=== PATIENT | female | born 1995 | race Caucasian/White ===

== ENCOUNTER 2023-01-09 18:36 | Emergency (ER) | payer MEDICAID, SELFPAY ==
[2023-01-09 18:43] VITALS: BP 144/104; PULSE 133; RESP 18; TEMP 37.5; O2SAT 99; BMI 35.5
[2023-01-09 18:44] VITALS: BP 144/104; O2SAT 97
[2023-01-09 18:53] VITALS: PULSE 133
--- NOTE | 2023-01-09 19:03 | ED.DENTAL1 ---
HPI - Dental/Oral General Chief complaint: Dental/Oral Stated complaint: DENTAL PAIN Time Seen by Provider: 01/09/23 18:57 Source: patient Mode of arrival: ambulance Limitations: no limitations History of Present Illness HPI Narrative: patient is a 27-year-old female who presents to the emergency department for the evaluation of dental pain ongoing for over a week. Patient states she was seen at the [place] emergency department Last week and placed on Keflex. She states she has finished this antibiotic but she has had no improvement in her bilateral dental pain. She does not have a dentist appointment until February. She is not concerned for . She vapes daily. She has been using Motrin and Tylenol without improvement. She denies drainage from the teeth. Related Data Previous Rx's Medication Instructions Recorded clindamycin HCl 150 mg capsule 300 mg PO Q6H 10 days #80 caps 01/09/23 ketorolac 10 mg tablet 10 mg PO TID PRN pain #10 tabs 01/09/23 ondansetron 4 mg disintegrating 4 mg PO Q6H PRN nausea and 01/09/23 tablet vomiting #12 tabs Allergies Allergy/AdvReac Type Severity Reaction Status Date / Time Penicillins Allergy Mild Hives Verified 01/09/23 18:48 ibuprofen AdvReac Mild Verified 01/09/23 18:48 Sulfa (Sulfonamide AdvReac Mild Hives Verified 01/09/23 18:48 Antibiotics) Review of Systems ROS Constitutional Denies: fever or chills Ears, nose, mouth, and throat Denies: throat pain or neck pain Cardiovascular Denies: chest pain Respiratory Denies: shortness of breath or cough Gastrointestinal Denies: nausea or vomiting Integumentary/Breast Denies: rash Neurological Denies: headache Exam Narrative Exam Narrative: Gen.: Awake, alert, in no distress Head: Normocephalic, atraumatic ENT: Moist mucous membranes, generally poor dentition with multiple dental caries. Tenderness of tooth #17 and #32 with root exposed. No visible dental abscess. Soft tissue inflammation noted behind tooth #32 from jagged edge of tooth. No trismus or drooling. No redness or swelling under the tongue. Respiratory: No respiratory distress Cardio: tachycardia Extremities: Moves extremities equally, no injuries noted Psych: Normal mood and affect Neuro: No focal neuro deficit Skin: Warm, dry, intact Constitutional Vital Signs - 24 hr 01/09/23 18:43 01/09/23 19:13 01/09/23 18:44 Temperature 99.5 F Pulse Rate 109 H Pulse Rate [Monitor] 133 H Respiratory Rate 18 Blood Pressure 144/104 H Blood Pressure [Right Arm] 144/104 H Pulse Oximetry 99 98 97 Oxygen Delivery Method Room Air Course Vital Signs Vital signs: Vital Signs Temperature 99.5 F 01/09/23 18:43 Pulse Rate 133 H 01/09/23 18:43 Respiratory Rate 18 01/09/23 18:43 Blood Pressure 144/104 H 01/09/23 18:43 Pulse Oximetry 99 01/09/23 18:43 Oxygen Delivery Method Room Air 01/09/23 18:43 Temperature 99.5 F 01/09/23 18:43 Pulse Rate 109 H 01/09/23 19:13 Respiratory Rate 18 01/09/23 18:43 Blood Pressure 144/104 H 01/09/23 18:44 Pulse Oximetry 98 01/09/23 19:13 Oxygen Delivery Method Room Air 01/09/23 18:43 MDM - Dental/Oral MDM Narrative Medical decision making narrative: heart rate improved in the emergency Department and at discharge, heart rate is 109. patient with no complaints of chest pain or palpitations in the Emergency Room. She'll be treated for dental pain and dental caries, her pharmacy was contacted and she was on Keflex for her dental pain so we will prescribe a more appropriate antibiotic with clindamycin, Toradol and topical analgesia for home. She was given a referral for other dental clinics that may be able to see her earlier. At this time there is no evidence of dental abscess and the patient has no evidence of Ramon angina or other abnormalities in the mouth. Medical Records Attestation: I reviewed the patient's medical records. Discharge Plan Discharge Chief Complaint: Dental/Oral Clinical Impression: Dental caries, Toothache Patient Disposition: Home, Self-Care Time of Disposition Decision: 19:13 Condition: Good Prescriptions / Home Meds: New clindamycin HCl 150 mg capsule 300 mg PO Q6H 10 Days Qty: 80 0RF ketorolac 10 mg tablet 10 mg PO TID PRN (Reason: pain) Qty: 10 0RF ondansetron 4 mg tablet,disintegrating 4 mg PO Q6H PRN (Reason: nausea and vomiting) Qty: 12 0RF Instructions: Toothache (ED) Additional Instructions: Follow up with your dentist Stand Alone Forms: Portal Instructions Referrals: Shaikh Langley MD [Primary Care Provider] - 1 week
[2023-01-09 19:13] VITALS: PULSE 109; O2SAT 98
[2023-01-09] MEDS: KETOROLAC TROMETHAMINE 60 MG/2 ML VIAL IM (19:26)
[2023-01-09] MEDS: BENZOCAINE 30 ML, lidocaine HCL 15 ML MM (19:27)
[2023-01-09] MEDS: HYDROCODONE/ACETAMINOPHEN 5-325 MG TABLET 1 TAB PO (19:27)
== END 2023-01-09 19:46 | disposition home or self-care (01) ==
PROVIDERS: Emergency Provider Emergency Medicine; PCP Internal Medicine
DX: K02.9 Dental caries, unspecified (principal); K08.89 Other specified disorders of teeth and supporting structures; F17.290 Nicotine dependence, other tobacco product, uncomplicated
CPT/HCPCS: 96372; 99284

== ENCOUNTER 2023-01-24 07:35 | Emergency (ER) | payer MEDICAID, SELFPAY ==
[2023-01-24 07:40] VITALS: BP 154/96; PULSE 83; RESP 18; TEMP 36.8; O2SAT 98; BMI 35.5
--- NOTE | 2023-01-24 07:48 | ED_ITS ---
HPI - Abdominal Pain General Chief Complaint: Abdominal Pain Stated Complaint: FLANK PAIN Time Seen by Provider: 01/24/23 07:41 Source: patient Mode of arrival: walk-in History of Present Illness HPI narrative: The patient presented to us with right upper quadrant pain radiating to her flank area that got exacerbated over the last two days but she would have the pain a week ago and she recently was taking antibiotic and pain medication for her dental problem The patient does have some nausea and decreased intake because of the pain she denies any diarrhea She denies any fever chills or any other complaints and she denies any burning with urination Related Data Home Medications Medication Instructions Recorded Confirmed alprazolam 0.5 mg tablet 0.5 mg PO TID PRN anxiety 01/24/23 01/24/23 buspirone 7.5 mg tablet 7.5 mg PO TID 01/24/23 01/24/23 carboxymethyl 0.5 %-glycerin 1 1 drp ophthalmic (eye) Q6H PRN dry 01/24/23 01/24/23 %-polysorb 80 0.5 %-PF eye eye(s) dropperette (Refresh Optive Wes-3 (PF)) levomilnacipran 40 mg capsule,24 40 mg PO DAILY 01/24/23 01/24/23 hr,extended release (Fetzima) loratadine 10 mg tablet 10 mg PO Q24H 01/24/23 01/24/23 paliperidone 9 mg tablet,extended 9 mg PO Q24H 01/24/23 01/24/23 release 24 hr trazodone 150 mg tablet 300 mg PO DAILY PRN insomnia 01/24/23 01/24/23 Previous Rx's Medication Instructions Recorded ondansetron 4 mg disintegrating 4 mg PO Q6H PRN nausea and 01/09/23 tablet vomiting #12 tabs dicyclomine 20 mg tablet 20 mg PO QID PRN abdominal pain 01/24/23 #10 tabs famotidine 20 mg tablet (Pepcid) 20 mg PO BID 5 days #10 tabs 01/24/23 pantoprazole 40 mg granules 40 mg PO DAILY #30 ea 01/24/23 delayed-release for susp in packet (Protonix) Allergies Allergy/AdvReac Type Severity Reaction Status Date / Time Penicillins Allergy Mild Hives Verified 01/24/23 07:43 latex Allergy Unknown Verified 01/24/23 07:43 ibuprofen AdvReac Mild Verified 01/24/23 07:43 Sulfa (Sulfonamide AdvReac Mild Hives Verified 01/24/23 07:43 Antibiotics) Review of Systems ROS Status of ROS 10 or more systems reviewed and unremarkable except as noted in history and below [facility] Social History Smoking status: Never smoker Exam Narrative Exam Narrative: Nurses notes and vital signs reviewed and patient is not hypoxic. General: Well-appearing and in no apparent distress. Skin: Warm, dry, no pallor noted. No rash. Head: Normocephalic, atraumatic. Neck: Supple, non-tender. Eye: Pupils are equal, round and EOMI. No scleral icterus. Ears, Nose, Mouth, and Throat: TM are clear, no nasal mucosal hypertrophy. Oral mucosa is moist, no posterior oropharynx erythema, uvula is mid-line Cardiovascular: Regular Rate and Rhythm without murmur, gallop or rub. Respiratory: No accessory muscle use or respiratory distress. Lungs are clear to auscultation, no wheezing, rales or rhonchi Chest Wall: no tenderness Back: No midline thoracic or lumbar vertebral tenderness. No CVA tenderness Musculoskeletal: normal ROM, no calf or popliteal tenderness, no lower extremity edema/swelling GI: Abdomen is soft, Tenderness. Patient of the upper and lower quadrant of the abdomen with negative Herring and negative McBurney No masses appreciated. No tenderness to palpation. No rebound, guarding, or rigidity noted. Neurological: A&O x4. No cranial nerve dysfunction observed. No truncal ataxia. Moves all extremities. Sensation intact. Psychiatric: Cooperative and interactive. Normal mood and affect. Constitutional Vital Signs, click to edit/add: Last Vital Signs Temp 98.2 F 01/24/23 07:40 Pulse 83 01/24/23 07:40 Resp 18 01/24/23 07:40 BP 154/96 H 01/24/23 07:40 Pulse Ox 98 01/24/23 07:40 O2 Del Method Room Air 01/24/23 07:40 Course Vital Signs Vital signs: Vital Signs Temperature 98.2 F 01/24/23 07:40 Pulse Rate 83 01/24/23 07:40 Respiratory Rate 18 01/24/23 07:40 Blood Pressure 154/96 H 01/24/23 07:40 Pulse Oximetry 98 01/24/23 07:40 Oxygen Delivery Method Room Air 01/24/23 07:40 Temperature 98.2 F 01/24/23 07:40 Pulse Rate 83 01/24/23 07:40 Respiratory Rate 18 01/24/23 07:40 Blood Pressure 154/96 H 01/24/23 07:40 Pulse Oximetry 98 01/24/23 07:40 Oxygen Delivery Method Room Air 01/24/23 07:40 MDM - Abdominal Pain MDM Narrative Medical decision making narrative: The patient's CBC and chemistry showed no significant pathology urinalysis showed no urinary tract infection CAT scan of abdomen and pelvis shows no acute pathology as well and the patient presentation right now is mostly secondary to gastritis Patient was treated in the Emergency Room with gastrointestinal cocktail as well as sucralfate discharge home with Pepcid Protonix as well since of diet with follow-up with her primary care doctor for gastrointestinal referral The patient to come back in case the new symptoms of concern The patient is to followup with primary care physician in next 2-3 days or to return to the emergency department should any of the signs or symptoms worsen or new symptoms develop. The patient agrees with the following Diagnosis and Treatment plan and the patient will be discharged home. Lab Data Labs: Lab Results 01/24/23 01/24/23 Range/Units 07:49 08:07 WBC 10.1 (4.0-11.0) 10^3/uL RBC 4.30 (4.20-5.40) 10^6/uL Hgb 12.6 (12.0-16.0) g/dL Hct 35.7 L (36.0-48.0) % MCV 83.0 (81.0-99.0) fL MCH 29.3 (26.7-34.0) pg MCHC 35.3 H (29.9-35.2) g/dL RDW 11.9 (11.0-15.0) % Plt Count 284 (150-450) 10^3/uL MPV 8.7 L (9.5-13.5) fL Neut % (Auto) 62.9 (43.0-75.0) % Lymph % (Auto) 28.1 (20.5-60.0) % [place] % (Auto) 7.0 (1.7-12.0) % Eos % (Auto) 1.4 (0.9-7.0) % Baso % (Auto) 0.3 (0.2-2.0) % Neut # (Auto) 6.4 (1.4-6.5) 10^3/uL Lymph # (Auto) 2.8 (1.2-3.8) 10^3/uL [place] # (Auto) 0.7 (0.3-0.8) 10^3/uL Eos # (Auto) 0.1 (0.0-0.7) 10^3/uL Baso # (Auto) 0.0 (0.0-0.1) 10^3/uL Abs Immat Gran (auto) 0.03 (0.00-0.03) 10^3/uL Imm/Tot Granulo (auto) 0.3 (0.0-0.5) % Sodium 137 (136-145) mmol/L Potassium 3.9 (3.5-5.1) mmol/L Chloride 102 (98-107) mmol/L Carbon Dioxide 24.4 (21.0-32.0) mmol/L Anion Gap 14.5 BUN 8.0 (7.0-18.0) mg/dL Creatinine 0.80 (0.55-1.02) mg/dL Est GFR ( Amer) >60 (>=60) Est GFR (Non-Af Amer) >60 (>=60) BUN/Creatinine Ratio 10.0 Glucose 112 H (74-106) mg/dL Calcium 9.2 (8.5-10.1) mg/dL Total Bilirubin 0.2 (0.2-1.0) mg/dL AST 21 (15-37) U/L ALT 50 (14-59) U/L Alkaline Phosphatase 139 H (46-116) U/L Troponin I High Sens <4.0 L (4.0-51.3) pg/mL Total Protein 8.0 (6.4-8.2) g/dL Albumin 3.7 (3.4-5.0) g/dL Globulin 4.3 g/dL Albumin/Globulin Ratio 0.9 Lipase 80.0 (73.0-393.0) U/L Urine Color Lt. yellow (YELLOW) Urine Clarity Clear (CLEAR) Urine pH 6.0 (5.0-9.0) Ur Specific [place] 1.020 (1.005-1.025) Urine Protein Negative (NEG/TRACE) mg/dL Urine Glucose (UA) Negative (NEGATIVE) mg/dL Urine Ketones Negative (NEGATIVE) mg/dL Urine Occult Blood Negative (NEGATIVE) Urine Nitrite Negative (NEGATIVE) Urine Bilirubin Negative (NEGATIVE) Urine Urobilinogen 0.2 (0.2-1.0) EU/dL Ur Leukocyte Esterase Negative (NEGATIVE) Discharge Plan Discharge Chief Complaint: Abdominal Pain Clinical Impression: Gastritis Patient Disposition: Home, Self-Care Time of Disposition Decision: 09:23 Condition: Good Prescriptions / Home Meds: New famotidine [Pepcid] 20 mg tablet 20 mg PO BID 5 Days Qty: 10 0RF pantoprazole [Protonix] [address] for susp in packet 40 mg PO DAILY Qty: 30 0RF dicyclomine 20 mg tablet 20 mg PO QID PRN (Reason: abdominal pain) Qty: 10 0RF Discontinued clindamycin HCl 150 mg capsule 300 mg PO Q6H 10 Days Qty: 80 0RF ketorolac 10 mg tablet 10 mg PO TID PRN (Reason: pain) Qty: 10 0RF No Action alprazolam 0.5 mg tablet 0.5 mg PO TID PRN (Reason: anxiety) buspirone 7.5 mg tablet 7.5 mg PO TID Refresh Optive Wes-3 (PF) 0.5-1-0.5 % dropperette 1 drp OPHTHALMIC (EYE) Q6H PRN (Reason: dry eye(s)) Fetzima 40 mg capsule,extended release 24 hr 40 mg PO DAILY loratadine 10 mg tablet 10 mg PO Q24H paliperidone 9 mg tablet extended release 24hr 9 mg PO Q24H trazodone 150 mg tablet 300 mg PO DAILY PRN (Reason: insomnia) ondansetron 4 mg tablet,disintegrating 4 mg PO Q6H PRN (Reason: nausea and vomiting) Qty: 12 0RF Instructions: Gastritis (ED), GI (Gastrointestinal) Soft Diet (ED) Stand Alone Forms: Portal Instructions Referrals: Shaikh Langley MD [Primary Care Provider] - 1 week
--- NOTE | 2023-01-24 07:52 | ECG_ITS ---
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
--- NOTE | 2023-01-24 07:56 | CT_ITS ---
[address] [address] Patient Name: VERNELL CARMEN MRN: [id number] date: 1995 Sex: F Assigned Patient Location: ER Current Patient Location: ER Accession/Order Number: [id number] Exam Date: 01/24/2023 08:28 Report Date: 01/24/2023 09:02 At the request of: MELISSA BOWERS Procedure: CT abdomen pelvis wo con CT abdomen pelvis wo con, 01/24/2023 8:28 AM EDT INDICATION: Right upper quadrant pain and flank pain COMPARISON: Contrast-enhanced CT scan of the abdomen and pelvis 09/18/2021 TECHNIQUE: Axial images of the abdomen and pelvis were obtained without IV contrast. Multiplanar reformatted images were generated and reviewed as needed. Dose reduction techniques were achieved by using automated exposure control and/or adjustment of mA and/or kV according to patient size and/or use of iterative reconstruction technique. FINDINGS: No lobar consolidation or effusion. Cholecystectomy. The liver, pancreas, spleen and adrenals are unremarkable on a non contrast scan. No hydronephrosis or nephrolithiasis. No ureteral or urinary bladder calculi. Uterus and adnexa unremarkable on a noncontrast scan. No aortic aneurysm. No bowel obstruction or acute focal inflammation. Normal appendix. No pneumatosis, pneumoperitoneum or ascites. No mesenteric or retroperitoneal lymphadenopathy. No acute fracture or dislocation. CT/CT abdomen pelvis wo con IMPRESSION: No acute findings. Electronically authenticated by: LAUREN AMAYA Date: 01/24/2023 09:02
[2023-01-24 07:59] LABS: Bilirubin Urine NEGATIVE (NEGATIVE); Blood Urine NEGATIVE (NEGATIVE); Clarity Urine CLEAR (CLEAR); Color Urine LT. YELLOW (YELLOW); Glucose Urine UA NEGATIVE (NEGATIVE); Ketones Urine NEGATIVE (NEGATIVE); Leukocyte Esterase Urine NEGATIVE (NEGATIVE); Nitrite Urine NEGATIVE (NEGATIVE); Protein Urine NEGATIVE (NEG/TRACE); Urobilinogen Urine 0.2 EU/dL (0.2-1.0)
[2023-01-24 08:00] LABS: Urine Microscopic Indicated NO
[2023-01-24] MEDS: 0.9 % SODIUM CHLORIDE 1,000 ML 1000 ML IV (08:16)
[2023-01-24] MEDS: FAMOTIDINE/PF 20 MG/2 ML VIAL IV (08:17)
[2023-01-24] MEDS: MORPHINE SULFATE 2 MG/ML SYRINGE IV (08:17)
[2023-01-24] MEDS: ONDANSETRON PF 4 MG/2 ML VIAL IV (08:17)
[2023-01-24 08:30] LABS: Alanine Aminotransferase 50 U/L (14-59); Albumin Globulin Ratio 0.9; Albumin Level 3.7 g/dL (3.4-5.0); Alkaline Phosphatase 139 U/L (46-116); Anion Gap 14.5; Aspartate Amino Transferase 21 U/L (15-37); Bilirubin Total 0.2 mg/dL (0.2-1.0); Calcium 9.2 mg/dL (8.5-10.1); Carbon Dioxide 24.4 mmol/L (21.0-32.0); Chloride 102 mmol/L (98-107); Estimated GFR (African America >60 (>=60); Estimated GFR (Non-African Ame >60 (>=60); Globulin 4.3 g/dL; Glucose 112 mg/dL (74-106); Potassium 3.9 mmol/L (3.5-5.1); Sodium 137 mmol/L (136-145); Troponin I High Sensitivity <4.0 pg/mL (4.0-51.3)
[2023-01-24 08:35] LABS: Basophils Percent Auto 0.3 % (0.2-2.0); Eosinophils Absolute Auto 0.1 10^3/uL (0.0-0.7); Eosinophils Percent Auto 1.4 % (0.9-7.0); Hematocrit 35.7 % (36.0-48.0); Hemoglobin 12.6 g/dL (12.0-16.0); Immature Granulocytes Abs Auto 0.03 10^3/uL (0.00-0.03); Immature Granulocytes Pct Auto 0.3 % (0.0-0.5); Lymphocytes Absolute Auto 2.8 10^3/uL (1.2-3.8); Lymphocytes Percent Auto 28.1 % (20.5-60.0); Mean Corpuscular HGB Conc 35.3 g/dL (29.9-35.2); Mean Corpuscular Hemoglobin 29.3 pg (26.7-34.0); Mean Platelet Volume 8.7 fL (9.5-13.5); Monocytes Absolute Auto 0.7 10^3/uL (0.3-0.8); Neutrophils Absolute Auto 6.4 10^3/uL (1.4-6.5); Neutrophils Percent Auto 62.9 % (43.0-75.0); Platelet Count 284 10^3/uL (150-450); Red Cell Distribution Width 11.9 % (11.0-15.0); White Blood Count 10.1 10^3/uL (4.0-11.0)
[2023-01-24 09:30] LABS: HCG Qualitative Urine* NEGATIVE (NEGATIVE)
[2023-01-24] MEDS: lidocaine HCL 15 ML, MAG HYDROX/ALUMINUM HYD/SIMETH 30 ML, HYOSCYAMINE SULFATE 0.25 MG PO (09:36)
[2023-01-24 09:37] VITALS: BP 126/90
[2023-01-24] MEDS: SUCRALFATE 1 GM TABLET PO (09:37)
== END 2023-01-24 09:47 | disposition home or self-care (01) ==
PROVIDERS: Emergency Provider Emergency Medicine; PCP Internal Medicine
DX: K29.70 Gastritis, unspecified, without bleeding (principal); Z79.899 Other long term (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 therapy
CPT/HCPCS: 36415; 74176; 80053; 81003; 83690; 84484; 84703; 85025; 93005; 96361; 96374; 96375; 99285

== ENCOUNTER 2023-02-05 15:28 | Emergency (ER) | payer MEDICAID, SELFPAY ==
[2023-02-05 15:32] VITALS: BP 139/106; PULSE 110; RESP 18; TEMP 36.6; O2SAT 98; BMI 35.5
--- NOTE | 2023-02-05 15:47 | ED.DENTAL1 ---
HPI - Dental/Oral General Chief complaint: Dental/Oral Stated complaint: DENTAL PAIN Time Seen by Provider: 02/05/23 15:38 Source: patient Mode of arrival: walk-in Limitations: no limitations History of Present Illness HPI Narrative: patient is a 27-year-old female presents to the emergency department for the evaluation of ongoing dental pain. Patient was seen by myself one month ago for the same symptoms. She denies any new symptoms of swelling or drainage. No fevers or vomiting. She has a broken tooth with root exposure. She continues to smoke. She is not concerned for . She presents to the Emergency Room requesting pain control. She has appointment in two weeks with a dentist. She is ALLERGIC to ibuprofen. Related Data Home Medications Medication Instructions Recorded Confirmed alprazolam 0.5 mg tablet 0.5 mg PO TID PRN anxiety 01/24/23 01/24/23 buspirone 7.5 mg tablet 7.5 mg PO TID 01/24/23 01/24/23 carboxymethyl 0.5 %-glycerin 1 1 drp ophthalmic (eye) Q6H PRN dry 01/24/23 01/24/23 %-polysorb 80 0.5 %-PF eye eye(s) dropperette (Refresh Optive Wes-3 (PF)) levomilnacipran 40 mg capsule,24 40 mg PO DAILY 01/24/23 01/24/23 hr,extended release (Fetzima) loratadine 10 mg tablet 10 mg PO Q24H 01/24/23 01/24/23 paliperidone 9 mg tablet,extended 9 mg PO Q24H 01/24/23 01/24/23 release 24 hr trazodone 150 mg tablet 300 mg PO DAILY PRN insomnia 01/24/23 01/24/23 Previous Rx's Medication Instructions Recorded ondansetron 4 mg disintegrating 4 mg PO Q6H PRN nausea and 01/09/23 tablet vomiting #12 tabs dicyclomine 20 mg tablet 20 mg PO QID PRN abdominal pain 01/24/23 #10 tabs famotidine 20 mg tablet (Pepcid) 20 mg PO BID 5 days #10 tabs 01/24/23 pantoprazole 40 mg granules 40 mg PO DAILY #30 ea 01/24/23 delayed-release for susp in packet (Protonix) ondansetron 4 mg disintegrating 4 mg PO Q6H PRN nausea and 02/05/23 tablet vomiting #12 tabs Allergies Allergy/AdvReac Type Severity Reaction Status Date / Time Penicillins Allergy Mild Hives Verified 02/05/23 15:35 latex Allergy Unknown Verified 02/05/23 15:35 ibuprofen AdvReac Mild Verified 02/05/23 15:35 Sulfa (Sulfonamide AdvReac Mild Hives Verified 02/05/23 15:35 Antibiotics) Review of Systems ROS Constitutional Denies: fever or chills Ears, nose, mouth, and throat Denies: throat pain Cardiovascular Denies: chest pain Respiratory Denies: shortness of breath or cough Gastrointestinal Denies: nausea or vomiting Genitourinary Denies: painful urination Musculoskeletal Denies: back pain Integumentary/Breast Denies: rash Neurological Denies: headache PFSH PFSH Social History Smoking status: Former smoker Exam Narrative Exam Narrative: Gen.: Awake, alert, in no distress Head: Normocephalic, atraumatic ENT: Moist mucous membranes, multiple dental caries with tooth #18 eroded and root exposed. No visible abscess, no swelling or redness under the tongue. No trismus or drooling. Clear speech. Respiratory: No respiratory distress Extremities: Moves extremities equally, no injuries noted Psych: Normal mood and affect Neuro: No focal neuro deficit Skin: Warm, dry, intact Constitutional Vital Signs, click to edit/add: Last Vital Signs Temp 97.9 F 02/05/23 15:32 Pulse 110 H 02/05/23 15:32 Resp 18 02/05/23 15:32 BP 139/106 H 02/05/23 15:32 Pulse Ox 98 02/05/23 15:32 O2 Del Method Room Air 02/05/23 15:32 Course Vital Signs Vital signs: Vital Signs Temperature 97.9 F 02/05/23 15:32 Pulse Rate 110 H 02/05/23 15:32 Respiratory Rate 18 02/05/23 15:32 Blood Pressure 139/106 H 02/05/23 15:32 Pulse Oximetry 98 02/05/23 15:32 Oxygen Delivery Method Room Air 02/05/23 15:32 Temperature 97.9 F 02/05/23 15:32 Pulse Rate 110 H 02/05/23 15:32 Respiratory Rate 18 02/05/23 15:32 Blood Pressure 139/106 H 02/05/23 15:32 Pulse Oximetry 98 02/05/23 15:32 Oxygen Delivery Method Room Air 02/05/23 15:32 MDM - Dental/Oral MDM Narrative Medical decision making narrative: dental analgesia applied, patient given a pain medication in the Emergency Roomm. She is discharged home to continue topical analgesia. Follow-up with dentist and return to the Emergency Room symptoms change or worsen. I, Dr Hoang, have reviewed the above progress note and course of action in the ER; agree with the above. I have personally Discussed this patient with the PA, gone over history and physical, and discussed disposition and treatment plan with the PA Discharge Plan Discharge Chief Complaint: Dental/Oral Clinical Impression: Dental caries, Toothache Patient Disposition: Home, Self-Care Time of Disposition Decision: 15:45 Condition: Good Prescriptions / Home Meds: New ondansetron 4 mg tablet,disintegrating 4 mg PO Q6H PRN (Reason: nausea and vomiting) Qty: 12 0RF No Action alprazolam 0.5 mg tablet 0.5 mg PO TID PRN (Reason: anxiety) buspirone 7.5 mg tablet 7.5 mg PO TID Refresh Optive Wes-3 (PF) 0.5-1-0.5 % dropperette 1 drp OPHTHALMIC (EYE) Q6H PRN (Reason: dry eye(s)) Fetzima 40 mg capsule,extended release 24 hr 40 mg PO DAILY loratadine 10 mg tablet 10 mg PO Q24H paliperidone 9 mg tablet extended release 24hr 9 mg PO Q24H trazodone 150 mg tablet 300 mg PO DAILY PRN (Reason: insomnia) famotidine [Pepcid] 20 mg tablet 20 mg PO BID 5 Days Qty: 10 0RF pantoprazole [Protonix] [address] for susp in packet 40 mg PO DAILY Qty: 30 0RF dicyclomine 20 mg tablet 20 mg PO QID PRN (Reason: abdominal pain) Qty: 10 0RF ondansetron 4 mg tablet,disintegrating 4 mg PO Q6H PRN (Reason: nausea and vomiting) Qty: 12 0RF Instructions: Toothache (ED) Additional Instructions: Follow up dentist as scheduled Stand Alone Forms: Portal Instructions Referrals: Shaikh Langley MD [Primary Care Provider] - 1 week Discharge Date/Time: 02/05/23 16:26
[2023-02-05] MEDS: HYDROCODONE/ACETAMINOPHEN 5-325 MG TABLET 1 TAB PO (16:16)
[2023-02-05] MEDS: BENZOCAINE 30 ML, lidocaine HCL 15 ML MM ×2 (16:16→16:17)
== END 2023-02-05 16:26 | disposition home or self-care (01) ==
PROVIDERS: Emergency Provider Emergency Medicine; PCP Internal Medicine
DX: K02.9 Dental caries, unspecified (principal); F17.210 Nicotine dependence, cigarettes, uncomplicated; Z79.899 Other long term (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 therapy
CPT/HCPCS: 99283

== ENCOUNTER 2023-02-18 16:05 | Outpatient (OUT) | payer MEDICAID, SELFPAY ==
[2023-02-18 16:43] LABS: Estimated Average Glucose 91 mg/dL; Glycohemoglobin A1C 4.8 % (4.5-6.2)
[2023-02-18 16:44] LABS: Alanine Aminotransferase 185 U/L (14-59); Albumin Globulin Ratio 0.9; Albumin Level 3.5 g/dL (3.4-5.0); Alkaline Phosphatase 232 U/L (46-116); Anion Gap 13.3; Aspartate Amino Transferase 63 U/L (15-37); BUN Creatinine Ratio 9.7; Bilirubin Total 0.2 mg/dL (0.2-1.0); Calcium 8.9 mg/dL (8.5-10.1); Carbon Dioxide 26.4 mmol/L (21.0-32.0); Chloride 102 mmol/L (98-107); Estimated GFR (African America >60 (>=60); Estimated GFR (Non-African Ame >60 (>=60); Globulin 4.1 g/dL; Glucose 116 mg/dL (74-106); Potassium 3.7 mmol/L (3.5-5.1); Sodium 138 mmol/L (136-145); Total Protein 7.6 g/dL (6.4-8.2)
== END 2023-02-18 16:06 | disposition home or self-care (01) ==
PROVIDERS: PCP Internal Medicine; Visit Provider Internal Medicine
DX: K52.9 Noninfective gastroenteritis and colitis, unspecified (principal); Z13.1 Encounter for screening for diabetes mellitus
CPT/HCPCS: 36415; 80053; 83036

== ENCOUNTER 2023-03-22 15:31 | Emergency (ER) | payer MEDICAID, SELFPAY ==
[2023-03-22 15:37] VITALS: BP 115/87; PULSE 105; RESP 18; TEMP 36.5; O2SAT 98; BMI 39.1
[2023-03-22 18:46] LABS: HCG Qualitative Urine* NEGATIVE (NEGATIVE)
[2023-03-22 18:47] LABS: Bilirubin Urine NEGATIVE (NEGATIVE); Blood Urine NEGATIVE (NEGATIVE); Clarity Urine CLEAR (CLEAR); Color Urine LT. YELLOW (YELLOW); Glucose Urine UA NEGATIVE (NEGATIVE); Ketones Urine NEGATIVE (NEGATIVE); Leukocyte Esterase Urine NEGATIVE (NEGATIVE); Nitrite Urine NEGATIVE (NEGATIVE); Protein Urine NEGATIVE (NEG/TRACE); Urobilinogen Urine 0.2 EU/dL (0.2-1.0)
[2023-03-22 18:49] LABS: Urine Microscopic Indicated NO
--- NOTE | 2023-03-22 19:17 | XR_ITS ---
The [address] [address] Patient Name: VERNELL CARMEN MRN: [id number] date: 1995 Sex: F Assigned Patient Location: ER Current Patient Location: ER Accession/Order Number: [id number] Exam Date: 03/22/2023 19:42 Report Date: 03/22/2023 19:57 At the request of: SKIP KELLEY Procedure: XR acute abdomen series EXAMINATION: XR acute abdomen series HISTORY: Vomiting and diarrhea COMPARISON: None. TECHNIQUE: 4 views FINDINGS: The lung parenchyma is free of consolidation or infiltrate. No pneumothorax or pleural effusion. The cardiac, mediastinal and hilar contours are normal. Surgical clips within the right upper quadrant. The bowel gas pattern is nonobstructed. The visualized osseous structures exhibit no gross abnormality. XR/XR acute abdomen series IMPRESSION: No acute abnormality. Electronically authenticated by: DANNI QUINONES Date: 03/22/2023 19:57
[2023-03-22 19:19] LABS: Basophils Percent Auto 0.2 % (0.2-2.0); Eosinophils Absolute Auto 0.2 10^3/uL (0.0-0.7); Eosinophils Percent Auto 1.7 % (0.9-7.0); Hematocrit 35.7 % (36.0-48.0); Hemoglobin 12.3 g/dL (12.0-16.0); Immature Granulocytes Abs Auto 0.05 10^3/uL (0.00-0.03); Immature Granulocytes Pct Auto 0.5 % (0.0-0.5); Lymphocytes Absolute Auto 3.1 10^3/uL (1.2-3.8); Lymphocytes Percent Auto 31.3 % (20.5-60.0); Mean Corpuscular HGB Conc 34.5 g/dL (29.9-35.2); Mean Corpuscular Hemoglobin 28.9 pg (26.7-34.0); Mean Platelet Volume 8.7 fL (9.5-13.5); Monocytes Absolute Auto 0.6 10^3/uL (0.3-0.8); Monocytes Percent Auto 5.9 % (1.7-12.0); Neutrophils Percent Auto 60.4 % (43.0-75.0); Platelet Count 285 10^3/uL (150-450); Red Blood Count 4.25 10^6/uL (4.20-5.40); Red Cell Distribution Width 11.9 % (11.0-15.0); White Blood Count 9.9 10^3/uL (4.0-11.0)
[2023-03-22 19:35] LABS: Alanine Aminotransferase 74 U/L (14-59); Albumin Globulin Ratio 0.9; Albumin Level 3.7 g/dL (3.4-5.0); Alkaline Phosphatase 181 U/L (46-116); Anion Gap 15.3; Aspartate Amino Transferase 37 U/L (15-37); BUN Creatinine Ratio 8.1; Bilirubin Direct 0.1 mg/dL (0.0-0.2); Bilirubin Total 0.2 mg/dL (0.2-1.0); Calcium 8.6 mg/dL (8.5-10.1); Chloride 106 mmol/L (98-107); Estimated GFR (African America >60 (>=60); Estimated GFR (Non-African Ame >60 (>=60); Globulin 4.2 g/dL; Glucose 100 mg/dL (74-106); Potassium 3.3 mmol/L (3.5-5.1); Sodium 142 mmol/L (136-145); Total Protein 7.9 g/dL (6.4-8.2)
[2023-03-22 19:37] LABS: Lactate/Lactic Acid 1.1 mmol/L (0.4-2.0)
[2023-03-22] MEDS: 0.9 % SODIUM CHLORIDE 1,000 ML 1000 ML IV (19:40)
--- NOTE | 2023-03-22 20:33 | ED.GENADUL1 ---
HPI - General Adult General Chief complaint: Abdominal Pain Stated complaint: Abdominal Pain, Diarrhea Time Seen by Provider: 03/22/23 19:08 Source: patient Mode of arrival: walk-in Limitations: no limitations History of Present Illness HPI narrative: Developed diarrhea 5 days ago and then this morning she vomited. The patient said that her significant other had diarrhea for two weeks before it stopped. The patient denied any antibiotic use and denied and recent travel. She had been eating and taking in extra fluids orally since the symptoms started until she vomited this morning. She complains of upper abdominal pain. No history of pancreatitis, UC, Crohn's or IBS but she was previously diagnosed with gastritis. No fever or chills. Related Data Home Medications Medication Instructions Recorded Confirmed alprazolam 0.5 mg tablet 0.5 mg PO TID PRN anxiety 01/24/23 01/24/23 buspirone 7.5 mg tablet 7.5 mg PO TID 01/24/23 01/24/23 carboxymethyl 0.5 %-glycerin 1 1 drp ophthalmic (eye) Q6H PRN dry 01/24/23 01/24/23 %-polysorb 80 0.5 %-PF eye eye(s) dropperette (Refresh Optive Wes-3 (PF)) levomilnacipran 40 mg capsule,24 40 mg PO DAILY 01/24/23 01/24/23 hr,extended release (Fetzima) loratadine 10 mg tablet 10 mg PO Q24H 01/24/23 01/24/23 paliperidone 9 mg tablet,extended 9 mg PO Q24H 01/24/23 01/24/23 release 24 hr trazodone 150 mg tablet 300 mg PO DAILY PRN insomnia 01/24/23 01/24/23 Previous Rx's Medication Instructions Recorded ondansetron 4 mg disintegrating 4 mg PO Q6H PRN nausea and 01/09/23 tablet vomiting #12 tabs dicyclomine 20 mg tablet 20 mg PO QID PRN abdominal pain 01/24/23 #10 tabs famotidine 20 mg tablet (Pepcid) 20 mg PO BID 5 days #10 tabs 01/24/23 pantoprazole 40 mg granules 40 mg PO DAILY #30 ea 01/24/23 delayed-release for susp in packet (Protonix) ondansetron 4 mg disintegrating 4 mg PO Q6H PRN nausea and 02/05/23 tablet vomiting #12 tabs ondansetron 4 mg disintegrating 4 mg PO Q6H PRN nausea and 03/22/23 tablet vomiting #20 tabs Allergies Allergy/AdvReac Type Severity Reaction Status Date / Time Penicillins Allergy Mild Hives Verified 02/05/23 15:35 latex Allergy Unknown Verified 02/05/23 15:35 ibuprofen AdvReac Mild Verified 02/05/23 15:35 Sulfa (Sulfonamide AdvReac Mild Hives Verified 02/05/23 15:35 Antibiotics) PFSH [facility] Social History Smoking status: Current every day smoker Exam Narrative Exam Narrative: Nurses notes and vital signs reviewed and patient is not hypoxic. afebrile General: Well-appearing and in no apparent distress. Skin: Warm, dry, no pallor noted. No rash. Head: Normocephalic, atraumatic. Eye: Pupils are equal, round and EOMI. No scleral icterus. Ears, Nose, Mouth, and Throat: Oral mucosa is dry Cardiovascular: Regular Rate and Rhythm without murmur, gallop or rub. Respiratory: No accessory muscle use or respiratory distress. Lungs are clear to auscultation, no wheezing, rales or rhonchi Back: No CVA tenderness Musculoskeletal: normal ROM GI: Abdomen is soft, non-distended. Normal bowel sounds. No masses appreciated. Epigastric tenderness to palpation. No rebound, guarding, or rigidity noted. Neurological: A&O x4. No cranial nerve dysfunction observed. No truncal ataxia. Moves all extremities. Sensation intact. Psychiatric: Cooperative and interactive. Normal mood and affect. Constitutional Vital Signs, click to edit/add: Last Vital Signs Temp 97.7 F 03/22/23 15:37 Pulse 105 H 03/22/23 15:37 Resp 18 03/22/23 15:37 BP 115/87 03/22/23 15:37 Pulse Ox 98 03/22/23 15:37 O2 Del Method Room Air 03/22/23 15:37 Course Vital Signs Vital signs: Vital Signs Temperature 97.7 F 03/22/23 15:37 Pulse Rate 105 H 03/22/23 15:37 Respiratory Rate 18 03/22/23 15:37 Blood Pressure 115/87 03/22/23 15:37 Pulse Oximetry 98 03/22/23 15:37 Oxygen Delivery Method Room Air 03/22/23 15:37 Temperature 97.7 F 03/22/23 15:37 Pulse Rate 105 H 03/22/23 15:37 Respiratory Rate 18 03/22/23 15:37 Blood Pressure 115/87 03/22/23 15:37 Pulse Oximetry 98 03/22/23 15:37 Oxygen Delivery Method Room Air 03/22/23 15:37 Medical Decision Making MDM Narrative Medical decision making narrative: referral IV established and blood drawn and sent for testing. Urinalysis was negative. CBC is unremarkable. CMP notable for slight elevation of LFTs and slight decrease in potassium to 3.3. No acute abnormality identified on the abdominal x-rays. The patient is unable to give us a stool sample to send for gastrointestinal panel. Patient received a liter of normal saline IV fluid, IV Zofran and IV Protonix. She was discharged home. She has a few ODT zofran at home - I uinstructed her to take those, maintain a clear liquid diet until no vomiting for 12 horus and then BRAT diet and soft bland foods until diarrhea stops. Prescribed additional zofran to take as needed. Lab Data Lab results reviewed: Yes I reviewed the patient's lab results Labs: Lab Results 03/22/23 03/22/23 Range/Units 18:00 19:00 WBC 9.9 (4.0-11.0) 10^3/uL RBC 4.25 (4.20-5.40) 10^6/uL Hgb 12.3 (12.0-16.0) g/dL Hct 35.7 L (36.0-48.0) % MCV 84.0 (81.0-99.0) fL MCH 28.9 (26.7-34.0) pg MCHC 34.5 (29.9-35.2) g/dL RDW 11.9 (11.0-15.0) % Plt Count 285 (150-450) 10^3/uL MPV 8.7 L (9.5-13.5) fL Neut % (Auto) 60.4 (43.0-75.0) % Lymph % (Auto) 31.3 (20.5-60.0) % [place] % (Auto) 5.9 (1.7-12.0) % Eos % (Auto) 1.7 (0.9-7.0) % Baso % (Auto) 0.2 (0.2-2.0) % Neut # (Auto) 6.0 (1.4-6.5) 10^3/uL Lymph # (Auto) 3.1 (1.2-3.8) 10^3/uL [place] # (Auto) 0.6 (0.3-0.8) 10^3/uL Eos # (Auto) 0.2 (0.0-0.7) 10^3/uL Baso # (Auto) 0.0 (0.0-0.1) 10^3/uL Abs Immat Gran (auto) 0.05 H (0.00-0.03) 10^3/uL Imm/Tot Granulo (auto) 0.5 (0.0-0.5) % Sodium 142 (136-145) mmol/L Potassium 3.3 L (3.5-5.1) mmol/L Chloride 106 (98-107) mmol/L Carbon Dioxide 24.0 (21.0-32.0) mmol/L Anion Gap 15.3 BUN 6.0 L (7.0-18.0) mg/dL Creatinine 0.74 (0.55-1.02) mg/dL Est GFR ( Amer) >60 (>=60) Est GFR (Non-Af Amer) >60 (>=60) BUN/Creatinine Ratio 8.1 Glucose 100 (74-106) mg/dL Lactate 1.1 (0.4-2.0) mmol/L Calcium 8.6 (8.5-10.1) mg/dL Total Bilirubin 0.2 (0.2-1.0) mg/dL Direct Bilirubin 0.1 (0.0-0.2) mg/dL AST 37 (15-37) U/L ALT 74 H (14-59) U/L Alkaline Phosphatase 181 H (46-116) U/L Total Protein 7.9 (6.4-8.2) g/dL Albumin 3.7 (3.4-5.0) g/dL Globulin 4.2 g/dL Albumin/Globulin Ratio 0.9 Lipase 56.0 L (73.0-393.0) U/L Urine Color Lt. yellow (YELLOW) Urine Clarity Clear (CLEAR) Urine pH 6.0 (5.0-9.0) Ur Specific [place] 1.010 (1.005-1.025) Urine Protein Negative (NEG/TRACE) mg/dL Urine Glucose (UA) Negative (NEGATIVE) mg/dL Urine Ketones Negative (NEGATIVE) mg/dL Urine Occult Blood Negative (NEGATIVE) Urine Nitrite Negative (NEGATIVE) Urine Bilirubin Negative (NEGATIVE) Urine Urobilinogen 0.2 (0.2-1.0) EU/dL Ur Leukocyte Esterase Negative (NEGATIVE) Urine HCG, Qual Negative (NEGATIVE) Imaging Data Abdominal x-ray: Radiologist's impression: Patient Name: VENRELL CARMEN MRN: [id number] date: 1995 Sex: F Assigned Patient Location: ER Current Patient Location: ER Accession/Order Number: [id number] Exam Date: 03/22/2023 19:42 Report Date: 03/22/2023 19:57 At the request of: SKIP KELLEY Procedure: XR acute abdomen series EXAMINATION: XR acute abdomen series HISTORY: Vomiting and diarrhea COMPARISON: None. TECHNIQUE: 4 views FINDINGS: The lung parenchyma is free of consolidation or infiltrate. No pneumothorax or pleural effusion. The cardiac, mediastinal and hilar contours are normal. Surgical clips within the right upper quadrant. The bowel gas pattern is nonobstructed. The visualized osseous structures exhibit no gross abnormality. IMPRESSION: No acute abnormality. Electronically authenticated by: DANNI QUINONES Date: 03/22/2023 19:57 Discharge Plan Discharge Chief Complaint: Abdominal Pain Clinical Impression: Gastroenteritis Patient Disposition: Home, Self-Care Time of Disposition Decision: 20:42 Prescriptions / Home Meds: New ondansetron 4 mg tablet,disintegrating 4 mg PO Q6H PRN (Reason: nausea and vomiting) Qty: 20 0RF No Action alprazolam 0.5 mg tablet 0.5 mg PO TID PRN (Reason: anxiety) buspirone 7.5 mg tablet 7.5 mg PO TID Refresh Optive Wes-3 (PF) 0.5-1-0.5 % dropperette 1 drp OPHTHALMIC (EYE) Q6H PRN (Reason: dry eye(s)) Fetzima 40 mg capsule,extended release 24 hr 40 mg PO DAILY loratadine 10 mg tablet 10 mg PO Q24H paliperidone 9 mg tablet extended release 24hr 9 mg PO Q24H trazodone 150 mg tablet 300 mg PO DAILY PRN (Reason: insomnia) famotidine [Pepcid] 20 mg tablet 20 mg PO BID 5 Days Qty: 10 0RF pantoprazole [Protonix] [address] for susp in packet 40 mg PO DAILY Qty: 30 0RF dicyclomine 20 mg tablet 20 mg PO QID PRN (Reason: abdominal pain) Qty: 10 0RF ondansetron 4 mg tablet,disintegrating 4 mg PO Q6H PRN (Reason: nausea and vomiting) Qty: 12 0RF ondansetron 4 mg tablet,disintegrating 4 mg PO Q6H PRN (Reason: nausea and vomiting) Qty: 12 0RF Instructions: Acute Nausea and Vomiting (ED), Acute Diarrhea (ED) Stand Alone Forms: Portal Instructions Referrals: Shaikh Langley MD [Primary Care Provider] - 1 week Discharge Date/Time: 03/22/23 21:07
[2023-03-22] MEDS: ONDANSETRON PF 4 MG/2 ML VIAL IV (20:58)
[2023-03-22] MEDS: PANTOPRAZOLE SODIUM 40 MG VIAL IV (20:58)
== END 2023-03-22 21:07 | disposition home or self-care (01) ==
PROVIDERS: Emergency Medicine; Emergency Provider Emergency Medicine; PCP Internal Medicine
DX: K52.9 Noninfective gastroenteritis and colitis, unspecified (principal); Z79.899 Other long term (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 therapy; F17.210 Nicotine dependence, cigarettes, uncomplicated
CPT/HCPCS: 36415; 74022; 80053; 80076; 81003; 83605; 83690; 84703; 85025; 87507; 96361; 96374; 96375; 99285

== ENCOUNTER 2023-04-21 19:06 | Emergency (ER) | payer MEDICAID, SELFPAY ==
[2023-04-21 19:10] VITALS: BP 134/96; PULSE 95; RESP 18; TEMP 36.9; O2SAT 98; BMI 38.7
--- NOTE | 2023-04-21 19:27 | ED_ITS ---
HPI - General Adult General Chief complaint: Abdominal Pain Stated complaint: STOMACH ACHE Time Seen by Provider: 04/21/23 19:08 Source: patient Mode of arrival: walk-in History of Present Illness HPI narrative: Patient is a 27 year female presents to the Emergency Room with concerns of nausea and vomiting and diarrhea. Patient states she's had symptoms for two weeks. Mostly in the mornings with nausea and vomiting. She denies chance of stating that she is currently on her menstrual cycle. Patient reports abdominal discomfort intermittently, prior history of cholecystectomy. She denies any alcohol or drug use. Denies marijuana use, does use of a vaping pen. Patient has remote history of liver laceration from trauma prior to her cholecystectomy. patient denies any dysuria or vaginal discharge. patient has multiple poor dentition and has scheduled. Multiple dental extractions at the end of the month. She has had multiple Emergency Room visits for antibiotics. Related Data Home Medications Medication Instructions Recorded Confirmed alprazolam 0.5 mg tablet 0.5 mg PO TID PRN anxiety 01/24/23 04/21/23 carboxymethyl 0.5 %-glycerin 1 1 drp ophthalmic (eye) Q6H PRN dry 01/24/23 04/21/23 %-polysorb 80 0.5 %-PF eye eye(s) dropperette (Refresh Optive Wes-3 (PF)) levomilnacipran 40 mg capsule,24 40 mg PO DAILY 01/24/23 04/21/23 hr,extended release (Fetzima) loratadine 10 mg tablet 10 mg PO Q24H 01/24/23 04/21/23 paliperidone 9 mg tablet,extended 9 mg PO Q24H 01/24/23 04/21/23 release 24 hr trazodone 150 mg tablet 300 mg PO DAILY PRN insomnia 01/24/23 04/21/23 Previous Rx's Medication Instructions Recorded ondansetron 4 mg disintegrating 4 mg PO Q6H PRN nausea and 01/09/23 tablet vomiting #12 tabs dicyclomine 20 mg tablet 20 mg PO QID PRN abdominal pain 01/24/23 #10 tabs famotidine 20 mg tablet (Pepcid) 20 mg PO BID 5 days #10 tabs 01/24/23 pantoprazole 40 mg granules 40 mg PO DAILY #30 ea 01/24/23 delayed-release for susp in packet (Protonix) ondansetron 4 mg disintegrating 4 mg PO Q6H PRN nausea and 02/05/23 tablet vomiting #12 tabs ondansetron 4 mg disintegrating 4 mg PO Q6H PRN nausea and 03/22/23 tablet vomiting #20 tabs cephalexin 500 mg capsule 500 mg PO BID 7 days #14 caps 04/21/23 ondansetron HCl 4 mg tablet 4 mg PO Q6H PRN nausea and 04/21/23 vomiting #12 tabs Allergies Allergy/AdvReac Type Severity Reaction Status Date / Time Penicillins Allergy Mild Hives Verified 04/21/23 19:13 latex Allergy Unknown Verified 04/21/23 19:13 ibuprofen AdvReac Mild Verified 04/21/23 19:13 Sulfa (Sulfonamide AdvReac Mild Hives Verified 04/21/23 19:13 Antibiotics) Review of Systems ROS Constitutional Denies: fever, chills or change in weight Ears, nose, mouth, and throat Denies: throat pain or neck pain Cardiovascular Denies: chest pain, palpitations or edema Respiratory Denies: shortness of breath or cough Gastrointestinal Reports: abdominal pain, nausea, vomiting and diarrhea Genitourinary Reports: painful urination (today) Musculoskeletal Denies: back pain or neck pain Neurological Reports: headache (very mild) Psychiatric Denies: anxiety or mood swings [facility] Social History Smoking status: Current every day smoker Exam Narrative Exam Narrative: Nurses notes and vital signs reviewed and patient is not hypoxic. General: The patient appears well and in no apparent distress. Patient is resting comfortably on cart. Skin: Warm, dry, no pallor noted.no evidence of rash Head: Normocephalic, atraumatic Neck: Supple, trachea mid-line, no tenderness, no lymphadenopathy Eye: Pupils are equal, round and reactive to light, EOMI Ears, Nose, Mouth, and Throat: TM are clear, normal light reflex, oral mucosa is moist, no posterior oropharynx erythema or hypertrophy, uvula is mid-line, multiple dental caries, no acute abscess appreciated. Multiple molars eroded to the gumline. Cardiovascular: Regular Rate and Rhythm Respiratory: Patient is in no distress, no accessory muscle use, lungs are clear to auscultation, no wheezing, rales or rhonchi. Chest Wall: no tenderness Back: non-tender, no CVA tenderness Musculoskeletal: normal ROM, no tenderness, no swelling GI: Normal bowel sounds, generalized tenderness, no guarding or rebound. no masses appreciated. No rebound, guarding, or rigidity noted. Neurological: A&O x4 Psychiatric: Cooperative Constitutional Vital Signs, click to edit/add: Last Vital Signs Temp 98.4 F 04/21/23 19:10 Pulse 95 H 04/21/23 19:10 Resp 18 04/21/23 19:10 BP 134/96 H 04/21/23 19:10 Pulse Ox 98 04/21/23 19:35 O2 Del Method Room Air 04/21/23 19:35 Course Vital Signs Vital signs: Vital Signs Temperature 98.4 F 04/21/23 19:10 Pulse Rate 95 H 04/21/23 19:10 Respiratory Rate 18 04/21/23 19:10 Blood Pressure 134/96 H 04/21/23 19:10 Pulse Oximetry 98 04/21/23 19:10 Oxygen Delivery Method Room Air 04/21/23 19:10 Temperature 98.4 F 04/21/23 19:10 Pulse Rate 95 H 04/21/23 19:10 Respiratory Rate 18 04/21/23 19:10 Blood Pressure 134/96 H 04/21/23 19:10 Pulse Oximetry 98 04/21/23 19:35 Oxygen Delivery Method Room Air 04/21/23 19:35 Medical Decision Making MDM Narrative Medical decision making narrative: patient currently on her menstrual cycle, urinalysis concerning for possible infection but the possibility of contamination was discussed. Patient admits to having discomfort with urination for the past three days, was seen at Emergency Room three weeks ago in [place] but they did not treat her for urinary tract infection. Patient states she has not taken the antibiotic and a couple months regarding her teeth are getting pulled at the end of the month. We discussed a prescription for Zofran for her morning nausea, her test was negative. Her abdomen is nonsurgical. We discussed her recent antibiotic use and recommend a probiotic or yogurt with to limit any potential side effects. Patient will call in in 2-3 days to check the status of her urine culture to discuss with her family doctor. Patient has tolerated Keflex in the past with her ALLERGIES reviewed. The patient is to followup with primary care physician in next 2-3 days or to return to the emergency department should any of the signs or symptoms worsen or new symptoms develop. Patient had questions answered. The patient agrees with the following Diagnosis and Treatment plan and the patient will be discharged home. Lab Data Lab results reviewed: Yes I reviewed the patient's lab results Labs: Lab Results 04/21/23 04/21/23 Range/Units 19:15 19:25 WBC 10.9 (4.0-11.0) 10^3/uL RBC 4.50 (4.20-5.40) 10^6/uL Hgb 13.2 (12.0-16.0) g/dL Hct 38.3 (36.0-48.0) % MCV 85.1 (81.0-99.0) fL MCH 29.3 (26.7-34.0) pg MCHC 34.5 (29.9-35.2) g/dL RDW 11.9 (11.0-15.0) % Plt Count 376 (150-450) 10^3/uL MPV 9.0 L (9.5-13.5) fL Neut % (Auto) 54.9 (43.0-75.0) % Lymph % (Auto) 36.9 (20.5-60.0) % [place] % (Auto) 6.4 (1.7-12.0) % Eos % (Auto) 1.0 (0.9-7.0) % Baso % (Auto) 0.4 (0.2-2.0) % Neut # (Auto) 6.0 (1.4-6.5) 10^3/uL Lymph # (Auto) 4.0 H (1.2-3.8) 10^3/uL [place] # (Auto) 0.7 (0.3-0.8) 10^3/uL Eos # (Auto) 0.1 (0.0-0.7) 10^3/uL Baso # (Auto) 0.0 (0.0-0.1) 10^3/uL Abs Immat Gran (auto) 0.04 H (0.00-0.03) 10^3/uL Imm/Tot Granulo (auto) 0.4 (0.0-0.5) % Sodium 135 L (136-145) mmol/L Potassium 3.3 L (3.5-5.1) mmol/L Chloride 102 (98-107) mmol/L Carbon Dioxide 23.8 (21.0-32.0) mmol/L Anion Gap 12.5 BUN 8.0 (7.0-18.0) mg/dL Creatinine 0.75 (0.55-1.02) mg/dL Est GFR ( Amer) >60 (>=60) Est GFR (Non-Af Amer) >60 (>=60) BUN/Creatinine Ratio 10.7 Glucose 108 H (74-106) mg/dL Calcium 8.8 (8.5-10.1) mg/dL Total Bilirubin 0.5 (0.2-1.0) mg/dL AST 35 (15-37) U/L ALT 53 (14-59) U/L Alkaline Phosphatase 185 H (46-116) U/L Total Protein 8.5 H (6.4-8.2) g/dL Albumin 3.7 (3.4-5.0) g/dL Globulin 4.8 g/dL Albumin/Globulin Ratio 0.8 Urine Color Dk. red (YELLOW) Urine Clarity Clear (CLEAR) Urine pH 5.5 (5.0-9.0) Ur Specific [place] >=1.030 A (1.005-1.025) Urine Protein 100 A (NEG/TRACE) mg/dL Urine Glucose (UA) Negative (NEGATIVE) mg/dL Urine Ketones Negative (NEGATIVE) mg/dL Urine Occult Blood Large A (NEGATIVE) Urine Nitrite Negative (NEGATIVE) Urine Bilirubin Small A (NEGATIVE) Urine Urobilinogen 1.0 (0.2-1.0) EU/dL Ur Leukocyte Esterase Trace A (NEGATIVE) Urine RBC 50-75 A (0-2) #/HPF Urine WBC None seen (NONE SEEN) #/HPF Ur Squamous Epith Cells Rare (NONE/RARE) #/LPF Urine Crystals None seen (None Seen) #/HPF Urine Bacteria Moderate A (NONE SEEN) #/HPF Urine Casts None seen (NONE SEEN) #/LPF Urine Mucus None seen (NONE SEEN) Ur Culture Indicated? Yes Discharge Plan Discharge Chief Complaint: Abdominal Pain Clinical Impression: Urinary tract infection, Nausea & vomiting, Abdominal pain Patient Disposition: Home, Self-Care Time of Disposition Decision: :23 Condition: Good Mode of Transportation: Private Vehicle Prescriptions / Home Meds: New ondansetron HCl 4 mg tablet 4 mg PO Q6H PRN (Reason: nausea and vomiting) Qty: 12 0RF cephalexin 500 mg capsule 500 mg PO BID 7 Days Qty: 14 0RF No Action alprazolam 0.5 mg tablet 0.5 mg PO TID PRN (Reason: anxiety) Refresh Optive Wes-3 (PF) 0.5-1-0.5 % dropperette 1 drp OPHTHALMIC (EYE) Q6H PRN (Reason: dry eye(s)) Fetzima 40 mg capsule,extended release 24 hr 40 mg PO DAILY loratadine 10 mg tablet 10 mg PO Q24H paliperidone 9 mg tablet extended release 24hr 9 mg PO Q24H trazodone 150 mg tablet 300 mg PO DAILY PRN (Reason: insomnia) famotidine [Pepcid] 20 mg tablet 20 mg PO BID 5 Days Qty: 10 0RF pantoprazole [Protonix] [address] for susp in packet 40 mg PO DAILY Qty: 30 0RF dicyclomine 20 mg tablet 20 mg PO QID PRN (Reason: abdominal pain) Qty: 10 0RF ondansetron 4 mg tablet,disintegrating 4 mg PO Q6H PRN (Reason: nausea and vomiting) Qty: 12 0RF ondansetron 4 mg tablet,disintegrating 4 mg PO Q6H PRN (Reason: nausea and vomiting) Qty: 12 0RF ondansetron 4 mg tablet,disintegrating 4 mg PO Q6H PRN (Reason: nausea and vomiting) Qty: 20 0RF Instructions: Urinary Tract Infection in Women (ED), Acute Nausea and Vomiting (ED) Stand Alone Forms: Portal Instructions Referrals: Shaikh Langley MD [Primary Care Provider] - 1 week
[2023-04-21 19:33] LABS: Bilirubin Urine SMALL (NEGATIVE); Blood Urine LARGE (NEGATIVE); Clarity Urine CLEAR (CLEAR); Color Urine DK. RED (YELLOW); Glucose Urine UA NEGATIVE (NEGATIVE); Ketones Urine NEGATIVE (NEGATIVE); Leukocyte Esterase Urine TRACE (NEGATIVE); Nitrite Urine NEGATIVE (NEGATIVE); Protein Urine 100 mg/dL (NEG/TRACE); Specific Gravity Urine >=1.030 (1.005-1.025); pH Urine 5.5 (5.0-9.0)
[2023-04-21 19:33] LABS: Basophils Percent Auto 0.4 % (0.2-2.0); Eosinophils Absolute Auto 0.1 10^3/uL (0.0-0.7); Hematocrit 38.3 % (36.0-48.0); Hemoglobin 13.2 g/dL (12.0-16.0); Immature Granulocytes Abs Auto 0.04 10^3/uL (0.00-0.03); Immature Granulocytes Pct Auto 0.4 % (0.0-0.5); Lymphocytes Percent Auto 36.9 % (20.5-60.0); Mean Corpuscular HGB Conc 34.5 g/dL (29.9-35.2); Mean Corpuscular Hemoglobin 29.3 pg (26.7-34.0); Mean Corpuscular Volume 85.1 fL (81.0-99.0); Monocytes Absolute Auto 0.7 10^3/uL (0.3-0.8); Monocytes Percent Auto 6.4 % (1.7-12.0); Neutrophils Percent Auto 54.9 % (43.0-75.0); Platelet Count 376 10^3/uL (150-450); Red Cell Distribution Width 11.9 % (11.0-15.0); White Blood Count 10.9 10^3/uL (4.0-11.0)
[2023-04-21 19:35] VITALS: O2SAT 98
[2023-04-21 19:35] LABS: Urine Microscopic Indicated YES
[2023-04-21 19:40] LABS: Bacteria Urine MODERATE #/HPF (NONE SEEN); Cast Seen? NONE SEEN #/LPF (NONE SEEN); Crystals Seen? None Seen #/HPF (None Seen); Mucus Urine NONE SEEN (NONE SEEN); RBC Urine 50-75 #/HPF (0-2); Squamous Epithelial Cell Urine RARE #/LPF (NONE/RARE); WBC Urine NONE SEEN #/HPF (NONE SEEN)
[2023-04-21] MEDS: 0.9 % SODIUM CHLORIDE 1,000 ML 999 ML IV (19:40)
[2023-04-21 19:41] LABS: Urine Culture Indicated YES
[2023-04-21] MEDS: HYOSCYAMINE SULFATE 0.125 MG TAB.SUBL SL (19:41)
[2023-04-21] MEDS: ONDANSETRON PF 4 MG/2 ML VIAL IV (19:41)
[2023-04-21] MEDS: FAMOTIDINE/PF 20 MG/2 ML VIAL IV (19:41)
[2023-04-21 19:46] LABS: Alanine Aminotransferase 53 U/L (14-59); Albumin Globulin Ratio 0.8; Albumin Level 3.7 g/dL (3.4-5.0); Alkaline Phosphatase 185 U/L (46-116); Anion Gap 12.5; Aspartate Amino Transferase 35 U/L (15-37); BUN Creatinine Ratio 10.7; Bilirubin Total 0.5 mg/dL (0.2-1.0); Calcium 8.8 mg/dL (8.5-10.1); Carbon Dioxide 23.8 mmol/L (21.0-32.0); Chloride 102 mmol/L (98-107); Estimated GFR (African America >60 (>=60); Estimated GFR (Non-African Ame >60 (>=60); Globulin 4.8 g/dL; Glucose 108 mg/dL (74-106); Potassium 3.3 mmol/L (3.5-5.1); Sodium 135 mmol/L (136-145); Total Protein 8.5 g/dL (6.4-8.2)
[2023-04-21] MEDS: ACETAMINOPHEN 500 MG TABLET 1000 MG PO (20:12)
[2023-04-21] MEDS: POTASSIUM BICARBONATE/CIT 25 MEQ TABLET EFF 50 MEQ PO (20:22)
[2023-04-21] MEDS: CEPHALEXIN 500 MG CAPSULE PO (20:22)
== END 2023-04-21 20:35 | disposition home or self-care (01) ==
PROVIDERS: Personal Emergency Response Attendant; Emergency Provider Emergency Medicine; PCP Internal Medicine
DX: N39.0 Urinary tract infection, site not specified (principal); R11.2 Nausea with vomiting, unspecified; R10.9 Unspecified abdominal pain; Z90.49 Acquired absence of other specified parts of digestive tract; Z79.899 Other long term (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 therapy; F17.210 Nicotine dependence, cigarettes, uncomplicated
CPT/HCPCS: 36415; 80053; 81001; 83690; 85025; 87086; 96374; 96375; 99285

== ENCOUNTER 2023-04-25 15:58 | Emergency (ER) | payer MEDICAID, SELFPAY ==
[2023-04-25 16:03] VITALS: BP 135/97; PULSE 92; RESP 16; TEMP 36.8; O2SAT 98; BMI 37.0
--- NOTE | 2023-04-25 16:33 | ED.DENTAL1 ---
HPI - Dental/Oral General Chief complaint: Dental/Oral Stated complaint: Dental Pain Time Seen by Provider: 04/25/23 16:15 Source: patient Mode of arrival: walk-in History of Present Illness HPI Narrative: patient is a 27-year-old female who presents to the emergency department for worsening pain in the right mandible. She has multiple dental caries that will require removal by her dentist, she reports increasing pain to the right lower jaw. She states there has been no drainage. No fevers or vomiting. She is not concerned for . She was seen in this emergency department two days ago and diagnosed with urinary tract infection and is currently taking Keflex. No difficulty breathing or swallowing. Related Data Home Medications Medication Instructions Recorded Confirmed alprazolam 0.5 mg tablet 0.5 mg PO TID PRN anxiety 01/24/23 04/21/23 carboxymethyl 0.5 %-glycerin 1 1 drp ophthalmic (eye) Q6H PRN dry 01/24/23 04/21/23 %-polysorb 80 0.5 %-PF eye eye(s) dropperette (Refresh Optive Wes-3 (PF)) levomilnacipran 40 mg capsule,24 40 mg PO DAILY 01/24/23 04/21/23 hr,extended release (Fetzima) loratadine 10 mg tablet 10 mg PO Q24H 01/24/23 04/21/23 paliperidone 9 mg tablet,extended 9 mg PO Q24H 01/24/23 04/21/23 release 24 hr trazodone 150 mg tablet 300 mg PO DAILY PRN insomnia 01/24/23 04/21/23 Previous Rx's Medication Instructions Recorded ondansetron 4 mg disintegrating 4 mg PO Q6H PRN nausea and 01/09/23 tablet vomiting #12 tabs dicyclomine 20 mg tablet 20 mg PO QID PRN abdominal pain 01/24/23 #10 tabs famotidine 20 mg tablet (Pepcid) 20 mg PO BID 5 days #10 tabs 01/24/23 pantoprazole 40 mg granules 40 mg PO DAILY #30 ea 01/24/23 delayed-release for susp in packet (Protonix) ondansetron 4 mg disintegrating 4 mg PO Q6H PRN nausea and 02/05/23 tablet vomiting #12 tabs ondansetron 4 mg disintegrating 4 mg PO Q6H PRN nausea and 03/22/23 tablet vomiting #20 tabs cephalexin 500 mg capsule 500 mg PO BID 7 days #14 caps 04/21/23 ondansetron HCl 4 mg tablet 4 mg PO Q6H PRN nausea and 04/21/23 vomiting #12 tabs clindamycin HCl 150 mg capsule 300 mg PO Q6H 10 days #80 caps 04/25/23 tramadol 50 mg tablet 50 mg PO Q4H PRN pain #15 tabs 04/25/23 Allergies Allergy/AdvReac Type Severity Reaction Status Date / Time Penicillins Allergy Mild Hives Verified 04/21/23 19:13 latex Allergy Unknown Verified 04/21/23 19:13 ibuprofen AdvReac Mild Verified 04/21/23 19:13 Sulfa (Sulfonamide AdvReac Mild Hives Verified 04/21/23 19:13 Antibiotics) Review of Systems ROS Constitutional Denies: fever or chills Ears, nose, mouth, and throat Denies: throat pain Respiratory Denies: shortness of breath Gastrointestinal Denies: nausea or vomiting Musculoskeletal Denies: back pain Integumentary/Breast Denies: rash Neurological Reports: headache Psychiatric Reports: anxiety [facility] Social History Smoking status: Current every day smoker Exam Narrative Exam Narrative: Gen.: Awake, alert, in no distress Head: Normocephalic, atraumatic ENT: Moist mucous membranes; multiple dental caries with tenderness over tooth #32. No visible abscess of the gumline. No trismus or drooling. No redness or swelling under the tongue. No mandibular swelling noted. Respiratory: No respiratory distress Extremities: Moves extremities equally Psych: Normal mood and affect Neuro: No focal neuro deficit Skin: Warm, dry, intact Constitutional Vital Signs, click to edit/add: Last Vital Signs Temp 98.2 F 04/25/23 16:03 Pulse 92 H 04/25/23 16:03 Resp 16 04/25/23 16:03 BP 135/97 H 04/25/23 16:03 Pulse Ox 98 04/25/23 16:03 O2 Del Method Room Air 04/25/23 16:03 Course Vital Signs Vital signs: Vital Signs Temperature 98.2 F 04/25/23 16:03 Pulse Rate 92 H 04/25/23 16:03 Respiratory Rate 16 04/25/23 16:03 Blood Pressure 135/97 H 04/25/23 16:03 Pulse Oximetry 98 04/25/23 16:03 Oxygen Delivery Method Room Air 04/25/23 16:03 Temperature 98.2 F 04/25/23 16:03 Pulse Rate 92 H 04/25/23 16:03 Respiratory Rate 16 04/25/23 16:03 Blood Pressure 135/97 H 04/25/23 16:03 Pulse Oximetry 98 04/25/23 16:03 Oxygen Delivery Method Room Air 04/25/23 16:03 MDM - Dental/Oral MDM Narrative Medical decision making narrative: discussed with the patient and her mother at bedside that Keflex is not the best antibiotic for her dental symptoms, her urine culture has resulted from two days ago showing no evidence of bacteria in her urine she was counseled to stop the Keflex will be placed on clindamycin for coverage of her teeth. Follow-up with dentist as scheduled, topical analgesia and a short course of analgesics given for home. Return to the Emergency Room if symptoms change or worsen. Medical Records Attestation: I reviewed the patient's medical records. Lab Data Attestation: I reviewed the patient's lab results. Discharge Plan Discharge Chief Complaint: Dental/Oral Clinical Impression: Dental caries, Toothache Patient Disposition: Home, Self-Care Time of Disposition Decision: 16:29 Condition: Good Prescriptions / Home Meds: New clindamycin HCl 150 mg capsule 300 mg PO Q6H 10 Days Qty: 80 0RF tramadol 50 mg tablet 50 mg PO Q4H PRN (Reason: pain) Qty: 15 0RF Rx Instructions: DX: K08.89 No Action alprazolam 0.5 mg tablet 0.5 mg PO TID PRN (Reason: anxiety) Refresh Optive Wes-3 (PF) 0.5-1-0.5 % dropperette 1 drp OPHTHALMIC (EYE) Q6H PRN (Reason: dry eye(s)) Fetzima 40 mg capsule,extended release 24 hr 40 mg PO DAILY loratadine 10 mg tablet 10 mg PO Q24H paliperidone 9 mg tablet extended release 24hr 9 mg PO Q24H trazodone 150 mg tablet 300 mg PO DAILY PRN (Reason: insomnia) famotidine [Pepcid] 20 mg tablet 20 mg PO BID 5 Days Qty: 10 0RF pantoprazole [Protonix] [address] for susp in packet 40 mg PO DAILY Qty: 30 0RF dicyclomine 20 mg tablet 20 mg PO QID PRN (Reason: abdominal pain) Qty: 10 0RF ondansetron 4 mg tablet,disintegrating 4 mg PO Q6H PRN (Reason: nausea and vomiting) Qty: 12 0RF ondansetron HCl 4 mg tablet 4 mg PO Q6H PRN (Reason: nausea and vomiting) Qty: 12 0RF cephalexin 500 mg capsule 500 mg PO BID 7 Days Qty: 14 0RF ondansetron 4 mg tablet,disintegrating 4 mg PO Q6H PRN (Reason: nausea and vomiting) Qty: 12 0RF ondansetron 4 mg tablet,disintegrating 4 mg PO Q6H PRN (Reason: nausea and vomiting) Qty: 20 0RF Instructions: Toothache (ED) Additional Instructions: stop taking Keflex, take only the clindamycin and pain medication with topical analgesia Stand Alone Forms: Portal Instructions Referrals: Shaikh Langley MD [Primary Care Provider] - 1 week
[2023-04-25] MEDS: BENZOCAINE 30 ML, lidocaine HCL 15 ML MM (16:38)
[2023-04-25] MEDS: HYDROCODONE/ACET 5-325 MG TABLET 1 TAB PO (16:40)
== END 2023-04-25 16:45 | disposition home or self-care (01) ==
PROVIDERS: Emergency Provider Emergency Medicine; PCP Internal Medicine
DX: K02.9 Dental caries, unspecified (principal); K08.89 Other specified disorders of teeth and supporting structures; Z79.899 Other long term (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 therapy; F17.210 Nicotine dependence, cigarettes, uncomplicated
CPT/HCPCS: 99283

== ENCOUNTER 2023-05-30 14:53 | Emergency (ER) | payer MEDICAID, SELFPAY ==
[2023-05-30] VITALS (12 sets, daily range): BP systolic 126–135; BP diastolic 88–93; PULSE 86–117; RESP 18–29; TEMP 36.6; O2SAT 95–98; BMI 37.0
--- NOTE | 2023-05-30 15:09 | CT_ITS ---
The [address] [address] Patient Name: VERNELL CARMEN MRN: [id number] date: 1995 Sex: F Assigned Patient Location: ER Current Patient Location: ER Accession/Order Number: [id number] Exam Date: 05/30/2023 15:50 Report Date: 05/30/2023 16:08 At the request of: VÍCTOR HENDERSON Procedure: CT head/brain wo con EXAM: CT head/brain wo con HISTORY: Paresthesia COMPARISON: None. TECHNIQUE: Unenhanced transaxial tomographic sections obtained from the vertex through the posterior fossa. FINDINGS: No midline shift, mass effect or intracranial hemorrhage. Artifact through the skull base. The mastoid air cells and visualized paranasal sinuses are clear. CT/CT head/brain wo con IMPRESSION: Unremarkable unenhanced head CT. Electronically authenticated by: ESTEFANI WATTS Date: 05/30/2023 16:08
--- NOTE | 2023-05-30 15:09 | ECG_ITS ---
The [facility] Test Date: 2023-05-30 Pat Name: VERNELL CARMEN Department: Room: - Gender: Female Price Clerk: : 1995 Requested By: SHAIKH LEONARDO Order Number: [id number] Reading MD: CALEB MARTINEZ Measurements Intervals [place] Rate: 94 P: 38 DE: 154 QRS: 80 QRSD: 86 T: 1 QT: 338 QTc: 390 Interpretive Statements 1100 Sinus rhythm 9110 normal ECG Compared to ECG 01/24/2023 07:59:36 No significant changes Electronically Signed On 05-31-2023 7:03:26 EST by CALEB MARTINEZ
--- NOTE | 2023-05-30 15:15 | ED_ITS ---
HPI - General Adult General Chief complaint: Anxiety Stated complaint: FAST HEARTRATE/ HYPERTENSION Time Seen by Provider: 05/30/23 14:56 Source: patient Mode of arrival: walk-in History of Present Illness HPI narrative: patient is a 28-year-old female with a history of anxiety who presents to the emergency department with concern of worsening anxiety-type symptoms. Patient came from her PCP office, she was being evaluated there because the patient's therapist believes she may be having seizures. Patient states for the last week, she has felt tingling in her face, tingling in her hands and he feels as though she is staring off. Patient believes this is an escalation of her anxiety. Her PCP office referred her to the Emergency Room due to high heart rate and blood pressure. She arrives with stable vital signs to the Emergency Room at this time. She does not have any chest pain, shortness of breath. No fevers or upper respiratory symptoms no vomiting or diarrhea. She is not concerned for . She has been without her Xanax for the last two months, she states her PCP is trying to address this prescription. She was seen at the [facility] this week for the same symptoms. Related Data Home Medications Medication Instructions Recorded Confirmed alprazolam 0.5 mg tablet 0.5 mg PO TID PRN anxiety 01/24/23 04/21/23 carboxymethyl 0.5 %-glycerin 1 1 drp ophthalmic (eye) Q6H PRN dry 01/24/23 04/21/23 %-polysorb 80 0.5 %-PF eye eye(s) dropperette (Refresh Optive Wes-3 (PF)) levomilnacipran 40 mg capsule,24 40 mg PO DAILY 01/24/23 04/21/23 hr,extended release (Fetzima) loratadine 10 mg tablet 10 mg PO Q24H 01/24/23 04/21/23 paliperidone 9 mg tablet,extended 9 mg PO Q24H 01/24/23 04/21/23 release 24 hr trazodone 150 mg tablet 300 mg PO DAILY PRN insomnia 01/24/23 04/21/23 Previous Rx's Medication Instructions Recorded ondansetron 4 mg disintegrating 4 mg PO Q6H PRN nausea and 01/09/23 tablet vomiting #12 tabs dicyclomine 20 mg tablet 20 mg PO QID PRN abdominal pain 01/24/23 #10 tabs famotidine 20 mg tablet (Pepcid) 20 mg PO BID 5 days #10 tabs 01/24/23 pantoprazole 40 mg granules 40 mg PO DAILY #30 ea 01/24/23 delayed-release for susp in packet (Protonix) ondansetron 4 mg disintegrating 4 mg PO Q6H PRN nausea and 02/05/23 tablet vomiting #12 tabs ondansetron 4 mg disintegrating 4 mg PO Q6H PRN nausea and 03/22/23 tablet vomiting #20 tabs cephalexin 500 mg capsule 500 mg PO BID 7 days #14 caps 04/21/23 ondansetron HCl 4 mg tablet 4 mg PO Q6H PRN nausea and 04/21/23 vomiting #12 tabs clindamycin HCl 150 mg capsule 300 mg PO Q6H 10 days #80 caps 04/25/23 tramadol 50 mg tablet 50 mg PO Q4H PRN pain #15 tabs 04/25/23 hydroxyzine HCl 25 mg tablet 25 mg PO Q8H PRN anxiety #30 tabs 05/30/23 potassium chloride 20 mEq 20 meq PO DAILY #3 tabs 05/30/23 tablet,extended release Allergies Allergy/AdvReac Type Severity Reaction Status Date / Time Penicillins Allergy Mild Hives Verified 04/21/23 19:13 latex Allergy Unknown Verified 04/21/23 19:13 ibuprofen AdvReac Mild Verified 04/21/23 19:13 Sulfa (Sulfonamide AdvReac Mild Hives Verified 04/21/23 19:13 Antibiotics) Review of Systems ROS Constitutional Denies: fever or chills Eyes Denies: change in vision Ears, nose, mouth, and throat Denies: throat pain Cardiovascular Denies: chest pain Respiratory Denies: shortness of breath or cough Gastrointestinal Denies: nausea or vomiting Integumentary/Breast Denies: rash Neurological Reports: numbness in extremities; Denies: headache Psychiatric Reports: anxiety and panic attacks [facility] Social History Smoking status: Current every day smoker Exam Narrative Exam Narrative: Gen.: Awake, alert, in no distress Head: Normocephalic, atraumatic ENT: Moist mucous membranes Respiratory: No respiratory distress, lungs clear bilaterally Cardio: Regular rate and rhythm Gastrointestinal: Abdomen is soft, nondistended and nontender to palpation Extremities: Moves extremities equally Psych: Normal mood and affect Neuro: No focal neuro deficit Skin: Warm, dry, intact Constitutional Vital Signs, click to edit/add: Last Vital Signs Temp 97.8 F 05/30/23 14:57 Pulse 97 H 05/30/23 16:10 Resp 20 05/30/23 15:50 BP 135/93 H 05/30/23 15:25 Pulse Ox 98 05/30/23 15:50 O2 Del Method Room Air 05/30/23 14:57 Course Vital Signs Vital signs: Vital Signs Temperature 97.8 F 05/30/23 14:57 Pulse Rate 117 H 05/30/23 14:57 Respiratory Rate 18 05/30/23 14:57 Blood Pressure 128/88 05/30/23 14:57 Pulse Oximetry 97 05/30/23 14:57 Oxygen Delivery Method Room Air 05/30/23 14:57 Temperature 97.8 F 05/30/23 14:57 Pulse Rate 97 H 05/30/23 16:10 Respiratory Rate 20 05/30/23 15:50 Blood Pressure 135/93 H 05/30/23 15:25 Pulse Oximetry 98 05/30/23 15:50 Oxygen Delivery Method Room Air 05/30/23 14:57 Medical Decision Making [facility] Narrative Medical decision making narrative: lab studies show the patient has a critically low potassium of 2.8, she was given oral K-Lyte in the Emergency Room. She was treated with IV fluids and Valium. She was also given Toradol for muscle pain in her legs. The remainder of her lab studies show mildly elevated thyroid-stimulating hormone, free T3 and free T4 were added to her workup. She otherwise has an unremarkable workup including CT of the brain and EKG. She maintains normal vital signs with no hypertension or tachycardia in the Emergency Room. She will need to get refills of present at from her PCP and not the emergency department. Follow-up with PCP and return to the Emergency Room if symptoms change or worsen. Medical Records Medical records reviewed: Yes I reviewed the patient's medical records Lab Data Lab results reviewed: Yes I reviewed the patient's lab results Labs: Lab Results 05/30/23 Range/Units 15:22 WBC 10.9 (4.0-11.0) 10^3/uL RBC 4.26 (4.20-5.40) 10^6/uL Hgb 12.3 (12.0-16.0) g/dL Hct 36.4 (36.0-48.0) % MCV 85.4 (81.0-99.0) fL MCH 28.9 (26.7-34.0) pg MCHC 33.8 (29.9-35.2) g/dL RDW 12.0 (11.0-15.0) % Plt Count 382 (150-450) 10^3/uL MPV 9.0 L (9.5-13.5) fL Neut % (Auto) 62.6 (43.0-75.0) % Lymph % (Auto) 30.2 (20.5-60.0) % [place] % (Auto) 5.5 (1.7-12.0) % Eos % (Auto) 1.0 (0.9-7.0) % Baso % (Auto) 0.4 (0.2-2.0) % Neut # (Auto) 6.8 H (1.4-6.5) 10^3/uL Lymph # (Auto) 3.3 (1.2-3.8) 10^3/uL [place] # (Auto) 0.6 (0.3-0.8) 10^3/uL Eos # (Auto) 0.1 (0.0-0.7) 10^3/uL Baso # (Auto) 0.0 (0.0-0.1) 10^3/uL Abs Immat Gran (auto) 0.03 (0.00-0.03) 10^3/uL Imm/Tot Granulo (auto) 0.3 (0.0-0.5) % Sodium 139 (136-145) mmol/L Potassium 2.8 L* (3.5-5.1) mmol/L Chloride 101 (98-107) mmol/L Carbon Dioxide 27.0 (21.0-32.0) mmol/L Anion Gap 13.8 BUN 7.0 (7.0-18.0) mg/dL Creatinine 0.97 (0.55-1.02) mg/dL Est GFR ( Amer) >60 (>=60) Est GFR (Non-Af Amer) >60 (>=60) BUN/Creatinine Ratio 7.2 Glucose 128 H (74-106) mg/dL Calcium 9.2 (8.5-10.1) mg/dL Total Bilirubin 0.4 (0.2-1.0) mg/dL AST 33 (15-37) U/L ALT 68 H (14-59) U/L Alkaline Phosphatase 186 H (46-116) U/L Troponin I High Sens <4.0 L (4.0-51.3) pg/mL Total Protein 8.4 H (6.4-8.2) g/dL Albumin 3.5 (3.4-5.0) g/dL Globulin 4.9 g/dL Albumin/Globulin Ratio 0.7 TSH 4.248 H (0.358-3.740) uIU/mL Serum HCG, Qual Negative (NEGATIVE) Imaging Data CT scan - head: Attestation: I have reviewed the pertinent imaging results. Radiologist's impression: Procedure: CT head/brain wo con EXAM: CT head/brain wo con HISTORY: Paresthesia COMPARISON: None. TECHNIQUE: Unenhanced transaxial tomographic sections obtained from the vertex through the posterior fossa. FINDINGS: No midline shift, mass effect or intracranial hemorrhage. Artifact through the skull base. The mastoid air cells and visualized paranasal sinuses are clear. IMPRESSION: Unremarkable unenhanced head CT. Electronically authenticated by: ESTEFANI WATTS Date: 05/30/2023 16:08 ECG Data Attestation: I personally reviewed and interpreted this ECG as follows: (normal sinus rhythm at a rate of ninety-four, no acute ST elevation or ectopy. EKG reviewed by attending physician) Discharge Plan Discharge Chief Complaint: Anxiety Clinical Impression: Paresthesia, Anxiety, Hypokalemia Patient Disposition: Home, Self-Care Time of Disposition Decision: 16:25 Condition: Good Prescriptions / Home Meds: New potassium chloride 20 mEq tablet extended release 20 meq PO DAILY Qty: 3 0RF hydroxyzine HCl 25 mg tablet 25 mg PO Q8H PRN (Reason: anxiety) Qty: 30 0RF No Action alprazolam 0.5 mg tablet 0.5 mg PO TID PRN (Reason: anxiety) Refresh Optive Wes-3 (PF) 0.5-1-0.5 % dropperette 1 drp OPHTHALMIC (EYE) Q6H PRN (Reason: dry eye(s)) Fetzima 40 mg capsule,extended release 24 hr 40 mg PO DAILY loratadine 10 mg tablet 10 mg PO Q24H paliperidone 9 mg tablet extended release 24hr 9 mg PO Q24H trazodone 150 mg tablet 300 mg PO DAILY PRN (Reason: insomnia) famotidine [Pepcid] 20 mg tablet 20 mg PO BID 5 Days Qty: 10 0RF pantoprazole [Protonix] [address] for susp in packet 40 mg PO DAILY Qty: 30 0RF dicyclomine 20 mg tablet 20 mg PO QID PRN (Reason: abdominal pain) Qty: 10 0RF ondansetron 4 mg tablet,disintegrating 4 mg PO Q6H PRN (Reason: nausea and vomiting) Qty: 12 0RF ondansetron HCl 4 mg tablet 4 mg PO Q6H PRN (Reason: nausea and vomiting) Qty: 12 0RF cephalexin 500 mg capsule 500 mg PO BID 7 Days Qty: 14 0RF clindamycin HCl 150 mg capsule 300 mg PO Q6H 10 Days Qty: 80 0RF tramadol 50 mg tablet 50 mg PO Q4H PRN (Reason: pain) Qty: 15 0RF Rx Instructions: DX: K08.89 ondansetron 4 mg tablet,disintegrating 4 mg PO Q6H PRN (Reason: nausea and vomiting) Qty: 12 0RF ondansetron 4 mg tablet,disintegrating 4 mg PO Q6H PRN (Reason: nausea and vomiting) Qty: 20 0RF Instructions: Hypokalemia (ED), Paresthesia (ED), Anxiety (ED) Stand Alone Forms: Portal Instructions Referrals: Shaikh Langley MD [Primary Care Provider] - 1 week
[2023-05-30] MEDS: 0.9 % SODIUM CHLORIDE 1,000 ML 999 ML IV (15:19)
[2023-05-30] MEDS: DIAZEPAM 5 MG/ML - 2 ML INJ SYRINGE IV (15:19)
[2023-05-30 15:36] LABS: Basophils Percent Auto 0.4 % (0.2-2.0); Eosinophils Absolute Auto 0.1 10^3/uL (0.0-0.7); Hematocrit 36.4 % (36.0-48.0); Hemoglobin 12.3 g/dL (12.0-16.0); Immature Granulocytes Abs Auto 0.03 10^3/uL (0.00-0.03); Immature Granulocytes Pct Auto 0.3 % (0.0-0.5); Lymphocytes Absolute Auto 3.3 10^3/uL (1.2-3.8); Lymphocytes Percent Auto 30.2 % (20.5-60.0); Mean Corpuscular HGB Conc 33.8 g/dL (29.9-35.2); Mean Corpuscular Hemoglobin 28.9 pg (26.7-34.0); Mean Corpuscular Volume 85.4 fL (81.0-99.0); Monocytes Absolute Auto 0.6 10^3/uL (0.3-0.8); Monocytes Percent Auto 5.5 % (1.7-12.0); Neutrophils Absolute Auto 6.8 10^3/uL (1.4-6.5); Neutrophils Percent Auto 62.6 % (43.0-75.0); Platelet Count 382 10^3/uL (150-450); Red Blood Count 4.26 10^6/uL (4.20-5.40); White Blood Count 10.9 10^3/uL (4.0-11.0)
[2023-05-30 15:45] LABS: HCG Qualitative NEGATIVE (NEGATIVE)
[2023-05-30 15:50] LABS: Alanine Aminotransferase 68 U/L (14-59); Albumin Globulin Ratio 0.7; Albumin Level 3.5 g/dL (3.4-5.0); Alkaline Phosphatase 186 U/L (46-116); Anion Gap 13.8; Aspartate Amino Transferase 33 U/L (15-37); BUN Creatinine Ratio 7.2; Bilirubin Total 0.4 mg/dL (0.2-1.0); Calcium 9.2 mg/dL (8.5-10.1); Chloride 101 mmol/L (98-107); Estimated GFR (African America >60 (>=60); Estimated GFR (Non-African Ame >60 (>=60); Globulin 4.9 g/dL; Glucose 128 mg/dL (74-106); Sodium 139 mmol/L (136-145); Total Protein 8.4 g/dL (6.4-8.2)
[2023-05-30 15:52] LABS: Potassium 2.8 mmol/L (3.5-5.1)
[2023-05-30 15:57] LABS: Thyroid Stimulating Hormone 4.248 uIU/mL (0.358-3.740); Troponin I High Sensitivity <4.0 pg/mL (4.0-51.3)
[2023-05-30] MEDS: POTASSIUM BICARBONATE/CIT 25 MEQ TABLET EFF 50 MEQ PO (16:11)
[2023-05-30] MEDS: KETOROLAC TROMETHAMINE 30 MG/ML VIAL IVP (16:12)
[2023-05-30 17:00] LABS: Free T4 1.49 ng/dL (0.76-1.46)
[2023-05-30 17:06] LABS: Free T3 4.02 pg/mL (2.18-3.98)
== END 2023-05-30 16:53 | disposition home or self-care (01) ==
PROVIDERS: Physician Assistant; Emergency Provider Emergency Medicine; PCP Internal Medicine
DX: E87.6 Hypokalemia (principal); F41.9 Anxiety disorder, unspecified; R20.2 Paresthesia of skin; F17.210 Nicotine dependence, cigarettes, uncomplicated
CPT/HCPCS: 36415; 70450; 80053; 84439; 84443; 84481; 84484; 84703; 85025; 93005; 96374; 96375; 99285

== ENCOUNTER 2023-07-31 22:50 | Emergency (ER) | payer MEDICAID, SELFPAY ==
--- OUTSIDE RECORDS SUMMARY | 2023-07-31 22:56 | XMS_ITS | CCD ---
Author Name Unknown Address [address] [place] [address] Organization [facility] Care Team Providers Care Heater Tender Name Role Phone Stalter, Alistair Unavailable Unavailable Stalter, Alistair Unavailable Unavailable FURLONG, SOLOMON G Unavailable Unavailable Stalter, Alistair Unavailable Unavailable Stalter, Alistair Unavailable Unavailable FURLONG, SOLOMON Unavailable Unavailable Lucinda Salgado Unavailable Deb Simon Unavailable FAWWAD, COLÓN H Primary Care Unavailable FAWRID, COLÓN H Attending Unavailable FAWWAD, COLÓN H Admitting Unavailable FAWWAD, COLÓN H Primary Care Unavailable ALLIE, DR VALDIVIA Attending Unavailable ALLIE, DR VALDIVIA Admitting Unavailable ALLIE, DR VALDIVIA Consulting Unavailable JENNIFER GRANT Consulting Unavailable DANNI QUINONES Consulting Unavailable SUZANNE, KARAN Attending Unavailable SUZANNE, KARAN Admitting Unavailable SUZANNE, KARAN Consulting Unavailable FAWWAD, COLÓN H Primary Care Unavailable RIVER RODGERS Consulting Unavailable SHRUTI, DR PATRICK Goodson Consulting Unavailable SHRUTI, DR PATRICK Goodson Attending Unavailable SHRUTI, DR PATRICK Goodson Admitting Unavailable FAWWAD, COLÓN H Primary Care Unavailable DUARTE, DR NICOL Goodson Consulting Unavailable MODESTA NAVA Consulting Unavailable TIO PALACIOSYL Attending Unavailable SUZANNE, KARAN Admitting Unavailable SUZANNE, KARAN Consulting Unavailable FAWWAD, COLÓN H Primary Care Unavailable RIVER RODGERS Consulting Unavailable SHRUTI, DR PATRICK Goodson Consulting Unavailable SHRUTI, DR PATRICK Goodson Attending Unavailable SHRUTI, DR PATRICK Goodson Admitting Unavailable FAWWAD, COLÓN H Primary Care Unavailable SHRUTI, DR PATRICK Goodson Consulting Unavailable SHRUTI, DR PATRICK Goodson Attending Unavailable SHRUTI, DR PATRICK Goodson Admitting Unavailable FAWRID, COLÓN H Primary Care Unavailable ISAIAH FAROOQ Consulting Unavailable FAWRID, COLÓN H Primary Care Unavailable MARIA ISABEL BANKS Attending Unavailable MARIA ISABEL BANKS Admitting Unavailable MARKER, DR MEDRANO Consulting Unavailable MARIA ISABEL BANKS Consulting Unavailable RAHMAN, HILDA Consulting Unavailable FAWWAD, COLÓN H Primary Care Unavailable SHRUTI, DR PATRICK Goodson Attending Unavailable SHRUTI, DR PATRICK Goodson Admitting Unavailable SHRUTI, DR PATRICK Goodson Consulting Unavailable LAN, ARIADNA Consulting Unavailable BRITTANIE, HILDA Consulting Unavailable FAWWAD, COLÓN H Primary Care Unavailable FAWWAD, COLÓN H Consulting Unavailable FAWWAD, COLÓN H Admitting Unavailable FAWWAD, COLÓN H Attending Unavailable FAWWAD, COLÓN H Consulting Unavailable FAWWAD, COLÓN H Attending Unavailable FAWWAD, COLÓN H Admitting Unavailable FAWWAD, COLÓN H Primary Care Unavailable FAWWAD, COLÓN H Consulting Unavailable FAWWAD, COLÓN H Attending Unavailable FAWWAD, COLÓN H Admitting Unavailable FAWWAD, COLÓN H Primary Care Unavailable FAWWAD, COLÓN H Consulting Unavailable FAWWAD, COLÓN H Primary Care Unavailable FAWWAD, COLÓN H Attending Unavailable FAWWAD, COLÓN H Admitting Unavailable FAWWAD, COLÓN H Primary Care Unavailable MARKER, DR MEDRANO Attending Unavailable MARKER, DR MEDRANO Admitting Unavailable MARKER, DR MEDRANO Consulting Unavailable STRAWSER, GERI Consulting Unavailable Autumn Marley Unavailable Chase Saldana Unavailable MIREILLE Saldana Attending Provider FAWWAD, COLÓN Primary Care Unavailable Key Patel Unavailable Chase Saldana Admitting Unavailable Chase Saldana Attending Unavailable NON STAFF Primary Care Unavailable Gerald Wagner Attending Unavailab le Gerald Wagner Admitting Unavailab le Allergies Allergy Classification Reported Allergen(s) Allergy Type Date of Onset Reaction(s) Facility (4 sources) ibuprofen; Translations: [ibuprofen] Drug Allergy 08-24-19 Nausea [facility] (1 source) Latex; Translations: [Latex Allergy] Propensity to adverse reactions to drug (disorder) [facility] (1 source) Sulfonamides (Antibiotic); Translations: [sulfa drugs] Propensity to adverse reactions to drug (disorder) [facility] (6 sources) Lactase Drug Allergy vomiting [facility] Other (7 sources) Latex Drug allergy 08-24-19 19 anaphylaxis [facility] (6 sources) Sulfacetamide Drug Allergy hives [facility] Other (2 sources) Lactose Drug Allergy [facility] (2 sources) Latex Drug allergy (disorder) 12-30-19 13 [facility] (2 sources) Penicillin Drug Allergy [facility] (1 source) Propylthiouracil Drug Allergy [facility] (2 sources) Sulfonamides (Antibiotic) Drug allergy (disorder) 12-30-19 13 [facility] (2 sources) Sulfonamides (Antibiotic); Translations: [Sulfa (Sulfonamide Antibiotics)] Allergy to substance 08-24-19 [facility] (1 source) Latex Drug allergy (disorder) 08-24-19 [facility] Medications Current Medications Medication Drug Class(es) Dates Sig (Normalized) Sig (Original) [id number] 200 actuat albuterol 0.09 mg/actuat metered dose inhaler (3 sources) beta2-Adrenergic Agonist Start: 08-24-2018 Albuterol Sulfate (Proair Hfa) 90 mcg/actuation HFA aerosol inhaler Active August 24, 2018 1:00am take 2 puff(s) by in halation every four hours as needed Albuterol Sulfate HFA 108 (90 Base) MCG/ACT 2 puffs as needed Inhalation every 4 hrs Active ALPRAZolam (5 sources) Benzodiazepine Xanax Active azithromycin 250 mg oral tablet (2 sources) Macrolide Antimicrobial Azithromycin 250 MG 2 tablets on the first day, then 1 tablet daily for 4 days Orally Once a day for 5 day(s) Active dextromethorphan hydrobromide 1.5 mg/ml / pyrilamine maleate 1.5 mg/ml oral solution (2 sources) Uncompetitive L-lyqide-H-aspartate Receptor Antagonist, Sigma-1 Agonist [place] DM 7.5-7.5 MG/5ML 10 ml Orally every 6-8 hours as needed for 8 days Active erythromycin 20 mg/ml topical solution (1 source) Macrolide, Macrolide Antimicrobial Start: Erythromycin 2 % 2 drops left eye tid for 5 day(s) 2 drops to the left eye every 2 hours while awake today and tomorrow then 4 times a day for the next 3 or 4 days. Mar, Active OLANZapine (1 source) Atypical Antipsychotic OLANZapin e Active paliperidone (4 sources) Atypical Antipsychotic Invega Ac tive pantoprazole 40 mg delayed release oral tablet (1 source) Proton Pump Inhibitor take 1 tablet by mouth every twenty-four hours Protonix 40 MG 1 tablet Orally Once a day Active rOPINIRole (1 source) Nonergot Dopamine Agonist rOPINIRole HCl Active traMADol hydrochloride 50 mg oral tablet (1 source) Opioid Agonist take 1 tablet by mouth every twenty-four hours traMADol HCl 50 MG 1 tablet as needed Orally Once a day Active traZODone (4 sources) Serotonin Reuptake Inhibitor traZODone HCl Active Completed/Discontinued Medications Medication Drug Class(es) Dates Sig (Normalized) Sig (Original) busPIRone (6 sources) busPIRone HCl No t-Taking busPIRone HCl Ac tive cefTRIAXone (5 sources) Cephalosporin Antibacterial Start: 09-08-2019 Rocephin 500 mg Aug, 500 mg cephalexin 500 mg oral capsule (2 sources) Cephalosporin Antibacterial Start: 02-06-2021 take 1 capsule by mouth every eight hours Cephalexin 500 MG 1 capsule Orally three times a day for 10 day(s) Jan, Not-Taking Start: 08-24-2018 End: 09-03-2018 take 1 capsule by mouth four times daily Cephalexin (Keflex) 500 mg capsule Discontinued 500 MG PO Four times daily 40 August 24, 2018 1:00am September 03, 2018 1:01am clindamycin 300 mg oral capsule (2 sources) Lincosamide Antibacterial Start: 03-18-2021 take 1 capsule by mouth every eight hours Clindamycin HCl 300 MG 1 cap(s) Orally tid for 10 day(s) Mar, Not-Taking take 1 capsule by [facility] every twelve hours Clindamycin HCl 300 MG 1 capsule Orally every 12 hrs Active Doxepin (2 sources) Tricyclic Antidepressant Doxepin HCl Not-Taking Doxepin HCl Acti ve FLUoxetine (8 sources) Serotonin Reuptake Inhibitor Flu oxetine Not-Taking PROzac Not-Takin g Fluoxetine Activ e PROzac Active fluticasone propionate 0.05 mg/actuat metered dose nasal spray (2 sources) Corticosteroid Start: 03-15-2023 take 2 spray(s) nasal route once daily Fluticasone Propionate 50 MCG/ACT 2 sprays Nasally Once a day for 14 day(s) Mar, Not-Taking Start: 08-24-2018 Fluticasone Pr opionate Active August 24, 2018 1:00am ibuprofen 800 mg oral tablet (1 source) Nonsteroidal Anti-inflammatory Drug Start: 03-18-2021 take 1 tablet by mouth three times daily at mealtime as needed Ibuprofen 800 MG 1 tablet with food or milk as needed Orally tid prn for 10 day(s) prn for mild to moderate pain Mar, Not-Taking Ketorolac (5 sources) Nonsteroidal Anti-inflammatory Drug, Cyclooxygenase Inhibitor Start: 01-26-2020 Toradol per 15 mg Jan, 60 mg lidocaine hydrochloride 20 mg/ml mucous membrane topical solution (1 source) Antiarrhythmic, Amide Local Anesthetic Start: 03-18-2021 Lidocaine Viscous HCl 2 % 2 ml topically prn Apply a small amount to the painful tooth area every hour as needed for pain. Mar, Not-Taking methylPREDNISolone 4 mg oral tablet (3 sources) Corticosteroid Start: 03-15-2023 Medrol 4 MG as directed Orally As Directed for 6 days Mar, Not-Taking methylPREDNISolo ne 4 MG as directed Orally Once a day for 6 days Active nitrofurantoin, macrocrystals 25 mg / nitrofurantoin, monohydrate 75 mg oral capsule (2 sources) Nitrofuran Antibacterial Start: 11-08-2022 take 1 capsule by mouth every twelve hours Macrobid 100 MG 1 capsule with food Orally every 12 hrs for 7 day(s) Oct, Not-Taking Omeprazole (6 sources) Proton Pump Inhibitor Omeprazole Not-Taking Omeprazole Activ e phenazopyridine hydrochloride 200 mg oral tablet (3 sources) Start: 11-08-2022 take 1 tablet by mouth every eight hours Pyridium 200 MG 1 tablet after meals Orally Three times a day for 2 day(s) Oct, Not-Taking Start: 08-24-2018 End: 08-25-2018 take 1 tablet by mouth every eight hours Phenazopyridine (Pyridium) 200 mg tablet Discontinued 200 MG PO Q8H 6 3 August 24, 2018 1:00am August 25, 2018 1:02am Prazosin (6 sources) alpha-Adrenergic Lillian Prazosi n HCl Not-Taking Prazosin HCl Act meenakshi Problems Active Problems Problem Classification Problem Date Documented Da te Episodic/Chronic Asthma (1 source) Unspecified asthma, uncomplicated; Translations: [UNSPECIFIED ASTHMA UNCOMPLICATED] Onset: 10-18-2021 Chronic Chronic obstructive pulmonary disease and bronchiectasis (2 sources) Bronchitis, not specified as acute or chronic Episodic Disorders of lipid metabolism (4 sources) Hyperlipidemia, unspecified; Translations: [HYPERLIPIDEMIA UNSPECIFIED] Onset: 12-18-2021 Chronic E Codes: Natural/environment (1 source) Overexertion from prolonged static or awkward postures, initial encounter; Translations: [OVEREXERT PROLNG STAT/AWK PST INIT] Onset: 03-12-2022 Episodic Fluid and electrolyte disorders (5 sources) Hypokalemia; Translations: [HYPOKALEMIA] Onset: 10-24-2021 Episodic Mood disorders (1 source) Bipolar disorder, unspecified; Translations: [BIPOLAR DISORDER UNSPECIFIED] Onset: 07-23-2021 Chronic Other aftercare (1 source) Other fci (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 therapy; Translations: [OTH FDC CURRENT DRUG THERAPY] Onset: 03-23-2022 Episodic Other gastrointestinal disorders (4 sources) Constipation, unspecified; Translations: [CONSTIPATION UNSPECIFIED] Onset: 03-22-2022 Episodic Other lower respiratory disease (4 sources) Shortness of breath; Translations: [SHORTNESS OF BREATH] Onset: 02-08-2022 Episodic Other nervous system disorders (3 sources) Difficulty in walking, not elsewhere classified; Translations: [DIFFICULTY IN WALKING NEC] Onset: 12-07-2021 Chronic Other non-traumatic joint disorders (4 sources) Pain in left ankle and joints of left foot; Translations: [PAIN IN LEFT ANKLE] Onset: 03-09-2022 Episodic Other skin disorders (1 source) Ingrowing nail Episodic Other upper respiratory infections (1 source) Sinusitis; Translations: [Chronic sinusitis, unspecified] Chronic Other upper respiratory infections (6 sources) Acute upper respiratory infection, unspecified; Translations: [Pain in throat] Onset: 03-27-2022 Resolved: 03-27-2022 Episodic Residual codes; unclassified (1 source) Acquired absence of other specified parts of digestive tract; Translations: [ACQ ABSENCE OTH PART DIGESTV TRACT] Onset: 03-23-2022 Episodic Sprains and strains (3 sources) Sprain of unspecified ligament of left ankle, initial encounter; Translations: [Unspecified sprain of right foot, initial encounter] Onset: 10-18-2021 Episodic Substance-related disorders (7 sources) Opioid dependence; Translations: [Opioid dependence, uncomplicated] Onset: 03-23-2022 Chronic Unclassified (3 sources) CONTACT W/AND (SUSP) EXPOS COVID-19; Translations: [CONTACT W/AND (SUSP) EXPOS COVID-19] Onset: 04-04-2022 Unclassified (1 source) COUGH, UNSPECIFIED; Translations: [COUGH, UNSPECIFIED] Onset: 02-09-2022 Unclassified (1 source) PERSONAL HISTORY OF COVID-19; Translations: [PERSONAL HISTORY OF COVID-19] Onset: 02-09-2022 Urinary tract infections (1 source) Acute cystitis with hematuria Episodic Past or Other Problems Problem Classification Problem Date Documented Date Episodic/Chronic Abdominal pain (9 sources) Left lower quadrant pain; Translations: [Right upper quadrant pain] Onset: 05-01-2021 Episodic E Codes: Fall (1 source) Fall on same level from slipping, tripping and stumbling without subsequent striking against object, initial encounter; Translations: [FALL SAME LVL SLIP NO STRK OBJ INIT] Onset: 10-18-2021 Episodic E Codes: Struck by; against (1 source) Walked into furniture, initial encounter; Translations: [WALKED INTO FURNITURE INITIAL ENC] Onset: 12-08-2021 Episodic Genitourinary symptoms and ill-defined conditions (2 sources) Dysuria; Translations: [Dysuria] Onset: 11-08-2022 Episodic Inflammation; infection of eye (except that caused by tuberculosis or sexually transmitteddisease) (1 source) Unspecified conjunctivitis; Translations: [Conjunctivitis of left eye, unspecified conjunctivitis type H10.9] Onset: 04-05-2021 Resolved: 04-05-2021 Episodic Nausea and vomiting (1 source) Vomiting, unspecified; Translations: [VOMITING UNSPECIFIED] Onset: 09-19-2021 Episodic Other injuries and conditions due to external causes (3 sources) Unspecified injury of right shoulder and upper arm, initial encounter; Translations: [UNS INJ RT SHOULDER UP ARM INITIAL] Onset: 10-17-2021 Episodic Other liver diseases (1 source) Abnormal levels of other serum enzymes; Translations: [ABNORMAL LEVELS OTHER SERUM ENZYMES] Onset: 12-22-2021 Episodic Other lower respiratory disease (3 sources) Pleurodynia; Translations: [PLEURODYNIA] Onset: 09-26-2021 Episodic Other nervous system disorders (1 source) Other acute postprocedural pain; Translations: [OTHER ACUTE POSTPROCEDURAL PAIN] Onset: 05-03-2021 Episodic Other screening for suspected conditions (not mental disorders or infectious disease) (5 sources) Encounter for screening for diabetes mellitus; Translations: [Encounter for screening for lipoid disorders] Onset: 07-18-2021 Episodic Pleurisy; pneumothorax; pulmonary collapse (1 source) Pleurisy; Translations: [PLEURISY] Onset: 09-27-2021 Episodic Unclassified (3 sources) Contact with and (suspected) exposure to covid-19; Translations: [Contact with and (suspected) exposure to covid-19] Unclassified (2 sources) Contact with and (suspected) exposure to covid-19 Z20.822 Onset: 03-27-2022 Resolved: 03-27-2022 Unclassified (1 source) CONTACT W/AND (SUSP) EXPOS COVID-19; Translations: [CONTACT W/AND (SUSP) EXPOS COVID-19] Onset: 04-03-2022 Unclassified (2 sources) Exposure to acute respiratory syndrome coronavirus 2; Translations: [Contact with and (suspected) exposure to covid-19] Results Test Name Value Interpretation Reference Range Facility Provider Letteron 02-25-2023 Provider Letter (Inserted Image. Swapna ble to display) February 25, 2023 JENNIFER CARMEN [address] [place] [phone] : 1995 Dear Jennifer , We have been trying to reach you with no success. It is important that you return our call regarding your referral to our office by Jennifer upon receiving this letter. Also, at the time of your call, please provide us with your current information. Thank you for your prompt attention to this matter. Sincerely, [facility] [phone] Normal [facility] Physician Referralon 023 Physician Referral [phone] [id number] Normal [facility] Urinalysis - AUTOMATEDon Appearance (U) cloudy [employer] Other Bilirubin Ql (U) Negative [employer] Other Color (U) yellow [facility] Other Glucose Ql (U) Negative [employer] Other Hemoglobin Ql (U) Trace-intact [facility] Other Ketones Ql (U) Negative [employer] Other Leukocyte esterase Test strip Ql (U) Trace [facility] Other Nitrite Ql (U) Negative [employer] Other pH (U) 6.0 [pH] [facility] Other Protein Ql (U) Negative [employer] Other Specific gravity (U) [Rel density] <=1.005 [employer] Other Urobilinogen (U) [Mass/Vol] 0.2 mg/dL [facility] Other Urinalysis - AUTOMATED No rt [employer] Other Urine Cultureon 11-08-2022 Bacteria identified Cx Nom (U) 20,000 colonies/ml mixed bacterial skin contaminants 2 Days PERFORMED BY: [place] [address] [place] [address] PATHOLOGIST DOCTOR NATUROPATHIC MONTY CANO M.D. Normal [facility] Comment on above: Performed By: #### C UU #### [facility] [address] Quick Strepon 04-26-2022 S. pyogenes Org specific cx Ql (Throat) Negative [facility] Other Quick Strep [facility] Other SARS-CoV-2 (COVID-19) RNA NA A+probe Ql (Resp)on 04-23-2022 SARS-CoV-2 (COVID-19) RNA EMMANUELLE+probe Ql (Unsp spec) Negative [facility] Other Covid-19 PCR (CVDTBH)on 03-16 SARS-CoV-2 (COVID-19) RNA EMMANUELLE+probe Ql (Unsp spec) Not detected Normal NOT DETECTED [facility] Comment on above: Result Comment: This test is not yet approved or cleared by the [place] FDA. When there are no FDA-approved or cleared tests available, and other criteria are met, FDA can make tests available under an emergency access mechanism called an Emergency Use Authorization (EUA). The EUA for this test is supported by the [place] of Health and Human Service's (HHS's) declaration that circumstances exist to justify the emergency use of in vitro diagnostics for the detection and/or diagnosis of the virus that causes COVID-19. This EUA will remain in effect (meaning this test can be used) for the duration of the COVID-19 declaration justifying emergency of IVDs, unless it is terminated or revoked by FDA (after which the test may no longer be used). When diagnostic testing is negative, the possibility of a false negative should be considered in the context of a patient's recent exposures and the presence of clinical signs and symptoms consistent with SARS-CoV-2. Performed By: #### C BC #### [facility] [address] [address] [address] Katrin Ceja SARS-CoV-2 (COVID-19) RNA NA A+probe Ql (Resp)on 03-27-2022 SARS-CoV-2 (COVID-19) RNA EMMANUELLE+probe Ql (Unsp spec) Negative [facility] Other CBC AUTO DIFFon 03-22-2022 BASO # 0.0 103/ul Normal 0.0-0.1 [facility] Comment on above: Performed By: #### L IPID, CMP #### [facility] [address] [place] [address] Dr. Katrin Ceja Basophils/100 WBC (Bld) 0.3 % Normal 0.2-2.0 [facility] Comment on above: Performed By: #### L IPID, CMP #### [facility] [address] [place] [address] Dr. Katrin Ceja EO # 0.2 103/ul Normal 0.0-0.7 [facility] Comment on above: Performed By: #### L IPID, CMP #### [facility] [address] [place] [address] Dr. Katrin Ceja Eosinophils/100 WBC (Bld) 2.2 % Normal 0.9-7.0 [facility] Comment on above: Performed By: #### L IPID, CMP #### [facility] [address] [place] [address] Dr. Katrin Ceja Erythrocyte distribution width (RBC) [Ratio] 11.9 % Normal 11.0-15.0 [facility] Comment on above: Performed By: #### L IPID, CMP #### [facility] [address] [place] [address] Dr. Katrin Ceja Hematocrit (Bld) [Volume fraction] 36.4 % Normal 36.0-48.0 [facility] Comment on above: Performed By: #### L IPID, CMP #### [facility] [address] [place] [address] Dr. Katrin Cjea Hemoglobin (Bld) [Mass/Vol] 12.6 g/dL Normal 12.0-16.0 [facility] Comment on above: Performed By: #### L IPID, CMP #### [facility] [address] [place] [address] Dr. Katrin Ceja IG # 0.03 10e3/ul Normal 0.00-0.03 [facility] Comment on above: Performed By: #### L IPID, CMP #### [facility] [address] [address] [address] Katrin Ceja IG % 0.3 % Normal 0.0-0.5 [facility] Comment on above: Performed By: #### L IPID, CMP #### [facility] [address] [address] [address] Katrin Ceja LYMPH # 3.5 103/ul Normal 1.2-3.8 [facility] Comment on above: Performed By: #### L IPID, CMP #### [facility] [address] [address] [address] Katrin Ceja Lymphocytes/100 WBC (Bld) 33.1 % Normal 20.5-60.0 [facility] Comment on above: Performed By: #### L IPID, CMP #### [facility] [address] [address] [address] Katrin Ceja MANUAL DIFF REQ NO Normal [facility] Comment on above: Performed By: #### L IPID, CMP #### [facility] [address] [address] [address] Katrin Ceja MCH (RBC) [Entitic mass] 29.9 pg Normal 26.7-34.0 [facility] Comment on above: Performed By: #### L IPID, CMP #### [facility] [address] [address] [address] Katrin Ceja MCHC (RBC) [Mass/Vol] 34.6 g/dL Normal 29.9-35.2 [facility] Comment on above: Performed By: #### L IPID, CMP #### [facility] [address] [address] [address] Katrin Ceja MCV (RBC) [Entitic vol] 86.5 fL Normal 81.0-99.0 [facility] Comment on above: Performed By: #### L IPID, CMP #### [facility] [address] [address] [address] Katrin Ceja MONO # 0.7 103/ul Normal 0.3-0.8 [facility] Comment on above: Performed By: #### L IPID, CMP #### [facility] [address] [place] [address] Dr. Katrin Ceja Monocytes/100 WBC (Bld) 6.5 % Normal 1.7-12.0 [facility] Comment on above: Performed By: #### L IPID, CMP #### [facility] [address] [place] [address] Dr. Katrin Ceja NEUT # 6.0 103/ul Normal 1.4-6.5 [facility] Comment on above: Performed By: #### L IPID, CMP #### [facility] [address] [place] [address] Dr. Katrin Ceja Neutrophils/100 WBC (Bld) 57.6 % Normal 43.0-75.0 [facility] Comment on above: Performed By: #### L IPID, CMP #### [facility] [address] [place] [address] Dr. Katrin Ceja Platelet mean volume (Bld) [Entitic vol] 8.7 fL Critically low 9.5-13.5 [facility] Comment on above: Performed By: #### L IPID, CMP #### [facility] [address] [place] [address] Dr. Katrin Ceja PLT 282 103/ul Normal 150-450 [facility] Comment on above: Performed By: #### L IPID, CMP #### [facility] [address] [place] [id number] Dr. Katrin Ceja RBC 4.21 106/ul Normal 4.20-5.40 [facility] Comment on above: Performed By: #### L IPID, CMP #### [facility] [address] [place] [address] Dr. Katrin Ceja WBC 10.5 103/ul Normal 4.0-11.0 [facility] Comment on above: Performed By: #### L IPID, CMP #### [facility] [address] [place] [address] Dr. Katrin Ceja ER URINE PROFILEon 2 Bilirubin Ql (U) Negative Normal NEGATIVE [facility] Comment on above: Performed By: #### L IPID, CMP #### [facility] [address] [place] [address] Dr. Katrin Ceja Clarity (U) CLEAR Normal CLEAR [facility] Comment on above: Performed By: #### L IPID, CMP #### [facility] [address] [address] [address] Katrin Ceja Color (U) LT. YELLOW Normal YELLOW [facility] Comment on above: Performed By: #### L IPID, CMP #### [facility] [address] [place] [address] Dr. Katrin Ceja ERUNIRAV A micrscopic examina tion will be performed if indicated. Normal [facility] Comment on above: Performed By: #### L IPID, CMP #### [facility] [address] [place] [address] Dr. Katrin Ceja Glucose Ql (U) Negative Normal NEGATIVE [facility] Comment on above: Performed By: #### L IPID, CMP #### [facility] [address] [place] [address] Dr. Katrin Ceja Hemoglobin Ql (U) Negative Normal NEGATIVE [facility] Comment on above: Performed By: #### L IPID, CMP #### [facility] [address] [place] [address] Dr. Katrin Ceja Ketones Ql (U) Negative Normal NEGATIVE [facility] Comment on above: Performed By: #### L IPID, CMP #### [facility] [address] [place] [address] Dr. Katrin Ceja LEUKOCYTES Negative Normal NEGATIVE [facility] Comment on above: Performed By: #### L IPID, CMP #### [facility] [address] [place] [address] Dr. Katrin Ceja Nitrite Ql (U) Negative Normal NEGATIVE [facility] Comment on above: Performed By: #### L IPID, CMP #### [facility] [address] [place] [address] Dr. Katrin Ceja pH (U) 6.0 [pH] Normal 5-9 [facility] Comment on above: Performed By: #### L IPID, CMP #### [facility] [address] [place] [address] Dr. Katrin Ceja SPEC GRAVITY 1.015 Normal 1.005-<=1. 025 [facility] Comment on above: Performed By: #### L IPID, CMP #### [facility] [address] [place] [address] Dr. Katrin Ceja UA PROTEIN Negative Normal NEGATIVE/ TRACE [facility] Comment on above: Performed By: #### L IPID, CMP #### [facility] [address] [place] [address] Dr. Katrin Ceja UR MICRO IND NOT INDICATED Normal [facility] Comment on above: Performed By: #### L IPID, CMP #### [facility] [address] [place] [address] Dr. Katrin Ceja Urobilinogen Qn (U) 0.2 {Jeannie'U}/dL Normal 0.2 - 1. 0 [facility] Comment on above: Performed By: #### L IPID, CMP #### [facility] [address] [place] [address] Dr. Katrin Ceja LIPASEon 03-22-2022 Lipase [Catalytic activity/Vol] 84.0 U/L Normal 73.0-393.0 [facility] Comment on above: Performed By: #### H STROPN, CMP, LIPA #### [facility] [address] [place] [address] Dr. Katrin Ceja URon 03-22-2022 , QUAL Negative Normal NEGATIVE [facility] Comment on above: Performed By: #### L IPID, CMP #### [facility] [address] [place] [address] Dr. Katrin Ceja PROF 14(COMP METB)on 022 Albumin [Mass/Vol] 3.2 g/dL Critically low 3.4-5.0 [facility] Comment on above: Performed By: #### H STROPN, CMP, LIPA #### [facility] [address] [address] [address] Katrin Ceja Albumin/Globulin [Mass ratio] 0.8 {ratio} Normal [facility] Comment on above: Performed By: #### H STROPN, CMP, LIPA #### [facility] [address] [address] [address] Katrin Ceja ALP [Catalytic activity/Vol] 189 U/L Critically high 46-116 [facility] Comment on above: Performed By: #### H STROPN, CMP, LIPA #### [facility] [address] [address] [address] Katrin Ceja ALT [Catalytic activity/Vol] 31 U/L Normal 14-59 [facility] Comment on above: Performed By: #### H STROPN, CMP, LIPA #### [facility] [address] [address] [address] Katrin Ceja Anion gap [Moles/Vol] 9.9 mmol/L Normal [facility] Comment on above: Performed By: #### H STROPN, CMP, LIPA #### [facility] [address] [address] [address] Katrin Ceja AST [Catalytic activity/Vol] 17 U/L Normal 15-37 [facility] Comment on above: Performed By: #### H STROPN, CMP, LIPA #### [facility] [address] [address] [address] Katrin Ceja Bilirubin [Mass/Vol] 0.2 mg/dL Normal 0.2-1.0 [facility] Comment on above: Performed By: #### H STROPN, CMP, LIPA #### [facility] [address] [address] [address] Katrin Ceja Calcium [Mass/Vol] 8.7 mg/dL Normal 8.5-10.1 [facility] Comment on above: Performed By: #### H STROPN, CMP, LIPA #### [facility] [address] [address] [address] Katrin Ceja Chloride [Moles/Vol] 103 mmol/L Normal 98-107 [facility] Comment on above: Performed By: #### H STROPN, CMP, LIPA #### [facility] [address] [address] [address] Katrin Ceja CO2 [Moles/Vol] 25.4 mmol/L Normal 21.0-32.0 [facility] Comment on above: Performed By: #### H STROPN, CMP, LIPA #### [facility] [address] [place] [address] Dr. Katrin Ceja Creatinine [Mass/Vol] 0.71 mg/dL Normal 0.55-1.02 [facility] Comment on above: Performed By: #### H STROPN, CMP, LIPA #### [facility] [address] [place] [address] Dr. Katrin Ceja EGFR-AF CITIZEN [place] >60 Normal >=60 [facility] Comment on above: Performed By: #### H STROPN, CMP, LIPA #### [facility] [address] [address] [address] Katrin Ceja EGFR-NON AF CITIZEN OF [place] >60 Normal >=60 [facility] Comment on above: Performed By: #### H STROPN, CMP, LIPA #### [facility] [address] [place] [address] Dr. Katrin Ceja Globulin (S) [Mass/Vol] 4.0 g/dL Normal [facility] Comment on above: Performed By: #### H STROPN, CMP, LIPA #### [facility] [address] [address] [address] Katrin Ceja Glucose [Mass/Vol] 106 mg/dL Normal 74-106 [facility] Comment on above: Performed By: #### H STROPN, CMP, LIPA #### [facility] [address] [place] [address] Dr. Katrin Ceja Potassium [Moles/Vol] 3.3 mmol/L Critically low 3.5-5.1 [facility] Comment on above: Performed By: #### H STROPN, CMP, LIPA #### [facility] [address] [address] [address] Katrin Ceja Protein [Mass/Vol] 7.2 g/dL Normal 6.4-8.2 [facility] Comment on above: Performed By: #### H STROPN, CMP, LIPA #### [facility] [address] [address] [address] Katrin Ceja Sodium [Moles/Vol] 135 mmol/L Critically low 136-145 [facility] Comment on above: Performed By: #### H STROPN, CMP, LIPA #### [facility] [address] [address] [address] Katrin Ceja Urea nitrogen [Mass/Vol] 5.0 mg/dL Critically low 7.0-18.0 [facility] Comment on above: Performed By: #### H STROPN, CMP, LIPA #### [facility] [address] [address] [address] Katrin Ceja Urea nitrogen/Creatinine [Mass ratio] 7.0 mg/mg Normal [facility] Comment on above: Performed By: #### H STROPN, CMP, LIPA #### [facility] [address] [address] [address] Katrin Ceja TROPONIN, HIGH SENSITIVITYon 03-22-2022 HSTROP <4.0 Normal 4.0-51.3 [facility] Comment on above: Result Comment: CUT- OFF POINTS HAVE BEEN ESTABLISHED BASED ON THE FOURTH UNIVERSAL DEFINITIONS OF MYOCARDIAL INFARCTION. THE UPPER REFERENCE LIMIT (URL) OF TROPONIN, DEFINED THE 99TH PERCENTILE OF cTnI DISTRIBUTION IN A REFERENCE POPULATION, HAS BEEN CONFIRMED THE DECISION THRESHOLD FOR [place] DIAGNOSIS. Performed By: #### H STROPN, CMP, LIPA #### [facility] [address] [place] [address] Dr. Katrin Ceja XR ABD FLAT UP_PA Bret 03-22 XR ABD FLAT UP_PA CH EXAMINATION: XR ABD FLAT UP_PA CH, 03/21/2022 11:58 PM EDT HISTORY:CONSTIPATION, UNSPECIFIED COMPARISON:Chest x-ray dated 02/08/2022 TECHNIQUE:Frontal images of the chest and abdomen are submitted. FINDINGS: No abnormally dilated loops of bowel are identified. No obvious free air or pneumatosis are present. No suspicious urologic opacifications are appreciated. There is a moderate stool burden. Surgical clips overlie the right upper quadrant. The cardiomediastinal silhouette is not enlarged. The pulmonary vascularity is within normal limits. The lungs are clear based on chest radiography. There is no costophrenic angle blunting. There is no free air under the diaphragm. IMPRESSION: Unremarkable plain film examination of the chest and abdomen. Electronically authenticated by: GERI LASSITER Date: 2022-03-22 01:53 Normal [facility] XR ANKLE LT MIN 3 Von 2021 XR ANKLE LT MIN 3 V EXAM: XR ANKLE LT NV N 3 V HISTORY: Ankle pain COMPARISON: None. TECHNIQUE: 3 views FINDINGS: No osseous lesion, fracture, dislocation or subluxation. Joint spaces are normal. Old posttraumatic ossifications adjacent to the tip of the lateral malleolus. No visualized effusion. No visualized soft tissue edema. IMPRESSION: Normal x-rays Electronically authenticated by: DANNI QUIONNES Date: 2022-03-09 19:32 Normal [facility] CBC AUTO DIFFon 02-08-2022 BASO # 0.0 103/ul Normal 0.0-0.1 [facility] Comment on above: Performed By: #### C BC #### [facility] [address] [place] [address] Dr. Katrin Ceja Basophils/100 WBC (Bld) 0.3 % Normal 0.2-2.0 [facility] Comment on above: Performed By: #### C BC #### [facility] [address] [place] [address] Dr. Katrin Ceja EO # 0.3 103/ul Normal 0.0-0.7 [facility] Comment on above: Performed By: #### C BC #### [facility] [address] [address] [address] Katrin Ceja Eosinophils/100 WBC (Bld) 3.0 % Normal 0.9-7.0 [facility] Comment on above: Performed By: #### C BC #### [facility] [address] [place] [address] Dr. Katrin Ceja Erythrocyte distribution width (RBC) [Ratio] 12.2 % Normal 11.0-15.0 [facility] Comment on above: Performed By: #### C BC #### [facility] [address] [place] [address] Dr. Katrin Ceja Hematocrit (Bld) [Volume fraction] 33.8 % Critically low 36.0-48.0 [facility] Comment on above: Performed By: #### C BC #### [facility] [address] [place] [address] Dr. Katrin Ceja Hemoglobin (Bld) [Mass/Vol] 11.9 g/dL Critically low 12.0-16.0 [facility] Comment on above: Performed By: #### C BC #### [facility] [address] [place] [address] Dr. Katrin Ceja IG # 0.04 10e3/ul Critically high 0.00-0.03 [facility] Comment on above: Performed By: #### C BC #### [facility] [address] [place] [address] Dr. Katrin Ceja IG % 0.4 % Normal 0.0-0.5 [facility] Comment on above: Performed By: #### C BC #### [facility] [address] [place] [address] Dr. Katrin Ceja LYMPH # 3.0 103/ul Normal 1.2-3.8 [facility] Comment on above: Performed By: #### C BC #### [facility] [address] [place] [address] Dr. Katrin Ceja Lymphocytes/100 WBC (Bld) 28.4 % Normal 20.5-60.0 [facility] Comment on above: Performed By: #### C BC #### [facility] [address] [place] [address] Dr. Katrin Ceja MANUAL DIFF REQ NO Normal [facility] Comment on above: Performed By: #### C BC #### [facility] [address] [place] [address] Dr. Katrin Ceja MCH (RBC) [Entitic mass] 29.8 pg Normal 26.7-34.0 [facility] Comment on above: Performed By: #### C BC #### [facility] [address] [address] [address] Katrin Ceja MCHC (RBC) [Mass/Vol] 35.2 g/dL Normal 29.9-35.2 [facility] Comment on above: Performed By: #### C BC #### [facility] [address] [address] [address] Katrin Ceja MCV (RBC) [Entitic vol] 84.7 fL Normal 81.0-99.0 [facility] Comment on above: Performed By: #### C BC #### [facility] [address] [address] [address] Katrin Ceja MONO # 0.7 103/ul Normal 0.3-0.8 [facility] Comment on above: Performed By: #### C BC #### [facility] [address] [place] [address] Dr. Katrin Ceja Monocytes/100 WBC (Bld) 6.6 % Normal 1.7-12.0 [facility] Comment on above: Performed By: #### C BC #### [facility] [address] [place] [address] Dr. Katrin Ceja NEUT # 6.4 103/ul Normal 1.4-6.5 [facility] Comment on above: Performed By: #### C BC #### [facility] [address] [place] [address] Dr. Katrin Ceja Neutrophils/100 WBC (Bld) 61.3 % Normal 43.0-75.0 [facility] Comment on above: Performed By: #### C BC #### [facility] [address] [address] [address] Katrin Ceja Platelet mean volume (Bld) [Entitic vol] 8.9 fL Critically low 9.5-13.5 [facility] Comment on above: Performed By: #### C BC #### [facility] [address] [address] [address] Katrin Ceja PLT 299 103/ul Normal 150-450 [facility] Comment on above: Performed By: #### C BC #### [facility] [address] [address] [address] Katrin Ceja RBC 3.99 106/ul Critically low 4.20-5.40 [facility] Comment on above: Performed By: #### C BC #### [facility] [address] [place] [address] Dr. Katrin Ceja WBC 10.4 103/ul Normal 4.0-11.0 [facility] Comment on above: Performed By: #### C BC #### [facility] [address] [place] [address] Dr. Katrin Ceja D-DIMERon 02-08-2022 D-DIMER 0.59 mg/L FEU Normal <=0.59 [facility] Comment on above: Performed By: #### L IPID, CMP #### [facility] [address] [place] [address] Dr. Katrin Ceja D-DIMER COMMENTS SEE BELOW Normal [facility] Comment on above: Result Comment: Incr eases in D-Dimer concentration observed with thromboembolic events can be variable due to localization, size, and age of the thrombus. Therefore, a thromboembolic event cannot be diagnosed with certainty on the basis of the reference range. D-Dimers may also be elevated for a variety of disorders including: advanced age, , coronary disease, cancer, liver disease, infection, inflammation, hematoma, DIC, trauma, post-surgery, diabetes, thrombolytic or anticoagulant therapy, stress, and generalized hospitalization. Performed By: #### L IPID, CMP #### [facility] [address] [place] [address] Dr. Katrin Ceja PROF CHEM 8 (BAS METB)on Anion gap [Moles/Vol] 12.8 mmol/L Normal [facility] Comment on above: Performed By: #### C BC #### [facility] [address] [place] [address] Dr. Katrin Ceja Calcium [Mass/Vol] 8.7 mg/dL Normal 8.5-10.1 [facility] Comment on above: Performed By: #### C BC #### [facility] [address] [address] [address] Katrin Ceja Chloride [Moles/Vol] 102 mmol/L Normal 98-107 [facility] Comment on above: Performed By: #### C BC #### [facility] [address] [address] [address] Katrin Ceja CO2 [Moles/Vol] 25.9 mmol/L Normal 21.0-32.0 [facility] Comment on above: Performed By: #### C BC #### [facility] [address] [address] [address] Katrin Ceja Creatinine [Mass/Vol] 0.70 mg/dL Normal 0.55-1.02 [facility] Comment on above: Performed By: #### C BC #### [facility] [address] [address] [address] Katrin Ceja EGFR-AF CITIZ[place] >60 Normal >=60 [facility] Comment on above: Performed By: #### C BC #### [facility] [address] [place] [address] Dr. Katrin Ceja EGFR-NON AF CITIZEN OF [place] >60 Normal >=60 [facility] Comment on above: Performed By: #### C BC #### [facility] [address] [address] [address] Katrin Ceja Glucose [Mass/Vol] 95 mg/dL Normal 74-106 [facility] Comment on above: Performed By: #### C BC #### [facility] [address] [address] [address] Katrin Ceja Potassium [Moles/Vol] 2.7 mmol/L Critically low 3.5-5.1 [facility] Comment on above: Result Comment: Test Repeated. Critical Value Verified Performed By: #### C BC #### [facility] [address] [place] [address] Dr. Katrin Ceja Sodium [Moles/Vol] 136 mmol/L Normal 136-145 [facility] Comment on above: Performed By: #### C BC #### [facility] [address] [place] [address] Dr. Katrin Ceja Urea nitrogen [Mass/Vol] 3.0 mg/dL Critically low 7.0-18.0 [facility] Comment on above: Performed By: #### C BC #### [facility] [address] [address] [address] Katrin Ceja Urea nitrogen/Creatinine [Mass ratio] 4.3 mg/mg Normal [facility] Comment on above: Performed By: #### C BC #### [facility] [address] [address] [address] Katrin Ceja XR CHEST 2 Von 02-08-2022 XR CHEST 2 V EXAM: XR CHEST 2 V 02/08/2022 1:18 AM EDT [facility]001 CLINICAL STATEMENT: COUGH COMPARISON: 01/31/2022 TECHNIQUE: PA and lateral radiograph of the chest are submitted. FINDINGS: There is no acute airspace disease. The cardiac silhouette is normal. The costophrenic recesses are sharp. No pneumothorax. The bony elements are unremarkable. IMPRESSION: No acute cardiopulmonary process. FOLLOW-UP: Follow-up as clinically indicated. Electronically authenticated by: RIVER SAID Date: 2022-02-08 04:19 Normal [facility] LIPID PROFILEon 12-18-2021 CHOL-HDL RATIO NORM SEE BELOW Normal [facility] Comment on above: Result Comment: 3.3 - 4.4 LOW RISK 4.4 - 7.1 AVERAGE RISK 7.1 - 11.0 MODERATE RISK >11.0 HIGH RISK Performed By: #### L IPID, LIVER #### [facility] [address] [place] [address] Dr. Katrin Ceja Cholesterol [Mass/Vol] 126 mg/dL Normal <=200 [facility] Comment on above: Performed By: #### L IPID, LIVER #### [facility] [address] [place] [address] Dr. Katrin Ceja Cholesterol in HDL [Mass/Vol] 31 mg/dL Critically low 40-60 [facility] Comment on above: Performed By: #### L IPID, LIVER #### [facility] [address] [place] [address] Dr. Katrin Ceja Cholesterol in LDL [Mass/Vol] 59.2 mg/dL Normal [facility] Comment on above: Performed By: #### L IPID, LIVER #### [facility] [address] [place] [address] Dr. Katrin Ceja Cholesterol.total/Chol esterol in HDL [Mass ratio] 4.1 {ratio} Normal [facility] Comment on above: Performed By: #### L IPID, LIVER #### [facility] [address] [place] [address] Dr. Katrin Ceja HDL NORMAL > or = 60 mg/dl - LO W CARDIOVASCULAR RISK <40 mg/dl - HIGH CARDIOVASCULAR RISK Normal [facility] Comment on above: Performed By: #### L IPID, LIVER #### [facility] [address] [place] [address] Dr. Katrin Ceja LDL CALC NORMAL SEE BELOW Normal [facility] Comment on above: Result Comment: <100 mg/dl OPTIMAL 100 - 129 mg/dl NEAR OR ABOVE OPTIMAL 130 - 159 mg/dl BORDERLINE HIGH 160 - 189 mg/dl HIGH >190 mg/dl VERY HIGH Performed By: #### L IPID, LIVER #### [facility] [address] [place] [address] Dr. Katrin Ceja Triglyceride [Mass/Vol] 179 mg/dL Critically high <=150 [facility] Comment on above: Performed By: #### L IPID, LIVER #### [facility] [address] [place] [address] Dr. Katrin Ceja VLDL CALC 35.8 mg/dL Normal [facility] Comment on above: Performed By: #### L IPID, LIVER #### [facility] [address] [place] [address] Dr. Katrin Ceja LIVER PROFILEon 12-18-2021 Albumin [Mass/Vol] 3.6 g/dL Normal 3.4-5.0 [facility] Comment on above: Performed By: #### L IPID, LIVER #### [facility] [address] [place] [address] Dr. Katrin Ceja Albumin/Globulin [Mass ratio] 0.8 {ratio} Normal [facility] Comment on above: Performed By: #### L IPID, LIVER #### [facility] [address] [address] [address] Katrin Ceja ALP [Catalytic activity/Vol] 196 U/L Critically high 46-116 [facility] Comment on above: Performed By: #### L IPID, LIVER #### [facility] [address] [address] [address] Katrin Ceja ALT [Catalytic activity/Vol] 51 U/L Normal 14-59 [facility] Comment on above: Performed By: #### L IPID, LIVER #### [facility] [address] [address] [address] Katrin Ceja AST [Catalytic activity/Vol] 22 U/L Normal 15-37 [facility] Comment on above: Performed By: #### L IPID, LIVER #### [facility] [address] [address] [address] Katrin Ceja BILI, CONJUGATED 0.1 mg/dL Normal 0.0-0.2 [facility] Comment on above: Performed By: #### L IPID, LIVER #### [facility] [address] [address] [address] Katrin Ceja Bilirubin [Mass/Vol] 0.4 mg/dL Normal 0.2-1.0 [facility] Comment on above: Performed By: #### L IPID, LIVER #### [facility] [address] [address] [address] Katrin Ceja Globulin (S) [Mass/Vol] 4.4 g/dL Normal [facility] Comment on above: Performed By: #### L IPID, LIVER #### [facility] [address] [address] [address] Katrin Ceja Protein [Mass/Vol] 8.0 g/dL Normal 6.4-8.2 [facility] Comment on above: Performed By: #### L IPID, LIVER #### [facility] [address] [address] [address] Katrin Ceja XR FOOT RT MIN 3 VIEWSon XR FOOT RT MIN 3 VIEWS EXAM: XR FOOT RT MIN 3 VIEWS 12/06/2021 11:39 PM EDT [facility]001 CLINICAL STATEMENT: Pain COMPARISON: No prior studies are available at the time of dictation. TECHNIQUE: 2 views AP, oblique and lateral views of the right foot are submitted. FINDINGS: The osseous structures are intact and in anatomic alignment. There is no acute fracture and/or dislocation. The joint spaces are preserved. There is no significant joint effusion. Soft tissues are unremarkable. Bone mineralization is within normal limits for the patient's age. IMPRESSION: Unremarkable foot radiograph. FOLLOW UP: Follow-up as clinically indicated. Electronically authenticated by: RIVER RODGERS Date: 2021-12-07 00:19 Normal [facility] PROF 14(COMP METB)on 022 Albumin [Mass/Vol] 3.6 g/dL Normal 3.4-5.0 [facility] Comment on above: Performed By: #### L IPID, CMP #### [facility] [address] [place] [address] Dr. Katrin Ceja Albumin/Globulin [Mass ratio] 0.8 {ratio} Normal [facility] Comment on above: Performed By: #### L IPID, CMP #### [facility] [address] [place] [address] Dr. Katrin Ceja ALP [Catalytic activity/Vol] 209 U/L Critically high 46-116 [facility] Comment on above: Performed By: #### L IPID, CMP #### [facility] [address] [place] [address] Dr. Katrin Ceja ALT [Catalytic activity/Vol] 65 U/L Critically high 14-59 [facility] Comment on above: Performed By: #### L IPID, CMP #### [facility] [address] [address] [address] Katrin Ceja Anion gap [Moles/Vol] 15.7 mmol/L Normal [facility] Comment on above: Performed By: #### L IPID, CMP #### [facility] [address] [place] [address] Dr. Katrin Ceja AST [Catalytic activity/Vol] 31 U/L Normal 15-37 [facility] Comment on above: Performed By: #### L IPID, CMP #### [facility] [address] [address] [address] Katrin Ceja Bilirubin [Mass/Vol] 0.2 mg/dL Normal 0.2-1.3 [facility] Comment on above: Performed By: #### L IPID, CMP #### [facility] [address] [place] [address] Dr. Katrin Ceja Calcium [Mass/Vol] 8.8 mg/dL Normal 8.5-10.1 [facility] Comment on above: Performed By: #### L IPID, CMP #### [facility] [address] [place] [address] Dr. Katrin Ceja Chloride [Moles/Vol] 105 mmol/L Normal 98-107 [facility] Comment on above: Performed By: #### L IPID, CMP #### [facility] [address] [place] [address] Dr. Katrin Ceja CO2 [Moles/Vol] 21.3 mmol/L Critically low 22.0-30.0 [facility] Comment on above: Performed By: #### L IPID, CMP #### [facility] [address] [place] [address] Dr. Katrin Ceja Creatinine [Mass/Vol] 0.72 mg/dL Normal 0.52-1.04 [facility] Comment on above: Performed By: #### L IPID, CMP #### [facility] [address] [place] [address] Dr. Katrin Ceja EGFR-AF CITIZEN OF [place] >60 Normal >=60 [facility] Comment on above: Performed By: #### L IPID, CMP #### [facility] [address] [place] [address] Dr. Katrin Ceja EGFR-NON AF CITIZEN OF [place] >60 Normal >=60 [facility] Comment on above: Performed By: #### L IPID, CMP #### [facility] [address] [place] [address] Dr. Katrin Ceja Globulin (S) [Mass/Vol] 4.3 g/dL Normal [facility] Comment on above: Performed By: #### L IPID, CMP #### [facility] [address] [address] [address] Katrin Ceja Glucose [Mass/Vol] 99 mg/dL Normal 74-106 [facility] Comment on above: Performed By: #### L IPID, CMP #### [facility] [address] [place] [address] Dr. Katrin Ceja Potassium [Moles/Vol] 4.0 mmol/L Normal 3.4-5.0 [facility] Comment on above: Performed By: #### L IPID, CMP #### [facility] [address] [address] [address] Katrin Ceja Protein [Mass/Vol] 7.9 g/dL Normal 6.1-8.2 [facility] Comment on above: Performed By: #### L IPID, CMP #### [facility] [address] [place] [address] Dr. Katrin Ceja Sodium [Moles/Vol] 138 mmol/L Normal 137-145 [facility] Comment on above: Performed By: #### L IPID, CMP #### [facility] [address] [place] [address] Dr. Katrin Ceja Urea nitrogen [Mass/Vol] 13.0 mg/dL Normal 7.0-18.0 [facility] Comment on above: Performed By: #### L IPID, CMP #### [facility] [address] [place] [address] Dr. Katrin Ceja Urea nitrogen/Creatinine [Mass ratio] 18.1 mg/mg Normal [facility] Comment on above: Performed By: #### L IPID, CMP #### [facility] [address] [place] [address] Dr. Katrin Ceja XR HUMERUS RT MIN 2 Von 04-0 XR HUMERUS RT MIN 2 V EXAM: XR HUMERUS R T MIN 2 V HISTORY: Pain acute right arm pain following fall. COMPARISON: Right shoulder, 10/17/2021. TECHNIQUE: AP and lateral views of the right humerus. FINDINGS: No acute or intrinsic osseous, articular or soft tissue abnormality is seen. IMPRESSION: Unremarkable right humerus. Electronically authenticated by: MODESTA NAVA Date: 2021-10-17 01:46 Normal [facility] XR SHOULDER RT 2V or >on XR SHOULDER RT 2V or > EXAM: XR SHOULDER RT 2V or > HISTORY: Pain right arm pain following fall. COMPARISON: None. TECHNIQUE: Standard 3 views of the right shoulder. FINDINGS: No acute or intrinsic osseous, articular or soft tissue abnormality is seen. IMPRESSION: No acute findings. Electronically authenticated by: MODESTA NAVA Date: 2021-10-17 01:45 Normal [facility] XR WRIST RT MIN 3 Von 2021 XR WRIST RT MIN 3 V EXAM: XR WRIST RT NV N 3 V HISTORY: Pain acute right arm pain following fall. COMPARISON: None. TECHNIQUE: AP, oblique and lateral views of the right wrist. FINDINGS: No acute or intrinsic osseous, articular or soft tissue abnormality is seen. IMPRESSION: No acute right wrist findings. Electronically authenticated by: MODESTA NAVA Date: 2021-10-17 01:44 Normal [facility] AMYLASEon 09-18-2021 Amylase [Catalytic activity/Vol] 34 U/L Normal 31-110 [facility] Comment on above: Performed By: #### P REG #### [facility] [address] [place] [address] Dr. Katrin Ceja CBC AUTO DIFFon 09-18-2021 BASO # 0.0 103/ul Normal 0.0-0.1 [facility] Comment on above: Performed By: #### C BC #### [facility] [address] [place] [address] Dr. Katrin Ceja Basophils/100 WBC (Bld) 0.3 % Normal 0.2-2.0 [facility] Comment on above: Performed By: #### C BC #### [facility] [address] [place] [address] Dr. Katrin Ceja EO # 0.2 103/ul Normal 0.0-0.7 [facility] Comment on above: Performed By: #### C BC #### [facility] [address] [place] [address] Dr. Katrin Ceja Eosinophils/100 WBC (Bld) 2.4 % Normal 0.9-7.0 [facility] Comment on above: Performed By: #### C BC #### [facility] [address] [place] [address] Dr. Katrin Ceja Erythrocyte distribution width (RBC) [Ratio] 12.5 % Normal 11.0-15.0 [facility] Comment on above: Performed By: #### C BC #### [facility] [address] [place] [address] Dr. Katrin Ceja Hematocrit (Bld) [Volume fraction] 37.4 % Normal 36.0-48.0 [facility] Comment on above: Performed By: #### C BC #### [facility] [address] [place] [address] Dr. Katrin Ceja Hemoglobin (Bld) [Mass/Vol] 12.3 g/dL Normal 12.0-16.0 [facility] Comment on above: Performed By: #### C BC #### [facility] [address] [place] [address] Dr. Katrin Ceja IG # 0.05 10e3/ul Critically high 0.00-0.03 [facility] Comment on above: Performed By: #### C BC #### [facility] [address] [place] [address] Dr. Katrin Ceja IG % 0.5 % Normal 0.0-0.5 [facility] Comment on above: Performed By: #### C BC #### [facility] [address] [place] [address] Dr. Katrin Ceja LYMPH # 3.1 103/ul Normal 1.2-3.8 [facility] Comment on above: Performed By: #### C BC #### [facility] [address] [place] [address] Dr. Katrin Ceja Lymphocytes/100 WBC (Bld) 31.7 % Normal 20.5-60.0 [facility] Comment on above: Performed By: #### C BC #### [facility] [address] [place] [address] Dr. Katrin Ceja MANUAL DIFF REQ NO Normal [facility] Comment on above: Performed By: #### C BC #### [facility] [address] [place] [address] Dr. Katrin Ceja MCH (RBC) [Entitic mass] 28.9 pg Normal 26.7-34.0 [facility] Comment on above: Performed By: #### C BC #### [facility] [address] [place] [address] Dr. Katrin Ceja MCHC (RBC) [Mass/Vol] 32.9 g/dL Normal 29.9-35.2 [facility] Comment on above: Performed By: #### C BC #### [facility] [address] [place] [address] Dr. Katrin Ceja MCV (RBC) [Entitic vol] 88.0 fL Normal 81.0-99.0 [facility] Comment on above: Performed By: #### C BC #### [facility] [address] [place] [address] Dr. Katrin Ceja MONO # 0.7 103/ul Normal 0.3-0.8 [facility] Comment on above: Performed By: #### C BC #### [facility] [address] [place] [address] Dr. Katrin Ceja Monocytes/100 WBC (Bld) 6.7 % Normal 1.7-12.0 [facility] Comment on above: Performed By: #### C BC #### [facility] [address] [place] [address] Dr. Katrin Ceja NEUT # 5.7 103/ul Normal 1.4-6.5 [facility] Comment on above: Performed By: #### C BC #### [facility] [address] [place] [address] Dr. Katrin Ceja Neutrophils/100 WBC (Bld) 58.4 % Normal 43.0-75.0 [facility] Comment on above: Performed By: #### C BC #### [facility] [address] [place] [address] Dr. Katrin Ceja Platelet mean volume (Bld) [Entitic vol] 8.8 fL Critically low 9.5-13.5 [facility] Comment on above: Performed By: #### C BC #### [facility] [address] [place], [place] [address] Dr. Katrin Ceja PLT 265 103/ul Normal 150-450 [facility] Comment on above: Performed By: #### C BC #### [facility] [id number] Katrin Ceja RBC 4.25 106/ul Normal 4.20-5.40 [facility] Comment on above: Performed By: #### C BC #### [facility] [address] [place], [place] [address] Dr. Katrin Ceja WBC 9.7 103/ul Normal 4.0-11.0 [facility] Comment on above: Performed By: #### C BC #### [facility] [id number] Katrin Ceja CT ABD/PELV W CONon 09-19-19 CT ABD/PELV W CON EXAMINATION: CT ABD/ PELV W CON HISTORY: ABDOMINAL DISTENSION (GASEOUS) COMPARISON: 05/01/2021 TECHNIQUE: Helical CT scan of abdomen and pelvis with intravenous contrast. Sagittal and coronal reconstructions. Dose reduction techniques were achieved by using automated exposure control and/or adjustment of mA and/or kV according to patient size and/or use of iterative reconstruction technique. FINDINGS: TUBES AND IMPLANTS: None. LOWER CHEST: Unremarkable ABDOMEN and PELVIS ABDOMINAL WALL AND SOFT TISSUES: Unremarkable. BONES: Unremarkable ARTERIES: [Separate origins of the left gastric and common hepatic arteries. No aortic aneurysm. VEINS: Unremarkable. LYMPH NODES: Unremarkable. PERITONEUM/ RETROPERITONEUM: Unremarkable. BOWEL: Unremarkable. APPENDIX: Normal. LIVER: Hepatic steatosis. Enlarged measuring 20 centimeters GALLBLADDER: Status post cholecystectomy interval. Near-complete resolution of fluid in the gallbladder fossa. Residual well-circumscribed small oval collection with a focus of air persists measuring 2.8 centimeters. BILE DUCTS: Not dilated SPLEEN: Unremarkable PANCREAS: Unremarkable. ADRENALS: Unremarkable. KIDNEYS/ URETERS: Unremarkable. REPRODUCTIVE ORGANS: Unremarkable URINARY BLADDER: Unremarkable. IMPRESSION: No evidence of acute intra-abdominal or intrapelvic process. Hepatomegaly and hepatic steatosis. Status post cholecystectomy. Interval near complete resolution of fluid in the gallbladder fossa. Residual well-circumscribed small oval collection with a small focus of air persists and measures 2.8 centimeters Electronically authenticated by: ISAIAH FAROOQ Date: 2021-09-18 03:51 Normal [facility] ER URINE PROFILEon 2 Bilirubin Ql (U) Negative Normal NEGATIVE [facility] Comment on above: Performed By: #### C BC #### [facility] [address] [place] [address] Dr. Katrin Ceja Clarity (U) CLEAR Normal CLEAR [facility] Comment on above: Performed By: #### C BC #### [facility] [address] [place] [address] Dr. Katrin Ceja Color (U) LT. YELLOW Normal YELLOW [facility] Comment on above: Performed By: #### C BC #### [facility] [address] [place] [address] Dr. Katrin Ceja ERUAHD A micrscopic examina tion will be performed if indicated. Normal [facility] Comment on above: Performed By: #### C BC #### [facility] [address] [place] [address] Dr. Katrin Ceja Glucose Ql (U) Negative Normal NEGATIVE [facility] Comment on above: Performed By: #### C BC #### [facility] [address] [place] [address] Dr. Katrin Ceja Hemoglobin Ql (U) SMALL Abnormal NEGATIVE [facility] [place] [facility] Comment on above: Performed By: #### C BC #### [facility] [address] [place] [address] Dr. Katrin Ceja Ketones Ql (U) Negative Normal NEGATIVE [facility] Comment on above: Performed By: #### C BC #### [facility] [address] [place] [address] Dr. Katrin Ceja LEUKOCYTES Negative Normal NEGATIVE [facility] Comment on above: Performed By: #### C BC #### [facility] [address] [place] [address] Dr. Katrin Ceja Nitrite Ql (U) Negative Normal NEGATIVE [facility] Comment on above: Performed By: #### C BC #### [facility] [address] [place] [address] Dr. Katrin Ceja pH (U) 7.5 [pH] Normal 5-9 [facility] Comment on above: Performed By: #### C BC #### [facility] [address] [place] [address] Dr. Katrin Ceja SPEC GRAVITY 1.010 Normal 1.005-<=1. 025 [facility] Comment on above: Performed By: #### C BC #### [facility] [address] [place] [address] Dr. Katrin Ceja UA PROTEIN Negative Normal NEGATIVE/ TRACE [facility] Comment on above: Performed By: #### C BC #### [facility] [address] [place] [address] Dr. Katrin Ceja UR MICRO IND INDICATED Normal [facility] Comment on above: Performed By: #### C BC #### [facility] [address] [place] [address] Dr. Katrin Ceja Urobilinogen Qn (U) 0.2 {Jeannie'U}/dL Normal 0.2 - 1. 0 [facility] Comment on above: Performed By: #### C BC #### [facility] [address] [place] [address] Dr. Katrin Ceja LIPASEon 09-18-2021 Lipase [Catalytic activity/Vol] 81.0 U/L Normal 23.0-300.0 [facility] Comment on above: Performed By: #### P REG #### [facility] [address] [place] [address] Dr. Katrin Ceja URon 09-18-2021 , QUAL Negative Normal NEGATIVE [facility] Comment on above: Performed By: #### C BC #### [facility] [address] [place] [address] Dr. Katrin Ceja PROF 14(COMP METB)on 022 Albumin [Mass/Vol] 3.2 g/dL Critically low 3.5-5.0 [facility] Comment on above: Performed By: #### P REG #### [facility] [address] [address] [address] Katrin Ceja Albumin/Globulin [Mass ratio] 0.8 {ratio} Normal [facility] Comment on above: Performed By: #### P REG #### [facility] [address] [address] [address] Katrin Ceja ALP [Catalytic activity/Vol] 216 U/L Critically high 38-126 [facility] Comment on above: Performed By: #### P REG #### [facility] [address] [place] [address] Dr. Katrin Ceja ALT [Catalytic activity/Vol] 109 U/L Critically high 9-52 [facility] Comment on above: Performed By: #### P REG #### [facility] [address] [place] [address] Dr. Katrin Ceja Anion gap [Moles/Vol] 10.5 mmol/L Normal [facility] Comment on above: Performed By: #### P REG #### [facility] [address] [place] [address] Dr. Katrin Ceja AST [Catalytic activity/Vol] 66 U/L Critically high 14-36 [facility] Comment on above: Performed By: #### P REG #### [facility] [address] [place] [address] Dr. Katrin Ceja Bilirubin [Mass/Vol] 0.2 mg/dL Normal 0.2-1.3 [facility] Comment on above: Performed By: #### P REG #### [facility] [address] [place] [address] Dr. Katrin Ceja Calcium [Mass/Vol] 8.3 mg/dL Critically low 8.4-10.2 [facility] Comment on above: Performed By: #### P REG #### [facility] [address] [place] [address] Dr. Katrin Ceja Chloride [Moles/Vol] 103 mmol/L Normal 98-107 [facility] Comment on above: Performed By: #### P REG #### [facility] [address] [place] [address] Dr. Katrin Ceja CO2 [Moles/Vol] 26.2 mmol/L Normal 22.0-30.0 [facility] Comment on above: Performed By: #### P REG #### [facility] [address] [place] [address] Dr. Katrin Ceja Creatinine [Mass/Vol] 0.81 mg/dL Normal 0.52-1.04 [facility] Comment on above: Performed By: #### P REG #### [facility] [address] [address] [address] Katrin Ceja EGFR-AF CITIZEN OF [place] >60 Normal >=60 [facility] Comment on above: Performed By: #### P REG #### [facility] [address] [place] [address] Dr. Katrin Ceja EGFR-NON AF CITIZEN OF [place] >60 Normal >=60 [facility] Comment on above: Performed By: #### P REG #### [facility] [address] [place] [address] Dr. Katrin Ceja Globulin (S) [Mass/Vol] 4.1 g/dL Normal [facility] Comment on above: Performed By: #### P REG #### [facility] [address] [place] [address] Dr. Katrin Ceja Glucose [Mass/Vol] 90 mg/dL Normal 74-106 [facility] Comment on above: Performed By: #### P REG #### [facility] [address] [place] [address] Dr. Katrin Ceja Potassium [Moles/Vol] 3.7 mmol/L Normal 3.4-5.0 [facility] Comment on above: Performed By: #### P REG #### [facility] [address] [place] [address] Dr. Katrin Ceja Protein [Mass/Vol] 7.3 g/dL Normal 6.1-8.2 [facility] Comment on above: Performed By: #### P REG #### [facility] [address] [place] [address] Dr. Katrin Ceja Sodium [Moles/Vol] 136 mmol/L Critically low 137-145 [facility] Comment on above: Performed By: #### P REG #### [facility] [address] [address] [address] Katrin Ceja Urea nitrogen [Mass/Vol] 5.0 mg/dL Critically low 7.0-17.0 [facility] Comment on above: Performed By: #### P REG #### [facility] [address] [place] [address] Dr. Katrin Ceja Urea nitrogen/Creatinine [Mass ratio] 6.2 mg/mg Normal [facility] Comment on above: Performed By: #### P REG #### [facility] [address] [place] [address] Dr. Katrin Ceja URINE MICROSCOPIC ONLYon BACTERIA NONE SEEN Normal NONE SEEN [facility] Comment on above: Performed By: #### C BC #### [facility] [address] [place] [address] Dr. Katrin Ceja Bacteria identified Cx Nom (U) NOT INDICATED Normal [facility] Comment on above: Performed By: #### C BC #### [facility] [address] [place] [address] Dr. Katrin Ceja CAST NONE SEEN Normal NONE SEEN [facility] Comment on above: Performed By: #### C BC #### [facility] [address] [place] [address] Dr. Katrin Ceja Crystals LM Nom (Urine sed) NONE SEEN Normal NONE SEEN [facility] Comment on above: Performed By: #### C BC #### [facility] [address] [place] [address] Dr. Katrin Ceja Epithelial cells LM Ql (Urine sed) FEW Abnormal NONE SEEN /RARE [facility] Comment on above: Performed By: #### C BC #### [facility] [address] [place] [address] Dr. Katrin Ceja MUCOUS NONE SEEN Normal NONE SEEN [facility] Comment on above: Performed By: #### C BC #### [facility] [address] [place] [address] Dr. Katrin Ceja RBC NONE SEEN Abnormal 0-2 [facility] Comment on above: Performed By: #### C BC #### [facility] [address] [place] [address] Dr. Katrin Ceja WBC NONE SEEN Normal NONE SEEN [facility] Comment on above: Performed By: #### C BC #### [facility] [address] [place] [address] Dr. Katrin Ceja XR ABD FLAT UP_PA Bret 09-18 XR ABD FLAT UP_PA CH XR ABD FLAT UP_PA C H 09/18/2021 12:27 AM EST CLINICAL INDICATION: Constipation COMPARISON: CT abdomen and pelvis 05/01/2021 TECHNIQUE: Upright and supine AP views of the chest, abdomen and pelvis. FINDINGS: No definite free intraperitoneal air, portal venous gas or pneumatosis intestinalis. The bowel gas pattern is nonobstructive. Stool filled colon. The regional bones are within normal limits. IMPRESSION: Nonobstructive bowel gas pattern. Stool-filled colon. Electronically authenticated by: ISAIAH FAROOQ Date: 2021-09-18 02:00 Normal [facility] CBC AUTO DIFFon 07-18-2021 BASO # 0.0 103/ul Normal 0.0-0.1 [facility] Comment on above: Performed By: #### C BC #### [facility] [address] [place] [address] Dr. Katrin Ceja Basophils/100 WBC (Bld) 0.3 % Normal 0.2-2.0 [facility] Comment on above: Performed By: #### C BC #### [facility] [address] [place] [address] Dr. Katrin Ceja EO # 0.2 103/ul Normal 0.0-0.7 [facility] Comment on above: Performed By: #### C BC #### [facility] [address] [place] [address] Dr. Katrin Ceja Eosinophils/100 WBC (Bld) 1.7 % Normal 0.9-7.0 [facility] Comment on above: Performed By: #### C BC #### [facility] [address] [place] [address] Dr. Katrin Ceja Erythrocyte distribution width (RBC) [Ratio] 13.1 % Normal 11.0-15.0 [facility] Comment on above: Performed By: #### C BC #### [facility] [address] [place] [address] Dr. Katrin Ceja Hematocrit (Bld) [Volume fraction] 42.0 % Normal 36.0-48.0 [facility] Comment on above: Performed By: #### C BC #### [facility] [address] [place] [address] Dr. Katrin Ceja Hemoglobin (Bld) [Mass/Vol] 13.7 g/dL Normal 12.0-16.0 [facility] Comment on above: Performed By: #### C BC #### [facility] [address] [place] [address] Dr. Katrin Ceja IG # 0.07 10e3/ul Critically high 0.00-0.03 [facility] Comment on above: Performed By: #### C BC #### [facility] [address] [place] [address] Dr. Katrin Ceja IG % 0.6 % Critically high 0.0-0.5 [facility] Comment on above: Performed By: #### C BC #### [facility] [address] [place] [address] Dr. Katrin Ceja LYMPH # 2.9 103/ul Normal 1.2-3.8 [facility] Comment on above: Performed By: #### C BC #### [facility] [address] [place] [address] Dr. Katrin Ceja Lymphocytes/100 WBC (Bld) 27.1 % Normal 20.5-60.0 [facility] Comment on above: Performed By: #### C BC #### [facility] [address] [place] [address] Dr. Katrin Ceja MANUAL DIFF REQ NO Normal [facility] Comment on above: Performed By: #### C BC #### [facility] [address] [place] [address] Dr. Katrin Ceja MCH (RBC) [Entitic mass] 29.3 pg Normal 26.7-34.0 [facility] Comment on above: Performed By: #### C BC #### [facility] [address] [address] [address] Katrin Ceja MCHC (RBC) [Mass/Vol] 32.6 g/dL Normal 29.9-35.2 [facility] Comment on above: Performed By: #### C BC #### [facility] [address] [address] [address] Katrin Ceja MCV (RBC) [Entitic vol] 89.7 fL Normal 81.0-99.0 [facility] Comment on above: Performed By: #### C BC #### [facility] [address] [address] [address] Katrin Ceja MONO # 0.9 103/ul Critically high 0.3-0.8 [facility] Comment on above: Performed By: #### C BC #### [facility] [address] [address] [address] Katrin Ceja Monocytes/100 WBC (Bld) 8.2 % Normal 1.7-12.0 [facility] Comment on above: Performed By: #### C BC #### [facility] [address] [place] [address] Dr. Katrin Ceja NEUT # 6.7 103/ul Critically high 1.4-6.5 [facility] Comment on above: Performed By: #### C BC #### [facility] [address] [place] [address] Dr. Katrin Ceja Neutrophils/100 WBC (Bld) 62.1 % Normal 43.0-75.0 [facility] Comment on above: Performed By: #### C BC #### [facility] [address] [address] [address] Katrin Ceja Platelet mean volume (Bld) [Entitic vol] 9.7 fL Normal 9.5-13.5 [facility] Comment on above: Performed By: #### C BC #### [facility] [address] [place] [address] Dr. Katrin Ceja PLT 334 103/ul Normal 150-450 [facility] Comment on above: Performed By: #### C BC #### [facility] [address] [address] [address] Katrin Ceja RBC 4.68 106/ul Normal 4.20-5.40 [facility] Comment on above: Performed By: #### C BC #### [facility] [address] [address] [address] Katrin Ceja WBC 10.8 103/ul Normal 4.0-11.0 [facility] Comment on above: Performed By: #### C BC #### [facility] [address] [address] [address] Katrin Ceja GLYCOHEMOGLOBIN A1Con 2021 ADA RECOMMENDATION ADA THERAPEUTIC TARG ET 6.0 - 7.0 ACTION SUGGESTED > 7.0 Normal [facility] Comment on above: Performed By: #### C BC #### [facility] [address] [place] [address] Dr. Katrin Ceja Glucose [Mass/Vol] 105 mg/dL Normal [facility] Comment on above: Performed By: #### C BC #### [facility] [address] [place] [address] Dr. Katrin Ceja HbA1c (Bld) [Mass fraction] 5.3 % Normal <=6.0 [facility] Comment on above: Performed By: #### C BC #### [facility] [address] [place] [address] Dr. Katrin Ceja LIPID PROFILEon 07-18-2021 CHOL-HDL RATIO NORM SEE BELOW Normal [facility] Comment on above: Result Comment: 3.3 - 4.4 LOW RISK 4.4 - 7.1 AVERAGE RISK 7.1 - 11.0 MODERATE RISK >11.0 HIGH RISK Performed By: #### L IPID, CMP #### [facility] [address] [place] [address] Dr. Katrin Ceja Cholesterol [Mass/Vol] 302 mg/dL Critically high <=200 [facility] Comment on above: Performed By: #### L IPID, CMP #### [facility] [address] [address] [address] Katrin Ceja Cholesterol in HDL [Mass/Vol] 39 mg/dL Normal [facility] Comment on above: Performed By: #### L IPID, CMP #### [facility] [address] [place] [address] Dr. Katrin Ceja Cholesterol in LDL [Mass/Vol] 207.0 mg/dL Normal [facility] Comment on above: Performed By: #### L IPID, CMP #### [facility] [address] [place] [address] Dr. Katrin Ceja Cholesterol.total/Chol esterol in HDL [Mass ratio] 7.7 {ratio} Normal [facility] Comment on above: Performed By: #### L IPID, CMP #### [facility] [address] [place] [address] Dr. Katrin Ceja HDL NORMAL > or = 60 mg/dl - LO W CARDIOVASCULAR RISK <40 mg/dl - HIGH CARDIOVASCULAR RISK Normal [facility] Comment on above: Performed By: #### L IPID, CMP #### [facility] [address] [place] [address] Dr. Katrin Ceja LDL CALC NORMAL SEE BELOW Normal [facility] Comment on above: Result Comment: <100 mg/dl OPTIMAL 100 - 129 mg/dl NEAR OR ABOVE OPTIMAL 130 - 159 mg/dl BORDERLINE HIGH 160 - 189 mg/dl HIGH >190 mg/dl VERY HIGH Performed By: #### L IPID, CMP #### [facility] [address] [place] [address] Dr. Katrin Ceja Triglyceride [Mass/Vol] 280 mg/dL Critically high <=150 [facility] Comment on above: Performed By: #### L IPID, CMP #### [facility] [address] [place] [address] Dr. Katrin Ceja VLDL CALC 56.0 mg/dL Normal [facility] Comment on above: Performed By: #### L IPID, CMP #### [facility] [address] [place] [address] Dr. Katrin Ceja PROF 14(COMP METB)on 022 Albumin [Mass/Vol] 3.5 g/dL Normal 3.5-5.0 [facility] Comment on above: Performed By: #### L IPID, CMP #### [facility] [address] [address] [address] Katrin Ceja Albumin/Globulin [Mass ratio] 0.7 {ratio} Normal [facility] Comment on above: Performed By: #### L IPID, CMP #### [facility] [address] [address] [address] Katrin Ceja ALP [Catalytic activity/Vol] 291 U/L Critically high 38-126 [facility] Comment on above: Performed By: #### L IPID, CMP #### [facility] [address] [address] [address] Katrin Ceja ALT [Catalytic activity/Vol] 174 U/L Critically high 9-52 [facility] Comment on above: Performed By: #### L IPID, CMP #### [facility] [address] [address] [address] Katrin Ceja Anion gap [Moles/Vol] 15.3 mmol/L Normal [facility] Comment on above: Performed By: #### L IPID, CMP #### [facility] [address] [place] [address] Dr. Katrin Ceja AST [Catalytic activity/Vol] 97 U/L Critically high 14-36 [facility] Comment on above: Performed By: #### L IPID, CMP #### [facility] [address] [address] [address] Katrin Ceja Bilirubin [Mass/Vol] 0.4 mg/dL Normal 0.2-1.3 [facility] Comment on above: Performed By: #### L IPID, CMP #### [facility] [address] [place] [address] Dr. Katrin Ceja Calcium [Mass/Vol] 9.3 mg/dL Normal 8.4-10.2 [facility] Comment on above: Performed By: #### L IPID, CMP #### [facility] [address] [place] [address] Dr. Katrin Ceja Chloride [Moles/Vol] 99 mmol/L Normal 98-107 [facility] Comment on above: Performed By: #### L IPID, CMP #### [facility] [address] [place] [address] Dr. Katrin Ceja CO2 [Moles/Vol] 24.1 mmol/L Normal 22.0-30.0 [facility] Comment on above: Performed By: #### L IPID, CMP #### [facility] [address] [place] [address] Dr. Katrin Ceja Creatinine [Mass/Vol] 0.65 mg/dL Normal 0.52-1.04 [facility] Comment on above: Performed By: #### L IPID, CMP #### [facility] [address] [place] [address] Dr. Katrin Ceja EGFR-AF CITIZEN [place] >60 Normal >=60 [facility] Comment on above: Performed By: #### L IPID, CMP #### [facility] [address] [place] [address] Dr. Katrin Ceja EGFR-NON AF CITIZEN OF [place] >60 Normal >=60 [facility] Comment on above: Performed By: #### L IPID, CMP #### [facility] [address] [place] [address] Dr. Katrin Ceja Globulin (S) [Mass/Vol] 5.0 g/dL Normal [facility] Comment on above: Performed By: #### L IPID, CMP #### [facility] [address] [place] [address] Dr. Katrin Ceja Glucose [Mass/Vol] 86 mg/dL Normal 74-106 [facility] Comment on above: Performed By: #### L IPID, CMP #### [facility] [address] [place] [address] Dr. Katrin Ceja Potassium [Moles/Vol] 4.4 mmol/L Normal 3.4-5.0 [facility] Comment on above: Performed By: #### L IPID, CMP #### [facility] [address] [place] [address] Dr. Katrin Ceja Protein [Mass/Vol] 8.5 g/dL Critically high 6.1-8.2 [facility] Comment on above: Performed By: #### L IPID, CMP #### [facility] [address] [place] [address] Dr. Katrin Ceja Sodium [Moles/Vol] 134 mmol/L Critically low 137-145 [facility] Comment on above: Performed By: #### L IPID, CMP #### [facility] [address] [place] [address] Dr. Katrin Ceja Urea nitrogen [Mass/Vol] 8.0 mg/dL Normal 7.0-17.0 [facility] Comment on above: Performed By: #### L IPID, CMP #### [facility] [address] [place] [address] Dr. Katrin Ceja Urea nitrogen/Creatinine [Mass ratio] 12.3 mg/mg Normal [facility] Comment on above: Performed By: #### L IPID, CMP #### [facility] [address] [place] [address] Dr. Katrin Ceja AMYLASEon 05-01-2021 AMYL <30 Critically low 31-110 [facility] Comment on above: Performed By: #### P REG #### [facility] [address] [place] [address] Dr. Katrin Ceja CBC AUTO DIFFon 05-01-2021 BASO # 0.0 103/ul Normal 0.0-0.1 [facility] Comment on above: Performed By: #### L IPID, CMP #### [facility] [address] [place] [address] Dr. Katrin Ceja Basophils/100 WBC (Bld) 0.3 % Normal 0.2-2.0 [facility] Comment on above: Performed By: #### L IPID, CMP #### [facility] [address] [place] [address] Dr. Katrin Ceja EO # 0.1 103/ul Normal 0.0-0.7 [facility] Comment on above: Performed By: #### L IPID, CMP #### [facility] [address] [address] [address] Katrin Ceja Eosinophils/100 WBC (Bld) 0.4 % Critically low 0.9-7.0 [facility] Comment on above: Performed By: #### L IPID, CMP #### [facility] [address] [place] [address] Dr. Katrin Ceja Erythrocyte distribution width (RBC) [Ratio] 13.0 % Normal 11.0-15.0 [facility] Comment on above: Performed By: #### L IPID, CMP #### [facility] [address] [place] [address] Dr. Katrin Ceja Hematocrit (Bld) [Volume fraction] 37.7 % Normal 36.0-48.0 [facility] Comment on above: Performed By: #### L IPID, CMP #### [facility] [address] [place] [address] Dr. Katrin Ceja Hemoglobin (Bld) [Mass/Vol] 12.5 g/dL Normal 12.0-16.0 [facility] Comment on above: Performed By: #### L IPID, CMP #### [facility] [address] [place] [address] Dr. Katrin Ceja IG # 0.09 10e3/ul Critically high 0.00-0.03 [facility] Comment on above: Performed By: #### L IPID, CMP #### [facility] [address] [place] [address] Dr. Katrin Ceja IG % 0.6 % Critically high 0.0-0.5 [facility] Comment on above: Performed By: #### L IPID, CMP #### [facility] [address] [place] [address] Dr. Katrin Ceja LYMPH # 1.9 103/ul Normal 1.2-3.8 [facility] Comment on above: Performed By: #### L IPID, CMP #### [facility] [address] [place] [address] Dr. Katrin Ceja Lymphocytes/100 WBC (Bld) 12.1 % Critically low 20.5-60.0 [facility] Comment on above: Performed By: #### L IPID, CMP #### [facility] [address] [place] [address] Dr. Katrin Ceja MANUAL DIFF REQ NO Normal [facility] Comment on above: Performed By: #### L IPID, CMP #### [facility] [address] [place] [address] Dr. Katrin Ceja MCH (RBC) [Entitic mass] 28.8 pg Normal 26.7-34.0 [facility] Comment on above: Performed By: #### L IPID, CMP #### [facility] [address] [place] [address] Dr. Katrin Ceja MCHC (RBC) [Mass/Vol] 33.2 g/dL Normal 29.9-35.2 [facility] Comment on above: Performed By: #### L IPID, CMP #### [facility] [address] [place] [address] Dr. Katrin Ceja MCV (RBC) [Entitic vol] 86.9 fL Normal 81.0-99.0 [facility] Comment on above: Performed By: #### L IPID, CMP #### [facility] [address] [place] [address] Dr. Katrin Ceja MONO # 1.1 103/ul Critically high 0.3-0.8 [facility] Comment on above: Performed By: #### L IPID, CMP #### [facility] [address] [place] [address] Dr. Katrin Ceja Monocytes/100 WBC (Bld) 7.1 % Normal 1.7-12.0 [facility] Comment on above: Performed By: #### L IPID, CMP #### [facility] [address] [place] [address] Dr. Katrin Ceja NEUT # 12.3 103/ul Critically high 1.4-6.5 [facility] Comment on above: Performed By: #### L IPID, CMP #### [facility] [address] [place] [address] Dr. Katrin Ceja Neutrophils/100 WBC (Bld) 79.5 % Critically high 43.0-75.0 [facility] Comment on above: Performed By: #### L IPID, CMP #### [facility] [address] [address] [address] Katrin Ceja Platelet mean volume (Bld) [Entitic vol] 8.7 fL Critically low 9.5-13.5 [facility] Comment on above: Performed By: #### L IPID, CMP #### [facility] [address] [address] [address] Katrin Ceja PLT 329 103/ul Normal 150-450 [facility] Comment on above: Performed By: #### L IPID, CMP #### [facility] [address] [address] [address] Katrin Ceja RBC 4.34 106/ul Normal 4.20-5.40 [facility] Comment on above: Performed By: #### L IPID, CMP #### [facility] [address] [address] [address] Katrin Ceja WBC 15.5 103/ul Critically high 4.0-11.0 [facility] Comment on above: Performed By: #### L IPID, CMP #### [facility] [address] [place] [address] ABD/PELV W CONon 05-01-[address] ABD/PELV W CON CT ABD/PELV W CON CLINICAL HISTORY: Right upper quadrant abdominal pain. Postoperative pain with cholecystectomy on 04/24/2021. COMPARISON: 11/10/2020. TECHNIQUE: Axial CT from lung bases through symphysis pubis following the injection of 100 mL of Omnipaque 300 iodinated contrast material. No oral contrast. Coronal and sagittal reconstructions generated. Dose reduction techniques were achieved by using automated exposure control and/or adjustment of mA and/or kV according to patient size and/or use of iterative reconstruction technique. FINDINGS: CT ABDOMEN FINDINGS: Normal heart size. Small patchy airspace opacities in the lung bases, atelectasis versus aspiration, correlate clinically. Trace effusions. There has been an interval cholecystectomy. There is a mixed gas and fluid but predominantly fluid containing collection in the gallbladder fossa up to 7.6 x 4.7 cm. The liver itself is grossly intact. Normal splenic size and enhancement. Normal-sized adrenal glands. There is no significant common duct dilatation. Normal pancreatic enhancement without peripancreatic edema. Normal bilateral renal enhancement with slight lobulation but no focal. No hydronephrosis. Normal caliber abdominal aorta with patent branch vessels. GI tract nondilated without obstruction. Moderate to large retained stool throughout much of the colon. No significant inflammatory change around the bowel. CT PELVIS FINDINGS: Uterus and ovaries are unremarkable for patient age with 3.4 cm right-sided cyst and 3.3 cm left-sided cyst. Urinary bladder is unremarkable. No acute bony process. There is a small amount of free fluid in the pelvis which could relate to the cholecystectomy versus physiologic and/or cyst rupture. IMPRESSION: Cholecystectomy with mixed gas and fluid collection in the gallbladder fossa. This would be amenable to percutaneous drainage if indicated. HIDA scan should be considered to exclude any bile leak. There is normal common duct size. Lung bases with slight pleural effusions and small patchy airspace opacities. May represent atelectasis but cannot exclude a small amount of aspiration. There are bilateral ovarian cysts with small amount of free fluid in the pelvis, physiologic versus cystic structure and/or related to the cholecystectomy. Electronically authenticated by: HILDA RAHMAN Date: 2021-05-01 20:30 Normal [facility] LIPASEon 05-01-2021 Lipase [Catalytic activity/Vol] 64.0 U/L Normal 23.0-300.0 [facility] Comment on above: Performed By: #### P REG #### [facility] [address] [place] [address] Dr. Katrin Ceja LIVER PROFILEon 05-01-2021 Albumin [Mass/Vol] 3.3 g/dL Critically low 3.5-5.0 [facility] Comment on above: Performed By: #### L IPID, CMP #### [facility] [address] [place] [address] Dr. Katrin Ceja Albumin/Globulin [Mass ratio] 0.6 {ratio} Normal [facility] Comment on above: Performed By: #### L IPID, CMP #### [facility] [address] [place] [address] Dr. Katrin Ceja ALP [Catalytic activity/Vol] 412 U/L Critically high 38-126 [facility] Comment on above: Performed By: #### L IPID, CMP #### [facility] [address] [address] [address] Katrin Ceja ALT [Catalytic activity/Vol] 124 U/L Critically high 9-52 [facility] Comment on above: Performed By: #### L IPID, CMP #### [facility] [address] [address] [address] Katrin Ceja AST [Catalytic activity/Vol] 61 U/L Critically high 14-36 [facility] Comment on above: Performed By: #### L IPID, CMP #### [facility] [address] [place] [address] Dr. Katrin Ceja BILI, CONJUGATED 0.2 mg/dL Normal 0.0-0.3 [facility] Comment on above: Performed By: #### L IPID, CMP #### [facility] [address] [place] [address] Dr. Katrin Ceja Bilirubin [Mass/Vol] 0.4 mg/dL Normal 0.2-1.3 [facility] Comment on above: Performed By: #### L IPID, CMP #### [facility] [address] [place] [address] Dr. Katrin Ceja Globulin (S) [Mass/Vol] 5.1 g/dL Normal [facility] Comment on above: Performed By: #### L IPID, CMP #### [facility] [address] [place] [address] Dr. Katrin Ceja Protein [Mass/Vol] 8.4 g/dL Critically high 6.1-8.2 [facility] Comment on above: Performed By: #### L IPID, CMP #### [facility] [address] [place] [address] Dr. Katrin Ceja PREG HCG QUALon 05-01-2021 , QUAL Negative Normal NEGATIVE [facility] Comment on above: Performed By: #### P REG #### [facility] [address] [place] [address] Dr. Katrin Ceja PROF CHEM 8 (BAS METB)on Anion gap [Moles/Vol] 17.1 mmol/L Normal [facility] Comment on above: Performed By: #### P REG #### [facility] [address] [address] [address] Katrin Ceja Calcium [Mass/Vol] 8.9 mg/dL Normal 8.4-10.2 [facility] Comment on above: Performed By: #### P REG #### [facility] [address] [address] [address] Katrin Ceja Chloride [Moles/Vol] 100 mmol/L Normal 98-107 [facility] Comment on above: Performed By: #### P REG #### [facility] [address] [place] [address] Dr. Katrin Ceja CO2 [Moles/Vol] 21.1 mmol/L Critically low 22.0-30.0 [facility] Comment on above: Performed By: #### P REG #### [facility] [address] [address] [address] Katrin Ceja Creatinine [Mass/Vol] 0.78 mg/dL Normal 0.52-1.04 [facility] Comment on above: Performed By: #### P REG #### [facility] [address] [place] [address] Dr. Katrin Ceja EGFR-AF CITIZEN OF [place] >60 Normal >=60 [facility] Comment on above: Performed By: #### P REG #### [facility] [address] [address] [address] Katrin Ceja EGFR-NON AF CITIZEN OF [place] >60 Normal >=60 [facility] Comment on above: Performed By: #### P REG #### [facility] [address] [address] [address] Katrin Ceja Glucose [Mass/Vol] 97 mg/dL Normal 74-106 [facility] Comment on above: Performed By: #### P REG #### [facility] [address] [place] [address] Dr. Katrin Ceja Potassium [Moles/Vol] 4.2 mmol/L Normal 3.4-5.0 [facility] Comment on above: Performed By: #### P REG #### [facility] [address] [place] [address] Dr. Katrin Ceja Sodium [Moles/Vol] 134 mmol/L Critically low 137-145 [facility] Comment on above: Performed By: #### P REG #### [facility] [address] [place] [address] Dr. Katrin Ceja Urea nitrogen [Mass/Vol] 6.0 mg/dL Critically low 7.0-17.0 [facility] Comment on above: Performed By: #### P REG #### [facility] [address] [place] [address] Dr. Katrin Ceja Urea nitrogen/Creatinine [Mass ratio] 7.7 mg/mg Normal [facility] Comment on above: Performed By: #### P REG #### [facility] [address] [place] [address] Dr. Katrin Ceja CBC AUTO DIFFon 04-29-2021 BASO # 0.1 103/ul Normal 0.0-0.1 [facility] Comment on above: Performed By: #### L IPID, CMP #### [facility] [address] [place] [address] Dr. Katrin Ceja Basophils/100 WBC (Bld) 0.4 % Normal 0.2-2.0 [facility] Comment on above: Performed By: #### L IPID, CMP #### [facility] [address] [place] [address] Dr. Katirn Ceja EO # 0.2 103/ul Normal 0.0-0.7 [facility] Comment on above: Performed By: #### L IPID, CMP #### [facility] [address] [place] [address] Dr. Katrin Ceja Eosinophils/100 WBC (Bld) 1.7 % Normal 0.9-7.0 [facility] Comment on above: Performed By: #### L IPID, CMP #### [facility] [address] [place], [place] [id number] Dr. Katrin Ceja Erythrocyte distribution width (RBC) [Ratio] 12.9 % Normal 11.0-15.0 [facility] Comment on above: Performed By: #### L IPID, CMP #### [facility] [address] [place] [address] Dr. Katrin Ceja Hematocrit (Bld) [Volume fraction] 39.0 % Normal 36.0-48.0 [facility] Comment on above: Performed By: #### L IPID, CMP #### [facility] [address] [place] [address] Dr. Katrin Ceja Hemoglobin (Bld) [Mass/Vol] 12.9 g/dL Normal 12.0-16.0 [facility] Comment on above: Performed By: #### L IPID, CMP #### [facility] [address] [place] [address] Dr. Katrin Ceja IG # 0.08 10e3/ul Critically high 0.00-0.03 [facility] Comment on above: Performed By: #### L IPID, CMP #### [facility] [address] [place] [address] Dr. Katrin Ceja IG % 0.6 % Critically high 0.0-0.5 [facility] Comment on above: Performed By: #### L IPID, CMP #### [facility] [address] [place] [address] Dr. Katrin Ceja LYMPH # 3.2 103/ul Normal 1.2-3.8 [facility] Comment on above: Performed By: #### L IPID, CMP #### [facility] [address] [place] [address] Dr. Katrin Ceja Lymphocytes/100 WBC (Bld) 24.4 % Normal 20.5-60.0 [facility] Comment on above: Performed By: #### L IPID, CMP #### [facility] [address] [place] [address] Dr. Katrin Ceja MANUAL DIFF REQ NO Normal [facility] Comment on above: Performed By: #### L IPID, CMP #### [facility] [address] [address] [address] Katrin Ceja MCH (RBC) [Entitic mass] 29.1 pg Normal 26.7-34.0 [facility] Comment on above: Performed By: #### L IPID, CMP #### [facility] [address] [address] [address] Katrin Ceja MCHC (RBC) [Mass/Vol] 33.1 g/dL Normal 29.9-35.2 [facility] Comment on above: Performed By: #### L IPID, CMP #### [facility] [address] [place] [address] Dr. Katrin Ceja MCV (RBC) [Entitic vol] 88.0 fL Normal 81.0-99.0 [facility] Comment on above: Performed By: #### L IPID, CMP #### [facility] [address] [place] [address] Dr. Katrin Ceja MONO # 1.2 103/ul Critically high 0.3-0.8 [facility] Comment on above: Performed By: #### L IPID, CMP #### [facility] [address] [place] [address] Dr. Katrin Ceja Monocytes/100 WBC (Bld) 9.2 % Normal 1.7-12.0 [facility] Comment on above: Performed By: #### L IPID, CMP #### [facility] [address] [place] [address] Dr. Katrin Ceja NEUT # 8.3 103/ul Critically high 1.4-6.5 [facility] Comment on above: Performed By: #### L IPID, CMP #### [facility] [address] [address] [address] Katrin Ceja Neutrophils/100 WBC (Bld) 63.7 % Normal 43.0-75.0 [facility] Comment on above: Performed By: #### L IPID, CMP #### [facility] [address] [place] [address] Dr. Katrin Ceja Platelet mean volume (Bld) [Entitic vol] 9.2 fL Critically low 9.5-13.5 [facility] Comment on above: Performed By: #### L IPID, CMP #### [facility] [address] [address] [address] Katrin Ceja PLT 384 103/ul Normal 150-450 [facility] Comment on above: Performed By: #### L IPID, CMP #### [facility] [address] [address] [address] Katrin Ceja RBC 4.43 106/ul Normal 4.20-5.40 [facility] Comment on above: Performed By: #### L IPID, CMP #### [facility] [address] [address] [address] Katrin Ceja WBC 13.1 103/ul Critically high 4.0-11.0 [facility] Comment on above: Performed By: #### L IPID, CMP #### [facility] [address] [place] [address] ABD/PELV W CONon 04-29-20 CT ABD/PELV W CON EXAMINATION: CT ABD/ PELV W CON HISTORY: ABDOMINAL DISTENSION (GASEOUS) COMPARISON: CT abdomen and pelvis examination dated 11/10/2020. TECHNIQUE: Axial CT images through the abdomen and pelvis were obtained after the intravenous administration of 100 mL Omnipaque 300 contrast. Coronal and sagittal reformats were obtained. Dose reduction techniques were achieved by using automated exposure control and/or adjustment of mA and/or kV according to patient size and/or use of iterative reconstruction technique. FINDINGS: There are small bilateral pleural effusions with suspected bibasilar atelectasis, most pronounced dependently in the lower lobes. Abdomen: The liver and spleen enhance homogeneously without focal lesion. There is no intra or extrahepatic biliary duct dilatation. The gallbladder is surgically absent. There is complex material containing foci of air and fluid in the gallbladder resection bed measuring up to 7.6 x 5.5 x 6.9 cm (series 3, image 50 and series 6, image 76). The pancreas, adrenal glands, kidneys, and bowel loops, including the appendix, are unremarkable. There is no mesenteric or retroperitoneal lymphadenopathy. Pelvis: The bladder demonstrates wall thickening. The rectum is unremarkable. There is no iliac or inguinal lymphadenopathy. There are bilateral ovarian cystic structures measuring up to 4.5 x 3.4 cm on the left (series 3, image 138). Bone windows show no aggressive osseous lesions. IMPRESSION: 1. Postsurgical changes of a recent cholecystectomy with complex material containing foci of air and fluid in the gallbladder resection bed measuring up to 7.6 x 5.5 x 6.9 cm. Differential considerations include postsurgical changes though infection, including early abscess formation, is not excluded. Follow-up imaging is recommended to document resolution. 2. Urinary bladder wall thickening. Please correlate with urinalysis for infection. 3. Normal appendix. 4. Bilateral ovarian cysts measuring up to 4.5 x 3.4 cm. These could be further evaluated with a pelvic ultrasound examination if clinically indicated. 5. Small bilateral pleural effusions with likely bibasilar atelectasis. Electronically authenticated by: Lorenzo LAN Date: 2021-04-29 02:49 Normal [facility] LACTATE/LACTIC ACIDon 2020 Lactate [Moles/Vol] 1.2 mmol/L Normal 0.7-2.0 [facility] Comment on above: Performed By: #### C BC #### [facility] [address] [place] [address] Dr. Kartin Ceja PROF 14(COMP METB)on 021 Albumin [Mass/Vol] 3.4 g/dL Critically low 3.5-5.0 [facility] Comment on above: Performed By: #### C BC #### [facility] [address] [place] [address] Dr. Katrin Ceja Albumin/Globulin [Mass ratio] 0.7 {ratio} Normal [facility] Comment on above: Performed By: #### C BC #### [facility] [address] [address] [address] Katrin Ceja ALP [Catalytic activity/Vol] 359 U/L Critically high 38-126 [facility] Comment on above: Performed By: #### C BC #### [facility] [address] [address] [address] Katrin Ceja ALT [Catalytic activity/Vol] 193 U/L Critically high 9-52 [facility] Comment on above: Performed By: #### C BC #### [facility] [address] [address] [address] Katrin Ceja Anion gap [Moles/Vol] 13.3 mmol/L Normal [facility] Comment on above: Performed By: #### C BC #### [facility] [address] [address] [address] Katrin Ceja AST [Catalytic activity/Vol] 115 U/L Critically high 14-36 [facility] Comment on above: Performed By: #### C BC #### [facility] [address] [address] [address] Katrin Ceja Bilirubin [Mass/Vol] 0.5 mg/dL Normal 0.2-1.3 [facility] Comment on above: Performed By: #### C BC #### [facility] [address] [address] [address] Katrin Ceja Calcium [Mass/Vol] 9.5 mg/dL Normal 8.4-10.2 [facility] Comment on above: Performed By: #### C BC #### [facility] [address] [address] [address] Katrin Ceja Chloride [Moles/Vol] 101 mmol/L Normal 98-107 [facility] Comment on above: Performed By: #### C BC #### [facility] [address] [address] [address] Katrin Ceja CO2 [Moles/Vol] 23.7 mmol/L Normal 22.0-30.0 [facility] Comment on above: Performed By: #### C BC #### [facility] [address] [address] [address] Katrin Ceja Creatinine [Mass/Vol] 0.83 mg/dL Normal 0.52-1.04 [facility] Comment on above: Performed By: #### C BC #### [facility] [address] [address] [address] Katrin Ceja EGFR-AF [place] >60 Normal >=60 [facility] Comment on above: Performed By: #### C BC #### [facility] [address] [place] [address] Dr. Katrin Ceja EGFR-NON AF CITIZEN OF [place] >60 Normal >=60 [facility] Comment on above: Performed By: #### C BC #### [facility] [address] [address] [address] Katrin Ceja Globulin (S) [Mass/Vol] 5.1 g/dL Normal [facility] Comment on above: Performed By: #### C BC #### [facility] [address] [address] [address] Katrin Ceja Glucose [Mass/Vol] 102 mg/dL Normal 74-106 [facility] Comment on above: Performed By: #### C BC #### [facility] [address] [place] [address] Dr. Katrin Ceja Potassium [Moles/Vol] 4.0 mmol/L Normal 3.4-5.0 [facility] Comment on above: Performed By: #### C BC #### [facility] [address] [place] [address] Dr. Katrin Ceja Protein [Mass/Vol] 8.5 g/dL Critically high 6.1-8.2 [facility] Comment on above: Performed By: #### C BC #### [facility] [address] [place] [address] Dr. Katrin Ceja Sodium [Moles/Vol] 134 mmol/L Critically low 137-145 [facility] Comment on above: Performed By: #### C BC #### [facility] [address] [place] [address] Dr. Katrin Ceja Urea nitrogen [Mass/Vol] 6.0 mg/dL Critically low 7.0-17.0 [facility] Comment on above: Performed By: #### C BC #### [facility] [address] [place] [address] Dr. Kartin Ceja Urea nitrogen/Creatinine [Mass ratio] 7.2 mg/mg Normal [facility] Comment on above: Performed By: #### C BC #### [facility] [address] [place] [address] Dr. Katrin Ceja XR CHEST 1 Von 10-16-2021 XR CHEST 1 V CHEST X RAY, SINGLE VIEW CLINICAL INFORMATION: Chest pain. COMPARISONS: Chest x-ray dated 08/12/2020. FINDINGS: Basilar airspace disease which may represent atelectasis versus infection. No pleural effusions or pneumothorax. No overt pulmonary edema. Cardiomediastinal silhouette within normal limits. IMPRESSION: 1. Basilar airspace disease which may represent atelectasis versus infection. Electronically authenticated by: HILDA GU Date: 2021-04-28 23:45 Normal [facility] Acetaminophen (Tylenol) Leve thi 03-22-2019 Acetaminophen [Mass/Vol] <10 Normal 10.0-30.0 [facility] Comment on above: Performed By: #### 1 4581-3, 81114-6, 05613-2, 17513-4j6, 81077-2, 02800-5 #### [facility] [address] [place], [place] Alcohol (Ethanol) Levelon Ethanol [Mass/Vol] mg/dL Normal 0.00-0.00 [facility] Comment on above: Performed By: #### 1 4581-3, 06266-2, 36621-0, 96995-9t1, 17121-3, 21436-2 #### [facility] [address] [place], [place] CBC with Differentialon Basophils (Bld) [#/Vol] 0.10 thou/mcL Normal 0.00-0.20 [facility] Comment on above: Performed By: #### 5 7021-8 #### [facility] [address] [place], [place] Basophils/100 WBC (Bld) 0.7 % Normal 0.0-2.0 [facility] Comment on above: Performed By: #### 5 7021-8 #### [facility] [address] [place], [place] Eosinophils (Bld) [#/Vol] 0.40 thou/mcL Normal 0.00-0.70 [facility] Comment on above: Performed By: #### 5 7021-8 #### [facility] [address] [place], [place] Eosinophils/100 WBC (Bld) 3.7 % Normal 0.0-7.0 [facility] Comment on above: Performed By: #### 5 7021-8 #### [facility] [address] [place], [place] Erythrocyte distribution width (RBC) [Entitic vol] 12.6 % Normal 11.0-14.8 [facility] Comment on above: Performed By: #### 5 7021-8 #### [facility] [address] [place], [place] Hematocrit (Bld) [Volume fraction] 38.5 % Normal 35.0-45.0 [facility] Comment on above: Performed By: #### 5 7021-8 #### [address] Hemoglobin (Bld) [Mass/Vol] 13.3 g/dL Normal 12.0-16.0 [facility] Comment on above: Performed By: #### 5 7021-8 #### [facility] [address] [place] [address] Lymphocytes (Bld) [#/Vol] 3.10 thou/mcL Normal 1.00-4.80 [facility] Comment on above: Performed By: #### 5 7021-8 #### [facility] [address] [place], [place] Lymphocytes/100 WBC (Bld) 30.1 % Normal 22.0-44.0 [facility] Comment on above: Performed By: #### 5 7021-8 #### [facility] [address] [place], [place] MCH (RBC) [Entitic mass] 30.8 Picograms Normal 27.0-34.0 [facility] Comment on above: Performed By: #### 5 7021-8 #### [facility] [address] [place], [place] MCHC (RBC) [Mass/Vol] 34.7 g/dL Normal 32.0-36.0 [facility] Comment on above: Performed By: #### 5 7021-8 #### [facility] [address] [place], [place] MCV (RBC) [Entitic vol] 88.8 fL Normal 80.0-97.0 [facility] Comment on above: Performed By: #### 5 7021-8 #### [facility] [address] [place], [place] Monocytes (Bld) [#/Vol] 1.10 thou/mcL High 0.00-0.90 [facility] Comment on above: Performed By: #### 7021-8 #### [facility] [address] [place], [place] Monocytes/100 WBC (Bld) 10.4 % Normal 0.0-12.0 [facility] Comment on above: Performed By: #### 7021-8 #### [facility] Neutrophils (Bld) [#/Vol] 5.60 thou/mcL Normal 1.80-7.70 [facility] Comment on above: Performed By: #### 7021-8 #### [address] Neutrophils/100 WBC (Bld) 55.1 % Normal 40.0-70.0 [facility] Comment on above: Performed By: #### 5 7021-8 #### [facility] [address] [place] [address] Platelet mean volume (Bld) [Entitic vol] 7.5 fL Normal 6.2-12.1 [facility] Comment on above: Performed By: #### 5 7021-8 #### [facility] [address] [place], [place] Platelets (Bld) [#/Vol] 280 thou/mcL Normal 142-424 [facility] Comment on above: Performed By: #### 5 7021-8 #### [facility] [address] [place], [place] RBC (Bld) [#/Vol] 4.33 million/mcL Normal 3.80-5.10 M [facility] Comment on above: Performed By: #### 5 7021-8 #### [facility] [address] [place], [place] WBC (Bld) [#/Vol] 10.2 thou/mcL Normal 4.6-10.2 [facility] Comment on above: Performed By: #### 5 7021-8 #### [facility] [address] [place], [place] Comprehensive Metabolic Pane thi 03-22-2019 Albumin [Mass/Vol] 4.2 g/dL Normal 3.5-4.8 [facility] Comment on above: Performed By: #### 1 4581-3, 88379-2, 01782-7, 39782-3i1, 84399-8, 04850-9 #### [facility] [address] [place], [place] ALP [Catalytic activity/Vol] 96 Units/L High 32-91 [facility] Comment on above: Performed By: #### 1 4581-3, 85214-3, 06802-1, 22560-1j6, 24769-3, 45112-2 #### [facility] [address] [place], [place] ALT [Catalytic activity/Vol] 25 Units/L Normal 14-63 [facility] Comment on above: Performed By: #### 1 4581-3, 30413-5, 43150-8, 84079-1h5, 41422-3, 30607-5 #### [facility] [address] [place], [place] Anion gap [Moles/Vol] 9.0 mmol/L Normal 6.0-18.0 [facility] Comment on above: Performed By: #### 1 4581-3, 14303-6, 17472-1, 06858-3h7, 23366-7, 16892-1 #### [facility] [address] [place], [place] AST [Catalytic activity/Vol] 24 Units/L Normal 15-41 [facility] Comment on above: Performed By: #### 1 4581-3, 84417-7, 50754-9, 83900-6o8, 35146-2, 41480-9 #### [facility] [address] [place], [place] Bilirubin [Mass/Vol] 0.5 mg/dL Normal 0.3-1.2 [facility] Comment on above: Performed By: #### 1 4581-3, 39341-4, 52028-3, 43069-0k1, 45680-5, 45469-2 #### [facility] [address] [place], [place] Calcium [Mass/Vol] 8.9 mg/dL Normal 8.9-10.3 [facility] Comment on above: Performed By: #### 1 4581-3, 01515-5, 28390-8, 86881-5m6, 98922-2, 37091-9 #### [facility] [address] [place], [place] Chloride [Moles/Vol] 107 mmol/L Normal 98-107 [facility] Comment on above: Performed By: #### 1 4581-3, 23526-3, 19022-1, 48639-8y3, 06961-0, 04633-1 #### [facility] [address] [place], [place] CO2 [Moles/Vol] 23 mmol/L Normal 22-32 [facility] Comment on above: Performed By: #### 1 4581-3, 09837-4, 09117-6, 20441-5h5, 17840-9, 06674-1 #### [facility] [address] [place], [place] Creatinine [Mass/Vol] 0.68 mg/dL Normal 0.60-1.30 [facility] Comment on above: Performed By: #### 1 4581-3, 52851-2, 58994-6, 83379-9v8, 32296-4, 40847-2 #### [facility] [address] [place], [place] Glucose [Mass/Vol] 90 mg/dL Normal 70-99 [facility] Comment on above: Result Comment: U pdated ADA Reference Range A normal fasting glucose concentration is less than 100 mg/dL. An impaired fasting glucose concentration is 100-125 mg/dL. A provisional diagnosis of diabetes mellitus can be made when a fasting glucose concentration is greater than 125 mg/dL. Performed By: #### 1 4581-3, 17195-4, 63767-4, 92591-6f0, 40837-0, 12043-3 #### [facility] [address] [place], [place] Potassium [Moles/Vol] 3.4 mmol/L Low 3.6-5.1 [facility] Comment on above: Performed By: #### 1 4581-3, 69339-1, 82180-7, 49344-5s3, 88963-1, 03648-9 #### [facility] [address] [place], [place] Protein [Mass/Vol] 7.4 g/dL Normal 6.1-7.9 [facility] Comment on above: Performed By: #### 1 4581-3, 57778-4, 17453-4, 26910-2n5, 67601-2, 07921-6 #### [facility] [address] [place], [place] Sodium [Moles/Vol] 139 mmol/L Normal 136-145 [facility] Comment on above: Performed By: #### 1 4581-3, 13032-4, 09977-0, 60663-6w4, 06891-1, 66725-7 #### [facility] [address] [place], [place] Urea nitrogen (BldV) [Mass/Vol] 17 mg/dL Normal 8-20 [facility] Comment on above: Performed By: #### 1 4581-3, 18429-2, 17796-0, 99036-2e1, 05461-6, 97988-5 #### [facility] [address] [place], [place] Drug Abuse Screen 8 Urineon 03-22-2019 Barbiturates Screen Ql (U) Negative Normal [facility] Hospital Comment on above: Performed By: #### 1 2286-1 #### [facility] [address] [place], [place] Amphetamines Ql (U) Positive Abnormal [facility] Comment on above: Result Comment: Conf irmatory testing available upon request. Performed By: #### 1 2286-1 #### [facility] [address] [place], [place] Benzodiazepines cutoff Screen (U) [Mass/Vol] Negative Normal [facility] Comment on above: Performed By: #### 1 2286-1 #### [facility] [address] [place], [place] Cocaine Ql (U) Positive Abnormal [facility] Comment on above: Result Comment: Conf irmatory testing available upon request. Performed By: #### 1 2286-1 #### [facility] [address] [place], [place] Interpretation and review of laboratory results Negative Normal [facility] Comment on above: Performed By: #### 1 2286-1 #### [facility] [address] [place], [place] Methadone Screen Ql (U) Negative Normal NEGATIVE-N EGATIVE [facility] Comment on above: Performed By: #### 1 2286-1 #### [facility] [address] [place], [place] Opiates Screen Ql (U) Negative Normal [facility] Comment on above: Result Comment: INTE RPRETATION TABLE FOR SAP8 URINE DRUG SCREEN PRESUMPTIVE POSITIVE CUT-OFF VALUES (NG/DL) TEST POSITIVE CUT-OFF VALUES(NG/ML) Amphetamine 1000 Barbiturate 200 Benzodiazepines 200 Cannabinoids 50 Cocaine 300 Methadone 300 Opiates 300 Oxycodone 100 All drugs identified should be considered presumptive positives. Presumptive Positive Screens can be confirmed by a reference lab upon request. ALL DRUG SCREEN RESULTS ARE FOR MEDICAL PURPOSES ONLY. Performed By: #### 1 2286-1 #### [address] Tetrahydrocannabinol Screen Ql (U) Positive Abnormal [facility] Comment on above: Result Comment: Conf irmatory testing available upon request. Performed By: #### 1 2286-1 #### [facility] [address] [place] [address] ED Pat Eduon 03-22-2019 ED Pat Edu [facility] [address] [place] [id number] Emergency Department Discharge Instructions JENNIFER ENGLE , Please provide this information to your Primary Care/Specialist Name : JENNIFER ENGLE Current Date : 03/22/2019 19:32:22 : 1995 Primary Care Physician : Physician, No PCP Diagnosis: Follow-Up Instructions: JENNIFER ENGLE has been given these follow-up instructions: Laboratory Orders: Name: Status: CBC with Differential Completed Comprehensive Metabolic Panel Completed Alcohol (Ethanol) Level Completed Acetaminophen (Tylenol) Level Completed Salicylate Level Completed Drug Abuse Screen 8 Urine Completed Test Urine Completed GFRaa Completed GFRbb Completed Radiology Orders: None Ordered Diagnostic Tests: None Ordered Procedure(s) and Patient Education(s) : EMERGENCY SERVICES MEDICATION LIST Lista de Medicaciones de los Servicios de Emergencia Name JENNIFER ENGLE MRN (COL)-[id number] PLEASE READ THE FOLLOWING REGARDING YOUR MEDICATIONS Based on the information available during your visit we have given you the medication instructions below. Continue taking medications you took prior to your visit unless you have been told to change. Please share this information with your own doctor. Carry a list of your medications with you in case of an emergency. Update it when medications are stopped, doses are changed, or new medications (including pdzp-mho-brdbull products) are added. If you have any questions, check with your doctor. Por la informaci??n disponible jim grossman visita, las instrucciones de medicaci??n aparecen debajo. Favor de continuar tomando las medicaciones Ud. alyssa?? antes de grossman visita por lo menos que hay cambios. Favor de compartir esta informaci??n con grossman medico. Lleva swapna lista de medicaciones consigo por jeremias de emergenc??a. Actualiza la lista cuando Ud. wing de allan las medicaciones, si cambian las dosis, o si hay nuevas medicaciones a??adidas (incluyendo medicaciones vendidas sin prescripci??n). Favor de preguntar a grossman medico por cualquier salima. THESE ARE THE MEDICATIONS YOU SHOULD BE TAKING No Medications Documented MEDICATIONS GIVEN DURING MEDICAL VISIT potassium chloride 40 mEq last dose given on 03/22/2019 at 07:42 Route: By Mouth Do Not Chew Or Crush Take with meals and with a full glass of water or other beverage NON-MEDICATION PRESCRIPTION SCHEDULING PHONE NUMBER: MEDICATION CHANGE DETAILS (Not your Final Home Medication List) During the course of your visit, your home medication list was updated with the most current information. The details of those changes are shown below: NEW MEDICATIONS None UPDATED MEDICATIONS None UNCHANGED MEDICATIONS None STOP TAKING THESE MEDICATIONS None DO NOT TAKE UNTIL YOU TALK TO YOUR DOCTOR None [place] [id number] Emergency Department Discharge Instructions Name: JENNIFER ENGLE Current Date: 03/22/2019 19:32:22 : 1995 Primary Physician: Physician, No PCP We would like to thank you for choosing [facility] for your emergency medical needs. We examined and treated you today on an emergency basis only. This was not a substitute for, or an effort to provide, complete medical care. In most cases, you must let your doctor (or the doctor we referred you to) check you again. Tell your doctor about any new or lasting problems. We cannot recognize and treat all injuries or illnesses in one emergency department visit. After you leave, you should follow the directions attached. Instructions for obtaining X-rays: When following up with your doctor or a bone doctor, you may need to take copies of your x-rays that were done in the Emergency Department. If you didn't receive these upon your discharge from the emergency department, please call . When the final report becomes available and it is reviewed, the emergency department will attempt to contact you if there are any changes in your instructions. It is important that you leave accurate information with us on how to contact you. IF you cannot be contacted, YOU must contact the follow-up doctor that you were assigned to make sure that the final official x-ray report does not require a change in your treatment. Instructions for obtaining medical records: If you need a copy of your medical records for follow-up, please contact the Health Information Management Department at . Their office hours are 8 AM- 4:30 PM, Saturday through Saturday. Please note: Results are not immediately available. Please allow a minimum of 48 hours for documentation and results. If you were prescribed an antibiotic: Antibiotics are life-saving drugs and they need to be used properly. Your team might change your antibiotic because test results show that a different antibiotic would be better to treat your infection. Like all medications, antibiotics have side effects. Some can be serious. This includes the risk of getting an antibiotic-resistant infection later, which may be difficult to treat. Remember to take your antibiotics as prescribed. If you have any questions please talk to your healthcare team. Seatbelts: There is no doubt that seatbelts save lives. Every day, people without seatbelts have more serious injuries. Have everyone buckle up, using age appropriate seatbelts or car seats, to reduce their risk of injury. Smoking: If you do smoke, we encourage you to stop. Smoking affects all aspects of your health and the health of those around you. [facility] offers many resources to help with smoking cessation. Call the [place] Tobacco Quit Line at 1-378-UWZQ-NOW ( ). High blood pressure: Your screening blood pressure today was 132 mm Hg / 78 mm Hg. Hypertension (high blood pressure) is blood pressure over 120/80. People with hypertension should contact their primary care provider within 30 days to follow up. Check your patient portal for additional blood pressure information. Immunizations: Immunization is a way to protect against deadly infections. Discuss this with your child's trick rodeo rider, or Public Health Department. Your family practice doctor can determine if you need pneumonia or flu vaccine. The [facility] can be reached at . Substance Abuse Program: Concerns with addiction to alcohol, benzodiazepines (Ativan or Xanax) and Opiates (Heroin, Percocet, OxyContin, Methadone or Fentanyl)? [facility] [place] offers an inpatient Substance Abuse Program to help treat the symptoms associated with medical detoxification of addictive substances. The new program offers care for non- adults (18 and older) looking to break the chain to addictive chemicals. The Substance Abuse Program is a voluntary inpatient admission and it starts with a pre-screening phone call to a social work specialist. During the call, goals and objectives for recovery and how the patient will transition to outpatient care will be established. Please call [phone] to get help today. Domestic Violence: If you are a victim of domestic violence (physical, verbal, or emotional), you are not alone. Discuss this with your physician or a friend and call the [place] Domestic Violence Hotline or [place] Domestic Violence Hotline for assistance and support. You are the most important factor in your recovery. Follow the provided instructions carefully. Take your medications as prescribed. Most importantly, see a doctor again as discussed. If you have problems that we have not discussed, call or visit your doctor right away. If you do not have a primary care physician, we have provided one for you to follow up with. When you call for an appointment, please inform them that you were seen in the emergency department and the date of your visit. If you are unable to reach your doctor and are still experiencing problems, return to the emergency department. For assistance finding a primary care physician, call the Physician Referral Line at [phone] 160-ELNJ (0427). Suicide Hotline: Your mental and emotional well-being is important. If you are in a mental health crisis or are having thoughts of suicide, please call the nationwide suicide hotline, anytime day or night, at 6-917-104-MVUU (0074). Community Transplant Worker: You may be contacted by your local fire department for a follow up visit from a community revenue accountant. The community revenue accountant can help with a home safety check; follow up care, and general home care management. Pharmacy Information: Below is a list of 24 hour pharmacies that we are aware of. We suggest that you call the specific pharmacy for their hours before traveling to a location. Hours may vary on holidays. [facility] [address], [place] [phone] [place] [phone] [place] [address] [phone] [place] [address] [phone] [place], [place] [phone] [address] [place] [address] [phone] [place] [phone] Take all medications as directed. If you need prescription assistance, contact the following agencies: ?? Partnership for Prescription Assistance at or www.TeachersMeet.comx.org ?? [place] at or www.Bluetrain.iostrx.org ?? www.AgentPair.Acorio is a site with many valuable coupons Patient Education Materials JENNIFER ENGLE has been given the following patient education materials: <><><><><><><><><><><><>< ><><><><><><><><><><><><> <> Patient Visit Summary Signature JENNIFER ENGLE has been given the following list of patient education materials, prescriptions and follow-up instructions: ONIEL Siddiqui MARIAH E, have received the above patient education materials/instructions and have verbalized understanding: Date Time Patient Signature Date Time Provider Signature Normal [facility] GFRaaon 03-22-2019 GFR/1.73 sq M predicted among blacks MDRD (S/P/Bld) [Vol rate/Area] mL/min/{1.73_m2} Normal [facility] Comment on above: Result Comment: The MDRD equation has not been validated for those over 70 years, women, patients with serious co-morbid conditions, or with extremes of body size, muscle mass of nutritional status. Performed By: #### 1 4581-3, 77970-8, 48225-2, 97931-1t5, 88122-7, 70753-0 #### [facility] [address] [place], [place] GFRbbon 03-22-2019 GFR/1.73 sq M predicted among non-blacks MDRD (S/P/Bld) [Vol rate/Area] mL/min/{1.73_m2} Normal [facility] Comment on above: Performed By: #### 1 4581-3, 34003-6, 11163-5, 36868-6p5, 56304-4, 92400-4 #### [facility] Test Urineon 03-22 HCG ( test) Ql (U) Negative Normal [facility] Comment on above: Performed By: #### 2 106-3 #### [facility], [address] [place] [address] Salicylate Levelon 9 Salicylates [Mass/Vol] mg/dL Normal 2.8-30.0 [facility] Comment on above: Performed By: #### 1 4581-3, 73861-6, 20147-3, 40157-6m0, 64440-0, 89926-2 #### [address] Medication Managementon 10-0 Medication Management [id number] F [facility] ED Clinical Summaryon 2017 ED Clinical Summary [facility] [address] [place] [id number] ed Clinical SummaryPERSON INFORMATIONName: JENNIFER ENGLE Age: 22 Years Sex: FEMALEDOB: [birth year] MRN: Acct#:Visit Reason: Dental pain; Dental pain; DENTAL PAIN Arrival: 04/11/18 20:21:00 Discharge: 04/11/18 20:55:00LOS: 000 00:34 Check In: 04/11/18 20:21:00 Checkout:04/11/18 20:55:00Address:[address] [facility] [address]ZEG: SOLOMON WATTSPROVIDER INFORMATIONProvider Role Assigned UnassignedAlistair Max MD ED Provider 04/11/18 20:21:45GlobeMary Jane dupont ED Nurse 04/11/18 20:35:44VITALS INFORMATIONVital Sign Triage LatestTemperature TympanicTemperature Temporal ArteryPulse Rate 95 bpm 95 bpmO2 Sat 98 % 98 %Respiratory Rate 18 br/min 18 br/minBlood Pressure 134 mmHg/89 mmHg 134 mmHg/89 mmHgMEDICAL INFORMATIONMedications Given:Medication Dose Routeamoxicillin 1000 mg POtramadol 50 mg POAllergy Information:Latex Allergy; sulfa drugs; ibuprofenPHYSICIAN DOCUMENTATIONPatient: JENNIFER ENGLE : 22 years Sex: FEMALE : [birth year]Associated Diagnoses: Dental caries; Pain, dentalAuthor: Alisatir Max MDBasic InformationTime seen: Date & time 04/11/18 20:29:00.Dental caries, dental painHistory of Present Jlvbfqd02-wowv-qyw white female presents to the emergency room complaining of dental pain in her left lower jaw. Patient reports she has bad teeth and that she's had worsening pain in her left lower jaw over the past couple of days. She reports she did call the dentist today and cannot get in until May. She denies fever or chills, she had nausea and vomiting 4 days ago which has resolved. Patient denies any chance of .Review of SystemsConstitutional symptoms: No fever, no chills.ENMT symptoms: Dental pain left lower jaw.Gastrointestinal symptoms: Nausea, vomiting.Health StatusAllergies:Allergic Reactions (Selected)Severity Not DocumentedIbuprofen- No reactions were documented.Latex Allergy- No reactions were documented.Sulfa drugs- No reactions were documented..Physical Examination Vital SignsVital Signs04/11/18 20:25 EDT Temperature Oral 36.7 DegC Peripheral Pulse Rate 95 bpm Respiratory Rate 18 br/min Systolic Blood Pressure 134 mmHg Diastolic Blood Pressure 89 mmHg SpO2 98 % Oxygen Therapy Room air.General: Alert, no acute distress.Skin: Warm, dry, pink.Head: Normocephalic, atraumatic.Neck: Supple, trachea midline.Eye: Normal conjunctiva.Ears, nose, mouth and throat: Tympanic membranes clear, oral mucosa moist, no pharyngeal erythema or exudate, Tooth: Dentition in poor repair with numerous prior caries and fillings. Tooth #19 has a significant amount of caries and is tender to palpation..Cardiovascular : Regular rate and rhythm.Respiratory: Respirations are non-labored.Back: Normal range of motion.Musculoskeletal: Normal ROM, normal strength.Neurological: Alert and oriented to person, place, time, and situation, normal motor observed, normal speech observed.Psychiatric: Cooperative, appropriate mood & affect.Medical Decision MakingDifferential Diagnosis: Dental pain, dental carries.Rationale: Patient appears to have a pulp infection of tooth #19. She was treated with amoxicillin and given 1 tramadol 50 mg tablets to take home since she drove herself here. Patient be discharged home with prescription for tramadol and amoxicillin. Patient does report that she was a bulimic in the past, this may account for her poor dental state..Impression and PlanDiagnosisDental caries (YUL42-HM K02.9, Discharge, Medical)Pain, dental (CTL92-NM K08.89, Discharge, Medical)PlanCondition: Improved, Stable.Disposition: Discharged: to home.Prescriptions: Launch prescriptionsPharmacy:tra MADol 50 mg oral tablet (Prescribe): 50 mg = 1 tab(s), PO, q4hr, PRN: as needed for pain, 12 tab(s), 0 Refill(s)amoxicillin 500 mg oral capsule (Prescribe): 1,000 mg = 2 cap(s), PO, BID, 40 cap(s), 0 Refill(s).Patient was given the following educational materials: Dental Pain, Jlkm-yw-Cxeg, Dental Caries, Adult, Anja-wq-Garo, Dental Caries, Adult, Qqrk-mc-Neqs, Dental Pain, Bicg-ur-Dgyq.Follow up with: SOLOMON WATTS Within 3 to 5 days.Counseled: Patient, Regarding diagnosis, Regarding treatment plan, Regarding prescription, Patient indicated understanding of instructions.DISCHARGE INFORMATION:Discharge Disposition: HomeDischarge Location: HomePATIENT EDUCATION INFORMATIONInstructions: Dental Caries, Adult, Fdej-mw-Rdoc; Dental Pain, Dmhi-vr-BqbwPinayw-Up:Chelsey h: Address: When:SOLOMON WATTS [address] [place] [address] Business (1) Within 3 to 5 daysDIAGNOSIS:Dental caries; Dental pain; Pain, dentalPatient Understands: Yes - Patient/family/caregiver verbalizes understanding of instructions givenComment: [facility] ED Note - Physicianon 2017 ED Note - Physician Patient: DOMINIC ENGLE : 22 years Sex: FEMALE : [birth year]Associated Diagnoses: Dental caries; Pain, dentalAuthor: Alistair Max MDBasipramod InformationTime seen: Date & time 04/11/18 20:29:00.Dental caries, dental painHistory of Present Yepaclc81-bqhz-fpq white female presents to the emergency room complaining of dental pain in her left lower jaw. Patient reports she has bad teeth and that she's had worsening pain in her left lower jaw over the past couple of days. She reports she did call the dentist today and cannot get in until May. She denies fever or chills, she had nausea and vomiting 4 days ago which has resolved. Patient denies any chance of .Review of SystemsConstitutional symptoms: No fever, no chills.ENMT symptoms: Dental pain left lower jaw.Gastrointestinal symptoms: Nausea, vomiting.Health StatusAllergies:Allergic Reactions (Selected)Severity Not DocumentedIbuprofen- No reactions were documented.Latex Allergy- No reactions were documented.Sulfa drugs- No reactions were documented..Physical Examination Vital SignsVital Signs04/11/18 20:25 EDT Temperature Oral 36.7 DegC Peripheral Pulse Rate 95 bpm Respiratory Rate 18 br/min Systolic Blood Pressure 134 mmHg Diastolic Blood Pressure 89 mmHg SpO2 98 % Oxygen Therapy Room air.General: Alert, no acute distress.Skin: Warm, dry, pink.Head: Normocephalic, atraumatic.Neck: Supple, trachea midline.Eye: Normal conjunctiva.Ears, nose, mouth and throat: Tympanic membranes clear, oral mucosa moist, no pharyngeal erythema or exudate, Tooth: Dentition in poor repair with numerous prior caries and fillings. Tooth #19 has a significant amount of caries and is tender to palpation..Cardiovascular : Regular rate and rhythm.Respiratory: Respirations are non-labored.Back: Normal range of motion.Musculoskeletal: Normal ROM, normal strength.Neurological: Alert and oriented to person, place, time, and situation, normal motor observed, normal speech observed.Psychiatric: Cooperative, appropriate mood & affect.Medical Decision MakingDifferential Diagnosis: Dental pain, dental carries.Rationale: Patient appears to have a pulp infection of tooth #19. She was treated with amoxicillin and given 1 tramadol 50 mg tablets to take home since she drove herself here. Patient be discharged home with prescription for tramadol and amoxicillin. Patient does report that she was a bulimic in the past, this may account for her poor dental state..Impression and PlanDiagnosisDental caries (UXW30-XL K02.9, Discharge, Medical)Pain, dental (LFD41-LW K08.89, Discharge, Medical)PlanCondition: Improved, Stable.Disposition: Discharged: to home.Prescriptions: Launch prescriptionsPharmacy:tra MADol 50 mg oral tablet (Prescribe): 50 mg = 1 tab(s), PO, q4hr, PRN: as needed for pain, 12 tab(s), 0 Refill(s)amoxicillin 500 mg oral capsule (Prescribe): 1,000 mg = 2 cap(s), PO, BID, 40 cap(s), 0 Refill(s).Patient was given the following educational materials: Dental Pain, Fcim-ok-Mjlr, Dental Caries, Adult, Hrgy-iu-Fmju, Dental Caries, Adult, Osst-op-Jbxr, Dental Pain, Walo-fq-Nbrc.Follow up with: SOLOMON WATTS Within 3 to 5 days.Counseled: Patient, Regarding diagnosis, Regarding treatment plan, Regarding prescription, Patient indicated understanding of instructions.[Matt ortiz Signed on: 04/11/2018 20:42 EDT] Alistair Salomon MD[Verified on: 04/11/2018 20:42 EDT] Alistair Salomon MD [facility] ED Patient Education Noteon 04-11-2018 ED Patient Education Note Education MaterialsDentistryDental CariesDental caries are spots of decay (cavities) in teeth. They are in the outer layer of your tooth (enamel). Treat them as soon as you can. If they are not treated, they can spread decay and lead to painful infection. Follow these instructions at home:General instructions? Take good care of your mouth and teeth. This keeps them healthy.? [place] your teeth 2 times a day. Use toothpaste with fluoride in it.? Floss your teeth once a day.? If your dentist prescribed an antibiotic medicine to treat an infection, take it as told. Do not stop taking the antibiotic even if your condition gets better.? Keep all follow-up visits as told by your dentist. This is important. This includes all cleanings.Preventing dental caries? [place] your teeth every morning and night. Use fluoride toothpaste.? Get regular dental cleanings.? If you are at risk of dental caries.? Wash your mouth with prescription mouthwash (chlorhexidine).? Put topical fluoride on your teeth.? Drink water with fluoride in it.? Drink water instead of sugary drinks.? Eat healthy meals and snacks. Contact a doctor if:? You have symptoms of tooth decay.Summary? Dental caries are spots of decay (cavities) in teeth. They are in the outer layer of your tooth.? Take an antibiotic to treat an infection, if told by your dentist. Do not stop taking the antibiotic even if your condition gets better.? Regular dental cleanings and brushing can help prevent dental caries.This information is not intended to replace advice given to you by your health care provider. Make sure you discuss any questions you have with your health care provider.Document Released: 04/09/2009 Document Revised: 03/17/2017 Document Reviewed: 03/17/2017[employer] Interactive Patient Education ? 2017 [employer].Dental PainDental pain may be caused by many things, including: ? Tooth decay (cavities or caries). Cavities cause the nerve of your tooth to be open to air and hot or cold temperatures. This can cause pain or discomfort.? Abscess or infection. A dental abscess is an area that is full of infected pus from a bacterial infection in the inner part of the tooth (pulp). It usually happens at the end of the tooth?s root.? Injury.? An unknown reason (idiopathic).Your pain may be mild or severe. It may only happen when:? You are chewing.? You are exposed to hot or cold temperature.? You are eating or drinking sugary foods or beverages, such as:? Soda.? Candy.Your pain may also be there all of the time.Follow these instructions at home:Watch your dental pain for any changes. Do these things to lessen your discomfort:? Take medicines only as told by your dentist.? If your dentist tells you to take an antibiotic medicine, finish all of it even if you start to feel better.? Keep all follow-up visits as told by your dentist. This is important.? Do not apply heat to the outside of your face.? Rinse your mouth or gargle with salt water if told by your dentist. This helps with pain and swelling.? You can make salt water by adding ? tsp of salt to 1 cup of warm water.? Apply ice to the painful area of your face:? Put ice in a plastic bag.? Place a towel between your skin and the bag.? Leave the ice on for 20 minutes, 2?3 times per day.? Avoid foods or drinks that cause you pain, such as:? Very hot or very cold foods or drinks.? Sweet or sugary foods or drinks.Contact a doctor if:? Your pain is not helped with medicines.? Your symptoms are worse.? You have new symptoms.Get help right away if:? You cannot open your mouth.? You are having trouble breathing or swallowing.? You have a fever.? Your face,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
[2023-07-31 23:02] VITALS: BP 128/96; PULSE 107; RESP 16; TEMP 36.9; O2SAT 97; BMI 37.1
--- NOTE | 2023-07-31 23:26 | CT_ITS ---
The [address] [address] Patient Name: VERNELL CARMEN MRN: [id number] date: 1995 Sex: F Assigned Patient Location: ER Current Patient Location: ER Accession/Order Number: [id number] Exam Date: 07/31/2023 23:50 Report Date: 08/01/2023 00:20 At the request of: KARAN PALACIOS Procedure: CT angio chest EXAM: CT angio chest HISTORY: left sided pleuritic chest pain COMPARISON: None. TECHNIQUE: Axial CT images through the chest were obtained after the intravenous administration of 100 mL Omnipaque 350 contrast. Coronal and sagittal reformats were obtained. Dose reduction techniques were achieved by using automated exposure control and/or adjustment of mA and/or kV according to patient size and/or use of iterative reconstruction technique. FINDINGS: The study is technically adequate with a good contrast bolus to the pulmonary arteries. There are no filling defects or vascular cutoffs to indicate a pulmonary embolus. The pulmonary arteries are normal in size. The lungs are clear. The central airways are patent. No pleural effusion or pneumothorax is seen. The thoracic aorta is normal in course and caliber without evidence of an aneurysm. The cardiac chambers appear normal in size. There is no pericardial effusion. There is no mediastinal, hilar, or axillary lymphadenopathy by CT size criteria. Images through the upper abdomen reveal no significant abnormalities. No suspicious or aggressive bone lesions are seen. No acute fracture is seen. CT/CT angio chest IMPRESSION: 1. No evidence of pulmonary embolism or an acute cardiopulmonary abnormality. Electronically authenticated by: Lorenzo LAN Date: 08/01/2023 00:20
--- NOTE | 2023-07-31 23:35 | ED_ITS ---
HPI - URI/Sore Throat General Chief Complaint: Upper Respiratory Infection Stated Complaint: upper respiratory Infection Time Seen by Provider: 07/31/23 23:18 Source: patient Limitations: no limitations History of Present Illness HPI Narrative: complains of left pleuritic chest pain. States pain present since she was diagnosed with COVID late june. Not short of breath. Pain lower aspect of her left anterior chest. No nausea, fever Related Data Allergies Allergy/AdvReac Type Severity Reaction Status Date / Time Penicillins Allergy Mild Hives Verified 07/31/23 23:05 latex Allergy Unknown Verified 07/31/23 23:05 ibuprofen AdvReac Mild Verified 07/31/23 23:05 Sulfa (Sulfonamide AdvReac Mild Hives Verified 07/31/23 23:05 Antibiotics) Review of Systems ROS Status of ROS 10 or more systems reviewed and unremark able except as noted in history and below [facility] Social History Smoking status: Never smoker Exam Constitutional Vital Signs, click to edit/add: Last Vital Signs Temp 98.5 F 07/31/23 23:02 Pulse 107 H 07/31/23 23:02 Resp 16 07/31/23 23:02 BP 128/96 H 07/31/23 23:02 Pulse Ox 97 07/31/23 23:02 O2 Del Method Room Air 07/31/23 23:02 Common normals: no apparent distress, average body habitus, oriented x3, no limitations, healthy appearing, alert and well nourished [facility] Common normals: normocephalic and head/scalp atraumatic Eye Common normals: PERRL, EOMs intact bilaterally and conjunctivae normal Chest Common normals: inspection of chest normal and palpation of chest normal Respiratory Common normals: normal respiratory effort, no retractions, no use of accessory muscles and clear to auscultation bilaterally Cardio Common normals: regular rate, regular rhythm, S1 normal heart sound and S2 normal heart sound GI Common normals: Normal to inspection, nondistended, normoactive bowel sounds present, soft to palpation and non-tender Extremity Common normals: normal to inspection and full ROM Neuro Common normals: oriented x3, CN's II-XII intact bilaterally, moves all extremities and no focal motor deficits Psych Appearance: grossly normal Course Vital Signs Vital signs: Vital Signs Temperature 98.5 F 07/31/23 23:02 Pulse Rate 107 H 07/31/23 23:02 Respiratory Rate 16 07/31/23 23:02 Blood Pressure 128/96 H 07/31/23 23:02 Pulse Oximetry 97 07/31/23 23:02 Oxygen Delivery Method Room Air 07/31/23 23:02 Temperature 98.5 F 07/31/23 23:02 Pulse Rate 107 H 07/31/23 23:02 Respiratory Rate 16 07/31/23 23:02 Blood Pressure 128/96 H 07/31/23 23:02 Pulse Oximetry 97 07/31/23 23:02 Oxygen Delivery Method Room Air 07/31/23 23:02 MDM - URI/Sore Throat MDM Narrative Medical decision making narrative: patient presents complaining of left sided pleuritic chest pain since she had COVID 19 in June. Pain is pleuritic. Not short of breath. CTA chest neg. Patient advised of working diagnosis of pleurisy. State she has had it before. Discharged home in stable condition to follow up with her doctor Discharge Plan Discharge Chief Complaint: Upper Respiratory Infection Clinical Impression: Chest pain, pleuritic Patient Disposition: Home, Self-Care Instructions: Pleurisy (ED) Stand Alone Forms: Portal Instructions Referrals: Shaikh Langley MD [Primary Care Provider] - 1 week
--- NOTE | 2023-07-31 23:45 | PC.NURSE ---
Patient had Covid in June, since that time, she has had a productive cough intermittently, and had left sided chest pains, states it feels like a pinching pain in her lung when she takes a deep breath.
== END 2023-08-01 00:58 | disposition home or self-care (01) ==
PROVIDERS: Emergency Provider Internal Medicine; PCP Internal Medicine
DX: R07.81 Pleurodynia (principal); Z86.16 Personal history of COVID-19
CPT/HCPCS: 71275; 80048; 99284; Q9967

== ENCOUNTER 2023-09-14 20:05 | Emergency (ER) | payer MEDICAID, SELFPAY ==
[2023-09-14 20:10] VITALS: BP 138/102; PULSE 67; RESP 22; TEMP 36.5; O2SAT 98; BMI 37.1
--- OUTSIDE RECORDS SUMMARY | 2023-09-14 20:11 | XMS_ITS | CCD ---
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 Name Role Phone Stabertrand Alistair Unavailable Unavailable Stalter, Alistair Unavailable Unavailable FURSOLOMON GALAN G Unavailable Unavailable Stalter, Alistair Unavailable Unavailable Stalter, Alistair Unavailable Unavailable FURLOSUZAN, SOLOMON Unavailable Unavailable Lucinda Salgado Unavailable Deb Simon Unavailable FAWWAD, COLÓN H Primary Care Unavailable FAWWAD, COLÓN H Attending Unavailable FAWWAD, COLÓN H Admitting Unavailable FAWWAD, COLÓN H Primary Care Unavailable ALLIE, DR VALDIVIA Attending Unavailable ALLIE, DR VALDIVIA Admitting Unavailable ALLIE, DR VALDIVIA Consulting Unavailable JENNIFER GRANT Consulting Unavailable DANNI QUINONES Consulting Unavailable TIO PALACIOSYL Attending Unavailable SUZANNE, KARAN Admitting Unavailable SUZANNE, KARAN Consulting Unavailable FAWWAD, COLÓN H Primary Care Unavailable RIVER RODGERS Consulting Unavailable DR PATRICK BAHENA Consulting Unavailable DR PATRICK BAHENA Attending Unavailable DR PATRICK BAHENA Admitting Unavailable FAWWAD, COLÓN H Primary Care Unavailable DR NICOL RAMACHANDRAN Consulting Unavailable MODESTA NAVA Consulting Unavailable KARAN PALACIOS Attending Unavailable SUZANNE, KARAN Admitting Unavailable SUZANNE, KARAN Consulting Unavailable FAWWAD, COLÓN H Primary Care Unavailable RIVER RODGERS Consulting Unavailable DR PATRICK BAHENA Consulting Unavailable DR PATRICK BAHENA Attending Unavailable DR PATRICK BAHENA Admitting Unavailable FAWWAD, COLÓN H Primary Care Unavailable BAHENA, DR PATRICK Goodson Consulting Unavailable BAHENA, DR PATRICK Goodson Attending Unavailable BAHENA, DR PATRICK Goodson Admitting Unavailable FAWWAD, COLÓN H Primary Care Unavailable ISAIAH FAROOQ Consulting Unavailable FAWWAD, COLÓN H Primary Care Unavailable JOCELYN, MARIA ISABEL Charles Attending Unavailable JOCELYN, MARIA ISABEL Charles Admitting Unavailable MARKER, DR MEDRANO Consulting Unavailable MARIA ISABEL BANKS Consulting Unavailable HILDA RAHMAN Consulting Unavailable FAWWAD, COLÓN H Primary Care Unavailable BAHENA, DR PATRICK Goodson Attending Unavailable BAHENA, DR PATRICK Goodson Admitting Unavailable BAHENA, DR PATRICK Goodson Consulting Unavailable LAN, ARIADNA [...] Admitting Unavailable MARKER, DR MEDRANO Consulting Unavailable SRAVANI GERI Consulting Unavailable Autumn Marley Unavailable Chase Saldana Unavailable MIREILLE Saldana Attending Provider FAWWAD, COLÓN Primary Care Unavailable Key Patel Unavailable Gerald Wagner Attending Unavailab Gerald Lazo Admitting Unavailab adrienne ACOSTA STAFF Primary Care Unavailable Chase Saldana Attending Unavailable Chase Saldana Admitting Unavailable FAWWAD, COLÓN Primary Care Unavailable SHAIKH PATTERSON Primary Care Unavailable Allergies Allergy Classification Reported Allergen(s) Allergy Type Date of Onset Reaction(s) Facility (5 sources) ibuprofen; Translations: [ibuprofen] Drug Allergy 11-25-19 Nausea [facility] Repository (1 source) Latex; Translations: [Latex Allergy] Propensity to adverse reactions to drug (disorder) [facility] Repository (1 source) Sulfonamides (Antibiotic); Translations: [sulfa drugs] Propensity to adverse reactions to drug (disorder) [facility] Repository (6 sources) Lactase Drug Allergy vomiting [facility] Other (8 sources) Latex; Translations: [LATEX] Drug allergy 08-24-19 anaphylaxis [facility] (6 sources) Sulfacetamide Drug Allergy [facility] Other (2 sources) Lactose Drug Allergy [facility] (2 sources) Latex Drug allergy (disorder) 12-30-19 13 [facility] (2 sources) Penicillin Drug Allergy [facility] (1 source) Propylthiouracil Drug Allergy The [facility] Repository (2 sources) Sulfonamides (Antibiotic) Drug allergy (disorder) 12-30-19 13 [facility] (3 sources) Sulfonamides (Antibiotic); Translations: [Sulfa (Sulfonamide Antibiotics)] Allergy to substance 11-25-19 [facility] (1 source) Lactase Drug Allergy 05-07-20 [facility] Repository (1 source) Latex Drug allergy (disorder) 05-07-20 [facility] (1 source) Sulfacetamide Drug Allergy 05-07-20 [facility] Repository (1 source) Adhesive agent; Translations: [ADHESIVE] Propensity to adverse reactions to drug (disorder) 01-09-20 [facility] Repository (1 source) Clindamycin; Translations: [CLINDAMYCIN] Drug Allergy 06-07-20 [facility] Repository (1 source) Desvenlafaxine; Translations: [DESVENLAFAXINE SUCCINATE] Drug Allergy 11-29-19 [facility] Repository (1 source) Escitalopram; Translations: [ESCITALOPRAM OXALATE] Drug Allergy 03-09-20 19 [facility] Repository (1 source) lamoTRIgine; Translations: [LAMOTRIGINE] Drug Allergy 01-13-20 18 [facility] Repository (1 source) natural latex rubber; Translations: [LATEX, NATURAL RUBBER] Propensity to adverse reactions to drug (disorder) 04-24-20 [facility] Repository (1 source) Penicillins; Translations: [PENICILLINS] Propensity to adverse reactions to drug (disorder) 12-05-19 19 [facility] Repository Medications Current Medications Medication Drug Class(es) Dates Sig (Normalized) Sig (Original) [id number] 200 actuat albuterol 0.09 mg/actuat metered dose [...] 1.5 mg/ml oral solution (2 sources) Uncompetitive J-doztyg-C-aspartate Receptor Antagonist, Sigma-1 Agonist [place] DM 7.5-7.5 MG/5ML 10 ml Orally every 6-8 hours as needed for 8 days Active erythromycin 20 mg/ml topical solution (1 source) Macrolide, Macrolide Antimicrobial Start: 021 Erythromycin 2 % 2 drops left eye [...] day(s) Mar, Not-Taking take 1 capsule by mo ut every twelve hours Clindamycin HCl 300 MG [...] Classification Problem Date Documented Da te Episodic/Chronic Anxiety disorders (1 source) Panic attack Onset: 08-27-2023 Chronic Asthma (1 source) Unspecified asthma, uncomplicated; Translations: [UNSPECIFIED ASTHMA UNCOMPLICATED] Onset: 04-06-2022 Chronic Chronic obstructive pulmonary disease and bronchiectasis [...] sources) Hypokalemia; Translations: [HYPOKALEMIA] Onset: 10-24-2021 Episodic Headache; including migraine (1 source) Headache Onset: 08-27-2023 Episodic Headache; including migraine (1 source) Headache; including migraine; Translations: [Headache, unspecified] Onset: 08-27-2023 Mood disorders (1 source) Bipolar disorder, unspecified; Translations: [BIPOLAR DISORDER UNSPECIFIED] Onset: 07-23-2021 Chronic Other aftercare (1 source) 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; Translations: [OTH 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 PHARMACIST CURRENT DRUG THERAPY] Onset: 03-23-2022 Episodic Other [...] Translations: [PERSONAL HISTORY OF COVID-19] Onset: 02-09-2022 Unclassified (1 source) Cold Like Symptoms Onset: 07-09-2023 Unclassified (1 source) loss of smell, cough, body aches Onset: 07-09-2023 Urinary tract infections (1 source) Acute cystitis with hematuria Episodic Viral infection (1 source) COVID-19; Translations: [COVID-19] Onset: 07-09-2023 Past or Other Problems Problem Classification Problem [...] Test Name Value Interpretation Reference Range Facility SARS/FLU A+B/RSV by NAAT/Mol [facility] 07-09-2023 SARS/FLU A+B/RSV by NAAT/Molecular FLU A PCR Negative (qualifier value) FLU B PCR Negative (qualifier value) RSV by PCR Negative (qualifier value) SARS CoV 2 Detected (qualifier value) NOTE The Xpert Xpress SARS-CoV-2/Flu/RSV Plus test is a rapid, multiplexed real-time RT-PCR test intended for the simultaneous qualitative detection and differentiation of SARS-CoV-2, influenza A, influenza B and respiratory syncytial virus (RSV) viral RNA from individuals suspected of respiratory viral infection consistent with COVID-19 by their healthcare provider. This test has not been validated in asymptomatic patients. The Xpert Xpress SARS-CoV-2 test is intended for use by qualified and trained operators who are performing tests using either [employer] or [employer] systems and is limited to laboratories that meet the CLIA requirements to perform high and moderate complexity tests. The Xpert Xpress SARS-CoV-2/Flu/RSV Plus is only for use under the Food and Drug Administration's Emergency Use Authorization. Results are for the simultaneous detection and differentiation of SARS-CoV-2, influenza A, influenza B and RSV nucleic acids in clinical specimens. SARS-CoV-2, influenza A, influenza B and RSV RNA identified by this test are generally detectable in upper respiratory samples during the acute phase of infection. Positive results are indicative of the presence of the identified virus, but do not rule out bacterial infection or co-infection with other pathogens not detected by this test. Clinical correlation with patient history and other diagnostic information is necessary to determine patient infection status. The agent detected may not be the definite cause of disease. Negative results do not preclude SARS-CoV-2, influenza A, influenza B and RSV infection and should not be used as the sole basis for treatment or other patient management decisions. Negative results must be combined with clinical observations, patient history and epidemiological information. An Invalid result may occur with specimen-associated inhibition unable to be resolved with specimen repeat. Fact Sheet for Healthcare Providers: https://www.fda.gov/media /902439/download Fact Sheet for Patients: https://www.fda.gov/media /797061/download Normal [facility] Comment on above: Performed By: #### C OVFLR #### [facility] ([id number]) [address] [place] [address], [place] [address] Provider Letteron 02-25-2023 Provider Letter (Inserted Image. Swapna ble to display) February 25, 2023 JENNIFER CARMEN [address] [place] [id number] : 1995 Dear Jennifer , We have been trying to reach you with no success. It is important that you return our call regarding your referral to our office by Jennifer upon receiving this letter. Also, at the time of your call, please provide us with your current information. Thank you for your prompt attention to this matter. Sincerely, [facility] [phone] Normal [facility] Physician Referralon 023 Physician Referral [phone] [id number] Normal [facility] Urinalysis - AUTOMATEDon Appearance (U) cloudy [employer] Other Bilirubin Ql (U) Negative [facility] Other Color (U) yellow [employer] Other Glucose Ql (U) Negative [employer] Other Hemoglobin Ql (U) Trace-intact [employer] Other Ketones Ql (U) Negative [employer] Other Leukocyte esterase Test strip Ql (U) Trace [employer] Other Nitrite Ql (U) Negative [employer] Other pH (U) 6.0 [pH] [employer] Other Protein Ql (U) Negative [employer] Other Specific gravity (U) [Rel density] <=1.005 [employer] Other Urobilinogen (U) [Mass/Vol] 0.2 mg/dL [employer] Other Urinalysis - AUTOMATED No rtGFRANQ Other Urine Cultureon 11-08-2022 Bacteria identified Cx Nom (U) 20,000 colonies/ml mixed bacterial skin contaminants 2 Days PERFORMED BY: [facility] [place] [address] PATHOLOGIST PIPELINE MAINTENANCE SUPERVISOR MONTY CANO M.D. [facility] Comment on above: Performed By: #### C UU #### [facility] [address] [place] [address] [facility] Quick Strepon 04-26-2022 S. pyogenes Org specific cx Ql (Throat) Negative [facility] Other Quick Strep [facility] Other SARS-CoV-2 (COVID-19) RNA NA A+probe Ql (Resp)on 04-23-2022 SARS-CoV-2 (COVID-19) RNA EMMANUELLE+probe Ql (Unsp spec) Negative [facility] Other Covid-19 PCR (CVDTB)on 03-16 SARS-CoV-2 (COVID-19) RNA EMMANUELLE+probe Ql (Unsp spec) Not detected Normal NOT DETECTED [facility] Comment on above: Result Comment: This test is not yet approved or cleared by the [place] FDA. When there are no FDA-approved or cleared tests available, and other criteria are met, FDA can make tests available under an emergency access mechanism called an Emergency Use Authorization (EUA). The EUA for this test is supported by the [place] of Health and Human Service's (HHS's) declaration [...] SARS-CoV-2. Performed By: #### C BC #### [facility] [address] [address] [address] Katrin Ceja SARS-CoV-2 (COVID-19) RNA NA A+probe Ql (Resp)on 03-27-2022 SARS-CoV-2 (COVID-19) RNA EMMANUELLE+probe Ql (Unsp spec) Negative [employer] Other CBC AUTO DIFFon 03-22-2022 BASO # 0.0 103/ul Normal 0.0-0.1 [facility] Comment on above: Performed By: #### L IPID, CMP #### [facility] [address] [place] [address] Dr. Katrin Ceja Basophils/100 WBC (Bld) 0.3 % Normal 0.2-2.0 [facility] Comment on above: Performed By: #### L IPID, CMP #### [facility] [address] [place] [address] Dr. Katrin Ceja EO # 0.2 103/ul Normal 0.0-0.7 [facility] Comment on above: Performed By: #### L IPID, CMP #### [facility] [address] [place] [address] Dr. Katrin Ceja Eosinophils/100 WBC (Bld) 2.2 % Normal 0.9-7.0 [facility] Comment on above: Performed By: #### L IPID, CMP #### [facility] [address] [place] [address] Dr. Katrin Ceja Erythrocyte distribution width (RBC) [Ratio] 11.9 % Normal 11.0-15.0 [facility] Comment on above: Performed By: #### L IPID, CMP #### [facility] [address] [place] [address] Dr. Katrin Ceja Hematocrit (Bld) [Volume fraction] 36.4 % Normal 36.0-48.0 [facility] Comment on above: Performed By: #### L IPID, CMP #### [facility] [address] [place] [address] Dr. Katrin Ceja Hemoglobin (Bld) [Mass/Vol] 12.6 g/dL Normal 12.0-16.0 [facility] Comment on above: Performed By: #### L IPID, CMP #### [facility] [address] [place] [address] Dr. Katrin Ceja IG # 0.03 10e3/ul Normal 0.00-0.03 [facility] Comment on above: Performed By: #### L IPID, CMP #### [facility] [address] [place] [address] Dr. Katrin Ceja IG % 0.3 % Normal 0.0-0.5 [facility] Comment on above: Performed By: #### L IPID, CMP #### [facility] [address] [address] [address] Katrin Ceja LYMPH # 3.5 103/ul Normal 1.2-3.8 [facility] Comment on above: Performed By: #### L IPID, CMP #### [facility] [address] [place] [address] Dr. Katrin Ceja Lymphocytes/100 WBC (Bld) 33.1 % Normal 20.5-60.0 [facility] Comment on above: Performed By: #### L IPID, CMP #### [facility] [address] [place] [address] Dr. Katrin Ceja MANUAL DIFF REQ NO Normal [facility] Comment on above: Performed By: #### L IPID, CMP #### [facility] [address] [place] [address] Dr. Katrin Ceja MCH (RBC) [Entitic mass] 29.9 pg Normal 26.7-34.0 [facility] Comment on above: Performed By: #### L IPID, CMP #### [facility] [address] [place] [address] Dr. Katrin Ceja MCHC (RBC) [Mass/Vol] 34.6 g/dL Normal 29.9-35.2 [facility] Comment on above: Performed By: #### L IPID, CMP #### [facility] [address] [place] [address] Dr. Katrin Ceja MCV (RBC) [Entitic vol] 86.5 fL Normal 81.0-99.0 [facility] Comment on above: Performed By: #### L IPID, CMP #### [facility] [address] [address] [address] Katrin Ceja MONO # 0.7 103/ul Normal 0.3-0.8 [facility] Comment on above: Performed By: #### L IPID, CMP #### [facility] [address] [place] [address] Dr. Katrin Ceja Monocytes/100 WBC (Bld) 6.5 % Normal 1.7-12.0 [facility] Comment on above: Performed By: #### L IPID, CMP #### [facility] [address] [place] [address] Dr. Katrin Ceja NEUT # 6.0 103/ul Normal 1.4-6.5 [facility] Comment on above: Performed By: #### L IPID, CMP #### [facility] [address] [place] [address] Dr. Katrin Ceja Neutrophils/100 WBC (Bld) 57.6 % Normal 43.0-75.0 [facility] Comment on above: Performed By: #### L IPID, CMP #### [facility] [address] [place] [address] Dr. Katrin Ceja Platelet mean volume (Bld) [Entitic vol] 8.7 fL Critically low 9.5-13.5 [facility] Comment on above: Performed By: #### L IPID, CMP #### [facility] [address] [place] [address] Dr. Katrin Ceja PLT 282 103/ul Normal 150-450 [facility] Comment on above: Performed By: #### L IPID, CMP #### [facility] [address] [place] [address] Dr. Katrin Ceja RBC 4.21 106/ul Normal 4.20-5.40 [facility] Comment on above: Performed By: #### L IPID, CMP #### [facility] [address] [place] [address] Dr. Katrin Ceja WBC 10.5 103/ul Normal 4.0-11.0 [facility] Comment on above: Performed By: #### L IPID, CMP #### [facility] [address] [address] [address] Katrin Ceja ER URINE PROFILEon 2 Bilirubin Ql (U) Negative Normal NEGATIVE [facility] Comment on above: Performed By: #### L IPID, CMP #### [facility] [address] [place] [address] Dr. Katrin Ceja Clarity (U) CLEAR Normal CLEAR [facility] Comment on above: Performed By: #### L IPID, CMP #### [facility] [address] [place] [address] Dr. Katrin Ceja Color (U) LT. YELLOW Normal YELLOW [facility] Comment on above: Performed By: #### L IPID, CMP #### [facility] [address] [place] [address] Dr. Katrin ANN A micrscopic examina tion will be performed if indicated. Normal [facility] Comment on above: Performed By: #### L IPID, CMP #### [facility] [address] [place] [address] Dr. Katrin Ceja Glucose Ql (U) Negative Normal NEGATIVE [facility] Comment on above: Performed By: #### L IPID, CMP #### [facility] [address] [place] [address] Dr. Katrin Ceja Hemoglobin Ql (U) Negative Normal NEGATIVE [facility] Comment on above: Performed By: #### L IPID, CMP #### [facility] [address] [place] [address] Dr. Katrin Ceja Ketones Ql (U) Negative Normal NEGATIVE [facility] Comment on above: Performed By: #### L IPID, CMP #### [facility] [address] [place] [address] Dr. Katrin Ceja LEUKOCYTES Negative Normal NEGATIVE [facility] Comment on above: Performed By: #### L IPID, CMP #### [facility] [address] [place] [address] Dr. Katrin Ceja Nitrite Ql (U) Negative Normal NEGATIVE [facility] Comment on above: Performed By: #### L IPID, CMP #### [facility] [address] [address] [address] Katrin Ceja pH (U) 6.0 [pH] Normal 5-9 [facility] Comment on above: Performed By: #### L IPID, CMP #### [facility] [address] [place] [address] Dr. Katrin Ceja SPEC GRAVITY 1.015 Normal 1.005-<=1. 025 [facility] Comment on above: Performed By: #### L IPID, CMP #### [facility] [address] [place] [address] Dr. Katrin Ceja UA PROTEIN Negative Normal NEGATIVE/ TRACE [facility] Comment on above: Performed By: #### L IPID, CMP #### [facility] [address] [place] [address] Dr. Katrin Ceja UR MICRO IND NOT INDICATED Normal [facility] Comment on above: Performed By: #### L IPID, CMP #### [facility] [address] [place] [address] Dr. Katrin Ceja Urobilinogen Qn (U) 0.2 {Jeannie'U}/dL Normal 0.2 - 1. 0 [facility] Comment on above: Performed By: #### L IPID, CMP #### [facility] [address] [place] [address] Dr. Katrin Ceja LIPASEon 03-22-2022 Lipase [Catalytic activity/Vol] 84.0 U/L Normal 73.0-393.0 [facility] Comment on above: Performed By: #### H STROPN, CMP, LIPA #### [facility] [address] [place] [address] Dr. Katrin Ceja URon 03-22-2022 , QUAL Negative Normal NEGATIVE [facility] Comment on above: Performed By: #### L IPID, CMP #### [facility] [address] [place] [address] Dr. Katrin Ceja PROF 14(COMP METB)on 022 Albumin [Mass/Vol] 3.2 g/dL Critically low 3.4-5.0 [facility] Comment on above: Performed By: #### H STROPN, CMP, LIPA #### [facility] [address] [address] [address] Katrin Ceja Albumin/Globulin [Mass ratio] 0.8 {ratio} Normal [facility] Comment on above: Performed By: #### H STROPN, CMP, LIPA #### [facility] [address] [address] [address] Katrin Ceja ALP [Catalytic activity/Vol] 189 U/L Critically high 46-116 [facility] Comment on above: Performed By: #### H STROPN, CMP, LIPA #### [facility] [address] [place] [address] Dr. Katrin Ceja ALT [Catalytic activity/Vol] 31 U/L Normal 14-59 [facility] Comment on above: Performed By: #### H STROPN, CMP, LIPA #### [facility] [address] [place] [address] Dr. Katrin Ceja Anion gap [Moles/Vol] 9.9 mmol/L Normal [facility] Comment on above: Performed By: #### H STROPN, CMP, LIPA #### [facility] [address] [place] [address] Dr. Katrin Ceja AST [Catalytic activity/Vol] 17 U/L Normal 15-37 [facility] Comment on above: Performed By: #### H STROPN, CMP, LIPA #### [facility] [address] [place] [address] Dr. Katrin Ceja Bilirubin [Mass/Vol] 0.2 mg/dL Normal 0.2-1.0 [facility] Comment on above: Performed By: #### H STROPN, CMP, LIPA #### [facility] [address] [place] [address] Dr. Katrin Ceja Calcium [Mass/Vol] 8.7 mg/dL Normal 8.5-10.1 [facility] Comment on above: Performed By: #### H STROPN, CMP, LIPA #### [facility] [address] [address] [address] Katrin Ceja Chloride [Moles/Vol] 103 mmol/L Normal 98-107 [facility] Comment on above: Performed By: #### H STROPN, CMP, LIPA #### [facility] [address] [place] [address] Dr. Katrin Ceja CO2 [Moles/Vol] 25.4 mmol/L Normal 21.0-32.0 [facility] Comment on above: Performed By: #### H STROPN, CMP, LIPA #### [facility] [address] [address] [address] Katrin Ceja Creatinine [Mass/Vol] 0.71 mg/dL Normal 0.55-1.02 [facility] Comment on above: Performed By: #### H STROPN, CMP, LIPA #### [facility] [address] [place] [address] Dr. Katrin Ceja EGFR-AF WALLISIAN >60 Normal >=60 [facility] Comment on above: Performed By: #### H STROPN, CMP, LIPA #### [facility] [address] [address] [address] Katrin Ceja EGFR-NON AF WALLISIAN >60 Normal >=60 [facility] Comment on above: Performed By: #### H STROPN, CMP, LIPA #### [facility] [address] [place] [address] Dr. Katrin Ceja Globulin (S) [Mass/Vol] 4.0 g/dL Normal [facility] Comment on above: Performed By: #### H STROPN, CMP, LIPA #### [facility] [address] [address] [address] Katrin Ceja Glucose [Mass/Vol] 106 mg/dL Normal 74-106 [facility] Comment on above: Performed By: #### H STROPN, CMP, LIPA #### [facility] [facility] [address] [place] [address] Dr. Katrin Ceja Potassium [Moles/Vol] 3.3 mmol/L Critically low 3.5-5.1 [facility] Comment on above: Performed By: #### H STROPN, CMP, LIPA #### [facility] [address] [address] [address] Katrin Ceja Protein [Mass/Vol] 7.2 g/dL Normal 6.4-8.2 [facility] Comment on above: Performed By: #### H STROPN, CMP, LIPA #### [facility] [address] [address] [address] Katrin Ceja Sodium [Moles/Vol] 135 mmol/L Critically low 136-145 [facility] Comment on above: Performed By: #### H STROPN, CMP, LIPA #### [facility] [address] [address] [address] Katrin Ceja Urea nitrogen [Mass/Vol] 5.0 mg/dL Critically low 7.0-18.0 [facility] Comment on above: Performed By: #### H STROPN, CMP, LIPA #### [facility] [address] [address] [address] Katrin Ceja Urea nitrogen/Creatinine [Mass ratio] 7.0 mg/mg Normal [facility] Comment on above: Performed By: #### H STROPN, CMP, LIPA #### [facility] [address] [address] [address] Katrin Ceja TROPONIN, HIGH SENSITIVITYon 03-22-2022 HSTROP <4.0 Normal 4.0-51.3 [facility] Comment on above: Result Comment: CUT- OFF POINTS HAVE BEEN ESTABLISHED BASED ON THE FOURTH UNIVERSAL DEFINITIONS OF MYOCARDIAL INFARCTION. THE UPPER REFERENCE LIMIT (URL) OF TROPONIN, DEFINED THE 99TH PERCENTILE OF cTnI DISTRIBUTION IN A REFERENCE POPULATION, HAS BEEN CONFIRMED THE DECISION THRESHOLD FOR MD DIAGNOSIS. Performed By: #### H STROPN, CMP, LIPA #### [facility] [address] [place] [address] Dr. Katrin Ceja XR ABD FLAT UP_PA [...] GERI LASSITER Date: 2022-03-22 01:53 Normal [facility] XR ANKLE LT MIN 3 Von 2021 XR ANKLE LT MIN 3 V EXAM: XR ANKLE LT MD N 3 V HISTORY: Ankle pain COMPARISON: None. TECHNIQUE: 3 views FINDINGS: No osseous lesion, fracture, dislocation or subluxation. Joint spaces are normal. Old posttraumatic ossifications adjacent to the tip of the lateral malleolus. No visualized effusion. No visualized soft tissue edema. IMPRESSION: Normal x-rays Electronically authenticated by: DANNI QUINONES Date: 2022-03-09 19:32 Normal [facility] CBC AUTO DIFFon 02-08-2022 BASO # 0.0 103/ul Normal 0.0-0.1 [facility] Comment on above: Performed By: #### C BC #### [facility] [address] [place] [address] Dr. Katrin Ceja Basophils/100 WBC (Bld) 0.3 % Normal 0.2-2.0 [facility] Comment on above: Performed By: #### C BC #### [facility] [address] [place] [address] Dr. Katrin Ceja EO # 0.3 103/ul Normal 0.0-0.7 [facility] Comment on above: Performed By: #### C BC #### [facility] [address] [place] [address] Dr. Katrin Ceja Eosinophils/100 WBC (Bld) 3.0 % Normal 0.9-7.0 [facility] Comment on above: Performed By: #### C BC #### [facility] [address] [place] [address] Dr. Katrin Ceja Erythrocyte distribution width (RBC) [Ratio] 12.2 % Normal 11.0-15.0 [facility] Comment on above: Performed By: #### C BC #### [facility] [address] [place] [address] Dr. Katrin Ceja Hematocrit (Bld) [Volume fraction] 33.8 % Critically low 36.0-48.0 [facility] Comment on above: Performed By: #### C BC #### [facility] [address] [place] [address] Dr. Katrin Ceja Hemoglobin (Bld) [Mass/Vol] 11.9 g/dL Critically low 12.0-16.0 [facility] Comment on above: Performed By: #### C BC #### [facility] [address] [place] [address] Dr. Katrin Ceja IG # 0.04 10e3/ul Critically high 0.00-0.03 [facility] Comment on above: Performed By: #### C BC #### [facility] [address] [place] [address] Dr. Katrin Ceja IG % 0.4 % Normal 0.0-0.5 [facility] Comment on above: Performed By: #### C BC #### [facility] [address] [place] [address] Dr. Katrin Ceja LYMPH # 3.0 103/ul Normal 1.2-3.8 [facility] Comment on above: Performed By: #### C BC #### [facility] [address] [place] [address] Dr. Katrin Ceja Lymphocytes/100 WBC (Bld) 28.4 % Normal 20.5-60.0 [facility] Comment on above: Performed By: #### C BC #### [facility] [address] [place] [address] Dr. Katrin Ceja MANUAL DIFF REQ NO Normal [facility] Comment on above: Performed By: #### C BC #### [facility] [address] [place] [address] Dr. Katrin Ceja MCH (RBC) [Entitic mass] 29.8 pg Normal 26.7-34.0 [facility] Comment on above: Performed By: #### C BC #### [facility] [address] [place] [address] Dr. Katrin Ceja MCHC (RBC) [Mass/Vol] 35.2 g/dL Normal 29.9-35.2 [facility] Comment on above: Performed By: #### C BC #### [facility] [address] [place] [address] Dr. Katrin Ceja MCV (RBC) [Entitic vol] 84.7 fL Normal 81.0-99.0 [facility] Comment on above: Performed By: #### C BC #### [facility] [address] [place] [address] Dr. Katrin Ceja MONO # 0.7 103/ul Normal 0.3-0.8 [facility] Comment on above: Performed By: #### C BC #### [facility] [address] [place] [address] Dr. Katrin Ceja Monocytes/100 WBC (Bld) 6.6 % Normal 1.7-12.0 [facility] Comment on above: Performed By: #### C BC #### [facility] [address] [place] [address] Dr. Katrin Ceja NEUT # 6.4 103/ul Normal 1.4-6.5 [facility] Comment on above: Performed By: #### C BC #### [facility] [address] [place] [address] Dr. Katrin Ceja Neutrophils/100 WBC (Bld) 61.3 % Normal 43.0-75.0 [facility] Comment on above: Performed By: #### C BC #### [facility] [address] [place] [address] Dr. Katrin Ceja Platelet mean volume (Bld) [Entitic vol] 8.9 fL Critically low 9.5-13.5 [facility] Comment on above: Performed By: #### C BC #### [facility] [address] [place], [place] [id number] Dr. Katrin Ceja PLT 299 103/ul Normal 150-450 [facility] Comment on above: Performed By: #### C BC #### [facility] [address] [place] [address] Dr. Katrin Ceja RBC 3.99 106/ul Critically low 4.20-5.40 [facility] Comment on above: Performed By: #### C BC #### [facility] [address] [place] [address] Dr. Katrin Ceja WBC 10.4 103/ul Normal 4.0-11.0 [facility] Comment on above: Performed By: #### C BC #### [facility] [address] [place] [address] Dr. Katrin Ceja D-DIMERon 02-08-2022 D-DIMER 0.59 mg/L FEU Normal <=0.59 [facility] Comment on above: Performed By: #### L IPID, CMP #### [facility] [address] [place] [address] Dr. Katrin Ceja D-DIMER COMMENTS SEE BELOW Normal [facility] Comment on above: Result Comment: Incr eases [...] Performed By: #### L IPID, CMP #### [facility] [address] [place] [address] Dr. Katrin Ceja PROF CHEM 8 (BAS METB)on Anion gap [Moles/Vol] 12.8 mmol/L Normal [facility] Comment on above: Performed By: #### C BC #### [facility] [address] [place] [address] Dr. Katrin Ceja Calcium [Mass/Vol] 8.7 mg/dL Normal 8.5-10.1 [facility] Comment on above: Performed By: #### C BC #### [facility] [address] [address] [address] Katrin Ceja Chloride [Moles/Vol] 102 mmol/L Normal 98-107 [facility] Comment on above: Performed By: #### C BC #### [facility] [address] [address] [address] Katrin Ceja CO2 [Moles/Vol] 25.9 mmol/L Normal 21.0-32.0 [facility] Comment on above: Performed By: #### C BC #### [facility] [address] [address] [address] Katrin Ceja Creatinine [Mass/Vol] 0.70 mg/dL Normal 0.55-1.02 [facility] Comment on above: Performed By: #### C BC #### [facility] [address] [place] [address] Dr. Katrin Ceja EGFR-AF WALLISIAN >60 Normal >=60 [facility] Comment on above: Performed By: #### C BC #### [facility] [address] [address] [address] Katrin Ceja EGFR-NON AF WALLISIAN >60 Normal >=60 [facility] Comment on above: Performed By: #### C BC #### [facility] [address] [place] [address] Dr. Katrin Ceja Glucose [Mass/Vol] 95 mg/dL Normal 74-106 [facility] Comment on above: Performed By: #### C BC #### [facility] [address] [address] [address] Katrin Ceja Potassium [Moles/Vol] 2.7 mmol/L Critically low 3.5-5.1 [facility] Comment on above: Result Comment: Test Repeated. Critical Value Verified Performed By: #### C BC #### [facility] [address] [place] [address] Dr. Katrin Ceja Sodium [Moles/Vol] 136 mmol/L Normal 136-145 [facility] Comment on above: Performed By: #### C BC #### [facility] [address] [address] [address] Katrin Ceja Urea nitrogen [Mass/Vol] 3.0 mg/dL Critically low 7.0-18.0 [facility] Comment on above: Performed By: #### C BC #### [facility] [address] [address] [address] Katrin Ceja Urea nitrogen/Creatinine [Mass ratio] 4.3 mg/mg Normal [facility] Comment on above: Performed By: #### C BC #### [facility] [address] [address] [address] Katrin Ceja XR CHEST 2 Von [...] by: RIVER SAID Date: 2022-02-08 04:19 Normal [facility] LIPID PROFILEon 12-18-2021 CHOL-HDL RATIO NORM SEE BELOW Normal [facility] Comment on above: Result Comment: 3.3 - 4.4 LOW RISK 4.4 - 7.1 AVERAGE RISK 7.1 - 11.0 MODERATE RISK >11.0 HIGH RISK Performed By: #### L IPID, LIVER #### [facility] [address] [id number] [address] Katrin Ceja Cholesterol [Mass/Vol] 126 mg/dL Normal <=200 [facility] Comment on above: Performed By: #### L IPID, LIVER #### [facility] [address] [id number] [address] Katrin Ceja Cholesterol in HDL [Mass/Vol] 31 mg/dL Critically low 40-60 [facility] Comment on above: Performed By: #### L IPID, LIVER #### [facility] [address] [address] [address] Katrin Ceja Cholesterol in LDL [Mass/Vol] 59.2 mg/dL Normal [facility] Comment on above: Performed By: #### L IPID, LIVER #### [facility] [address] [address] [address] Katrin Ceja Cholesterol.total/Chol esterol in HDL [Mass ratio] 4.1 {ratio} Normal [facility] Comment on above: Performed By: #### L IPID, LIVER #### [facility] [address] [address] [address] Katrin Ceja HDL NORMAL > or = 60 mg/dl - LO W CARDIOVASCULAR RISK <40 mg/dl - HIGH CARDIOVASCULAR RISK Normal [facility] Comment on above: Performed By: #### L IPID, LIVER #### [facility] [address] [place] [address] Dr. Katrin Ceja LDL CALC NORMAL SEE BELOW Normal [facility] Comment on above: Result Comment: <100 mg/dl OPTIMAL 100 - 129 mg/dl NEAR OR ABOVE OPTIMAL 130 - 159 mg/dl BORDERLINE HIGH 160 - 189 mg/dl HIGH >190 mg/dl VERY HIGH Performed By: #### L IPID, LIVER #### [facility] [address] [place] [address] Dr. Katrin Ceja Triglyceride [Mass/Vol] 179 mg/dL Critically high <=150 [facility] Comment on above: Performed By: #### L IPID, LIVER #### [facility] [address] [place] [address] Dr. Katrin Ceja VLDL CALC 35.8 mg/dL Normal [facility] Comment on above: Performed By: #### L IPID, LIVER #### [facility] [address] [address] [address] Katrin Ceja LIVER PROFILEon 12-18-2021 Albumin [Mass/Vol] 3.6 g/dL Normal 3.4-5.0 [facility] Comment on above: Performed By: #### L IPID, LIVER #### [facility] [address] [place] [address] Dr. Katrin Ceja Albumin/Globulin [Mass ratio] 0.8 {ratio} Normal [facility] Comment on above: Performed By: #### L IPID, LIVER #### [facility] [address] [place] [address] Dr. Katrin Ceja ALP [Catalytic activity/Vol] 196 U/L Critically high 46-116 [facility] Comment on above: Performed By: #### L IPID, LIVER #### [facility] [address] [address] [address] Katrin Ceja ALT [Catalytic activity/Vol] 51 U/L Normal 14-59 [facility] Comment on above: Performed By: #### L IPID, LIVER #### [facility] [address] [place] [address] Dr. Katrin Ceja AST [Catalytic activity/Vol] 22 U/L Normal 15-37 [facility] Comment on above: Performed By: #### L IPID, LIVER #### [facility] [address] [place] [address] Dr. Katrin Ceja BILI, CONJUGATED 0.1 mg/dL Normal 0.0-0.2 [facility] Comment on above: Performed By: #### L IPID, LIVER #### [facility] [address] [place] [address] Dr. Katrin Ceja Bilirubin [Mass/Vol] 0.4 mg/dL Normal 0.2-1.0 [facility] Comment on above: Performed By: #### L IPID, LIVER #### [facility] [address] [place] [address] Dr. Katrin Ceja Globulin (S) [Mass/Vol] 4.4 g/dL Normal [facility] Comment on above: Performed By: #### L IPID, LIVER #### [facility] [address] [place] [address] Dr. Katrin Ceja Protein [Mass/Vol] 8.0 g/dL Normal 6.4-8.2 [facility] Comment on above: Performed By: #### L IPID, LIVER #### [facility] [address] [place] [address] Dr. Katrin Ceja XR FOOT RT MIN [...] by: RIVER RODGERS Date: 2021-12-07 00:19 Normal [facility] PROF 14(COMP METB)on 022 Albumin [Mass/Vol] 3.6 g/dL Normal 3.4-5.0 [facility] Comment on above: Performed By: #### L IPID, CMP #### [facility] [address] [place] [address] Dr. Katrin Ceja Albumin/Globulin [Mass ratio] 0.8 {ratio} Normal [facility] Comment on above: Performed By: #### L IPID, CMP #### [facility] [address] [place] [address] Dr. Katrin Ceja ALP [Catalytic activity/Vol] 209 U/L Critically high 46-116 [facility] Comment on above: Performed By: #### L IPID, CMP #### [facility] [address] [place] [address] Dr. Katrin Ceja ALT [Catalytic activity/Vol] 65 U/L Critically high 14-59 [facility] Comment on above: Performed By: #### L IPID, CMP #### [facility] [address] [place] [address] Dr. Katrin Ceja Anion gap [Moles/Vol] 15.7 mmol/L Normal [facility] Comment on above: Performed By: #### L IPID, CMP #### [facility] [address] [place] [address] Dr. Katrin Ceja AST [Catalytic activity/Vol] 31 U/L Normal 15-37 [facility] Comment on above: Performed By: #### L IPID, CMP #### [facility] [address] [address] [address] Katrin Ceja Bilirubin [Mass/Vol] 0.2 mg/dL Normal 0.2-1.3 [facility] Comment on above: Performed By: #### L IPID, CMP #### [facility] [address] [place] [address] Dr. Katrin Ceja Calcium [Mass/Vol] 8.8 mg/dL Normal 8.5-10.1 [facility] Comment on above: Performed By: #### L IPID, CMP #### [facility] [address] [place] [address] Dr. Katrni Ceja Chloride [Moles/Vol] 105 mmol/L Normal 98-107 [facility] Comment on above: Performed By: #### L IPID, CMP #### [facility] [address] [place] [address] Dr. Katrin Ceja CO2 [Moles/Vol] 21.3 mmol/L Critically low 22.0-30.0 [facility] Comment on above: Performed By: #### L IPID, CMP #### [facility] [address] [place] [address] Dr. Katrin Ceja Creatinine [Mass/Vol] 0.72 mg/dL Normal 0.52-1.04 [facility] Comment on above: Performed By: #### L IPID, CMP #### [facility] [address] [place] [address] Dr. Katrin Ceja EGFR-AF WALLISIAN >60 Normal >=60 [facility] Comment on above: Performed By: #### L IPID, CMP #### [facility] [address] [place] [address] Dr. Katrin Ceja EGFR-NON AF WALLISIAN >60 Normal >=60 [facility] Comment on above: Performed By: #### L IPID, CMP #### [facility] [address] [place] [address] Dr. Katrin Ceja Globulin (S) [Mass/Vol] 4.3 g/dL Normal [facility] Comment on above: Performed By: #### L IPID, CMP #### [facility] [address] [address] [address] Katrin Ceja Glucose [Mass/Vol] 99 mg/dL Normal 74-106 [facility] Comment on above: Performed By: #### L IPID, CMP #### [facility] [address] [address] [address] Katrin Ceja Potassium [Moles/Vol] 4.0 mmol/L Normal 3.4-5.0 [facility] Comment on above: Performed By: #### L IPID, CMP #### [facility] [address] [place] [address] Dr. Katrin Ceja Protein [Mass/Vol] 7.9 g/dL Normal 6.1-8.2 [facility] Comment on above: Performed By: #### L IPID, CMP #### [facility] [address] [place] [address] Dr. Katrin Ceja Sodium [Moles/Vol] 138 mmol/L Normal 137-145 [facility] Comment on above: Performed By: #### L IPID, CMP #### [facility] [address] [place] [address] Dr. Katrin Ceja Urea nitrogen [Mass/Vol] 13.0 mg/dL Normal 7.0-18.0 [facility] Comment on above: Performed By: #### L IPID, CMP #### [facility] [address] [place] [address] Dr. Katrin Ceja Urea nitrogen/Creatinine [Mass ratio] 18.1 mg/mg Normal [facility] Comment on above: Performed By: #### L IPID, CMP #### [facility] [address] [place] [address] Dr. Katrin Ceja XR HUMERUS RT MIN [...] MODESTA NAVA Date: 2021-10-17 01:46 Normal [facility] XR SHOULDER RT 2V or >on XR SHOULDER RT 2V or > EXAM: XR SHOULDER RT 2V or > HISTORY: Pain right arm pain following fall. COMPARISON: None. TECHNIQUE: Standard 3 views of the right shoulder. FINDINGS: No acute or intrinsic osseous, articular or soft tissue abnormality is seen. IMPRESSION: No acute findings. Electronically authenticated by: MODESTA NAVA Date: 2021-10-17 01:45 Normal [facility] XR WRIST RT MIN 3 Von 2021 XR WRIST RT MIN 3 V EXAM: XR WRIST RT MD N 3 V HISTORY: Pain acute right arm pain following fall. COMPARISON: None. TECHNIQUE: AP, oblique and lateral views of the right wrist. FINDINGS: No acute or intrinsic osseous, articular or soft tissue abnormality is seen. IMPRESSION: No acute right wrist findings. Electronically authenticated by: MODESTA NAVA Date: 2021-10-17 01:44 Normal [facility] AMYLASEon 09-18-2021 Amylase [Catalytic activity/Vol] 34 U/L Normal 31-110 [facility] Comment on above: Performed By: #### P REG #### [facility] [address] [place] [address] Dr. Katrin Ceja CBC AUTO DIFFon 09-18-2021 BASO # 0.0 103/ul Normal 0.0-0.1 [facility] Comment on above: Performed By: #### C BC #### [facility] [address] [place] [address] Dr. Katrin Ceja Basophils/100 WBC (Bld) 0.3 % Normal 0.2-2.0 [facility] Comment on above: Performed By: #### C BC #### [facility] [address] [place] [address] Dr. Katrin Ceja EO # 0.2 103/ul Normal 0.0-0.7 [facility] Comment on above: Performed By: #### C BC #### [facility] [address] [place] [address] Dr. Katrin Ceja Eosinophils/100 WBC (Bld) 2.4 % Normal 0.9-7.0 [facility] Comment on above: Performed By: #### C BC #### [facility] [address] [place] [address] Dr. Katrin Ceja Erythrocyte distribution width (RBC) [Ratio] 12.5 % Normal 11.0-15.0 [facility] Comment on above: Performed By: #### C BC #### [facility] [address] [place] [address] Dr. Katrin Ceja Hematocrit (Bld) [Volume fraction] 37.4 % Normal 36.0-48.0 [facility] Comment on above: Performed By: #### C BC #### [facility] [address] [place] [address] Dr. Katrin Ceja Hemoglobin (Bld) [Mass/Vol] 12.3 g/dL Normal 12.0-16.0 [facility] Comment on above: Performed By: #### C BC #### [facility] [address] [place] [address] Dr. Katrin Ceja IG # 0.05 10e3/ul Critically high 0.00-0.03 [facility] Comment on above: Performed By: #### C BC #### [facility] [address] [place] [address] Dr. Katrin Ceja IG % 0.5 % Normal 0.0-0.5 [facility] Comment on above: Performed By: #### C BC #### [facility] [address] [place] [address] Dr. Katrin Ceja LYMPH # 3.1 103/ul Normal 1.2-3.8 [facility] Comment on above: Performed By: #### C BC #### [facility] [address] [place] [address] Dr. Katrin Ceja Lymphocytes/100 WBC (Bld) 31.7 % Normal 20.5-60.0 [facility] Comment on above: Performed By: #### C BC #### [facility] [address] [place] [address] Dr. Katrin Ceja MANUAL DIFF REQ NO Normal [facility] Comment on above: Performed By: #### C BC #### [facility] [address] [place] [address] Dr. Katrin Ceja MCH (RBC) [Entitic mass] 28.9 pg Normal 26.7-34.0 [facility] Comment on above: Performed By: #### C BC #### [facility] [address] [place] [address] Dr. Katrin Ceja MCHC (RBC) [Mass/Vol] 32.9 g/dL Normal 29.9-35.2 [facility] Comment on above: Performed By: #### C BC #### [facility] [address] [place] [address] Dr. Katrin Ceja MCV (RBC) [Entitic vol] 88.0 fL Normal 81.0-99.0 [facility] Comment on above: Performed By: #### C BC #### [facility] [address] [place] [address] Dr. Katrin Ceja MONO # 0.7 103/ul Normal 0.3-0.8 [facility] Comment on above: Performed By: #### C BC #### [facility] [address] [place] [address] Dr. Katrin Ceja Monocytes/100 WBC (Bld) 6.7 % Normal 1.7-12.0 [facility] Comment on above: Performed By: #### C BC #### [facility] [address] [place] [address] Dr. Katrin Ceja NEUT # 5.7 103/ul Normal 1.4-6.5 [facility] Comment on above: Performed By: #### C BC #### [facility] [address] [place] [address] Dr. Katrin Ceja Neutrophils/100 WBC (Bld) 58.4 % Normal 43.0-75.0 [facility] Comment on above: Performed By: #### C BC #### [facility] [address] [address] [address] Katrin Ceja Platelet mean volume (Bld) [Entitic vol] 8.8 fL Critically low 9.5-13.5 [facility] Comment on above: Performed By: #### C BC #### [facility] [address] [address] [address] Katrin Ceja PLT 265 103/ul Normal 150-450 [facility] Comment on above: Performed By: #### C BC #### [facility] [address] [address] [address] Katrin Ceja RBC 4.25 106/ul Normal 4.20-5.40 [facility] Comment on above: Performed By: #### C BC #### [facility] [address] [address] [address] Katrin Ceja WBC 9.7 103/ul Normal 4.0-11.0 [facility] Comment on above: Performed By: #### C BC #### [facility] [address] [place] [address] ABD/PELV W CONon [...] ISAIAH FAROOQ Date: 2021-09-18 03:51 Normal [facility] URINE PROFILEon 2 Bilirubin Ql (U) Negative Normal NEGATIVE [facility] Comment on above: Performed By: #### C BC #### [facility] [address] [place] [address] Dr. Katrin Ceja Clarity (U) CLEAR Normal CLEAR [facility] Comment on above: Performed By: #### C BC #### [facility] [address] [place] [address] Dr. Katrin Ceja Color (U) LT. YELLOW Normal YELLOW [facility] Comment on above: Performed By: #### C BC #### [facility] [address] [place] [address] Dr. Katrin Ceja ERUAHD A micrscopic examina tion will be performed if indicated. Normal [facility] Comment on above: Performed By: #### C BC #### [facility] [address] [place] [address] Dr. Katrin Ceja Glucose Ql (U) Negative Normal NEGATIVE [facility] Comment on above: Performed By: #### C BC #### [facility] [address] [place] [address] Dr. Katrin Ceja Hemoglobin Ql (U) SMALL Abnormal NEGATIVE [facility] Comment on above: Performed By: #### C BC #### [facility] [address] [place] [address] Dr. Katrin Ceja Ketones Ql (U) Negative Normal NEGATIVE [facility] Comment on above: Performed By: #### C BC #### [facility] [address] [place] [address] Dr. Katrin Ceja LEUKOCYTES Negative Normal NEGATIVE [facility] Comment on above: Performed By: #### C BC #### [facility] [address] [place] [address] Dr. Katrin Ceja Nitrite Ql (U) Negative Normal NEGATIVE [facility] Comment on above: Performed By: #### C BC #### [facility] [address] [place] [address] Dr. Katrin Ceja pH (U) 7.5 [pH] Normal 5-9 [facility] Comment on above: Performed By: #### C BC #### [facility] [address] [place] [address] Dr. Katrin Ceja SPEC GRAVITY 1.010 Normal 1.005-<=1. 025 [facility] Comment on above: Performed By: #### C BC #### [facility] [address] [place] [address] Dr. Katrin Ceja UA PROTEIN Negative Normal NEGATIVE/ TRACE [facility] Comment on above: Performed By: #### C BC #### [facility] [address] [place] [address] Dr. Katrin Ceja UR MICRO IND INDICATED Normal [facility] Comment on above: Performed By: #### C BC #### [facility] [address] [place] [address] Dr. Katrin Ceja Urobilinogen Qn (U) 0.2 {Jeannie'U}/dL Normal 0.2 - 1. 0 [facility] Comment on above: Performed By: #### C BC #### [facility] [address] [place] [address] Dr. Katrin Ceja LIPASEon 09-18-2021 Lipase [Catalytic activity/Vol] 81.0 U/L Normal 23.0-300.0 [facility] Comment on above: Performed By: #### P REG #### [facility] [address] [place] [address] Dr. Katrin Ceja URon 09-18-2021 , QUAL Negative Normal NEGATIVE [facility] Comment on above: Performed By: #### C BC #### [facility] [address] [place] [address] Dr. Katrin Ceja PROF 14(COMP METB)on 022 Albumin [Mass/Vol] 3.2 g/dL Critically low 3.5-5.0 [facility] Comment on above: Performed By: #### P REG #### [facility] [address] [place] [address] Dr. Katrin Ceja Albumin/Globulin [Mass ratio] 0.8 {ratio} Normal [facility] Comment on above: Performed By: #### P REG #### [facility] [address] [address] [address] Katrin Ceja ALP [Catalytic activity/Vol] 216 U/L Critically high 38-126 [facility] Comment on above: Performed By: #### P REG #### [facility] [address] [address] [address] Katrin Ceja ALT [Catalytic activity/Vol] 109 U/L Critically high 9-52 [facility] Comment on above: Performed By: #### P REG #### [facility] [address] [place] [address] Dr. Katrin Ceja Anion gap [Moles/Vol] 10.5 mmol/L Normal [facility] Comment on above: Performed By: #### P REG #### [facility] [address] [place] [address] Dr. Katrin Ceja AST [Catalytic activity/Vol] 66 U/L Critically high 14-36 [facility] Comment on above: Performed By: #### P REG #### [facility] [address] [place] [address] Dr. Katrin Ceja Bilirubin [Mass/Vol] 0.2 mg/dL Normal 0.2-1.3 [facility] Comment on above: Performed By: #### P REG #### [facility] [address] [place] [address] Dr. Katrin Ceja Calcium [Mass/Vol] 8.3 mg/dL Critically low 8.4-10.2 [facility] Comment on above: Performed By: #### P REG #### [facility] [address] [place] [address] Dr. Katrin Ceja Chloride [Moles/Vol] 103 mmol/L Normal 98-107 [facility] Comment on above: Performed By: #### P REG #### [facility] [address] [address] [address] Katrin Ceja CO2 [Moles/Vol] 26.2 mmol/L Normal 22.0-30.0 [facility] Comment on above: Performed By: #### P REG #### [facility] [address] [address] [address] Katrin Ceja Creatinine [Mass/Vol] 0.81 mg/dL Normal 0.52-1.04 [facility] Comment on above: Performed By: #### P REG #### [facility] [address] [address] [address] Katrin Ceja EGFR-AF WALLISIAN >60 Normal >=60 [facility] Comment on above: Performed By: #### P REG #### [facility] [address] [place] [address] Dr. Katrin Ceja EGFR-NON AF WALLISIAN >60 Normal >=60 [facility] Comment on above: Performed By: #### P REG #### [facility] [address] [place] [address] Dr. Katrin Ceja Globulin (S) [Mass/Vol] 4.1 g/dL Normal [facility] Comment on above: Performed By: #### P REG #### [facility] [address] [place] [address] Dr. Katrin Ceja Glucose [Mass/Vol] 90 mg/dL Normal 74-106 [facility] Comment on above: Performed By: #### P REG #### [facility] [address] [place] [address] Dr. Katrin Ceja Potassium [Moles/Vol] 3.7 mmol/L Normal 3.4-5.0 [facility] Comment on above: Performed By: #### P REG #### [facility] [address] [place] [address] Dr. Katrin Ceja Protein [Mass/Vol] 7.3 g/dL Normal 6.1-8.2 [facility] Comment on above: Performed By: #### P REG #### [facility] [address] [place] [address] Dr. Katrin Ceja Sodium [Moles/Vol] 136 mmol/L Critically low 137-145 [facility] Comment on above: Performed By: #### P REG #### [facility] [address] [place] [address] Dr. Katrin Ceja Urea nitrogen [Mass/Vol] 5.0 mg/dL Critically low 7.0-17.0 [facility] Comment on above: Performed By: #### P REG #### [facility] [address] [place] [address] Dr. Katrin Ceja Urea nitrogen/Creatinine [Mass ratio] 6.2 mg/mg Normal [facility] Comment on above: Performed By: #### P REG #### [facility] [address] [place] [address] Dr. Katrin Ceja URINE MICROSCOPIC ONLYon BACTERIA NONE SEEN Normal NONE SEEN [facility] Comment on above: Performed By: #### C BC #### [facility] [address] [place] [address] Dr. Katrin Ceja Bacteria identified Cx Nom (U) NOT INDICATED Normal [facility] Comment on above: Performed By: #### C BC #### [facility] [address] [place] [address] Dr. Katrin Ceja CAST NONE SEEN Normal NONE SEEN [facility] Comment on above: Performed By: #### C BC #### [facility] [address] [place] [address] Dr. Katrin Ceja Crystals LM Nom (Urine sed) NONE SEEN Normal NONE SEEN [facility] Comment on above: Performed By: #### C BC #### [facility] [address] [place] [address] Dr. Katrin Ceja Epithelial cells LM Ql (Urine sed) FEW Abnormal NONE SEEN /RARE [facility] Comment on above: Performed By: #### C BC #### [facility] [address] [place] [address] Dr. Katrin Ceja MUCOUS NONE SEEN Normal NONE SEEN [facility] Comment on above: Performed By: #### C BC #### [facility] [address] [place] [address] Dr. Katrin Ceja RBC NONE SEEN Abnormal 0-2 [facility] Comment on above: Performed By: #### C BC #### [facility] [address] [place] [address] Dr. Katrin Ceja WBC NONE SEEN Normal NONE SEEN [facility] Comment on above: Performed By: #### C BC #### [facility] [address] [place] [address] Dr. Katrin Ceja XR ABD FLAT UP_PA [...] ISAIAH FAROOQ Date: 2021-09-18 02:00 Normal [facility] CBC AUTO DIFFon 07-18-2021 BASO # 0.0 103/ul Normal 0.0-0.1 [facility] Comment on above: Performed By: #### C BC #### [facility] [address] [place] [address] Dr. Katrin Ceja Basophils/100 WBC (Bld) 0.3 % Normal 0.2-2.0 [facility] Comment on above: Performed By: #### C BC #### [facility] [address] [place] [address] Dr. Katrin Ceja EO # 0.2 103/ul Normal 0.0-0.7 [facility] Comment on above: Performed By: #### C BC #### [facility] [address] [place] [address] Dr. Katrin Ceja Eosinophils/100 WBC (Bld) 1.7 % Normal 0.9-7.0 [facility] Comment on above: Performed By: #### C BC #### [facility] [address] [place] [address] Dr. Katrin Ceja Erythrocyte distribution width (RBC) [Ratio] 13.1 % Normal 11.0-15.0 [facility] Comment on above: Performed By: #### C BC #### [facility] [address] [place] [address] Dr. Katrin Ceja Hematocrit (Bld) [Volume fraction] 42.0 % Normal 36.0-48.0 [facility] Comment on above: Performed By: #### C BC #### [facility] [address] [place] [address] Dr. Katrin Ceja Hemoglobin (Bld) [Mass/Vol] 13.7 g/dL Normal 12.0-16.0 [facility] Comment on above: Performed By: #### C BC #### [facility] [address] [place] [address] Dr. Katrin Ceja IG # 0.07 10e3/ul Critically high 0.00-0.03 [facility] Comment on above: Performed By: #### C BC #### [facility] [address] [place] [address] Dr. Katrin Ceja IG % 0.6 % Critically high 0.0-0.5 [facility] Comment on above: Performed By: #### C BC #### [facility] [address] [place] [address] Dr. Katrin Ceja LYMPH # 2.9 103/ul Normal 1.2-3.8 [facility] Comment on above: Performed By: #### C BC #### [facility] [address] [place] [address] Dr. Katrin Ceja Lymphocytes/100 WBC (Bld) 27.1 % Normal 20.5-60.0 [facility] Comment on above: Performed By: #### C BC #### [facility] [address] [place] [address] Dr. Katrin Ceja MANUAL DIFF REQ NO Normal [facility] Comment on above: Performed By: #### C BC #### [facility] [address] [place] [address] Dr. Katrin Ceja MCH (RBC) [Entitic mass] 29.3 pg Normal 26.7-34.0 [facility] Comment on above: Performed By: #### C BC #### [facility] [address] [address] [address] Katrin Ceja MCHC (RBC) [Mass/Vol] 32.6 g/dL Normal 29.9-35.2 [facility] Comment on above: Performed By: #### C BC #### [facility] [address] [address] [address] Katrin Ceja MCV (RBC) [Entitic vol] 89.7 fL Normal 81.0-99.0 [facility] Comment on above: Performed By: #### C BC #### [facility] [address] [address] [address] Katrin Ceja MONO # 0.9 103/ul Critically high 0.3-0.8 [facility] Comment on above: Performed By: #### C BC #### [facility] [address] [address] [address] Katrin Ceja Monocytes/100 WBC (Bld) 8.2 % Normal 1.7-12.0 [facility] Comment on above: Performed By: #### C BC #### [facility] [address] [address] [address] Katrin Ceja NEUT # 6.7 103/ul Critically high 1.4-6.5 [facility] Comment on above: Performed By: #### C BC #### [facility] [address] [address] [address] Katrin Ceja Neutrophils/100 WBC (Bld) 62.1 % Normal 43.0-75.0 [facility] Comment on above: Performed By: #### C BC #### [facility] [address] [address] [address] Katrin Ceja Platelet mean volume (Bld) [Entitic vol] 9.7 fL Normal 9.5-13.5 [facility] Comment on above: Performed By: #### C BC #### [facility] [address] [address] [address] Katrin Ceja PLT 334 103/ul Normal 150-450 [facility] Comment on above: Performed By: #### C BC #### [facility] [address] [address] [address] Katrin Ceja RBC 4.68 106/ul Normal 4.20-5.40 [facility] Comment on above: Performed By: #### C BC #### [facility] [address] [address] [address] Katrin Ceja WBC 10.8 103/ul Normal 4.0-11.0 [facility] Comment on above: Performed By: #### C BC #### [facility] [address] [address] [address] Katrin Ceja GLYCOHEMOGLOBIN A1Con 2021 ADA RECOMMENDATION ADA THERAPEUTIC TARG ET 6.0 - 7.0 ACTION SUGGESTED > 7.0 Normal [facility] Comment on above: Performed By: #### C BC #### [facility] [address] [place] [address] Dr. Katrin Ceja Glucose [Mass/Vol] 105 mg/dL Normal [facility] Comment on above: Performed By: #### C BC #### [facility] [address] [place] [address] Dr. Katrin Ceja HbA1c (Bld) [Mass fraction] 5.3 % Normal <=6.0 [facility] Comment on above: Performed By: #### C BC #### [facility] [address] [place] [address] Dr. Katrin Ceja LIPID PROFILEon 07-18-2021 CHOL-HDL RATIO NORM SEE BELOW Normal [facility] Comment on above: Result Comment: 3.3 - 4.4 LOW RISK 4.4 - 7.1 AVERAGE RISK 7.1 - 11.0 MODERATE RISK >11.0 HIGH RISK Performed By: #### L IPID, CMP #### [facility] [address] [place] [address] Dr. Katrin Ceja Cholesterol [Mass/Vol] 302 mg/dL Critically high <=200 [facility] Comment on above: Performed By: #### L IPID, CMP #### [facility] [address] [address] [address] Katrin Ceja Cholesterol in HDL [Mass/Vol] 39 mg/dL Normal [facility] Comment on above: Performed By: #### L IPID, CMP #### [facility] [address] [address] [address] Katrin Ceja Cholesterol in LDL [Mass/Vol] 207.0 mg/dL Normal [facility] Comment on above: Performed By: #### L IPID, CMP #### [facility] [address] [address] [address] Katrin Ceja Cholesterol.total/Chol esterol in HDL [Mass ratio] 7.7 {ratio} Normal [facility] Comment on above: Performed By: #### L IPID, CMP #### [facility] [address] [address] [address] Katrin Ceja HDL NORMAL > or = 60 mg/dl - LO W CARDIOVASCULAR RISK <40 mg/dl - HIGH CARDIOVASCULAR RISK Normal [facility] Comment on above: Performed By: #### L IPID, CMP #### [facility] [address] [place] [address] Dr. Katrin Ceja LDL CALC NORMAL SEE BELOW Normal [facility] Comment on above: Result Comment: <100 mg/dl OPTIMAL 100 - 129 mg/dl NEAR OR ABOVE OPTIMAL 130 - 159 mg/dl BORDERLINE HIGH 160 - 189 mg/dl HIGH >190 mg/dl VERY HIGH Performed By: #### L IPID, CMP #### [facility] [address] [address] [address] Katrin Ceja Triglyceride [Mass/Vol] 280 mg/dL Critically high <=150 [facility] Comment on above: Performed By: #### L IPID, CMP #### [facility] [address] [place] [address] Dr. Katrin Ceja VLDL CALC 56.0 mg/dL Normal [facility] Comment on above: Performed By: #### L IPID, CMP #### [facility] [address] [address] [address] Katrin Ceja PROF 14(COMP METB)on 022 Albumin [Mass/Vol] 3.5 g/dL Normal 3.5-5.0 [facility] Comment on above: Performed By: #### L IPID, CMP #### [facility] [address] [address] [address] Katrin Ceja Albumin/Globulin [Mass ratio] 0.7 {ratio} Normal [facility] Comment on above: Performed By: #### L IPID, CMP #### [facility] [address] [address] [address] Katrin Ceja ALP [Catalytic activity/Vol] 291 U/L Critically high 38-126 [facility] Comment on above: Performed By: #### L IPID, CMP #### [facility] [address] [address] [address] Katrin Ceja ALT [Catalytic activity/Vol] 174 U/L Critically high 9-52 [facility] Comment on above: Performed By: #### L IPID, CMP #### [facility] [address] [address] [address] Katrin Ceja Anion gap [Moles/Vol] 15.3 mmol/L Normal [facility] Comment on above: Performed By: #### L IPID, CMP #### [facility] [address] [address] [address] Katrin Ceja AST [Catalytic activity/Vol] 97 U/L Critically high 14-36 [facility] Comment on above: Performed By: #### L IPID, CMP #### [facility] [address] [address] [address] Katrin Ceja Bilirubin [Mass/Vol] 0.4 mg/dL Normal 0.2-1.3 [facility] Comment on above: Performed By: #### L IPID, CMP #### [facility] [address] [address] [address] Katrin Ceja Calcium [Mass/Vol] 9.3 mg/dL Normal 8.4-10.2 [facility] Comment on above: Performed By: #### L IPID, CMP #### [facility] [address] [address] [address] Katrin Ceja Chloride [Moles/Vol] 99 mmol/L Normal 98-107 [facility] Comment on above: Performed By: #### L IPID, CMP #### [facility] [address] [address] [address] Katrin Ceja CO2 [Moles/Vol] 24.1 mmol/L Normal 22.0-30.0 [facility] Comment on above: Performed By: #### L IPID, CMP #### [facility] [address] [place] [address] Dr. Katrin Ceja Creatinine [Mass/Vol] 0.65 mg/dL Normal 0.52-1.04 [facility] Comment on above: Performed By: #### L IPID, CMP #### [facility] [address] [place] [address] Dr. Katrin Ceja EGFR-AF WALLISIAN >60 Normal >=60 [facility] Comment on above: Performed By: #### L IPID, CMP #### [facility] [address] [place] [address] Dr. Katrin Ceja EGFR-NON AF WALLISIAN >60 Normal >=60 [facility] Comment on above: Performed By: #### L IPID, CMP #### [facility] [address] [place] [address] Dr. Katrin Ceja Globulin (S) [Mass/Vol] 5.0 g/dL Normal [facility] Comment on above: Performed By: #### L IPID, CMP #### [facility] [address] [place] [address] Dr. Katrin Ceja Glucose [Mass/Vol] 86 mg/dL Normal 74-106 [facility] Comment on above: Performed By: #### L IPID, CMP #### [facility] [address] [place] [address] Dr. Katrin Ceja Potassium [Moles/Vol] 4.4 mmol/L Normal 3.4-5.0 [facility] Comment on above: Performed By: #### L IPID, CMP #### [facility] [address] [address] [address] Katrin Ceja Protein [Mass/Vol] 8.5 g/dL Critically high 6.1-8.2 [facility] Comment on above: Performed By: #### L IPID, CMP #### [facility] [address] [address] [address] Katrin Ceja Sodium [Moles/Vol] 134 mmol/L Critically low 137-145 [facility] Comment on above: Performed By: #### L IPID, CMP #### [facility] [address] [place] [address] Dr. Katrin Ceja Urea nitrogen [Mass/Vol] 8.0 mg/dL Normal 7.0-17.0 [facility] Comment on above: Performed By: #### L IPID, CMP #### [facility] [address] [place] [address] Dr. Katrin Ceja Urea nitrogen/Creatinine [Mass ratio] 12.3 mg/mg Normal [facility] Comment on above: Performed By: #### L IPID, CMP #### [facility] [address] [place] [address] Dr. Katrin Ceja AMYLASEon 05-01-2021 AMYL <30 Critically low 31-110 [facility] Comment on above: Performed By: #### P REG #### [facility] [address] [place] [address] Dr. Katrin Ceja CBC AUTO DIFFon 05-01-2021 BASO # 0.0 103/ul Normal 0.0-0.1 [facility] Comment on above: Performed By: #### L IPID, CMP #### [facility] [address] [place] [address] Dr. Katrin Ceja Basophils/100 WBC (Bld) 0.3 % Normal 0.2-2.0 [facility] Comment on above: Performed By: #### L IPID, CMP #### [facility] [address] [place] [address] Dr. Katrin Ceja EO # 0.1 103/ul Normal 0.0-0.7 [facility] Comment on above: Performed By: #### L IPID, CMP #### [facility] [address] [place] [address] Dr. Katrin Ceja Eosinophils/100 WBC (Bld) 0.4 % Critically low 0.9-7.0 [facility] Comment on above: Performed By: #### L IPID, CMP #### [facility] [address] [place] [address] Dr. Katrin Ceja Erythrocyte distribution width (RBC) [Ratio] 13.0 % Normal 11.0-15.0 [facility] Comment on above: Performed By: #### L IPID, CMP #### [facility] [address] [place] [address] Dr. Katrin Ceja Hematocrit (Bld) [Volume fraction] 37.7 % Normal 36.0-48.0 [facility] Comment on above: Performed By: #### L IPID, CMP #### [facility] [address] [place] [address] Dr. Katrin Ceja Hemoglobin (Bld) [Mass/Vol] 12.5 g/dL Normal 12.0-16.0 [facility] Comment on above: Performed By: #### L IPID, CMP #### [facility] [address] [place] [address] Dr. Katrin Ceja IG # 0.09 10e3/ul Critically high 0.00-0.03 [facility] Comment on above: Performed By: #### L IPID, CMP #### [facility] [address] [place] [address] Dr. Katrin Ceja IG % 0.6 % Critically high 0.0-0.5 [facility] Comment on above: Performed By: #### L IPID, CMP #### [facility] [address] [place] [address] Dr. Katrin Ceja LYMPH # 1.9 103/ul Normal 1.2-3.8 [facility] Comment on above: Performed By: #### L IPID, CMP #### [facility] [address] [place] [address] Dr. Katrin Ceja Lymphocytes/100 WBC (Bld) 12.1 % Critically low 20.5-60.0 [facility] Comment on above: Performed By: #### L IPID, CMP #### [facility] [address] [place] [address] Dr. Katrin Ceja MANUAL DIFF REQ NO Normal [facility] Comment on above: Performed By: #### L IPID, CMP #### [facility] [address] [place] [address] Dr. Katrin Ceja MCH (RBC) [Entitic mass] 28.8 pg Normal 26.7-34.0 [facility] Comment on above: Performed By: #### L IPID, CMP #### [facility] [address] [place] [address] Dr. Katrin Ceja MCHC (RBC) [Mass/Vol] 33.2 g/dL Normal 29.9-35.2 [facility] Comment on above: Performed By: #### L IPID, CMP #### [facility] [address] [place] [address] Dr. Katrin Ceja MCV (RBC) [Entitic vol] 86.9 fL Normal 81.0-99.0 [facility] Comment on above: Performed By: #### L IPID, CMP #### [facility] [address] [place] [address] Dr. Kartin Ceja MONO # 1.1 103/ul Critically high 0.3-0.8 [facility] [facility] Comment on above: Performed By: #### L IPID, CMP #### [facility] [address] [place] [address] Dr. Katrin Ceja Monocytes/100 WBC (Bld) 7.1 % Normal 1.7-12.0 [facility] Comment on above: Performed By: #### L IPID, CMP #### [facility] [address] [place] [address] Dr. Katrin Ceja NEUT # 12.3 103/ul Critically high 1.4-6.5 [facility] Comment on above: Performed By: #### L IPID, CMP #### [facility] [address] [address] [address] Katrin Ceja Neutrophils/100 WBC (Bld) 79.5 % Critically high 43.0-75.0 [facility] Comment on above: Performed By: #### L IPID, CMP #### [facility] [address] [address] [address] Katrin Ceja Platelet mean volume (Bld) [Entitic vol] 8.7 fL Critically low 9.5-13.5 [facility] Comment on above: Performed By: #### L IPID, CMP #### [facility] [address] [address] [address] Katrin Ceja PLT 329 103/ul Normal 150-450 [facility] Comment on above: Performed By: #### L IPID, CMP #### [facility] [address] [place] [address] Dr. Katrin Ceja RBC 4.34 106/ul Normal 4.20-5.40 [facility] Comment on above: Performed By: #### L IPID, CMP #### [facility] [address] [place] [address] Dr. Katrin Ceja WBC 15.5 103/ul Critically high 4.0-11.0 [facility] Comment on above: Performed By: #### L IPID, CMP #### [facility] [address] [place] [address] ABD/PELV W CONon [...] by: HILDA RAHMAN Date: 2021-05-01 20:30 Normal [facility] LIPASEon 05-01-2021 Lipase [Catalytic activity/Vol] 64.0 U/L Normal 23.0-300.0 [facility] Comment on above: Performed By: #### P REG #### [facility] [address] [address] [address] Katrin Ceja LIVER PROFILEon 05-01-2021 Albumin [Mass/Vol] 3.3 g/dL Critically low 3.5-5.0 [facility] Comment on above: Performed By: #### L IPID, CMP #### [facility] [address] [place], [place] [address] Dr. Katrin Ceja Albumin/Globulin [Mass ratio] 0.6 {ratio} Normal [facility] Comment on above: Performed By: #### L IPID, CMP #### [facility] [address] [address] [address] Katrin Ceja ALP [Catalytic activity/Vol] 412 U/L Critically high 38-126 [facility] Comment on above: Performed By: #### L IPID, CMP #### [facility] [address] [address] [address] Katrin Ceja ALT [Catalytic activity/Vol] 124 U/L Critically high 9-52 [facility] Comment on above: Performed By: #### L IPID, CMP #### [facility] [address] [address] [address] Katrin Ceja AST [Catalytic activity/Vol] 61 U/L Critically high 14-36 [facility] Comment on above: Performed By: #### L IPID, CMP #### [facility] [address] [place] [address] Dr. Katrin Ceja BILI, CONJUGATED 0.2 mg/dL Normal 0.0-0.3 [facility] Comment on above: Performed By: #### L IPID, CMP #### [facility] [address] [address] [address] Katrin Ceja Bilirubin [Mass/Vol] 0.4 mg/dL Normal 0.2-1.3 [facility] Comment on above: Performed By: #### L IPID, CMP #### [facility] [address] [address] [address] Katrin Ceja Globulin (S) [Mass/Vol] 5.1 g/dL Normal [facility] Comment on above: Performed By: #### L IPID, CMP #### [facility] [address] [address] [address] Katrin Ceja Protein [Mass/Vol] 8.4 g/dL Critically high 6.1-8.2 [facility] Comment on above: Performed By: #### L IPID, CMP #### [facility] [address] [address] [address] Katrin Ceja PREG HCG QUALon 05-01-2021 , QUAL Negative Normal NEGATIVE [facility] Comment on above: Performed By: #### P REG #### [facility] [address] [address] [address] Katrin Ceja PROF CHEM 8 (BAS METB)on Anion gap [Moles/Vol] 17.1 mmol/L Normal [facility] Comment on above: Performed By: #### P REG #### [facility] [address] [address] [address] Katrin Ceja Calcium [Mass/Vol] 8.9 mg/dL Normal 8.4-10.2 [facility] Comment on above: Performed By: #### P REG #### [facility] [address] [place] [address] Dr. Katrin Ceja Chloride [Moles/Vol] 100 mmol/L Normal 98-107 [facility] Comment on above: Performed By: #### P REG #### [facility] [address] [place] [address] Dr. Katrin Ceja CO2 [Moles/Vol] 21.1 mmol/L Critically low 22.0-30.0 [facility] Comment on above: Performed By: #### P REG #### [facility] [address] [place] [address] Dr. Katrin Ceja Creatinine [Mass/Vol] 0.78 mg/dL Normal 0.52-1.04 [facility] Comment on above: Performed By: #### P REG #### [facility] [address] [place] [address] Dr. Katrin Ceja EGFR-AF WALLISIAN >60 Normal >=60 [facility] Comment on above: Performed By: #### P REG #### [facility] [address] [address] [address] Katrin Ceja EGFR-NON AF WALLISIAN >60 Normal >=60 [facility] Comment on above: Performed By: #### P REG #### [facility] [address] [place] [address] Dr. Katrin Ceja Glucose [Mass/Vol] 97 mg/dL Normal 74-106 [facility] Comment on above: Performed By: #### P REG #### [facility] [address] [address] [address] Katrin Ceja Potassium [Moles/Vol] 4.2 mmol/L Normal 3.4-5.0 [facility] Comment on above: Performed By: #### P REG #### [facility] [address] [address] [address] Katrin Ceja Sodium [Moles/Vol] 134 mmol/L Critically low 137-145 [facility] Comment on above: Performed By: #### P REG #### [facility] [address] [place] [address] Dr. Katrin Ceja Urea nitrogen [Mass/Vol] 6.0 mg/dL Critically low 7.0-17.0 [facility] Comment on above: Performed By: #### P REG #### [facility] [address] [place] [address] Dr. Katrin Ceja Urea nitrogen/Creatinine [Mass ratio] 7.7 mg/mg Normal [facility] Comment on above: Performed By: #### P REG #### [facility] [address] [place] [address] Dr. Katrin Ceja CBC AUTO DIFFon 04-29-2021 BASO # 0.1 103/ul Normal 0.0-0.1 [facility] Comment on above: Performed By: #### L IPID, CMP #### [facility] [address] [place] [address] Dr. Katrin Ceja Basophils/100 WBC (Bld) 0.4 % Normal 0.2-2.0 [facility] Comment on above: Performed By: #### L IPID, CMP #### [facility] [address] [place] [address] Dr. Katrin Ceja EO # 0.2 103/ul Normal 0.0-0.7 [facility] Comment on above: Performed By: #### L IPID, CMP #### [facility] [address] [place] [address] Dr. Katrin Ceja Eosinophils/100 WBC (Bld) 1.7 % Normal 0.9-7.0 [facility] Comment on above: Performed By: #### L IPID, CMP #### [facility] [address] [place] [address] Dr. Katrin Ceja Erythrocyte distribution width (RBC) [Ratio] 12.9 % Normal 11.0-15.0 [facility] Comment on above: Performed By: #### L IPID, CMP #### [facility] [address] [place] [address] Dr. Katrin Ceja Hematocrit (Bld) [Volume fraction] 39.0 % Normal 36.0-48.0 [facility] Comment on above: Performed By: #### L IPID, CMP #### [facility] [address] [place] [address] Dr. Katrin Ceja Hemoglobin (Bld) [Mass/Vol] 12.9 g/dL Normal 12.0-16.0 [facility] Comment on above: Performed By: #### L IPID, CMP #### [facility] [address] [place] [address] Dr. Katrin Ceja IG # 0.08 10e3/ul Critically high 0.00-0.03 [facility] Comment on above: Performed By: #### L IPID, CMP #### [facility] [address] [place] [address] Dr. Katrin Ceja IG % 0.6 % Critically high 0.0-0.5 [facility] Comment on above: Performed By: #### L IPID, CMP #### [facility] [address] [place] [address] Dr. Katrin Ceja LYMPH # 3.2 103/ul Normal 1.2-3.8 [facility] Comment on above: Performed By: #### L IPID, CMP #### [facility] [address] [place] [address] Dr. Katrin Ceja Lymphocytes/100 WBC (Bld) 24.4 % Normal 20.5-60.0 [facility] Comment on above: Performed By: #### L IPID, CMP #### [facility] [address] [place] [address] Dr. Katrin Ceja MANUAL DIFF REQ NO Normal [facility] Comment on above: Performed By: #### L IPID, CMP #### [facility] [address] [place] [address] Dr. Katrin Ceja MCH (RBC) [Entitic mass] 29.1 pg Normal 26.7-34.0 [facility] Comment on above: Performed By: #### L IPID, CMP #### [facility] [address] [place] [address] Dr. Katrin Ceja MCHC (RBC) [Mass/Vol] 33.1 g/dL Normal 29.9-35.2 [facility] Comment on above: Performed By: #### L IPID, CMP #### [facility] [address] [place] [address] Dr. Katrin Ceja MCV (RBC) [Entitic vol] 88.0 fL Normal 81.0-99.0 [facility] Comment on above: Performed By: #### L IPID, CMP #### [facility] [address] [place] [address] Dr. Katrin Ceja MONO # 1.2 103/ul Critically high 0.3-0.8 [facility] Comment on above: Performed By: #### L IPID, CMP #### [facility] [address] [place] [address] Dr. Katrin Ceja Monocytes/100 WBC (Bld) 9.2 % Normal 1.7-12.0 [facility] Comment on above: Performed By: #### L IPID, CMP #### [facility] [address] [place] [address] Dr. Katrin Ceja NEUT # 8.3 103/ul Critically high 1.4-6.5 [facility] Comment on above: Performed By: #### L IPID, CMP #### [facility] [address] [place] [address] Dr. Katrin Ceja Neutrophils/100 WBC (Bld) 63.7 % Normal 43.0-75.0 [facility] Comment on above: Performed By: #### L IPID, CMP #### [facility] [address] [address] [address] Katrin Ceja Platelet mean volume (Bld) [Entitic vol] 9.2 fL Critically low 9.5-13.5 [facility] Comment on above: Performed By: #### L IPID, CMP #### [facility] [address] [address] [address] Katrin Ceja PLT 384 103/ul Normal 150-450 [facility] Comment on above: Performed By: #### L IPID, CMP #### [facility] [address] [address] [address] Katrin Ceja RBC 4.43 106/ul Normal 4.20-5.40 [facility] Comment on above: Performed By: #### L IPID, CMP #### [facility] [address] [place] [address] Dr. Katrin Ceja WBC 13.1 103/ul Critically high 4.0-11.0 [facility] Comment on above: Performed By: #### L IPID, CMP #### [facility] [address] [place] [address] ABD/PELV W CONon [...] by: Lorenzo LAN Date: 2021-04-29 02:49 Normal [facility] LACTATE/LACTIC ACIDon 2020 Lactate [Moles/Vol] 1.2 mmol/L Normal 0.7-2.0 [facility] Comment on above: Performed By: #### C BC #### [facility] [address] [place] [address] Dr. Katrin Ceja PROF 14(COMP METB)on 021 Albumin [Mass/Vol] 3.4 g/dL Critically low 3.5-5.0 [facility] Comment on above: Performed By: #### C BC #### [facility] [address] [place] [address] Dr. Katrin Ceja Albumin/Globulin [Mass ratio] 0.7 {ratio} Normal [facility] Comment on above: Performed By: #### C BC #### [facility] [address] [place] [address] Dr. Katrin Ceja ALP [Catalytic activity/Vol] 359 U/L Critically high 38-126 [facility] Comment on above: Performed By: #### C BC #### [facility] [address] [place] [address] Dr. Katrin Ceja ALT [Catalytic activity/Vol] 193 U/L Critically high 9-52 [facility] Comment on above: Performed By: #### C BC #### [facility] [address] [place] [address] Dr. Katrin Ceja Anion gap [Moles/Vol] 13.3 mmol/L Normal [facility] Comment on above: Performed By: #### C BC #### [facility] [address] [address] [address] Katrin Ceja AST [Catalytic activity/Vol] 115 U/L Critically high 14-36 [facility] Comment on above: Performed By: #### C BC #### [facility] [address] [place] [address] Dr. Katrin Ceja Bilirubin [Mass/Vol] 0.5 mg/dL Normal 0.2-1.3 [facility] Comment on above: Performed By: #### C BC #### [facility] [address] [place] [address] Dr. Katrin Ceja Calcium [Mass/Vol] 9.5 mg/dL Normal 8.4-10.2 [facility] Comment on above: Performed By: #### C BC #### [facility] [address] [place] [address] Dr. Katrin Ceja Chloride [Moles/Vol] 101 mmol/L Normal 98-107 [facility] Comment on above: Performed By: #### C BC #### [facility] [address] [place] [address] Dr. Katrin Ceja CO2 [Moles/Vol] 23.7 mmol/L Normal 22.0-30.0 [facility] Comment on above: Performed By: #### C BC #### [facility] [address] [place] [address] Dr. Katrin Ceja Creatinine [Mass/Vol] 0.83 mg/dL Normal 0.52-1.04 [facility] Comment on above: Performed By: #### C BC #### [facility] [address] [place] [address] Dr. Katrin Ceja EGFR-AF WALLISIAN >60 Normal >=60 [facility] Comment on above: Performed By: #### C BC #### [facility] [address] [address] [address] Katrin Ceja EGFR-NON AF WALLISIAN >60 Normal >=60 [facility] Comment on above: Performed By: #### C BC #### [facility] [address] [address] [address] Katrin Ceja Globulin (S) [Mass/Vol] 5.1 g/dL Normal [facility] Comment on above: Performed By: #### C BC #### [facility] [address] [address] [address] Katrin Ceja Glucose [Mass/Vol] 102 mg/dL Normal 74-106 [facility] Comment on above: Performed By: #### C BC #### [facility] [address] [address] [address] Katrin Ceaj Potassium [Moles/Vol] 4.0 mmol/L Normal 3.4-5.0 [facility] Comment on above: Performed By: #### C BC #### [facility] [address] [address] [address] Katrin Ceja Protein [Mass/Vol] 8.5 g/dL Critically high 6.1-8.2 [facility] Comment on above: Performed By: #### C BC #### [facility] [address] [address] [address] Katrin Ceja Sodium [Moles/Vol] 134 mmol/L Critically low 137-145 [facility] Comment on above: Performed By: #### C BC #### [facility] [address] [address] [address] Katrin Ceja Urea nitrogen [Mass/Vol] 6.0 mg/dL Critically low 7.0-17.0 [facility] Comment on above: Performed By: #### C BC #### [facility] [address] [address] [address] Katrin Ceja Urea nitrogen/Creatinine [Mass ratio] 7.2 mg/mg Normal [facility] Comment on above: Performed By: #### C BC #### [facility] [address] [place], [place] [address] Dr. Katrin Ceja XR CHEST 1 Von 04-29-2021 XR CHEST 1 V CHEST X RAY, SINGLE VIEW CLINICAL INFORMATION: Chest pain. COMPARISONS: Chest x-ray dated 08/12/2020. FINDINGS: Basilar airspace disease which may represent atelectasis versus infection. No pleural effusions or pneumothorax. No overt pulmonary edema. Cardiomediastinal silhouette within normal limits. IMPRESSION: 1. Basilar airspace disease which may represent atelectasis versus infection. Electronically authenticated by: HILDA GU Date: 2021-04-28 23:45 Normal [facility] Acetaminophen (Tylenol) Leve thi 03-22-2019 Acetaminophen [Mass/Vol] <10 Normal 10.0-30.0 [facility] Comment on above: Performed By: #### 1 4581-3, 14051-5, 91041-4, 37097-3b0, 91532-8, 14962-8 #### [facility] [address] [place], [place] Alcohol (Ethanol) Levelon Ethanol [Mass/Vol] mg/dL Normal 0.00-0.00 [facility] Comment on above: Performed By: #### 1 4581-3, 02867-3, 54728-7, 07495-6a4, 37664-7, 61207-1 #### [facility] [address] [place], [place] CBC with Differentialon Basophils (Bld) [#/Vol] 0.10 thou/mcL Normal 0.00-0.20 [facility] Comment on above: Performed By: #### 5 7021-8 #### [facility] [address] [place], [place] Basophils/100 WBC (Bld) 0.7 % Normal 0.0-2.0 [facility] Comment on above: Performed By: #### 5 7021-8 #### [facility] [address] [place], [place] Eosinophils (Bld) [#/Vol] 0.40 thou/mcL Normal 0.00-0.70 [facility] Comment on above: Performed By: #### 5 7021-8 #### [facility] [address] [place], [place] Eosinophils/100 WBC (Bld) 3.7 % Normal 0.0-7.0 [facility] Comment on above: Performed By: #### 5 7021-8 #### [facility] [address] [place], [place] Erythrocyte distribution width (RBC) [Entitic vol] 12.6 % Normal 11.0-14.8 [facility] Comment on above: Performed By: #### 7021-8 #### [address] Hematocrit (Bld) [Volume fraction] 38.5 % Normal 35.0-45.0 [facility] Comment on above: Performed By: #### 7021-8 #### [address] Hemoglobin (Bld) [Mass/Vol] 13.3 g/dL Normal 12.0-16.0 [facility] Comment on above: Performed By: #### 7021-8 #### [address] Lymphocytes (Bld) [#/Vol] 3.10 thou/mcL Normal 1.00-4.80 [facility] Comment on above: Performed By: #### 5 7021-8 #### [address] Lymphocytes/100 WBC (Bld) 30.1 % Normal 22.0-44.0 [facility] Comment on above: Performed By: #### 5 7021-8 #### [facility] [address] [place] [address] MCH (RBC) [Entitic mass] 30.8 Picograms Normal 27.0-34.0 [facility] Comment on above: Performed By: #### 5 7021-8 #### [facility] [address] [place] [address] MCHC (RBC) [Mass/Vol] 34.7 g/dL Normal 32.0-36.0 [facility] Comment on above: Performed By: #### 5 7021-8 #### [facility] [address] [place], [place] MCV (RBC) [Entitic vol] 88.8 fL Normal 80.0-97.0 [facility] Comment on above: Performed By: #### 5 7021-8 #### [address] Monocytes (Bld) [#/Vol] 1.10 thou/mcL High 0.00-0.90 [facility] Comment on above: Performed By: #### 5 7021-8 #### [address] Monocytes/100 WBC (Bld) 10.4 % Normal 0.0-12.0 [facility] Comment on above: Performed By: #### 7021-8 #### [address] Neutrophils (Bld) [#/Vol] 5.60 thou/mcL Normal 1.80-7.70 [facility] Comment on above: Performed By: #### 5 7021-8 #### [address] Neutrophils/100 WBC (Bld) 55.1 % Normal 40.0-70.0 [facility] Comment on above: Performed By: #### 5 7021-8 #### [facility] [address] [place] [address] Platelet mean volume (Bld) [Entitic vol] 7.5 fL Normal 6.2-12.1 [facility] Comment on above: Performed By: #### 5 7021-8 #### [facility] [address] [place], [place] Platelets (Bld) [#/Vol] 280 thou/mcL Normal 142-424 [facility] Comment on above: Performed By: #### 5 7021-8 #### [facility] [address] [place], [place] RBC (Bld) [#/Vol] 4.33 million/mcL Normal 3.80-5.[address] [facility] Comment on above: Performed By: #### 5 7021-8 #### [facility] [address] [place], [place] WBC (Bld) [#/Vol] 10.2 thou/mcL Normal 4.6-10.2 [facility] Comment on above: Performed By: #### 5 7021-8 #### [facility] [address] [place], [place] Comprehensive Metabolic Pane thi 03-22-2019 Albumin [Mass/Vol] 4.2 g/dL Normal 3.5-4.8 [facility] Comment on above: Performed By: #### 1 4581-3, 76792-3, 72386-3, 12304-7m8, 30044-5, 00986-4 #### [facility] [address] [place], [place] ALP [Catalytic activity/Vol] 96 Units/L High 32-91 [facility] Comment on above: Performed By: #### 1 4581-3, 74203-7, 77752-8, 10062-9c9, 67628-9, 71848-4 #### [address] [place], [place] ALT [Catalytic activity/Vol] 25 Units/L Normal 14-63 [facility] Comment on above: Performed By: #### 1 4581-3, 26810-2, 78063-8, 97369-2f3, 26439-0, 74390-1 #### [facility] [address] [place], [place] Anion gap [Moles/Vol] 9.0 mmol/L Normal 6.0-18.0 [facility] Comment on above: Performed By: #### 1 4581-3, 67851-0, 02617-2, 57869-6a7, 49923-0, 35598-5 #### [facility] [address] [place], [place] AST [Catalytic activity/Vol] 24 Units/L Normal 15-41 [facility] Comment on above: Performed By: #### 1 4581-3, 81397-5, 32216-1, 28151-8v7, 32908-8, 77974-0 #### [facility] [address] [place], [place] Bilirubin [Mass/Vol] 0.5 mg/dL Normal 0.3-1.2 [facility] Comment on above: Performed By: #### 1 4581-3, 84897-7, 03344-6, 46731-9v1, 22736-2, 71070-7 #### [facility] [address] [place], [place] Calcium [Mass/Vol] 8.9 mg/dL Normal 8.9-10.3 [facility] Comment on above: Performed By: #### 1 4581-3, 25296-1, 20245-7, 53419-9m9, 83881-9, 42106-5 #### [facility] [address] [place], [place] Chloride [Moles/Vol] 107 mmol/L Normal 98-107 [facility] Comment on above: Performed By: #### 1 4581-3, 49030-0, 56346-4, 74956-7t7, 54840-3, 84094-7 #### [address] [place], [place] CO2 [Moles/Vol] 23 mmol/L Normal 22-32 [facility] Comment on above: Performed By: #### 1 4581-3, 71429-8, 72204-9, 48265-7b4, 53464-5, 37064-8 #### [facility] [address] [place], [place] Creatinine [Mass/Vol] 0.68 mg/dL Normal 0.60-1.30 [facility] Comment on above: Performed By: #### 1 4581-3, 46759-7, 72561-5, 31363-0o0, 27926-2, 49090-6 #### [facility] [address] [place], [place] Glucose [Mass/Vol] 90 mg/dL Normal 70-99 [facility] Comment on above: Result Comment: U pdated ADA Reference Range A normal fasting glucose concentration is less than 100 mg/dL. An impaired fasting glucose concentration is 100-125 mg/dL. A provisional diagnosis of diabetes mellitus can be made when a fasting glucose concentration is greater than 125 mg/dL. Performed By: #### 1 4581-3, 05946-2, 86279-3, 37305-2y4, 80490-6, 14972-1 #### [facility] [address] [place], [place] Potassium [Moles/Vol] 3.4 mmol/L Low 3.6-5.1 [facility] Comment on above: Performed By: #### 1 4581-3, 99762-5, 11745-2, 42761-8s5, 52786-0, 11980-1 #### [facility] [address] [place], [place] Protein [Mass/Vol] 7.4 g/dL Normal 6.1-7.9 [facility] Comment on above: Performed By: #### 1 4581-3, 27355-3, 39112-3, 79874-3j8, 41284-4, 40664-6 #### [facility] [address] [place], [place] Sodium [Moles/Vol] 139 mmol/L Normal 136-145 [facility] Comment on above: Performed By: #### 1 4581-3, 64710-1, 20810-9, 87067-3m6, 71031-2, 00264-8 #### [facility] [address] [place], [place] Urea nitrogen (BldV) [Mass/Vol] 17 mg/dL Normal 8-20 [facility] Comment on above: Performed By: #### 1 4581-3, 57232-4, 37046-5, 31859-5f2, 75265-6, 35904-3 #### [facility] [address] [place], [place] Drug Abuse Screen 8 Urineon 03-22-2019 Barbiturates Screen Ql (U) Negative Normal [facility] Comment on above: Performed By: #### 1 2286-1 #### [facility] [address] [place], [place] Amphetamines Ql (U) Positive Abnormal [facility] Comment on above: Result Comment: Conf irmatory testing available upon request. Performed By: #### 1 2286-1 #### [facility] [address] [place], [place] Benzodiazepines cutoff Screen (U) [Mass/Vol] Negative Normal [facility] Comment on above: Performed By: #### 1 2286-1 #### [address] Cocaine Ql (U) Positive Abnormal [facility] Comment on above: Result Comment: Conf irmatory testing available upon request. Performed By: #### 1 2286-1 #### [facility] [address] [place], [place] Interpretation and review of laboratory results Negative Normal [facility] Comment on above: Performed By: #### 1 2286-1 #### [facility] [address] [place], [place] Methadone Screen Ql (U) Negative Normal NEGATIVE-N EGATIVE [facility] Comment on above: Performed By: #### 1 2286-1 #### [facility] [address] [place] [address] Opiates Screen Ql (U) Negative Normal [facility] Comment on above: Result Comment: INTE RPRETATION [...] ONLY. Performed By: #### 1 2286-1 #### [facility] [address] [place], [place] Tetrahydrocannabinol Screen Ql (U) Positive Abnormal [facility] Comment on above: Result Comment: Conf irmatory testing available upon request. Performed By: #### 1 2286-1 #### [facility] [address] [place], [place] ED Pat Eduon 03-22-2019 ED Pat Edu [address] [address] Emergency Department Discharge Instructions JENNIFER ENGLE , Please provide this information to your Primary Care/Specialist Name : JENNIFER ENGLE Current Date : 03/22/2019 19:32:22 : 1995 Primary Care Physician : Physician, Radha PCP Diagnosis: Follow-Up Instructions: JENNIFER ENGLE has [...] Servicios de Emergencia Name JENNIFER ENGLE MRN ([facility])-[id number] PLEASE READ THE FOLLOWING REGARDING YOUR MEDICATIONS [...] doses are changed, or new medications (including kser-isd-jznexcy products) are added. If you have any [...] UNTIL YOU TALK TO YOUR DOCTOR None [address] [address] Emergency Department Discharge Instructions Name: JENNIFER ENGLE Current Date: 03/22/2019 19:32:22 : 1995 Primary Physician: Physician, No PCP We would like to thank you for choosing [facility] for your emergency medical needs. We examined [...] and the health of those around you. [facility] offers many resources to help with smoking cessation. Call the [place] Tobacco Quit Line at 3-349-YLKH-NOW ( ). High blood pressure: Your screening [...] deadly infections. Discuss this with your child's beauty school instructor, or Public Health Department. Your family practice doctor can determine if you need pneumonia or flu vaccine. The [facility] Department can be reached at . Substance Abuse Program: Concerns with addiction to alcohol, benzodiazepines (Ativan or Xanax) and Opiates (Heroin, Percocet, OxyContin, Methadone or Fentanyl)? [facility] offers an inpatient Substance Abuse Program to help treat the symptoms associated with medical detoxification of addictive substances. The new program offers care for non- adults (18 and older) looking to break the chain to addictive chemicals. The Substance Abuse Program is a voluntary inpatient admission and it starts with a pre-screening phone call to a health social work professor. During the call, goals and objectives for recovery and how the patient will transition to outpatient care will be established. Please call [phone] to get help today. Domestic Violence: If you are a victim of domestic violence (physical, verbal, or emotional), you are not alone. Discuss this with your physician or a friend and call the [place] Domestic Violence Hotline or [place] Domestic Violence Hotline for assistance and support. [...] physician, call the Physician Referral Line at (719) 244-MIOO (6110). Suicide Hotline: Your mental and emotional well-being is important. If you are in a mental health crisis or are having thoughts of suicide, please call the nationwide suicide hotline, anytime day or night, at 2-797-061-JFIZ (1699). Community Director Federal: You may be contacted by your local fire department for a follow up visit from a community forex trader. The community forex trader can help with a home safety check; follow up care, and general home care management. Pharmacy Information: Below is a list of 24 hour pharmacies that we are aware of. We suggest that you call the specific pharmacy for their hours before traveling to a location. Hours may vary on holidays. [facility] Pharm[facility] [address] [place], [place] [phone] [place] [address] [phone] [place] [address] [phone] [address] [phone] [place], [place] [phone] [address] [address] [phone] [place], [place] [phone] Take all medications as directed. If you need prescription assistance, contact the following agencies: ?? Partnership for Prescription Assistance at or www.Vamox.org ?? [place] at or www.TrademarkFlyrHackSurfer.org ?? www.[employer]ato[employer].Securly is a site with many valuable coupons Patient Education Materials JENNIFER ENGLE has been given the following patient education materials: <><><><><><><><><><><><>< ><><><><><><><><><><><><> <> Patient Visit Summary Signature JENNIFER ENGLE has been given the following list of patient education materials, prescriptions and follow-up instructions: IONIEL MARIAH E, have received the above patient education materials/instructions and have verbalized understanding: Date Time Patient Signature Date Time Provider Signature [facility] GFRaaon 03-22-2019 GFR/1.73 sq M predicted among blacks MDRD (S/P/Bld) [Vol rate/Area] mL/min/{1.73_m2} Normal [facility] Comment on above: Result Comment: The MDRD equation has not been validated for those over 70 years, women, patients with serious co-morbid conditions, or with extremes of body size, muscle mass of nutritional status. Performed By: #### 1 4581-3, 41593-6, 09602-2, 66933-6m1, 12905-9, 07681-2 #### [facility] [address] [place], [place] GFRbbon 03-22-2019 GFR/1.73 sq M predicted among non-blacks MDRD (S/P/Bld) [Vol rate/Area] mL/min/{1.73_m2} Normal [facility] Comment on above: Performed By: #### 1 4581-3, 28669-9, 82501-2, 11557-5c7, 14774-4, 77237-3 #### [facility] [address] [place], [place] Test Urineon 03-22 HCG ( test) Ql (U) Negative Normal [facility] Comment on above: Performed By: #### 2 106-3 #### [facility], [facility] [place], [place] Salicylate Levelon 9 Salicylates [Mass/Vol] mg/dL Normal 2.8-30.0 Mo [facility] Comment on above: Performed By: #### 1 4581-3, 66635-3, 75949-2, 33563-7h8, 82979-2, 60344-0 #### [facility] [address] [place], [place] Medication Managementon 10-0 Medication Management [id number] F Normal [facility] ED Clinical Summaryon 2017 ED Clinical Summary [facility] - Emergency [address] [place] [address] ed Clinical SummaryPERSON INFORMATIONName: JENNIFER ENGLE Age: 22 Years Sex: FEMALEDOB: [birth year] MRN: Acct#:Visit Reason: Dental pain; Dental pain; DENTAL PAIN Arrival: 04/11/18 20:21:00 Discharge: 04/11/18 20:55:00LOS: 000 00:34 Check In: 04/11/18 20:21:00 Checkout:04/11/18 20:55:00[address] [facility] [address]MWG: MAC DENNISPROVIDER INFORMATIONProvider Role Assigned UnassignedAlistair Max MD ED Provider 04/11/18 20:21:45GlMary Jane west ED Nurse 04/11/18 20:35:44VITALS INFORMATIONVital Sign Triage [...] Diagnoses: Dental caries; Pain, dentalAuthor: Alistair Max MDBasic InformationTime seen: Date & time 04/11/18 20:29:00.Dental caries, dental painHistory of Present Zmwhgym75-qrch-oxp white female presents to the emergency room [...] her poor dental state..Impression and PlanDiagnosisDental caries (HFH23-PO K02.9, Discharge, Medical)Pain, dental (CAZ15-LH K08.89, Discharge, Medical)PlanCondition: Improved, Stable.Disposition: Discharged: to home.Prescriptions: Launch prescriptionsPharmacy:tra MADol 50 mg oral tablet (Prescribe): 50 mg = 1 tab(s), PO, q4hr, PRN: as needed for pain, 12 tab(s), 0 Refill(s)amoxicillin 500 mg oral capsule (Prescribe): 1,000 mg = 2 cap(s), PO, BID, 40 cap(s), 0 Refill(s).Patient was given the following educational materials: Dental Pain, Eyxa-pa-Mbqa, Dental Caries, Adult, Cvfi-rw-Xdza, Dental Caries, Adult, Cqlw-vc-Bxsp, Dental Pain, Fzge-cf-Fomv.Follow up with: SOLOMON WATTS Within 3 to 5 days.Counseled: Patient, Regarding diagnosis, Regarding treatment plan, Regarding prescription, Patient indicated understanding of instructions.DISCHARGE INFORMATION:Discharge Disposition: HomeDischarge Location: HomePATIENT EDUCATION INFORMATIONInstructions: Dental Caries, Adult, Vkfl-sj-Dmom; Dental Pain, Owal-gh-QzrqHeende-Up:Wit h: Address: When:SOLOMON WATTS [address] [place] [id number] [facility] (1) Within 3 to 5 daysDIAGNOSIS:Dental caries; Dental pain; Pain, dentalPatient Understands: Yes - Patient/family/caregiver verbalizes understanding of instructions givenComment: [facility] ED Note - Physicianon 2017 ED Note - Physician Patient: DOMINIC ENGLE : 22 years Sex: FEMALE : [birth year]Associated Diagnoses: Dental caries; Pain, dentalAuthor: Alistair Max MDBasipramod InformationTime seen: Date & time 04/11/18 20:29:00.Dental caries, dental painHistory of Present Bevkhev24-sffn-onc white female presents to the emergency room [...] her poor dental state..Impression and PlanDiagnosisDental caries (STD77-VU K02.9, Discharge, Medical)Pain, dental (KAE07-IT K08.89, Discharge, Medical)PlanCondition: Improved, Stable.Disposition: Discharged: to home.Prescriptions: Launch prescriptionsPharmacy:tra MADol 50 mg oral tablet (Prescribe): 50 mg = 1 tab(s), PO, q4hr, PRN: as needed for pain, 12 tab(s), 0 Refill(s)amoxicillin 500 mg oral capsule (Prescribe): 1,000 mg = 2 cap(s), PO, BID, 40 cap(s), 0 Refill(s).Patient was given the following educational materials: Dental Pain, Fylc-mj-Bzeq, Dental Caries, Adult, Djui-sh-Ohhj, Dental Caries, Adult, Cify-uw-Htut, Dental Pain, Wsxh-lt-Xfin.Follow up with: SOLOMON WATTS Within 3 to 5 days.Counseled: Patient, Regarding diagnosis, Regarding treatment plan, Regarding prescription, Patient indicated understanding of instructions.[Cristianoa diana Signed on: 04/11/2018 20:42 EDT] Alistair Salomon MD[Verified on: 04/11/2018 20:42 EDT] Alistair Salomon MD [facility] ED Patient Education Noteon 04-11-2018 ED Patient [...] mouth and teeth. This keeps them healthy.? Telferner your teeth 2 times a day. Use toothpaste with fluoride in it.? Floss your teeth once a day.? If your dentist prescribed an antibiotic medicine to treat an infection, take it as told. Do not stop taking the antibiotic even if your condition gets better.? Keep all follow-up visits as told by your dentist. This is important. This includes all cleanings.Preventing dental caries? Telferner your teeth every morning and night. Use [...] Reviewed: 03/17/2017Kenny Interactive Patient Education ? 2017 [employer].Dental PainDental pain may be caused by many [...] Released: 12/17/2008 Document Revised: 12/06/2016 Document Reviewed: 06/27/2015Jerievier Interactive Patient Education ? 2018 [employer]. Normal [facility] ED Patient Summaryon 018 ED Patient Summary [facility] - Emergency [address] [place], [place] [address] pATIENT DISCHARGE INSTRUCTIONSPatient InformationName: JENNIFER ENGLE Age: 22 YearsDate of : [birth year]MRN: [id number] Visit: Dental pain; Dental pain; DENTAL PAINArrival Time: 04/11/18 20:21:00Phone: [facility] Physician: SOLOMON WATTSAttdevon Physician: Alistair Max MDComment:Visit Diagnosis:Diagnoses This Visit Dental caries (K02.9) Dental pain (K08.8) Dental pain ([id number]) Dental pain ([id number]) Pain, dental (K08.89)If you received any narcotics, [...] sign any legal documentsWith: Address: When:SOLOMON WATTS [facility] [address] [place], [place] [address] Business (1) Within 3 to 5 daysMedication Information:The exam and treatment you received today in the [facility] Emergency Department were for an urgent problem and are not intended as complete care. It is important for you to follow up with a doctor, nurse practitioner, or physician?s licensed investment sales assistant for ongoing care. If your symptoms [...] number so we can reach you if necessary.[facility] Emergency Department has provided you with a complete list of medications post discharge. Please inform your assistant teacher primary/provider of your visit and for further instruction [...] mouth and teeth. This keeps them healthy.? Telferner your teeth 2 times a day. Use toothpaste with fluoride in it.? Floss your teeth once a day.? If your dentist prescribed an antibiotic medicine to treat an infection, take it as told. Do not stop taking the antibiotic even if your condition gets better.? Keep all follow-up visits as told by your dentist. This is important. This includes all cleanings.Preventing dental caries? Telferner your teeth every morning and night. Use [...] Reviewed: 03/17/2017Kenny Interactive Patient Education ? 2017 [employer]Dental PainDental pain may be caused by [...] Reviewed: 06/27/2015Kenny Interactive Patient Education ? 2018 [employer]. Viruses or BacteriaWhat?s got you sick?Antibiotics only [...] Antibiotics Jazmin.[place] Department of Health and Human ServicesGenesis Hospitalers for Disease Control and Prevention March 2014 [facility] Vital Signs Date Time Vital Sign Value Performing Clinician Facility 05-07-2023 13:15-0400 Body height 167.64 cm Key Arnettarney Other [facility] Other 05-07-2023 13:15-0400 Body mass index (BMI) [Ratio] 37.54 kg/m2 Key Jorge Other [facility] Other 05-07-2023 13:15-0400 Body temperature 97.8 [degF] Key Jorge Other [facility] Other 05-07-2023 13:15-0400 Body weight 105.51 kg Key Arnettarney Other [facility] Other 05-07-2023 13:15-0400 Respiratory rate 18 /min Key Jorge Other [facility] Other 05-07-2023 13:15-0400 SaO2% (BldA) [Mass fraction] 98 % Key Patel Other [facility] Other 11-08-2022 13:50-0400 Body height 167.64 cm Chase Saldana Other [facility] Other 11-08-2022 13:50-0400 Body mass index (BMI) [Ratio] 35.51 kg/m2 Chase Saldana Other [facility] Other 11-08-2022 13:50-0400 Body weight 99.79 kg Chase Saldana Other [facility] Other 04-26-2022 11:55-0400 Body height 167.64 cm Autumn Marley Other [facility] Other 04-26-2022 11:55-0400 Body mass index (BMI) [Ratio] 35.02 kg/m2 Autumn Restrepoault Other [facility] Other 04-26-2022 11:55-0400 Body temperature 97.7 [degF] Autumn Restrepoault Other [facility] Other 04-26-2022 11:55-0400 Body weight 98.43 kg Autumn Restrepoault Other [facility] Other 04-26-2022 11:55-0400 Diastolic blood pressure 82 mm[Hg] Autumn Restrepoault Other [facility] Other 04-26-2022 11:55-0400 Respiratory rate 18 /min Autumn Marley Other [facility] Other 04-26-2022 11:55-0400 SaO2% (BldA) [Mass fraction] 98 % Autumn Restrepoault Other [facility] Other 04-26-2022 11:55-0400 Systolic blood pressure 122 mm[Hg] Autumn Restrepoault Other [facility] Other 04-23-2022 10:50-0400 Body height 167.64 cm Autumn Restrepoault Other [facility] Other 04-23-2022 10:50-0400 Body mass index (BMI) [Ratio] 33.89 kg/m2 Autumn Marley Other [facility] Other 04-23-2022 10:50-0400 Body temperature 97.8 [degF] Autumn Marley Other [facility] Other 04-23-2022 10:50-0400 Body weight 95.26 kg Autumn Marley Other [facility] Other 04-23-2022 10:50-0400 Respiratory rate 18 /min Autumn Marley Other [facility] Other 04-23-2022 10:50-0400 SaO2% (BldA) [Mass fraction] 98 % Autumn Marley Other [facility] Other 03-27-2022 10:15-0400 Body height 167.64 cm Deb Simon Other [facility] Other 03-27-2022 10:15-0400 Body mass index (BMI) [Ratio] 34.38 kg/m2 Deb Simon Other [facility] Other 03-27-2022 10:15-0400 Body temperature 97.4 [degF] Deb Simon Other [facility] Other 03-27-2022 10:15-0400 Body weight 96.62 kg Deb Simon Other [facility] Other 03-27-2022 10:15-0400 Respiratory rate 18 /min Deb Simon Other [facility] Other 03-27-2022 10:15-0400 SaO2% (BldA) [Mass fraction] 96 % Deb Simon Other [facility] Other 04-05-2021 16:10-0400 Body height 167.64 cm Lucinda Salgado Other [facility] Other 04-05-2021 16:10-0400 Body mass index (BMI) [Ratio] 33.25 kg/m2 Lucinda Hectormond Other [facility] Other 04-05-2021 16:10-0400 Body temperature 97.3 [degF] Lucinda Salgado Other [facility] Other 04-05-2021 16:10-0400 Body weight 93.44 kg Lucinda Hectormond Other [facility] Other 04-05-2021 16:10-0400 Diastolic blood pressure 74 mm[Hg] Lucinda Naomi Other [facility] Other 04-05-2021 16:10-0400 Respiratory rate 18 /min Lucinda Hectormond Other [facility] Other 04-05-2021 16:10-0400 SaO2% (BldA) [Mass fraction] 99 %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
--- NOTE | 2023-09-14 20:22 | ED.DENTAL1 ---
HPI - Dental/Oral General Chief complaint: Dental/Oral Stated complaint: DENTAL PAIN/JAW PAIN Time Seen by Provider: 09/14/23 20:06 Source: patient Mode of arrival: walk-in Limitations: no limitations History of Present Illness HPI Narrative: Ana M is a 28-year-old female who has been seen in this emergency department multiple times for dental pain in the past, presents tonight for increasing pain over the last several days to multiple teeth in the left jaw. She complains of partial avulsion/fracture of tooth #17. She states her dentist wants to pull all of her teeth, they have been proceeding slowly with this process. She has not had any fevers, drainage, difficulty swallowing. No concern for . She has been using ibuprofen but states it upsets her stomach. Related Data Previous Rx's Medication Instructions Recorded clindamycin HCl 150 mg capsule 300 mg (2 x 150 mg) PO Q6H 10 days 09/14/23 #80 caps ketorolac 10 mg tablet 10 mg PO TID PRN pain #10 tabs 09/14/23 ondansetron 4 mg disintegrating 4 mg PO Q6H PRN nausea and 09/14/23 tablet vomiting #12 tabs Allergies Allergy/AdvReac Type Severity Reaction Status Date / Time Penicillins Allergy Mild Hives Verified 09/14/23 20:13 latex Allergy Unknown Verified 09/14/23 20:13 ibuprofen AdvReac Mild Verified 09/14/23 20:13 Sulfa (Sulfonamide AdvReac Mild Hives Verified 09/14/23 20:13 Antibiotics) Review of Systems ROS Constitutional Denies: fever or chills Eyes Denies: change in vision Ears, nose, mouth, and throat Denies: throat pain or nasal congestion Cardiovascular Denies: chest pain Respiratory Denies: shortness of breath or cough Gastrointestinal Denies: nausea or vomiting Genitourinary Denies: painful urination Musculoskeletal Denies: back pain Integumentary/Breast Denies: rash Neurological Reports: headache Hematologic/Lymphatic Denies: easy bruising or easy bleeding PFSH PFSH Social History Smoking status: Former smoker Exam Narrative Exam Narrative: Gen.: Awake, alert, in no distress Head: Normocephalic, atraumatic ENT: Moist mucous membranes, No facial swelling noted. Multiple dental caries with partial avulsion of tooth #17, no redness or swelling under the tongue. Airway widely open and patent, uvula midline, no abscess noted. Respiratory: No respiratory distress Extremities: Moves extremities equally Psych: Normal mood and affect Neuro: No focal neuro deficit Skin: Warm, dry, intact Constitutional Vital Signs, click to edit/add: Last Vital Signs Temp 97.7 F 09/14/23 20:10 Pulse 67 09/14/23 20:10 Resp 22 09/14/23 20:10 BP 138/102 H 09/14/23 20:10 Pulse Ox 98 09/14/23 20:10 O2 Del Method Room Air 09/14/23 20:10 Course Vital Signs Vital signs: Vital Signs Temperature 97.7 F 09/14/23 20:10 Pulse Rate 67 09/14/23 20:10 Respiratory Rate 22 09/14/23 20:10 Blood Pressure 138/102 H 09/14/23 20:10 Pulse Oximetry 98 09/14/23 20:10 Oxygen Delivery Method Room Air 09/14/23 20:10 Temperature 97.7 F 09/14/23 20:10 Pulse Rate 67 09/14/23 20:10 Respiratory Rate 09/14/23 20:10 Blood Pressure 138/102 H 09/14/23 20:10 Pulse Oximetry 98 09/14/23 20:10 Oxygen Delivery Method Room Air 09/14/23 20:10 MDM - Dental/Oral MDM Narrative Medical decision making narrative: Patient treated with topical dental analgesia and Toradol in the ER with clindamycin for home. Follow-up with dentist and return to the ER if symptoms change or worsen Medical Records Attestation: I reviewed the patient's medical records. Discharge Plan Discharge Chief Complaint: Dental/Oral Clinical Impression: Dental caries, Toothache Patient Disposition: Home, Self-Care Time of Disposition Decision: 20:20 Condition: Good Prescriptions / Home Meds: New clindamycin HCl 150 mg capsule 300 mg PO Q6H 10 Days Qty: 80 0RF ketorolac 10 mg tablet 10 mg PO TID PRN (Reason: pain) Qty: 10 0RF ondansetron 4 mg tablet,disintegrating 4 mg PO Q6H PRN (Reason: nausea and vomiting) Qty: 12 0RF Instructions: Toothache (ED) Referrals: Shaikh Langley MD [Primary Care Provider] - 1 week Discharge Date/Time: 09/14/23 20:40 Stand Alone Forms: Portal Instructions
[2023-09-14] MEDS: BENZOCAINE 30 ML, lidocaine HCL 15 ML MM (20:36)
[2023-09-14] MEDS: CLINDAMYCIN HCL 150 MG CAPSULE 300 MG PO (20:38)
== END 2023-09-14 20:40 | disposition home or self-care (01) ==
PROVIDERS: Emergency Provider Emergency Medicine; PCP Internal Medicine
DX: K02.9 Dental caries, unspecified (principal); K08.89 Other specified disorders of teeth and supporting structures; Z87.891 Personal history of nicotine dependence
CPT/HCPCS: 99283

== ENCOUNTER 2023-10-13 17:53 | Emergency (ER) | payer MEDICAID, SELFPAY ==
[2023-10-13 18:08] VITALS: BP 133/96; PULSE 113; TEMP 36.7; O2SAT 98; BMI 37.0
--- OUTSIDE RECORDS SUMMARY | 2023-10-13 18:28 | XMS_ITS | CCD ---
Author Organization [facility] Care Team Providers Care Multimedia Teacher Name Role Phone Stalter, Alistair Unavailable Unavailable [...] GRANT Consulting Unavailable DANNI QUINONES Consulting Unavailable KARAN PALACIOS Attending Unavailable SUZANNE, KARAN Admitting Unavailable TIO PALACIOSYL Consulting Unavailable FAWWAD, COLÓN H Primary Care Unavailable RIVER RODGERS Consulting Unavailable SHRUTI, DR PATRICK Goodson Consulting Unavailable SHRUTI, DR PATRICK Goodson Attending Unavailable SHRUIT, DR PATRICK Goodson Admitting Unavailable FAWWAD, COLÓN H Primary Care Unavailable DUARTE, DR NICOL Goodson Consulting Unavailable MODESTA NAVA Consulting Unavailable KARAN PALACIOS Attending Unavailable KARAN PALACIOS Admitting Unavailable SUZANNE, KARAN Consulting Unavailable FAWWAD, COLÓN H Primary Care Unavailable RIVER RODGERS Consulting Unavailable SHRUTI, DR PATRICK Goodson Consulting Unavailable SHRUTI, DR PATRICK Goodson Attending Unavailable SHURTI, DR PATRICK Goodson Admitting Unavailable FAWWAD, COLÓN H Primary Care Unavailable SHRUTI, DR PATRICK Goodson Consulting Unavailable SHRUTI, DR PATRICK Goodson Attending Unavailable SHRUTI, DR PATRICK Goodson Admitting Unavailable FAWWAD, COLÓN H Primary Care Unavailable CAPRI ISAIAH Consulting Unavailable FAWWAD, COLÓN H Primary Care Unavailable MARIA ISABEL BANKS Attending Unavailable MARIA ISABEL BANKS Admitting Unavailable MARKER, DR MEDRANO Consulting Unavailable MARIA ISABEL BANKS Consulting Unavailable LACEY, HILDA Consulting Unavailable FAWWAD, COLÓN H Primary [...] Admitting Unavailable MARKER, DR MEDRANO Consulting Unavailable GERI LASSITER Consulting Unavailable Autumn Marley Unavailable Chase Saldana Unavailable MIREILLE Saldana Attending Provider FAWWAD, COLÓN Primary Care Unavailable Key Patel Unavailable Chase Saldana Admitting Unavailable Chase Saldana Attending Unavailable NON STAFF Primary Care Unavailable Gerald Wagner Attending Unavailab Gerald Lazo Admitting Unavailab le FAWWAD, COLÓN Primary Care Unavailable FAWWAD, COLÓN Primary Care Unavailable MARTELL OTERO Attending Unavailable MARTELL OTERO Referring Unavailable [facility], [facility] Primary Care Unavailable MARTELL OTERO Attending Unavailable MARTELL OTERO Referring Unavailable [facility], [facility] Primary Care Unavailable MARTELL OTERO Attending Unavailable MARTELL OTERO Referring Unavailable [facility], [facility] Primary Care Unavailable [facility], [facility] Primary Care Unavailable [facility], [facility] Primary Care Unavailable CHETAN HEBERT Attending Unavailable Allergies Allergy Classification Reported Allergen(s) Allergy Type Date of Onset Reaction(s) Facility (5 sources) ibuprofen; Translations: [ibuprofen] Drug Allergy 11-25-19 Nausea [facility] Repository (1 source) Latex; Translations: [Latex Allergy] Propensity to adverse reactions to drug (disorder) [facility]ository (1 source) Sulfonamides (Antibiotic); Translations: [sulfa drugs] Propensity to adverse reactions to drug (disorder) [facility]ository (6 sources) Lactase Drug Allergy [facility] [employer] Other (8 sources) Latex; Translations: [LATEX] Drug allergy 08-24-19 anaphylaxis [facility] (6 sources) Sulfacetamide Drug Allergy [facility] [employer] Other (2 sources) Lactose Drug Allergy [facility] Repository (2 sources) Latex Drug allergy (disorder) 12-30-19 13 [facility] Repository (2 sources) Penicillin Drug Allergy [facility] Repository (1 source) Propylthiouracil Drug Allergy [facility] Repository (2 sources) Sulfonamides (Antibiotic) Drug allergy (disorder) 12-30-19 13 [facility] Repository (3 sources) Sulfonamides (Antibiotic); Translations: [Sulfa (Sulfonamide Antibiotics)] Allergy to substance 11-25-19 [facility] (1 source) Lactase Drug Allergy 05-07-20 [facility] Repository (1 source) Latex Drug allergy (disorder) 05-07-20 [facility] Repository (1 source) Sulfacetamide Drug Allergy 05-07-20 [facility] Repository (1 source) Adhesive agent; Translations: [ADHESIVE] Propensity to adverse reactions to drug (disorder) 01-09-20 [facility] Repository (1 source) Clindamycin; Translations: [CLINDAMYCIN] Drug Allergy 06-07-20 [facility] Repository (1 source) Desvenlafaxine; Translations: [DESVENLAFAXINE SUCCINATE] Drug Allergy 11-29-19 23 [facility] Repository (1 source) Escitalopram; Translations: [ESCITALOPRAM OXALATE] Drug Allergy 09-21-19 [facility] Repository (1 source) lamoTRIgine; Translations: [LAMOTRIGINE] Drug Allergy 01-13-20 18 [facility] Repository (1 source) natural latex rubber; Translations: [LATEX, NATURAL RUBBER] Propensity to adverse reactions to drug (disorder) 04-24-20 [facility] Repository (1 source) Penicillins; Translations: [PENICILLINS] Propensity to adverse reactions to drug (disorder) 12-05-19 [facility] Repository Medications Current Medications Medication Drug Class(es) Dates Sig (Normalized) Sig (Original) [id number] 200 actuat albuterol 0.09 mg/actuat metered dose [...] 1.5 mg/ml oral solution (2 sources) Uncompetitive I-ciqpsk-X-aspartate Receptor Antagonist, Sigma-1 Agonist Herbster DM 7.5-7.5 MG/5ML 10 ml Orally every [...] day(s) Mar, Not-Taking take 1 capsule by [facility] every twelve hours Clindamycin HCl 300 MG 1 capsule Orally every 12 hrs Active Doxepin (2 sources) Tricyclic Antidepressant Doxepin HCl Not-Taking Doxepin HCl Acti ve FLUoxetine (8 sources) Serotonin Reuptake Inhibitor Flu oxetine Not-Taking PROzac Not-Takin g Fluoxetine Activ e PROzac Active fluticasone propionate 0.05 mg/actuat metered dose nasal spray (2 sources) Corticosteroid Start: 09-01-2023 take 2 spray(s) nasal route once daily [...] 07-23-2021 Chronic Other aftercare (1 source) 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; Translations: [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] Onset: 03-23-2022 Episodic Other gastrointestinal disorders (4 sources) Constipation, unspecified; Translations: [CONSTIPATION UNSPECIFIED] Onset: 03-22-2022 Episodic Other injuries and conditions due to external causes (1 source) Foreign body in left ear, initial encounter; Translations: [Foreign body in left ear, initial encounter] Onset: 10-10-2023 Episodic Other injuries and conditions due to external causes (1 source) Foreign body in ear Onset: 10-10-2023 Episodic Other lower respiratory disease (4 sources) [...] TRACT] Onset: 03-23-2022 Episodic Sprains and strains (4 sources) Sprain of unspecified ligament of left [...] OF COVID-19] Onset: 02-09-2022 Unclassified (1 source) Ankle Injury Onset: 09-22-2023 Unclassified (1 source) Cold Like Symptoms Onset: [...] Test Name Value Interpretation Reference Range Facility HCG ( test) Ql (U)o n 09-22-2023 Beta HCG ( test) Ql (U) Negative Normal NEG [facility] Comment on above: Performed By: #### 2 106-3 #### [facility] ([id number]) [address] [facility] [place] [address] XR FOOT LT MIN 3 VWSon 09-21 XR FOOT LT MIN 3 VWS XR FOOT LT MIN 3 VW S XR FOOT LT MIN 3 VWS: 09/21/2023 11:45 PM CLINICAL INDICATION: Tenderness to left midfoot COMPARISON: 06/20/2021 TECHNIQUE: AP, oblique, lateral views of the left foot were obtained. FINDINGS: Joint spaces and bony alignment of the left foot is maintained without evidence of acute fracture or dislocation. Soft tissues are unremarkable. Achilles tendon is intact. IMPRESSION: No acute fracture or dislocation of the left foot. Finalized by Ghada Loya MD on 09/22/2023 12:07 AM Normal [facility] XR SPINE LUMBAR 2 OR 3 VWSon 09-22-2023 XR SPINE LUMBAR 2 OR 3 VWS XR SPINE LUMBAR 2 OR 3 VWS CLINICAL INFORMATION: Evaluate for fracture TECHNIQUE: Lumbo-sacral spine radiographs performed. Three images acquired. COMPARISON: 02/03/2022 FINDINGS: Vertebral body heights and alignment of the lumbar spine are maintained without evidence of acute compression or subluxation. SI joints are symmetric. Cholecystectomy clips cluster within the right upper quadrant, the remainder of the abdomen is unremarkable. IMPRESSION: * No acute osseous abnormality of the lumbar spine. Finalized by Ghada Loya MD on 09/22/2023 12:10 AM Normal [facility] XR TIBIA FIBULA LT MIN 2 VWS on 09-22-2023 XR TIBIA FIBULA LT MIN 2 VWS XR TIBIA FIBULA LT MIN 2 VWS XR TIBIA FIBULA LT MIN 2 VWS: 09/21/2023 11:45 PM CLINICAL INDICATION: Pain throughout distal tip/fib COMPARISON: None. TECHNIQUE: AP and lateral views of the left tibia and fibula were obtained. FINDINGS: The left tibia and fibula are intact without evidence of acute fracture or dislocation. Soft tissues are unremarkable, the partially visualized left knee joint and left ankle joint are grossly intact. IMPRESSION: No acute fracture or dislocation of the left tibia or fibula Finalized by Ghada Loya MD on 09/22/2023 12:09 AM [facility] SARS/FLU A+B/RSV [facility] SARS/FLU A+B/RSV by NAAT/Molecular FLU A [...] operators who are performing tests using either GeneXIdeaForest DX or GeneZady Infinity systems and is limited to laboratories that [...] repeat. Fact Sheet for Healthcare Providers: https://www.fda.gov/media /101793/download Fact Sheet for Patients: https://www.fda.gov/media /459264/download Normal [facility] Comment on above: Performed By: #### C OVFLR #### [facility] ([id number]) [address] [place] [address], [place] [address] Provider Letteron 02-25-2023 Provider Letter (Inserted Image. Swapna ble to display) February 25, 2023 JENNIFER CARMEN [address] [place] [id number] : 1995 Dear Jennifer , We have been trying to reach you with no success. It is important that you return our call regarding your referral to our office by Jennifer upon receiving this letter. Also, at the time of your call, please provide us with your current information. Thank you for your prompt attention to this matter. Sincerely, [facility] [phone] Normal [facility] Physician Referralon 023 Physician Referral [id number] Normal [facility] Urinalysis - AUTOMATEDon Appearance (U) cloudy [employer] Other Bilirubin Ql (U) Negative [employer] Other Color (U) yellow [employer] Other Glucose Ql (U) Negative [employer] Other Hemoglobin Ql (U) Trace-intact [employer] Other Ketones Ql (U) Negative [employer] Other Leukocyte esterase Test strip Ql (U) Trace [employer] Other Nitrite Ql (U) Negative [employer] Other pH (U) 6.0 [pH] [employer] Other Protein Ql (U) Negative [employer] Other Specific gravity (U) [Rel density] <=1.005 [employer] Other Urobilinogen (U) [Mass/Vol] 0.2 mg/dL [employer] Other Urinalysis - AUTOMATED No rt morphCARD Other Urine Cultureon 11-08-2022 Bacteria identified Cx Nom (U) 20,000 colonies/ml mixed bacterial skin contaminants 2 Days PERFORMED BY: [place] [address] PATHOLOGIST PIPELINE SYSTEMS OPERATOR MONTY CANO M.D. [facility] Comment on above: Performed By: #### C UU #### [facility] [address] [place] [address] Quick Strepon 04-26-2022 S. pyogenes Org specific cx Ql (Throat) Negative [employer] Other Quick Strep [employer] Other SARS-CoV-2 (COVID-19) RNA NA A+probe Ql (Resp)on 04-23-2022 SARS-CoV-2 (COVID-19) RNA EMMANUELLE+probe Ql (Unsp spec) Negative [employer] Other Covid-19 PCR (CVDTBH)on 03-16 SARS-CoV-2 (COVID-19) RNA EMMANUELLE+probe Ql (Unsp spec) Not detected Normal NOT DETECTED [facility] Comment on above: Result Comment: This test is not yet approved or cleared by the [place] FDA. When there are no FDA-approved or cleared tests available, and other criteria are met, FDA can make tests available under an emergency access mechanism called an Emergency Use Authorization (EUA). The EUA for this test is supported by the [place] of Health and Human Service's (HHS's) declaration [...] SARS-CoV-2. Performed By: #### C BC #### [facility] [address] [place] [address] Dr. Katrin Ceja SARS-CoV-2 (COVID-19) RNA NA A+probe Ql (Resp)on 03-27-2022 SARS-CoV-2 (COVID-19) RNA EMMANUELLE+probe Ql (Unsp spec) Negative [employer] Other CBC AUTO DIFFon 03-22-2022 BASO # 0.0 103/ul Normal 0.0-0.1 [facility] Comment on above: Performed By: #### L IPID, CMP #### [facility] [address] [place] [address] Dr. Katrin Ceja Basophils/100 WBC (Bld) 0.3 % Normal 0.2-2.0 [facility] Comment on above: Performed By: #### L IPID, CMP #### [facility] [address] [place] [address] Dr. Katrin Ceja EO # 0.2 103/ul Normal 0.0-0.7 [facility] Comment on above: Performed By: #### L IPID, CMP #### [facility] [address] [place] [address] Dr. Katrin Ceja Eosinophils/100 WBC (Bld) 2.2 % Normal 0.9-7.0 [facility] Comment on above: Performed By: #### L IPID, CMP #### [facility] [address] [place] [address] Dr. Katrin Ceja Erythrocyte distribution width (RBC) [Ratio] 11.9 % Normal 11.0-15.0 [facility] Comment on above: Performed By: #### L IPID, CMP #### [facility] [address] [place] [address] Dr. Katrin Ceja Hematocrit (Bld) [Volume fraction] 36.4 % Normal 36.0-48.0 [facility] Comment on above: Performed By: #### L IPID, CMP #### [facility] [address] [place] [address] Dr. Katrin Ceja Hemoglobin (Bld) [Mass/Vol] 12.6 g/dL Normal 12.0-16.0 [facility] Comment on above: Performed By: #### L IPID, CMP #### [facility] [address] [place] [address] Dr. Katrin Ceja IG # 0.03 10e3/ul Normal 0.00-0.03 [facility] Comment on above: Performed By: #### L IPID, CMP #### [facility] [address] [place] [address] Dr. Katrin Ceja IG % 0.3 % Normal 0.0-0.5 [facility] Comment on above: Performed By: #### L IPID, CMP #### [facility] [address] [place] [address] Dr. Katrin Ceja LYMPH # 3.5 103/ul Normal 1.2-3.8 [facility] Comment on above: Performed By: #### L IPID, CMP #### [facility] [address] [place] [address] Dr. Katrin Ceja Lymphocytes/100 WBC (Bld) 33.1 % Normal 20.5-60.0 [facility] Comment on above: Performed By: #### L IPID, CMP #### [facility] [address] [place] [address] Dr. Katrin Ceja MANUAL DIFF REQ NO Normal [facility] Comment on above: Performed By: #### L IPID, CMP #### [facility] [address] [place] [address] Dr. Katrin Ceja MCH (RBC) [Entitic mass] 29.9 pg Normal 26.7-34.0 [facility] Comment on above: Performed By: #### L IPID, CMP #### [facility] [address] [place] [address] Dr. Katrin Ceja MCHC (RBC) [Mass/Vol] 34.6 g/dL Normal 29.9-35.2 [facility] Comment on above: Performed By: #### L IPID, CMP #### [facility] [address] [place] [address] Dr. Katrin Ceja MCV (RBC) [Entitic vol] 86.5 fL Normal 81.0-99.0 [facility] Comment on above: Performed By: #### L IPID, CMP #### [facility] [address] [place] [address] Dr. Katrin Ceja MONO # 0.7 103/ul Normal 0.3-0.8 [facility] Comment on above: Performed By: #### L IPID, CMP #### [facility] [address] [place] [address] Dr. Katrin Ceja Monocytes/100 WBC (Bld) 6.5 % Normal 1.7-12.0 [facility] Comment on above: Performed By: #### L IPID, CMP #### [facility] [address] [place] [address] Dr. Katrin Ceja NEUT # 6.0 103/ul Normal 1.4-6.5 [facility] Comment on above: Performed By: #### L IPID, CMP #### [facility] [address] [place] [address] Dr. Katrin Ceja Neutrophils/100 WBC (Bld) 57.6 % Normal 43.0-75.0 [facility] Comment on above: Performed By: #### L IPID, CMP #### [facility] [address] [place] [address] Dr. Katrin Ceja Platelet mean volume (Bld) [Entitic vol] 8.7 fL Critically low 9.5-13.5 [facility] Comment on above: Performed By: #### L IPID, CMP #### [facility] [address] [place] [address] Dr. Katrin Ceja PLT 282 103/ul Normal 150-450 [facility] Comment on above: Performed By: #### L IPID, CMP #### [facility] [address] [place] [address] Dr. Katrin Ceja RBC 4.21 106/ul Normal 4.20-5.40 [facility] Comment on above: Performed By: #### L IPID, CMP #### [facility] [address] [place] [address] Dr. Katrin Ceja WBC 10.5 103/ul Normal 4.0-11.0 [facility] Comment on above: Performed By: #### L IPID, CMP #### [facility] [address] [place] [address] Dr. Katrin Ceja ER URINE PROFILEon 2 Bilirubin Ql (U) Negative Normal NEGATIVE [facility] Comment on above: Performed By: #### L IPID, CMP #### [facility] [address] [place] [address] Dr. Katrin Ceja Clarity (U) CLEAR Normal CLEAR [facility] Comment on above: Performed By: #### L IPID, CMP #### [facility] [address] [place] [address] Dr. Katrin Ceja Color (U) LT. YELLOW Normal YELLOW [facility] Comment on above: Performed By: #### L IPID, CMP #### [facility] [address] [place] [address] Dr. Katrin Ceja ERUAHD A micrscopic examina tion will be performed if indicated. Normal [facility] Comment on above: Performed By: #### L IPID, CMP #### [facility] [address] [place] [address] Dr. Katrin Ceja Glucose Ql (U) Negative Normal NEGATIVE [facility] Comment on above: Performed By: #### L IPID, CMP #### [facility] [address] [address] [address] Katrin Ceja Hemoglobin Ql (U) Negative Normal NEGATIVE [facility] Comment on above: Performed By: #### L IPID, CMP #### [facility] [address] [address] [address] Katrin Ceja Ketones Ql (U) Negative Normal NEGATIVE [facility] Comment on above: Performed By: #### L IPID, CMP #### [facility] [address] [place] [address] Dr. Katrin Ceja LEUKOCYTES Negative Normal NEGATIVE [facility] Comment on above: Performed By: #### L IPID, CMP #### [facility] [address] [place] [address] Dr. Katrin Ceja Nitrite Ql (U) Negative Normal NEGATIVE [facility] Comment on above: Performed By: #### L IPID, CMP #### [facility] [address] [place] [address] Dr. Katrin Ceja pH (U) 6.0 [pH] Normal 5-9 [facility] Comment on above: Performed By: #### L IPID, CMP #### [facility] [address] [place] [address] Dr. Katrin Ceja SPEC GRAVITY 1.015 Normal 1.005-<=1. 025 [facility] Comment on above: Performed By: #### L IPID, CMP #### [facility] [address] [place] [address] Dr. Katrin Ceja UA PROTEIN Negative Normal NEGATIVE/ TRACE [facility] Comment on above: Performed By: #### L IPID, CMP #### [facility] [address] [address] [address] Katrin Ceja UR MICRO IND NOT INDICATED Normal [facility] Comment on above: Performed By: #### L IPID, CMP #### [facility] [address] [place] [address] Dr. Katrin Ceja Urobilinogen Qn (U) 0.2 {Jeannie'U}/dL Normal 0.2 - 1. 0 [facility] Comment on above: Performed By: #### L IPID, CMP #### [facility] [address] [address] [address] Katrin Ceja LIPASEon 03-22-2022 Lipase [Catalytic activity/Vol] 84.0 U/L Normal 73.0-393.0 [facility] Comment on above: Performed By: #### H STROPN, CMP, LIPA #### [facility] [address] [address] [address] Katrin Ceja URon 03-22-2022 , QUAL Negative Normal NEGATIVE [facility] Comment on above: Performed By: #### L IPID, CMP #### [facility] [address] [place] [address] Dr. Katrin Ceja PROF 14(COMP METB)on 022 Albumin [Mass/Vol] 3.2 g/dL Critically low 3.4-5.0 [facility] Comment on above: Performed By: #### H STROPN, CMP, LIPA #### [facility] [address] [address] [address] Katrin Ceja Albumin/Globulin [Mass ratio] 0.8 {ratio} Normal [facility] Comment on above: Performed By: #### H STROPN, CMP, LIPA #### [facility] [address] [place] [address] Dr. Katrin Ceja ALP [Catalytic activity/Vol] 189 U/L Critically high 46-116 [facility] Comment on above: Performed By: #### H STROPN, CMP, LIPA #### [facility] [address] [address] [address] Katrin Ceja ALT [Catalytic activity/Vol] 31 U/L Normal 14-59 [facility] Comment on above: Performed By: #### H STROPN, CMP, LIPA #### [facility] [address] [address] [address] Katrin Ceja Anion gap [Moles/Vol] 9.9 mmol/L Normal [facility] Comment on above: Performed By: #### H STROPN, CMP, LIPA #### [facility] [address] [address] [address] Katrin Ceja AST [Catalytic activity/Vol] 17 U/L Normal 15-37 [facility] Comment on above: Performed By: #### H STROPN, CMP, LIPA #### [facility] [address] [address] [address] Katrin Ceja Bilirubin [Mass/Vol] 0.2 mg/dL Normal 0.2-1.0 [facility] Comment on above: Performed By: #### H STROPN, CMP, LIPA #### [facility] [address] [address] [address] Katrin Ceja Calcium [Mass/Vol] 8.7 mg/dL Normal 8.5-10.1 [facility] Comment on above: Performed By: #### H STROPN, CMP, LIPA #### [facility] [address] [address] [address] Katrin Ceja Chloride [Moles/Vol] 103 mmol/L Normal 98-107 [facility] Comment on above: Performed By: #### H STROPN, CMP, LIPA #### [facility] [address] [address] [address] Katrin Ceja CO2 [Moles/Vol] 25.4 mmol/L Normal 21.0-32.0 [facility] Comment on above: Performed By: #### H STROPN, CMP, LIPA #### [facility] [facility] [address] [address] [address] Katrin Ceja Creatinine [Mass/Vol] 0.71 mg/dL Normal 0.55-1.02 [facility] Comment on above: Performed By: #### H STROPN, CMP, LIPA #### [facility] [address] [place] [address] Dr. Katrin Ceja EGFR-AF PORTUGUESE >60 Normal >=60 [facility] Comment on above: Performed By: #### H STROPN, CMP, LIPA #### [facility] [address] [address] [address] Katrin Ceja EGFR-NON AF PORTUGUESE >60 Normal >=60 [facility] Comment on above: Performed By: #### H STROPN, CMP, LIPA #### [facility] [address] [address] [address] Katrin Ceja Globulin (S) [Mass/Vol] 4.0 g/dL Normal [facility] Comment on above: Performed By: #### H STROPN, CMP, LIPA #### [facility] [address] [address] [address] Katrin Ceja Glucose [Mass/Vol] 106 mg/dL Normal 74-106 [facility] Comment on above: Performed By: #### H STROPN, CMP, LIPA #### [facility] [address] [place] [address] Dr. Katrin Ceja Potassium [Moles/Vol] 3.3 mmol/L Critically low 3.5-5.1 [facility] Comment on above: Performed By: #### H STROPN, CMP, LIPA #### [facility] [address] [address] [address] Katrin Ceja Protein [Mass/Vol] 7.2 g/dL Normal 6.4-8.2 [facility] Comment on above: Performed By: #### H STROPN, CMP, LIPA #### [facility] [address] [place] [address] Dr. Katrin Ceja Sodium [Moles/Vol] 135 mmol/L Critically low 136-145 [facility] Comment on above: Performed By: #### H STROPN, CMP, LIPA #### [facility] [address] [place] [address] Dr. Katrin Ceja Urea nitrogen [Mass/Vol] 5.0 mg/dL Critically low 7.0-18.0 [facility] Comment on above: Performed By: #### H STROPN, CMP, LIPA #### [facility] [address] [place] [address] Dr. Katrin Ceja Urea nitrogen/Creatinine [Mass ratio] 7.0 mg/mg Normal [facility] Comment on above: Performed By: #### H STROPN, CMP, LIPA #### [facility] [address] [place], [place] [address] Dr. Katrin Ceja TROPONIN, HIGH SENSITIVITYon 03-22-2022 HSTROP <4.0 Normal 4.0-51.3 [facility] Comment on above: Result Comment: CUT- OFF POINTS HAVE BEEN ESTABLISHED BASED ON THE FOURTH UNIVERSAL DEFINITIONS OF MYOCARDIAL INFARCTION. THE UPPER REFERENCE LIMIT (URL) OF TROPONIN, DEFINED THE 99TH PERCENTILE OF cTnI DISTRIBUTION IN A REFERENCE POPULATION, HAS BEEN CONFIRMED THE DECISION THRESHOLD FOR MA DIAGNOSIS. Performed By: #### H STROPN, CMP, LIPA #### [facility] [address] [place], [place] [address] Dr. Katrin Ceja XR ABD FLAT UP_PA [...] GERI LASSITER Date: 2022-03-22 01:53 Normal [facility] XR ANKLE LT MIN 3 Von 2021 XR ANKLE LT MIN 3 V EXAM: XR ANKLE LT MA N 3 V HISTORY: Ankle pain COMPARISON: None. TECHNIQUE: 3 views FINDINGS: No osseous lesion, fracture, dislocation or subluxation. Joint spaces are normal. Old posttraumatic ossifications adjacent to the tip of the lateral malleolus. No visualized effusion. No visualized soft tissue edema. IMPRESSION: Normal x-rays Electronically authenticated by: DANNI QUINONES Date: 2022-03-09 19:32 Normal [facility] CBC AUTO DIFFon 02-08-2022 BASO # 0.0 103/ul Normal 0.0-0.1 [facility] Comment on above: Performed By: #### C BC #### [facility] [address] [place] [address] Dr. Katrin Ceja Basophils/100 WBC (Bld) 0.3 % Normal 0.2-2.0 [facility] Comment on above: Performed By: #### C BC #### [facility] [address] [place] [address] Dr. Katrin eCja EO # 0.3 103/ul Normal 0.0-0.7 [facility] Comment on above: Performed By: #### C BC #### [facility] [address] [place] [address] Dr. Katrin Ceja Eosinophils/100 WBC (Bld) 3.0 % Normal 0.9-7.0 [facility] Comment on above: Performed By: #### C BC #### [facility] [address] [place] [address] Dr. Katrin Ceja Erythrocyte distribution width (RBC) [Ratio] 12.2 % Normal 11.0-15.0 [facility] Comment on above: Performed By: #### C BC #### [facility] [address] [place] [address] Dr. Katrin Ceja Hematocrit (Bld) [Volume fraction] 33.8 % Critically low 36.0-48.0 [facility] Comment on above: Performed By: #### C BC #### [facility] [address] [place] [address] Dr. Katrin Ceja Hemoglobin (Bld) [Mass/Vol] 11.9 g/dL Critically low 12.0-16.0 [facility] Comment on above: Performed By: #### C BC #### [facility] [address] [place] [address] Dr. Katrin Ceja IG # 0.04 10e3/ul Critically high 0.00-0.03 [facility] Comment on above: Performed By: #### C BC #### [facility] [address] [place] [address] Dr. Katrin Ceja IG % 0.4 % Normal 0.0-0.5 [facility] Comment on above: Performed By: #### C BC #### [facility] [address] [place] [address] Dr. Katrin Ceja LYMPH # 3.0 103/ul Normal 1.2-3.8 [facility] Comment on above: Performed By: #### C BC #### [facility] [address] [place] [address] Dr. Katrin Ceja Lymphocytes/100 WBC (Bld) 28.4 % Normal 20.5-60.0 [facility] Comment on above: Performed By: #### C BC #### [facility] [address] [place] [address] Dr. Katrin Ceja MANUAL DIFF REQ NO Normal [facility] Comment on above: Performed By: #### C BC #### [facility] [address] [place] [address] Dr. Katrin Ceja MCH (RBC) [Entitic mass] 29.8 pg Normal 26.7-34.0 [facility] Comment on above: Performed By: #### C BC #### [facility] [address] [place] [address] Dr. Katrin Ceja MCHC (RBC) [Mass/Vol] 35.2 g/dL Normal 29.9-35.2 [facility] Comment on above: Performed By: #### C BC #### [facility] [address] [place] [address] Dr. Katrin Ceja MCV (RBC) [Entitic vol] 84.7 fL Normal 81.0-99.0 [facility] Comment on above: Performed By: #### C BC #### [facility] [address] [place] [address] Dr. Katrin Ceja MONO # 0.7 103/ul Normal 0.3-0.8 [facility] Comment on above: Performed By: #### C BC #### [facility] [address] [place] [address] Dr. Katrin Ceja Monocytes/100 WBC (Bld) 6.6 % Normal 1.7-12.0 [facility] Comment on above: Performed By: #### C BC #### [facility] [address] [address] [address] Katrin Ceja NEUT # 6.4 103/ul Normal 1.4-6.5 [facility] Comment on above: Performed By: #### C BC #### [facility] [address] [address] [address] Katrin Ceja Neutrophils/100 WBC (Bld) 61.3 % Normal 43.0-75.0 [facility] Comment on above: Performed By: #### C BC #### [facility] [address] [address] [address] Katrin Ceja Platelet mean volume (Bld) [Entitic vol] 8.9 fL Critically low 9.5-13.5 [facility] Comment on above: Performed By: #### C BC #### [facility] [address] [place] [address] Dr. Katrin Ceja PLT 299 103/ul Normal 150-450 [facility] Comment on above: Performed By: #### C BC #### [facility] [address] [place] [address] Dr. Katrin Ceja RBC 3.99 106/ul Critically low 4.20-5.40 [facility] Comment on above: Performed By: #### C BC #### [facility] [address] [place] [address] Dr. Katrin Ceja WBC 10.4 103/ul Normal 4.0-11.0 [facility] Comment on above: Performed By: #### C BC #### [facility] [address] [address] [address] Katrin Ceja D-DIMERon 02-08-2022 D-DIMER 0.59 mg/L FEU Normal <=0.59 [facility] Comment on above: Performed By: #### L IPID, CMP #### [facility] [address] [address] [address] Katrin Ceja D-DIMER COMMENTS SEE BELOW Normal [facility] Comment on above: Result Comment: Incr [...] Performed By: #### L IPID, CMP #### [facility] [address] [place] [address] Dr. Katrin Ceja PROF CHEM 8 (BAS METB)on Anion gap [Moles/Vol] 12.8 mmol/L Normal [facility] Comment on above: Performed By: #### C BC #### [facility] [address] [place] [address] Dr. Katrin Ceja Calcium [Mass/Vol] 8.7 mg/dL Normal 8.5-10.1 [facility] Comment on above: Performed By: #### C BC #### [facility] [address] [place] [address] Dr. Katrin Ceja Chloride [Moles/Vol] 102 mmol/L Normal 98-107 [facility] Comment on above: Performed By: #### C BC #### [facility] [address] [place] [address] Dr. Katrin Ceja CO2 [Moles/Vol] 25.9 mmol/L Normal 21.0-32.0 [facility] Comment on above: Performed By: #### C BC #### [facility] [address] [place] [address] Dr. Katrin Ceja Creatinine [Mass/Vol] 0.70 mg/dL Normal 0.55-1.02 [facility] Comment on above: Performed By: #### C BC #### [facility] [address] [place] [address] Dr. Katrin Ceja EGFR-AF PORTUGUESE >60 Normal >=60 [facility] Comment on above: Performed By: #### C BC #### [facility] [address] [place] [address] Dr. Katrin Ceja EGFR-NON AF PORTUGUESE >60 Normal >=60 [facility] Comment on above: Performed By: #### C BC #### [facility] [address] [place] [address] Dr. Katrin Ceja Glucose [Mass/Vol] 95 mg/dL Normal 74-106 [facility] Comment on above: Performed By: #### C BC #### [facility] [address] [place] [address] Dr. Katrin Ceja Potassium [Moles/Vol] 2.7 mmol/L Critically low 3.5-5.1 [facility] Comment on above: Result Comment: Test Repeated. Critical Value Verified Performed By: #### C BC #### [facility] [address] [place] [address] Dr. Katrin Ceja Sodium [Moles/Vol] 136 mmol/L Normal 136-145 [facility] Comment on above: Performed By: #### C BC #### [facility] [address] [place] [address] Dr. Katrin Ceja Urea nitrogen [Mass/Vol] 3.0 mg/dL Critically low 7.0-18.0 [facility] Comment on above: Performed By: #### C BC #### [facility] [address] [place] [address] Dr. Katrin Ceja Urea nitrogen/Creatinine [Mass ratio] 4.3 mg/mg Normal [facility] Comment on above: Performed By: #### C BC #### [facility] [address] [place] [address] Dr. Katrin Ceja XR CHEST 2 Von [...] by: RIVER SAID Date: 2022-02-08 04:19 Normal [facility] LIPID PROFILEon 12-18-2021 CHOL-HDL RATIO NORM SEE BELOW Normal [facility] Comment on above: Result Comment: 3.3 - 4.4 LOW RISK 4.4 - 7.1 AVERAGE RISK 7.1 - 11.0 MODERATE RISK >11.0 HIGH RISK Performed By: #### L IPID, LIVER #### [facility] [address] [address] [address] Katrin Ceja Cholesterol [Mass/Vol] 126 mg/dL Normal <=200 [facility] Comment on above: Performed By: #### L IPID, LIVER #### [facility] [address] [address] [address] Katrin Ceja Cholesterol in HDL [Mass/Vol] 31 mg/dL Critically low 40-60 [facility] Comment on above: Performed By: #### L IPID, LIVER #### [facility] [address] [place] [address] Dr. Katrin Ceja Cholesterol in LDL [Mass/Vol] 59.2 mg/dL Normal [facility] Comment on above: Performed By: #### L IPID, LIVER #### [facility] [address] [place] [address] Dr. Katrin Ceja Cholesterol.total/Chol esterol in HDL [Mass ratio] 4.1 {ratio} Normal [facility] Comment on above: Performed By: #### L IPID, LIVER #### [facility] [address] [place] [address] Dr. Katrin Ceja HDL NORMAL > or = 60 mg/dl - LO W CARDIOVASCULAR RISK <40 mg/dl - HIGH CARDIOVASCULAR RISK Normal [facility] Comment on above: Performed By: #### L IPID, LIVER #### [facility] [address] [place], [place] [id number] Dr. Katrin Ceja LDL CALC NORMAL SEE BELOW Normal [facility] Comment on above: Result Comment: <100 mg/dl OPTIMAL 100 - 129 mg/dl NEAR OR ABOVE OPTIMAL 130 - 159 mg/dl BORDERLINE HIGH 160 - 189 mg/dl HIGH >190 mg/dl VERY HIGH Performed By: #### L IPID, LIVER #### [facility] [address] [place] [address] Dr. Katrin Ceja Triglyceride [Mass/Vol] 179 mg/dL Critically high <=150 [facility] Comment on above: Performed By: #### L IPID, LIVER #### [facility] [address] [place] [address] Dr. Katrin Ceja VLDL CALC 35.8 mg/dL Normal [facility] Comment on above: Performed By: #### L IPID, LIVER #### [facility] [address] [place] [address] Dr. Katrin Ceja LIVER PROFILEon 12-18-2021 Albumin [Mass/Vol] 3.6 g/dL Normal 3.4-5.0 [facility] Comment on above: Performed By: #### L IPID, LIVER #### [facility] [address] [place] [address] Dr. Katrin Ceja Albumin/Globulin [Mass ratio] 0.8 {ratio} Normal [facility] Comment on above: Performed By: #### L IPID, LIVER #### [facility] [address] [place] [address] Dr. Katrin Ceja ALP [Catalytic activity/Vol] 196 U/L Critically high 46-116 [facility] Comment on above: Performed By: #### L IPID, LIVER #### [facility] [address] [place] [address] Dr. Katrin Ceja ALT [Catalytic activity/Vol] 51 U/L Normal 14-59 [facility] Comment on above: Performed By: #### L IPID, LIVER #### [facility] [address] [place] [address] Dr. Katrin Ceja AST [Catalytic activity/Vol] 22 U/L Normal 15-37 [facility] Comment on above: Performed By: #### L IPID, LIVER #### [facility] [address] [place] [address] Dr. Katrin Ceja BILI, CONJUGATED 0.1 mg/dL Normal 0.0-0.2 [facility] Comment on above: Performed By: #### L IPID, LIVER #### [facility] [address] [address] [address] Katrin Ceja Bilirubin [Mass/Vol] 0.4 mg/dL Normal 0.2-1.0 [facility] Comment on above: Performed By: #### L IPID, LIVER #### [facility] [address] [address] [address] Katrin Ceja Globulin (S) [Mass/Vol] 4.4 g/dL Normal [facility] Comment on above: Performed By: #### L IPID, LIVER #### [facility] [address] [address] [address] Katrin Ceja Protein [Mass/Vol] 8.0 g/dL Normal 6.4-8.2 [facility] Comment on above: Performed By: #### L IPID, LIVER #### [facility] [address] [place] [address] Dr. Katrin Ceja XR FOOT RT MIN [...] indicated. Electronically authenticated by: RIVER SAID Date: 2021-12-07 00:19 Normal [facility] PROF 14(COMP METB)on 022 Albumin [Mass/Vol] 3.6 g/dL Normal 3.4-5.0 [facility] Comment on above: Performed By: #### L IPID, CMP #### [facility] [address] [place] [address] Dr. Katrin Ceja Albumin/Globulin [Mass ratio] 0.8 {ratio} Normal [facility] Comment on above: Performed By: #### L IPID, CMP #### [facility] [address] [address] [address] Katrin Ceja ALP [Catalytic activity/Vol] 209 U/L Critically high 46-116 [facility] Comment on above: Performed By: #### L IPID, CMP #### [facility] [address] [address] [address] Katrin Ceja ALT [Catalytic activity/Vol] 65 U/L Critically high 14-59 [facility] Comment on above: Performed By: #### L IPID, CMP #### [facility] [address] [address] [address] Katrin Ceja Anion gap [Moles/Vol] 15.7 mmol/L Normal [facility] Comment on above: Performed By: #### L IPID, CMP #### [facility] [address] [address] [address] Katrin Ceja AST [Catalytic activity/Vol] 31 U/L Normal 15-37 [facility] Comment on above: Performed By: #### L IPID, CMP #### [facility] [address] [address] [address] Katrin Ceja Bilirubin [Mass/Vol] 0.2 mg/dL Normal 0.2-1.3 [facility] Comment on above: Performed By: #### L IPID, CMP #### [facility] [address] [address] [address] Katrin Ceja Calcium [Mass/Vol] 8.8 mg/dL Normal 8.5-10.1 [facility] Comment on above: Performed By: #### L IPID, CMP #### [facility] [address] [address] [address] Katrin Ceja Chloride [Moles/Vol] 105 mmol/L Normal 98-107 [facility] Comment on above: Performed By: #### L IPID, CMP #### [facility] [address] [address] [address] Katrin Ceja CO2 [Moles/Vol] 21.3 mmol/L Critically low 22.0-30.0 [facility] Comment on above: Performed By: #### L IPID, CMP #### [facility] [address] [address] [address] Katrin Ceja Creatinine [Mass/Vol] 0.72 mg/dL Normal 0.52-1.04 [facility] Comment on above: Performed By: #### L IPID, CMP #### [facility] [address] [address] [address] Katrin Ceja EGFR-AF PORTUGUESE >60 Normal >=60 [facility] Comment on above: Performed By: #### L IPID, CMP #### [facility] [address] [address] [address] Katrin Ceja EGFR-NON AF PORTUGUESE >60 Normal >=60 [facility] Comment on above: Performed By: #### L IPID, CMP #### [facility] [address] [address] [address] Katrin Ceja Globulin (S) [Mass/Vol] 4.3 g/dL Normal [facility] Comment on above: Performed By: #### L IPID, CMP #### [facility] [address] [address] [address] Katrin Ceja Glucose [Mass/Vol] 99 mg/dL Normal 74-106 [facility] Comment on above: Performed By: #### L IPID, CMP #### [facility] [address] [address] [address] Katrin Ceja Potassium [Moles/Vol] 4.0 mmol/L Normal 3.4-5.0 [facility] Comment on above: Performed By: #### L IPID, CMP #### [facility] [address] [address] [address] Katrin Ceja Protein [Mass/Vol] 7.9 g/dL Normal 6.1-8.2 [facility] Comment on above: Performed By: #### L IPID, CMP #### [facility] [address] [address] [address] Katrin Ceja Sodium [Moles/Vol] 138 mmol/L Normal 137-145 [facility] Comment on above: Performed By: #### L IPID, CMP #### [facility] [address] [address] [address] Katrin Ceja Urea nitrogen [Mass/Vol] 13.0 mg/dL Normal 7.0-18.0 [facility] Comment on above: Performed By: #### L IPID, CMP #### [facility] [address] [address] [address] Katrin Ceja Urea nitrogen/Creatinine [Mass ratio] 18.1 mg/mg Normal [facility] Comment on above: Performed By: #### L IPID, CMP #### [facility] [address] [address] [address] Katrin Ceja XR HUMERUS RT MIN 2 Von XR HUMERUS RT MIN 2 V EXAM: XR HUMERUS R T MIN 2 V HISTORY: Pain acute right arm pain following fall. COMPARISON: Right shoulder, 10/17/2021. TECHNIQUE: AP and lateral views of the right humerus. FINDINGS: No acute or intrinsic osseous, articular or soft tissue abnormality is seen. IMPRESSION: Unremarkable right humerus. Electronically authenticated by: MODESTA NAVA Date: 2021-10-17 01:46 Normal [facility] XR SHOULDER RT 2V or >on XR SHOULDER RT 2V or > EXAM: XR SHOULDER RT 2V or > HISTORY: Pain right arm pain following fall. COMPARISON: None. TECHNIQUE: Standard 3 views of the right shoulder. FINDINGS: No acute or intrinsic osseous, articular or soft tissue abnormality is seen. IMPRESSION: No acute findings. Electronically authenticated by: MODESTA NAVA Date: 2021-10-17 01:45 Normal [facility] XR WRIST RT MIN 3 Von 2021 XR WRIST RT MIN 3 V EXAM: XR WRIST RT MA N 3 V HISTORY: Pain acute right arm pain following fall. COMPARISON: None. TECHNIQUE: AP, oblique and lateral views of the right wrist. FINDINGS: No acute or intrinsic osseous, articular or soft tissue abnormality is seen. IMPRESSION: No acute right wrist findings. Electronically authenticated by: MODESTA NAVA Date: 2021-10-17 01:44 Normal [facility] AMYLASEon 09-18-2021 Amylase [Catalytic activity/Vol] 34 U/L Normal 31-110 [facility] Comment on above: Performed By: #### P REG #### [facility] [address] [place] [address] Dr. Katrin Ceja CBC AUTO DIFFon 09-18-2021 BASO # 0.0 103/ul Normal 0.0-0.1 [facility] Comment on above: Performed By: #### C BC #### [facility] [address] [place] [address] Dr. Katrin Ceja Basophils/100 WBC (Bld) 0.3 % Normal 0.2-2.0 [facility] Comment on above: Performed By: #### C BC #### [facility] [address] [place] [address] Dr. Katrin Ceja EO # 0.2 103/ul Normal 0.0-0.7 [facility] Comment on above: Performed By: #### C BC #### [facility] [address] [place] [address] Dr. Katrin Ceja Eosinophils/100 WBC (Bld) 2.4 % Normal 0.9-7.0 [facility] Comment on above: Performed By: #### C BC #### [facility] [address] [place], [place] [address] Dr. Katrin Ceja Erythrocyte distribution width (RBC) [Ratio] 12.5 % Normal 11.0-15.0 [facility] Comment on above: Performed By: #### C BC #### [facility] [address] [place] [address] Dr. Katrin Ceja Hematocrit (Bld) [Volume fraction] 37.4 % Normal 36.0-48.0 [facility] Comment on above: Performed By: #### C BC #### [facility] [address] [place] [address] Dr. Katrin Ceja Hemoglobin (Bld) [Mass/Vol] 12.3 g/dL Normal 12.0-16.0 [facility] Comment on above: Performed By: #### C BC #### [facility] [address] [place] [address] Dr. Katrin Ceja IG # 0.05 10e3/ul Critically high 0.00-0.03 [facility] Comment on above: Performed By: #### C BC #### [facility] [address] [place] [address] Dr. Katrin Ceja IG % 0.5 % Normal 0.0-0.5 [facility] Comment on above: Performed By: #### C BC #### [facility] [address] [place] [address] Dr. Katrin Ceja LYMPH # 3.1 103/ul Normal 1.2-3.8 [facility] Comment on above: Performed By: #### C BC #### [facility] [address] [place] [address] Dr. Katrin Ceja Lymphocytes/100 WBC (Bld) 31.7 % Normal 20.5-60.0 [facility] Comment on above: Performed By: #### C BC #### [facility] [address] [place] [address] Dr. Katrin Ceja MANUAL DIFF REQ NO Normal [facility] Comment on above: Performed By: #### C BC #### [facility] [address] [place] [address] Dr. Katrin Ceja MCH (RBC) [Entitic mass] 28.9 pg Normal 26.7-34.0 [facility] Comment on above: Performed By: #### C BC #### [facility] [address] [place] [address] Dr. Katrin Ceja MCHC (RBC) [Mass/Vol] 32.9 g/dL Normal 29.9-35.2 [facility] Comment on above: Performed By: #### C BC #### [facility] [address] [place] [address] Dr. Katrin Ceja MCV (RBC) [Entitic vol] 88.0 fL Normal 81.0-99.0 [facility] Comment on above: Performed By: #### C BC #### [facility] [address] [place] [address] Dr. Katrin Ceja MONO # 0.7 103/ul Normal 0.3-0.8 [facility] Comment on above: Performed By: #### C BC #### [facility] [address] [place] [address] Dr. Katrin Ceja Monocytes/100 WBC (Bld) 6.7 % Normal 1.7-12.0 [facility] Comment on above: Performed By: #### C BC #### [facility] [address] [place] [address] Dr. Katrin Ceja NEUT # 5.7 103/ul Normal 1.4-6.5 [facility] Comment on above: Performed By: #### C BC #### [facility] [address] [place] [address] Dr. Katrin Ceja Neutrophils/100 WBC (Bld) 58.4 % Normal 43.0-75.0 [facility] Comment on above: Performed By: #### C BC #### [facility] [address] [place] [address] Dr. Katrin Ceja Platelet mean volume (Bld) [Entitic vol] 8.8 fL Critically low 9.5-13.5 [facility] Comment on above: Performed By: #### C BC #### [facility] [address] [place] [address] Dr. Katrin Ceja PLT 265 103/ul Normal 150-450 [facility] Comment on above: Performed By: #### C BC #### [facility] [address] [place] [address] Dr. Katrin Ceja RBC 4.25 106/ul Normal 4.20-5.40 [facility] Comment on above: Performed By: #### C BC #### [facility] [address] [place] [address] Dr. Katrin Ceja WBC 9.7 103/ul Normal 4.0-11.0 [facility] Comment on above: Performed By: #### C BC #### [facility] [address] [place] [address] ABD/PELV W CONon [...] ISAIAH FAROOQ Date: 2021-09-18 03:51 Normal [facility] URINE PROFILEon 2 Bilirubin Ql (U) Negative Normal NEGATIVE [facility] Comment on above: Performed By: #### C BC #### [facility] [address] [place] [address] Dr. Katrin Ceja Clarity (U) CLEAR Normal CLEAR [facility] Comment on above: Performed By: #### C BC #### [facility] [address] [place] [address] Dr. Katrin Ceja Color (U) LT. YELLOW Normal YELLOW [facility] Comment on above: Performed By: #### C BC #### [facility] [address] [place] [address] Dr. Katrin Ceja ERUAHD A micrscopic examina tion will be performed if indicated. Normal [facility] Comment on above: Performed By: #### C BC #### [facility] [address] [place] [address] Dr. Katrin Ceja Glucose Ql (U) Negative Normal NEGATIVE [facility] Comment on above: Performed By: #### C BC #### [facility] [address] [place] [address] Dr. Katrin Ceja Hemoglobin Ql (U) SMALL Abnormal NEGATIVE [facility] Comment on above: Performed By: #### C BC #### [facility] [address] [place] [address] Dr. Katrin Ceja Ketones Ql (U) Negative Normal NEGATIVE [facility] Comment on above: Performed By: #### C BC #### [facility] [address] [place] [address] Dr. Katrin Ceja LEUKOCYTES Negative Normal NEGATIVE [facility] Comment on above: Performed By: #### C BC #### [facility] [address] [place] [address] Dr. Katrin Ceja Nitrite Ql (U) Negative Normal NEGATIVE [facility] Comment on above: Performed By: #### C BC #### [facility] [address] [place] [address] Dr. Katrin Ceja pH (U) 7.5 [pH] Normal 5-9 [facility] Comment on above: Performed By: #### C BC #### [facility] [address] [place] [address] Dr. Katrin Ceja SPEC GRAVITY 1.010 Normal 1.005-<=1. 025 [facility] Comment on above: Performed By: #### C BC #### [facility] [address] [place] [address] Dr. Katrin Ceja UA PROTEIN Negative Normal NEGATIVE/ TRACE [facility] Comment on above: Performed By: #### C BC #### [facility] [address] [place] [address] Dr. Katrin Ceja UR MICRO IND INDICATED Normal [facility] Comment on above: Performed By: #### C BC #### [facility] [address] [place] [address] Dr. Katrin Ceja Urobilinogen Qn (U) 0.2 {Jeannie'U}/dL Normal 0.2 - 1. 0 [facility] Comment on above: Performed By: #### C BC #### [facility] [address] [place] [address] Dr. Katrin Ceja LIPASEon 09-18-2021 Lipase [Catalytic activity/Vol] 81.0 U/L Normal 23.0-300.0 [facility] Comment on above: Performed By: #### P REG #### [facility] [address] [place] [address] Dr. Katrin Ceja URon 09-18-2021 , QUAL Negative Normal NEGATIVE [facility] Comment on above: Performed By: #### C BC #### [facility] [address] [place] [address] Dr. Katrin Ceja PROF 14(COMP METB)on 022 Albumin [Mass/Vol] 3.2 g/dL Critically low 3.5-5.0 [facility] Comment on above: Performed By: #### P REG #### [facility] [address] [place] [address] Dr. Katrin Ceja Albumin/Globulin [Mass ratio] 0.8 {ratio} Normal [facility] Comment on above: Performed By: #### P REG #### [facility] [address] [place] [address] Dr. Katrin Ceja ALP [Catalytic activity/Vol] 216 U/L Critically high 38-126 [facility] Comment on above: Performed By: #### P REG #### [facility] [address] [place] [address] Dr. Katrin Ceja ALT [Catalytic activity/Vol] 109 U/L Critically high 9-52 [facility] Comment on above: Performed By: #### P REG #### [facility] [address] [place] [address] Dr. Katrin Ceja Anion gap [Moles/Vol] 10.5 mmol/L Normal [facility] Comment on above: Performed By: #### P REG #### [facility] [address] [place] [address] Dr. Katrin Ceja AST [Catalytic activity/Vol] 66 U/L Critically high 14-36 [facility] Comment on above: Performed By: #### P REG #### [facility] [address] [address] [address] Katrin Ceja Bilirubin [Mass/Vol] 0.2 mg/dL Normal 0.2-1.3 [facility] Comment on above: Performed By: #### P REG #### [facility] [address] [address] [address] Katrin Ceja Calcium [Mass/Vol] 8.3 mg/dL Critically low 8.4-10.2 [facility] Comment on above: Performed By: #### P REG #### [facility] [address] [place] [address] Dr. Katrin Ceja Chloride [Moles/Vol] 103 mmol/L Normal 98-107 [facility] Comment on above: Performed By: #### P REG #### [facility] [address] [address] [address] Katrin Ceja CO2 [Moles/Vol] 26.2 mmol/L Normal 22.0-30.0 [facility] Comment on above: Performed By: #### P REG #### [facility] [address] [place] [address] Dr. Katrin Ceja Creatinine [Mass/Vol] 0.81 mg/dL Normal 0.52-1.04 [facility] Comment on above: Performed By: #### P REG #### [facility] [address] [place] [address] Dr. Katrin Ceja EGFR-AF PORTUGUESE >60 Normal >=60 [facility] Comment on above: Performed By: #### P REG #### [facility] [address] [place] [address] Dr. Katrin Ceja EGFR-NON AF PORTUGUESE >60 Normal >=60 [facility] Comment on above: Performed By: #### P REG #### [facility] [address] [place] [address] Dr. Katrin Ceja Globulin (S) [Mass/Vol] 4.1 g/dL Normal [facility] Comment on above: Performed By: #### P REG #### [facility] [address] [address] [address] Katrin Ceja Glucose [Mass/Vol] 90 mg/dL Normal 74-106 [facility] Comment on above: Performed By: #### P REG #### [facility] [address] [address] [address] Katrin Ceja Potassium [Moles/Vol] 3.7 mmol/L Normal 3.4-5.0 [facility] Comment on above: Performed By: #### P REG #### [facility] [address] [address] [address] Katrin Ceja Protein [Mass/Vol] 7.3 g/dL Normal 6.1-8.2 [facility] Comment on above: Performed By: #### P REG #### [facility] [address] [place] [address] Dr. Katrin Ceja Sodium [Moles/Vol] 136 mmol/L Critically low 137-145 [facility] Comment on above: Performed By: #### P REG #### [facility] [address] [address] [address] Katrin Ceja Urea nitrogen [Mass/Vol] 5.0 mg/dL Critically low 7.0-17.0 [facility] Comment on above: Performed By: #### P REG #### [facility] [address] [address] [address] Katrin Ceja Urea nitrogen/Creatinine [Mass ratio] 6.2 mg/mg Normal [facility] Comment on above: Performed By: #### P REG #### [facility] [address] [address] [address] Katrin Ceja URINE MICROSCOPIC ONLYon BACTERIA NONE SEEN Normal NONE SEEN [facility] Comment on above: Performed By: #### C BC #### [facility] [address] [address] [address] Katrin Ceja Bacteria identified Cx Nom (U) NOT INDICATED Normal [facility] Comment on above: Performed By: #### C BC #### [facility] [address] [place] [address] Dr. Katrin Ceja CAST NONE SEEN Normal NONE SEEN [facility] Comment on above: Performed By: #### C BC #### [facility] [address] [place] [address] Dr. Katrin Ceja Crystals LM Nom (Urine sed) NONE SEEN Normal NONE SEEN [facility] Comment on above: Performed By: #### C BC #### [facility] [address] [place] [address] Dr. Katrin Ceja Epithelial cells LM Ql (Urine sed) FEW Abnormal NONE SEEN /RARE [facility] Comment on above: Performed By: #### C BC #### [facility] [address] [place] [address] Dr. Katrin Ceja MUCOUS NONE SEEN Normal NONE SEEN [facility] Comment on above: Performed By: #### C BC #### [facility] [address] [place] [address] Dr. Katrin Ceja RBC NONE SEEN Abnormal 0-2 [facility] Comment on above: Performed By: #### C BC #### [facility] [address] [place] [address] Dr. Katrin Ceja WBC NONE SEEN Normal NONE SEEN [facility] Comment on above: Performed By: #### C BC #### [facility] [address] [place] [address] Dr. Katrin Ceja XR ABD FLAT UP_PA [...] ISAIAH FAROOQ Date: 2021-09-18 02:00 Normal [facility] CBC AUTO DIFFon 07-18-2021 BASO # 0.0 103/ul Normal 0.0-0.1 [facility] Comment on above: Performed By: #### C BC #### [facility] [address] [place] [address] Dr. Katrin Ceja Basophils/100 WBC (Bld) 0.3 % Normal 0.2-2.0 [facility] Comment on above: Performed By: #### C BC #### [facility] [address] [place] [address] Dr. Katrin Ceaj EO # 0.2 103/ul Normal 0.0-0.7 [facility] Comment on above: Performed By: #### C BC #### [facility] [address] [place] [address] Dr. Katrin Ceja Eosinophils/100 WBC (Bld) 1.7 % Normal 0.9-7.0 [facility] Comment on above: Performed By: #### C BC #### [facility] [address] [place] [address] Dr. Katrin Ceja Erythrocyte distribution width (RBC) [Ratio] 13.1 % Normal 11.0-15.0 [facility] Comment on above: Performed By: #### C BC #### [facility] [address] [place] [address] Dr. Katrin Ceja Hematocrit (Bld) [Volume fraction] 42.0 % Normal 36.0-48.0 [facility] Comment on above: Performed By: #### C BC #### [facility] [address] [place] [address] Dr. Katrin Ceja Hemoglobin (Bld) [Mass/Vol] 13.7 g/dL Normal 12.0-16.0 [facility] Comment on above: Performed By: #### C BC #### [facility] [address] [place] [address] Dr. Katrin Ceja IG # 0.07 10e3/ul Critically high 0.00-0.03 [facility] Comment on above: Performed By: #### C BC #### [facility] [address] [place] [address] Dr. Katrin Ceja IG % 0.6 % Critically high 0.0-0.5 [facility] Comment on above: Performed By: #### C BC #### [facility] [address] [place] [address] Dr. Katrin Ceja LYMPH # 2.9 103/ul Normal 1.2-3.8 [facility] Comment on above: Performed By: #### C BC #### [facility] [address] [place] [address] Dr. Katrin Ceja Lymphocytes/100 WBC (Bld) 27.1 % Normal 20.5-60.0 [facility] Comment on above: Performed By: #### C BC #### [facility] [address] [place] [address] Dr. Katrin Ceja MANUAL DIFF REQ NO Normal [facility] Comment on above: Performed By: #### C BC #### [facility] [address] [place] [address] Dr. Katrin Ceja MCH (RBC) [Entitic mass] 29.3 pg Normal 26.7-34.0 [facility] Comment on above: Performed By: #### C BC #### [facility] [address] [place] [address] Dr. Katrin Ceja MCHC (RBC) [Mass/Vol] 32.6 g/dL Normal 29.9-35.2 [facility] Comment on above: Performed By: #### C BC #### [facility] [address] [place] [address] Dr. Katrin Ceja MCV (RBC) [Entitic vol] 89.7 fL Normal 81.0-99.0 [facility] Comment on above: Performed By: #### C BC #### [facility] [address] [place] [address] Dr. Katrin Ceja MONO # 0.9 103/ul Critically high 0.3-0.8 [facility] Comment on above: Performed By: #### C BC #### [facility] [address] [place] [address] Dr. Katrin Ceja Monocytes/100 WBC (Bld) 8.2 % Normal 1.7-12.0 [facility] Comment on above: Performed By: #### C BC #### [facility] [address] [address] [address] Katrin Ceja NEUT # 6.7 103/ul Critically high 1.4-6.5 [facility] Comment on above: Performed By: #### C BC #### [facility] [address] [address] [address] Katrin Ceja Neutrophils/100 WBC (Bld) 62.1 % Normal 43.0-75.0 [facility] Comment on above: Performed By: #### C BC #### [facility] [address] [address] [address] Katrin Ceja Platelet mean volume (Bld) [Entitic vol] 9.7 fL Normal 9.5-13.5 [facility] Comment on above: Performed By: #### C BC #### [facility] [address] [address] [address] Katrin Ceja PLT 334 103/ul Normal 150-450 [facility] Comment on above: Performed By: #### C BC #### [facility] [address] [address] [address] Katrin Ceja RBC 4.68 106/ul Normal 4.20-5.40 [facility] Comment on above: Performed By: #### C BC #### [facility] [address] [place] [address] Dr. Katrin Ceja WBC 10.8 103/ul Normal 4.0-11.0 [facility] Comment on above: Performed By: #### C BC #### [facility] [address] [place] [address] Dr. Katrin Ceja GLYCOHEMOGLOBIN A1Con 2021 ADA RECOMMENDATION ADA THERAPEUTIC TARG ET 6.0 - 7.0 ACTION SUGGESTED > 7.0 Normal [facility] Comment on above: Performed By: #### C BC #### [facility] [address] [address] [address] Katrin Ceja Glucose [Mass/Vol] 105 mg/dL Normal [facility] Comment on above: Performed By: #### C BC #### [facility] [address] [address] [address] Katrin Ceja HbA1c (Bld) [Mass fraction] 5.3 % Normal <=6.0 [facility] Comment on above: Performed By: #### C BC #### [facility] [address] [address] [address] Katrin Ceja LIPID PROFILEon 07-18-2021 CHOL-HDL RATIO NORM SEE BELOW Normal [facility] Comment on above: Result Comment: 3.3 - 4.4 LOW RISK 4.4 - 7.1 AVERAGE RISK 7.1 - 11.0 MODERATE RISK >11.0 HIGH RISK Performed By: #### L IPID, CMP #### [facility] [address] [place] [address] Dr. Katrin Ceja Cholesterol [Mass/Vol] 302 mg/dL Critically high <=200 [facility] Comment on above: Performed By: #### L IPID, CMP #### [facility] [address] [place] [address] Dr. Katrin Ceja Cholesterol in HDL [Mass/Vol] 39 mg/dL Normal [facility] Comment on above: Performed By: #### L IPID, CMP #### [facility] [address] [place] [address] Dr. Katrin Ceja Cholesterol in LDL [Mass/Vol] 207.0 mg/dL Normal [facility] Comment on above: Performed By: #### L IPID, CMP #### [facility] [address] [address] [address] Katrin Ceja Cholesterol.total/Chol esterol in HDL [Mass ratio] 7.7 {ratio} Normal [facility] Comment on above: Performed By: #### L IPID, CMP #### [facility] [address] [address] [address] Katrin Ceja HDL NORMAL > or = 60 mg/dl - LO W CARDIOVASCULAR RISK <40 mg/dl - HIGH CARDIOVASCULAR RISK Normal [facility] Comment on above: Performed By: #### L IPID, CMP #### [facility] [address] [address] [address] Katrin Ceja LDL CALC NORMAL SEE BELOW Normal [facility] Comment on above: Result Comment: <100 mg/dl OPTIMAL 100 - 129 mg/dl NEAR OR ABOVE OPTIMAL 130 - 159 mg/dl BORDERLINE HIGH 160 - 189 mg/dl HIGH >190 mg/dl VERY HIGH Performed By: #### L IPID, CMP #### [facility] [address] [address] [address] Katrin Ceja Triglyceride [Mass/Vol] 280 mg/dL Critically high <=150 [facility] Comment on above: Performed By: #### L IPID, CMP #### [facility] [address] [address] [address] Katrin Ceja VLDL CALC 56.0 mg/dL Normal [facility] Comment on above: Performed By: #### L IPID, CMP #### [facility] [address] [place] [address] Dr. Katrin Ceja PROF 14(COMP METB)on 022 Albumin [Mass/Vol] 3.5 g/dL Normal 3.5-5.0 [facility] Comment on above: Performed By: #### L IPID, CMP #### [facility] [address] [address] [address] Katrin Ceja Albumin/Globulin [Mass ratio] 0.7 {ratio} Normal [facility] Comment on above: Performed By: #### L IPID, CMP #### [facility] [address] [address] [address] Katrin Ceja ALP [Catalytic activity/Vol] 291 U/L Critically high 38-126 [facility] Comment on above: Performed By: #### L IPID, CMP #### [facility] [address] [address] [address] Katrin Ceja ALT [Catalytic activity/Vol] 174 U/L Critically high 9-52 [facility] Comment on above: Performed By: #### L IPID, CMP #### [facility] [address] [address] [address] Katrin Ceja Anion gap [Moles/Vol] 15.3 mmol/L Normal [facility] Comment on above: Performed By: #### L IPID, CMP #### [facility] Laboratory [address] [place] [address] Dr. Katrin Ceja AST [Catalytic activity/Vol] 97 U/L Critically high 14-36 [facility] Comment on above: Performed By: #### L IPID, CMP #### [facility] Laboratory [address] [place] [address] Dr. Kartin Ceja Bilirubin [Mass/Vol] 0.4 mg/dL Normal 0.2-1.3 [facility] Comment on above: Performed By: #### L IPID, CMP #### [facility] Laboratory [address] [place] [address] Dr. Katrin Ceja Calcium [Mass/Vol] 9.3 mg/dL Normal 8.4-10.2 [facility] Comment on above: Performed By: #### L IPID, CMP #### [facility] Laboratory [address] [place] [address] Dr. Katrin Ceja Chloride [Moles/Vol] 99 mmol/L Normal 98-107 [facility] Comment on above: Performed By: #### L IPID, CMP #### [facility] Laboratory [address] [place] [address] Dr. Katrin Ceja CO2 [Moles/Vol] 24.1 mmol/L Normal 22.0-30.0 [facility] Comment on above: Performed By: #### L IPID, CMP #### [facility] Laboratory [address] [place] [address] Dr. Katrin Ceja Creatinine [Mass/Vol] 0.65 mg/dL Normal 0.52-1.04 [facility] Comment on above: Performed By: #### L IPID, CMP #### [facility] Laboratory [address] [place] [address] Dr. Katrin Ceja EGFR-AF PORTUGUESE >60 Normal >=60 [facility] Comment on above: Performed By: #### L IPID, CMP #### [facility] Laboratory [address] [place] [address] Dr. Katrin Ceja EGFR-NON AF PORTUGUESE >60 Normal >=60 [facility] Comment on above: Performed By: #### L IPID, CMP #### [facility] Laboratory [address] [place] [address] Dr. Katrin Ceja Globulin (S) [Mass/Vol] 5.0 g/dL Normal [facility] Comment on above: Performed By: #### L IPID, CMP #### [facility] Laboratory [address] [place] [address] Dr. Katrin Ceja Glucose [Mass/Vol] 86 mg/dL Normal 74-106 [facility] Comment on above: Performed By: #### L IPID, CMP #### [facility] Laboratory [address] [place] [address] Dr. Katrin Ceja Potassium [Moles/Vol] 4.4 mmol/L Normal 3.4-5.0 [facility] Comment on above: Performed By: #### L IPID, CMP #### [facility] Laboratory [address] [place] [address] Dr. Katrin Ceja Protein [Mass/Vol] 8.5 g/dL Critically high 6.1-8.2 [facility] Comment on above: Performed By: #### L IPID, CMP #### [facility] Laboratory [address] [place] [address] Dr. Katrin Ceja Sodium [Moles/Vol] 134 mmol/L Critically low 137-145 [facility] Comment on above: Performed By: #### L IPID, CMP #### [facility] Laboratory [address] [place] [address] Dr. Katrin Ceja Urea nitrogen [Mass/Vol] 8.0 mg/dL Normal 7.0-17.0 [facility] Comment on above: Performed By: #### L IPID, CMP #### [facility] Laboratory [address] [place] [address] Dr. Katrin Ceja Urea nitrogen/Creatinine [Mass ratio] 12.3 mg/mg Normal [facility] Comment on above: Performed By: #### L IPID, CMP #### [facility] Laboratory [address] [place] [address] Dr. Katrin Ceja AMYLASEon 05-01-2021 AMYL <30 Critically low 31-110 [facility] Comment on above: Performed By: #### P REG #### [facility] Laboratory [address] [place] [address] Dr. Katrin Ceja CBC AUTO DIFFon 05-01-2021 BASO # 0.0 103/ul Normal 0.0-0.1 [facility] Comment on above: Performed By: #### L IPID, CMP #### [facility] Laboratory [address] [place] [address] Dr. Katrin Ceja Basophils/100 WBC (Bld) 0.3 % Normal 0.2-2.0 [facility] Comment on above: Performed By: #### L IPID, CMP #### [facility] Laboratory [address] [place] [address] Dr. Katrin Ceja EO # 0.1 103/ul Normal 0.0-0.7 [facility] Comment on above: Performed By: #### L IPID, CMP #### [facility] Laboratory [address] [place] [address] Dr. Katrin Ceja Eosinophils/100 WBC (Bld) 0.4 % Critically low 0.9-7.0 [facility] Comment on above: Performed By: #### L IPID, CMP #### [facility] Laboratory [address] [place] [address] Dr. Katrin Ceja Erythrocyte distribution width (RBC) [Ratio] 13.0 % Normal 11.0-15.0 [facility] Comment on above: Performed By: #### L IPID, CMP #### [facility] Laboratory [address] [place] [address] Dr. Katrin Ceja Hematocrit (Bld) [Volume fraction] 37.7 % Normal 36.0-48.0 [facility] Comment on above: Performed By: #### L IPID, CMP #### [facility] Laboratory [address] [place] [address] Dr. Katrin Ceja Hemoglobin (Bld) [Mass/Vol] 12.5 g/dL Normal 12.0-16.0 [facility] Comment on above: Performed By: #### L IPID, CMP #### [facility] Laboratory [address] [address] [address] Katrin Ceja IG # 0.09 10e3/ul Critically high 0.00-0.03 [facility] Comment on above: Performed By: #### L IPID, CMP #### [facility] [address] [address] [address] Katrin Ceja IG % 0.6 % Critically high 0.0-0.5 [facility] Comment on above: Performed By: #### L IPID, CMP #### [facility] [address] [address] [address] Katrin Ceja LYMPH # 1.9 103/ul Normal 1.2-3.8 [facility] Comment on above: Performed By: #### L IPID, CMP #### [facility] [address] [address] [address] Katrin Ceja Lymphocytes/100 WBC (Bld) 12.1 % Critically low 20.5-60.0 [facility] Comment on above: Performed By: #### L IPID, CMP #### [facility] Laboratory [address] [address] [address] Katrin Ceja MANUAL DIFF REQ NO Normal [facility] Comment on above: Performed By: #### L IPID, CMP #### [facility] [address] [address] [address] Katrin Ceja MCH (RBC) [Entitic mass] 28.8 pg Normal 26.7-34.0 [facility] Comment on above: Performed By: #### L IPID, CMP #### [facility] Laboratory [address] [address] [address] Katrin Ceja MCHC (RBC) [Mass/Vol] 33.2 g/dL Normal 29.9-35.2 [facility] Comment on above: Performed By: #### L IPID, CMP #### [facility] [address] [address] [address] Katrin Ceja MCV (RBC) [Entitic vol] 86.9 fL Normal 81.0-99.0 [facility] Comment on above: Performed By: #### L IPID, CMP #### [facility] [address] [address] [address] Katrin Ceja MONO # 1.1 103/ul Critically high 0.3-0.8 [facility] Comment on above: Performed By: #### L IPID, CMP #### [facility] Laboratory [address] [place] [address] Dr. Katrin Ceja Monocytes/100 WBC (Bld) 7.1 % Normal 1.7-12.0 [facility] Comment on above: Performed By: #### L IPID, CMP #### [facility] Laboratory [address] [place] [address] Dr. Katrin Ceja NEUT # 12.3 103/ul Critically high 1.4-6.5 [facility] Comment on above: Performed By: #### L IPID, CMP #### [facility] [address] [place] [address] Dr. Katrin Ceja Neutrophils/100 WBC (Bld) 79.5 % Critically high 43.0-75.0 [facility] Comment on above: Performed By: #### L IPID, CMP #### [facility] Laboratory [address] [place] [address] Dr. Katrin Ceja Platelet mean volume (Bld) [Entitic vol] 8.7 fL Critically low 9.5-13.5 [facility] Comment on above: Performed By: #### L IPID, CMP #### [facility] Laboratory [address] [place] [address] Dr. Katrin Ceja PLT 329 103/ul Normal 150-450 [facility] Comment on above: Performed By: #### L IPID, CMP #### [facility] Laboratory [address] [place] [address] Dr. Katrin Ceja RBC 4.34 106/ul Normal 4.20-5.40 [facility] Comment on above: Performed By: #### L IPID, CMP #### [facility] Laboratory [address] [place] [address] Dr. Katrin Ceja WBC 15.5 103/ul Critically high 4.0-11.0 [facility] Comment on above: Performed By: #### L IPID, [facility] #### [facility] Laboratory [address] [address] [address] ABD/PELV W CONon 05-01-20 CT ABD/PELV W CON CT ABD/PELV W [...] HILDA RAHMAN Date: 2021-05-01 20:30 Normal [facility] LIPASEon 05-01-2021 Lipase [Catalytic activity/Vol] 64.0 U/L Normal 23.0-300.0 [facility] Comment on above: Performed By: #### P REG #### [facility] Laboratory [address] [place] [address] Dr. Katrin Ceja LIVER PROFILEon 05-01-2021 Albumin [Mass/Vol] 3.3 g/dL Critically low 3.5-5.0 Th e [facility] Comment on above: Performed By: #### L IPID, CMP #### [facility] Laboratory [address] [place] [address] Dr. Katrin Ceja Albumin/Globulin [Mass ratio] 0.6 {ratio} Normal [facility] Comment on above: Performed By: #### L IPID, CMP #### [facility] Laboratory [address] [place] [address] Dr. Katrin Ceja ALP [Catalytic activity/Vol] 412 U/L Critically high 38-126 [facility] Comment on above: Performed By: #### L IPID, CMP #### [facility] Laboratory [address] [place] [address] Dr. Katrin Ceja ALT [Catalytic activity/Vol] 124 U/L Critically high 9-52 [facility] Comment on above: Performed By: #### L IPID, CMP #### [facility] [address] [place] [address] Dr. Katrin Ceja AST [Catalytic activity/Vol] 61 U/L Critically high 14-36 [facility] Comment on above: Performed By: #### L IPID, CMP #### [facility] Laboratory [address] [place] [address] Dr. Katrin Ceja BILI, CONJUGATED 0.2 mg/dL Normal 0.0-0.3 [facility] Comment on above: Performed By: #### L IPID, CMP #### [facility] Laboratory [address] [place] [address] Dr. Katrin Ceja Bilirubin [Mass/Vol] 0.4 mg/dL Normal 0.2-1.3 [facility] Comment on above: Performed By: #### L IPID, CMP #### [facility] [address] [address] [address] Katrin Ceja Globulin (S) [Mass/Vol] 5.1 g/dL Normal [facility] Comment on above: Performed By: #### L IPID, CMP #### [facility] [address] [address] [address] Katrin Ceja Protein [Mass/Vol] 8.4 g/dL Critically high 6.1-8.2 [facility] Comment on above: Performed By: #### L IPID, CMP #### [facility] Laboratory [address] [place] [address] Dr. Katrin Ceja PREG HCG QUALon 05-01-2021 , QUAL Negative Normal NEGATIVE [facility] Comment on above: Performed By: #### P REG #### [facility] Laboratory [address] [place] [address] Dr. Katrin Ceja PROF CHEM 8 (BAS METB)on Anion gap [Moles/Vol] 17.1 mmol/L Normal [facility] Comment on above: Performed By: #### P REG #### [facility] Laboratory [address] [place] [address] Dr. Katrin Ceja Calcium [Mass/Vol] 8.9 mg/dL Normal 8.4-10.2 [facility] Comment on above: Performed By: #### P REG #### [facility] Laboratory [address] [place] [address] Dr. Katrin Ceja Chloride [Moles/Vol] 100 mmol/L Normal 98-107 [facility] Comment on above: Performed By: #### P REG #### [facility] [address] [place] [address] Dr. Katrin Ceja CO2 [Moles/Vol] 21.1 mmol/L Critically low 22.0-30.0 [facility] Comment on above: Performed By: #### P REG #### [facility] Laboratory [address] [place] [address] Dr. Katrin Ceja Creatinine [Mass/Vol] 0.78 mg/dL Normal 0.52-1.04 [facility] Comment on above: Performed By: #### P REG #### [facility] Laboratory [address] [place] [address] Dr. Katrin Ceja EGFR-AF PORTUGUESE >60 Normal >=60 [facility] Comment on above: Performed By: #### P REG #### [facility] Laboratory [address] [address] [address] Katrin Ceja EGFR-NON AF PORTUGUESE >60 Normal >=60 [facility] Comment on above: Performed By: #### P REG #### [facility] [address] [place] [address] Dr. Katrin Ceja Glucose [Mass/Vol] 97 mg/dL Normal 74-106 [facility] Comment on above: Performed By: #### P REG #### [facility] [address] [place] [address] Dr. Katrin Ceja Potassium [Moles/Vol] 4.2 mmol/L Normal 3.4-5.0 [facility] Comment on above: Performed By: #### P REG #### [facility] [address] [place] [address] Dr. Katrin Ceja Sodium [Moles/Vol] 134 mmol/L Critically low 137-145 [facility] Comment on above: Performed By: #### P REG #### [facility] Laboratory [address] [place] [address] Dr. Katrin Ceja Urea nitrogen [Mass/Vol] 6.0 mg/dL Critically low 7.0-17.0 [facility] Comment on above: Performed By: #### P REG #### [facility] [address] [place] [address] Dr. Katrin Ceja Urea nitrogen/Creatinine [Mass ratio] 7.7 mg/mg Normal [facility] Comment on above: Performed By: #### P REG #### [facility] Laboratory [address] [place] [address] Dr. Katrin Ceja CBC AUTO DIFFon 04-29-2021 BASO # 0.1 103/ul Normal 0.0-0.1 [facility] Comment on above: Performed By: #### L IPID, CMP #### [facility] [address] [place] [address] Dr. Katrin Ceja Basophils/100 WBC (Bld) 0.4 % Normal 0.2-2.0 [facility] Comment on above: Performed By: #### L IPID, CMP #### [facility] Laboratory [address] [place] [address] Dr. Katrin Ceja EO # 0.2 103/ul Normal 0.0-0.7 [facility] Comment on above: Performed By: #### L IPID, CMP #### [facility] Laboratory [address] [place] [address] Dr. Katrin Ceja Eosinophils/100 WBC (Bld) 1.7 % Normal 0.9-7.0 [facility] Comment on above: Performed By: #### L IPID, CMP #### [facility] [address] [place] [address] Dr. Katrin Ceja Erythrocyte distribution width (RBC) [Ratio] 12.9 % Normal 11.0-15.0 [facility] Comment on above: Performed By: #### L IPID, CMP #### [facility] [address] [place] [address] Dr. Katrin Ceja Hematocrit (Bld) [Volume fraction] 39.0 % Normal 36.0-48.0 [facility] Comment on above: Performed By: #### L IPID, CMP #### [facility] [address] [place] [address] Dr. Katrin Ceja Hemoglobin (Bld) [Mass/Vol] 12.9 g/dL Normal 12.0-16.0 [facility] Comment on above: Performed By: #### L IPID, CMP #### [facility] Laboratory [address] [place] [address] Dr. Katrin Ceja IG # 0.08 10e3/ul Critically high 0.00-0.03 [facility] Comment on above: Performed By: #### L IPID, CMP #### [facility] [address] [address] [address] Katrin Ceja IG % 0.6 % Critically high 0.0-0.5 [facility] Comment on above: Performed By: #### L IPID, CMP #### [facility] [address] [address] [address] Katrin Ceja LYMPH # 3.2 103/ul Normal 1.2-3.8 [facility] Comment on above: Performed By: #### L IPID, CMP #### [facility] [address] [address] [address] Katrin Ceja Lymphocytes/100 WBC (Bld) 24.4 % Normal 20.5-60.0 [facility] Comment on above: Performed By: #### L IPID, CMP #### [facility] [address] [place] [address] Dr. Katrin Ceja MANUAL DIFF REQ NO Normal [facility] Comment on above: Performed By: #### L IPID, CMP #### [facility] [address] [address] [address] Katrin Ceja MCH (RBC) [Entitic mass] 29.1 pg Normal 26.7-34.0 [facility] Comment on above: Performed By: #### L IPID, CMP #### [facility] [address] [address] [address] Katrin Ceja MCHC (RBC) [Mass/Vol] 33.1 g/dL Normal 29.9-35.2 [facility] Comment on above: Performed By: #### L IPID, CMP #### [facility] [address] [address] [address] Katrin Ceja MCV (RBC) [Entitic vol] 88.0 fL Normal 81.0-99.0 [facility] Comment on above: Performed By: #### L IPID, CMP #### [facility] [address] [address] [address] Katrin Ceja MONO # 1.2 103/ul Critically high 0.3-0.8 [facility] Comment on above: Performed By: #### L IPID, CMP #### [facility] [address] [address] [address] Katrin Ceja Monocytes/100 WBC (Bld) 9.2 % Normal 1.7-12.0 [facility] Comment on above: Performed By: #### L IPID, CMP #### [facility] [address] [address] [address] Katrin Ceja NEUT # 8.3 103/ul Critically high 1.4-6.5 [facility] Comment on above: Performed By: #### L IPID, CMP #### [facility] [address] [address] [address] Katrin Ceja Neutrophils/100 WBC (Bld) 63.7 % Normal 43.0-75.0 [facility] Comment on above: Performed By: #### L IPID, CMP #### [facility] Laboratory [address] [place] [address] Dr. Katrin Ceja Platelet mean volume (Bld) [Entitic vol] 9.2 fL Critically low 9.5-13.5 [facility] Comment on above: Performed By: #### L IPID, CMP #### [facility] [address] [place] [address] Dr. Katrin Ceja PLT 384 103/ul Normal 150-450 [facility] Comment on above: Performed By: #### L IPID, CMP #### [facility] [address] [place] [address] Dr. Katrin Ceja RBC 4.43 106/ul Normal 4.20-5.40 [facility] Comment on above: Performed By: #### L IPID, CMP #### [facility] [address] [address] [address] Katrin Ceja WBC 13.1 103/ul Critically high 4.0-11.0 [facility] Comment on above: Performed By: #### L IPID, CMP #### [facility] [address] [place] [address] ABD/PELV W CONon 10-16-[address] ABD/PELV W CON EXAMINATION: CT ABD/ [...] by: Lorenzo LAN Date: 2021-04-29 02:49 Normal [facility] LACTATE/LACTIC ACIDon 2020 Lactate [Moles/Vol] 1.2 mmol/L Normal 0.7-2.0 [facility] Comment on above: Performed By: #### C BC #### [facility] [address] [address] [address] Katrin Ceja PROF 14(COMP METB)on 04-29- 021 Albumin [Mass/Vol] 3.4 g/dL Critically low 3.5-5.0 [facility] Comment on above: Performed By: #### C BC #### [facility] [address] [address] [address] Katrin Ceja Albumin/Globulin [Mass ratio] 0.7 {ratio} Normal [facility] Comment on above: Performed By: #### C BC #### [facility] [address] [place] [address] Dr. Katrin Ceja ALP [Catalytic activity/Vol] 359 U/L Critically high 38-126 [facility] Comment on above: Performed By: #### C BC #### [facility] [address] [place] [address] Dr. Katrin Ceja ALT [Catalytic activity/Vol] 193 U/L Critically high 9-52 [facility] Comment on above: Performed By: #### C BC #### [facility] [address] [place] [address] Dr. Katrin Ceja Anion gap [Moles/Vol] 13.3 mmol/L Normal [facility] Comment on above: Performed By: #### C BC #### [facility] [address] [place] [address] Dr. Katrin Ceja AST [Catalytic activity/Vol] 115 U/L Critically high 14-36 [facility] Comment on above: Performed By: #### C BC #### [facility] [address] [place] [address] Dr. Katrin Ceja Bilirubin [Mass/Vol] 0.5 mg/dL Normal 0.2-1.3 [facility] Comment on above: Performed By: #### C BC #### [facility] [address] [place] [address] Dr. Katrin Ceja Calcium [Mass/Vol] 9.5 mg/dL Normal 8.4-10.2 [facility] Comment on above: Performed By: #### C BC #### [facility] [address] [place] [address] Dr. Katrin Ceja Chloride [Moles/Vol] 101 mmol/L Normal 98-107 [facility] Comment on above: Performed By: #### C BC #### [facility] [address] [place] [address] Dr. Katrin Ceja CO2 [Moles/Vol] 23.7 mmol/L Normal 22.0-30.0 [facility] Comment on above: Performed By: #### C BC #### [facility] [address] [place] [address] Dr. Katrin Ceja Creatinine [Mass/Vol] 0.83 mg/dL Normal 0.52-1.04 [facility] Comment on above: Performed By: #### C BC #### [facility] [address] [place] [address] Dr. Katrin Ceja EGFR-AF PORTUGUESE >60 Normal >=60 [facility] Comment on above: Performed By: #### C BC #### [facility] [address] [place] [address] Dr. Katrin Ceja EGFR-NON AF PORTUGUESE >60 Normal >=60 [facility] Comment on above: Performed By: #### C BC #### [facility] [address] [place] [address] Dr. Katrin Ceja Globulin (S) [Mass/Vol] 5.1 g/dL Normal [facility] Comment on above: Performed By: #### C BC #### [facility] [address] [place] [address] Dr. Katrin Ceja Glucose [Mass/Vol] 102 mg/dL Normal 74-106 [facility] Comment on above: Performed By: #### C BC #### [facility] [address] [place] [address] Dr. Katrin Ceja Potassium [Moles/Vol] 4.0 mmol/L Normal 3.4-5.0 [facility] Comment on above: Performed By: #### C BC #### [facility] [address] [place] [address] Dr. Katrin Ceja Protein [Mass/Vol] 8.5 g/dL Critically high 6.1-8.2 [facility] Comment on above: Performed By: #### C BC #### [facility] [address] [place], [place] [address] Dr. Katrin Ceja Sodium [Moles/Vol] 134 mmol/L Critically low 137-145 [facility] Comment on above: Performed By: #### C BC #### [facility] [address] [place] [id number] Katrin Ceja Urea nitrogen [Mass/Vol] 6.0 mg/dL Critically low 7.0-17.0 [facility] Comment on above: Performed By: #### C BC #### [facility] [address] [place], [place] [address] Dr. Katrin Ceja Urea nitrogen/Creatinine [Mass ratio] 7.2 mg/mg Normal [facility] Comment on above: Performed By: #### C BC #### [facility] [address] [place] [id number] Katrin Ceja XR CHEST 1 Von [...] by: HILDA GU Date: 2021-04-28 23:45 Normal [facility] Acetaminophen (Tylenol) Leve thi 03-22-2019 Acetaminophen [Mass/Vol] <10 Normal 10.0-30.0 [facility] Comment on above: Performed By: #### 1 4581-3, 53873-5, 39834-3, 52759-5m8, 24139-2, 21727-6 #### [facility] [address] [place], [place] Alcohol (Ethanol) Levelon Ethanol [Mass/Vol] mg/dL Normal 0.00-0.00 [facility] Comment on above: Performed By: #### 1 4581-3, 92890-5, 86806-7, 33668-8k8, 28976-8, 72231-5 #### [facility] [address] [place], [place] CBC with Differentialon 09-0 Basophils (Bld) [#/Vol] 0.10 thou/mcL Normal 0.00-0.20 [facility] Comment on above: Performed By: #### 5 7021-8 #### [facility] [address] [place], [place] Basophils/100 WBC (Bld) 0.7 % Normal 0.0-2.0 [facility] Comment on above: Performed By: #### 5 7021-8 #### [address] Eosinophils (Bld) [#/Vol] 0.40 thou/mcL Normal 0.00-0.70 [facility] Comment on above: Performed By: #### 5 7021-8 #### [address] Eosinophils/100 WBC (Bld) 3.7 % Normal 0.0-7.0 [facility] Comment on above: Performed By: #### 5 7021-8 #### [address] Erythrocyte distribution width (RBC) [Entitic vol] 12.6 % Normal 11.0-14.8 [facility] Comment on above: Performed By: #### 5 7021-8 #### [facility] [address] [place] [address] Hematocrit (Bld) [Volume fraction] 38.5 % Normal 35.0-45.0 [facility] Comment on above: Performed By: #### 5 7021-8 #### [facility] [address] [place], [place] Hemoglobin (Bld) [Mass/Vol] 13.3 g/dL Normal 12.0-16.0 [facility] Comment on above: Performed By: #### 5 7021-8 #### [facility] [address] [place], [place] Lymphocytes (Bld) [#/Vol] 3.10 thou/mcL Normal 1.00-4.80 [facility] Comment on above: Performed By: #### 7021-8 #### [facility] [address] [place], [place] Lymphocytes/100 WBC (Bld) 30.1 % Normal 22.0-44.0 [facility] Comment on above: Performed By: #### 7021-8 #### [facility] [address] [place], [place] MCH (RBC) [Entitic mass] 30.8 Picograms Normal 27.0-34.0 [facility] Comment on above: Performed By: #### 7021-8 #### [facility] [address] [place] [address] MCHC (RBC) [Mass/Vol] 34.7 g/dL Normal 32.0-36.0 [facility] Comment on above: Performed By: #### 7021-8 #### [facility] [address] [place] [address] MCV (RBC) [Entitic vol] 88.8 fL Normal 80.0-97.0 [facility] Comment on above: Performed By: #### 7021-8 #### [facility] [address] [place], [place] Monocytes (Bld) [#/Vol] 1.10 thou/mcL High 0.00-0.90 [facility] Comment on above: Performed By: #### 7021-8 #### [facility] [address] [place], [place] Monocytes/100 WBC (Bld) 10.4 % Normal 0.0-12.0 [facility] Comment on above: Performed By: #### 7021-8 #### [facility] [address] [place], [place] Neutrophils (Bld) [#/Vol] 5.60 thou/mcL Normal 1.80-7.70 [facility] Comment on above: Performed By: #### 5 7021-8 #### [facility] [address] [place], [place] Neutrophils/100 WBC (Bld) 55.1 % Normal 40.0-70.0 [facility] Comment on above: Performed By: #### 5 7021-8 #### [facility] [address] [place] Platelet mean volume (Bld) [Entitic vol] 7.5 fL Normal 6.2-12.1 [facility] Comment on above: Performed By: #### 5 7021-8 #### [place] [address] [place], [place] Platelets (Bld) [#/Vol] 280 thou/mcL Normal 142-424 [facility] Comment on above: Performed By: #### 5 7021-8 #### [address] RBC (Bld) [#/Vol] 4.33 million/mcL Normal 3.80-5.10 [facility] Comment on above: Performed By: #### 5 7021-8 #### [place] [address] [address] [place], [place] WBC (Bld) [#/Vol] 10.2 thou/mcL Normal 4.6-10.2 [facility] Comment on above: Performed By: #### 5 7021-8 #### [place] [address] [place], [place] Comprehensive Metabolic Pane thi 03-22-2019 Albumin [Mass/Vol] 4.2 g/dL Normal 3.5-4.8 [facility] Comment on above: Performed By: #### 1 4581-3, 59520-7, 09475-1, 40233-0x9, 36454-5, 28723-2 #### [facility] [address] [place], [place] ALP [Catalytic activity/Vol] 96 Units/L High 32-91 [facility] Comment on above: Performed By: #### 1 4581-3, 15690-0, 18039-0, 80463-8y1, 93511-5, 08355-0 #### [facility] [address] [place], [place] ALT [Catalytic activity/Vol] 25 Units/L Normal 14-63 [facility] Comment on above: Performed By: #### 1 4581-3, 08072-2, 48606-7, 48979-6z6, 84849-8, 72693-2 #### [facility] [address] [place], [place] Anion gap [Moles/Vol] 9.0 mmol/L Normal 6.0-18.0 [facility] Comment on above: Performed By: #### 1 4581-3, 41849-8, 33292-2, 05867-9p5, 01592-8, 69407-1 #### [address] AST [Catalytic activity/Vol] 24 Units/L Normal 15-41 [facility] Comment on above: Performed By: #### 1 4581-3, 92753-3, 91574-0, 84557-8r1, 57417-6, 24503-3 #### [facility] [address] [place] Bilirubin [Mass/Vol] 0.5 mg/dL Normal 0.3-1.2 [facility] Comment on above: Performed By: #### 1 4581-3, 04386-9, 23182-3, 38104-2n8, 46262-5, 20316-1 #### [facility] [address] [place] Calcium [Mass/Vol] 8.9 mg/dL Normal 8.9-10.3 [facility] Comment on above: Performed By: #### 1 4581-3, 49873-9, 37767-6, 33644-6t4, 45910-4, 03804-8 #### [facility] [address] [place] Chloride [Moles/Vol] 107 mmol/L Normal 98-107 [facility] Comment on above: Performed By: #### 1 4581-3, 00162-7, 11968-0, 29847-0w9, 83693-5, 45144-3 #### [facility] [address] [place] CO2 [Moles/Vol] 23 mmol/L Normal 22-32 [facility] Comment on above: Performed By: #### 1 4581-3, 65273-2, 48028-9, 28272-5d4, 28824-3, 98804-4 #### [facility] [address] [place], [place] Creatinine [Mass/Vol] 0.68 mg/dL Normal 0.60-1.30 [facility] Comment on above: Performed By: #### 1 4581-3, 69212-6, 70458-5, 14138-6q0, 71325-3, 25787-9 #### [facility] [address] [place], [place] Glucose [Mass/Vol] 90 mg/dL Normal 70-99 [facility] Comment on above: Result Comment: U pdated ADA Reference Range A normal fasting glucose concentration is less than 100 mg/dL. An impaired fasting glucose concentration is 100-125 mg/dL. A provisional diagnosis of diabetes mellitus can be made when a fasting glucose concentration is greater than 125 mg/dL. Performed By: #### 1 4581-3, 22760-5, 29401-7, 40065-9b1, 75942-3, 72842-3 #### [facility] [address] [place], [place] Potassium [Moles/Vol] 3.4 mmol/L Low 3.6-5.1 [facility] Comment on above: Performed By: #### 1 4581-3, 21684-2, 25324-3, 01691-4b8, 40989-0, 47934-8 #### [facility] [address] [place], [place] Protein [Mass/Vol] 7.4 g/dL Normal 6.1-7.9 [facility] Comment on above: Performed By: #### 1 4581-3, 63782-4, 74369-7, 02734-2h9, 25984-9, 76742-6 #### [facility] [address] [place], [place] Sodium [Moles/Vol] 139 mmol/L Normal 136-145 [facility] Comment on above: Performed By: #### 1 4581-3, 64798-4, 08426-8, 49439-4b9, 99335-2, 71682-0 #### [facility] [address] [place], [place] Urea nitrogen (BldV) [Mass/Vol] 17 mg/dL Normal 8-20 [facility] Comment on above: Performed By: #### 1 4581-3, 26288-2, 49892-0, 04551-2r9, 94177-2, 93263-2 #### [facility] Drug Abuse Screen 8 Urineon 03-22-2019 Barbiturates Screen Ql (U) Negative Normal [facility] Comment on above: Performed By: #### 1 2286-1 #### [address] Amphetamines Ql (U) Positive Abnormal [facility] Comment on above: Result Comment: Conf irmatory testing available upon request. Performed By: #### 1 2286-1 #### [facility] [address] [place] [address] Benzodiazepines cutoff Screen (U) [Mass/Vol] Negative Normal [facility] Comment on above: Performed By: #### 1 2286-1 #### [place] [address] [place], [place] Cocaine Ql (U) Positive Abnormal [facility] Comment on above: Result Comment: Conf irmatory testing available upon request. Performed By: #### 1 2286-1 #### [facility] [address] [place] [address] Interpretation and review of laboratory results Negative Normal [facility] Comment on above: Performed By: #### 1 2286-1 #### [facility] [address] [place], [place] Methadone Screen Ql (U) Negative Normal NEGATIVE-N EGATIVE [facility] Comment on above: Performed By: #### 1 2286-1 #### [facility] [address] [place], [place] Opiates Screen Ql (U) Negative Normal [facility] Comment on above: Result Comment: INTE [...] ONLY. Performed By: #### 1 2286-1 #### [facility] [address] [place], [place] Tetrahydrocannabinol Screen Ql (U) Positive Abnormal [facility] Comment on above: Result Comment: Conf irmatory testing available upon request. Performed By: #### 1 2286-1 #### [facility] [address] [place] [address] ED Pat Eduon 03-22-2019 ED Pat Edu [address] [address] Emergency Department Discharge Instructions JENNIFER ENGLE , [...] de [facility] JENNIFER [place])-[phone] PLEASE READ THE FOLLOWING REGARDING YOUR MEDICATIONS [...] doses are changed, or new medications (including fhen-goo-hwuitpc products) are added. If you have any [...] UNTIL YOU TALK TO YOUR DOCTOR None [facility] [address] [place], [place] [address] Emergency Department Discharge Instructions Name: JENNIFER ENGLE Current Date: 03/22/2019 19:32:22 : 1995 Primary Physician: Physician, No PCP We would like to thank you for choosing [facility] for your emergency medical needs. We [...] and the health of those around you. [facility] offers many resources to help with smoking cessation. Call the [place] Tobacco Quit Line at 1-407-OQOZ-NOW ( ). High blood pressure: Your screening [...] deadly infections. Discuss this with your child's wood room supervisor, or Public Health Department. Your family practice doctor can determine if you need pneumonia or flu vaccine. [facility] Department can be reached at . Substance Abuse Program: Concerns with addiction to alcohol, benzodiazepines (Ativan or Xanax) and Opiates (Heroin, Percocet, OxyContin, Methadone or Fentanyl)? [facility] offers an inpatient Substance Abuse Program to help treat the symptoms associated with medical detoxification of addictive substances. The new program offers care for non- adults (18 and older) looking to break the chain to addictive chemicals. The Substance Abuse Program is a voluntary inpatient admission and it starts with a pre-screening phone call to a manager social responsibility. During the call, goals and objectives for recovery and how the patient will transition to outpatient care will be established. Please call [phone] to get help today. Domestic Violence: If you are a victim of domestic violence (physical, verbal, or emotional), you are not alone. Discuss this with your physician or a friend and call the [place] Domestic Violence Hotline or [place] Domestic Violence Hotline for assistance and support. [...] physician, call the Physician Referral Line at [phone]) 610-TLVY (6917). Suicide Hotline: Your mental and emotional well-being is important. If you are in a mental health crisis or are having thoughts of suicide, please call the nationwide suicide hotline, anytime day or night, at 6-515-943-ERZG (1050). Community Sitecore Developer: You may be contacted by your local fire department for a follow up visit from a community roll finisher. The community roll finisher can help with a home safety check; follow up care, and general home care management. Pharmacy Information: Below is a list of 24 hour pharmacies that we are aware of. We suggest that you call the specific pharmacy for their hours before traveling to a location. Hours may vary on holidays. [facility] [address] [phone] [address] [facility] [place] [place] [address] [phone] [address] [place], [place] [address] [phone] [address] [place], [place] [phone] [address] [place], [place] [phone] [address] [place], [place] [phone] [place] [address] [phone] Take all medications as directed. If you need prescription assistance, contact the following agencies: ?? Partnership for Prescription Assistance at or www.pparx.org ?? [place] at or www.[place]estrx.org ?? www.StreamlineRx.Hachimenroppi is a site with many valuable coupons Patient Education Materials JENNIFER ENGLE has been given the following patient education materials: <><><><><><><><><><><><>< ><><><><><><><><><><><><> <> Patient Visit Summary Signature ONIELDOMINICRosales Benjamin has been given the following list of patient education materials, prescriptions and follow-up instructions: ONIEL Siddiqui JENNIFER E, have received the above patient education materials/instructions and have verbalized understanding: Date Time Patient Signature Date Time Provider Signature Normal [facility] GFRaaon 03-22-2019 GFR/1.73 sq M predicted among blacks MDRD (S/P/Bld) [Vol rate/Area] mL/min/{1.73_m2} [facility] Comment on above: Result Comment: The MDRD equation has not been validated for those over 70 years, women, patients with serious co-morbid conditions, or with extremes of body size, muscle mass of nutritional status. Performed By: #### 1 4581-3, 38069-0, 77755-0, 20190-6x7, 91642-8, 79230-7 #### [address] GFRbbon 03-22-2019 GFR/1.73 sq M predicted among non-blacks MDRD (S/P/Bld) [Vol rate/Area] mL/min/{1.73_m2} [facility] Comment on above: Performed By: #### 1 4581-3, 87692-2, 87029-8, 71100-1l2, 12828-4, 99285-3 #### [address] Test Urineon 03-22 HCG ( test) Ql (U) Negative Normal [facility] Comment on above: Performed By: #### 2 106-3 #### [facility], [address] [place], [place] Salicylate Levelon 9 Salicylates [Mass/Vol] mg/dL Normal 2.8-30.0 Mo [facility] Comment on above: Performed By: #### 1 4581-3, 37054-5, 66027-2, 52827-8f6, 92764-8, 46467-2 #### [facility] [address] [place], [place] Medication Managementon 100 Medication Management [id number]#1.00OTGTIF F Normal [facility] ED Clinical Summaryon 2017 ED Clinical Summary [facility] [address] [place] [address] ed Clinical SummaryPERSON INFORMATIONName: JENNIFER ENGLE Age: 22 Years Sex: FEMALEDOB: [birth year] MRN: Acct#:Visit Reason: Dental pain; Dental pain; DENTAL PAIN Arrival: 04/11/18 20:21:00 Discharge: 04/11/18 20:55:00LOS: 000 00:34 Check In: 04/11/18 20:21:00 Checkout:04/11/18 20:55:00Address:[address] [facility] [facility] [address]GJP: TAI WATTS INFORMATIONProvider Role Assigned UnassAlistair Henderson MD ED Provider 04/11/18 20:21:45Mary Jane Lyles ED Nurse 04/11/18 20:35:44VITALS INFORMATIONVital Sign Triage [...] Diagnoses: Dental caries; Pain, dentalAuthor: Alistair Max InformationTime seen: Date & time 04/11/18 20:29:00.Dental caries, dental painHistory of Present Syqqocc38-dwiz-nao white female presents to the emergency room [...] her poor dental state..Impression and PlanDiagnosisDental caries (ISP85-OS K02.9, Discharge, Medical)Pain, dental (NUD84-LR K08.89, Discharge, Medical)PlanCondition: Improved, Stable.Disposition: Discharged: to home.Prescriptions: Launch prescriptionsPharmacy:tra MADol 50 mg oral tablet (Prescribe): 50 mg = 1 tab(s), PO, q4hr, PRN: as needed for pain, 12 tab(s), 0 Refill(s)amoxicillin 500 mg oral capsule (Prescribe): 1,000 mg = 2 cap(s), PO, BID, 40 cap(s), 0 Refill(s).Patient was given the following educational materials: Dental Pain, Vxoc-hj-Tgew, Dental Caries, Adult, Luhl-oy-Kogt, Dental Caries, Adult, Hgpy-mv-Atzn, Dental Pain, Evzk-vd-Mhux.Follow up with: SOLOMON WATTS Within 3 to 5 days.Counseled: Patient, Regarding diagnosis, Regarding treatment plan, Regarding prescription, Patient indicated understanding of instructions.DISCHARGE INFORMATION:Discharge Disposition: HomeDischarge Location: HomePATIENT EDUCATION INFORMATIONInstructions: Dental Caries, Adult, Aabg-xc-Bvkt; Dental Pain, Zipl-rx-EfooCukyit-Up:Chelsey : Address: When:SOLOMON WATTS [address] [place] [address] [facility] (1) Within 3 to 5 daysDIAGNOSIS:Dental caries; Dental pain; Pain, dentalPatient Understands: Yes - Patient/family/caregiver verbalizes understanding of instructions givenComment: [facility] Note - Physicianon 2017 ED Note - Physician Patient: DOMINIC NEGLE : 22 years Sex: FEMALE : [birth year]Associated Diagnoses: Dental caries; Pain, dentalAuthor: Alistair Max MDBasipramod InformationTime seen: Date & time 04/11/18 20:29:00.Dental caries, dental painHistory of Present Syjztax10-zncz-dmd white female presents to the emergency room [...] her poor dental state..Impression and PlanDiagnosisDental caries (CSR79-KJ K02.9, Discharge, Medical)Pain, dental (EYB90-LG K08.89, Discharge, Medical)PlanCondition: Improved, Stable.Disposition: Discharged: to home.Prescriptions: Launch prescriptionsPharmacy:tra MADol 50 mg oral tablet (Prescribe): 50 mg = 1 tab(s), PO, q4hr, PRN: as needed for pain, 12 tab(s), 0 Refill(s)amoxicillin 500 mg oral capsule (Prescribe): 1,000 mg = 2 cap(s), PO, BID, 40 cap(s), 0 Refill(s).Patient was given the following educational materials: Dental Pain, Uckg-yz-Gipv, Dental Caries, Adult, Ewcn-gb-Nkxl, Dental Caries, Adult, Orde-si-Vpvx, Dental Pain, Sgol-br-Fvpa.Follow up with: SOLOMON WATTS Within 3 to 5 days.Counseled: Patient, Regarding diagnosis, Regarding treatment plan, Regarding prescription, Patient indicated understanding of instructions.[Electronica satishy Signed on: 04/11/2018 20:42 EDT] Alistair Salomon MD[Verified on: 04/11/2018 20:42 EDT] Alistair Salomon MD [facility] ED Patient Education Noteon 04-11-2018 ED Patient [...] mouth and teeth. This keeps them healthy.? [place] your teeth 2 times a day. Use toothpaste with fluoride in it.? Floss your teeth once a day.? If your dentist prescribed an antibiotic medicine to treat an infection, take it as told. Do not stop taking the antibiotic even if your condition gets better.? Keep all follow-up visits as told by your dentist. This is important. This includes all cleanings.Preventing dental caries? [place] your teeth every morning and night. Use [...] Reviewed: 03/17/2017[employer] Patient Education ? 2017 [employer].Dental PainDental pain may be caused by many [...] Reviewed: 06/27/2015[employer] Patient Education ? 2018 [employer] Normal [facility] ED Patient Summaryon 018 ED Patient Summary [facility] [address] [place], [place] [id number] pATIENT DISCHARGE INSTRUCTIONSPatient InformationName: JENNIFER ENGLE Age: 22 YearsDate of : [birth year]MRN: [id number] For Visit: Dental pain; Dental pain; DENTAL PAINArrival Time: 04/11/18 20:21:00Phone: Primary Care Physician: SOLOMON WATTSAttending Physician: Alistair Max MDComment:Visit Diagnosis:Diagnoses This Visit Dental caries (K02.9) Dental pain (K08.8) Dental pain ([id number]) Dental pain ([id number]) Pain, dental (K08.89)If you received any narcotics, [...] sign any legal documentsWith: Address: When:SOLOMON WATTS [address] [place], [place] [address] [address] Business (1) Within 3 to 5 daysMedication Information:The exam and treatment you received today in the [facility] Emergency Department were for an urgent problem and are not intended as complete care. It is important for you to follow up with a doctor, nurse practitioner, or physician?s television production assistant for ongoing care. If your symptoms [...] number so we can reach you if necessary.[facility] Department has provided you with a complete list of medications post discharge. Please inform your photo manager/provider of your visit and for further instruction [...] mouth and teeth. This keeps them healthy.? [place] your teeth 2 times a day. Use toothpaste with fluoride in it.? Floss your teeth once a day.? If your dentist prescribed an antibiotic medicine to treat an infection, take it as told. Do not stop taking the antibiotic even if your condition gets better.? Keep all follow-up visits as told by your dentist. This is important. This includes all cleanings.Preventing dental caries? [place] your teeth every morning and night. Use [...] Reviewed: 03/17/2017[employer] Patient Education ? 2017 [employer].Dental PainDental pain may be caused by many [...] Reviewed: 06/27/2015[employer] Patient Education ? 2018 [employer]. Viruses or BacteriaWhat?s got you sick?Antibiotics only [...] Antibiotics Jazmin.[place] Department of Health and Human ServicesCenters for Disease Control and Prevention March 2014 [facility] Vital Signs Date Time Vital Sign Value Performing Clinician Facility 05-07-2023 13:15-0400 Body height 167.64 cm Key Patel Other [facility] Other 05-07-2023 13:15-0400 Body mass index (BMI) [Ratio] 37.54 kg/m2 Key Patel Other [facility] Other 05-07-2023 13:15-0400 Body temperature 97.8 [degF] Key Patel Other [facility] Other 05-07-2023 13:15-0400 Body weight 105.51 kg Key Patel Other [facility] Other 05-07-2023 13:15-0400 Respiratory rate 18 /min Key Mccallumney Other [facility] Other 05-07-2023 13:15-0400 SaO2% (BldA) [Mass fraction] 98 % Key Patel Other [facility] Other 11-08-2022 13:50-0400 Body height 167.64 cm Chase Saldana Other [facility] Other 11-08-2022 13:50-0400 Body mass index (BMI) [Ratio] 35.51 kg/m2 Chase Saldana Other [facility] Other 11-08-2022 13:50-0400 Body weight 99.79 kg Chase Saldana Other [facility] Other 04-26-2022 11:55-0400 Body height 167.64 cm Autumn Donell Other [facility] Other 04-26-2022 11:55-0400 Body mass index (BMI) [Ratio] 35.02 kg/m2 Autumn Donell Other [facility] Other 04-26-2022 11:55-0400 Body temperature 97.7 [degF] Autumn Marley Other [facility] Other 04-26-2022 11:55-0400 Body weight 98.43 kg Autumn Donell Other [facility] Other 04-26-2022 11:55-0400 Diastolic blood pressure 82 mm[Hg] Autumn Marley Other [facility] Other 04-26-2022 11:55-0400 Respiratory rate 18 /min Autumn Marley Other [facility] Other 04-26-2022 11:55-0400 SaO2% (BldA) [Mass fraction] 98 % Autumn Marley Other [facility] Other 04-26-2022 11:55-0400 Systolic blood pressure 122 mm[Hg] Autumn Marley Other [facility] Other 04-23-2022 10:50-0400 Body height 167.64 cm Autumn Marley Other [facility] Other 04-23-2022 10:50-0400 Body mass index (BMI) [Ratio] 33.89 kg/m2 Autumn Marley Other [facility] Other 04-23-2022 10:50-0400 Body temperature 97.8 [degF] Autumn Marley Other [facility] Other 04-23-2022 10:50-0400 Body weight 95.26 kg Autumn Marley Other [facility] Other 04-23-2022 10:50-0400 Respiratory rate 18 /min Autumn Marley Other [facility] Other 04-23-2022 10:50-0400 SaO2% (BldA) [Mass fraction] 98 % Autumn Marley Other [facility] Other 03-27-2022 10:15-0400 Body height 167.64 cm Deb Simon Other [facility] Other 03-27-2022 10:15-0400 Body mass index (BMI) [Ratio] 34.38 kg/m2 Deb Simon Other [facility] Other 03-27-2022 10:15-0400 Body temperature 97.4 [degF] Deb Simon Other [facility] Other 03-27-2022 10:15-0400 Body weight 96.62 kg Deb Simon Other [facility] Other 03-27-2022 10:15-0400 Respiratory rate 18 /min Deb Simon Other [facility] Other 03-27-2022 10:15-0400 SaO2% (BldA) [Mass fraction] 96 % Deb Simon Other [facility] Other 04-05-2021 16:10-0400 Body height 167.64 cm Lucinda Naomi Other [facility] Other 04-05-2021 16:10-0400 Body mass index (BMI) [Ratio] 33.25 kg/m2 Lucinda Naomi Other [facility] Other 04-05-2021 16:10-0400 Body temperature 97.3 [degF] Lucinda Naomi Other [facility] Other 04-05-2021 16:10-0400 Body weight 93.44 kg Lucinda Naomi Other [facility] Other 04-05-2021 16:10-0400 Diastolic blood pressure 74 mm[Hg] Lucinda Salgado Other [facility] Other 04-05-2021 16:10-0400 Respiratory rate 18 /min Lucinda Salgado Other [facility] Other 04-05-2021 16:10-0400 SaO2% (BldA) [Mass fraction] 99 % Lucinda Salgado Other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
--- NOTE | 2023-10-13 20:50 | PC.NURSE ---
small red raised bump to left labia, no drainage and exam complete by SONJA MARES at bedside with this nurse at bedside.
--- NOTE | 2023-10-13 21:03 | ED_ITS ---
HPI HPI - General Adult General Chief complaint: Skin/Abscess/Foreign Body Stated complaint: POSS VAGINAL CYST Time Seen by Provider: 10/13/23 18:15 Source: patient Mode of arrival: walk-in History of Present Illness HPI narrative: Patient is a 28-year-old female who presents to the emergency department for 2- day history of redness and pain to a cystic area that has been present on her left labia for the last year. She states she has never had any issues with the area and it has not been evaluated by regulatory submissions associate because she does not have one. She states in the last 2 days she feels as though it has become more swollen and firm as well as painful. No drainage. No other associated symptoms. Related Data Previous Rx's ?Medication ?Instructions ?Recorded clindamycin HCl 150 mg capsule 300 mg (2 x 150 mg) PO Q6H 10 days 09/14/23 #80 caps ketorolac 10 mg tablet 10 mg PO TID PRN pain #10 tabs 09/14/23 ondansetron 4 mg disintegrating 4 mg PO Q6H PRN nausea and 09/14/23 tablet vomiting #12 tabs cefdinir 300 mg capsule 300 mg PO BID 10 days #20 caps 10/13/23 doxycycline hyclate 100 mg tablet 100 mg PO BID 10 days #20 tabs 10/13/23 hydrocodone 5 mg-acetaminophen 325 1 tab PO Q6H PRN pain 3 days #12 10/13/23 mg tablet tabs Allergies Allergy/AdvReac Type Severity Reaction Status Date / Time Penicillins Allergy Mild Hives Verified 09/14/23 20:13 latex Allergy Unknown Verified 09/14/23 20:13 ibuprofen AdvReac Mild Verified 09/14/23 20:13 Sulfa (Sulfonamide AdvReac Mild Hives Verified 09/14/23 20:13 Antibiotics) Opioid HPI Opioid Management Most Recent Opioid Data: Last Pain Scale 7 04/21/23 20:12 Review of Systems ROS Constitutional Denies: fever or chills Ears, nose, mouth, and throat Denies: throat pain or nasal congestion Respiratory Denies: shortness of breath or cough Gastrointestinal Denies: abdominal pain, nausea or vomiting Musculoskeletal Denies: back pain Integumentary/Breast Denies: rash Neurological Denies: headache Hematologic/Lymphatic Denies: easy bruising or easy bleeding PFSH PFSH Social History Smoking status: Former smoker Exam Narrative Exam Narrative: Gen.: Awake, alert, in no distress Head: Normocephalic, atraumatic ENT: Moist mucous membranes Respiratory: No respiratory distress Gastrointestinal: Abdomen is soft, nondistended and nontender to palpation : Left labia with a 0.5 cm raised, firm cystic area, mildly red and tender. No fluctuance or extension to the vulva. No drainage noted. Extremities: Moves extremities equally Psych: Normal mood and affect Neuro: No focal neuro deficit Skin: Warm, dry, intact Constitutional Vital Signs, click to edit/add: Last Vital Signs Temp 98.1 F 10/13/23 18:08 Pulse 113 H 10/13/23 18:08 Resp 16 10/13/23 18:08 BP 133/96 H 10/13/23 18:08 Pulse Ox 98 10/13/23 18:08 Course Vital Signs Vital signs: Vital Signs Temperature 98.1 F 10/13/23 18:08 Pulse Rate 113 H 10/13/23 18:08 Respiratory Rate 16 10/13/23 18:08 Blood Pressure 133/96 H 10/13/23 18:08 Pulse Oximetry 98 10/13/23 18:08 Temperature 98.1 F 10/13/23 18:08 Pulse Rate 113 H 10/13/23 18:08 Respiratory Rate 16 10/13/23 18:08 Blood Pressure 133/96 H 10/13/23 18:08 Pulse Oximetry 98 10/13/23 18:08 Medical Decision Making [facility] Narrative Medical decision making narrative: Exam is consistent with a small cystic area with secondary infection. Patient placed on cefdinir and doxycycline for home. Short course of analgesics given. She was encouraged to apply warm compresses and follow-up with gynecology. Return to the ER if symptoms change or worsen Medical Records Medical records reviewed: Yes I reviewed the patient's medical records Discharge Plan Discharge Stand Alone Forms: Portal Instructions Chief Complaint: Skin/Abscess/Foreign Body Clinical Impression: Cyst of vagina Patient Disposition: Home, Self-Care Time of Disposition Decision: 20:54 Condition: Good Prescriptions / Home Meds: New cefdinir 300 mg capsule 300 mg PO BID 10 Days Qty: 20 0RF hydrocodone-acetaminophen 5-325 mg tablet 1 tab PO Q6H PRN (Reason: pain) 3 Days Qty: 12 0RF Rx Instructions: DX: N94 doxycycline hyclate 100 mg tablet 100 mg PO BID 10 Days Qty: 20 0RF No Action clindamycin HCl 150 mg capsule 300 mg PO Q6H 10 Days Qty: 80 0RF ketorolac 10 mg tablet 10 mg PO TID PRN (Reason: pain) Qty: 10 0RF ondansetron 4 mg tablet,disintegrating 4 mg PO Q6H PRN (Reason: nausea and vomiting) Qty: 12 0RF Print Language: Maori Instructions: Cyst (ED) Referrals: Kan Mendoza DO [Physician] - 1 week Shaikh Langley MD [Primary Care Provider] - 1 week
[2023-10-13] MEDS: HYDROCODONE/ACET 5-325 MG TABLET 1 TAB PO (21:16)
[2023-10-13] MEDS: DOXYCYCLINE MONOHYDRATE 100 MG CAPSULE PO (21:16)
[2023-10-13] MEDS: CEFDINIR 300 MG CAPSULE PO (21:24)
== END 2023-10-13 21:27 | disposition home or self-care (01) ==
PROVIDERS: Emergency Provider Emergency Medicine; PCP Internal Medicine
DX: N89.8 Other specified noninflammatory disorders of vagina (principal); Z87.891 Personal history of nicotine dependence; Z79.899 Other long term (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 therapy
CPT/HCPCS: 99284

== ENCOUNTER 2023-10-31 15:39 | Outpatient (OUT) | payer MEDICAID, SELFPAY ==
[2023-10-31 16:00] LABS: Basophils Percent Auto 0.4 % (0.2-2.0); Eosinophils Absolute Auto 0.1 10^3/uL (0.0-0.7); Eosinophils Percent Auto 1.2 % (0.9-7.0); Hematocrit 37.2 % (36.0-48.0); Hemoglobin 12.1 g/dL (12.0-16.0); Immature Granulocytes Abs Auto 0.02 10^3/uL (0.00-0.03); Immature Granulocytes Pct Auto 0.3 % (0.0-0.5); Lymphocytes Absolute Auto 2.6 10^3/uL (1.2-3.8); Mean Corpuscular HGB Conc 32.5 g/dL (29.9-35.2); Mean Corpuscular Hemoglobin 28.6 pg (26.7-34.0); Mean Corpuscular Volume 87.9 fL (81.0-99.0); Monocytes Absolute Auto 0.4 10^3/uL (0.3-0.8); Monocytes Percent Auto 4.8 % (1.7-12.0); Neutrophils Absolute Auto 4.4 10^3/uL (1.4-6.5); Neutrophils Percent Auto 58.3 % (43.0-75.0); Platelet Count 319 10^3/uL (150-450); Red Blood Count 4.23 10^6/uL (4.20-5.40); Red Cell Distribution Width 12.5 % (11.0-15.0); White Blood Count 7.5 10^3/uL (4.0-11.0)
[2023-10-31 17:12] LABS: Alanine Aminotransferase 36 U/L (14-59); Albumin Globulin Ratio 0.8; Albumin Level 3.4 g/dL (3.4-5.0); Alkaline Phosphatase 134 U/L (46-116); Anion Gap 16.2; Aspartate Amino Transferase 23 U/L (15-37); Bilirubin Total 0.2 mg/dL (0.2-1.0); Calcium 9.4 mg/dL (8.5-10.1); Carbon Dioxide 23.3 mmol/L (21.0-32.0); Chloride 104 mmol/L (98-107); Chol HDL Ratio 5.9; Cholesterol 183 mg/dL (<=200); Estimated Average Glucose 97 mg/dL; Estimated GFR (African America >60 (>=60); Estimated GFR (Non-African Ame >60 (>=60); Globulin 4.3 g/dL; Glucose 116 mg/dL (74-106); HDL Cholesterol 31 mg/dL (40-60); Potassium 3.5 mmol/L (3.5-5.1); Sodium 140 mmol/L (136-145); Total Protein 7.7 g/dL (6.4-8.2); Triglycerides 131 mg/dL (<=150); VLDL CHOLESTEROL 26.2 mg/dL
[2023-10-31 17:13] LABS: BUN Creatinine Ratio 6.3
== END 2023-10-31 15:40 | disposition home or self-care (01) ==
LOC: LAB 15:40
PROVIDERS: PCP Internal Medicine; Visit Provider Internal Medicine
DX: G43.E09 Chronic migraine with aura, not intractable, without status migrainosus (principal); Z13.220 Encounter for screening for lipoid disorders; Z13.1 Encounter for screening for diabetes mellitus; E66.01 Morbid (severe) obesity due to excess calories; F41.1 Generalized anxiety disorder; F33.2 Major depressive disorder, recurrent severe without psychotic features
CPT/HCPCS: 36415; 80053; 80061; 83036; 85025

== ENCOUNTER 2023-11-26 21:00 | Emergency (ER) | payer MEDICAID, SELFPAY ==
[2023-11-26 21:09] VITALS: BP 130/70; PULSE 97; TEMP 37.2; O2SAT 99; BMI 34.7
--- NOTE | 2023-11-26 21:18 | ED.GENADUL1 ---
Documented by User: SONJA Downey 11/26/23 21:43 HPI HPI - General Adult General Chief complaint: Anxiety Stated complaint: Chest Pain Time Seen by Provider: 11/26/23 21:01 Source: patient Mode of arrival: walk-in History of Present Illness HPI narrative: Patient is a 28-year-old female well-known to this emergency department with a history of chronic anxiety who presents for feeling as though she is having a panic attack. She was seen at the [facility] emergency department yesterday, she states she believes she is having seizure activity because she is very shaky. She was seen by myself in May of last year for exactly the same complaint when she was referred to the emergency department by her therapist for seizures associated with her anxiety. She has not had any falls or injuries, no loss of consciousness, fevers, chills, vomiting. She is not concerned for . She states today she is more anxious and feels as though she is having a panic attack but has not had any seizure activity today. She takes Trileptal which was prescribed by a psychiatrist for her. Her PCP is in process of referring her to a neurologist. She essentially does not have any new focal medical complaints tonight other than a continuation of her anxiety that she does not feel was addressed at [facility] emergency room yesterday. Related Data Home Medications ?Medication ?Instructions ?Recorded ?Confirmed oxcarbazepine 300 mg tablet 300 mg PO BID 11/26/23 11/26/23 trazodone 50 mg tablet 50 mg PO .nightly PRN sleep 11/26/23 11/26/23 Allergies Allergy/AdvReac Type Severity Reaction Status Date / Time Penicillins Allergy Mild Hives Verified 11/26/23 21:06 latex Allergy Unknown Verified 11/26/23 21:06 ibuprofen AdvReac Mild Verified 11/26/23 21:06 Sulfa (Sulfonamide AdvReac Mild Hives Verified 11/26/23 21:06 Antibiotics) Opioid HPI Opioid Management Most Recent Opioid Data: Last Pain Scale 7 04/21/23 20:12 Review of Systems ROS Constitutional Denies: fever or chills Ears, nose, mouth, and throat Reports: nasal congestion; Denies: throat pain Cardiovascular Reports: chest pain Respiratory Reports: shortness of breath and cough Gastrointestinal Denies: nausea, vomiting or diarrhea Musculoskeletal Denies: back pain or neck pain Integumentary/Breast Denies: rash Neurological Reports: seizure-like activity; Denies: headache Hematologic/Lymphatic Denies: easy bruising or easy bleeding PFSH [facility] Social History Smoking status: Former smoker Exam Narrative Exam Narrative: Gen.: Awake, alert, in no distress Head: Normocephalic, atraumatic ENT: Moist mucous membranes Respiratory: No respiratory distress, lungs clear bilaterally Cardio: Regular rate and rhythm Extremities: Moves extremities equally, no injuries noted Psych: Anxious, shaky Neuro: No focal neuro deficit; Awake and alert, appropriate. No focal neurodeficits. No photophobia Skin: Warm, dry, intact Constitutional Vital Signs, click to edit/add: Last Vital Signs Temp 99.0 F 11/26/23 21:09 Pulse 97 H 11/26/23 21:09 Resp 18 11/26/23 21:09 BP 130/70 11/26/23 21:09 Pulse Ox 99 11/26/23 21:09 O2 Del Method Room Air 11/26/23 21:09 Course Vital Signs Vital signs: Vital Signs Temperature 99.0 F 11/26/23 21:09 Pulse Rate 97 H 11/26/23 21:09 Respiratory Rate 18 11/26/23 21:09 Blood Pressure 130/70 11/26/23 21:09 Pulse Oximetry 99 11/26/23 21:09 Oxygen Delivery Method Room Air 11/26/23 21:09 Temperature 99.0 F 11/26/23 21:09 Pulse Rate 97 H 11/26/23 21:09 Respiratory Rate 18 11/26/23 21:09 Blood Pressure 130/70 11/26/23 21:09 Pulse Oximetry 99 11/26/23 21:09 Oxygen Delivery Method Room Air 11/26/23 21:09 Medical Decision Making [facility] Narrative Medical decision making narrative: 2144: IV was placed, patient was ordered to have IV fluids and Ativan. Labs including D-dimer are pending at this time and imaging of the chest will be determined by this lab value. Patient with stable vital signs, normal EKG at this time. Case is turned over to attending physician for labs, imaging of the chest and disposition. Medical Records Medical records reviewed: Yes I reviewed the patient's medical records Lab Data Lab results reviewed: Yes I reviewed the patient's lab results Labs: Lab Results 11/26/23 11/26/23 Range/Units 21:32 22:40 WBC 13.4 H (4.0-11.0) 10^3/uL RBC 4.40 (4.20-5.40) 10^6/uL Hgb 12.5 (12.0-16.0) g/dL Hct 37.2 (36.0-48.0) % MCV 84.5 (81.0-99.0) fL MCH 28.4 (26.7-34.0) pg MCHC 33.6 (29.9-35.2) g/dL RDW 12.5 (11.0-15.0) % Plt Count 368 (150-450) 10^3/uL MPV 8.9 L (9.5-13.5) fL Neut % (Auto) 64.2 (43.0-75.0) % Lymph % (Auto) 24.9 (20.5-60.0) % [place] % (Auto) 6.4 (1.7-12.0) % Eos % (Auto) 4.0 (0.9-7.0) % Baso % (Auto) 0.4 (0.2-2.0) % Neut # (Auto) 8.6 H (1.4-6.5) 10^3/uL Lymph # (Auto) 3.3 (1.2-3.8) 10^3/uL [place] # (Auto) 0.9 H (0.3-0.8) 10^3/uL Eos # (Auto) 0.5 (0.0-0.7) 10^3/uL Baso # (Auto) 0.1 (0.0-0.1) 10^3/uL Abs Immat Gran (auto) 0.02 (0.00-0.03) 10^3/uL Imm/Tot Granulo (auto) 0.1 (0.0-0.5) % D-Dimer 0.31 (<=0.59) mg/L FEU Sodium 137 (136-145) mmol/L Potassium 3.0 L (3.5-5.1) mmol/L Chloride 102 (98-107) mmol/L Carbon Dioxide 23.1 (21.0-32.0) mmol/L Anion Gap 14.9 BUN 5.0 L (7.0-18.0) mg/dL Creatinine 0.84 (0.55-1.02) mg/dL Est GFR ( Amer) >60 (>=60) Est GFR (Non-Af Amer) >60 (>=60) BUN/Creatinine Ratio 6.0 Glucose 105 (74-106) mg/dL Lactate 2.4 H* 1.2 (0.4-2.0) mmol/L Calcium 9.4 (8.5-10.1) mg/dL Magnesium 2.1 (1.8-2.4) mg/dL Total Bilirubin 0.3 (0.2-1.0) mg/dL AST 32 (15-37) U/L ALT 58 (14-59) U/L Alkaline Phosphatase 147 H (46-116) U/L Troponin I High Sens 4.0 (4.0-51.3) pg/mL Total Protein 7.8 (6.4-8.2) g/dL Albumin 3.5 (3.4-5.0) g/dL Globulin 4.3 g/dL Albumin/Globulin Ratio 0.8 Serum HCG, Qual Negative (NEGATIVE) ECG Data Attestation: I personally reviewed and interpreted this ECG as follows: (Normal sinus rhythm at a rate of 98, no acute ST elevation or ectopy. EKG reviewed by attending physician) Discharge Plan Discharge Stand Alone Forms: Portal Instructions Chief Complaint: Anxiety Clinical Impression: Anxiety Patient Disposition: Home, Self-Care Prescriptions / Home Meds: No Action trazodone 50 mg tablet 50 mg PO .nightly PRN (Reason: sleep) oxcarbazepine 300 mg tablet 300 mg PO BID Print Language: Malawian Instructions: Anxiety (ED) Additional Instructions: follow up with Dr Langley in the next couple of days Referrals: Shaikh Langley MD [Primary Care Provider] - 1 week Documented by User: Rocco Yin MD 11/26/23 23:40 HPI HPI - General Adult General Chief complaint: Anxiety Stated complaint: Chest Pain Time Seen by Provider: 11/26/23 21:01 Related Data Home Medications ?Medication ?Instructions ?Recorded ?Confirmed oxcarbazepine 300 mg tablet 300 mg PO BID 11/26/23 11/26/23 trazodone 50 mg tablet 50 mg PO .nightly PRN sleep 11/26/23 11/26/23 Allergies Allergy/AdvReac Type Severity Reaction Status Date / Time Penicillins Allergy Mild Hives Verified 11/26/23 21:06 latex Allergy Unknown Verified 11/26/23 21:06 ibuprofen AdvReac Mild Verified 11/26/23 21:06 Sulfa (Sulfonamide AdvReac Mild Hives Verified 11/26/23 21:06 Antibiotics) Opioid HPI Opioid Management Most Recent Opioid Data: Last Pain Scale 7 04/21/23 20:12 PFSH PFSH Social History Smoking status: Former smoker Exam Constitutional Vital Signs, click to edit/add: Last Vital Signs Temp 99.0 F 11/26/23 21:09 Pulse 97 H 11/26/23 21:09 Resp 18 11/26/23 21:09 BP 130/70 11/26/23 21:09 Pulse Ox 99 11/26/23 21:09 O2 Del Method Room Air 11/26/23 21:09 Course Vital Signs Vital signs: Vital Signs Temperature 99.0 F 11/26/23 21:09 Pulse Rate 97 H 11/26/23 21:09 Respiratory Rate 18 11/26/23 21:09 Blood Pressure 130/70 11/26/23 21:09 Pulse Oximetry 99 11/26/23 21:09 Oxygen Delivery Method Room Air 11/26/23 21:09 Temperature 99.0 F 11/26/23 21:09 Pulse Rate 97 H 11/26/23 21:09 Respiratory Rate 18 11/26/23 21:09 Blood Pressure 130/70 11/26/23 21:09 Pulse Oximetry 99 11/26/23 21:09 Oxygen Delivery Method Room Air 11/26/23 21:09 Medical Decision Making MDM Narrative Medical decision making narrative: 2144: IV was placed, patient was ordered to have IV fluids and Ativan. Labs including D-dimer are pending at this time and imaging of the chest will be determined by this lab value. Patient with stable vital signs, normal EKG at this time. Case is turned over to attending physician for labs, imaging of the chest and disposition. care transferred at change of shift. repeat lactic normal. d-dimer neg. Patient is resting comfortably and in no distress. Discharged home to follow up with her doctor Lab Data Labs: Lab Results 11/26/23 11/26/23 Range/Units 21:32 22:40 WBC 13.4 H (4.0-11.0) 10^3/uL RBC 4.40 (4.20-5.40) 10^6/uL Hgb 12.5 (12.0-16.0) g/dL Hct 37.2 (36.0-48.0) % MCV 84.5 (81.0-99.0) fL MCH 28.4 (26.7-34.0) pg MCHC 33.6 (29.9-35.2) g/dL RDW 12.5 (11.0-15.0) % Plt Count 368 (150-450) 10^3/uL MPV 8.9 L (9.5-13.5) fL Neut % (Auto) 64.2 (43.0-75.0) % Lymph % (Auto) 24.9 (20.5-60.0) % [place] % (Auto) 6.4 (1.7-12.0) % Eos % (Auto) 4.0 (0.9-7.0) % Baso % (Auto) 0.4 (0.2-2.0) % Neut # (Auto) 8.6 H (1.4-6.5) 10^3/uL Lymph # (Auto) 3.3 (1.2-3.8) 10^3/uL [place] # (Auto) 0.9 H (0.3-0.8) 10^3/uL Eos # (Auto) 0.5 (0.0-0.7) 10^3/uL Baso # (Auto) 0.1 (0.0-0.1) 10^3/uL Abs Immat Gran (auto) 0.02 (0.00-0.03) 10^3/uL Imm/Tot Granulo (auto) 0.1 (0.0-0.5) % D-Dimer 0.31 (<=0.59) mg/L FEU Sodium 137 (136-145) mmol/L Potassium 3.0 L (3.5-5.1) mmol/L Chloride 102 (98-107) mmol/L Carbon Dioxide 23.1 (21.0-32.0) mmol/L Anion Gap 14.9 BUN 5.0 L (7.0-18.0) mg/dL Creatinine 0.84 (0.55-1.02) mg/dL Est GFR ( Amer) >60 (>=60) Est GFR (Non-Af Amer) >60 (>=60) BUN/Creatinine Ratio 6.0 Glucose 105 (74-106) mg/dL Lactate 2.4 H* 1.2 (0.4-2.0) mmol/L Calcium 9.4 (8.5-10.1) mg/dL Magnesium 2.1 (1.8-2.4) mg/dL Total Bilirubin 0.3 (0.2-1.0) mg/dL AST 32 (15-37) U/L ALT 58 (14-59) U/L Alkaline Phosphatase 147 H (46-116) U/L Troponin I High Sens 4.0 (4.0-51.3) pg/mL Total Protein 7.8 (6.4-8.2) g/dL Albumin 3.5 (3.4-5.0) g/dL Globulin 4.3 g/dL Albumin/Globulin Ratio 0.8 Serum HCG, Qual Negative (NEGATIVE) Discharge Plan Discharge Stand Alone Forms: Portal Instructions Chief Complaint: Anxiety Clinical Impression: Anxiety Patient Disposition: Home, Self-Care Prescriptions / Home Meds: No Action trazodone 50 mg tablet 50 mg PO .nightly PRN (Reason: sleep) oxcarbazepine 300 mg tablet 300 mg PO BID Print Language: Malawian Instructions: Anxiety (ED) Additional Instructions: follow up with Dr Langley in the next couple of days Referrals: Shaikh Langley MD [Primary Care Provider] - 1 week
[2023-11-26 21:42] LABS: Basophils Absolute Auto 0.1 10^3/uL (0.0-0.1); Basophils Percent Auto 0.4 % (0.2-2.0); Eosinophils Absolute Auto 0.5 10^3/uL (0.0-0.7); Hematocrit 37.2 % (36.0-48.0); Hemoglobin 12.5 g/dL (12.0-16.0); Immature Granulocytes Abs Auto 0.02 10^3/uL (0.00-0.03); Immature Granulocytes Pct Auto 0.1 % (0.0-0.5); Lymphocytes Absolute Auto 3.3 10^3/uL (1.2-3.8); Lymphocytes Percent Auto 24.9 % (20.5-60.0); Mean Corpuscular HGB Conc 33.6 g/dL (29.9-35.2); Mean Corpuscular Hemoglobin 28.4 pg (26.7-34.0); Mean Corpuscular Volume 84.5 fL (81.0-99.0); Mean Platelet Volume 8.9 fL (9.5-13.5); Monocytes Absolute Auto 0.9 10^3/uL (0.3-0.8); Monocytes Percent Auto 6.4 % (1.7-12.0); Neutrophils Absolute Auto 8.6 10^3/uL (1.4-6.5); Neutrophils Percent Auto 64.2 % (43.0-75.0); Platelet Count 368 10^3/uL (150-450); Red Cell Distribution Width 12.5 % (11.0-15.0); White Blood Count 13.4 10^3/uL (4.0-11.0)
[2023-11-26] MEDS: 0.9 % SODIUM CHLORIDE 1,000 ML 1000 ML IV (21:42)
[2023-11-26] MEDS: LORAZEPAM 2 MG/ML VIAL 1 MG IV (21:42)
--- OUTSIDE RECORDS SUMMARY | 2023-11-26 21:45 | XMS_ITS ---
Author Name Auto Generated Organization OHIP Support Name Relationship Address Phone JONNY TRAMMELL Next of Kin [address] [place] [address] + JOSÉ MANUEL ENGLE Next of Kin Unknown + JONNY CAMPOVERDE Next of Kin Unknown Unavailabl [place] [address] [phone] ONIEL SNEHAL Next of Kin Unknown + SNEHAL ENGLE Next of Kin Unknown + JONNY TRAMMELL Next of Kin [address] [facility] [address] + JOSÉ MANUEL ENGLE Next of Kin Unknown + JONNY CAMPOVERDE Next of Kin Unknown Unavailabl e SNEHAL ENGLE Next of Kin Unknown + SNEHAL ENGLE Next of Kin Unknown + Snehal Engle Next of Kin Unknown + JONNY TRAMMELL Next of Kin [address] [facility] [place] [address] + JOSÉ MANUEL ENGLE Next of Kin Unknown + JONNY TRAMMELL Next of Kin [address] [place] [address] + JOSÉ MANUEL ENGLE Next of Kin Unknown + JONNY CAMPOVERDE Next of Kin Unknown Unavailabl e WEST, SNEHAL Next of Kin Unknown + WEST, SNEHAL Next of Kin Unknown + LIEJONNY ISLAS Next of Kin Unknown Unavailabl e WEST, SNEHAL Next of Kin Unknown + WEST, SNEHAL Next of Kin Unknown + LIEBOJONNY KAYE Next of Kin Unknown Unavailabl e WEST, SNEHAL Next of Kin Unknown + WEST, SNEHAL Next of Kin Unknown + LIEBOJONNY KAYE Next of Kin Unknown Unavailabl e WEST, SNEHAL Next of Kin Unknown + WEST, SNEHAL Next of Kin Unknown + LIEBOJONNY KAYE Next of Kin Unknown Unavailabl e WEST, SNEHAL Next of Kin Unknown + WEST, SNEHAL Next of Kin Unknown + LIEJONNY ISLAS Next of Kin Unknown Unavailabl e WEST, SNEHAL Next of Kin Unknown + WEST, SNEHAL Next of Kin Unknown + JONNY CAMPOVERDE Next of Kin Unknown Unavailabl e NOT [place] [address] +[phone] ONIEL, SNEHAL Next of Kin Unknown + WEST, SNEHAL Next of Kin Unknown + FRANCISCO JENNINGS Next of Kin Unknown Unavailable NOT GIV[place] [address] +[phone] WEST, SNEHAL Next of Kin Unknown + WEST, SNEHAL Next of Kin Unknown + JOSÉ MANUEL ENGLE Next of Kin [address] [place] [address] + Care Team Providers 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 Name Role Phone SHAIKH PATTERSON Primary Care Unavailable SHAIKH PATTERSON Primary Care Unavailable SHAIKH PATTERSON Primary Care Unavailable MARTELL OTERO Attending Unavailable MARTELL OTERO Referring Unavailable SHAIKH PATTERSON Primary Care Unavailable MARTELL OTERO Attending Unavailable OTERO, MARTELL W Referring Unavailable FAWWAD, COLÓN Primary Care Unavailable MARTELL OTERO Attending Unavailable OTERO, MARTELL W Referring Unavailable FAWWAD, [facility] Primary Care Unavailable OTEROMARTELL ROSENBERG Attending Unavailable OTERO, MARTELL W Referring Unavailable FAWWAD, COLÓN Primary Care Unavailable FAWWAD, COLÓN Primary Care Unavailable CHETAN HEBERT Attending Unavailable FAWDCD, [facility] Primary Care Unavailable ALICE SHANE Attending Unavailable FAWWAD, [facility] Primary Care Unavailable HALEIGH CHAVEZ Attending Unavailable Bernard, Gerald Attending Unavailab le Bernard Gerald Admitting Unavailab le NON STAFF Primary Care Unavailable FAWWAD, COLÓN H Attending Unavailable FAWWAD, COLÓN H Consulting Unavailable FAWWAD, COLÓN H Primary Care Unavailable FAWWAD, COLÓN H Admitting Unavailable FAWWAD, COLÓN Primary Care Unavailable FADOCD, COLÓN Attending Unavailable JOHN HADDAD Attending Unavailable MARY WIGGINS Attending Unavailable FAWWAD, CLOÓN Attending Unavailable PROBLEMS DATE TYPE CONDITION / CODE ATTENDING STATUS [facility] 11/25/2023 Unknown Dyspnea, unspecified / R06.00(ICD-10) HALEIGH CHAVEZ [facility] 11/25/2023 Unknown Shortness of breath / R06.02(ICD-10) HALEIGH CHAVEZ [facility] 11/25/2023 Unknown Cough / FREETEXT(AOF) HALEIGH CHAVEZ [facility] 11/16/2023 Unknown Rash and other nonspecific skin eruption / R21(ICD-10) ALICE SHANE [facility] 11/16/2023 Unknown Rash / FREETEXT(AOF) ALICE SHANE [facility] 10/09/2023 Unknown Foreign body in left ear, initial encounter / T16.2XXA(ICD-10) CHETAN HEBERT [facility] 10/09/2023 Unknown Foreign Body in Ear / FREETEXT(AOF) CHETAN HEBERT [facility] 09/21/2023 Unknown Sprain of unspecified ligament of left ankle, initial encounter / S93.402A(ICD-10) OTEROMARTELL ROSENBERG [employer] [facility] 09/21/2023 Unknown Ankle Injury / FREETEXT(AOF) SHANNA MARTELL Betancourt [facility] 08/27/2023 Unknown Headache, unspecified / R51.9(ICD-10) NA [facility] 08/27/2023 Unknown Headache / FREETEXT(AOF) [facility] 08/27/2023 Unknown Panic Attack / FREETEXT(AOF) [facility] 07/09/2023 Unknown COVID-19 / U07.1(ICD-10) [facility] 07/09/2023 Unknown Cold Like Sympto ms / FREETEXT(AOF) [facility] 07/09/2023 Unknown loss of smell, cough, body aches / UNK(Unknown) [facility] 12/05/2022 Working Diagnosis UNS SYMPTOMS S IGNS INVLV SYSTEM / R39.9(ICD-10) [facility] 12/05/2022 Admitting Diagnosis UNS SYMPTOMS SIGNS INVLV SYSTEM / R39.9(ICD-10) [facility] 12/05/2022 Principal Diagnosis UNS SYMPTOMS SIGNS INVLV SYSTEM / R39.9(ICD-10) [facility] PROCEDURES No Procedure Records Found RESULTS SARS/FLU A+B/RSV BY NAAT/MOLECULAR Observed: 11/25/2023 11:17 PM Status: COMPLETED Source: [facility] FLU A PCR Negative (qualifier value) FLU B PCR Negative (qualifier value) RSV by PCR Negative (qualifier value) SARS CoV 2 Not detected (qualifier value) NOTE The Xpert Xpress SARS-CoV-2/Flu/RSV [...] operators who are performing tests using either GeneqLearning DX or Actifi systems and is limited to laboratories that [...] specimen repeat. Fact Sheet for Healthcare Providers: https://www.fda.gov/media/019619/download Fact Sheet for Patients: https://www.fda.gov/media/455778/download Performed By: #### COVFLR ## ## [facility] ([id number]) [address] [place] [address], [place] [address] XR CHEST 2 VWS Observed: 11/25/2023 10:12 PM Status: COMPLETED Source: [employer] XR CHEST 2 VWS Procedure: Chest x-ray performed Number of views:1 History:Shortness of breath Comparison:05/27/2023 Findings: The heart and lungs show no acute findings, and the mediastinum and santhosh are grossly negative . Impression: 1. No acute change. Finalized by Sridhar Cook MD on 11/25/2023 10:14 PM BASIC METABOLIC PANL Collected: 12:27 AM Status: COMPLETED Source: [facility] REPOSITORY TYPE CODE TESTS RESULT OUT OF RANGE REFERENCE UNITS LAB NA(LOINC) SODIUM 136 134-146 mmol/L LAB K(LOINC) POTASSIUM 2.9 Low 3.5-5.0 mmol/L LAB CL(LOINC) CHLORIDE 103 98-109 mmol/L LAB CO2(LOINC) CARBON DIOXIDE 20 Low 22-32 mmol/L LAB AGAP(LOINC) ANION GAP 13 5-15 mmol/L LAB BUN(LOINC) BLOOD UREA NITROGEN 7 5-23 mg/dL LAB CRET(LOINC) CREATININE 0.69 0.40-1.00 mg/dL Result Comment: METHOD TRACE ABLE TO IDMS STANDARD LAB GLU(LOINC) GLUCOSE 95 65-99 mg/dL LAB CA(LOINC) CALCIUM 9.0 8.5-10.5 mg/dL LAB EGFR(LOINC) eGFR (CKD-EPI) NON-RACE DEPENDENT >90 >59 ml/min/1. 73sq.m Result Comment: Reported eGFR is based on the CKD-EPI 2020 equation that does not use a race coefficient. Performed By: #### BMP #### [facility] ([id number]) [address] [place] [address], [place] [address] XR FOOT LT MIN 3 VWS Observed: 11:45 PM Status: COMPLETED Source: [facility] REPOSIT[facility] XR FOOT LT MIN 3 VWS XR FOOT LT MIN 3 VWS: 09/21/2023 [...] Ghada Loya MD on 09/22/2023 12:07 AM XR TIBIA FIBULA LT MIN 2 VWS Observed: 09/21/2023 11:45 PM Status: COMPLETED Source: [facility] XR TIBIA FIBULA LT MIN 2 VWS [...] Ghada Loya MD on 09/22/2023 12:09 AM XR SPINE LUMBAR 2 OR 3 VWS Observed: 03/2024 11:45 PM Status: COMPLETED Source: [employer] XR SPINE LUMBAR 2 OR 3 VWS [...] Ghada Loya MD on 09/22/2023 12:10 AM URINE NURSING Collected: 03/2024 11:33 PM Status: COMPLETED Source: [employer] REPOSITORY TYPE CODE TESTS RESULT OUT OF RANGE REFERENCE UNITS LAB NUCG(LOINC) URINE NURSING Negative (qualifier value) NEG Performed By: #### [id number] ## ## [facility] ([id number]) [address] [place] [address], [place] [address] SARS/FLU A+B/RSV BY NAAT/MOLECULAR Observed: 07/09/2023 2:51 PM Status: COMPLETED Source: [employer] FLU A PCR Negative (qualifier value) FLU [...] operators who are performing tests using either GeneXWifinity Technology DX or GeneTopio systems and is limited to laboratories that [...] specimen repeat. Fact Sheet for Healthcare Providers: https://www.fda.gov/media/396363/download Fact Sheet for Patients: https://www.fda.gov/media/559239/download Performed By: #### COVFLR ## ## [facility] ([id number]) [address] [place] [address], [place] [address] PROVIDER LETTER Observed: 02/25/2023 12:44 PM Status: F Source: [facility] REPOSITORY (Inserted Image. Unable to d isplay) February 25, 2023 VERNELL CARMEN [address] [place] [id number] : 1995 Dear Vernell , We have been trying to reach you with no success. It is important that you return our call regarding your referral to our office by Jennifer upon receiving this letter. Also, at the time of your call, please provide us with your current information. Thank you for your prompt attention to this matter. Sincerely, [facility] [phone] PHYSICIAN REFERRAL Observed: 02/19/2023 8:23 AM Status: F Source: [facility] REPOSITORY [id number]:127 CULTURE URINE Observed: 12/04/2022 6:15 PM Status: F Source: [facility] REPOSITORY Culture Observations: LIGHT GROWTH OF MIXED GENITAL CHAPITO. NO POTENTIAL PATHOGENS SEEN. Performed By: #### URCX #### [facility] [address] [place] [address] Dr. Katrin Ceja ALLERGIES DATE TYPE / CODE NAME / CODE REACTION SEVERITY SOURCE 05/07/2023 Drug Allergy/37143 8002(SNOMED CT) lactase/M669129918(RXNO RM) Vomiting [facility] 05/07/2023 Drug Allergy/43575 8002(SNOMED CT) sulfacetamide/K53719963 0(RXNORM) Hives [facility] 11/28/2022 DRUG INGREDI/64643 1003(SNOMED CT) DESVENLAFAXINE SUCCINATE [facility] 01/08/2022 Drug Class~Environ /535106877(SN OMED CT) ADHESIVE [facility] 04/24/2021 Drug Class~Environ /572057175(SN OMED CT) LATEX, NATURAL RUBBER Anaphylaxis High [facility] 06/07/2020 DRUG INGREDI/02107 1003(SNOMED CT) CLINDAMYCIN [facility] 07/22/2019 DRUG INGREDI~Envir on/517040692( SNOMED CT) LATEX Anaphylaxis High [facility] 12/04/2018 Drug Class/5526864 03(SNOMED CT) PENICILLINS Rash Low [facility] 09/20/2018 DRUG INGREDI/84713 1003(SNOMED CT) ESCITALOPRAM OXALATE [facility] 01/12/2018 DRUG INGREDI/85643 1003(SNOMED CT) LAMOTRIGINE Hives Med [facility] 11/24/2016 DRUG INGREDI/30216 1003(SNOMED CT) IBUPROFEN Nausea [facility] 11/24/2016 Drug Class/8149878 03(SNOMED CT) SULFA (SULFONAMIDE ANTIBIOTICS) Itching [facility] 12/29/2012 Drug Allergy/50800 8002(SNOMED CT) Sulfa(Sulfonamide Antibiotics)/491(RXNORM ) Itching Mild [facility] 12/29/2012 Drug Allergy/70450 8002(SNOMED CT) latex/8921(RXNORM) Rash Mild [facility] Drug Allergy/31138 8002(SNOMED CT) lactose/2432(RXNORM) Hives Severe [facility] Drug Allergy/39079 8002(SNOMED CT) penicillin/63456(RXNORM ) Hives Severe [facility] ENCOUNTERS ADMIT/DISCHARGE ACCOUNT NUMBER ADMITTING ENCOUNTER CLASS LOCATION SOURCE 11/26/2023/ 024 [id number] Ambulatory Building:NOM [facility] 11/25/2023/ 024 [id number] Emergency Building:PFM _EDRoom: 4Bed: 04 [facility] 11/21/2023/ 024 [id number] Ambulatory Building:P OD [facility] 11/16/2023/ 024 [id number] Emergency Building:PFM _EDRoom: 11Bed: 11 [facility] 11/15/2023 [id number] [facility] 10/30/2023/ 024 [id number] Ambulatory Building:NOM S BCP OB [facility] 10/15/2023/ 024 [id number] [facility] 10/09/2023/ 024 [id number] Emergency Building:PFM _EDRoom: 1Bed: 01 [facility] 09/21/2023/ 024 [id number] Emergency Building:PFM _XR [facility] 09/21/2023/ 024 [id number] Emergency Building:PFM _XR [facility] 09/21/2023/ 024 [id number] Emergency Building:PFM _XR [facility] 09/21/2023/ 024 [id number] Emergency Building:PFM _EDRoom: 13Bed: 13 [facility] 09/21/2023/ 024 [id number] Emergency Building:PFM _HPCXR [facility] 08/27/2023/ 024 [id number] Emergency Building:PFM _EDRoom: 6Bed: 06 [facility] 07/09/2023/ 023 [id number] Emergency Building:PFM _EDRoom: H1Bed: H1 [facility] 02/19/2023 [id number] Ambulatory [facility] DHBuilding:F [facility] 12/04/2022/ 023 [id number] SHAIKH Rosales PATTERSON Ambulatory H2Lidawbmp:L [facility] PAYERS ENCOUNTER GUARANTOR PAYER SUBSCRIBER SOURCE 11/26/2023 VERNELL MARTINEZB: [place] [address]Lew: (HP) Primary Insurance:[facility] MEDICAID [place]: [id number] Date:2022-08-15 VERNELL SANDHU: [id number] [place] [address] [facility] 11/25/2023 VERNELL STEVE: [place], [place] [address]Kmj: (HP) Primary Insurance:[facility] MEDICAIDPolicy Number: [id number] Date:2022-08-15 VERNELL NUÑEZ MARIOB: [id number] [place], [place] [address]Erh: (HP) [facility] 11/21/2023 VERNELL EVANSCARLIDOMINIQUEB: [place] [address]Cer: (HP) Primary Insurance:[facility] MEDICAID [place]: [id number] Date:2022-08-15 VERNELL Benjamin MICHELLEB: [id number] [place] [address] [facility] EP[facility] 11/16/2023 VERNELL NUÑEZ MARIOB: [address] [place] [address]Tjx: (HP) Primary Insurance:[facility] MEDICAIDPolicy Number: [id number] Date:2022-08-15 VERNELL NUÑEZ MARIOB: [id number] [place], [place] [address]Czi: (HP) [facility] 11/15/2023 Vernell Engle[address] [place] [address]Fdp: (HP) Primary Insurance:Self PayPolicy Number: Effective Date:2022-10-29 [facility]30/2023 VERNELL Benjamin POWER: [place] [address]Zlb: (HP) Primary Insurance:[facility] MEDICAID [place] Number: [id number] Date:2022-08-15 VERNELL Benjamin MARIOB: [id number] [place] [address] [facility] 10/15/2023 VERNELL Benjamin POWER: [place] [address]Cgh: (HP) Primary Insurance:[employer] MEDICAID [place] Number: [id number] Date:2022-08-15 VERNELL STEVE: [id number] [place] [address] [facility] 10/09/2023 VERNELL SANDHU: [place] [address]Ujy: (HP) Primary Insurance:[facility] MEDICAIDPolicy Number: [id number] Date:2022-08-15 VERNELL SANDHU: [id number] [place], [place] [address]Cwf: (HP) [facility] 09/21/2023 VERNELL SANDHU: [address] [place], [place] [address]Jwr: (HP) Primary Insurance:[facility] MEDICAIDPolicy Number: [id number] Date:2022-08-15 VERNELL SANDHU: [id number] [place], [place] [address]Cpx: (HP) (WP) [facility] 09/21/2023 VERNELL SANDHU: [address] [place], [place] [address]Hqe: (HP) Primary Insurance:[facility] MEDICAIDPolicy Number: [id number] Date:2022-08-15 VERNELL SANDHU: [id number] [place], [place] [address]Cqj: (HP) (WP) [facility] 09/21/2023 VERNELL SANDUH: [address] [place], [place] [address]Rrj: (HP) Primary Insurance:[facility] MEDICAIDPolicy Number: [id number] Date:2022-08-15 VERNELL NUÑEZ MICHELLEB: [id number] [place], [place] [address]Hxn: (HP) (WP) [facility] 09/21/2023 VERNELL SAVANNAH MICHELLEB: [address] [place], [place] [address]Tky: (HP) Primary Insurance:[facility] MEDICAIDPolicy Number: [id number] Date:2022-08-15 VERNELL NUÑEZ MICHELLEB: [id number] [place], [place] [address]Qkk: (HP) (WP) [facility] 09/21/2023 VERNELL SAVANNAH MICHELLEB: [address] [place], [place] [address]Hdq: (HP) Primary Insurance:[facility] MEDICAIDPolicy Number: [id number] Date:2022-08-15 VERNELL NUÑEZ MICHELLEB: [id number] [place], [place] [address]Noe: (HP) (WP) [facility] 08/27/2023 VERNELL SAVANNAH MICHELLEB: [address] [place], [place] [address]Iow: (HP) Primary Insurance:[facility] MEDICAIDPolicy Number: [id number] Date:2022-08-15 VERNELL NUÑEZ MICHELLEB: [id number] [place], [place] [address]Ssn: (HP) (WP) [facility] 07/09/2023 VERNELL SANDHU: [address] [place], [place] [address]Pjh: (HP) Primary Insurance:[facility] MEDICAIDPolicy Number: [id number] Date:2022-08-15 VERNELL SANDHU: [id number] [place], [place] [address]Taj: (HP) (WP) [facility] 12/04/2022 VERNELL SANDHU: [address] [place], [place] [address]Azm: (HP) Primary Insurance:[facility] MEDICAIDPolicy Number: [id number] Date:[id number]JVBMSLO[place] [address]EY: JENNIFER STEVE: [id number] [address] [facility]
[2023-11-26 21:54] LABS: HCG Qualitative NEGATIVE (NEGATIVE)
[2023-11-26 21:57] LABS: D Dimer 0.31 mg/L FEU (<=0.59)
[2023-11-26 22:00] LABS: Alanine Aminotransferase 58 U/L (14-59); Albumin Globulin Ratio 0.8; Albumin Level 3.5 g/dL (3.4-5.0); Alkaline Phosphatase 147 U/L (46-116); Anion Gap 14.9; Aspartate Amino Transferase 32 U/L (15-37); Bilirubin Total 0.3 mg/dL (0.2-1.0); Calcium 9.4 mg/dL (8.5-10.1); Carbon Dioxide 23.1 mmol/L (21.0-32.0); Chloride 102 mmol/L (98-107); Estimated GFR (African America >60 (>=60); Estimated GFR (Non-African Ame >60 (>=60); Globulin 4.3 g/dL; Glucose 105 mg/dL (74-106); Magnesium 2.1 mg/dL (1.8-2.4); Sodium 137 mmol/L (136-145); Total Protein 7.8 g/dL (6.4-8.2)
[2023-11-26 22:04] LABS: Lactate/Lactic Acid 2.4 mmol/L (0.4-2.0)
--- NOTE | 2023-11-26 22:44 | ECG_ITS ---
[facility] Test Date: 2023-11-26 Pat Name: VERNELL ENGLE Department: Room: - Gender: Female [employer]: : 1995 Requested By: SHAIKH LEONARDO Order Number: [id number] Reading MD: CALEB MARTINEZ Measurements Intervals [place] Rate: 98 P: 50 TN: 156 QRS: 90 QRSD: 88 T: 35 QT: 342 QTc: 397 Interpretive Statements 1100 Sinus rhythm 9110 normal ECG Compared to ECG 09/25/2021 23:39:11 Right-axis deviation no longer present Electronically Signed On 11-26-2023 22:48:23 EDT by CALEB MARTINEZ
[2023-11-26 23:08] LABS: Lactate/Lactic Acid 1.2 mmol/L (0.4-2.0)
[2023-11-26 23:45] VITALS: BP 132/82; PULSE 76; O2SAT 98
== END 2023-11-26 23:45 | disposition home or self-care (01) ==
PROVIDERS: Physician Assistant; Emergency Provider Internal Medicine; PCP Internal Medicine
DX: F41.9 Anxiety disorder, unspecified (principal); Z87.891 Personal history of nicotine dependence; R07.9 Chest pain, unspecified
CPT/HCPCS: 36415; 80053; 83605; 83735; 84484; 84703; 85025; 85378; 93005; 96374; 99285

== ENCOUNTER 2023-12-02 21:27 | Outpatient (REF) | payer MEDICAID, SELFPAY ==
--- OUTSIDE RECORDS SUMMARY | 2023-12-02 21:35 | XMS_ITS | CCD ---
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 Name Role Phone Alistair Max Unavailable Unavailable Stalter, Alistair Unavailable Unavailable SOLOMON WATTS G Unavailable Unavailable Stalter, Alistair Unavailable Unavailable Stalter, Alistair Unavailable Unavailable MAC SOLOMON Unavailable Unavailable Lucinda Salgado Unavailable Deb [...] PALACIOS Attending Unavailable KARAN PALACIOS Admitting Unavailable KRAAN PALACIOS Consulting Unavailable FAWWAD, COLNÓ H Primary Care Unavailable RIVER RODGERS Consulting Unavailable SHRUTI, DR PATRICK Goodson Consulting Unavailable SHRUTI, DR PATRICK Goodson Attending Unavailable SHRUTI, DR PATRICK Goodson Admitting Unavailable FAWWAD, COLÓN H Primary Care Unavailable SHRUTI, DR PATRICK Goodson Consulting Unavailable SHRUTI, DR PATRICK Goodson Attending Unavailable SHRUTI, DR PATRICK Goodson Admitting Unavailable FAWWAD, COLÓN H Primary Care Unavailable CAPRI, ISAIAH Consulting Unavailable FAWWAD, COLÓN H Primary Care Unavailable MARIA ISABEL BANKS Attending Unavailable MARIA ISABEL BANKS Admitting Unavailable MARKER, DR MEDRANO Consulting Unavailable MARIA ISABEL BANKS Consulting Unavailable RAHMAN, HILDA Consulting Unavailable FAWWAD, COLÓN H Primary Care Unavailable SHRUTI, DR PARTICK Goodson Attending Unavailable SHRUTI, DR PATRICK Goodson Admitting Unavailable BAHENA, DR PATRICK Goodson Consulting Unavailable LAN, ARIADNA Consulting Unavailable BRITTANIE, HLIDA Consulting Unavailable FAWWAD, COLÓN H Primary Care [...] Chase Saldana Unavailable MIREILLE Saldana Attending Provider [facility] Primary Care Unavailable Key Patel Unavailable FAWAD, COLÓN Primary Care Unavailable FAWWAD, COLÓN Primary Care Unavailable MARTELL OTERO Attending Unavailable MARTELL OTERO Referring Unavailable FAWWAD, COLÓN Primary Care Unavailable MARTELL OTERO Attending Unavailable MARTELL OTERO Referring Unavailable FAWWAD, COLÓN Primary Care Unavailable MARTELL OTERO Attending Unavailable MARTELL OTERO Referring Unavailable FAWWAD, COLÓN Primary Care Unavailable FAWWAD, COLÓN Primary Care Unavailable FAWWAD, COLÓN Primary Care Unavailable CHETAN HEBERT Attending Unavailable FAWWAD, COLÓN Primary Care Unavailable ALICE SHANE Attending Unavailable FAWWAD, COLÓN Primary Care Unavailable SCOTT, GUSTAVOMAD M Attending Unavailable GUSTAVO CHAVEZMATammy M Attending Unavailable SCOTT, AHMAD M Referring Unavailable FAWWAD, COLÓN Primary Care Unavailable FAWWAD, COLÓN Attending Unavailable JOHN HADDAD Attending Unavailable MARY WIGGINS Attending Unavailable LEONARDO, COLÓN Attending Unavailable Gerald Wagner Attending Unavailab Gerald Lazo Admitting Unavailab le NON STAFF Primary Care Unavailable Allergies Allergy Classification Reported Allergen(s) Allergy Type Date of Onset Reaction(s) Facility (5 sources) ibuprofen; Translations: [ibuprofen] Drug Allergy 11-25-19 Nausea [facility] Repository (1 source) Latex; Translations: [Latex Allergy] Propensity to adverse reactions to drug (disorder) [facility] Repository (1 source) Sulfonamides (Antibiotic); Translations: [sulfa drugs] Propensity to adverse reactions to drug (disorder) [facility] Repository (6 sources) Lactase Drug Allergy [facility] [employer] Other (8 sources) Latex; Translations: [LATEX] Drug allergy 08-24-19 19 [facility] (6 sources) Sulfacetamide Drug Allergy [facility] [employer] Other (2 sources) Lactose Drug Allergy [facility] Repository (2 sources) Latex Drug allergy (disorder) 12-30-19 13 [facility] Repository (2 sources) Penicillin Drug Allergy [facility] Repository (1 source) Propylthiouracil Drug Allergy [facility] Repository (2 sources) Sulfonamides (Antibiotic) Drug allergy (disorder) 12-30-19 13 [facility] Repository (3 sources) Sulfonamides (Antibiotic); Translations: [SULFA (SULFONAMIDE ANTIBIOTICS)] Allergy to substance 11-25-19 17 [facility] (1 source) Adhesive agent; Translations: [ADHESIVE] Propensity to adverse reactions to drug (disorder) 01-09-20 [facility] Repository (1 source) Clindamycin; Translations: [CLINDAMYCIN] Drug Allergy 06-07-20 [facility] Repository (1 source) Desvenlafaxine; Translations: [DESVENLAFAXINE SUCCINATE] Drug Allergy 11-29-19 [facility] Repository (1 source) Escitalopram; Translations: [ESCITALOPRAM OXALATE] Drug Allergy 09-21-19 [facility] Repository (1 source) lamoTRIgine; Translations: [LAMOTRIGINE] Drug Allergy 01-13-20 [facility] Repository (1 source) natural latex rubber; Translations: [LATEX, NATURAL RUBBER] Propensity to adverse reactions to drug (disorder) 04-24-20 [facility] Repository (1 source) Penicillins; Translations: [PENICILLINS] Propensity to adverse reactions to drug (disorder) 12-05-19 [facility] Repository (1 source) Lactase Drug Allergy 05-07-20 [facility] Repository (1 source) Latex Drug allergy (disorder) 05-07-20 [facility] Repository (1 source) Sulfacetamide Drug Allergy 05-07-20 [facility] Repository Medications Current Medications Medication Drug Class(es) Dates Sig (Normalized) Sig (Original) [id number] 200 actuat albuterol 0.09 mg/actuat metered dose [...] 1.5 mg/ml oral solution (2 sources) Uncompetitive C-hobicv-F-aspartate Receptor Antagonist, Sigma-1 Agonist Silver DM 7.5-7.5 MG/5ML 10 ml Orally every [...] Mar, Not-Taking take 1 capsule by mo [facility] every twelve hours Clindamycin HCl 300 MG [...] sources) Hypokalemia; Translations: [HYPOKALEMIA] Onset: 10-24-2021 Episodic Genitourinary symptoms and ill-defined conditions (1 source) Dysuria Episodic Headache; including migraine (1 source) Headache; including migraine; Translations: [Headache, unspecified] Onset: 08-27-2023 Mood disorders (1 source) Bipolar disorder, unspecified; Translations: [BIPOLAR DISORDER UNSPECIFIED] Onset: 07-23-2021 Chronic Other aftercare (1 source) 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; Translations: [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 CURRENT DRUG THERAPY] Onset: 03-23-2022 Episodic Other [...] Onset: 10-10-2023 Episodic Other lower respiratory disease (5 sources) Shortness of breath; Translations: [SHORTNESS OF BREATH] Onset: 02-08-2022 Episodic Other lower respiratory disease (1 source) Dyspnea, unspecified; Translations: [Dyspnea, unspecified] Onset: 11-26-2023 Episodic Other lower respiratory disease (1 source) Cough Onset: 11-26-2023 Episodic Other nervous system disorders (3 sources) Difficulty in walking, not elsewhere classified; Translations: [DIFFICULTY IN WALKING NEC] Onset: 12-07-2021 Chronic Other non-traumatic joint disorders (4 sources) Pain in left ankle and joints of left foot; Translations: [PAIN IN LEFT ANKLE] Onset: 03-09-2022 Episodic Other skin disorders (1 source) Ingrowing nail Episodic Other skin disorders (1 source) Rash and other nonspecific skin eruption; Translations: [Rash and other nonspecific skin eruption] Onset: 11-16-2023 Episodic Other upper respiratory infections (1 source) [...] OF COVID-19] Onset: 02-09-2022 Unclassified (1 source) Rash Onset: 11-16-2023 Unclassified (1 source) Ankle Injury Onset: 09-22-2023 [...] INTO FURNITURE INITIAL ENC] Onset: 12-08-2021 Episodic Headache; including migraine (1 source) Headache Onset: 08-27-2023 Episodic Inflammation; infection of eye (except that [...] Reference Range Facility SARS/FLU A+B/RSV by NAAT/Mol [facility] 11-26-2023 SARS/FLU A+B/RSV by NAAT/Molecular FLU A PCR [...] operators who are performing tests using either From[employer] DX or Wire systems and is limited to laboratories that [...] repeat. Fact Sheet for Healthcare Providers: https://www.fda.gov/media /301854/download Fact Sheet for Patients: https://www.fda.gov/media /593502/download Normal [facility] Comment on above: Performed By: #### C OVFLR #### [facility] ([id number]) [address] [place] [address] 15988 BASIC METABOLIC PANLon 11-24 Anion gap [Moles/Vol] 13 mmol/L Normal 5-15 [facility] Comment on above: Performed By: #### B MP #### [facility] ([id number]) [address] [place] [address] 88266 Calcium [Mass/Vol] 9.0 mg/dL Normal 8.5-10.5 [facility] Comment on above: Performed By: #### B MP #### [facility] ([id number]) [address] [place] [address] 60091 Chloride [Moles/Vol] 103 mmol/L Normal 98-109 [facility] Comment on above: Performed By: #### B MP #### [facility] ([id number]) [address] [place] [address] 96985 CO2 [Moles/Vol] 20 mmol/L Low 22-32 [facility] Comment on above: Performed By: #### B MP #### [facility] ([id number]) [address] [place] [address] 30086 Creatinine [Mass/Vol] 0.69 mg/dL Normal 0.40-1.00 [facility] Comment on above: Result Comment: METH OD TRACEABLE TO IDMS STANDARD Performed By: #### B MP #### [facility] ([id number]) [address] [place] [address] 57433 eGFR (CKD-EPI) NON-RACE DEPENDENT >90 Normal >59 [facility] Comment on above: Result Comment: Reported eGFR is based on the CKD-EPI 2020 equation that does not use a race coefficient. Performed By: #### B MP #### [facility] ([id number]) [address] [place] [address] 72998 Glucose [Mass/Vol] 95 mg/dL Normal 65-99 [facility] Comment on above: Performed By: #### B MP #### [facility] ([id number]) [address] [place] [address] 77080 Potassium [Moles/Vol] 2.9 mmol/L Low 3.5-5.0 [facility] Comment on above: Performed By: #### B MP #### [facility] ([id number]) [address] [place] [address] 21410 Sodium [Moles/Vol] 136 mmol/L Normal 134-146 [facility] Comment on above: Performed By: #### B MP #### [facility] ([id number]) [address] [place] [address] 17775 Urea nitrogen [Mass/Vol] 7 mg/dL Normal 5-23 [facility] Comment on above: Performed By: #### B MP #### [facility] ([id number]) [address] [facility], [place] [address] HCG ( test) Ql (U)o n 09-22-2023 Beta HCG ( test) Ql (U) Negative Normal NEG [facility] Comment on above: Performed By: #### 2 106-3 #### [facility] ([id number]) [address] [place] [address] XR FOOT LT MIN 3 VWSon 09-21 [...] Loya MD on 09/22/2023 12:07 AM Normal [facility] XR SPINE LUMBAR 2 OR 3 [...] Loya MD on 09/22/2023 12:10 AM Normal [facility] XR TIBIA FIBULA LT MIN 2 [...] Ghada Loya MD on 09/22/2023 12:[address] [facility] SARS/FLU A+B/RSV by NAAT/Mol ecularon 07-09-2023 SARS/FLU A+B/RSV by NAAT/Molecular FLU A [...] operators who are performing tests using either [employer] DX or Wire systems and is limited to laboratories that [...] repeat. Fact Sheet for Healthcare Providers: https://www.fda.gov/media /434199/download Fact Sheet for Patients: https://www.fda.gov/media /190751/download Normal [facility] Comment on above: Performed By: #### C OVFLR #### [facility] ([id number]) [address] [place] [address] 14292 Provider Letteron 02-25-2023 Provider Letter (Inserted Image. Swapna ble to display) February 25, 2023 JENNIFER CARMEN [address] [place] [phone] : 1995 Dear Jennifer , We have been trying to reach you with no success. It is important that you return our call regarding your referral to our office by Jennifer upon receiving this letter. Also, at the time of your call, please provide us with your current information. Thank you for your prompt attention to this matter. Sincerely, [facility] [phone] Normal [facility] Physician Referralon 023 Physician Referral [phone] [id number] Normal [facility] Urinalysis - AUTOMATEDon Appearance (U) cloudy [employer] Other Bilirubin Ql (U) Negative [employer] Other Color (U) yellow [employer] Other Glucose Ql (U) Negative [employer] Other Hemoglobin Ql (U) Trace-intact [employer] Other Ketones Ql (U) Negative [employer] Other Leukocyte esterase Test strip Ql (U) Trace [employer] Other Nitrite Ql (U) Negative [employer] Other pH (U) 6.0 [pH] [facility] [employer] Other Protein Ql (U) Negative [employer] Other Specific gravity (U) [Rel density] <=1.005 [facility] [employer] Other Urobilinogen (U) [Mass/Vol] 0.2 mg/dL [facility] [employer] Other Urinalysis - AUTOMATED [facility] [employer] Other Quick Strepon 04-26-2022 S. pyogenes Org specific cx Ql (Throat) Negative [facility] [employer] Other Quick Strep [facility] [employer] Other SARS-CoV-2 (COVID-19) RNA NA A+probe Ql (Resp)on 04-23-2022 SARS-CoV-2 (COVID-19) RNA EMMANUELLE+probe Ql (Unsp spec) Negative [facility] [employer] Other Covid-19 PCR (CVDTB)on 03-16 SARS-CoV-2 (COVID-19) RNA EMMANUELLE+probe Ql (Unsp spec) Not detected Normal NOT DETECTED [facility] Comment on above: Result Comment: This test is not yet approved or cleared by the [place] FDA. When there are no FDA-approved or cleared tests available, and other criteria are met, FDA can make tests available under an emergency access mechanism called an Emergency Use Authorization (EUA). The EUA for this test is supported by the [employer] of Health and Human Service's (HHS's) declaration [...] SARS-CoV-2. Performed By: #### C BC #### [facility] [address] [place] [address] Dr. Katrin Ceja SARS-CoV-2 (COVID-19) RNA NA A+probe Ql (Resp)on 03-27-2022 SARS-CoV-2 (COVID-19) RNA EMMANUELLE+probe Ql (Unsp spec) Negative [employer] Other CBC AUTO DIFFon 03-22-2022 BASO # 0.0 103/ul Normal 0.0-0.1 [facility] Comment on above: Performed By: #### L IPID, CMP #### [facility] [address] [place] [address] Dr. Katrin Ceja Basophils/100 WBC (Bld) 0.3 % Normal 0.2-2.0 [facility] Comment on above: Performed By: #### L IPID, CMP #### [facility] [address] [place] [address] Dr. Katrin Ceja EO # 0.2 103/ul Normal 0.0-0.7 [facility] Comment on above: Performed By: #### L IPID, CMP #### [facility] [address] [place] [address] Dr. Katrin Ceja Eosinophils/100 WBC (Bld) 2.2 % Normal 0.9-7.0 [facility] Comment on above: Performed By: #### L IPID, CMP #### [facility] [address] [place] [address] Dr. Katrin Ceja Erythrocyte distribution width (RBC) [Ratio] 11.9 % Normal 11.0-15.0 [facility] Comment on above: Performed By: #### L IPID, CMP #### [facility] [address] [place] [address] Dr. Katrin Ceja Hematocrit (Bld) [Volume fraction] 36.4 % Normal 36.0-48.0 [facility] Comment on above: Performed By: #### L IPID, CMP #### [facility] [address] [place] [address] Dr. Katrin Ceja Hemoglobin (Bld) [Mass/Vol] 12.6 g/dL Normal 12.0-16.0 [facility] Comment on above: Performed By: #### L IPID, CMP #### [facility] [address] [place] [address] Dr. Katrin Ceja IG # 0.03 10e3/ul Normal 0.00-0.03 [facility] Comment on above: Performed By: #### L IPID, CMP #### [facility] [address] [place] [address] Dr. Katrin Ceja IG % 0.3 % Normal 0.0-0.5 [facility] Comment on above: Performed By: #### L IPID, CMP #### [facility] [address] [place] [address] Dr. aKtrin Ceja LYMPH # 3.5 103/ul Normal 1.2-3.8 [facility] Comment on above: Performed By: #### L IPID, CMP #### [facility] [address] [place] [address] Dr. Katrin Ceja Lymphocytes/100 WBC (Bld) 33.1 % Normal 20.5-60.0 [facility] Comment on above: Performed By: #### L IPID, CMP #### [facility] [address] [place] [address] Dr. Katrin Ceja MANUAL DIFF REQ NO Normal [facility] Comment on above: Performed By: #### L IPID, CMP #### [facility] [address] [place] [address] Dr. Katrin Ceja MCH (RBC) [Entitic mass] 29.9 pg Normal 26.7-34.0 [facility] Comment on above: Performed By: #### L IPID, CMP #### [facility] [address] [place] [address] Dr. Katrin Ceja MCHC (RBC) [Mass/Vol] 34.6 g/dL Normal 29.9-35.2 [facility] Comment on above: Performed By: #### L IPID, CMP #### [facility] [address] [place] [address] Dr. Katrin Ceja MCV (RBC) [Entitic vol] 86.5 fL Normal 81.0-99.0 [facility] Comment on above: Performed By: #### L IPID, CMP #### [facility] [address] [place] [address] Dr. Katrin Ceja MONO # 0.7 103/ul Normal 0.3-0.8 [facility] Comment on above: Performed By: #### L IPID, CMP #### [facility] [address] [place] [address] Dr. Katrin Ceja Monocytes/100 WBC (Bld) 6.5 % Normal 1.7-12.0 [facility] Comment on above: Performed By: #### L IPID, CMP #### [facility] [address] [place] [address] Dr. Katrin Ceja NEUT # 6.0 103/ul Normal 1.4-6.5 [facility] Comment on above: Performed By: #### L IPID, CMP #### [facility] [address] [place] [address] Dr. Katrin Ceja Neutrophils/100 WBC (Bld) 57.6 % Normal 43.0-75.0 [facility] Comment on above: Performed By: #### L IPID, CMP #### [facility] [address] [place] [address] Dr. Katrin Ceja Platelet mean volume (Bld) [Entitic vol] 8.7 fL Critically low 9.5-13.5 [facility] Comment on above: Performed By: #### L IPID, CMP #### [facility] [address] [place] [address] Dr. Katrin Ceja PLT 282 103/ul Normal 150-450 [facility] Comment on above: Performed By: #### L IPID, CMP #### [facility] [address] [place] [address] Dr. Katrin Ceja RBC 4.21 106/ul Normal 4.20-5.40 [facility] Comment on above: Performed By: #### L IPID, CMP #### [facility] [address] [place] [address] Dr. Katrin Ceja WBC 10.5 103/ul Normal 4.0-11.0 [facility] Comment on above: Performed By: #### L IPID, CMP #### [facility] [address] [address] [address] Katrin Ceja ER URINE PROFILEon 2 Bilirubin Ql (U) Negative Normal NEGATIVE [facility] Comment on above: Performed By: #### L IPID, CMP #### [facility] [address] [place] [address] Dr. Katrin Ceja Clarity (U) CLEAR Normal CLEAR [facility] Comment on above: Performed By: #### L IPID, CMP #### [facility] [address] [place] [address] Dr. Katrin Ceja Color (U) LT. YELLOW Normal YELLOW [facility] Comment on above: Performed By: #### L IPID, CMP #### [facility] [address] [place] [address] Dr. Katrin Ceja ERUNIRAV A micrscopic examina tion will be performed if indicated. Normal [facility] Comment on above: Performed By: #### L IPID, CMP #### [facility] [address] [place] [address] Dr. Katrin Ceja Glucose Ql (U) Negative Normal NEGATIVE [facility] Comment on above: Performed By: #### L IPID, CMP #### [facility] [address] [place] [address] Dr. Katrin Ceja Hemoglobin Ql (U) Negative Normal NEGATIVE [facility] Comment on above: Performed By: #### L IPID, CMP #### [facility] [address] [place] [address] Dr. Katrin Ceja Ketones Ql (U) Negative Normal NEGATIVE [facility] Comment on above: Performed By: #### L IPID, CMP #### [facility] [address] [place] [address] Dr. Katrin Ceja LEUKOCYTES Negative Normal NEGATIVE [facility] Comment on above: Performed By: #### L IPID, CMP #### [facility] [address] [place] [address] Dr. Katrin Ceja Nitrite Ql (U) Negative Normal NEGATIVE [facility] Comment on above: Performed By: #### L IPID, CMP #### [facility] [address] [place] [address] Dr. Katrin Ceja pH (U) 6.0 [pH] Normal 5-9 [facility] Comment on above: Performed By: #### L IPID, CMP #### [facility] [address] [place] [address] Dr. Katrin Ceja SPEC GRAVITY 1.015 Normal 1.005-<=1. 025 [facility] Comment on above: Performed By: #### L IPID, CMP #### [facility] [address] [place] [address] Dr. Katrin Ceja UA PROTEIN Negative Normal NEGATIVE/ TRACE [facility] Comment on above: Performed By: #### L IPID, CMP #### [facility] [address] [place] [address] Dr. Katrin Ceja UR MICRO IND NOT INDICATED Normal [facility] Comment on above: Performed By: #### L IPID, CMP #### [facility] [address] [place] [address] Dr. Katrin Ceja Urobilinogen Qn (U) 0.2 {Jeannie'U}/dL Normal 0.2 - 1. 0 [facility] Comment on above: Performed By: #### L IPID, CMP #### [facility] [address] [place] [address] Dr. Katrin Ceja LIPASEon 03-22-2022 Lipase [Catalytic activity/Vol] 84.0 U/L Normal 73.0-393.0 [facility] Comment on above: Performed By: #### H STROPN, CMP, LIPA #### [facility] [address] [place] [address] Dr. Katrin Ceja URon 03-22-2022 , QUAL Negative Normal NEGATIVE [facility] Comment on above: Performed By: #### L IPID, CMP #### [facility] [address] [address] [address] Katrin Ceja PROF 14(COMP METB)on 022 Albumin [Mass/Vol] 3.2 g/dL Critically low 3.4-5.0 Th e [facility] Comment on above: Performed By: #### H STROPN, CMP, LIPA #### [facility] [address] [address] [address] Katrin Ceja Albumin/Globulin [Mass ratio] 0.8 {ratio} Normal [facility] Comment on above: Performed By: #### H STROPN, CMP, LIPA #### [facility] [address] [place] [address] Dr. Katrin Ceja ALP [Catalytic activity/Vol] 189 U/L Critically high 46-116 [facility] Comment on above: Performed By: #### H STROPN, CMP, LIPA #### [facility] [address] [address] [address] Katrin Ceja ALT [Catalytic activity/Vol] 31 U/L Normal 14-59 [facility] Comment on above: Performed By: #### H STROPN, CMP, LIPA #### [facility] [address] [address] [address] Katrin Ceja Anion gap [Moles/Vol] 9.9 mmol/L Normal [facility] Comment on above: Performed By: #### H STROPN, CMP, LIPA #### [facility] [address] [address] [address] Katrin Ceja AST [Catalytic activity/Vol] 17 U/L Normal 15-37 [facility] Comment on above: Performed By: #### H STROPN, CMP, LIPA #### [facility] [address] [place] [address] Dr. Katrin Ceja Bilirubin [Mass/Vol] 0.2 mg/dL Normal 0.2-1.0 [facility] Comment on above: Performed By: #### H STROPN, CMP, LIPA #### [facility] [address] [place], [place] [id number] Dr. Katrin Ceja Calcium [Mass/Vol] 8.7 mg/dL Normal 8.5-10.1 [facility] Comment on above: Performed By: #### H STROPN, CMP, LIPA #### [facility] [address] [address] [address] Katrin Ceja Chloride [Moles/Vol] 103 mmol/L Normal 98-107 [facility] Comment on above: Performed By: #### H STROPN, CMP, LIPA #### [facility] [address] [place] [address] Dr. Katrin Ceja CO2 [Moles/Vol] 25.4 mmol/L Normal 21.0-32.0 [facility] Comment on above: Performed By: #### H STROPN, CMP, LIPA #### [facility] [address] [place] [address] Dr. Katrin Ceja Creatinine [Mass/Vol] 0.71 mg/dL Normal 0.55-1.02 [facility] Comment on above: Performed By: #### H STROPN, CMP, LIPA #### [facility] [address] [place] [address] Dr. Katrin Ceja EGFR-AF TRINIDADIAN >60 Normal >=60 [facility] Comment on above: Performed By: #### H STROPN, CMP, LIPA #### [facility] [address] [place] [address] Dr. Katrin Ceja EGFR-NON AF TRINIDADIAN >60 Normal >=60 [facility] Comment on above: Performed By: #### H STROPN, CMP, LIPA #### [facility] [address] [place] [address] Dr. Katrin Ceja Globulin (S) [Mass/Vol] 4.0 g/dL Normal [facility] Comment on above: Performed By: #### H STROPN, CMP, LIPA #### [facility] [address] [place] [address] Dr. Katrin Ceja Glucose [Mass/Vol] 106 mg/dL Normal 74-106 [facility] Comment on above: Performed By: #### H STROPN, CMP, LIPA #### [facility] [address] [address] [address] Katrin Ceja Potassium [Moles/Vol] 3.3 mmol/L Critically low 3.5-5.1 [facility] Comment on above: Performed By: #### H STROPN, CMP, LIPA #### [facility] [address] [address] [address] Katrin Ceja Protein [Mass/Vol] 7.2 g/dL Normal 6.4-8.2 [facility] Comment on above: Performed By: #### H STROPN, CMP, LIPA #### [facility] [address] [address] [address] Katrin Ceja Sodium [Moles/Vol] 135 mmol/L Critically low 136-145 [facility] Comment on above: Performed By: #### H STROPN, CMP, LIPA #### [facility] [address] [address] [address] Katrin Ceja Urea nitrogen [Mass/Vol] 5.0 mg/dL Critically low 7.0-18.0 [facility] Comment on above: Performed By: #### H STROPN, CMP, LIPA #### [facility] [address] [address] [address] Katrin Ceja Urea nitrogen/Creatinine [Mass ratio] 7.0 mg/mg Normal [facility] Comment on above: Performed By: #### H STROPN, CMP, LIPA #### [facility] [address] [place] [address] Dr. Katrin Ceja TROPONIN, HIGH SENSITIVITYon 03-22-2022 HSTROP <4.0 Normal 4.0-51.3 [facility] Comment on above: Result Comment: CUT- OFF POINTS HAVE BEEN ESTABLISHED BASED ON THE FOURTH UNIVERSAL DEFINITIONS OF MYOCARDIAL INFARCTION. THE UPPER REFERENCE LIMIT (URL) OF TROPONIN, DEFINED THE 99TH PERCENTILE OF cTnI DISTRIBUTION IN A REFERENCE POPULATION, HAS BEEN CONFIRMED THE DECISION THRESHOLD FOR MD DIAGNOSIS. Performed By: #### H STROPN, CMP, LIPA #### [facility] [address] [place] [address] Dr. Katrin Cjea XR ABD FLAT UP_PA Bret 03-22 XR [...] GERI LASSITER Date: 2022-03-22 01:53 Normal [facility] XR ANKLE LT MIN 3 Von 2021 [...] DANNI QUINONES Date: 2022-03-09 19:32 Normal [facility] CBC AUTO DIFFon 02-08-2022 BASO # 0.0 103/ul Normal 0.0-0.1 [facility] Comment on above: Performed By: #### C BC #### [facility] [address] [address] [address] Katrin Ceja Basophils/100 WBC (Bld) 0.3 % Normal 0.2-2.0 [facility] Comment on above: Performed By: #### C BC #### [facility] [address] [address] [address] Katrin Ceja EO # 0.3 103/ul Normal 0.0-0.7 [facility] Comment on above: Performed By: #### C BC #### [facility] [address] [place] [address] Dr. Katrin Ceja Eosinophils/100 WBC (Bld) 3.0 % Normal 0.9-7.0 [facility] Comment on above: Performed By: #### C BC #### [facility] [address] [place] [address] Dr. Katrin Ceja Erythrocyte distribution width (RBC) [Ratio] 12.2 % Normal 11.0-15.0 [facility] Comment on above: Performed By: #### C BC #### [facility] [address] [place] [address] Dr. Katrin Ceja Hematocrit (Bld) [Volume fraction] 33.8 % Critically low 36.0-48.0 [facility] Comment on above: Performed By: #### C BC #### [facility] [address] [place] [address] Dr. Katrin Ceja Hemoglobin (Bld) [Mass/Vol] 11.9 g/dL Critically low 12.0-16.0 [facility] Comment on above: Performed By: #### C BC #### [facility] [address] [place] [address] Dr. Katrin Ceja IG # 0.04 10e3/ul Critically high 0.00-0.03 [facility] Comment on above: Performed By: #### C BC #### [facility] [address] [place] [address] Dr. Katrin Ceja IG % 0.4 % Normal 0.0-0.5 [facility] Comment on above: Performed By: #### C BC #### [facility] [address] [place] [address] Dr. Katrin Ceja LYMPH # 3.0 103/ul Normal 1.2-3.8 [facility] Comment on above: Performed By: #### C BC #### [facility] [address] [place] [address] Dr. Katrin Ceja Lymphocytes/100 WBC (Bld) 28.4 % Normal 20.5-60.0 [facility] Comment on above: Performed By: #### C BC #### [facility] [address] [place] [address] Dr. Katrin Ceja MANUAL DIFF REQ NO Normal [facility] Comment on above: Performed By: #### C BC #### [facility] [address] [place] [address] Dr. Katrin Ceja MCH (RBC) [Entitic mass] 29.8 pg Normal 26.7-34.0 [facility] Comment on above: Performed By: #### C BC #### [facility] [address] [place] [address] Dr. Katrin Ceja MCHC (RBC) [Mass/Vol] 35.2 g/dL Normal 29.9-35.2 [facility] Comment on above: Performed By: #### C BC #### [facility] [address] [place] [address] Dr. Katrin Ceja MCV (RBC) [Entitic vol] 84.7 fL Normal 81.0-99.0 [facility] Comment on above: Performed By: #### C BC #### [facility] [address] [place] [address] Dr. Katrin Ceja MONO # 0.7 103/ul Normal 0.3-0.8 [facility] Comment on above: Performed By: #### C BC #### [facility] [address] [place] [address] Dr. Katrin Ceja Monocytes/100 WBC (Bld) 6.6 % Normal 1.7-12.0 [facility] Comment on above: Performed By: #### C BC #### [facility] [address] [place] [address] Dr. Katrin Ceja NEUT # 6.4 103/ul Normal 1.4-6.5 [facility] Comment on above: Performed By: #### C BC #### [facility] [address] [place] [address] Dr. Katrin Ceja Neutrophils/100 WBC (Bld) 61.3 % Normal 43.0-75.0 [facility] Comment on above: Performed By: #### C BC #### [facility] [address] [address] [address] Katrin Ceja Platelet mean volume (Bld) [Entitic vol] 8.9 fL Critically low 9.5-13.5 [facility] Comment on above: Performed By: #### C BC #### [facility] [address] [place] [address] Dr. Katrin Ceja PLT 299 103/ul Normal 150-450 [facility] Comment on above: Performed By: #### C BC #### [facility] [address] [address] [address] Katrin Ceja RBC 3.99 106/ul Critically low 4.20-5.40 [facility] Comment on above: Performed By: #### C BC #### [facility] [address] [place] [address] Dr. Katrin Ceja WBC 10.4 103/ul Normal 4.0-11.0 [facility] Comment on above: Performed By: #### C BC #### [facility] [address] [place] [address] Dr. Katrin Ceja D-DIMERon 02-08-2022 D-DIMER 0.59 mg/L FEU Normal <=0.59 [facility] Comment on above: Performed By: #### L IPID, CMP #### [facility] [address] [place] [address] Dr. Katrin Ceja D-DIMER COMMENTS SEE BELOW Normal [facility] Comment on above: Result Comment: Incr [...] Performed By: #### L IPID, CMP #### [facility] [address] [place] [address] Dr. Katrin Ceja PROF CHEM 8 (BAS METB)on Anion gap [Moles/Vol] 12.8 mmol/L Normal Th e [facility] Comment on above: Performed By: #### C BC #### [facility] [address] [place] [address] Dr. Katrin Ceja Calcium [Mass/Vol] 8.7 mg/dL Normal 8.5-10.1 [facility] Comment on above: Performed By: #### C BC #### [facility] [address] [address] [address] Katrin Ceja Chloride [Moles/Vol] 102 mmol/L Normal 98-107 [facility] Comment on above: Performed By: #### C BC #### [facility] [address] [place] [address] Dr. Katrin Ceja CO2 [Moles/Vol] 25.9 mmol/L Normal 21.0-32.0 [facility] Comment on above: Performed By: #### C BC #### [facility] [address] [place] [address] Dr. Katrin Ceja Creatinine [Mass/Vol] 0.70 mg/dL Normal 0.55-1.02 [facility] Comment on above: Performed By: #### C BC #### [facility] [address] [place] [address] Dr. Katrin Ceja EGFR-AF TRINIDADIAN >60 Normal >=60 [facility] Comment on above: Performed By: #### C BC #### [facility] [address] [place] [address] Dr. Katrin Ceja EGFR-NON AF TRINIDADIAN >60 Normal >=60 [facility] Comment on above: Performed By: #### C BC #### [facility] [address] [place] [address] Dr. Katrin Ceja Glucose [Mass/Vol] 95 mg/dL Normal 74-106 [facility] Comment on above: Performed By: #### C BC #### [facility] [address] [place] [address] Dr. Katrin Ceja Potassium [Moles/Vol] 2.7 mmol/L Critically low 3.5-5.1 [facility] Comment on above: Result Comment: Test Repeated. Critical Value Verified Performed By: #### C BC #### [facility] [address] [address] [address] Katrin Ceja Sodium [Moles/Vol] 136 mmol/L Normal 136-145 [facility] Comment on above: Performed By: #### C BC #### [facility] [address] [id number] [address] Katrin Ceja Urea nitrogen [Mass/Vol] 3.0 mg/dL Critically low 7.0-18.0 [facility] Comment on above: Performed By: #### C BC #### [facility] [address] [id number] [address] Katrin Ceja Urea nitrogen/Creatinine [Mass ratio] 4.3 mg/mg Normal [facility] Comment on above: Performed By: #### C BC #### [facility] [address] [address] [address] Katrin Ceja XR CHEST 2 Von [...] indicated. Electronically authenticated by: RIVER RODGERS Date: 2022-02-08 04:19 Normal [facility] LIPID PROFILEon 12-18-2021 CHOL-HDL RATIO NORM SEE BELOW Normal [facility] Comment on above: Result Comment: 3.3 - 4.4 LOW RISK 4.4 - 7.1 AVERAGE RISK 7.1 - 11.0 MODERATE RISK >11.0 HIGH RISK Performed By: #### L IPID, LIVER #### [facility] [address] [id number] [address] Katrin Ceja Cholesterol [Mass/Vol] 126 mg/dL Normal <=200 Th [facility] Comment on above: Performed By: #### L IPID, LIVER #### [facility] [address] [address] [address] Katrin Ceja Cholesterol in HDL [Mass/Vol] 31 mg/dL Critically low 40-60 [facility] Comment on above: Performed By: #### L IPID, LIVER #### [facility] [address] [address] [address] Katrin Ceja Cholesterol in LDL [Mass/Vol] 59.2 mg/dL Normal [facility] Comment on above: Performed By: #### L IPID, LIVER #### [facility] [address] [address] [address] Katrin Ceja Cholesterol.total/Chol esterol in HDL [Mass ratio] 4.1 {ratio} Normal [facility] Comment on above: Performed By: #### L IPID, LIVER #### [facility] [address] [place] [address] Dr. Katrin Ceja HDL NORMAL > or = 60 mg/dl - LO W CARDIOVASCULAR RISK <40 mg/dl - HIGH CARDIOVASCULAR RISK Normal [facility] Comment on above: Performed By: #### L IPID, LIVER #### [facility] [address] [address] [address] Katrin Ceja LDL CALC NORMAL SEE BELOW Normal [facility] Comment on above: Result Comment: <100 mg/dl OPTIMAL 100 - 129 mg/dl NEAR OR ABOVE OPTIMAL 130 - 159 mg/dl BORDERLINE HIGH 160 - 189 mg/dl HIGH >190 mg/dl VERY HIGH Performed By: #### L IPID, LIVER #### [facility] [address] [address] [address] Katrin Ceja Triglyceride [Mass/Vol] 179 mg/dL Critically high <=150 [facility] Comment on above: Performed By: #### L IPID, LIVER #### [facility] [address] [address] [address] Katrin Ceja VLDL CALC 35.8 mg/dL Normal [facility] Comment on above: Performed By: #### L IPID, LIVER #### [facility] [address] [address] [address] Katrin Ceja LIVER PROFILEon 12-18-2021 Albumin [Mass/Vol] 3.6 g/dL Normal 3.4-5.0 [facility] Comment on above: Performed By: #### L IPID, LIVER #### [facility] [address] [address] [address] Katrin Ceja Albumin/Globulin [Mass ratio] 0.8 {ratio} Normal [facility] Comment on above: Performed By: #### L IPID, LIVER #### [facility] [address] [address] [address] Katrin Ceja ALP [Catalytic activity/Vol] 196 U/L Critically high 46-116 [facility] Comment on above: Performed By: #### L IPID, LIVER #### [facility] [address] [place] [address] Dr. Katrin Ceja ALT [Catalytic activity/Vol] 51 U/L Normal 14-59 [facility] Comment on above: Performed By: #### L IPID, LIVER #### [facility] [address] [place] [address] Dr. Katrin Ceja AST [Catalytic activity/Vol] 22 U/L Normal 15-37 [facility] Comment on above: Performed By: #### L IPID, LIVER #### [facility] [address] [place] [address] Dr. Katrin Ceja BILI, CONJUGATED 0.1 mg/dL Normal 0.0-0.2 [facility] Comment on above: Performed By: #### L IPID, LIVER #### [facility] [address] [place] [address] Dr. Katrin Ceja Bilirubin [Mass/Vol] 0.4 mg/dL Normal 0.2-1.0 [facility] Comment on above: Performed By: #### L IPID, LIVER #### [facility] [address] [place] [address] Dr. Katrin Ceja Globulin (S) [Mass/Vol] 4.4 g/dL Normal [facility] Comment on above: Performed By: #### L IPID, LIVER #### [facility] [address] [place] [address] Dr. Katrin Ceja Protein [Mass/Vol] 8.0 g/dL Normal 6.4-8.2 [facility] Comment on above: Performed By: #### L IPID, LIVER #### [facility] [address] [place] [address] Dr. Katrin Ceja XR FOOT RT MIN [...] RIVER RODGERS Date: 2021-12-07 00:19 Normal [facility] PROF 14(COMP METB)on 022 Albumin [Mass/Vol] 3.6 g/dL Normal 3.4-5.0 [facility] Comment on above: Performed By: #### L IPID, CMP #### [facility] [address] [place] [address] Dr. Katrin Ceja Albumin/Globulin [Mass ratio] 0.8 {ratio} Normal [facility] Comment on above: Performed By: #### L IPID, CMP #### [facility] [address] [place] [address] Dr. Katrin Ceja ALP [Catalytic activity/Vol] 209 U/L Critically high 46-116 [facility] Comment on above: Performed By: #### L IPID, CMP #### [facility] [address] [place] [address] Dr. Katrin Ceja ALT [Catalytic activity/Vol] 65 U/L Critically high 14-59 [facility] Comment on above: Performed By: #### L IPID, CMP #### [facility] [address] [address] [address] Katrin Ceja Anion gap [Moles/Vol] 15.7 mmol/L Normal Th [facility] Comment on above: Performed By: #### L IPID, CMP #### [facility] [address] [address] [address] Katrin Ceja AST [Catalytic activity/Vol] 31 U/L Normal 15-37 [facility] Comment on above: Performed By: #### L IPID, CMP #### [facility] [address] [address] [address] Katrin Ceja Bilirubin [Mass/Vol] 0.2 mg/dL Normal 0.2-1.3 [facility] Comment on above: Performed By: #### L IPID, CMP #### [facility] [address] [place] [address] Dr. Katrin Ceja Calcium [Mass/Vol] 8.8 mg/dL Normal 8.5-10.1 [facility] Comment on above: Performed By: #### L IPID, CMP #### [facility] [address] [place] [address] Dr. Katrin Ceja Chloride [Moles/Vol] 105 mmol/L Normal 98-107 [facility] Comment on above: Performed By: #### L IPID, CMP #### [facility] [address] [place] [address] Dr. Katrin Ceja CO2 [Moles/Vol] 21.3 mmol/L Critically low 22.0-30.0 [facility] Comment on above: Performed By: #### L IPID, CMP #### [facility] [address] [place] [address] Dr. Katrin Ceja Creatinine [Mass/Vol] 0.72 mg/dL Normal 0.52-1.04 [facility] Comment on above: Performed By: #### L IPID, CMP #### [facility] [address] [place] [address] Dr. Katrin Ceja EGFR-AF TRINIDADIAN >60 Normal >=60 [facility] Comment on above: Performed By: #### L IPID, CMP #### [facility] [address] [address] [address] Katrin Ceja EGFR-NON AF TRINIDADIAN >60 Normal >=60 [facility] Comment on above: Performed By: #### L IPID, CMP #### [facility] [address] [place] [address] Dr. Katrin Ceja Globulin (S) [Mass/Vol] 4.3 g/dL Normal [facility] Comment on above: Performed By: #### L IPID, CMP #### [facility] [address] [place] [address] Dr. Katrin Ceja Glucose [Mass/Vol] 99 mg/dL Normal 74-106 [facility] Comment on above: Performed By: #### L IPID, CMP #### [facility] [address] [place] [address] Dr. Katrin Ceja Potassium [Moles/Vol] 4.0 mmol/L Normal 3.4-5.0 [facility] Comment on above: Performed By: #### L IPID, CMP #### [facility] [address] [place] [address] Dr. Katrin Ceja Protein [Mass/Vol] 7.9 g/dL Normal 6.1-8.2 [facility] Comment on above: Performed By: #### L IPID, CMP #### [facility] [address] [place] [address] Dr. Katrin Ceja Sodium [Moles/Vol] 138 mmol/L Normal 137-145 [facility] Comment on above: Performed By: #### L IPID, CMP #### [facility] [address] [place] [address] Dr. Katrin Ceja Urea nitrogen [Mass/Vol] 13.0 mg/dL Normal 7.0-18.0 [facility] Comment on above: Performed By: #### L IPID, CMP #### [facility] [address] [place] [address] Dr. Katrin Ceja Urea nitrogen/Creatinine [Mass ratio] 18.1 mg/mg Normal [facility] [facility] Comment on above: Performed By: #### L IPID, CMP #### [facility] [address] [address] [address] Katrin Ceja XR HUMERUS RT MIN [...] MODESTA NAVA Date: 2021-10-17 01:46 Normal [facility] XR SHOULDER RT 2V or >on XR SHOULDER RT 2V or > EXAM: XR SHOULDER RT 2V or > HISTORY: Pain right arm pain following fall. COMPARISON: None. TECHNIQUE: Standard 3 views of the right shoulder. FINDINGS: No acute or intrinsic osseous, articular or soft tissue abnormality is seen. IMPRESSION: No acute findings. Electronically authenticated by: MODESTA NAVA Date: 2021-10-17 01:45 Normal [facility] XR WRIST RT MIN 3 Von 2021 [...] by: MODESTA NAVA Date: 2021-10-17 01:44 Normal [facility] AMYLASEon 09-18-2021 Amylase [Catalytic activity/Vol] 34 U/L Normal 31-110 [facility] Comment on above: Performed By: #### P REG #### [facility] [address] [place] [address] Dr. Katrin Ceja CBC AUTO DIFFon 09-18-2021 BASO # 0.0 103/ul Normal 0.0-0.1 [facility] Comment on above: Performed By: #### C BC #### [facility] [address] [place] [address] Dr. Katrin Ceja Basophils/100 WBC (Bld) 0.3 % Normal 0.2-2.0 [facility] Comment on above: Performed By: #### C BC #### [facility] [address] [address] [address] Katrin Ceja EO # 0.2 103/ul Normal 0.0-0.7 [facility] Comment on above: Performed By: #### C BC #### [facility] [address] [place] [address] Dr. Katrin Ceja Eosinophils/100 WBC (Bld) 2.4 % Normal 0.9-7.0 [facility] Comment on above: Performed By: #### C BC #### [facility] [address] [place] [address] Dr. Katrin Ceja Erythrocyte distribution width (RBC) [Ratio] 12.5 % Normal 11.0-15.0 [facility] Comment on above: Performed By: #### C BC #### [facility] [address] [place] [address] Dr. Katrin Ceja Hematocrit (Bld) [Volume fraction] 37.4 % Normal 36.0-48.0 [facility] Comment on above: Performed By: #### C BC #### [facility] [address] [place] [address] Dr. Katrin Ceja Hemoglobin (Bld) [Mass/Vol] 12.3 g/dL Normal 12.0-16.0 [facility] Comment on above: Performed By: #### C BC #### [facility] [address] [place] [address] Dr. Katrin Ceja IG # 0.05 10e3/ul Critically high 0.00-0.03 [facility] Comment on above: Performed By: #### C BC #### [facility] [address] [place] [address] Dr. Katrin Ceja IG % 0.5 % Normal 0.0-0.5 [facility] Comment on above: Performed By: #### C BC #### [facility] [address] [place] [address] Dr. Katrin Ceja LYMPH # 3.1 103/ul Normal 1.2-3.8 [facility] Comment on above: Performed By: #### C BC #### [facility] [address] [place] [address] Dr. Katrin Ceja Lymphocytes/100 WBC (Bld) 31.7 % Normal 20.5-60.0 [facility] Comment on above: Performed By: #### C BC #### [facility] [address] [place] [address] Dr. Katrin Ceja MANUAL DIFF REQ NO Normal [facility] Comment on above: Performed By: #### C BC #### [facility] [address] [place] [address] Dr. Katrin Ceja MCH (RBC) [Entitic mass] 28.9 pg Normal 26.7-34.0 [facility] Comment on above: Performed By: #### C BC #### [facility] [address] [place] [address] Dr. Katrin Ceja MCHC (RBC) [Mass/Vol] 32.9 g/dL Normal 29.9-35.2 [facility] Comment on above: Performed By: #### C BC #### [facility] [address] [place] [address] Dr. Katrin Ceja MCV (RBC) [Entitic vol] 88.0 fL Normal 81.0-99.0 [facility] Comment on above: Performed By: #### C BC #### [facility] [address] [place] [address] Dr. Katrin Ceja MONO # 0.7 103/ul Normal 0.3-0.8 [facility] Comment on above: Performed By: #### C BC #### [facility] [address] [place] [address] Dr. Katrin Ceja Monocytes/100 WBC (Bld) 6.7 % Normal 1.7-12.0 [facility] Comment on above: Performed By: #### C BC #### [facility] [address] [place] [address] Dr. Katrin Ceja NEUT # 5.7 103/ul Normal 1.4-6.5 [facility] Comment on above: Performed By: #### C BC #### [facility] [address] [place] [address] Dr. Katrin Ceja Neutrophils/100 WBC (Bld) 58.4 % Normal 43.0-75.0 [facility] Comment on above: Performed By: #### C BC #### [facility] [address] [place] [address] Dr. Katrin Ceja Platelet mean volume (Bld) [Entitic vol] 8.8 fL Critically low 9.5-13.5 [facility] Comment on above: Performed By: #### C BC #### [facility] [address] [place] [address] Dr. Katrin Ceja PLT 265 103/ul Normal 150-450 [facility] Comment on above: Performed By: #### C BC #### [facility] [address] [place] [address] Dr. Katrin Ceja RBC 4.25 106/ul Normal 4.20-5.40 [facility] Comment on above: Performed By: #### C BC #### [facility] [address] [place] [address] Dr. Katrin Ceja WBC 9.7 103/ul Normal 4.0-11.0 [facility] Comment on above: Performed By: #### C BC #### [facility] [address] [place] [address] ABD/PELV W CONon [...] ISAIAH FAROOQ Date: 2021-09-18 03:51 Normal [facility] ER URINE PROFILEon 2 Bilirubin Ql (U) Negative Normal NEGATIVE [facility] Comment on above: Performed By: #### C BC #### [facility] [address] [place] [address] Dr. Katrin Ceja Clarity (U) CLEAR Normal CLEAR [facility] Comment on above: Performed By: #### C BC #### [facility] [address] [place] [address] Dr. Katrin Ceja Color (U) LT. YELLOW Normal YELLOW [facility] Comment on above: Performed By: #### C BC #### [facility] [address] [place] [address] Dr. Katrin Ceja ERUAHD A micrscopic examina tion will be performed if indicated. Normal [facility] Comment on above: Performed By: #### C BC #### [facility] [address] [place] [address] Dr. Katrin Ceja Glucose Ql (U) Negative Normal NEGATIVE [facility] Comment on above: Performed By: #### C BC #### [facility] [address] [place] [address] Dr. Katrin Ceja Hemoglobin Ql (U) SMALL Abnormal NEGATIVE [facility] Comment on above: Performed By: #### C BC #### [facility] [address] [place] [address] Dr. Katrin Ceja Ketones Ql (U) Negative Normal NEGATIVE [facility] Comment on above: Performed By: #### C BC #### [facility] [address] [place] [address] Dr. Katrin Ceja LEUKOCYTES Negative Normal NEGATIVE [facility] Comment on above: Performed By: #### C BC #### [facility] [address] [place] [address] Dr. Katrin Ceja Nitrite Ql (U) Negative Normal NEGATIVE [facility] Comment on above: Performed By: #### C BC #### [facility] [address] [place] [address] Dr. Katrin Ceja pH (U) 7.5 [pH] Normal 5-9 [facility] Comment on above: Performed By: #### C BC #### [facility] [address] [place] [address] Dr. Katrin Ceja SPEC GRAVITY 1.010 Normal 1.005-<=1. 025 [facility] Comment on above: Performed By: #### C BC #### [facility] [address] [place] [address] Dr. Katrin Ceja UA PROTEIN Negative Normal NEGATIVE/ TRACE [facility] Comment on above: Performed By: #### C BC #### [facility] [address] [place] [address] Dr. Katrin Ceja UR MICRO IND INDICATED Normal [facility] Comment on above: Performed By: #### C BC #### [facility] [address] [place] [address] Dr. Katrin Ceja Urobilinogen Qn (U) 0.2 {Jeannie'U}/dL Normal 0.2 - 1. 0 [facility] Comment on above: Performed By: #### C BC #### [facility] [address] [place] [address] Dr. Katrin Ceja LIPASEon 09-18-2021 Lipase [Catalytic activity/Vol] 81.0 U/L Normal 23.0-300.0 [facility] Comment on above: Performed By: #### P REG #### [facility] [address] [place] [address] Dr. Katrin Ceja URon 09-18-2021 , QUAL Negative Normal NEGATIVE [facility] Comment on above: Performed By: #### C BC #### [facility] [address] [address] [address] Katrin Ceja PROF 14(COMP METB)on 022 Albumin [Mass/Vol] 3.2 g/dL Critically low 3.5-5.0 [facility] Comment on above: Performed By: #### P REG #### [facility] [address] [place] [address] Dr. Katrin Ceja Albumin/Globulin [Mass ratio] 0.8 {ratio} Normal [facility] Comment on above: Performed By: #### P REG #### [facility] [address] [place] [address] Dr. Katrin Ceja ALP [Catalytic activity/Vol] 216 U/L Critically high 38-126 [facility] Comment on above: Performed By: #### P REG #### [facility] [address] [place] [address] Dr. Katrin Ceja ALT [Catalytic activity/Vol] 109 U/L Critically high 9-52 [facility] Comment on above: Performed By: #### P REG #### [facility] [address] [place] [address] Dr. Katrin Ceja Anion gap [Moles/Vol] 10.5 mmol/L Normal [facility] Comment on above: Performed By: #### P REG #### [facility] [address] [place] [address] Dr. Katrin Ceja AST [Catalytic activity/Vol] 66 U/L Critically high 14-36 [facility] Comment on above: Performed By: #### P REG #### [facility] [address] [address] [address] Katrin Ceja Bilirubin [Mass/Vol] 0.2 mg/dL Normal 0.2-1.3 [facility] Comment on above: Performed By: #### P REG #### [facility] [address] [place] [address] Dr. Katrin Ceja Calcium [Mass/Vol] 8.3 mg/dL Critically low 8.4-10.2 Th e [facility] Comment on above: Performed By: #### P REG #### [facility] [address] [address] [address] Katrin Ceja Chloride [Moles/Vol] 103 mmol/L Normal 98-107 [facility] Comment on above: Performed By: #### P REG #### [facility] [address] [address] [address] Katrin Ceja CO2 [Moles/Vol] 26.2 mmol/L Normal 22.0-30.0 [facility] Comment on above: Performed By: #### P REG #### [facility] [address] [address] [address] Katrin Ceja Creatinine [Mass/Vol] 0.81 mg/dL Normal 0.52-1.04 [facility] Comment on above: Performed By: #### P REG #### [facility] [address] [place] [address] Dr. Katrin Ceja EGFR-AF TRINIDADIAN >60 Normal >=60 [facility] Comment on above: Performed By: #### P REG #### [facility] [address] [place] [address] Dr. Katrin Ceja EGFR-NON AF TRINIDADIAN >60 Normal >=60 [facility] Comment on above: Performed By: #### P REG #### [facility] [address] [place] [address] Dr. Katrin Ceja Globulin (S) [Mass/Vol] 4.1 g/dL Normal [facility] Comment on above: Performed By: #### P REG #### [facility] [address] [place] [address] Dr. Katrin Ceja Glucose [Mass/Vol] 90 mg/dL Normal 74-106 [facility] Comment on above: Performed By: #### P REG #### [facility] [address] [place] [address] Dr. Katrin Ceja Potassium [Moles/Vol] 3.7 mmol/L Normal 3.4-5.0 [facility] Comment on above: Performed By: #### P REG #### [facility] [address] [address] [address] Katrin Ceja Protein [Mass/Vol] 7.3 g/dL Normal 6.1-8.2 [facility] Comment on above: Performed By: #### P REG #### [facility] [address] [address] [address] Katrin Ceja Sodium [Moles/Vol] 136 mmol/L Critically low 137-145 [facility] Comment on above: Performed By: #### P REG #### [facility] [address] [place] [address] Dr. Katrin Ceja Urea nitrogen [Mass/Vol] 5.0 mg/dL Critically low 7.0-17.0 [facility] Comment on above: Performed By: #### P REG #### [facility] [address] [place] [address] Dr. Katrin Ceja Urea nitrogen/Creatinine [Mass ratio] 6.2 mg/mg Normal [facility] Comment on above: Performed By: #### P REG #### [facility] [address] [place] [address] Dr. Katrin Ceja URINE MICROSCOPIC ONLYon BACTERIA NONE SEEN Normal NONE SEEN [facility] Comment on above: Performed By: #### C BC #### [facility] [address] [place] [address] Dr. Katrin Ceja Bacteria identified Cx Nom (U) NOT INDICATED Normal [facility] Comment on above: Performed By: #### C BC #### [facility] [address] [place] [address] Dr. Katrin Ceja CAST NONE SEEN Normal NONE SEEN [facility] Comment on above: Performed By: #### C BC #### [facility] [address] [place] [address] Dr. Katrin Ceja Crystals LM Nom (Urine sed) NONE SEEN Normal NONE SEEN [facility] Comment on above: Performed By: #### C BC #### [facility] [address] [place] [address] Dr. Katrin Ceja Epithelial cells LM Ql (Urine sed) FEW Abnormal NONE SEEN /RARE [facility] Comment on above: Performed By: #### C BC #### [facility] [address] [place] [address] Dr. Katrin Ceja MUCOUS NONE SEEN Normal NONE SEEN [facility] Comment on above: Performed By: #### C BC #### [facility] [address] [place] [address] Dr. Katrin Ceja RBC NONE SEEN Abnormal 0-2 [facility] Comment on above: Performed By: #### C BC #### [facility] [address] [place] [address] Dr. Katrin Ceja WBC NONE SEEN Normal NONE SEEN [facility] Comment on above: Performed By: #### C BC #### [facility] [address] [place] [address] Dr. Katrin Ceja XR ABD FLAT UP_PA [...] ISAIAH FAROOQ Date: 2021-09-18 02:00 Normal [facility] CBC AUTO DIFFon 07-18-2021 BASO # 0.0 103/ul Normal 0.0-0.1 [facility] Comment on above: Performed By: #### C BC #### [facility] [address] [place] [address] Dr. Katrin Ceja Basophils/100 WBC (Bld) 0.3 % Normal 0.2-2.0 [facility] Comment on above: Performed By: #### C BC #### [facility] [address] [place] [address] Dr. Katrin Ceja EO # 0.2 103/ul Normal 0.0-0.7 [facility] Comment on above: Performed By: #### C BC #### [facility] [address] [place] [address] Dr. Katrin Ceja Eosinophils/100 WBC (Bld) 1.7 % Normal 0.9-7.0 [facility] Comment on above: Performed By: #### C BC #### [facility] [address] [place] [address] Dr. Katrin Ceja Erythrocyte distribution width (RBC) [Ratio] 13.1 % Normal 11.0-15.0 [facility] Comment on above: Performed By: #### C BC #### [facility] [address] [place] [address] Dr. Katrin Ceja Hematocrit (Bld) [Volume fraction] 42.0 % Normal 36.0-48.0 [facility] Comment on above: Performed By: #### C BC #### [facility] [address] [place] [address] Dr. Katrin Ceja Hemoglobin (Bld) [Mass/Vol] 13.7 g/dL Normal 12.0-16.0 [facility] Comment on above: Performed By: #### C BC #### [facility] [address] [place] [address] Dr. Katrin Ceja IG # 0.07 10e3/ul Critically high 0.00-0.03 [facility] Comment on above: Performed By: #### C BC #### [facility] [address] [place] [address] Dr. Katrin Ceja IG % 0.6 % Critically high 0.0-0.5 [facility] Comment on above: Performed By: #### C BC #### [facility] [address] [place] [address] Dr. Katrin Ceja LYMPH # 2.9 103/ul Normal 1.2-3.8 [facility] Comment on above: Performed By: #### C BC #### [facility] [address] [place] [address] Dr. Katrin Ceja Lymphocytes/100 WBC (Bld) 27.1 % Normal 20.5-60.0 [facility] Comment on above: Performed By: #### C BC #### [facility] [address] [place] [address] Dr. Katrin Ceja MANUAL DIFF REQ NO Normal [facility] Comment on above: Performed By: #### C BC #### [facility] [address] [place] [address] Dr. Katrin Ceja MCH (RBC) [Entitic mass] 29.3 pg Normal 26.7-34.0 [facility] Comment on above: Performed By: #### C BC #### [facility] [address] [place] [address] Dr. Katrin Ceja MCHC (RBC) [Mass/Vol] 32.6 g/dL Normal 29.9-35.2 [facility] Comment on above: Performed By: #### C BC #### [facility] [address] [place] [address] Dr. Katrin Ceja MCV (RBC) [Entitic vol] 89.7 fL Normal 81.0-99.0 [facility] Comment on above: Performed By: #### C BC #### [facility] [address] [place] [address] Dr. Katrin Ceja MONO # 0.9 103/ul Critically high 0.3-0.8 [facility] Comment on above: Performed By: #### C BC #### [facility] [address] [place] [address] Dr. Katrin Ceja Monocytes/100 WBC (Bld) 8.2 % Normal 1.7-12.0 [facility] Comment on above: Performed By: #### C BC #### [facility] [address] [place] [address] Dr. Katrin Ceja NEUT # 6.7 103/ul Critically high 1.4-6.5 [facility] Comment on above: Performed By: #### C BC #### [facility] [address] [place] [address] Dr. Katrin Ceja Neutrophils/100 WBC (Bld) 62.1 % Normal 43.0-75.0 [facility] Comment on above: Performed By: #### C BC #### [facility] [address] [place] [address] Dr. Katrin Ceja Platelet mean volume (Bld) [Entitic vol] 9.7 fL Normal 9.5-13.5 [facility] Comment on above: Performed By: #### C BC #### [facility] [address] [address] [address] Katrin Ceja PLT 334 103/ul Normal 150-450 [facility] Comment on above: Performed By: #### C BC #### [facility] [address] [place] [address] Dr. Katrin Ceja RBC 4.68 106/ul Normal 4.20-5.40 [facility] Comment on above: Performed By: #### C BC #### [facility] [address] [place] [address] Dr. Katrin Ceja WBC 10.8 103/ul Normal 4.0-11.0 [facility] Comment on above: Performed By: #### C BC #### [facility] [address] [place] [address] Dr. Katrin Ceja GLYCOHEMOGLOBIN A1Con 2021 ADA RECOMMENDATION ADA THERAPEUTIC TARG ET 6.0 - 7.0 ACTION SUGGESTED > 7.0 Normal [facility] Comment on above: Performed By: #### C BC #### [facility] [address] [place] [address] Dr. Katrin Ceja Glucose [Mass/Vol] 105 mg/dL Normal [facility] Comment on above: Performed By: #### C BC #### [facility] [address] [place] [address] Dr. Katrin Ceja HbA1c (Bld) [Mass fraction] 5.3 % Normal <=6.0 [facility] Comment on above: Performed By: #### C BC #### [facility] [address] [place] [address] Dr. Katrin Ceja LIPID PROFILEon 07-18-2021 CHOL-HDL RATIO NORM SEE BELOW Normal [facility] Comment on above: Result Comment: 3.3 - 4.4 LOW RISK 4.4 - 7.1 AVERAGE RISK 7.1 - 11.0 MODERATE RISK >11.0 HIGH RISK Performed By: #### L IPID, CMP #### [facility] [address] [address] [address] Katrin Ceja Cholesterol [Mass/Vol] 302 mg/dL Critically high <=200 [facility] Comment on above: Performed By: #### L IPID, CMP #### [facility] [address] [address] [address] Katrin Ceja Cholesterol in HDL [Mass/Vol] 39 mg/dL Normal [facility] Comment on above: Performed By: #### L IPID, CMP #### [facility] [address] [address] [address] Katrin Ceja Cholesterol in LDL [Mass/Vol] 207.0 mg/dL Normal [facility] Comment on above: Performed By: #### L IPID, CMP #### [facility] [address] [place] [address] Dr. Katrin Ceja Cholesterol.total/Chol esterol in HDL [Mass ratio] 7.7 {ratio} Normal [facility] Comment on above: Performed By: #### L IPID, CMP #### [facility] [address] [address] [address] Katrin Ceja HDL NORMAL > or = 60 mg/dl - LO W CARDIOVASCULAR RISK <40 mg/dl - HIGH CARDIOVASCULAR RISK Normal [facility] Comment on above: Performed By: #### L IPID, CMP #### [facility] [address] [address] [address] Katrin Ceja LDL CALC NORMAL SEE BELOW Normal [facility] Comment on above: Result Comment: <100 mg/dl OPTIMAL 100 - 129 mg/dl NEAR OR ABOVE OPTIMAL 130 - 159 mg/dl BORDERLINE HIGH 160 - 189 mg/dl HIGH >190 mg/dl VERY HIGH Performed By: #### L IPID, CMP #### [facility] [address] [address] [address] Katrin Ceja Triglyceride [Mass/Vol] 280 mg/dL Critically high <=150 [facility] Comment on above: Performed By: #### L IPID, CMP #### [facility] [address] [address] [address] Katrin Ceja VLDL CALC 56.0 mg/dL Normal [facility] Comment on above: Performed By: #### L IPID, CMP #### [facility] [address] [place] [address] Dr. Katrin Ceja PROF 14(COMP METB)on 022 Albumin [Mass/Vol] 3.5 g/dL Normal 3.5-5.0 [facility] Comment on above: Performed By: #### L IPID, CMP #### [facility] [address] [place] [address] Dr. Katrin Ceja Albumin/Globulin [Mass ratio] 0.7 {ratio} Normal [facility] Comment on above: Performed By: #### L IPID, CMP #### [facility] [address] [place] [address] Dr. Katrin Ceja ALP [Catalytic activity/Vol] 291 U/L Critically high 38-126 [facility] Comment on above: Performed By: #### L IPID, CMP #### [facility] [address] [place] [address] Dr. Katrin Ceja ALT [Catalytic activity/Vol] 174 U/L Critically high 9-52 [facility] Comment on above: Performed By: #### L IPID, CMP #### [facility] [address] [place] [address] Dr. Katrin Ceja Anion gap [Moles/Vol] 15.3 mmol/L Normal [facility] Comment on above: Performed By: #### L IPID, CMP #### [facility] [address] [place] [address] Dr. Katrin Ceja AST [Catalytic activity/Vol] 97 U/L Critically high 14-36 [facility] Comment on above: Performed By: #### L IPID, CMP #### [facility] [address] [place] [address] Dr. Katrin Ceja Bilirubin [Mass/Vol] 0.4 mg/dL Normal 0.2-1.3 [facility] Comment on above: Performed By: #### L IPID, CMP #### [facility] [address] [address] [address] Katrin Ceja Calcium [Mass/Vol] 9.3 mg/dL Normal 8.4-10.2 [facility] Comment on above: Performed By: #### L IPID, CMP #### [facility] [address] [place] [address] Dr. Katrin Cjea Chloride [Moles/Vol] 99 mmol/L Normal 98-107 [facility] Comment on above: Performed By: #### L IPID, CMP #### [facility] [address] [place] [address] Dr. Katrin Ceja CO2 [Moles/Vol] 24.1 mmol/L Normal 22.0-30.0 [facility] Comment on above: Performed By: #### L IPID, CMP #### [facility] [address] [place] [address] Dr. Katrin Ceja Creatinine [Mass/Vol] 0.65 mg/dL Normal 0.52-1.04 [facility] Comment on above: Performed By: #### L IPID, CMP #### [facility] [address] [place] [address] Dr. Katrin Ceja EGFR-AF TRINIDADIAN >60 Normal >=60 [facility] Comment on above: Performed By: #### L IPID, CMP #### [facility] [address] [place] [address] Dr. Katrin Ceja EGFR-NON AF TRINIDADIAN >60 Normal >=60 [facility] Comment on above: Performed By: #### L IPID, CMP #### [facility] [address] [place] [address] Dr. Katrin Ceja Globulin (S) [Mass/Vol] 5.0 g/dL Normal [facility] Comment on above: Performed By: #### L IPID, CMP #### [facility] [address] [place] [address] Dr. Katrin Ceja Glucose [Mass/Vol] 86 mg/dL Normal 74-106 [facility] Comment on above: Performed By: #### L IPID, CMP #### [facility] [address] [address] [address] Katrin Ceja Potassium [Moles/Vol] 4.4 mmol/L Normal 3.4-5.0 [facility] Comment on above: Performed By: #### L IPID, CMP #### [facility] [address] [address] [address] Katrin Ceja Protein [Mass/Vol] 8.5 g/dL Critically high 6.1-8.2 [facility] Comment on above: Performed By: #### L IPID, CMP #### [facility] [address] [place] [address] Dr. Katrin Ceja Sodium [Moles/Vol] 134 mmol/L Critically low 137-145 [facility] Comment on above: Performed By: #### L IPID, CMP #### [facility] [address] [place] [address] Dr. Katrin Ceja Urea nitrogen [Mass/Vol] 8.0 mg/dL Normal 7.0-17.0 [facility] Comment on above: Performed By: #### L IPID, CMP #### [facility] [address] [place] [address] Dr. Katrin Ceja Urea nitrogen/Creatinine [Mass ratio] 12.3 mg/mg Normal [facility] Comment on above: Performed By: #### L IPID, CMP #### [facility] [address] [place] [address] Dr. Katrin Ceja AMYLASEon 05-01-2021 AMYL <30 Critically low 31-110 [facility] Comment on above: Performed By: #### P REG #### [facility] [address] [address] [address] Katrin Ceja CBC AUTO DIFFon 05-01-2021 BASO # 0.0 103/ul Normal 0.0-0.1 [facility] Comment on above: Performed By: #### L IPID, CMP #### [facility] [address] [address] [address] Katrin Ceja Basophils/100 WBC (Bld) 0.3 % Normal 0.2-2.0 [facility] Comment on above: Performed By: #### L IPID, CMP #### [facility] [address] [place] [address] Dr. Katrin Ceja EO # 0.1 103/ul Normal 0.0-0.7 [facility] Comment on above: Performed By: #### L IPID, CMP #### [facility] [address] [place] [address] Dr. Katrin Ceja Eosinophils/100 WBC (Bld) 0.4 % Critically low 0.9-7.0 [facility] Comment on above: Performed By: #### L IPID, CMP #### [facility] [address] [place] [address] Dr. Katrin Ceja Erythrocyte distribution width (RBC) [Ratio] 13.0 % Normal 11.0-15.0 [facility] Comment on above: Performed By: #### L IPID, CMP #### [facility] [address] [place] [address] Dr. Katrin Ceja Hematocrit (Bld) [Volume fraction] 37.7 % Normal 36.0-48.0 [facility] Comment on above: Performed By: #### L IPID, CMP #### [facility] [address] [place] [address] Dr. Katrin Ceja Hemoglobin (Bld) [Mass/Vol] 12.5 g/dL Normal 12.0-16.0 [facility] Comment on above: Performed By: #### L IPID, CMP #### [facility] [address] [place] [address] Dr. Katrin Ceja IG # 0.09 10e3/ul Critically high 0.00-0.03 [facility] Comment on above: Performed By: #### L IPID, CMP #### [facility] [address] [place] [address] Dr. Katrin Ceja IG % 0.6 % Critically high 0.0-0.5 [facility] Comment on above: Performed By: #### L IPID, CMP #### [facility] [address] [place] [address] Dr. Katrin Ceja LYMPH # 1.9 103/ul Normal 1.2-3.8 [facility] Comment on above: Performed By: #### L IPID, CMP #### [facility] [address] [place] [address] Dr. Katrin Ceja Lymphocytes/100 WBC (Bld) 12.1 % Critically low 20.5-60.0 [facility] Comment on above: Performed By: #### L IPID, CMP #### [facility] [address] [place] [address] Dr. Katrin Ceja MANUAL DIFF REQ NO Normal [facility] Comment on above: Performed By: #### L IPID, CMP #### [facility] [address] [place] [address] Dr. Katrin Ceja MCH (RBC) [Entitic mass] 28.8 pg Normal 26.7-34.0 [facility] Comment on above: Performed By: #### L IPID, CMP #### [facility] [address] [place] [address] Dr. Katrin Ceja MCHC (RBC) [Mass/Vol] 33.2 g/dL Normal 29.9-35.2 [facility] Comment on above: Performed By: #### L IPID, CMP #### [facility] [address] [place] [address] Dr. Katrin Ceja MCV (RBC) [Entitic vol] 86.9 fL Normal 81.0-99.0 [facility] Comment on above: Performed By: #### L IPID, CMP #### [facility] [address] [place] [address] Dr. Katrin Ceja MONO # 1.1 103/ul Critically high 0.3-0.8 [facility] Comment on above: Performed By: #### L IPID, CMP #### [facility] [address] [place] [address] Dr. Katrin Ceja Monocytes/100 WBC (Bld) 7.1 % Normal 1.7-12.0 [facility] Comment on above: Performed By: #### L IPID, CMP #### [facility] [address] [address] [address] Katrin Ceja NEUT # 12.3 103/ul Critically high 1.4-6.5 [facility] Comment on above: Performed By: #### L IPID, CMP #### [facility] [address] [address] [address] Katrin Ceja Neutrophils/100 WBC (Bld) 79.5 % Critically high 43.0-75.0 [facility] Comment on above: Performed By: #### L IPID, CMP #### [facility] [address] [address] [address] Katrin Ceja Platelet mean volume (Bld) [Entitic vol] 8.7 fL Critically low 9.5-13.5 [facility] Comment on above: Performed By: #### L IPID, CMP #### [facility] [address] [place] [address] Dr. Katrin Ceja PLT 329 103/ul Normal 150-450 [facility] Comment on above: Performed By: #### L IPID, CMP #### [facility] [address] [address] [address] Katrin Ceja RBC 4.34 106/ul Normal 4.20-5.40 [facility] Comment on above: Performed By: #### L IPID, CMP #### [facility] [address] [place] [address] Dr. Katrin Ceja WBC 15.5 103/ul Critically high 4.0-11.0 [facility] Comment on above: Performed By: #### L IPID, CMP #### [facility] [address] [place] [address] ABD/PELV W CONon [...] by: HILDA RAHMAN Date: 2021-05-01 20:30 Normal [facility] LIPASEon 05-01-2021 Lipase [Catalytic activity/Vol] 64.0 U/L Normal 23.0-300.0 [facility] Comment on above: Performed By: #### P REG #### [facility] [address] [place] [address] Dr. Katrin Ceja LIVER PROFILEon 05-01-2021 Albumin [Mass/Vol] 3.3 g/dL Critically low 3.5-5.0 Th e [facility] Comment on above: Performed By: #### L IPID, CMP #### [facility] [address] [address] [address] Katrin Ceja Albumin/Globulin [Mass ratio] 0.6 {ratio} Normal [facility] Comment on above: Performed By: #### L IPID, CMP #### [facility] [address] [place], [place] [address] Dr. Katrin Ceja ALP [Catalytic activity/Vol] 412 U/L Critically high 38-126 [facility] Comment on above: Performed By: #### L IPID, CMP #### [facility] [address] [address] [address] Katrin Ceja ALT [Catalytic activity/Vol] 124 U/L Critically high 9-52 [facility] Comment on above: Performed By: #### L IPID, CMP #### [facility] [address] [address] [address] Katrin Ceja AST [Catalytic activity/Vol] 61 U/L Critically high 14-36 [facility] Comment on above: Performed By: #### L IPID, CMP #### [facility] [address] [address] [address] Katrin Ceja BILI, CONJUGATED 0.2 mg/dL Normal 0.0-0.3 [facility] Comment on above: Performed By: #### L IPID, CMP #### [facility] [address] [address] [address] Katrin Ceja Bilirubin [Mass/Vol] 0.4 mg/dL Normal 0.2-1.3 [facility] Comment on above: Performed By: #### L IPID, CMP #### [facility] [address] [address] [address] Katrin Ceja Globulin (S) [Mass/Vol] 5.1 g/dL Normal [facility] Comment on above: Performed By: #### L IPID, CMP #### [facility] [address] [address] [address] Katrin Ceja Protein [Mass/Vol] 8.4 g/dL Critically high 6.1-8.2 [facility] Comment on above: Performed By: #### L IPID, CMP #### [facility] [address] [address] [address] Katrin Ceja PREG HCG QUALon 05-01-2021 , QUAL Negative Normal NEGATIVE [facility] Comment on above: Performed By: #### P REG #### [facility] [address] [address] [address] Katrin Ceja PROF CHEM 8 (BAS METB)on Anion gap [Moles/Vol] 17.1 mmol/L Normal [facility] Comment on above: Performed By: #### P REG #### [facility] [address] [place] [address] Dr. Katrin Ceja Calcium [Mass/Vol] 8.9 mg/dL Normal 8.4-10.2 [facility] Comment on above: Performed By: #### P REG #### [facility] [address] [address] [address] Katrin Ceja Chloride [Moles/Vol] 100 mmol/L Normal 98-107 [facility] Comment on above: Performed By: #### P REG #### [facility] [address] [address] [address] Katrin Ceja CO2 [Moles/Vol] 21.1 mmol/L Critically low 22.0-30.0 [facility] Comment on above: Performed By: #### P REG #### [facility] [address] [address] [address] Katrin Ceja Creatinine [Mass/Vol] 0.78 mg/dL Normal 0.52-1.04 [facility] Comment on above: Performed By: #### P REG #### [facility] [address] [place] [address] Dr. Katrin Ceja EGFR-AF TRINIDADIAN >60 Normal >=60 [facility] Comment on above: Performed By: #### P REG #### [facility] [address] [place] [address] Dr. Katrin Ceja EGFR-NON AF TRINIDADIAN >60 Normal >=60 [facility] Comment on above: Performed By: #### P REG #### [facility] [address] [address] [address] Katrin Ceja Glucose [Mass/Vol] 97 mg/dL Normal 74-106 [facility] Comment on above: Performed By: #### P REG #### [facility] [address] [address] [address] Katrin Ceja Potassium [Moles/Vol] 4.2 mmol/L Normal 3.4-5.0 [facility] Comment on above: Performed By: #### P REG #### [facility] [address] [address] [address] Katrin Ceja Sodium [Moles/Vol] 134 mmol/L Critically low 137-145 [facility] Comment on above: Performed By: #### P REG #### [facility] [address] [place] [address] Dr. Katrin Ceja Urea nitrogen [Mass/Vol] 6.0 mg/dL Critically low 7.0-17.0 [facility] Comment on above: Performed By: #### P REG #### [facility] [address] [address] [address] Katrin Ceja Urea nitrogen/Creatinine [Mass ratio] 7.7 mg/mg Normal [facility] Comment on above: Performed By: #### P REG #### [facility] [address] [place] [address] Dr. Katrin Ceja CBC AUTO DIFFon 04-29-2021 BASO # 0.1 103/ul Normal 0.0-0.1 [facility] Comment on above: Performed By: #### L IPID, CMP #### [facility] [address] [address] [address] Katrin Ceja Basophils/100 WBC (Bld) 0.4 % Normal 0.2-2.0 [facility] Comment on above: Performed By: #### L IPID, CMP #### [facility] [address] [address] [address] Katrin Ceja EO # 0.2 103/ul Normal 0.0-0.7 [facility] Comment on above: Performed By: #### L IPID, CMP #### [facility] [address] [address] [address] Katrin Ceja Eosinophils/100 WBC (Bld) 1.7 % Normal 0.9-7.0 [facility] Comment on above: Performed By: #### L IPID, CMP #### [facility] [address] [place] [address] Dr. Katrin Ceja Erythrocyte distribution width (RBC) [Ratio] 12.9 % Normal 11.0-15.0 [facility] Comment on above: Performed By: #### L IPID, CMP #### [facility] [address] [place] [address] Dr. Katrin Ceja Hematocrit (Bld) [Volume fraction] 39.0 % Normal 36.0-48.0 [facility] Comment on above: Performed By: #### L IPID, CMP #### [facility] [address] [place] [address] Dr. Katrin Ceja Hemoglobin (Bld) [Mass/Vol] 12.9 g/dL Normal 12.0-16.0 [facility] Comment on above: Performed By: #### L IPID, CMP #### [facility] [address] [place] [address] Dr. Katrin Ceja IG # 0.08 10e3/ul Critically high 0.00-0.03 [facility] Comment on above: Performed By: #### L IPID, CMP #### [facility] [address] [place] [address] Dr. Katrin Ceja IG % 0.6 % Critically high 0.0-0.5 [facility] Comment on above: Performed By: #### L IPID, CMP #### [facility] [address] [place] [address] Dr. Katrin Ceja LYMPH # 3.2 103/ul Normal 1.2-3.8 [facility] Comment on above: Performed By: #### L IPID, CMP #### [facility] [address] [place] [address] Dr. Katrin Ceja Lymphocytes/100 WBC (Bld) 24.4 % Normal 20.5-60.0 [facility] Comment on above: Performed By: #### L IPID, CMP #### [facility] [address] [place] [address] Dr. Katrin Ceja MANUAL DIFF REQ NO Normal [facility] Comment on above: Performed By: #### L IPID, CMP #### [facility] [address] [place] [address] Dr. Katrin Ceja MCH (RBC) [Entitic mass] 29.1 pg Normal 26.7-34.0 [facility] Comment on above: Performed By: #### L IPID, CMP #### [facility] [address] [place] [address] Dr. Katrin Ceja MCHC (RBC) [Mass/Vol] 33.1 g/dL Normal 29.9-35.2 [facility] Comment on above: Performed By: #### L IPID, CMP #### [facility] [address] [place] [address] Dr. Katrin Ceja MCV (RBC) [Entitic vol] 88.0 fL Normal 81.0-99.0 [facility] Comment on above: Performed By: #### L IPID, CMP #### [facility] [address] [place] [address] Dr. Katrin Ceja MONO # 1.2 103/ul Critically high 0.3-0.8 [facility] Comment on above: Performed By: #### L IPID, CMP #### [facility] [address] [place] [address] Dr. Katrin Ceja Monocytes/100 WBC (Bld) 9.2 % Normal 1.7-12.0 [facility] Comment on above: Performed By: #### L IPID, CMP #### [facility] [address] [place] [address] Dr. Katrin Ceja NEUT # 8.3 103/ul Critically high 1.4-6.5 [facility] Comment on above: Performed By: #### L IPID, CMP #### [facility] [address] [address] [address] Katrin Ceja Neutrophils/100 WBC (Bld) 63.7 % Normal 43.0-75.0 [facility] Comment on above: Performed By: #### L IPID, CMP #### [facility] [address] [place] [address] Dr. Katrin Ceja Platelet mean volume (Bld) [Entitic vol] 9.2 fL Critically low 9.5-13.5 [facility] Comment on above: Performed By: #### L IPID, CMP #### [facility] [address] [place] [address] Dr. Katrin Ceja PLT 384 103/ul Normal 150-450 [facility] Comment on above: Performed By: #### L IPID, CMP #### [facility] [address] [place] [address] Dr. Katrin Ceja RBC 4.43 106/ul Normal 4.20-5.40 [facility] Comment on above: Performed By: #### L IPID, CMP #### [facility] [address] [place] [address] Dr. Katrin Ceja WBC 13.1 103/ul Critically high 4.0-11.0 [facility] Comment on above: Performed By: #### L IPID, CMP #### [facility] [address] [place] [address] ABD/PELV W CONon [...] by: Lorenzo LAN Date: 2021-04-29 02:49 Normal [facility] LACTATE/LACTIC ACIDon 2020 Lactate [Moles/Vol] 1.2 mmol/L Normal 0.7-2.0 [facility] Comment on above: Performed By: #### C BC #### [facility] [address] [place] [address] Dr. Katrin Ceja PROF 14(COMP METB)on 021 Albumin [Mass/Vol] 3.4 g/dL Critically low 3.5-5.0 [facility] Comment on above: Performed By: #### C BC #### [facility] [address] [place] [address] [id number] [address] Katrin Ceja Albumin/Globulin [Mass ratio] 0.7 {ratio} Normal [facility] Comment on above: Performed By: #### C BC #### [facility] [address] [place] [address] Dr. Katrin Ceja ALP [Catalytic activity/Vol] 359 U/L Critically high 38-126 [facility] Comment on above: Performed By: #### C BC #### [facility] [address] [place] [address] Dr. Katrin Ceja ALT [Catalytic activity/Vol] 193 U/L Critically high 9-52 [facility] Comment on above: Performed By: #### C BC #### [facility] [address] [place] [address] Dr. Katrin Ceja Anion gap [Moles/Vol] 13.3 mmol/L Normal Th [facility] Comment on above: Performed By: #### C BC #### [facility] [address] [place] [address] Dr. Katrin Ceja AST [Catalytic activity/Vol] 115 U/L Critically high 14-36 [facility] Comment on above: Performed By: #### C BC #### [facility] [address] [place] [address] Dr. Katrin Ceja Bilirubin [Mass/Vol] 0.5 mg/dL Normal 0.2-1.3 [facility] Comment on above: Performed By: #### C BC #### [facility] [address] [place] [address] Dr. Katrin Ceja Calcium [Mass/Vol] 9.5 mg/dL Normal 8.4-10.2 [facility] Comment on above: Performed By: #### C BC #### [facility] [address] [place] [address] Dr. Katrin Ceja Chloride [Moles/Vol] 101 mmol/L Normal 98-107 [facility] Comment on above: Performed By: #### C BC #### [facility] [address] [place] [address] Dr. Katrin Ceja CO2 [Moles/Vol] 23.7 mmol/L Normal 22.0-30.0 [facility] Comment on above: Performed By: #### C BC #### [facility] [address] [place] [address] Dr. Katrin Ceja Creatinine [Mass/Vol] 0.83 mg/dL Normal 0.52-1.04 [facility] Comment on above: Performed By: #### C BC #### [facility] [address] [address] [address] Katrin Ceja EGFR-AF TRINIDADIAN >60 Normal >=60 [facility] Comment on above: Performed By: #### C BC #### [facility] [address] [address] [address] Katrin Ceja EGFR-NON AF TRINIDADIAN >60 Normal >=60 [facility] Comment on above: Performed By: #### C BC #### [facility] [address] [address] [address] Katrin Ceja Globulin (S) [Mass/Vol] 5.1 g/dL Normal [facility] Comment on above: Performed By: #### C BC #### [facility] [address] [address] [address] Katrin Ceja Glucose [Mass/Vol] 102 mg/dL Normal 74-106 [facility] Comment on above: Performed By: #### C BC #### [facility] [address] [address] [address] Katrin Ceja Potassium [Moles/Vol] 4.0 mmol/L Normal 3.4-5.0 [facility] Comment on above: Performed By: #### C BC #### [facility] [address] [address] [address] Katrin Ceja Protein [Mass/Vol] 8.5 g/dL Critically high 6.1-8.2 [facility] Comment on above: Performed By: #### C BC #### [facility] [address] [address] [address] Katrin Ceja Sodium [Moles/Vol] 134 mmol/L Critically low 137-145 [facility] Comment on above: Performed By: #### C BC #### [facility] [address] [address] [address] Katrin Ceja Urea nitrogen [Mass/Vol] 6.0 mg/dL Critically low 7.0-17.0 [facility] Comment on above: Performed By: #### C BC #### [facility] [address] [place], [place] [address] Dr. Katrin Ceja Urea nitrogen/Creatinine [Mass ratio] 7.2 mg/mg Normal [facility] Comment on above: Performed By: #### C BC #### [facility] [address] [place], [place] [address] Dr. Katrin Ceja XR CHEST 1 Von [...] by: HILDA GU Date: 2021-04-28 23:45 Normal [facility] Acetaminophen (Tylenol) Leve thi 03-22-2019 Acetaminophen [Mass/Vol] <10 Normal 10.0-30.0 [facility] Comment on above: Performed By: #### 1 4581-3, 64298-5, 01777-2, 97360-9r7, 71529-8, 94058-0 #### [facility] [address], [place] Alcohol (Ethanol) Levelon Ethanol [Mass/Vol] mg/dL Normal 0.00-0.00 [facility] Comment on above: Performed By: #### 1 4581-3, 03709-4, 39263-7, 66738-6e4, 60166-3, 04152-0 #### [facility] [address], [place] CBC with Differentialon Basophils (Bld) [#/Vol] 0.10 thou/mcL Normal 0.00-0.20 [facility] Comment on above: Performed By: #### 5 7021-8 #### [facility] [address], [place] Basophils/100 WBC (Bld) 0.7 % Normal 0.0-2.0 [facility] Comment on above: Performed By: #### 5 7021-8 #### [facility] Eosinophils (Bld) [#/Vol] 0.40 thou/mcL Normal 0.00-0.70 [facility] Comment on above: Performed By: #### 7021-8 #### [facility] [address] [place] [address] Eosinophils/100 WBC (Bld) 3.7 % Normal 0.0-7.0 [facility] Comment on above: Performed By: #### 7021-8 #### [address] Erythrocyte distribution width (RBC) [Entitic vol] 12.6 % Normal 11.0-14.8 [facility] Comment on above: Performed By: #### 7021-8 #### [address] Hematocrit (Bld) [Volume fraction] 38.5 % Normal 35.0-45.0 [facility] Comment on above: Performed By: #### 5 7021-8 #### [address] Hemoglobin (Bld) [Mass/Vol] 13.3 g/dL Normal 12.0-16.0 [facility] Comment on above: Performed By: #### 5 7021-8 #### [address] Lymphocytes (Bld) [#/Vol] 3.10 thou/mcL Normal 1.00-4.80 [facility] Comment on above: Performed By: #### 5 7021-8 #### [address] Lymphocytes/100 WBC (Bld) 30.1 % Normal 22.0-44.0 [facility] Comment on above: Performed By: #### 5 7021-8 #### [address],[place] MCH (RBC) [Entitic mass] 30.8 Picograms Normal 27.0-34.0 [facility] Comment on above: Performed By: #### 5 7021-8 #### [address] MCHC (RBC) [Mass/Vol] 34.7 g/dL Normal 32.0-36.[address] [facility] Comment on above: Performed By: #### 5 7021-8 #### [address] MCV (RBC) [Entitic vol] 88.8 fL Normal 80.0-97.0 [facility] Comment on above: Performed By: #### 5 7021-8 #### [address] Monocytes (Bld) [#/Vol] 1.10 thou/mcL High 0.00-0.90 [facility] Comment on above: Performed By: #### 5 7021-8 #### [address] Monocytes/100 WBC (Bld) 10.4 % Normal 0.0-12.0 [facility] Comment on above: Performed By: #### 5 7021-8 #### [address] Neutrophils (Bld) [#/Vol] 5.60 thou/mcL Normal 1.80-7.70 [facility] Comment on above: Performed By: #### 5 7021-8 #### [address] Neutrophils/100 WBC (Bld) 55.1 % Normal 40.0-70.0 [facility] Comment on above: Performed By: #### 5 7021-8 #### [facility] [address] [place] [address] Platelet mean volume (Bld) [Entitic vol] 7.5 fL Normal 6.2-12.1 [facility] Comment on above: Performed By: #### 5 7021-8 #### [facility] [address], [place] Platelets (Bld) [#/Vol] 280 thou/mcL Normal 142-424 [facility] Comment on above: Performed By: #### 5 7021-8 #### [facility] [address] [place], [place] RBC (Bld) [#/Vol] 4.33 million/mcL Normal 3.80-5.[address] [facility] Comment on above: Performed By: #### 5 7021-8 #### [facility] [address], [place] WBC (Bld) [#/Vol] 10.2 thou/mcL Normal 4.6-10.2 [facility] on above: Performed By: #### 5 7021-8 #### [facility] [address] [place], [place] Comprehensive Metabolic Pane thi 03-22-2019 Albumin [Mass/Vol] 4.2 g/dL Normal 3.5-4.8 [facility] Comment on above: Performed By: #### 1 4581-3, 00593-1, 22696-6, 43051-6m9, 33127-8, 95708-0 #### [facility] [address] [place], [place] ALP [Catalytic activity/Vol] 96 Units/L High 32-91 [facility] Comment on above: Performed By: #### 1 4581-3, 20559-9, 95134-2, 79288-5y7, 95066-8, 97211-6 #### [facility] [address] [place], [place] ALT [Catalytic activity/Vol] 25 Units/L Normal 14-63 [facility] Comment on above: Performed By: #### 1 4581-3, 53968-4, 86875-5, 38703-8p0, 89241-3, 44042-2 #### [facility] [address] [place], [place] Anion gap [Moles/Vol] 9.0 mmol/L Normal 6.0-18.0 [facility] Comment on above: Performed By: #### 1 4581-3, 09288-8, 58169-1, 52799-4l7, 98839-1, 44001-9 #### [facility] [address] [place], [place] AST [Catalytic activity/Vol] 24 Units/L Normal 15-41 [facility] Comment on above: Performed By: #### 1 4581-3, 17808-3, 96215-6, 52016-3c7, 14687-8, 66459-3 #### [facility] [address] [place], [place] Bilirubin [Mass/Vol] 0.5 mg/dL Normal 0.3-1.2 [facility] Comment on above: Performed By: #### 1 4581-3, 80495-3, 89298-8, 90307-1v7, 09853-9, 99783-5 #### [address] [place], [place] Calcium [Mass/Vol] 8.9 mg/dL Normal 8.9-10.3 [facility] Comment on above: Performed By: #### 1 4581-3, 17881-9, 03925-1, 41070-1j4, 65262-0, 75310-1 #### [facility] [address] [place], [place] Chloride [Moles/Vol] 107 mmol/L Normal 98-107 [facility] Comment on above: Performed By: #### 1 4581-3, 80019-1, 07127-2, 14893-9y8, 10993-1, 50056-7 #### [facility] [address] [place], [place] CO2 [Moles/Vol] 23 mmol/L Normal 22-32 [facility] Comment on above: Performed By: #### 1 4581-3, 16578-3, 25723-2, 46464-0e4, 45747-9, 08535-9 #### [facility] [address] [place], [place] Creatinine [Mass/Vol] 0.68 mg/dL Normal 0.60-1.[address] [facility] Comment on above: Performed By: #### 1 4581-3, 58039-2, 84093-7, 32984-3z3, 43962-5, 60811-4 #### [facility] [address], [place] Glucose [Mass/Vol] 90 mg/dL Normal 70-99 [facility] Comment on above: Result Comment: U pdated ADA Reference Range A normal fasting glucose concentration is less than 100 mg/dL. An impaired fasting glucose concentration is 100-125 mg/dL. A provisional diagnosis of diabetes mellitus can be made when a fasting glucose concentration is greater than 125 mg/dL. Performed By: #### 1 4581-3, 41298-2, 01656-4, 00331-4p6, 60310-6, 46603-6 #### [address] Potassium [Moles/Vol] 3.4 mmol/L Low 3.6-5.[address] [facility] Comment on above: Performed By: #### 1 4581-3, 89542-2, 08794-9, 96521-9f3, 68676-2, 11093-2 #### [address] [place], [place] Protein [Mass/Vol] 7.4 g/dL Normal 6.1-7.9 [facility] Comment on above: Performed By: #### 1 4581-3, 54239-6, 80955-3, 12249-1l2, 23527-6, 24825-8 #### [facility] [address] [place], [place] Sodium [Moles/Vol] 139 mmol/L Normal 136-145 [facility] Comment on above: Performed By: #### 1 4581-3, 62775-6, 07592-1, 89512-2b3, 64099-2, 14798-5 #### [facility] [address] [place], [place] Urea nitrogen (BldV) [Mass/Vol] 17 mg/dL Normal 8-20 [facility] Comment on above: Performed By: #### 1 4581-3, 35407-2, 00162-8, 06199-9a2, 78643-4, 10961-5 #### [facility] [address] [place], [place] Drug Abuse Screen 8 Urineon 03-22-2019 Barbiturates Screen Ql (U) Negative Normal [facility] Comment on above: Performed By: #### 1 2286-1 #### [address] Amphetamines Ql (U) Positive Abnormal [facility] Comment on above: Result Comment: Conf irmatory testing available upon request. Performed By: #### 1 2286-1 #### [address] Benzodiazepines cutoff Screen (U) [Mass/Vol] Negative Normal [facility] Comment on above: Performed By: #### 1 2286-1 #### [address] Cocaine Ql (U) Positive Abnormal [facility] Comment on above: Result Comment: Conf irmatory testing available upon request. Performed By: #### 1 2286-1 #### [address] Interpretation and review of laboratory results Negative Normal [facility] Comment on above: Performed By: #### 1 2286-1 #### [address] Methadone Screen Ql (U) Negative Normal NEGATIVE-N EGATIVE [facility] Comment on above: Performed By: #### 1 2286-1 #### [facility] [address] [place] [address] Opiates Screen Ql (U) Negative Normal [facility] Comment on above: Result Comment: INTE [...] ONLY. Performed By: #### 1 2286-1 #### [address] Tetrahydrocannabinol Screen Ql (U) Positive Abnormal [facility] Comment on above: Result Comment: Conf irmatory testing available upon request. Performed By: #### 1 2286-1 #### [address] ED Pat Eduon 03-22-[address] [address] Emergency Department Discharge Instructions JENNIFER [...] [facility] Emer[facility] Name JENNIFER ENGLE MRN ([facility])-[id number] PLEASE READ THE FOLLOWING REGARDING YOUR MEDICATIONS [...] doses are changed, or new medications (including bxla-pky-yvycnys products) are added. If you have any [...] UNTIL YOU TALK TO YOUR DOCTOR None [facility] [address] [place], [place] [address] Emergency Department Discharge Instructions Name: JENNIFER ENGLE Current Date: 03/22/2019 19:32:22 : 1995 Primary Physician: Physician, No PCP We would like to thank you for choosing [facility] for your emergency medical needs. We examined [...] and the health of those around you. [facility] offers many resources to help with smoking cessation. Call the [place] Tobacco Quit Line at 3-868-CXEG-NOW ( ). High blood pressure: Your screening [...] deadly infections. Discuss this with your child's hospice office coordinator, or Public Health Department. Your family practice doctor can determine if you need pneumonia or flu vaccine. The [place] [facility] can be reached at . Substance Abuse Program: Concerns with addiction to alcohol, benzodiazepines (Ativan or Xanax) and Opiates (Heroin, Percocet, OxyContin, Methadone or Fentanyl)? [facility] offers an inpatient Substance Abuse Program to help treat the symptoms associated with medical detoxification of addictive substances. The new program offers care for non- adults (18 and older) looking to break the chain to addictive chemicals. The Substance Abuse Program is a voluntary inpatient admission and it starts with a pre-screening phone call to a social services technician. During the call, goals and objectives for recovery and how the patient will transition to outpatient care will be established. Please call [phone] to get help today. Domestic Violence: If you are a victim of domestic violence (physical, verbal, or emotional), you are not alone. Discuss this with your physician or a friend and call the [place] Domestic Violence Hotline or [place] Domestic Violence Hotline for assistance and support. [...] physician, call the Physician Referral Line at (934) 318-TCNX (9676). Suicide Hotline: Your mental and emotional well-being is important. If you are in a mental health crisis or are having thoughts of suicide, please call the nationwide suicide hotline, anytime day or night, at 4-978-494-WRYC (1047). Community Hospice Case Manager: You may be contacted by your local fire department for a follow up visit from a community oracle technical architect. The community oracle technical architect can help with a home safety check; follow up care, and general home care management. Pharmacy Information: Below is a list of 24 hour pharmacies that we are aware of. We suggest that you call the specific pharmacy for their hours before traveling to a location. Hours may vary on holidays. [facility] [address] [place], [place] [phone] [place], [place] [address] [phone] [address] [place], [place] [address] [phone] [address], [place] [phone] [address] [place], [place] [phone] [address], [place] [phone] [address] [place], [place] [phone] Take all medications as directed. If you need prescription assistance, contact the following agencies: ?? Partnership for Prescription Assistance at or www.pparx.org ?? [place]' [facility] at or www.Questrabestrx.org ?? www.HalldisRx.Getit InfoServices is a site with many valuable coupons Patient Education Materials JENNIFER ENGLE has been given the following patient education materials: <><><><><><><><><><><><>< ><><><><><><><><><><><><> <> Patient Visit Summary Signature JENNIFER ENGLE has been given the following list of patient education materials, prescriptions and follow-up instructions: IPAL MARIAH E, have received the above patient education materials/instructions and have verbalized understanding: Date Time Patient Signature Date Time Provider Signature Normal [facility] GFRaaon 03-22-2019 GFR/1.73 sq M predicted among blacks MDRD (S/P/Bld) [Vol rate/Area] mL/min/{1.73_m2} Normal [facility] Comment on above: Result Comment: The MDRD equation has not been validated for those over 70 years, women, patients with serious co-morbid conditions, or with extremes of body size, muscle mass of nutritional status. Performed By: #### 1 4581-3, 90748-6, 34567-8, 59976-7a5, 21074-2, 29792-8 #### [address] GFRbbon 03-22-2019 GFR/1.73 sq M predicted among non-blacks MDRD (S/P/Bld) [Vol rate/Area] mL/min/{1.73_m2} [facility] Comment on above: Performed By: #### 1 4581-3, 23211-7, 78660-0, 56016-7c2, 80488-0, 54099-9 #### [facility] [address] [place], [place] Test Urineon 03-22 HCG ( test) Ql (U) Negative [facility] Comment on above: Performed By: #### 2 106-3 #### [facility] [address] [place], [place] Salicylate Levelon 9 Salicylates [Mass/Vol] mg/dL Normal 2.8-30.0 Mo [facility] Comment on above: Performed By: #### 1 4581-3, 66829-8, 54829-0, 88900-8i0, 45574-6, 09748-0 #### [facility] [address] [place], [place] Medication Managementon 100 Medication Management [id number]#1.00OTGTIF F Normal [facility] ED Clinical Summaryon 2017 ED Clinical Summary [facility] - Emergency [address] [place] [address] ed Clinical SummaryPERSON INFORMATIONName: JENNIFER ENGLE Age: 22 Years Sex: FEMALEDOB: [birth year] MRN: Acct#:Visit Reason: Dental pain; Dental pain; DENTAL PAIN Arrival: 04/11/18 20:21:00 Discharge: 04/11/18 20:55:00LOS: 000 00:34 Check In: 04/11/18 20:21:00 Checkout:04/11/18 20:55:00Address:[address] [facility] [facility] [address]YMS: SOLOMON WATTSPROVIDER INFORMATIONProvider Role Assigned UnassignedAlistair Max [...] 04/11/18 20:29:00.Dental caries, dental painHistory of Present Pzejgmk93-bpla-nhh white female presents to the emergency room [...] her poor dental state..Impression and PlanDiagnosisDental caries (YXD05-JO K02.9, Discharge, Medical)Pain, dental (QGV63-NS K08.89, Discharge, Medical)PlanCondition: Improved, Stable.Disposition: Discharged: to home.Prescriptions: Launch prescriptionsPharmacy:tra MADol 50 mg oral tablet (Prescribe): 50 mg = 1 tab(s), PO, q4hr, PRN: as needed for pain, 12 tab(s), 0 Refill(s)amoxicillin 500 mg oral capsule (Prescribe): 1,000 mg = 2 cap(s), PO, BID, 40 cap(s), 0 Refill(s).Patient was given the following educational materials: Dental Pain, Xksz-nj-Fuwb, Dental Caries, Adult, Vkhc-ey-Dkkb, Dental Caries, Adult, Qrxg-th-Urvq, Dental Pain, Lvmn-st-Nqkk.Follow up with: SOLOMON WATTS Within 3 to 5 days.Counseled: Patient, Regarding diagnosis, Regarding treatment plan, Regarding prescription, Patient indicated understanding of instructions.DISCHARGE INFORMATION:Discharge Disposition: HomeDischarge Location: HomePATIENT EDUCATION INFORMATIONInstructions: Dental Caries, Adult, Ibvo-oj-Ogek; Dental Pain, Gudh-ud-FbxhInxiyd-Up:Wit h: Address: When:SOLOMON WATTS [address] [place], [place] [id number] [facility] [place] (1) Within 3 to 5 daysDIAGNOSIS:Dental caries; Dental pain; Pain, dentalPatient Understands: Yes - Patient/family/caregiver verbalizes understanding of instructions givenComment: [facility] Note - Physicianon 2017 ED Note - Physician Patient: DOMINIC ENGLE : 22 years Sex: FEMALE : [birth year]Associated Diagnoses: Dental caries; Pain, dentalAuthor: Alistair Max InformationTime seen: Date & time 04/11/18 20:29:00.Dental caries, dental painHistory of Present Wqazttn16-pirp-pip white female presents to the emergency room [...] her poor dental state..Impression and PlanDiagnosisDental caries (FYJ65-IX K02.9, Discharge, Medical)Pain, dental (LFS56-AN K08.89, Discharge, Medical)PlanCondition: Improved, Stable.Disposition: Discharged: to home.Prescriptions: Launch prescriptionsPharmacy:tra MADol 50 mg oral tablet (Prescribe): 50 mg = 1 tab(s), PO, q4hr, PRN: as needed for pain, 12 tab(s), 0 Refill(s)amoxicillin 500 mg oral capsule (Prescribe): 1,000 mg = 2 cap(s), PO, BID, 40 cap(s), 0 Refill(s).Patient was given the following educational materials: Dental Pain, Imwi-wu-Soxy, Dental Caries, Adult, Fxyu-mx-Lygs, Dental Caries, Adult, Isoy-tf-Soml, Dental Pain, Oylu-oy-Yvja.Follow up with: SOLOMON WATTS Within 3 to 5 days.Counseled: Patient, Regarding diagnosis, Regarding treatment plan, Regarding prescription, Patient indicated understanding of instructions.[Electronica satishy Signed on: 04/11/2018 20:42 EDT] Alistair Salomon MD[Verified on: 04/11/2018 20:42 EDT] Alistair Salomon MD [facility] ED Patient Education Noteon 04-11-2018 ED [...] mouth and teeth. This keeps them healthy.? [place] your teeth 2 times a day. Use toothpaste with fluoride in it.? Floss your teeth once a day.? If your dentist prescribed an antibiotic medicine to treat an infection, take it as told. Do not stop taking the antibiotic even if your condition gets better.? Keep all follow-up visits as told by your dentist. This is important. This includes all cleanings.Preventing dental caries? [place] your teeth every morning and night. Use [...] Reviewed: 03/17/2017Kenny Interactive Patient Education ? 2017 [employer].Dental PainDental pain may be caused by many [...] Reviewed: 06/27/2015Jerievier Interactive Patient Education ? 2018 [employer]. [facility] ED Patient Summaryon 018 ED Patient Summary [facility] - Emergency [address] [place] [address] pATIENT DISCHARGE INSTRUCTIONSPatient InformationName: JENNIFER ENGLE Age: 22 YearsDate of : [birth year]MRN: [id number] For Visit: Dental pain; Dental pain; DENTAL PAINArrival Time: 04/11/18 20:21:00Phone: Primary Care Physician: Maryam WATTS Physician: Alistair Max MDComment:Visit Diagnosis:Diagnoses This Visit Dental caries (K02.9) Dental pain (K08.8) Dental pain ([id number]) Dental pain ([id number]) Pain, dental (K08.89)If you received any narcotics, [...] or sign any legal documentsWith: Address: When:[place] [address] Business (1) Within 3 to 5 daysMedication Information:The exam and treatment you received today in the [facility] Emergency Department were for an urgent problem and are not intended as complete care. It is important for you to follow up with a doctor, nurse practitioner, or physician?s advertising assistant manager for ongoing care. If your symptoms become [...] number so we can reach you if necessary.[facility] Emergency Department has provided you with a complete list of medications post discharge. Please inform your service order dispatcher/provider of your visit and for further instruction [...] mouth and teeth. This keeps them healthy.? [place] your teeth 2 times a day. Use toothpaste with fluoride in it.? Floss your teeth once a day.? If your dentist prescribed an antibiotic medicine to treat an infection, take it as told. Do not stop taking the antibiotic even if your condition gets better.? Keep all follow-up visits as told by your dentist. This is important. This includes all cleanings.Preventing dental caries? [place] your teeth every morning and night. Use [...] Reviewed: 03/17/2017[employer] Patient Education ? 2017 [employer]Dental PainDental pain may be caused by [...] Reviewed: 06/27/2015[employer] Patient Education ? 2018 [employer] Viruses or BacteriaWhat?s got you sick?Antibiotics only [...] Antibiotics [place] Department of Health and Human ServicesUc Healthers for Disease Control and Prevention March 2014 [facility] Vital Signs Date Time Vital Sign Value Performing Clinician Facility 05-07-2023 13:15-0400 Body height 167.64 cm Key Patel Other [facility] 05-07-2023 13:15-0400 Body mass index (BMI) [Ratio] 37.54 kg/m2 Key Patel Other [facility] Other 05-07-2023 13:15-0400 Body temperature 97.8 [degF] Key Patel Other [facility] Other 05-07-2023 13:15-0400 Body weight 105.51 kg Key Patel Other [facility] Other 05-07-2023 13:15-0400 Respiratory rate 18 /min Key Patel Other [facility] Other 05-07-2023 13:15-0400 SaO2% (BldA) [Mass fraction] 98 % Key Patel Other [facility] Other 11-08-2022 13:50-0400 Body height 167.64 cm Chase Saldana Other [facility] Other 11-08-2022 13:50-0400 Body mass index (BMI) [Ratio] 35.51 kg/m2 Chase Saldana Other [facility] Other 11-08-2022 13:50-0400 Body weight 99.79 kg Chase Les Other [facility] Other 04-26-2022 11:55-0400 Body height 167.64 cm Autumn Restrepoault Other [facility] Other 04-26-2022 11:55-0400 Body mass index (BMI) [Ratio] 35.02 kg/m2 Autumn Donell Other [facility] Other 04-26-2022 11:55-0400 Body temperature 97.7 [degF] Autumn Donell Other [facility] Other 04-26-2022 11:55-0400 Body weight 98.43 kg Autumn Restrepoault Other [facility] Other 04-26-2022 11:55-0400 Diastolic blood pressure 82 mm[Hg] Autumn Donell Other [facility] Other 04-26-2022 11:55-0400 Respiratory rate 18 /min Autumn Donlel Other [facility] Other 04-26-2022 11:55-0400 SaO2% (BldA) [Mass fraction] 98 % Autumn Donell Other [facility] Other 04-26-2022 11:55-0400 Systolic blood pressure 122 mm[Hg] Autumn Donell Other [facility] Other 04-23-2022 10:50-0400 Body height 167.64 cm Autumn Marley Other [facility] Other 04-23-2022 10:50-0400 Body mass index (BMI) [Ratio] 33.89 kg/m2 Autumn Marley Other [facility] Other 04-23-2022 10:50-0400 Body temperature 97.8 [degF] Autumn Marley Other [facility] Other 04-23-2022 10:50-0400 Body weight 95.26 kg Autumn Marley Other [facility] Other 04-23-2022 10:50-0400 Respiratory rate 18 /min Autumn Marley Other [facility] Other 04-23-2022 10:50-0400 SaO2% (BldA) [Mass fraction] 98 % Autumn Marley Other [facility] Other 03-27-2022 10:15-0400 Body height 167.64 cm Deb Simon Other [facility] Other 03-27-2022 10:15-0400 Body mass index (BMI) [Ratio] 34.38 kg/m2 Deb Simon Other [facility] Other 03-27-2022 10:15-0400 Body temperature 97.4 [degF] Deb Simon Other [facility] Other 03-27-2022 10:15-0400 Body weight 96.62 kg Deb Simon Other [facility] Other 03-27-2022 10:15-0400 Respiratory rate 18 /min Deb Simon Other [facility] Other 03-27-2022 10:15-0400 SaO2% (BldA) [Mass fraction] 96 % Deb Simon Other [facility] Other 04-05-2021 16:10-0400 Body height 167.64 cm Lucinda Naomi Other [facility] Other 04-05-2021 16:10-0400 Body mass index (BMI) [Ratio] 33.25 kg/m2 Lucinda Naomi Other [facility] Other 04-05-2021 16:10-0400 Body temperature 97.3 [degF] Lucinda Naomi Other [facility] Other 04-05-2021 16:10-0400 Body weight 93.44 kg Lucinda Naomi Other [facility] Other 04-05-2021 16:10-0400 Diastolic blood pressure 74 mm[Hg] Lucinda Naomi Other [facility] Other 04-05-2021 16:10-0400 Respiratory rate 18 /min Lucinda Naomi Other [facility] Other 04-05-2021 16:10-0400 SaO2% (BldA) [Mass fraction] 99 % Lucinda Naomi Other [facility] Other 04-05-2021 16:10-0400 Systolic blood pressure 111 mm[Hg] Lucinda Naomi Other [facility] Other Encounters Encounter Date Encounter Type Care Provider Facility Start: 11-28-2023 ambulatory Gerald Howard acility:[facility] Start: 11-26-2023 End: 11-26-2023 ambulatory SHAIKH LEONARDO Not Available Start: 11-26-2023 End: 11-26-2023 Emergency department patient visit [facility] Start: 11-25-2023 End: 11-27-2023 Emergency department patient visit HALEIGH Rodgers [facility] Start: 11-21-2023 End: 11-21-2023 ambulatory MARY Asia WIGGINS Not Available Start: 11-16-2023 End: 11-16-2023 Emergency department patient visit [facility] Start: 10-30-2023 End: 10-30-2023 ambulatory JOHN HADDAD Not Available Start: 10-15-2023 End: 10-15-2023 [facility] Start: 10-10-2023 End: 10-10-2023 Emergency department patient visit [facility] Start: 09-21-2023 End: 09-22-2023 Emergency department patient visit MARTELL Betancourt O[facility] Start: 08-27-2023 End: 08-27-2023 Emergency department patient visit [facility] Start: 07-09-2023 End: 07-09-2023 Emergency department patient visit [facility] Start: 05-07-2023 End: 05-07-2023 ambulatory Key Patel Other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
[2023-12-06 03:09] LABS: Age Gdln ACOG Testing Note (.); HPV Aptima Positive (Negative); HPV Genotype 16 Negative (Negative); HPV Genotype 18,45 Negative (Negative); IGP, Aptima HPV, rfx 16/18,45 Note (.)
== END 2023-12-02 21:28 | disposition home or self-care (01) ==
LOC: LAB 21:27
PROVIDERS: PCP Internal Medicine; Visit Provider Physician Assistant
DX: Z01.419 Encounter for gynecological examination (general) (routine) without abnormal findings (principal)
CPT/HCPCS: 87624; G0145

== ENCOUNTER 2023-12-16 16:39 | Outpatient (OUT) | payer MEDICAID, SELFPAY ==
[2023-12-16 18:01] LABS: Anion Gap 16.1; BUN Creatinine Ratio 9.2; Calcium 9.1 mg/dL (8.5-10.1); Carbon Dioxide 25.2 mmol/L (21.0-32.0); Chloride 104 mmol/L (98-107); Estimated GFR (African America >60 (>=60); Estimated GFR (Non-African Ame >60 (>=60); Glucose 102 mg/dL (74-106); Potassium 3.3 mmol/L (3.5-5.1); Sodium 142 mmol/L (136-145)
== END 2023-12-16 16:40 | disposition home or self-care (01) ==
LOC: LAB 16:40
PROVIDERS: PCP Internal Medicine; Visit Provider Internal Medicine
DX: E87.6 Hypokalemia (principal)
CPT/HCPCS: 36415; 80048

== ENCOUNTER 2024-01-02 00:14 | Emergency (ER) | payer MEDICAID, SELFPAY ==
[2024-01-02 00:18] VITALS: BP 126/98; PULSE 115; TEMP 36.8; O2SAT 96; BMI 33.7
--- OUTSIDE RECORDS SUMMARY | 2024-01-02 00:23 | XMS_ITS | CCD ---
Author Organization [facility] CliniSywy Care Team Providers Care Fur Puller Name Role Phone StaBianca thurstonvin Unavailable Unavailable Stalter, Alistair Unavailable Unavailable FURSOLOMON [...] PALACIOS Attending Unavailable KARAN PALACIOS Admitting Unavailable KARAN PALACIOS Consulting Unavailable FAWWAD, COLÓN H Primary Care Unavailable RIVER RODGERS Consulting Unavailable SHRUTI, DR PATRICK Goodson Consulting Unavailable SHRUTI, DR PATRICK Goodson Attending Unavailable SHRUTI, DR PATRICK Goodson Admitting Unavailable FAWWAD, COLÓN H Primary Care Unavailable DR PATRICK BAHENA Consulting Unavailable SHRUTI, DR PATRICK Goodson Attending [...] Unavailable BAHENA, DR PATRICK Goodson Attending Unavailable SHRUTI, DR [...] Chase Saldana Unavailable MIREILLE Saldana Attending Provider [phone] FAWWAD, COLÓN Primary Care Unavailable Key Patel Unavailable FAWWAD, COLÓN Attending Unavailable JOHN HADDAD Attending Unavailable MARY WIGGINS Attending Unavailable FAWWAD, COLÓN Attending Unavailable MAICOL LIU Attending Unavailable MARY WIGGINS Attending Unavailable KAMLA PRYOR Attending Unavailable KAMLA PRYOR Referring Unavailable FAWWAD, COLÓN Attending Unavailable Gerald Wagner Attending Unavailab Gerald Lazo Admitting Unavailab le [facility] Primary Care Unavailable FA[facility]AD, [facility] Primary Care Unavailable MARTELL OTERO Attending Unavailable MARTELL OTERO Referring Unavailable [facility], [facility] Primary Care Unavailable OTEROMARTELL Attending Unavailable OTERO, MARTELL W Referring Unavailable [facility], [facility] Primary Care Unavailable OTEROMARTELL W Attending Unavailable OTERO, MARTELL W Referring Unavailable [facility], [facility] Primary [facility]available [facility] Primary Care Unavailable [facility] Primary Care Unavailable CHETAN HEBERT Attending Unavailable [facility], [facility] Primary Care Unavailable ALICE SHANE Attending Unavailable [facility], [facility] Primary Care Unavailable HALEIGH CHAVEZ Attending Unavailable SCOTTHALEIGH MTZ Attending Unavailable SCOTT, AHMATammy M Referring Unavailable [facility] Primary Care Unavailable [facility] Primary Care Unavailable ALICE SHANE Attending Unavailable [facility], [facility] Primary Care Unavailable YANIQUE GONZALES Attending Unavailable Allergies Allergy Classification Reported Allergen(s) Allergy Type Date of Onset Reaction(s) Facility (5 sources) ibuprofen; Translations: [ibuprofen] Drug Allergy 11-25-19 17 Nausea [facility] Repository (1 source) Latex; Translations: [Latex Allergy] Propensity to adverse reactions to drug (disorder) [facility] Repository (1 source) Sulfonamides (Antibiotic); Translations: [sulfa drugs] Propensity to adverse reactions to drug (disorder) [facility] Repository (6 sources) Lactase Drug Allergy vomiting Albire[facility] Other (8 sources) Latex; Translations: [LATEX] Drug allergy 08-24-19 19 anaphylaxis [facility] (6 sources) Sulfacetamide Drug Allergy hives [facility] Other (2 sources) Lactose Drug Allergy [facility] Repository (2 sources) Latex Drug allergy (disorder) 12-30-19 13 [facility] Repository (2 sources) Penicillin Drug Allergy [facility] (1 source) Propylthiouracil Drug Allergy [facility] Repository (2 sources) Sulfonamides (Antibiotic) Drug allergy (disorder) 12-30-19 13 [facility] Repository (3 sources) Sulfonamides (Antibiotic); Translations: [Sulfa (Sulfonamide Antibiotics)] Allergy to substance 11-25-19 [facility] (1 source) Lactase Drug Allergy 05-07-20 [facility] Repository (1 source) Latex Drug allergy (disorder) 05-07-20 [facility] Repository (1 source) Sulfacetamide Drug Allergy 05-07-20 [facility] Repository (1 source) Adhesive agent; Translations: [...] to adverse reactions to drug (disorder) 04-24-20 21 [facility] Repository (1 source) Penicillins; Translations: [PENICILLINS] Propensity to adverse reactions to drug (disorder) 12-05-19 19 [facility] Repository Medications Current Medications Medication Drug Class(es) Dates Sig (Normalized) Sig (Original) [id number] 200 actuat albuterol 0.09 mg/actuat metered dose [...] 1.5 mg/ml oral solution (2 sources) Uncompetitive H-vvbcxl-P-aspartate Receptor Antagonist, Sigma-1 Agonist [place] DM 7.5-7.5 MG/5ML 10 ml Orally every [...] (1 source) Dysuria Episodic Headache; including migraine (2 sources) Migraine with aura, not intractable, without status migrainosus; Translations: [Other migraine, not intractable, without status migrainosus] Onset: 12-11-2023 Chronic Headache; including migraine (2 sources) Headache; including migraine; Translations: [Headache, unspecified] Onset: 08-27-2023 Mood disorders (1 source) Bipolar disorder, unspecified; Translations: [BIPOLAR DISORDER UNSPECIFIED] Onset: 07-23-2021 Chronic Other aftercare (1 source) Other usp (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 therapy; 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] Onset: 03-23-2022 Episodic Other gastrointestinal disorders (4 sources) Constipation, unspecified; Translations: [CONSTIPATION UNSPECIFIED] Onset: 03-22-2022 Episodic Other injuries and conditions due to external causes (1 source) Foreign body in left ear, initial encounter; Translations: [Foreign body in left ear, initial encounter] Onset: 10-09-2023 Episodic Other injuries and conditions due to external causes (1 source) Foreign body in ear Onset: 10-09-2023 Episodic Other lower respiratory disease (5 sources) Shortness of breath; Translations: [SHORTNESS OF BREATH] Onset: 02-08-2022 Episodic Other lower respiratory disease (1 source) Dyspnea, unspecified; Translations: [Dyspnea, unspecified] Onset: 11-25-2023 Episodic Other lower respiratory disease (1 source) Cough Onset: 11-25-2023 Episodic Other nervous system disorders (3 sources) [...] OTH PART DIGESTV TRACT] Onset: 03-23-2022 Episodic Substance-related disorders (7 sources) Opioid dependence; [...] 11-16-2023 Unclassified (1 source) Ankle Injury Onset: 09-21-2023 Unclassified (1 source) Cold Like Symptoms Onset: [...] source) Pleurisy; Translations: [PLEURISY] Onset: 09-27-2021 Episodic Sprains and strains (4 sources) Sprain of unspecified ligament of left ankle, initial encounter; Translations: [Unspecified sprain of right foot, initial encounter] Onset: 10-18-2021 Episodic Unclassified (3 sources) Contact with and [...] Test Name Value Interpretation Reference Range Facility BASIC METABOLIC PANLon 12-28 Anion gap [Moles/Vol] 4 mmol/L Low 5-15 [facility] Comment on above: Performed By: #### 2 106-3 #### [facility] ([id number]) [address] [place] [address], [place] [address] Calcium [Mass/Vol] 8.4 mg/dL Low 8.5-10.5 [facility] Comment on above: Performed By: #### 2 106-3 #### [facility] ([id number]) [address] [place] [address] 07085 Chloride [Moles/Vol] 106 mmol/L Normal 98-109 [facility] Comment on above: Performed By: #### 2 106-3 #### [facility] ([id number]) [address] [place] [address] 15590 CO2 [Moles/Vol] 24 mmol/L Normal 22-32 [facility] Comment on above: Performed By: #### 2 106-3 #### [facility] ([id number]) [address] [place] [address] 77130 Creatinine [Mass/Vol] 0.65 mg/dL Normal 0.40-1.00 [facility] Comment on above: Result Comment: METH OD TRACEABLE TO IDMS STANDARD Performed By: #### 2 106-3 #### [facility] ([id number]) [address] [place] [address] [place] [address] eGFR (CKD-EPI) NON-RACE DEPENDENT >90 Normal >59 [facility] Comment on above: Result Comment: Reported eGFR is based on the CKD-EPI 1 equation that does not use a race coefficient. Performed By: #### 2 106-3 #### [facility] ([id number]) [address] [place] [address] 54331 Glucose [Mass/Vol] 101 mg/dL High 65-99 [facility] Comment on above: Performed By: #### 2 106-3 #### [facility] ([id number]) [address] [place] [address] 98324 Potassium [Moles/Vol] 3.8 mmol/L Normal 3.5-5.0 [facility] Comment on above: Performed By: #### 2 106-3 #### [facility] ([id number]) [address] [place] [address] 10527 Sodium [Moles/Vol] 134 mmol/L Normal 134-146 [facility] Comment on above: Performed By: #### 2 106-3 #### [facility] ([id number]) [address] [place] [address] 39477 Urea nitrogen [Mass/Vol] 12 mg/dL Normal 5-23 [facility] Comment on above: Performed By: #### 2 106-3 #### [facility] ([id number]) [address] [place] [address] 46744 CBC AND AUTO DIFFon 12-29-19 24 ABSOLUTE BASOPHIL 0.1 X10E9/L Normal 0.0-0.2 [facility] Comment on above: Performed By: #### 2 106-3 #### [facility] ([id number]) [address] [place] [address] 12240 ABSOLUTE NEUTROPHIL 6.1 X10E9/L Normal 1.5-6.6 [facility] Comment on above: Performed By: #### 2 106-3 #### [facility] ([id number]) [address] [place] [address] 99369 Basophils/100 WBC (Bld) 0.7 % Normal [facility] Comment on above: Performed By: #### 2 106-3 #### [facility] ([id number]) [address] [place] [address] 36218 Eosinophils (Bld) [#/Vol] 0.2 10*3/uL Normal 0.0-0.4 [facility] Comment on above: Performed By: #### 2 106-3 #### [facility] ([id number]) [address] [place] [address] 44855 Eosinophils/100 WBC (Bld) 1.9 % Normal [facility] Comment on above: Performed By: #### 2 106-3 #### [facility] ([id number]) [address] [place] [address] 21706 Erythrocyte distribution width (RBC) [Ratio] 13.6 % Normal 11.5-15.0 [facility] Comment on above: Performed By: #### 2 106-3 #### [facility] ([id number]) [address] [place] [address] 11859 Hematocrit (Bld) [Volume fraction] 33.7 % Low 35-47 [facility] Comment on above: Performed By: #### 2 106-3 #### [facility] ([id number]) [address] [place] [address] 71710 Hemoglobin (Bld) [Mass/Vol] 11.7 g/dL Normal 11.7-15.5 [facility] Comment on above: Performed By: #### 2 106-3 #### [facility] ([id number]) [address] [place] [address] 57745 Lymphocytes (Bld) [#/Vol] 3.0 10*3/uL Normal 1.0-3.5 [facility] Comment on above: Performed By: #### 2 106-3 #### [facility] ([id number]) [address] [place] [address] 83445 Lymphocytes/100 WBC (Bld) 29.8 % Normal [facility] Comment on above: Performed By: #### 2 106-3 #### [facility] ([id number]) [address] [place] [address] 28866 MCH (RBC) [Entitic mass] 29.2 pg Normal 27-34 [facility] Comment on above: Performed By: #### 2 106-3 #### [facility] ([id number]) [address] [place] [address] [place] [address] MCHC (RBC) [Mass/Vol] 34.6 g/dL Normal 32-36 [facility] Comment on above: Performed By: #### 2 106-3 #### [facility] ([id number]) [address] [place] [address] 23197 MCV (RBC) [Entitic vol] 84 fL Normal 80-100 [facility] Comment on above: Performed By: #### 2 106-3 #### [facility] ([id number]) [address] [place] [address] 41873 Monocytes (Bld) [#/Vol] 0.6 10*3/uL Normal 0-0.9 [facility] Comment on above: Performed By: #### 2 106-3 #### [facility] ([id number]) [address] [place] [address] 34043 Monocytes/100 WBC (Bld) 6.5 % Normal [facility] Comment on above: Performed By: #### 2 106-3 #### [facility] ([id number]) [address] [place] [address] 60235 Neutrophils/100 WBC (Bld) 61.1 % Normal [facility] Comment on above: Performed By: #### 2 106-3 #### [facility] ([id number]) [address] [place] [address] 34900 Platelet mean volume (Bld) [Entitic vol] 6.8 fL Low 7-12 [facility] Comment on above: Performed By: #### 2 106-3 #### [facility] ([id number]) [address] [place] [address] 21724 Platelets (Bld) [#/Vol] 307 10*3/uL Normal 150-450 [facility] Comment on above: Performed By: #### 2 106-3 #### [facility] ([id number]) [address] [place] [address] 89015 RBC COUNT 4.00 X10E12/L Normal 3.80-5.20 [facility] Comment on above: Performed By: #### 2 106-3 #### [facility] ([id number]) [address] [place] [address] 65347 WBC (Bld) [#/Vol] 10.0 10*3/uL Normal 4.0-11.0 [facility] Comment on above: Performed By: #### 2 106-3 #### [facility] ([id number]) [address] [place] [address] 37456 MAGNESIUMon 12-29-2023 Magnesium [Mass/Vol] 2.0 mg/dL Normal 1.8-2.6 [facility] Comment on above: Performed By: #### 2 106-3 #### [facility] ([id number]) [address] [place] [address] 03225 HCG ( test) Ql (U)o n 12-11-2023 Beta HCG ( test) Ql (U) Negative Normal NEG [facility] Comment on above: Performed By: #### 2 106-3 #### [facility] ([id number]) [address] [place] [address] 28130 URN MACROSCOPIC NURon 2023 BILIRUBIN BETHANY Negative Normal NEG [facility] Comment on above: Performed By: #### N UM #### [facility] ([id number]) [address] [place] [address] 82747 BLOOD/HGB BETHANY Negative Normal NEG [facility] Comment on above: Performed By: #### N UM #### [facility] ([id number]) [address] [place] [address] 33444 GLUCOSE BETHANY Negative Normal NEG [facility] Comment on above: Performed By: #### N UM #### [facility] ([id number]) [address] [place] [address] 08799 KETONES BETHANY Negative Normal NEG [facility] Comment on above: Performed By: #### N UM #### [facility] ([id number]) [address] [place] [address] 71810 LEUKOCYTE ESTERASE BETHANY Negative Normal NEG [facility] Comment on above: Performed By: #### N UM #### [facility] ([id number]) [address] [place] [address] 04885 NITRITE BETHANY Negative Normal NEG [facility] Comment on above: Performed By: #### N UM #### [facility] ([id number]) [address] [place] [address] 18773 PH BETHANY 6.0 Normal 5.0-8.5 [facility] Comment on above: Performed By: #### N UM #### [facility] ([id number]) [address] [place] [address] 80390 PROTEIN BETHANY Negative Normal NEG [facility] Comment on above: Performed By: #### N UM #### [facility] ([id number]) [address] [place] [address] 75882 SPECIFIC GRAVITY BETHANY 1.015 Normal 1.003-[address] [place] [address] Comment on above: Performed By: #### N UM #### [facility] ([id number]) [address] [place] [address] 92647 UROBILINOGEN BETHANY 0.2 eu/dL Normal <1.1 [facility] Comment on above: Performed By: #### N UM #### [facility] ([id number]) [address] [place] [address] 27870 BASIC METABOLIC PANLon 11-24 Anion gap [Moles/Vol] 13 mmol/L Normal 5-15 [facility] Comment on above: Performed By: #### B MP #### [facility] ([id number]) [address] [place] [address] 06111 Calcium [Mass/Vol] 9.0 mg/dL Normal 8.5-10.5 [facility] Comment on above: Performed By: #### B MP #### [facility] ([id number]) [address] [place] [address] 57949 Chloride [Moles/Vol] 103 mmol/L Normal 98-109 [facility] Comment on above: Performed By: #### B MP #### [facility] ([id number]) [address] [place] [address] 08618 CO2 [Moles/Vol] 20 mmol/L Low 22-32 [facility] Comment on above: Performed By: #### B MP #### [facility] ([id number]) [address] [place] [address] 09022 Creatinine [Mass/Vol] 0.69 mg/dL Normal 0.40-1.00 [facility] Comment on above: Result Comment: METH OD TRACEABLE TO IDMS STANDARD Performed By: #### B MP #### [facility] ([id number]) [address] [place] [address] 47300 eGFR (CKD-EPI) NON-RACE DEPENDENT >90 Normal >59 [facility] Comment on above: Result Comment: Reported eGFR is based on the CKD-EPI 2020 equation that does not use a race coefficient. Performed By: #### B MP #### [facility] ([id number]) [address] [place] [address] 93994 Glucose [Mass/Vol] 95 mg/dL Normal 65-99 [facility] Comment on above: Performed By: #### B MP #### [facility] ([id number]) [address] [place] [address] 87585 Potassium [Moles/Vol] 2.9 mmol/L Low 3.5-5.0 [facility] Comment on above: Performed By: #### B MP #### [facility] ([id number]) [address] [facility], [place] [address] Sodium [Moles/Vol] 136 mmol/L Normal 134-146 [facility] Comment on above: Performed By: #### B MP #### [facility] ([id number]) [address] [facility], [place] [address] Urea nitrogen [Mass/Vol] 7 mg/dL Normal 5-23 [facility] Comment on above: Performed By: #### B MP #### [facility] ([id number]) [address] [place] [address] SARS/FLU A+B/RSV by NAAT/Mol ecularon 11-25-2023 SARS/FLU A+B/RSV by NAAT/Molecular FLU A PCR [...] operators who are performing tests using either [employer] DX or [employer] systems and is limited to laboratories that [...] repeat. Fact Sheet for Healthcare Providers: https://www.fda.gov/media /663307/download Fact Sheet for Patients: https://www.fda.gov/media /836765/download Normal [facility] Comment on above: Performed By: #### C OVFLR #### [facility] ([id number]) [address] [place] [address], [place] [address] XR FOOT LT MIN 3 VWSon 09-21 [...] Ghada Loya MD on 09/22/2023 12:07 AM [facility] XR SPINE LUMBAR 2 OR 3 VWSon [...] Loya MD on 09/22/2023 12:10 AM Normal [facility] XR TIBIA FIBULA LT MIN [...] Ghada Loya MD on 09/22/2023 12:09 AM Normal [facility] HCG ( test) Ql (U)o n 09-21-2023 Beta HCG ( test) Ql (U) Negative Normal NEG [facility] Comment on above: Performed By: #### 2 106-3 #### [facility] ([id number]) [address] [place] [address], [place] [address] SARS/FLU A+B/RSV by NAAT/Mol ecularon 07-09-2023 SARS/FLU [...] operators who are performing tests using either [employer] DX or [employer] systems and is limited to laboratories that [...] repeat. Fact Sheet for Healthcare Providers: https://www.fda.gov/media /441556/download Fact Sheet for Patients: https://www.fda.gov/media /901693/download Normal [facility] Comment on above: Performed By: #### C OVFLR #### [facility] ([id number]) [address] [place] [address] Provider Letteron 02-25-2023 Provider Letter (Inserted Image. Swapna ble to display) February 25, 2023 JENNIFER CARMEN [address] [place] [id number] : 1995 Dear Jennifer , We have been trying to reach you with no success. It is important that you return our call regarding your referral to our office by Jennifer upon receiving this letter. Also, at the time of your call, please provide us with your current information. Thank you for your prompt attention to this matter. Sincerely, [facility] [phone] Normal [facility] Physician Referralon 023 Physician Referral [phone] [id number] Normal [facility] Urinalysis - AUTOMATEDon Appearance (U) cloudy [employer] Other Bilirubin Ql (U) Negative [employer] Other Color (U) yellow [employer] Other Glucose Ql (U) Negative [employer] Other Hemoglobin Ql (U) Trace-intact [employer] Other Ketones Ql (U) Negative [employer] Other Leukocyte esterase Test strip Ql (U) Trace [employer] Other Nitrite Ql (U) Negative [employer] Other pH (U) 6.0 [pH] [employer] Other Protein Ql (U) Negative [employer] Other Specific gravity (U) [Rel density] <=1.005 [facility] [employer] Other Urobilinogen (U) [Mass/Vol] 0.2 mg/dL [employer] Other Urinalysis - AUTOMATED No rt [employer] Other Quick Strepon 04-26-2022 S. pyogenes Org specific cx Ql (Throat) Negative [employer] Other Quick Strep [employer] Other SARS-CoV-2 (COVID-19) RNA NA A+probe Ql (Resp)on 04-23-2022 SARS-CoV-2 (COVID-19) RNA EMMANUELLE+probe Ql (Unsp spec) Negative [employer] Other Covid-19 PCR (CVDTBH)on 03-16 SARS-CoV-2 (COVID-19) RNA EMMANUELLE+probe Ql (Unsp spec) Not detected Normal NOT DETECTED [facility] Comment on above: Result Comment: This test is not yet approved or cleared by the [place] FDA. When there are no FDA-approved or cleared tests available, and other criteria are met, FDA can make tests available under an emergency access mechanism called an Emergency Use Authorization (EUA). The EUA for this test is supported by the [employer] of Health and Human Service's (HHS's) declaration [...] SARS-CoV-2. Performed By: #### C BC #### [facility] [address] [place] [address] Dr. Katrin Ceja SARS-CoV-2 (COVID-19) RNA NA A+probe Ql (Resp)on 03-27-2022 SARS-CoV-2 (COVID-19) RNA EMMANUELLE+probe Ql (Unsp spec) Negative [employer] Other CBC AUTO DIFFon 03-22-2022 BASO # 0.0 103/ul Normal 0.0-0.1 [facility] Comment on above: Performed By: #### L IPID, CMP #### [facility] [address] [place] [address] Dr. Katrin Ceja Basophils/100 WBC (Bld) 0.3 % Normal 0.2-2.0 [facility] Comment on above: Performed By: #### L IPID, CMP #### [facility] [address] [place] [address] Dr. Katrin Ceja EO # 0.2 103/ul Normal 0.0-0.7 [facility] Comment on above: Performed By: #### L IPID, CMP #### [facility] [address] [place] [address] Dr. Katrin Ceja Eosinophils/100 WBC (Bld) 2.2 % Normal 0.9-7.0 [facility] Comment on above: Performed By: #### L IPID, CMP #### [facility] [address] [place] [address] Dr. Katrin Ceja Erythrocyte distribution width (RBC) [Ratio] 11.9 % Normal 11.0-15.0 [facility] Comment on above: Performed By: #### L IPID, CMP #### [facility] [address] [place] [address] Dr. Katrin Ceja Hematocrit (Bld) [Volume fraction] 36.4 % Normal 36.0-48.0 [facility] Comment on above: Performed By: #### L IPID, CMP #### [facility] [address] [place] [address] Dr. Katrin Ceja Hemoglobin (Bld) [Mass/Vol] 12.6 g/dL Normal 12.0-16.0 [facility] Comment on above: Performed By: #### L IPID, CMP #### [facility] [address] [place] [address] Dr. Katrin Ceja IG # 0.03 10e3/ul Normal 0.00-0.03 [facility] Comment on above: Performed By: #### L IPID, CMP #### [facility] [address] [place] [address] Dr. Katrin Ceja IG % 0.3 % Normal 0.0-0.5 [facility] Comment on above: Performed By: #### L IPID, CMP #### [facility] [address] [place] [address] Dr. Katrin Ceja LYMPH # 3.5 103/ul Normal 1.2-3.8 [facility] Comment on above: Performed By: #### L IPID, CMP #### [facility] [address] [place] [address] Dr. Katrin Ceja Lymphocytes/100 WBC (Bld) 33.1 % Normal 20.5-60.0 [facility] Comment on above: Performed By: #### L IPID, CMP #### [facility] [address] [place] [address] Dr. Katrin Ceja MANUAL DIFF REQ NO Normal [facility] Comment on above: Performed By: #### L IPID, CMP #### [facility] [address] [place] [address] Dr. Katrin Ceja MCH (RBC) [Entitic mass] 29.9 pg Normal 26.7-34.0 [facility] Comment on above: Performed By: #### L IPID, CMP #### [facility] [address] [place] [address] Dr. Katrin Ceja MCHC (RBC) [Mass/Vol] 34.6 g/dL Normal 29.9-35.2 [facility] Comment on above: Performed By: #### L IPID, CMP #### [facility] [address] [place] [address] Dr. Katrin Ceja MCV (RBC) [Entitic vol] 86.5 fL Normal 81.0-99.0 [facility] Comment on above: Performed By: #### L IPID, CMP #### [facility] [address] [place] [address] Dr. Katrin Ceja MONO # 0.7 103/ul Normal 0.3-0.8 [facility] Comment on above: Performed By: #### L IPID, CMP #### [facility] [address] [place] [address] Dr. Katrin Ceja Monocytes/100 WBC (Bld) 6.5 % Normal 1.7-12.0 [facility] Comment on above: Performed By: #### L IPID, CMP #### [facility] [address] [place] [address] Dr. Katrin Ceja NEUT # 6.0 103/ul Normal 1.4-6.5 [facility] Comment on above: Performed By: #### L IPID, CMP #### [facility] [address] [place] [address] Dr. Katrin Ceja Neutrophils/100 WBC (Bld) 57.6 % Normal 43.0-75.0 [facility] Comment on above: Performed By: #### L IPID, CMP #### [facility] [address] [place] [address] Dr. Katrin Ceja Platelet mean volume (Bld) [Entitic vol] 8.7 fL Critically low 9.5-13.5 [facility] Comment on above: Performed By: #### L IPID, CMP #### [facility] [address] [address] [address] Katrin Ceja PLT 282 103/ul Normal 150-450 [facility] Comment on above: Performed By: #### L IPID, CMP #### [facility] [address] [place] [address] Dr. Katrin Ceja RBC 4.21 106/ul Normal 4.20-5.40 [facility] Comment on above: Performed By: #### L IPID, CMP #### [facility] [address] [place] [address] Dr. Katrin Ceja WBC 10.5 103/ul Normal 4.0-11.0 [facility] Comment on above: Performed By: #### L IPID, CMP #### [facility] [address] [place] [address] Dr. Katrin Ceja ER URINE PROFILEon 2 Bilirubin Ql (U) Negative Normal NEGATIVE [facility] Comment on above: Performed By: #### L IPID, CMP #### [facility] [address] [place] [address] Dr. Katrin Ceja Clarity (U) CLEAR Normal CLEAR [facility] Comment on above: Performed By: #### L IPID, CMP #### [facility] [address] [place] [address] Dr. Katrin Ceja Color (U) LT. YELLOW Normal YELLOW [facility] Comment on above: Performed By: #### L IPID, CMP #### [facility] [address] [place] [address] Dr. Katrin Ceja ERUAHD A micrscopic examina tion will be performed if indicated. Normal [facility] Comment on above: Performed By: #### L IPID, CMP #### [facility] [address] [place] [address] Dr. Katrin Ceja Glucose Ql (U) Negative Normal NEGATIVE [facility] [place] [facility] Comment on above: Performed By: #### L IPID, CMP #### [facility] [address] [address] [address] Katrin Ceja Hemoglobin Ql (U) Negative Normal NEGATIVE [facility] Comment on above: Performed By: #### L IPID, CMP #### [facility] [address] [address] [address] Katrin Ceja Ketones Ql (U) Negative Normal NEGATIVE [facility] [place] [facility] Comment on above: Performed By: #### L IPID, CMP #### [facility] [address] [address] [address] Katrin Ceja LEUKOCYTES Negative Normal NEGATIVE [facility] Comment on above: Performed By: #### L IPID, CMP #### [facility] [address] [place] [address] Dr. Katrin Ceja Nitrite Ql (U) Negative Normal NEGATIVE [facility] [place] [facility] Comment on above: Performed By: #### L IPID, CMP #### [facility] [address] [place] [address] Dr. Katrin Ceja pH (U) 6.0 [pH] Normal 5-9 [facility] Comment on above: Performed By: #### L IPID, CMP #### [facility] [address] [place] [address] Dr. Katrin Ceja SPEC GRAVITY 1.015 Normal 1.005-<=1. 025 [facility] Comment on above: Performed By: #### L IPID, CMP #### [facility] [address] [place] [address] Dr. Katrin Ceja UA PROTEIN Negative Normal NEGATIVE/ TRACE [facility] Comment on above: Performed By: #### L IPID, CMP #### [facility] [address] [place] [address] Dr. Katrin Ceja UR MICRO IND NOT INDICATED Normal [facility] Comment on above: Performed By: #### L IPID, CMP #### [facility] [address] [place] [address] Dr. Katrin Ceja Urobilinogen Qn (U) 0.2 {Jeannie'U}/dL Normal 0.2 - 1. 0 [facility] Comment on above: Performed By: #### L IPID, CMP #### [facility] [address] [place] [address] Dr. Katrin Ceja LIPASEon 03-22-2022 Lipase [Catalytic activity/Vol] 84.0 U/L Normal 73.0-393.0 [facility] Comment on above: Performed By: #### H STROPN, CMP, LIPA #### [facility] [address] [address] [address] Katrin Ceja URon 03-22-2022 , QUAL Negative Normal NEGATIVE [facility] Comment on above: Performed By: #### L IPID, CMP #### [facility] [address] [place] [address] Dr. Katrin Ceja PROF 14(COMP METB)on 022 Albumin [Mass/Vol] 3.2 g/dL Critically low 3.4-5.0 [facility] Comment on above: Performed By: #### H STROPN, CMP, LIPA #### [facility] [address] [place] [address] Dr. Katrin Ceja Albumin/Globulin [Mass ratio] 0.8 {ratio} Normal [facility] Comment on above: Performed By: #### H STROPN, CMP, LIPA #### [facility] [address] [address] [address] Katrin Ceja ALP [Catalytic activity/Vol] 189 U/L Critically high 46-116 [facility] Comment on above: Performed By: #### H STROPN, CMP, LIPA #### [facility] [address] [address] [address] Katrin Ceja ALT [Catalytic activity/Vol] 31 U/L Normal 14-59 [facility] Comment on above: Performed By: #### H STROPN, CMP, LIPA #### [facility] [address] [place] [address] Dr. Katrin Ceja Anion gap [Moles/Vol] 9.9 mmol/L Normal [facility] Comment on above: Performed By: #### H STROPN, CMP, LIPA #### [facility] [address] [address] [address] Katrin Ceja AST [Catalytic activity/Vol] 17 U/L Normal 15-37 [facility] Comment on above: Performed By: #### H STROPN, CMP, LIPA #### [facility] [address] [address] [address] Katrin Ceja Bilirubin [Mass/Vol] 0.2 mg/dL Normal 0.2-1.0 [facility] Comment on above: Performed By: #### H STROPN, CMP, LIPA #### [facility] [address] [address] [address] Katrin Ceja Calcium [Mass/Vol] 8.7 mg/dL Normal 8.5-10.1 [facility] Comment on above: Performed By: #### H STROPN, CMP, LIPA #### [facility] [address] [address] [address] Katrin Ceja Chloride [Moles/Vol] 103 mmol/L Normal 98-107 [facility] Comment on above: Performed By: #### H STROPN, CMP, LIPA #### [facility] [address] [address] [address] Katrin Ceja CO2 [Moles/Vol] 25.4 mmol/L Normal 21.0-32.0 [facility] Comment on above: Performed By: #### H STROPN, CMP, LIPA #### [facility] [address] [place] [address] Dr. Katrin Ceja Creatinine [Mass/Vol] 0.71 mg/dL Normal 0.55-1.02 [facility] Comment on above: Performed By: #### H STROPN, CMP, LIPA #### [facility] [address] [address] [address] Katrin Ceja EGFR-AF TRISTANIAN >60 Normal >=60 [facility] Comment on above: Performed By: #### H STROPN, CMP, LIPA #### [facility] [address] [address] [address] Katrin Ceja EGFR-NON AF TRISTANIAN >60 Normal >=60 [facility] Comment on above: Performed By: #### H STROPN, CMP, LIPA #### [facility] [address] [address] [address] Katrin Ceja Globulin (S) [Mass/Vol] 4.0 g/dL Normal [facility] Comment on above: Performed By: #### H STROPN, CMP, LIPA #### [facility] [address] [address] [address] Katrin Ceja Glucose [Mass/Vol] 106 mg/dL Normal 74-106 [facility] Comment on above: Performed By: #### H STROPN, CMP, LIPA #### [facility] [address] [address] [address] Katrin Ceja Potassium [Moles/Vol] 3.3 mmol/L Critically low 3.5-5.1 [facility] Comment on above: Performed By: #### H STROPN, CMP, LIPA #### [facility] [address] [address] [address] Katrin Ceja Protein [Mass/Vol] 7.2 g/dL Normal 6.4-8.2 [facility] Comment on above: Performed By: #### H STROPN, CMP, LIPA #### [facility] [address] [address] [address] Katrin Ceja Sodium [Moles/Vol] 135 mmol/L Critically low 136-145 [facility] Comment on above: Performed By: #### H STROPN, CMP, LIPA #### [facility] [address] [address] [address] Katrin Ceja Urea nitrogen [Mass/Vol] 5.0 mg/dL Critically low 7.0-18.0 [facility] Comment on above: Performed By: #### H STROPN, CMP, LIPA #### [facility] [address] [address] [address] Katrin Ceja Urea nitrogen/Creatinine [Mass ratio] 7.0 mg/mg Normal [facility] Comment on above: Performed By: #### H STROPN, CMP, LIPA #### [facility] [address] [address] [address] Katrin Ceja TROPONIN, HIGH SENSITIVITYon 03-22-2022 HSTROP <4.0 Normal 4.0-51.3 [facility] Comment on above: Result Comment: CUT- OFF POINTS HAVE BEEN ESTABLISHED BASED ON THE FOURTH UNIVERSAL DEFINITIONS OF MYOCARDIAL INFARCTION. THE UPPER REFERENCE LIMIT (URL) OF TROPONIN, DEFINED THE 99TH PERCENTILE OF cTnI DISTRIBUTION IN A REFERENCE POPULATION, HAS BEEN CONFIRMED THE DECISION THRESHOLD FOR W[place] DIAGNOSIS. Performed By: #### H STROPN, CMP, LIPA #### [facility] [address] [address] [address] Katrin Ceja XR ABD FLAT UP_PA [...] GERI LASSITER Date: 2022-03-22 01:53 Normal [facility] XR ANKLE LT MIN 3 Von 2021 XR ANKLE LT MIN 3 V EXAM: XR ANKLE LT WV N 3 V HISTORY: Ankle pain COMPARISON: None. TECHNIQUE: 3 views FINDINGS: No osseous lesion, fracture, dislocation or subluxation. Joint spaces are normal. Old posttraumatic ossifications adjacent to the tip of the lateral malleolus. No visualized effusion. No visualized soft tissue edema. IMPRESSION: Normal x-rays Electronically authenticated by: DANNI QUINONES Date: 2022-03-09 19:32 Normal [facility] CBC AUTO DIFFon 02-08-2022 BASO # 0.0 103/ul Normal 0.0-0.1 [facility] Comment on above: Performed By: #### C BC #### [facility] [address] [address] [address] Katrin Ceja Basophils/100 WBC (Bld) 0.3 % Normal 0.2-2.0 [facility] Comment on above: Performed By: #### C BC #### [facility] [address] [address] [address] Katrin Ceja EO # 0.3 103/ul Normal 0.0-0.7 [facility] Comment on above: Performed By: #### C BC #### [facility] [address] [place] [address] Dr. Katrin Ceja Eosinophils/100 WBC (Bld) 3.0 % Normal 0.9-7.0 [facility] Comment on above: Performed By: #### C BC #### [facility] [address] [place] [address] Dr. Katrin Ceja Erythrocyte distribution width (RBC) [Ratio] 12.2 % Normal 11.0-15.0 [facility] Comment on above: Performed By: #### C BC #### [facility] [address] [place] [address] Dr. Katrin Ceja Hematocrit (Bld) [Volume fraction] 33.8 % Critically low 36.0-48.0 [facility] Comment on above: Performed By: #### C BC #### [facility] [address] [place] [address] Dr. Katrin Ceja Hemoglobin (Bld) [Mass/Vol] 11.9 g/dL Critically low 12.0-16.0 [facility] Comment on above: Performed By: #### C BC #### [facility] [address] [place] [address] Dr. Katrin Ceja IG # 0.04 10e3/ul Critically high 0.00-0.03 [facility] Comment on above: Performed By: #### C BC #### [facility] [address] [place] [address] Dr. Katrin Ceja IG % 0.4 % Normal 0.0-0.5 [facility] Comment on above: Performed By: #### C BC #### [facility] [address] [place] [address] Dr. Katrin Ceja LYMPH # 3.0 103/ul Normal 1.2-3.8 [facility] Comment on above: Performed By: #### C BC #### [facility] [address] [place] [address] Dr. Katrin Ceja Lymphocytes/100 WBC (Bld) 28.4 % Normal 20.5-60.0 [facility] Comment on above: Performed By: #### C BC #### [facility] [address] [place] [address] Dr. Katrin Ceja MANUAL DIFF REQ NO Normal [facility] Comment on above: Performed By: #### C BC #### [facility] [address] [place] [address] Dr. Katrin Ceja MCH (RBC) [Entitic mass] 29.8 pg Normal 26.7-34.0 [facility] Comment on above: Performed By: #### C BC #### [facility] [address] [place] [address] Dr. Katrin Ceja MCHC (RBC) [Mass/Vol] 35.2 g/dL Normal 29.9-35.2 [facility] Comment on above: Performed By: #### C BC #### [facility] [address] [place] [address] Dr. Katrin Ceja MCV (RBC) [Entitic vol] 84.7 fL Normal 81.0-99.0 [facility] Comment on above: Performed By: #### C BC #### [facility] [address] [place] [address] Dr. Katrin Ceja MONO # 0.7 103/ul Normal 0.3-0.8 [facility] Comment on above: Performed By: #### C BC #### [facility] [address] [place] [address] Dr. Katrin Ceja Monocytes/100 WBC (Bld) 6.6 % Normal 1.7-12.0 [facility] Comment on above: Performed By: #### C BC #### [facility] [address] [place] [address] Dr. Katrin Ceja NEUT # 6.4 103/ul Normal 1.4-6.5 [facility] Comment on above: Performed By: #### C BC #### [facility] [address] [place] [address] Dr. Katrin Ceja Neutrophils/100 WBC (Bld) 61.3 % Normal 43.0-75.0 [facility] Comment on above: Performed By: #### C BC #### [facility] [address] [place] [address] Dr. Katrin Ceja Platelet mean volume (Bld) [Entitic vol] 8.9 fL Critically low 9.5-13.5 [facility] Comment on above: Performed By: #### C BC #### [facility] [address] [place] [address] Dr. Katrin Ceja PLT 299 103/ul Normal 150-450 [facility] Comment on above: Performed By: #### C BC #### [facility] [address] [place] [address] Dr. Katrin Ceja RBC 3.99 106/ul Critically low 4.20-5.40 [facility] Comment on above: Performed By: #### C BC #### [facility] [address] [place] [address] Dr. Katrin Ceja WBC 10.4 103/ul Normal 4.0-11.0 [facility] Comment on above: Performed By: #### C BC #### [facility] [address] [place] [address] Dr. Katrin Ceja D-DIMERon 02-08-2022 D-DIMER 0.59 mg/L FEU Normal <=0.59 [facility] Comment on above: Performed By: #### L IPID, CMP #### [facility] [address] [place] [address] Dr. Katrin Ceja D-DIMER COMMENTS SEE BELOW Normal [facility] Comment on above: Result Comment: Incr eases [...] Performed By: #### L IPID, CMP #### [facility] [address] [place] [address] Dr. Katrin Ceja PROF CHEM 8 (BAS METB)on Anion gap [Moles/Vol] 12.8 mmol/L Normal [facility] Comment on above: Performed By: #### C BC #### [facility] [address] [place] [address] Dr. Katrin Ceja Calcium [Mass/Vol] 8.7 mg/dL Normal 8.5-10.1 [facility] Comment on above: Performed By: #### C BC #### [facility] [address] [place] [address] Dr. Katrin Ceja Chloride [Moles/Vol] 102 mmol/L Normal 98-107 [facility] Comment on above: Performed By: #### C BC #### [facility] [address] [place] [address] Dr. Katrin Ceja CO2 [Moles/Vol] 25.9 mmol/L Normal 21.0-32.0 [facility] Comment on above: Performed By: #### C BC #### [facility] [address] [place] [address] Dr. Katrin Ceja Creatinine [Mass/Vol] 0.70 mg/dL Normal 0.55-1.02 [facility] Comment on above: Performed By: #### C BC #### [facility] [address] [place] [address] Dr. Katrin Ceja EGFR-AF TRISTANIAN >60 Normal >=60 [facility] Comment on above: Performed By: #### C BC #### [facility] [address] [address] [address] Katrin Ceja EGFR-NON AF TRISTANIAN >60 Normal >=60 [facility] Comment on above: Performed By: #### C BC #### [facility] [address] [place], [place] [address] Dr. Katrin Ceja Glucose [Mass/Vol] 95 mg/dL Normal 74-106 [facility] Comment on above: Performed By: #### C BC #### [facility] [address] [address] [address] Katrin Ceja Potassium [Moles/Vol] 2.7 mmol/L Critically low 3.5-5.1 [facility] Comment on above: Result Comment: Test Repeated. Critical Value Verified Performed By: #### C BC #### [facility] [address] [place] [address] Dr. Katrin Ceja Sodium [Moles/Vol] 136 mmol/L Normal 136-145 [facility] Comment on above: Performed By: #### C BC #### [facility] [address] [address] [address] Katrin Ceja Urea nitrogen [Mass/Vol] 3.0 mg/dL Critically low 7.0-18.0 [facility] Comment on above: Performed By: #### C BC #### [facility] [address] [place] [address] Dr. Katrin Ceja Urea nitrogen/Creatinine [Mass ratio] 4.3 mg/mg Normal [facility] Comment on above: Performed By: #### C BC #### [facility] [address] [address] [address] Katrin Ceja XR CHEST 2 Von [...] by: RIVER SAID Date: 2022-02-08 04:19 Normal [facility] LIPID PROFILEon 12-18-2021 CHOL-HDL RATIO NORM SEE BELOW Normal [facility] Comment on above: Result Comment: 3.3 - 4.4 LOW RISK 4.4 - 7.1 AVERAGE RISK 7.1 - 11.0 MODERATE RISK >11.0 HIGH RISK Performed By: #### L IPID, LIVER #### [facility] [address] [place], [place] [address] Dr. Katrin Ceja Cholesterol [Mass/Vol] 126 mg/dL Normal <=200 [facility] Comment on above: Performed By: #### L IPID, LIVER #### [facility] [address] [place], [place] [address] Dr. Katrin Ceja Cholesterol in HDL [Mass/Vol] 31 mg/dL Critically low 40-60 [facility] Comment on above: Performed By: #### L IPID, LIVER #### [facility] [address] [place], [place] [address] Dr. Katrin Ceja Cholesterol in LDL [Mass/Vol] 59.2 mg/dL Normal [facility] Comment on above: Performed By: #### L IPID, LIVER #### [facility] [address] [place], [place] [address] Dr. Katrin Ceja Cholesterol.total/Chol esterol in HDL [Mass ratio] 4.1 {ratio} Normal [facility] Comment on above: Performed By: #### L IPID, LIVER #### [facility] [address] [place], [place] [address] Dr. Katrin Ceja HDL NORMAL > or = 60 mg/dl - LO W CARDIOVASCULAR RISK <40 mg/dl - HIGH CARDIOVASCULAR RISK Normal [facility] Comment on above: Performed By: #### L IPID, LIVER #### [facility] [address] [place], [place] [address] Dr. Katrin Ceja LDL CALC NORMAL SEE BELOW Normal [facility] Comment on above: Result Comment: <100 mg/dl OPTIMAL 100 - 129 mg/dl NEAR OR ABOVE OPTIMAL 130 - 159 mg/dl BORDERLINE HIGH 160 - 189 mg/dl HIGH >190 mg/dl VERY HIGH Performed By: #### L IPID, LIVER #### [facility] [address] [place] [address] Dr. Katrin Ceja Triglyceride [Mass/Vol] 179 mg/dL Critically high <=150 [facility] Comment on above: Performed By: #### L IPID, LIVER #### [facility] [address] [place] [address] Dr. Katrin Ceja VLDL CALC 35.8 mg/dL Normal [facility] Comment on above: Performed By: #### L IPID, LIVER #### [facility] [address] [place] [address] Dr. Katrin Ceja LIVER PROFILEon 12-18-2021 Albumin [Mass/Vol] 3.6 g/dL Normal 3.4-5.0 [facility] Comment on above: Performed By: #### L IPID, LIVER #### [facility] [address] [place] [address] Dr. Katrin Ceja Albumin/Globulin [Mass ratio] 0.8 {ratio} Normal [facility] Comment on above: Performed By: #### L IPID, LIVER #### [facility] [address] [place] [address] Dr. Katrin Ceja ALP [Catalytic activity/Vol] 196 U/L Critically high 46-116 [facility] Comment on above: Performed By: #### L IPID, LIVER #### [facility] [address] [place] [address] Dr. Katrin Ceja ALT [Catalytic activity/Vol] 51 U/L Normal 14-59 [facility] Comment on above: Performed By: #### L IPID, LIVER #### [facility] [address] [place] [address] Dr. Katrin Ceja AST [Catalytic activity/Vol] 22 U/L Normal 15-37 [facility] Comment on above: Performed By: #### L IPID, LIVER #### [facility] [address] [place] [address] Dr. Katrin Ceja BILI, CONJUGATED 0.1 mg/dL Normal 0.0-0.2 [facility] Comment on above: Performed By: #### L IPID, LIVER #### [facility] [address] [place] [address] Dr. Katrin Ceja Bilirubin [Mass/Vol] 0.4 mg/dL Normal 0.2-1.0 [facility] Comment on above: Performed By: #### L IPID, LIVER #### [facility] [address] [place] [address] Dr. Katrin Ceja Globulin (S) [Mass/Vol] 4.4 g/dL Normal [facility] Comment on above: Performed By: #### L IPID, LIVER #### [facility] [address] [place] [address] Dr. Katrin Ceja Protein [Mass/Vol] 8.0 g/dL Normal 6.4-8.2 [facility] Comment on above: Performed By: #### L IPID, LIVER #### [facility] [address] [place] [address] Dr. Katrin Ceja XR FOOT RT MIN [...] RIVER SAID Date: 2021-12-07 00:19 Normal [facility] PROF 14(COMP METB)on 022 Albumin [Mass/Vol] 3.6 g/dL Normal 3.4-5.0 [facility] Comment on above: Performed By: #### L IPID, CMP #### [facility] [address] [place] [address] Dr. Katrin Ceja Albumin/Globulin [Mass ratio] 0.8 {ratio} Normal [facility] Comment on above: Performed By: #### L IPID, CMP #### [facility] [address] [place] [address] [address] Katrin Ceja ALP [Catalytic activity/Vol] 209 U/L Critically high 46-116 [facility] Comment on above: Performed By: #### L IPID, CMP #### [facility] [address] [place] [address] [address] Katrin Ceja ALT [Catalytic activity/Vol] 65 U/L Critically high 14-59 [facility] Comment on above: Performed By: #### L IPID, CMP #### [facility] [address] [place] [address] [address] Katrin Ceja Anion gap [Moles/Vol] 15.7 mmol/L Normal [facility] Comment on above: Performed By: #### L IPID, CMP #### [facility] [address] [place] [address] [address] Katrin Ceja AST [Catalytic activity/Vol] 31 U/L Normal 15-37 [facility] Comment on above: Performed By: #### L IPID, CMP #### [facility] [address] [place] [address] [address] Katrin Ceja Bilirubin [Mass/Vol] 0.2 mg/dL Normal 0.2-1.3 [facility] Comment on above: Performed By: #### L IPID, CMP #### [facility] [address] [place] [address] [address] Katrin Ceja Calcium [Mass/Vol] 8.8 mg/dL Normal 8.5-10.1 [facility] Comment on above: Performed By: #### L IPID, CMP #### [facility] [address] [place] [address] [address] Katrin Ceja Chloride [Moles/Vol] 105 mmol/L Normal 98-107 [facility] Comment on above: Performed By: #### L IPID, CMP #### [facility] [address] [place] [address] Dr. Katrin Ceja CO2 [Moles/Vol] 21.3 mmol/L Critically low 22.0-30.0 [facility] Comment on above: Performed By: #### L IPID, CMP #### [facility] [address] [place] [address] [address] Katrin Ceja Creatinine [Mass/Vol] 0.72 mg/dL Normal 0.52-1.04 [facility] Comment on above: Performed By: #### L IPID, CMP #### [facility] [address] [place] [address] [address] Katrin Ceja EGFR-AF TRISTANIAN >60 Normal >=60 [facility] Comment on above: Performed By: #### L IPID, CMP #### [facility] [address] [place] [address] Dr. Katrin Ceja EGFR-NON AF TRISTANIAN >60 Normal >=60 [facility] Comment on above: Performed By: #### L IPID, CMP #### [facility] [address] [place] [address] [address] Katrin Ceja Globulin (S) [Mass/Vol] 4.3 g/dL Normal [facility] Comment on above: Performed By: #### L IPID, CMP #### [facility] [address] [place] [address] [address] Katrin Ceja Glucose [Mass/Vol] 99 mg/dL Normal 74-106 [facility] Comment on above: Performed By: #### L IPID, CMP #### [facility] [address] [place] [address] [address] Katrin Ceja Potassium [Moles/Vol] 4.0 mmol/L Normal 3.4-5.0 [facility] Comment on above: Performed By: #### L IPID, CMP #### [facility] [address] [place] [address] [address] Katrin Ceja Protein [Mass/Vol] 7.9 g/dL Normal 6.1-8.2 [facility] Comment on above: Performed By: #### L IPID, CMP #### [facility] [address] [place] [address] Dr. Katrin Ceja Sodium [Moles/Vol] 138 mmol/L Normal 137-145 [facility] Comment on above: Performed By: #### L IPID, CMP #### [facility] [address] [place] [address] [address] Katrin Ceja Urea nitrogen [Mass/Vol] 13.0 mg/dL Normal 7.0-18.0 [facility] Comment on above: Performed By: #### L IPID, CMP #### [facility] [address] [place] [address] [address] Katrin Ceja Urea nitrogen/Creatinine [Mass ratio] 18.1 mg/mg Normal [facility] Comment on above: Performed By: #### L IPID, CMP #### [facility] [address] [place] [address] [address] Katrin Ceja XR HUMERUS RT MIN [...] by: MODESTA NAVA Date: 2021-10-17 01:46 Normal [facility] XR SHOULDER RT 2V or >on XR SHOULDER RT 2V or > EXAM: XR SHOULDER RT 2V or > HISTORY: Pain right arm pain following fall. COMPARISON: None. TECHNIQUE: Standard 3 views of the right shoulder. FINDINGS: No acute or intrinsic osseous, articular or soft tissue abnormality is seen. IMPRESSION: No acute findings. Electronically authenticated by: MODESTA NAVA Date: 2021-10-17 01:45 Normal [facility] XR WRIST RT MIN 3 Von 2021 XR WRIST RT MIN 3 V EXAM: XR WRIST RT WV N 3 V HISTORY: Pain acute right arm pain following fall. COMPARISON: None. TECHNIQUE: AP, oblique and lateral views of the right wrist. FINDINGS: No acute or intrinsic osseous, articular or soft tissue abnormality is seen. IMPRESSION: No acute right wrist findings. Electronically authenticated by: MODESTA NAVA Date: 2021-10-17 01:44 Normal [facility] AMYLASEon 09-18-2021 Amylase [Catalytic activity/Vol] 34 U/L Normal 31-110 [facility] Comment on above: Performed By: #### P REG #### [facility] [address] [place] [address] Dr. Katrin Ceja CBC AUTO DIFFon 09-18-2021 BASO # 0.0 103/ul Normal 0.0-0.1 [facility] Comment on above: Performed By: #### C BC #### [facility] [address] [place] [address] Dr. Katrin Ceja Basophils/100 WBC (Bld) 0.3 % Normal 0.2-2.0 [facility] Comment on above: Performed By: #### C BC #### [facility] [address] [place] [address] Dr. Katrin Ceja EO # 0.2 103/ul Normal 0.0-0.7 [facility] Comment on above: Performed By: #### C BC #### [facility] [address] [place] [address] Dr. Katrin Ceja Eosinophils/100 WBC (Bld) 2.4 % Normal 0.9-7.0 [facility] Comment on above: Performed By: #### C BC #### [facility] [address] [place] [address] Dr. Katrin Ceja Erythrocyte distribution width (RBC) [Ratio] 12.5 % Normal 11.0-15.0 [facility] Comment on above: Performed By: #### C BC #### [facility] [address] [place] [address] Dr. Katrin Ceja Hematocrit (Bld) [Volume fraction] 37.4 % Normal 36.0-48.0 [facility] Comment on above: Performed By: #### C BC #### [facility] [address] [place] [address] Dr. Katrin Ceja Hemoglobin (Bld) [Mass/Vol] 12.3 g/dL Normal 12.0-16.0 [facility] Comment on above: Performed By: #### C BC #### [facility] [address] [place] [address] Dr. Katrin Ceja IG # 0.05 10e3/ul Critically high 0.00-0.03 [facility] Comment on above: Performed By: #### C BC #### [facility] [address] [place] [address] Dr. Katrin Ceja IG % 0.5 % Normal 0.0-0.5 [facility] Comment on above: Performed By: #### C BC #### [facility] [address] [place] [address] Dr. Katrin Ceja LYMPH # 3.1 103/ul Normal 1.2-3.8 [facility] Comment on above: Performed By: #### C BC #### [facility] [address] [place] [address] Dr. Katrin Ceja Lymphocytes/100 WBC (Bld) 31.7 % Normal 20.5-60.0 [facility] Comment on above: Performed By: #### C BC #### [facility] [address] [place] [address] Dr. Katrin Ceja MANUAL DIFF REQ NO Normal [facility] Comment on above: Performed By: #### C BC #### [facility] [address] [place] [address] Dr. Katrin Ceja MCH (RBC) [Entitic mass] 28.9 pg Normal 26.7-34.0 [facility] Comment on above: Performed By: #### C BC #### [facility] [address] [place] [address] Dr. Katrin Ceja MCHC (RBC) [Mass/Vol] 32.9 g/dL Normal 29.9-35.2 [facility] Comment on above: Performed By: #### C BC #### [facility] [address] [place] [address] Dr. Katrin Ceja MCV (RBC) [Entitic vol] 88.0 fL Normal 81.0-99.0 [facility] Comment on above: Performed By: #### C BC #### [facility] [address] [place] [address] Dr. Katrin Ceja MONO # 0.7 103/ul Normal 0.3-0.8 [facility] Comment on above: Performed By: #### C BC #### [facility] [address] [place] [address] Dr. Katrin Ceja Monocytes/100 WBC (Bld) 6.7 % Normal 1.7-12.0 [facility] Comment on above: Performed By: #### C BC #### [facility] [address] [place] [address] Dr. Katrin Ceja NEUT # 5.7 103/ul Normal 1.4-6.5 [facility] Comment on above: Performed By: #### C BC #### [facility] [address] [place] [address] Dr. Katrin Ceja Neutrophils/100 WBC (Bld) 58.4 % Normal 43.0-75.0 [facility] Comment on above: Performed By: #### C BC #### [facility] [address] [place] [address] Dr. Katrin Ceja Platelet mean volume (Bld) [Entitic vol] 8.8 fL Critically low 9.5-13.5 [facility] Comment on above: Performed By: #### C BC #### [facility] [address] [place] [address] Dr. Katrin Ceja PLT 265 103/ul Normal 150-450 [facility] Comment on above: Performed By: #### C BC #### [facility] [address] [place] [address] Dr. Katrin Ceja RBC 4.25 106/ul Normal 4.20-5.40 [facility] Comment on above: Performed By: #### C BC #### [facility] [address] [place] [address] Dr. Katrin Ceja WBC 9.7 103/ul Normal 4.0-11.0 [facility] Comment on above: Performed By: #### C BC #### [facility] [address] [place] [address] ABD/PELV W CONon 09-19-[address] ABD/PELV W CON EXAMINATION: CT ABD/ [...] ISAIAH FAROOQ Date: 2021-09-18 03:51 Normal [facility] ER URINE PROFILEon 2 Bilirubin Ql (U) Negative Normal NEGATIVE [facility] Comment on above: Performed By: #### C BC #### [facility] [address] [place] [address] [address] Katrin Ceja Clarity (U) CLEAR Normal CLEAR [facility] Comment on above: Performed By: #### C BC #### [facility] [address] [place] [address] [address] Katrin Ceja Color (U) LT. YELLOW Normal YELLOW [facility] Comment on above: Performed By: #### C BC #### [facility] [address] [address] [address] Katrin Ceja ERUAHD A micrscopic examina tion will be performed if indicated. Normal [facility] Comment on above: Performed By: #### C BC #### [facility] [address] [place] [address] Dr. Katrin Ceja Glucose Ql (U) Negative Normal NEGATIVE [facility] [place] [facility] Comment on above: Performed By: #### C BC #### [facility] [address] [place] [address] Dr. Katrin Ceja Hemoglobin Ql (U) SMALL Abnormal NEGATIVE [facility] Comment on above: Performed By: #### C BC #### [facility] [address] [place] [address] Dr. Katrin Ceja Ketones Ql (U) Negative Normal NEGATIVE [facility] [place] [facility] Comment on above: Performed By: #### C BC #### [facility] [address] [place] [address] Dr. Katrin Ceja LEUKOCYTES Negative Normal NEGATIVE [facility] Comment on above: Performed By: #### C BC #### [facility] [address] [place] [address] Dr. Katrin Ceja Nitrite Ql (U) Negative Normal NEGATIVE [facility] [place] [facility] Comment on above: Performed By: #### C BC #### [facility] [address] [place] [address] Dr. Katrin Ceja pH (U) 7.5 [pH] Normal 5-9 [facility] Comment on above: Performed By: #### C BC #### [facility] [address] [place] [address] Dr. Katrin Ceja SPEC GRAVITY 1.010 Normal 1.005-<=1. 025 [facility] Comment on above: Performed By: #### C BC #### [facility] [address] [place] [address] Dr. Katrin Ceja UA PROTEIN Negative Normal NEGATIVE/ TRACE [facility] Comment on above: Performed By: #### C BC #### [facility] [address] [place] [address] Dr. Katrin Ceja UR MICRO IND INDICATED Normal [facility] Comment on above: Performed By: #### C BC #### [facility] [address] [place] [address] Dr. Katrin Ceja Urobilinogen Qn (U) 0.2 {Jeannie'U}/dL Normal 0.2 - 1. 0 [facility] Comment on above: Performed By: #### C BC #### [facility] [address] [place] [address] Dr. Katrin Ceja LIPASEon 09-18-2021 Lipase [Catalytic activity/Vol] 81.0 U/L Normal 23.0-300.0 [facility] Comment on above: Performed By: #### P REG #### [facility] [address] [place] [address] Dr. Katrin Ceja URon 09-18-2021 , QUAL Negative Normal NEGATIVE [facility] Comment on above: Performed By: #### C BC #### [facility] [address] [place] [address] Dr. Katrin Ceja PROF 14(COMP METB)on 022 Albumin [Mass/Vol] 3.2 g/dL Critically low 3.5-5.0 [facility] Comment on above: Performed By: #### P REG #### [facility] [address] [place] [address] Dr. Katrin Ceja Albumin/Globulin [Mass ratio] 0.8 {ratio} Normal [facility] Comment on above: Performed By: #### P REG #### [facility] [address] [place] [address] Dr. Katrin Ceja ALP [Catalytic activity/Vol] 216 U/L Critically high 38-126 [facility] Comment on above: Performed By: #### P REG #### [facility] [address] [place] [address] Dr. Katrin Ceja ALT [Catalytic activity/Vol] 109 U/L Critically high 9-52 [facility] Comment on above: Performed By: #### P REG #### [facility] [address] [place] [address] Dr. Katrin Ceja Anion gap [Moles/Vol] 10.5 mmol/L Normal [facility] Comment on above: Performed By: #### P REG #### [facility] [address] [place] [address] [address] Katrin Ceja AST [Catalytic activity/Vol] 66 U/L Critically high 14-36 [facility] Comment on above: Performed By: #### P REG #### [facility] [address] [address] [address] Katrin Ceja Bilirubin [Mass/Vol] 0.2 mg/dL Normal 0.2-1.3 [facility] Comment on above: Performed By: #### P REG #### [facility] [address] [address] [address] Katrin Ceja Calcium [Mass/Vol] 8.3 mg/dL Critically low 8.4-10.2 [facility] Comment on above: Performed By: #### P REG #### [facility] [address] [place] [address] [address] Katrin Ceja Chloride [Moles/Vol] 103 mmol/L Normal 98-107 [facility] Comment on above: Performed By: #### P REG #### [facility] [address] [address] [address] Katrin Ceja CO2 [Moles/Vol] 26.2 mmol/L Normal 22.0-30.0 [facility] Comment on above: Performed By: #### P REG #### [facility] [address] [address] [address] Katrin Ceja Creatinine [Mass/Vol] 0.81 mg/dL Normal 0.52-1.04 [facility] Comment on above: Performed By: #### P REG #### [facility] [address] [address] [address] Katrin Ceja EGFR-AF TRISTANIAN >60 Normal >=60 [facility] Comment on above: Performed By: #### P REG #### [facility] [address] [address] [address] Katrin Ceja EGFR-NON AF TRISTANIAN >60 Normal >=60 [facility] Comment on above: Performed By: #### P REG #### [facility] [address] [place] [address] Dr. Katrin Ceja Globulin (S) [Mass/Vol] 4.1 g/dL Normal [facility] Comment on above: Performed By: #### P REG #### [facility] [address] [place] [address] Dr. Katrin Ceja Glucose [Mass/Vol] 90 mg/dL Normal 74-106 [facility] Comment on above: Performed By: #### P REG #### [facility] [address] [place] [address] Dr. Katrin Ceja Potassium [Moles/Vol] 3.7 mmol/L Normal 3.4-5.0 [facility] Comment on above: Performed By: #### P REG #### [facility] [address] [place] [address] Dr. Katrin Ceja Protein [Mass/Vol] 7.3 g/dL Normal 6.1-8.2 [facility] Comment on above: Performed By: #### P REG #### [facility] [address] [place] [address] Dr. Katrin Ceja Sodium [Moles/Vol] 136 mmol/L Critically low 137-145 [facility] Comment on above: Performed By: #### P REG #### [facility] [address] [place] [address] Dr. Katrin Ceja Urea nitrogen [Mass/Vol] 5.0 mg/dL Critically low 7.0-17.0 [facility] Comment on above: Performed By: #### P REG #### [facility] [address] [place] [address] Dr. Katrin Ceja Urea nitrogen/Creatinine [Mass ratio] 6.2 mg/mg Normal [facility] Comment on above: Performed By: #### P REG #### [facility] [address] [place] [address] Dr. Katrin Ceja URINE MICROSCOPIC ONLYon BACTERIA NONE SEEN Normal NONE SEEN [facility] Comment on above: Performed By: #### C BC #### [facility] [address] [place] [address] Dr. Katrin Ceja Bacteria identified Cx Nom (U) NOT INDICATED Normal [facility] Comment on above: Performed By: #### C BC #### [facility] [address] [place] [address] Dr. Katrin Ceja CAST NONE SEEN Normal NONE SEEN [facility] Comment on above: Performed By: #### C BC #### [facility] [address] [place] [address] Dr. Katrin Ceja Crystals LM Nom (Urine sed) NONE SEEN Normal NONE SEEN [facility] Comment on above: Performed By: #### C BC #### [facility] [address] [place] [address] Dr. Katrin Ceja Epithelial cells LM Ql (Urine sed) FEW Abnormal NONE SEEN /RARE [facility] Comment on above: Performed By: #### C BC #### [facility] [address] [place] [address] Dr. Katrin Ceja MUCOUS NONE SEEN Normal NONE SEEN [facility] Comment on above: Performed By: #### C BC #### [facility] [address] [place] [address] Dr. Katrin Ceja RBC NONE SEEN Abnormal 0-2 [facility] Comment on above: Performed By: #### C BC #### [facility] [address] [place] [address] Dr. Katrin Ceja WBC NONE SEEN Normal NONE SEEN [facility] Comment on above: Performed By: #### C BC #### [facility] [address] [place] [address] Dr. Katrin Ceja XR ABD FLAT UP_PA [...] ISAIAH FAROOQ Date: 2021-09-18 02:00 Normal [facility] CBC AUTO DIFFon 07-18-2021 BASO # 0.0 103/ul Normal 0.0-0.1 [facility] Comment on above: Performed By: #### C BC #### [facility] [address] [address] [address] Katrin Ceja Basophils/100 WBC (Bld) 0.3 % Normal 0.2-2.0 [facility] Comment on above: Performed By: #### C BC #### [facility] [address] [address] [address] Katrin Ceja EO # 0.2 103/ul Normal 0.0-0.7 [facility] Comment on above: Performed By: #### C BC #### [facility] [address] [address] [address] Katrin Ceja Eosinophils/100 WBC (Bld) 1.7 % Normal 0.9-7.0 [facility] Comment on above: Performed By: #### C BC #### [facility] [address] [address] [address] Katrin Ceja Erythrocyte distribution width (RBC) [Ratio] 13.1 % Normal 11.0-15.0 [facility] Comment on above: Performed By: #### C BC #### [facility] [address] [place] [address] Dr. Katrin Ceja Hematocrit (Bld) [Volume fraction] 42.0 % Normal 36.0-48.0 [facility] Comment on above: Performed By: #### C BC #### [facility] [address] [address] [address] Katrin Ceja Hemoglobin (Bld) [Mass/Vol] 13.7 g/dL Normal 12.0-16.0 [facility] Comment on above: Performed By: #### C BC #### [facility] [address] [address] [address] Katrin Ceja IG # 0.07 10e3/ul Critically high 0.00-0.03 [facility] Comment on above: Performed By: #### C BC #### [facility] [address] [place] [address] Dr. Katrin Ceja IG % 0.6 % Critically high 0.0-0.5 [facility] Comment on above: Performed By: #### C BC #### [facility] [address] [place] [address] Dr. Katrin Ceja LYMPH # 2.9 103/ul Normal 1.2-3.8 [facility] Comment on above: Performed By: #### C BC #### [facility] [address] [place] [address] Dr. Katrin Ceja Lymphocytes/100 WBC (Bld) 27.1 % Normal 20.5-60.0 [facility] Comment on above: Performed By: #### C BC #### [facility] [address] [place] [address] Dr. Katrin Ceja MANUAL DIFF REQ NO Normal [facility] Comment on above: Performed By: #### C BC #### [facility] [address] [place] [address] Dr. Katrin Ceja MCH (RBC) [Entitic mass] 29.3 pg Normal 26.7-34.0 [facility] Comment on above: Performed By: #### C BC #### [facility] [address] [place] [address] Dr. Katrin Ceja MCHC (RBC) [Mass/Vol] 32.6 g/dL Normal 29.9-35.2 [facility] Comment on above: Performed By: #### C BC #### [facility] [address] [place] [address] Dr. Katrin Ceja MCV (RBC) [Entitic vol] 89.7 fL Normal 81.0-99.0 [facility] Comment on above: Performed By: #### C BC #### [facility] [address] [place] [address] Dr. Katrin Ceja MONO # 0.9 103/ul Critically high 0.3-0.8 [facility] Comment on above: Performed By: #### C BC #### [facility] [address] [address] [address] Katrin Ceja Monocytes/100 WBC (Bld) 8.2 % Normal 1.7-12.0 [facility] Comment on above: Performed By: #### C BC #### [facility] [address] [place] [address] Dr. Katrin Ceja NEUT # 6.7 103/ul Critically high 1.4-6.5 [facility] Comment on above: Performed By: #### C BC #### [facility] [address] [place] [address] Dr. Katrin Ceja Neutrophils/100 WBC (Bld) 62.1 % Normal 43.0-75.0 [facility] Comment on above: Performed By: #### C BC #### [facility] [address] [place] [address] Dr. Katrin Ceja Platelet mean volume (Bld) [Entitic vol] 9.7 fL Normal 9.5-13.5 [facility] Comment on above: Performed By: #### C BC #### [facility] [address] [place] [address] Dr. Katrin Ceja PLT 334 103/ul Normal 150-450 [facility] Comment on above: Performed By: #### C BC #### [facility] [address] [place] [address] Dr. Katrin Ceja RBC 4.68 106/ul Normal 4.20-5.40 [facility] Comment on above: Performed By: #### C BC #### [facility] [address] [place] [address] Dr. Katrin Ceja WBC 10.8 103/ul Normal 4.0-11.0 [facility] Comment on above: Performed By: #### C BC #### [facility] [address] [place] [address] Dr. Katrin Ceja GLYCOHEMOGLOBIN A1Con 2021 ADA RECOMMENDATION ADA THERAPEUTIC TARG ET 6.0 - 7.0 ACTION SUGGESTED > 7.0 Normal [facility] Comment on above: Performed By: #### C BC #### [facility] [address] [place] [address] Dr. Katrin Ceja Glucose [Mass/Vol] 105 mg/dL Normal [facility] Comment on above: Performed By: #### C BC #### [facility] [address] [address] [address] Ktarin Ceja HbA1c (Bld) [Mass fraction] 5.3 % Normal <=6.0 [facility] Comment on above: Performed By: #### C BC #### [facility] [address] [address] [address] Katrin Ceja LIPID PROFILEon 07-18-2021 CHOL-HDL RATIO NORM SEE BELOW Normal [facility] Comment on above: Result Comment: 3.3 - 4.4 LOW RISK 4.4 - 7.1 AVERAGE RISK 7.1 - 11.0 MODERATE RISK >11.0 HIGH RISK Performed By: #### L IPID, CMP #### [facility] [address] [address] [address] Katrin Ceja Cholesterol [Mass/Vol] 302 mg/dL Critically high <=200 [facility] Comment on above: Performed By: #### L IPID, CMP #### [facility] [address] [address] [address] Katrin Ceja Cholesterol in HDL [Mass/Vol] 39 mg/dL Normal [facility] Comment on above: Performed By: #### L IPID, CMP #### [facility] [address] [address] [address] Katrin Ceja Cholesterol in LDL [Mass/Vol] 207.0 mg/dL Normal [facility] Comment on above: Performed By: #### L IPID, CMP #### [facility] [address] [address] [address] Katrin Ceja Cholesterol.total/Chol esterol in HDL [Mass ratio] 7.7 {ratio} Normal [facility] Comment on above: Performed By: #### L IPID, CMP #### [facility] [address] [address] [address] Katrin Ceja HDL NORMAL > or = 60 mg/dl - LO W CARDIOVASCULAR RISK <40 mg/dl - HIGH CARDIOVASCULAR RISK Normal [facility] Comment on above: Performed By: #### L IPID, CMP #### [facility] [address] [address] [address] Katrin Ceja LDL CALC NORMAL SEE BELOW Normal [facility] Comment on above: Result Comment: <100 mg/dl OPTIMAL 100 - 129 mg/dl NEAR OR ABOVE OPTIMAL 130 - 159 mg/dl BORDERLINE HIGH 160 - 189 mg/dl HIGH >190 mg/dl VERY HIGH Performed By: #### L IPID, CMP #### [facility] [address] [address] [address] Katrin Ceja Triglyceride [Mass/Vol] 280 mg/dL Critically high <=150 [facility] Comment on above: Performed By: #### L IPID, CMP #### [facility] [address] [address] [address] Katrin Ceja VLDL CALC 56.0 mg/dL Normal [facility] Comment on above: Performed By: #### L IPID, CMP #### [facility] [address] [address] [address] Katrin Ceja PROF 14(COMP METB)on 022 Albumin [Mass/Vol] 3.5 g/dL Normal 3.5-5.0 [facility] Comment on above: Performed By: #### L IPID, CMP #### [facility] [address] [place] [address] Dr. Katrin Ceja Albumin/Globulin [Mass ratio] 0.7 {ratio} Normal [facility] Comment on above: Performed By: #### L IPID, CMP #### [facility] [address] [address] [address] Katrin Ceja ALP [Catalytic activity/Vol] 291 U/L Critically high 38-126 [facility] Comment on above: Performed By: #### L IPID, CMP #### [facility] [address] [address] [address] Katrin Ceja ALT [Catalytic activity/Vol] 174 U/L Critically high 9-52 [facility] Comment on above: Performed By: #### L IPID, CMP #### [facility] [address] [address] [address] Katrin Ceja Anion gap [Moles/Vol] 15.3 mmol/L Normal [facility] Comment on above: Performed By: #### L IPID, CMP #### [facility] [address] [address] [address] Katrin Ceja AST [Catalytic activity/Vol] 97 U/L Critically high 14-36 [facility] Comment on above: Performed By: #### L IPID, CMP #### [facility] [address] [address] [address] Katrin Ceja Bilirubin [Mass/Vol] 0.4 mg/dL Normal 0.2-1.3 [facility] Comment on above: Performed By: #### L IPID, CMP #### [facility] [address] [place] [address] Dr. Katrin Ceja Calcium [Mass/Vol] 9.3 mg/dL Normal 8.4-10.2 [facility] Comment on above: Performed By: #### L IPID, CMP #### [facility] [address] [address] [address] Katrin Ceja Chloride [Moles/Vol] 99 mmol/L Normal 98-107 [facility] Comment on above: Performed By: #### L IPID, CMP #### [facility] [address] [address] [address] Katrin Ceja CO2 [Moles/Vol] 24.1 mmol/L Normal 22.0-30.0 [facility] Comment on above: Performed By: #### L IPID, CMP #### [facility] [address] [address] [address] Katrin Ceja Creatinine [Mass/Vol] 0.65 mg/dL Normal 0.52-1.04 [facility] Comment on above: Performed By: #### L IPID, CMP #### [facility] [address] [address] [address] Katrin Ceja EGFR-AF TRISTANIAN >60 Normal >=60 [facility] Comment on above: Performed By: #### L IPID, CMP #### [facility] [address] [address] [address] Katrin Ceja EGFR-NON AF TRISTANIAN >60 Normal >=60 [facility] Comment on above: Performed By: #### L IPID, CMP #### [facility] [address] [address] [address] Katrin Ceja Globulin (S) [Mass/Vol] 5.0 g/dL Normal [facility] Comment on above: Performed By: #### L IPID, CMP #### [facility] [address] [address] [address] Katrin Ceja Glucose [Mass/Vol] 86 mg/dL Normal 74-106 [facility] Comment on above: Performed By: #### L IPID, CMP #### [facility] [address] [place] [address] Dr. Katrin Ceja Potassium [Moles/Vol] 4.4 mmol/L Normal 3.4-5.0 [facility] Comment on above: Performed By: #### L IPID, CMP #### [facility] [address] [address] [address] Katrin Ceja Protein [Mass/Vol] 8.5 g/dL Critically high 6.1-8.2 [facility] Comment on above: Performed By: #### L IPID, CMP #### [facility] [address] [place] [address] Dr. Katrin Ceja Sodium [Moles/Vol] 134 mmol/L Critically low 137-145 [facility] Comment on above: Performed By: #### L IPID, CMP #### [facility] [address] [address] [address] Katrin Ceja Urea nitrogen [Mass/Vol] 8.0 mg/dL Normal 7.0-17.0 [facility] Comment on above: Performed By: #### L IPID, CMP #### [facility] [address] [place] [address] Dr. Katrin Ceja Urea nitrogen/Creatinine [Mass ratio] 12.3 mg/mg Normal [facility] Comment on above: Performed By: #### L IPID, CMP #### [facility] [address] [place] [address] Dr. Katrin Ceja AMYLASEon 05-01-2021 AMYL <30 Critically low 31-110 [facility] Comment on above: Performed By: #### P REG #### [facility] [address] [place] [address] Dr. Katrin Ceja CBC AUTO DIFFon 05-01-2021 BASO # 0.0 103/ul Normal 0.0-0.1 [facility] Comment on above: Performed By: #### L IPID, CMP #### [facility] [address] [place] [address] Dr. Katrin Ceja Basophils/100 WBC (Bld) 0.3 % Normal 0.2-2.0 [facility] Comment on above: Performed By: #### L IPID, CMP #### [facility] [address] [place] [address] Dr. Katrin Ceja EO # 0.1 103/ul Normal 0.0-0.7 [facility] Comment on above: Performed By: #### L IPID, CMP #### [facility] [address] [place] [address] Dr. Katrin Ceja Eosinophils/100 WBC (Bld) 0.4 % Critically low 0.9-7.0 [facility] Comment on above: Performed By: #### L IPID, CMP #### [facility] [address] [place] [address] Dr. Katrin Ceja Erythrocyte distribution width (RBC) [Ratio] 13.0 % Normal 11.0-15.0 [facility] Comment on above: Performed By: #### L IPID, CMP #### [facility] [address] [place] [address] Dr. Katrin eCja Hematocrit (Bld) [Volume fraction] 37.7 % Normal 36.0-48.0 [facility] Comment on above: Performed By: #### L IPID, CMP #### [facility] [address] [place] [address] Dr. Katrin Ceja Hemoglobin (Bld) [Mass/Vol] 12.5 g/dL Normal 12.0-16.0 [facility] Comment on above: Performed By: #### L IPID, CMP #### [facility] [address] [address] [address] Katrin Ceja IG # 0.09 10e3/ul Critically high 0.00-0.03 [facility] Comment on above: Performed By: #### L IPID, CMP #### [facility] [address] [address] [address] Katrin Ceja IG % 0.6 % Critically high 0.0-0.5 [facility] Comment on above: Performed By: #### L IPID, CMP #### [facility] [address] [place] [address] Dr. Katrin Ceja LYMPH # 1.9 103/ul Normal 1.2-3.8 [facility] Comment on above: Performed By: #### L IPID, CMP #### [facility] [address] [address] [address] Katrin Ceja Lymphocytes/100 WBC (Bld) 12.1 % Critically low 20.5-60.0 [facility] Comment on above: Performed By: #### L IPID, CMP #### [facility] [address] [place] [address] Dr. Katrin Ceja MANUAL DIFF REQ NO Normal [facility] Comment on above: Performed By: #### L IPID, CMP #### [facility] [address] [address] [address] Katrin Ceja MCH (RBC) [Entitic mass] 28.8 pg Normal 26.7-34.0 [facility] Comment on above: Performed By: #### L IPID, CMP #### [facility] [address] [place] [address] Dr. Katrin Ceja MCHC (RBC) [Mass/Vol] 33.2 g/dL Normal 29.9-35.2 [facility] Comment on above: Performed By: #### L IPID, CMP #### [facility] [address] [place] [address] Dr. Katrin Ceja MCV (RBC) [Entitic vol] 86.9 fL Normal 81.0-99.0 [facility] Comment on above: Performed By: #### L IPID, CMP #### [facility] [address] [place] [address] Dr. Katrin Ceja MONO # 1.1 103/ul Critically high 0.3-0.8 [facility] Comment on above: Performed By: #### L IPID, CMP #### [facility] [address] [place] [address] Dr. Katrin Ceja Monocytes/100 WBC (Bld) 7.1 % Normal 1.7-12.0 [facility] Comment on above: Performed By: #### L IPID, CMP #### [facility] [address] [place] [address] Dr. Katrin Ceja NEUT # 12.3 103/ul Critically high 1.4-6.5 [facility] Comment on above: Performed By: #### L IPID, CMP #### [facility] [address] [place] [address] Dr. Katrin Ceja Neutrophils/100 WBC (Bld) 79.5 % Critically high 43.0-75.0 [facility] Comment on above: Performed By: #### L IPID, CMP #### [facility] [address] [place] [address] Dr. Katrin Ceja Platelet mean volume (Bld) [Entitic vol] 8.7 fL Critically low 9.5-13.5 [facility] Comment on above: Performed By: #### L IPID, CMP #### [facility] [address] [place] [address] Dr. Katrin Ceja PLT 329 103/ul Normal 150-450 [facility] Comment on above: Performed By: #### L IPID, CMP #### [facility] [address] [place] [address] Dr. Katrin Ceja RBC 4.34 106/ul Normal 4.20-5.40 [facility] Comment on above: Performed By: #### L IPID, CMP #### [facility] [address] [place], [place] [address] Dr. Katrin Ceja WBC 15.5 103/ul Critically high 4.0-11.0 [facility] Comment on above: Performed By: #### L IPID, CMP #### [facility] [address] [place], [place] [address] ABD/PELV W CONon [...] HILDA RAHMAN Date: 2021-05-01 20:30 Normal [facility] LIPASEon 05-01-2021 Lipase [Catalytic activity/Vol] 64.0 U/L Normal 23.0-300.0 [facility] Comment on above: Performed By: #### P REG #### [facility] [address] [place] [address] Dr. Katrin Ceja LIVER PROFILEon 05-01-2021 Albumin [Mass/Vol] 3.3 g/dL Critically low 3.5-5.0 [facility] Comment on above: Performed By: #### L IPID, CMP #### [facility] [address] [place] [address] Dr. Katrin Ceja Albumin/Globulin [Mass ratio] 0.6 {ratio} Normal [facility] Comment on above: Performed By: #### L IPID, CMP #### [facility] [address] [place] [address] Dr. Katrin Ceja ALP [Catalytic activity/Vol] 412 U/L Critically high 38-126 [facility] Comment on above: Performed By: #### L IPID, CMP #### [facility] [address] [place] [address] Dr. Katrin Ceja ALT [Catalytic activity/Vol] 124 U/L Critically high 9-52 [facility] Comment on above: Performed By: #### L IPID, CMP #### [facility] [address] [place] [address] Dr. Katrin Ceja AST [Catalytic activity/Vol] 61 U/L Critically high 14-36 [facility] Comment on above: Performed By: #### L IPID, CMP #### [facility] [address] [place] [address] Dr. Katrin Ceja BILI, CONJUGATED 0.2 mg/dL Normal 0.0-0.3 [facility] Comment on above: Performed By: #### L IPID, CMP #### [facility] [address] [address] [address] Katrin Ceja Bilirubin [Mass/Vol] 0.4 mg/dL Normal 0.2-1.3 [facility] Comment on above: Performed By: #### L IPID, CMP #### [facility] [address] [address] [address] Katrin Ceja Globulin (S) [Mass/Vol] 5.1 g/dL Normal [facility] Comment on above: Performed By: #### L IPID, CMP #### [facility] [address] [address] [address] Katrin Ceja Protein [Mass/Vol] 8.4 g/dL Critically high 6.1-8.2 [facility] Comment on above: Performed By: #### L IPID, CMP #### [facility] [address] [place] [address] Dr. Katrin Ceja PREG HCG QUALon 05-01-2021 , QUAL Negative Normal NEGATIVE [facility] Comment on above: Performed By: #### P REG #### [facility] [address] [address] [address] Katrin Ceja PROF CHEM 8 (BAS METB)on Anion gap [Moles/Vol] 17.1 mmol/L Normal [facility] Comment on above: Performed By: #### P REG #### [facility] [address] [address] [address] Katrin Ceja Calcium [Mass/Vol] 8.9 mg/dL Normal 8.4-10.2 [facility] Comment on above: Performed By: #### P REG #### [facility] [address] [address] [address] Katrin Ceja Chloride [Moles/Vol] 100 mmol/L Normal 98-107 [facility] Comment on above: Performed By: #### P REG #### [facility] [address] [address] [address] Katrin Ceja CO2 [Moles/Vol] 21.1 mmol/L Critically low 22.0-30.0 [facility] Comment on above: Performed By: #### P REG #### [facility] [address] [address] [address] Katrin Ceja Creatinine [Mass/Vol] 0.78 mg/dL Normal 0.52-1.04 [facility] Comment on above: Performed By: #### P REG #### [facility] [address] [address] [address] Katrin Ceja EGFR-AF TRISTANIAN >60 Normal >=60 [facility] Comment on above: Performed By: #### P REG #### [facility] [address] [address] [address] Katrin Ceja EGFR-NON AF TRISTANIAN >60 Normal >=60 [facility] Comment on above: Performed By: #### P REG #### [facility] [address] [address] [address] Katrin Ceja Glucose [Mass/Vol] 97 mg/dL Normal 74-106 [facility] Comment on above: Performed By: #### P REG #### [facility] [address] [address] [address] Katrin Ceja Potassium [Moles/Vol] 4.2 mmol/L Normal 3.4-5.0 [facility] Comment on above: Performed By: #### P REG #### [facility] [address] [address] [address] Katrin Ceja Sodium [Moles/Vol] 134 mmol/L Critically low 137-145 [facility] Comment on above: Performed By: #### P REG #### [facility] [address] [address] [address] Katrin Ceja Urea nitrogen [Mass/Vol] 6.0 mg/dL Critically low 7.0-17.0 [facility] Comment on above: Performed By: #### P REG #### [facility] [address] [address] [address] Katrin Ceja Urea nitrogen/Creatinine [Mass ratio] 7.7 mg/mg Normal [facility] Comment on above: Performed By: #### P REG #### [facility] [address] [place] [address] Dr. Katrin Ceja CBC AUTO DIFFon 04-29-2021 BASO # 0.1 103/ul Normal 0.0-0.1 [facility] Comment on above: Performed By: #### L IPID, CMP #### [facility] [address] [place] [address] Dr. Katrin Ceja Basophils/100 WBC (Bld) 0.4 % Normal 0.2-2.0 [facility] Comment on above: Performed By: #### L IPID, CMP #### [facility] [address] [place] [address] Dr. Katrin Ceja EO # 0.2 103/ul Normal 0.0-0.7 [facility] Comment on above: Performed By: #### L IPID, CMP #### [facility] [address] [place] [address] Dr. Katrin Ceja Eosinophils/100 WBC (Bld) 1.7 % Normal 0.9-7.0 [facility] Comment on above: Performed By: #### L IPID, CMP #### [facility] [facility] [address] [place] [address] Dr. Katrin Ceja Erythrocyte distribution width (RBC) [Ratio] 12.9 % Normal 11.0-15.0 [facility] Comment on above: Performed By: #### L IPID, CMP #### [facility] [address] [place] [address] Dr. Katrin Ceja Hematocrit (Bld) [Volume fraction] 39.0 % Normal 36.0-48.0 [facility] Comment on above: Performed By: #### L IPID, CMP #### [facility] [address] [place] [address] Dr. Katrin Ceja Hemoglobin (Bld) [Mass/Vol] 12.9 g/dL Normal 12.0-16.0 [facility] Comment on above: Performed By: #### L IPID, CMP #### [facility] [address] [place] [address] Dr. Katrin Ceja IG # 0.08 10e3/ul Critically high 0.00-0.03 [facility] Comment on above: Performed By: #### L IPID, CMP #### [facility] [address] [place] [address] Dr. Katrin Ceja IG % 0.6 % Critically high 0.0-0.5 [facility] Comment on above: Performed By: #### L IPID, CMP #### [facility] [address] [place] [address] Dr. Katrin Ceja LYMPH # 3.2 103/ul Normal 1.2-3.8 [facility] Comment on above: Performed By: #### L IPID, CMP #### [facility] [address] [place] [address] Dr. Katrin Ceja Lymphocytes/100 WBC (Bld) 24.4 % Normal 20.5-60.0 [facility] Comment on above: Performed By: #### L IPID, CMP #### [facility] [address] [place] [address] Dr. Katrin Ceja MANUAL DIFF REQ NO Normal [facility] Comment on above: Performed By: #### L IPID, CMP #### [facility] [address] [place] [address] Dr. Katrin Ceja MCH (RBC) [Entitic mass] 29.1 pg Normal 26.7-34.0 [facility] Comment on above: Performed By: #### L IPID, CMP #### [facility] [address] [place] [address] Dr. Katrin Ceja MCHC (RBC) [Mass/Vol] 33.1 g/dL Normal 29.9-35.2 [facility] Comment on above: Performed By: #### L IPID, CMP #### [facility] [address] [place] [address] Dr. Katrin Ceja MCV (RBC) [Entitic vol] 88.0 fL Normal 81.0-99.0 [facility] Comment on above: Performed By: #### L IPID, CMP #### [facility] [address] [place] [address] Dr. Katrin Ceja MONO # 1.2 103/ul Critically high 0.3-0.8 [facility] Comment on above: Performed By: #### L IPID, CMP #### [facility] [address] [place] [address] Dr. Katrin Ceja Monocytes/100 WBC (Bld) 9.2 % Normal 1.7-12.0 [facility] Comment on above: Performed By: #### L IPID, CMP #### [facility] [address] [place] [address] Dr. Katrin Ceja NEUT # 8.3 103/ul Critically high 1.4-6.5 [facility] Comment on above: Performed By: #### L IPID, CMP #### [facility] [address] [place] [address] Dr. Katrin Ceja Neutrophils/100 WBC (Bld) 63.7 % Normal 43.0-75.0 [facility] Comment on above: Performed By: #### L IPID, CMP #### [facility] [address] [place] [address] Dr. Katrin Ceja Platelet mean volume (Bld) [Entitic vol] 9.2 fL Critically low 9.5-13.5 [facility] Comment on above: Performed By: #### L IPID, CMP #### [facility] [address] [place] [address] Dr. Katrin Ceja PLT 384 103/ul Normal 150-450 [facility] Comment on above: Performed By: #### L IPID, CMP #### [facility] [address] [place] [address] Dr. Katrin Ceja RBC 4.43 106/ul Normal 4.20-5.40 [facility] Comment on above: Performed By: #### L IPID, CMP #### [facility] [address] [place] [address] Dr. Katrin Ceja WBC 13.1 103/ul Critically high 4.0-11.0 [facility] Comment on above: Performed By: #### L IPID, CMP #### [facility] [address] [place] [address] ABD/PELV W CONon [...] by: Lorenzo LAN Date: 2021-04-29 02:49 Normal [facility] LACTATE/LACTIC ACIDon 2020 Lactate [Moles/Vol] 1.2 mmol/L Normal 0.7-2.0 [facility] Comment on above: Performed By: #### C BC #### [facility] [address] [place] [address] Dr. Katrin Ceja PROF 14(COMP METB)on 021 Albumin [Mass/Vol] 3.4 g/dL Critically low 3.5-5.0 [facility] Comment on above: Performed By: #### C BC #### [facility] [address] [place] [address] Dr. Katrin Ceja Albumin/Globulin [Mass ratio] 0.7 {ratio} Normal [facility] Comment on above: Performed By: #### C BC #### [facility] [address] [place] [address] Dr. Katrin Ceja ALP [Catalytic activity/Vol] 359 U/L Critically high 38-126 [facility] Comment on above: Performed By: #### C BC #### [facility] [address] [place] [address] Dr. Katrin Ceja ALT [Catalytic activity/Vol] 193 U/L Critically high 9-52 [facility] Comment on above: Performed By: #### C BC #### [facility] [address] [place] [address] Dr. Katrin Ceja Anion gap [Moles/Vol] 13.3 mmol/L Normal [facility] Comment on above: Performed By: #### C BC #### [facility] [address] [place] [address] Dr. Katrin Ceja AST [Catalytic activity/Vol] 115 U/L Critically high 14-36 [facility] Comment on above: Performed By: #### C BC #### [facility] [address] [place] [address] Dr. Katrin Ceja Bilirubin [Mass/Vol] 0.5 mg/dL Normal 0.2-1.3 [facility] Comment on above: Performed By: #### C BC #### [facility] [address] [place] [address] Dr. Katrin Ceja Calcium [Mass/Vol] 9.5 mg/dL Normal 8.4-10.2 [facility] Comment on above: Performed By: #### C BC #### [facility] [address] [place] [address] Dr. Katrin Ceja Chloride [Moles/Vol] 101 mmol/L Normal 98-107 [facility] Comment on above: Performed By: #### C BC #### [facility] [address] [place] [address] Dr. Katrin Ceja CO2 [Moles/Vol] 23.7 mmol/L Normal 22.0-30.0 [facility] Comment on above: Performed By: #### C BC #### [facility] [address] [place] [address] Dr. Katrin Ceja Creatinine [Mass/Vol] 0.83 mg/dL Normal 0.52-1.04 [facility] Comment on above: Performed By: #### C BC #### [facility] [address] [place] [address] Dr. Katrin Ceja EGFR-AF TRISTANIAN >60 Normal >=60 [facility] Comment on above: Performed By: #### C BC #### [facility] [address] [place] [address] Dr. Katrin Ceja EGFR-NON AF TRISTANIAN >60 Normal >=60 [facility] Comment on above: Performed By: #### C BC #### [facility] [address] [place] [address] Dr. Katrin Ceja Globulin (S) [Mass/Vol] 5.1 g/dL Normal [facility] Comment on above: Performed By: #### C BC #### [facility] [address] [place] [address] Dr. Katrin Ceja Glucose [Mass/Vol] 102 mg/dL Normal 74-106 [facility] Comment on above: Performed By: #### C BC #### [facility] [address] [place] [address] Dr. Katrin Ceja Potassium [Moles/Vol] 4.0 mmol/L Normal 3.4-5.0 [facility] Comment on above: Performed By: #### C BC #### [facility] [address] [place], [place] [address] Dr. Katrin Ceja Protein [Mass/Vol] 8.5 g/dL Critically high 6.1-8.[address] [facility] Comment on above: Performed By: #### C BC #### [facility] [address] [place], [place] [address] Dr. Katrin Ceja Sodium [Moles/Vol] 134 mmol/L Critically low 137-145 [facility] Comment on above: Performed By: #### C BC #### [facility] [address] [place], [place] [address] Dr. Katrin Ceja Urea nitrogen [Mass/Vol] 6.0 mg/dL Critically low 7.0-17.0 [facility] Comment on above: Performed By: #### C BC #### [facility] [address] [place], [place] [address] Dr. Katrin Ceja Urea nitrogen/Creatinine [Mass ratio] 7.2 mg/mg Normal [facility] Comment on above: Performed By: #### C BC #### [facility] [address] [place], [place] [address] Dr. Katrin Ceja XR CHEST 1 Von [...] by: HILDA GU Date: 2021-04-28 23:45 Normal [facility] Acetaminophen (Tylenol) Leve thi 03-22-2019 Acetaminophen [Mass/Vol] <10 Normal 10.0-30.0 [facility] Comment on above: Performed By: #### 1 4581-3, 41809-8, 50713-3, 18286-1q2, 08648-6, 43571-9 #### [facility] [address], [place] Alcohol (Ethanol) Levelon Ethanol [Mass/Vol] mg/dL Normal 0.00-0.00 [facility] Comment on above: Performed By: #### 1 4581-3, 93161-1, 47866-4, 45358-0x7, 90424-0, 05889-4 #### [facility] [address], [place] CBC with Differentialon Basophils (Bld) [#/Vol] 0.10 thou/mcL Normal 0.00-0.20 [facility] Comment on above: Performed By: #### 5 7021-8 #### [place] [address], [place] Basophils/100 WBC (Bld) 0.7 % Normal 0.0-2.0 [facility] Comment on above: Performed By: #### 5 7021-8 #### [address] Eosinophils (Bld) [#/Vol] 0.40 thou/mcL Normal 0.00-0.70 [facility] Comment on above: Performed By: #### 5 7021-8 #### [address] Eosinophils/100 WBC (Bld) 3.7 % Normal 0.0-7.0 [facility] Comment on above: Performed By: #### 5 7021-8 #### [address] Erythrocyte distribution width (RBC) [Entitic vol] 12.6 % Normal 11.0-14.8 [facility] Comment on above: Performed By: #### 5 7021-8 #### [place] [address], [place] Hematocrit (Bld) [Volume fraction] 38.5 % Normal 35.0-45.0 [facility] Comment on above: Performed By: #### 5 7021-8 #### [facility] [address] [place] [address] Hemoglobin (Bld) [Mass/Vol] 13.3 g/dL Normal 12.0-16.0 [facility] Comment on above: Performed By: #### 5 7021-8 #### [address] Lymphocytes (Bld) [#/Vol] 3.10 thou/mcL Normal 1.00-4.80 [facility] Comment on above: Performed By: #### 7021-8 #### [facility] [address] [place] [address] Lymphocytes/100 WBC (Bld) 30.1 % Normal 22.0-44.0 [facility] Comment on above: Performed By: #### 7021-8 #### [address] MCH (RBC) [Entitic mass] 30.8 Picograms Normal 27.0-34.0 [facility] Comment on above: Performed By: #### 70-8 #### [address] MCHC (RBC) [Mass/Vol] 34.7 g/dL Normal 32.0-36.0 [facility] Comment on above: Performed By: #### 7021-8 #### [address] MCV (RBC) [Entitic vol] 88.8 fL Normal 80.0-97.0 [facility] Comment on above: Performed By: #### 7021-8 #### [address] Monocytes (Bld) [#/Vol] 1.10 thou/mcL High 0.00-0.90 [facility] Comment on above: Performed By: #### 7021-8 #### [address] Monocytes/100 WBC (Bld) 10.4 % Normal 0.0-12.0 [facility] Comment on above: Performed By: #### 5 7021-8 #### [address] Neutrophils (Bld) [#/Vol] 5.60 thou/mcL Normal 1.80-7.70 [facility] Comment on above: Performed By: #### 5 7021-8 #### [facility] [address], [place] Neutrophils/100 WBC (Bld) 55.1 % Normal 40.0-70.0 [facility] Comment on above: Performed By: #### 5 7021-8 #### [facility] [address], [place] Platelet mean volume (Bld) [Entitic vol] 7.5 fL Normal 6.2-12.1 [facility] Comment on above: Performed By: #### 5 7021-8 #### [place] [address] [place] Platelets (Bld) [#/Vol] 280 thou/mcL Normal 142-424 [facility] Comment on above: Performed By: #### 5 7021-8 #### [facility] [address] [place] RBC (Bld) [#/Vol] 4.33 million/mcL Normal 3.80-5.10 [facility] Comment on above: Performed By: #### 5 7021-8 #### [place] [address] [place] WBC (Bld) [#/Vol] 10.2 thou/mcL Normal 4.6-10.2 [facility] Comment on above: Performed By: #### 5 7021-8 #### [facility] [address] [place] Comprehensive Metabolic Pane thi 03-22-2019 Albumin [Mass/Vol] 4.2 g/dL Normal 3.5-4.8 [facility] Comment on above: Performed By: #### 1 4581-3, 55052-2, 99510-0, 27998-9m8, 64819-6, 58560-3 #### [facility] [address] [place] ALP [Catalytic activity/Vol] 96 Units/L High 32-91 [facility] Comment on above: Performed By: #### 1 4581-3, 20716-1, 96314-5, 85994-9p9, 00009-4, 69840-3 #### [facility] [address] [place] ALT [Catalytic activity/Vol] 25 Units/L Normal 14-63 [facility] Comment on above: Performed By: #### 1 4581-3, 48585-0, 21910-4, 36462-1v8, 18671-0, 57907-2 #### [facility] [address] [place] Anion gap [Moles/Vol] 9.0 mmol/L Normal 6.0-18.0 [facility] Comment on above: Performed By: #### 1 4581-3, 75957-8, 70675-8, 63629-3w6, 11790-7, 14217-6 #### [facility] [address] [place] AST [Catalytic activity/Vol] 24 Units/L Normal 15-41 [facility] Comment on above: Performed By: #### 1 4581-3, 43302-6, 69876-2, 48543-3j7, 87006-9, 41804-0 #### [facility] [address] [place] Bilirubin [Mass/Vol] 0.5 mg/dL Normal 0.3-1.2 [facility] Comment on above: Performed By: #### 1 4581-3, 37501-9, 76880-4, 14519-0w4, 81667-0, 02202-7 #### [facility] [address] [place] Calcium [Mass/Vol] 8.9 mg/dL Normal 8.9-10.3 [facility] Comment on above: Performed By: #### 1 4581-3, 99453-4, 77100-2, 75223-5s2, 09786-2, 62309-2 #### [facility] [address] [place] Chloride [Moles/Vol] 107 mmol/L Normal 98-107 [facility] Comment on above: Performed By: #### 1 4581-3, 19975-8, 87805-5, 45813-8d0, 86063-1, 43967-4 #### [facility] [address] [place] CO2 [Moles/Vol] 23 mmol/L Normal 22-32 [facility] Comment on above: Performed By: #### 1 4581-3, 02498-3, 07518-5, 42720-7g1, 70740-0, 30524-9 #### [facility] [address] [place] Creatinine [Mass/Vol] 0.68 mg/dL Normal 0.60-1.30 [facility] Comment on above: Performed By: #### 1 4581-3, 47286-1, 83678-7, 24593-8h2, 55737-8, 76693-7 #### [facility] [address] [place] Glucose [Mass/Vol] 90 mg/dL Normal 70-99 [facility] Comment on above: Result Comment: U pdated ADA Reference Range A normal fasting glucose concentration is less than 100 mg/dL. An impaired fasting glucose concentration is 100-125 mg/dL. A provisional diagnosis of diabetes mellitus can be made when a fasting glucose concentration is greater than 125 mg/dL. Performed By: #### 1 4581-3, 49070-9, 81065-0, 08681-3c0, 87328-3, 74034-8 #### [facility] [address] [place] Potassium [Moles/Vol] 3.4 mmol/L Low 3.6-5.1 [facility] Comment on above: Performed By: #### 1 4581-3, 66553-9, 76367-6, 36779-1q7, 10614-8, 33719-9 #### [facility] [address] [place] Protein [Mass/Vol] 7.4 g/dL Normal 6.1-7.9 [facility] Comment on above: Performed By: #### 1 4581-3, 18227-1, 90612-5, 15312-4s8, 70712-6, 35833-0 #### [facility] [address] [place] Sodium [Moles/Vol] 139 mmol/L Normal 136-145 [facility] Comment on above: Performed By: #### 1 4581-3, 60395-8, 49769-9, 11021-2k9, 00689-3, 35250-4 #### [facility] [address] [place] Urea nitrogen (BldV) [Mass/Vol] 17 mg/dL Normal 8-20 [facility] Comment on above: Performed By: #### 1 4581-3, 87540-2, 33567-9, 84433-1i5, 11932-6, 56347-3 #### [facility] [address] [place] Drug Abuse Screen 8 Urineon 03-22-2019 Barbiturates Screen Ql (U) Negative Normal [facility] Comment on above: Performed By: #### 1 2286-1 #### [facility] [address] [place] Amphetamines Ql (U) Positive Abnormal [facility] Comment on above: Result Comment: Conf irmatory testing available upon request. Performed By: #### 1 2286-1 #### [facility] [address] [place] Benzodiazepines cutoff Screen (U) [Mass/Vol] Negative Normal [facility] Comment on above: Performed By: #### 1 2286-1 #### [facility] [address] [place] Cocaine Ql (U) Positive Abnormal [facility] Comment on above: Result Comment: Conf irmatory testing available upon request. Performed By: #### 1 2286-1 #### [facility] [address] [place] Interpretation and review of laboratory results Negative Normal [facility] Comment on above: Performed By: #### 1 2286-1 #### [facility] [address] [place] Methadone Screen Ql (U) Negative Normal NEGATIVE-N EGATIVE [facility] Comment on above: Performed By: #### 1 2286-1 #### [facility] [address] [place] Opiates Screen Ql (U) Negative Normal [facility] Comment on above: Result Comment: INTE [...] ONLY. Performed By: #### 1 2286-1 #### [address] Tetrahydrocannabinol Screen Ql (U) Positive Abnormal [facility] Comment on above: Result Comment: Conf irmatory testing available upon request. Performed By: #### 1 2286-1 #### [facility] [address] [place] [address] ED Pat Eduon 03-22-2019 ED Pat Edu [address] [address] Emergency Department Discharge Instructions JENNIFER [...] Servicios de Emergencia Name JENNIFER ENGLE MRN [facility])-[id number] [facility]# [id number] PLEASE READ THE FOLLOWING REGARDING YOUR MEDICATIONS [...] doses are changed, or new medications (including nkkk-jgt-dedgoqz products) are added. If you have any [...] UNTIL YOU TALK TO YOUR DOCTOR None [place] [address] [place], [place] [address] Emergency Department Discharge Instructions Name: JENNIFER ENGLE Current Date: 03/22/2019 19:32:22 : 1995 Primary Physician: Physician, No PCP We would like to thank you for choosing [facility] for your emergency medical needs. [...] and the health of those around you. [facility] offers many resources to help with smoking cessation. Call the [place] Tobacco Quit Line at 0-263-QJFSNOW ( ). High blood pressure: Your screening [...] deadly infections. Discuss this with your child's garden machinery mechanic, or Public Health Department. Your family practice doctor can determine if you need pneumonia or flu vaccine. The [facility] Department can be reached at . Substance Abuse Program: Concerns with addiction to alcohol, benzodiazepines (Ativan or Xanax) and Opiates (Heroin, Percocet, OxyContin, Methadone or Fentanyl)? [facility] offers an inpatient Substance Abuse Program to help treat the symptoms associated with medical detoxification of addictive substances. The new program offers care for non- adults (18 and older) looking to break the chain to addictive chemicals. The Substance Abuse Program is a voluntary inpatient admission and it starts with a pre-screening phone call to a social science manager. During the call, goals and objectives for recovery and how the patient will transition to outpatient care will be established. Please call [phone] to get help today. Domestic Violence: If you are a victim of domestic violence (physical, verbal, or emotional), you are not alone. Discuss this with your physician or a friend and call the [place] Domestic Violence Hotline or [place] Domestic Violence Hotline for assistance and support. [...] physician, call the Physician Referral Line at ([phone] 432-HXMH (3623). Suicide Hotline: Your mental and emotional well-being is important. If you are in a mental health crisis or are having thoughts of suicide, please call the nationwide suicide hotline, anytime day or night, at 3-093-191-TQRJ (5549). Community Imagery Analyst: You may be contacted by your local fire department for a follow up visit from a community buildings painter. The community buildings painter can help with a home safety check; follow up care, and general home care management. Pharmacy Information: Below is a list of 24 hour pharmacies that we are aware of. We suggest that you call the specific pharmacy for their hours before traveling to a location. Hours may vary on holidays. [facility] [place] [address] [place], [place] [phone] [address], [place] [address] [phone] [address], [place] [phone] [address], [place] [phone] [address], [place] [phone] [address], [place] [phone] [place] [address] [phone] Take all medications as directed. If you need prescription assistance, contact the following agencies: ?? Partnership for Prescription Assistance at or www.pparx.org ?? [place] at or www.EatingWellbestrx.org ?? www.[employer]Star[employer] is a site with many valuable coupons [...] Patient Signature Date Time Provider Signature Normal [facility] GFRaaon 03-22-2019 GFR/1.73 sq M predicted among blacks MDRD (S/P/Bld) [Vol rate/Area] mL/min/{1.73_m2} [facility] Comment on above: Result Comment: The MDRD equation has not been validated for those over 70 years, women, patients with serious co-morbid conditions, or with extremes of body size, muscle mass of nutritional status. Performed By: #### 1 4581-3, 25075-7, 48321-5, 01112-9z6, 48874-7, 63911-0 #### [address] GFRbbon 03-22-2019 GFR/1.73 sq M predicted among non-blacks MDRD (S/P/Bld) [Vol rate/Area] mL/min/{1.73_m2} [facility] Comment on above: Performed By: #### 1 4581-3, 00700-0, 36163-7, 60961-9l6, 44841-8, 58303-2 #### [facility] [address] [place] Test Urineon 03-22 HCG ( test) Ql (U) Negative Normal [facility] Comment on above: Performed By: #### 2 106-3 #### [facility], [address] [place], [place] Salicylate Levelon 9 Salicylates [Mass/Vol] mg/dL Normal 2.8-30.0 [facility] Comment on above: Performed By: #### 1 4581-3, 94491-7, 06526-0, 60723-9y4, 75107-0, 58184-6 #### [facility] [address] [place] Medication Managementon 10-0 Medication Management [id number] F Normal [facility] ED Clinical Summaryon 2017 ED Clinical Summary [facility] - Emergency [address] [place] [address] ed Clinical SummaryPERSON INFORMATIONName: JENNIFER ENGLE Age: 22 Years Sex: FEMALEDOB: [birth year] MRN: Acct#:Visit Reason: Dental pain; Dental pain; DENTAL PAIN Arrival: 04/11/18 20:21:00 Discharge: 04/11/18 20:55:00LOS: 000 00:34 Check In: 04/11/18 20:21:00 Checkout:04/11/18 20:55:00Address:[address] [facility] [address]PLA: SOLOMON WATTSPROSEKOU INFORMATIONProvider Role Assigned UnassAlistair Henderson MD ED [...] 04/11/18 20:29:00.Dental caries, dental painHistory of Present Jpayxok84-ochg-mzw white female presents to the emergency room [...] her poor dental state..Impression and PlanDiagnosisDental caries (OTU43-EG K02.9, Discharge, Medical)Pain, dental (UUA87-ME K08.89, Discharge, Medical)PlanCondition: Improved, Stable.Disposition: Discharged: to home.Prescriptions: Launch prescriptionsPharmacy:tra MADol 50 mg oral tablet (Prescribe): 50 mg = 1 tab(s), PO, q4hr, PRN: as needed for pain, 12 tab(s), 0 Refill(s)amoxicillin 500 mg oral capsule (Prescribe): 1,000 mg = 2 cap(s), PO, BID, 40 cap(s), 0 Refill(s).Patient was given the following educational materials: Dental Pain, Uuvz-bu-Wjzp, Dental Caries, Adult, Yuut-nv-Unvf, Dental Caries, Adult, Llsx-fp-Wqla, Dental Pain, Ibcg-bp-Nbhf.Follow up with: SOLOMON WATTS Within 3 to 5 days.Counseled: Patient, Regarding diagnosis, Regarding treatment plan, Regarding prescription, Patient indicated understanding of instructions.DISCHARGE INFORMATION:Discharge Disposition: HomeDischarge Location: HomePATIENT EDUCATION INFORMATIONInstructions: Dental Caries, Adult, Hprh-ob-Npwu; Dental Pain, Mxur-eq-ZddyGboqja-Up:Chelsey : Address: When:SOLOMON WATTS [facility] [place] [address] Business (1) Within 3 to 5 daysDIAGNOSIS:Dental caries; Dental pain; Pain, dentalPatient Understands: Yes - Patient/family/caregiver verbalizes understanding of instructions givenComment: [facility] - [facility]ician[facility] 2017 ED Note - Physician Patient: DOMINIC ENGLE : 22 years Sex: FEMALE : [birth year]Associated Diagnoses: Dental caries; Pain, dentalAuthor: Alistair Max MDBasic InformationTime seen: Date & time 04/11/18 20:29:00.Dental caries, dental painHistory of Present Pxqapbi35-amoi-fvh white female presents to the emergency room [...] her poor dental state..Impression and PlanDiagnosisDental caries (OPZ10-OA K02.9, Discharge, Medical)Pain, dental (LCN67-MH K08.89, Discharge, Medical)PlanCondition: Improved, Stable.Disposition: Discharged: to home.Prescriptions: Launch prescriptionsPharmacy:[facility] MADol 50 mg oral tablet (Prescribe): 50 mg = 1 tab(s), PO, q4hr, PRN: as needed for pain, 12 tab(s), 0 Refill(s)amoxicillin 500 mg oral capsule (Prescribe): 1,000 mg = 2 cap(s), PO, BID, 40 cap(s), 0 Refill(s).Patient was given the following educational materials: Dental Pain, Ftue-yl-Fubu, Dental Caries, Adult, Djoo-wb-Tncs, Dental Caries, Adult, Gbxg-ii-Wqcz, Dental Pain, Rtsx-kv-Durf.Follow up with: SOLOMON WATTS Within 3 to 5 days.Counseled: Patient, Regarding diagnosis, Regarding treatment plan, Regarding prescription, Patient indicated understanding of instructions.[Electronica lly Signed on: 04/11/2018 20:42 EDT] Alistair Salomon MD[Verified on: 04/11/2018 20:42 EDT] Alistair Salomon MD [facility] ED Patient Education Noteon 04-11-2018 ED Patient [...] mouth and teeth. This keeps them healthy.? [place] your teeth 2 times a day. Use toothpaste with fluoride in it.? Floss your teeth once a day.? If your dentist prescribed an antibiotic medicine to treat an infection, take it as told. Do not stop taking the antibiotic even if your condition gets better.? Keep all follow-up visits as told by your dentist. This is important. This includes all cleanings.Preventing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
--- NOTE | 2024-01-02 01:31 | ED.DENTAL1 ---
HPI - Dental/Oral General Chief complaint: Dental/Oral Stated complaint: DENTAL PAIN Time Seen by Provider: 01/02/24 00:18 Source: patient Mode of arrival: walk-in Limitations: no limitations History of Present Illness HPI Narrative: This 28-year-old female with a history of periodontal disease who states she is having all of her teeth extracted at the [facility] dentist in February presents for evaluation of left upper jaw pain. The patient states she felt a pop in the left upper jaw area and then tasted foul smelling drainage in her mouth and has pain in the left upper jaw that radiates into her left ear. She denies any fever. She is not having any difficulty speaking or swallowing. He also has a tender area just lateral to the nares on the left where she believes she is getting another abscess. Related Data Home Medications ?Medication ?Instructions ?Recorded ?Confirmed oxcarbazepine 300 mg tablet 300 mg PO BID 11/26/23 01/02/24 trazodone 50 mg tablet 50 mg PO .nightly PRN sleep 11/26/23 11/26/23 lorazepam 0.5 mg tablet mg 01/02/24 sumatriptan succinate 100 mg tablet mg PO 01/02/24 trazodone 150 mg tablet mg 01/02/24 Allergies Allergy/AdvReac Type Severity Reaction Status Date / Time Penicillins Allergy Mild Hives Verified 01/02/24 00:21 latex Allergy Unknown Verified 01/02/24 00:21 ibuprofen AdvReac Mild Verified 01/02/24 00:21 Sulfa (Sulfonamide AdvReac Mild Hives Verified 01/02/24 00:21 Antibiotics) Review of Systems ROS Status of ROS 10 or more systems reviewed and unremarkable except as noted in history and below [facility] Social History Smoking status: Former smoker Exam Narrative Exam Narrative: Vital signs and Nursing Notes reviewed: Patient is afebrile well, tachycardic with a pulse of 115, blood pressure is elevated at 126/98, she is not hypoxic with pulse ox of 96% on room air General: Awake, alert, oriented, uncomfortable, using an ice pack against her left jaw, no respiratory distress HEENT: Normocephalic atraumatic, mucous membranes are moist and pink, there are multiple decayed and decaying teeth. There is a severely decayed tooth in the left upper maxilla with some mild local gingival swelling, no periapical abscesses noted. There is no sign of necrotizing gingivitis. I do not appreciate any specific abscess. There is a tender nodule just lateral to the left nares on the maxilla that may also be a developing dental abscess. There is no swelling of the tongue, uvula or pharyngeal soft tissues. There is no pooling of secretions. Chest: Lungs are clear to auscultation with good air entry, there is no wheezing rhonchi or rales appreciated no accessory muscle use, patient is speaking in complete sentences-no chest wall tenderness to palpation CVS: Regular rate and rhythm S1-S2, no murmurs rubs or gallops, pulses are brisk and equal bilaterally Skin: Normal in appearance without rash,pallor, petechiae or purpura Neuro: No focal deficits Constitutional Vital Signs, click to edit/add: Last Vital Signs Temp 98.2 F 01/02/24 00:18 Pulse 115 H 01/02/24 00:18 Resp 18 01/02/24 00:18 BP 126/98 H 01/02/24 00:18 Pulse Ox 96 01/02/24 00:18 O2 Del Method Room Air 01/02/24 00:18 Course Vital Signs Vital signs: Vital Signs Temperature 98.2 F 01/02/24 00:18 Pulse Rate 115 H 01/02/24 00:18 Respiratory Rate 18 01/02/24 00:18 Blood Pressure 126/98 H 01/02/24 00:18 Pulse Oximetry 96 01/02/24 00:18 Oxygen Delivery Method Room Air 01/02/24 00:18 Temperature 98.2 F 01/02/24 00:18 Pulse Rate 115 H 01/02/24 00:18 Respiratory Rate 18 01/02/24 00:18 Blood Pressure 126/98 H 01/02/24 00:18 Pulse Oximetry 96 01/02/24 00:18 Oxygen Delivery Method Room Air 01/02/24 00:18 MDM - Dental/Oral MDM Narrative Medical decision making narrative: This 28-year-old female who has been seen in this emergency department several times for dental pain and abscesses and is scheduled to have all of her teeth extracted in February due to ongoing periodontal disease presents for evaluation of left upper maxillary pain. The patient states she felt a popping sensation in the left upper lateral jaw area and then had foul taste in her mouth and has increasing pain in the left maxilla that radiates into the left ear. Her left ear is normal in appearance. There are multiple decayed and decaying teeth in the mouth without evidence of necrotizing gingivitis or periapical abscess. She does have a severely decayed/decaying teeth in the left upper maxilla. She also has a tender nodule just lateral to the left nares which may be another developing dental abscess. She was given clindamycin during her last emergency department visit which she tolerated well. In the emergency department she was medicated with the first dose of clindamycin, dental analgesia and given 2 [place] to use as needed for pain. She was encouraged to follow-up closely with her dentist in [facility] for extraction in February. Discharge Plan Discharge Stand Alone Forms: Portal Instructions Chief Complaint: Dental/Oral Clinical Impression: Periodontal disease, Dental abscess Patient Disposition: Home, Self-Care Time of Disposition Decision: 01:28 Condition: Good Prescriptions / Home Meds: No Action trazodone 50 mg tablet 50 mg PO .nightly PRN (Reason: sleep) oxcarbazepine 300 mg tablet 300 mg PO BID sumatriptan succinate 100 mg tablet PO lorazepam 0.5 mg tablet trazodone 150 mg tablet Print Language: Divehi Instructions: Dental Abscess (ED), Periodontal Disease (DC) Referrals: Shaikh Langley MD [Primary Care Provider] - 1 week
[2024-01-02] MEDS: HYDROCODONE/ACET 5-325 MG TABLET 2 TAB PO (01:50)
[2024-01-02] MEDS: CLINDAMYCIN HCL 150 MG CAPSULE 300 MG PO (01:51)
[2024-01-02] MEDS: BENZOCAINE 30 ML, lidocaine HCL 15 ML MM (01:51)
[2024-01-02 02:11] VITALS: PULSE 88; O2SAT 98
== END 2024-01-02 02:12 | disposition home or self-care (01) ==
PROVIDERS: Emergency Provider Emergency Medicine; PCP Internal Medicine
DX: K05.219 Aggressive periodontitis, localized, unspecified severity (principal); K08.109 Complete loss of teeth, unspecified cause, unspecified class; Z87.891 Personal history of nicotine dependence
CPT/HCPCS: 99284

== ENCOUNTER 2024-04-24 22:00 | Emergency (ER) | payer MEDICAID, SELFPAY ==
[2024-04-24 22:03] VITALS: BP 126/104; PULSE 111; TEMP 37.2; O2SAT 99; BMI 74.7
--- OUTSIDE RECORDS SUMMARY | 2024-04-24 22:08 | XMS_ITS | CCD ---
Author Organization [facility] Care Team Providers Care Design Sales Consultant Name Role Phone Alistair Max Unavailable Unavailable Stalter, Alistair Unavailable Unavailable FURSOLOMON [...] Unavailable ALLIE, DR VALDIVIA Consulting Unavailable JENNIFER GRNAT Consulting Unavailable DANNI QUINONES Consulting Unavailable KARAN [...] NAVA Consulting Unavailable KARAN PALACIOS Attending Unavailable TIO PALACIOSYL Admitting Unavailable SUZANNE, KARAN Consulting Unavailable FAWWAD, [...] FAWWAD, COLÓN H Primary Care Unavailable CAPRI, GIN Consulting Unavailable FAWWAD, COLÓN H Primary Care [...] Chase Saldana Unavailable MIREILLE Saldana Attending Provider [phone] FAWWAD, COLÓN Primary Care Unavailable Key Patel Unavailable NON STAFF Primary Care Provider UnavailMD Gerald Del Castillo Attending Provider NON STAFF Primary Care Provider UnavailMD Gerald Del Castillo Attending Provider [phone] WILDA Perez-MUCKING MACHINE OPERATOR-C Kenia Benjamin Attending Provider MD Estefani Juan Jr Emergency Provider [facility] Attending Unavailable JOHN HADDAD Attending Unavailable MARY WIGGINS Attending Unavailable FAWWAD, COLÓN Attending Unavailable MAICOL LIU Attending Unavailable MARY WIGGINS Attending Unavailable KAMLA PRYOR Attending Unavailable MICHAEL PRYORER Referring Unavailable FAAsiaWAD, COLÓN Attending Unavailable MARY WIGGINS Attending Unavailable KENIA PEREZ Attending Unavailable PEREZ, KENIA Referring Unavailable FAWWAD, COLÓN Attending Unavailable PEREZKENIA Attending Unavailable ROYA, KAMLA Attending Unavailable ANA, KENIA Attending Unavailable Estefani Juan Jr Admitting Unavailable NON STAFF Primary Care Unavailable Estefani Juan Jr Attending Unavailable Gerald Wagner Attending Unavailab le Gerald Wagner Admitting Unavailab le NON STAFF Primary Care Unavailable [facility] Primary Care Unavailable [facility] Primary Care Unavailable MARTELL OTERO Attending Unavailable SHANNA MARTELL W Referring Unavailable [facility] Primary Care Unavailable MARTELL OTERO Attending Unavailable OTERO MARTELL W [facility] Unavailable MARTELL OTERO Attending Unavailable OTERO MARTELL W Referring Unavailable [facility] Primary Care Unavailable [facility] Primary Care Unavailable CHETAN HEBERT Attending Unavailable [facility] Primary Care Unavailable ALICE SHANE Attending Unavailable [facility] Primary Care Unavailable SCOTTHALEIGH RUBIO Attending Unavailable SCOTT, AHMAD Ana Maria Attending Unavailable SCOTT, AHMAD M Referring Unavailable [facility] Primary Care Unavailable [facility] Primary Care Unavailable ALICE SHANE Attending Unavailable [facility] Primary Care Unavailable YANIQUE GONZALES Attending Unavailable [facility] Primary Care Unavailable SCOTT, AHMAD M Attending Unavailable SCOTT, AHMAD M Attending Unavailable SCOTT, AHMAD M Referring Unavailable [facility] Primary Care Unavailable [facility] Primary Care Unavailable KENIA PEREZ Referring Unavailable FAWWASHAIKH Munoz Primary Care Unavailable KENIA PEREZ Referring [facility]available [facility] Primary Care Unavailable Allergies Allergy Classification Reported Allergen(s) Allergy Type Date of Onset Reaction(s) Facility (8 sources) ibuprofen; Translations: [ibuprofen] Drug Allergy 11-25-19 Nausea [facility] Repository (1 source) Latex; Translations: [Latex Allergy] Propensity to adverse reactions to drug (disorder) [facility] (1 source) Sulfonamides (Antibiotic); Translations: [sulfa drugs] Propensity to adverse reactions to drug (disorder) [facility] Repository (9 sources) Lactase Drug Allergy 03-05-20 vomiting [facility] (11 sources) Latex; Translations: [LATEX] Drug allergy 08-24-19 anaphylaxis [facility] (9 sources) Sulfacetamide Drug Allergy 03-05-20 [facility] (2 sources) Lactose Drug Allergy [facility] (2 sources) Latex Drug allergy (disorder) 12-30-19 13 [facility] (2 sources) Penicillin Drug Allergy [facility] (1 source) Propylthiouracil Drug Allergy [facility] (2 sources) Sulfonamides (Antibiotic) Drug allergy (disorder) 12-30-19 13 [facility] Repository (6 sources) Sulfonamides (Antibiotic); Translations: [Sulfa (Sulfonamide Antibiotics)] Allergy to substance 11-25-19 [facility] (1 source) Lactase Drug Allergy 03-18-20 [facility] Repository (1 source) Latex Drug allergy (disorder) 03-18-20 [facility] Repository (1 source) Sulfacetamide Drug Allergy 03-18-20 [facility] Repository (1 source) Adhesive agent; Translations: [ADHESIVE] Propensity to adverse reactions to drug (disorder) 01-09-20 [facility] (1 source) Clindamycin; Translations: [CLINDAMYCIN] Drug Allergy 06-07-20 [facility] (1 source) Desvenlafaxine; Translations: [DESVENLAFAXINE SUCCINATE] Drug Allergy 11-29-19 [facility] (1 source) Escitalopram; Translations: [ESCITALOPRAM OXALATE] Drug Allergy 09-21-19 19 [facility] (1 source) lamoTRIgine; Translations: [LAMOTRIGINE] Drug Allergy 01-13-20 18 [facility] (1 source) natural latex rubber; Translations: [LATEX, NATURAL RUBBER] Propensity to adverse reactions to drug (disorder) 04-24-20 [facility] (1 source) Penicillins; Translations: [PENICILLINS] Propensity to adverse reactions to drug (disorder) 12-05-19 [facility] Medications Current Medications Medication Drug Class(es) Dates Sig (Normalized) Sig (Original) [id number] 200 actuat albuterol 0.09 mg/actuat metered dose inhaler (6 sources) beta2-Adrenergic Agonist Start: 08-24-2018 Albuterol Sulfate (Proair Hfa) 90 mcg/actuation HFA aerosol inhaler Active August 24, 2018 1:00am take 2 puff(s) by in halation every four hours as needed Albuterol Sulfate HFA 108 (90 Base) MCG/ACT 2 puffs as needed Inhalation every 4 hrs Active ALPRAZolam 0.5 mg oral tablet (8 sources) Benzodiazepine Start: 03-05-2024 take 0.5 mg by mouth once daily Alprazolam Active 0.5 MG PO Daily March 05, 2024 12:00am Xanax Active azithromycin 250 mg oral tablet (2 sources) Macrolide Antimicrobial Azithromycin 250 MG 2 tablets on the first day, then 1 tablet daily for 4 days Orally Once a day for 5 day(s) Active Cetirizine / Pseudoephedrine (3 sources) alpha-Adrenergic Agonist, Histamine-1 Receptor Antagonist Start: 2023 take 1 tablet by mouth every twelve hours, then take 1 tablet by mouth every twelve hours Cetirizine-Pseudoephedr ine (Zyrtec-D) 5-120 mg tablet extended release 12 hr Active 1 TAB PO Every 12 hours 14 7 March 05, 2024 12:00am dextromethorphan hydrobromide 1.5 mg/ml / pyrilamine maleate 1.5 mg/ml oral solution (2 sources) Uncompetitive E-aylrqf-H-aspartate Receptor Antagonist, Sigma-1 Agonist [place] DM 7.5-7.5 MG/5ML 10 ml Orally every 6-8 hours as needed for 8 days Active erythromycin 20 mg/ml topical solution (1 source) Macrolide, Macrolide Antimicrobial Start: 2020 Erythromycin 2 % 2 drops left eye tid for 5 day(s) 2 drops to the left eye every 2 hours while awake today and tomorrow then 4 times a day for the next 3 or 4 days. Mar, Active methylPREDNISolone 4 mg oral tablet (6 sources) Corticosteroid Start: 2023 take 1 tablet by mouth once Methylprednisolone (Medrol (Fan)) 4 mg tablets,dose pack Active 0 PO per package directions March 05, 2024 12:00am PO PER PKG DIR for 6 days Start: 03-15-2023 Medrol 4 MG as directed Orally As Directed for 6 days Mar, Not-Taking methylPREDNISolo ne 4 MG as directed Orally Once a day for 6 days Active OLANZapine (1 source) Atypical Antipsychotic OLANZapine Active OXcarbazepine 300 mg oral tablet (3 sources) Anti-epileptic Agent Start: 03-05-20 24 take 300 mg by mouth once daily Oxcarbazepine Active 300 MG PO Daily March 05, 2024 12:00am paliperidone (4 sources) Atypical Antipsychotic Invega Active pantoprazole 40 mg delayed release oral tablet (1 source) Proton Pump Inhibitor take 1 tablet by mouth every twenty-four hours Protonix 40 MG 1 tablet Orally Once a day Active rOPINIRole (1 source) Nonergot Dopamine Agonist rOPINIRole HCl Activ e traMADol hydrochloride 50 mg oral tablet (1 source) Opioid Agonist take 1 tablet by mouth every twenty-four hours traMADol HCl 50 MG 1 tablet as needed Orally Once a day Active traZODone (4 sources) Serotonin Reuptake Inhibitor traZODone HCl Active verapamil hydrochloride 120 mg extended release oral tablet (3 sources) Calcium Channel Lillian Start: 03-05-20 24 take 120 mg by mouth once daily Verapamil Active 120 MG PO Daily March 05, 2024 12:00am Completed/Discontinued Medications Medication Drug Class(es) Dates Sig (Normalized) Sig (Original) busPIRone (6 sources) busPIRone HCl No t-Taking busPIRone HCl Ac tive cefTRIAXone (5 sources) Cephalosporin Antibacterial Start: 09-08-2019 Rocephin 500 mg Aug, 500 mg cephalexin 500 mg oral capsule (5 sources) Cephalosporin Antibacterial Start: 02-06-2021 take 1 [...] Mar, Not-Taking take 1 capsule by mo uth every twelve hours Clindamycin HCl 300 MG 1 capsule Orally every 12 hrs Active Doxepin (2 sources) Tricyclic Antidepressant Doxepin HCl Not-Taking Doxepin HCl Acti ve FLUoxetine (8 sources) Serotonin Reuptake Inhibitor Flu oxetine Not-Taking PROzac Not-Takin g Fluoxetine Activ e PROzac Active fluticasone propionate 0.05 mg/actuat metered dose nasal spray (5 sources) Corticosteroid Start: 03-15-2023 take 2 spray(s) nasal route once daily Fluticasone Propionate 50 MCG/ACT 2 sprays Nasally Once a day for 14 day(s) Mar, Not-Taking Start: 08-24-2018 End: 03-05-2024 Fluticasone Propionate Disco ntinued August 24, 2018 1:00am March 05, 2024 12:43pm ibuprofen 800 mg oral tablet (1 source) [...] hour as needed for pain. Mar, Not-Taking nitrofurantoin, macrocrystals 25 mg / nitrofurantoin, monohydrate 75 mg oral capsule (2 sources) Nitrofuran Antibacterial Start: 11-08-2022 take 1 capsule by mouth every twelve hours Macrobid 100 MG 1 capsule with food Orally every 12 hrs for 7 day(s) Oct, Not-Taking Omeprazole (6 sources) Proton Pump Inhibitor Omeprazole Not-Taking Omeprazole Activ e phenazopyridine hydrochloride 200 mg oral tablet (6 sources) Start: 11-08-2022 take 1 tablet by [...] Date Documented Da te Episodic/Chronic Anxiety disorders (7 sources) Severe anxiety (panic); Translations: [Panic disorder [episodic paroxysmal anxiety]] Onset: 11-25-2023 03-05-2024 Chronic Asthma (2 sources) Unspecified asthma, uncomplicated; Translations: [Asthma] Onset: 10-18-2021 Chronic Chronic obstructive pulmonary disease and bronchiectasis (2 sources) Bronchitis, not specified as acute or chronic Episodic Disorders of lipid metabolism (4 sources) Hyperlipidemia, unspecified; Translations: [HYPERLIPIDEMIA UNSPECIFIED] Onset: 12-18-2021 Chronic E Codes: Natural/environment (1 source) Overexertion from prolonged static or awkward postures, initial encounter; Translations: [OVEREXERT PROLNG STAT/AWK PST INIT] Onset: 03-12-2022 Episodic Epilepsy; convulsions (1 source) Unspecified convulsions; Translations: [Unspecified convulsions] Onset: 03-10-2024 Episodic Fluid and electrolyte disorders (5 sources) Hypokalemia; Translations: [HYPOKALEMIA] Onset: 10-24-2021 Episodic Genitourinary symptoms and ill-defined conditions (1 source) Dysuria Episodic Headache; including migraine (2 sources) Migraine with aura, not intractable, without status migrainosus; Translations: [Other migraine, not intractable, without status migrainosus] Onset: 12-11-2023 Chronic Headache; including migraine (2 sources) Headache; including migraine; Translations: [Headache, unspecified] Onset: 08-27-2023 Immunizations and screening for infectious disease (3 sources) Contact with or exposure to other viral diseases; Translations: [Exposure to 2019 novel coronavirus] 03-05-2024 Episodic Mood disorders (4 sources) Bipolar disorder, unspecified; Translations: [Major depressive disorder] Onset: 07-23-2021 03-05-2024 Chronic Nonspecific chest pain (1 source) Chest pain, unspecified; Translations: [Chest pain, unspecified] Onset: 03-18-2024 Episodic Other aftercare (1 source) Other jail (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 therapy; Translations: [OTH SHELTER CURRENT DRUG THERAPY] Onset: 03-23-2022 Episodic Other gastrointestinal disorders (4 sources) Constipation, unspecified; Translations: [CONSTIPATION UNSPECIFIED] Onset: 03-22-2022 Episodic Other nervous system disorders (3 sources) Difficulty in walking, not elsewhere classified; Translations: [DIFFICULTY IN WALKING NEC] Onset: 12-07-2021 Chronic Other nervous system disorders (1 source) Other chronic pain; Translations: [Other chronic pain] Onset: 03-10-2024 Chronic Other nervous system disorders (1 source) Paresthesia of skin; Translations: [Paresthesia of skin] Onset: 03-10-2024 Episodic Other non-traumatic joint disorders (4 sources) Pain in left ankle and joints of left foot; Translations: [PAIN IN LEFT ANKLE] Onset: 03-09-2022 Episodic Other skin disorders (1 source) Ingrowing nail Episodic Other upper respiratory infections (1 source) Sinusitis; Translations: [Chronic sinusitis, unspecified] Chronic Other upper respiratory infections (8 sources) Acute upper respiratory infection, unspecified; Translations: [Pain in throat] Onset: 03-27-2022 Resolved: 03-27-2022 Episodic Residual codes; unclassified (1 source) Acquired absence of other specified parts of digestive tract; Translations: [ACQ ABSENCE OTH PART DIGESTV TRACT] Onset: 03-23-2022 Episodic Substance-related disorders (10 sources) Opioid dependence; Translations: [Opioid dependence, uncomplicated] Onset: 03-23-2022 03-05-2024 Chronic Unclassified (3 sources) CONTACT W/AND (SUSP) EXPOS COVID-19; Translations: [CONTACT W/AND (SUSP) EXPOS COVID-19] Onset: 04-04-2022 Unclassified (1 source) COUGH, UNSPECIFIED; Translations: [COUGH, UNSPECIFIED] Onset: 02-09-2022 Unclassified (1 source) PERSONAL HISTORY OF COVID-19; Translations: [PERSONAL HISTORY OF COVID-19] Onset: 02-09-2022 Unclassified (1 source) Low back pain, unspecified; Translations: [Low back pain, unspecified] Onset: 03-10-2024 Unclassified (1 source) Rash Onset: 11-16-2023 Unclassified [...] Headache; including migraine (1 source) Headache Onset: 12-28-2023 Episodic Inflammation; infection of eye (except that [...] UP ARM INITIAL] Onset: 10-17-2021 Episodic Other injuries and conditions due to external causes (1 source) Foreign body in left ear, initial encounter; Translations: [Foreign body in left ear, initial encounter] Onset: 10-09-2023 Episodic Other injuries and conditions due to external causes (1 source) Foreign body in ear Onset: 10-09-2023 Episodic Other liver diseases (1 source) Abnormal levels of other serum enzymes; Translations: [ABNORMAL LEVELS OTHER SERUM ENZYMES] Onset: 12-22-2021 Episodic Other lower respiratory disease (5 sources) Shortness of breath; Translations: [SHORTNESS OF BREATH] Onset: 02-08-2022 Episodic Other lower respiratory disease (3 sources) Pleurodynia; Translations: [PLEURODYNIA] Onset: 09-26-2021 Episodic Other lower respiratory disease (1 source) Dyspnea, unspecified; Translations: [Dyspnea, unspecified] Onset: 11-25-2023 Episodic Other lower respiratory disease (1 source) Cough Onset: 11-25-2023 Episodic Other nervous system disorders (1 source) Other acute postprocedural pain; Translations: [OTHER ACUTE POSTPROCEDURAL PAIN] Onset: 05-03-2021 Episodic Other screening for suspected conditions (not mental disorders or infectious disease) (5 sources) Encounter for screening for diabetes mellitus; Translations: [Encounter for screening for lipoid disorders] Onset: 07-18-2021 Episodic Other skin disorders (1 source) Rash and other nonspecific skin eruption; Translations: [Rash and other nonspecific skin eruption] Onset: 11-16-2023 Episodic Pleurisy; pneumothorax; pulmonary collapse (1 source) Pleurisy; Translations: [PLEURISY] Onset: 09-27-2021 Episodic Sprains and strains (4 sources) Sprain of unspecified ligament of left ankle, initial encounter; Translations: [Unspecified sprain of right foot, initial encounter] Onset: 04-06-2022 Episodic Unclassified (3 sources) Contact with and [...] Test Name Value Interpretation Reference Range Facility ECG 12 lead ECGon 03-18-2024 ECG 12 lead ECG [facility] [place] [address] Electrocardiograph Report Signed Patient: Jennifer Engle MR#: [id number] 8 : 1995 Acct:[id number] Age/Sex: 28 / F ADM Date: 03/18/24 Loc: ER Room: Type: [facility] ER Attending Dr: Ordering Provider: Estefani Juan Jr, MD Date of Service: 03/18/2411/05/2154 ECG/ECG 12 lead ECG: Chest Pain Copies to: Test Reason : Blood Pressure : 141/85 mmHG Vent. Rate : 121 BPM Atrial Rate : 121 BPM P-R Int : 152 ms QRS Dur : 86 ms QT Int : 310 ms P-R-T Axes : 47 71 33 degrees QTcB Int : 440 ms Sinus tachycardia Otherwise normal ECG No previous ECGs available Confirmed by ESTEFANI JUAN MD ([id number]) on 03/20/2024 5:58:53 AM Referred By: Electronically Signed By: ESTEFANI JUAN MD Transcribed By: MUS Signed By Estefani Juan Jr, MD [id number] Normal [facility] Influenza virus B Ag [Presen ce] in Upper respiratory specimen by Rapid immunoassayon 03-05-2024 FLUBV Ag IA.rapid Ql (Nph) Negative [facility] No Panel Informationon 03-05 Influenza Type A (Rapid) Negative [facility] POC SARS CoV-2 Antigen Negative [facility] Troponin I.cardiac High sens itivity method [Mass/Vol]on 02-14-2024 1 HOUR TROP I, HIGH SENSITIVITY 3 ng/L Normal <16 [facility] Comment on above: Performed By: #### 8 [id number] ####[facility] ([id number])[address] [place] [address] 62090 CBC AND AUTO DIFFon 02-13-20 24 ABSOLUTE BASOPHIL 0.0 X10E9/L Normal 0.0-0.2 [facility] Comment on above: Performed By: #### 2 106-3 #### [facility] ([id number]) [address] [place] [address] 25238 ABSOLUTE NEUTROPHIL 7.5 X10E9/L High 1.5-6.6 [facility] Comment on above: Performed By: #### 2 106-3 #### [facility] ([id number]) [address] [place] [address] 48508 Basophils/100 WBC (Bld) 0.3 % Normal [facility] Comment on above: Performed By: #### 2 106-3 #### [facility] ([id number]) [address] [place] [address] 06048 Eosinophils (Bld) [#/Vol] 0.1 10*3/uL Normal 0.0-0.4 [facility] Comment on above: Performed By: #### 2 106-3 #### [facility] ([id number]) [address] [place] [address] 84068 Eosinophils/100 WBC (Bld) 0.8 % Normal [facility] Comment on above: Performed By: #### 2 106-3 #### [facility] ([id number]) [address] [place] [address] 09235 Erythrocyte distribution width (RBC) [Ratio] 13.7 % Normal 11.5-15.0 [facility] Comment on above: Performed By: #### 2 106-3 #### [facility] ([id number]) [address] [place] [address] 97671 Hematocrit (Bld) [Volume fraction] 35.8 % Normal 35-47 [facility] Comment on above: Performed By: #### 2 106-3 #### [facility] ([id number]) [address] [place] [address] 74322 Hemoglobin (Bld) [Mass/Vol] 12.5 g/dL Normal 11.7-15.5 [facility] Comment on above: Performed By: #### 2 106-3 #### [facility] ([id number]) [address] [place] [address] 07493 Lymphocytes (Bld) [#/Vol] 3.4 10*3/uL Normal 1.0-3.5 [facility] Comment on above: Performed By: #### 2 106-3 #### [facility] ([id number]) [address] [place] [address] 93243 Lymphocytes/100 WBC (Bld) 29.4 % Normal [facility] Comment on above: Performed By: #### 2 106-3 #### [facility] ([id number]) [address] [place] [address] 42110 MCH (RBC) [Entitic mass] 29.8 pg Normal 27-34 [facility] Comment on above: Performed By: #### 2 106-3 #### [facility] ([id number]) [address] [place] [address] 72488 MCHC (RBC) [Mass/Vol] 35.0 g/dL Normal 32-36 [facility] Comment on above: Performed By: #### 2 106-3 #### [facility] ([id number]) [address] [place] [address] 29664 MCV (RBC) [Entitic vol] 85 fL Normal 80-100 [facility] Comment on above: Performed By: #### 2 106-3 #### [facility] ([id number]) [address] [place] [address] 05865 Monocytes (Bld) [#/Vol] 0.6 10*3/uL Normal 0-0.9 [facility] Comment on above: Performed By: #### 2 106-3 #### [facility] ([id number]) [address] [place] [address] 93878 Monocytes/100 WBC (Bld) 4.8 % Normal [facility] Comment on above: Performed By: #### 2 106-3 #### [facility] ([id number]) [address] [place] [address] 11499 Neutrophils/100 WBC (Bld) 64.7 % Normal [facility] Comment on above: Performed By: #### 2 106-3 #### [facility] ([id number]) [address] [place] [address] 64045 Platelet mean volume (Bld) [Entitic vol] 6.6 fL Low 7-12 [facility] Comment on above: Performed By: #### 2 106-3 #### [facility] ([id number]) [address] [place] [address] 26868 Platelets (Bld) [#/Vol] 377 10*3/uL Normal 150-450 [facility] Comment on above: Performed By: #### 2 106-3 #### [facility] ([id number]) [address] [place] [address] 73933 RBC COUNT 4.21 X10E12/L Normal 3.80-5.20 [facility] Comment on above: Performed By: #### 2 106-3 #### [facility] ([id number]) [address] [place] [address] 54634 WBC (Bld) [#/Vol] 11.6 10*3/uL High 4.0-11.0 [facility] Comment on above: Performed By: #### 2 106-3 #### [facility] ([id number]) [address] [place] [address] 21948 COMPREHENSIVE METABOLIC PANE Kit 02-13-2024 Albumin [Mass/Vol] 4.1 g/dL Normal 3.2-5.3 [facility] Comment on above: Performed By: #### 2 106-3 #### [facility] ([id number]) [address] [place] [address] 76971 ALP [Catalytic activity/Vol] 158 U/L High 39-130 [facility] Comment on above: Performed By: #### 2 106-3 #### [facility] ([id number]) [address] [place] [address] 65038 ALT [Catalytic activity/Vol] 46 U/L High 0-31 [facility] Comment on above: Performed By: #### 2 106-3 #### [facility] ([id number]) [address] [place] [address] 48141 Anion gap [Moles/Vol] 7 mmol/L Normal 5-15 [facility] Comment on above: Performed By: #### 2 106-3 #### [facility] ([id number]) [address] [place] [address] 42467 AST [Catalytic activity/Vol] 28 U/L Normal 0-41 [facility] Comment on above: Performed By: #### 2 106-3 #### [facility] ([id number]) [address] [place] [address] 24105 Bilirubin [Mass/Vol] 0.5 mg/dL Normal 0.3-1.2 [facility] Comment on above: Performed By: #### 2 106-3 #### [facility] ([id number]) [address] [place] [address] 26558 Calcium [Mass/Vol] 9.0 mg/dL Normal 8.5-10.5 [facility] Comment on above: Performed By: #### 2 106-3 #### [facility] ([id number]) [address] [place] [address] 50707 Chloride [Moles/Vol] 106 mmol/L Normal 98-109 [facility] Comment on above: Performed By: #### 2 106-3 #### [facility] ([id number]) [address] [place] [address] 96834 CO2 [Moles/Vol] 24 mmol/L Normal 22-32 [facility] Comment on above: Performed By: #### 2 106-3 #### [facility] ([id number]) [address] [place] [address] 74999 Creatinine [Mass/Vol] 0.63 mg/dL Normal 0.40-1.00 [facility] Comment on above: Result Comment: METH OD TRACEABLE TO IDMS STANDARD Performed By: #### 2 106-3 #### [facility] ([id number]) [address] [place] [address] 82241 eGFR (CKD-EPI) NON-RACE DEPENDENT >90 Normal >59 [facility] Comment on above: Result Comment: Reported eGFR is based on the CKD-EPI 2021 equation that does not use a race coefficient. Performed By: #### 2 106-3 #### [facility] ([id number]) [address] [place] [address] 12073 Glucose [Mass/Vol] 98 mg/dL Normal 65-99 [facility] Comment on above: Performed By: #### 2 106-3 #### [facility] ([id number]) [address] [place] [address] 73645 Potassium [Moles/Vol] 3.1 mmol/L Low 3.5-5.0 [facility] Comment on above: Performed By: #### 2 106-3 #### [facility] ([id number]) [address] [place] [address] 45971 Protein [Mass/Vol] 8.0 g/dL Normal 6.0-8.0 [facility] Comment on above: Performed By: #### 2 106-3 #### [facility] ([id number]) [address] [place] [address] 00235 Sodium [Moles/Vol] 137 mmol/L Normal 134-146 [facility] Comment on above: Performed By: #### 2 106-3 #### [facility] ([id number]) [address] [place] [address] 76184 Urea nitrogen [Mass/Vol] 7 mg/dL Normal 5-23 [facility] Comment on above: Performed By: #### 2 106-3 #### [facility] ([id number]) [address] [place] [address] 05180 HCG ( test) Ql (U)o n 02-13-2024 Beta HCG ( test) Ql (U) Negative Normal NEG [facility] Comment on above: Performed By: #### 2 106-3 #### [facility] ([id number]) [address] [place] [address] 13387 MAGNESIUMon 02-13-2024 Magnesium [Mass/Vol] 1.9 mg/dL Normal 1.8-2.6 [facility] Comment on above: Performed By: #### 2 106-3 #### [facility] ([id number]) [address] [place] [address] 15450 Troponin I.cardiac High sens itivity method [Mass/Vol]on 02-13-2024 TROPONIN I, HIGH SENSITIVITY 3 ng/L Normal <16 [facility] Comment on above: Performed By: #### 2 106-3 #### [facility] ([id number]) [address] [place] [address] 26300 URN MACROSCOPIC NURon 2023 BILIRUBIN BETHANY Negative Normal NEG [facility] Comment on above: Performed By: #### 2 106-3 #### [facility] ([id number]) [address] [place] [address] 69314 BLOOD/HGB BETHANY Negative Normal NEG [facility] Comment on above: Performed By: #### 2 106-3 #### [facility] ([id number]) [address] [place] [address] 72115 GLUCOSE BETHANY Negative Normal NEG [facility] Comment on above: Performed By: #### 2 106-3 #### [facility] ([id number]) [address] [place] [address] 27122 KETONES BETHANY Negative Normal NEG [facility] Comment on above: Performed By: #### 2 106-3 #### [facility] ([id number]) [address] [place] [address] [place] [address] LEUKOCYTE ESTERASE BETHANY Negative Normal NEG [facility] Comment on above: Performed By: #### 2 106-3 #### [facility] ([id number]) [address] [place] [address] [place] [address] NITRITE BETHANY Negative Normal NEG [facility] Comment on above: Performed By: #### 2 106-3 #### [facility] ([id number]) [address] [place] [address] 81313 PH BETHANY 6.5 Normal 5.0-8.5 [facility] Comment on above: Performed By: #### 2 106-3 #### [facility] ([id number]) [address] [place] [address] [place] [address] PROTEIN BETHANY Negative Normal NEG [facility] Comment on above: Performed By: #### 2 106-3 #### [facility] ([id number]) [address] [place] [address] 51714 SPECIFIC GRAVITY BETHANY 1.015 Normal 1.003-1 .03 5 [facility] Comment on above: Performed By: #### 2 106-3 #### [facility] ([id number]) [address] [place] [address] 94932 UROBILINOGEN BETHANY 0.2 eu/dL Normal <1.1 [facility] Comment on above: Performed By: #### 2 106-3 #### [facility] ([id number]) [address] [place] [address] 20965 XR CHEST 2 VWSon 02-13-2024 XR CHEST 2 VWS XR CHEST 2 VWS Chest 2 views History: Difficulty breathing SOB Comparison: 11/25/2023 Findings: Chest 2 views. Stable cardiomediastinal silhouette. No focal opacity, effusion or pneumothorax. Impression: No evident acute cardiopulmonary process. Finalized by Jennifer Howe MD on 02/13/2024 11:22 PM Normal [facility] BASIC METABOLIC PANLon 12-28 Anion gap [Moles/Vol] 4 mmol/L Low 5-15 [facility] Comment on above: Performed By: #### 2 106-3 #### [facility] ([id number]) [address] [place] [address] 27145 Calcium [Mass/Vol] 8.4 mg/dL Low 8.5-10.5 [facility] Comment on above: Performed By: #### 2 106-3 #### [facility] ([id number]) [address] [place] [address] 93798 Chloride [Moles/Vol] 106 mmol/L Normal 98-109 [facility] Comment on above: Performed By: #### 2 106-3 #### [facility] ([id number]) [address] [place] [address] 70367 CO2 [Moles/Vol] 24 mmol/L Normal 22-32 [facility] Comment on above: Performed By: #### 2 106-3 #### [facility] ([id number]) [address] [place] [address] 78843 Creatinine [Mass/Vol] 0.65 mg/dL Normal 0.40-1.00 [facility] Comment on above: Result Comment: METH OD TRACEABLE TO IDMS STANDARD Performed By: #### 2 106-3 #### [facility] ([id number]) [address] [place] [address] 14168 eGFR (CKD-EPI) NON-RACE DEPENDENT >90 Normal >59 [facility] Comment on above: Result Comment: Reported eGFR is based on the CKD-EPI 2020 equation that does not use a race coefficient. Performed By: #### 2 106-3 #### [facility] ([id number]) [address] [place] [address] 86994 Glucose [Mass/Vol] 101 mg/dL High 65-99 [facility] Comment on above: Performed By: #### 2 106-3 #### [facility] ([id number]) [address] [place] [address] 82878 Potassium [Moles/Vol] 3.8 mmol/L Normal 3.5-5.0 [facility] Comment on above: Performed By: #### 2 106-3 #### [facility] ([id number]) [address] [place] [address] 44100 Sodium [Moles/Vol] 134 mmol/L Normal 134-146 [facility] Comment on above: Performed By: #### 2 106-3 #### [facility] ([id number]) [address] [place] [address] 49978 Urea nitrogen [Mass/Vol] 12 mg/dL Normal 5-23 [facility] Comment on above: Performed By: #### 2 106-3 #### [facility] ([id number]) [address] [place] [address] 21912 CBC AND AUTO DIFFon 12-29-19 24 ABSOLUTE BASOPHIL 0.1 X10E9/L Normal 0.0-0.2 [facility] Comment on above: Performed By: #### 2 106-3 #### [facility] ([id number]) [address] [place] [address] 04424 ABSOLUTE NEUTROPHIL 6.1 X10E9/L Normal 1.5-6.6 [facility] Comment on above: Performed By: #### 2 106-3 #### [facility] ([id number]) [address] [place] [address] 41592 Basophils/100 WBC (Bld) 0.7 % Normal [facility] Comment on above: Performed By: #### 2 106-3 #### [facility] ([id number]) [address] [place] [address] 22586 Eosinophils (Bld) [#/Vol] 0.2 10*3/uL Normal 0.0-0.4 [facility] Comment on above: Performed By: #### 2 106-3 #### [facility] ([id number]) [address] [place] [address] 70195 Eosinophils/100 WBC (Bld) 1.9 % Normal [facility] Comment on above: Performed By: #### 2 106-3 #### [facility] ([id number]) [address] [place] [address] 85444 Erythrocyte distribution width (RBC) [Ratio] 13.6 % Normal 11.5-15.0 [facility] Comment on above: Performed By: #### 2 106-3 #### [facility] ([id number]) [address] [place] [address] 76165 Hematocrit (Bld) [Volume fraction] 33.7 % Low 35-47 [facility] Comment on above: Performed By: #### 2 106-3 #### [facility] ([id number]) [address] [place] [address] 25996 Hemoglobin (Bld) [Mass/Vol] 11.7 g/dL Normal 11.7-15.5 [facility] Comment on above: Performed By: #### 2 106-3 #### [facility] ([id number]) [address] [place] [address] 57212 Lymphocytes (Bld) [#/Vol] 3.0 10*3/uL Normal 1.0-3.5 [facility] Comment on above: Performed By: #### 2 106-3 #### [facility] ([id number]) [address] [place] [address] 78749 Lymphocytes/100 WBC (Bld) 29.8 % Normal [facility] Comment on above: Performed By: #### 2 106-3 #### [facility] ([id number]) [address] [place] [address] 26264 MCH (RBC) [Entitic mass] 29.2 pg Normal 27-34 [facility] Comment on above: Performed By: #### 2 106-3 #### [facility] ([id number]) [address] [place] [address] 86487 MCHC (RBC) [Mass/Vol] 34.6 g/dL Normal 32-36 [facility] Comment on above: Performed By: #### 2 106-3 #### [facility] ([id number]) [address] [place] [address] 53453 MCV (RBC) [Entitic vol] 84 fL Normal 80-100 [facility] Comment on above: Performed By: #### 2 106-3 #### [facility] ([id number]) [address] [place] [address] 35634 Monocytes (Bld) [#/Vol] 0.6 10*3/uL Normal 0-0.9 [facility] Comment on above: Performed By: #### 2 106-3 #### [facility] ([id number]) [address] [place] [address] 66507 Monocytes/100 WBC (Bld) 6.5 % Normal [facility] Comment on above: Performed By: #### 2 106-3 #### [facility] ([id number]) [address] [place] [address] 62057 Neutrophils/100 WBC (Bld) 61.1 % Normal [facility] Comment on above: Performed By: #### 2 106-3 #### [facility] ([id number]) [address] [place] [address] 03452 Platelet mean volume (Bld) [Entitic vol] 6.8 fL Low 7-12 [facility] Comment on above: Performed By: #### 2 106-3 #### [facility] ([id number]) [address] [place] [address] 29244 Platelets (Bld) [#/Vol] 307 10*3/uL Normal 150-450 [facility] Comment on above: Performed By: #### 2 106-3 #### [facility] ([id number]) [address] [place] [address] 76019 RBC COUNT 4.00 X10E12/L Normal 3.80-5.20 [facility] Comment on above: Performed By: #### 2 106-3 #### [facility] ([id number]) [address] [place] [address] 45113 WBC (Bld) [#/Vol] 10.0 10*3/uL Normal 4.0-11.0 [facility] Comment on above: Performed By: #### 2 106-3 #### [facility] ([id number]) [address] [place] [address] 56299 MAGNESIUMon 12-29-2023 Magnesium [Mass/Vol] 2.0 mg/dL Normal 1.8-2.6 [facility] Comment on above: Performed By: #### 2 106-3 #### [facility] ([id number]) [address] [place] [address] 94026 HCG ( test) Ql (U)o n 12-11-2023 Beta HCG ( test) Ql (U) Negative Normal [facility] Comment on above: Performed By: #### 2 106-3 #### [facility] ([id number]) [address] [place] [address] 75648 URN MACROSCOPIC NURon 2023 BILIRUBIN BETHANY Negative Normal [facility]G [facility] Comment on above: Performed By: #### N UM #### [facility] ([id number]) [address] [place] [address] 58532 BLOOD/HGB BETHAYN Negative Normal [facility]G [facility] Comment on above: Performed By: #### N UM #### [facility] ([id number]) [address] [place] [address] 14679 GLUCOSE BETHANY Negative Normal [facility] Comment on above: Performed By: #### N UM #### [facility] ([id number]) [address] [place] [address] [place] [address] KETONES BETHANY Negative Normal [facility] Comment on above: Performed By: #### N UM #### [facility] ([id number]) [address] [place] [address] [place] [address] LEUKOCYTE ESTERASE BETHANY Negative Normal NEG [facility] Comment on above: Performed By: #### N UM #### [facility] ([id number]) [address] [place] [address] [place] [address] NITRITE BETHANY Negative Normal [facility] Comment on above: Performed By: #### N UM #### [facility] ([id number]) [address] [place] [address] 47958 PH BETHANY 6.0 Normal 5.0-8.5 [facility] Comment on above: Performed By: #### N UM #### [facility] ([id number]) [address] [place] [address] 14316 PROTEIN BETHANY Negative Normal [facility] Comment on above: Performed By: #### N UM #### [facility] ([id number]) [address] [place] [address] 70078 SPECIFIC GRAVITY BETHANY 1.015 Normal 1.003-1 .03 5 [facility] Comment on above: Performed By: #### N UM #### [facility] ([id number]) [address] [place] [address] 26010 UROBILINOGEN BETHANY 0.2 eu/dL Normal <1.1 [facility] Comment on above: Performed By: #### N UM #### [facility] ([id number]) [address] [place] [address] 38112 BASIC METABOLIC PANLon 11-24 Anion gap [Moles/Vol] 13 mmol/L Normal 5-15 [facility] Comment on above: Performed By: #### B MP #### [facility] ([id number]) [address] [place] [address] 32024 Calcium [Mass/Vol] 9.0 mg/dL Normal 8.5-10.5 [facility] Comment on above: Performed By: #### B MP #### [facility] ([id number]) [address] [place] [address] 92008 Chloride [Moles/Vol] 103 mmol/L Normal 98-109 [facility] Comment on above: Performed By: #### B MP #### [facility] ([id number]) [address] [place] [address] 12588 CO2 [Moles/Vol] 20 mmol/L Low 22-32 [facility] Comment on above: Performed By: #### B MP #### [facility] ([id number]) [address] [place] [address] 87077 Creatinine [Mass/Vol] 0.69 mg/dL Normal 0.40-1.00 [facility] Comment on above: Result Comment: METH OD TRACEABLE TO IDMS STANDARD Performed By: #### B MP #### [facility] ([id number]) [address] [place] [address] 33468 eGFR (CKD-EPI) NON-RACE DEPENDENT >90 Normal >59 [facility] Comment on above: Result Comment: Reported eGFR is based on the CKD-EPI 2020 equation that does not use a race coefficient. Performed By: #### B MP #### [facility] ([id number]) [address] [place] [address] 65073 Glucose [Mass/Vol] 95 mg/dL Normal 65-99 [facility] Comment on above: Performed By: #### B MP #### [facility] ([id number]) [address] [place] [address] 72574 Potassium [Moles/Vol] 2.9 mmol/L Low 3.5-5.0 [facility] Comment on above: Performed By: #### B MP #### [facility] ([id number]) [address] [place] [address] 96175 Sodium [Moles/Vol] 136 mmol/L Normal 134-146 [facility] Comment on above: Performed By: #### B MP #### [facility] ([id number]) [address] [place] [address] 12319 Urea nitrogen [Mass/Vol] 7 mg/dL Normal 5-23 [facility] Comment on above: Performed By: #### B #### [facility] ([id number]) [address] [facility] [place] [address] SARS/FLU A+B/RSV by NAAT/Mol ecularon 11-25-2023 SARS/FLU [...] operators who are performing tests using either [employer] or [employer] systems and is limited to laboratories that [...] repeat. Fact Sheet for Healthcare Providers: https://www.fda.gov/media /532383/download Fact Sheet for Patients: https://www.fda.gov/media /880570/download Normal [facility] Comment on above: Performed By: #### C OVFLR #### [facility] ([id number]) [address] [facility] [place] [address] XR FOOT LT MIN 3 VWSon 09-21 [...] Loya MD on 09/22/2023 12:07 AM Normal [facility] XR SPINE LUMBAR 2 OR 3 VWSon [...] Loya MD on 09/22/2023 12:10 AM Normal [facility] XR TIBIA FIBULA LT MIN 2 VWS [...] Loya MD on 09/22/2023 12:09 AM Normal [facility] HCG ( test) Ql (U)o n 09-21-2023 Beta HCG ( test) Ql (U) Negative Normal [facility] Comment on above: Performed By: #### 2 106-3 #### [facility] ([id number]) [address] [facility] [place] [address] SARS/FLU A+B/RSV by NAAT/Mol ecularon 07-09-2023 SARS/FLU [...] operators who are performing tests using either [employer] or [employer] systems and is limited to laboratories that [...] repeat. Fact Sheet for Healthcare Providers: https://www.fda.gov/media /397592/download Fact Sheet for Patients: https://www.fda.gov/media /652631/download Normal [facility] Comment on above: Performed By: #### C OVFLR #### [facility] ([id number]) [address] [place] [address] Provider Letteron 02-25-2023 Provider Letter (Inserted Image. Swapna ble to display) February 25, 2023 JENNIFER CARMEN [address] [place] [address] : 1995 Dear Jennifer , We have been trying to reach you with no success. It is important that you return our call regarding your referral to our office by Jennifer upon receiving this letter. Also, at the time of your call, please provide us with your current information. Thank you for your prompt attention to this matter. Sincerely, [facility] [phone] Normal [facility] Physician Referralon 023 Physician Referral [phone] [id number] Normal [facility] Urinalysis - AUTOMATEDon Appearance (U) cloudy NOW! [employer] Other Bilirubin Ql (U) Negative [employer] Other Color (U) yellow [employer] Other Glucose Ql (U) Negative [employer] Other Hemoglobin Ql (U) Trace-intact [employer] Other Ketones Ql (U) Negative [employer] Other Leukocyte esterase Test strip Ql (U) Trace [employer] Other Nitrite Ql (U) Negative [employer] Other pH (U) 6.0 [pH] [employer] Other Protein Ql (U) Negative [employer] Other Specific gravity (U) [Rel density] <=1.005 [employer] Other Urobilinogen (U) [Mass/Vol] 0.2 mg/dL [employer] Other Urinalysis - AUTOMATED No rt [employer] Other Quick Strepon 04-26-2022 S. pyogenes Org specific cx Ql (Throat) Negative [employer] Other Quick Strep [employer] Information Other SARS-CoV-2 (COVID-19) RNA NA A+probe Ql (Resp)on 04-23-2022 SARS-CoV-2 (COVID-19) RNA EMMANUELLE+probe Ql (Unsp spec) Negative [employer] Other Covid-19 PCR (CVDTB)on 03-16 SARS-CoV-2 (COVID-19) RNA EMMANUELLE+probe Ql (Unsp spec) Not detected Normal NOT DETECTED [facility] Comment on above: Result Comment: This test is not yet approved or cleared by the [place] FDA. When there are no FDA-approved or cleared tests available, and other criteria are met, FDA can make tests available under an emergency access mechanism called an Emergency Use Authorization (EUA). The EUA for this test is supported by the [place] of Health and Human Service's (HHS's) declaration [...] SARS-CoV-2. Performed By: #### C BC #### [facility] [address] [place] [address] Dr. Katrin Ceja SARS-CoV-2 (COVID-19) RNA NA A+probe Ql (Resp)on 03-27-2022 SARS-CoV-2 (COVID-19) RNA EMMANUELLE+probe Ql (Unsp spec) Negative [employer] Other CBC AUTO DIFFon 03-22-2022 BASO # 0.0 103/ul Normal 0.0-0.1 [facility] Comment on above: Performed By: #### L IPID, CMP #### [facility] [address] [place] [address] Dr. Katrin Ceja Basophils/100 WBC (Bld) 0.3 % Normal 0.2-2.0 [facility] Comment on above: Performed By: #### L IPID, CMP #### [facility] [address] [place] [address] Dr. Katrin Ceja EO # 0.2 103/ul Normal 0.0-0.7 [facility] Comment on above: Performed By: #### L IPID, CMP #### [facility] [address] [place] [address] Dr. Katrin Ceja Eosinophils/100 WBC (Bld) 2.2 % Normal 0.9-7.0 [facility] Comment on above: Performed By: #### L IPID, CMP #### [facility] [address] [place] [address] Dr. Katrin Ceja Erythrocyte distribution width (RBC) [Ratio] 11.9 % Normal 11.0-15.0 [facility] Comment on above: Performed By: #### L IPID, CMP #### [facility] [address] [place] [address] Dr. Katrin Ceja Hematocrit (Bld) [Volume fraction] 36.4 % Normal 36.0-48.0 [facility] Comment on above: Performed By: #### L IPID, CMP #### [facility] [address] [place] [address] Dr. Katrin Ceja Hemoglobin (Bld) [Mass/Vol] 12.6 g/dL Normal 12.0-16.0 [facility] Comment on above: Performed By: #### L IPID, CMP #### [facility] [address] [place] [address] Dr. Katrin Ceja IG # 0.03 10e3/ul Normal 0.00-0.03 [facility] Comment on above: Performed By: #### L IPID, CMP #### [facility] [address] [place] [address] Dr. Katrin Ceja IG % 0.3 % Normal 0.0-0.5 [facility] Comment on above: Performed By: #### L IPID, CMP #### [facility] [address] [place] [address] Dr. Katrin Ceja LYMPH # 3.5 103/ul Normal 1.2-3.8 [facility] Comment on above: Performed By: #### L IPID, CMP #### [facility] [address] [place] [address] Dr. Katrin Ceja Lymphocytes/100 WBC (Bld) 33.1 % Normal 20.5-60.0 [facility] Comment on above: Performed By: #### L IPID, CMP #### [facility] [address] [place] [address] Dr. Katrin Ceja MANUAL DIFF REQ NO Normal [facility] Comment on above: Performed By: #### L IPID, CMP #### [facility] [address] [place] [address] Dr. Katrin Ceja MCH (RBC) [Entitic mass] 29.9 pg Normal 26.7-34.0 [facility] Comment on above: Performed By: #### L IPID, CMP #### [facility] [address] [address] [address] Katrin Ceja MCHC (RBC) [Mass/Vol] 34.6 g/dL Normal 29.9-35.2 [facility] Comment on above: Performed By: #### L IPID, CMP #### [facility] [address] [address] [address] Katrin Ceja MCV (RBC) [Entitic vol] 86.5 fL Normal 81.0-99.0 [facility] Comment on above: Performed By: #### L IPID, CMP #### [facility] [address] [place] [address] Dr. Katrin Ceja MONO # 0.7 103/ul Normal 0.3-0.8 [facility] Comment on above: Performed By: #### L IPID, CMP #### [facility] [address] [place] [address] Dr. Katrin Ceja Monocytes/100 WBC (Bld) 6.5 % Normal 1.7-12.0 [facility] Comment on above: Performed By: #### L IPID, CMP #### [facility] [address] [place] [address] Dr. Katrin Ceja NEUT # 6.0 103/ul Normal 1.4-6.5 [facility] Comment on above: Performed By: #### L IPID, CMP #### [facility] [address] [place] [address] Dr. Katrin Ceja Neutrophils/100 WBC (Bld) 57.6 % Normal 43.0-75.0 [facility] Comment on above: Performed By: #### L IPID, CMP #### [facility] [address] [address] [address] Katrin Ceja Platelet mean volume (Bld) [Entitic vol] 8.7 fL Critically low 9.5-13.5 [facility] Comment on above: Performed By: #### L IPID, CMP #### [facility] [address] [place] [address] Dr. Katrin Ceja PLT 282 103/ul Normal 150-450 [facility] Comment on above: Performed By: #### L IPID, CMP #### [facility] [address] [address] [address] Katrin Ceja RBC 4.21 106/ul Normal 4.20-5.40 [facility] Comment on above: Performed By: #### L IPID, CMP #### [facility] [address] [place] [address] Dr. Katrin Ceja WBC 10.5 103/ul Normal 4.0-11.0 [facility] Comment on above: Performed By: #### L IPID, CMP #### [facility] [address] [place] [address] Dr. Katrin Ceja ER URINE PROFILEon 2 Bilirubin Ql (U) Negative Normal NEGATIVE [facility] Comment on above: Performed By: #### L IPID, CMP #### [facility] [address] [place] [address] Dr. Katrin Ceja Clarity (U) CLEAR Normal CLEAR [facility] Comment on above: Performed By: #### L IPID, CMP #### [facility] [address] [place] [address] Dr. Katrin Ceja Color (U) LT. YELLOW Normal YELLOW [facility] Comment on above: Performed By: #### L IPID, CMP #### [facility] [address] [place] [address] Dr. Katrin Ceja ERUAHD A micrscopic examina tion will be performed if indicated. Normal [facility] Comment on above: Performed By: #### L IPID, CMP #### [facility] [address] [place] [address] Dr. Katrin Ceja Glucose Ql (U) Negative Normal NEGATIVE [facility] Comment on above: Performed By: #### L IPID, CMP #### [facility] [address] [place] [address] Dr. Katrin Ceja Hemoglobin Ql (U) Negative Normal NEGATIVE [facility] Comment on above: Performed By: #### L IPID, CMP #### [facility] [address] [place] [address] Dr. Katrin Ceja Ketones Ql (U) Negative Normal NEGATIVE [facility] Comment on above: Performed By: #### L IPID, CMP #### [facility] [address] [place] [address] Dr. Katrin Ceja LEUKOCYTES Negative Normal NEGATIVE [facility] Comment on above: Performed By: #### L IPID, CMP #### [facility] [address] [place] [address] Dr. Katrin Ceja Nitrite Ql (U) Negative Normal NEGATIVE [facility] Comment on above: Performed By: #### L IPID, CMP #### [facility] [address] [place] [address] Dr. Katrin Ceja pH (U) 6.0 [pH] Normal 5-9 [facility] Comment on above: Performed By: #### L IPID, CMP #### [facility] [address] [place] [address] Dr. Katrin Ceja SPEC GRAVITY 1.015 Normal 1.005-<=1. 025 [facility] Comment on above: Performed By: #### L IPID, CMP #### [facility] [address] [place] [address] Dr. Katrin Ceja UA PROTEIN Negative Normal NEGATIVE/ TRACE [facility] Comment on above: Performed By: #### L IPID, CMP #### [facility] [address] [place] [address] Dr. Katrin Ceja UR MICRO IND NOT INDICATED Normal [facility] Comment on above: Performed By: #### L IPID, CMP #### [facility] [address] [place] [address] Dr. Katrin Ceja Urobilinogen Qn (U) 0.2 {Jeannie'U}/dL Normal 0.2 - 1. 0 [facility] Comment on above: Performed By: #### L IPID, CMP #### [facility] [address] [place] [address] Dr. Katrin Ceja LIPASEon 03-22-2022 Lipase [Catalytic activity/Vol] 84.0 U/L Normal 73.0-393.0 [facility] Comment on above: Performed By: #### H STROPN, CMP, LIPA #### [facility] [address] [address] [address] Katrin Ceja URon 03-22-2022 , QUAL Negative Normal NEGATIVE [facility] Comment on above: Performed By: #### L IPID, CMP #### [facility] [address] [address] [address] Katrin Ceja PROF 14(COMP METB)on 022 Albumin [Mass/Vol] 3.2 g/dL Critically low 3.4-5.0 [facility] Comment on above: Performed By: #### H STROPN, CMP, LIPA #### [facility] [address] [address] [address] Katrin Ceja Albumin/Globulin [Mass ratio] 0.8 {ratio} Normal [facility] Comment on above: Performed By: #### H STROPN, CMP, LIPA #### [facility] [address] [address] [address] Katrin Ceja ALP [Catalytic activity/Vol] 189 U/L Critically high 46-116 [facility] Comment on above: Performed By: #### H STROPN, CMP, LIPA #### [facility] [address] [address] [address] Katrin Ceja ALT [Catalytic activity/Vol] 31 U/L Normal 14-59 [facility] Comment on above: Performed By: #### H STROPN, CMP, LIPA #### [facility] [address] [address] [address] Katrin Ceja Anion gap [Moles/Vol] 9.9 mmol/L Normal [facility] Comment on above: Performed By: #### H STROPN, CMP, LIPA #### [facility] [address] [address] [address] Katrin Ceja AST [Catalytic activity/Vol] 17 U/L Normal 15-37 [facility] Comment on above: Performed By: #### H STROPN, CMP, LIPA #### [facility] [address] [address] [address] Katrin Ceja Bilirubin [Mass/Vol] 0.2 mg/dL Normal 0.2-1.0 [facility] Comment on above: Performed By: #### H STROPN, CMP, LIPA #### [facility] [address] [address] [address] Katrin Ceja Calcium [Mass/Vol] 8.7 mg/dL Normal 8.5-10.1 [facility] Comment on above: Performed By: #### H STROPN, CMP, LIPA #### [facility] [address] [address] [address] Katrin Ceja Chloride [Moles/Vol] 103 mmol/L Normal 98-107 [facility] Comment on above: Performed By: #### H STROPN, CMP, LIPA #### [facility] [address] [place] [address] Dr. Katrin Ceja CO2 [Moles/Vol] 25.4 mmol/L Normal 21.0-32.0 [facility] Comment on above: Performed By: #### H STROPN, CMP, LIPA #### [facility] [address] [address] [address] Katrin Ceja Creatinine [Mass/Vol] 0.71 mg/dL Normal 0.55-1.02 [facility] Comment on above: Performed By: #### H STROPN, CMP, LIPA #### [facility] [address] [address] [address] Katrin Ceja EGFR-AF CYMRAES >60 Normal >=60 [facility] Comment on above: Performed By: #### H STROPN, CMP, LIPA #### [facility] [address] [address] [address] Katrin Ceja EGFR-NON AF CYMRAES >60 Normal >=60 [facility] Comment on above: Performed By: #### H STROPN, CMP, LIPA #### [facility] [address] [address] [address] Katrin Ceja Globulin (S) [Mass/Vol] 4.0 g/dL Normal [facility] Comment on above: Performed By: #### H STROPN, CMP, LIPA #### [facility] [address] [address] [address] Katrin Ceja Glucose [Mass/Vol] 106 mg/dL Normal 74-106 [facility] Comment on above: Performed By: #### H STROPN, CMP, LIPA #### [facility] [address] [address] [address] Katrin Ceja Potassium [Moles/Vol] 3.3 mmol/L Critically low 3.5-5.1 [facility] Comment on above: Performed By: #### H STROPN, CMP, LIPA #### [facility] [address] [address] [address] Katrin Ceja Protein [Mass/Vol] 7.2 g/dL Normal 6.4-8.2 [facility] Comment on above: Performed By: #### H STROPN, CMP, LIPA #### [facility] [address] [address] [address] Katrin Ceja Sodium [Moles/Vol] 135 mmol/L Critically low 136-145 [facility] Comment on above: Performed By: #### H STROPN, CMP, LIPA #### [facility] [address] [address] [address] Katrin Ceja Urea nitrogen [Mass/Vol] 5.0 mg/dL Critically low 7.0-18.0 [facility] Comment on above: Performed By: #### H STROPN, CMP, LIPA #### [facility] [address] [address] [address] Katrin Ceja Urea nitrogen/Creatinine [Mass ratio] 7.0 mg/mg Normal [facility] Comment on above: Performed By: #### H STROPN, CMP, LIPA #### [facility] [address] [address] [address] Katrin Ceja TROPONIN, HIGH SENSITIVITYon 03-22-2022 HSTROP <4.0 Normal 4.0-51.3 [facility] Comment on above: Result Comment: CUT- OFF POINTS HAVE BEEN ESTABLISHED BASED ON THE FOURTH UNIVERSAL DEFINITIONS OF MYOCARDIAL INFARCTION. THE UPPER REFERENCE LIMIT (URL) OF TROPONIN, DEFINED THE 99TH PERCENTILE OF cTnI DISTRIBUTION IN A REFERENCE POPULATION, HAS BEEN CONFIRMED THE DECISION THRESHOLD FOR [place] DIAGNOSIS. Performed By: #### H STROPN, CMP, LIPA #### [facility] [address] [address] [address] Katrin Ceja XR ABD FLAT UP_PA [...] GERI LASSITER Date: 2022-03-22 01:53 Normal [facility] XR ANKLE LT MIN 3 Von 2021 XR ANKLE LT MIN 3 V EXAM: XR ANKLE LT FL N 3 V HISTORY: Ankle pain COMPARISON: None. TECHNIQUE: 3 views FINDINGS: No osseous lesion, fracture, dislocation or subluxation. Joint spaces are normal. Old posttraumatic ossifications adjacent to the tip of the lateral malleolus. No visualized effusion. No visualized soft tissue edema. IMPRESSION: Normal x-rays Electronically authenticated by: DANNI QUINONES Date: 2022-03-09 19:32 Normal [facility] CBC AUTO DIFFon 02-08-2022 BASO # 0.0 103/ul Normal 0.0-0.1 [facility] Comment on above: Performed By: #### C BC #### [facility] [address] [address] [address] Katrin Ceja Basophils/100 WBC (Bld) 0.3 % Normal 0.2-2.0 [facility] Comment on above: Performed By: #### C BC #### [facility] [address] [address] [address] Katrin Ceja EO # 0.3 103/ul Normal 0.0-0.7 [facility] Comment on above: Performed By: #### C BC #### [facility] [address] [place] [address] Dr. Katrin Ceja Eosinophils/100 WBC (Bld) 3.0 % Normal 0.9-7.0 [facility] Comment on above: Performed By: #### C BC #### [facility] [address] [place] [address] Dr. Katrin Ceja Erythrocyte distribution width (RBC) [Ratio] 12.2 % Normal 11.0-15.0 [facility] Comment on above: Performed By: #### C BC #### [facility] [address] [place] [address] Dr. Katrin Ceja Hematocrit (Bld) [Volume fraction] 33.8 % Critically low 36.0-48.0 [facility] Comment on above: Performed By: #### C BC #### [facility] [address] [place] [address] Dr. Katrin Ceja Hemoglobin (Bld) [Mass/Vol] 11.9 g/dL Critically low 12.0-16.0 [facility] Comment on above: Performed By: #### C BC #### [facility] [address] [place] [address] Dr. Katrin Ceja IG # 0.04 10e3/ul Critically high 0.00-0.03 [facility] Comment on above: Performed By: #### C BC #### [facility] [address] [place] [address] Dr. Katrin Ceja IG % 0.4 % Normal 0.0-0.5 [facility] Comment on above: Performed By: #### C BC #### [facility] [address] [place] [address] Dr. Katrin Ceja LYMPH # 3.0 103/ul Normal 1.2-3.8 [facility] Comment on above: Performed By: #### C BC #### [facility] [address] [place] [address] Dr. Katrin Ceja Lymphocytes/100 WBC (Bld) 28.4 % Normal 20.5-60.0 [facility] Comment on above: Performed By: #### C BC #### [facility] [address] [place] [address] Dr. Katrin Ceja MANUAL DIFF REQ NO Normal [facility] Comment on above: Performed By: #### C BC #### [facility] [address] [place] [address] Dr. Katrin Ceja MCH (RBC) [Entitic mass] 29.8 pg Normal 26.7-34.0 [facility] Comment on above: Performed By: #### C BC #### [facility] [address] [place] [address] Dr. Katrin Ceja MCHC (RBC) [Mass/Vol] 35.2 g/dL Normal 29.9-35.2 [facility] Comment on above: Performed By: #### C BC #### [facility] [address] [place] [address] Dr. Katrin Ceja MCV (RBC) [Entitic vol] 84.7 fL Normal 81.0-99.0 [facility] Comment on above: Performed By: #### C BC #### [facility] [address] [place] [address] Dr. Katrin Ceja MONO # 0.7 103/ul Normal 0.3-0.8 [facility] Comment on above: Performed By: #### C BC #### [facility] [address] [place] [address] Dr. Katrin Ceja Monocytes/100 WBC (Bld) 6.6 % Normal 1.7-12.0 [facility] Comment on above: Performed By: #### C BC #### [facility] [address] [place] [address] Dr. Katrin Ceja NEUT # 6.4 103/ul Normal 1.4-6.5 [facility] Comment on above: Performed By: #### C BC #### [facility] [address] [address] [address] Katrin Ceja Neutrophils/100 WBC (Bld) 61.3 % Normal 43.0-75.0 [facility] Comment on above: Performed By: #### C BC #### [facility] [address] [address] [address] Katrin Ceja Platelet mean volume (Bld) [Entitic vol] 8.9 fL Critically low 9.5-13.5 [facility] Comment on above: Performed By: #### C BC #### [facility] [address] [address] [address] Katrin Ceja PLT 299 103/ul Normal 150-450 [facility] Comment on above: Performed By: #### C BC #### [facility] [address] [place] [address] Dr. Katrin Ceja RBC 3.99 106/ul Critically low 4.20-5.40 [facility] Comment on above: Performed By: #### C BC #### [facility] [address] [place] [address] Dr. Katrin Ceja WBC 10.4 103/ul Normal 4.0-11.0 [facility] Comment on above: Performed By: #### C BC #### [facility] [address] [place] [address] Dr. Katrin Ceja D-DIMERon 02-08-2022 D-DIMER 0.59 mg/L FEU Normal <=0.59 [facility] Comment on above: Performed By: #### L IPID, CMP #### [facility] [address] [place] [address] Dr. Katrin Ceja D-DIMER COMMENTS SEE BELOW Normal [facility] Comment on above: Result Comment: Incr eases [...] Performed By: #### L IPID, CMP #### [facility] [address] [place] [address] Dr. Katrin Ceja PROF CHEM 8 (BAS METB)on Anion gap [Moles/Vol] 12.8 mmol/L Normal [facility] Comment on above: Performed By: #### C BC #### [facility] [address] [place] [address] Dr. Katrin Ceja Calcium [Mass/Vol] 8.7 mg/dL Normal 8.5-10.1 [facility] Comment on above: Performed By: #### C BC #### [facility] [address] [place] [address] Dr. Katrin Ceja Chloride [Moles/Vol] 102 mmol/L Normal 98-107 [facility] Comment on above: Performed By: #### C BC #### [facility] [address] [place] [address] Dr. Katrin Ceja CO2 [Moles/Vol] 25.9 mmol/L Normal 21.0-32.0 [facility] Comment on above: Performed By: #### C BC #### [facility] [address] [place] [address] Dr. Katrin Ceja Creatinine [Mass/Vol] 0.70 mg/dL Normal 0.55-1.02 [facility] Comment on above: Performed By: #### C BC #### [facility] [address] [place] [address] Dr. Katrin Ceja EGFR-AF CYMRAES >60 Normal >=60 [facility] Comment on above: Performed By: #### C BC #### [facility] [address] [place] [address] Dr. Katrin Ceja EGFR-NON AF CYMRAES >60 Normal >=60 [facility] Comment on above: Performed By: #### C BC #### [facility] [address] [place] [address] Dr. Katrin Ceja Glucose [Mass/Vol] 95 mg/dL Normal 74-106 [facility] Comment on above: Performed By: #### C BC #### [facility] [address] [address] [address] Katrin Ceja Potassium [Moles/Vol] 2.7 mmol/L Critically low 3.5-5.1 [facility] Comment on above: Result Comment: Test Repeated. Critical Value Verified Performed By: #### C BC #### [facility] [address] [place] [address] Dr. Katrin Ceja Sodium [Moles/Vol] 136 mmol/L Normal 136-145 [facility] Comment on above: Performed By: #### C BC #### [facility] [address] [place] [address] Dr. Katrin Ceja Urea nitrogen [Mass/Vol] 3.0 mg/dL Critically low 7.0-18.0 [facility] Comment on above: Performed By: #### C BC #### [facility] [address] [place] [address] Dr. Katrin Ceja Urea nitrogen/Creatinine [Mass ratio] 4.3 mg/mg Normal [facility] Comment on above: Performed By: #### C BC #### [facility] [address] [place] [address] Dr. Katrin Ceja XR CHEST 2 Von [...] by: RIVER SAID Date: 2022-02-08 04:19 Normal [facility] LIPID PROFILEon 12-18-2021 CHOL-HDL RATIO NORM SEE BELOW Normal [facility] Comment on above: Result Comment: 3.3 - 4.4 LOW RISK 4.4 - 7.1 AVERAGE RISK 7.1 - 11.0 MODERATE RISK >11.0 HIGH RISK Performed By: #### L IPID, LIVER #### [facility] [address] [address] [address] Katrin Ceja Cholesterol [Mass/Vol] 126 mg/dL Normal <=200 [facility] Comment on above: Performed By: #### L IPID, LIVER #### [facility] [address] [address] [address] Katrin Ceja Cholesterol in HDL [Mass/Vol] 31 mg/dL Critically low 40-60 [facility] Comment on above: Performed By: #### L IPID, LIVER #### [facility] [address] [address] [address] Katrin Ceja Cholesterol in LDL [Mass/Vol] 59.2 mg/dL Normal [facility] Comment on above: Performed By: #### L IPID, LIVER #### [facility] [address] [place] [address] Dr. Katrin Ceja Cholesterol.total/Chol esterol in HDL [Mass ratio] 4.1 {ratio} Normal [facility] Comment on above: Performed By: #### L IPID, LIVER #### [facility] [address] [address] [address] Katrin Ceja HDL NORMAL > or = 60 mg/dl - LO W CARDIOVASCULAR RISK <40 mg/dl - HIGH CARDIOVASCULAR RISK Normal [facility] Comment on above: Performed By: #### L IPID, LIVER #### [facility] [address] [place] [address] Dr. Katrin Ceja LDL CALC NORMAL SEE BELOW Normal [facility] Comment on above: Result Comment: <100 mg/dl OPTIMAL 100 - 129 mg/dl NEAR OR ABOVE OPTIMAL 130 - 159 mg/dl BORDERLINE HIGH 160 - 189 mg/dl HIGH >190 mg/dl VERY HIGH Performed By: #### L IPID, LIVER #### [facility] [address] [place] [address] Dr. Katrin Ceja Triglyceride [Mass/Vol] 179 mg/dL Critically high <=150 [facility] Comment on above: Performed By: #### L IPID, LIVER #### [facility] [address] [address] [address] Katrin Ceja VLDL CALC 35.8 mg/dL Normal [facility] Comment on above: Performed By: #### L IPID, LIVER #### [facility] [address] [address] [address] Katrin Ceja LIVER PROFILEon 12-18-2021 Albumin [Mass/Vol] 3.6 g/dL Normal 3.4-5.0 [facility] Comment on above: Performed By: #### L IPID, LIVER #### [facility] [address] [address] [address] Katrin Ceja Albumin/Globulin [Mass ratio] 0.8 {ratio} Normal [facility] Comment on above: Performed By: #### L IPID, LIVER #### [facility] [address] [address] [address] Katrin Ceja ALP [Catalytic activity/Vol] 196 U/L Critically high 46-116 [facility] Comment on above: Performed By: #### L IPID, LIVER #### [facility] [address] [place] [address] Dr. Katrin Ceja ALT [Catalytic activity/Vol] 51 U/L Normal 14-59 [facility] Comment on above: Performed By: #### L IPID, LIVER #### [facility] [address] [address] [address] Katrin Ceja AST [Catalytic activity/Vol] 22 U/L Normal 15-37 [facility] Comment on above: Performed By: #### L IPID, LIVER #### [facility] [address] [place] [address] Dr. Katrin Ceja BILI, CONJUGATED 0.1 mg/dL Normal 0.0-0.2 [facility] Comment on above: Performed By: #### L IPID, LIVER #### [facility] [address] [place] [address] Dr. Katrin Ceja Bilirubin [Mass/Vol] 0.4 mg/dL Normal 0.2-1.0 [facility] Comment on above: Performed By: #### L IPID, LIVER #### [facility] [address] [place], [place] [address] Dr. Katrin Ceja Globulin (S) [Mass/Vol] 4.4 g/dL Normal [facility] Comment on above: Performed By: #### L IPID, LIVER #### [facility] [address] [address] [address] Katrin Ceja Protein [Mass/Vol] 8.0 g/dL Normal 6.4-8.2 [facility] Comment on above: Performed By: #### L IPID, LIVER #### [facility] [id number] Katrin Ceja XR FOOT RT MIN [...] RIVER RODGERS Date: 2021-12-07 00:19 Normal [facility] PROF 14(COMP METB)on 022 Albumin [Mass/Vol] 3.6 g/dL Normal 3.4-5.0 [facility] Comment on above: Performed By: #### L IPID, CMP #### [facility] [address] [address] [address] Katrin Ceja Albumin/Globulin [Mass ratio] 0.8 {ratio} Normal [facility] Comment on above: Performed By: #### L IPID, CMP #### [facility] [id number] Katrin Ceja ALP [Catalytic activity/Vol] 209 U/L Critically high 46-116 [facility] Comment on above: Performed By: #### L IPID, CMP #### [facility] [address] [address] [address] Katrin Ceja ALT [Catalytic activity/Vol] 65 U/L Critically high 14-59 [facility] Comment on above: Performed By: #### L IPID, CMP #### [facility] [address] [address] [address] Katrin Ceja Anion gap [Moles/Vol] 15.7 mmol/L Normal [facility] Comment on above: Performed By: #### L IPID, CMP #### [facility] [address] [address] [address] Katrin Ceja AST [Catalytic activity/Vol] 31 U/L Normal 15-37 [facility] Comment on above: Performed By: #### L IPID, CMP #### [facility] [address] [address] [address] Katrin Ceja Bilirubin [Mass/Vol] 0.2 mg/dL Normal 0.2-1.3 [facility] Comment on above: Performed By: #### L IPID, CMP #### [facility] [address] [address] [address] Katrin Ceja Calcium [Mass/Vol] 8.8 mg/dL Normal 8.5-10.1 [facility] Comment on above: Performed By: #### L IPID, CMP #### [facility] [address] [place] [address] Dr. Katrin Ceja Chloride [Moles/Vol] 105 mmol/L Normal 98-107 [facility] Comment on above: Performed By: #### L IPID, CMP #### [facility] [address] [address] [address] Katrin Ceja CO2 [Moles/Vol] 21.3 mmol/L Critically low 22.0-30.0 [facility] Comment on above: Performed By: #### L IPID, CMP #### [facility] [address] [address] [address] Katrin Ceja Creatinine [Mass/Vol] 0.72 mg/dL Normal 0.52-1.04 [facility] Comment on above: Performed By: #### L IPID, CMP #### [facility] [address] [address] [address] Katrin Ceja EGFR-AF CYMRAES >60 Normal >=60 [facility] Comment on above: Performed By: #### L IPID, CMP #### [facility] [address] [address] [address] Katrin Ceja EGFR-NON AF CYMRAES >60 Normal >=60 [facility] Comment on above: Performed By: #### L IPID, CMP #### [facility] [address] [address] [address] Katrin Ceja Globulin (S) [Mass/Vol] 4.3 g/dL Normal [facility] Comment on above: Performed By: #### L IPID, CMP #### [facility] [address] [address] [address] Katrin Ceja Glucose [Mass/Vol] 99 mg/dL Normal 74-106 [facility] Comment on above: Performed By: #### L IPID, CMP #### [facility] [address] [address] [address] Katrin Ceja Potassium [Moles/Vol] 4.0 mmol/L Normal 3.4-5.0 [facility] Comment on above: Performed By: #### L IPID, CMP #### [facility] [address] [address] [address] Katrin Ceja Protein [Mass/Vol] 7.9 g/dL Normal 6.1-8.2 [facility] Comment on above: Performed By: #### L IPID, CMP #### [facility] [address] [address] [address] Katrin Ceja Sodium [Moles/Vol] 138 mmol/L Normal 137-145 [facility] Comment on above: Performed By: #### L IPID, CMP #### [facility] [address] [address] [address] Katrin Ceja Urea nitrogen [Mass/Vol] 13.0 mg/dL Normal 7.0-18.0 [facility] Comment on above: Performed By: #### L IPID, CMP #### [facility] [address] [address] [address] Katrin Ceja Urea nitrogen/Creatinine [Mass ratio] 18.1 mg/mg Normal [facility] Comment on above: Performed By: #### L IPID, CMP #### [facility] [address] [address] [address] Katrin Ceja XR HUMERUS RT MIN [...] MODESTA NAVA Date: 2021-10-17 01:46 Normal [facility] XR SHOULDER RT 2V or >on [...] MODESTA NAVA Date: 2021-10-17 01:45 Normal [facility] XR WRIST RT MIN 3 Von 2021 XR WRIST RT MIN 3 V EXAM: XR WRIST RT FL N 3 V HISTORY: Pain acute right arm pain following fall. COMPARISON: None. TECHNIQUE: AP, oblique and lateral views of the right wrist. FINDINGS: No acute or intrinsic osseous, articular or soft tissue abnormality is seen. IMPRESSION: No acute right wrist findings. Electronically authenticated by: MODESTA NAVA Date: 2021-10-17 01:44 Normal [facility] AMYLASEon 09-18-2021 Amylase [Catalytic activity/Vol] 34 U/L Normal 31-110 [facility] Comment on above: Performed By: #### P REG #### [facility] [address] [address] [address] Katrin Ceja CBC AUTO DIFFon 09-18-2021 BASO # 0.0 103/ul Normal 0.0-0.1 [facility] Comment on above: Performed By: #### C BC #### [facility] [address] [place] [address] Dr. Katrin Ceja Basophils/100 WBC (Bld) 0.3 % Normal 0.2-2.0 [facility] Comment on above: Performed By: #### C BC #### [facility] [address] [address] [address] Katrin Ceja EO # 0.2 103/ul Normal 0.0-0.7 [facility] Comment on above: Performed By: #### C BC #### [facility] [address] [place] [address] Dr. Katrin Ceja Eosinophils/100 WBC (Bld) 2.4 % Normal 0.9-7.0 [facility] Comment on above: Performed By: #### C BC #### [facility] [address] [place] [address] Dr. Katrin Ceja Erythrocyte distribution width (RBC) [Ratio] 12.5 % Normal 11.0-15.0 [facility] Comment on above: Performed By: #### C BC #### [facility] [address] [place] [address] Dr. Katrin Ceja Hematocrit (Bld) [Volume fraction] 37.4 % Normal 36.0-48.0 [facility] Comment on above: Performed By: #### C BC #### [facility] [address] [place] [address] Dr. Katrin Ceja Hemoglobin (Bld) [Mass/Vol] 12.3 g/dL Normal 12.0-16.0 [facility] Comment on above: Performed By: #### C BC #### [facility] [address] [place] [address] Dr. Katrin Ceja IG # 0.05 10e3/ul Critically high 0.00-0.03 [facility] Comment on above: Performed By: #### C BC #### [facility] [address] [place] [address] Dr. Katrin Ceja IG % 0.5 % Normal 0.0-0.5 [facility] Comment on above: Performed By: #### C BC #### [facility] [address] [place] [address] Dr. Katrin Ceja LYMPH # 3.1 103/ul Normal 1.2-3.8 [facility] Comment on above: Performed By: #### C BC #### [facility] [address] [place] [address] Dr. Katrin Ceja Lymphocytes/100 WBC (Bld) 31.7 % Normal 20.5-60.0 [facility] Comment on above: Performed By: #### C BC #### [facility] [address] [place] [address] Dr. Katrin Ceja MANUAL DIFF REQ NO Normal [facility] Comment on above: Performed By: #### C BC #### [facility] [address] [place] [address] Dr. Katrin Ceja MCH (RBC) [Entitic mass] 28.9 pg Normal 26.7-34.0 [facility] Comment on above: Performed By: #### C BC #### [facility] [address] [place] [address] Dr. Katrin Ceja MCHC (RBC) [Mass/Vol] 32.9 g/dL Normal 29.9-35.2 [facility] Comment on above: Performed By: #### C BC #### [facility] [address] [place] [address] Dr. Katrin Ceja MCV (RBC) [Entitic vol] 88.0 fL Normal 81.0-99.0 [facility] Comment on above: Performed By: #### C BC #### [facility] [address] [place] [address] Dr. Katrin Ceja MONO # 0.7 103/ul Normal 0.3-0.8 [facility] Comment on above: Performed By: #### C BC #### [facility] [address] [place] [address] Dr. Katrin Ceja Monocytes/100 WBC (Bld) 6.7 % Normal 1.7-12.0 [facility] Comment on above: Performed By: #### C BC #### [facility] [address] [place] [address] Dr. Katrin Ceja NEUT # 5.7 103/ul Normal 1.4-6.5 [facility] Comment on above: Performed By: #### C BC #### [facility] [address] [place] [address] Dr. Katrin Ceja Neutrophils/100 WBC (Bld) 58.4 % Normal 43.0-75.0 [facility] Comment on above: Performed By: #### C BC #### [facility] [address] [place] [address] Dr. Katrin Ceja Platelet mean volume (Bld) [Entitic vol] 8.8 fL Critically low 9.5-13.5 [facility] Comment on above: Performed By: #### C BC #### [facility] [address] [place] [address] Dr. Katrin Cjea PLT 265 103/ul Normal 150-450 [facility] Comment on above: Performed By: #### C BC #### [facility] [address] [place] [address] Dr. Katrin Ceja RBC 4.25 106/ul Normal 4.20-5.40 [facility] Comment on above: Performed By: #### C BC #### [facility] [address] [place] [address] Dr. Katrin Ceja WBC 9.7 103/ul Normal 4.0-11.0 [facility] Comment on above: Performed By: #### C BC #### [facility] [address] [place] [address] ABD/PELV W CONon [...] ISAIAH FAROOQ Date: 2021-09-18 03:51 Normal [facility] ER URINE PROFILEon 2 Bilirubin Ql (U) Negative Normal NEGATIVE [facility] Comment on above: Performed By: #### C BC #### [facility] [address] [place] [address] Dr. Katrin Ceja Clarity (U) CLEAR Normal CLEAR [facility] Comment on above: Performed By: #### C BC #### [facility] [address] [place] [address] Dr. Katrin Ceja Color (U) LT. YELLOW Normal YELLOW [facility] Comment on above: Performed By: #### C BC #### [facility] [address] [place] [address] Dr. Katrin Ceja ERUAHTammy A micrscopic examina tion will be performed if indicated. Normal [facility] Comment on above: Performed By: #### C BC #### [facility] [address] [place] [address] Dr. Katrin Ceja Glucose Ql (U) Negative Normal NEGATIVE [facility] Comment on above: Performed By: #### C BC #### [facility] [address] [place] [address] Dr. Katrin Ceja Hemoglobin Ql (U) SMALL Abnormal NEGATIVE [facility] Comment on above: Performed By: #### C BC #### [facility] [address] [place] [address] Dr. Katrin Ceja Ketones Ql (U) Negative Normal NEGATIVE [facility] Comment on above: Performed By: #### C BC #### [facility] [address] [place] [address] Dr. Katrin Ceja LEUKOCYTES Negative Normal NEGATIVE [facility] Comment on above: Performed By: #### C BC #### [facility] [address] [place] [address] Dr. Katrin Ceja Nitrite Ql (U) Negative Normal NEGATIVE [facility] Comment on above: Performed By: #### C BC #### [facility] [address] [place] [address] Dr. Katrin Ceja pH (U) 7.5 [pH] Normal 5-9 [facility] Comment on above: Performed By: #### C BC #### [facility] [address] [place] [address] Dr. Katrin Ceja SPEC GRAVITY 1.010 Normal 1.005-<=1. 025 [facility] Comment on above: Performed By: #### C BC #### [facility] [address] [place] [address] Dr. Katrin Ceja UA PROTEIN Negative Normal NEGATIVE/ TRACE [facility] Comment on above: Performed By: #### C BC #### [facility] [address] [place] [address] Dr. Katrin Ceja UR MICRO IND INDICATED Normal [facility] Comment on above: Performed By: #### C BC #### [facility] [address] [place] [address] Dr. Katrin Ceja Urobilinogen Qn (U) 0.2 {Jeannie'U}/dL Normal 0.2 - 1. 0 [facility] Comment on above: Performed By: #### C BC #### [facility] [address] [place] [address] Dr. Katrin Ceja LIPASEon 09-18-2021 Lipase [Catalytic activity/Vol] 81.0 U/L Normal 23.0-300.0 [facility] Comment on above: Performed By: #### P REG #### [facility] [address] [place] [address] Dr. Katrin Ceja URon 09-18-2021 , QUAL Negative Normal NEGATIVE [facility] Comment on above: Performed By: #### C BC #### [facility] [address] [place] [address] Dr. Katrin Ceja PROF 14(COMP METB)on 022 Albumin [Mass/Vol] 3.2 g/dL Critically low 3.5-5.0 [facility] Comment on above: Performed By: #### P REG #### [facility] [address] [place] [address] Dr. Katrin Ceja Albumin/Globulin [Mass ratio] 0.8 {ratio} Normal [facility] Comment on above: Performed By: #### P REG #### [facility] [address] [place] [address] Dr. Katrin Ceja ALP [Catalytic activity/Vol] 216 U/L Critically high 38-126 [facility] Comment on above: Performed By: #### P REG #### [facility] [address] [place] [address] Dr. Katrin Ceja ALT [Catalytic activity/Vol] 109 U/L Critically high 9-52 [facility] Comment on above: Performed By: #### P REG #### [facility] [address] [place] [address] Dr. Katrin Ceja Anion gap [Moles/Vol] 10.5 mmol/L Normal [facility] Comment on above: Performed By: #### P REG #### [facility] [address] [place] [address] Dr. Katrin Ceja AST [Catalytic activity/Vol] 66 U/L Critically high 14-36 [facility] Comment on above: Performed By: #### P REG #### [facility] [address] [place] [address] Dr. Katrin Ceja Bilirubin [Mass/Vol] 0.2 mg/dL Normal 0.2-1.3 [facility] Comment on above: Performed By: #### P REG #### [facility] [address] [place] [address] Dr. Katrin Ceja Calcium [Mass/Vol] 8.3 mg/dL Critically low 8.4-10.2 [facility] Comment on above: Performed By: #### P REG #### [facility] [address] [place] [address] Dr. Katrin Ceja Chloride [Moles/Vol] 103 mmol/L Normal 98-107 [facility] Comment on above: Performed By: #### P REG #### [facility] [address] [place] [address] Dr. Katrin Ceja CO2 [Moles/Vol] 26.2 mmol/L Normal 22.0-30.0 [facility] Comment on above: Performed By: #### P REG #### [facility] [address] [place] [address] Dr. Katrin Ceja Creatinine [Mass/Vol] 0.81 mg/dL Normal 0.52-1.04 [facility] Comment on above: Performed By: #### P REG #### [facility] [address] [place] [address] Dr. Katrin Ceja EGFR-AF CYMRAES >60 Normal >=60 [facility] Comment on above: Performed By: #### P REG #### [facility] [address] [place] [address] Dr. Katrin Ceja EGFR-NON AF CYMRAES >60 Normal >=60 [facility] Comment on above: Performed By: #### P REG #### [facility] [address] [place] [address] Dr. Katrin Ceja Globulin (S) [Mass/Vol] 4.1 g/dL Normal [facility] Comment on above: Performed By: #### P REG #### [facility] [address] [place] [address] Dr. Katrin Ceja Glucose [Mass/Vol] 90 mg/dL Normal 74-106 [facility] Comment on above: Performed By: #### P REG #### [facility] [address] [address] [address] Katrin Ceja Potassium [Moles/Vol] 3.7 mmol/L Normal 3.4-5.0 [facility] Comment on above: Performed By: #### P REG #### [facility] [address] [address] [address] Katrin Ceja Protein [Mass/Vol] 7.3 g/dL Normal 6.1-8.2 [facility] Comment on above: Performed By: #### P REG #### [facility] [address] [place] [address] Dr. Katrin Ceja Sodium [Moles/Vol] 136 mmol/L Critically low 137-145 [facility] Comment on above: Performed By: #### P REG #### [facility] [address] [place] [address] Dr. Katrin Ceja Urea nitrogen [Mass/Vol] 5.0 mg/dL Critically low 7.0-17.0 [facility] Comment on above: Performed By: #### P REG #### [facility] [address] [place] [address] Dr. Katrin Ceja Urea nitrogen/Creatinine [Mass ratio] 6.2 mg/mg Normal [facility] Comment on above: Performed By: #### P REG #### [facility] [address] [place] [address] Dr. Katrin Ceja URINE MICROSCOPIC ONLYon BACTERIA NONE SEEN Normal NONE SEEN [facility] Comment on above: Performed By: #### C BC #### [facility] [address] [place] [address] Dr. Katrin Ceja Bacteria identified Cx Nom (U) NOT INDICATED Normal [facility] Comment on above: Performed By: #### C BC #### [facility] [address] [place] [address] Dr. Katrin Ceja CAST NONE SEEN Normal NONE SEEN [facility] Comment on above: Performed By: #### C BC #### [facility] [address] [place] [address] Dr. Katrin Ceja Crystals LM Nom (Urine sed) NONE SEEN Normal NONE SEEN [facility] Comment on above: Performed By: #### C BC #### [facility] [address] [place] [address] Dr. Katrin Ceja Epithelial cells LM Ql (Urine sed) FEW Abnormal NONE SEEN /RARE [facility] Comment on above: Performed By: #### C BC #### [facility] [address] [place] [address] Dr. Katrin Ceja MUCOUS NONE SEEN Normal NONE SEEN [facility] Comment on above: Performed By: #### C BC #### [facility] [address] [place] [address] Dr. Katrin Ceja RBC NONE SEEN Abnormal 0-2 [facility] Comment on above: Performed By: #### C BC #### [facility] [address] [place] [address] Dr. Katrin Ceja WBC NONE SEEN Normal NONE SEEN [facility] Comment on above: Performed By: #### C BC #### [facility] [address] [place] [address] Dr. Katrin Ceja XR ABD FLAT UP_PA [...] ISAIAH FAROOQ Date: 2021-09-18 02:00 Normal [facility] CBC AUTO DIFFon 07-18-2021 BASO # 0.0 103/ul Normal 0.0-0.1 [facility] Comment on above: Performed By: #### C BC #### [facility] [address] [place] [address] Dr. Katrin Ceja Basophils/100 WBC (Bld) 0.3 % Normal 0.2-2.0 [facility] Comment on above: Performed By: #### C BC #### [facility] [address] [address] [address] Katrin Ceja EO # 0.2 103/ul Normal 0.0-0.7 [facility] Comment on above: Performed By: #### C BC #### [facility] [address] [address] [address] Katrin Ceja Eosinophils/100 WBC (Bld) 1.7 % Normal 0.9-7.0 [facility] Comment on above: Performed By: #### C BC #### [facility] [address] [address] [address] Katrin Ceja Erythrocyte distribution width (RBC) [Ratio] 13.1 % Normal 11.0-15.0 [facility] Comment on above: Performed By: #### C BC #### [facility] [address] [place] [address] Dr. Katrin Ceja Hematocrit (Bld) [Volume fraction] 42.0 % Normal 36.0-48.0 [facility] Comment on above: Performed By: #### C BC #### [facility] [address] [place] [address] Dr. Katrin Ceja Hemoglobin (Bld) [Mass/Vol] 13.7 g/dL Normal 12.0-16.0 [facility] Comment on above: Performed By: #### C BC #### [facility] [address] [address] [address] Katrin Ceja IG # 0.07 10e3/ul Critically high 0.00-0.03 [facility] Comment on above: Performed By: #### C BC #### [facility] [address] [address] [address] Katrin Ceja IG % 0.6 % Critically high 0.0-0.5 [facility] Comment on above: Performed By: #### C BC #### [facility] [address] [address] [address] Katrin Ceja LYMPH # 2.9 103/ul Normal 1.2-3.8 [facility] Comment on above: Performed By: #### C BC #### [facility] [address] [place] [address] Dr. Katrin Ceja Lymphocytes/100 WBC (Bld) 27.1 % Normal 20.5-60.0 [facility] Comment on above: Performed By: #### C BC #### [facility] [address] [place] [address] Dr. Katrin Ceja MANUAL DIFF REQ NO Normal [facility] Comment on above: Performed By: #### C BC #### [facility] [address] [place] [address] Dr. Katrin Ceja MCH (RBC) [Entitic mass] 29.3 pg Normal 26.7-34.0 [facility] Comment on above: Performed By: #### C BC #### [facility] [address] [place] [address] Dr. Katrin Ceja MCHC (RBC) [Mass/Vol] 32.6 g/dL Normal 29.9-35.2 [facility] Comment on above: Performed By: #### C BC #### [facility] [address] [place] [address] Dr. Katrin Ceja MCV (RBC) [Entitic vol] 89.7 fL Normal 81.0-99.0 [facility] Comment on above: Performed By: #### C BC #### [facility] [address] [place] [address] Dr. Katrin Ceja MONO # 0.9 103/ul Critically high 0.3-0.8 [facility] Comment on above: Performed By: #### C BC #### [facility] [address] [place] [address] Dr. Katrin Ceja Monocytes/100 WBC (Bld) 8.2 % Normal 1.7-12.0 [facility] Comment on above: Performed By: #### C BC #### [facility] [address] [place] [address] Dr. Katrin Ceja NEUT # 6.7 103/ul Critically high 1.4-6.5 [facility] Comment on above: Performed By: #### C BC #### [facility] [address] [address] [address] Katrin Ceja Neutrophils/100 WBC (Bld) 62.1 % Normal 43.0-75.0 [facility] Comment on above: Performed By: #### C BC #### [facility] [address] [place] [address] Dr. Katrin Ceja Platelet mean volume (Bld) [Entitic vol] 9.7 fL Normal 9.5-13.5 [facility] Comment on above: Performed By: #### C BC #### [facility] [address] [place] [address] Dr. Katrin Ceja PLT 334 103/ul Normal 150-450 [facility] Comment on above: Performed By: #### C BC #### [facility] [address] [place] [address] Dr. Katrin Ceja RBC 4.68 106/ul Normal 4.20-5.40 [facility] Comment on above: Performed By: #### C BC #### [facility] [address] [place] [address] Dr. Katrin Ceja WBC 10.8 103/ul Normal 4.0-11.0 [facility] Comment on above: Performed By: #### C BC #### [facility] [address] [place] [address] Dr. Katrin Ceja GLYCOHEMOGLOBIN A1Con 2021 ADA RECOMMENDATION ADA THERAPEUTIC TARG ET 6.0 - 7.0 ACTION SUGGESTED > 7.0 Normal [facility] Comment on above: Performed By: #### C BC #### [facility] [address] [place] [address] Dr. Katrin Ceja Glucose [Mass/Vol] 105 mg/dL Normal [facility] Comment on above: Performed By: #### C BC #### [facility] [address] [place] [address] Dr. Katrin Ceja HbA1c (Bld) [Mass fraction] 5.3 % Normal <=6.0 [facility] Comment on above: Performed By: #### C BC #### [facility] [address] [place], [place] [address] Dr. Katrin Ceja LIPID PROFILEon 07-18-2021 CHOL-HDL RATIO NORM SEE BELOW Normal [facility] Comment on above: Result Comment: 3.3 - 4.4 LOW RISK 4.4 - 7.1 AVERAGE RISK 7.1 - 11.0 MODERATE RISK >11.0 HIGH RISK Performed By: #### L IPID, CMP #### [facility] [address] [address] [address] Katrin Ceja Cholesterol [Mass/Vol] 302 mg/dL Critically high <=200 [facility] Comment on above: Performed By: #### L IPID, CMP #### [facility] [address] [address] [address] Katrin Ceja Cholesterol in HDL [Mass/Vol] 39 mg/dL Normal [facility] Comment on above: Performed By: #### L IPID, CMP #### [facility] [address] [address] [address] Katrin Ceja Cholesterol in LDL [Mass/Vol] 207.0 mg/dL Normal [facility] Comment on above: Performed By: #### L IPID, CMP #### [facility] [address] [address] [address] Katrin Ceja Cholesterol.total/Chol esterol in HDL [Mass ratio] 7.7 {ratio} Normal [facility] Comment on above: Performed By: #### L IPID, CMP #### [facility] [address] [address] [address] Katrin Ceja HDL NORMAL > or = 60 mg/dl - LO W CARDIOVASCULAR RISK <40 mg/dl - HIGH CARDIOVASCULAR RISK Normal [facility] Comment on above: Performed By: #### L IPID, CMP #### [facility] [id number] Katrin Ceja LDL CALC NORMAL SEE BELOW Normal [facility] Comment on above: Result Comment: <100 mg/dl OPTIMAL 100 - 129 mg/dl NEAR OR ABOVE OPTIMAL 130 - 159 mg/dl BORDERLINE HIGH 160 - 189 mg/dl HIGH >190 mg/dl VERY HIGH Performed By: #### L IPID, CMP #### [facility] [address] [address] [address] Katrin Ceja Triglyceride [Mass/Vol] 280 mg/dL Critically high <=150 [facility] Comment on above: Performed By: #### L IPID, CMP #### [facility] [address] [address] [address] Katrin Ceja VLDL CALC 56.0 mg/dL Normal [facility] Comment on above: Performed By: #### L IPID, CMP #### [facility] [address] [address] [address] Katrin Ceja PROF 14(COMP METB)on 022 Albumin [Mass/Vol] 3.5 g/dL Normal 3.5-5.0 [facility] Comment on above: Performed By: #### L IPID, CMP #### [facility] [address] [place] [address] Dr. Katrin Ceja Albumin/Globulin [Mass ratio] 0.7 {ratio} Normal [facility] Comment on above: Performed By: #### L IPID, CMP #### [facility] [address] [place] [address] Dr. Katrin Ceja ALP [Catalytic activity/Vol] 291 U/L Critically high 38-126 [facility] Comment on above: Performed By: #### L IPID, CMP #### [facility] [address] [place] [address] Dr. Katrin Ceja ALT [Catalytic activity/Vol] 174 U/L Critically high 9-52 [facility] Comment on above: Performed By: #### L IPID, CMP #### [facility] [address] [address] [address] Katrin Ceja Anion gap [Moles/Vol] 15.3 mmol/L Normal [facility] Comment on above: Performed By: #### L IPID, CMP #### [facility] [address] [place] [address] Dr. Katrin Ceja AST [Catalytic activity/Vol] 97 U/L Critically high 14-36 [facility] Comment on above: Performed By: #### L IPID, CMP #### [facility] [address] [address] [address] Katrin Ceja Bilirubin [Mass/Vol] 0.4 mg/dL Normal 0.2-1.3 [facility] Comment on above: Performed By: #### L IPID, CMP #### [facility] [address] [place] [address] Dr. Katrin Ceja Calcium [Mass/Vol] 9.3 mg/dL Normal 8.4-10.2 [facility] Comment on above: Performed By: #### L IPID, CMP #### [facility] [address] [place] [address] Dr. Katrin Ceja Chloride [Moles/Vol] 99 mmol/L Normal 98-107 [facility] Comment on above: Performed By: #### L IPID, CMP #### [facility] [address] [place] [address] Dr. Katrin Ceja CO2 [Moles/Vol] 24.1 mmol/L Normal 22.0-30.0 [facility] Comment on above: Performed By: #### L IPID, CMP #### [facility] [address] [place] [address] Dr. Katrin Ceja Creatinine [Mass/Vol] 0.65 mg/dL Normal 0.52-1.04 [facility] Comment on above: Performed By: #### L IPID, CMP #### [facility] [address] [place] [address] Dr. Katrin Ceja EGFR-AF CYMRAES >60 Normal >=60 [facility] Comment on above: Performed By: #### L IPID, CMP #### [facility] [address] [place] [address] Dr. Katrin Ceja EGFR-NON AF CYMRAES >60 Normal >=60 [facility] Comment on above: Performed By: #### L IPID, CMP #### [facility] [address] [place] [address] Dr. Katrin Ceja Globulin (S) [Mass/Vol] 5.0 g/dL Normal [facility] Comment on above: Performed By: #### L IPID, CMP #### [facility] [address] [address] [address] Katrin Ceja Glucose [Mass/Vol] 86 mg/dL Normal 74-106 [facility] Comment on above: Performed By: #### L IPID, CMP #### [facility] [address] [place] [address] Dr. Katrin Ceja Potassium [Moles/Vol] 4.4 mmol/L Normal 3.4-5.0 [facility] Comment on above: Performed By: #### L IPID, CMP #### [facility] [address] [address] [address] Katrin Ceja Protein [Mass/Vol] 8.5 g/dL Critically high 6.1-8.2 [facility] Comment on above: Performed By: #### L IPID, CMP #### [facility] [address] [address] [address] Katrin Ceja Sodium [Moles/Vol] 134 mmol/L Critically low 137-145 [facility] Comment on above: Performed By: #### L IPID, CMP #### [facility] [address] [place] [address] Dr. Katrin Ceja Urea nitrogen [Mass/Vol] 8.0 mg/dL Normal 7.0-17.0 [facility] Comment on above: Performed By: #### L IPID, CMP #### [facility] [address] [place] [address] Dr. Katrin Ceja Urea nitrogen/Creatinine [Mass ratio] 12.3 mg/mg Normal [facility] Comment on above: Performed By: #### L IPID, CMP #### [facility] [address] [address] [address] Katrin Ceja AMYLASEon 05-01-2021 AMYL <30 Critically low 31-110 [facility] Comment on above: Performed By: #### P REG #### [facility] [address] [place] [address] Dr. Katrin Ceja CBC AUTO DIFFon 05-01-2021 BASO # 0.0 103/ul Normal 0.0-0.1 [facility] Comment on above: Performed By: #### L IPID, CMP #### [facility] [address] [place] [address] Dr. Katrin Ceja Basophils/100 WBC (Bld) 0.3 % Normal 0.2-2.0 [facility] Comment on above: Performed By: #### L IPID, CMP #### [facility] [address] [place] [address] Dr. Katrin Ceja EO # 0.1 103/ul Normal 0.0-0.7 [facility] Comment on above: Performed By: #### L IPID, CMP #### [facility] [address] [place] [address] Dr. Katrin Ceja Eosinophils/100 WBC (Bld) 0.4 % Critically low 0.9-7.0 [facility] Comment on above: Performed By: #### L IPID, CMP #### [facility] [address] [place] [address] Dr. Katrin Ceja Erythrocyte distribution width (RBC) [Ratio] 13.0 % Normal 11.0-15.0 [facility] Comment on above: Performed By: #### L IPID, CMP #### [facility] [address] [place] [address] Dr. Katrin Ceja Hematocrit (Bld) [Volume fraction] 37.7 % Normal 36.0-48.0 [facility] Comment on above: Performed By: #### L IPID, CMP #### [facility] [address] [place] [address] Dr. Katrin Ceja Hemoglobin (Bld) [Mass/Vol] 12.5 g/dL Normal 12.0-16.0 [facility] Comment on above: Performed By: #### L IPID, CMP #### [facility] [address] [place] [address] Dr. Katrin Ceja IG # 0.09 10e3/ul Critically high 0.00-0.03 [facility] Comment on above: Performed By: #### L IPID, CMP #### [facility] [address] [address] [address] Katrin Ceja IG % 0.6 % Critically high 0.0-0.5 [facility] Comment on above: Performed By: #### L IPID, CMP #### [facility] [address] [address] [address] Katrin Ceja LYMPH # 1.9 103/ul Normal 1.2-3.8 [facility] Comment on above: Performed By: #### L IPID, CMP #### [facility] [address] [address] [address] Katrin Ceja Lymphocytes/100 WBC (Bld) 12.1 % Critically low 20.5-60.0 [facility] Comment on above: Performed By: #### L IPID, CMP #### [facility] [address] [place] [address] Dr. Katrin Ceja MANUAL DIFF REQ NO Normal [facility] Comment on above: Performed By: #### L IPID, CMP #### [facility] [address] [place] [address] Dr. Katrin Ceja MCH (RBC) [Entitic mass] 28.8 pg Normal 26.7-34.0 [facility] Comment on above: Performed By: #### L IPID, CMP #### [facility] [address] [place] [address] Dr. Katrin Ceja MCHC (RBC) [Mass/Vol] 33.2 g/dL Normal 29.9-35.2 [facility] Comment on above: Performed By: #### L IPID, CMP #### [facility] [address] [address] [address] Katrin Ceja MCV (RBC) [Entitic vol] 86.9 fL Normal 81.0-99.0 [facility] Comment on above: Performed By: #### L IPID, CMP #### [facility] [address] [address] [address] Katrin Ceja MONO # 1.1 103/ul Critically high 0.3-0.8 [facility] Comment on above: Performed By: #### L IPID, CMP #### [facility] [address] [address] [address] Katrin Ceja Monocytes/100 WBC (Bld) 7.1 % Normal 1.7-12.0 [facility] Comment on above: Performed By: #### L IPID, CMP #### [facility] [address] [place] [address] Dr. Katrin Ceja NEUT # 12.3 103/ul Critically high 1.4-6.5 [facility] Comment on above: Performed By: #### L IPID, CMP #### [facility] [address] [place] [address] Dr. Katrin Ceja Neutrophils/100 WBC (Bld) 79.5 % Critically high 43.0-75.0 [facility] Comment on above: Performed By: #### L IPID, CMP #### [facility] [address] [place] [address] Dr. Katrin Ceja Platelet mean volume (Bld) [Entitic vol] 8.7 fL Critically low 9.5-13.5 [facility] Comment on above: Performed By: #### L IPID, CMP #### [facility] [address] [place] [address] Dr. Katrin Ceja PLT 329 103/ul Normal 150-450 [facility] Comment on above: Performed By: #### L IPID, CMP #### [facility] [address] [place] [address] Dr. Katrin Ceja RBC 4.34 106/ul Normal 4.20-5.40 [facility] Comment on above: Performed By: #### L IPID, CMP #### [facility] [address] [place] [address] Dr. Katrin Ceja WBC 15.5 103/ul Critically high 4.0-11.0 [facility] Comment on above: Performed By: #### L IPID, CMP #### [facility] [address] [place] [address] ABD/PELV W CONon [...] by: HILDA RAHMAN Date: 2021-05-01 20:30 Normal [facility] LIPASEon 05-01-2021 Lipase [Catalytic activity/Vol] 64.0 U/L Normal 23.0-300.0 [facility] Comment on above: Performed By: #### P REG #### [facility] [address] [address] [address] Katrin Ceja LIVER PROFILEon 05-01-2021 Albumin [Mass/Vol] 3.3 g/dL Critically low 3.5-5.0 [facility] Comment on above: Performed By: #### L IPID, CMP #### [facility] [address] [address] [address] Katrin Ceja Albumin/Globulin [Mass ratio] 0.6 {ratio} Normal [facility] Comment on above: Performed By: #### L IPID, CMP #### [facility] [address] [address] [address] Katrin Ceja ALP [Catalytic activity/Vol] 412 U/L Critically high 38-126 [facility] Comment on above: Performed By: #### L IPID, CMP #### [facility] [address] [address] [address] Katrin Ceja ALT [Catalytic activity/Vol] 124 U/L Critically high 9-52 [facility] Comment on above: Performed By: #### L IPID, CMP #### [facility] [address] [address] [address] Katrin Ceja AST [Catalytic activity/Vol] 61 U/L Critically high 14-36 [facility] Comment on above: Performed By: #### L IPID, CMP #### [facility] [address] [address] [address] Katrin Ceja BILI, CONJUGATED 0.2 mg/dL Normal 0.0-0.3 [facility] Comment on above: Performed By: #### L IPID, CMP #### [facility] [address] [address] [address] Katrin Ceja Bilirubin [Mass/Vol] 0.4 mg/dL Normal 0.2-1.3 [facility] Comment on above: Performed By: #### L IPID, CMP #### [facility] [address] [address] [address] Katrin Ceja Globulin (S) [Mass/Vol] 5.1 g/dL Normal [facility] Comment on above: Performed By: #### L IPID, CMP #### [facility] [address] [address] [address] Katrin Ceja Protein [Mass/Vol] 8.4 g/dL Critically high 6.1-8.2 [facility] Comment on above: Performed By: #### L IPID, CMP #### [facility] [address] [place] [address] Dr. Katrin Ceja PREG HCG QUALon 05-01-2021 , QUAL Negative Normal NEGATIVE [facility] Comment on above: Performed By: #### P REG #### [facility] [address] [place] [address] Dr. Katrin Ceja PROF CHEM 8 (BAS METB)on Anion gap [Moles/Vol] 17.1 mmol/L Normal [facility] Comment on above: Performed By: #### P REG #### [facility] [address] [place] [address] Dr. Katrin Ceja Calcium [Mass/Vol] 8.9 mg/dL Normal 8.4-10.2 [facility] Comment on above: Performed By: #### P REG #### [facility] [address] [place] [address] Dr. Katrin Ceja Chloride [Moles/Vol] 100 mmol/L Normal 98-107 [facility] Comment on above: Performed By: #### P REG #### [facility] [address] [place] [address] Dr. Katrin Ceja CO2 [Moles/Vol] 21.1 mmol/L Critically low 22.0-30.0 [facility] Comment on above: Performed By: #### P REG #### [facility] [address] [place] [address] Dr. Katrin Ceja Creatinine [Mass/Vol] 0.78 mg/dL Normal 0.52-1.04 [facility] Comment on above: Performed By: #### P REG #### [facility] [address] [place] [address] Dr. Katrin Ceja EGFR-AF CYMRAES >60 Normal >=60 [facility] Comment on above: Performed By: #### P REG #### [facility] [address] [place] [address] Dr. Katrin Ceja EGFR-NON AF CYMRAES >60 Normal >=60 [facility] Comment on above: Performed By: #### P REG #### [facility] [address] [address] [address] Katrin Ceja Glucose [Mass/Vol] 97 mg/dL Normal 74-106 [facility] Comment on above: Performed By: #### P REG #### [facility] [address] [address] [address] Katrin Ceja Potassium [Moles/Vol] 4.2 mmol/L Normal 3.4-5.0 [facility] Comment on above: Performed By: #### P REG #### [facility] [address] [place] [address] Dr. Katrin Ceja Sodium [Moles/Vol] 134 mmol/L Critically low 137-145 [facility] Comment on above: Performed By: #### P REG #### [facility] [address] [address] [address] Katrin Ceja Urea nitrogen [Mass/Vol] 6.0 mg/dL Critically low 7.0-17.0 [facility] Comment on above: Performed By: #### P REG #### [facility] [address] [place] [address] Dr. Katrin Ceja Urea nitrogen/Creatinine [Mass ratio] 7.7 mg/mg Normal [facility] Comment on above: Performed By: #### P REG #### [facility] [address] [address] [address] Katrin Ceja CBC AUTO DIFFon 04-29-2021 BASO # 0.1 103/ul Normal 0.0-0.1 [facility] Comment on above: Performed By: #### L IPID, CMP #### [facility] [address] [address] [address] Katrin Ceja Basophils/100 WBC (Bld) 0.4 % Normal 0.2-2.0 [facility] Comment on above: Performed By: #### L IPID, CMP #### [facility] [address] [place] [address] Dr. Katrin Ceja EO # 0.2 103/ul Normal 0.0-0.7 [facility] Comment on above: Performed By: #### L IPID, CMP #### [facility] [address] [place] [address] Dr. Katrin Ceja Eosinophils/100 WBC (Bld) 1.7 % Normal 0.9-7.0 [facility] Comment on above: Performed By: #### L IPID, CMP #### [facility] [address] [place] [address] Dr. Katrin Ceja Erythrocyte distribution width (RBC) [Ratio] 12.9 % Normal 11.0-15.0 [facility] Comment on above: Performed By: #### L IPID, CMP #### [facility] [address] [place] [address] Dr. Katrin Ceja Hematocrit (Bld) [Volume fraction] 39.0 % Normal 36.0-48.0 [facility] Comment on above: Performed By: #### L IPID, CMP #### [facility] [address] [place] [address] Dr. Katrin Ceja Hemoglobin (Bld) [Mass/Vol] 12.9 g/dL Normal 12.0-16.0 [facility] Comment on above: Performed By: #### L IPID, CMP #### [facility] [address] [place] [address] Dr. Katrin Ceja IG # 0.08 10e3/ul Critically high 0.00-0.03 [facility] Comment on above: Performed By: #### L IPID, CMP #### [facility] [address] [place] [address] Dr. Katrin Ceja IG % 0.6 % Critically high 0.0-0.5 [facility] Comment on above: Performed By: #### L IPID, CMP #### [facility] [address] [address] [address] Katrin Ceja LYMPH # 3.2 103/ul Normal 1.2-3.8 [facility] Comment on above: Performed By: #### L IPID, CMP #### [facility] [address] [place] [address] Dr. Katrin Ceja Lymphocytes/100 WBC (Bld) 24.4 % Normal 20.5-60.0 [facility] Comment on above: Performed By: #### L IPID, CMP #### [facility] [address] [place] [address] Dr. Katrin Ceja MANUAL DIFF REQ NO Normal [facility] Comment on above: Performed By: #### L IPID, CMP #### [facility] [address] [place] [address] Dr. Katrin Ceja MCH (RBC) [Entitic mass] 29.1 pg Normal 26.7-34.0 [facility] Comment on above: Performed By: #### L IPID, CMP #### [facility] [address] [place] [address] Dr. Katrin Ceja MCHC (RBC) [Mass/Vol] 33.1 g/dL Normal 29.9-35.2 [facility] Comment on above: Performed By: #### L IPID, CMP #### [facility] [address] [place] [address] Dr. Katrin Ceja MCV (RBC) [Entitic vol] 88.0 fL Normal 81.0-99.0 [facility] Comment on above: Performed By: #### L IPID, CMP #### [facility] [address] [place] [address] Dr. Katrin Ceja MONO # 1.2 103/ul Critically high 0.3-0.8 [facility] Comment on above: Performed By: #### L IPID, CMP #### [facility] [address] [place] [address] Dr. Katrin Ceja Monocytes/100 WBC (Bld) 9.2 % Normal 1.7-12.0 [facility] Comment on above: Performed By: #### L IPID, CMP #### [facility] [address] [address] [address] Katrin Ceja NEUT # 8.3 103/ul Critically high 1.4-6.5 [facility] Comment on above: Performed By: #### L IPID, CMP #### [facility] [address] [address] [address] Katrin Ceja Neutrophils/100 WBC (Bld) 63.7 % Normal 43.0-75.0 [facility] Comment on above: Performed By: #### L IPID, CMP #### [facility] [address] [address] [address] Katrin Ceja Platelet mean volume (Bld) [Entitic vol] 9.2 fL Critically low 9.5-13.5 [facility] Comment on above: Performed By: #### L IPID, CMP #### [facility] [address] [place] [address] Dr. Katrin Ceja PLT 384 103/ul Normal 150-450 [facility] Comment on above: Performed By: #### L IPID, CMP #### [facility] [address] [place] [address] Dr. Katrin Ceja RBC 4.43 106/ul Normal 4.20-5.40 [facility] Comment on above: Performed By: #### L IPID, CMP #### [facility] [address] [place] [address] Dr. Katrin Ceja WBC 13.1 103/ul Critically high 4.0-11.0 [facility] Comment on above: Performed By: #### L IPID, CMP #### [facility] [address] [place] [address] ABD/PELV W CONon 04-29-[address] ABD/PELV W CON EXAMINATION: CT [...] Lorenzo LAN Date: 2021-04-29 02:49 Normal [facility] LACTATE/LACTIC ACIDon 2020 Lactate [Moles/Vol] 1.2 mmol/L Normal 0.7-2.0 [facility] Comment on above: Performed By: #### C BC #### [facility] [address] [address] [address] Katrin Ceja PROF 14(COMP METB)on 021 Albumin [Mass/Vol] 3.4 g/dL Critically low 3.5-5.0 [facility] Comment on above: Performed By: #### C BC #### [facility] [address] [address] [address] Katrin Ceja Albumin/Globulin [Mass ratio] 0.7 {ratio} Normal [facility] Comment on above: Performed By: #### C BC #### [facility] [address] [address] [address] Katrin Ceja ALP [Catalytic activity/Vol] 359 U/L Critically high 38-126 [facility] Comment on above: Performed By: #### C BC #### [facility] [address] [address] [address] Katrin Ceja ALT [Catalytic activity/Vol] 193 U/L Critically high 9-52 [facility] Comment on above: Performed By: #### C BC #### [facility] [address] [place] [address] Dr. Katrin Ceja Anion gap [Moles/Vol] 13.3 mmol/L Normal [facility] Comment on above: Performed By: #### C BC #### [facility] [address] [place] [address] Dr. Katrin Ceja AST [Catalytic activity/Vol] 115 U/L Critically high 14-36 [facility] Comment on above: Performed By: #### C BC #### [facility] [address] [place] [address] Dr. Katrin Ceja Bilirubin [Mass/Vol] 0.5 mg/dL Normal 0.2-1.3 [facility] Comment on above: Performed By: #### C BC #### [facility] [address] [place] [address] Dr. Katrin Ceja Calcium [Mass/Vol] 9.5 mg/dL Normal 8.4-10.2 [facility] Comment on above: Performed By: #### C BC #### [facility] [address] [place] [address] Dr. Katrin Ceja Chloride [Moles/Vol] 101 mmol/L Normal 98-107 [facility] Comment on above: Performed By: #### C BC #### [facility] [address] [place] [address] Dr. Katrin Ceja CO2 [Moles/Vol] 23.7 mmol/L Normal 22.0-30.0 [facility] Comment on above: Performed By: #### C BC #### [facility] [address] [address] [address] Katrin Ceja Creatinine [Mass/Vol] 0.83 mg/dL Normal 0.52-1.04 [facility] Comment on above: Performed By: #### C BC #### [facility] [address] [address] [address] Katrin Ceja EGFR-AF CYMRAES >60 Normal >=60 [facility] Comment on above: Performed By: #### C BC #### [facility] [address] [place] [address] Dr. Kartin Ceja EGFR-NON AF CYMRAES >60 Normal >=60 [facility] Comment on above: Performed By: #### C BC #### [facility] [address] [place] [address] Dr. Katrin Ceja Globulin (S) [Mass/Vol] 5.1 g/dL Normal [facility] Comment on above: Performed By: #### C BC #### [facility] [address] [place] [address] Dr. Katrin Ceja Glucose [Mass/Vol] 102 mg/dL Normal 74-106 [facility] Comment on above: Performed By: #### C BC #### [facility] [address] [place] [address] Dr. Katrin Ceja Potassium [Moles/Vol] 4.0 mmol/L Normal 3.4-5.0 [facility] Comment on above: Performed By: #### C BC #### [facility] [address] [place] [address] Dr. Katrin Ceja Protein [Mass/Vol] 8.5 g/dL Critically high 6.1-8.2 [facility] Comment on above: Performed By: #### C BC #### [facility] [address] [place] [address] Dr. Katrin Ceja Sodium [Moles/Vol] 134 mmol/L Critically low 137-145 [facility] Comment on above: Performed By: #### C BC #### [facility] [address] [place], [place] [address] Dr. Katrin Ceja Urea nitrogen [Mass/Vol] 6.0 mg/dL Critically low 7.0-17.0 [facility] Comment on above: Performed By: #### C BC #### [facility] [address] [place], [place] [address] Dr. Katrin Ceja Urea nitrogen/Creatinine [Mass ratio] 7.2 mg/mg Normal [facility] Comment on above: Performed By: #### C BC #### [facility] [address] [place], [place] [address] Dr. Katrin Ceja XR CHEST 1 Von [...] by: HILDA GU Date: 2021-04-28 23:45 Normal [facility] Acetaminophen (Tylenol) Leve kit 03-22-2019 Acetaminophen [Mass/Vol] <10 Normal 10.0-30.[address] [facility] Comment on above: Performed By: #### 1 4581-3, 05251-7, 73268-0, 19551-9g0, 50260-0, 85665-2 #### [facility] [address] [place], [place] Alcohol (Ethanol) Levelon Ethanol [Mass/Vol] mg/dL Normal 0.00-0.[address] [facility] Comment on above: Performed By: #### 1 4581-3, 72248-7, 52942-5, 57677-5r1, 10601-5, 86974-6 #### [facility] [address] [place], [place] CBC with Differentialon 09-0 8-2019 Basophils (Bld) [#/Vol] 0.10 thou/mcL Normal 0.00-0.[address] [facility] Comment on above: Performed By: #### 5 7021-8 #### [facility] Basophils/100 WBC (Bld) 0.7 % Normal 0.0-2.[address] [facility] Comment on above: Performed By: #### 5 7021-8 #### [address] Eosinophils (Bld) [#/Vol] 0.40 thou/mcL Normal 0.00-0.[address] [facility] Comment on above: Performed By: #### 5 7021-8 #### [address] Eosinophils/100 WBC (Bld) 3.7 % Normal 0.0-7.[address] [facility] Comment on above: Performed By: #### 5 7021-8 #### [address] Erythrocyte distribution width (RBC) [Entitic vol] 12.6 % Normal 11.0-14.[address] [facility] Comment on above: Performed By: #### 5 7021-8 #### [address] Hematocrit (Bld) [Volume fraction] 38.5 % Normal 35.0-45.[address] [facility] Comment on above: Performed By: #### 5 7021-8 #### [address] Hemoglobin (Bld) [Mass/Vol] 13.3 g/dL Normal 12.0-16.[address] [facility] Comment on above: Performed By: #### 5 7021-8 #### [address] Lymphocytes (Bld) [#/Vol] 3.10 thou/mcL Normal 1.00-4.[address] [facility] Comment on above: Performed By: #### 5 7021-8 #### [facility] [address] [place], [place] Lymphocytes/100 WBC (Bld) 30.1 % Normal 22.0-44.[address] [facility] Comment on above: Performed By: #### 7021-8 #### [facility] [address] [place], [place] MCH (RBC) [Entitic mass] 30.8 Picograms Normal 27.0-34.[address] [facility] Comment on above: Performed By: #### 7021-8 #### [facility] [address] [place] [address] MCHC (RBC) [Mass/Vol] 34.7 g/dL Normal 32.0-36.0 Joy [facility] Comment on above: Performed By: #### 70-8 #### [address] MCV (RBC) [Entitic vol] 88.8 fL Normal 80.0-97.[address] [facility] Comment on above: Performed By: #### 7021-8 #### [address] Monocytes (Bld) [#/Vol] 1.10 thou/mcL High 0.00-0.[address] [facility] Comment on above: Performed By: #### 7021-8 #### [address] Monocytes/100 WBC (Bld) 10.4 % Normal 0.0-12.[address] [facility] Comment on above: Performed By: #### 7021-8 #### [facility] [address] [place], [place] Neutrophils (Bld) [#/Vol] 5.60 thou/mcL Normal 1.80-7.[address] [facility] Comment on above: Performed By: #### 7021-8 #### [facility] [address] [place], [place] Neutrophils/100 WBC (Bld) 55.1 % Normal 40.0-70.[address] [facility] Comment on above: Performed By: #### 5 7021-8 #### [facility] [address] [place], [place] Platelet mean volume (Bld) [Entitic vol] 7.5 fL Normal 6.2-12.[address] [facility] Comment on above: Performed By: #### 5 7021-8 #### [facility] [address] [place], [place] Platelets (Bld) [#/Vol] 280 thou/mcL Normal 142-[address] [facility] Comment on above: Performed By: #### 5 7021-8 #### [facility] [address] [place], [place] RBC (Bld) [#/Vol] 4.33 million/mcL Normal 3.80-5.10 [facility] Comment on above: Performed By: #### 5 7021-8 #### [facility] [address] [place], [place] WBC (Bld) [#/Vol] 10.2 thou/mcL Normal 4.6-10.2 [facility] Comment on above: Performed By: #### 5 7021-8 #### [facility] [address] [place], [place] Comprehensive Metabolic Pane kit 03-22-2019 Albumin [Mass/Vol] 4.2 g/dL Normal 3.5-4.[address] [facility] Comment on above: Performed By: #### 1 4581-3, 34358-5, 77698-8, 50472-8n7, 92048-4, 72322-2 #### [facility] [address] [place], [place] ALP [Catalytic activity/Vol] 96 Units/L High 32-[address] [facility] Comment on above: Performed By: #### 1 4581-3, 69319-4, 53009-6, 19969-1w2, 13480-4, 04483-7 #### [facility] [address] [place], [place] ALT [Catalytic activity/Vol] 25 Units/L Normal 14-[address] [facility] Comment on above: Performed By: #### 1 4581-3, 48723-6, 47109-8, 94494-0n5, 24078-3, 62960-1 #### [facility] [address] [place], [place] Anion gap [Moles/Vol] 9.0 mmol/L Normal 6.0-18.0 [facility] Comment on above: Performed By: #### 1 4581-3, 41794-6, 01593-1, 87185-6u0, 67674-3, 29259-3 #### [facility] [address] [place], [place] AST [Catalytic activity/Vol] 24 Units/L Normal 15-[address] [facility] Comment on above: Performed By: #### 1 4581-3, 70818-5, 46236-4, 68811-8q4, 16685-2, 21058-1 #### [place] [address] [place], [place] Bilirubin [Mass/Vol] 0.5 mg/dL Normal 0.3-1.2 [facility] Comment on above: Performed By: #### 1 4581-3, 57694-8, 08749-3, 02486-6a5, 53873-1, 82519-8 #### [facility] [address] [place], [place] Calcium [Mass/Vol] 8.9 mg/dL Normal 8.9-10.[address] [facility] Comment on above: Performed By: #### 1 4581-3, 65731-6, 65490-5, 51045-9p7, 34469-7, 47770-5 #### [facility] [address] [place], [place] Chloride [Moles/Vol] 107 mmol/L Normal 98-107 [facility] Comment on above: Performed By: #### 1 4581-3, 70716-7, 66709-9, 54276-6i4, 75994-7, 56091-5 #### [facility] [address] [place], [place] CO2 [Moles/Vol] 23 mmol/L Normal 22-32 [facility] Comment on above: Performed By: #### 1 4581-3, 93903-9, 03815-1, 24070-2v7, 10178-7, 92315-2 #### [facility] [address] [place], [place] Creatinine [Mass/Vol] 0.68 mg/dL Normal 0.60-1.30 Joy [facility] Comment on above: Performed By: #### 1 4581-3, 72949-8, 48101-7, 47620-8c9, 70295-3, 99635-5 #### [facility] [address] [place], [place] Glucose [Mass/Vol] 90 mg/dL Normal 70-[address] [facility] Comment on above: Result Comment: U pdated ADA Reference Range A normal fasting glucose concentration is less than 100 mg/dL. An impaired fasting glucose concentration is 100-125 mg/dL. A provisional diagnosis of diabetes mellitus can be made when a fasting glucose concentration is greater than 125 mg/dL. Performed By: #### 1 4581-3, 64572-7, 74744-5, 37783-5o4, 92831-0, 03292-1 #### [facility] [address] [place], [place] Potassium [Moles/Vol] 3.4 mmol/L Low 3.6-5.1 Joy [facility] Comment on above: Performed By: #### 1 4581-3, 14461-4, 59685-5, 49718-3n3, 06258-4, 81181-0 #### [facility] [address] [place], [place] Protein [Mass/Vol] 7.4 g/dL Normal 6.1-7.[address] [facility] Comment on above: Performed By: #### 1 4581-3, 40254-4, 52967-5, 16593-8q8, 07812-0, 01185-7 #### [facility] [address] [place], [place] Sodium [Moles/Vol] 139 mmol/L Normal 136-[address] [facility] Comment on above: Performed By: #### 1 4581-3, 10376-8, 18930-2, 47187-2x6, 48924-0, 39158-3 #### [facility] [address] [place], [place] Urea nitrogen (BldV) [Mass/Vol] 17 mg/dL Normal 8-[address] [facility] Comment on above: Performed By: #### 1 4581-3, 13954-2, 74074-4, 51801-5u8, 07353-8, 34160-1 #### [facility] [address] [place], [place] Drug Abuse Screen 8 Urineon 03-22-2019 Barbiturates Screen Ql (U) Negative Normal [facility] Comment on above: Performed By: #### 1 2286-1 #### [facility] [address] [place], [place] Amphetamines Ql (U) Positive Abnormal [facility] Comment on above: Result Comment: Conf irmatory testing available upon request. Performed By: #### 1 2286-1 #### [facility] [address] [place], [place] Benzodiazepines cutoff Screen (U) [Mass/Vol] Negative Normal [facility] Comment on above: Performed By: #### 1 2286-1 #### [facility] [address] [place], [place] Cocaine Ql (U) Positive Abnormal [facility] Comment on above: Result Comment: Conf irmatory testing available upon request. Performed By: #### 1 2286-1 #### [facility] [address] [place], [place] Interpretation and review of laboratory results Negative Normal [facility] Comment on above: Performed By: #### 1 2286-1 #### [facility] [address] [place], [place] Methadone Screen Ql (U) Negative Normal NEGATIVE-N EGATIVE [facility] Comment on above: Performed By: #### 1 2286-1 #### [facility] [address] [place], [place] Opiates Screen Ql (U) Negative Normal Joy [facility] Comment on above: Result Comment: INTE [...] ONLY. Performed By: #### 1 2286-1 #### [place] [address] [place], [place] Tetrahydrocannabinol Screen Ql (U) Positive Abnormal [facility] Comment on above: Result Comment: Conf irmatory testing available upon request. Performed By: #### 1 2286-1 #### [place] [address] [place], [place] ED [facility] 03-[facility] ED [address] [address] Emergency Department Discharge Instructions JENNIFER [...] [facility] Name JENNIFER ENGLE MRN (COL)-[id number] PLEASE READ THE FOLLOWING REGARDING YOUR MEDICATIONS [...] doses are changed, or new medications (including dyoe-spq-hrjowft products) are added. If you have any [...] UNTIL YOU TALK TO YOUR DOCTOR None [address] [address] Emergency Department Discharge Instructions Name: JENNIFER ENGLE Current Date: 03/22/2019 19:32:22 : 1995 Primary Physician: Physician, No PCP We would like to thank you for choosing [facility] for your emergency medical needs. We examined [...] health of those around you. [facility] offers many resources to help with smoking cessation. Call the [place] Tobacco Quit Line at 9-193-FQMM-NOW ( ). High blood pressure: Your screening [...] deadly infections. Discuss this with your child's indigo vat tender cloth, or Public Health Department. Your family practice doctor can determine if you need pneumonia or flu vaccine. The [facility] Department can be reached at . Substance Abuse Program: Concerns with addiction to alcohol, benzodiazepines (Ativan or Xanax) and Opiates (Heroin, Percocet, OxyContin, Methadone or Fentanyl)? [facility] offers an inpatient Substance Abuse Program to help treat the symptoms associated with medical detoxification of addictive substances. The new program offers care for non- adults (18 and older) looking to break the chain to addictive chemicals. The Substance Abuse Program is a voluntary inpatient admission and it starts with a pre-screening phone call to a bilingual social worker. During the call, goals and objectives for recovery and how the patient will transition to outpatient care will be established. Please call [phone] to get help today. Domestic Violence: If you are a victim of domestic violence (physical, verbal, or emotional), you are not alone. Discuss this with your physician or a friend and call the [place] Domestic Violence Hotline or [place] Domestic Violence Hotline for assistance and support. [...] physician, call the Physician Referral Line at (195) 714-LCJV (2126). Suicide Hotline: Your mental and emotional well-being is important. If you are in a mental health crisis or are having thoughts of suicide, please call the nationwide suicide hotline, anytime day or night, at 1-172-672-QJOW (0000). Community Nursery Nurse: You may be contacted by your local fire department for a follow up visit from a community lag screwer. The community lag screwer can help with a home safety check; follow up care, and general home care management. Pharmacy Information: Below is a list of 24 hour pharmacies that we are aware of. We suggest that you call the specific pharmacy for their hours before traveling to a location. Hours may vary on holidays. [facility] [place] [address] [place], [place] [phone] [facility] [facility] [place], [place] [phone] [address] [place], [place] 0[address] [phone] [address] [place], [place] [phone] [address] [place], [place] [phone] [address] [place], [place] [phone] [address] [place], [place] [phone] Take all medications as directed. If you need prescription assistance, contact the following agencies: ?? Partnership for Prescription Assistance at or www.pparx.org ?? [place]' Best Rx at or www.popADbestrx.org ?? www.[facility]eves.[facility] is a site with many valuable coupons Patient Education Materials JENNIFER ENGLE has been given the following patient education materials: <><><><><><><><><><><><>< ><><><><><><><><><><><><> <> Patient Visit Summary Signature JENNIFER ENGLE has been given the following list of patient education materials, prescriptions and follow-up instructions: I, JENNIFER ENGLE, have received the above patient education materials/instructions and have verbalized understanding: Date Time Patient Signature Date Time Provider Signature Normal [facility] GFRaaon 03-22-2019 GFR/1.73 sq M predicted among blacks MDRD (S/P/Bld) [Vol rate/Area] mL/min/{1.73_m2} [facility] Comment on above: Result Comment: The MDRD equation has not been validated for those over 70 years, women, patients with serious co-morbid conditions, or with extremes of body size, muscle mass of nutritional status. Performed By: #### 1 4581-3, 00962-8, 43802-8, 99952-9j6, 64551-9, 88216-1 #### [facility] [address] [place], [place] GFRbbon 03-22-2019 GFR/1.73 sq M predicted among non-blacks MDRD (S/P/Bld) [Vol rate/Area] mL/min/{1.73_m2} [facility] Comment on above: Performed By: #### 1 4581-3, 54903-3, 13406-1, 46171-3u0, 07839-7, 89930-2 #### [facility] [address] [place], [place] Test Urineon 03-22 HCG ( test) Ql (U) Negative [facility] Comment on above: Performed By: #### 2 106-3 #### [facility] [address] [place], [place] Salicylate Levelon 9 Salicylates [Mass/Vol] mg/dL Normal 2.8-30.0 Mo [facility] Comment on above: Performed By: #### 1 4581-3, 12198-7, 71589-3, 22390-0z4, 71843-0, 59958-2 #### [facility] [address] [place], [place] Medication Managementon 0 Medication Management [id number]#1.00OTGTIF F Normal [facility] ED Clinical Summaryon 2017 ED Clinical Summary [facility] - Emergency [id number] [place] [id number] ed Clinical SummaryPERSON INFORMATIONName: JENNIFER ENGLE Age: 22 Years Sex: FEMALEDOB: [birth year] MRN: Acct#:Visit Reason: Dental pain; Dental pain; DENTAL PAIN Arrival: 04/11/18 20:21:00 Discharge: 04/11/18 20:55:00LOS: 000 00:34 Check In: 04/11/18 20:21:00 Checkout:04/11/18 20:55:00Address:[address] [address]SAX: TAI WATTS INFORMATIONProvider Role Assigned UnassignedAlistair Max MD ED Provider 04/11/18 20:21:45Mary Jane Lyles [...] 04/11/18 20:29:00.Dental caries, dental painHistory of Present Cbowjcp42-wxgs-ohm white female presents to the emergency room [...] her poor dental state..Impression and PlanDiagnosisDental caries (COK20-WI K02.9, Discharge, Medical)Pain, dental (LQP70-SP K08.89, Discharge, Medical)PlanCondition: Improved, Stable.Disposition: Discharged: to home.Prescriptions: Launch prescriptionsPharmacy:tra MADol 50 mg oral tablet (Prescribe): 50 mg = 1 tab(s), PO, q4hr, PRN: as needed for pain, 12 tab(s), 0 Refill(s)amoxicillin 500 mg oral capsule (Prescribe): 1,000 mg = 2 cap(s), PO, BID, 40 cap(s), 0 Refill(s).Patient was given the following educational materials: Dental Pain, Vmtd-lp-Lasq, Dental Caries, Adult, Ralj-jl-Cfeq, Dental Caries, Adult, Rrbc-hx-Kodj, Dental Pain, Dxrp-wa-Lwcr.Follow up with: SOLOMON WATTS Within 3 to 5 days.Counseled: Patient, Regarding diagnosis, Regarding treatment plan, Regarding prescription, Patient indicated understanding of instructions.DISCHARGE INFORMATION:Discharge Disposition: HomeDischarge Location: HomePATIENT EDUCATION INFORMATIONInstructions: Dental Caries, Adult, Stgc-ka-Bule; Dental Pain, Jjpg-dx-AblbOxuqrf-Up:Wit h: Address: When:SOLOMON WATTS [facility] [address] [id number] [facility] (1) Within 3 to 5 daysDIAGNOSIS:Dental caries; Dental pain; Pain, dentalPatient Understands: Yes - Patient/family/caregiver verbalizes understanding of instructions givenComment: [facility] ED Note - Physicianon 2017 ED Note - Physician Patient: DOMINIC ENGLE : 22 years Sex: FEMALE : [birth year]Associated Diagnoses: Dental caries; Pain, dentalAuthor: Alistair Max InformationTime seen: Date & time 04/11/18 20:29:00.Dental caries, dental painHistory of Present Ddvykdc10-ksie-ldo white female presents to the emergency room [...] her poor dental state..Impression and PlanDiagnosisDental caries (UQP60-WM K02.9, Discharge, Medical)Pain, dental (OTF41-ML K08.89, Discharge, Medical)PlanCondition: Improved, Stable.Disposition: Discharged: to home.Prescriptions: Launch prescriptionsPharmacy:tra MADol 50 mg oral tablet (Prescribe): 50 mg = 1 tab(s), PO, q4hr, PRN: as needed for pain, 12 tab(s), 0 Refill(s)amoxicillin 500 mg oral capsule (Prescribe): 1,000 mg = 2 cap(s), PO, BID, 40 cap(s), 0 Refill(s).Patient was given the following educational materials: Dental Pain, Vezh-gd-Ijtu, Dental Caries, Adult, Ocwu-fd-Mpyy, Dental Caries, Adult, Tktd-tx-Aqtr, Dental Pain, Mlnv-yo-Qeyv.Follow up with: SOLOMON WATTS Within 3 to 5 days.Counseled: Patient, Regarding diagnosis, Regarding treatment plan, Regarding prescription, Patient indicated understanding of instructions.[Electronica lly Signed on: 04/11/2018 20:42 EDT] Alistair Salomon MD[Verified on: 04/11/2018 20:42 EDT] Alistair Salomon MD [facility] ED Patient Education Noteon 04-11-2018 ED [...] mouth and teeth. This keeps them healthy.? [employer] your teeth 2 times a day. Use toothpaste with fluoride in it.? Floss your teeth once a day.? If your dentist prescribed an antibiotic medicine to treat an infection, take it as told. Do not stop taking the antibiotic even if your condition gets better.? Keep all follow-up visits as told by your dentist. This is important. This includes all cleanings.Preventing dental caries? [employer] your teeth every morning and night. Use [...] Reviewed: 03/17/2017Kenny Interactive Patient Education ? 2017 [employer].Dental PainDental pain may be caused by many [...] Reviewed: 06/27/2015[employer] Patient Education ? 2018 [employer]. Normal [facility] ED Patient Summaryon 018 ED Patient Summary [facility] - Emergency [id number] [place] [id number] pATIENT DISCHARGE INSTRUCTIONSPatient InformationName: JENNIFER ENGLE Age: 22 YearsDate of : [birth year]MRN: [id number] Visit: Dental pain; Dental pain; DENTAL PAINArrival Time: 04/11/18 20:21:00Phone: [facility] Physician: Maryam WATTS Physician: Alistair Max MDComment:Visit Diagnosis:Diagnoses This Visit Dental caries (K02.9) Dental pain (K08.8) Dental pain ([id number]) Dental pain ([id number]) Pain, dental (K08.89)If you received any narcotics, [...] or sign any legal documentsWith: Address: When:[place] [address] Business (1) Within 3 to 5 daysMedication Information:The exam and treatment you received today in the [facility] Emergency Department were for an urgent problem and are not intended as complete care. It is important for you to follow up with a doctor, nurse practitioner, or physician?s or assistant for ongoing care. If your symptoms [...] number so we can reach you if necessary.[facility] Emergency Department has provided you with a complete list of medications post discharge. Please inform your strategic sourcing manager/provider of your visit and for further [...] mouth and teeth. This keeps them healthy.? [employer] your teeth 2 times a day. Use toothpaste with fluoride in it.? Floss your teeth once a day.? If your dentist prescribed an antibiotic medicine to treat an infection, take it as told. Do not stop taking the antibiotic even if your condition gets better.? Keep all follow-up visits as told by your dentist. This is important. This includes all cleanings.Preventing dental caries? [employer] your teeth every morning and night. Use [...] Reviewed: 03/17/2017Kenny Interactive Patient Education ? 2017 Elsevier Inc.Dental PainDental pain may be caused by [...] Reviewed: 06/27/2015Kenny Interactive Patient Education ? 2018 [employer]. Viruses or BacteriaWhat?s got you sick?Antibiotics [...] for Disease Control and Prevention March 2014 [facility] Vital Signs Date Time Vital Sign Value Performing Clinician Facility 03-19-2024 00:22-0400 Diastolic blood pressure 81 mm[Hg] [facility] 03-19-2024 00:22-0400 Heart rate 97 /min [facility] 03-19-2024 00:22-0400 Respiratory rate 18 /min [facility] 03-19-2024 00:22-0400 SaO2% (BldA) [Mass fraction] 98 % [facility] 03-19-2024 00:22-0400 Systolic blood pressure 113 mm[Hg] [facility] 03-18-2024 21:56-0400 Body temperature 98.2 [degF] [facility] 03-18-2024 21:54-0400 Body height 167.64 cm [facility] 03-18-2024 21:54-0400 Body weight 97.52 kg [facility] 03-05-2024 12:39-0400 Body height 167.64 cm [facility] 03-05-2024 12:39-0400 Body mass index (BMI) [Ratio] 37.1 kg/m2 [facility] 03-05-2024 12:39-0400 Body temperature 97.6 [degF] [facility] 03-05-2024 12:39-0400 Body weight 104.32 kg [facility] 03-05-2024 12:39-0400 Diastolic blood pressure 84 mm[Hg] [facility] 03-05-2024 12:39-0400 Heart rate 90 /min [facility] 03-05-2024 12:39-0400 Respiratory rate 18 /min [facility] 03-05-2024 12:39-0400 SaO2% (BldA) [Mass fraction] 99 % [facility] 03-05-2024 12:39-0400 Systolic blood pressure 118 mm[Hg] [facility] 05-07-2023 13:15-0400 Body height 167.64 cm Key Patel Other [facility] [employer] Other 05-07-2023 13:15-0400 Body mass index (BMI) [Ratio] 37.54 kg/m2 Key Patel Other [employer] Other 05-07-2023 13:15-0400 Body temperature 97.8 [degF] Key Patel Other [employer] Other 05-07-2023 13:15-0400 Body weight 105.51 kg Key Patel Other [employer] Other 05-07-2023 13:15-0400 Respiratory rate 18 /min Key Patel Other [employer] Other 05-07-2023 13:15-0400 SaO2% (BldA) [Mass fraction] 98 % Key Patel Other [employer] Other 11-08-2022 13:50-0400 Body height 167.64 cm Chase Saldana Other [employer] Other 11-08-2022 13:50-0400 Body mass index (BMI) [Ratio] 35.51 kg/m2 Gabrieldavie Les Other Command Information Other 11-08-2022 13:50-0400 Body weight 99.79 kg Chase Les Other Command Information Other 04-26-2022 11:55-0400 Body height 167.64 cm Autumn Restrepoault Other Command Information Other 04-26-2022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
--- NOTE | 2024-04-24 22:19 | ED.DENTAL1 ---
HPI - Dental/Oral General Chief complaint: Dental/Oral Stated complaint: DENTAL PAIN Time Seen by Provider: 04/24/24 22:02 Source: patient Mode of arrival: walk-in Limitations: no limitations History of Present Illness HPI Narrative: 28-year-old female presents to the emergency department for toothache. She is complaining of pain to her left mandibular third molar. She understands that she has many bad teeth and she states she is in the process of getting them all extracted. It is throbbing and severe and continuous since this time she has had it for a few days. No fever or difficulty breathing or swallowing. Related Data Home Medications ?Medication ?Instructions ?Recorded ?Confirmed oxcarbazepine 300 mg tablet 300 mg PO BID 11/26/23 04/24/24 alprazolam 0.5 mg tablet 0.5 mg PO DAILY PRN anxiety 04/24/24 04/24/24 bdyxjngesf-qziwcllwtefnj-yjuicecs 1 cap PO Q6H PRN pain 04/24/24 04/24/24 50 mg-300 mg-40 mg capsule cholecalciferol (vitamin D3) 10 04/24/24 mcg (400 unit) capsule (Vitamin D3) cyclobenzaprine 5 mg tablet 5 mg PO DAILY 04/24/24 04/24/24 rizatriptan 5 mg tablet 5 mg PO Q2H PRN migraine headache 04/24/24 04/24/24 Previous Rx's ?Medication ?Instructions ?Recorded acetaminophen 300 mg-codeine 30 mg 1 tab PO Q6H PRN pain 5 days #20 04/24/24 tablet tabs clindamycin HCl 300 mg capsule 300 mg PO Q6H 10 days #40 caps 04/24/24 ibuprofen 800 mg tablet 800 mg PO Q8H PRN pain #20 tabs 04/24/24 Allergies Allergy/AdvReac Type Severity Reaction Status Date / Time Penicillins Allergy Mild Hives Verified 04/24/24 22:09 latex Allergy Unknown Rash Verified 04/24/24 22:09 ibuprofen AdvReac Mild Gastrointestinal Verified 04/24/24 22:09 Upset Sulfa (Sulfonamide AdvReac Mild Hives Verified 04/24/24 22:09 Antibiotics) Review of Systems ROS Narrative A ten point review of systems is negative except as noted above. PFSH PFSH Social History (Reviewed 11/26/23 @ 21:20 by ROSE MARY Downey Smoking status: Former smoker Little interest or pleasure in doing things: not at all Feeling down, depressed, or hopeless: not at all Exam Narrative Exam Narrative: Nurses note and vital signs reviewed and patient is not hypoxic. General: The patient appears well and in no apparent distress. Patient is resting comfortably on cart. Skin: Warm, dry, no pallor noted. There is no rash noted. Head: Normocephalic, atraumatic Eye: Normal conjunctiva, no drainage Ears, Nose, Mouth, and Throat: oral mucosa is moist. Nares patent. She has significant dental caries in the left mandibular third molar. No bleeding or pus present. First and second molars have already been extracted. No gingival swelling. No swelling to the floor of her mouth. Cardiovascular: Regular Rate and Rhythm Respiratory: Patient is in no distress, no accessory muscle use, lungs are clear to auscultation, no wheezing, rales or rhonchi Back: non-tender GI: Soft and nontender Musculoskeletal: No joint swelling Neurological: Alert and oriented Psychiatric: Cooperative Constitutional Vital Signs, click to edit/add: Last Vital Signs Temp 98.9 F 04/24/24 22:03 Pulse 111 H 04/24/24 22:03 Resp 16 04/24/24 22:03 BP 126/104 H 04/24/24 22:03 Pulse Ox 99 04/24/24 22:03 O2 Del Method Room Air 04/24/24 22:03 Course Vital Signs Vital signs: Vital Signs Temperature 98.9 F 04/24/24 22:03 Pulse Rate 111 H 04/24/24 22:03 Respiratory Rate 16 04/24/24 22:03 Blood Pressure 126/104 H 04/24/24 22:03 Pulse Oximetry 99 04/24/24 22:03 Oxygen Delivery Method Room Air 04/24/24 22:03 Temperature 98.9 F 04/24/24 22:03 Pulse Rate 111 H 04/24/24 22:03 Respiratory Rate 16 04/24/24 22:03 Blood Pressure 126/104 H 04/24/24 22:03 Pulse Oximetry 99 04/24/24 22:03 Oxygen Delivery Method Room Air 04/24/24 22:03 MDM - Dental/Oral MDM Narrative Medical decision making narrative: She is provided prescriptions for Tylenol 3, ibuprofen and clindamycin. She was given Tylenol 3 and clindamycin here as well as dental anesthesia. Findings are discussed with the patient and she will follow-up with her dentist. Differential Diagnosis Differential diagnosis: Likely gingival abscess, dental caries, toothache and dental abscess Discharge Plan Discharge Chief Complaint: Dental/Oral Clinical Impression: Dental caries Patient Disposition: Home, Self-Care Time of Disposition Decision: 22:12 Condition: Good Prescriptions / Home Meds: New acetaminophen-codeine 300-30 mg tablet 1 tab PO Q6H PRN (Reason: pain) 5 Days Qty: 20 0RF clindamycin HCl 300 mg capsule 300 mg PO Q6H 10 Days Qty: 40 0RF ibuprofen 800 mg tablet 800 mg PO Q8H PRN (Reason: pain) Qty: 20 0RF No Action oxcarbazepine 300 mg tablet 300 mg PO BID alprazolam 0.5 mg tablet 0.5 mg PO DAILY PRN (Reason: anxiety) rizatriptan 5 mg tablet 5 mg PO Q2H PRN (Reason: migraine headache) cholecalciferol (vitamin D3) [Vitamin D3] 10 mcg (400 unit) capsule cyclobenzaprine 5 mg tablet 5 mg PO DAILY qfsarunnuq-sddgrrrsoenoy-kgch 50-300-40 mg capsule 1 cap PO Q6H PRN (Reason: pain) Print Language: Luxembourgish Instructions: Toothache (ED) Referrals: Shaikh Langley MD [Primary Care Provider] - 1 week
[2024-04-24] MEDS: BENZOCAINE 30 ML, lidocaine HCL 15 ML MM (22:30)
[2024-04-24] MEDS: CLINDAMYCIN HCL 150 MG CAPSULE 300 MG PO (22:31)
[2024-04-24] MEDS: ACETAMINOPHEN 300 MG/ 30 MG CODEINE TABLET 1 TAB PO (22:31)
[2024-04-24 22:33] VITALS: BP 128/99
== END 2024-04-24 22:34 | disposition home or self-care (01) ==
PROVIDERS: Emergency Provider Emergency Medicine; PCP Internal Medicine
DX: K02.9 Dental caries, unspecified (principal); Z87.891 Personal history of nicotine dependence
CPT/HCPCS: 99283

== ENCOUNTER 2024-04-27 13:11 | Emergency (ER) | payer MEDICAID, SELFPAY ==
[2024-04-27 13:14] VITALS: BP 142/100; PULSE 89; TEMP 36.6; BMI 33.9
--- OUTSIDE RECORDS SUMMARY | 2024-04-27 13:41 | XMS_ITS | CCD ---
Author Organization [facility] Care Team Providers Care Processing Inspector Name Role Phone Alistair Max Unavailable Unavailable [...] Chase Saldana Unavailable MIREILLE Saldana Attending Provider [phone] FAWWAD, [place] Primary Care Unavailable Key Patel Unavailable NON STAFF Primary Care Provider UnavailMD Gerald Del Castillo Attending Provider NON STAFF Primary Care Provider UnavailMD Gerald Del Castillo Attending Provider WILDA Perez-TWISTING MACHINE OPERATOR-C Kenia Benjamin Attending Provider MD Estefani Juan Jr Emergency Provider [facility] Attending Unavailable JOHN HADDAD Attending [...] Unavailab le NON STAFF Primary Care Unavailable [facility] Primary Care Unavailable [facility] Primary Care Unavailable MARTELL OTERO Attending Unavailable SHANNA MARTELL W Referring [facility]available [facility] Primary Care Unavailable MARTELL OTERO Attending Unavailable OTERO MARTELL W Referring [facility] Care Unavailable MARTELL OTERO Attending Unavailable OTERO MARTELL W Referring Unavailable [facility] Primary Care Unavailable [facility] Primary Care Unavailable CHETAN HEBERT Attending Unavailable [facility] Primary Care Unavailable ALICE SHANE Attending Unavailable [facility] Primary Care Unavailable SCOTTHALEIGH RUBIO Attending Unavailable SCOTT, AHMAD Ana Maria Attending Unavailable SCOTT, AHMAD M Referring Unavailable [facility] Primary Care Unavailable [facility] Primary Care Unavailable ALICE SHANE Attending Unavailable [facility] Primary Care Unavailable YANIQUE GONZALES Attending Unavailable [facility] Primary Care Unavailable SCOTT, AHMAD M Attending Unavailable SCOTT, AHMAD M Attending Unavailable SCOTT, AHMAD M Referring Unavailable [facility] Primary Care Unavailable [facility] Primary Care Unavailable KENIA PEREZ Referring Unavailable FAWWASHAIKH Munoz Primary Care Unavailable KENIA PEREZ Referring [facility] Unavailable Allergies Allergy Classification Reported Allergen(s) Allergy Type Date of Onset Reaction(s) Facility (8 sources) ibuprofen; Translations: [ibuprofen] Drug Allergy 11-25-19 Nausea [facility] Repository (1 source) Latex; Translations: [Latex Allergy] Propensity to adverse reactions to drug (disorder) [facility] Repository (1 source) Sulfonamides (Antibiotic); Translations: [sulfa drugs] Propensity to adverse reactions to drug (disorder) [facility] Repository (9 sources) Lactase Drug Allergy 03-05-20 vomiting [facility] (11 sources) Latex; Translations: [LATEX] Drug allergy 08-24-19 anaphylaxis [facility] (9 sources) Sulfacetamide Drug Allergy 03-05-20 [facility] (2 sources) Lactose Drug Allergy [facility] Repository (2 sources) Latex Drug allergy (disorder) 12-30-19 13 [facility] Repository (2 sources) Penicillin Drug Allergy [facility] Repository (1 source) Propylthiouracil Drug Allergy [facility] Repository (2 sources) Sulfonamides (Antibiotic) Drug allergy (disorder) 12-30-19 13 [facility] Repository (6 sources) Sulfonamides (Antibiotic); Translations: [Sulfa (Sulfonamide Antibiotics)] Allergy to substance 11-25-[address] [facility] (1 source) Lactase Drug Allergy 03-18-20 [facility] Repository (1 source) Latex Drug allergy (disorder) 03-18-20 [facility] Repository (1 source) Sulfacetamide Drug Allergy 03-18-20 [facility] Repository (1 source) Adhesive agent; Translations: [...] Drug Class(es) Dates Sig (Normalized) Sig (Original) [id number] 200 actuat albuterol 0.09 mg/actuat metered dose [...] 1.5 mg/ml oral solution (2 sources) Uncompetitive V-yzqnzm-W-aspartate Receptor Antagonist, Sigma-1 Agonist [place] DM 7.5-7.5 MG/5ML 10 ml Orally every [...] 03-18-2024 Episodic Other aftercare (1 source) Other fdc (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 therapy; Translations: [OTH [facility] CURRENT DRUG THERAPY] Onset: 03-23-2022 Episodic Other [...] lead ECGon 03-18-2024 ECG 12 lead ECG [facility] [place] [address] Electrocardiograph Report Signed Patient: Jennifer Engle MR#: [id number] 8 : 1995 Acct:[id number] Age/Sex: 28 / F ADM Date: 03/18/24 Loc: ER Room: Type: [facility] ER Attending Dr: Ordering Provider: Estefani [...] ECGs available Confirmed by ESTEFANI JUAN MD ([id number]) on 03/20/2024 5:58:53 AM Referred By: Electronically Signed By: ESTEFANI JUAN MD Transcribed By: MUS Signed By Estefani Juan Jr, MD [id number] Normal [facility] Influenza virus B Ag [Presen ce] in Upper respiratory specimen by Rapid immunoassayon 03-05-2024 FLUBV Ag IA.rapid Ql (Nph) Negative [facility] No Panel Informationon 03-05 Influenza Type A (Rapid) Negative [facility] POC SARS CoV-2 Antigen Negative [facility] Troponin I.cardiac High sens itivity method [Mass/Vol]on 02-14-2024 1 HOUR TROP I, HIGH SENSITIVITY 3 ng/L Normal <16 [facility] Comment on above: Performed By: #### 8 9579-7 ####[facility] ([id number])[address] [place] [address] 85469 CBC AND AUTO DIFFon 02-13-20 24 ABSOLUTE BASOPHIL 0.0 X10E9/L Normal 0.0-0.2 [facility] Comment on above: Performed By: #### 2 106-3 #### [facility] ([id number]) [address] [place] [address] 37833 ABSOLUTE NEUTROPHIL 7.5 X10E9/L High 1.5-6.6 [facility] Comment on above: Performed By: #### 2 106-3 #### [facility] ([id number]) [address] [place] [address] 06137 Basophils/100 WBC (Bld) 0.3 % Normal [facility] Comment on above: Performed By: #### 2 106-3 #### [facility] ([id number]) [address] [place] [address] 76434 Eosinophils (Bld) [#/Vol] 0.1 10*3/uL Normal 0.0-0.4 [facility] Comment on above: Performed By: #### 2 106-3 #### [facility] ([id number]) [address] [place] [address] 10065 Eosinophils/100 WBC (Bld) 0.8 % Normal [facility] Comment on above: Performed By: #### 2 106-3 #### [facility] ([id number]) [address] [place] [address] 74413 Erythrocyte distribution width (RBC) [Ratio] 13.7 % Normal 11.5-15.0 [facility] Comment on above: Performed By: #### 2 106-3 #### [facility] ([id number]) [address] [place] [address] 10737 Hematocrit (Bld) [Volume fraction] 35.8 % Normal 35-47 [facility] Comment on above: Performed By: #### 2 106-3 #### [facility] ([id number]) [address] [place] [address] 54592 Hemoglobin (Bld) [Mass/Vol] 12.5 g/dL Normal 11.7-15.5 [facility] Comment on above: Performed By: #### 2 106-3 #### [facility] ([id number]) [address] [place] [address] 10017 Lymphocytes (Bld) [#/Vol] 3.4 10*3/uL Normal 1.0-3.5 [facility] Comment on above: Performed By: #### 2 106-3 #### [facility] ([id number]) [address] [place] [address] 42414 Lymphocytes/100 WBC (Bld) 29.4 % Normal [facility] Comment on above: Performed By: #### 2 106-3 #### [facility] ([id number]) [address] [place] [address] 60891 MCH (RBC) [Entitic mass] 29.8 pg Normal 27-34 [facility] Comment on above: Performed By: #### 2 106-3 #### [facility] ([id number]) [address] [place] [address] 37164 MCHC (RBC) [Mass/Vol] 35.0 g/dL Normal 32-36 [facility] Comment on above: Performed By: #### 2 106-3 #### [facility] ([id number]) [address] [place] [address] 78441 MCV (RBC) [Entitic vol] 85 fL Normal 80-100 [facility] Comment on above: Performed By: #### 2 106-3 #### [facility] ([id number]) [address] [place] [address] 83807 Monocytes (Bld) [#/Vol] 0.6 10*3/uL Normal 0-0.9 [facility] Comment on above: Performed By: #### 2 106-3 #### [facility] ([id number]) [address] [place] [address] 45034 Monocytes/100 WBC (Bld) 4.8 % Normal [facility] Comment on above: Performed By: #### 2 106-3 #### [facility] ([id number]) [address] [place] [address] 97928 Neutrophils/100 WBC (Bld) 64.7 % Normal [facility] Comment on above: Performed By: #### 2 106-3 #### [facility] ([id number]) [address] [place] [address] 99694 Platelet mean volume (Bld) [Entitic vol] 6.6 fL Low 7-12 [facility] Comment on above: Performed By: #### 2 106-3 #### [facility] ([id number]) [address] [place] [address] 96521 Platelets (Bld) [#/Vol] 377 10*3/uL Normal 150-450 [facility] Comment on above: Performed By: #### 2 106-3 #### [facility] ([id number]) [address] [place] [address] 28211 RBC COUNT 4.21 X10E12/L Normal 3.80-5.20 [facility] Comment on above: Performed By: #### 2 106-3 #### [facility] ([id number]) [address] [place] [address] 74913 WBC (Bld) [#/Vol] 11.6 10*3/uL High 4.0-11.0 [facility] Comment on above: Performed By: #### 2 106-3 #### [facility] ([id number]) [address] [place] [address] 88792 COMPREHENSIVE METABOLIC PANE Kit 02-13-2024 Albumin [Mass/Vol] 4.1 g/dL Normal 3.2-5.3 [facility] Comment on above: Performed By: #### 2 106-3 #### [facility] ([id number]) [address] [place] [address] 04015 ALP [Catalytic activity/Vol] 158 U/L High 39-130 [facility] Comment on above: Performed By: #### 2 106-3 #### [facility] ([id number]) [address] [place] [address] 60465 ALT [Catalytic activity/Vol] 46 U/L High 0-31 [facility] Comment on above: Performed By: #### 2 106-3 #### [facility] ([id number]) [address] [place] [address] 30289 Anion gap [Moles/Vol] 7 mmol/L Normal 5-15 [facility] Comment on above: Performed By: #### 2 106-3 #### [facility] ([id number]) [address] [place] [address] 06253 AST [Catalytic activity/Vol] 28 U/L Normal 0-41 [facility] Comment on above: Performed By: #### 2 106-3 #### [facility] ([id number]) [address] [place] [address] 32569 Bilirubin [Mass/Vol] 0.5 mg/dL Normal 0.3-1.2 [facility] Comment on above: Performed By: #### 2 106-3 #### [facility] ([id number]) [address] [place] [address] 61326 Calcium [Mass/Vol] 9.0 mg/dL Normal 8.5-10.5 [facility] Comment on above: Performed By: #### 2 106-3 #### [facility] ([id number]) [address] [place] [address] 57871 Chloride [Moles/Vol] 106 mmol/L Normal 98-109 [facility] Comment on above: Performed By: #### 2 106-3 #### [facility] ([id number]) [address] [place] [address] 36778 CO2 [Moles/Vol] 24 mmol/L Normal 22-32 [facility] Comment on above: Performed By: #### 2 106-3 #### [facility] ([id number]) [address] [place] [address] 70649 Creatinine [Mass/Vol] 0.63 mg/dL Normal 0.40-1.00 [facility] Comment on above: Result Comment: METH OD TRACEABLE TO IDMS STANDARD Performed By: #### 2 106-3 #### [facility] ([id number]) [address] [place] [address] 48915 eGFR (CKD-EPI) NON-RACE DEPENDENT >90 Normal >59 [facility] Comment on above: Result Comment: Reported eGFR is based on the CKD-EPI 2021 equation that does not use a race coefficient. Performed By: #### 2 106-3 #### [facility] ([id number]) [address] [place] [address] 02468 Glucose [Mass/Vol] 98 mg/dL Normal 65-99 [facility] Comment on above: Performed By: #### 2 106-3 #### [facility] ([id number]) [address] [place] [address] 62622 Potassium [Moles/Vol] 3.1 mmol/L Low 3.5-5.0 [facility] Comment on above: Performed By: #### 2 106-3 #### [facility] ([id number]) [address] [place] [address] 44285 Protein [Mass/Vol] 8.0 g/dL Normal 6.0-8.0 [facility] Comment on above: Performed By: #### 2 106-3 #### [facility] ([id number]) [address] [place] [address] 56013 Sodium [Moles/Vol] 137 mmol/L Normal 134-146 [facility] Comment on above: Performed By: #### 2 106-3 #### [facility] ([id number]) [address] [place] [address] 47060 Urea nitrogen [Mass/Vol] 7 mg/dL Normal 5-23 [facility] Comment on above: Performed By: #### 2 106-3 #### [facility] ([id number]) [address] [place] [address] 62357 HCG ( test) Ql (U)o n 02-13-2024 Beta HCG ( test) Ql (U) Negative Normal NEG [facility] Comment on above: Performed By: #### 2 106-3 #### [facility] ([id number]) [address] [place] [address] 22836 MAGNESIUMon 02-13-2024 Magnesium [Mass/Vol] 1.9 mg/dL Normal 1.8-2.6 [facility] Comment on above: Performed By: #### 2 106-3 #### [facility] ([id number]) [address] [place] [address] 72033 Troponin I.cardiac High sens itivity method [Mass/Vol]on 02-13-2024 TROPONIN I, HIGH SENSITIVITY 3 ng/L Normal <16 [facility] Comment on above: Performed By: #### 2 106-3 #### [facility] ([id number]) [address] [place] [address] 18723 URN MACROSCOPIC NURon 2023 BILIRUBIN BETHANY Negative Normal NEG [facility] Comment on above: Performed By: #### 2 106-3 #### [facility] ([id number]) [address] [place] [address] 25201 BLOOD/HGB BETHANY Negative Normal NEG [facility] Comment on above: Performed By: #### 2 106-3 #### [facility] ([id number]) [address] [place] [address] 05726 GLUCOSE BETHANY Negative Normal NEG [facility] Comment on above: Performed By: #### 2 106-3 #### [facility] ([id number]) [address] [place] [address] 99601 KETONES BETHANY Negative Normal NEG [facility] Comment on above: Performed By: #### 2 106-3 #### [facility] ([id number]) [address] [place] [address] [place] [address] LEUKOCYTE ESTERASE BETHANY Negative Normal NEG [facility] Comment on above: Performed By: #### 2 106-3 #### [facility] ([id number]) [address] [place] [address] [place] [address] NITRITE BETHANY Negative Normal NEG [facility] Comment on above: Performed By: #### 2 106-3 #### [facility] ([id number]) [address] [place] [address] 72009 PH BETHANY 6.5 Normal 5.0-8.5 [facility] Comment on above: Performed By: #### 2 106-3 #### [facility] ([id number]) [address] [place] [address] [place] [address] PROTEIN BETHANY Negative Normal NEG [facility] Comment on above: Performed By: #### 2 106-3 #### [facility] ([id number]) [address] [place] [address] 59546 SPECIFIC GRAVITY BETHANY 1.015 Normal 1.003-1 .03 5 [facility] Comment on above: Performed By: #### 2 106-3 #### [facility] ([id number]) [address] [place] [address] 33202 UROBILINOGEN BETHANY 0.2 eu/dL Normal <1.1 [facility] Comment on above: Performed By: #### 2 106-3 #### [facility] ([id number]) [address] [place] [address] 97938 XR CHEST 2 VWSon 02-13-2024 XR CHEST 2 VWS XR CHEST 2 VWS Chest 2 views History: Difficulty breathing SOB Comparison: 11/25/2023 Findings: Chest 2 views. Stable cardiomediastinal silhouette. No focal opacity, effusion or pneumothorax. Impression: No evident acute cardiopulmonary process. Finalized by Jennifer Howe MD on 02/13/2024 11:22 PM Normal [facility] BASIC METABOLIC PANLon 12-28 Anion gap [Moles/Vol] 4 mmol/L Low 5-15 [facility] Comment on above: Performed By: #### 2 106-3 #### [facility] ([id number]) [address] [place] [address] 39095 Calcium [Mass/Vol] 8.4 mg/dL Low 8.5-10.5 [facility] Comment on above: Performed By: #### 2 106-3 #### [facility] ([id number]) [address] [place] [address] 08725 Chloride [Moles/Vol] 106 mmol/L Normal 98-109 [facility] Comment on above: Performed By: #### 2 106-3 #### [facility] ([id number]) [address] [place] [address] 04092 CO2 [Moles/Vol] 24 mmol/L Normal 22-32 [facility] Comment on above: Performed By: #### 2 106-3 #### [facility] ([id number]) [address] [place] [address] 55583 Creatinine [Mass/Vol] 0.65 mg/dL Normal 0.40-1.00 [facility] Comment on above: Result Comment: METH OD TRACEABLE TO IDMS STANDARD Performed By: #### 2 106-3 #### [facility] ([id number]) [address] [place] [address] 20461 eGFR (CKD-EPI) NON-RACE DEPENDENT >90 Normal >59 [facility] Comment on above: Result Comment: Reported eGFR is based on the CKD-EPI 2020 equation that does not use a race coefficient. Performed By: #### 2 106-3 #### [facility] ([id number]) [address] [place] [address] 01616 Glucose [Mass/Vol] 101 mg/dL High 65-99 [facility] Comment on above: Performed By: #### 2 106-3 #### [facility] ([id number]) [address] [place] [address] 70930 Potassium [Moles/Vol] 3.8 mmol/L Normal 3.5-5.0 [facility] Comment on above: Performed By: #### 2 106-3 #### [facility] ([id number]) [address] [place] [address] 99692 Sodium [Moles/Vol] 134 mmol/L Normal 134-146 [facility] Comment on above: Performed By: #### 2 106-3 #### [facility] ([id number]) [address] [place] [address] 39643 Urea nitrogen [Mass/Vol] 12 mg/dL Normal 5-23 [facility] Comment on above: Performed By: #### 2 106-3 #### [facility] ([id number]) [address] [place] [address] 06168 CBC AND AUTO DIFFon 12-29-19 24 ABSOLUTE BASOPHIL 0.1 X10E9/L Normal 0.0-0.2 [facility] Comment on above: Performed By: #### 2 106-3 #### [facility] ([id number]) [address] [place] [address] 98253 ABSOLUTE NEUTROPHIL 6.1 X10E9/L Normal 1.5-6.6 [facility] Comment on above: Performed By: #### 2 106-3 #### [facility] ([id number]) [address] [place] [address] 34641 Basophils/100 WBC (Bld) 0.7 % Normal [facility] Comment on above: Performed By: #### 2 106-3 #### [facility] ([id number]) [address] [place] [address] 10160 Eosinophils (Bld) [#/Vol] 0.2 10*3/uL Normal 0.0-0.4 [facility] Comment on above: Performed By: #### 2 106-3 #### [facility] ([id number]) [address] [place] [address] 94596 Eosinophils/100 WBC (Bld) 1.9 % Normal [facility] Comment on above: Performed By: #### 2 106-3 #### [facility] ([id number]) [address] [place] [address] 15900 Erythrocyte distribution width (RBC) [Ratio] 13.6 % Normal 11.5-15.0 [facility] Comment on above: Performed By: #### 2 106-3 #### [facility] ([id number]) [address] [place] [address] 97150 Hematocrit (Bld) [Volume fraction] 33.7 % Low 35-47 [facility] Comment on above: Performed By: #### 2 106-3 #### [facility] ([id number]) [address] [place] [address] 64591 Hemoglobin (Bld) [Mass/Vol] 11.7 g/dL Normal 11.7-15.5 [facility] Comment on above: Performed By: #### 2 106-3 #### [facility] ([id number]) [address] [place] [address] 36850 Lymphocytes (Bld) [#/Vol] 3.0 10*3/uL Normal 1.0-3.5 [facility] Comment on above: Performed By: #### 2 106-3 #### [facility] ([id number]) [address] [place] [address] 41948 Lymphocytes/100 WBC (Bld) 29.8 % Normal [facility] Comment on above: Performed By: #### 2 106-3 #### [facility] ([id number]) [address] [place] [address] 01274 MCH (RBC) [Entitic mass] 29.2 pg Normal 27-34 [facility] Comment on above: Performed By: #### 2 106-3 #### [facility] ([id number]) [address] [place] [address] 05109 MCHC (RBC) [Mass/Vol] 34.6 g/dL Normal 32-36 [facility] Comment on above: Performed By: #### 2 106-3 #### [facility] ([id number]) [address] [place] [address] 81309 MCV (RBC) [Entitic vol] 84 fL Normal 80-100 [facility] Comment on above: Performed By: #### 2 106-3 #### [facility] ([id number]) [address] [place] [address] 02770 Monocytes (Bld) [#/Vol] 0.6 10*3/uL Normal 0-0.9 [facility] Comment on above: Performed By: #### 2 106-3 #### [facility] ([id number]) [address] [place] [address] 21065 Monocytes/100 WBC (Bld) 6.5 % Normal [facility] Comment on above: Performed By: #### 2 106-3 #### [facility] ([id number]) [address] [place] [address] 94797 Neutrophils/100 WBC (Bld) 61.1 % Normal [facility] Comment on above: Performed By: #### 2 106-3 #### [facility] ([id number]) [address] [place] [address] 49941 Platelet mean volume (Bld) [Entitic vol] 6.8 fL Low 7-12 [facility] Comment on above: Performed By: #### 2 106-3 #### [facility] ([id number]) [address] [place] [address] 37721 Platelets (Bld) [#/Vol] 307 10*3/uL Normal 150-450 [facility] Comment on above: Performed By: #### 2 106-3 #### [facility] ([id number]) [address] [place] [address] 13414 RBC COUNT 4.00 X10E12/L Normal 3.80-5.20 [facility] Comment on above: Performed By: #### 2 106-3 #### [facility] ([id number]) [address] [place] [address] 41216 WBC (Bld) [#/Vol] 10.0 10*3/uL Normal 4.0-11.0 [facility] Comment on above: Performed By: #### 2 106-3 #### [facility] ([id number]) [address] [place] [address] 25037 MAGNESIUMon 12-29-2023 Magnesium [Mass/Vol] 2.0 mg/dL Normal 1.8-2.6 [facility] Comment on above: Performed By: #### 2 106-3 #### [facility] ([id number]) [address] [place] [address] 68077 HCG ( test) Ql (U)o n 12-11-2023 Beta HCG ( test) Ql (U) Negative Normal NEG [facility] [facility] Comment on above: Performed By: #### 2 106-3 #### [facility] ([id number]) [address] [place] [address] URN MACROSCOPIC NURon 2023 BILIRUBIN BETHANY Negative Normal NEG [facility] Comment on above: Performed By: #### N UM #### [facility] ([id number]) [address] [place] [address] 97296 BLOOD/HGB BETHANY Negative Normal NEG [facility] Comment on above: Performed By: #### N UM #### [facility] ([id number]) [address] [place] [address] 48124 GLUCOSE BETHANY Negative Normal NEG [facility] Comment on above: Performed By: #### N UM #### [facility] ([id number]) [address] [place] [address] [place] [address] KETONES BETHANY Negative Normal NEG [facility] Comment on above: Performed By: #### N UM #### [facility] ([id number]) [address] [place] [address] [place] [address] LEUKOCYTE ESTERASE BETHANY Negative Normal NEG [facility] Comment on above: Performed By: #### N UM #### [facility] ([id number]) [address] [place] [address] [place] [address] NITRITE BETHANY Negative Normal NEG [facility] Comment on above: Performed By: #### N UM #### [facility] ([id number]) [address] [place] [address] 19968 PH BETHANY 6.0 Normal 5.0-8.5 [facility] Comment on above: Performed By: #### N UM #### [facility] ([id number]) [address] [place] [address] 31906 PROTEIN BETHANY Negative Normal NEG [facility] Comment on above: Performed By: #### N UM #### [facility] ([id number]) [address] [place] [address] 23383 SPECIFIC GRAVITY BETHANY 1.015 Normal 1.003-1 .03 5 [facility] Comment on above: Performed By: #### N UM #### [facility] ([id number]) [address] [place] [address] 29514 UROBILINOGEN BETHANY 0.2 eu/dL Normal <1.1 [facility] Comment on above: Performed By: #### N UM #### [facility] ([id number]) [address] [place] [address] 29570 BASIC METABOLIC PANLon 11-24 Anion gap [Moles/Vol] 13 mmol/L Normal 5-15 [facility] Comment on above: Performed By: #### B MP #### [facility] ([id number]) [address] [place] [address] 74582 Calcium [Mass/Vol] 9.0 mg/dL Normal 8.5-10.5 [facility] Comment on above: Performed By: #### B MP #### [facility] ([id number]) [address] [place] [address] 24876 Chloride [Moles/Vol] 103 mmol/L Normal 98-109 [facility] Comment on above: Performed By: #### B MP #### [facility] ([id number]) [address] [place] [address] 81184 CO2 [Moles/Vol] 20 mmol/L Low 22-32 [facility] Comment on above: Performed By: #### B MP #### [facility] ([id number]) [address] [place] [address] 56926 Creatinine [Mass/Vol] 0.69 mg/dL Normal 0.40-1.00 [facility] Comment on above: Result Comment: METH OD TRACEABLE TO IDMS STANDARD Performed By: #### B MP #### [facility] ([id number]) [address] [place] [address]109 eGFR (CKD-EPI) NON-RACE DEPENDENT >90 Normal >59 [facility] Comment on above: Result Comment: Reported eGFR is based on the CKD-EPI 2020 equation that does not use a race coefficient. Performed By: #### B MP #### [facility] ([id number]) [address] [place] [address] 98453 Glucose [Mass/Vol] 95 mg/dL Normal 65-99 [facility] Comment on above: Performed By: #### B MP #### [facility] ([id number]) [address] [place] [address] 42310 Potassium [Moles/Vol] 2.9 mmol/L Low 3.5-5.0 [facility] Comment on above: Performed By: #### B MP #### [facility] ([id number]) [address] [place] [address] 97991 Sodium [Moles/Vol] 136 mmol/L Normal 134-146 [facility] Comment on above: Performed By: #### B MP #### [facility] ([id number]) [address] [place] [address] 29819 Urea nitrogen [Mass/Vol] 7 mg/dL Normal 5-23 [facility] Comment on above: Performed By: #### B #### [facility] ([id number]) [address] [facility] [place] [address] SARS/FLU A+B/RSV by NAAT/Mol ecularon 11-25-2023 SARS/FLU [...] operators who are performing tests using either [employer] or [employer] systems and is limited to laboratories that [...] repeat. Fact Sheet for Healthcare Providers: https://www.fda.gov/media /221010/download Fact Sheet for Patients: https://www.fda.gov/media /737421/download Normal [facility] Comment on above: Performed By: #### C OVFLR #### [facility] ([id number]) [address] [facility] [place] [address] XR FOOT LT MIN 3 VWSon 09-21 [...] Loya MD on 09/22/2023 12:07 AM Normal [facility] XR SPINE LUMBAR 2 OR [...] Loya MD on 09/22/2023 12:10 AM Normal [facility] XR TIBIA FIBULA LT MIN [...] Loya MD on 09/22/2023 12:09 AM Normal [facility] HCG ( test) Ql (U)o n 09-21-2023 Beta HCG ( test) Ql (U) Negative Normal NEG [facility] Comment on above: Performed By: #### 2 106-3 #### [facility] ([id number]) [address] [facility] [place] [address] SARS/FLU A+B/RSV by NAAT/Mol ecularon 07-09-2023 SARS/FLU [...] operators who are performing tests using either [employer] DX or [employer] systems and is limited to laboratories that [...] repeat. Fact Sheet for Healthcare Providers: https://www.fda.gov/media /588162/download Fact Sheet for Patients: https://www.fda.gov/media /280871/download Normal [facility] Comment on above: Performed By: #### C OVFLR #### [facility] ([id number]) [address] [place] [address] Provider Letteron 02-25-2023 Provider Letter (Inserted Image. Swapna ble to display) February 25, 2023 JENNIFER CARMEN [address] [place] [address] : 1995 Dear Jennifer , We have been trying to reach you with no success. It is important that you return our call regarding your referral to our office by Jennifer upon receiving this letter. Also, at the time of your call, please provide us with your current information. Thank you for your prompt attention to this matter. Sincerely, [facility] [phone] Normal [facility] Physician Referralon 023 Physician Referral [phone] [id number] Normal [facility] Urinalysis - AUTOMATEDon Appearance (U) cloudy [employer] Other Bilirubin Ql (U) Negative [employer] Other Color (U) yellow [facility] Other Glucose Ql (U) Negative [employer] Other Hemoglobin Ql (U) Trace-intact [facility] Other Ketones Ql (U) Negative [employer] Other Leukocyte esterase Test strip Ql (U) Trace [facility] Other Nitrite Ql (U) Negative [employer] Other pH (U) 6.0 [pH] [facility] Other Protein Ql (U) Negative [employer] Other Specific gravity (U) [Rel density] <=1.005 [facility] Other Urobilinogen (U) [Mass/Vol] 0.2 mg/dL [facility] Other Urinalysis - AUTOMATED No rt [facility] Other Quick Strepon 04-26-2022 S. pyogenes Org specific cx Ql (Throat) Negative [facility] Other Quick Strep [facility] Other SARS-CoV-2 (COVID-19) RNA NA A+probe Ql (Resp)on 04-23-2022 SARS-CoV-2 (COVID-19) RNA EMMANUELLE+probe Ql (Unsp spec) Negative [facility] Other Covid-19 PCR (CVDTB)on 03-16 SARS-CoV-2 (COVID-19) RNA EMMANUELLE+probe Ql (Unsp spec) Not detected Normal NOT DETECTED [facility] Comment on above: Result Comment: This test is not yet approved or cleared by the [place] FDA. When there are no FDA-approved or cleared tests available, and other criteria are met, FDA can make tests available under an emergency access mechanism called an Emergency Use Authorization (EUA). The EUA for this test is supported by the [place] of Health and Human Service's (HHS's) declaration [...] SARS-CoV-2. Performed By: #### C BC #### [facility] [address] [place] [address] Dr. Katrin Ceja SARS-CoV-2 (COVID-19) RNA NA A+probe Ql (Resp)on 03-27-2022 SARS-CoV-2 (COVID-19) RNA EMMANUELLE+probe Ql (Unsp spec) Negative [facility] Other CBC AUTO DIFFon 03-22-2022 BASO # 0.0 103/ul Normal 0.0-0.1 [facility] Comment on above: Performed By: #### L IPID, CMP #### [facility] [address] [place] [address] Dr. Katrin Ceja Basophils/100 WBC (Bld) 0.3 % Normal 0.2-2.0 [facility] Comment on above: Performed By: #### L IPID, CMP #### [facility] [address] [place] [address] Dr. Katrin Ceja EO # 0.2 103/ul Normal 0.0-0.7 [facility] Comment on above: Performed By: #### L IPID, CMP #### [facility] [address] [place] [address] Dr. Katrin Ceja Eosinophils/100 WBC (Bld) 2.2 % Normal 0.9-7.0 [facility] Comment on above: Performed By: #### L IPID, CMP #### [facility] [address] [place] [address] Dr. Katrin Ceja Erythrocyte distribution width (RBC) [Ratio] 11.9 % Normal 11.0-15.0 [facility] Comment on above: Performed By: #### L IPID, CMP #### [facility] [address] [place] [address] Dr. Katrin Ceja Hematocrit (Bld) [Volume fraction] 36.4 % Normal 36.0-48.0 [facility] Comment on above: Performed By: #### L IPID, CMP #### [facility] [address] [place] [address] Dr. Katrin Ceja Hemoglobin (Bld) [Mass/Vol] 12.6 g/dL Normal 12.0-16.0 [facility] Comment on above: Performed By: #### L IPID, CMP #### [facility] [address] [place] [address] Dr. Katrin Ceja IG # 0.03 10e3/ul Normal 0.00-0.03 [facility] Comment on above: Performed By: #### L IPID, CMP #### [facility] [address] [place] [address] Dr. Katrin Ceja IG % 0.3 % Normal 0.0-0.5 [facility] Comment on above: Performed By: #### L IPID, CMP #### [facility] [address] [place] [address] Dr. Katrin Ceja LYMPH # 3.5 103/ul Normal 1.2-3.8 [facility] Comment on above: Performed By: #### L IPID, CMP #### [facility] [address] [place] [address] Dr. Katrin Ceja Lymphocytes/100 WBC (Bld) 33.1 % Normal 20.5-60.0 [facility] Comment on above: Performed By: #### L IPID, CMP #### [facility] [address] [place] [address] Dr. Katrin Ceja MANUAL DIFF REQ NO Normal [facility] Comment on above: Performed By: #### L IPID, CMP #### [facility] [address] [place] [address] Dr. Katrin Ceja MCH (RBC) [Entitic mass] 29.9 pg Normal 26.7-34.0 [facility] Comment on above: Performed By: #### L IPID, CMP #### [facility] [address] [address] [address] Katrin Ceja MCHC (RBC) [Mass/Vol] 34.6 g/dL Normal 29.9-35.2 [facility] Comment on above: Performed By: #### L IPID, CMP #### [facility] [address] [address] [address] Katrin Ceja MCV (RBC) [Entitic vol] 86.5 fL Normal 81.0-99.0 [facility] Comment on above: Performed By: #### L IPID, CMP #### [facility] [address] [place] [address] Dr. Katrin Ceja MONO # 0.7 103/ul Normal 0.3-0.8 [facility] Comment on above: Performed By: #### L IPID, CMP #### [facility] [address] [place] [address] Dr. Katrin Ceja Monocytes/100 WBC (Bld) 6.5 % Normal 1.7-12.0 [facility] Comment on above: Performed By: #### L IPID, CMP #### [facility] [address] [place] [address] Dr. Katrin Ceja NEUT # 6.0 103/ul Normal 1.4-6.5 [facility] Comment on above: Performed By: #### L IPID, CMP #### [facility] [address] [place] [address] Dr. Katrin Ceja Neutrophils/100 WBC (Bld) 57.6 % Normal 43.0-75.0 [facility] Comment on above: Performed By: #### L IPID, CMP #### [facility] [address] [address] [address] Katrin Ceja Platelet mean volume (Bld) [Entitic vol] 8.7 fL Critically low 9.5-13.5 [facility] Comment on above: Performed By: #### L IPID, CMP #### [facility] [address] [place] [address] Dr. Katrin Ceja PLT 282 103/ul Normal 150-450 [facility] Comment on above: Performed By: #### L IPID, CMP #### [facility] [address] [address] [address] Katrin Ceja RBC 4.21 106/ul Normal 4.20-5.40 [facility] Comment on above: Performed By: #### L IPID, CMP #### [facility] [address] [place] [address] Dr. Katrin Ceja WBC 10.5 103/ul Normal 4.0-11.0 [facility] Comment on above: Performed By: #### L IPID, CMP #### [facility] [address] [place] [address] Dr. Katrin Ceja ER URINE PROFILEon 2 Bilirubin Ql (U) Negative Normal NEGATIVE [facility] Comment on above: Performed By: #### L IPID, CMP #### [facility] [address] [place] [address] Dr. Katrin Ceja Clarity (U) CLEAR Normal CLEAR [facility] Comment on above: Performed By: #### L IPID, CMP #### [facility] [address] [place] [address] Dr. Katrin Ceja Color (U) LT. YELLOW Normal YELLOW [facility] Comment on above: Performed By: #### L IPID, CMP #### [facility] [address] [place] [address] Dr. Katrin Ceja ERUAHD A micrscopic examina tion will be performed if indicated. Normal [facility] Comment on above: Performed By: #### L IPID, CMP #### [facility] [address] [place] [address] Dr. Katrin Ceja Glucose Ql (U) Negative Normal NEGATIVE [facility] Comment on above: Performed By: #### L IPID, CMP #### [facility] [address] [place] [address] Dr. Katrin Ceja Hemoglobin Ql (U) Negative Normal NEGATIVE [facility] Comment on above: Performed By: #### L IPID, CMP #### [facility] [address] [place] [address] Dr. Katrin Ceja Ketones Ql (U) Negative Normal NEGATIVE [facility] Comment on above: Performed By: #### L IPID, CMP #### [facility] [address] [place] [address] Dr. Katrin Ceja LEUKOCYTES Negative Normal NEGATIVE [facility] Comment on above: Performed By: #### L IPID, CMP #### [facility] [address] [place] [address] Dr. Katrin Ceja Nitrite Ql (U) Negative Normal NEGATIVE [facility] Comment on above: Performed By: #### L IPID, CMP #### [facility] [address] [place] [address] Dr. Katrin Ceja pH (U) 6.0 [pH] Normal 5-9 [facility] Comment on above: Performed By: #### L IPID, CMP #### [facility] [address] [place] [address] Dr. Katrin Ceja SPEC GRAVITY 1.015 Normal 1.005-<=1. 025 [facility] Comment on above: Performed By: #### L IPID, CMP #### [facility] [address] [place] [address] Dr. Katrin Ceja UA PROTEIN Negative Normal NEGATIVE/ TRACE [facility] Comment on above: Performed By: #### L IPID, CMP #### [facility] [address] [place] [address] Dr. Katrin Ceja UR MICRO IND NOT INDICATED Normal [facility] Comment on above: Performed By: #### L IPID, CMP #### [facility] [address] [place] [address] Dr. Katrin Ceja Urobilinogen Qn (U) 0.2 {Jeannie'U}/dL Normal 0.2 - 1. 0 [facility] Comment on above: Performed By: #### L IPID, CMP #### [facility] [address] [place] [address] Dr. Katrin Ceja LIPASEon 03-22-2022 Lipase [Catalytic activity/Vol] 84.0 U/L Normal 73.0-393.0 [facility] Comment on above: Performed By: #### H STROPN, CMP, LIPA #### [facility] [address] [address] [address] Katrin Ceja URon 03-22-2022 , QUAL Negative Normal NEGATIVE [facility] Comment on above: Performed By: #### L IPID, CMP #### [facility] [address] [address] [address] Katrin Ceja PROF 14(COMP METB)on 022 Albumin [Mass/Vol] 3.2 g/dL Critically low 3.4-5.0 [facility] Comment on above: Performed By: #### H STROPN, CMP, LIPA #### [facility] [address] [address] [address] Katrin Ceja Albumin/Globulin [Mass ratio] 0.8 {ratio} Normal [facility] Comment on above: Performed By: #### H STROPN, CMP, LIPA #### [facility] [address] [address] [address] Katrin Ceja ALP [Catalytic activity/Vol] 189 U/L Critically high 46-116 [facility] Comment on above: Performed By: #### H STROPN, CMP, LIPA #### [facility] [address] [address] [address] Katrin Ceja ALT [Catalytic activity/Vol] 31 U/L Normal 14-59 [facility] Comment on above: Performed By: #### H STROPN, CMP, LIPA #### [facility] [address] [address] [address] Katrin Ceja Anion gap [Moles/Vol] 9.9 mmol/L Normal [facility] Comment on above: Performed By: #### H STROPN, CMP, LIPA #### [facility] [address] [address] [address] Katrin Ceja AST [Catalytic activity/Vol] 17 U/L Normal 15-37 [facility] Comment on above: Performed By: #### H STROPN, CMP, LIPA #### [facility] [address] [address] [address] Katrin Ceja Bilirubin [Mass/Vol] 0.2 mg/dL Normal 0.2-1.0 [facility] Comment on above: Performed By: #### H STROPN, CMP, LIPA #### [facility] [address] [address] [address] Katrin Ceja Calcium [Mass/Vol] 8.7 mg/dL Normal 8.5-10.1 [facility] Comment on above: Performed By: #### H STROPN, CMP, LIPA #### [facility] [address] [address] [address] Katrin Ceja Chloride [Moles/Vol] 103 mmol/L Normal 98-107 [facility] Comment on above: Performed By: #### H STROPN, CMP, LIPA #### [facility] [address] [place] [address] Dr. Katrin Ceja CO2 [Moles/Vol] 25.4 mmol/L Normal 21.0-32.0 [facility] Comment on above: Performed By: #### H STROPN, CMP, LIPA #### [facility] [address] [address] [address] Katrin Ceja Creatinine [Mass/Vol] 0.71 mg/dL Normal 0.55-1.02 [facility] Comment on above: Performed By: #### H STROPN, CMP, LIPA #### [facility] [address] [address] [address] Katrin Ceja EGFR-AF YEMENI >60 Normal >=60 [facility] Comment on above: Performed By: #### H STROPN, CMP, LIPA #### [facility] [address] [address] [address] Katrin Ceja EGFR-NON AF YEMENI >60 Normal >=60 [facility] Comment on above: Performed By: #### H STROPN, CMP, LIPA #### [facility] [address] [address] [address] Katrin Ceja Globulin (S) [Mass/Vol] 4.0 g/dL Normal [facility] Comment on above: Performed By: #### H STROPN, CMP, LIPA #### [facility] [address] [address] [address] Katrin Ceja Glucose [Mass/Vol] 106 mg/dL Normal 74-106 [facility] Comment on above: Performed By: #### H STROPN, CMP, LIPA #### [facility] [address] [address] [address] Katrin Ceja Potassium [Moles/Vol] 3.3 mmol/L Critically low 3.5-5.1 [facility] Comment on above: Performed By: #### H STROPN, CMP, LIPA #### [facility] [address] [address] [address] Katrin Ceja Protein [Mass/Vol] 7.2 g/dL Normal 6.4-8.2 [facility] Comment on above: Performed By: #### H STROPN, CMP, LIPA #### [facility] [address] [address] [address] Katrin Ceja Sodium [Moles/Vol] 135 mmol/L Critically low 136-145 [facility] Comment on above: Performed By: #### H STROPN, CMP, LIPA #### [facility] [address] [address] [address] Katrin Ceja Urea nitrogen [Mass/Vol] 5.0 mg/dL Critically low 7.0-18.0 [facility] Comment on above: Performed By: #### H STROPN, CMP, LIPA #### [facility] [address] [address] [address] Katrin Ceja Urea nitrogen/Creatinine [Mass ratio] 7.0 mg/mg Normal [facility] Comment on above: Performed By: #### H STROPN, CMP, LIPA #### [facility] [address] [address] [address] Katrin Ceja TROPONIN, HIGH SENSITIVITYon 03-22-2022 HSTROP <4.0 Normal 4.0-51.3 [facility] Comment on above: Result Comment: CUT- OFF POINTS HAVE BEEN ESTABLISHED BASED ON THE FOURTH UNIVERSAL DEFINITIONS OF MYOCARDIAL INFARCTION. THE UPPER REFERENCE LIMIT (URL) OF TROPONIN, DEFINED THE 99TH PERCENTILE OF cTnI DISTRIBUTION IN A REFERENCE POPULATION, HAS BEEN CONFIRMED THE DECISION THRESHOLD FOR [place] DIAGNOSIS. Performed By: #### H STROPN, CMP, LIPA #### [facility] [address] [address] [address] Katrin Ceja XR ABD FLAT UP_PA [...] GERI LASSITER Date: 2022-03-22 01:53 Normal [facility] XR ANKLE LT MIN 3 Von 2021 XR ANKLE LT MIN 3 V EXAM: XR ANKLE LT [place] N 3 V HISTORY: Ankle pain COMPARISON: None. TECHNIQUE: 3 views FINDINGS: No osseous lesion, fracture, dislocation or subluxation. Joint spaces are normal. Old posttraumatic ossifications adjacent to the tip of the lateral malleolus. No visualized effusion. No visualized soft tissue edema. IMPRESSION: Normal x-rays Electronically authenticated by: DANNI QUINONES Date: 2022-03-09 19:32 Normal [facility] CBC AUTO DIFFon 02-08-2022 BASO # 0.0 103/ul Normal 0.0-0.1 [facility] Comment on above: Performed By: #### C BC #### [facility] [address] [address] [address] Katrin Ceja Basophils/100 WBC (Bld) 0.3 % Normal 0.2-2.0 [facility] Comment on above: Performed By: #### C BC #### [facility] [address] [address] [address] Katrin Ceja EO # 0.3 103/ul Normal 0.0-0.7 [facility] Comment on above: Performed By: #### C BC #### [facility] [address] [place] [address] Dr. Katrin Ceja Eosinophils/100 WBC (Bld) 3.0 % Normal 0.9-7.0 [facility] Comment on above: Performed By: #### C BC #### [facility] [address] [place] [address] Dr. Katrin Ceja Erythrocyte distribution width (RBC) [Ratio] 12.2 % Normal 11.0-15.0 [facility] Comment on above: Performed By: #### C BC #### [facility] [address] [place] [address] Dr. Katrin Ceja Hematocrit (Bld) [Volume fraction] 33.8 % Critically low 36.0-48.0 [facility] Comment on above: Performed By: #### C BC #### [facility] [address] [place] [address] Dr. Katrin Ceja Hemoglobin (Bld) [Mass/Vol] 11.9 g/dL Critically low 12.0-16.0 [facility] Comment on above: Performed By: #### C BC #### [facility] [address] [place] [address] Dr. Katrin Ceja IG # 0.04 10e3/ul Critically high 0.00-0.03 [facility] Comment on above: Performed By: #### C BC #### [facility] [address] [place] [address] Dr. Katrin Ceja IG % 0.4 % Normal 0.0-0.5 [facility] Comment on above: Performed By: #### C BC #### [facility] [address] [place] [address] Dr. Katrin Ceja LYMPH # 3.0 103/ul Normal 1.2-3.8 [facility] Comment on above: Performed By: #### C BC #### [facility] [address] [place] [address] Dr. Katrin Ceja Lymphocytes/100 WBC (Bld) 28.4 % Normal 20.5-60.0 [facility] Comment on above: Performed By: #### C BC #### [facility] [address] [place] [address] Dr. Katrin Ceja MANUAL DIFF REQ NO Normal [facility] Comment on above: Performed By: #### C BC #### [facility] [address] [place] [address] Dr. Katrin Ceja MCH (RBC) [Entitic mass] 29.8 pg Normal 26.7-34.0 [facility] Comment on above: Performed By: #### C BC #### [facility] [address] [place] [address] Dr. Katrin Ceja MCHC (RBC) [Mass/Vol] 35.2 g/dL Normal 29.9-35.2 [facility] Comment on above: Performed By: #### C BC #### [facility] [address] [place] [address] Dr. Katrin Ceja MCV (RBC) [Entitic vol] 84.7 fL Normal 81.0-99.0 [facility] Comment on above: Performed By: #### C BC #### [facility] [address] [place] [address] Dr. Katrin Ceja MONO # 0.7 103/ul Normal 0.3-0.8 [facility] Comment on above: Performed By: #### C BC #### [facility] [address] [place] [address] Dr. Katrin Ceja Monocytes/100 WBC (Bld) 6.6 % Normal 1.7-12.0 [facility] Comment on above: Performed By: #### C BC #### [facility] [address] [place] [address] Dr. Katrin Ceja NEUT # 6.4 103/ul Normal 1.4-6.5 [facility] Comment on above: Performed By: #### C BC #### [facility] [address] [address] [address] Katrin Ceja Neutrophils/100 WBC (Bld) 61.3 % Normal 43.0-75.0 [facility] Comment on above: Performed By: #### C BC #### [facility] [address] [address] [address] Katrin Ceja Platelet mean volume (Bld) [Entitic vol] 8.9 fL Critically low 9.5-13.5 [facility] Comment on above: Performed By: #### C BC #### [facility] [address] [address] [address] Katrin Ceja PLT 299 103/ul Normal 150-450 [facility] Comment on above: Performed By: #### C BC #### [facility] [address] [place] [address] Dr. Katrin Ceja RBC 3.99 106/ul Critically low 4.20-5.40 [facility] Comment on above: Performed By: #### C BC #### [facility] [address] [place] [address] Dr. Katrin Ceja WBC 10.4 103/ul Normal 4.0-11.0 [facility] Comment on above: Performed By: #### C BC #### [facility] [address] [place] [address] Dr. Katrin Ceja D-DIMERon 02-08-2022 D-DIMER 0.59 mg/L FEU Normal <=0.59 [facility] Comment on above: Performed By: #### L IPID, CMP #### [facility] [address] [place] [address] Dr. Katrin Ceja D-DIMER COMMENTS SEE BELOW Normal [facility] Comment on above: Result Comment: Incr [...] Performed By: #### L IPID, CMP #### [facility] [address] [place] [address] Dr. Katrin Ceja PROF CHEM 8 (BAS METB)on Anion gap [Moles/Vol] 12.8 mmol/L Normal [facility] Comment on above: Performed By: #### C BC #### [facility] [address] [place] [address] Dr. Katrin Ceja Calcium [Mass/Vol] 8.7 mg/dL Normal 8.5-10.1 [facility] Comment on above: Performed By: #### C BC #### [facility] [address] [place] [address] Dr. Katrin Ceja Chloride [Moles/Vol] 102 mmol/L Normal 98-107 [facility] Comment on above: Performed By: #### C BC #### [facility] [address] [place] [address] Dr. Katrin Ceja CO2 [Moles/Vol] 25.9 mmol/L Normal 21.0-32.0 [facility] Comment on above: Performed By: #### C BC #### [facility] [address] [place] [address] Dr. Katrin Ceja Creatinine [Mass/Vol] 0.70 mg/dL Normal 0.55-1.02 [facility] Comment on above: Performed By: #### C BC #### [facility] [address] [place] [address] Dr. Katrin Ceja EGFR-AF YEMENI >60 Normal >=60 [facility] Comment on above: Performed By: #### C BC #### [facility] [address] [place] [address] Dr. Katrin Ceja EGFR-NON AF YEMENI >60 Normal >=60 [facility] Comment on above: Performed By: #### C BC #### [facility] [address] [place] [address] Dr. Katrin Ceja Glucose [Mass/Vol] 95 mg/dL Normal 74-106 [facility] Comment on above: Performed By: #### C BC #### [facility] [address] [address] [address] Katrin Ceja Potassium [Moles/Vol] 2.7 mmol/L Critically low 3.5-5.1 [facility] Comment on above: Result Comment: Test Repeated. Critical Value Verified Performed By: #### C BC #### [facility] [address] [place] [address] Dr. Katrin Ceja Sodium [Moles/Vol] 136 mmol/L Normal 136-145 [facility] Comment on above: Performed By: #### C BC #### [facility] [address] [place] [address] Dr. Katrin Ceja Urea nitrogen [Mass/Vol] 3.0 mg/dL Critically low 7.0-18.0 [facility] Comment on above: Performed By: #### C BC #### [facility] [address] [place] [address] Dr. Katrin Ceja Urea nitrogen/Creatinine [Mass ratio] 4.3 mg/mg Normal [facility] Comment on above: Performed By: #### C BC #### [facility] [address] [place] [address] Dr. Katrin Ceja XR CHEST 2 Von [...] by: RIVER SAID Date: 2022-02-08 04:19 Normal [facility] LIPID PROFILEon 12-18-2021 CHOL-HDL RATIO NORM SEE BELOW Normal [facility] Comment on above: Result Comment: 3.3 - 4.4 LOW RISK 4.4 - 7.1 AVERAGE RISK 7.1 - 11.0 MODERATE RISK >11.0 HIGH RISK Performed By: #### L IPID, LIVER #### [facility] [address] [address] [address] Katrin Ceja Cholesterol [Mass/Vol] 126 mg/dL Normal <=200 [facility] Comment on above: Performed By: #### L IPID, LIVER #### [facility] [address] [address] [address] Katrin Ceja Cholesterol in HDL [Mass/Vol] 31 mg/dL Critically low 40-60 [facility] Comment on above: Performed By: #### L IPID, LIVER #### [facility] [address] [address] [address] Katrin Ceja Cholesterol in LDL [Mass/Vol] 59.2 mg/dL Normal [facility] Comment on above: Performed By: #### L IPID, LIVER #### [facility] [address] [place] [address] Dr. Katrin Ceja Cholesterol.total/Chol esterol in HDL [Mass ratio] 4.1 {ratio} Normal [facility] Comment on above: Performed By: #### L IPID, LIVER #### [facility] [address] [address] [address] Katrin Ceja HDL NORMAL > or = 60 mg/dl - LO W CARDIOVASCULAR RISK <40 mg/dl - HIGH CARDIOVASCULAR RISK Normal [facility] Comment on above: Performed By: #### L IPID, LIVER #### [facility] [address] [place] [address] Dr. Katrin Ceja LDL CALC NORMAL SEE BELOW Normal [facility] Comment on above: Result Comment: <100 mg/dl OPTIMAL 100 - 129 mg/dl NEAR OR ABOVE OPTIMAL 130 - 159 mg/dl BORDERLINE HIGH 160 - 189 mg/dl HIGH >190 mg/dl VERY HIGH Performed By: #### L IPID, LIVER #### [facility] [address] [place] [address] Dr. Katrin Ceja Triglyceride [Mass/Vol] 179 mg/dL Critically high <=150 [facility] Comment on above: Performed By: #### L IPID, LIVER #### [facility] [address] [address] [address] Katrin Ceja VLDL CALC 35.8 mg/dL Normal [facility] Comment on above: Performed By: #### L IPID, LIVER #### [facility] [address] [address] [address] Katrin Ceja LIVER PROFILEon 12-18-2021 Albumin [Mass/Vol] 3.6 g/dL Normal 3.4-5.0 [facility] Comment on above: Performed By: #### L IPID, LIVER #### [facility] [address] [address] [address] Katrin Ceja Albumin/Globulin [Mass ratio] 0.8 {ratio} Normal [facility] Comment on above: Performed By: #### L IPID, LIVER #### [facility] [address] [address] [address] Katrin Ceja ALP [Catalytic activity/Vol] 196 U/L Critically high 46-116 [facility] Comment on above: Performed By: #### L IPID, LIVER #### [facility] [address] [place] [address] Dr. Katrin Ceja ALT [Catalytic activity/Vol] 51 U/L Normal 14-59 [facility] Comment on above: Performed By: #### L IPID, LIVER #### [facility] [address] [address] [address] Katrin Ceja AST [Catalytic activity/Vol] 22 U/L Normal 15-37 [facility] Comment on above: Performed By: #### L IPID, LIVER #### [facility] [address] [place] [address] Dr. Katrin Ceja BILI, CONJUGATED 0.1 mg/dL Normal 0.0-0.2 [facility] Comment on above: Performed By: #### L IPID, LIVER #### [facility] [address] [place] [address] Dr. Katrin Ceja Bilirubin [Mass/Vol] 0.4 mg/dL Normal 0.2-1.0 [facility] Comment on above: Performed By: #### L IPID, LIVER #### [facility] [address] [place], [place] [address] Dr. Katrin Ceja Globulin (S) [Mass/Vol] 4.4 g/dL Normal [facility] Comment on above: Performed By: #### L IPID, LIVER #### [facility] [address] [address] [address] Katrin Ceja Protein [Mass/Vol] 8.0 g/dL Normal 6.4-8.2 [facility] Comment on above: Performed By: #### L IPID, LIVER #### [facility] [address] [id number] Katrin Ceja XR FOOT RT MIN [...] RIVER RODGERS Date: 2021-12-07 00:19 Normal [facility] PROF 14(COMP METB)on 022 Albumin [Mass/Vol] 3.6 g/dL Normal 3.4-5.0 [facility] Comment on above: Performed By: #### L IPID, CMP #### [facility] [address] [address] [address] Katrin Ceja Albumin/Globulin [Mass ratio] 0.8 {ratio} Normal [facility] Comment on above: Performed By: #### L IPID, CMP #### [facility] [address] [id number] Katrin Ceja ALP [Catalytic activity/Vol] 209 U/L Critically high 46-116 [facility] Comment on above: Performed By: #### L IPID, CMP #### [facility] [address] [address] [address] Katrin Ceja ALT [Catalytic activity/Vol] 65 U/L Critically high 14-59 [facility] Comment on above: Performed By: #### L IPID, CMP #### [facility] [address] [address] [address] Katrin Ceja Anion gap [Moles/Vol] 15.7 mmol/L Normal [facility] Comment on above: Performed By: #### L IPID, CMP #### [facility] [address] [address] [address] Katrin Ceja AST [Catalytic activity/Vol] 31 U/L Normal 15-37 [facility] Comment on above: Performed By: #### L IPID, CMP #### [facility] [address] [address] [address] Katrin Ceja Bilirubin [Mass/Vol] 0.2 mg/dL Normal 0.2-1.3 [facility] Comment on above: Performed By: #### L IPID, CMP #### [facility] [address] [address] [address] Katrin Ceja Calcium [Mass/Vol] 8.8 mg/dL Normal 8.5-10.1 [facility] Comment on above: Performed By: #### L IPID, CMP #### [facility] [address] [place] [address] Dr. Katrin Ceja Chloride [Moles/Vol] 105 mmol/L Normal 98-107 [facility] Comment on above: Performed By: #### L IPID, CMP #### [facility] [address] [address] [address] Katrin Ceja CO2 [Moles/Vol] 21.3 mmol/L Critically low 22.0-30.0 [facility] Comment on above: Performed By: #### L IPID, CMP #### [facility] [address] [address] [address] Katrin Ceja Creatinine [Mass/Vol] 0.72 mg/dL Normal 0.52-1.04 [facility] Comment on above: Performed By: #### L IPID, CMP #### [facility] [address] [address] [address] Katrin Ceja EGFR-AF YEMENI >60 Normal >=60 [facility] Comment on above: Performed By: #### L IPID, CMP #### [facility] [address] [address] [address] Katrin Ceja EGFR-NON AF YEMENI >60 Normal >=60 [facility] Comment on above: Performed By: #### L IPID, CMP #### [facility] [address] [address] [address] Katrin Ceja Globulin (S) [Mass/Vol] 4.3 g/dL Normal [facility] Comment on above: Performed By: #### L IPID, CMP #### [facility] [address] [address] [address] Katrin Ceja Glucose [Mass/Vol] 99 mg/dL Normal 74-106 [facility] Comment on above: Performed By: #### L IPID, CMP #### [facility] [address] [address] [address] Katrin Ceja Potassium [Moles/Vol] 4.0 mmol/L Normal 3.4-5.0 [facility] Comment on above: Performed By: #### L IPID, CMP #### [facility] [address] [address] [address] Katrin Ceja Protein [Mass/Vol] 7.9 g/dL Normal 6.1-8.2 [facility] Comment on above: Performed By: #### L IPID, CMP #### [facility] [address] [address] [address] Katrin Ceja Sodium [Moles/Vol] 138 mmol/L Normal 137-145 [facility] Comment on above: Performed By: #### L IPID, CMP #### [facility] [address] [address] [address] Katrin Ceja Urea nitrogen [Mass/Vol] 13.0 mg/dL Normal 7.0-18.0 [facility] Comment on above: Performed By: #### L IPID, CMP #### [facility] [address] [address] [address] Katrin Ceja Urea nitrogen/Creatinine [Mass ratio] 18.1 mg/mg Normal [facility] Comment on above: Performed By: #### L IPID, CMP #### [facility] [address] [address] [address] Katrin Ceja XR HUMERUS RT MIN [...] MODESTA NAVA Date: 2021-10-17 01:46 Normal [facility] XR SHOULDER RT 2V or >on XR SHOULDER RT 2V or > EXAM: XR SHOULDER RT 2V or > HISTORY: Pain right arm pain following fall. COMPARISON: None. TECHNIQUE: Standard 3 views of the right shoulder. FINDINGS: No acute or intrinsic osseous, articular or soft tissue abnormality is seen. IMPRESSION: No acute findings. Electronically authenticated by: MODESTA NAVA Date: 2021-10-17 01:45 Normal [facility] XR WRIST RT MIN 3 Von 2021 XR WRIST RT MIN 3 V EXAM: XR WRIST RT AZ N 3 V HISTORY: Pain acute right arm pain following fall. COMPARISON: None. TECHNIQUE: AP, oblique and lateral views of the right wrist. FINDINGS: No acute or intrinsic osseous, articular or soft tissue abnormality is seen. IMPRESSION: No acute right wrist findings. Electronically authenticated by: MODESTA NAVA Date: 2021-10-17 01:44 Normal [facility] AMYLASEon 09-18-2021 Amylase [Catalytic activity/Vol] 34 U/L Normal 31-110 [facility] Comment on above: Performed By: #### P REG #### [facility] [address] [address] [address] Katrin Ceja CBC AUTO DIFFon 09-18-2021 BASO # 0.0 103/ul Normal 0.0-0.1 [facility] Comment on above: Performed By: #### C BC #### [facility] [address] [place] [address] Dr. Katrin Ceja Basophils/100 WBC (Bld) 0.3 % Normal 0.2-2.0 [facility] Comment on above: Performed By: #### C BC #### [facility] [address] [address] [address] Katrin Ceja EO # 0.2 103/ul Normal 0.0-0.7 [facility] Comment on above: Performed By: #### C BC #### [facility] [address] [place] [address] Dr. Katrin Ceja Eosinophils/100 WBC (Bld) 2.4 % Normal 0.9-7.0 [facility] Comment on above: Performed By: #### C BC #### [facility] [address] [place] [address] Dr. Katrin Ceja Erythrocyte distribution width (RBC) [Ratio] 12.5 % Normal 11.0-15.0 [facility] Comment on above: Performed By: #### C BC #### [facility] [address] [place] [address] Dr. Katrin Ceja Hematocrit (Bld) [Volume fraction] 37.4 % Normal 36.0-48.0 [facility] Comment on above: Performed By: #### C BC #### [facility] [address] [place] [address] Dr. Katrin Ceja Hemoglobin (Bld) [Mass/Vol] 12.3 g/dL Normal 12.0-16.0 [facility] Comment on above: Performed By: #### C BC #### [facility] [address] [place] [address] Dr. Katrin Ceja IG # 0.05 10e3/ul Critically high 0.00-0.03 [facility] Comment on above: Performed By: #### C BC #### [facility] [address] [place] [address] Dr. Katrin Ceja IG % 0.5 % Normal 0.0-0.5 [facility] Comment on above: Performed By: #### C BC #### [facility] [address] [place] [address] Dr. Katrin Ceja LYMPH # 3.1 103/ul Normal 1.2-3.8 [facility] Comment on above: Performed By: #### C BC #### [facility] [address] [place] [address] Dr. Katrin Ceja Lymphocytes/100 WBC (Bld) 31.7 % Normal 20.5-60.0 [facility] Comment on above: Performed By: #### C BC #### [facility] [address] [place] [address] Dr. Katrin Ceja MANUAL DIFF REQ NO Normal [facility] Comment on above: Performed By: #### C BC #### [facility] [address] [place] [address] Dr. Katrin Ceja MCH (RBC) [Entitic mass] 28.9 pg Normal 26.7-34.0 [facility] Comment on above: Performed By: #### C BC #### [facility] [address] [place] [address] Dr. Katrin Ceja MCHC (RBC) [Mass/Vol] 32.9 g/dL Normal 29.9-35.2 [facility] Comment on above: Performed By: #### C BC #### [facility] [address] [place] [address] Dr. Katrin Ceja MCV (RBC) [Entitic vol] 88.0 fL Normal 81.0-99.0 [facility] Comment on above: Performed By: #### C BC #### [facility] [address] [place] [address] Dr. Katrin Ceja MONO # 0.7 103/ul Normal 0.3-0.8 [facility] Comment on above: Performed By: #### C BC #### [facility] [address] [place] [address] Dr. Katrin Ceja Monocytes/100 WBC (Bld) 6.7 % Normal 1.7-12.0 [facility] Comment on above: Performed By: #### C BC #### [facility] [address] [place] [address] Dr. Katrin Ceja NEUT # 5.7 103/ul Normal 1.4-6.5 [facility] Comment on above: Performed By: #### C BC #### [facility] [address] [place] [address] Dr. Katrin Ceja Neutrophils/100 WBC (Bld) 58.4 % Normal 43.0-75.0 [facility] Comment on above: Performed By: #### C BC #### [facility] [address] [place] [address] Dr. Katrin Ceja Platelet mean volume (Bld) [Entitic vol] 8.8 fL Critically low 9.5-13.5 [facility] Comment on above: Performed By: #### C BC #### [facility] [address] [place] [address] Dr. Katrin Ceja PLT 265 103/ul Normal 150-450 [facility] Comment on above: Performed By: #### C BC #### [facility] [address] [place] [address] Dr. Katrin Ceja RBC 4.25 106/ul Normal 4.20-5.40 [facility] Comment on above: Performed By: #### C BC #### [facility] [address] [place] [address] Dr. Katrin Ceja WBC 9.7 103/ul Normal 4.0-11.0 [facility] Comment on above: Performed By: #### C BC #### [facility] [address] [place] [address] ABD/PELV W CONon [...] ISAIAH FAROOQ Date: 2021-09-18 03:51 Normal [facility] ER URINE PROFILEon 2 Bilirubin Ql (U) Negative Normal NEGATIVE [facility] Comment on above: Performed By: #### C BC #### [facility] [address] [place] [address] Dr. Katrin Ceja Clarity (U) CLEAR Normal CLEAR [facility] Comment on above: Performed By: #### C BC #### [facility] [address] [place] [address] Dr. Katrin Ceja Color (U) LT. YELLOW Normal YELLOW [facility] Comment on above: Performed By: #### C BC #### [facility] [address] [place] [address] Dr. Katrin Ceja ERUAHTammy A micrscopic examina tion will be performed if indicated. Normal [facility] Comment on above: Performed By: #### C BC #### [facility] [address] [place] [address] Dr. Katrin Ceja Glucose Ql (U) Negative Normal NEGATIVE [facility] Comment on above: Performed By: #### C BC #### [facility] [address] [place] [address] Dr. Katrin Ceja Hemoglobin Ql (U) SMALL Abnormal NEGATIVE [facility] Comment on above: Performed By: #### C BC #### [facility] [address] [place] [address] Dr. Katrin Ceja Ketones Ql (U) Negative Normal NEGATIVE [facility] Comment on above: Performed By: #### C BC #### [facility] [address] [place] [address] Dr. Katrni Ceja LEUKOCYTES Negative Normal NEGATIVE [facility] Comment on above: Performed By: #### C BC #### [facility] [address] [place] [address] Dr. Katrin Ceja Nitrite Ql (U) Negative Normal NEGATIVE [facility] Comment on above: Performed By: #### C BC #### [facility] [address] [place] [address] Dr. Katrin Ceja pH (U) 7.5 [pH] Normal 5-9 [facility] Comment on above: Performed By: #### C BC #### [facility] [address] [place] [address] Dr. Katrin Ceja SPEC GRAVITY 1.010 Normal 1.005-<=1. 025 [facility] Comment on above: Performed By: #### C BC #### [facility] [address] [place] [address] Dr. Katrin Ceja UA PROTEIN Negative Normal NEGATIVE/ TRACE [facility] Comment on above: Performed By: #### C BC #### [facility] [address] [place] [address] Dr. Katrin Ceja UR MICRO IND INDICATED Normal [facility] Comment on above: Performed By: #### C BC #### [facility] [address] [place] [address] Dr. Katrin Ceja Urobilinogen Qn (U) 0.2 {Jeannie'U}/dL Normal 0.2 - 1. 0 [facility] Comment on above: Performed By: #### C BC #### [facility] [address] [place] [address] Dr. Katrin Ceja LIPASEon 09-18-2021 Lipase [Catalytic activity/Vol] 81.0 U/L Normal 23.0-300.0 [facility] Comment on above: Performed By: #### P REG #### [facility] [address] [place] [address] Dr. Katrin Ceja URon 09-18-2021 , QUAL Negative Normal NEGATIVE [facility] Comment on above: Performed By: #### C BC #### [facility] [address] [place] [address] Dr. Katrin Ceja PROF 14(COMP METB)on 022 Albumin [Mass/Vol] 3.2 g/dL Critically low 3.5-5.0 [facility] Comment on above: Performed By: #### P REG #### [facility] [address] [place] [address] Dr. Katrin Ceja Albumin/Globulin [Mass ratio] 0.8 {ratio} Normal [facility] Comment on above: Performed By: #### P REG #### [facility] [address] [place] [address] Dr. Katrin Ceja ALP [Catalytic activity/Vol] 216 U/L Critically high 38-126 [facility] Comment on above: Performed By: #### P REG #### [facility] [address] [place] [address] Dr. Katrin Ceja ALT [Catalytic activity/Vol] 109 U/L Critically high 9-52 [facility] Comment on above: Performed By: #### P REG #### [facility] [address] [place] [address] Dr. Katrin Ceja Anion gap [Moles/Vol] 10.5 mmol/L Normal [facility] Comment on above: Performed By: #### P REG #### [facility] [address] [place] [address] Dr. Katrin Ceja AST [Catalytic activity/Vol] 66 U/L Critically high 14-36 [facility] Comment on above: Performed By: #### P REG #### [facility] [address] [place] [address] Dr. Katrin Ceja Bilirubin [Mass/Vol] 0.2 mg/dL Normal 0.2-1.3 [facility] Comment on above: Performed By: #### P REG #### [facility] [address] [place] [address] Dr. Katrin Ceja Calcium [Mass/Vol] 8.3 mg/dL Critically low 8.4-10.2 [facility] Comment on above: Performed By: #### P REG #### [facility] [address] [place] [address] Dr. Katrin Ceja Chloride [Moles/Vol] 103 mmol/L Normal 98-107 [facility] Comment on above: Performed By: #### P REG #### [facility] [address] [place] [address] Dr. Katrin Ceja CO2 [Moles/Vol] 26.2 mmol/L Normal 22.0-30.0 [facility] Comment on above: Performed By: #### P REG #### [facility] [address] [place] [address] Dr. Katrin Ceja Creatinine [Mass/Vol] 0.81 mg/dL Normal 0.52-1.04 [facility] Comment on above: Performed By: #### P REG #### [facility] [address] [place] [address] Dr. Katrin Ceja EGFR-AF YEMENI >60 Normal >=60 [facility] Comment on above: Performed By: #### P REG #### [facility] [address] [place] [address] Dr. Katrin Ceja EGFR-NON AF YEMENI >60 Normal >=60 [facility] Comment on above: Performed By: #### P REG #### [facility] [address] [place] [address] Dr. Katrin Ceja Globulin (S) [Mass/Vol] 4.1 g/dL Normal [facility] Comment on above: Performed By: #### P REG #### [facility] [address] [place] [address] Dr. Katrin Ceja Glucose [Mass/Vol] 90 mg/dL Normal 74-106 [facility] Comment on above: Performed By: #### P REG #### [facility] [address] [address] [address] Katrin Ceja Potassium [Moles/Vol] 3.7 mmol/L Normal 3.4-5.0 [facility] Comment on above: Performed By: #### P REG #### [facility] [address] [address] [address] Katrin Ceja Protein [Mass/Vol] 7.3 g/dL Normal 6.1-8.2 [facility] Comment on above: Performed By: #### P REG #### [facility] [address] [place] [address] Dr. Katrin Ceja Sodium [Moles/Vol] 136 mmol/L Critically low 137-145 [facility] Comment on above: Performed By: #### P REG #### [facility] [address] [place] [address] Dr. Katrin Ceja Urea nitrogen [Mass/Vol] 5.0 mg/dL Critically low 7.0-17.0 [facility] Comment on above: Performed By: #### P REG #### [facility] [address] [place] [address] Dr. Katrin Ceja Urea nitrogen/Creatinine [Mass ratio] 6.2 mg/mg Normal [facility] Comment on above: Performed By: #### P REG #### [facility] [address] [place] [address] Dr. Katrin Ceja URINE MICROSCOPIC ONLYon BACTERIA NONE SEEN Normal NONE SEEN [facility] Comment on above: Performed By: #### C BC #### [facility] [address] [place] [address] Dr. Katrin Ceja Bacteria identified Cx Nom (U) NOT INDICATED Normal [facility] Comment on above: Performed By: #### C BC #### [facility] [address] [place] [address] Dr. Katrin Ceja CAST NONE SEEN Normal NONE SEEN [facility] Comment on above: Performed By: #### C BC #### [facility] [address] [place] [address] Dr. Katrin Ceja Crystals LM Nom (Urine sed) NONE SEEN Normal NONE SEEN [facility] Comment on above: Performed By: #### C BC #### [facility] [address] [place] [address] Dr. Katrin Ceja Epithelial cells LM Ql (Urine sed) FEW Abnormal NONE SEEN /RARE [facility] Comment on above: Performed By: #### C BC #### [facility] [address] [place] [address] Dr. Katrin Ceja MUCOUS NONE SEEN Normal NONE SEEN [facility] Comment on above: Performed By: #### C BC #### [facility] [address] [place] [address] Dr. Katrin Ceja RBC NONE SEEN Abnormal 0-2 [facility] Comment on above: Performed By: #### C BC #### [facility] [address] [place] [address] Dr. Katrin Ceja WBC NONE SEEN Normal NONE SEEN [facility] Comment on above: Performed By: #### C BC #### [facility] [address] [place] [address] Dr. Katrin Ceja XR ABD FLAT UP_PA [...] ISAIAH FAROOQ Date: 2021-09-18 02:00 Normal [facility] CBC AUTO DIFFon 07-18-2021 BASO # 0.0 103/ul Normal 0.0-0.1 [facility] Comment on above: Performed By: #### C BC #### [facility] [address] [place] [address] Dr. Katrin Ceja Basophils/100 WBC (Bld) 0.3 % Normal 0.2-2.0 [facility] Comment on above: Performed By: #### C BC #### [facility] [address] [address] [address] Katrin Ceja EO # 0.2 103/ul Normal 0.0-0.7 [facility] Comment on above: Performed By: #### C BC #### [facility] [address] [address] [address] Katrin Ceja Eosinophils/100 WBC (Bld) 1.7 % Normal 0.9-7.0 [facility] Comment on above: Performed By: #### C BC #### [facility] [address] [address] [address] Katrin Ceja Erythrocyte distribution width (RBC) [Ratio] 13.1 % Normal 11.0-15.0 [facility] Comment on above: Performed By: #### C BC #### [facility] [address] [place] [address] Dr. Katrin Ceja Hematocrit (Bld) [Volume fraction] 42.0 % Normal 36.0-48.0 [facility] Comment on above: Performed By: #### C BC #### [facility] [address] [place] [address] Dr. Katrin Ceja Hemoglobin (Bld) [Mass/Vol] 13.7 g/dL Normal 12.0-16.0 [facility] Comment on above: Performed By: #### C BC #### [facility] [address] [address] [address] Katrin Ceja IG # 0.07 10e3/ul Critically high 0.00-0.03 [facility] Comment on above: Performed By: #### C BC #### [facility] [address] [address] [address] Katrin Ceja IG % 0.6 % Critically high 0.0-0.5 [facility] Comment on above: Performed By: #### C BC #### [facility] [address] [address] [address] Katrin Ceja LYMPH # 2.9 103/ul Normal 1.2-3.8 [facility] Comment on above: Performed By: #### C BC #### [facility] [address] [place] [address] Dr. Katrin Ceja Lymphocytes/100 WBC (Bld) 27.1 % Normal 20.5-60.0 [facility] Comment on above: Performed By: #### C BC #### [facility] [address] [place] [address] Dr. Katrin Ceja MANUAL DIFF REQ NO Normal [facility] Comment on above: Performed By: #### C BC #### [facility] [address] [place] [address] Dr. Katrin Ceja MCH (RBC) [Entitic mass] 29.3 pg Normal 26.7-34.0 [facility] Comment on above: Performed By: #### C BC #### [facility] [address] [place] [address] Dr. Katrin Ceja MCHC (RBC) [Mass/Vol] 32.6 g/dL Normal 29.9-35.2 [facility] Comment on above: Performed By: #### C BC #### [facility] [address] [place] [address] Dr. Katrin Ceja MCV (RBC) [Entitic vol] 89.7 fL Normal 81.0-99.0 [facility] Comment on above: Performed By: #### C BC #### [facility] [address] [place] [address] Dr. Katrin Ceja MONO # 0.9 103/ul Critically high 0.3-0.8 [facility] Comment on above: Performed By: #### C BC #### [facility] [address] [place] [address] Dr. Katrin Ceja Monocytes/100 WBC (Bld) 8.2 % Normal 1.7-12.0 [facility] Comment on above: Performed By: #### C BC #### [facility] [address] [place] [address] Dr. Katrin Ceja NEUT # 6.7 103/ul Critically high 1.4-6.5 [facility] Comment on above: Performed By: #### C BC #### [facility] [address] [address] [address] Katrin Ceja Neutrophils/100 WBC (Bld) 62.1 % Normal 43.0-75.0 [facility] Comment on above: Performed By: #### C BC #### [facility] [address] [place] [address] Dr. Katrin Ceja Platelet mean volume (Bld) [Entitic vol] 9.7 fL Normal 9.5-13.5 [facility] Comment on above: Performed By: #### C BC #### [facility] [address] [place] [address] Dr. Katrin Ceja PLT 334 103/ul Normal 150-450 [facility] Comment on above: Performed By: #### C BC #### [facility] [address] [place] [address] Dr. Katrin Ceja RBC 4.68 106/ul Normal 4.20-5.40 [facility] Comment on above: Performed By: #### C BC #### [facility] [address] [place] [address] Dr. Katrin Ceja WBC 10.8 103/ul Normal 4.0-11.0 [facility] Comment on above: Performed By: #### C BC #### [facility] [address] [place] [address] Dr. Katrin Ceja GLYCOHEMOGLOBIN A1Con 2021 ADA RECOMMENDATION ADA THERAPEUTIC TARG ET 6.0 - 7.0 ACTION SUGGESTED > 7.0 Normal [facility] Comment on above: Performed By: #### C BC #### [facility] [address] [place] [address] Dr. Katrin Ceja Glucose [Mass/Vol] 105 mg/dL Normal [facility] Comment on above: Performed By: #### C BC #### [facility] [address] [place] [address] Dr. Katrin Ceja HbA1c (Bld) [Mass fraction] 5.3 % Normal <=6.0 [facility] Comment on above: Performed By: #### C BC #### [facility] [address] [place], [place] [address] Dr. Katrin Ceja LIPID PROFILEon 07-18-2021 CHOL-HDL RATIO NORM SEE BELOW Normal [facility] Comment on above: Result Comment: 3.3 - 4.4 LOW RISK 4.4 - 7.1 AVERAGE RISK 7.1 - 11.0 MODERATE RISK >11.0 HIGH RISK Performed By: #### L IPID, CMP #### [facility] [address] [address] [address] Katrin Ceja Cholesterol [Mass/Vol] 302 mg/dL Critically high <=200 [facility] Comment on above: Performed By: #### L IPID, CMP #### [facility] [address] [address] [address] Katrin Ceja Cholesterol in HDL [Mass/Vol] 39 mg/dL Normal [facility] Comment on above: Performed By: #### L IPID, CMP #### [facility] [address] [address] [address] Katrin Ceja Cholesterol in LDL [Mass/Vol] 207.0 mg/dL Normal [facility] Comment on above: Performed By: #### L IPID, CMP #### [facility] [address] [address] [address] Katrin Ceja Cholesterol.total/Chol esterol in HDL [Mass ratio] 7.7 {ratio} Normal [facility] Comment on above: Performed By: #### L IPID, CMP #### [facility] [address] [address] [address] Katrin Ceja HDL NORMAL > or = 60 mg/dl - LO W CARDIOVASCULAR RISK <40 mg/dl - HIGH CARDIOVASCULAR RISK Normal [facility] Comment on above: Performed By: #### L IPID, CMP #### [facility] [address] [id number] Katrin Ceja LDL CALC NORMAL SEE BELOW Normal [facility] Comment on above: Result Comment: <100 mg/dl OPTIMAL 100 - 129 mg/dl NEAR OR ABOVE OPTIMAL 130 - 159 mg/dl BORDERLINE HIGH 160 - 189 mg/dl HIGH >190 mg/dl VERY HIGH Performed By: #### L IPID, CMP #### [facility] [address] [address] [address] Katrin Ceja Triglyceride [Mass/Vol] 280 mg/dL Critically high <=150 [facility] Comment on above: Performed By: #### L IPID, CMP #### [facility] [address] [address] [address] Katrin Ceja VLDL CALC 56.0 mg/dL Normal [facility] Comment on above: Performed By: #### L IPID, CMP #### [facility] [address] [address] [address] Katrin Ceja PROF 14(COMP METB)on 022 Albumin [Mass/Vol] 3.5 g/dL Normal 3.5-5.0 [facility] Comment on above: Performed By: #### L IPID, CMP #### [facility] [address] [place] [address] Dr. Katrin Ceja Albumin/Globulin [Mass ratio] 0.7 {ratio} Normal [facility] Comment on above: Performed By: #### L IPID, CMP #### [facility] [address] [place] [address] Dr. Katrin Ceja ALP [Catalytic activity/Vol] 291 U/L Critically high 38-126 [facility] Comment on above: Performed By: #### L IPID, CMP #### [facility] [address] [place] [address] Dr. Katrin Ceja ALT [Catalytic activity/Vol] 174 U/L Critically high 9-52 [facility] Comment on above: Performed By: #### L IPID, CMP #### [facility] [address] [address] [address] Katrin Ceja Anion gap [Moles/Vol] 15.3 mmol/L Normal [facility] Comment on above: Performed By: #### L IPID, CMP #### [facility] [address] [place] [address] Dr. Katrin Ceja AST [Catalytic activity/Vol] 97 U/L Critically high 14-36 [facility] Comment on above: Performed By: #### L IPID, CMP #### [facility] [address] [address] [address] Katrin Ceja Bilirubin [Mass/Vol] 0.4 mg/dL Normal 0.2-1.3 [facility] Comment on above: Performed By: #### L IPID, CMP #### [facility] [address] [place] [address] Dr. Katrin Ceja Calcium [Mass/Vol] 9.3 mg/dL Normal 8.4-10.2 [facility] Comment on above: Performed By: #### L IPID, CMP #### [facility] [address] [place] [address] Dr. Katrin Ceja Chloride [Moles/Vol] 99 mmol/L Normal 98-107 [facility] Comment on above: Performed By: #### L IPID, CMP #### [facility] [address] [place] [address] Dr. Katrin Ceja CO2 [Moles/Vol] 24.1 mmol/L Normal 22.0-30.0 [facility] Comment on above: Performed By: #### L IPID, CMP #### [facility] [address] [place] [address] Dr. Katrin Ceja Creatinine [Mass/Vol] 0.65 mg/dL Normal 0.52-1.04 [facility] Comment on above: Performed By: #### L IPID, CMP #### [facility] [address] [place] [address] Dr. Katrin Ceja EGFR-AF YEMENI >60 Normal >=60 [facility] Comment on above: Performed By: #### L IPID, CMP #### [facility] [address] [place] [address] Dr. Katrin Ceja EGFR-NON AF YEMENI >60 Normal >=60 [facility] Comment on above: Performed By: #### L IPID, CMP #### [facility] [address] [place] [address] Dr. Katrin Ceja Globulin (S) [Mass/Vol] 5.0 g/dL Normal [facility] Comment on above: Performed By: #### L IPID, CMP #### [facility] [address] [address] [address] Katrin Ceja Glucose [Mass/Vol] 86 mg/dL Normal 74-106 [facility] Comment on above: Performed By: #### L IPID, CMP #### [facility] [address] [place] [address] Dr. Katrin Ceja Potassium [Moles/Vol] 4.4 mmol/L Normal 3.4-5.0 [facility] Comment on above: Performed By: #### L IPID, CMP #### [facility] [address] [address] [address] Katrin Ceja Protein [Mass/Vol] 8.5 g/dL Critically high 6.1-8.2 [facility] Comment on above: Performed By: #### L IPID, CMP #### [facility] [address] [address] [address] Katrin Ceja Sodium [Moles/Vol] 134 mmol/L Critically low 137-145 [facility] Comment on above: Performed By: #### L IPID, CMP #### [facility] [address] [place] [address] Dr. Katrin Ceja Urea nitrogen [Mass/Vol] 8.0 mg/dL Normal 7.0-17.0 [facility] Comment on above: Performed By: #### L IPID, CMP #### [facility] [address] [place] [address] Dr. Katrin Ceja Urea nitrogen/Creatinine [Mass ratio] 12.3 mg/mg Normal [facility] Comment on above: Performed By: #### L IPID, CMP #### [facility] [address] [address] [address] Katrin Ceja AMYLASEon 05-01-2021 AMYL <30 Critically low 31-110 [facility] Comment on above: Performed By: #### P REG #### [facility] [address] [place] [address] Dr. Katrin Ceja CBC AUTO DIFFon 05-01-2021 BASO # 0.0 103/ul Normal 0.0-0.1 [facility] Comment on above: Performed By: #### L IPID, CMP #### [facility] [address] [place] [address] Dr. Katrin Ceja Basophils/100 WBC (Bld) 0.3 % Normal 0.2-2.0 [facility] Comment on above: Performed By: #### L IPID, CMP #### [facility] [address] [place] [address] Dr. Katrin Ceja EO # 0.1 103/ul Normal 0.0-0.7 [facility] Comment on above: Performed By: #### L IPID, CMP #### [facility] [address] [place] [address] Dr. Katrin Ceja Eosinophils/100 WBC (Bld) 0.4 % Critically low 0.9-7.0 [facility] Comment on above: Performed By: #### L IPID, CMP #### [facility] [address] [place] [address] Dr. Katrin Ceja Erythrocyte distribution width (RBC) [Ratio] 13.0 % Normal 11.0-15.0 [facility] Comment on above: Performed By: #### L IPID, CMP #### [facility] [address] [place] [address] Dr. Katrin Ceja Hematocrit (Bld) [Volume fraction] 37.7 % Normal 36.0-48.0 [facility] Comment on above: Performed By: #### L IPID, CMP #### [facility] [address] [place] [address] Dr. Katrin Ceja Hemoglobin (Bld) [Mass/Vol] 12.5 g/dL Normal 12.0-16.0 [facility] Comment on above: Performed By: #### L IPID, CMP #### [facility] [address] [place] [address] Dr. Katrin Ceja IG # 0.09 10e3/ul Critically high 0.00-0.03 [facility] Comment on above: Performed By: #### L IPID, CMP #### [facility] [address] [address] [address] Katrin Ceja IG % 0.6 % Critically high 0.0-0.5 [facility] Comment on above: Performed By: #### L IPID, CMP #### [facility] [address] [address] [address] Katrin Ceja LYMPH # 1.9 103/ul Normal 1.2-3.8 [facility] Comment on above: Performed By: #### L IPID, CMP #### [facility] [address] [address] [address] Katrin Ceja Lymphocytes/100 WBC (Bld) 12.1 % Critically low 20.5-60.0 [facility] Comment on above: Performed By: #### L IPID, CMP #### [facility] [address] [place] [address] Dr. Katrin Ceja MANUAL DIFF REQ NO Normal [facility] Comment on above: Performed By: #### L IPID, CMP #### [facility] [address] [place] [address] Dr. Katrin Ceja MCH (RBC) [Entitic mass] 28.8 pg Normal 26.7-34.0 [facility] Comment on above: Performed By: #### L IPID, CMP #### [facility] [address] [place] [address] Dr. Katrin Ceja MCHC (RBC) [Mass/Vol] 33.2 g/dL Normal 29.9-35.2 [facility] Comment on above: Performed By: #### L IPID, CMP #### [facility] [address] [address] [address] Katrin Ceja MCV (RBC) [Entitic vol] 86.9 fL Normal 81.0-99.0 [facility] Comment on above: Performed By: #### L IPID, CMP #### [facility] [address] [address] [address] Katrin Ceja MONO # 1.1 103/ul Critically high 0.3-0.8 [facility] Comment on above: Performed By: #### L IPID, CMP #### [facility] [address] [address] [address] Katrin Ceja Monocytes/100 WBC (Bld) 7.1 % Normal 1.7-12.0 [facility] Comment on above: Performed By: #### L IPID, CMP #### [facility] [address] [place] [address] Dr. Katrin Ceja NEUT # 12.3 103/ul Critically high 1.4-6.5 [facility] Comment on above: Performed By: #### L IPID, CMP #### [facility] [address] [place] [address] Dr. Katrin Ceja Neutrophils/100 WBC (Bld) 79.5 % Critically high 43.0-75.0 [facility] Comment on above: Performed By: #### L IPID, CMP #### [facility] [address] [place] [address] Dr. Katrin Ceja Platelet mean volume (Bld) [Entitic vol] 8.7 fL Critically low 9.5-13.5 [facility] Comment on above: Performed By: #### L IPID, CMP #### [facility] [address] [place] [address] Dr. Katrin Ceja PLT 329 103/ul Normal 150-450 [facility] Comment on above: Performed By: #### L IPID, CMP #### [facility] [address] [place] [address] Dr. Katrin Ceja RBC 4.34 106/ul Normal 4.20-5.40 [facility] Comment on above: Performed By: #### L IPID, CMP #### [facility] [address] [place] [address] Dr. Katrin Ceja WBC 15.5 103/ul Critically high 4.0-11.0 [facility] Comment on above: Performed By: #### L IPID, CMP #### [facility] [address] [place] [address] ABD/PELV W CONon [...] by: HILDA RAHMAN Date: 2021-05-01 20:30 Normal [facility] LIPASEon 05-01-2021 Lipase [Catalytic activity/Vol] 64.0 U/L Normal 23.0-300.0 [facility] Comment on above: Performed By: #### P REG #### [facility] [address] [address] [address] Katrin Ceja LIVER PROFILEon 05-01-2021 Albumin [Mass/Vol] 3.3 g/dL Critically low 3.5-5.0 [facility] Comment on above: Performed By: #### L IPID, CMP #### [facility] [address] [address] [address] Katrin Ceja Albumin/Globulin [Mass ratio] 0.6 {ratio} Normal [facility] Comment on above: Performed By: #### L IPID, CMP #### [facility] [address] [address] [address] Katrin Ceja ALP [Catalytic activity/Vol] 412 U/L Critically high 38-126 [facility] Comment on above: Performed By: #### L IPID, CMP #### [facility] [address] [address] [address] Katrin Ceja ALT [Catalytic activity/Vol] 124 U/L Critically high 9-52 [facility] Comment on above: Performed By: #### L IPID, CMP #### [facility] [address] [address] [address] Katrin Ceja AST [Catalytic activity/Vol] 61 U/L Critically high 14-36 [facility] Comment on above: Performed By: #### L IPID, CMP #### [facility] [address] [address] [address] Katrin Ceja BILI, CONJUGATED 0.2 mg/dL Normal 0.0-0.3 [facility] Comment on above: Performed By: #### L IPID, CMP #### [facility] [address] [address] [address] Katrin Ceja Bilirubin [Mass/Vol] 0.4 mg/dL Normal 0.2-1.3 [facility] Comment on above: Performed By: #### L IPID, CMP #### [facility] [address] [address] [address] Katrin Ceja Globulin (S) [Mass/Vol] 5.1 g/dL Normal [facility] Comment on above: Performed By: #### L IPID, CMP #### [facility] [address] [address] [address] Katrin Ceja Protein [Mass/Vol] 8.4 g/dL Critically high 6.1-8.2 [facility] Comment on above: Performed By: #### L IPID, CMP #### [facility] [address] [place] [address] Dr. Katrin Ceja PREG HCG QUALon 05-01-2021 , QUAL Negative Normal NEGATIVE [facility] Comment on above: Performed By: #### P REG #### [facility] [address] [place] [address] Dr. Katrin Ceja PROF CHEM 8 (BAS METB)on Anion gap [Moles/Vol] 17.1 mmol/L Normal [facility] Comment on above: Performed By: #### P REG #### [facility] [address] [place] [address] Dr. Katrin Ceja Calcium [Mass/Vol] 8.9 mg/dL Normal 8.4-10.2 [facility] Comment on above: Performed By: #### P REG #### [facility] [address] [place] [address] Dr. Katrin Ceja Chloride [Moles/Vol] 100 mmol/L Normal 98-107 [facility] Comment on above: Performed By: #### P REG #### [facility] [address] [place] [address] Dr. Katrin Ceja CO2 [Moles/Vol] 21.1 mmol/L Critically low 22.0-30.0 [facility] Comment on above: Performed By: #### P REG #### [facility] [address] [place] [address] Dr. Katrin Ceja Creatinine [Mass/Vol] 0.78 mg/dL Normal 0.52-1.04 [facility] Comment on above: Performed By: #### P REG #### [facility] [address] [place] [address] Dr. Katrin Ceja EGFR-AF YEMENI >60 Normal >=60 [facility] Comment on above: Performed By: #### P REG #### [facility] [address] [place] [address] Dr. Katrin Ceja EGFR-NON AF YEMENI >60 Normal >=60 [facility] Comment on above: Performed By: #### P REG #### [facility] [address] [address] [address] Katrin Ceja Glucose [Mass/Vol] 97 mg/dL Normal 74-106 [facility] Comment on above: Performed By: #### P REG #### [facility] [address] [address] [address] Katrin Ceja Potassium [Moles/Vol] 4.2 mmol/L Normal 3.4-5.0 [facility] Comment on above: Performed By: #### P REG #### [facility] [address] [place] [address] Dr. Katrin Ceja Sodium [Moles/Vol] 134 mmol/L Critically low 137-145 [facility] Comment on above: Performed By: #### P REG #### [facility] [address] [address] [address] Katrin Ceja Urea nitrogen [Mass/Vol] 6.0 mg/dL Critically low 7.0-17.0 [facility] Comment on above: Performed By: #### P REG #### [facility] [address] [place] [address] Dr. Katrin Ceja Urea nitrogen/Creatinine [Mass ratio] 7.7 mg/mg Normal [facility] Comment on above: Performed By: #### P REG #### [facility] [address] [address] [address] Katrin Ceja CBC AUTO DIFFon 04-29-2021 BASO # 0.1 103/ul Normal 0.0-0.1 [facility] Comment on above: Performed By: #### L IPID, CMP #### [facility] [address] [address] [address] Katrin Ceja Basophils/100 WBC (Bld) 0.4 % Normal 0.2-2.0 [facility] Comment on above: Performed By: #### L IPID, CMP #### [facility] [address] [place] [address] Dr. Katrin Ceja EO # 0.2 103/ul Normal 0.0-0.7 [facility] Comment on above: Performed By: #### L IPID, CMP #### [facility] [address] [place] [address] Dr. Katrin Ceja Eosinophils/100 WBC (Bld) 1.7 % Normal 0.9-7.0 [facility] Comment on above: Performed By: #### L IPID, CMP #### [facility] [address] [place] [address] Dr. Katrin Ceja Erythrocyte distribution width (RBC) [Ratio] 12.9 % Normal 11.0-15.0 [facility] Comment on above: Performed By: #### L IPID, CMP #### [facility] [address] [place] [address] Dr. Katrin Ceja Hematocrit (Bld) [Volume fraction] 39.0 % Normal 36.0-48.0 [facility] Comment on above: Performed By: #### L IPID, CMP #### [facility] [address] [place] [address] Dr. Katrin Ceja Hemoglobin (Bld) [Mass/Vol] 12.9 g/dL Normal 12.0-16.0 [facility] Comment on above: Performed By: #### L IPID, CMP #### [facility] [address] [place] [address] Dr. Katrin Ceja IG # 0.08 10e3/ul Critically high 0.00-0.03 [facility] Comment on above: Performed By: #### L IPID, CMP #### [facility] [address] [place] [address] Dr. Katrin Ceja IG % 0.6 % Critically high 0.0-0.5 [facility] Comment on above: Performed By: #### L IPID, CMP #### [facility] [address] [address] [address] Katrin Ceja LYMPH # 3.2 103/ul Normal 1.2-3.8 [facility] Comment on above: Performed By: #### L IPID, CMP #### [facility] [address] [place] [address] Dr. Katrin Ceja Lymphocytes/100 WBC (Bld) 24.4 % Normal 20.5-60.0 [facility] Comment on above: Performed By: #### L IPID, CMP #### [facility] [address] [place] [address] Dr. Katrin Ceja MANUAL DIFF REQ NO Normal [facility] Comment on above: Performed By: #### L IPID, CMP #### [facility] [address] [place] [address] Dr. Katrin Ceja MCH (RBC) [Entitic mass] 29.1 pg Normal 26.7-34.0 [facility] Comment on above: Performed By: #### L IPID, CMP #### [facility] [address] [place] [address] Dr. Katrin Ceja MCHC (RBC) [Mass/Vol] 33.1 g/dL Normal 29.9-35.2 [facility] Comment on above: Performed By: #### L IPID, CMP #### [facility] [address] [place] [address] Dr. Katrin Ceja MCV (RBC) [Entitic vol] 88.0 fL Normal 81.0-99.0 [facility] Comment on above: Performed By: #### L IPID, CMP #### [facility] [address] [place] [address] Dr. Katrin Ceja MONO # 1.2 103/ul Critically high 0.3-0.8 [facility] Comment on above: Performed By: #### L IPID, CMP #### [facility] [address] [place] [address] Dr. Katrin Ceja Monocytes/100 WBC (Bld) 9.2 % Normal 1.7-12.0 [facility] Comment on above: Performed By: #### L IPID, CMP #### [facility] [address] [address] [address] Katrin Ceja NEUT # 8.3 103/ul Critically high 1.4-6.5 [facility] Comment on above: Performed By: #### L IPID, CMP #### [facility] [address] [address] [address] Katrin Ceja Neutrophils/100 WBC (Bld) 63.7 % Normal 43.0-75.0 [facility] Comment on above: Performed By: #### L IPID, CMP #### [facility] [address] [address] [address] Katrin Ceja Platelet mean volume (Bld) [Entitic vol] 9.2 fL Critically low 9.5-13.5 [facility] Comment on above: Performed By: #### L IPID, CMP #### [facility] [address] [place] [address] Dr. Katrin Ceja PLT 384 103/ul Normal 150-450 [facility] Comment on above: Performed By: #### L IPID, CMP #### [facility] [address] [place] [address] Dr. Katrin Ceja RBC 4.43 106/ul Normal 4.20-5.40 [facility] Comment on above: Performed By: #### L IPID, CMP #### [facility] [address] [place] [address] Dr. Katrin Ceja WBC 13.1 103/ul Critically high 4.0-11.0 [facility] Comment on above: Performed By: #### L IPID, CMP #### [facility] [address] [place] [address] ABD/PELV W CONon [...] with likely bibasilar atelectasis. Electronically authenticated by: oLrenzo LAN Date: 2021-04-29 02:49 Normal [facility] LACTATE/LACTIC ACIDon 2020 Lactate [Moles/Vol] 1.2 mmol/L Normal 0.7-2.0 [facility] Comment on above: Performed By: #### C BC #### [facility] [address] [address] [address] Katrin Ceja PROF 14(COMP METB)on 021 Albumin [Mass/Vol] 3.4 g/dL Critically low 3.5-5.0 [facility] Comment on above: Performed By: #### C BC #### [facility] [address] [address] [address] Katrin Ceja Albumin/Globulin [Mass ratio] 0.7 {ratio} Normal [facility] Comment on above: Performed By: #### C BC #### [facility] [address] [address] [address] Katrin Ceja ALP [Catalytic activity/Vol] 359 U/L Critically high 38-126 [facility] Comment on above: Performed By: #### C BC #### [facility] [address] [address] [address] Katrin Ceja ALT [Catalytic activity/Vol] 193 U/L Critically high 9-52 [facility] Comment on above: Performed By: #### C BC #### [facility] [address] [place] [address] Dr. Katrin Ceja Anion gap [Moles/Vol] 13.3 mmol/L Normal [facility] Comment on above: Performed By: #### C BC #### [facility] [address] [place] [address] Dr. Katrin Ceja AST [Catalytic activity/Vol] 115 U/L Critically high 14-36 [facility] Comment on above: Performed By: #### C BC #### [facility] [address] [place] [address] Dr. Katrin Ceja Bilirubin [Mass/Vol] 0.5 mg/dL Normal 0.2-1.3 [facility] Comment on above: Performed By: #### C BC #### [facility] [address] [place] [address] Dr. Katrin Ceja Calcium [Mass/Vol] 9.5 mg/dL Normal 8.4-10.2 [facility] Comment on above: Performed By: #### C BC #### [facility] [address] [place] [address] Dr. Katrin Ceja Chloride [Moles/Vol] 101 mmol/L Normal 98-107 [facility] Comment on above: Performed By: #### C BC #### [facility] [address] [place] [address] Dr. Katrin Ceja CO2 [Moles/Vol] 23.7 mmol/L Normal 22.0-30.0 [facility] Comment on above: Performed By: #### C BC #### [facility] [address] [address] [address] Katrin Ceja Creatinine [Mass/Vol] 0.83 mg/dL Normal 0.52-1.04 [facility] Comment on above: Performed By: #### C BC #### [facility] [address] [address] [address] Katrin Ceja EGFR-AF YEMENI >60 Normal >=60 [facility] Comment on above: Performed By: #### C BC #### [facility] [address] [place] [address] Dr. Katrin Ceja EGFR-NON AF YEMENI >60 Normal >=60 [facility] Comment on above: Performed By: #### C BC #### [facility] [address] [place] [address] Dr. Katrin Ceja Globulin (S) [Mass/Vol] 5.1 g/dL Normal [facility] Comment on above: Performed By: #### C BC #### [facility] [address] [place] [address] Dr. Katrin Ceja Glucose [Mass/Vol] 102 mg/dL Normal 74-106 [facility] Comment on above: Performed By: #### C BC #### [facility] [address] [place] [address] Dr. Katrin Ceja Potassium [Moles/Vol] 4.0 mmol/L Normal 3.4-5.0 [facility] Comment on above: Performed By: #### C BC #### [facility] [address] [place] [address] Dr. Katrin Ceja Protein [Mass/Vol] 8.5 g/dL Critically high 6.1-8.2 [facility] Comment on above: Performed By: #### C BC #### [facility] [address] [place] [address] Dr. Katrin Ceja Sodium [Moles/Vol] 134 mmol/L Critically low 137-145 [facility] Comment on above: Performed By: #### C BC #### [facility] [address] [place], [place] [address] Dr. Katrin Ceja Urea nitrogen [Mass/Vol] 6.0 mg/dL Critically low 7.0-17.0 [facility] Comment on above: Performed By: #### C BC #### [facility] [address] [place], [place] [address] Dr. Katrin Ceja Urea nitrogen/Creatinine [Mass ratio] 7.2 mg/mg Normal [facility] Comment on above: Performed By: #### C BC #### [facility] [address] [place], [place] [address] Dr. Katrin Ceja XR CHEST 1 Von [...] by: HILDA GU Date: 2021-04-28 23:45 Normal [facility] Acetaminophen (Tylenol) Leve kit 03-22-2019 Acetaminophen [Mass/Vol] <10 Normal 10.0-30.0 [facility] Comment on above: Performed By: #### 1 4581-3, 74817-8, 13394-0, 68653-0z1, 33216-9, 42439-7 #### [facility] [address] [place], [place] Alcohol (Ethanol) Levelon Ethanol [Mass/Vol] mg/dL Normal 0.00-0.00 [facility] Comment on above: Performed By: #### 1 4581-3, 24967-1, 18811-4, 23241-5s0, 93059-3, 75185-1 #### [facility] [address] [place], [place] CBC with Differentialon 09-0 8-2019 Basophils (Bld) [#/Vol] 0.10 thou/mcL Normal 0.00-0.20 [facility] Comment on above: Performed By: #### 5 7021-8 #### [facility] Basophils/100 WBC (Bld) 0.7 % Normal 0.0-2.0 [facility] Comment on above: Performed By: #### 5 7021-8 #### [address] Eosinophils (Bld) [#/Vol] 0.40 thou/mcL Normal 0.00-0.70 [facility] Comment on above: Performed By: #### 5 7021-8 #### [address] Eosinophils/100 WBC (Bld) 3.7 % Normal 0.0-7.0 [facility] Comment on above: Performed By: #### 5 7021-8 #### [address] Erythrocyte distribution width (RBC) [Entitic vol] 12.6 % Normal 11.0-14.8 [facility] Comment on above: Performed By: #### 5 7021-8 #### [address] Hematocrit (Bld) [Volume fraction] 38.5 % Normal 35.0-45.0 [facility] Comment on above: Performed By: #### 5 7021-8 #### [address] Hemoglobin (Bld) [Mass/Vol] 13.3 g/dL Normal 12.0-16.0 [facility] Comment on above: Performed By: #### 5 7021-8 #### [address] Lymphocytes (Bld) [#/Vol] 3.10 thou/mcL Normal 1.00-4.80 [facility] Comment on above: Performed By: #### 5 7021-8 #### [facility] [address] [place], [place] Lymphocytes/100 WBC (Bld) 30.1 % Normal 22.0-44.0 [facility] Comment on above: Performed By: #### 7021-8 #### [facility] [address] [place], [place] MCH (RBC) [Entitic mass] 30.8 Picograms Normal 27.0-34.0 [facility] Comment on above: Performed By: #### 7021-8 #### [facility] [address] [place] [address] MCHC (RBC) [Mass/Vol] 34.7 g/dL Normal 32.0-36.0 [facility] Comment on above: Performed By: #### 70-8 #### [address] MCV (RBC) [Entitic vol] 88.8 fL Normal 80.0-97.0 [facility] Comment on above: Performed By: #### 7021-8 #### [address] Monocytes (Bld) [#/Vol] 1.10 thou/mcL High 0.00-0.90 [facility] Comment on above: Performed By: #### 7021-8 #### [address] Monocytes/100 WBC (Bld) 10.4 % Normal 0.0-12.0 [facility] Comment on above: Performed By: #### 7021-8 #### [facility] [address] [place], [place] Neutrophils (Bld) [#/Vol] 5.60 thou/mcL Normal 1.80-7.70 [facility] Comment on above: Performed By: #### 7021-8 #### [facility] [address] [place], [place] Neutrophils/100 WBC (Bld) 55.1 % Normal 40.0-70.0 [facility] Comment on above: Performed By: #### 5 7021-8 #### [facility] [address] [place], [place] Platelet mean volume (Bld) [Entitic vol] 7.5 fL Normal 6.2-12.1 [facility] Comment on above: Performed By: #### 5 7021-8 #### [facility] [address] [place], [place] Platelets (Bld) [#/Vol] 280 thou/mcL Normal 142-424 [facility] Comment on above: Performed By: #### 5 7021-8 #### [facility] [address] [place], [place] RBC (Bld) [#/Vol] 4.33 million/mcL Normal 3.80-5.10 [facility] Comment on above: Performed By: #### 5 7021-8 #### [facility] [address] [place], [place] WBC (Bld) [#/Vol] 10.2 thou/mcL Normal 4.6-10.2 [facility] Comment on above: Performed By: #### 5 7021-8 #### [facility] [address] [place], [place] Comprehensive Metabolic Pane kit 03-22-2019 Albumin [Mass/Vol] 4.2 g/dL Normal 3.5-4.8 [facility] Comment on above: Performed By: #### 1 4581-3, 31171-2, 91213-8, 80145-0q6, 22354-3, 18486-7 #### [facility] [address] [place], [place] ALP [Catalytic activity/Vol] 96 Units/L High 32-91 [facility] Comment on above: Performed By: #### 1 4581-3, 60974-7, 59332-3, 98026-9l7, 82631-2, 46107-5 #### [facility] [address] [place], [place] ALT [Catalytic activity/Vol] 25 Units/L Normal 14-63 [facility] Comment on above: Performed By: #### 1 4581-3, 36336-4, 36153-9, 44803-1f8, 12892-6, 59716-3 #### [facility] [address] [place], [place] Anion gap [Moles/Vol] 9.0 mmol/L Normal 6.0-18.0 [facility] Comment on above: Performed By: #### 1 4581-3, 95523-0, 65625-2, 20067-3w4, 23332-5, 35721-6 #### [facility] [address] [place], [place] AST [Catalytic activity/Vol] 24 Units/L Normal 15-41 [facility] Comment on above: Performed By: #### 1 4581-3, 88496-3, 36113-7, 50113-9r9, 15194-9, 91536-5 #### [id number] [place], [place] Bilirubin [Mass/Vol] 0.5 mg/dL Normal 0.3-1.2 [facility] Comment on above: Performed By: #### 1 4581-3, 22401-3, 64011-9, 17508-5h5, 03717-9, 06363-0 #### [facility] [address] [place], [place] Calcium [Mass/Vol] 8.9 mg/dL Normal 8.9-10.3 [facility] Comment on above: Performed By: #### 1 4581-3, 94894-6, 13847-7, 10832-4v3, 55648-2, 20159-2 #### [facility] [address] [place], [place] Chloride [Moles/Vol] 107 mmol/L Normal 98-107 [facility] Comment on above: Performed By: #### 1 4581-3, 78286-1, 79580-8, 12864-8l4, 67375-1, 53230-8 #### [facility] [address] [place], [place] CO2 [Moles/Vol] 23 mmol/L Normal 22-32 [facility] Comment on above: Performed By: #### 1 4581-3, 80484-0, 13009-4, 35856-7s6, 36686-5, 01294-8 #### [facility] [address] [place], [place] Creatinine [Mass/Vol] 0.68 mg/dL Normal 0.60-1.30 [facility] Comment on above: Performed By: #### 1 4581-3, 57702-3, 10737-1, 92817-1c4, 89105-6, 37622-2 #### [facility] [address] [place], [place] Glucose [Mass/Vol] 90 mg/dL Normal 70-99 [facility] Comment on above: Result Comment: U pdated ADA Reference Range A normal fasting glucose concentration is less than 100 mg/dL. An impaired fasting glucose concentration is 100-125 mg/dL. A provisional diagnosis of diabetes mellitus can be made when a fasting glucose concentration is greater than 125 mg/dL. Performed By: #### 1 4581-3, 66903-8, 54392-3, 01712-6y2, 07454-5, 34635-3 #### [facility] [address] [place], [place] Potassium [Moles/Vol] 3.4 mmol/L Low 3.6-5.1 [facility] Comment on above: Performed By: #### 1 4581-3, 11097-2, 08501-0, 94069-8q8, 63298-4, 45240-2 #### [facility] [address] [place], [place] Protein [Mass/Vol] 7.4 g/dL Normal 6.1-7.9 [facility] Comment on above: Performed By: #### 1 4581-3, 38993-0, 45416-9, 64620-5j6, 95534-4, 95630-2 #### [facility] [address] [place], [place] Sodium [Moles/Vol] 139 mmol/L Normal 136-145 [facility] Comment on above: Performed By: #### 1 4581-3, 41947-4, 68233-8, 36900-0a4, 82972-5, 58316-4 #### [facility] [address], [place] Urea nitrogen (BldV) [Mass/Vol] 17 mg/dL Normal 8-20 [facility] Comment on above: Performed By: #### 1 4581-3, 29984-3, 99964-8, 23798-3c2, 74470-6, 57203-5 #### [facility] [address] [place], [place] Drug Abuse Screen 8 Urineon 03-22-2019 Barbiturates Screen Ql (U) Negative Normal [facility] Comment on above: Performed By: #### 1 2286-1 #### [facility] [address] [place], [place] Amphetamines Ql (U) Positive Abnormal [facility] Comment on above: Result Comment: Conf irmatory testing available upon request. Performed By: #### 1 2286-1 #### [facility] [address] [place], [place] Benzodiazepines cutoff Screen (U) [Mass/Vol] Negative Normal [facility] Comment on above: Performed By: #### 1 2286-1 #### [facility] [address] [place], [place] Cocaine Ql (U) Positive Abnormal [facility] Comment on above: Result Comment: Conf irmatory testing available upon request. Performed By: #### 1 2286-1 #### [facility] [address] [place], [place] Interpretation and review of laboratory results Negative Normal [facility] Comment on above: Performed By: #### 1 2286-1 #### [facility] [address] [place], [place] Methadone Screen Ql (U) Negative Normal NEGATIVE-N EGATIVE [facility] Comment on above: Performed By: #### 1 2286-1 #### [facility] [address] [place], [place] Opiates Screen Ql (U) Negative Normal [facility] Comment on above: Result Comment: INTE RPRETATION [...] ONLY. Performed By: #### 1 2286-1 #### [place] [address] [place], [place] Tetrahydrocannabinol Screen Ql (U) Positive Abnormal [facility] Comment on above: Result Comment: Conf irmatory testing available upon request. Performed By: #### 1 2286-1 #### [place] [address] [place], [place] [facility] [address] [address] Emergency Department Discharge Instructions JENNIFER [...] Servicios de Emergencia Name JENNIFER ENGLE MRN (COL)-[id number] PLEASE READ THE FOLLOWING REGARDING YOUR MEDICATIONS [...] doses are changed, or new medications (including tiyv-gnu-bqjhbmm products) are added. If you have any [...] UNTIL YOU TALK TO YOUR DOCTOR None [address] [address] Emergency Department Discharge Instructions Name: JENNIFER ENGLE Current Date: 03/22/2019 19:32:22 : 1995 Primary Physician: Physician, No PCP We would like to thank you for choosing [facility] for your emergency medical needs. We examined [...] and the health of those around you. [facility] offers many resources to help with smoking cessation. Call the [place] Tobacco Quit Line at 9-139-NXVZ-NOW ( ). High blood pressure: Your screening [...] deadly infections. Discuss this with your child's saddle mechanic, or Public Health Department. Your family practice doctor can determine if you need pneumonia or flu vaccine. The [facility] Department can be reached at . Substance Abuse Program: Concerns with addiction to alcohol, benzodiazepines (Ativan or Xanax) and Opiates (Heroin, Percocet, OxyContin, Methadone or Fentanyl)? [facility] offers an inpatient Substance Abuse Program to help treat the symptoms associated with medical detoxification of addictive substances. The new program offers care for non- adults (18 and older) looking to break the chain to addictive chemicals. The Substance Abuse Program is a voluntary inpatient admission and it starts with a pre-screening phone call to a social media editor. During the call, goals and objectives for recovery and how the patient will transition to outpatient care will be established. Please call [phone] to get help today. Domestic Violence: If you are a victim of domestic violence (physical, verbal, or emotional), you are not alone. Discuss this with your physician or a friend and call the [place] Domestic Violence Hotline or [place] Domestic Violence Hotline for assistance and support. [...] physician, call the Physician Referral Line at (621) 985-UOBW (7640). Suicide Hotline: Your mental and emotional well-being is important. If you are in a mental health crisis or are having thoughts of suicide, please call the nationwide suicide hotline, anytime day or night, at 3-244-436-KAZH (9268). Community Cryolite Recovery Operator: You may be contacted by your local fire department for a follow up visit from a community defense analyst. The community defense analyst can help with a home safety check; follow up care, and general home care management. Pharmacy Information: Below is a list of 24 hour pharmacies that we are aware of. We suggest that you call the specific pharmacy for their hours before traveling to a location. Hours may vary on holidays. [facility] [place] [address] [address], [place] [phone] [address] [facility] [place], [place] [phone] [address], [place] [address] [phone] [address] [place], [place] [phone] [address] [place], [place] [phone] [address] [place], [place] [phone] [address] [place], [place] [phone] Take all medications as directed. If you need prescription assistance, contact the following agencies: ?? Partnership for Prescription Assistance at or www.pparx.org ?? [place]' Best Rx at or www.Semafonebestrx.org ?? www.neoSurgicalRMcLarens.Gather App is a site with many valuable coupons [...] Patient Signature Date Time Provider Signature Normal [facility] GFRaaon 03-22-2019 GFR/1.73 sq M predicted among blacks MDRD (S/P/Bld) [Vol rate/Area] mL/min/{1.73_m2} [facility] Comment on above: Result Comment: The MDRD equation has not been validated for those over 70 years, women, patients with serious co-morbid conditions, or with extremes of body size, muscle mass of nutritional status. Performed By: #### 1 4581-3, 18169-9, 05102-3, 82213-0v5, 09568-3, 75280-4 #### [facility] [address] [place], [place] GFRbbon 03-22-2019 GFR/1.73 sq M predicted among non-blacks MDRD (S/P/Bld) [Vol rate/Area] mL/min/{1.73_m2} [facility] Comment on above: Performed By: #### 1 4581-3, 07244-9, 04740-9, 61630-6f6, 60839-1, 97023-5 #### [facility] [address] [place], [place] Test Urineon 03-22 HCG ( test) Ql (U) Negative [facility] Comment on above: Performed By: #### 2 106-3 #### [facility] [address] [place], [place] Salicylate Levelon 9 Salicylates [Mass/Vol] mg/dL Normal 2.8-30.0 [facility] Comment on above: Performed By: #### 1 4581-3, 15738-8, 28865-7, 40925-8o0, 07312-3, 87914-8 #### [facility] [address] [place], [place] Medication Managementon 0 Medication Management [id number]#1.00OTGTIF F Normal [facility] ED Clinical Summaryon 2017 ED Clinical Summary [facility] - Emergency [id number] [place] [id number] ed Clinical SummaryPERSON INFORMATIONName: JENNIFER ENGLE Age: 22 Years Sex: FEMALEDOB: [birth year] MRN: Acct#:Visit Reason: Dental pain; Dental pain; DENTAL PAIN Arrival: 04/11/18 20:21:00 Discharge: 04/11/18 20:55:00LOS: 000 00:34 Check In: 04/11/18 20:21:00 Checkout:04/11/18 20:55:00Address:[address] [facility] [address]ZOC: TAI WATTS INFORMATIONProvider Role Assigned UnassignedAlistair Max [...] 04/11/18 20:29:00.Dental caries, dental painHistory of Present Khblihk12-dapp-yxd white female presents to the emergency room [...] her poor dental state..Impression and PlanDiagnosisDental caries (MMJ31-XL K02.9, Discharge, Medical)Pain, dental (ODX63-LL K08.89, Discharge, Medical)PlanCondition: Improved, Stable.Disposition: Discharged: to home.Prescriptions: Launch prescriptionsPharmacy:tra MADol 50 mg oral tablet (Prescribe): 50 mg = 1 tab(s), PO, q4hr, PRN: as needed for pain, 12 tab(s), 0 Refill(s)amoxicillin 500 mg oral capsule (Prescribe): 1,000 mg = 2 cap(s), PO, BID, 40 cap(s), 0 Refill(s).Patient was given the following educational materials: Dental Pain, Fidk-ji-Fssw, Dental Caries, Adult, Bqmy-dr-Yfvn, Dental Caries, Adult, Ayfi-uk-Dmap, Dental Pain, Tyjr-rt-Tmme.Follow up with: SOLOMON WATTS Within 3 to 5 days.Counseled: Patient, Regarding diagnosis, Regarding treatment plan, Regarding prescription, Patient indicated understanding of instructions.DISCHARGE INFORMATION:Discharge Disposition: HomeDischarge Location: HomePATIENT EDUCATION INFORMATIONInstructions: Dental Caries, Adult, Ecez-ch-Tmhw; Dental Pain, Pokg-dl-MwpsPdhgkf-Up:Wit h: Address: When:SOLOMON WATTS [facility] [address] [id number] [facility] (1) Within 3 to 5 daysDIAGNOSIS:Dental caries; Dental pain; Pain, dentalPatient Understands: Yes - Patient/family/caregiver verbalizes understanding of instructions givenComment: [facility] Note - Physicianon 2017 ED Note - Physician Patient: DOMINIC ENGLE : 22 years Sex: FEMALE : [birth year]Associated Diagnoses: Dental caries; Pain, dentalAuthor: Alistair Max InformationTime seen: Date & time 04/11/18 20:29:00.Dental caries, dental painHistory of Present Bprhpyu81-vdri-ngd white female presents to the emergency room [...] her poor dental state..Impression and PlanDiagnosisDental caries (YKP60-KD K02.9, Discharge, Medical)Pain, dental (HXH45-SZ K08.89, Discharge, Medical)PlanCondition: Improved, Stable.Disposition: Discharged: to home.Prescriptions: Launch prescriptionsPharmacy:tra MADol 50 mg oral tablet (Prescribe): 50 mg = 1 tab(s), PO, q4hr, PRN: as needed for pain, 12 tab(s), 0 Refill(s)amoxicillin 500 mg oral capsule (Prescribe): 1,000 mg = 2 cap(s), PO, BID, 40 cap(s), 0 Refill(s).Patient was given the following educational materials: Dental Pain, Zrok-sy-Vtgi, Dental Caries, Adult, Ahux-if-Qgto, Dental Caries, Adult, Gpeb-rz-Vhzz, Dental Pain, Rxfu-up-Rkcw.Follow up with: SOLOMON WATTS Within 3 to 5 days.Counseled: Patient, Regarding diagnosis, Regarding treatment plan, Regarding prescription, Patient indicated understanding of instructions.[Electronica lly Signed on: 04/11/2018 20:42 EDT] Alistair Salomon MD[Verified on: 04/11/2018 20:42 EDT] Alistair Salomon MD [facility] ED Patient Education Noteon 04-11-2018 ED [...] mouth and teeth. This keeps them healthy.? [place] your teeth 2 times a day. Use toothpaste with fluoride in it.? Floss your teeth once a day.? If your dentist prescribed an antibiotic medicine to treat an infection, take it as told. Do not stop taking the antibiotic even if your condition gets better.? Keep all follow-up visits as told by your dentist. This is important. This includes all cleanings.Preventing dental caries? [place] your teeth every morning and night. Use [...] Reviewed: 03/17/2017[employer] Patient Education ? 2017 [employer].Dental PainDental pain may be caused by many [...] Reviewed: 06/27/2015[employer] Patient Education ? 2018 [employer]. Normal [facility] ED Patient Summaryon 018 ED Patient Summary [facility] - Emergency [id number] [place] [id number] pATIENT DISCHARGE INSTRUCTIONSPatient InformationName: JENNIFER ENGLE Age: 22 YearsDate of : [birth year]MRN: [id number] Visit: Dental pain; Dental pain; DENTAL PAINArrival Time: 04/11/18 20:21:00[facility]: [facility] Phys[facility]: Maryam WATTS Physician: lAistair Max MDComment:Visit Diagnosis:Diagnoses This Visit Dental caries (K02.9) Dental pain (K08.8) Dental pain ([id number]) Dental pain ([id number]) Pain, dental (K08.89)If you received any narcotics, [...] or sign any legal documentsWith: Address: When:[place] [address] Business (1) Within 3 to 5 daysMedication Information:The exam and treatment you received today in the [place] [facility] were for an urgent problem and are not intended as complete care. It is important for you to follow up with a doctor, nurse practitioner, or physician?s assistant cross country coach for ongoing care. If your symptoms become [...] number so we can reach you if necessary.[facility] Emergency Department has provided you with a complete list of medications post discharge. Please inform your commodity loan clerk/provider of your visit and for further instruction [...] mouth and teeth. This keeps them healthy.? [place] your teeth 2 times a day. Use toothpaste with fluoride in it.? Floss your teeth once a day.? If your dentist prescribed an antibiotic medicine to treat an infection, take it as told. Do not stop taking the antibiotic even if your condition gets better.? Keep all follow-up visits as told by your dentist. This is important. This includes all cleanings.Preventing dental caries? [place] your teeth every morning and night. Use [...] Reviewed: 06/27/2015Kenny [employer] Patient Education ? 2018 [employer] Viruses or BacteriaWhat?s got you sick?Antibiotics [...] for Disease Control and Prevention March 2014 [facility] Vital Signs Date Time Vital Sign Value Performing Clinician Facility 03-19-2024 00:22-0400 Diastolic blood pressure 81 mm[Hg] [facility] 03-19-2024 00:22-0400 Heart rate 97 /min [facility] 03-19-2024 00:22-0400 Respiratory rate 18 /min [facility] 03-19-2024 00:22-0400 SaO2% (BldA) [Mass fraction] 98 % [facility] 03-19-2024 00:22-0400 Systolic blood pressure 113 mm[Hg] [facility] 03-18-2024 21:56-0400 Body temperature 98.2 [degF] [facility] 03-18-2024 21:54-0400 Body height 167.64 cm [facility] 03-18-2024 21:54-0400 Body weight 97.52 kg [facility] 03-05-2024 12:39-0400 Body height 167.64 cm [facility] 03-05-2024 12:39-0400 Body mass index (BMI) [Ratio] 37.1 kg/m2 [facility] 03-05-2024 12:39-0400 Body temperature 97.6 [degF] [facility] 03-05-2024 12:39-0400 Body weight 104.32 kg [facility] 03-05-2024 12:39-0400 Diastolic blood pressure 84 mm[Hg] [facility] 03-05-2024 12:39-0400 Heart rate 90 /min [facility] 03-05-2024 12:39-0400 Respiratory rate 18 /min [facility] 03-05-2024 12:39-0400 SaO2% (BldA) [Mass fraction] 99 % [facility] 03-05-2024 12:39-0400 Systolic blood pressure 118 mm[Hg] [facility] 05-07-2023 13:15-0400 Body height 167.64 cm Key Patel Other [facility] Other 05-07-2023 13:15-0400 Body mass index (BMI) [Ratio] 37.54 kg/m2 Key Patel Other [facility] Other 05-07-2023 13:15-0400 Body temperature 97.8 [degF] Key Patel Other [facility] Other 05-07-2023 13:15-0400 Body weight 105.51 kg Key Patel Other [facility] Other 05-07-2023 13:15-0400 Respiratory rate 18 /min Key Patel Other [facility] Other 05-07-2023 13:15-0400 SaO2% (BldA) [Mass fraction] 98 % Key Patel Other [facility] Other 11-08-2022 13:50-0400 Body height 167.64 cm Chase Saldana Other [facility] Other 11-08-2022 13:50-0400 Body mass index (BMI) [Ratio] 35.51 kg/m2 Gabrieldavie Les Other [facility] Other 11-08-2022 13:50-0400 Body weight 99.79 kg Chase Les Other [facility] Other 04-26-2022 11:55-0400 Body height 167.64 cm Autumn Restrepoault Other [facility] Other 04-26-2022 11:55-0400 Body mass index (BMI) [Ratio] 35.02 kg/m2 Autumn Donell Other [facility] Other 04-26-2022 11:55-0400 Body temperature 97.7 [degF] Autumn Donell Other [facility] Other 04-26-2022 11:55-0400 Body weight 98.43 kg Autumn Donell Other [facility] Other 04-26-2022 11:55-0400 Diastolic blood pressure 82 mm[Hg] Autumn Donell Other [facility] Other 04-26-2022 11:55-0400 Respiratory rate 18 /min Autumn Donell Other [facility] Other 04-26-2022 11:55-0400 SaO2% (BldA) [Mass fraction] 98 % Autumn Donell Other [facility] Other 04-26-2022 11:55-0400 Systolic blood pressure 122 mm[Hg] Autumn Marley Other [facility] Other 04-23-2022 10:50-0400 Body height 167.64 cm Autumn Marley Other [facility] Other 04-23-2022 10:50-0400 Body mass index (BMI) [Ratio] 33.89 kg/m2 Autumn Marley Other [facility] Other 04-23-2022 10:50-0400 Body temperature 97.8 [degF] Autumn Marley Other [facility] Other 04-23-2022 10:50-0400 Body weight 95.26 kg Autumn Marley Other [facility] Other 04-23-2022 10:50-0400 Respiratory rate 18 /min Autumn Marley Other [facility] Other 04-23-2022 10:50-0400 SaO2% (BldA) [Mass fraction] 98 % Autumn Marley Other [facility] Other 03-27-2022 10:15-0400 Body height 167.64 cm Deb Simon Other [facility] Other 03-27-2022 10:15-0400 Body mass index (BMI) [Ratio] 34.38 kg/m2 Deb Simon Other [facility] Other 03-27-2022 10:15-0400 Body temperature 97.4 [degF] Deb Simon Other [facility] Other 03-27-2022 10:15-0400 Body weight 96.62 kg Deb Simon Other [facility] Other 03-27-2022 10:15-0400 Respiratory rate 18 /min Deb Simon Other [facility] Other 03-27-2022 10:15-0400 SaO2% (BldA) [Mass fraction] 96 % Deb Simon Other [facility] Other 04-05-2021 16:10-0400 Body height 167.64 cm Lucinda Naomi Other [facility] Other 04-05-2021 16:10-0400 Body mass index (BMI) [Ratio] 33.25 kg/m2 Lucinda Naomi Other [facility] Other 04-05-2021 16:10-0400 Body temperature 97.3 [degF] Lucinda Naomi Other [facility] Other 04-05-2021 16:10-0400 Body weight 93.44 kg Lucinda Naomi Other [facility] Other 04-05-2021 16:10-0400 Diastolic blood pressure 74 mm[Hg] Lucinda Naomi Other [facility] Other 04-05-2021 16:10-0400 Respiratory rate 18 /min Lucinda Naomi Other [facility] Other 04-05-2021 16:10-0400 SaO2% (BldA) [Mass fraction] 99 % Lucinda Naomi Other [facility] Other 04-05-2021 16:10-0400 Systolic blood pressure 111 mm[Hg] Lucinda Naomi Other [facility] Other Encounters Encounter Date Encounter Type Care Provider Facility Start: 04-14-2024 ambulatory [facility] Start: 04-10-2024 ambulatory Gerald Howard acility:[facility] Start: 04-01-2024 End: 04-01-2024 ambulatory KENIA PEREZ Not Available Start: 03-18-2024 End: 03-19-2024 Emergency department patient visit [facility] Work Phone: Start: 03-18-2024 End: 03-18-2024 ambulatory NON STAFF [facility] Work Phone: Start: 03-18-2024 End: 03-18-2024 Patient encounter procedure [facility] [place] Work Phone: Start: 03-10-2024 ambulatory [facility] Start: 03-06-2024 Registered Rec[facility]ring [facility] Start: 03-05-2024 End: 03-05-2024 ambulatory NON STAFF [facility] Work Phone: Start: 03-05-2024 End: 03-05-2024 Patient encounter procedure [facility] [place] Work Phone: Start: 03-05-2024 End: 03-05-2024 ambulatory KAMLA PRYOR Not Available Start: 02-27-2024 End: 02-27-2024 ambulatory KENIA PEREZ Not Available Start: 02-13-2024 End: 02-14-2024 Emergency department patient visit HALEIGH CHAVEZ [facility] Start: 02-12-2024 End: 02-12-2024 ambulatory COLÓN SHAREED Not Available Start: 02-07-2024 Registered Recurring [facility] Start: 02-03-2024 End: 02-03-2024 ambulatory COLÓN FAWWAD Not Available Start: 01-30-2024 End: 01-30-2024 ambulatory KENIA PEREZ Not Available Start: 01-09-2024 End: 01-09-2024 ambulatory KENIA CHINGOLL Not Available Start: 01-02-2024 End: 01-02-2024 ambulatory MARY W WIGGINS Not Available Start: 12-28-2023 End: 12-29-2023 Emergency department patient visit [facility] Start: 12-16-2023 End: 12-16-2023 ambulatory SHAIKH LEONARDO Not Available Start: 12-11-2023 End: 12-11-2023 Emergency department patient visit [facility] Start: 12-10-2023 End: 12-10-2023 ambulatory CHRISTOPHER ROYA Not Available Start: 12-05-2023 End: 12-05-2023 ambulatory CHRISTOPHER ROYA Not Available Start: 12-05-2023 End: 12-05-2023 ambulatory MARY W WIGGINS Not Available Start: 12-02-2023 End: 12-02-2023 ambulatory MAICOL LIU Not Available Start: 11-26-2023 End: 11-26-2023 ambulatory SHAIKH LEONARDO Not Available Start: 11-25-2023 End: 11-26-2023 Emergency department patient visit [facility] Start: 11-25-2023 End: 11-27-2023 Emergency department patient visit HALEIGH CHAVEZ [facility] Start: 11-21-2023 End: 11-21-2023 ambulatory MARY W WIGGINS Not Available Start: 11-16-2023 End: 11-16-2023 Emergency department patient visit [facility] Start: 10-30-2023 End: 10-30-2023 ambulatory JOHN HADDAD Not Available Start: 10-15-2023 End: 10-15-2023 ambulatory SHAIKH LEONARDO Not Available Start: 10-09-2023 End: 10-09-2023 Emergency department patient visit [facility] Start: 09-21-2023 End: 09-22-2023 Emergency department patient visit MARTELL Betancourt [facility] Start: 09-21-2023 End: 09-22-2023 Emergency department patient visit MARTELL Betancourt OTERO [facility] Start: 08-27-2023 End: 08-27-2023 Emergency department patient visit [facility] Start: 07-09-2023 End: 07-09-2023 [facility] Start: 05-07-2023 End: 05-07-2023 ambulatory Key Patel Other [facility] Other Start: 05-07-2023 Office outpatient visit 15 minutes Key Patel [facility] Start: 02-19-2023 [facility] Facility[facility] Start: 11-08-2022 Office outpatient visit 15 minutes Chase Saldana [facility] Start: 11-08-2022 End: 11-08-2022 ambulatory Chase Saldana Other [facility] Other Start: 11-08-2022 End: 11-08-2022 Departed Referred PA-C Chase Saldana Work Phone: [facility] [place] Work Phone: Start: 04-26-2022 End: 04-26-2022 ambulatory Autumn Marley Other [facility] Other Start: 04-26-2022 Office outpatient visit 15 minutes Autumn Marley [facility] Start: 04-23-2022 End: 04-23-2022 ambulatory Autumndavid Marley Other [facility] Other Start: 04-23-2022 Office outpatient visit 15 minutes Autumndavid Marley [facility] Start: 04-03-2022 End: 04-03-2022 ambulatory COLÓN H FAWWAD Facility:[facility] Start: 03-27-2022 End: 03-27-2022 ambulatory Deb Simon Other [facility] Other Start: 03-27-2022 Office outpatient visit 25 [...] [place] Start: 04-12-2018 End: 04-12-2018 Patient encounter [facility] Facility:[facility] Start: 04-11-2018 End: 04-12-2018 Emergency department patient visit Alistair Leija Facility:[facility] Plan of Treatment Date Care Activity Detail Author Start: 11-08-2022 Bacteria identified in Urine by Culture Urine Culture [facility] Patient Education Panic Attack ED [facility] Work Phone: Patient referral [facility] Work Phone: Immunizations Immunization Date Immunization Notes Care Provider Fa cility 01-26-2020 Toradol per 15 mg Lucinda Dym ond Other [facility] Other 09-08-2019 Rocephin 500 mg Lucinda Dymon d Other [facility] Other Payers Date Payer Category Payer Medicaid [id number] 2. [id number] 2018 Unknown 1993 Unknown [id number] 2.16.84 0.1.179752.3.579.2.593 1993 Unknown [id number] 2.16.84 0.1.379496.3.579.2.593 1993 Unknown [id number] 2.16.84 0.1.055241.3.579.2.593 1993 Unknown [id number] 2.16.84 0.1.640300.3.579.2.593 1993 Unknown [id number] 2.16.84 0.1.880205.3.579.2.593 1993 Unknown [id number] 2.16.84 0.1.163945.3.579.2.593 1993 Unknown [id number] 2.16.84 0.1.333928.3.579.2.593 1993 Unknown [id number] 2.16.84 0.1.021841.3.579.2.593 1993 Unknown [id number] 2.16.84 0.1.634870.3.579.2.593 1993 Unknown [id number] 2.16.84 0.1.872948.3.579.2.593 1993 Unknown [id number] 2.16.84 0.1.632435.3.579.2.593 1993 Unknown [id number] 2.16.84 0.1.411214.3.579.2.593 1993 Unknown [id number] 2.16.84 0.1.422357.3.579.2.593 1993 Unknown [id number] 2.16.84 0.1.701445.3.579.2.593 1993 Unknown [id number] 2.16.84 0.1.438660.3.579.2.1259 1993 Unknown [id number] 2.16.84 0.1.546810.3.579.2.1259 1993 Unknown [id number] 2.16.84 0.1.884315.3.579.2.1259 1993 Unknown [id number] 2.16.84 0.1.660091.3.579.2.1259 1993 Unknown [id number] 2.16.84 0.1.153639.3.579.2.1259 1993 Unknown [id number] 2.16.84 0.1.805123.3.579.2.1259 1993 Unknown [id number] 2.16.84 0.1.914614.3.579.2.1259 1993 Unknown [id number] 2.16.84 0.1.101668.3.579.2.1259 1993 Unknown [id number] 2.16.84 0.1.201030.3.579.2.1259 1993 Unknown [id number] 2.16.84 0.1.702184.3.579.2.1259 1993 Unknown [id number] 2.16.84 0.1.883742.3.579.2.1259 1993 Unknown [id number] 2.16.84 0.1.863359.3.579.2.1259 1993 Unknown [id number] 2.16.84 0.1.162009.3.579.2.1259 1993 Unknown [id number] 2.16.84 0.1.643951.3.579.2.1259 1993 Unknown [id number] 2.16.84 0.1.407362.3.579.2.1259 1993 Unknown [id number] 2.16.84 0.1.781807.3.579.2.1259 1993 Unknown [id number] 2.16.84 0.1.429940.3.579.2.1259 1993 Unknown [id number] 2.16.8 40.1.596213.3.579.2.1286 1993 Unknown [id number] 2.16.8 40.1.987506.3.579.2.1286 1993 Unknown [id number] 2.16.8 40.1.365333.3.579.2.1286 1993 Unknown [id number] 2.16.8 40.1.984135.3.579.2.1286 1993 Unknown [id number] 2.16.8 40.1.578800.3.579.2.1286 1993 Unknown [id number] 2.16.8 40.1.938043.3.579.2.1286 1993 Unknown [id number] 2.16.8 40.1.130420.3.579.2.1286 1993 Unknown [id number] 2.16.8 40.1.699331.3.579.2.1286 1993 Unknown [id number] 2.16.8 40.1.740276.3.579.2.1286 1993 Unknown [id number] 2.16.8 40.1.578154.3.579.2.1286 1993 Unknown [id number] 2.16.8 40.1.436560.3.579.2.1286 1993 Unknown [id number] 2.16.8 40.1.687986.3.579.2.1286 1993 Unknown [id number] 2.16.8 40.1.499516.3.579.2.1286 1993 Unknown [id number] 2.16.8 40.1.894171.3.579.2.1286 1993 Unknown [id number] 2.16.8 40.1.229730.3.579.2.1286 1993 Unknown [id number] 2.16.8 40.1.427350.3.579.2.1286 1993 Unknown [id number] 2.16.84 0.1.622382.3.579.2.1286 1959 Self-pay 1959 Unknown [id number] 2.1 6.840.1.754341.19 1959 Unknown [id number] Unknown [facility] [id number] Unknown [id number] 2.16.8 40.1.948708.3.579.2.531 Unknown [id number] 2.16.8 40.1.279228.3.579.2.531 Social History Date Type Detail Facility Unknown if ever smoked [facility] [employer] Other Sex Assigned At Sex Assigned At [facility] [employer] Other Start: 08-24-2018 Tobacco smoking status [facility] Smoker (finding) [facility] Start: 1995 Sex Assigned At Female [facility] Start: 03-05-2024 End: 03-18-2024 Tobacco smoking status [facility]VIS Ex-smoker (finding) [facility] NEGATED: Highlighted row [facility] Clinical Notes 04-05-2021 to 11-25-2023 Note Date & Type Note Facility 11-25-2023 Note XR CHEST 2 VWS Procedure: Chest x-ray performed Number of views:1 History:Shortness of breath Comparison:05/27/2023 Findings: The heart and lungs show no acute findings, and the mediastinum and santhosh are grossly negative . Impression: 1. No acute change. Finalized by Sridhar Cook MD on 11/25/2023 10:14 PM [facility] 05-07-2023 Evaluation note Encounter Date Diagnosis Assessment Notes Apr, Ingrown nail of great toe of left foot (ICD-10 - L60.0) Patient is currently on clindamycin for dental infection. Instructed to continue taking that as instructed. Instructed mother and patient to soak left foot in Epsom salt or antibacterial soapy water. Patient should seek care chief of staff doctor for excision of left great toe ingrown toenail. May use Tylenol and/or Motrin as needed per label instructions for pain. All questions and addressed. [facility] Other 04-27-2023 Evaluation note* Encounter Date Diagnosis Assessment Notes Treatment Notes Treatment Clinical Notes Oct, Dysuria (ICD-10 - R30.0) Oct, Acute cystitis with hematuria (ICD-10 - N30.01) [facility] Other 10-13-2022 Evaluation note* Encounter Date Diagnosis Assessment Notes Treatment Notes Treatment Clinical Notes Apr, Sore throat (ICD-10 - J02.9) Strep test is negative in office today. Apr, Bronchitis (ICD-10 - J40) Continue current treatment plan. Recommend follow up with primary care provider if symptoms are not improved and decrease smoking as smoking worsens coughing [facility] Other 10-10-2022 Evaluation note* Encounter Date Diagnosis [...] it will take longer to get better [facility] Other 09-13-2022 Evaluation note* Encounter Date Diagnosis [...] treatment plan. Patient left in stable condition [facility] Other 04-05-2022 NotePROCEDURE: XR ELBOW RT MIN 3 VIEWS HISTORY: Pain after falling COMPARISON: None. FINDINGS: BONES:No fracture, acute abnormality, or significant arthropathy. SOFT TISSUES:No visible soft tissue swelling. EFFUSION:None visible. OTHER: Negative. IMPRESSION: 1. No acute bone abnormality. Electronically authenticated by: NICOL RAMACHANDRAN Date: 2021-10-17 06:46[facility]09-22-2021 Evaluation note* Encounter Date Diagnosis Assessment Notes Treatment Notes Treatment Clinical Notes Mar, Conjunctivitis of left eye, unspecified conjunctivitis type (ICD-10 - H10.9) Conjunctivitis material was printed. Use the eyedrops as prescribed. Good handwashing. Off school today and tomorrow. Follow-up with your family physician if no improvement in 2 to 3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
--- NOTE | 2024-04-27 13:48 | ED_ITS ---
HPI - Dental/Oral General Chief complaint: Dental/Oral Stated complaint: MOUTH PAIN Time Seen by Provider: 04/27/24 13:41 Source: patient Mode of arrival: walk-in Limitations: no limitations History of Present Illness HPI Narrative: 28 year old female presents to the ED for left lower dental pain. Onset was 4-5 days ago. She was evaluated here on 04/24/24 for the same. States the Tylenol #3 she was prescribed is not helping. She is taking Clindamycin and Motrin as directed. She is also asking for more of the medicated topical solution she was given at the previous visit. Denies fever, chills, SOB, difficulty swallowing. Denies chance of . Related Data Home Medications ?Medication ?Instructions ?Recorded ?Confirmed oxcarbazepine 300 mg tablet 300 mg PO BID 11/26/23 04/24/24 alprazolam 0.5 mg tablet 0.5 mg PO DAILY PRN anxiety 04/24/24 04/24/24 jsttcjretn-xsmzbttmpfvcm-vzympybv 1 cap PO Q6H PRN pain 04/24/24 04/24/24 50 mg-300 mg-40 mg capsule cholecalciferol (vitamin D3) 10 04/24/24 mcg (400 unit) capsule (Vitamin D3) cyclobenzaprine 5 mg tablet 5 mg PO DAILY 04/24/24 04/24/24 rizatriptan 5 mg tablet 5 mg PO Q2H PRN migraine headache 04/24/24 04/24/24 Previous Rx's ?Medication ?Instructions ?Recorded acetaminophen 300 mg-codeine 30 mg 1 tab PO Q6H PRN pain 5 days #20 04/24/24 tablet tabs clindamycin HCl 300 mg capsule 300 mg PO Q6H 10 days #40 caps 04/24/24 ibuprofen 800 mg tablet 800 mg PO Q8H PRN pain #20 tabs 04/24/24 hydrocodone 5 mg-acetaminophen 325 1 tab PO Q8H PRN pain 4 days #10 04/27/24 mg tablet tabs Allergies Allergy/AdvReac Type Severity Reaction Status Date / Time Penicillins Allergy Mild Hives Verified 04/27/24 13:14 latex Allergy Unknown Rash Verified 04/27/24 13:14 ibuprofen AdvReac Mild Gastrointestinal Verified 04/27/24 13:14 Upset Sulfa (Sulfonamide AdvReac Mild Hives Verified 04/27/24 13:14 Antibiotics) Review of Systems ROS Constitutional Denies: fever or chills Ears, nose, mouth, and throat Reports: other (Dental pain); Denies: throat pain or neck pain Cardiovascular Denies: chest pain Respiratory Denies: shortness of breath Neurological Denies: headache [facility] Social History Smoking status: Former smoker Little interest or pleasure in doing things: not at all Feeling down, depressed, or hopeless: not at all Exam Constitutional Vital Signs, click to edit/add: Last Vital Signs Temp 98 F 04/27/24 13:14 Pulse 89 04/27/24 13:14 Resp 20 04/27/24 13:14 BP 142/100 H 04/27/24 13:14 O2 Del Method Room Air 04/27/24 13:14 Common normals: no apparent distress and oriented x3 General appearance: cooperative [facility] Other: Dental caries throughout. Multiple missing teeth, broken/cracked teeth. No swelling to floor of mouth. No facial swelling. Pt speaking in full sentences, handling secretions well. No drainable abscess. Eye Common normals: conjunctivae normal and no scleral icterus Neck & C-Spine Common normals: supple Chest Chest: symmetrical chest wall rise Respiratory Common normals: normal respiratory effort Effort & inspection: able to speak in complete sentences Cardio Common normals: regular rate Neuro Common normals: oriented x3 and moves all extremities Sensorium/orientation: awake and alert Speech: speech normal Course Vital Signs Vital signs: Vital Signs Temperature 98 F 04/27/24 13:14 Pulse Rate 89 04/27/24 13:14 Respiratory Rate 20 04/27/24 13:14 Blood Pressure 142/100 H 04/27/24 13:14 Oxygen Delivery Method Room Air 04/27/24 13:14 Temperature 98 F 04/27/24 13:14 Pulse Rate 89 04/27/24 13:14 Respiratory Rate 20 04/27/24 13:14 Blood Pressure 142/100 H 04/27/24 13:14 Oxygen Delivery Method Room Air 04/27/24 13:14 MDM - Dental/Oral MDM Narrative Medical decision making narrative: The patient reported the tylenol #3 she has been taking has not been helping. OARRS review was attempted, but unavailable. The patient was advised to continue the clindamycin as directed. She was advised to contact her insurance for a list of dentists. She reported calling the dentists the list she was given at the previous visit; she reported they do not take her insurance A prescription was provided for norco. Return precautions were discussed.. Differential Diagnosis Differential diagnosis: Likely gingival abscess, dental caries, toothache and dental abscess Discharge Plan Discharge Chief Complaint: Dental/Oral Clinical Impression: Dental caries, Pain, dental Patient Disposition: Home, Self-Care Time of Disposition Decision: 13:55 Condition: Good Mode of Transportation: Private Vehicle Prescriptions / Home Meds: New hydrocodone-acetaminophen 5-325 mg tablet 1 tab PO Q8H PRN (Reason: pain) 4 Days Qty: 10 0RF No Action oxcarbazepine 300 mg tablet 300 mg PO BID alprazolam 0.5 mg tablet 0.5 mg PO DAILY PRN (Reason: anxiety) rizatriptan 5 mg tablet 5 mg PO Q2H PRN (Reason: migraine headache) cholecalciferol (vitamin D3) [Vitamin D3] 10 mcg (400 unit) capsule cyclobenzaprine 5 mg tablet 5 mg PO DAILY gpglrxyvvk-rtxxuzejshteb-gojh 50-300-40 mg capsule 1 cap PO Q6H PRN (Reason: pain) acetaminophen-codeine 300-30 mg tablet 1 tab PO Q6H PRN (Reason: pain) 5 Days Qty: 20 0RF clindamycin HCl 300 mg capsule 300 mg PO Q6H 10 Days Qty: 40 0RF ibuprofen 800 mg tablet 800 mg PO Q8H PRN (Reason: pain) Qty: 20 0RF Print Language: Belarusian Instructions: Toothache (ED) Additional Instructions: Return to the ER for new or worsening symptoms. Follow up with a dentist for a recheck, further evaluation and treatment. Referrals: Shaikh Langley MD [Primary Care Provider] - 1 week Discharge Date/Time: 04/27/24 14:04
[2024-04-27] MEDS: BENZOCAINE 30 ML, lidocaine HCL 15 ML MM (13:56)
[2024-04-27] MEDS: HYDROCODONE/ACET 5-325 MG TABLET 1 TAB PO (13:57)
== END 2024-04-27 14:04 | disposition home or self-care (01) ==
PROVIDERS: Emergency Provider Student in an Organized Health Care Education/Training Program; PCP Internal Medicine
DX: K02.9 Dental caries, unspecified (principal); K08.89 Other specified disorders of teeth and supporting structures; Z87.891 Personal history of nicotine dependence
CPT/HCPCS: 99283

== ENCOUNTER 2024-05-20 22:41 | Emergency (ER) | payer MEDICAID, SELFPAY ==
[2024-05-20 22:44] VITALS: BP 137/88; PULSE 97; TEMP 36.6; O2SAT 97; BMI 34.4
--- OUTSIDE RECORDS SUMMARY | 2024-05-20 22:47 | XMS_ITS | CCD ---
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 Unremarkable SINUSES: Unremarkable ORBITS: Grossly unremarkable MASTOIDS: Unremarkable ENHANCEMENT: No pathologic enhancement. MR/MR head/brain wo/w con IMPRESSION: No acute intracranial process. No mesial temporal sclerosis. No pathologic enhancement. Impression dictated by: Juan Luis Baldwin M.D.05/11/2024 11:05 PM Dictation Location: [place] [address] Transcribed By: [facility] 05/11/242304 Dictated By: Juan Luis Baldwin DO 05/11/242301 Signed By: 05/11/242304 Normal [facility] MR lumbar spine wo conon MR lumbar spine wo con [facility] Main [place] [id number] MRI Report Signed Patient: Jennifer Engle MR#: [id number] 8 : 1995 Acct:[id number] Age/Sex: 29 / F ADM Date: 05/11/24 Loc: Room: Type: [facility] Attending Dr: Kenia LIN Copies to: DELIA Mtz Ordering Provider: DELIA Mtz Date of Service: 05/11/24 MR/MR lumbar spine wo con: M54.5 MRI Lumbar Spine withoutcontrast TECHNIQUE: Multiplanar T1 and T2-weighted imaging of lumbar spine obtained without contrast. HISTORY: Chronic back pain COMPARISON: None The last fully segmented vertebral pair is operationally defined as L5/S1. POST SURGERY CHANGES: None BONE MARROW INFILTRATION: Fatty marrow replacement changes. BONE MARROW EDEMA: None BONY ALIGNMENT: Adequate bony alignment identified. SPINAL CANAL: No significant central canal narrowing. LUMBAR FRACTURE: None BONY LESIONS: None KIDNEYS: No hydronephrosis is identified. AORTA: No aortic aneurysm is seen. CONUS MEDULLARIS : The distal spinal cord is in adequate position without abnormality. Additional findings CONJOINED NERVE ROOT: None Lower thoracic level: Unremarkable L1-2 :Unremarkable L2-3: Unremarkable L3-4: Unremarkable L4-5: Unremarkable L5-S1: Moderate spondylosis. Diffuse disc bulge. Patent central canal. Mild bilateral neural foraminal narrowing mild facet degeneration. MR/MR lumbar spine wo con IMPRESSION: L5-S1 discovertebral degenerative changes. Patent central canal. Mild L5-S1 bilateral neural foraminal narrowing. 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 May consider lymphoproliferative diseases. Pre-MRI plain film assessment: None Impression dictated by: Juan Luis Baldwin M.D.05/11/2024 11:02 PM Dictation Location: [place] [address] Transcribed By: [facility] 05/11/242301 Dictated By: Juan Luis Baldwin DO 05/11/24 472 Signed By: 05/11/242301 Normal [facility] XR CHEST 2 VWSon 04-28-2024 XR CHEST 2 VWS XR CHEST 2 VWS HISTORY: A 28-year-old female with the history of the osteoma. EXAM/TECHNIQUE: CHEST: PA and lateral views COMPARISON: Comparison is made with prior chest examination of 02/13/2024. FINDINGS: Both lungs and costophrenic angles are clear. There is no evidence of pulmonary infiltrate or acute pulmonary pathology. The cardiac silhouette is within normal limits. The trachea is in midline. The mediastinum is otherwise unremarkable. The hemidiaphragms are normal in position. The bony rib cage is intact. IMPRESSION: * No evidence of pulmonary infiltrate, acute pulmonary pathology or significant interval change. Finalized by Kwesi Vincent MD on 04/28/2024 2:10 PM Normal [facility] ECG 12 lead ECGon 03-18-2024 ECG 12 lead ECG [facility] Main [place] [address] [place] [address] Electrocardiograph Report Signed Patient: Jennifer Engle MR#: [id number] 8 : 1995 Acct:[id number] Age/Sex: 28 / F ADM Date: 03/18/24 Loc: ER Room: Type: [facility] ER Attending Dr: Ordering Provider: Estefani Alexander Jr, MD Date of Service: 03/18/2411/05/2154 ECG/ECG [...] No previous ECGs available Confirmed by ESTEFANI ALEXANDER MD ([id number]) on 03/20/2024 5:58:53 AM Referred By: Electronically Signed By: ESTEFANI ALEXANDER MD Transcribed By: MUS Signed By Estefani Alexander Jr, MD 0558 Normal [facility] Influenza virus B Ag [Presen ce] in Upper respiratory specimen by Rapid immunoassayon 03-05-2024 FLUBV Ag IA.rapid Ql (Nph) Negative [facility] No Panel Informationon 03-05 Influenza Type A (Rapid) Negative [facility] POC SARS CoV-2 Antigen Negative [facility] Troponin I.cardiac High sens itivity method [Mass/Vol]on 02-14-2024 1 HOUR TROP I, HIGH SENSITIVITY 3 ng/L Normal <16 [facility] Comment on above: Performed By: #### 8 9579-7 ####[facility] ([id number])[address] [place] [address] 06430 CBC AND AUTO DIFFon 02-13-20 24 ABSOLUTE BASOPHIL 0.0 X10E9/L Normal 0.0-0.2 [facility] Comment on above: Performed By: #### 2 106-3 #### [facility] ([id number]) [address] [place] [address] 75592 ABSOLUTE NEUTROPHIL 7.5 X10E9/L High 1.5-6.6 [facility] Comment on above: Performed By: #### 2 106-3 #### [facility] ([id number]) [address] [place] [address] 36524 Basophils/100 WBC (Bld) 0.3 % Normal [facility] Comment on above: Performed By: #### 2 106-3 #### [facility] ([id number]) [address] [place] [address] 78205 Eosinophils (Bld) [#/Vol] 0.1 10*3/uL Normal 0.0-0.4 [facility] Comment on above: Performed By: #### 2 106-3 #### [facility] ([id number]) [address] [place] [address] 01769 Eosinophils/100 WBC (Bld) 0.8 % Normal [facility] Comment on above: Performed By: #### 2 106-3 #### [facility] ([id number]) [address] [place] [address] 37556 Erythrocyte distribution width (RBC) [Ratio] 13.7 % Normal 11.5-15.0 [facility] Comment on above: Performed By: #### 2 106-3 #### [facility] ([id number]) [address] [place] [address] 09993 Hematocrit (Bld) [Volume fraction] 35.8 % Normal 35-47 [facility] Comment on above: Performed By: #### 2 106-3 #### [facility] ([id number]) [address] [place] [address] 28689 Hemoglobin (Bld) [Mass/Vol] 12.5 g/dL Normal 11.7-15.5 [facility] Comment on above: Performed By: #### 2 106-3 #### [facility] ([id number]) [address] [place] [address] 93546 Lymphocytes (Bld) [#/Vol] 3.4 10*3/uL Normal 1.0-3.5 [facility] Comment on above: Performed By: #### 2 106-3 #### [facility] ([id number]) [address] [place] [address] 71778 Lymphocytes/100 WBC (Bld) 29.4 % Normal [facility] Comment on above: Performed By: #### 2 106-3 #### [facility] ([id number]) [address] [place] [address] 19524 MCH (RBC) [Entitic mass] 29.8 pg Normal 27-34 [facility] Comment on above: Performed By: #### 2 106-3 #### [facility] ([id number]) [address] [place] [address] 82851 MCHC (RBC) [Mass/Vol] 35.0 g/dL Normal 32-36 [facility] Comment on above: Performed By: #### 2 106-3 #### [facility] ([id number]) [address] [place] [address] 63126 MCV (RBC) [Entitic vol] 85 fL Normal 80-100 [facility] Comment on above: Performed By: #### 2 106-3 #### [facility] ([id number]) [address] [place] [address] 72687 Monocytes (Bld) [#/Vol] 0.6 10*3/uL Normal 0-0.9 [facility] Comment on above: Performed By: #### 2 106-3 #### [facility] ([id number]) [address] [place] [address] 56400 Monocytes/100 WBC (Bld) 4.8 % Normal [facility] Comment on above: Performed By: #### 2 106-3 #### [facility] ([id number]) [address] [place] [address] 43715 Neutrophils/100 WBC (Bld) 64.7 % Normal [facility] Comment on above: Performed By: #### 2 106-3 #### [facility] ([id number]) [address] [place] [address] 32823 Platelet mean volume (Bld) [Entitic vol] 6.6 fL Low 7-12 [facility] Comment on above: Performed By: #### 2 106-3 #### [facility] ([id number]) [address] [place] [address] 04286 Platelets (Bld) [#/Vol] 377 10*3/uL Normal 150-450 [facility] Comment on above: Performed By: #### 2 106-3 #### [facility] ([id number]) [address] [place] [address] 70349 RBC COUNT 4.21 X10E12/L Normal 3.80-5.20 [facility] Comment on above: Performed By: #### 2 106-3 #### [facility] ([id number]) [address] [place] [address] 16567 WBC (Bld) [#/Vol] 11.6 10*3/uL High 4.0-11.0 [facility] Comment on above: Performed By: #### 2 106-3 #### [facility] ([id number]) [address] [place] [address] [place] [address] COMPREHENSIVE METABOLIC PANE Kit 02-13-2024 Albumin [Mass/Vol] 4.1 g/dL Normal 3.2-5.3 [facility] Comment on above: Performed By: #### 2 106-3 #### [facility] ([id number]) [address] [place] [address] 60123 ALP [Catalytic activity/Vol] 158 U/L High 39-130 [facility] Comment on above: Performed By: #### 2 106-3 #### [facility] ([id number]) [address] [place] [address] 82094 ALT [Catalytic activity/Vol] 46 U/L High 0-31 [facility] Comment on above: Performed By: #### 2 106-3 #### [facility] ([id number]) [address] [place] [address] 25790 Anion gap [Moles/Vol] 7 mmol/L Normal 5-15 [facility] Comment on above: Performed By: #### 2 106-3 #### [facility] ([id number]) [address] [place] [address] 63704 AST [Catalytic activity/Vol] 28 U/L Normal 0-41 [facility] Comment on above: Performed By: #### 2 106-3 #### [facility] ([id number]) [address] [place] [address] 22565 Bilirubin [Mass/Vol] 0.5 mg/dL Normal 0.3-1.2 [facility] Comment on above: Performed By: #### 2 106-3 #### [facility] ([id number]) [address] [place] [address] 55358 Calcium [Mass/Vol] 9.0 mg/dL Normal 8.5-10.5 [facility] Comment on above: Performed By: #### 2 106-3 #### [facility] ([id number]) [address] [place] [address] 54367 Chloride [Moles/Vol] 106 mmol/L Normal 98-109 [facility] Comment on above: Performed By: #### 2 106-3 #### [facility] ([id number]) [address] [place] [address] 18868 CO2 [Moles/Vol] 24 mmol/L Normal 22-32 [facility] Comment on above: Performed By: #### 2 106-3 #### [facility] ([id number]) [address] [place] [address] 61239 Creatinine [Mass/Vol] 0.63 mg/dL Normal 0.40-1.00 [facility] Comment on above: Result Comment: METH OD TRACEABLE TO IDMS STANDARD Performed By: #### 2 106-3 #### [facility] ([id number]) [address] [place] [address] 44939 eGFR (CKD-EPI) NON-RACE DEPENDENT >90 Normal >59 [facility] Comment on above: Result Comment: Reported eGFR is based on the CKD-EPI 2021 equation that does not use a race coefficient. Performed By: #### 2 106-3 #### [facility] ([id number]) [address] [place] [address] 89268 Glucose [Mass/Vol] 98 mg/dL Normal 65-99 [facility] Comment on above: Performed By: #### 2 106-3 #### [facility] ([id number]) [address] [place] [address] 99651 Potassium [Moles/Vol] 3.1 mmol/L Low 3.5-5.0 [facility] Comment on above: Performed By: #### 2 106-3 #### [facility] ([id number]) [address] [place] [address] 77218 Protein [Mass/Vol] 8.0 g/dL Normal 6.0-8.0 [facility] Comment on above: Performed By: #### 2 106-3 #### [facility] ([id number]) [address] [place] [address] 94194 Sodium [Moles/Vol] 137 mmol/L Normal 134-146 [facility] Comment on above: Performed By: #### 2 106-3 #### [facility] ([id number]) [address] [place] [address] 01093 Urea nitrogen [Mass/Vol] 7 mg/dL Normal 5-23 [facility] Comment on above: Performed By: #### 2 106-3 #### [facility] ([id number]) [address] [place] [address] 04113 HCG ( test) Ql (U)o n 02-13-2024 Beta HCG ( test) Ql (U) Negative Normal NEG [facility] Comment on above: Performed By: #### 2 106-3 #### [facility] ([id number]) [address] [place] [address] 65573 MAGNESIUMon 02-13-2024 Magnesium [Mass/Vol] 1.9 mg/dL Normal 1.8-2.6 [facility] Comment on above: Performed By: #### 2 106-3 #### [facility] ([id number]) [address] [place] [address] 23612 Troponin I.cardiac High sens itivity method [Mass/Vol]on 02-13-2024 TROPONIN I, HIGH SENSITIVITY 3 ng/L Normal <16 [facility] Comment on above: Performed By: #### 2 106-3 #### [facility] ([id number]) [address] [place] [address] 40001 URN MACROSCOPIC NURon 2023 BILIRUBIN BETHANY Negative Normal NEG [facility] Comment on above: Performed By: #### 2 106-3 #### [facility] ([id number]) [address] [place] [address] [place] [address] BLOOD/HGB BETHANY Negative Normal NEG [facility] Comment on above: Performed By: #### 2 106-3 #### [facility] ([id number]) [address] [place] [address] [place] [address] GLUCOSE BETHANY Negative Normal NEG [facility] Comment on above: Performed By: #### 2 106-3 #### [facility] ([id number]) [address] [place] [address] [place] [address] KETONES BETHANY Negative Normal NEG [facility] Comment on above: Performed By: #### 2 106-3 #### [facility] ([id number]) [address] [place] [address] [place] [address] LEUKOCYTE ESTERASE BETHANY Negative Normal NEG [facility] Comment on above: Performed By: #### 2 106-3 #### [facility] ([id number]) [address] [place] [address] [place] [address] NITRITE BETHANY Negative Normal NEG [facility] Comment on above: Performed By: #### 2 106-3 #### [facility] ([id number]) [address] [place] [address] [place] [address] PH BETHANY 6.5 Normal 5.0-8.5 [facility] Comment on above: Performed By: #### 2 106-3 #### [facility] ([id number]) [address] [place] [address] [place] [address] PROTEIN BETHANY Negative Normal NEG [facility] Comment on above: Performed By: #### 2 106-3 #### [facility] ([id number]) [address] [place] [address] [place] [address] SPECIFIC GRAVITY BETHANY 1.015 Normal 1.003-[address] [place] [address] Comment on above: Performed By: #### 2 106-3 #### [facility] ([id number]) [address] [place] [address] 14880 UROBILINOGEN BETHANY 0.2 eu/dL Normal <1.1 [facility] Comment on above: Performed By: #### 2 106-3 #### [facility] ([id number]) [address] [place] [address] 78635 XR CHEST 2 VWSon 02-13-2024 XR CHEST 2 VWS XR CHEST 2 VWS Chest 2 views History: Difficulty breathing SOB Comparison: 11/25/2023 Findings: Chest 2 views. Stable cardiomediastinal silhouette. No focal opacity, effusion or pneumothorax. Impression: No evident acute cardiopulmonary process. Finalized by Jennifer Howe MD on 02/13/2024 11:22 PM Normal [facility] BASIC METABOLIC PANLon 12-28 Anion gap [Moles/Vol] 4 mmol/L Low 5-15 [facility] Comment on above: Performed By: #### 2 106-3 #### [facility] ([id number]) [address] [place] [address] 71939 Calcium [Mass/Vol] 8.4 mg/dL Low 8.5-10.5 [facility] Comment on above: Performed By: #### 2 106-3 #### [facility] ([id number]) [address] [place] [address] 41167 Chloride [Moles/Vol] 106 mmol/L Normal 98-109 [facility] Comment on above: Performed By: #### 2 106-3 #### [facility] ([id number]) [address] [place] [address] 17569 CO2 [Moles/Vol] 24 mmol/L Normal 22-32 [facility] Comment on above: Performed By: #### 2 106-3 #### [facility] ([id number]) [address] [place] [address] 41238 Creatinine [Mass/Vol] 0.65 mg/dL Normal 0.40-1.00 [facility] Comment on above: Result Comment: METH OD TRACEABLE TO IDMS STANDARD Performed By: #### 2 106-3 #### [facility] ([id number]) [address] [place] [address] 06282 eGFR (CKD-EPI) NON-RACE DEPENDENT >90 Normal >59 [facility] Comment on above: Result Comment: Reported eGFR is based on the CKD-EPI 2020 equation that does not use a race coefficient. Performed By: #### 2 106-3 #### [facility] ([id number]) [address] [place] [address] 63683 Glucose [Mass/Vol] 101 mg/dL High 65-99 [facility] Comment on above: Performed By: #### 2 106-3 #### [facility] ([id number]) [address] [place] [address] 02617 Potassium [Moles/Vol] 3.8 mmol/L Normal 3.5-5.0 [facility] Comment on above: Performed By: #### 2 106-3 #### [facility] ([id number]) [address] [place] [address] 32697 Sodium [Moles/Vol] 134 mmol/L Normal 134-146 [facility] Comment on above: Performed By: #### 2 106-3 #### [facility] ([id number]) [address] [place] [address] 02431 Urea nitrogen [Mass/Vol] 12 mg/dL Normal 5-23 [facility] Comment on above: Performed By: #### 2 106-3 #### [facility] ([id number]) [address] [place] [address] 69855 CBC AND AUTO DIFFon 12-29-19 24 ABSOLUTE BASOPHIL 0.1 X10E9/L Normal 0.0-0.2 [facility] Comment on above: Performed By: #### 2 106-3 #### [facility] ([id number]) [address] [place] [address] 54397 ABSOLUTE NEUTROPHIL 6.1 X10E9/L Normal 1.5-6.6 [facility] Comment on above: Performed By: #### 2 106-3 #### [facility] ([id number]) [address] [place] [address] 82129 Basophils/100 WBC (Bld) 0.7 % Normal [facility] Comment on above: Performed By: #### 2 106-3 #### [facility] ([id number]) [address] [place] [address] 38611 Eosinophils (Bld) [#/Vol] 0.2 10*3/uL Normal 0.0-0.4 [facility] Comment on above: Performed By: #### 2 106-3 #### [facility] ([id number]) [address] [place] [address] 12790 Eosinophils/100 WBC (Bld) 1.9 % Normal [facility] Comment on above: Performed By: #### 2 106-3 #### [facility] ([id number]) [address] [place] [address] 49439 Erythrocyte distribution width (RBC) [Ratio] 13.6 % Normal 11.5-15.0 [facility] Comment on above: Performed By: #### 2 106-3 #### [facility] ([id number]) [address] [place] [address] 45109 Hematocrit (Bld) [Volume fraction] 33.7 % Low 35-47 [facility] Comment on above: Performed By: #### 2 106-3 #### [facility] ([id number]) [address] [place] [address] 26507 Hemoglobin (Bld) [Mass/Vol] 11.7 g/dL Normal 11.7-15.5 [facility] Comment on above: Performed By: #### 2 106-3 #### [facility] ([id number]) [address] [place] [address] 69038 Lymphocytes (Bld) [#/Vol] 3.0 10*3/uL Normal 1.0-3.5 [facility] Comment on above: Performed By: #### 2 106-3 #### [facility] ([id number]) [address] [place] [address] 61607 Lymphocytes/100 WBC (Bld) 29.8 % Normal [facility] Comment on above: Performed By: #### 2 106-3 #### [facility] ([id number]) [address] [place] [address] 69128 MCH (RBC) [Entitic mass] 29.2 pg Normal 27-34 [facility] Comment on above: Performed By: #### 2 106-3 #### [facility] ([id number]) [address] [place] [address] 07948 MCHC (RBC) [Mass/Vol] 34.6 g/dL Normal 32-36 [facility] Comment on above: Performed By: #### 2 106-3 #### [facility] ([id number]) [address] [place] [address] 35684 MCV (RBC) [Entitic vol] 84 fL Normal 80-100 [facility] Comment on above: Performed By: #### 2 106-3 #### [facility] ([id number]) [address] [place] [address] 32407 Monocytes (Bld) [#/Vol] 0.6 10*3/uL Normal 0-0.9 [facility] Comment on above: Performed By: #### 2 106-3 #### [facility] ([id number]) [address] [place] [address] 94339 Monocytes/100 WBC (Bld) 6.5 % Normal [facility] Comment on above: Performed By: #### 2 106-3 #### [facility] ([id number]) [address] [place] [address] 27838 Neutrophils/100 WBC (Bld) 61.1 % Normal [facility] Comment on above: Performed By: #### 2 106-3 #### [facility] ([id number]) [address] [place] [address] 83745 Platelet mean volume (Bld) [Entitic vol] 6.8 fL Low 7-12 [facility] Comment on above: Performed By: #### 2 106-3 #### [facility] ([id number]) [address] [place] [address] 92246 Platelets (Bld) [#/Vol] 307 10*3/uL Normal 150-450 [facility] Comment on above: Performed By: #### 2 106-3 #### [facility] ([id number]) [address] [place] [address] 38022 RBC COUNT 4.00 X10E12/L Normal 3.80-5.20 [facility] Comment on above: Performed By: #### 2 106-3 #### [facility] ([id number]) [address] [place] [address] 70415 WBC (Bld) [#/Vol] 10.0 10*3/uL Normal 4.0-11.0 [facility] Comment on above: Performed By: #### 2 106-3 #### [facility] ([id number]) [address] [place] [address] 69507 MAGNESIUMon 12-29-2023 Magnesium [Mass/Vol] 2.0 mg/dL Normal 1.8-2.6 [facility] Comment on above: Performed By: #### 2 106-3 #### [facility] ([id number]) [address] [place] [address] 27787 HCG ( test) Ql (U)o n 12-11-2023 Beta HCG ( test) Ql (U) Negative Normal NEG [facility] Comment on above: Performed By: #### 2 106-3 #### [facility] ([id number]) [address] [place] [id number] URN MACROSCOPIC NURon 2023 BILIRUBIN BETHANY Negative Normal NEG [facility] Comment on above: Performed By: #### N UM #### [facility] ([id number]) [address] [place] [id number] BLOOD/HGB BETHANY Negative Normal NEG [facility] Comment on above: Performed By: #### N UM #### [facility] ([id number]) [address] [place] [address] [place] [id number] GLUCOSE BETHANY Negative Normal NEG [facility] Comment on above: Performed By: #### N UM #### [facility] ([id number]) [address] [place] [address] [place] [id number] KETONES BETHANY Negative Normal NEG [facility] Comment on above: Performed By: #### N UM #### [facility] ([id number]) [address] [place] [address] [place] [address] LEUKOCYTE ESTERASE BETHANY Negative Normal NEG [facility] Comment on above: Performed By: #### N UM #### [facility] ([id number]) [address] [place] [address] [place] [address] NITRITE BETHANY Negative Normal NEG [facility] [facility] Comment on above: Performed By: #### N UM #### [facility] ([id number]) [address] [place] [address] 45097 PH BETHANY 6.0 Normal 5.0-8.5 [facility] Comment on above: Performed By: #### N UM #### [facility] ([id number]) [address] [place] [address] 50986 PROTEIN BETHANY Negative Normal NEG [facility] Comment on above: Performed By: #### N UM #### [facility] ([id number]) [address] [place] [address] 34126 SPECIFIC GRAVITY BETHANY 1.015 Normal 1.003-1 .03 5 [facility] Comment on above: Performed By: #### N UM #### [facility] ([id number]) [address] [place] [address] [id number] UROBILINOGEN BETHANY 0.2 eu/dL Normal <1.1 [facility] Comment on above: Performed By: #### N UM #### [facility] ([id number]) [address] [place] [address] [place] [address] BASIC METABOLIC PANLon 11-24 Anion gap [Moles/Vol] 13 mmol/L Normal 5-15 [facility] Comment on above: Performed By: #### B MP #### [facility] ([id number]) [address] [place] [address] 16177 Calcium [Mass/Vol] 9.0 mg/dL Normal 8.5-10.5 [facility] Comment on above: Performed By: #### B MP #### [facility] ([id number]) [address] [place] [address] 70907 Chloride [Moles/Vol] 103 mmol/L Normal 98-109 [facility] Comment on above: Performed By: #### B MP #### [facility] ([id number]) [address] [place] [address] 66436 CO2 [Moles/Vol] 20 mmol/L Low 22-32 [facility] Comment on above: Performed By: #### B MP #### [facility] ([id number]) [address] [place] [address] 88572 Creatinine [Mass/Vol] 0.69 mg/dL Normal 0.40-1.00 [facility] Comment on above: Result Comment: METH OD TRACEABLE TO IDMS STANDARD Performed By: #### B MP #### [facility] ([id number]) [address] [place] [address] 45712 eGFR (CKD-EPI) NON-RACE DEPENDENT >90 Normal >59 [facility] Comment on above: Result Comment: Reported eGFR is based on the CKD-EPI 2020 equation that does not use a race coefficient. Performed By: #### B MP #### [facility] ([id number]) [address] [place] [address] 98553 Glucose [Mass/Vol] 95 mg/dL Normal 65-99 [facility] Comment on above: Performed By: #### B MP #### [facility] ([id number]) [address] [place] [address] 94483 Potassium [Moles/Vol] 2.9 mmol/L Low 3.5-5.0 [facility] Comment on above: Performed By: #### B MP #### [facility] ([id number]) [address] [place] [address] 00487 Sodium [Moles/Vol] 136 mmol/L Normal 134-146 [facility] Comment on above: Performed By: #### B MP #### [facility] ([id number]) [address] [place] [address] 19990 Urea nitrogen [Mass/Vol] 7 mg/dL Normal 5-23 [facility] Comment on above: Performed By: #### B MP #### [facility] ([id number]) [address] [facility] [place] [address] SARS/FLU A+B/RSV by NAAT/Mol tomon 11-25-2023 SARS/FLU A+B/RSV by NAAT/Molecular FLU A [...] operators who are performing tests using either [employer] or [employer] systems and is limited to laboratories that [...] repeat. Fact Sheet for Healthcare Providers: https://www.fda.gov/media /321981/download Fact Sheet for Patients: https://www.fda.gov/media /879338/download Normal [facility] Comment on above: Performed By: #### C OVFLR #### [facility] ([id number]) [address] [facility] [place] [address] XR FOOT LT MIN 3 VWSon 09-21 [...] Loya MD on 09/22/2023 12:07 AM Normal [facility] XR SPINE LUMBAR 2 OR [...] Loya MD on 09/22/2023 12:10 AM Normal [facility] XR TIBIA FIBULA LT MIN [...] Loya MD on 09/22/2023 12:09 AM Normal [facility] HCG ( test) Ql (U)o n 09-21-2023 Beta HCG ( test) Ql (U) Negative Normal NEG [facility] Comment on above: Performed By: #### 2 106-3 #### [facility] ([id number]) [address] [facility] [place] [address] SARS/FLU A+B/RSV by NAAT/Mol ecularon 07-09-2023 SARS/FLU [...] operators who are performing tests using either [employer] or [employer] systems and is limited to laboratories that [...] repeat. Fact Sheet for Healthcare Providers: https://www.fda.gov/media /788909/download Fact Sheet for Patients: https://www.fda.gov/media /411486/download Normal [facility] Comment on above: Performed By: #### C OVFLR #### [facility] ([id number]) [address] [place] [address], [place] [address] Provider Letteron 02-25-2023 Provider Letter (Inserted Image. Swapna ble to display) February 25, 2023 [address]IFER CARMEN [address] [place] [id number] : 1995 Dear Jennifer , We have been trying to reach you with no success. It is important that you return our call regarding your referral to our office by Jennifer upon receiving this letter. Also, at the time of your call, please provide us with your current information. Thank you for your prompt attention to this matter. Sincerely, [facility] [phone] Normal [facility] Physician Referralon 023 Physician Referral [phone] [id number] Normal [facility] Urinalysis - AUTOMATEDon Appearance (U) cloudy [employer] Other Bilirubin Ql (U) Negative [employer] Other Color (U) yellow [employer] Other Glucose Ql (U) Negative [employer] Other Hemoglobin Ql (U) Trace-intact [employer] Other Ketones Ql (U) Negative [employer] Other Leukocyte esterase Test strip Ql (U) Trace [employer] Other Nitrite Ql (U) Negative [employer] Other pH (U) 6.0 [pH] [employer] Other Protein Ql (U) Negative [employer] Other Specific gravity (U) [Rel density] <=1.005 [employer] Other Urobilinogen (U) [Mass/Vol] 0.2 mg/dL [employer] Other Urinalysis - AUTOMATED No rt [employer] Other Quick Strepon 04-26-2022 S. pyogenes Org specific cx Ql (Throat) Negative [employer] Other Quick Strep [employer] Other SARS-CoV-2 (COVID-19) RNA NA A+probe Ql (Resp)on 04-23-2022 SARS-CoV-2 (COVID-19) RNA EMMANUELLE+probe Ql (Unsp spec) Negative [employer] Other Covid-19 PCR (CVDTB)on 03-16 SARS-CoV-2 (COVID-19) RNA EMMANUELLE+probe Ql (Unsp spec) Not detected Normal NOT DETECTED [facility] Comment on above: Result Comment: This test is not yet approved or cleared by the [place] FDA. When there are no FDA-approved or cleared tests available, and other criteria are met, FDA can make tests available under an emergency access mechanism called an Emergency Use Authorization (EUA). The EUA for this test is supported by the [employer] of Health and Human Service's (HHS's) declaration [...] SARS-CoV-2. Performed By: #### C BC #### [facility] [address] [place] [address] Dr. Katrin Ceja SARS-CoV-2 (COVID-19) RNA NA A+probe Ql (Resp)on 03-27-2022 SARS-CoV-2 (COVID-19) RNA EMMANUELLE+probe Ql (Unsp spec) Negative [employer] Other CBC AUTO DIFFon 03-22-2022 BASO # 0.0 103/ul Normal 0.0-0.1 [facility] Comment on above: Performed By: #### L IPID, CMP #### [facility] [address] [place] [address] Dr. Katrin Ceja Basophils/100 WBC (Bld) 0.3 % Normal 0.2-2.0 [facility] Comment on above: Performed By: #### L IPID, CMP #### [facility] [address] [place] [address] Dr. Katrin Ceja EO # 0.2 103/ul Normal 0.0-0.7 [facility] Comment on above: Performed By: #### L IPID, CMP #### [facility] [address] [place] [address] Dr. Katrin Ceja Eosinophils/100 WBC (Bld) 2.2 % Normal 0.9-7.0 [facility] Comment on above: Performed By: #### L IPID, CMP #### [facility] [address] [place] [address] Dr. Katrin Ceja Erythrocyte distribution width (RBC) [Ratio] 11.9 % Normal 11.0-15.0 [facility] Comment on above: Performed By: #### L IPID, CMP #### [facility] [address] [place] [address] Dr. Katrin Ceja Hematocrit (Bld) [Volume fraction] 36.4 % Normal 36.0-48.0 [facility] Comment on above: Performed By: #### L IPID, CMP #### [facility] [address] [address] [address] Katrin Ceja Hemoglobin (Bld) [Mass/Vol] 12.6 g/dL Normal 12.0-16.0 [facility] Comment on above: Performed By: #### L IPID, CMP #### [facility] [address] [address] [address] Katrin Ceja IG # 0.03 10e3/ul Normal 0.00-0.03 [facility] Comment on above: Performed By: #### L IPID, CMP #### [facility] [address] [place] [address] Dr. Katrin Ceja IG % 0.3 % Normal 0.0-0.5 [facility] Comment on above: Performed By: #### L IPID, CMP #### [facility] [address] [place] [address] Dr. Katrin Ceja LYMPH # 3.5 103/ul Normal 1.2-3.8 [facility] Comment on above: Performed By: #### L IPID, CMP #### [facility] [address] [place] [address] Dr. Katrin Ceja Lymphocytes/100 WBC (Bld) 33.1 % Normal 20.5-60.0 [facility] Comment on above: Performed By: #### L IPID, CMP #### [facility] [address] [place] [address] Dr. Katrin Ceja MANUAL DIFF REQ NO Normal [facility] Comment on above: Performed By: #### L IPID, CMP #### [facility] [address] [place] [address] Dr. Katrin Ceja MCH (RBC) [Entitic mass] 29.9 pg Normal 26.7-34.0 [facility] Comment on above: Performed By: #### L IPID, CMP #### [facility] [address] [place] [address] Dr. Katrin Ceja MCHC (RBC) [Mass/Vol] 34.6 g/dL Normal 29.9-35.2 [facility] Comment on above: Performed By: #### L IPID, CMP #### [facility] [address] [place] [address] Dr. Katrin Ceja MCV (RBC) [Entitic vol] 86.5 fL Normal 81.0-99.0 [facility] Comment on above: Performed By: #### L IPID, CMP #### [facility] [address] [place] [address] Dr. Katrin Ceja MONO # 0.7 103/ul Normal 0.3-0.8 [facility] Comment on above: Performed By: #### L IPID, CMP #### [facility] [address] [place] [address] Dr. Katrin Ceja Monocytes/100 WBC (Bld) 6.5 % Normal 1.7-12.0 [facility] Comment on above: Performed By: #### L IPID, CMP #### [facility] [address] [place] [address] Dr. Katrin Ceja NEUT # 6.0 103/ul Normal 1.4-6.5 [facility] Comment on above: Performed By: #### L IPID, CMP #### [facility] [address] [place] [address] Dr. Katrin Ceja Neutrophils/100 WBC (Bld) 57.6 % Normal 43.0-75.0 [facility] Comment on above: Performed By: #### L IPID, CMP #### [facility] [address] [place] [address] Dr. Katrin Ceja Platelet mean volume (Bld) [Entitic vol] 8.7 fL Critically low 9.5-13.5 [facility] Comment on above: Performed By: #### L IPID, CMP #### [facility] [address] [place] [address] Dr. Katrin Ceja PLT 282 103/ul Normal 150-450 [facility] Comment on above: Performed By: #### L IPID, CMP #### [facility] [address] [place] [address] Dr. Katrin Ceja RBC 4.21 106/ul Normal 4.20-5.40 [facility] Comment on above: Performed By: #### L IPID, CMP #### [facility] [address] [place] [address] Dr. Katrin Ceja WBC 10.5 103/ul Normal 4.0-11.0 [facility] Comment on above: Performed By: #### L IPID, CMP #### [facility] [address] [address] [address] Katrin Ceja ER URINE PROFILEon 2 Bilirubin Ql (U) Negative Normal NEGATIVE [facility] Comment on above: Performed By: #### L IPID, CMP #### [facility] [address] [place] [address] Dr. Katrin Ceja Clarity (U) CLEAR Normal CLEAR [facility] Comment on above: Performed By: #### L IPID, CMP #### [facility] [address] [place] [address] Dr. Katrin Ceja Color (U) LT. YELLOW Normal YELLOW [facility] Comment on above: Performed By: #### L IPID, CMP #### [facility] [address] [place] [address] Dr. Katrin Ceja ERUGUSTAVOD A micrscopic examina tion will be performed if indicated. Normal [facility] Comment on above: Performed By: #### L IPID, CMP #### [facility] [address] [place] [address] Dr. Katrin Ceja Glucose Ql (U) Negative Normal NEGATIVE [facility] Comment on above: Performed By: #### L IPID, CMP #### [facility] [address] [place] [address] Dr. Katrin Ceja Hemoglobin Ql (U) Negative Normal NEGATIVE [facility] Comment on above: Performed By: #### L IPID, CMP #### [facility] [address] [place] [address] Dr. Katrin Ceja Ketones Ql (U) Negative Normal NEGATIVE [facility] Comment on above: Performed By: #### L IPID, CMP #### [facility] [address] [place] [address] Dr. Katrin Ceja LEUKOCYTES Negative Normal NEGATIVE [facility] Comment on above: Performed By: #### L IPID, CMP #### [facility] [address] [place] [address] Dr. Katrin Ceja Nitrite Ql (U) Negative Normal NEGATIVE [facility] Comment on above: Performed By: #### L IPID, CMP #### [facility] [address] [place] [address] Dr. Katrin Ceja pH (U) 6.0 [pH] Normal 5-9 [facility] Comment on above: Performed By: #### L IPID, CMP #### [facility] [address] [place] [address] Dr. Katrin Ceja SPEC GRAVITY 1.015 Normal 1.005-<=1. 025 [facility] Comment on above: Performed By: #### L IPID, CMP #### [facility] [address] [place] [address] Dr. Katrin Ceja UA PROTEIN Negative Normal NEGATIVE/ TRACE [facility] Comment on above: Performed By: #### L IPID, CMP #### [facility] [address] [place] [address] Dr. Katrin Ceja UR MICRO IND NOT INDICATED Normal [facility] Comment on above: Performed By: #### L IPID, CMP #### [facility] [address] [place] [address] Dr. Katrin Ceja Urobilinogen Qn (U) 0.2 {Jeannie'U}/dL Normal 0.2 - 1. 0 [facility] Comment on above: Performed By: #### L IPID, CMP #### [facility] [address] [place] [address] Dr. Katrin Ceja LIPASEon 03-22-2022 Lipase [Catalytic activity/Vol] 84.0 U/L Normal 73.0-393.0 [facility] Comment on above: Performed By: #### H STROPN, CMP, LIPA #### [facility] [address] [place] [address] Dr. Katrin Ceja URon 03-22-2022 , QUAL Negative Normal NEGATIVE [facility] Comment on above: Performed By: #### L IPID, CMP #### [facility] [address] [address] [address] Katrin Ceja PROF 14(COMP METB)on 022 Albumin [Mass/Vol] 3.2 g/dL Critically low 3.4-5.0 [facility] Comment on above: Performed By: #### H STROPN, CMP, LIPA #### [facility] [address] [address] [address] Katrin Ceja Albumin/Globulin [Mass ratio] 0.8 {ratio} Normal [facility] Comment on above: Performed By: #### H STROPN, CMP, LIPA #### [facility] [address] [place] [address] Dr. Katrin Ceja ALP [Catalytic activity/Vol] 189 U/L Critically high 46-116 [facility] Comment on above: Performed By: #### H STROPN, CMP, LIPA #### [facility] [address] [address] [address] Katrin Ceja ALT [Catalytic activity/Vol] 31 U/L Normal 14-59 [facility] Comment on above: Performed By: #### H STROPN, CMP, LIPA #### [facility] [address] [address] [address] Katrin Ceja Anion gap [Moles/Vol] 9.9 mmol/L Normal [facility] Comment on above: Performed By: #### H STROPN, CMP, LIPA #### [facility] [address] [address] [address] Katrin Ceja AST [Catalytic activity/Vol] 17 U/L Normal 15-37 [facility] Comment on above: Performed By: #### H STROPN, CMP, LIPA #### [facility] [address] [address] [address] Katrin Ceja Bilirubin [Mass/Vol] 0.2 mg/dL Normal 0.2-1.0 [facility] Comment on above: Performed By: #### H STROPN, CMP, LIPA #### [facility] [address] [address] [address] Katrin Ceja Calcium [Mass/Vol] 8.7 mg/dL Normal 8.5-10.1 [facility] Comment on above: Performed By: #### H STROPN, CMP, LIPA #### [facility] [address] [address] [address] Katrin Ceja Chloride [Moles/Vol] 103 mmol/L Normal 98-107 [facility] Comment on above: Performed By: #### H STROPN, CMP, LIPA #### [facility] [address] [address] [address] Katrin Ceja CO2 [Moles/Vol] 25.4 mmol/L Normal 21.0-32.0 [facility] Comment on above: Performed By: #### H STROPN, CMP, LIPA #### [facility] [address] [place] [address] Dr. Katrin Ceja Creatinine [Mass/Vol] 0.71 mg/dL Normal 0.55-1.02 [facility] Comment on above: Performed By: #### H STROPN, CMP, LIPA #### [facility] [address] [place] [address] Dr. Katrin Ceja EGFR-AF MARTINIQUAIS >60 Normal >=60 [facility] Comment on above: Performed By: #### H STROPN, CMP, LIPA #### [facility] [address] [place] [address] Dr. Katrin Ceja EGFR-NON AF MARTINIQUAIS >60 Normal >=60 [facility] Comment on above: Performed By: #### H STROPN, CMP, LIPA #### [facility] [address] [place] [address] Dr. Katrin Ceja Globulin (S) [Mass/Vol] 4.0 g/dL Normal [facility] Comment on above: Performed By: #### H STROPN, CMP, LIPA #### [facility] [address] [place] [address] Dr. Katrin Ceja Glucose [Mass/Vol] 106 mg/dL Normal 74-106 [facility] Comment on above: Performed By: #### H STROPN, CMP, LIPA #### [facility] [address] [address] [address] Katrin Ceja Potassium [Moles/Vol] 3.3 mmol/L Critically low 3.5-5.1 [facility] Comment on above: Performed By: #### H STROPN, CMP, LIPA #### [facility] [address] [address] [address] Katrin Ceja Protein [Mass/Vol] 7.2 g/dL Normal 6.4-8.2 [facility] Comment on above: Performed By: #### H STROPN, CMP, LIPA #### [facility] [address] [place] [address] Dr. Katrin Ceja Sodium [Moles/Vol] 135 mmol/L Critically low 136-145 [facility] Comment on above: Performed By: #### H STROPN, CMP, LIPA #### [facility] [address] [address] [address] Katrin Ceja Urea nitrogen [Mass/Vol] 5.0 mg/dL Critically low 7.0-18.0 [facility] Comment on above: Performed By: #### H STROPN, CMP, LIPA #### [facility] [address] [place] [address] Dr. Katrin Ceja Urea nitrogen/Creatinine [Mass ratio] 7.0 mg/mg Normal [facility] Comment on above: Performed By: #### H STROPN, CMP, LIPA #### [facility] [address] [address] [address] Katrin Ceja TROPONIN, HIGH SENSITIVITYon 03-22-2022 HSTROP <4.0 Normal 4.0-51.3 [facility] Comment on above: Result Comment: CUT- OFF POINTS HAVE BEEN ESTABLISHED BASED ON THE FOURTH UNIVERSAL DEFINITIONS OF MYOCARDIAL INFARCTION. THE UPPER REFERENCE LIMIT (URL) OF TROPONIN, DEFINED THE 99TH PERCENTILE OF cTnI DISTRIBUTION IN A REFERENCE POPULATION, HAS BEEN CONFIRMED THE DECISION THRESHOLD FOR MS DIAGNOSIS. Performed By: #### H KASIEPN, CMP, LIPA #### [facility] [address] [address] [address] Katrin Ceja XR ABD FLAT UP_PA [...] GERI LASSITER Date: 2022-03-22 01:53 Normal [facility] XR ANKLE LT MIN 3 Von 2021 XR ANKLE LT MIN 3 V EXAM: XR ANKLE LT MS N 3 V HISTORY: Ankle pain COMPARISON: None. TECHNIQUE: 3 views FINDINGS: No osseous lesion, fracture, dislocation or subluxation. Joint spaces are normal. Old posttraumatic ossifications adjacent to the tip of the lateral malleolus. No visualized effusion. No visualized soft tissue edema. IMPRESSION: Normal x-rays Electronically authenticated by: DANNI QUINONES Date: 2022-03-09 19:32 Normal [facility] CBC AUTO DIFFon 02-08-2022 BASO # 0.0 103/ul Normal 0.0-0.1 [facility] Comment on above: Performed By: #### C BC #### [facility] [address] [address] [address] Katirn Ceja Basophils/100 WBC (Bld) 0.3 % Normal 0.2-2.0 [facility] Comment on above: Performed By: #### C BC #### [facility] [address] [address] [address] Katrin Ceja EO # 0.3 103/ul Normal 0.0-0.7 [facility] Comment on above: Performed By: #### C BC #### [facility] [address] [place] [address] Dr. Katrin Ceja Eosinophils/100 WBC (Bld) 3.0 % Normal 0.9-7.0 [facility] Comment on above: Performed By: #### C BC #### [facility] [address] [place] [address] Dr. Katrin Ceja Erythrocyte distribution width (RBC) [Ratio] 12.2 % Normal 11.0-15.0 [facility] Comment on above: Performed By: #### C BC #### [facility] [address] [place] [address] Dr. Katrin Ceja Hematocrit (Bld) [Volume fraction] 33.8 % Critically low 36.0-48.0 [facility] Comment on above: Performed By: #### C BC #### [facility] [address] [place] [address] Dr. Katrin Ceja Hemoglobin (Bld) [Mass/Vol] 11.9 g/dL Critically low 12.0-16.0 [facility] Comment on above: Performed By: #### C BC #### [facility] [address] [place] [address] Dr. Katrin Ceja IG # 0.04 10e3/ul Critically high 0.00-0.03 [facility] Comment on above: Performed By: #### C BC #### [facility] [address] [place] [address] Dr. Katrin Ceja IG % 0.4 % Normal 0.0-0.5 [facility] Comment on above: Performed By: #### C BC #### [facility] [address] [place] [address] Dr. Katrin Ceja LYMPH # 3.0 103/ul Normal 1.2-3.8 [facility] Comment on above: Performed By: #### C BC #### [facility] [address] [place] [address] Dr. Katrin Ceja Lymphocytes/100 WBC (Bld) 28.4 % Normal 20.5-60.0 [facility] Comment on above: Performed By: #### C BC #### [facility] [address] [place] [address] Dr. Ktarin Ceja MANUAL DIFF REQ NO Normal [facility] Comment on above: Performed By: #### C BC #### [facility] [address] [place] [address] Dr. Katrin Ceja MCH (RBC) [Entitic mass] 29.8 pg Normal 26.7-34.0 [facility] Comment on above: Performed By: #### C BC #### [facility] [address] [place] [address] Dr. Katrin Ceja MCHC (RBC) [Mass/Vol] 35.2 g/dL Normal 29.9-35.2 [facility] Comment on above: Performed By: #### C BC #### [facility] [address] [place] [address] Dr. Katrin Ceja MCV (RBC) [Entitic vol] 84.7 fL Normal 81.0-99.0 [facility] Comment on above: Performed By: #### C BC #### [facility] [address] [place] [address] Dr. Katrin Ceja MONO # 0.7 103/ul Normal 0.3-0.8 [facility] Comment on above: Performed By: #### C BC #### [facility] [facility] [address] [place] [address] Dr. Katrin Ceja Monocytes/100 WBC (Bld) 6.6 % Normal 1.7-12.0 [facility] Comment on above: Performed By: #### C BC #### [facility] [address] [place] [address] Dr. Katrin Ceja NEUT # 6.4 103/ul Normal 1.4-6.5 [facility] Comment on above: Performed By: #### C BC #### [facility] [address] [place] [address] Dr. Katrin Ceja Neutrophils/100 WBC (Bld) 61.3 % Normal 43.0-75.0 [facility] Comment on above: Performed By: #### C BC #### [facility] [address] [address] [address] Katrin Ceja Platelet mean volume (Bld) [Entitic vol] 8.9 fL Critically low 9.5-13.5 [facility] Comment on above: Performed By: #### C BC #### [facility] [address] [place] [address] Dr. Katrin Ceja PLT 299 103/ul Normal 150-450 [facility] Comment on above: Performed By: #### C BC #### [facility] [address] [address] [address] Katrin Ceja RBC 3.99 106/ul Critically low 4.20-5.40 [facility] Comment on above: Performed By: #### C BC #### [facility] [address] [place] [address] Dr. Katrin Ceja WBC 10.4 103/ul Normal 4.0-11.0 [facility] Comment on above: Performed By: #### C BC #### [facility] [address] [place] [address] Dr. Katrin Ceja D-DIMERon 02-08-2022 D-DIMER 0.59 mg/L FEU Normal <=0.59 [facility] Comment on above: Performed By: #### L IPID, CMP #### [facility] [address] [place] [address] Dr. Katrin Ceja D-DIMER COMMENTS SEE BELOW Normal [facility] Comment on above: Result Comment: Incr [...] Performed By: #### L IPID, CMP #### [facility] [address] [place] [address] Dr. Katrin Ceja PROF CHEM 8 (BAS METB)on Anion gap [Moles/Vol] 12.8 mmol/L Normal [facility] Comment on above: Performed By: #### C BC #### [facility] [address] [place] [address] Dr. Katrin Ceja Calcium [Mass/Vol] 8.7 mg/dL Normal 8.5-10.1 [facility] Comment on above: Performed By: #### C BC #### [facility] [address] [place] [address] Dr. Katrin Ceja Chloride [Moles/Vol] 102 mmol/L Normal 98-107 [facility] Comment on above: Performed By: #### C BC #### [facility] [address] [place] [address] Dr. Katrin Ceja CO2 [Moles/Vol] 25.9 mmol/L Normal 21.0-32.0 [facility] Comment on above: Performed By: #### C BC #### [facility] [address] [place] [address] Dr. Katrin Ceja Creatinine [Mass/Vol] 0.70 mg/dL Normal 0.55-1.02 [facility] Comment on above: Performed By: #### C BC #### [facility] [address] [place] [address] Dr. Katrin Ceja EGFR-AF MARTINIQUAIS >60 Normal >=60 [facility] Comment on above: Performed By: #### C BC #### [facility] [address] [place] [address] Dr. Katrin Ceja EGFR-NON AF MARTINIQUAIS >60 Normal >=60 [facility] Comment on above: Performed By: #### C BC #### [facility] [address] [place] [address] Dr. Katrin Ceja Glucose [Mass/Vol] 95 mg/dL Normal 74-106 [facility] Comment on above: Performed By: #### C BC #### [facility] [address] [place] [address] Dr. Katrin Ceja Potassium [Moles/Vol] 2.7 mmol/L Critically low 3.5-5.1 [facility] Comment on above: Result Comment: Test Repeated. Critical Value Verified Performed By: #### C BC #### [facility] [address] [address] [address] Katrin Ceja Sodium [Moles/Vol] 136 mmol/L Normal 136-145 [facility] Comment on above: Performed By: #### C BC #### [facility] [address] [address] [address] Katrin Ceja Urea nitrogen [Mass/Vol] 3.0 mg/dL Critically low 7.0-18.0 [facility] Comment on above: Performed By: #### C BC #### [facility] [address] [place] [address] Dr. Katrin Ceja Urea nitrogen/Creatinine [Mass ratio] 4.3 mg/mg Normal [facility] Comment on above: Performed By: #### C BC #### [facility] [address] [place] [address] Dr. Katrin Ceja XR CHEST 2 Von [...] SAID Date: 2022-02-08 04:19 Normal [facility] LIPID PROFILEon 12-18-2021 CHOL-HDL RATIO NORM SEE BELOW Normal [facility] Comment on above: Result Comment: 3.3 - 4.4 LOW RISK 4.4 - 7.1 AVERAGE RISK 7.1 - 11.0 MODERATE RISK >11.0 HIGH RISK Performed By: #### L IPID, LIVER #### [facility] [address] [place] [address] Dr. Katrin Ceja Cholesterol [Mass/Vol] 126 mg/dL Normal <=200 [facility] Comment on above: Performed By: #### L IPID, LIVER #### [facility] [address] [address] [address] Katrin Ceja Cholesterol in HDL [Mass/Vol] 31 mg/dL Critically low 40-60 [facility] Comment on above: Performed By: #### L IPID, LIVER #### [facility] [address] [address] [address] Katrin Ceja Cholesterol in LDL [Mass/Vol] 59.2 mg/dL Normal [facility] Comment on above: Performed By: #### L IPID, LIVER #### [facility] [address] [place] [address] Dr. Katrin Ceja Cholesterol.total/Chol esterol in HDL [Mass ratio] 4.1 {ratio} Normal [facility] Comment on above: Performed By: #### L IPID, LIVER #### [facility] [address] [address] [address] Katrin Ceja HDL NORMAL > or = 60 mg/dl - LO W CARDIOVASCULAR RISK <40 mg/dl - HIGH CARDIOVASCULAR RISK Normal [facility] Comment on above: Performed By: #### L IPID, LIVER #### [facility] [address] [place] [address] Dr. Katrin Ceja LDL CALC NORMAL SEE BELOW Normal [facility] Comment on above: Result Comment: <100 mg/dl OPTIMAL 100 - 129 mg/dl NEAR OR ABOVE OPTIMAL 130 - 159 mg/dl BORDERLINE HIGH 160 - 189 mg/dl HIGH >190 mg/dl VERY HIGH Performed By: #### L IPID, LIVER #### [facility] [address] [address] [address] Katrin Ceja Triglyceride [Mass/Vol] 179 mg/dL Critically high <=150 [facility] Comment on above: Performed By: #### L IPID, LIVER #### [facility] [address] [address] [address] Katrin Ceja VLDL CALC 35.8 mg/dL Normal [facility] Comment on above: Performed By: #### L IPID, LIVER #### [facility] [address] [address] [address] Katrin Ceja LIVER PROFILEon 12-18-2021 Albumin [Mass/Vol] 3.6 g/dL Normal 3.4-5.0 [facility] Comment on above: Performed By: #### L IPID, LIVER #### [facility] [address] [address] [address] Katrin Ceja Albumin/Globulin [Mass ratio] 0.8 {ratio} Normal [facility] Comment on above: Performed By: #### L IPID, LIVER #### [facility] [address] [address] [address] Katrin Ceja ALP [Catalytic activity/Vol] 196 U/L Critically high 46-116 [facility] Comment on above: Performed By: #### L IPID, LIVER #### [facility] [address] [place] [address] Dr. Katrin Ceja ALT [Catalytic activity/Vol] 51 U/L Normal 14-59 [facility] Comment on above: Performed By: #### L IPID, LIVER #### [facility] [address] [address] [address] Katrin Ceja AST [Catalytic activity/Vol] 22 U/L Normal 15-37 [facility] Comment on above: Performed By: #### L IPID, LIVER #### [facility] [address] [address] [address] Katrin Ceja BILI, CONJUGATED 0.1 mg/dL Normal 0.0-0.2 [facility] Comment on above: Performed By: #### L IPID, LIVER #### [facility] [address] [address] [address] Katrin Ceja Bilirubin [Mass/Vol] 0.4 mg/dL Normal 0.2-1.0 [facility] Comment on above: Performed By: #### L IPID, LIVER #### [facility] [address] [address] [address] Katrin Ceja Globulin (S) [Mass/Vol] 4.4 g/dL Normal [facility] Comment on above: Performed By: #### L IPID, LIVER #### [facility] [address] [place], [place] [address] Dr. Katrin Ceja Protein [Mass/Vol] 8.0 g/dL Normal 6.4-8.2 [facility] Comment on above: Performed By: #### L IPID, LIVER #### [facility] [address] [place], [place] [address] Dr. Katrin Ceja XR FOOT RT MIN [...] RIVER RODGERS Date: 2021-12-07 00:19 Normal [facility] PROF 14(COMP METB)on 022 Albumin [Mass/Vol] 3.6 g/dL Normal 3.4-5.0 [facility] Comment on above: Performed By: #### L IPID, CMP #### [facility] [address] [address] [address] Katrin Ceja Albumin/Globulin [Mass ratio] 0.8 {ratio} Normal [facility] Comment on above: Performed By: #### L IPID, CMP #### [facility] [address] [place], [place] [address] Dr. Katrin Ceja ALP [Catalytic activity/Vol] 209 U/L Critically high 46-116 [facility] Comment on above: Performed By: #### L IPID, CMP #### [facility] [address] [place], [place] [address] Dr. Katrin Ceja ALT [Catalytic activity/Vol] 65 U/L Critically high 14-59 [facility] Comment on above: Performed By: #### L IPID, CMP #### [facility] [address] [address] [address] Katrin Ceja Anion gap [Moles/Vol] 15.7 mmol/L Normal [facility] Comment on above: Performed By: #### L IPID, CMP #### [facility] [address] [address] [address] Katrin Ceja AST [Catalytic activity/Vol] 31 U/L Normal 15-37 [facility] Comment on above: Performed By: #### L IPID, CMP #### [facility] [address] [address] [address] Katrin Ceja Bilirubin [Mass/Vol] 0.2 mg/dL Normal 0.2-1.3 [facility] Comment on above: Performed By: #### L IPID, CMP #### [facility] [address] [place] [address] Dr. Katrin Ceja Calcium [Mass/Vol] 8.8 mg/dL Normal 8.5-10.1 [facility] Comment on above: Performed By: #### L IPID, CMP #### [facility] [address] [address] [address] Katrin Ceja Chloride [Moles/Vol] 105 mmol/L Normal 98-107 [facility] Comment on above: Performed By: #### L IPID, CMP #### [facility] [address] [address] [address] Katrin Ceja CO2 [Moles/Vol] 21.3 mmol/L Critically low 22.0-30.0 [facility] Comment on above: Performed By: #### L IPID, CMP #### [facility] [address] [address] [address] Katrin Ceja Creatinine [Mass/Vol] 0.72 mg/dL Normal 0.52-1.04 [facility] Comment on above: Performed By: #### L IPID, CMP #### [facility] [address] [address] [address] Katrin Ceja EGFR-AF MARTINIQUAIS >60 Normal >=60 [facility] Comment on above: Performed By: #### L IPID, CMP #### [facility] [address] [address] [address] Katrin Ceja EGFR-NON AF MARTINIQUAIS >60 Normal >=60 [facility] Comment on above: Performed By: #### L IPID, CMP #### [facility] [address] [address] [address] Katrin Ceja Globulin (S) [Mass/Vol] 4.3 g/dL Normal [facility] Comment on above: Performed By: #### L IPID, CMP #### [facility] [address] [address] [address] Katrin Ceja Glucose [Mass/Vol] 99 mg/dL Normal 74-106 [facility] Comment on above: Performed By: #### L IPID, CMP #### [facility] [address] [place] [address] Dr. Katrin Ceja Potassium [Moles/Vol] 4.0 mmol/L Normal 3.4-5.0 [facility] Comment on above: Performed By: #### L IPID, CMP #### [facility] [address] [place] [address] Dr. Katrin Ceja Protein [Mass/Vol] 7.9 g/dL Normal 6.1-8.2 [facility] Comment on above: Performed By: #### L IPID, CMP #### [facility] [address] [place] [address] Dr. Katrin Ceja Sodium [Moles/Vol] 138 mmol/L Normal 137-145 [facility] Comment on above: Performed By: #### L IPID, CMP #### [facility] [address] [address] [address] Katrin Ceja Urea nitrogen [Mass/Vol] 13.0 mg/dL Normal 7.0-18.0 [facility] Comment on above: Performed By: #### L IPID, CMP #### [facility] [address] [place] [address] Dr. Katrin Ceja Urea nitrogen/Creatinine [Mass ratio] 18.1 mg/mg Normal [facility] Comment on above: Performed By: #### L IPID, CMP #### [facility] [address] [place] [address] Dr. Katrin Ceja XR HUMERUS RT MIN [...] MODESTA NAVA Date: 2021-10-17 01:46 Normal [facility] XR SHOULDER RT 2V or >on [...] MODESTA NAVA Date: 2021-10-17 01:45 Normal [facility] XR WRIST RT MIN 3 Von 2021 XR WRIST RT MIN 3 V EXAM: XR WRIST RT MS N 3 V HISTORY: Pain acute right arm pain following fall. COMPARISON: None. TECHNIQUE: AP, oblique and lateral views of the right wrist. FINDINGS: No acute or intrinsic osseous, articular or soft tissue abnormality is seen. IMPRESSION: No acute right wrist findings. Electronically authenticated by: MODESTA NAVA Date: 2021-10-17 01:44 Normal [facility] AMYLASEon 09-18-2021 Amylase [Catalytic activity/Vol] 34 U/L Normal 31-110 [facility] Comment on above: Performed By: #### P REG #### [facility] [address] [place] [address] Dr. Katrin Ceja CBC AUTO DIFFon 09-18-2021 BASO # 0.0 103/ul Normal 0.0-0.1 [facility] Comment on above: Performed By: #### C BC #### [facility] [address] [place] [address] Dr. Katrin Ceja Basophils/100 WBC (Bld) 0.3 % Normal 0.2-2.0 [facility] Comment on above: Performed By: #### C BC #### [facility] [address] [place] [address] Dr. Katrin Ceja EO # 0.2 103/ul Normal 0.0-0.7 [facility] Comment on above: Performed By: #### C BC #### [facility] [address] [place] [address] Dr. Katrin Ceja Eosinophils/100 WBC (Bld) 2.4 % Normal 0.9-7.0 [facility] Comment on above: Performed By: #### C BC #### [facility] [address] [place] [address] Dr. Katrin Ceja Erythrocyte distribution width (RBC) [Ratio] 12.5 % Normal 11.0-15.0 [facility] Comment on above: Performed By: #### C BC #### [facility] [address] [place] [address] Dr. Katrin Ceja Hematocrit (Bld) [Volume fraction] 37.4 % Normal 36.0-48.0 [facility] Comment on above: Performed By: #### C BC #### [facility] [address] [place] [address] Dr. Katrin Ceja Hemoglobin (Bld) [Mass/Vol] 12.3 g/dL Normal 12.0-16.0 [facility] Comment on above: Performed By: #### C BC #### [facility] [address] [place] [address] Dr. Katrin Ceja IG # 0.05 10e3/ul Critically high 0.00-0.03 [facility] Comment on above: Performed By: #### C BC #### [facility] [address] [place] [address] Dr. Katrin Ceja IG % 0.5 % Normal 0.0-0.5 [facility] Comment on above: Performed By: #### C BC #### [facility] [address] [place] [address] Dr. Katrin Ceja LYMPH # 3.1 103/ul Normal 1.2-3.8 [facility] Comment on above: Performed By: #### C BC #### [facility] [address] [place] [address] Dr. aKtrin Ceja Lymphocytes/100 WBC (Bld) 31.7 % Normal 20.5-60.0 [facility] Comment on above: Performed By: #### C BC #### [facility] [address] [place] [address] Dr. Katrin Ceja MANUAL DIFF REQ NO Normal [facility] Comment on above: Performed By: #### C BC #### [facility] [address] [place] [address] Dr. Katrin Ceja MCH (RBC) [Entitic mass] 28.9 pg Normal 26.7-34.0 [facility] Comment on above: Performed By: #### C BC #### [facility] [address] [place] [address] Dr. Katrin Ceja MCHC (RBC) [Mass/Vol] 32.9 g/dL Normal 29.9-35.2 [facility] Comment on above: Performed By: #### C BC #### [facility] [address] [place] [address] Dr. Katrin Ceja MCV (RBC) [Entitic vol] 88.0 fL Normal 81.0-99.0 [facility] Comment on above: Performed By: #### C BC #### [facility] [address] [place] [address] Dr. Katrin Ceja MONO # 0.7 103/ul Normal 0.3-0.8 [facility] Comment on above: Performed By: #### C BC #### [facility] [address] [place] [address] Dr. Katrin Ceja Monocytes/100 WBC (Bld) 6.7 % Normal 1.7-12.0 [facility] Comment on above: Performed By: #### C BC #### [facility] [address] [place] [address] Dr. Katrin Ceja NEUT # 5.7 103/ul Normal 1.4-6.5 [facility] Comment on above: Performed By: #### C BC #### [facility] [address] [place] [address] Dr. Katrin Ceja Neutrophils/100 WBC (Bld) 58.4 % Normal 43.0-75.0 [facility] Comment on above: Performed By: #### C BC #### [facility] [address] [place] [address] Dr. Katrin Ceja Platelet mean volume (Bld) [Entitic vol] 8.8 fL Critically low 9.5-13.5 [facility] Comment on above: Performed By: #### C BC #### [facility] [address] [place] [address] Dr. Katrin Ceja PLT 265 103/ul Normal 150-450 [facility] Comment on above: Performed By: #### C BC #### [facility] [address] [place] [address] Dr. Katrin Ceja RBC 4.25 106/ul Normal 4.20-5.40 [facility] Comment on above: Performed By: #### C BC #### [facility] [address] [place] [address] Dr. Katrin Ceja WBC 9.7 103/ul Normal 4.0-11.0 [facility] Comment on above: Performed By: #### C BC #### [facility] [address] [place] [address] ABD/PELV W CONon [...] ISAIAH FAROOQ Date: 2021-09-18 03:51 Normal [facility] ER URINE PROFILEon 2 Bilirubin Ql (U) Negative Normal NEGATIVE [facility] Comment on above: Performed By: #### C BC #### [facility] [address] [place] [address] Dr. Katrin Ceja Clarity (U) CLEAR Normal CLEAR [facility] Comment on above: Performed By: #### C BC #### [facility] [address] [place] [address] Dr. Katrin Ceja Color (U) LT. YELLOW Normal YELLOW [facility] Comment on above: Performed By: #### C BC #### [facility] [address] [place] [address] Dr. Katrin Ceja ERUAHD A micrscopic examina tion will be performed if indicated. Normal [facility] Comment on above: Performed By: #### C BC #### [facility] [address] [place] [address] Dr. Katrin Ceja Glucose Ql (U) Negative Normal NEGATIVE [facility] Comment on above: Performed By: #### C BC #### [facility] [address] [place] [address] Dr. Katrin Ceja Hemoglobin Ql (U) SMALL Abnormal NEGATIVE [facility] Comment on above: Performed By: #### C BC #### [facility] [address] [place] [address] Dr. Katrin Ceja Ketones Ql (U) Negative Normal NEGATIVE [facility] Comment on above: Performed By: #### C BC #### [facility] [address] [place] [address] Dr. Katrin Ceja LEUKOCYTES Negative Normal NEGATIVE [facility] Comment on above: Performed By: #### C BC #### [facility] [address] [place] [address] Dr. Katrin Ceja Nitrite Ql (U) Negative Normal NEGATIVE [facility] Comment on above: Performed By: #### C BC #### [facility] [address] [place] [address] Dr. Katrin Ceja pH (U) 7.5 [pH] Normal 5-9 [facility] Comment on above: Performed By: #### C BC #### [facility] [address] [place] [address] Dr. Katrin Ceja SPEC GRAVITY 1.010 Normal 1.005-<=1. 025 [facility] Comment on above: Performed By: #### C BC #### [facility] [address] [place] [address] Dr. Katrin Ceja UA PROTEIN Negative Normal NEGATIVE/ TRACE [facility] Comment on above: Performed By: #### C BC #### [facility] [address] [place] [address] Dr. Katrin Ceja UR MICRO IND INDICATED Normal [facility] Comment on above: Performed By: #### C BC #### [facility] [address] [place] [address] Dr. Katrin Ceja Urobilinogen Qn (U) 0.2 {Jeannie'U}/dL Normal 0.2 - 1. 0 [facility] Comment on above: Performed By: #### C BC #### [facility] [address] [place] [address] Dr. Katrin Ceja LIPASEon 09-18-2021 Lipase [Catalytic activity/Vol] 81.0 U/L Normal 23.0-300.0 [facility] Comment on above: Performed By: #### P REG #### [facility] [address] [place] [address] Dr. Katrin Ceja URon 09-18-2021 , QUAL Negative Normal NEGATIVE [facility] Comment on above: Performed By: #### C BC #### [facility] [address] [place] [address] Dr. Katrin Ceja PROF 14(COMP METB)on 022 Albumin [Mass/Vol] 3.2 g/dL Critically low 3.5-5.0 [facility] Comment on above: Performed By: #### P REG #### [facility] [address] [place] [address] Dr. Katrin eCja Albumin/Globulin [Mass ratio] 0.8 {ratio} Normal [facility] Comment on above: Performed By: #### P REG #### [facility] [address] [place] [address] Dr. Katrin Ceja ALP [Catalytic activity/Vol] 216 U/L Critically high 38-126 [facility] Comment on above: Performed By: #### P REG #### [facility] [address] [place] [address] Dr. Katrin Ceja ALT [Catalytic activity/Vol] 109 U/L Critically high 9-52 [facility] Comment on above: Performed By: #### P REG #### [facility] [address] [place] [address] Dr. Katrin Ceja Anion gap [Moles/Vol] 10.5 mmol/L Normal [facility] Comment on above: Performed By: #### P REG #### [facility] [address] [place] [address] Dr. Katrin Ceja AST [Catalytic activity/Vol] 66 U/L Critically high 14-36 [facility] Comment on above: Performed By: #### P REG #### [facility] [address] [place] [address] Dr. Katrin Ceja Bilirubin [Mass/Vol] 0.2 mg/dL Normal 0.2-1.3 [facility] Comment on above: Performed By: #### P REG #### [facility] [address] [place], [place] [id number] Dr. Katrin Ceja Calcium [Mass/Vol] 8.3 mg/dL Critically low 8.4-10.2 [facility] Comment on above: Performed By: #### P REG #### [facility] [address] [place] [address] Dr. Katrin Ceja Chloride [Moles/Vol] 103 mmol/L Normal 98-107 [facility] Comment on above: Performed By: #### P REG #### [facility] [address] [place] [address] Dr. Katrin Ceja CO2 [Moles/Vol] 26.2 mmol/L Normal 22.0-30.0 [facility] Comment on above: Performed By: #### P REG #### [facility] [address] [place] [address] Dr. Katrin Ceja Creatinine [Mass/Vol] 0.81 mg/dL Normal 0.52-1.04 [facility] Comment on above: Performed By: #### P REG #### [facility] [address] [place] [address] Dr. Katrin Ceja EGFR-AF MARTINIQUAIS >60 Normal >=60 [facility] Comment on above: Performed By: #### P REG #### [facility] [address] [place] [address] Dr. Katrin Ceja EGFR-NON AF MARTINIQUAIS >60 Normal >=60 [facility] Comment on above: Performed By: #### P REG #### [facility] [address] [place] [address] Dr. Katrin Ceja Globulin (S) [Mass/Vol] 4.1 g/dL Normal [facility] Comment on above: Performed By: #### P REG #### [facility] [address] [place] [address] Dr. Katrin Ceja Glucose [Mass/Vol] 90 mg/dL Normal 74-106 [facility] Comment on above: Performed By: #### P REG #### [facility] [address] [place] [address] Dr. Katrin Ceja Potassium [Moles/Vol] 3.7 mmol/L Normal 3.4-5.0 [facility] Comment on above: Performed By: #### P REG #### [facility] [address] [place] [address] Dr. Katrin Cjea Protein [Mass/Vol] 7.3 g/dL Normal 6.1-8.2 [facility] Comment on above: Performed By: #### P REG #### [facility] [address] [place] [address] Dr. Katrin Ceja Sodium [Moles/Vol] 136 mmol/L Critically low 137-145 [facility] Comment on above: Performed By: #### P REG #### [facility] [address] [place] [address] Dr. Katrin Ceja Urea nitrogen [Mass/Vol] 5.0 mg/dL Critically low 7.0-17.0 [facility] Comment on above: Performed By: #### P REG #### [facility] [address] [place] [address] Dr. Katrin Ceja Urea nitrogen/Creatinine [Mass ratio] 6.2 mg/mg Normal [facility] Comment on above: Performed By: #### P REG #### [facility] [address] [place] [address] Dr. Katrin Ceja URINE MICROSCOPIC ONLYon BACTERIA NONE SEEN Normal NONE SEEN [facility] Comment on above: Performed By: #### C BC #### [facility] [address] [place] [address] Dr. Katrin Ceja Bacteria identified Cx Nom (U) NOT INDICATED Normal [facility] Comment on above: Performed By: #### C BC #### [facility] [address] [place] [address] Dr. Katrin Ceja CAST NONE SEEN Normal NONE SEEN [facility] Comment on above: Performed By: #### C BC #### [facility] [address] [place] [address] Dr. Katrin Ceja Crystals LM Nom (Urine sed) NONE SEEN Normal NONE SEEN [facility] Comment on above: Performed By: #### C BC #### [facility] [address] [place] [address] Dr. Katrin Ceja Epithelial cells LM Ql (Urine sed) FEW Abnormal NONE SEEN /RARE [facility] Comment on above: Performed By: #### C BC #### [facility] [address] [place] [address] Dr. Katrin Ceja MUCOUS NONE SEEN Normal NONE SEEN [facility] Comment on above: Performed By: #### C BC #### [facility] [address] [place] [address] Dr. Katrin Ceja RBC NONE SEEN Abnormal 0-2 [facility] Comment on above: Performed By: #### C BC #### [facility] [address] [place] [address] Dr. Katrin Ceja WBC NONE SEEN Normal NONE SEEN [facility] Comment on above: Performed By: #### C BC #### [facility] [address] [place] [address] Dr. Katrin Ceja XR ABD FLAT UP_PA [...] ISAIAH FAROOQ Date: 2021-09-18 02:00 Normal [facility] CBC AUTO DIFFon 07-18-2021 BASO # 0.0 103/ul Normal 0.0-0.1 [facility] Comment on above: Performed By: #### C BC #### [facility] [address] [place] [address] Dr. Katrin Ceja Basophils/100 WBC (Bld) 0.3 % Normal 0.2-2.0 [facility] Comment on above: Performed By: #### C BC #### [facility] [address] [place] [address] Dr. Katrin Ceja EO # 0.2 103/ul Normal 0.0-0.7 [facility] Comment on above: Performed By: #### C BC #### [facility] [address] [place] [address] Dr. Katrin Ceja Eosinophils/100 WBC (Bld) 1.7 % Normal 0.9-7.0 [facility] Comment on above: Performed By: #### C BC #### [facility] [address] [place] [address] Dr. Katrin Ceja Erythrocyte distribution width (RBC) [Ratio] 13.1 % Normal 11.0-15.0 [facility] Comment on above: Performed By: #### C BC #### [facility] [address] [place] [address] Dr. Katrin Ceja Hematocrit (Bld) [Volume fraction] 42.0 % Normal 36.0-48.0 [facility] Comment on above: Performed By: #### C BC #### [facility] [address] [place] [address] Dr. Katrin Ceja Hemoglobin (Bld) [Mass/Vol] 13.7 g/dL Normal 12.0-16.0 [facility] Comment on above: Performed By: #### C BC #### [facility] [address] [place] [address] Dr. Katrin Ceja IG # 0.07 10e3/ul Critically high 0.00-0.03 [facility] Comment on above: Performed By: #### C BC #### [facility] [address] [place] [address] Dr. Katrin Ceja IG % 0.6 % Critically high 0.0-0.5 [facility] Comment on above: Performed By: #### C BC #### [facility] [address] [place] [address] Dr. Katrin Ceja LYMPH # 2.9 103/ul Normal 1.2-3.8 [facility] Comment on above: Performed By: #### C BC #### [facility] [address] [place] [address] Dr. Katrin Ceja Lymphocytes/100 WBC (Bld) 27.1 % Normal 20.5-60.0 [facility] Comment on above: Performed By: #### C BC #### [facility] [address] [place] [address] Dr. Katrin Ceja MANUAL DIFF REQ NO Normal [facility] Comment on above: Performed By: #### C BC #### [facility] [address] [place] [address] Dr. Katrin Ceja MCH (RBC) [Entitic mass] 29.3 pg Normal 26.7-34.0 [facility] Comment on above: Performed By: #### C BC #### [facility] [address] [place] [address] Dr. Katrin Ceja MCHC (RBC) [Mass/Vol] 32.6 g/dL Normal 29.9-35.2 [facility] Comment on above: Performed By: #### C BC #### [facility] [address] [place] [address] Dr. Katrin Ceja MCV (RBC) [Entitic vol] 89.7 fL Normal 81.0-99.0 [facility] Comment on above: Performed By: #### C BC #### [facility] [address] [place] [address] Dr. Katrin Ceja MONO # 0.9 103/ul Critically high 0.3-0.8 [facility] Comment on above: Performed By: #### C BC #### [facility] [address] [place] [address] Dr. aKtrin Ceja Monocytes/100 WBC (Bld) 8.2 % Normal 1.7-12.0 [facility] Comment on above: Performed By: #### C BC #### [facility] [address] [place] [address] Dr. Katrin Ceja NEUT # 6.7 103/ul Critically high 1.4-6.5 [facility] Comment on above: Performed By: #### C BC #### [facility] [address] [place] [address] Dr. Katrin Ceja Neutrophils/100 WBC (Bld) 62.1 % Normal 43.0-75.0 [facility] Comment on above: Performed By: #### C BC #### [facility] [address] [place] [address] Dr. Katrin Ceja Platelet mean volume (Bld) [Entitic vol] 9.7 fL Normal 9.5-13.5 [facility] Comment on above: Performed By: #### C BC #### [facility] [address] [address] [address] Katrin Ceja PLT 334 103/ul Normal 150-450 [facility] Comment on above: Performed By: #### C BC #### [facility] [address] [place] [address] Dr. Katrin Ceja RBC 4.68 106/ul Normal 4.20-5.40 [facility] Comment on above: Performed By: #### C BC #### [facility] [address] [place] [address] Dr. Katrin Ceja WBC 10.8 103/ul Normal 4.0-11.0 [facility] Comment on above: Performed By: #### C BC #### [facility] [address] [address] [address] Katrin Ceja GLYCOHEMOGLOBIN A1Con 2021 ADA RECOMMENDATION ADA THERAPEUTIC TARG ET 6.0 - 7.0 ACTION SUGGESTED > 7.0 Normal [facility] Comment on above: Performed By: #### C BC #### [facility] [address] [place] [address] Dr. Katrin Ceja Glucose [Mass/Vol] 105 mg/dL Normal [facility] Comment on above: Performed By: #### C BC #### [facility] [address] [address] [address] Katrin Ceja HbA1c (Bld) [Mass fraction] 5.3 % Normal <=6.0 [facility] Comment on above: Performed By: #### C BC #### [facility] [address] [place] [address] Dr. Katrin Ceja LIPID PROFILEon 07-18-2021 CHOL-HDL RATIO NORM SEE BELOW Normal [facility] Comment on above: Result Comment: 3.3 - 4.4 LOW RISK 4.4 - 7.1 AVERAGE RISK 7.1 - 11.0 MODERATE RISK >11.0 HIGH RISK Performed By: #### L IPID, CMP #### [facility] [address] [address] [address] Katrin Ceja Cholesterol [Mass/Vol] 302 mg/dL Critically high <=200 [facility] Comment on above: Performed By: #### L IPID, CMP #### [facility] [address] [address] [address] Katrin Ceja Cholesterol in HDL [Mass/Vol] 39 mg/dL Normal [facility] Comment on above: Performed By: #### L IPID, CMP #### [facility] [address] [address] [address] Katrin Ceja Cholesterol in LDL [Mass/Vol] 207.0 mg/dL Normal [facility] Comment on above: Performed By: #### L IPID, CMP #### [facility] [address] [address] [address] Katrin Ceja Cholesterol.total/Chol esterol in HDL [Mass ratio] 7.7 {ratio} Normal [facility] Comment on above: Performed By: #### L IPID, CMP #### [facility] [address] [address] [address] Katrin Cjea HDL NORMAL > or = 60 mg/dl - LO W CARDIOVASCULAR RISK <40 mg/dl - HIGH CARDIOVASCULAR RISK Normal [facility] Comment on above: Performed By: #### L IPID, CMP #### [facility] [address] [address] [address] Katrin Ceja LDL CALC NORMAL SEE BELOW Normal [facility] Comment on above: Result Comment: <100 mg/dl OPTIMAL 100 - 129 mg/dl NEAR OR ABOVE OPTIMAL 130 - 159 mg/dl BORDERLINE HIGH 160 - 189 mg/dl HIGH >190 mg/dl VERY HIGH Performed By: #### L IPID, CMP #### [facility] [address] [address] [address] Katrin Ceja Triglyceride [Mass/Vol] 280 mg/dL Critically high <=150 [facility] Comment on above: Performed By: #### L IPID, CMP #### [facility] [address] [place] [address] Dr. Katrin Ceja VLDL CALC 56.0 mg/dL Normal [facility] Comment on above: Performed By: #### L IPID, CMP #### [facility] [address] [place] [address] Dr. Katrin Ceja PROF 14(COMP METB)on 022 Albumin [Mass/Vol] 3.5 g/dL Normal 3.5-5.0 [facility] Comment on above: Performed By: #### L IPID, CMP #### [facility] [address] [place] [address] Dr. Katrin Ceja Albumin/Globulin [Mass ratio] 0.7 {ratio} Normal [facility] Comment on above: Performed By: #### L IPID, CMP #### [facility] [address] [place] [address] Dr. Katrin Ceja ALP [Catalytic activity/Vol] 291 U/L Critically high 38-126 [facility] Comment on above: Performed By: #### L IPID, CMP #### [facility] [address] [place] [address] Dr. Katrin Ceja ALT [Catalytic activity/Vol] 174 U/L Critically high 9-52 [facility] Comment on above: Performed By: #### L IPID, CMP #### [facility] [address] [place] [address] Dr. Katrin Ceja Anion gap [Moles/Vol] 15.3 mmol/L Normal [facility] Comment on above: Performed By: #### L IPID, CMP #### [facility] [address] [place] [address] Dr. Katrin Ceja AST [Catalytic activity/Vol] 97 U/L Critically high 14-36 [facility] Comment on above: Performed By: #### L IPID, CMP #### [facility] [address] [place] [address] Dr. Katrin Ceja Bilirubin [Mass/Vol] 0.4 mg/dL Normal 0.2-1.3 [facility] Comment on above: Performed By: #### L IPID, CMP #### [facility] [address] [place] [address] Dr. Katrin Ceja Calcium [Mass/Vol] 9.3 mg/dL Normal 8.4-10.2 [facility] Comment on above: Performed By: #### L IPID, CMP #### [facility] [address] [place] [address] Dr. Katrin Ceja Chloride [Moles/Vol] 99 mmol/L Normal 98-107 [facility] Comment on above: Performed By: #### L IPID, CMP #### [facility] [address] [place] [address] Dr. Katrin Ceja CO2 [Moles/Vol] 24.1 mmol/L Normal 22.0-30.0 [facility] Comment on above: Performed By: #### L IPID, CMP #### [facility] [address] [place] [address] Dr. Katrin Ceja Creatinine [Mass/Vol] 0.65 mg/dL Normal 0.52-1.04 [facility] Comment on above: Performed By: #### L IPID, CMP #### [facility] [address] [place] [address] Dr. Katrin Ceja EGFR-AF MARTINIQUAIS >60 Normal >=60 [facility] Comment on above: Performed By: #### L IPID, CMP #### [facility] [address] [place] [address] Dr. Katrin Ceja EGFR-NON AF MARTINIQUAIS >60 Normal >=60 [facility] Comment on above: Performed By: #### L IPID, CMP #### [facility] [address] [place] [address] Dr. Katrin Ceja Globulin (S) [Mass/Vol] 5.0 g/dL Normal [facility] Comment on above: Performed By: #### L IPID, CMP #### [facility] [address] [place] [address] Dr. Katrin Ceja Glucose [Mass/Vol] 86 mg/dL Normal 74-106 [facility] Comment on above: Performed By: #### L IPID, CMP #### [facility] [address] [place] [address] Dr. Katrin Ceja Potassium [Moles/Vol] 4.4 mmol/L Normal 3.4-5.0 [facility] Comment on above: Performed By: #### L IPID, CMP #### [facility] [address] [place] [address] Dr. Katrin Ceja Protein [Mass/Vol] 8.5 g/dL Critically high 6.1-8.2 [facility] Comment on above: Performed By: #### L IPID, CMP #### [facility] [address] [place] [address] Dr. Katrin Ceja Sodium [Moles/Vol] 134 mmol/L Critically low 137-145 [facility] Comment on above: Performed By: #### L IPID, CMP #### [facility] [address] [place] [address] Dr. Katrin Ceja Urea nitrogen [Mass/Vol] 8.0 mg/dL Normal 7.0-17.0 [facility] Comment on above: Performed By: #### L IPID, CMP #### [facility] [address] [place] [address] Dr. Katrin Ceja Urea nitrogen/Creatinine [Mass ratio] 12.3 mg/mg Normal [facility] Comment on above: Performed By: #### L IPID, CMP #### [facility] [address] [place] [address] Dr. Katrin Ceja AMYLASEon 05-01-2021 AMYL <30 Critically low 31-110 [facility] Comment on above: Performed By: #### P REG #### [facility] [address] [place] [address] Dr. Katrin Ceja CBC AUTO DIFFon 05-01-2021 BASO # 0.0 103/ul Normal 0.0-0.1 [facility] Comment on above: Performed By: #### L IPID, CMP #### [facility] [address] [address] [address] Katrin Ceja Basophils/100 WBC (Bld) 0.3 % Normal 0.2-2.0 [facility] Comment on above: Performed By: #### L IPID, CMP #### [facility] [address] [address] [address] Katrin Ceja EO # 0.1 103/ul Normal 0.0-0.7 [facility] Comment on above: Performed By: #### L IPID, CMP #### [facility] [address] [place] [address] Dr. Katrin Ceja Eosinophils/100 WBC (Bld) 0.4 % Critically low 0.9-7.0 [facility] Comment on above: Performed By: #### L IPID, CMP #### [facility] [address] [place] [address] Dr. Katrin Ceja Erythrocyte distribution width (RBC) [Ratio] 13.0 % Normal 11.0-15.0 [facility] Comment on above: Performed By: #### L IPID, CMP #### [facility] [address] [place] [address] Dr. Katrin Ceja Hematocrit (Bld) [Volume fraction] 37.7 % Normal 36.0-48.0 [facility] Comment on above: Performed By: #### L IPID, CMP #### [facility] [address] [place] [address] Dr. Katrin Ceja Hemoglobin (Bld) [Mass/Vol] 12.5 g/dL Normal 12.0-16.0 [facility] Comment on above: Performed By: #### L IPID, CMP #### [facility] [address] [place] [address] Dr. Katrin Ceja IG # 0.09 10e3/ul Critically high 0.00-0.03 [facility] Comment on above: Performed By: #### L IPID, CMP #### [facility] [address] [place] [address] Dr. Katrin Ceja IG % 0.6 % Critically high 0.0-0.5 [facility] Comment on above: Performed By: #### L IPID, CMP #### [facility] [address] [address] [address] Katrin Ceja LYMPH # 1.9 103/ul Normal 1.2-3.8 [facility] Comment on above: Performed By: #### L IPID, CMP #### [facility] [address] [address] [address] Katrin Ceja Lymphocytes/100 WBC (Bld) 12.1 % Critically low 20.5-60.0 [facility] Comment on above: Performed By: #### L IPID, CMP #### [facility] [address] [place] [address] Dr. Katrin Ceja MANUAL DIFF REQ NO Normal [facility] Comment on above: Performed By: #### L IPID, CMP #### [facility] [address] [place] [address] Dr. Katrin Ceja MCH (RBC) [Entitic mass] 28.8 pg Normal 26.7-34.0 [facility] Comment on above: Performed By: #### L IPID, CMP #### [facility] [address] [place] [address] Dr. Katrin Ceja MCHC (RBC) [Mass/Vol] 33.2 g/dL Normal 29.9-35.2 [facility] Comment on above: Performed By: #### L IPID, CMP #### [facility] [address] [place] [address] Dr. Katrin Ceja MCV (RBC) [Entitic vol] 86.9 fL Normal 81.0-99.0 [facility] Comment on above: Performed By: #### L IPID, CMP #### [facility] [address] [place] [address] Dr. Katrin Ceja MONO # 1.1 103/ul Critically high 0.3-0.8 [facility] Comment on above: Performed By: #### L IPID, CMP #### [facility] [address] [place] [address] Dr. Katrin Ceja Monocytes/100 WBC (Bld) 7.1 % Normal 1.7-12.0 [facility] Comment on above: Performed By: #### L IPID, CMP #### [facility] [address] [place] [address] Dr. Katrin Ceja NEUT # 12.3 103/ul Critically high 1.4-6.5 [facility] Comment on above: Performed By: #### L IPID, CMP #### [facility] [address] [place] [address] Dr. Katrin Ceja Neutrophils/100 WBC (Bld) 79.5 % Critically high 43.0-75.0 [facility] Comment on above: Performed By: #### L IPID, CMP #### [facility] [address] [place] [address] Dr. Katrin Ceja Platelet mean volume (Bld) [Entitic vol] 8.7 fL Critically low 9.5-13.5 [facility] Comment on above: Performed By: #### L IPID, CMP #### [facility] [address] [place] [address] Dr. Katrin Ceja PLT 329 103/ul Normal 150-450 [facility] Comment on above: Performed By: #### L IPID, CMP #### [facility] [address] [place] [address] Dr. Katrin Ceja RBC 4.34 106/ul Normal 4.20-5.40 [facility] Comment on above: Performed By: #### L IPID, CMP #### [facility] [address] [place] [address] Dr. Katrin Ceja WBC 15.5 103/ul Critically high 4.0-11.0 [facility] Comment on above: Performed By: #### L IPID, CMP #### [facility] [address] [place] [address] ABD/PELV W CONon [...] HILDA RAHMAN Date: 2021-05-01 20:30 Normal [facility] LIPASEon 05-01-2021 Lipase [Catalytic activity/Vol] 64.0 U/L Normal 23.0-300.0 [facility] Comment on above: Performed By: #### P REG #### [facility] [address] [place] [address] Dr. Katrin Ceja LIVER PROFILEon 05-01-2021 Albumin [Mass/Vol] 3.3 g/dL Critically low 3.5-5.0 [facility] Comment on above: Performed By: #### L IPID, CMP #### [facility] [address] [address] [address] Katrin Ceja Albumin/Globulin [Mass ratio] 0.6 {ratio} Normal [facility] Comment on above: Performed By: #### L IPID, CMP #### [facility] [address] [address] [address] Katrin Ceja ALP [Catalytic activity/Vol] 412 U/L Critically high 38-126 [facility] Comment on above: Performed By: #### L IPID, CMP #### [facility] [address] [place] [address] Dr. Katrin Ceja ALT [Catalytic activity/Vol] 124 U/L Critically high 9-52 [facility] Comment on above: Performed By: #### L IPID, CMP #### [facility] [address] [place] [address] Dr. Katrin Ceja AST [Catalytic activity/Vol] 61 U/L Critically high 14-36 [facility] Comment on above: Performed By: #### L IPID, CMP #### [facility] [address] [place] [address] Dr. Katrin Ceja BILI, CONJUGATED 0.2 mg/dL Normal 0.0-0.3 [facility] Comment on above: Performed By: #### L IPID, CMP #### [facility] [address] [place] [address] Dr. Katrin Ceja Bilirubin [Mass/Vol] 0.4 mg/dL Normal 0.2-1.3 [facility] Comment on above: Performed By: #### L IPID, CMP #### [facility] [address] [place] [address] Dr. Katrin Ceja Globulin (S) [Mass/Vol] 5.1 g/dL Normal [facility] Comment on above: Performed By: #### L IPID, CMP #### [facility] [address] [place] [address] Dr. Katrin Ceja Protein [Mass/Vol] 8.4 g/dL Critically high 6.1-8.2 [facility] Comment on above: Performed By: #### L IPID, CMP #### [facility] [address] [address] [address] Katrin Ceja PREG HCG QUALon 05-01-2021 , QUAL Negative Normal NEGATIVE [facility] Comment on above: Performed By: #### P REG #### [facility] [address] [address] [address] Katrin Ceja PROF CHEM 8 (BAS METB)on Anion gap [Moles/Vol] 17.1 mmol/L Normal [facility] Comment on above: Performed By: #### P REG #### [facility] [address] [place] [address] Dr. Katrin Ceja Calcium [Mass/Vol] 8.9 mg/dL Normal 8.4-10.2 [facility] Comment on above: Performed By: #### P REG #### [facility] [address] [address] [address] Katrin Ceja Chloride [Moles/Vol] 100 mmol/L Normal 98-107 [facility] Comment on above: Performed By: #### P REG #### [facility] [address] [place] [address] Dr. Katrin Ceja CO2 [Moles/Vol] 21.1 mmol/L Critically low 22.0-30.0 [facility] Comment on above: Performed By: #### P REG #### [facility] [address] [address] [address] Katrin Ceja Creatinine [Mass/Vol] 0.78 mg/dL Normal 0.52-1.04 [facility] Comment on above: Performed By: #### P REG #### [facility] [address] [place] [address] Dr. Katrin Ceja EGFR-AF MARTINIQUAIS >60 Normal >=60 [facility] Comment on above: Performed By: #### P REG #### [facility] [address] [address] [address] Katrin Ceja EGFR-NON AF MARTINIQUAIS >60 Normal >=60 [facility] [facility] Comment on above: Performed By: #### P REG #### [facility] [address] [address] [address] Katrin Ceja Glucose [Mass/Vol] 97 mg/dL Normal 74-106 [facility] Comment on above: Performed By: #### P REG #### [facility] [address] [address] [address] Katrin Ceja Potassium [Moles/Vol] 4.2 mmol/L Normal 3.4-5.0 [facility] Comment on above: Performed By: #### P REG #### [facility] [address] [address] [address] Katrin Ceja Sodium [Moles/Vol] 134 mmol/L Critically low 137-145 [facility] Comment on above: Performed By: #### P REG #### [facility] [address] [address] [address] Katrin Ceja Urea nitrogen [Mass/Vol] 6.0 mg/dL Critically low 7.0-17.0 [facility] Comment on above: Performed By: #### P REG #### [facility] [address] [place] [address] Dr. Katrin Ceja Urea nitrogen/Creatinine [Mass ratio] 7.7 mg/mg Normal [facility] Comment on above: Performed By: #### P REG #### [facility] [address] [address] [address] Katrin Ceja CBC AUTO DIFFon 04-29-2021 BASO # 0.1 103/ul Normal 0.0-0.1 [facility] Comment on above: Performed By: #### L IPID, CMP #### [facility] [address] [address] [address] Katrin Ceja Basophils/100 WBC (Bld) 0.4 % Normal 0.2-2.0 [facility] Comment on above: Performed By: #### L IPID, CMP #### [facility] [address] [address] [address] Katrin Ceja EO # 0.2 103/ul Normal 0.0-0.7 [facility] Comment on above: Performed By: #### L IPID, CMP #### [facility] [address] [place] [address] Dr. Katrin Ceja Eosinophils/100 WBC (Bld) 1.7 % Normal 0.9-7.0 [facility] Comment on above: Performed By: #### L IPID, CMP #### [facility] [address] [place] [address] Dr. Katrin Ceja Erythrocyte distribution width (RBC) [Ratio] 12.9 % Normal 11.0-15.0 [facility] Comment on above: Performed By: #### L IPID, CMP #### [facility] [address] [place] [address] Dr. Katrin Ceja Hematocrit (Bld) [Volume fraction] 39.0 % Normal 36.0-48.0 [facility] Comment on above: Performed By: #### L IPID, CMP #### [facility] [address] [place] [address] Dr. Katrin Ceja Hemoglobin (Bld) [Mass/Vol] 12.9 g/dL Normal 12.0-16.0 [facility] Comment on above: Performed By: #### L IPID, CMP #### [facility] [address] [place] [address] Dr. Katrin Ceja IG # 0.08 10e3/ul Critically high 0.00-0.03 [facility] Comment on above: Performed By: #### L IPID, CMP #### [facility] [address] [place] [address] Dr. Katrin Ceja IG % 0.6 % Critically high 0.0-0.5 [facility] Comment on above: Performed By: #### L IPID, CMP #### [facility] [address] [place] [address] Dr. Katrin Ceja LYMPH # 3.2 103/ul Normal 1.2-3.8 [facility] Comment on above: Performed By: #### L IPID, CMP #### [facility] [address] [place] [address] Dr. Katrin Ceja Lymphocytes/100 WBC (Bld) 24.4 % Normal 20.5-60.0 [facility] Comment on above: Performed By: #### L IPID, CMP #### [facility] [address] [place] [address] Dr. Katrin Ceja MANUAL DIFF REQ NO Normal [facility] Comment on above: Performed By: #### L IPID, CMP #### [facility] [address] [place] [address] Dr. Katrin Ceja MCH (RBC) [Entitic mass] 29.1 pg Normal 26.7-34.0 [facility] Comment on above: Performed By: #### L IPID, CMP #### [facility] [address] [place] [address] Dr. Katrin Ceja MCHC (RBC) [Mass/Vol] 33.1 g/dL Normal 29.9-35.2 [facility] Comment on above: Performed By: #### L IPID, CMP #### [facility] [address] [place] [address] Dr. Katrin Ceja MCV (RBC) [Entitic vol] 88.0 fL Normal 81.0-99.0 [facility] Comment on above: Performed By: #### L IPID, CMP #### [facility] [address] [place] [address] Dr. Katrin Ceja MONO # 1.2 103/ul Critically high 0.3-0.8 [facility] Comment on above: Performed By: #### L IPID, CMP #### [facility] [address] [place] [address] Dr. Katrin Ceja Monocytes/100 WBC (Bld) 9.2 % Normal 1.7-12.0 [facility] Comment on above: Performed By: #### L IPID, CMP #### [facility] [address] [place] [address] Dr. Katrin Ceja NEUT # 8.3 103/ul Critically high 1.4-6.5 [facility] Comment on above: Performed By: #### L IPID, CMP #### [facility] [address] [place] [address] Dr. Katrin Ceja Neutrophils/100 WBC (Bld) 63.7 % Normal 43.0-75.0 [facility] Comment on above: Performed By: #### L IPID, CMP #### [facility] [address] [place] [address] Dr. Katrin Ceja Platelet mean volume (Bld) [Entitic vol] 9.2 fL Critically low 9.5-13.5 [facility] Comment on above: Performed By: #### L IPID, CMP #### [facility] [address] [place] [address] Dr. Katrin Ceja PLT 384 103/ul Normal 150-450 [facility] Comment on above: Performed By: #### L IPID, CMP #### [facility] [address] [place] [address] Dr. Katrin Ceja RBC 4.43 106/ul Normal 4.20-5.40 [facility] Comment on above: Performed By: #### L IPID, CMP #### [facility] [address] [place] [address] Dr. Katrin Ceja WBC 13.1 103/ul Critically high 4.0-11.0 [facility] Comment on above: Performed By: #### L IPID, CMP #### [facility] [address] [place] [address] ABD/PELV W CONon [...] by: Lorenzo LAN Date: 2021-04-29 02:49 Normal [facility] LACTATE/LACTIC ACIDon 2020 Lactate [Moles/Vol] 1.2 mmol/L Normal 0.7-2.0 [facility] Comment on above: Performed By: #### C BC #### [facility] [address] [place], [place] [address] Dr. Katrin Ceja PROF 14(COMP METB)on 021 Albumin [Mass/Vol] 3.4 g/dL Critically low 3.5-5.0 [facility] Comment on above: Performed By: #### C BC #### [facility] [address] [place], [place] [address] Dr. Katrin Ceja Albumin/Globulin [Mass ratio] 0.7 {ratio} Normal [facility] Comment on above: Performed By: #### C BC #### [facility] [address] [address] [address] Katrin Ceja ALP [Catalytic activity/Vol] 359 U/L Critically high 38-126 [facility] Comment on above: Performed By: #### C BC #### [facility] [address] [address] [address] Katrin Ceja ALT [Catalytic activity/Vol] 193 U/L Critically high 9-52 [facility] Comment on above: Performed By: #### C BC #### [facility] [address] [address] [address] Katrin Ceja Anion gap [Moles/Vol] 13.3 mmol/L Normal [facility] Comment on above: Performed By: #### C BC #### [facility] [address] [place] [address] Dr. Katrin Ceja AST [Catalytic activity/Vol] 115 U/L Critically high 14-36 [facility] Comment on above: Performed By: #### C BC #### [facility] [address] [address] [address] Katrin Ceja Bilirubin [Mass/Vol] 0.5 mg/dL Normal 0.2-1.3 [facility] Comment on above: Performed By: #### C BC #### [facility] [address] [place] [address] Dr. Katrin Ceja Calcium [Mass/Vol] 9.5 mg/dL Normal 8.4-10.2 [facility] Comment on above: Performed By: #### C BC #### [facility] [address] [address] [address] Katrin Ceja Chloride [Moles/Vol] 101 mmol/L Normal 98-107 [facility] Comment on above: Performed By: #### C BC #### [facility] [address] [address] [address] Katrin Ceja CO2 [Moles/Vol] 23.7 mmol/L Normal 22.0-30.0 [facility] Comment on above: Performed By: #### C BC #### [facility] [address] [place] [address] Dr. Katrin Ceja Creatinine [Mass/Vol] 0.83 mg/dL Normal 0.52-1.04 [facility] Comment on above: Performed By: #### C BC #### [facility] [address] [address] [address] Katrin Ceja EGFR-AF MARTINIQUAIS >60 Normal >=60 [facility] Comment on above: Performed By: #### C BC #### [facility] [address] [place] [address] Dr. Katrin Ceja EGFR-NON AF MARTINIQUAIS >60 Normal >=60 [facility] Comment on above: Performed By: #### C BC #### [facility] [address] [place] [address] Dr. Katrin Ceja Globulin (S) [Mass/Vol] 5.1 g/dL Normal [facility] Comment on above: Performed By: #### C BC #### [facility] [address] [place] [address] Dr. Katrin Ceja Glucose [Mass/Vol] 102 mg/dL Normal 74-106 [facility] Comment on above: Performed By: #### C BC #### [facility] [address] [place] [address] Dr. Katrin Ceja Potassium [Moles/Vol] 4.0 mmol/L Normal 3.4-5.0 [facility] Comment on above: Performed By: #### C BC #### [facility] [address] [place] [address] Dr. Katrin Ceja Protein [Mass/Vol] 8.5 g/dL Critically high 6.1-8.2 [facility] Comment on above: Performed By: #### C BC #### [facility] [address] [place] [address] Dr. Katrin Ceja Sodium [Moles/Vol] 134 mmol/L Critically low 137-145 [facility] Comment on above: Performed By: #### C BC #### [facility] [address] [place] [address] Dr. Katrin Ceja Urea nitrogen [Mass/Vol] 6.0 mg/dL Critically low 7.0-17.0 [facility] Comment on above: Performed By: #### C BC #### [facility] [address] [place], [place] [address] Dr. Katrin Ceja Urea nitrogen/Creatinine [Mass ratio] 7.2 mg/mg Normal [facility] Comment on above: Performed By: #### C BC #### [facility] [id number] Katrin Ceja XR CHEST 1 Von [...] GU Date: 2021-04-28 23:45 Normal [facility] Acetaminophen (Tylenol) Leve kit 03-22-2019 Acetaminophen [Mass/Vol] <10 Normal 10.0-30.0 [facility] Comment on above: Performed By: #### 1 4581-3, 12573-2, 30042-5, 51761-2x9, 20542-9, 37052-9 #### [facility] [address] [place], [place] Alcohol (Ethanol) Levelon Ethanol [Mass/Vol] mg/dL Normal 0.00-0.00 [facility] Comment on above: Performed By: #### 1 4581-3, 61230-8, 05028-5, 36456-0b9, 69026-9, 23176-0 #### [facility] [address] [place], [place] CBC with Differentialon Basophils (Bld) [#/Vol] 0.10 thou/mcL Normal 0.00-0.20 [facility] Comment on above: Performed By: #### 5 7021-8 #### [facility] [address] [place], [place] Basophils/100 WBC (Bld) 0.7 % Normal 0.0-2.0 [facility] Comment on above: Performed By: #### 5 7021-8 #### [facility] [address] [place], [place] Eosinophils (Bld) [#/Vol] 0.40 thou/mcL Normal 0.00-0.70 [facility] Comment on above: Performed By: #### 5 7021-8 #### [facility] [address] [place], [place] Eosinophils/100 WBC (Bld) 3.7 % Normal 0.0-7.0 [facility] Comment on above: Performed By: #### 5 7021-8 #### [facility] [address] [place], [place] Erythrocyte distribution width (RBC) [Entitic vol] 12.6 % Normal 11.0-14.8 [facility] Comment on above: Performed By: #### 5 7021-8 #### [facility] [address] [place], [place] Hematocrit (Bld) [Volume fraction] 38.5 % Normal 35.0-45.0 [facility] Comment on above: Performed By: #### 5 7021-8 #### [facility] [address] [place], [place] Hemoglobin (Bld) [Mass/Vol] 13.3 g/dL Normal 12.0-16.0 [facility] Comment on above: Performed By: #### 5 7021-8 #### [facility] [address] [place], [place] Lymphocytes (Bld) [#/Vol] 3.10 thou/mcL Normal 1.00-4.80 [facility] Comment on above: Performed By: #### 5 7021-8 #### [facility] [address] [place], [place] Lymphocytes/100 WBC (Bld) 30.1 % Normal 22.0-44.0 [facility] Comment on above: Performed By: #### 5 7021-8 #### [facility] [address] [place], [place] MCH (RBC) [Entitic mass] 30.8 Picograms Normal 27.0-34.0 [facility] Comment on above: Performed By: #### 7021-8 #### [facility] [address] [place], [place] MCHC (RBC) [Mass/Vol] 34.7 g/dL Normal 32.0-36.0 [facility] Comment on above: Performed By: #### 70-8 #### [facility] [address] [place] [address] MCV (RBC) [Entitic vol] 88.8 fL Normal 80.0-97.0 [facility] Comment on above: Performed By: #### 70-8 #### [facility] Monocytes (Bld) [#/Vol] 1.10 thou/mcL High 0.00-0.90 [facility] Comment on above: Performed By: #### 7021-8 #### [address] Monocytes/100 WBC (Bld) 10.4 % Normal 0.0-12.0 [facility] Comment on above: Performed By: #### 7021-8 #### [address] Neutrophils (Bld) [#/Vol] 5.60 thou/mcL Normal 1.80-7.70 [facility] Comment on above: Performed By: #### 7021-8 #### [address] Neutrophils/100 WBC (Bld) 55.1 % Normal 40.0-70.0 [facility] Comment on above: Performed By: #### 7021-8 #### [facility] [address] [place], [place] Platelet mean volume (Bld) [Entitic vol] 7.5 fL Normal 6.2-12.1 [facility] Comment on above: Performed By: #### 5 7021-8 #### [facility] [address] [place], [place] Platelets (Bld) [#/Vol] 280 thou/mcL Normal 142-424 [facility] Comment on above: Performed By: #### 5 7021-8 #### [address] [place], [place] RBC (Bld) [#/Vol] 4.33 million/mcL Normal 3.80-5.10 [facility] Comment on above: Performed By: #### 5 7021-8 #### [address] [place], [place] WBC (Bld) [#/Vol] 10.2 thou/mcL Normal 4.6-10.2 [facility] on above: Performed By: #### 5 7021-8 #### [address] [place], [place] Comprehensive Metabolic Pane kit 03-22-2019 Albumin [Mass/Vol] 4.2 g/dL Normal 3.5-4.8 [facility] Comment on above: Performed By: #### 1 4581-3, 23481-5, 61432-9, 29726-5v2, 92506-0, 82820-2 #### [address] [place], [place] ALP [Catalytic activity/Vol] 96 Units/L High 32-91 [facility] Comment on above: Performed By: #### 1 4581-3, 62811-5, 70008-8, 06073-8r3, 68893-6, 50811-8 #### [facility] [address] [place], [place] ALT [Catalytic activity/Vol] 25 Units/L Normal 14-63 [facility] Comment on above: Performed By: #### 1 4581-3, 48802-5, 05171-7, 67085-4b8, 28553-6, 56936-2 #### [facility] [address] [place], [place] Anion gap [Moles/Vol] 9.0 mmol/L Normal 6.0-18.0 [facility] Comment on above: Performed By: #### 1 4581-3, 18769-1, 95166-1, 40620-0p0, 56989-8, 16042-8 #### [facility] [address] [place], [place] AST [Catalytic activity/Vol] 24 Units/L Normal 15-41 [facility] Comment on above: Performed By: #### 1 4581-3, 44651-4, 37342-7, 60919-7u0, 46128-0, 72856-4 #### [facility] [address] [place], [place] Bilirubin [Mass/Vol] 0.5 mg/dL Normal 0.3-1.2 [facility] Comment on above: Performed By: #### 1 4581-3, 64279-7, 19215-6, 00716-2b4, 11645-9, 64309-1 #### [facility] [address] [place], [place] Calcium [Mass/Vol] 8.9 mg/dL Normal 8.9-10.3 [facility] Comment on above: Performed By: #### 1 4581-3, 71937-1, 73341-7, 73739-7q7, 62029-1, 13080-8 #### [facility] [address] [place], [place] Chloride [Moles/Vol] 107 mmol/L Normal 98-107 [facility] Comment on above: Performed By: #### 1 4581-3, 87719-8, 97949-8, 42066-6c4, 44978-7, 78928-7 #### [facility] [address] [place], [place] CO2 [Moles/Vol] 23 mmol/L Normal 22-32 [facility] Comment on above: Performed By: #### 1 4581-3, 99409-1, 64413-8, 75794-4c0, 18515-4, 69995-3 #### [facility] [address] [place], [place] Creatinine [Mass/Vol] 0.68 mg/dL Normal 0.60-1.30 [facility] Comment on above: Performed By: #### 1 4581-3, 74965-1, 38031-0, 98410-1q5, 83962-7, 63132-0 #### [facility] [address] [place], [place] Glucose [Mass/Vol] 90 mg/dL Normal 70-99 [facility] Comment on above: Result Comment: U pdated ADA Reference Range A normal fasting glucose concentration is less than 100 mg/dL. An impaired fasting glucose concentration is 100-125 mg/dL. A provisional diagnosis of diabetes mellitus can be made when a fasting glucose concentration is greater than 125 mg/dL. Performed By: #### 1 4581-3, 03602-7, 38966-1, 69031-7b6, 39465-0, 68682-5 #### [facility] [address] [place], [place] Potassium [Moles/Vol] 3.4 mmol/L Low 3.6-5.1 [facility] Comment on above: Performed By: #### 1 4581-3, 85684-6, 83197-3, 74314-3g6, 48732-2, 72198-0 #### [facility] [address] [place], [place] Protein [Mass/Vol] 7.4 g/dL Normal 6.1-7.9 [facility] Comment on above: Performed By: #### 1 4581-3, 83637-0, 20880-4, 32958-1t3, 79508-4, 47377-5 #### [facility] [address] [place], [place] Sodium [Moles/Vol] 139 mmol/L Normal 136-145 [facility] Comment on above: Performed By: #### 1 4581-3, 76118-7, 37138-8, 28908-8v0, 22443-3, 13466-9 #### [facility] [address] [place], [place] Urea nitrogen (BldV) [Mass/Vol] 17 mg/dL Normal 8-20 [facility] Comment on above: Performed By: #### 1 4581-3, 44543-4, 03697-3, 51632-6l8, 64855-2, 16516-9 #### [facility] [address] [place], [place] Drug Abuse Screen 8 Urineon 03-22-2019 Barbiturates Screen Ql (U) Negative Normal [facility] Comment on above: Performed By: #### 1 6-1 #### [facility] [address] [place], [place] Amphetamines Ql (U) Positive Abnormal [facility] Comment on above: Result Comment: Conf irmatory testing available upon request. Performed By: #### 1 2286-1 #### [address] Benzodiazepines cutoff Screen (U) [Mass/Vol] Negative Normal [facility] Comment on above: Performed By: #### 1 2285-1 #### [address] Cocaine Ql (U) Positive Abnormal [facility] Comment on above: Result Comment: Conf irmatory testing available upon request. Performed By: #### 1 2286-1 #### [facility] [address] [place] [address] Interpretation and review of laboratory results Negative Normal [facility] Comment on above: Performed By: #### 1 2286-1 #### [facility] [address] [place], [place] Methadone Screen Ql (U) Negative Normal NEGATIVE-N EGATIVE [facility] Comment on above: Performed By: #### 1 2286-1 #### [facility] [address] [place], [place] Opiates Screen Ql (U) Negative Normal [facility] Comment on above: Result Comment: INTE RPRETATION [...] ONLY. Performed By: #### 1 2286-1 #### [address] Tetrahydrocannabinol Screen Ql (U) Positive Abnormal [facility] Comment on above: Result Comment: Conf irmatory testing available upon request. Performed By: #### 1 2286-1 #### [address] ED Pat Eduon 03-22-2019 ED Pat Edu [facility] [address] [place] [address] Emergency Department Discharge Instructions JENNIFER ENGLE [...] [facility] [facility] Name JENNIFER ENGLE MRN (COL)-[id number] PLEASE READ THE FOLLOWING REGARDING YOUR MEDICATIONS [...] doses are changed, or new medications (including junn-ytu-ecubvtg products) are added. If you have any [...] UNTIL YOU TALK TO YOUR DOCTOR None [address] [address] Emergency Department Discharge Instructions Name: JENNIFER ENGLE Current Date: 03/22/2019 19:32:22 : 1995 Primary Physician: Physician, No PCP We would like to thank you for choosing [facility] for your emergency medical needs. We examined [...] health of those around you. [facility] offers many resources to help with smoking cessation. Call the [place] Tobacco Quit Line at 6-575-NNWV-NOW ( ). High blood pressure: Your screening [...] deadly infections. Discuss this with your child's junior analyst, or Public Health Department. Your family practice doctor can determine if you need pneumonia or flu vaccine. The [facility] Department can be reached at . Substance Abuse Program: Concerns with addiction to alcohol, benzodiazepines (Ativan or Xanax) and Opiates (Heroin, Percocet, OxyContin, Methadone or Fentanyl)? [facility] offers an inpatient Substance Abuse Program to help treat the symptoms associated with medical detoxification of addictive substances. The new program offers care for non- adults (18 and older) looking to break the chain to addictive chemicals. The Substance Abuse Program is a voluntary inpatient admission and it starts with a pre-screening phone call to a geriatric social work professor. During the call, goals and objectives for recovery and how the patient will transition to outpatient care will be established. Please call [phone] to get help today. Domestic Violence: If you are a victim of domestic violence (physical, verbal, or emotional), you are not alone. Discuss this with your physician or a friend and call the [place] Domestic Violence Hotline or [place] Domestic Violence Hotline for assistance and support. [...] physician, call the Physician Referral Line at [phone] 830-UWNY ([phone]). Suicide Hotline: Your mental and emotional well-being is important. If you are in a mental health crisis or are having thoughts of suicide, please call the nationwide suicide hotline, anytime day or night, at 3-553-835-KFYV (8277). Community Boom Man: You may be contacted by your local fire department for a follow up visit from a community galley hand. The community galley hand can help with a home safety check; follow up care, and general home care management. Pharmacy Information: Below is a list of 24 hour pharmacies that we are aware of. We suggest that you call the specific pharmacy for their hours before traveling to a location. Hours may vary on holidays. [facility] [place] [address] [place], [place] [address] [phone] [place], [place] [address] [phone] [address] [place], [place] [address] [phone] [address], [place] [phone] [address], [place] [phone] [id number] [phone] [place] [address] [phone] Take all medications as directed. If you need prescription assistance, contact the following agencies: ?? Partnership for Prescription Assistance at or www.pparx.org ?? [place] at or www.AetherPalbestrx.org ?? www.[employer] is a site with many valuable coupons [...] Date Time Provider Signature Normal [facility] GFRaaon 03-22-2019 GFR/1.73 sq M predicted among blacks MDRD (S/P/Bld) [Vol rate/Area] mL/min/{1.73_m2} [facility] Comment on above: Result Comment: The MDRD equation has not been validated for those over 70 years, women, patients with serious co-morbid conditions, or with extremes of body size, muscle mass of nutritional status. Performed By: #### 1 4581-3, 25539-4, 09071-3, 00372-3l7, 19839-3, 78931-8 #### [address]ichel[address] GFRbbon 03-22-2019 GFR/1.73 sq M predicted among non-blacks MDRD (S/P/Bld) [Vol rate/Area] mL/min/{1.73_m2} [facility] Comment on above: Performed By: #### 1 4581-3, 79732-6, 55689-9, 89882-1v3, 21903-9, 37667-0 #### [address]JUAN[address] Test Urineon 03-22 HCG ( test) Ql (U) Negative [facility] Comment on above: Performed By: #### 2 106-3 #### [facility], [address] [place] [address] Salicylate Levelon 9 Salicylates [Mass/Vol] mg/dL Normal 2.8-30.0 Mo [facility] Comment on above: Performed By: #### 1 4581-3, 39413-9, 94116-6, 79753-4z7, 25121-5, 01577-0 #### [facility] [address] [place], [place] Medication Managementon 100 Medication Management [id number]#1.00OTGTIF F Normal [facility] ED Clinical Summaryon 2017 ED Clinical Summary [facility] - Emergency [address] [place], [place] [id number] ed Clinical SummaryPERSON INFORMATIONName: JENNIFER ENGLE Age: 22 Years Sex: FEMALEDOB: [birth year] MRN: Acct#:Visit Reason: Dental pain; Dental pain; DENTAL PAIN Arrival: 04/11/18 20:21:00 Discharge: 04/11/18 20:55:00LOS: 000 00:34 Check In: 04/11/18 20:21:00 Checkout:04/11/18 20:55:00Address:[address] [facility] [facility] [address]JJG: TAI WATTS INFORMATIONProvider Role Assigned UnassignedAlistair Max [...] 04/11/18 20:29:00.Dental caries, dental painHistory of Present Iqxkwed60-xpnz-tbr white female presents to the emergency room [...] her poor dental state..Impression and PlanDiagnosisDental caries (RSG63-AC K02.9, Discharge, Medical)Pain, dental (ILW88-RE K08.89, Discharge, Medical)PlanCondition: Improved, Stable.Disposition: Discharged: to home.Prescriptions: Launch prescriptionsPharmacy:tra MADol 50 mg oral tablet (Prescribe): 50 mg = 1 tab(s), PO, q4hr, PRN: as needed for pain, 12 tab(s), 0 Refill(s)amoxicillin 500 mg oral capsule (Prescribe): 1,000 mg = 2 cap(s), PO, BID, 40 cap(s), 0 Refill(s).Patient was given the following educational materials: Dental Pain, Prwf-go-Qgaz, Dental Caries, Adult, Hyqi-fm-Fnqc, Dental Caries, Adult, Hmjb-by-Eqcm, Dental Pain, Dqyh-bb-Vwcb.Follow up with: SOLOMON WATTS Within 3 to 5 days.Counseled: Patient, Regarding diagnosis, Regarding treatment plan, Regarding prescription, Patient indicated understanding of instructions.DISCHARGE INFORMATION:Discharge Disposition: HomeDischarge Location: HomePATIENT EDUCATION INFORMATIONInstructions: Dental Caries, Adult, Vnfs-bv-Zfsk; Dental Pain, Igsv-sw-MbubRpiiqk-Up:[facility]: Address: When:SOLOMON WATTS [address] [place] [address] [facility] () Within 3 to 5 daysDIAGNOSIS:Dental caries; Dental pain; Pain, dentalPatient Understands: Yes - Patient/family/caregiver verbalizes understanding of instructions givenComment: [facility] ED Note - Physicianon 2017 ED Note - Physician Patient: DOMINIC ENGLE : 22 years Sex: FEMALE : [birth year]Associated Diagnoses: Dental caries; Pain, dentalAuthor: Alistair Max MDBasipramod InformationTime seen: Date & time 04/11/18 20:29:00.Dental caries, dental painHistory of Present Aqkitwg83-dryd-quv white female presents to the emergency room [...] her poor dental state..Impression and PlanDiagnosisDental caries (YEW18-EM K02.9, Discharge, Medical)Pain, dental (ECX09-XV K08.89, Discharge, Medical)PlanCondition: Improved, Stable.Disposition: Discharged: to home.Prescriptions: Launch prescriptionsPharmacy:tra MADol 50 mg oral tablet (Prescribe): 50 mg = 1 tab(s), PO, q4hr, PRN: as needed for pain, 12 tab(s), 0 Refill(s)amoxicillin 500 mg oral capsule (Prescribe): 1,000 mg = 2 cap(s), PO, BID, 40 cap(s), 0 Refill(s).Patient was given the following educational materials: Dental Pain, Xcac-hj-Jtaf, Dental Caries, Adult, Vich-wt-Hnez, Dental Caries, Adult, Ofbr-tx-Ocyo, Dental Pain, Jboc-cd-Sedk.Follow up with: SOLOMON WATTS Within 3 to 5 days.Counseled: Patient, Regarding diagnosis, Regarding treatment plan, Regarding prescription, Patient indicated understanding of instructions.[Cristianoa diana Signed on: 04/11/2018 20:42 EDT] Alistair Salomon MD[Verified on: 04/11/2018 20:42 EDT] Alistair Salomon MD [facility] ED Patient Education Noteon 04-11-2018 ED Patient [...] mouth and teeth. This keeps them healthy.? [place] your teeth 2 times a day. Use toothpaste with fluoride in it.? Floss your teeth once a day.? If your dentist prescribed an antibiotic medicine to treat an infection, take it as told. Do not stop taking the antibiotic even if your condition gets better.? Keep all follow-up visits as told by your dentist. This is important. This includes all cleanings.Preventing dental caries? [place] your teeth every morning and night. Use [...] Reviewed: 03/17/2017[employer] Patient Education ? 2017 [employer].Dental PainDental pain may be caused by many [...] Reviewed: 06/27/2015[employer] Patient Education ? 2018 [employer]. Normal [facility] ED Patient Summaryon 018 ED Patient Summary [facility] - Emergency [address] [id number] PATIENT DISCHARGE INSTRUCTIONSPatient InformationName: JENNIFER ENGLE Age: 22 YearsDate of : [birth year]MRN: [id number] For Visit: Dental pain; Dental pain; DENTAL PAINArrival Time: 04/11/18 20:21:00Phone: Primary Care Physician: Maryam WATTS Physician: Alistair Max MDComment:Visit Diagnosis:Diagnoses This Visit Dental caries (K02.9) Dental pain (K08.8) Dental pain ([id number]) Dental pain ([id number]) Pain, dental (K08.89)If you received any narcotics, [...] or sign any legal documentsWith: Address: When:[place] [address] Business (1) Within 3 to 5 daysMedication Information:The exam and treatment you received today in the [facility] Department were for an urgent problem and are not intended as complete care. It is important for you to follow up with a doctor, nurse practitioner, or physician?s ward assistant for ongoing care. If your symptoms [...] number so we can reach you if necessary.[facility] Emergency Department has provided you with a complete list of medications post discharge. Please inform your atv mechanic/provider of your visit and for further instruction [...] mouth and teeth. This keeps them healthy.? [place] your teeth 2 times a day. Use toothpaste with fluoride in it.? Floss your teeth once a day.? If your dentist prescribed an antibiotic medicine to treat an infection, take it as told. Do not stop taking the antibiotic even if your condition gets better.? Keep all follow-up visits as told by your dentist. This is important. This includes all cleanings.Preventing dental caries? [place] your teeth every morning and night. Use [...] Reviewed: 03/17/2017[employer] Patient Education ? 2017 [employer]Dental PainDental pain may be caused by [...] Reviewed: 06/27/2015[employer] Patient Education ? 2018 [employer]. Viruses or BacteriaWhat?s got you sick?Antibiotics only [...] Answerwww.cdc.gov/getsmar t GET SMART Know When Antibiotics Jazmin.[facility] of Health and Human ServicesToledo Hospitalers for Disease Control and Prevention March 2014 [facility] Vital Signs Date Time Vital Sign Value Performing Clinician Facility 05-19-2024 09:42-0500 Body mass index (BMI) [Ratio] 35.02 kg/m2 Kenia Perez [employer]UTION PROF[employer] Work Phone: [facility] 05-19-2024 09:42-0500 Body weight 98.43 kg Kenia Menaoll [employer]UTION PROFESSIONAL Work Phone: [facility] 05-19-2024 09:42-0500 Diastolic blood pressure 74 mm[Hg] Kenia Perez [employer]UTION PROFESSIONAL Work Phone: [facility] 05-19-2024 09:42-0500 Systolic blood pressure 128 mm[Hg] Kenia Perez SOLUTION PROFESSIONAL Work Phone: [facility] 03-19-2024 00:22-0400 Diastolic blood pressure 81 mm[Hg] [facility] 03-19-2024 00:22-0400 Heart rate 97 /min [facility] 03-19-2024 00:22-0400 Respiratory rate 18 /min [facility] 03-19-2024 00:22-0400 SaO2% (BldA) [Mass fraction] 98 % [facility] 03-19-2024 00:22-0400 Systolic blood pressure 113 mm[Hg] [facility] 03-18-2024 21:56-0400 Body temperature 98.2 [degF] [facility] 03-18-2024 21:54-0400 Body height 167.64 cm [facility] 03-18-2024 21:54-0400 Body weight 97.52 kg [facility] 03-05-2024 12:39-0400 Body height 167.64 cm [facility] 03-05-2024 12:39-0400 Body mass index (BMI) [Ratio] 37.1 kg/m2 [facility] 03-05-2024 12:39-0400 Body temperature 97.6 [degF] [facility] 03-05-2024 12:39-0400 Body weight 104.32 kg [facility] 03-05-2024 12:39-0400 Diastolic blood pressure 84 mm[Hg] [facility] 03-05-2024 12:39-0400 Heart rate 90 /min [facility] 03-05-2024 12:39-0400 Respiratory rate 18 /min [facility] 03-05-2024 12:39-0400 SaO2% (BldA) [Mass fraction] 99 % [facility] 03-05-2024 12:39-0400 Systolic blood pressure 118 mm[Hg] [facility] 05-07-2023 13:15-0400 Body height 167.64 cm Key Patel Other [facility] Other 05-07-2023 13:15-0400 Body mass index (BMI) [Ratio] 37.54 kg/m2 Key Patel Other [facility] Other 05-07-2023 13:15-0400 Body temperature 97.8 [degF] Key Patel Other [facility] Other 05-07-2023 13:15-0400 Body weight 105.51 kg Key Patel Other [facility] Other 05-07-2023 13:15-0400 Respiratory rate 18 /min Key Patel Other [facility] [facility] Other 05-07-2023 13:15-0400 SaO2% (BldA) [Mass fraction] 98 % Key Patel Other [facility] Other 11-08-2022 13:50-0400 Body height 167.64 cm Chase Saldana Other [facility] Other 11-08-2022 13:50-0400 Body mass index (BMI) [Ratio] 35.51 kg/m2 Chase Saldana Other [facility] Other 11-08-2022 13:50-0400 Body weight 99.79 kg Chase Saldana Other [facility] Other 04-26-2022 11:55-0400 Body height 167.64 cm Autumn Marley Other [facility] Other 04-26-2022 11:55-0400 Body mass index (BMI) [Ratio] 35.02 kg/m2 Autumn Marley Other [facility] Other 04-26-2022 11:55-0400 Body temperature 97.7 [degF] Autumn Marley Other [facility] Other 04-26-2022 11:55-0400 Body weight 98.43 kg Autumn Marley Other [facility] Other 04-26-2022 11:55-0400 Diastolic blood pressure 82 mm[Hg] Autumn Marley Other [facility] [facility] Other 04-26-2022 11:55-0400 Respiratory rate 18 /min Autumn Marley Other [facility] [facility] Other 04-26-2022 11:55-0400 SaO2% (BldA) [Mass fraction] 98 % Autumn Marley Other [facility] Other 04-26-2022 11:55-0400 Systolic blood pressure 122 mm[Hg] Autumn Marley Other [facility] [facility] Other 04-23-2022 10:50-0400 Body height 167.64 cm Autumn Marley Other [facility] Other 04-23-2022 10:50-0400 Body mass index (BMI) [Ratio] 33.89 kg/m2 Autumn Marley Other [facility] [facility] Other 04-23-2022 10:50-0400 Body temperature 97.8 [degF] Autumn Marley Other [facility] [facility] Other 04-23-2022 10:50-0400 Body weight 95.26 kg Autumn Marley Other [facility] Other 04-23-2022 10:50-0400 Respiratory rate 18 /min Autumn Marley Other [facility] [facility] Other 04-23-2022 10:50-0400 SaO2% (BldA) [Mass fraction] 98 % Autumn Marley Other [facility] Other 03-27-2022 10:15-0400 Body height 167.64 cm Deb Simon Other [facility] [facility] Other 03-27-2022 10:15-0400 Body mass index (BMI) [Ratio] 34.38 kg/m2 Deb Alfred Other [facility] Other 03-27-2022 10:15-0400 Body temperature 97.4 [degF] Deb Simon Other [facility] [facility] Other 03-27-2022 10:15-0400 Body weight 96.62 kg Deb Simon Other [facility] Other 03-27-2022 10:15-0400 Respiratory rate 18 /min Deb Simon Other [facility] [facility] Other 03-27-2022 10:15-0400 SaO2% (BldA) [Mass fraction] 96 % Deb Simon Other [facility] [facility] Other 04-05-2021 16:10-0400 Body height 167.64 cm Lucinda Hectormond Other [facility] [facility] Other 04-05-2021 16:10-0400 Body mass index (BMI) [Ratio] 33.25 kg/m2 Lucinda Naomi Other [facility] Other 04-05-2021 16:10-0400 Body temperature 97.3 [degF] Lucinda Naomi Other [facility] Other 04-05-2021 16:10-0400 Body weight 93.44 kg Lucinda Naomi Other [facility] [facility] Other 04-05-2021 16:10-0400 Diastolic blood pressure 74 mm[Hg] Lucinda Naomi Other [facility] [facility] Other 04-05-2021 16:10-0400 Respiratory rate 18 /min Lucinda Salgado Other [facility] [facility] Other 04-05-2021 16:10-0400 SaO2% (BldA) [Mass fraction] 99 % Lucinda Salgado Other [facility] [facility] Other 04-05-2021 16:10-0400 Systolic blood pressure 111 mm[Hg] Lucinda Salgado Other [employer] Other Encounters Encounter Date Encounter Type Care Provider Facility Start: 05-19-2024 End: 05-19-2024 Bamboo flowsheet Kenia Perez SOLUTION PROFESSIONAL Work Phone: [employer] [facility] Start: 05-19-2024 End: 05-19-2024 Bamboo flowsheet Kenia Perez SOLUTION PROFESSIONAL Work Phone: [facility] [facility] Start: 05-19-2024 End: 05-19-2024 Office outpatient visit 25 minutes Kenia Perez [employer]UTION PROFESSIONAL Work Phone: [employer] [facility] Comment on above: Seizures (CMS/HCC) ( Primary Dx); Mood disorder (CMS/HCC); Chronic migraine without aura without status migrainosus, not intractable (CMS/HCC); Chronic bilateral low back pain, unspecified whether sciatica present; Paresthesia of both lower extremities; Fatty infiltration of bone marrow Start: 05-19-2024 End: 05-19-2024 ambulatory KENIA PEREZ Not Available Start: 05-13-2024 End: 05-13-2024 Emergency department patient visit [facility] Start: 05-11-2024 End: 05-11-2024 Patient encounter procedure [facility] [place] Work Phone: Start: 05-11-2024 End: 05-11-2024 ambulatory NON STAFF [facility] Work Phone: Start: 05-08-2024 ambulatory Gerald Howard acility:[facility] Start: 2024 End: 2024 ambulatory NEVIN MAYBERRY [facility] Start: 04-30-2024 End: 04-30-2024 Emergency department patient visit [facility] Start: 04-28-2024 Registered Recurring [facility] Start: 04-28-2024 End: 04-28-2024 ambulatory [facility] Start: 04-14-2024 ambulatory KENIA PEREZ [facility] Start: 04-01-2024 End: 04-01-2024 ambulatory KENIA PEREZ Not Available Start: 03-18-2024 End: 03-19-2024 Emergency department patient visit [facility] Work Phone: Start: 03-18-2024 End: 03-18-2024 ambulatory NON STAFF [facility] Work Phone: Start: 03-18-2024 End: 03-18-2024 Patient encounter procedure [facility] [place] Work Phone: Start: 03-10-2024 ambulatory KENIA PEREZ [facility] Start: 03-06-2024 Registered Recurring [facility] Start: 03-05-2024 End: 03-05-2024 ambulatory NON STAFF [facility] Work Phone: Start: 03-05-2024 End: 03-05-2024 Patient encounter procedure [facility] Work Phone: Start: 03-05-2024 End: 03-05-2024 ambulatory KAMLA DAVID Not Available Start: 02-27-2024 End: 02-27-2024 ambulatory KENIA PEREZ Not Available Start: 02-13-2024 End: 02-14-2024 Emergency department patient visit HALEIGH CHAVEZ [facility] Start: 02-12-2024 End: 02-12-2024 ambulatory SHAIKH LEONARDO Not Available Start: 02-07-2024 Registered Recurring [facility] Start: 02-03-2024 End: 02-03-2024 ambulatory SHAIKH LEONARDO Not Available Start: 01-30-2024 End: 01-30-2024 ambulatory KENIA PEREZ Not Available Start: 01-09-2024 End: 01-09-2024 ambulatory KENIA PEREZ Not Available Start: 01-02-2024 End: 01-02-2024 ambulatory MARY W WIGGINS Not Available Start: 12-28-2023 End: 12-29-2023 Emergency department patient visit [facility] Start: 12-16-2023 End: 12-16-2023 ambulatory SHAIKH LEONARDO Not Available Start: 12-11-2023 End: 12-11-2023 Emergency department patient visit [facility] Start: 12-10-2023 End: 12-10-2023 ambulatory MICHAELER ROYA Not Available Start: 12-05-2023 End: 12-05-2023 ambulatory CHRISTOPHER ROYA Not Available Start: 12-05-2023 End: 12-05-2023 ambulatory MARY W WIGGINS Not Available Start: 12-02-2023 End: 12-02-2023 ambulatory PALMA LIU Not Available Start: 11-26-2023 End: 11-26-2023 ambulatory SHAIKH LEONARDO Not Available Start: 11-25-2023 End: 11-26-2023 Emergency department patient visit [facility] Start: 11-25-2023 End: 11-27-2023 Emergency department patient visit [facility] Start: 11-21-2023 End: 11-21-2023 ambulatory MARY W WIGGINS Not Available Start: 11-16-2023 End: 11-16-2023 Emergency department patient visit [facility] Start: 10-30-2023 End: 10-30-2023 ambulatory JOHN HADDAD Not Available Start: 10-15-2023 End: 10-15-2023 ambulatory SHAIKH LEONARDO Not Available Start: 10-09-2023 End: 10-09-2023 Emergency department patient visit SHAIKH LEONARDO [facility] Start: 09-21-2023 End: 09-22-2023 Emergency department patient visit [facility] Start: 09-21-2023 End: 09-22-2023 Emergency department patient visit MARTELL [facility] Start: 08-27-2023 End: 08-27-2023 Emergency department patient visit SHAIKH LEONARDO [facility] Start: 07-09-2023 End: 07-09-2023 Emergency department patient visit SHAIKH LEONARDO [facility] Start: 05-07-2023 End: 05-07-2023 ambulatory Key Patel Other [facility] Other Start: 05-07-2023 Office outpatient vi sit 15 minutes Key Patel [facility] Start: 02-19-2023 ambulatory SHAIKH LEONARDO Facility: [facility] Start: 11-08-2022 Office outpatient vi sit 15 minutes Chase Saldana [facility] Start: 11-08-2022 End: 11-08-2022 ambulatory Chase Saldana Other [facility] Other Start: 11-08-2022 End: 11-08-2022 Departed Referred PA-C Chase Saldana Work Phone: [facility] [place] Work Phone: Start: 04-26-2022 End: 04-26-2022 ambulatory Autumn Marley Other [facility] [facility] Other Start: 04-26-2022 Office outpatient vi sit 15 minutes Autumn Marley [facility] Start: 04-23-2022 End: 04-23-2022 ambulatory Autumn Marley Other [facility] [facility] Other Start: 04-23-2022 Office outpatient vi sit 15 minutes Autumn Marley [facility] Start: 04-03-2022 End: 04-03-2022 ambulatory COLÓN H FAWWAD Facility:[facility] Start: 03-27-2022 End: 03-27-2022 ambulatory Deb Simon Other [facility] [facility] Other Start: 03-27-2022 Office outpatient vi sit 25 minutes Deb Simon [facility] [...] H FAWWAD Facility:[facility] Start: 04-05-2021 Office outpatient vi sit 15 minutes Lucinda Salgado [facility] Start: 04-12-2018 End: 04-12-2018 Patient encounter [facility] Facility:[facility] Start: 04-11-2018 End: 04-12-2018 Emergency department patient visit Alistair [facility] Facility:[facility] Procedures Date Procedure Procedure Detail Performing Clinician Start: 05-11-2024 MR lumbar spine wo con Start: 05-11-2024 MRI of head Plan of Treatment Date Care Activity Detail Author Start: 12-09-2024 End: 12-09-2024 Patient encounter procedure 12/09/2024 2:00 PM EDT Office Visit [facility] [address] [address] Palma Liu PA [address] [place] [address] [facility] Start: 07-21-2024 End: 07-21-2024 Patient encounter procedure 07/21/2024 11:00 AM EST Office Visit [facility] [place] [facility] [address] [place] [address] Kenia Perez NP [address] [place] [id number] [facility] [place] [facility] Start: 05-19-2024 End: 05-19-2024 Patient encounter procedure 05/19/2024 9:40 AM EST Office Visit [facility] [place] [facility] [address] [place] [address] Kenia Perez NP [address] [place] [id number] Seizures (CMS/HCC) (Primary Dx); Mood disorder (CMS/HCC); Episodic migraine (CMS/HCC); Chronic bilateral low back pain, unspecified whether sciatica present; Paresthesia of both lower extremities; Fatty infiltration of bone marrow [facility] [place] [facility] Comment on above: Seizures (CMS/HCC) ( Primary Dx); Mood disorder (CMS/HCC); Episodic migraine (CMS/HCC); Chronic bilateral low back pain, unspecified whether sciatica present; Paresthesia of both lower extremities; Fatty infiltration of bone marrow Start: 03-15-2024 Influenza vaccination Influenza Vacc ine (#1) [facility] Start: 2023 Screening for malign ant neoplasm of cervix [facility] Start: 11-08-2022 Bacteria identified in Urine by Culture Urine Culture [facility] Start: 2014 Screening for malign ant neoplasm of cervix Pap Smear [facility] Patient Education Panic Attack ED [facility] Work Phone: Patient referral [facility] Work Phone: Immunizations Immunization Date Immunization Notes Care Provider Fa khurram 10-25-2023 influenza, injectabl e, quadrivalent, preservative free Kenia Menaoll SOLUTION PROFESSIONAL Work Phone: [facility] 10-25-2023 influenza virus vaccine, unspecified formulation Kenia Perez SOLUTION PROFESSIONAL Work Phone: [facility] 04-23-2021 influenza, seasonal, injectable Kenia Perez SOLUTION PROFESSIONAL Work Phone: [facility] 03-28-2021 Moderna SARS-CoV-2 Vaccination Kenia Perez SOLUTION PROFESSIONAL Work Phone: [facility] 01-26-2020 Toradol per 15 mg Lucinda Dym ond Other [facility] Other 09-08-2019 Rocephin 500 mg Lucinda Dymon d Other [facility] Other 06-10-2018 Influenza, injectabl e, Madin Camila Canine Kidney, preservative free, quadrivalent Kenia Perez SOLUTION PROFESSIONAL Work Phone: [facility] 12-11-2011 human papilloma viru s vaccine, quadrivalent Kenia Perez SOLUTION PROFESSIONAL Work Phone: [facility] 11-09-2011 human papilloma viru s vaccine, quadrivalent Kenia Perez SOLUTION PROFESSIONAL Work Phone: [facility] Payers Date Payer Category Payer Medicaid [employer] [place] [id number] 2022 Medicaid [id number] 2018 Unknown 1993 Unknown [id number] 2.16840.1.621450.3.579.2.593 1993 Unknown [id number] 2.16840.1.266334.3.579.2.593 1993 Unknown [id number] 2.16.840.1.205383.3.579.2.593 1993 Unknown [id number] 2.16.840.1.330716.3.579.2.593 1993 Unknown [id number] 2.16.840.1.865135.3.579.2.593 1993 Unknown [id number] 2.16.840.1.416729.3.579.2.593 1993 Unknown [id number] 2.16.840.1.323925.3.579.2.593 1993 Unknown [id number] 2.16.840.1.347010.3.579.2.593 1993 Unknown [id number] 2.16.840.1.567283.3.579.2.593 1993 Unknown [id number] 2.16.840.1.819273.3.579.2.593 1993 Unknown [id number] 2.16.840.1.899204.3.579.2.593 1993 Unknown [id number] 2.16.840.1.423124.3.579.2.593 1993 Unknown [id number] 2.16.840.1.510468.3.579.2.593 1993 Unknown [id number] 2.16.840.1.290180.3.579.2.593 1993 Unknown [id number] 2.16.840.1.058291.3.579.2.1286 1993 Unknown [id number] 2.16.840.1.610700.3.579.2.1286 1993 Unknown [id number] 2.16840.1.059797.3.579.2.1286 1993 Unknown [id number] 2.840.1.234665.3.579.2.1286 1993 Unknown [id number] 2.840.1.517874.3.579.2.1286 1993 Unknown [id number] 2.840.1.660213.3.579.2.1286 1993 Unknown [id number] 2.16840.1.587113.3.579.2.1286 1993 Unknown [id number] 2.840.1.498646.3.579.2.1286 1993 Unknown [id number] 2.16840.1.942942.3.579.2.1286 1993 Unknown [id number] 2.16840.1.382103.3.579.2.128 1993 Unknown [id number] 2.16840.1.987715.3.579.2.1286 1993 Unknown [id number] 2.16840.1.573707.3.579.2.1286 1993 Unknown [id number] 2.16840.1.285148.3.579.2.1286 1993 Unknown [id number] 2.16.840.1.927088.3.579.2.1286 1993 Unknown [id number] 2.16.840.1.170359.3.579.2.1286 1993 Unknown [id number] 2.16.840.1.783548.3.579.2.1286 1993 Unknown [id number] 2.16.840.1.701785.3.579.2.1286 1993 Unknown [id number] 2.16.840.1.183422.3.579.2.1286 1993 Unknown [id number] 2.16.840.1.636015.3.579.2.1286 1993 Unknown [id number]

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
[2024-05-20] MEDS: KETOROLAC TROMETHAMINE 30 MG/ML VIAL 15 MG IM (23:26)
[2024-05-20] MEDS: HYDROCODONE/ACET 5-325 MG TABLET 1 TAB PO (23:26)
== END 2024-05-20 23:45 | disposition home or self-care (01) ==
PROVIDERS: Emergency Provider Emergency Medicine
DX: K02.9 Dental caries, unspecified (principal); Z87.891 Personal history of nicotine dependence
CPT/HCPCS: 96372; 99284; J1885

== ENCOUNTER 2024-06-03 22:41 | Emergency (ER) | payer MEDICAID, SELFPAY ==
--- OUTSIDE RECORDS SUMMARY | 2024-06-03 22:46 | XMS_ITS | CCD ---
Author Organization [facility] Care Team Providers Care Lpn Name Role Phone Alistair Max Unavailable Unavailable [...] PATRICK Goodson Attending Unavailable SHRUTI, DR PATRICK Goosdon Admitting Unavailable FAWWAD, COLÓN H Primary Care [...] UnavailMD Gerald Del Castillo Attending Provider WILDA Washington-TANKAGE GRINDER-C Kenia Benjamin Attending Provider MD Estefani Alexander Jr Emergency Provider NON STAFF Primary Care Provider UnavailMD Gerald Del Castillo Attending Provider [phone] WILDA Washington-TANKAGE GRINDER-C Kenia Benjamin Attending Provider WILDA Wolff [employer] Primary Care Provider Korin VÁZQUEZ [facility] Primary Care Provider Frankie DO, Christbenedictoer Unavailable [phone] Felix MOLDER SWEEP, Kenia Unavailable SHAIKH LANGLEY Attending Unavailable JOHN HADDAD Attending Unavailable MARY WIGGINS Attending Unavailable SHAIKH LANGLEY Attending Unavailable PALMA GUY Attending Unavailable MARY WIGGINS Attending Unavailable KAMLA DAVID Attending Unavailable KAMLA DAVID Referring Unavailable SHAIKH LANGLEY Attending Unavailable MARY WIGGINS Attending Unavailable KENIA WASHINGTON Attending Unavailable KENIA WASHINGTNO Referring Unavailable SHAIKH LANGLEY Attending Unavailable KENIA WASHINGTON Attending Unavailable KAMLA DAVID Attending Unavailable KENIA WASHINGTON Attending Unavailable KENIA WASHINGTON Attending Unavailable Estefani Alexander Jr Admitting Unavailable Estefani Alexander Jr Attending Unavailable NON STAFF Primary Care Unavailable Kenia Washington [facility] Kenia Washington Admitting Unavailable NON STAFF Primary Care Unavailable Gerald Wagner Admitting Unavailab Gerald Lazo Attending Unavailab NEVIN Ramirez Attending Unavailable [facility] Referring Unavailable [facility] Primary Care Unavailable [facility]JD[facility] Primary Care Unavailable FAWWAD, [facility] Primary Care Unavailable MARTELL OTERO Attending Unavailable MARTELL OTERO Referring Unavailable FAWWAD, COLÓN Primary Care Unavailable MARTELL OTERO Attending Unavailable SHANNA MARTELL W Referring Unavailable FAWWAD, COLÓN Primary Care Unavailable MARTELL OTERO Attending Unavailable MARTELL OTERO Referring Unavailable FAWWAD, COLÓN Primary Care Unavailable FAWNJD, [facility] Primary Care Unavailable CHETAN HEBERT Attending Unavailable FAWWAD, COLÓN Primary Care Unavailable ALICE SHANE Attending Unavailable FAWWAD, COLÓN Primary Care Unavailable SCOTT, AHMAD Attending Unavailable SCOTT, AHMAD Attending Unavailable SCOTT, AHMAD Referring Unavailable FAWWAD, COLÓN Primary Care Unavailable FAWWAD, COLÓN Primary Care Unavailable ALICE SHANE Attending Unavailable FAWWAD, COLÓN Primary Care Unavailable YANIQUE GONZALES Attending Unavailable FAWWAD, COLÓN Primary Care Unavailable SCOTT, AHMAD Attending Unavailable SCOTT, AHMAD Attending Unavailable SCOTT, AHMAD Referring Unavailable FAWWAD, COLÓN Primary Care Unavailable FAWWAD, COLÓN Primary Care Unavailable WASHINGTON, KENIA Referring Unavailable FAWWAD, COLÓN Primary Care Unavailable WASHINGTON, KENIA Referring Unavailable FAWWAD, COLÓN Primary Care Unavailable SYED, BERNICE Referring Unavailable SYED, BERNICE Primary Care Unavailable SYED, BERNICE Primary Care Unavailable STAN CARTER Attending Unavailable NEVIN MAYBERRY Attending Unavailable SHAWANDAKARNA Ana Maria Referring Unavailable SYED, BERNICE Primary Care Unavailable SYED, BERNICE Primary Care Unavailable SANDY ROMERO Attending Unavailable SHAWANDA, NEVIN M Referring Unavailable SYED, BERNICE Primary Care Unavailable Allergies Allergy Classification Reported Allergen(s) Allergy Type Date of Onset Reaction(s) Facility (13 sources) ibuprofen; Translations: [ibuprofen] Drug Allergy 11-25-19 17 Nausea Only [facility] Repository (1 source) Latex; Translations: [Latex Allergy] Propensity to adverse reactions to drug (disorder) [facility] Repository (1 source) Sulfonamides (Antibiotic); Translations: [sulfa drugs] Propensity to adverse reactions to drug (disorder) [facility] Repository (10 sources) Lactase Drug Allergy 03-05-20 24 vomiting [facility] (13 sources) Latex; Translations: [LATEX] Drug allergy 08-24-19 19 anaphylaxis [facility] (10 sources) Sulfacetamide Drug Allergy 03-05-20 24 hives [facility] (2 sources) Lactose Drug Allergy [facility] Repository (2 sources) Latex Drug allergy (disorder) 12-30-19 13 [facility] Repository (2 sources) Penicillin Drug Allergy [facility] Repository (1 source) Propylthiouracil Drug Allergy [facility] Repository (2 sources) Sulfonamides (Antibiotic) Drug allergy (disorder) 12-30-19 13 [facility] Repository (8 sources) Sulfonamides (Antibiotic); Translations: [Sulfa (Sulfonamide Antibiotics)] Allergy to substance 11-25-19 17 [facility] (5 sources) Clindamycin; Translations: [CLINDAMYCIN] Drug Allergy 06-07-20 Hives [facility] (3 sources) Desvenlafaxine Drug Allergy 11-29-19 23 [facility] (3 sources) Escitalopram [facility] 09-21-[facility] (3 sources) gabapentin Drug Allergy 04-01-20 [facility] Work Phone: (5 sources) Lamotrigine; Translations: [LAMOTRIGINE] Propensity to adverse reactions 01-13-20 18 Swelling, Hives [facility] (3 sources) Latex Allergy to substance 08-24-19 19 Unknown, Anaphylaxis [facility] (4 sources) Penicillins; Translations: [PENICILLINS] Drug Intolerance 12-05-19 19 Rash [facility] (3 sources) Sulfonamides (Antibiotic) Drug Allergy 11-25-19 17 Unknown, Hives, Itching [facility] (3 sources) Verapamil Drug Allergy 04-01-20 [facility] (3 sources) Wound Dressing Adhesive Drug Intolerance 01-09-20 [facility] (1 source) Lactase Drug Allergy 03-18-20 [facility] (1 source) Latex Drug allergy (disorder) 03-18-20 [facility] (1 source) Sulfacetamide Drug Allergy 03-18-20 [facility] (2 sources) Adhesive agent; Translations: [ADHESIVE] Propensity to adverse reactions to drug (disorder) 01-09-20 [facility] Repository (2 sources) Desvenlafaxine; Translations: [DESVENLAFAXINE SUCCINATE] Drug Allergy 11-29-19 23 [facility] (2 sources) Escitalopram; Translations: [ESCITALOPRAM OXALATE] Drug Allergy 09-21-19 19 [facility] Repository (2 sources) natural latex rubber; Translations: [LATEX, NATURAL RUBBER] Propensity to adverse reactions to drug (disorder) 10-11-20 21 [facility] Repository Medications Current Medications Medication Drug Class(es) Dates Sig (Normalized) Sig (Original) acetaminophen 300 mg / butalbital 50 mg / caffeine 40 mg oral capsule (2 sources) Barbiturate, Central Nervous System Stimulant, Methylxanthine butalbital-acetam inophen-caffeine (Fioricet) 50-300-40 MG capsule Take 1 capsule by mouth Active [id number] 200 actuat albuterol 0.09 mg/actuat metered dose [...] Start: 01-07-2024 take 1 tablet by joy th twice daily as needed for anxiety ALPRAZolam [...] 1.5 mg/ml oral solution (2 sources) Uncompetitive R-kthwww-G-asparta te Receptor Antagonist, Sigma-1 Agonist [place] DM 7.5-7.5 MG /5ML 10 ml Orally [...] disintegrating oral tablet (2 sources) Start: 05-19-20 Rimegepant Sulfate (Nurtec) 75 MG tablet dispersible [...] 500 MG PO Four times daily 40 10 August 24, 2018 1:00am September 03, 2018 [...] paroxysmal anxiety]] Onset: 10-15-2023 03-05-2024 Chronic Asthma (9 sources) Unspecified asthma, uncomplicated; Translations: [Mild intermittent asthma] Onset: 10-18-2021 02-12-2024 Chronic Chronic obstructive pulmonary [...] 12-16-2023 12-16-2023 Chronic Epilepsy; convulsions (3 sources) Seizure; Translations: [Unspecified convulsions] Onset: 03-10-2024 05-19-2024 Episodic Essential hypertension (9 sources) Essential hypertension; Translations: [Essential (primary) hypertension] Onset: 12-16-2023 12-16-2023 Chronic Fluid and electrolyte disorders (5 sources) Hypokalemia; Translations: [HYPOKALEMIA] Onset: 10-24-2021 Episodic Genitourinary symptoms and ill-defined conditions (1 source) Dysuria Episodic Headache; including migraine (9 sources) Transformed migraine; Translations: [Chronic migraine with aura without status migrainosus, not intractable] Onset: 10-15-2023 10-15-2023 Chronic Headache; including migraine [...] 03-18-2024 Episodic Other aftercare (1 source) Other terminal carman (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 therapy; Translations: [OTH RESIDENTIAL CURRENT DRUG THERAPY] Onset: 03-23-2022 Episodic Other gastrointestinal disorders (4 sources) Constipation, unspecified; Translations: [CONSTIPATION UNSPECIFIED] Onset: 03-22-2022 Episodic Other hematologic conditions (2 sources) Bone marrow examination abnormal; Translations: [Other specified diseases of blood and blood-forming organs] 05-19-2024 Chronic Other lower respiratory disease (1 source) Chronic cough; Translations: [Chronic cough] Onset: 05-28-2024 Episodic Other nervous system disorders (3 sources) Difficulty in walking, not elsewhere classified; Translations: [DIFFICULTY IN WALKING NEC] Onset: 12-07-2021 Chronic Other nervous system disorders (1 source) Other chronic pain; Translations: [Other chronic pain] Onset: 03-10-2024 Chronic Other nervous system disorders (4 sources) Paresthesia of lower extremity; Translations: [Paresthesia of skin] 05-19-2024 Episodic Other nervous system disorders (1 source) Paresthesia [...] pain, unspecified] Onset: 03-10-2024 Unclassified (1 source) New Patient Onset: 05-28-2024 Unclassified (1 source) Rash Onset: 11-16-2023 Unclassified [...] Onset: 09-26-2021 Episodic Other lower respiratory disease (3 sources) Cough; Translations: [Acute cough] Onset: 11-26-2023 11-26-2023 Episodic Other lower respiratory disease (1 [...] Test Name Value Interpretation Reference Range Facility RESPIRATORY PANELon 05-28-20 24 ALTERNARIA ALTERNATA <0.10 Normal <0.10 [facility] Comment on above: Result Comment: Clas s 0: Normal Performed By: #### R AP ####[facility] ([id number])[address], [address], [place] [address] ASPERGILLUS FUMIGATUS <0.10 Normal <0.10 [facility] Comment on above: Result Comment: Clas s 0: Normal Performed By: #### R AP ####[facility] ([id number])[address], [address], [place] [address] BERMUDA GRASS <0.10 Normal <0.10 [facility] Comment on above: Result Comment: Clas s 0: Normal Performed By: #### R AP ####[facility] ([id number])[address], [address], [place] [address] BOX ELDER <0.10 Normal <0.10 [facility] Comment on above: Result Comment: Clas s 0: Normal Performed By: #### R AP ####[facility] ([id number])[address], [address], [place] [address] CAT DANDER <0.10 Normal <0.10 [facility] Comment on above: Result Comment: Clas s 0: Normal Performed By: #### R AP ####[facility] ([id number])[address], [address] [place] [address] CLADOSPORIUM HERB <0.10 Normal <0.10 [facility] Comment on above: Result Comment: Clas s 0: Normal Performed By: #### R AP ####[facility] ([id number])[address], [place] [address] COCKLEBUR <0.10 Normal <0.10 [facility] Comment on above: Result Comment: Clas s 0: Normal Performed By: #### R AP ####[facility] ([id number])[address], [address] [place] [address] COCKROACH <0.10 Normal <0.10 [facility] Comment on above: Result Comment: Clas s 0: Normal Performed By: #### R AP ####[facility] ([id number])[address], [place] [address] COMMON PIGWEED <0.10 Normal <0.10 [facility] Comment on above: Result Comment: Clas s 0: Normal Performed By: #### R AP ####[facility] ([id number])[address], [place] [address] COMMON RAGWEED <0.10 Normal <0.10 [facility] Comment on above: Result Comment: Clas s 0: Normal Performed By: #### R AP ####[facility] ([id number])[address], [place] [address] COMMON SILVER BIRCH <0.10 Normal <0.10 [facility] Comment on above: Result Comment: Clas s 0: Normal Performed By: #### R AP ####[facility] ([id number])[address], [address], [place] [address] COTTONWOOD <0.10 Normal <0.10 [facility] Comment on above: Result Comment: Clas s 0: Normal Performed By: #### R AP ####[facility] ([id number])[address], [address] [place] [address] DERMATOPH FARINAE <0.10 Normal <0.10 [facility] Comment on above: Result Comment: Clas s 0: Normal Performed By: #### R AP ####[facility] ([id number])[address], [address] [place] [address] DERMATOPH PTERONYSS <0.10 Normal <0.10 [facility] Comment on above: Result Comment: Clas s 0: Normal Performed By: #### R AP ####[facility] ([id number])[address], [address], [place] [address] DOG DANDER <0.10 Normal <0.10 [facility] Comment on above: Result Comment: Clas s 0: Normal Performed By: #### R AP ####[facility] ([id number])[address], [address] [place] [address] ELM <0.10 Normal <0.10 [facility] Comment on above: Result Comment: Clas s 0: Normal Performed By: #### R AP ####[facility] ([id number])[address], [address] [place] [address] G[place]SE[place] QTR <0.10 Normal <0.10 [facility] Comment on above: Result Comment: Clas s 0: Normal Performed By: #### R AP ####[facility] ([id number])[address], [address] [place] [address] IGE 13 IU/mL Normal 0-165 [facility] Comment on above: Performed By: #### R AP ####[facility] ([id number])[address], [address] [address] HEATHER GRASS <0.10 Normal <0.10 [facility] Comment on above: Result Comment: Clas s 0: Normal Performed By: #### R AP ####[facility] ([id number])[address], [address] [address] MAPLE LEAF SYCAMORE <0.10 Normal <0.10 [facility] Comment on above: Result Comment: Clas s 0: Normal Performed By: #### R AP ####[facility] ([id number])[address], [place] [address] ME[place]OW [place] TERRA <0.10 Normal <0.10 [facility] Comment on above: Result Comment: Clas s 0: Normal Performed By: #### R AP ####[facility] ([id number])[address] [place] [address] MOUNTAIN JUNIPER <0.10 Normal <0.10 [facility] Comment on above: Result Comment: Clas s 0: Normal Performed By: #### R AP ####[facility] ([id number])[address] [place] [address] MOUSE URINE PROTEINS <0.10 Normal <0.10 [facility] [place] Comment on above: Result Comment: Clas s 0: Normal Performed By: #### R AP ####[facility] ([id number])[address] [place] [address] MUGWORT <0.10 Normal <0.10 [facility] Comment on above: Result Comment: Clas s 0: Normal Performed By: #### R AP ####[facility] ([id number])[address], [address] [place] [address] MULBERRY TREE <0.10 Normal <0.10 [facility] Comment on above: Result Comment: Clas s 0: Normal Performed By: #### R AP ####[facility] ([id number])[address], [place] [address] NETTLE <0.10 Normal <0.10 [facility] Comment on above: Result Comment: Clas s 0: Normal Performed By: #### R AP ####[facility] ([id number])[address], [place] [address] OAK <0.10 Normal <0.10 [facility] Comment on above: Result Comment: Clas s 0: Normal Performed By: #### R AP ####[facility] ([id number])[address], [address], [place] [address] PECAN HICKORY TREE <0.10 Normal <0.10 [facility] Comment on above: Result Comment: Clas s 0: Normal Performed By: #### R AP ####[facility] ([id number])[address], [address] [place] [address] PENICILLIUM CHRYSOGENUM <0.10 Normal <0.10 [facility] Comment on above: Result Comment: Clas s 0: Normal Performed By: #### R AP ####[facility] ([id number])[address], [place] [address] ROUGH MARSHELDER <0.10 Normal <0.10 [facility] Comment on above: Result Comment: Clas s 0: Normal Performed By: #### R AP ####[facility] ([id number])[address], [place] [address] [place] KEVAN THISTLE <0.10 Normal <0.10 [facility] Comment on above: Result Comment: Clas s 0: Normal Performed By: #### R AP ####[facility] ([id number])[address], [address], [place] [address] SHEEP SORREL <0.10 Normal <0.10 [facility] Comment on above: Result Comment: Clas s 0: Normal Performed By: #### R AP ####[facility] ([id number])[address], [address], [place] [address] GUERO <0.10 Normal <0.10 [facility] Comment on above: Result Comment: Clas s 0: Normal Performed By: #### R AP ####[facility] ([id number])[address], [place] [address] WALNUT TREE POLLEN <0.10 Normal <0.10 [facility] Comment on above: Result Comment: Clas s 0: Normal Performed By: #### R AP ####[facility] ([id number])[address], [place] [address] WHITE WILLIAM <0.10 Normal <0.10 [facility] Comment on above: Result Comment: Clas s 0: Normal Performed By: #### R AP ####[facility] ([id number])[address], [address] [place] [address] MR head/brain wo/w conon MR head/brain wo/w con [facility] [place] [address] MRI Report Signed Patient: Jennifer Aguillon MR#: [id number] [birth year] : 1995 Acct:[id number] Age/Sex: 29 / F ADM Date: 05/11/24 Loc: MR Room: Type: [facility] Attending Dr: Kenia LIN Copies to: DELIA [...] M.D.05/11/2024 11:05 PM Dictation Location: [place] [address] Transcribed By: [facility] 05/11/242304 Dictated By: Juan Luis Baldwin DO 05/11/242301 Signed By: 05/11/242304 Normal [facility] MR lumbar spine wo conon MR lumbar spine wo con [facility] [place] [address] MRI Report Signed Patient: Jennifer Aguillon MR#: [id number] 8 : 1995 Acct:[id number] Age/Sex: 29 / F ADM Date: 05/11/24 Loc: Room: Type: [facility] Attending Dr: Kenia LIN Copies to: DELIA [...] M.D.05/11/2024 11:02 PM Dictation Location: [place] [address] Transcribed By: [facility] 05/11/242301 Dictated By: Juan Luis Baldwin DO 05/11/242256 Signed By: 05/11/242301 Normal [facility] XR CHEST 2 VWSon [...] Vincent MD on 04/28/2024 2:10 PM Normal [facility] ECG 12 lead ECGon 03-18-2024 ECG 12 lead ECG [facility] [place] [address] [place] [address] Electrocardiograph Report Signed Patient: Jennifer Aguillon MR#: [id number] 8 : 1995 Acct:[id number] Age/Sex: 28 / F ADM Date: 03/18/24 Loc: ER Room: Type: [facility] ER Attending Dr: Ordering Provider: Estefani Alexander [...] ECGs available Confirmed by ESTEFANI ALEXANDER MD ([id number]) on 03/20/2024 5:58:53 AM Referred By: Electronically Signed By: ESTEFANI ALEXANDER MD Transcribed By: MUS Signed By Estefani Alexander Jr, [place] [id number] Normal [facility] Influenza virus B Ag [Presen ce] in Upper respiratory specimen by Rapid immunoassayon 03-05-2024 FLUBV Ag IA.rapid Ql (Nph) Negative [facility] No Panel Informationon 03-05 Influenza Type A (Rapid) Negative [facility] POC SARS CoV-2 Antigen Negative [facility] Troponin I.cardiac High sens itivity method [Mass/Vol]on 02-14-2024 1 HOUR TROP I, HIGH SENSITIVITY 3 ng/L Normal <16 [facility] Comment on above: Performed By: #### 8 9579-7 ####[facility] ([id number])[address] [place] [address] CBC AND AUTO DIFFon 02-13-20 24 ABSOLUTE BASOPHIL 0.0 X10E9/L Normal 0.0-0.2 [facility] Comment on above: Performed By: #### 2 106-3 #### [facility] ([id number]) [address] [place] [address] ABSOLUTE NEUTROPHIL 7.5 X10E9/L High 1.5-6.6 [facility] [place] Comment on above: Performed By: #### 2 106-3 #### [facility] ([id number]) [address] [place] [address] Basophils/100 WBC (Bld) 0.3 % Normal [facility] Comment on above: Performed By: #### 2 106-3 #### [facility] ([id number]) [address] [place] [address] Eosinophils (Bld) [#/Vol] 0.1 10*3/uL Normal 0.0-0.4 [facility] Comment on above: Performed By: #### 2 106-3 #### [facility] ([id number]) [address] [place] [address] Eosinophils/100 WBC (Bld) 0.8 % Normal [facility] Comment on above: Performed By: #### 2 106-3 #### [facility] ([id number]) [address] [place] [address] Erythrocyte distribution width (RBC) [Ratio] 13.7 % Normal 11.5-15.0 [facility] Comment on above: Performed By: #### 2 106-3 #### [facility] ([id number]) [address] [place] [address] Hematocrit (Bld) [Volume fraction] 35.8 % Normal 35-47 [facility] Comment on above: Performed By: #### 2 106-3 #### [facility] ([id number]) [address] [place] [address] Hemoglobin (Bld) [Mass/Vol] 12.5 g/dL Normal 11.7-15.5 [facility] Comment on above: Performed By: #### 2 106-3 #### [facility] ([id number]) [address] [place] [address] Lymphocytes (Bld) [#/Vol] 3.4 10*3/uL Normal 1.0-3.5 [facility] Comment on above: Performed By: #### 2 106-3 #### [facility] ([id number]) [address] [place] [address] Lymphocytes/100 WBC (Bld) 29.4 % Normal [facility] Comment on above: Performed By: #### 2 106-3 #### [facility] ([id number]) [address] [place] [address] MCH (RBC) [Entitic mass] 29.8 pg Normal 27-34 [facility] Comment on above: Performed By: #### 2 106-3 #### [facility] ([id number]) [address] [place] [address] MCHC (RBC) [Mass/Vol] 35.0 g/dL Normal 32-36 [facility] Comment on above: Performed By: #### 2 106-3 #### [facility] ([id number]) [address] [place] [address] MCV (RBC) [Entitic vol] 85 fL Normal 80-100 [facility] Comment on above: Performed By: #### 2 106-3 #### [facility] ([id number]) [address] [place] [address] Monocytes (Bld) [#/Vol] 0.6 10*3/uL Normal 0-0.9 [facility] Comment on above: Performed By: #### 2 106-3 #### [facility] ([id number]) [address] [place] [address] Monocytes/100 WBC (Bld) 4.8 % Normal [facility] Comment on above: Performed By: #### 2 106-3 #### [facility] ([id number]) [address] [place] [address] Neutrophils/100 WBC (Bld) 64.7 % Normal [facility] [facility] Comment on above: Performed By: #### 2 106-3 #### [facility] ([id number]) [address] [place] [address] [place] [address] Platelet mean volume (Bld) [Entitic vol] 6.6 fL Low 7-12 [facility] Comment on above: Performed By: #### 2 106-3 #### [facility] ([id number]) [address] [place] [address] 43228 Platelets (Bld) [#/Vol] 377 10*3/uL Normal 150-450 [facility] Comment on above: Performed By: #### 2 106-3 #### [facility] ([id number]) [address] [place] [address] 55850 RBC COUNT 4.21 X10E12/L Normal 3.80-5.20 [facility] Comment on above: Performed By: #### 2 106-3 #### [facility] ([id number]) [address] [place] [address] 69201 WBC (Bld) [#/Vol] 11.6 10*3/uL High 4.0-11.0 [facility] Comment on above: Performed By: #### 2 106-3 #### [facility] ([id number]) [address] [place] [address] 45929 COMPREHENSIVE METABOLIC PANE Kit 02-13-2024 Albumin [Mass/Vol] 4.1 g/dL Normal 3.2-5.3 [facility] Comment on above: Performed By: #### 2 106-3 #### [facility] ([id number]) [address] [place] [address] 82006 ALP [Catalytic activity/Vol] 158 U/L High 39-130 [facility] Comment on above: Performed By: #### 2 106-3 #### [facility] ([id number]) [address] [place] [address] 33433 ALT [Catalytic activity/Vol] 46 U/L High 0-31 [facility] Comment on above: Performed By: #### 2 106-3 #### [facility] ([id number]) [address] [place] [address] 84854 Anion gap [Moles/Vol] 7 mmol/L Normal 5-15 [facility] Comment on above: Performed By: #### 2 106-3 #### [facility] ([id number]) [address] [place] [address] 77913 AST [Catalytic activity/Vol] 28 U/L Normal 0-41 [facility] Comment on above: Performed By: #### 2 106-3 #### [facility] ([id number]) [address] [place] [address] 36007 Bilirubin [Mass/Vol] 0.5 mg/dL Normal 0.3-1.2 [facility] Comment on above: Performed By: #### 2 106-3 #### [facility] ([id number]) [address] [place] [address] 87707 Calcium [Mass/Vol] 9.0 mg/dL Normal 8.5-10.5 [facility] Comment on above: Performed By: #### 2 106-3 #### [facility] ([id number]) [address] [place] [address] 34687 Chloride [Moles/Vol] 106 mmol/L Normal 98-109 [facility] Comment on above: Performed By: #### 2 106-3 #### [facility] ([id number]) [address] [place] [address] 51576 CO2 [Moles/Vol] 24 mmol/L Normal 22-32 [facility] Comment on above: Performed By: #### 2 106-3 #### [facility] ([id number]) [address] [place] [address] 23194 Creatinine [Mass/Vol] 0.63 mg/dL Normal 0.40-1.00 [facility] Comment on above: Result Comment: METH OD TRACEABLE TO IDMS STANDARD Performed By: #### 2 106-3 #### [facility] ([id number]) [address] [place] [address] 49902 eGFR (CKD-EPI) NON-RACE DEPENDENT >90 Normal >59 [facility] Comment on above: Result Comment: Reported eGFR is based on the CKD-EPI 2020 equation that does not use a race coefficient. Performed By: #### 2 106-3 #### [facility] ([id number]) [address] [place] [address] 85328 Glucose [Mass/Vol] 98 mg/dL Normal 65-99 [facility] Comment on above: Performed By: #### 2 106-3 #### [facility] ([id number]) [address] [place] [address] 97480 Potassium [Moles/Vol] 3.1 mmol/L Low 3.5-5.0 [facility] Comment on above: Performed By: #### 2 106-3 #### [facility] ([id number]) [address] [place] [address] 32866 Protein [Mass/Vol] 8.0 g/dL Normal 6.0-8.0 [facility] Comment on above: Performed By: #### 2 106-3 #### [facility] ([id number]) [address] [place] [address] 60825 Sodium [Moles/Vol] 137 mmol/L Normal 134-146 [facility] Comment on above: Performed By: #### 2 106-3 #### [facility] ([id number]) [address] [place] [address] 21567 Urea nitrogen [Mass/Vol] 7 mg/dL Normal 5-23 [facility] Comment on above: Performed By: #### 2 106-3 #### [facility] ([id number]) [address] [place] [address] 61265 HCG ( test) Ql (U)o n 02-13-2024 Beta HCG ( test) Ql (U) Negative Normal NEG [facility] Comment on above: Performed By: #### 2 106-3 #### [facility] ([id number]) [address] [place] [address] 03530 MAGNESIUMon 02-13-2024 Magnesium [Mass/Vol] 1.9 mg/dL Normal 1.8-2.6 [facility] Comment on above: Performed By: #### 2 106-3 #### [facility] ([id number]) [address] [place] [address] 28773 Troponin I.cardiac High sens itivity method [Mass/Vol]on 02-13-2024 TROPONIN I, HIGH SENSITIVITY 3 ng/L Normal <16 [facility] Comment on above: Performed By: #### 2 106-3 #### [facility] ([id number]) [address] [place] [address] 60478 URN MACROSCOPIC NURon 2023 BILIRUBIN BETHANY Negative Normal NEG [facility] Comment on above: Performed By: #### 2 106-3 #### [facility] ([id number]) [address] [place] [address] 98443 BLOOD/HGB BETHANY Negative Normal NEG [facility] Comment on above: Performed By: #### 2 106-3 #### [facility] ([id number]) [address] [place] [address] 87938 GLUCOSE BETHANY Negative Normal NEG [facility] Comment on above: Performed By: #### 2 106-3 #### [facility] ([id number]) [address] [place] [address] 42237 KETONES BETHANY Negative Normal NEG [facility] Comment on above: Performed By: #### 2 106-3 #### [facility] ([id number]) [address] [place] [address] 35186 LEUKOCYTE ESTERASE BETHANY Negative Normal NEG [facility] Comment on above: Performed By: #### 2 106-3 #### [facility] ([id number]) [address] [place] [address] 31957 NITRITE BETHANY Negative Normal NEG [facility] Comment on above: Performed By: #### 2 106-3 #### [facility] ([id number]) [address] [place] [address] 06322 PH BETHANY 6.5 Normal 5.0-8.5 [facility] Comment on above: Performed By: #### 2 106-3 #### [facility] ([id number]) [address] [place] [address] 70653 PROTEIN BETHANY Negative Normal NEG [facility] Comment on above: Performed By: #### 2 106-3 #### [facility] ([id number]) [address] [place] [address] 54510 SPECIFIC GRAVITY BETHANY 1.015 Normal 1.003-[address] [place] [address] Comment on above: Performed By: #### 2 106-3 #### [facility] ([id number]) [address] [place] [address] 24560 UROBILINOGEN BETHANY 0.2 eu/dL Normal <1.1 [facility] Comment on above: Performed By: #### 2 106-3 #### [facility] ([id number]) [address] [place] [address] 34340 XR CHEST 2 VWSon 02-13-2024 XR CHEST 2 VWS XR CHEST 2 VWS Chest 2 views History: Difficulty breathing SOB Comparison: 11/25/2023 Findings: Chest 2 views. Stable cardiomediastinal silhouette. No focal opacity, effusion or pneumothorax. Impression: No evident acute cardiopulmonary process. Finalized by Jennifer Howe MD on 02/13/2024 11:22 PM Normal [facility] BASIC METABOLIC PANLon 12-28 Anion gap [Moles/Vol] 4 mmol/L Low 5-15 [facility] Comment on above: Performed By: #### 2 106-3 #### [facility] ([id number]) [address] [place] [address] 27332 Calcium [Mass/Vol] 8.4 mg/dL Low 8.5-10.5 [facility] Comment on above: Performed By: #### 2 106-3 #### [facility] ([id number]) [address] [place] [address] 77963 Chloride [Moles/Vol] 106 mmol/L Normal 98-109 [facility] Comment on above: Performed By: #### 2 106-3 #### [facility] ([id number]) [address] [place] [address] 47072 CO2 [Moles/Vol] 24 mmol/L Normal 22-32 [facility] Comment on above: Performed By: #### 2 106-3 #### [facility] ([id number]) [address] [place] [address] 80591 Creatinine [Mass/Vol] 0.65 mg/dL Normal 0.40-1.00 [facility] Comment on above: Result Comment: METH OD TRACEABLE TO IDMS STANDARD Performed By: #### 2 106-3 #### [facility] ([id number]) [address] [place] [address] 76888 eGFR (CKD-EPI) NON-RACE DEPENDENT >90 Normal >59 [facility] Comment on above: Result Comment: Reported eGFR is based on the CKD-EPI 2020 equation that does not use a race coefficient. Performed By: #### 2 106-3 #### [facility] ([id number]) [address] [place] [address] 91491 Glucose [Mass/Vol] 101 mg/dL High 65-99 [facility] Comment on above: Performed By: #### 2 106-3 #### [facility] ([id number]) [address] [place] [address] 28359 Potassium [Moles/Vol] 3.8 mmol/L Normal 3.5-5.0 [facility] Comment on above: Performed By: #### 2 106-3 #### [facility] ([id number]) [address] [place] [address] 94111 Sodium [Moles/Vol] 134 mmol/L Normal 134-146 [facility] Comment on above: Performed By: #### 2 106-3 #### [facility] ([id number]) [address] [place] [address] 68053 Urea nitrogen [Mass/Vol] 12 mg/dL Normal 5-23 [facility] Comment on above: Performed By: #### 2 106-3 #### [facility] ([id number]) [address] [place] [address] 64409 CBC AND AUTO DIFFon 12-28-20 24 ABSOLUTE BASOPHIL 0.1 X10E9/L Normal 0.0-0.2 [facility] Comment on above: Performed By: #### 2 106-3 #### [facility] ([id number]) [address] [place] [address] 49537 ABSOLUTE NEUTROPHIL 6.1 X10E9/L Normal 1.5-6.6 [facility] Comment on above: Performed By: #### 2 106-3 #### [facility] ([id number]) [address] [place] [address] 42108 Basophils/100 WBC (Bld) 0.7 % Normal [facility] Comment on above: Performed By: #### 2 106-3 #### [facility] ([id number]) [address] [place] [address] 41307 Eosinophils (Bld) [#/Vol] 0.2 10*3/uL Normal 0.0-0.4 [facility] Comment on above: Performed By: #### 2 106-3 #### [facility] ([id number]) [address] [place] [address] 44109 Eosinophils/100 WBC (Bld) 1.9 % Normal [facility] Comment on above: Performed By: #### 2 106-3 #### [facility] ([id number]) [address] [place] [address] 52705 Erythrocyte distribution width (RBC) [Ratio] 13.6 % Normal 11.5-15.0 [facility] Comment on above: Performed By: #### 2 106-3 #### [facility] ([id number]) [address] [place] [address] 42373 Hematocrit (Bld) [Volume fraction] 33.7 % Low 35-47 [facility] Comment on above: Performed By: #### 2 106-3 #### [facility] ([id number]) [address] [place] [address] 68039 Hemoglobin (Bld) [Mass/Vol] 11.7 g/dL Normal 11.7-15.5 [facility] Comment on above: Performed By: #### 2 106-3 #### [facility] ([id number]) [address] [place] [address] 60138 Lymphocytes (Bld) [#/Vol] 3.0 10*3/uL Normal 1.0-3.5 [facility] Comment on above: Performed By: #### 2 106-3 #### [facility] ([id number]) [address] [place] [address] 17337 Lymphocytes/100 WBC (Bld) 29.8 % Normal [facility] Comment on above: Performed By: #### 2 106-3 #### [facility] ([id number]) [address] [place] [address] 24661 MCH (RBC) [Entitic mass] 29.2 pg Normal 27-34 [facility] Comment on above: Performed By: #### 2 106-3 #### [facility] ([id number]) [address] [place] [address] 84094 MCHC (RBC) [Mass/Vol] 34.6 g/dL Normal 32-36 [facility] Comment on above: Performed By: #### 2 106-3 #### [facility] ([id number]) [address] [place] [address] 48593 MCV (RBC) [Entitic vol] 84 fL Normal 80-100 [facility] Comment on above: Performed By: #### 2 106-3 #### [facility] ([id number]) [address] [place] [address] 06448 Monocytes (Bld) [#/Vol] 0.6 10*3/uL Normal 0-0.9 [facility] Comment on above: Performed By: #### 2 106-3 #### [facility] ([id number]) [address] [place] [address] 84436 Monocytes/100 WBC (Bld) 6.5 % Normal [facility] Comment on above: Performed By: #### 2 106-3 #### [facility] ([id number]) [address] [place] [address] 38818 Neutrophils/100 WBC (Bld) 61.1 % Normal [facility] Comment on above: Performed By: #### 2 106-3 #### [facility] ([id number]) [address] [place] [address] 63812 Platelet mean volume (Bld) [Entitic vol] 6.8 fL Low 7-12 [facility] Comment on above: Performed By: #### 2 106-3 #### [facility] ([id number]) [address] [place] [address], [place] [address] Platelets (Bld) [#/Vol] 307 10*3/uL Normal 150-450 [facility] Comment on above: Performed By: #### 2 106-3 #### [facility] ([id number]) [address] [place] [address] 28164 RBC COUNT 4.00 X10E12/L Normal 3.80-5.20 [facility] Comment on above: Performed By: #### 2 106-3 #### [facility] ([id number]) [address] [place] [address] 16171 WBC (Bld) [#/Vol] 10.0 10*3/uL Normal 4.0-11.0 [facility] Comment on above: Performed By: #### 2 106-3 #### [facility] ([id number]) [address] [place] [address] 13338 MAGNESIUMon 12-29-2023 Magnesium [Mass/Vol] 2.0 mg/dL Normal 1.8-2.6 [facility] Comment on above: Performed By: #### 2 106-3 #### [facility] ([id number]) [address] [place] [address] 06634 HCG ( test) Ql (U)o n 12-11-2023 Beta HCG ( test) Ql (U) Negative Normal NEG [facility] Comment on above: Performed By: #### 2 106-3 #### [facility] ([id number]) [address] [place] [address] 25892 URN MACROSCOPIC NURon 2023 BILIRUBIN BETHANY Negative Normal NEG [facility] Comment on above: Performed By: #### N UM #### [facility] ([id number]) [address] [place] [address] 74199 BLOOD/HGB BETHANY Negative Normal NEG [facility] Comment on above: Performed By: #### N UM #### [facility] ([id number]) [address] [place] [address] [place] [address] GLUCOSE BETHANY Negative Normal NEG [facility] Comment on above: Performed By: #### N UM #### [facility] ([id number]) [address] [place] [address] [place] [address] KETONES BETHANY Negative Normal NEG [facility] Comment on above: Performed By: #### N UM #### [facility] ([id number]) [address] [place] [address] [place] [address] LEUKOCYTE ESTERASE BETHANY Negative Normal NEG [facility] Comment on above: Performed By: #### N UM #### [facility] ([id number]) [address] [place] [address] 29204 NITRITE BETHANY Negative Normal NEG [facility] Comment on above: Performed By: #### N UM #### [facility] ([id number]) [address] [place] [address] [place] [address] PH BETHANY 6.0 Normal 5.0-8.5 [facility] Comment on above: Performed By: #### N UM #### [facility] ([id number]) [address] [place] [address] [place] [address] PROTEIN BETHANY Negative Normal NEG [facility] Comment on above: Performed By: #### N UM #### [facility] ([id number]) [address] [place] [address], [place] [address] SPECIFIC GRAVITY BETHANY 1.015 Normal 1.003-1 .03 5 [facility] Comment on above: Performed By: #### N UM #### [facility] ([id number]) [address] [place] [address], [place] [address] UROBILINOGEN BETHANY 0.2 eu/dL Normal <1.1 [facility] Comment on above: Performed By: #### N UM #### [facility] ([id number]) [address] [place] [address] 87487 BASIC METABOLIC PANLon 11-24 Anion gap [Moles/Vol] 13 mmol/L Normal 5-15 [facility] Comment on above: Performed By: #### B MP #### [facility] ([id number]) [address] [place] [address] 91841 Calcium [Mass/Vol] 9.0 mg/dL Normal 8.5-10.5 [facility] Comment on above: Performed By: #### B MP #### [facility] ([id number]) [address] [place] [address] 74319 Chloride [Moles/Vol] 103 mmol/L Normal 98-109 [facility] Comment on above: Performed By: #### B MP #### [facility] ([id number]) [address] [place] [address] 02543 CO2 [Moles/Vol] 20 mmol/L Low 22-32 [facility] Comment on above: Performed By: #### B MP #### [facility] ([id number]) [address] [place] [address] 45245 Creatinine [Mass/Vol] 0.69 mg/dL Normal 0.40-1.00 [facility] Comment on above: Result Comment: METH OD TRACEABLE TO IDMS STANDARD Performed By: #### B MP #### [facility] ([id number]) [address] [place] [address] 42362 eGFR (CKD-EPI) NON-RACE DEPENDENT >90 Normal >59 [facility] Comment on above: Result Comment: Reported eGFR is based on the CKD-EPI 2020 equation that does not use a race coefficient. Performed By: #### B MP #### [facility] ([id number]) [address] [place] [address] Glucose [Mass/Vol] 95 mg/dL Normal 65-99 [facility] Comment on above: Performed By: #### B MP #### [facility] ([id number]) [address] [place] [address], [facility] [place] [address] Potassium [Moles/Vol] 2.9 mmol/L Low 3.5-5.0 [facility] Comment on above: Performed By: #### B MP #### [facility] ([id number]) [address] [place] [address] [place] [address] Sodium [Moles/Vol] 136 mmol/L Normal 134-146 [facility] Comment on above: Performed By: #### B MP #### [facility] ([id number]) [address] [place] [address] [place] [address] Urea nitrogen [Mass/Vol] 7 mg/dL Normal 5-23 [facility] Comment on above: Performed By: #### B MP #### [facility] ([id number]) [address] [place] [address] 61680 SARS/FLU A+B/RSV by NAAT/Mol ecularon 11-25-2023 SARS/FLU [...] operators who are performing tests using either [employer] or [employer] systems and is limited to laboratories that [...] repeat. Fact Sheet for Healthcare Providers: https://www.fda.gov/media /861281/download Fact Sheet for Patients: https://www.fda.gov/media /652006/download Normal [facility] Comment on above: Performed By: #### C OVFLR #### [facility] ([id number]) [address] [place] [address] 91428 XR FOOT LT MIN 3 VWSon 09-21 [...] Loya MD on 09/22/2023 12:09 AM Normal [facility] HCG ( test) Ql (U)o n 09-21-2023 Beta HCG ( test) Ql (U) Negative Normal NEG [facility] Comment on above: Performed By: #### 2 106-3 #### [facility] ([id number]) [address] [place] [address], [place] [address] SARS/FLU A+B/RSV by NAAT/Mol [facility] center 07-09-2023 SARS/FLU A+B/RSV by NAAT/Molecular FLU A [...] operators who are performing tests using either [employer] or [employer] systems and is limited to laboratories that [...] repeat. Fact Sheet for Healthcare Providers: https://www.fda.gov/media /618928/download Fact Sheet for Patients: https://www.fda.gov/media /362116/download Normal [facility] Comment on above: Performed By: #### C OVFLR #### [facility] ([id number]) [address] [place] [address] 41008 Provider Letteron 02-25-2023 Provider Letter (Inserted Image. Swapna ble to display) February 25, 2023 [address]IFER CARMEN [address] [place] [phone] : 1995 Dear Jennifer , We have been trying to reach you with no success. It is important that you return our call regarding your referral to our office by Jennifer upon receiving this letter. Also, at the time of your call, please provide us with your current information. Thank you for your prompt attention to this matter. Sincerely, [facility] [phone] Normal [facility] Physician Referralon 023 Physician Referral [phone] [id number] Normal [facility] Urinalysis - AUTOMATEDon Appearance (U) cloudy [employer] Other Bilirubin Ql (U) Negative [employer] Other Color (U) yellow [facility] Other Glucose Ql (U) Negative [employer] Other Hemoglobin Ql (U) Trace-intact [facility] Other Ketones Ql (U) Negative [employer] Other Leukocyte esterase Test strip Ql (U) Trace [facility] Other Nitrite Ql (U) Negative [employer] Other pH (U) 6.0 [pH] [facility] Other Protein Ql (U) Negative [employer] Other Specific gravity (U) [Rel density] <=1.005 [facility] Other Urobilinogen (U) [Mass/Vol] 0.2 mg/dL [facility] Other Urinalysis - AUTOMATED No rt Minka Other Quick Strepon 04-26-2022 S. pyogenes Org specific cx Ql (Throat) Negative [facility] Other Quick Strep [facility] Other SARS-CoV-2 (COVID-19) RNA NA A+probe Ql (Resp)on 04-23-2022 SARS-CoV-2 (COVID-19) RNA EMMANUELLE+probe Ql (Unsp spec) Negative [facility] Other Covid-19 PCR (CVDTB)on 03-16 SARS-CoV-2 (COVID-19) RNA EMMANUELLE+probe Ql (Unsp spec) Not detected Normal NOT DETECTED [facility] Comment on above: Result Comment: This test is not yet approved or cleared by the [place] FDA. When there are no FDA-approved or cleared tests available, and other criteria are met, FDA can make tests available under an emergency access mechanism called an Emergency Use Authorization (EUA). The EUA for this test is supported by the [employer] of [employer] and Human Service's (HHS's) declaration [...] SARS-CoV-2. Performed By: #### C BC #### [facility] [address] [place], [place] [id number] Dr. Katrin Ceja SARS-CoV-2 (COVID-19) RNA NA A+probe Ql (Resp)on 03-27-2022 SARS-CoV-2 (COVID-19) RNA EMMANUELLE+probe Ql (Unsp spec) Negative [facility] Other CBC AUTO DIFFon 03-22-2022 BASO # 0.0 103/ul Normal 0.0-0.1 [facility] Comment on above: Performed By: #### L IPARTHUR, CMP #### [facility] [address] [place], [place] [address] Dr. Katrin Ceja Basophils/100 WBC (Bld) 0.3 % Normal 0.2-2.0 [facility] Comment on above: Performed By: #### L IPID, CMP #### [facility] [address] [place] [address] Dr. Katrin Ceja EO # 0.2 103/ul Normal 0.0-0.7 [facility] Comment on above: Performed By: #### L IPID, CMP #### [facility] [address] [place] [address] Dr. Katrin Ceja Eosinophils/100 WBC (Bld) 2.2 % Normal 0.9-7.0 [facility] Comment on above: Performed By: #### L IPID, CMP #### [facility] [address] [place] [address] Dr. Katrin Ceja Erythrocyte distribution width (RBC) [Ratio] 11.9 % Normal 11.0-15.0 [facility] Comment on above: Performed By: #### L IPID, CMP #### [facility] [address] [place] [address] Dr. Katrin Ceja Hematocrit (Bld) [Volume fraction] 36.4 % Normal 36.0-48.0 [facility] Comment on above: Performed By: #### L IPID, CMP #### [facility] [address] [place] [address] Dr. Katrin Ceja Hemoglobin (Bld) [Mass/Vol] 12.6 g/dL Normal 12.0-16.0 [facility] Comment on above: Performed By: #### L IPID, CMP #### [facility] [address] [place] [address] Dr. Katrin Ceja IG # 0.03 10e3/ul Normal 0.00-0.03 [facility] Comment on above: Performed By: #### L IPID, CMP #### [facility] [address] [place] [address] Dr. Katrin Ceja IG % 0.3 % Normal 0.0-0.5 [facility] Comment on above: Performed By: #### L IPID, CMP #### [facility] [address] [place] [address] Dr. Katrin Ceja LYMPH # 3.5 103/ul Normal 1.2-3.8 [facility] Comment on above: Performed By: #### L IPID, CMP #### [facility] [address] [place] [address] Dr. Katrin Ceja Lymphocytes/100 WBC (Bld) 33.1 % Normal 20.5-60.0 [facility] Comment on above: Performed By: #### L IPID, CMP #### [facility] [address] [place] [address] Dr. Katrin Ceja MANUAL DIFF REQ NO Normal [facility] Comment on above: Performed By: #### L IPID, CMP #### [facility] [address] [place] [address] Dr. Katrin Ceja MCH (RBC) [Entitic mass] 29.9 pg Normal 26.7-34.0 [facility] Comment on above: Performed By: #### L IPID, CMP #### [facility] [address] [place] [address] Dr. Katrin Ceja MCHC (RBC) [Mass/Vol] 34.6 g/dL Normal 29.9-35.2 [facility] Comment on above: Performed By: #### L IPID, CMP #### [facility] [address] [place] [address] Dr. Katrin Ceja MCV (RBC) [Entitic vol] 86.5 fL Normal 81.0-99.0 [facility] Comment on above: Performed By: #### L IPID, CMP #### [facility] [address] [place] [address] Dr. Katrin Ceja MONO # 0.7 103/ul Normal 0.3-0.8 [facility] Comment on above: Performed By: #### L IPID, CMP #### [facility] [address] [place] [address] Dr. Katrin Ceja Monocytes/100 WBC (Bld) 6.5 % Normal 1.7-12.0 [facility] Comment on above: Performed By: #### L IPID, CMP #### [facility] [address] [place] [address] Dr. Katrin Ceja NEUT # 6.0 103/ul Normal 1.4-6.5 [facility] Comment on above: Performed By: #### L IPID, CMP #### [facility] [address] [place] [address] Dr. Katrin Ceja Neutrophils/100 WBC (Bld) 57.6 % Normal 43.0-75.0 [facility] Comment on above: Performed By: #### L IPID, CMP #### [facility] [address] [place] [address] Dr. Katrin Ceja Platelet mean volume (Bld) [Entitic vol] 8.7 fL Critically low 9.5-13.5 [facility] Comment on above: Performed By: #### L IPID, CMP #### [facility] [address] [place] [address] Dr. Katrin Ceja PLT 282 103/ul Normal 150-450 [facility] Comment on above: Performed By: #### L IPID, CMP #### [facility] [address] [place] [address] Dr. Katrin Ceja RBC 4.21 106/ul Normal 4.20-5.40 [facility] Comment on above: Performed By: #### L IPID, CMP #### [facility] [address] [place] [address] Dr. Katrin Ceja WBC 10.5 103/ul Normal 4.0-11.0 [facility] Comment on above: Performed By: #### L IPID, CMP #### [facility] [address] [place] [address] Dr. Katrin Ceja ER URINE PROFILEon 2 Bilirubin Ql (U) Negative Normal NEGATIVE [facility] Comment on above: Performed By: #### L IPID, CMP #### [facility] [address] [place] [address] Dr. Katrin Ceja Clarity (U) CLEAR Normal CLEAR [facility] Comment on above: Performed By: #### L IPID, CMP #### [facility] [address] [place] [address] Dr. Katrin Ceja Color (U) LT. YELLOW Normal YELLOW [facility] Comment on above: Performed By: #### L IPID, CMP #### [facility] [address] [place] [address] [address] Katrin ANN A micrscopic examina tion will be performed if indicated. Normal [facility] Comment on above: Performed By: #### L IPID, CMP #### [facility] [address] [place] [address] [address] Katrin Ceja Glucose Ql (U) Negative Normal NEGATIVE [facility] Comment on above: Performed By: #### L IPID, CMP #### [facility] [address] [place] [address] [address] Katrin Ceja Hemoglobin Ql (U) Negative Normal NEGATIVE [facility] Comment on above: Performed By: #### L IPID, CMP #### [facility] [address] [place] [address] Dr. Katrin Ceja Ketones Ql (U) Negative Normal NEGATIVE [facility] Comment on above: Performed By: #### L IPID, CMP #### [facility] [address] [place] [address] Dr. Katrin Ceja LEUKOCYTES Negative Normal NEGATIVE [facility] Comment on above: Performed By: #### L IPID, CMP #### [facility] [address] [place] [address] Dr. Katrin Ceja Nitrite Ql (U) Negative Normal NEGATIVE [facility] Comment on above: Performed By: #### L IPID, CMP #### [facility] [address] [place] [address] [address] Katrin Ceja pH (U) 6.0 [pH] Normal 5-9 [facility] Comment on above: Performed By: #### L IPID, CMP #### [facility] [address] [place] [address] Dr. Katrin Ceja SPEC GRAVITY 1.015 Normal 1.005-<=1. 025 [facility] Comment on above: Performed By: #### L IPID, CMP #### [facility] [address] [place] [address] Dr. Katrin Ceja UA PROTEIN Negative Normal NEGATIVE/ TRACE [facility] Comment on above: Performed By: #### L IPID, CMP #### [facility] [address] [place] [address] Dr. Katrin Ceja UR MICRO IND NOT INDICATED Normal [facility] Comment on above: Performed By: #### L IPID, CMP #### [facility] [address] [place] [address] Dr. Katrin Ceja Urobilinogen Qn (U) 0.2 {Jeannie'U}/dL Normal 0.2 - 1. 0 [facility] Comment on above: Performed By: #### L IPID, CMP #### [facility] [address] [place] [address] Dr. Katrin Ceja LIPASEon 03-22-2022 Lipase [Catalytic activity/Vol] 84.0 U/L Normal 73.0-393.0 [facility] Comment on above: Performed By: #### H STROPN, CMP, LIPA #### [facility] [address] [place] [address] Dr. Katrin Ceja URon 03-22-2022 , QUAL Negative Normal NEGATIVE [facility] Comment on above: Performed By: #### L IPID, CMP #### [facility] [address] [place] [address] Dr. Katrin Ceja PROF 14(COMP METB)on 022 Albumin [Mass/Vol] 3.2 g/dL Critically low 3.4-5.0 [facility] Comment on above: Performed By: #### H STROPN, CMP, LIPA #### [facility] [address] [place] [address] Dr. Katrin Ceja Albumin/Globulin [Mass ratio] 0.8 {ratio} Normal [facility] Comment on above: Performed By: #### H STROPN, CMP, LIPA #### [facility] [address] [place] [address] Dr. Katrin Ceja ALP [Catalytic activity/Vol] 189 U/L Critically high 46-116 [facility] Comment on above: Performed By: #### H STROPN, CMP, LIPA #### [facility] [address] [place] [address] [address] Katrin Ceja ALT [Catalytic activity/Vol] 31 U/L Normal 14-59 [facility] Comment on above: Performed By: #### H STROPN, CMP, LIPA #### [facility] [address] [place] [address] [address] Katrin Ceja Anion gap [Moles/Vol] 9.9 mmol/L Normal [facility] Comment on above: Performed By: #### H STROPN, CMP, LIPA #### [facility] [address] [place] [address] [address] Katrin Ceja AST [Catalytic activity/Vol] 17 U/L Normal 15-37 [facility] Comment on above: Performed By: #### H STROPN, CMP, LIPA #### [facility] [address] [place] [address] Dr. Katrin Ceja Bilirubin [Mass/Vol] 0.2 mg/dL Normal 0.2-1.0 [facility] Comment on above: Performed By: #### H STROPN, CMP, LIPA #### [facility] [address] [place] [address] [address] Katrin Ceja Calcium [Mass/Vol] 8.7 mg/dL Normal 8.5-10.1 [facility] Comment on above: Performed By: #### H STROPN, CMP, LIPA #### [facility] [address] [place] [address] [address] Katrin Ceja Chloride [Moles/Vol] 103 mmol/L Normal 98-107 [facility] Comment on above: Performed By: #### H STROPN, CMP, LIPA #### [facility] [address] [place] [address] Dr. Katrin Ceja CO2 [Moles/Vol] 25.4 mmol/L Normal 21.0-32.[address] [facility] Comment on above: Performed By: #### H STROPN, CMP, LIPA #### [facility] [address] [place] [address] Dr. Katrin Ceja Creatinine [Mass/Vol] 0.71 mg/dL Normal 0.55-1.02 [facility] Comment on above: Performed By: #### H STROPN, CMP, LIPA #### [facility] [address] [place] [address] [address] Katrin Ceja EGFR-AF ENGLISH >60 Normal >=[address] [facility] Comment on above: Performed By: #### H STROPN, CMP, LIPA #### [facility] [address] [place] [address] [address] Katrin Ceja EGFR-NON AF ENGLISH >60 Normal >=60 [facility] Comment on above: Performed By: #### H STROPN, CMP, LIPA #### [facility] [address] [place] [address] [address] Katrin Ceja Globulin (S) [Mass/Vol] 4.0 g/dL Normal [facility] Comment on above: Performed By: #### H STROPN, CMP, LIPA #### [facility] [address] [place] [address] [address] Katrin Ceja Glucose [Mass/Vol] 106 mg/dL Normal 74-106 [facility] Comment on above: Performed By: #### H STROPN, CMP, LIPA #### [facility] [address] [place] [address] Dr. Katrin Ceja Potassium [Moles/Vol] 3.3 mmol/L Critically low 3.5-5.1 [facility] Comment on above: Performed By: #### H STROPN, CMP, LIPA #### [facility] [address] [place] [address] [address] Katrin Ceja Protein [Mass/Vol] 7.2 g/dL Normal 6.4-8.2 [facility] Comment on above: Performed By: #### H STROPN, CMP, LIPA #### [facility] [address] [place] [address] Dr. Katrin Ceja Sodium [Moles/Vol] 135 mmol/L Critically low 136-145 [facility] Comment on above: Performed By: #### H STROPN, CMP, LIPA #### [facility] [address] [place], [place] [address] Dr. Katrin Ceja Urea nitrogen [Mass/Vol] 5.0 mg/dL Critically low 7.0-18.0 [facility] Comment on above: Performed By: #### H STROPN, CMP, LIPA #### [facility] [address] [place], [place] [address] Dr. Katrin Ceja Urea nitrogen/Creatinine [Mass ratio] 7.0 mg/mg Normal [facility] Comment on above: Performed By: #### H STROPN, CMP, LIPA #### [facility] [address] [place], [place] [address] Dr. Katrin Ceja TROPONIN, HIGH SENSITIVITYon 03-22-2022 HSTROP <4.0 Normal 4.0-51.3 [facility] Comment on above: Result Comment: CUT- OFF POINTS HAVE BEEN ESTABLISHED BASED ON THE FOURTH UNIVERSAL DEFINITIONS OF MYOCARDIAL INFARCTION. THE UPPER REFERENCE LIMIT (URL) OF TROPONIN, DEFINED THE 99TH PERCENTILE OF cTnI DISTRIBUTION IN A REFERENCE POPULATION, HAS BEEN CONFIRMED THE DECISION THRESHOLD FOR WI DIAGNOSIS. Performed By: #### H STROPN, CMP, LIPA #### [facility] [address] [place] [address] [address] Katrin Ceja XR ABD FLAT UP_PA [...] GERI LASSITER Date: 2022-03-22 01:53 Normal [facility] XR ANKLE LT MIN 3 Von 2021 XR ANKLE LT MIN 3 V EXAM: XR ANKLE LT WI N 3 V HISTORY: Ankle pain COMPARISON: None. TECHNIQUE: 3 views FINDINGS: No osseous lesion, fracture, dislocation or subluxation. Joint spaces are normal. Old posttraumatic ossifications adjacent to the tip of the lateral malleolus. No visualized effusion. No visualized soft tissue edema. IMPRESSION: Normal x-rays Electronically authenticated by: DANNI QUINONES Date: 2022-03-09 19:32 Normal [facility] CBC AUTO DIFFon 02-08-2022 BASO # 0.0 103/ul Normal 0.0-0.1 [facility] Comment on above: Performed By: #### C BC #### [facility] [address] [place] [address] Dr. Katrin Ceja Basophils/100 WBC (Bld) 0.3 % Normal 0.2-2.0 [facility] Comment on above: Performed By: #### C BC #### [facility] [address] [place] [address] Dr. Katrin Ceja EO # 0.3 103/ul Normal 0.0-0.7 [facility] Comment on above: Performed By: #### C BC #### [facility] [address] [place] [address] Dr. Katrin Ceja Eosinophils/100 WBC (Bld) 3.0 % Normal 0.9-7.0 [facility] Comment on above: Performed By: #### C BC #### [facility] [address] [place] [address] Dr. Katrin Ceja Erythrocyte distribution width (RBC) [Ratio] 12.2 % Normal 11.0-15.0 [facility] Comment on above: Performed By: #### C BC #### [facility] [address] [place] [address] Dr. Katrin Ceja Hematocrit (Bld) [Volume fraction] 33.8 % Critically low 36.0-48.0 [facility] Comment on above: Performed By: #### C BC #### [facility] [address] [place] [address] Dr. Katrin Ceja Hemoglobin (Bld) [Mass/Vol] 11.9 g/dL Critically low 12.0-16.0 [facility] Comment on above: Performed By: #### C BC #### [facility] [address] [place] [address] Dr. Katrin Ceja IG # 0.04 10e3/ul Critically high 0.00-0.03 [facility] Comment on above: Performed By: #### C BC #### [facility] [address] [place] [address] Dr. Katrin Ceja IG % 0.4 % Normal 0.0-0.5 [facility] Comment on above: Performed By: #### C BC #### [facility] [address] [place] [address] Dr. Katrin Ceja LYMPH # 3.0 103/ul Normal 1.2-3.8 [facility] Comment on above: Performed By: #### C BC #### [facility] [address] [place] [address] Dr. Katrin Ceja Lymphocytes/100 WBC (Bld) 28.4 % Normal 20.5-60.0 [facility] Comment on above: Performed By: #### C BC #### [facility] [address] [place] [address] Dr. Katrin Ceja MANUAL DIFF REQ NO Normal [facility] Comment on above: Performed By: #### C BC #### [facility] [address] [place] [address] Dr. Katrin Ceja MCH (RBC) [Entitic mass] 29.8 pg Normal 26.7-34.0 [facility] Comment on above: Performed By: #### C BC #### [facility] [address] [place] [address] Dr. Katrin Ceja MCHC (RBC) [Mass/Vol] 35.2 g/dL Normal 29.9-35.2 [facility] Comment on above: Performed By: #### C BC #### [facility] [address] [place] [address] Dr. Katrin Ceja MCV (RBC) [Entitic vol] 84.7 fL Normal 81.0-99.0 [facility] Comment on above: Performed By: #### C BC #### [facility] [address] [place] [address] Dr. Katrin Ceja MONO # 0.7 103/ul Normal 0.3-0.8 [facility] Comment on above: Performed By: #### C BC #### [facility] [address] [place] [address] Dr. Katrin Ceja Monocytes/100 WBC (Bld) 6.6 % Normal 1.7-12.0 [facility] Comment on above: Performed By: #### C BC #### [facility] [address] [place] [address] Dr. Katrin Ceja NEUT # 6.4 103/ul Normal 1.4-6.5 [facility] Comment on above: Performed By: #### C BC #### [facility] [address] [place] [address] Dr. Katrin Ceja Neutrophils/100 WBC (Bld) 61.3 % Normal 43.0-75.0 [facility] Comment on above: Performed By: #### C BC #### [facility] [address] [place] [address] Dr. Katrin Ceja Platelet mean volume (Bld) [Entitic vol] 8.9 fL Critically low 9.5-13.5 [facility] Comment on above: Performed By: #### C BC #### [facility] [address] [place] [address] Dr. Katrin Ceja PLT 299 103/ul Normal 150-450 [facility] Comment on above: Performed By: #### C BC #### [facility] [address] [place] [address] Dr. Katrin Ceja RBC 3.99 106/ul Critically low 4.20-5.40 [facility] Comment on above: Performed By: #### C BC #### [facility] [address] [place] [address] Dr. Katrin Ceja WBC 10.4 103/ul Normal 4.0-11.0 [facility] Comment on above: Performed By: #### C BC #### [facility] [address] [place] [address] Dr. Katrin Ceja D-DIMERon 02-08-2022 D-DIMER 0.59 mg/L FEU Normal <=0.59 [facility] Comment on above: Performed By: #### L IPID, CMP #### [facility] [address] [place] [address] Dr. Katrin Ceja D-DIMER COMMENTS SEE BELOW Normal [facility] Comment on above: Result Comment: [...] Performed By: #### L IPID, CMP #### [facility] [address] [place] [address] Dr. Katrin Ceja PROF CHEM 8 (BAS METB)on Anion gap [Moles/Vol] 12.8 mmol/L Normal [facility] Comment on above: Performed By: #### C BC #### [facility] [address] [place] [address] Dr. Katrin Ceja Calcium [Mass/Vol] 8.7 mg/dL Normal 8.5-10.1 [facility] Comment on above: Performed By: #### C BC #### [facility] [address] [place] [address] Dr. Katrin Ceja Chloride [Moles/Vol] 102 mmol/L Normal 98-107 [facility] Comment on above: Performed By: #### C BC #### [facility] [address] [place] [address] Dr. Katrin Ceja CO2 [Moles/Vol] 25.9 mmol/L Normal 21.0-32.[address] [facility] Comment on above: Performed By: #### C BC #### [facility] [address] [address] [address] Katrin Ceja Creatinine [Mass/Vol] 0.70 mg/dL Normal 0.55-1.02 [facility] Comment on above: Performed By: #### C BC #### [facility] [address] [address] [address] Katrin Ceja EGFR-AF ENGLISH >60 Normal >=60 [facility] Comment on above: Performed By: #### C BC #### [facility] [address] [address] [address] Katrin Ceja EGFR-NON AF ENGLISH >60 Normal >=60 [facility] Comment on above: Performed By: #### C BC #### [facility] [address] [place] [address] Dr. Katrin Ceja Glucose [Mass/Vol] 95 mg/dL Normal 74-106 [facility] Comment on above: Performed By: #### C BC #### [facility] [address] [address] [address] Katrin Ceja Potassium [Moles/Vol] 2.7 mmol/L Critically low 3.5-5.1 [facility] Comment on above: Result Comment: Test Repeated. Critical Value Verified Performed By: #### C BC #### [facility] [address] [address] [address] Katrin Ceja Sodium [Moles/Vol] 136 mmol/L Normal 136-145 [facility] Comment on above: Performed By: #### C BC #### [facility] [address] [address] [address] Katrin Ceja Urea nitrogen [Mass/Vol] 3.0 mg/dL Critically low 7.0-18.0 [facility] Comment on above: Performed By: #### C BC #### [facility] [address] [place] [address] Dr. Katrin Ceja Urea nitrogen/Creatinine [Mass ratio] 4.3 mg/mg Normal [facility] Comment on above: Performed By: #### C BC #### [facility] [address] [address] [address] Katrin Ceja XR CHEST 2 Von [...] by: RIVER RODGERS Date: 2022-02-08 04:19 Normal [facility] LIPID PROFILEon 12-18-2021 CHOL-HDL RATIO NORM SEE BELOW Normal [facility] Comment on above: Result Comment: 3.3 - 4.4 LOW RISK 4.4 - 7.1 AVERAGE RISK 7.1 - 11.0 MODERATE RISK >11.0 HIGH RISK Performed By: #### L IPID, LIVER #### [facility] [address] [place] [address] Dr. Katrin Ceja Cholesterol [Mass/Vol] 126 mg/dL Normal <=200 [facility] Comment on above: Performed By: #### L IPID, LIVER #### [facility] [address] [place] [address] Dr. Katrin Ceja Cholesterol in HDL [Mass/Vol] 31 mg/dL Critically low 40-60 [facility] Comment on above: Performed By: #### L IPID, LIVER #### [facility] [address] [place] [address] Dr. Katrin Ceja Cholesterol in LDL [Mass/Vol] 59.2 mg/dL Normal [facility] Comment on above: Performed By: #### L IPID, LIVER #### [facility] [address] [place] [address] Dr. Katrin Ceja Cholesterol.total/Chol esterol in HDL [Mass ratio] 4.1 {ratio} Normal [facility] Comment on above: Performed By: #### L IPID, LIVER #### [facility] [address] [place] [address] Dr. Katrin Ceja HDL NORMAL > or = 60 mg/dl - LO W CARDIOVASCULAR RISK <40 mg/dl - HIGH CARDIOVASCULAR RISK Normal [facility] Comment on above: Performed By: #### L IPID, LIVER #### [facility] [address] [address] [address] Katrin Ceja LDL CALC NORMAL SEE BELOW Normal [facility] Comment on above: Result Comment: <100 mg/dl OPTIMAL 100 - 129 mg/dl NEAR OR ABOVE OPTIMAL 130 - 159 mg/dl BORDERLINE HIGH 160 - 189 mg/dl HIGH >190 mg/dl VERY HIGH Performed By: #### L IPID, LIVER #### [facility] [address] [address] [address] Katrin Ceja Triglyceride [Mass/Vol] 179 mg/dL Critically high <=150 [facility] Comment on above: Performed By: #### L IPID, LIVER #### [facility] [address] [address] [address] Katrin Ceja VLDL CALC 35.8 mg/dL Normal [facility] Comment on above: Performed By: #### L IPID, LIVER #### [facility] [address] [address] [address] Katrin Ceja LIVER PROFILEon 12-18-2021 Albumin [Mass/Vol] 3.6 g/dL Normal 3.4-5.0 [facility] Comment on above: Performed By: #### L IPID, LIVER #### [facility] [address] [address] [address] Katrin Ceja Albumin/Globulin [Mass ratio] 0.8 {ratio} Normal [facility] Comment on above: Performed By: #### L IPID, LIVER #### [facility] [address] [address] [address] Katrin Ceja ALP [Catalytic activity/Vol] 196 U/L Critically high 46-116 [facility] Comment on above: Performed By: #### L IPID, LIVER #### [facility] [address] [address] [address] Katrin Ceja ALT [Catalytic activity/Vol] 51 U/L Normal 14-59 [facility] Comment on above: Performed By: #### L IPID, LIVER #### [facility] [address] [address] [address] Katrin Ceja AST [Catalytic activity/Vol] 22 U/L Normal 15-37 [facility] Comment on above: Performed By: #### L IPID, LIVER #### [facility] [address] [address] [address] Katrin Ceja BILI, CONJUGATED 0.1 mg/dL Normal 0.0-0.[address] [facility] Comment on above: Performed By: #### L IPID, LIVER #### [facility] [address] [place] [address] Dr. Katrin Ceja Bilirubin [Mass/Vol] 0.4 mg/dL Normal 0.2-1.0 [facility] Comment on above: Performed By: #### L IPID, LIVER #### [facility] [address] [place] [address] Dr. Katrin Ceja Globulin (S) [Mass/Vol] 4.4 g/dL Normal [facility] Comment on above: Performed By: #### L IPID, LIVER #### [facility] [address] [place] [address] Dr. Katrin Ceja Protein [Mass/Vol] 8.0 g/dL Normal 6.4-8.2 [facility] Comment on above: Performed By: #### L IPID, LIVER #### [facility] [address] [place] [address] Dr. Katrin Ceja XR FOOT RT MIN [...] RIVER SAID Date: 2021-12-07 00:19 Normal [facility] PROF 14(COMP METB)on 022 Albumin [Mass/Vol] 3.6 g/dL Normal 3.4-5.0 [facility] Comment on above: Performed By: #### L IPID, CMP #### [facility] [address] [address] [address] Katrin Ceja Albumin/Globulin [Mass ratio] 0.8 {ratio} Normal [facility] Comment on above: Performed By: #### L IPID, CMP #### [facility] [address] [address] [address] Katrin Ceja ALP [Catalytic activity/Vol] 209 U/L Critically high 46-116 [facility] Comment on above: Performed By: #### L IPID, CMP #### [facility] [address] [address] [address] Katrin Ceja ALT [Catalytic activity/Vol] 65 U/L Critically high 14-59 [facility] Comment on above: Performed By: #### L IPID, CMP #### [facility] [address] [address] [address] Katrin Ceja Anion gap [Moles/Vol] 15.7 mmol/L Normal [facility] Comment on above: Performed By: #### L IPID, CMP #### [facility] [address] [address] [address] Katrin Ceja AST [Catalytic activity/Vol] 31 U/L Normal 15-37 [facility] Comment on above: Performed By: #### L IPID, CMP #### [facility] [address] [address] [address] Katrin Ceja Bilirubin [Mass/Vol] 0.2 mg/dL Normal 0.2-1.3 [facility] Comment on above: Performed By: #### L IPID, CMP #### [facility] [address] [address] [address] Katrin Ceja Calcium [Mass/Vol] 8.8 mg/dL Normal 8.5-10.1 [facility] Comment on above: Performed By: #### L IPID, CMP #### [facility] [address] [place] [address] Dr. Katrin Ceja Chloride [Moles/Vol] 105 mmol/L Normal 98-107 [facility] Comment on above: Performed By: #### L IPID, CMP #### [facility] [address] [place] [address] Dr. Katrin Ceja CO2 [Moles/Vol] 21.3 mmol/L Critically low 22.0-30.0 [facility] Comment on above: Performed By: #### L IPID, CMP #### [facility] [address] [place] [address] Dr. Katrin Ceja Creatinine [Mass/Vol] 0.72 mg/dL Normal 0.52-1.04 [facility] Comment on above: Performed By: #### L IPID, CMP #### [facility] [address] [place] [address] Dr. Katrin Ceja EGFR-AF ENGLISH >60 Normal >=[address] [facility] Comment on above: Performed By: #### L IPID, CMP #### [facility] [address] [place] [address] Dr. Katrin Ceja EGFR-NON AF ENGLISH >60 Normal >=60 [facility] Comment on above: Performed By: #### L IPID, CMP #### [facility] [address] [place] [address] Dr. Katrin Ceja Globulin (S) [Mass/Vol] 4.3 g/dL Normal [facility] Comment on above: Performed By: #### L IPID, CMP #### [facility] [address] [place] [address] Dr. Katrin Ceja Glucose [Mass/Vol] 99 mg/dL Normal 74-106 [facility] Comment on above: Performed By: #### L IPID, CMP #### [facility] [address] [place] [address] Dr. Katrin Ceja Potassium [Moles/Vol] 4.0 mmol/L Normal 3.4-5.0 [facility] Comment on above: Performed By: #### L IPID, CMP #### [facility] [address] [place] [address] Dr. Katrin Ceja Protein [Mass/Vol] 7.9 g/dL Normal 6.1-8.2 [facility] Comment on above: Performed By: #### L IPID, CMP #### [facility] [address] [place] [address] Dr. Katrin Ceja Sodium [Moles/Vol] 138 mmol/L Normal 137-145 [facility] Comment on above: Performed By: #### L IPID, CMP #### [facility] [address] [place] [address] Dr. Katrin Ceja Urea nitrogen [Mass/Vol] 13.0 mg/dL Normal 7.0-18.0 [facility] Comment on above: Performed By: #### L IPID, CMP #### [facility] [address] [place] [address] Dr. Katrin Ceja Urea nitrogen/Creatinine [Mass ratio] 18.1 mg/mg Normal [facility] Comment on above: Performed By: #### L IPID, CMP #### [facility] [address] [place] [address] Dr. Katrin Ceja XR HUMERUS RT MIN [...] MODESTA NAVA Date: 2021-10-17 01:46 Normal [facility] XR SHOULDER RT 2V or [...] MODESTA NAVA Date: 2021-10-17 01:45 Normal [facility] XR WRIST RT MIN 3 Von 2021 XR WRIST RT MIN 3 V EXAM: XR WRIST RT WI N 3 V HISTORY: Pain acute right arm pain following fall. COMPARISON: None. TECHNIQUE: AP, oblique and lateral views of the right wrist. FINDINGS: No acute or intrinsic osseous, articular or soft tissue abnormality is seen. IMPRESSION: No acute right wrist findings. Electronically authenticated by: MODESTA NAVA Date: 2021-10-17 01:44 Normal [facility] AMYLASEon 09-18-2021 Amylase [Catalytic activity/Vol] 34 U/L Normal 31-110 [facility] Comment on above: Performed By: #### P REG #### [facility] [address] [place] [address] Dr. Katrin Ceja CBC AUTO DIFFon 09-18-2021 BASO # 0.0 103/ul Normal 0.0-0.1 [facility] Comment on above: Performed By: #### C BC #### [facility] [address] [place] [address] Dr. Katrin Ceja Basophils/100 WBC (Bld) 0.3 % Normal 0.2-2.0 [facility] Comment on above: Performed By: #### C BC #### [facility] [address] [place] [address] Dr. Katrin Ceja EO # 0.2 103/ul Normal 0.0-0.7 [facility] Comment on above: Performed By: #### C BC #### [facility] [address] [place] [address] Dr. Katrin Ceja Eosinophils/100 WBC (Bld) 2.4 % Normal 0.9-7.0 [facility] Comment on above: Performed By: #### C BC #### [facility] [address] [place] [address] Dr. Katrin Ceja Erythrocyte distribution width (RBC) [Ratio] 12.5 % Normal 11.0-15.0 [facility] Comment on above: Performed By: #### C BC #### [facility] [address] [place] [address] Dr. Katrin Ceja Hematocrit (Bld) [Volume fraction] 37.4 % Normal 36.0-48.0 [facility] Comment on above: Performed By: #### C BC #### [facility] [address] [place] [address] Dr. Katrin Ceja Hemoglobin (Bld) [Mass/Vol] 12.3 g/dL Normal 12.0-16.0 [facility] Comment on above: Performed By: #### C BC #### [facility] [address] [address] [address] Katrin Ceja IG # 0.05 10e3/ul Critically high 0.00-0.03 [facility] Comment on above: Performed By: #### C BC #### [facility] [address] [place] [address] Dr. Katrin Ceja IG % 0.5 % Normal 0.0-0.5 [facility] Comment on above: Performed By: #### C BC #### [facility] [address] [place] [address] Dr. Katrin Ceja LYMPH # 3.1 103/ul Normal 1.2-3.8 [facility] Comment on above: Performed By: #### C BC #### [facility] [address] [place] [address] Dr. Katrin Ceja Lymphocytes/100 WBC (Bld) 31.7 % Normal 20.5-60.0 [facility] Comment on above: Performed By: #### C BC #### [facility] [address] [place] [address] Dr. Katrin Ceja MANUAL DIFF REQ NO Normal [facility] Comment on above: Performed By: #### C BC #### [facility] [address] [place] [address] Dr. Katrin Ceja MCH (RBC) [Entitic mass] 28.9 pg Normal 26.7-34.0 [facility] Comment on above: Performed By: #### C BC #### [facility] [address] [place] [address] Dr. Katrin Ceja MCHC (RBC) [Mass/Vol] 32.9 g/dL Normal 29.9-35.2 [facility] Comment on above: Performed By: #### C BC #### [facility] [address] [place] [address] Dr. Katrin Ceja MCV (RBC) [Entitic vol] 88.0 fL Normal 81.0-99.0 [facility] Comment on above: Performed By: #### C BC #### [facility] [address] [place] [address] Dr. Katrin Ceja MONO # 0.7 103/ul Normal 0.3-0.8 [facility] Comment on above: Performed By: #### C BC #### [facility] [address] [place] [address] Dr. Katrin Ceja Monocytes/100 WBC (Bld) 6.7 % Normal 1.7-12.0 [facility] Comment on above: Performed By: #### C BC #### [facility] [address] [place] [address] Dr. Katrin Ceja NEUT # 5.7 103/ul Normal 1.4-6.5 [facility] Comment on above: Performed By: #### C BC #### [facility] [address] [place] [address] Dr. Katrin Ceja Neutrophils/100 WBC (Bld) 58.4 % Normal 43.0-75.0 [facility] Comment on above: Performed By: #### C BC #### [facility] [address] [place] [address] Dr. Katrin Ceja Platelet mean volume (Bld) [Entitic vol] 8.8 fL Critically low 9.5-13.5 [facility] Comment on above: Performed By: #### C BC #### [facility] [address] [place] [address] Dr. Katrin Ceja PLT 265 103/ul Normal 150-450 [facility] Comment on above: Performed By: #### C BC #### [facility] [address] [place] [address] Dr. Katrin Ceja RBC 4.25 106/ul Normal 4.20-5.40 [facility] Comment on above: Performed By: #### C BC #### [facility] [address] [address] [address] Katrin Ceja WBC 9.7 103/ul Normal 4.0-11.0 [facility] Comment on above: Performed By: #### C BC #### [facility] [address] [id number] Katrin Ceja CT ABD/PELV W CONon [...] ISAIAH FAROOQ Date: 2021-09-18 03:51 Normal [facility] URINE PROFILEon 2 Bilirubin Ql (U) Negative Normal NEGATIVE [facility] Comment on above: Performed By: #### C BC #### [facility] [address] [address] [address] Katrin Ceja Clarity (U) CLEAR Normal CLEAR [facility] Comment on above: Performed By: #### C BC #### [facility] [address] [place] [address] Dr. Katrin Ceja Color (U) LT. YELLOW Normal YELLOW [facility] Comment on above: Performed By: #### C BC #### [facility] [address] [place] [address] Dr. Katrin Ceja ERUAHD A micrscopic examina tion will be performed if indicated. Normal [facility] Comment on above: Performed By: #### C BC #### [facility] [address] [place] [address] Dr. Katrin Ceja Glucose Ql (U) Negative Normal NEGATIVE [facility] Comment on above: Performed By: #### C BC #### [facility] [address] [place] [address] Dr. Katrin Ceja Hemoglobin Ql (U) SMALL Abnormal NEGATIVE [facility] Comment on above: Performed By: #### C BC #### [facility] [address] [place] [address] Dr. Katrin Ceja Ketones Ql (U) Negative Normal NEGATIVE [facility] Comment on above: Performed By: #### C BC #### [facility] [address] [place] [address] Dr. Katrin Ceja LEUKOCYTES Negative Normal NEGATIVE [facility] Comment on above: Performed By: #### C BC #### [facility] [address] [place] [address] Dr. Katrin Ceja Nitrite Ql (U) Negative Normal NEGATIVE [facility] Comment on above: Performed By: #### C BC #### [facility] [address] [place] [address] Dr. Katrin Ceja pH (U) 7.5 [pH] Normal 5-9 [facility] Comment on above: Performed By: #### C BC #### [facility] [address] [place] [address] Dr. Katrin Ceja SPEC GRAVITY 1.010 Normal 1.005-<=1. 025 [facility] Comment on above: Performed By: #### C BC #### [facility] [address] [place] [address] Dr. Katrin Ceja UA PROTEIN Negative Normal NEGATIVE/ TRACE [facility] Comment on above: Performed By: #### C BC #### [facility] [address] [place] [address] Dr. Katrin Ceja UR MICRO IND INDICATED Normal [facility] Comment on above: Performed By: #### C BC #### [facility] [address] [place] [address] Dr. Katrin eCja Urobilinogen Qn (U) 0.2 {Jeannie'U}/dL Normal 0.2 - 1. 0 [facility] Comment on above: Performed By: #### C BC #### [facility] [address] [place] [address] Dr. Katrin Ceja LIPASEon 09-18-2021 Lipase [Catalytic activity/Vol] 81.0 U/L Normal 23.0-300.0 [facility] Comment on above: Performed By: #### P REG #### [facility] [address] [place] [address] Dr. Katrin Ceja URon 09-18-2021 , QUAL Negative Normal NEGATIVE [facility] Comment on above: Performed By: #### C BC #### [facility] [address] [place] [address] Dr. Katrin Ceja PROF 14(COMP METB)on 022 Albumin [Mass/Vol] 3.2 g/dL Critically low 3.5-5.0 [facility] Comment on above: Performed By: #### P REG #### [facility] [address] [place] [address] Dr. Katrin Ceja Albumin/Globulin [Mass ratio] 0.8 {ratio} Normal [facility] Comment on above: Performed By: #### P REG #### [facility] [address] [place] [address] Dr. Katrin Ceja ALP [Catalytic activity/Vol] 216 U/L Critically high 38-126 [facility] Comment on above: Performed By: #### P REG #### [facility] [address] [address] [address] Katrin Ceja ALT [Catalytic activity/Vol] 109 U/L Critically high 9-52 [facility] Comment on above: Performed By: #### P REG #### [facility] [address] [address] [address] Katrin Ceja Anion gap [Moles/Vol] 10.5 mmol/L Normal [facility] Comment on above: Performed By: #### P REG #### [facility] [address] [address] [address] Katrin Ceja AST [Catalytic activity/Vol] 66 U/L Critically high 14-36 [facility] Comment on above: Performed By: #### P REG #### [facility] [address] [place] [address] Dr. Katrin Ceja Bilirubin [Mass/Vol] 0.2 mg/dL Normal 0.2-1.3 [facility] Comment on above: Performed By: #### P REG #### [facility] [address] [place] [address] Dr. Katrin Ceja Calcium [Mass/Vol] 8.3 mg/dL Critically low 8.4-10.2 [facility] Comment on above: Performed By: #### P REG #### [facility] [address] [address] [address] Katrin Ceja Chloride [Moles/Vol] 103 mmol/L Normal 98-107 [facility] Comment on above: Performed By: #### P REG #### [facility] [address] [address] [address] Katrin Ceja CO2 [Moles/Vol] 26.2 mmol/L Normal 22.0-30.[address] [facility] Comment on above: Performed By: #### P REG #### [facility] [address] [place] [address] Dr. Katrin Ceja Creatinine [Mass/Vol] 0.81 mg/dL Normal 0.52-1.04 [facility] Comment on above: Performed By: #### P REG #### [facility] [address] [address] [address] Katrin Ceja EGFR-AF ENGLISH >60 Normal >=[address] [facility] Comment on above: Performed By: #### P REG #### [facility] [address] [address] [address] Katrin Ceja EGFR-NON AF ENGLISH >60 Normal >=60 [facility] Comment on above: Performed By: #### P REG #### [facility] [address] [address] [address] Katrin Ceja Globulin (S) [Mass/Vol] 4.1 g/dL Normal [facility] Comment on above: Performed By: #### P REG #### [facility] [address] [place] [address] Dr. Katrin Ceja Glucose [Mass/Vol] 90 mg/dL Normal 74-106 [facility] Comment on above: Performed By: #### P REG #### [facility] [address] [place] [address] Dr. Katrin Ceja Potassium [Moles/Vol] 3.7 mmol/L Normal 3.4-5.0 [facility] Comment on above: Performed By: #### P REG #### [facility] [address] [place] [address] Dr. Katrni Ceja Protein [Mass/Vol] 7.3 g/dL Normal 6.1-8.2 [facility] Comment on above: Performed By: #### P REG #### [facility] [address] [place] [address] Dr. Katrin Ceja Sodium [Moles/Vol] 136 mmol/L Critically low 137-145 [facility] Comment on above: Performed By: #### P REG #### [facility] [address] [place] [address] Dr. Katrin Ceja Urea nitrogen [Mass/Vol] 5.0 mg/dL Critically low 7.0-17.0 [facility] Comment on above: Performed By: #### P REG #### [facility] [address] [place] [address] Dr. Katrin Ceja Urea nitrogen/Creatinine [Mass ratio] 6.2 mg/mg Normal [facility] Comment on above: Performed By: #### P REG #### [facility] [address] [place] [address] Dr. Katrin Ceja URINE MICROSCOPIC ONLYon BACTERIA NONE SEEN Normal NONE SEEN [facility] Comment on above: Performed By: #### C BC #### [facility] [address] [place] [address] Dr. Katrin Ceja Bacteria identified Cx Nom (U) NOT INDICATED Normal [facility] Comment on above: Performed By: #### C BC #### [facility] [address] [place] [address] Dr. Katrin Ceja CAST NONE SEEN Normal NONE SEEN [facility] Comment on above: Performed By: #### C BC #### [facility] [address] [place] [address] Dr. Katrin Ceja Crystals LM Nom (Urine sed) NONE SEEN Normal NONE SEEN [facility] Comment on above: Performed By: #### C BC #### [facility] [address] [place] [address] Dr. Katrin Ceja Epithelial cells LM Ql (Urine sed) FEW Abnormal NONE SEEN /RARE [facility] Comment on above: Performed By: #### C BC #### [facility] [address] [place] [address] Dr. Katrin Ceja MUCOUS NONE SEEN Normal NONE SEEN [facility] Comment on above: Performed By: #### C BC #### [facility] [address] [place] [address] Dr. Katrin Ceja RBC NONE SEEN Abnormal 0-2 [facility] Comment on above: Performed By: #### C BC #### [facility] [address] [place] [address] Dr. Katrin Ceja WBC NONE SEEN Normal NONE SEEN [facility] Comment on above: Performed By: #### C BC #### [facility] [address] [place] [address] Dr. Katrin Ceja XR ABD FLAT UP_PA [...] ISAIAH FAROOQ Date: 2021-09-18 02:00 Normal [facility] CBC AUTO DIFFon 07-18-2021 BASO # 0.0 103/ul Normal 0.0-0.1 [facility] Comment on above: Performed By: #### C BC #### [facility] [address] [place] [address] Dr. Katrin Ceja Basophils/100 WBC (Bld) 0.3 % Normal 0.2-2.0 [facility] Comment on above: Performed By: #### C BC #### [facility] [address] [place] [address] Dr. Katrin Ceja EO # 0.2 103/ul Normal 0.0-0.7 [facility] Comment on above: Performed By: #### C BC #### [facility] [address] [place] [address] Dr. Katrin Ceja Eosinophils/100 WBC (Bld) 1.7 % Normal 0.9-7.0 [facility] Comment on above: Performed By: #### C BC #### [facility] [address] [address] [address] Katrin Ceja Erythrocyte distribution width (RBC) [Ratio] 13.1 % Normal 11.0-15.0 [facility] Comment on above: Performed By: #### C BC #### [facility] [address] [place] [address] Dr. Katrin Ceja Hematocrit (Bld) [Volume fraction] 42.0 % Normal 36.0-48.0 [facility] Comment on above: Performed By: #### C BC #### [facility] [address] [place] [address] Dr. Katrin Ceja Hemoglobin (Bld) [Mass/Vol] 13.7 g/dL Normal 12.0-16.0 [facility] Comment on above: Performed By: #### C BC #### [facility] [address] [place] [address] Dr. Katrin Ceja IG # 0.07 10e3/ul Critically high 0.00-0.03 [facility] Comment on above: Performed By: #### C BC #### [facility] [address] [place] [address] Dr. Katrin Ceja IG % 0.6 % Critically high 0.0-0.5 [facility] Comment on above: Performed By: #### C BC #### [facility] [address] [place] [address] Dr. Katrin Ceja LYMPH # 2.9 103/ul Normal 1.2-3.8 [facility] Comment on above: Performed By: #### C BC #### [facility] [address] [place] [address] Dr. Katrin Ceja Lymphocytes/100 WBC (Bld) 27.1 % Normal 20.5-60.0 [facility] Comment on above: Performed By: #### C BC #### [facility] [address] [place] [address] Dr. Katrin Ceja MANUAL DIFF REQ NO Normal [facility] Comment on above: Performed By: #### C BC #### [facility] [address] [place] [address] Dr. Katrin Ceja MCH (RBC) [Entitic mass] 29.3 pg Normal 26.7-34.0 [facility] Comment on above: Performed By: #### C BC #### [facility] [address] [place] [address] Dr. Katrin Ceja MCHC (RBC) [Mass/Vol] 32.6 g/dL Normal 29.9-35.2 [facility] Comment on above: Performed By: #### C BC #### [facility] [address] [place] [address] Dr. Katrin Ceja MCV (RBC) [Entitic vol] 89.7 fL Normal 81.0-99.0 [facility] Comment on above: Performed By: #### C BC #### [facility] [address] [place] [address] Dr. Katrin Ceja MONO # 0.9 103/ul Critically high 0.3-0.8 [facility] Comment on above: Performed By: #### C BC #### [facility] [address] [place] [address] Dr. Katrin Ceja Monocytes/100 WBC (Bld) 8.2 % Normal 1.7-12.0 [facility] Comment on above: Performed By: #### C BC #### [facility] [address] [place] [address] Dr. Katrin Ceja NEUT # 6.7 103/ul Critically high 1.4-6.5 [facility] Comment on above: Performed By: #### C BC #### [facility] [address] [place] [address] Dr. Katrin Ceja Neutrophils/100 WBC (Bld) 62.1 % Normal 43.0-75.0 [facility] Comment on above: Performed By: #### C BC #### [facility] [address] [place] [address] Dr. Katrin Ceja Platelet mean volume (Bld) [Entitic vol] 9.7 fL Normal 9.5-13.5 [facility] Comment on above: Performed By: #### C BC #### [facility] [address] [place] [address] Dr. Katrin Ceja PLT 334 103/ul Normal 150-450 [facility] Comment on above: Performed By: #### C BC #### [facility] [address] [place], [place] [id number] Dr. Katrin Ceja RBC 4.68 106/ul Normal 4.20-5.40 [facility] Comment on above: Performed By: #### C BC #### [facility] [address] [place] [address] Dr. Katrin Ceja WBC 10.8 103/ul Normal 4.0-11.0 [facility] Comment on above: Performed By: #### C BC #### [facility] [address] [address] [address] Katrin Ceja GLYCOHEMOGLOBIN A1Con 2021 ADA RECOMMENDATION ADA THERAPEUTIC TARG ET 6.0 - 7.0 ACTION SUGGESTED > 7.0 Normal [facility] Comment on above: Performed By: #### C BC #### [facility] [address] [address] [address] Katrin Ceja Glucose [Mass/Vol] 105 mg/dL Normal [facility] Comment on above: Performed By: #### C BC #### [facility] [address] [address] [address] Katrin Ceja HbA1c (Bld) [Mass fraction] 5.3 % Normal <=6.0 [facility] Comment on above: Performed By: #### C BC #### [facility] [address] [place] [address] Dr. Katrin Ceja LIPID PROFILEon 07-18-2021 CHOL-HDL RATIO NORM SEE BELOW Normal [facility] Comment on above: Result Comment: 3.3 - 4.4 LOW RISK 4.4 - 7.1 AVERAGE RISK 7.1 - 11.0 MODERATE RISK >11.0 HIGH RISK Performed By: #### L IPID, CMP #### [facility] [address] [place] [address] Dr. Katrin Ceja Cholesterol [Mass/Vol] 302 mg/dL Critically high <=200 [facility] Comment on above: Performed By: #### L IPID, CMP #### [facility] [address] [place] [address] Dr. Katrin Ceja Cholesterol in HDL [Mass/Vol] 39 mg/dL Normal [facility] Comment on above: Performed By: #### L IPID, CMP #### [facility] [address] [place] [address] Dr. Katrin Ceja Cholesterol in LDL [Mass/Vol] 207.0 mg/dL Normal [facility] Comment on above: Performed By: #### L IPID, CMP #### [facility] [address] [place] [address] Dr. Katrin Ceja Cholesterol.total/Chol esterol in HDL [Mass ratio] 7.7 {ratio} Normal [facility] Comment on above: Performed By: #### L IPID, CMP #### [facility] [address] [address] [address] Katrin Ceja HDL NORMAL > or = 60 mg/dl - LO W CARDIOVASCULAR RISK <40 mg/dl - HIGH CARDIOVASCULAR RISK Normal [facility] Comment on above: Performed By: #### L IPID, CMP #### [facility] [address] [address] [address] Katrin Ceja LDL CALC NORMAL SEE BELOW Normal [facility] Comment on above: Result Comment: <100 mg/dl OPTIMAL 100 - 129 mg/dl NEAR OR ABOVE OPTIMAL 130 - 159 mg/dl BORDERLINE HIGH 160 - 189 mg/dl HIGH >190 mg/dl VERY HIGH Performed By: #### L IPID, CMP #### [facility] [address] [address] [address] Katrin Ceja Triglyceride [Mass/Vol] 280 mg/dL Critically high <=150 [facility] Comment on above: Performed By: #### L IPID, CMP #### [facility] [address] [place] [address] Dr. Katrin Ceja VLDL CALC 56.0 mg/dL Normal [facility] Comment on above: Performed By: #### L IPID, CMP #### [facility] [address] [place] [address] Dr. Katrin Ceja PROF 14(COMP METB)on 022 Albumin [Mass/Vol] 3.5 g/dL Normal 3.5-5.0 [facility] Comment on above: Performed By: #### L IPID, CMP #### [facility] [address] [place] [address] Dr. Katrin Ceja Albumin/Globulin [Mass ratio] 0.7 {ratio} Normal [facility] Comment on above: Performed By: #### L IPID, CMP #### [facility] [address] [place] [address] Dr. Katrin Ceja ALP [Catalytic activity/Vol] 291 U/L Critically high 38-126 [facility] Comment on above: Performed By: #### L IPID, CMP #### [facility] [address] [address] [address] Katrin Ceja ALT [Catalytic activity/Vol] 174 U/L Critically high 9-52 [facility] Comment on above: Performed By: #### L IPID, CMP #### [facility] [address] [address] [address] Katrin Ceja Anion gap [Moles/Vol] 15.3 mmol/L Normal [facility] Comment on above: Performed By: #### L IPID, CMP #### [facility] [address] [address] [address] Katrin Ceja AST [Catalytic activity/Vol] 97 U/L Critically high 14-36 [facility] Comment on above: Performed By: #### L IPID, CMP #### [facility] [address] [address] [address] Katrin Ceja Bilirubin [Mass/Vol] 0.4 mg/dL Normal 0.2-1.3 [facility] Comment on above: Performed By: #### L IPID, CMP #### [facility] [address] [place] [address] Dr. Katrin Ceja Calcium [Mass/Vol] 9.3 mg/dL Normal 8.4-10.2 [facility] Comment on above: Performed By: #### L IPID, CMP #### [facility] [address] [place] [address] Dr. Katrin Ceja Chloride [Moles/Vol] 99 mmol/L Normal 98-107 [facility] Comment on above: Performed By: #### L IPID, CMP #### [facility] [address] [address] [address] Katrin Ceja CO2 [Moles/Vol] 24.1 mmol/L Normal 22.0-30.[address] [facility] Comment on above: Performed By: #### L IPID, CMP #### [facility] [address] [address] [address] Katrin Ceja Creatinine [Mass/Vol] 0.65 mg/dL Normal 0.52-1.04 [facility] Comment on above: Performed By: #### L IPID, CMP #### [facility] [address] [place] [address] Dr. Katrin Ceja EGFR-AF ENGLISH >60 Normal >=[address] [facility] Comment on above: Performed By: #### L IPID, CMP #### [facility] [address] [address] [address] Katrin Ceja EGFR-NON AF ENGLISH >60 Normal >=60 [facility] Comment on above: Performed By: #### L IPID, CMP #### [facility] [address] [address] [address] Katrin Ceja Globulin (S) [Mass/Vol] 5.0 g/dL Normal [facility] Comment on above: Performed By: #### L IPID, CMP #### [facility] [address] [address] [address] Katrin Ceja Glucose [Mass/Vol] 86 mg/dL Normal 74-106 [facility] Comment on above: Performed By: #### L IPID, CMP #### [facility] [address] [place] [address] Dr. Katrin Ceja Potassium [Moles/Vol] 4.4 mmol/L Normal 3.4-5.0 [facility] Comment on above: Performed By: #### L IPID, CMP #### [facility] [address] [place] [address] Dr. Katrin Ceja Protein [Mass/Vol] 8.5 g/dL Critically high 6.1-8.2 [facility] Comment on above: Performed By: #### L IPID, CMP #### [facility] [address] [place] [address] Dr. Katrin Ceja Sodium [Moles/Vol] 134 mmol/L Critically low 137-145 [facility] Comment on above: Performed By: #### L IPID, CMP #### [facility] [address] [address] [address] Katrin Ceja Urea nitrogen [Mass/Vol] 8.0 mg/dL Normal 7.0-17.0 [facility] Comment on above: Performed By: #### L IPID, CMP #### [facility] [address] [place] [address] Dr. Katrin Ceja Urea nitrogen/Creatinine [Mass ratio] 12.3 mg/mg Normal [facility] Comment on above: Performed By: #### L IPID, CMP #### [facility] [address] [place] [address] Dr. Katrin Ceja AMYLASEon 05-01-2021 AMYL <30 Critically low 31-110 [facility] Comment on above: Performed By: #### P REG #### [facility] [address] [place] [address] Dr. Katrin Ceja CBC AUTO DIFFon 05-01-2021 BASO # 0.0 103/ul Normal 0.0-0.1 [facility] Comment on above: Performed By: #### L IPID, CMP #### [facility] [address] [place] [address] Dr. Katrin Ceja Basophils/100 WBC (Bld) 0.3 % Normal 0.2-2.0 [facility] Comment on above: Performed By: #### L IPID, CMP #### [facility] [address] [place] [address] Dr. Katrin Ceja EO # 0.1 103/ul Normal 0.0-0.7 [facility] Comment on above: Performed By: #### L IPID, CMP #### [facility] [address] [place] [address] Dr. Katrin Ceja Eosinophils/100 WBC (Bld) 0.4 % Critically low 0.9-7.0 [facility] Comment on above: Performed By: #### L IPID, CMP #### [facility] [address] [place] [address] Dr. Katrin Ceja Erythrocyte distribution width (RBC) [Ratio] 13.0 % Normal 11.0-15.0 [facility] Comment on above: Performed By: #### L IPID, CMP #### [facility] [address] [place] [address] Dr. Katrin Ceja Hematocrit (Bld) [Volume fraction] 37.7 % Normal 36.0-48.0 [facility] Comment on above: Performed By: #### L IPID, CMP #### [facility] [address] [place] [address] Dr. Katrin Ceja Hemoglobin (Bld) [Mass/Vol] 12.5 g/dL Normal 12.0-16.0 [facility] Comment on above: Performed By: #### L IPID, CMP #### [facility] [address] [place] [address] Dr. Katrin Ceja IG # 0.09 10e3/ul Critically high 0.00-0.03 [facility] Comment on above: Performed By: #### L IPID, CMP #### [facility] [address] [place] [address] Dr. Katrin Ceja IG % 0.6 % Critically high 0.0-0.5 [facility] Comment on above: Performed By: #### L IPID, CMP #### [facility] [address] [place] [address] Dr. Katrin Ceja LYMPH # 1.9 103/ul Normal 1.2-3.8 [facility] Comment on above: Performed By: #### L IPID, CMP #### [facility] [address] [place] [address] Dr. Katrin Ceja Lymphocytes/100 WBC (Bld) 12.1 % Critically low 20.5-60.0 [facility] Comment on above: Performed By: #### L IPID, CMP #### [facility] [address] [place] [address] Dr. Katrin Ceja MANUAL DIFF REQ NO Normal [facility] Comment on above: Performed By: #### L IPID, CMP #### [facility] [address] [place] [address] Dr. Katrin Ceja MCH (RBC) [Entitic mass] 28.8 pg Normal 26.7-34.0 [facility] Comment on above: Performed By: #### L IPID, CMP #### [facility] [address] [place] [address] Dr. Katrin Ceja MCHC (RBC) [Mass/Vol] 33.2 g/dL Normal 29.9-35.2 [facility] Comment on above: Performed By: #### L IPID, CMP #### [facility] [address] [place] [address] Dr. Katrin Ceja MCV (RBC) [Entitic vol] 86.9 fL Normal 81.0-99.0 [facility] Comment on above: Performed By: #### L IPID, CMP #### [facility] [address] [place] [address] Dr. Katrin Ceja MONO # 1.1 103/ul Critically high 0.3-0.8 [facility] Comment on above: Performed By: #### L IPID, CMP #### [facility] [address] [place] [address] Dr. Katrin Ceja Monocytes/100 WBC (Bld) 7.1 % Normal 1.7-12.0 [facility] Comment on above: Performed By: #### L IPID, CMP #### [facility] [address] [place] [address] Dr. Katrin Ceja NEUT # 12.3 103/ul Critically high 1.4-6.5 [facility] Comment on above: Performed By: #### L IPID, CMP #### [facility] [address] [place] [address] Dr. Katrin Ceja Neutrophils/100 WBC (Bld) 79.5 % Critically high 43.0-75.0 [facility] Comment on above: Performed By: #### L IPID, CMP #### [facility] [address] [place] [address] Dr. Katrin Ceja Platelet mean volume (Bld) [Entitic vol] 8.7 fL Critically low 9.5-13.5 [facility] Comment on above: Performed By: #### L IPID, CMP #### [facility] [address] [address] [address] Katrin Ceja PLT 329 103/ul Normal 150-450 [facility] Comment on above: Performed By: #### L IPID, CMP #### [facility] [address] [address] [address] Katrin Ceja RBC 4.34 106/ul Normal 4.20-5.40 [facility] Comment on above: Performed By: #### L IPID, CMP #### [facility] [address] [address] [address] Katrin Ceja WBC 15.5 103/ul Critically high 4.0-11.[address] [facility] Comment on above: Performed By: #### L IPID, CMP #### [facility] [address] [address] [address] ABD/PELV W CONon [...] by: HILDA RAHMAN Date: 2021-05-01 20:30 Normal [facility] LIPASEon 05-01-2021 Lipase [Catalytic activity/Vol] 64.0 U/L Normal 23.0-300.0 [facility] Comment on above: Performed By: #### P REG #### [facility] [address] [place] [address] Dr. Katrin Ceja LIVER PROFILEon 05-01-2021 Albumin [Mass/Vol] 3.3 g/dL Critically low 3.5-5.0 [facility] Comment on above: Performed By: #### L IPID, CMP #### [facility] [address] [place] [address] Dr. Katrin Ceja Albumin/Globulin [Mass ratio] 0.6 {ratio} Normal [facility] Comment on above: Performed By: #### L IPID, CMP #### [facility] [address] [place] [address] Dr. Katrin Ceja ALP [Catalytic activity/Vol] 412 U/L Critically high 38-126 [facility] Comment on above: Performed By: #### L IPID, CMP #### [facility] [address] [place] [address] Dr. Katrin Ceja ALT [Catalytic activity/Vol] 124 U/L Critically high 9-52 [facility] Comment on above: Performed By: #### L IPID, CMP #### [facility] [address] [place] [address] Dr. Katrin Ceja AST [Catalytic activity/Vol] 61 U/L Critically high 14-36 [facility] Comment on above: Performed By: #### L IPID, CMP #### [facility] [address] [place] [address] Dr. Katrin Ceja BILI, CONJUGATED 0.2 mg/dL Normal 0.0-0.[address] [facility] Comment on above: Performed By: #### L IPID, CMP #### [facility] [address] [place] [address] Dr. Katrin Ceja Bilirubin [Mass/Vol] 0.4 mg/dL Normal 0.2-1.3 [facility] Comment on above: Performed By: #### L IPID, CMP #### [facility] [address] [place] [address] Dr. Katrin Ceja Globulin (S) [Mass/Vol] 5.1 g/dL Normal [facility] Comment on above: Performed By: #### L IPID, CMP #### [facility] [address] [place] [address] Dr. Katrin Ceja Protein [Mass/Vol] 8.4 g/dL Critically high 6.1-8.2 [facility] Comment on above: Performed By: #### L IPID, CMP #### [facility] [address] [place] [address] Dr. Katrin Ceja PREG HCG QUALon 05-01-2021 , QUAL Negative Normal NEGATIVE [facility] Comment on above: Performed By: #### P REG #### [facility] [address] [place] [address] Dr. Katrin Ceja PROF CHEM 8 (BAS METB)on Anion gap [Moles/Vol] 17.1 mmol/L Normal [facility] Comment on above: Performed By: #### P REG #### [facility] [address] [place] [address] Dr. Katrin Ceja Calcium [Mass/Vol] 8.9 mg/dL Normal 8.4-10.2 [facility] Comment on above: Performed By: #### P REG #### [facility] [address] [address] [address] Katrin Ceja Chloride [Moles/Vol] 100 mmol/L Normal 98-107 [facility] Comment on above: Performed By: #### P REG #### [facility] [address] [address] [address] Katrin Ceja CO2 [Moles/Vol] 21.1 mmol/L Critically low 22.0-30.0 [facility] Comment on above: Performed By: #### P REG #### [facility] [address] [address] [address] Katrin Ceja Creatinine [Mass/Vol] 0.78 mg/dL Normal 0.52-1.04 [facility] Comment on above: Performed By: #### P REG #### [facility] [address] [place] [address] Dr. Katrin Ceja EGFR-AF ENGLISH >60 Normal >=[address] [facility] Comment on above: Performed By: #### P REG #### [facility] [address] [place] [address] Dr. Katrin Ceja EGFR-NON AF ENGLISH >60 Normal >=60 [facility] Comment on above: Performed By: #### P REG #### [facility] [address] [place] [address] Dr. Katrin Ceja Glucose [Mass/Vol] 97 mg/dL Normal 74-106 [facility] Comment on above: Performed By: #### P REG #### [facility] [address] [address] [address] Katrin Ceja Potassium [Moles/Vol] 4.2 mmol/L Normal 3.4-5.0 [facility] Comment on above: Performed By: #### P REG #### [facility] [address] [place] [address] Dr. Katrin Ceja Sodium [Moles/Vol] 134 mmol/L Critically low 137-145 [facility] Comment on above: Performed By: #### P REG #### [facility] [address] [place] [address] Dr. Katrin Ceja Urea nitrogen [Mass/Vol] 6.0 mg/dL Critically low 7.0-17.0 [facility] Comment on above: Performed By: #### P REG #### [facility] [address] [place] [address] Dr. Katrin Ceja Urea nitrogen/Creatinine [Mass ratio] 7.7 mg/mg Normal [facility] Comment on above: Performed By: #### P REG #### [facility] [address] [place] [address] Dr. Katrin Ceja CBC AUTO DIFFon 04-29-2021 BASO # 0.1 103/ul Normal 0.0-0.1 [facility] Comment on above: Performed By: #### L IPID, CMP #### [facility] [address] [place] [address] Dr. Katrin Ceja Basophils/100 WBC (Bld) 0.4 % Normal 0.2-2.0 [facility] Comment on above: Performed By: #### L IPID, CMP #### [facility] [address] [place] [address] Dr. Katrin Ceja EO # 0.2 103/ul Normal 0.0-0.7 [facility] Comment on above: Performed By: #### L IPID, CMP #### [facility] [address] [place] [address] Dr. Katrin Ceja Eosinophils/100 WBC (Bld) 1.7 % Normal 0.9-7.0 [facility] Comment on above: Performed By: #### L IPID, CMP #### [facility] [address] [place] [address] Dr. Katrin Ceja Erythrocyte distribution width (RBC) [Ratio] 12.9 % Normal 11.0-15.0 [facility] Comment on above: Performed By: #### L IPID, CMP #### [facility] [address] [place] [address] Dr. Katrin Ceja Hematocrit (Bld) [Volume fraction] 39.0 % Normal 36.0-48.0 [facility] Comment on above: Performed By: #### L IPID, CMP #### [facility] [address] [address] [address] Katrin Ceja Hemoglobin (Bld) [Mass/Vol] 12.9 g/dL Normal 12.0-16.0 [facility] Comment on above: Performed By: #### L IPID, CMP #### [facility] [address] [place] [address] Dr. Katrin Ceja IG # 0.08 10e3/ul Critically high 0.00-0.03 [facility] Comment on above: Performed By: #### L IPID, CMP #### [facility] [address] [place] [address] Dr. Katrin Ceja IG % 0.6 % Critically high 0.0-0.5 [facility] Comment on above: Performed By: #### L IPID, CMP #### [facility] [address] [place] [address] Dr. Katrin Ceja LYMPH # 3.2 103/ul Normal 1.2-3.8 [facility] Comment on above: Performed By: #### L IPID, CMP #### [facility] [address] [place] [address] Dr. Katrin Ceja Lymphocytes/100 WBC (Bld) 24.4 % Normal 20.5-60.0 [facility] Comment on above: Performed By: #### L IPID, CMP #### [facility] [address] [place] [address] Dr. Katrin Ceja MANUAL DIFF REQ NO Normal [facility] Comment on above: Performed By: #### L IPID, CMP #### [facility] [address] [place] [address] Dr. Katrin Ceja MCH (RBC) [Entitic mass] 29.1 pg Normal 26.7-34.0 [facility] Comment on above: Performed By: #### L IPID, CMP #### [facility] [address] [place] [address] Dr. Katrin Ceja MCHC (RBC) [Mass/Vol] 33.1 g/dL Normal 29.9-35.2 [facility] Comment on above: Performed By: #### L IPID, CMP #### [facility] [address] [place] [address] Dr. Katrin Ceja MCV (RBC) [Entitic vol] 88.0 fL Normal 81.0-99.0 [facility] Comment on above: Performed By: #### L IPID, CMP #### [facility] [address] [place] [address] Dr. Katrin Ceja MONO # 1.2 103/ul Critically high 0.3-0.8 [facility] Comment on above: Performed By: #### L IPID, CMP #### [facility] [address] [place] [address] Dr. Katrin Ceja Monocytes/100 WBC (Bld) 9.2 % Normal 1.7-12.0 [facility] Comment on above: Performed By: #### L IPID, CMP #### [facility] [address] [place] [address] Dr. Katrin Ceja NEUT # 8.3 103/ul Critically high 1.4-6.5 [facility] Comment on above: Performed By: #### L IPID, CMP #### [facility] [address] [place] [address] Dr. Katrin Ceja Neutrophils/100 WBC (Bld) 63.7 % Normal 43.0-75.0 [facility] Comment on above: Performed By: #### L IPID, CMP #### [facility] [address] [place] [address] Dr. Katrin Ceja Platelet mean volume (Bld) [Entitic vol] 9.2 fL Critically low 9.5-13.5 [facility] Comment on above: Performed By: #### L IPID, CMP #### [facility] [address] [place] [address] Dr. Katrin Ceja PLT 384 103/ul Normal 150-450 [facility] Comment on above: Performed By: #### L IPID, CMP #### [facility] [address] [place] [address] Dr. Katrin Ceja RBC 4.43 106/ul Normal 4.20-5.40 [facility] Comment on above: Performed By: #### L IPID, CMP #### [facility] [address] [place], [place] [address] Dr. Katrin Ceja WBC 13.1 103/ul Critically high 4.0-11.[address] [facility] Comment on above: Performed By: #### L IPID, CMP #### [facility] [address] [place], [place] [address] ABD/PELV W CONon [...] by: Lorenzo LAN Date: 2021-04-29 02:49 Normal [facility] LACTATE/LACTIC ACIDon 2020 Lactate [Moles/Vol] 1.2 mmol/L Normal 0.7-2.0 [facility] Comment on above: Performed By: #### C BC #### [facility] [address] [place] [address] Dr. Katrin Ceja PROF 14(COMP METB)on 021 Albumin [Mass/Vol] 3.4 g/dL Critically low 3.5-5.0 [facility] Comment on above: Performed By: #### C BC #### [facility] [address] [place] [address] Dr. Katrin Ceja Albumin/Globulin [Mass ratio] 0.7 {ratio} Normal [facility] Comment on above: Performed By: #### C BC #### [facility] [address] [place] [address] Dr. Katrin Ceja ALP [Catalytic activity/Vol] 359 U/L Critically high 38-126 [facility] Comment on above: Performed By: #### C BC #### [facility] [address] [place] [address] Dr. Katrin Ceja ALT [Catalytic activity/Vol] 193 U/L Critically high 9-52 [facility] Comment on above: Performed By: #### C BC #### [facility] [address] [place] [address] Dr. Katrin Ceja Anion gap [Moles/Vol] 13.3 mmol/L Normal [facility] Comment on above: Performed By: #### C BC #### [facility] [address] [place] [address] Dr. Katrin Ceja AST [Catalytic activity/Vol] 115 U/L Critically high 14-36 [facility] Comment on above: Performed By: #### C BC #### [facility] [address] [address] [address] Katrin Ceja Bilirubin [Mass/Vol] 0.5 mg/dL Normal 0.2-1.3 [facility] Comment on above: Performed By: #### C BC #### [facility] [address] [address] [address] Katrin Ceja Calcium [Mass/Vol] 9.5 mg/dL Normal 8.4-10.2 [facility] Comment on above: Performed By: #### C BC #### [facility] [address] [address] [address] Katrin Ceja Chloride [Moles/Vol] 101 mmol/L Normal 98-107 [facility] Comment on above: Performed By: #### C BC #### [facility] [address] [place] [address] Dr. Katrin Ceja CO2 [Moles/Vol] 23.7 mmol/L Normal 22.0-30.[address] [facility] Comment on above: Performed By: #### C BC #### [facility] [address] [place] [address] Dr. Katrin Ceja Creatinine [Mass/Vol] 0.83 mg/dL Normal 0.52-1.04 [facility] Comment on above: Performed By: #### C BC #### [facility] [address] [place] [address] Dr. Katrin Ceja EGFR-AF ENGLISH >60 Normal >=60 [facility] Comment on above: Performed By: #### C BC #### [facility] [address] [place] [address] Dr. Katrin Ceja EGFR-NON AF ENGLISH >60 Normal >=60 [facility] Comment on above: Performed By: #### C BC #### [facility] [address] [place] [address] Dr. Katrin Ceja Globulin (S) [Mass/Vol] 5.1 g/dL Normal [facility] Comment on above: Performed By: #### C BC #### [facility] [address] [address] [address] Katrin Ceja Glucose [Mass/Vol] 102 mg/dL Normal 74-106 [facility] Comment on above: Performed By: #### C BC #### [facility] [address] [address] [address] Katrin Ceja Potassium [Moles/Vol] 4.0 mmol/L Normal 3.4-5.0 [facility] Comment on above: Performed By: #### C BC #### [facility] [address] [address] [address] Katrin Ceja Protein [Mass/Vol] 8.5 g/dL Critically high 6.1-8.2 [facility] Comment on above: Performed By: #### C BC #### [facility] [address] [address] [address] Katrin Ceja Sodium [Moles/Vol] 134 mmol/L Critically low 137-145 [facility] Comment on above: Performed By: #### C BC #### [facility] [address] [address] [address] Katrin Ceja Urea nitrogen [Mass/Vol] 6.0 mg/dL Critically low 7.0-17.0 [facility] Comment on above: Performed By: #### C BC #### [facility] [address] [address] [address] Katrin Ceja Urea nitrogen/Creatinine [Mass ratio] 7.2 mg/mg Normal [facility] Comment on above: Performed By: #### C BC #### [facility] [address] [address] [address] Katrin Ceja XR CHEST 1 Von [...] HILDA GU Date: 2021-04-28 23:45 Normal [facility] Acetaminophen (Tylenol) Leve kit 03-22-2019 Acetaminophen [Mass/Vol] <10 Normal 10.0-30.0 [facility] Comment on above: Performed By: #### 1 4581-3, 11700-7, 56773-9, 76237-8l6, 76818-9, 98057-4 #### [facility] [address] [place], [place] Alcohol (Ethanol) Levelon Ethanol [Mass/Vol] mg/dL Normal 0.00-0.00 [facility] Comment on above: Performed By: #### 1 4581-3, 32972-8, 16639-3, 37247-6t8, 36084-0, 36746-9 #### [facility] [address] [place], [place] CBC with Differentialon Basophils (Bld) [#/Vol] 0.10 thou/mcL Normal 0.00-0.20 [facility] Comment on above: Performed By: #### 5 7021-8 #### [facility] [address] [place], [place] Basophils/100 WBC (Bld) 0.7 % Normal 0.0-2.0 [facility] Comment on above: Performed By: #### 5 7021-8 #### [address] [place], [place] Eosinophils (Bld) [#/Vol] 0.40 thou/mcL Normal 0.00-0.70 [facility] Comment on above: Performed By: #### 5 7021-8 #### [facility] [address] [place], [place] Eosinophils/100 WBC (Bld) 3.7 % Normal 0.0-7.0 [facility] Comment on above: Performed By: #### 5 7021-8 #### [facility] [address] [place], [place] Erythrocyte distribution width (RBC) [Entitic vol] 12.6 % Normal 11.0-14.8 [facility] Comment on above: Performed By: #### 5 7021-8 #### [facility] [address] [place], [place] Hematocrit (Bld) [Volume fraction] 38.5 % Normal 35.0-45.0 [facility] Comment on above: Performed By: #### 5 7021-8 #### [facility] [address] [place], [place] Hemoglobin (Bld) [Mass/Vol] 13.3 g/dL Normal 12.0-16.0 [facility] Comment on above: Performed By: #### 5 7021-8 #### [facility] [address] [place] [address] Lymphocytes (Bld) [#/Vol] 3.10 thou/mcL Normal 1.00-4.80 [facility] Comment on above: Performed By: #### 5 7021-8 #### [address] Lymphocytes/100 WBC (Bld) 30.1 % Normal 22.0-44.0 [facility] Comment on above: Performed By: #### 5 7021-8 #### [address] MCH (RBC) [Entitic mass] 30.8 Picograms Normal 27.0-34.0 [facility] Comment on above: Performed By: #### 5 7021-8 #### [address] MCHC (RBC) [Mass/Vol] 34.7 g/dL Normal 32.0-36.0 [facility] Comment on above: Performed By: #### 5 7021-8 #### [facility] [address] [place], [place] MCV (RBC) [Entitic vol] 88.8 fL Normal 80.0-97.0 [facility] Comment on above: Performed By: #### 5 7021-8 #### [facility] [address] [place], [place] Monocytes (Bld) [#/Vol] 1.10 thou/mcL High 0.00-0.90 [facility] Comment on above: Performed By: #### 5 7021-8 #### [facility] [address] [place], [place] Monocytes/100 WBC (Bld) 10.4 % Normal 0.0-12.0 [facility] Comment on above: Performed By: #### 5 7021-8 #### [facility] [address] [place] Neutrophils (Bld) [#/Vol] 5.60 thou/mcL Normal 1.80-7.70 [facility] Comment on above: Performed By: #### 7021-8 #### [facility] [address] [place], [place] Neutrophils/100 WBC (Bld) 55.1 % Normal 40.0-70.0 [facility] Comment on above: Performed By: #### 7021-8 #### [facility] [address] [place], [place] Platelet mean volume (Bld) [Entitic vol] 7.5 fL Normal 6.2-12.1 [facility] Comment on above: Performed By: #### 7021-8 #### [facility] Platelets (Bld) [#/Vol] 280 thou/mcL Normal 142-424 [facility] Comment on above: Performed By: #### 5 7021-8 #### [facility] [address] [place], [place] RBC (Bld) [#/Vol] 4.33 million/mcL Normal 3.80-5.10 [facility] Comment on above: Performed By: #### 5 7021-8 #### [facility] [address] [place], [place] WBC (Bld) [#/Vol] 10.2 thou/mcL Normal 4.6-10.2 [facility] Comment on above: Performed By: #### 5 7021-8 #### [facility] [address] [place], [place] Comprehensive Metabolic Pane kit 03-22-2019 Albumin [Mass/Vol] 4.2 g/dL Normal 3.5-4.8 [facility] Comment on above: Performed By: #### 1 4581-3, 85629-1, 85492-8, 81917-4i8, 86117-2, 56350-8 #### [facility] [address] [place], [place] ALP [Catalytic activity/Vol] 96 Units/L High 32-91 [facility] Comment on above: Performed By: #### 1 4581-3, 46006-2, 70862-7, 91361-8u1, 78670-9, 52864-9 #### [address] [place], [place] ALT [Catalytic activity/Vol] 25 Units/L Normal 14-63 [facility] Comment on above: Performed By: #### 1 4581-3, 38455-4, 03914-7, 16213-2r3, 24372-3, 35208-9 #### [facility] [address] [place] Anion gap [Moles/Vol] 9.0 mmol/L Normal 6.0-18.0 [facility] Comment on above: Performed By: #### 1 4581-3, 79423-2, 39894-2, 42686-1q7, 80627-2, 84380-2 #### [facility] [address] [place] AST [Catalytic activity/Vol] 24 Units/L Normal 15-41 [facility] Comment on above: Performed By: #### 1 4581-3, 85842-6, 29447-6, 36038-8n0, 17046-3, 14191-9 #### [facility] [address] [place] Bilirubin [Mass/Vol] 0.5 mg/dL Normal 0.3-1.2 [facility] Comment on above: Performed By: #### 1 4581-3, 96995-7, 76281-5, 46728-2g7, 76979-9, 16851-8 #### [facility] [address] [place], [place] Calcium [Mass/Vol] 8.9 mg/dL Normal 8.9-10.3 [facility] Comment on above: Performed By: #### 1 4581-3, 08874-9, 14847-7, 45288-5o2, 01916-6, 95696-1 #### [facility] [address] [place], [place] Chloride [Moles/Vol] 107 mmol/L Normal 98-107 [facility] Comment on above: Performed By: #### 1 4581-3, 42687-6, 90398-0, 02353-1o2, 81514-1, 77542-0 #### [facility] [address] [place], [place] CO2 [Moles/Vol] 23 mmol/L Normal 22-32 [facility] Comment on above: Performed By: #### 1 4581-3, 46340-8, 50004-8, 72886-6i9, 41693-1, 84422-4 #### [facility] [address] [place], [place] Creatinine [Mass/Vol] 0.68 mg/dL Normal 0.60-1.30 [facility] Comment on above: Performed By: #### 1 4581-3, 95792-9, 64459-3, 83367-4k2, 26256-2, 54993-5 #### [facility] [address] [place], [place] Glucose [Mass/Vol] 90 mg/dL Normal 70-99 [facility] Comment on above: Result Comment: U pdated ADA Reference Range A normal fasting glucose concentration is less than 100 mg/dL. An impaired fasting glucose concentration is 100-125 mg/dL. A provisional diagnosis of diabetes mellitus can be made when a fasting glucose concentration is greater than 125 mg/dL. Performed By: #### 1 4581-3, 78986-3, 62267-1, 98735-8y2, 24338-8, 99905-8 #### [facility] [address] [place], [place] Potassium [Moles/Vol] 3.4 mmol/L Low 3.6-5.1 [facility] Comment on above: Performed By: #### 1 4581-3, 78836-7, 06400-5, 75779-0h7, 10073-2, 61054-1 #### [facility] [address] [place], [place] Protein [Mass/Vol] 7.4 g/dL Normal 6.1-7.9 [facility] Comment on above: Performed By: #### 1 4581-3, 04340-2, 06718-4, 47754-7i8, 36354-2, 85368-1 #### [facility] [address] [place], [place] Sodium [Moles/Vol] 139 mmol/L Normal 136-145 [facility] Comment on above: Performed By: #### 1 4581-3, 41287-1, 02531-4, 21573-5s8, 72514-9, 19640-3 #### [facility] [address] [place], [place] Urea nitrogen (BldV) [Mass/Vol] 17 mg/dL Normal 8-20 [facility] Comment on above: Performed By: #### 1 4581-3, 66424-4, 09162-5, 10384-1i4, 79307-9, 23250-1 #### [facility] [address] [place], [place] Drug Abuse Screen 8 Urineon 03-22-2019 Barbiturates Screen Ql (U) Negative Normal [facility] Comment on above: Performed By: #### 1 2286-1 #### [facility] [address] [place], [place] Amphetamines Ql (U) Positive Abnormal [facility] Comment on above: Result Comment: Conf irmatory testing available upon request. Performed By: #### 1 2286-1 #### [facility] [address] [place] [address] Benzodiazepines cutoff Screen (U) [Mass/Vol] Negative Normal [facility] Comment on above: Performed By: #### 1 2286-1 #### [facility] [address] [place], [place] Cocaine Ql (U) Positive Abnormal [facility] Comment on above: Result Comment: Conf irmatory testing available upon request. Performed By: #### 1 2286-1 #### [facility] [address] [place] Interpretation and review of laboratory results Negative Normal [facility] Comment on above: Performed By: #### 1 2286-1 #### [facility] [address] [place], [place] Methadone Screen Ql (U) Negative Normal NEGATIVE-N EGATIVE [facility] Comment on above: Performed By: #### 1 2286-1 #### [facility] [address] [place], [place] Opiates Screen Ql (U) Negative Normal [facility] Comment on above: Result Comment: INTE [...] ONLY. Performed By: #### 1 2286-1 #### [facility] [address] [place], [place] Tetrahydrocannabinol Screen Ql (U) Positive Abnormal [facility] Comment on above: Result Comment: Conf irmatory testing available upon request. Performed By: #### 1 2286-1 #### [facility] [address] [place], [place] ED Pat Eduon 03-22-2019 ED Pat [facility] [address] [place], [place] [address] Emergency Department Discharge Instructions JENNIFER AGUILLON , Please provide this information to your Primary Care/Specialist Name : JENNIFER AGUILLON Current Date : 03/22/2019 19:32:22 : 1995 Primary Care Physician : Physician, No PCP Diagnosis: Follow-Up Instructions: JENNIFER AGUILLON has been given these follow-up instructions: Laboratory [...] de los Servicios de Emergencia Name JENNIFER AGUILLON MRN ([facility])-[id number] PLEASE READ THE FOLLOWING REGARDING YOUR MEDICATIONS [...] doses are changed, or new medications (including tjnv-ofn-zqfsgol products) are added. If you have any [...] UNTIL YOU TALK TO YOUR DOCTOR None [address] [address] Emergency Department Discharge Instructions Name: JENNIFER AGUILLON Current Date: 03/22/2019 19:32:22 : 1995 Primary Physician: Physician, No PCP We would like to thank you for choosing [facility] for your emergency medical needs. We [...] and the health of those around you. [facility] offers many resources to help with smoking cessation. Call the [facility] Tobacco Quit Line at 0-168-VFAFNOW ( ). High blood pressure: Your screening [...] deadly infections. Discuss this with your child's hydrostatic tubing tester, or Public Health Department. Your family practice doctor can determine if you need pneumonia or flu vaccine. The [facility] Department can be reached at . Substance Abuse Program: Concerns with addiction to alcohol, benzodiazepines (Ativan or Xanax) and Opiates (Heroin, Percocet, OxyContin, Methadone or Fentanyl)? [facility] offers an inpatient Substance Abuse Program to help treat the symptoms associated with medical detoxification of addictive substances. The new program offers care for non- adults (18 and older) looking to break the chain to addictive chemicals. The Substance Abuse Program is a voluntary inpatient admission and it starts with a pre-screening phone call to a criminal justice social worker. During the call, goals and objectives for recovery and how the patient will transition to outpatient care will be established. Please call [phone] to get help today. Domestic Violence: If you are a victim of domestic violence (physical, verbal, or emotional), you are not alone. Discuss this with your physician or a friend and call the [place] Domestic Violence Hotline or [place] Domestic Violence Hotline for assistance and support. [...] physician, call the Physician Referral Line at [phone] [phone]-JOIZ ([phone]). Suicide Hotline: Your mental and emotional well-being is important. If you are in a mental health crisis or are having thoughts of suicide, please call the nationwide suicide hotline, anytime day or night, at 1-911-290-YPVY (7767). Community Plant Clerk: You may be contacted by your local fire department for a follow up visit from a community mailroom supervisor. The community mailroom supervisor can help with a home safety check; follow up care, and general home care management. Pharmacy Information: Below is a list of 24 hour pharmacies that we are aware of. We suggest that you call the specific pharmacy for their hours before traveling to a location. Hours may vary on holidays. [facility] [address] [place], [place] [phone] [address] [place], [place] [address] [phone] [address] [place], [place] [address] [phone] [address] [place], [place] [phone] [address] [place], [place] [phone] [address] [place], [place] [phone] [place] [address] [phone] Take all medications as directed. If you need prescription assistance, contact the following agencies: ?? [facility] for Prescription Assistance at or www.pparx.org ?? [facility] at or www.Fidelisstrx.org ?? www.Candid ioRGlobal CIO.Mobilitus is a site with many valuable coupons Patient Education Materials JENNIFER AGUILLON has been given the following patient education materials: <><><><><><><><><><><><>< ><><><><><><><><><><><><> <> Patient Visit Summary Signature JENNIFER AGUILLON has been given the following list of patient education materials, prescriptions and follow-up instructions: ONIEL Siddiqui MARIAH E, have received the above patient education materials/instructions and have verbalized understanding: Date Time Patient Signature Date Time Provider Signature Normal [facility] GFRaaon 03-22-2019 GFR/1.73 sq M predicted among blacks MDRD (S/P/Bld) [Vol rate/Area] mL/min/{1.73_m2} Normal [facility] Comment on above: Result Comment: The MDRD equation has not been validated for those over 70 years, women, patients with serious co-morbid conditions, or with extremes of body size, muscle mass of nutritional status. Performed By: #### 1 4581-3, 23450-1, 81873-0, 97336-2c3, 92106-2, 74120-6 #### [facility] [address], [place] GFRbbon 03-22-2019 GFR/1.73 sq M predicted among non-blacks MDRD (S/P/Bld) [Vol rate/Area] mL/min/{1.73_m2} Normal [facility] Comment on above: Performed By: #### 1 4581-3, 45799-9, 60174-9, 97155-8g2, 05617-1, 43368-7 #### [facility] [address], [place] Test Urineon 03-22 HCG ( test) Ql (U) Negative Normal [facility] Comment on above: Performed By: #### 2 106-3 #### [facility], [address] [place] [address] Salicylate Levelon 9 Salicylates [Mass/Vol] mg/dL Normal 2.8-30.0 Mo [facility] Comment on above: Performed By: #### 1 4581-3, 99441-5, 58546-9, 98073-0u2, 45183-8, 39558-5 #### [address] Medication Managementon 10-0 Medication Management [id number]#1.00OTGTIF F Normal [facility] ED Clinical Summaryon 2017 ED Clinical Summary [facility] - Emergency [address] [place] [address] [id number] ed Clinical SummaryPERSON INFORMATIONName: JENNIFER AGUILLON Age: 22 Years Sex: FEMALEDOB: [birth year] MRN: Acct#:Visit Reason: Dental pain; Dental pain; DENTAL PAIN Arrival: 04/11/18 20:21:00 Discharge: 04/11/18 20:55:00LOS: 000 00:34 Check In: 04/11/18 20:21:00 Checkout:04/11/18 20:55:00Address:[address] [facility] [address]XSD: FURLONG, DENNISPROVIDER INFORMATIONProvider Role Assigned UnassignedAlistair Max MD ED Provider 04/11/18 20:21:45GlMary Jane west ED Nurse 04/11/18 20:35:44VITALS INFORMATIONVital Sign Triage LatestTemperature TympanicTemperature Temporal ArteryPulse Rate 95 bpm 95 bpmO2 Sat 98 % 98 %Respiratory Rate 18 br/min 18 br/minBlood Pressure 134 mmHg/89 mmHg 134 mmHg/89 mmHgMEDICAL INFORMATIONMedications Given:Medication Dose Routeamoxicillin 1000 mg POtramadol 50 mg POAllergy Information:Latex Allergy; sulfa drugs; ibuprofenPHYSICIAN DOCUMENTATIONPatient: JENNIFER AGUILLON : 22 years Sex: FEMALE : [birth year]Associated Diagnoses: Dental caries; Pain, dentalAuthor: Alistair Max MDBasic InformationTime seen: Date & time 04/11/18 20:29:00.Dental caries, dental painHistory of Present Gapllqv43-sccp-pzl white female presents to the emergency room [...] her poor dental state..Impression and PlanDiagnosisDental caries (MUR67-IU K02.9, Discharge, Medical)Pain, dental (CPN00-RS K08.89, Discharge, Medical)PlanCondition: Improved, Stable.Disposition: Discharged: to home.Prescriptions: Launch prescriptionsPharmacy:tra MADol 50 mg oral tablet (Prescribe): 50 mg = 1 tab(s), PO, q4hr, PRN: as needed for pain, 12 tab(s), 0 Refill(s)amoxicillin 500 mg oral capsule (Prescribe): 1,000 mg = 2 cap(s), PO, BID, 40 cap(s), 0 Refill(s).Patient was given the following educational materials: Dental Pain, Lkdq-pm-Srev, Dental Caries, Adult, Ipzu-vv-Tipq, Dental Caries, Adult, Byvl-ek-Xuxw, Dental Pain, Ezlc-np-Nhkt.Follow up with: SOLOMON WATTS Within 3 to 5 days.Counseled: Patient, Regarding diagnosis, Regarding treatment plan, Regarding prescription, Patient indicated understanding of instructions.DISCHARGE INFORMATION:Discharge Disposition: HomeDischarge Location: HomePATIENT EDUCATION INFORMATIONInstructions: Dental Caries, Adult, Xrsc-qg-Zfqo; Dental Pain, Cxgu-uo-OspiQrbsfi-Up:Chelsey h: Address: When:SOLOMON WATTS [facility] [address] [address] Business (1) Within 3 to 5 daysDIAGNOSIS:Dental caries; Dental pain; Pain, dentalPatient Understands: Yes - Patient/family/caregiver verbalizes understanding of instructions givenComment: Normal [facility] ED Note - Physicianon 2017 ED Note - Physician Patient: DOMINIC AGUILLON : 22 years Sex: FEMALE : [birth year]Associated Diagnoses: Dental caries; Pain, dentalAuthor: Alistair Max InformationTime seen: Date & time 04/11/18 20:29:00.Dental caries, dental painHistory of Present Xeoyqox24-ledm-xam white female presents to the emergency room [...] her poor dental state..Impression and PlanDiagnosisDental caries (PMU14-JK K02.9, Discharge, Medical)Pain, dental (VSJ49-IY K08.89, Discharge, Medical)PlanCondition: Improved, Stable.Disposition: Discharged: to home.Prescriptions: Launch prescriptionsPharmacy:tra MADol 50 mg oral tablet (Prescribe): 50 mg = 1 tab(s), PO, q4hr, PRN: as needed for pain, 12 tab(s), 0 Refill(s)amoxicillin 500 mg oral capsule (Prescribe): 1,000 mg = 2 cap(s), PO, BID, 40 cap(s), 0 Refill(s).Patient was given the following educational materials: Dental Pain, Crnb-mz-Zyuv, Dental Caries, Adult, Fzdy-ju-Vrmb, Dental Caries, Adult, Xpxo-ky-Tciu, Dental Pain, Tzgu-vg-Fnnw.Follow up with: SOLOMON WATTS Within 3 to 5 days.Counseled: Patient, Regarding diagnosis, Regarding treatment plan, Regarding prescription, Patient indicated understanding of instructions.[Electronica lly Signed on: 04/11/2018 20:42 EDT] Alistair Salomon MD[Verified on: 04/11/2018 20:42 EDT] Alistair Salomon MD [facility] ED Patient Education Noteon 04-11-2018 ED [...] and teeth. This keeps them healthy.? [place] your teeth 2 times a day. Use [...] This includes all cleanings.Preventing dental caries? [place] your teeth every morning and night. Use [...] Reviewed: 03/17/2017[employer] Patient Education ? 2017 [employer]Dental PainDental pain may be caused by [...] Reviewed: 06/27/2015[employer] Patient Education ? 2018 [employer] Normal [facility] ED Patient Summaryon 04-11-2 018 ED Patient Summary [facility] - Emergency [address] [place], [place] [id number] pATIENT DISCHARGE INSTRUCTIONSPatient InformationName: JENNIFER AGUILLON Age: 22 YearsDate of : [birth year]MRN: [id number] For Visit: Dental pain; Dental pain; DENTAL PAINArrival Time: 04/11/18 20:21:00Phone: Primary Care Physician: SOLOMON WATTSAttending Physician: Alistair Max MDComment:Visit Diagnosis:Diagnoses This Visit Dental caries (K02.9) Dental pain (K08.8) Dental pain ([id number]) Dental pain ([id number]) Pain, dental (K08.89)If you received any narcotics, [...] sign any legal documentsWith: Address: When:SOLOMON WATTS [address] [place] [address] Business (1) Within 3 to 5 daysMedication Information:The exam and treatment you received today in the [facility] Emergency Department were for an urgent problem and are not intended as complete care. It is important for you to follow up with a doctor, nurse practitioner, or physician?s neurology physician assistant for ongoing care. If your symptoms [...] number so we can reach you if necessary.[facility] Emergency Department has provided you with a complete list of medications post discharge. Please inform your oil lease buyer/provider of your visit and for further instruction [...] and teeth. This keeps them healthy.? [place] your teeth 2 times a day. Use [...] This includes all cleanings.Preventing dental caries? [place] your teeth every morning and night. Use [...] Reviewed: 03/17/2017[employer] Patient Education ? 2017 [employer].Dental PainDental pain may be caused by many [...] Reviewed: 06/27/2015[employer] Patient Education ? 2018 [employer]. Viruses or BacteriaWhat?s got you sick?Antibiotics only [...] Disease Control and Prevention March 2014 Normal [facility] Vital Signs Date Time Vital Sign Value Performing Clinician Facility 05-19-2024 09:42-0500 Body mass index (BMI) [Ratio] 35.02 kg/m2 Kenia Washington NP Work Phone: [facility] 05-19-2024 09:420500 Body weight 98.43 kg Kenia Washington NP Work Phone: [facility] 05-19-2024 09:42-0500 Diastolic blood pressure 74 mm[Hg] Kenia Washington MOLDER SWEEP Work Phone: [facility] 05-19-2024 09:42-0500 Systolic blood pressure 128 mm[Hg] Kenia Washington [employer] Work Phone: [facility] 03-19-2024 00:22-0400 Diastolic blood pressure 81 mm[Hg] [facility] 03-19-2024 00:22-0400 Heart rate 97 /min [facility] 03-19-2024 00:22-0400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
[2024-06-03 22:54] VITALS: BP 133/100; PULSE 107; TEMP 36.7; O2SAT 98; BMI 34.4
--- NOTE | 2024-06-03 23:08 | CT_ITS ---
[address] [address] Patient Name: VERNELL ENGLE MRN: [id number] date: 1995 Sex: F Assigned Patient Location: ER Current Patient Location: [facility] Accession/Order Number: [id number] Exam Date: 06/03/2024 23:26 Report Date: 06/04/2024 00:34 At the request of: MARIA ISABEL BANKS Procedure: CT abdomen pelvis wo con EXAM: CT abdomen pelvis wo con HISTORY: Pain, rule out stone COMPARISON: CT abdomen/pelvis 01/24/2023 TECHNIQUE: Axial CT images of the abdomen and pelvis were obtained. Coronal and sagittal reformats were provided. No contrast was administered. Dose reduction techniques were achieved by using automated exposure control and/or adjustment of mA and/or kV according to patient size and/or use of iterative reconstruction technique. FINDINGS: Lung Bases: Clear. Lower Heart: Unremarkable. Liver: Unremarkable. Gallbladder: Surgically absent. Spleen: Normal in size. No perisplenic fluid. Pancreas: Unremarkable. Adrenal Glands: Unremarkable. Kidneys / Ureters / Bladder: No hyperdense stone. No hydronephrosis. Ureters normal in course and caliber. Decompressed bladder. Bowel / Mesentery: No evidence of obstruction. No free intraabdominal air. Normal appendix. Lymph Nodes: No adenopathy. Vasculature: Unremarkable although limited in the absence of intravenous contrast. Variant origin of the splenic artery. Reproductive Organs: Unremarkable for age. Soft Tissues: Subcutaneous induration of the left buttock, likely injection related. Bones: No acute osseous findings. No concerning lytic or blastic process. CT/CT abdomen pelvis wo con IMPRESSION: No CT evidence of acute abdominopelvic process. Specifically no urinary tract stone identified. Normal appendix. Electronically authenticated by: NICOL BENSON Date: 06/04/2024 00:34
--- NOTE | 2024-06-03 23:14 | ED.GENADUL1 ---
HPI HPI - General Adult General Chief complaint: Urogenital-Female Stated complaint: FLANK PAIN Time Seen by Provider: 06/03/24 23:04 Source: patient Mode of arrival: walk-in Limitations: no limitations History of Present Illness HPI narrative: 29-year-old female presents to the emergency department for primarily left flank pain. She has had this on and off for about 4 days and she has a little bit of right flank pain as well. She has some pressure in her suprapubic area and got some Pyridium from her student services counselor. No fever or vomiting or injury. Related Data Home Medications ?Medication ?Instructions ?Recorded ?Confirmed oxcarbazepine 300 mg tablet 300 mg PO BID 11/26/23 06/03/24 otdvpxynqe-jbnkohdqkohuh-eniocxkh 1 cap PO Q6H PRN pain 04/24/24 06/03/24 50 mg-300 mg-40 mg capsule cholecalciferol (vitamin D3) 10 10 mcg PO DAILY 04/24/24 06/03/24 mcg (400 unit) capsule (Vitamin D3) cyclobenzaprine 5 mg tablet 5 mg PO DAILY 04/24/24 06/03/24 rizatriptan 5 mg tablet 5 mg PO Q2H PRN migraine headache 04/24/24 06/03/24 epinephrine 0.15 mg/0.3 mL 0.3 ml IM PRN 05/20/24 06/03/24 injection,auto-injector hydroxyzine HCl 25 mg tablet 25 mg PO DAILY PRN itching 05/20/24 06/03/24 lorazepam 0.5 mg tablet mg 05/20/24 lumateperone 10.5 mg capsule 10.5 mg PO 05/20/24 (Caplyta) Previous Rx's ?Medication ?Instructions ?Recorded lorazepam 1 mg tablet (Ativan) 1 mg PO Q6H PRN Twitching 3 days 06/03/24 #10 tabs Allergies Allergy/AdvReac Type Severity Reaction Status Date / Time latex Allergy Unknown Rash Verified 06/03/24 22:59 adhesive Allergy Rash Verified 06/03/24 22:59 Sulfa (Sulfonamide AdvReac Mild Hives Verified 06/03/24 22:59 Antibiotics) Opioid HPI Opioid Management Most Recent Opioid Data: Last Pain Scale 10 04/27/24 13:57 04/27/24 Review of Systems ROS Narrative A ten point review of systems is negative except as noted above. [facility] Social History Smoking status: Former smoker Little interest or pleasure in doing things: not at all Feeling down, depressed, or hopeless: not at all Exam Narrative Exam Narrative: Nurses note and vital signs reviewed and patient is not hypoxic. General: The patient appears in no apparent distress. Skin: Warm, dry, no pallor noted. There is no rash noted. Head: Normocephalic, atraumatic Eye: Normal conjunctiva, no drainage Ears, Nose, Mouth, and Throat: oral mucosa is moist. Nares patent. Cardiovascular: Regular Rate and Rhythm Respiratory: Patient is in no distress, no accessory muscle use, lungs are clear to auscultation, no wheezing, rales or rhonchi Back: No bruise or rash. No CVA tenderness GI: Soft and nontender Musculoskeletal: The patient has no evidence of calf tenderness, no pitting edema, symmetrical pulses noted bilaterally Neurological: A&O, normal speech Psychiatric: Cooperative Constitutional Vital Signs, click to edit/add: Last Vital Signs Temp 98.1 F 06/03/24 22:54 Pulse 83 06/04/24 00:13 Resp 18 06/04/24 00:13 BP 126/87 06/04/24 00:13 Pulse Ox 97 06/04/24 00:13 O2 Del Method Room Air 06/03/24 22:54 Course Vital Signs Vital signs: Vital Signs Temperature 98.1 F 06/03/24 22:54 Pulse Rate 107 H 06/03/24 22:54 Respiratory Rate 18 06/03/24 22:54 Blood Pressure 133/100 H 06/03/24 22:54 Pulse Oximetry 98 06/03/24 22:54 Oxygen Delivery Method Room Air 06/03/24 22:54 Temperature 98.1 F 06/03/24 22:54 Pulse Rate 83 06/04/24 00:13 Respiratory Rate 18 06/04/24 00:13 Blood Pressure 126/87 06/04/24 00:13 Pulse Oximetry 97 06/04/24 00:13 Oxygen Delivery Method Room Air 06/03/24 22:54 Medical Decision Making MDM Narrative Medical decision making narrative: CAT scan and urinalysis are negative. No evidence of kidney stone or UTI. She is able to be discharged home. Cause of her symptoms is uncertain at this point. Treatment diagnosis and follow-up were discussed with the patient. Differential Diagnosis Differential Diagnosis: Kidney stone, UTI Lab Data Lab results reviewed: Yes I reviewed the patient's lab results Labs: Lab Results 06/03/24 Range/Units 23:09 Urine Color Yellow (YELLOW) Urine Clarity Clear (CLEAR) Urine pH 7.5 (5.0-9.0) Ur Specific [place] 1.015 (1.005-1.025) Urine Protein Negative (NEG/TRACE) mg/dL Urine Glucose (UA) Negative (NEGATIVE) mg/dL Urine Ketones Negative (NEGATIVE) mg/dL Urine Occult Blood Negative (NEGATIVE) Urine Nitrite Negative (NEGATIVE) Urine Bilirubin Negative (NEGATIVE) Urine Urobilinogen 0.2 (0.2-1.0) EU/dL Ur Leukocyte Esterase Negative (NEGATIVE) Urine RBC 0-2 (0-2) #/HPF Urine WBC None seen (NONE SEEN) #/HPF Ur Squamous Epith Cells Few A (NONE/RARE) #/LPF Urine Crystals None seen (None Seen) #/HPF Urine Bacteria Trace A (NONE SEEN) #/HPF Urine Casts None seen (NONE SEEN) #/LPF Urine Mucus None seen (NONE SEEN) Urine HCG, Qual Negative (NEGATIVE) Imaging Data CT scan - abdomen: Radiologist's impression: ITS Impressions Abdomen/Pelvis CT 06/03/24 23:08 IMPRESSION: No CT evidence of acute abdominopelvic process. Specifically no urinary tract stone identified. Normal appendix. Electronically authenticated by: NICOL BENSON Date: 06/04/2024 00:34 Discharge Plan Discharge Chief Complaint: Urogenital-Female Clinical Impression: Abdominal pain Patient Disposition: Home, Self-Care Time of Disposition Decision: 01:04 Mode of Transportation: Private Vehicle Prescriptions / Home Meds: New lorazepam [Ativan] 1 mg tablet 1 mg PO Q6H PRN (Reason: Twitching) 3 Days Qty: 10 0RF Discontinued alprazolam 0.5 mg tablet 0.5 mg PO DAILY PRN (Reason: anxiety) No Action oxcarbazepine 300 mg tablet 300 mg PO BID epinephrine 0.15 mg/0.3 mL auto-injector 0.3 ml IM PRN lorazepam 0.5 mg tablet hydroxyzine HCl 25 mg tablet 25 mg PO DAILY PRN (Reason: itching) Caplyta 10.5 mg capsule 10.5 mg PO rizatriptan 5 mg tablet 5 mg PO Q2H PRN (Reason: migraine headache) cholecalciferol (vitamin D3) [Vitamin D3] 10 mcg (400 unit) capsule 10 mcg PO DAILY cyclobenzaprine 5 mg tablet 5 mg PO DAILY bvgkzdxjvg-fvqkhaxgfpnsb-invt 50-300-40 mg capsule 1 cap PO Q6H PRN (Reason: pain) Print Language: Turkmen Instructions: Abdominal Pain (ED) Referrals: [facility] [Primary Care Provider] - 1 week
[2024-06-03 23:18] LABS: Bilirubin Urine NEGATIVE (NEGATIVE); Blood Urine NEGATIVE (NEGATIVE); Clarity Urine CLEAR (CLEAR); Glucose Urine UA NEGATIVE (NEGATIVE); Ketones Urine NEGATIVE (NEGATIVE); Leukocyte Esterase Urine NEGATIVE (NEGATIVE); Nitrite Urine NEGATIVE (NEGATIVE); Protein Urine NEGATIVE (NEG/TRACE); Specific Gravity Urine 1.015 (1.005-1.025); Urobilinogen Urine 0.2 EU/dL (0.2-1.0); pH Urine 7.5 (5.0-9.0)
[2024-06-03 23:19] LABS: Color Urine YELLOW (YELLOW); HCG Qualitative Urine* NEGATIVE (NEGATIVE); Internal Control Within Normal Limits
[2024-06-03 23:26] LABS: Bacteria Urine TRACE #/HPF (NONE SEEN); Cast Seen? NONE SEEN #/LPF (NONE SEEN); Crystals Seen? None Seen #/HPF (None Seen); Mucus Urine NONE SEEN (NONE SEEN); RBC Urine 0-2 #/HPF (0-2); Squamous Epithelial Cell Urine FEW #/LPF (NONE/RARE); WBC Urine NONE SEEN #/HPF (NONE SEEN)
[2024-06-04 00:13] VITALS: BP 126/87; PULSE 83; O2SAT 97
[2024-06-04] MEDS: KETOROLAC TROMETHAMINE 60 MG/2 ML VIAL IM (01:17)
== END 2024-06-04 01:23 | disposition home or self-care (01) ==
PROVIDERS: Emergency Provider Emergency Medicine
DX: R10.9 Unspecified abdominal pain (principal)
CPT/HCPCS: 74176; 81001; 84703; 96372; 99284; J1885

== ENCOUNTER 2024-06-08 12:41 | Outpatient (OUT) | payer MEDICAID, SELFPAY ==
--- OUTSIDE RECORDS SUMMARY | 2024-06-08 13:04 | XMS_ITS | CCD ---
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 on above: Result Comment: Clas s 0: Normal Performed By: #### R AP ####[facility] ([id number])[address], [address] [place] [address] WHITE JOS <0.10 Normal <0.10 [facility] Comment on above: Result Comment: Clas s 0: Normal Performed By: #### R AP ####[facility] ([id number])[address], [address] [place] [address] MR head/brain wo/w conon MR head/brain wo/w con [facility] Main [address] [address] MRI Report Signed Patient: Jennifer Aguillon MR#: [id number] 8 : 1995 Acct:[id number] Age/Sex: 29 / F ADM Date: 05/11/24 Loc: MR Room: Type: [facility] Attending Dr: Kenia Washington APRN-SUSTAINABILITY COORDINATOR-C Copies to: DELIA Mtz Ordering Provider: DELIA [...] Luis Baldwin M.D.05/11/2024 11:05 PM Dictation Location: [place] [address] Transcribed By: [facility] 05/11/242304 Dictated By: Juan Luis Baldwin DO 05/11/242301 Signed By: 05/11/242304 Normal [facility] MR lumbar spine wo [facility] MR lumbar spine wo con [facility] [place] [address] MRI Report Signed Patient: Jennifer Aguillon MR#: [id number] 8 : 1995 Acct:[id number] Age/Sex: 29 / F ADM Date: 05/11/24 Loc: MR Room: Type: [facility] Attending Dr: Kenia LIN Copies to: DELIA [...] Luis Baldwin M.D.05/11/2024 11:02 PM Dictation Location: [place] [address] Transcribed By: [facility] 05/11/242301 Dictated By: Juan Luis Baldwin DO 05/11/242256 Signed By: 05/11/242301 Normal [facility] XR CHEST 2 VWSon [...] Vincent MD on 04/28/2024 2:10 PM Normal [facility] ECG 12 lead ECGon 03-18-2024 ECG 12 lead ECG [facility] Main [place] [address] [place] [address] Electrocardiograph Report Signed Patient: Jennifer Aguillon MR#: [id number] 8 : 1995 Acct:[id number] Age/Sex: 28 / F ADM Date: 03/18/24 Loc: ER Room: Type: [facility] ER Attending Dr: Ordering Provider: Estefani [...] ECGs available Confirmed by ESTEFANI ALEXANDER MD ([id number]) on 03/20/2024 5:58:53 AM Referred By: Electronically Signed By: ESTEFANI ALEXANDER MD Transcribed By: MUS Signed By Estefani Alexander Jr, [place] [id number] Normal [facility] Influenza virus B Ag [Presen ce] in Upper respiratory specimen by Rapid immunoassayon 03-05-2024 FLUBV Ag IA.rapid Ql (Nph) Negative [facility] No Panel Informationon 03-05 Influenza Type A (Rapid) Negative [facility] POC SARS CoV-2 Antigen Negative [facility] Troponin I.cardiac High sens itivity method [Mass/Vol]on 02-14-2024 1 HOUR TROP I, HIGH SENSITIVITY 3 ng/L Normal <16 [facility] Comment on above: Performed By: #### 8 9579-7 ####[facility] ([id number])[address] [place] [address] CBC AND AUTO DIFFon 02-13-20 24 ABSOLUTE BASOPHIL 0.0 X10E9/L Normal 0.0-0.2 [facility] Comment on above: Performed By: #### 2 106-3 #### [facility] ([id number]) [address] [place] [address] ABSOLUTE NEUTROPHIL 7.5 X10E9/L High 1.5-6.6 [facility] Comment on above: Performed By: #### 2 106-3 #### [facility] ([id number]) [address] [place] [address]40[address] Basophils/100 WBC (Bld) 0.3 % Normal [facility] Comment on above: Performed By: #### 2 106-3 #### [facility] ([id number]) [address] [place] [address] 85259 Eosinophils (Bld) [#/Vol] 0.1 10*3/uL Normal 0.0-0.4 [facility] Comment on above: Performed By: #### 2 106-3 #### [facility] ([id number]) [address] [place] [address] 71535 Eosinophils/100 WBC (Bld) 0.8 % Normal [facility] Comment on above: Performed By: #### 2 106-3 #### [facility] ([id number]) [address] [place] [address]39[address] Erythrocyte distribution width (RBC) [Ratio] 13.7 % Normal 11.5-15.0 [facility] Comment on above: Performed By: #### 2 106-3 #### [facility] ([id number]) [address] [place] [address] Hematocrit (Bld) [Volume fraction] 35.8 % Normal 35-47 [facility] Comment on above: Performed By: #### 2 106-3 #### [facility] ([id number]) [address] [place] [address] 49170 Hemoglobin (Bld) [Mass/Vol] 12.5 g/dL Normal 11.7-15.5 [facility] Comment on above: Performed By: #### 2 106-3 #### [facility] ([id number]) [address] [place] [address] 35753 Lymphocytes (Bld) [#/Vol] 3.4 10*3/uL Normal 1.0-3.5 [facility] Comment on above: Performed By: #### 2 106-3 #### [facility] ([id number]) [address] [place] [address] 47433 Lymphocytes/100 WBC (Bld) 29.4 % Normal [facility] Comment on above: Performed By: #### 2 106-3 #### [facility] ([id number]) [address] [place] [address] 05922 MCH (RBC) [Entitic mass] 29.8 pg Normal 27-34 [facility] Comment on above: Performed By: #### 2 106-3 #### [facility] ([id number]) [address] [place] [address] 12517 MCHC (RBC) [Mass/Vol] 35.0 g/dL Normal 32-36 [facility] Comment on above: Performed By: #### 2 106-3 #### [facility] ([id number]) [address] [place] [address] 81619 MCV (RBC) [Entitic vol] 85 fL Normal 80-100 [facility] Comment on above: Performed By: #### 2 106-3 #### [facility] ([id number]) [address] [place] [address] 25430 Monocytes (Bld) [#/Vol] 0.6 10*3/uL Normal 0-0.9 [facility] Comment on above: Performed By: #### 2 106-3 #### [facility] ([id number]) [address] [place] [address] 11341 Monocytes/100 WBC (Bld) 4.8 % Normal [facility] Comment on above: Performed By: #### 2 106-3 #### [facility] ([id number]) [address] [place] [address] 15491 Neutrophils/100 WBC (Bld) 64.7 % Normal [facility] Comment on above: Performed By: #### 2 106-3 #### [facility] ([id number]) [address] [place] [address] 30804 Platelet mean volume (Bld) [Entitic vol] 6.6 fL Low 7-12 [facility] Comment on above: Performed By: #### 2 106-3 #### [facility] ([id number]) [address] [place] [address] 41135 Platelets (Bld) [#/Vol] 377 10*3/uL Normal 150-450 [facility] Comment on above: Performed By: #### 2 106-3 #### [facility] ([id number]) [address] [place] [address] 99242 RBC COUNT 4.21 X10E12/L Normal 3.80-5.20 [facility] Comment on above: Performed By: #### 2 106-3 #### [facility] ([id number]) [address] [place] [address] 39311 WBC (Bld) [#/Vol] 11.6 10*3/uL High 4.0-11.0 [facility] Comment on above: Performed By: #### 2 106-3 #### [facility] ([id number]) [address] [place] [address] 43699 COMPREHENSIVE METABOLIC PANE Kit 02-13-2024 Albumin [Mass/Vol] 4.1 g/dL Normal 3.2-5.3 [facility] Comment on above: Performed By: #### 2 106-3 #### [facility] ([id number]) [address] [place] [address] 39280 ALP [Catalytic activity/Vol] 158 U/L High 39-130 [facility] Comment on above: Performed By: #### 2 106-3 #### [facility] ([id number]) [address] [place] [address] 20754 ALT [Catalytic activity/Vol] 46 U/L High 0-31 [facility] Comment on above: Performed By: #### 2 106-3 #### [facility] ([id number]) [address] [place] [address] 59262 Anion gap [Moles/Vol] 7 mmol/L Normal 5-15 [facility] Comment on above: Performed By: #### 2 106-3 #### [facility] ([id number]) [address] [place] [address] 58886 AST [Catalytic activity/Vol] 28 U/L Normal 0-41 [facility] Comment on above: Performed By: #### 2 106-3 #### [facility] ([id number]) [address] [place] [address] 59329 Bilirubin [Mass/Vol] 0.5 mg/dL Normal 0.3-1.2 [facility] Comment on above: Performed By: #### 2 106-3 #### [facility] ([id number]) [address] [place] [address] 52463 Calcium [Mass/Vol] 9.0 mg/dL Normal 8.5-10.5 [facility] Comment on above: Performed By: #### 2 106-3 #### [facility] ([id number]) [address] [place] [address] 05454 Chloride [Moles/Vol] 106 mmol/L Normal 98-109 [facility] Comment on above: Performed By: #### 2 106-3 #### [facility] ([id number]) [address] [place] [address] 41010 CO2 [Moles/Vol] 24 mmol/L Normal 22-32 [facility] Comment on above: Performed By: #### 2 106-3 #### [facility] ([id number]) [address] [place] [address] 67662 Creatinine [Mass/Vol] 0.63 mg/dL Normal 0.40-1.00 [facility] Comment on above: Result Comment: METH OD TRACEABLE TO IDMS STANDARD Performed By: #### 2 106-3 #### [facility] ([id number]) [address] [place] [address] 27344 eGFR (CKD-EPI) NON-RACE DEPENDENT >90 Normal >59 [facility] Comment on above: Result Comment: Reported eGFR is based on the CKD-EPI 2020 equation that does not use a race coefficient. Performed By: #### 2 106-3 #### [facility] ([id number]) [address] [place] [address] 74796 Glucose [Mass/Vol] 98 mg/dL Normal 65-99 [facility] Comment on above: Performed By: #### 2 106-3 #### [facility] ([id number]) [address] [place] [address] 89255 Potassium [Moles/Vol] 3.1 mmol/L Low 3.5-5.0 [facility] Comment on above: Performed By: #### 2 106-3 #### [facility] ([id number]) [address] [place] [address] 21772 Protein [Mass/Vol] 8.0 g/dL Normal 6.0-8.0 [facility] Comment on above: Performed By: #### 2 106-3 #### [facility] ([id number]) [address] [place] [address] 96079 Sodium [Moles/Vol] 137 mmol/L Normal 134-146 [facility] Comment on above: Performed By: #### 2 106-3 #### [facility] ([id number]) [address] [place] [address] 24183 Urea nitrogen [Mass/Vol] 7 mg/dL Normal 5-23 [facility] Comment on above: Performed By: #### 2 106-3 #### [facility] ([id number]) [address] [place] [address] 26387 HCG ( test) Ql (U)o n 02-13-2024 Beta HCG ( test) Ql (U) Negative Normal NEG [facility] Comment on above: Performed By: #### 2 106-3 #### [facility] ([id number]) [address] [place] [address] 84664 MAGNESIUMon 02-13-2024 Magnesium [Mass/Vol] 1.9 mg/dL Normal 1.8-2.6 [facility] Comment on above: Performed By: #### 2 106-3 #### [facility] ([id number]) [address] [place] [address] 08971 Troponin I.cardiac High sens itivity method [Mass/Vol]on 02-13-2024 TROPONIN I, HIGH SENSITIVITY 3 ng/L Normal <16 [facility] Comment on above: Performed By: #### 2 106-3 #### [facility] ([id number]) [address] [place] [address] 47065 URN MACROSCOPIC NURon 2023 BILIRUBIN BETHANY Negative Normal NEG [facility] Comment on above: Performed By: #### 2 106-3 #### [facility] ([id number]) [address] [place] [address] 59491 BLOOD/HGB BETHANY Negative Normal NEG [facility] Comment on above: Performed By: #### 2 106-3 #### [facility] ([id number]) [address] [place] [address] 43036 GLUCOSE BETHANY Negative Normal NEG [facility] Comment on above: Performed By: #### 2 106-3 #### [facility] ([id number]) [address] [place] [address] 35512 KETONES BETHANY Negative Normal NEG [facility] Comment on above: Performed By: #### 2 106-3 #### [facility] ([id number]) [address] [place] [address] 48205 LEUKOCYTE ESTERASE BETHANY Negative Normal NEG [facility] Comment on above: Performed By: #### 2 106-3 #### [facility] ([id number]) [address] [place] [address] 83675 NITRITE BETHANY Negative Normal NEG [facility] Comment on above: Performed By: #### 2 106-3 #### [facility] ([id number]) [address] [place] [address] 02920 PH BETHANY 6.5 Normal 5.0-8.5 [facility] Comment on above: Performed By: #### 2 106-3 #### [facility] ([id number]) [address] [place] [address] 77514 PROTEIN BETHANY Negative Normal NEG [facility] Comment on above: Performed By: #### 2 106-3 #### [facility] ([id number]) [address] [place] [address] 30900 SPECIFIC GRAVITY BETHANY 1.015 Normal 1.003-[address] [place] [address] Comment on above: Performed By: #### 2 106-3 #### [facility] ([id number]) [address] [place] [address] 83427 UROBILINOGEN BETHANY 0.2 eu/dL Normal <1.1 [facility] Comment on above: Performed By: #### 2 106-3 #### [facility] ([id number]) [address] [place] [address] 48457 XR CHEST 2 VWSon 02-13-2024 XR CHEST 2 VWS XR CHEST 2 VWS Chest 2 views History: Difficulty breathing SOB Comparison: 11/25/2023 Findings: Chest 2 views. Stable cardiomediastinal silhouette. No focal opacity, effusion or pneumothorax. Impression: No evident acute cardiopulmonary process. Finalized by Jennifer Howe MD on 02/13/2024 11:22 PM Normal [facility] BASIC METABOLIC PANLon 12-28 Anion gap [Moles/Vol] 4 mmol/L Low 5-15 [facility] Comment on above: Performed By: #### 2 106-3 #### [facility] ([id number]) [address] [place] [address] 73832 Calcium [Mass/Vol] 8.4 mg/dL Low 8.5-10.5 [facility] Comment on above: Performed By: #### 2 106-3 #### [facility] ([id number]) [address] [place] [address] 44473 Chloride [Moles/Vol] 106 mmol/L Normal 98-109 [facility] Comment on above: Performed By: #### 2 106-3 #### [facility] ([id number]) [address] [place] [address] 13424 CO2 [Moles/Vol] 24 mmol/L Normal 22-32 [facility] Comment on above: Performed By: #### 2 106-3 #### [facility] ([id number]) [address] [place] [address] 36178 Creatinine [Mass/Vol] 0.65 mg/dL Normal 0.40-1.00 [facility] Comment on above: Result Comment: METH OD TRACEABLE TO IDMS STANDARD Performed By: #### 2 106-3 #### [facility] ([id number]) [address] [place] [address] 19336 eGFR (CKD-EPI) NON-RACE DEPENDENT >90 Normal >59 [facility] Comment on above: Result Comment: Reported eGFR is based on the CKD-EPI 2020 equation that does not use a race coefficient. Performed By: #### 2 106-3 #### [facility] ([id number]) [address] [place] [address] 58789 Glucose [Mass/Vol] 101 mg/dL High 65-99 [facility] Comment on above: Performed By: #### 2 106-3 #### [facility] ([id number]) [address] [place] [address] 94497 Potassium [Moles/Vol] 3.8 mmol/L Normal 3.5-5.0 [facility] Comment on above: Performed By: #### 2 106-3 #### [facility] ([id number]) [address] [place] [address] 80350 Sodium [Moles/Vol] 134 mmol/L Normal 134-146 [facility] Comment on above: Performed By: #### 2 106-3 #### [facility] ([id number]) [address] [place] [address] 39718 Urea nitrogen [Mass/Vol] 12 mg/dL Normal 5-23 [facility] Comment on above: Performed By: #### 2 106-3 #### [facility] ([id number]) [address] [place] [address] 75750 CBC AND AUTO DIFFon 12-29-19 24 ABSOLUTE BASOPHIL 0.1 X10E9/L Normal 0.0-0.2 [facility] Comment on above: Performed By: #### 2 106-3 #### [facility] ([id number]) [address] [place] [address] 27237 ABSOLUTE NEUTROPHIL 6.1 X10E9/L Normal 1.5-6.6 [facility] Comment on above: Performed By: #### 2 106-3 #### [facility] ([id number]) [address] [place] [address] 26630 Basophils/100 WBC (Bld) 0.7 % Normal [facility] Comment on above: Performed By: #### 2 106-3 #### [facility] ([id number]) [address] [place] [address] 61583 Eosinophils (Bld) [#/Vol] 0.2 10*3/uL Normal 0.0-0.4 [facility] Comment on above: Performed By: #### 2 106-3 #### [facility] ([id number]) [address] [place] [address] 98312 Eosinophils/100 WBC (Bld) 1.9 % Normal [facility] Comment on above: Performed By: #### 2 106-3 #### [facility] ([id number]) [address] [place] [address] 03812 Erythrocyte distribution width (RBC) [Ratio] 13.6 % Normal 11.5-15.0 [facility] Comment on above: Performed By: #### 2 106-3 #### [facility] ([id number]) [address] [place] [address] 90444 Hematocrit (Bld) [Volume fraction] 33.7 % Low 35-47 [facility] Comment on above: Performed By: #### 2 106-3 #### [facility] ([id number]) [address] [place] [address] 50075 Hemoglobin (Bld) [Mass/Vol] 11.7 g/dL Normal 11.7-15.5 [facility] Comment on above: Performed By: #### 2 106-3 #### [facility] ([id number]) [address] [place] [address] 49898 Lymphocytes (Bld) [#/Vol] 3.0 10*3/uL Normal 1.0-3.5 [facility] Comment on above: Performed By: #### 2 106-3 #### [facility] ([id number]) [address] [place] [address] 23343 Lymphocytes/100 WBC (Bld) 29.8 % Normal [facility] Comment on above: Performed By: #### 2 106-3 #### [facility] ([id number]) [address] [place] [address] 61127 MCH (RBC) [Entitic mass] 29.2 pg Normal 27-34 [facility] Comment on above: Performed By: #### 2 106-3 #### [facility] ([id number]) [address] [place] [address] 26217 MCHC (RBC) [Mass/Vol] 34.6 g/dL Normal 32-36 [facility] Comment on above: Performed By: #### 2 106-3 #### [facility] ([id number]) [address] [place] [address] 93059 MCV (RBC) [Entitic vol] 84 fL Normal 80-100 [facility] Comment on above: Performed By: #### 2 106-3 #### [facility] ([id number]) [address] [place] [address] 46157 Monocytes (Bld) [#/Vol] 0.6 10*3/uL Normal 0-0.9 [facility] Comment on above: Performed By: #### 2 106-3 #### [facility] ([id number]) [address] [place] [address] 92294 Monocytes/100 WBC (Bld) 6.5 % Normal [facility] Comment on above: Performed By: #### 2 106-3 #### [facility] ([id number]) [address] [place] [address] 41307 Neutrophils/100 WBC (Bld) 61.1 % Normal [facility] Comment on above: Performed By: #### 2 106-3 #### [facility] ([id number]) [address] [place] [address] 53206 Platelet mean volume (Bld) [Entitic vol] 6.8 fL Low 7-12 [facility] Comment on above: Performed By: #### 2 106-3 #### [facility] ([id number]) [address] [place] [address] [id number] Platelets (Bld) [#/Vol] 307 10*3/uL Normal 150-450 [facility] Comment on above: Performed By: #### 2 106-3 #### [facility] ([id number]) [address] [place] [address] 14168 RBC COUNT 4.00 X10E12/L Normal 3.80-5.20 [facility] Comment on above: Performed By: #### 2 106-3 #### [facility] ([id number]) [address] [place] [address] 66137 WBC (Bld) [#/Vol] 10.0 10*3/uL Normal 4.0-11.0 [facility] Comment on above: Performed By: #### 2 106-3 #### [facility] ([id number]) [address] [place] [address]9916 MAGNESIUMon 12-29-2023 Magnesium [Mass/Vol] 2.0 mg/dL Normal 1.8-2.6 [facility] Comment on above: Performed By: #### 2 106-3 #### [facility] ([id number]) [address] [place] [address] 99646 HCG ( test) Ql (U)o n 12-11-2023 Beta HCG ( test) Ql (U) Negative Normal [facility]G [facility] [facility] Comment on above: Performed By: #### 2 106-3 #### [facility] ([id number]) [address] [place] [address] [place] [address] URN MACROSCOPIC NURon 2023 BILIRUBIN BETHANY Negative Normal NEG [facility] Comment on above: Performed By: #### N UM #### [facility] ([id number]) [address] [place] [address] [place] [address] BLOOD/HGB BETHANY Negative Normal NEG [facility] Comment on above: Performed By: #### N UM #### [facility] ([id number]) [address] [place] [address] [place] [address] GLUCOSE BETHANY Negative Normal NEG [facility] Comment on above: Performed By: #### N UM #### [facility] ([id number]) [address] [place] [address] [place] [address] KETONES BETHANY Negative Normal NEG [facility] Comment on above: Performed By: #### N UM #### [facility] ([id number]) [address] [place] [address] [place] [address] LEUKOCYTE ESTERASE BETHANY Negative Normal NEG [facility] Comment on above: Performed By: #### N UM #### [facility] ([id number]) [address] [place] [address] [place] [address] NITRITE BETHANY Negative Normal NEG [facility] Comment on above: Performed By: #### N UM #### [facility] ([id number]) [address] [place] [address] [place] [address] PH BETHANY 6.0 Normal 5.0-8.5 [facility] Comment on above: Performed By: #### N UM #### [facility] ([id number]) [address] [place] [address] [place] [address] PROTEIN BETHANY Negative Normal NEG [facility] Comment on above: Performed By: #### N UM #### [facility] ([id number]) [address] [place] [address] SPECIFIC GRAVITY BETHANY 1.015 Normal 1.003-1 .03 5 [facility] Comment on above: Performed By: #### N UM #### [facility] ([id number]) [address] [place] [address] UROBILINOGEN BETHANY 0.2 eu/dL Normal <1.1 [facility] Comment on above: Performed By: #### N UM #### [facility] ([id number]) [address] [place] [address] BASIC METABOLIC PANLon 11-24 Anion gap [Moles/Vol] 13 mmol/L Normal 5-15 [facility] Comment on above: Performed By: #### B MP #### [facility] ([id number]) [address] [place] [address] Calcium [Mass/Vol] 9.0 mg/dL Normal 8.5-10.5 [facility] Comment on above: Performed By: #### B MP #### [facility] ([id number]) [address] [place] [address] Chloride [Moles/Vol] 103 mmol/L Normal 98-109 [facility] Comment on above: Performed By: #### B MP #### [facility] ([id number]) [address] [place] [address] CO2 [Moles/Vol] 20 mmol/L Low 22-32 [facility] Comment on above: Performed By: #### B MP #### [facility] ([id number]) [address] [place] [address] Creatinine [Mass/Vol] 0.69 mg/dL Normal 0.40-1.00 [facility] Comment on above: Result Comment: METH OD TRACEABLE TO IDMS STANDARD Performed By: #### B MP #### [facility] ([id number]) [address] [place] [address] [place] [address] eGFR (CKD-EPI) NON-RACE DEPENDENT >90 Normal >59 [facility] Comment on above: Result Comment: Reported eGFR is based on the CKD-EPI 2020 equation that does not use a race coefficient. Performed By: #### B MP #### [facility] ([id number]) [address] [place] [address] Glucose [Mass/Vol] 95 mg/dL Normal 65-99 [facility] Comment on above: Performed By: #### B MP #### [facility] ([id number]) [address] [place] [address] Potassium [Moles/Vol] 2.9 mmol/L Low 3.5-5.0 [facility] Comment on above: Performed By: #### B MP #### [facility] ([id number]) [address] [place] [address] Sodium [Moles/Vol] 136 mmol/L Normal 134-146 [facility] Comment on above: Performed By: #### B MP #### [facility] ([id number]) [address] [place] [address] Urea nitrogen [Mass/Vol] 7 mg/dL Normal 5-23 [facility] Comment on above: Performed By: #### B MP #### [facility] ([id number]) [address] [place] [address] [place] [address] SARS/FLU A+B/RS[facility] SARS/FLU A+B/RSV by NAAT/Molecular FLU A [...] operators who are performing tests using either [employer] LS15 DX or [employer] systems and is limited to laboratories that [...] repeat. Fact Sheet for Healthcare Providers: https://www.fda.gov/media /379951/download Fact Sheet for Patients: https://www.fda.gov/media /510442/download Normal [facility] Comment on above: Performed By: #### C OVFLR #### [facility] ([id number]) [address] [place] [address], [place] [address] XR FOOT LT MIN 3 VWSon 09-21 [...] Loya MD on 09/22/2023 12:07 AM Normal [facility] XR SPINE LUMBAR 2 OR [...] Loya MD on 09/22/2023 12:10 AM Normal [facility] XR TIBIA FIBULA LT MIN [...] Loya MD on 09/22/2023 12:09 AM Normal [facility] HCG ( test) Ql (U)o n 09-21-2023 Beta HCG ( test) Ql (U) Negative Normal NEG [facility] Comment on above: Performed By: #### 2 106-3 #### [facility] ([id number]) [address] [place] [address], [place] [address] SARS/FLU A+B/RSV by NAAT/Mol ecularon 07-09-2023 SARS/FLU [...] operators who are performing tests using either [employer] or [employer] systems and is limited to laboratories that [...] repeat. Fact Sheet for Healthcare Providers: https://www.fda.gov/media /198474/download Fact Sheet for Patients: https://www.fda.gov/media /984109/download Normal [facility] Comment on above: Performed By: #### C OVFLR #### [facility] ([id number]) [address] [facility], [place] [address] Provider Letteron 02-25-2023 Provider Letter (Inserted Image. Swapna ble to display) February 25, 2023 [place] [address] : 1995 Dear Jennifer , We have been trying to reach you with no success. It is important that you return our call regarding your referral to our office by Jennifer upon receiving this letter. Also, at the time of your call, please provide us with your current information. Thank you for your prompt attention to this matter. Sincerely, [facility] [phone] Normal [facility] Physician Referralon 023 Physician Referral [phone] [id number] [id number] Normal [facility] Urinalysis - AUTOMATEDon Appearance (U) cloudy [employer] Other Bilirubin Ql (U) Negative [employer] Other Color (U) yellow [employer] Other Glucose Ql (U) Negative [employer] Other Hemoglobin Ql (U) Trace-intact [employer] Other Ketones Ql (U) Negative [employer] Other Leukocyte esterase Test strip Ql (U) Trace [employer] Other Nitrite Ql (U) Negative [employer] Other pH (U) 6.0 [pH] [employer] Other Protein Ql (U) Negative [employer] Other Specific gravity (U) [Rel density] <=1.005 [employer] Other Urobilinogen (U) [Mass/Vol] 0.2 mg/dL [employer] Other [facility]inalysis - [facility] Other Quick Strepon 04-26-2022 S. pyogenes Org specific cx Ql (Throat) Negative [facility] [employer] Other Quick Strep [facility] [employer] Other SARS-CoV-2 (COVID-19) RNA NA A+probe Ql (Resp)on 04-23-2022 SARS-CoV-2 (COVID-19) RNA EMMANUELLE+probe Ql (Unsp spec) Negative [facility] [employer] Other Covid-19 PCR (CVDTBH)on 03-16 SARS-CoV-2 (COVID-19) RNA EMMANUELLE+probe Ql (Unsp spec) Not detected Normal NOT DETECTED [facility] Comment on above: Result Comment: This test is not yet approved or cleared by the [place] FDA. When there are no FDA-approved or cleared tests available, and other criteria are met, FDA can make tests available under an emergency access mechanism called an Emergency Use Authorization (EUA). The EUA for this test is supported by the [place] of Health and Human Service's (HHS's) declaration [...] SARS-CoV-2. Performed By: #### C BC #### [facility] [address] [place] [address] Dr. Katrin Ceja SARS-CoV-2 (COVID-19) RNA NA A+probe Ql (Resp)on 03-27-2022 SARS-CoV-2 (COVID-19) RNA EMMANUELLE+probe Ql (Unsp spec) Negative [employer] Other CBC AUTO DIFFon 03-22-2022 BASO # 0.0 103/ul Normal 0.0-0.1 [facility] Comment on above: Performed By: #### L IPID, CMP #### [facility] [address] [place] [address] Dr. Katrin Ceja Basophils/100 WBC (Bld) 0.3 % Normal 0.2-2.[address] [facility] Comment on above: Performed By: #### L IPID, CMP #### [facility] [address] [place] [address] Dr. Katrin Ceja EO # 0.2 103/ul Normal 0.0-0.[address] [facility] Comment on above: Performed By: #### L IPID, CMP #### [facility] [address] [place] [address] Dr. Kartin Ceja Eosinophils/100 WBC (Bld) 2.2 % Normal 0.9-7.0 [facility] Comment on above: Performed By: #### L IPID, CMP #### [facility] [address] [place] [address] Dr. Katrin Ceja Erythrocyte distribution width (RBC) [Ratio] 11.9 % Normal 11.0-15.0 [facility] Comment on above: Performed By: #### L IPID, CMP #### [facility] [address] [place] [address] Dr. Katrin Ceja Hematocrit (Bld) [Volume fraction] 36.4 % Normal 36.0-48.0 [facility] Comment on above: Performed By: #### L IPID, CMP #### [facility] [address] [place] [address] Dr. Katrin Ceja Hemoglobin (Bld) [Mass/Vol] 12.6 g/dL Normal 12.0-16.0 [facility] Comment on above: Performed By: #### L IPID, CMP #### [facility] [address] [place] [address] Dr. Katrin Ceja IG # 0.03 10e3/ul Normal 0.00-0.03 [facility] Comment on above: Performed By: #### L IPID, CMP #### [facility] [address] [address] [address] Katrin Ceja IG % 0.3 % Normal 0.0-0.5 [facility] Comment on above: Performed By: #### L IPID, CMP #### [facility] [address] [address] [address] Katrin Ceja LYMPH # 3.5 103/ul Normal 1.2-3.8 [facility] Comment on above: Performed By: #### L IPID, CMP #### [facility] [address] [address] [address] Katrin Ceja Lymphocytes/100 WBC (Bld) 33.1 % Normal 20.5-60.0 [facility] Comment on above: Performed By: #### L IPID, CMP #### [facility] [address] [address] [address] Katrin Ceja MANUAL DIFF REQ NO Normal [facility] Comment on above: Performed By: #### L IPID, CMP #### [facility] [address] [address] [address] Katrin Ceja MCH (RBC) [Entitic mass] 29.9 pg Normal 26.7-34.0 [facility] Comment on above: Performed By: #### L IPID, CMP #### [facility] [address] [address] [address] Katrin Ceja MCHC (RBC) [Mass/Vol] 34.6 g/dL Normal 29.9-35.2 [facility] Comment on above: Performed By: #### L IPID, CMP #### [facility] [address] [address] [address] Katrin Ceja MCV (RBC) [Entitic vol] 86.5 fL Normal 81.0-99.0 [facility] Comment on above: Performed By: #### L IPID, CMP #### [facility] [address] [address] [address] Katrin Ceja MONO # 0.7 103/ul Normal 0.3-0.8 [facility] Comment on above: Performed By: #### L IPID, CMP #### [facility] [address] [place] [address] Dr. Katrin Ceja Monocytes/100 WBC (Bld) 6.5 % Normal 1.7-12.0 [facility] Comment on above: Performed By: #### L IPID, CMP #### [facility] [address] [place] [address] Dr. Katrin Ceja NEUT # 6.0 103/ul Normal 1.4-6.5 [facility] Comment on above: Performed By: #### L IPID, CMP #### [facility] [address] [place] [address] Dr. Katrin Ceja Neutrophils/100 WBC (Bld) 57.6 % Normal 43.0-75.0 [facility] Comment on above: Performed By: #### L IPID, CMP #### [facility] [address] [place] [address] Dr. Katrin Ceja Platelet mean volume (Bld) [Entitic vol] 8.7 fL Critically low 9.5-13.5 [facility] Comment on above: Performed By: #### L IPID, CMP #### [facility] [address] [place] [address] Dr. Katrin Ceja PLT 282 103/ul Normal 150-[address] [facility] Comment on above: Performed By: #### L IPID, CMP #### [facility] [address] [place] [address] Dr. Katrin Ceja RBC 4.21 106/ul Normal 4.20-5.[address] [facility] Comment on above: Performed By: #### L IPID, CMP #### [facility] [address] [place] [address] Dr. Katrin Ceja WBC 10.5 103/ul Normal 4.0-11.[address] [facility] Comment on above: Performed By: #### L IPID, CMP #### [facility] [address] [place] [address] Dr. Katrin Ceja ER URINE PROFILEon 2 Bilirubin Ql (U) Negative Normal NEGATIVE [facility] Comment on above: Performed By: #### L IPID, CMP #### [facility] [address] [place] [address] Dr. Katrin Ceja Clarity (U) CLEAR Normal CLEAR [facility] Comment on above: Performed By: #### L IPID, CMP #### [facility] [address] [address] [address] Katrin Ceja Color (U) LT. YELLOW Normal YELLOW [facility] Comment on above: Performed By: #### L IPID, CMP #### [facility] [address] [place] [address] Dr. Katrin Ceja ERUAHD A micrscopic examina tion will be performed if indicated. Normal [facility] Comment on above: Performed By: #### L IPID, CMP #### [facility] [address] [place] [address] Dr. Katrin Ceja Glucose Ql (U) Negative Normal NEGATIVE [facility] Comment on above: Performed By: #### L IPID, CMP #### [facility] [address] [place] [address] Dr. Katrin Ceja Hemoglobin Ql (U) Negative Normal NEGATIVE [facility] Comment on above: Performed By: #### L IPID, CMP #### [facility] [address] [place] [address] Dr. Katrin Ceja Ketones Ql (U) Negative Normal NEGATIVE [facility] Comment on above: Performed By: #### L IPID, CMP #### [facility] [address] [place] [address] Dr. Katrin Ceja LEUKOCYTES Negative Normal NEGATIVE [facility] Comment on above: Performed By: #### L IPID, CMP #### [facility] [address] [place] [address] Dr. Katrin Ceja Nitrite Ql (U) Negative Normal NEGATIVE [facility] Comment on above: Performed By: #### L IPID, CMP #### [facility] [address] [place] [address] Dr. Katrin Ceja pH (U) 6.0 [pH] Normal 5-9 [facility] Comment on above: Performed By: #### L IPID, CMP #### [facility] [address] [place] [address] Dr. Katrin Ceja SPEC GRAVITY 1.015 Normal 1.005-<=1. 025 [facility] Comment on above: Performed By: #### L IPID, CMP #### [facility] [address] [place] [address] Dr. Katrin Ceja UA PROTEIN Negative Normal NEGATIVE/ TRACE [facility] Comment on above: Performed By: #### L IPID, CMP #### [facility] [address] [place] [address] Dr. Katrin Ceja UR MICRO IND NOT INDICATED Normal [facility] Comment on above: Performed By: #### L IPID, CMP #### [facility] [address] [place] [address] Dr. Katrin Ceja Urobilinogen Qn (U) 0.2 {Jeannie'U}/dL Normal 0.2 - 1. 0 [facility] Comment on above: Performed By: #### L IPID, CMP #### [facility] [address] [place] [address] Dr. Katrin Ceja LIPASEon 03-22-2022 Lipase [Catalytic activity/Vol] 84.0 U/L Normal 73.0-393.0 [facility] Comment on above: Performed By: #### H STROPN, CMP, LIPA #### [facility] [address] [place] [address] Dr. Katrin Ceja URon 03-22-2022 , QUAL Negative Normal NEGATIVE [facility] Comment on above: Performed By: #### L IPID, CMP #### [facility] [address] [place] [address] Dr. Katrin Ceja PROF 14(COMP METB)on 022 Albumin [Mass/Vol] 3.2 g/dL Critically low 3.4-5.0 [facility] Comment on above: Performed By: #### H STROPN, CMP, LIPA #### [facility] [address] [address] [address] Katrin Ceja Albumin/Globulin [Mass ratio] 0.8 {ratio} Normal [facility] Comment on above: Performed By: #### H STROPN, CMP, LIPA #### [facility] [address] [address] [address] Katrin Ceja ALP [Catalytic activity/Vol] 189 U/L Critically high 46-116 [facility] Comment on above: Performed By: #### H STROPN, CMP, LIPA #### [facility] [address] [address] [address] Katrin Ceja ALT [Catalytic activity/Vol] 31 U/L Normal 14-59 [facility] Comment on above: Performed By: #### H STROPN, CMP, LIPA #### [facility] [address] [address] [address] Katrin Ceja Anion gap [Moles/Vol] 9.9 mmol/L Normal [facility] Comment on above: Performed By: #### H STROPN, CMP, LIPA #### [facility] [address] [address] [address] Katrin Ceja AST [Catalytic activity/Vol] 17 U/L Normal 15-37 [facility] Comment on above: Performed By: #### H STROPN, CMP, LIPA #### [facility] [address] [address] [address] Katrin Ceja Bilirubin [Mass/Vol] 0.2 mg/dL Normal 0.2-1.0 [facility] Comment on above: Performed By: #### H STROPN, CMP, LIPA #### [facility] [address] [address] [address] Katrin Ceja Calcium [Mass/Vol] 8.7 mg/dL Normal 8.5-10.1 [facility] Comment on above: Performed By: #### H STROPN, CMP, LIPA #### [facility] [address] [address] [address] Katrin Ceja Chloride [Moles/Vol] 103 mmol/L Normal 98-107 [facility] Comment on above: Performed By: #### H STROPN, CMP, LIPA #### [facility] [address] [address] [address] Katrin Ceja CO2 [Moles/Vol] 25.4 mmol/L Normal 21.0-32.0 [facility] Comment on above: Performed By: #### H STROPN, CMP, LIPA #### [facility] [address] [address] [address] Katrin Ceja Creatinine [Mass/Vol] 0.71 mg/dL Normal 0.55-1.02 [facility] Comment on above: Performed By: #### H STROPN, CMP, LIPA #### [facility] [address] [address] [address] Katrin Ceja EGFR-AF CHILEAN >60 Normal >=60 [facility] Comment on above: Performed By: #### H STROPN, CMP, LIPA #### [facility] [address] [address] [address] Katrin Ceja EGFR-NON AF CHILEAN >60 Normal >=60 [facility] Comment on above: Performed By: #### H STROPN, CMP, LIPA #### [facility] [address] [place] [address] Dr. Katrin Ceja Globulin (S) [Mass/Vol] 4.0 g/dL Normal [facility] Comment on above: Performed By: #### H STROPN, CMP, LIPA #### [facility] [address] [address] [address] Katrin Ceja Glucose [Mass/Vol] 106 mg/dL Normal 74-106 [facility] Comment on above: Performed By: #### H STROPN, CMP, LIPA #### [facility] [address] [address] [address] Katrin Ceja Potassium [Moles/Vol] 3.3 mmol/L Critically low 3.5-5.1 [facility] Comment on above: Performed By: #### H STROPN, CMP, LIPA #### [facility] [address] [address] [address] Katrin Ceja Protein [Mass/Vol] 7.2 g/dL Normal 6.4-8.2 [facility] Comment on above: Performed By: #### H STROPN, CMP, LIPA #### [facility] [address] [address] [address] Katrin Ceja Sodium [Moles/Vol] 135 mmol/L Critically low 136-145 [facility] Comment on above: Performed By: #### H STROPN, CMP, LIPA #### [facility] [address] [address] [address] Katrin Ceja Urea nitrogen [Mass/Vol] 5.0 mg/dL Critically low 7.0-18.0 [facility] Comment on above: Performed By: #### H STROPN, CMP, LIPA #### [facility] [address] [address] [address] Katrin Ceja Urea nitrogen/Creatinine [Mass ratio] 7.0 mg/mg Normal [facility] Comment on above: Performed By: #### H STROPN, CMP, LIPA #### [facility] [address] [address] [address] Katrin Ceja TROPONIN, HIGH SENSITIVITYon 03-22-2022 HSTROP <4.0 Normal 4.0-51.3 [facility] Comment on above: Result Comment: CUT- OFF POINTS HAVE BEEN ESTABLISHED BASED ON THE FOURTH UNIVERSAL DEFINITIONS OF MYOCARDIAL INFARCTION. THE UPPER REFERENCE LIMIT (URL) OF TROPONIN, DEFINED THE 99TH PERCENTILE OF cTnI DISTRIBUTION IN A REFERENCE POPULATION, HAS BEEN CONFIRMED THE DECISION THRESHOLD FOR CA DIAGNOSIS. Performed By: #### H STROPN, CMP, LIPA #### [facility] [address] [place] [address] Dr. Katrin Ceja XR ABD FLAT UP_PA [...] GERI LASSITER Date: 2022-03-22 01:53 Normal [address] [facility] XR ANKLE LT MIN 3 Von 2021 XR ANKLE LT MIN 3 V EXAM: XR ANKLE LT CA N 3 V HISTORY: Ankle pain COMPARISON: None. TECHNIQUE: 3 views FINDINGS: No osseous lesion, fracture, dislocation or subluxation. Joint spaces are normal. Old posttraumatic ossifications adjacent to the tip of the lateral malleolus. No visualized effusion. No visualized soft tissue edema. IMPRESSION: Normal x-rays Electronically authenticated by: DANNI QUINONES Date: 2022-03-09 19:32 Normal [address] [facility] CBC AUTO DIFFon 02-08-2022 BASO # 0.0 103/ul Normal 0.0-0.1 [facility] Comment on above: Performed By: #### C BC #### [facility] [address] [place] [address] Dr. Katrin Ceja Basophils/100 WBC (Bld) 0.3 % Normal 0.2-2.0 [facility] Comment on above: Performed By: #### C BC #### [facility] [address] [place] [address] Dr. Katrin Ceja EO # 0.3 103/ul Normal 0.0-0.7 [facility] Comment on above: Performed By: #### C BC #### [facility] [address] [address] [address] Katrin Ceja Eosinophils/100 WBC (Bld) 3.0 % Normal 0.9-7.0 [facility] Comment on above: Performed By: #### C BC #### [facility] [address] [place] [address] Dr. Katrin Ceja Erythrocyte distribution width (RBC) [Ratio] 12.2 % Normal 11.0-15.0 [facility] Comment on above: Performed By: #### C BC #### [facility] [address] [place] [address] Dr. Katrin Ceja Hematocrit (Bld) [Volume fraction] 33.8 % Critically low 36.0-48.0 [facility] Comment on above: Performed By: #### C BC #### [facility] [address] [place] [address] Dr. Katrin Ceja Hemoglobin (Bld) [Mass/Vol] 11.9 g/dL Critically low 12.0-16.0 [facility] Comment on above: Performed By: #### C BC #### [facility] [address] [place] [address] Dr. Katrin Ceja IG # 0.04 10e3/ul Critically high 0.00-0.03 [facility] Comment on above: Performed By: #### C BC #### [facility] [address] [place] [address] Dr. Katrin Ceja IG % 0.4 % Normal 0.0-0.5 [facility] Comment on above: Performed By: #### C BC #### [facility] [address] [place] [address] Dr. Katrin Ceja LYMPH # 3.0 103/ul Normal 1.2-3.8 [facility] Comment on above: Performed By: #### C BC #### [facility] [address] [place] [address] Dr. Katrin Ceja Lymphocytes/100 WBC (Bld) 28.4 % Normal 20.5-60.0 [facility] Comment on above: Performed By: #### C BC #### [facility] [address] [place] [address] Dr. Katrin Ceja MANUAL DIFF REQ NO Normal [facility] Comment on above: Performed By: #### C BC #### [facility] [address] [place] [address] Dr. Katrin Ceja MCH (RBC) [Entitic mass] 29.8 pg Normal 26.7-34.0 [facility] Comment on above: Performed By: #### C BC #### [facility] [address] [address] [address] Katrin Ceja MCHC (RBC) [Mass/Vol] 35.2 g/dL Normal 29.9-35.2 [facility] Comment on above: Performed By: #### C BC #### [facility] [address] [address] [address] Katrin Ceja MCV (RBC) [Entitic vol] 84.7 fL Normal 81.0-99.0 [facility] Comment on above: Performed By: #### C BC #### [facility] [address] [address] [address] Katrin Ceja MONO # 0.7 103/ul Normal 0.3-0.8 [facility] Comment on above: Performed By: #### C BC #### [facility] [address] [address] [address] Katrin Ceja Monocytes/100 WBC (Bld) 6.6 % Normal 1.7-12.0 [facility] Comment on above: Performed By: #### C BC #### [facility] [address] [address] [address] Katrin Ceja NEUT # 6.4 103/ul Normal 1.4-6.5 [facility] Comment on above: Performed By: #### C BC #### [facility] [address] [address] [address] Katrin Ceja Neutrophils/100 WBC (Bld) 61.3 % Normal 43.0-75.[address] [facility] Comment on above: Performed By: #### C BC #### [facility] [address] [address] [address] Katrin Ceja Platelet mean volume (Bld) [Entitic vol] 8.9 fL Critically low 9.5-13.5 [facility] Comment on above: Performed By: #### C BC #### [facility] [address] [address] [address] Katrin Ceja PLT 299 103/ul Normal 150-[address] [facility] Comment on above: Performed By: #### C BC #### [facility] [address] [address] [address] Katrin Ceja RBC 3.99 106/ul Critically low 4.20-5.40 [facility] Comment on above: Performed By: #### C BC #### [facility] [address] [place] [address] Dr. Katrin Ceja WBC 10.4 103/ul Normal 4.0-11.0 [facility] Comment on above: Performed By: #### C BC #### [facility] [address] [place] [address] Dr. Katrin Ceja D-DIMERon 02-08-2022 D-DIMER 0.59 mg/L FEU Normal <=0.59 [facility] Comment on above: Performed By: #### L IPID, CMP #### [facility] [address] [place] [address] Dr. Katrin Ceja D-DIMER COMMENTS SEE BELOW Normal [facility] Comment on above: Result Comment: [...] Performed By: #### L IPID, CMP #### [facility] [address] [place] [address] Dr. Katrin Ceja PROF CHEM 8 (BAS METB)on Anion gap [Moles/Vol] 12.8 mmol/L Normal [facility] Comment on above: Performed By: #### C BC #### [facility] [address] [place] [address] Dr. Katrin Ceja Calcium [Mass/Vol] 8.7 mg/dL Normal 8.5-10.1 [facility] Comment on above: Performed By: #### C BC #### [facility] [address] [address] [address] Katrin Ceja Chloride [Moles/Vol] 102 mmol/L Normal 98-[address] [facility] Comment on above: Performed By: #### C BC #### [facility] [address] [address] [address] Katrin Ceja CO2 [Moles/Vol] 25.9 mmol/L Normal 21.0-32.0 [facility] Comment on above: Performed By: #### C BC #### [facility] [address] [address] [address] Katrin Ceja Creatinine [Mass/Vol] 0.70 mg/dL Normal 0.55-1.[address] [facility] Comment on above: Performed By: #### C BC #### [facility] [address] [address] [address] Katrin Ceja EGFR-AF CHILEAN >60 Normal >=60 [facility] Comment on above: Performed By: #### C BC #### [facility] [address] [address] [address] Katrin Ceja EGFR-NON AF CHILEAN >60 Normal >=60 [facility] Comment on above: Performed By: #### C BC #### [facility] [address] [address] [address] Katrin Ceja Glucose [Mass/Vol] 95 mg/dL Normal 74-106 [facility] Comment on above: Performed By: #### C BC #### [facility] [address] [address] [address] Katrin Ceja Potassium [Moles/Vol] 2.7 mmol/L Critically low 3.5-5.[address] [facility] Comment on above: Result Comment: Test Repeated. Critical Value Verified Performed By: #### C BC #### [facility] [address] [place] [address] Dr. Katrin Ceja Sodium [Moles/Vol] 136 mmol/L Normal 136-145 [facility] Comment on above: Performed By: #### C BC #### [facility] [address] [place] [address] Dr. Katrin Ceja Urea nitrogen [Mass/Vol] 3.0 mg/dL Critically low 7.0-18.0 [facility] Comment on above: Performed By: #### C BC #### [facility] [address] [address] [address] Katrin Ceja Urea nitrogen/Creatinine [Mass ratio] 4.3 mg/mg Normal [facility] Comment on above: Performed By: #### C BC #### [facility] [address] [address] [address] Katrin Ceja XR CHEST 2 Von [...] by: RIVER SAID Date: 2022-02-08 04:19 Normal [facility] LIPID PROFILEon 12-18-2021 CHOL-HDL RATIO NORM SEE BELOW Normal [facility] Comment on above: Result Comment: 3.3 - 4.4 LOW RISK 4.4 - 7.1 AVERAGE RISK 7.1 - 11.0 MODERATE RISK >11.0 HIGH RISK Performed By: #### L IPID, LIVER #### [facility] [address] [place] [address] Dr. Katrin Ceja Cholesterol [Mass/Vol] 126 mg/dL Normal <=200 [facility] Comment on above: Performed By: #### L IPID, LIVER #### [facility] [address] [place] [address] Dr. Katrin Ceja Cholesterol in HDL [Mass/Vol] 31 mg/dL Critically low 40-60 [facility] Comment on above: Performed By: #### L IPID, LIVER #### [facility] [address] [place] [address] Dr. Katrin Ceja Cholesterol in LDL [Mass/Vol] 59.2 mg/dL Normal [facility] Comment on above: Performed By: #### L IPID, LIVER #### [facility] [address] [place] [address] Dr. Katrin Ceja Cholesterol.total/Chol esterol in HDL [Mass ratio] 4.1 {ratio} Normal [facility] Comment on above: Performed By: #### L IPID, LIVER #### [facility] [address] [address] [address] Katrin Ceja HDL NORMAL > or = 60 mg/dl - LO W CARDIOVASCULAR RISK <40 mg/dl - HIGH CARDIOVASCULAR RISK Normal [facility] Comment on above: Performed By: #### L IPID, LIVER #### [facility] [address] [place] [address] Dr. Katrin Ceja LDL CALC NORMAL SEE BELOW Normal [facility] Comment on above: Result Comment: <100 mg/dl OPTIMAL 100 - 129 mg/dl NEAR OR ABOVE OPTIMAL 130 - 159 mg/dl BORDERLINE HIGH 160 - 189 mg/dl HIGH >190 mg/dl VERY HIGH Performed By: #### L IPID, LIVER #### [facility] [address] [place] [address] Dr. Katrin Ceja Triglyceride [Mass/Vol] 179 mg/dL Critically high <=150 [facility] Comment on above: Performed By: #### L IPID, LIVER #### [facility] [address] [place] [address] Dr. Katrin Ceja VLDL CALC 35.8 mg/dL Normal [facility] Comment on above: Performed By: #### L IPID, LIVER #### [facility] [address] [place] [address] Dr. Katrin Ceja LIVER PROFILEon 12-18-2021 Albumin [Mass/Vol] 3.6 g/dL Normal 3.4-5.0 [facility] Comment on above: Performed By: #### L IPID, LIVER #### [facility] [address] [place] [address] Dr. Katrin Ceja Albumin/Globulin [Mass ratio] 0.8 {ratio} Normal [facility] Comment on above: Performed By: #### L IPID, LIVER #### [facility] [address] [address] [address] Katrin Ceja ALP [Catalytic activity/Vol] 196 U/L Critically high 46-116 [facility] Comment on above: Performed By: #### L IPID, LIVER #### [facility] [address] [address] [address] Katrin Ceja ALT [Catalytic activity/Vol] 51 U/L Normal 14-59 [facility] Comment on above: Performed By: #### L IPID, LIVER #### [facility] [address] [address] [address] Katrin Ceja AST [Catalytic activity/Vol] 22 U/L Normal 15-37 [facility] Comment on above: Performed By: #### L IPID, LIVER #### [facility] [address] [address] [address] Katrin eCja BILI, CONJUGATED 0.1 mg/dL Normal 0.0-0.2 [facility] Comment on above: Performed By: #### L IPID, LIVER #### [facility] [address] [address] [address] Katrin Ceja Bilirubin [Mass/Vol] 0.4 mg/dL Normal 0.2-1.0 [facility] Comment on above: Performed By: #### L IPID, LIVER #### [facility] [address] [address] [address] Katrin Ceja Globulin (S) [Mass/Vol] 4.4 g/dL Normal [facility] Comment on above: Performed By: #### L IPID, LIVER #### [facility] [address] [address] [address] Katrin Ceja Protein [Mass/Vol] 8.0 g/dL Normal 6.4-8.2 [facility] Comment on above: Performed By: #### L IPID, LIVER #### [facility] [address] [address] [address] Katrin Ceja XR FOOT RT MIN [...] RIVER SAID Date: 2021-12-07 00:19 Normal [facility] PROF 14(COMP METB)on 022 Albumin [Mass/Vol] 3.6 g/dL Normal 3.4-5.0 [facility] Comment on above: Performed By: #### L IPID, CMP #### [facility] [address] [place] [address] Dr. Katrin Ceja Albumin/Globulin [Mass ratio] 0.8 {ratio} Normal [facility] Comment on above: Performed By: #### L IPID, CMP #### [facility] [address] [place] [address] Dr. Katrin Ceja ALP [Catalytic activity/Vol] 209 U/L Critically high 46-116 [facility] Comment on above: Performed By: #### L IPID, CMP #### [facility] [address] [place] [address] Dr. Katrin Ceja ALT [Catalytic activity/Vol] 65 U/L Critically high 14-59 [facility] Comment on above: Performed By: #### L IPID, CMP #### [facility] [address] [address] [address] Katrin Ceja Anion gap [Moles/Vol] 15.7 mmol/L Normal [facility] Comment on above: Performed By: #### L IPID, CMP #### [facility] [address] [place] [address] Dr. Katrin Ceja AST [Catalytic activity/Vol] 31 U/L Normal 15-37 [facility] Comment on above: Performed By: #### L IPID, CMP #### [facility] [address] [address] [address] Katrin Ceja Bilirubin [Mass/Vol] 0.2 mg/dL Normal 0.2-1.3 [facility] Comment on above: Performed By: #### L IPID, CMP #### [facility] [address] [place] [address] Dr. Katrin Ceja Calcium [Mass/Vol] 8.8 mg/dL Normal 8.5-10.1 [facility] Comment on above: Performed By: #### L IPID, CMP #### [facility] [address] [place] [address] Dr. Katrin Ceja Chloride [Moles/Vol] 105 mmol/L Normal 98-107 [facility] Comment on above: Performed By: #### L IPID, CMP #### [facility] [address] [place] [address] Dr. Katrin Ceja CO2 [Moles/Vol] 21.3 mmol/L Critically low 22.0-30.0 [facility] Comment on above: Performed By: #### L IPID, CMP #### [facility] [address] [place] [address] Dr. Katrin Ceja Creatinine [Mass/Vol] 0.72 mg/dL Normal 0.52-1.04 [facility] Comment on above: Performed By: #### L IPID, CMP #### [facility] [address] [place] [address] Dr. Katrin Ceja EGFR-AF CHILEAN >60 Normal >=60 [facility] Comment on above: Performed By: #### L IPID, CMP #### [facility] [address] [place] [address] Dr. Katrin Ceja EGFR-NON AF CHILEAN >60 Normal >=60 [facility] Comment on above: Performed By: #### L IPID, CMP #### [facility] [address] [place] [address] Dr. Katrin Ceja Globulin (S) [Mass/Vol] 4.3 g/dL Normal [facility] Comment on above: Performed By: #### L IPID, CMP #### [facility] [address] [address] [address] Katrin Ceja Glucose [Mass/Vol] 99 mg/dL Normal 74-106 [facility] Comment on above: Performed By: #### L IPID, CMP #### [facility] [address] [place] [address] Dr. Katrin Ceja Potassium [Moles/Vol] 4.0 mmol/L Normal 3.4-5.0 [facility] Comment on above: Performed By: #### L IPID, CMP #### [facility] [address] [place] [address] Dr. Katrin Ceja Protein [Mass/Vol] 7.9 g/dL Normal 6.1-8.2 [facility] Comment on above: Performed By: #### L IPID, CMP #### [facility] [address] [place] [address] Dr. Katrin Ceja Sodium [Moles/Vol] 138 mmol/L Normal 137-145 [facility] Comment on above: Performed By: #### L IPID, CMP #### [facility] [address] [place] [address] Dr. Katrin Ceja Urea nitrogen [Mass/Vol] 13.0 mg/dL Normal 7.0-18.0 [facility] Comment on above: Performed By: #### L IPID, CMP #### [facility] [address] [place] [address] Dr. Katrin Ceja Urea nitrogen/Creatinine [Mass ratio] 18.1 mg/mg Normal [facility] Comment on above: Performed By: #### L IPID, CMP #### [facility] [address] [place] [address] Dr. Katrin Ceja XR HUMERUS RT MIN [...] MODESTA NAVA Date: 2021-10-17 01:46 Normal [facility] XR SHOULDER RT 2V or >on [...] MODESTA NAVA Date: 2021-10-17 01:45 Normal [facility] XR WRIST RT MIN 3 Von 2021 XR WRIST RT MIN 3 V EXAM: XR WRIST RT CA N 3 V HISTORY: Pain acute right arm pain following fall. COMPARISON: None. TECHNIQUE: AP, oblique and lateral views of the right wrist. FINDINGS: No acute or intrinsic osseous, articular or soft tissue abnormality is seen. IMPRESSION: No acute right wrist findings. Electronically authenticated by: MODESTA NAVA Date: 2021-10-17 01:44 Normal [address] [facility] AMYLASEon 09-18-2021 Amylase [Catalytic activity/Vol] 34 U/L Normal 31-[address] [facility] Comment on above: Performed By: #### P REG #### [facility] [address] [place] [address] Dr. Katrin Ceja CBC AUTO DIFFon 09-18-2021 BASO # 0.0 103/ul Normal 0.0-0.1 [facility] Comment on above: Performed By: #### C BC #### [facility] [address] [place] [address] Dr. Katrin Ceja Basophils/100 WBC (Bld) 0.3 % Normal 0.2-2.0 [facility] Comment on above: Performed By: #### C BC #### [facility] [address] [place] [address] Dr. Katrin Ceja EO # 0.2 103/ul Normal 0.0-0.7 [facility] Comment on above: Performed By: #### C BC #### [facility] [address] [place] [address] Dr. Katrin Ceja Eosinophils/100 WBC (Bld) 2.4 % Normal 0.9-7.0 [facility] Comment on above: Performed By: #### C BC #### [facility] [address] [place] [address] Dr. Katrin Ceja Erythrocyte distribution width (RBC) [Ratio] 12.5 % Normal 11.0-15.0 [facility] Comment on above: Performed By: #### C BC #### [facility] [address] [place] [address] Dr. Katrin Ceja Hematocrit (Bld) [Volume fraction] 37.4 % Normal 36.0-48.0 [facility] Comment on above: Performed By: #### C BC #### [facility] [address] [place] [address] Dr. Katrin Ceja Hemoglobin (Bld) [Mass/Vol] 12.3 g/dL Normal 12.0-16.0 [facility] Comment on above: Performed By: #### C BC #### [facility] [address] [place] [address] Dr. Katrin Ceja IG # 0.05 10e3/ul Critically high 0.00-0.03 [facility] Comment on above: Performed By: #### C BC #### [facility] [address] [place] [address] Dr. Katrin Ceja IG % 0.5 % Normal 0.0-0.5 [facility] Comment on above: Performed By: #### C BC #### [facility] [address] [place] [address] Dr. Katrin Ceja LYMPH # 3.1 103/ul Normal 1.2-3.[address] [facility] Comment on above: Performed By: #### C BC #### [facility] [address] [place] [address] Dr. Katrin Ceja Lymphocytes/100 WBC (Bld) 31.7 % Normal 20.5-60.0 [facility] Comment on above: Performed By: #### C BC #### [facility] [address] [place] [address] Dr. Katrin Ceja MANUAL DIFF REQ NO Normal [facility] Comment on above: Performed By: #### C BC #### [facility] [address] [place] [address] Dr. Katrin Ceja MCH (RBC) [Entitic mass] 28.9 pg Normal 26.7-34.0 [facility] Comment on above: Performed By: #### C BC #### [facility] [address] [place] [address] Dr. Katrin Ceja MCHC (RBC) [Mass/Vol] 32.9 g/dL Normal 29.9-35.2 [facility] Comment on above: Performed By: #### C BC #### [facility] [address] [place] [address] Dr. Katrin Ceja MCV (RBC) [Entitic vol] 88.0 fL Normal 81.0-99.0 [facility] Comment on above: Performed By: #### C BC #### [facility] [address] [place] [address] Dr. Katrin Ceja MONO # 0.7 103/ul Normal 0.3-0.8 [facility] Comment on above: Performed By: #### C BC #### [facility] [address] [place] [address] Dr. Katrin Ceja Monocytes/100 WBC (Bld) 6.7 % Normal 1.7-12.0 [facility] Comment on above: Performed By: #### C BC #### [facility] [facility] [address] [place] [address] Dr. Katrin Ceja NEUT # 5.7 103/ul Normal 1.4-6.[address] [facility] Comment on above: Performed By: #### C BC #### [facility] [address] [place] [address] Dr. Katrin Ceja Neutrophils/100 WBC (Bld) 58.4 % Normal 43.0-75.0 [facility] Comment on above: Performed By: #### C BC #### [facility] [address] [place] [address] Dr. Katrin Ceja Platelet mean volume (Bld) [Entitic vol] 8.8 fL Critically low 9.5-13.5 [facility] Comment on above: Performed By: #### C BC #### [facility] [address], [place] [address] Dr. Katrin Ceja PLT 265 103/ul Normal 150-[address] [facility] Comment on above: Performed By: #### C BC #### [facility] [id number] Katrin Ceja RBC 4.25 106/ul Normal 4.20-5.40 [facility] Comment on above: Performed By: #### C BC #### [facility] [address], [place] [address] Dr. Katrin Ceja WBC 9.7 103/ul Normal 4.0-11.0 [facility] Comment on above: Performed By: #### C BC #### [facility] [id number] Katrin Ceja CT ABD/PELV W CONon [...] ISAIAH FAROOQ Date: 2021-09-18 03:51 Normal [facility] ER URINE PROFILEon 2 Bilirubin Ql (U) Negative Normal NEGATIVE The [facility] Comment on above: Performed By: #### C BC #### [facility] [address] [place] [address] Dr. Katrin Ceja Clarity (U) CLEAR Normal CLEAR The [facility] Comment on above: Performed By: #### C BC #### [facility] [address] [place] [address] Dr. Katrin Ceja Color (U) LT. YELLOW Normal YELLOW [facility] Comment on above: Performed By: #### C BC #### [facility] [address] [place] [address] Dr. Katrin Ceja ERUAHD A micrscopic examina tion will be performed if indicated. Normal The [facility] Comment on above: Performed By: #### C BC #### [facility] [address] [place] [address] Dr. Katrin Ceja Glucose Ql (U) Negative Normal NEGATIVE The [facility] Comment on above: Performed By: #### C BC #### [facility] [address] [place] [address] Dr. Katrin Ceja Hemoglobin Ql (U) SMALL Abnormal NEGATIVE The [facility] Comment on above: Performed By: #### C BC #### [facility] [address] [place] [address] Dr. Katrin Ceja Ketones Ql (U) Negative Normal NEGATIVE [facility] Comment on above: Performed By: #### C BC #### [facility] [address] [place] [address] Dr. Katrin Ceja LEUKOCYTES Negative Normal NEGATIVE [facility] Comment on above: Performed By: #### C BC #### [facility] [address] [place] [address] Dr. Katrin Ceja Nitrite Ql (U) Negative Normal NEGATIVE [facility] Comment on above: Performed By: #### C BC #### [facility] [address] [place] [address] Dr. Katrin Ceja pH (U) 7.5 [pH] Normal 5-9 [facility] Comment on above: Performed By: #### C BC #### [facility] [address] [place] [address] Dr. Katrin Ceja SPEC GRAVITY 1.010 Normal 1.005-<=1. 025 [facility] Comment on above: Performed By: #### C BC #### [facility] [address] [place] [address] Dr. Katrin Ceja UA PROTEIN Negative Normal NEGATIVE/ TRACE [facility] Comment on above: Performed By: #### C BC #### [facility] [address] [place] [address] Dr. Katrin Ceja UR MICRO IND INDICATED Normal [facility] Comment on above: Performed By: #### C BC #### [facility] [address] [place] [address] Dr. Katrin Ceja Urobilinogen Qn (U) 0.2 {Jeannie'U}/dL Normal 0.2 - 1. 0 [facility] Comment on above: Performed By: #### C BC #### [facility] [address] [place] [address] Dr. Katrin Ceja LIPASEon 09-18-2021 Lipase [Catalytic activity/Vol] 81.0 U/L Normal 23.0-300.0 [facility] Comment on above: Performed By: #### P REG #### [facility] [address] [place] [address] Dr. Katrin Ceja URon 09-18-2021 , QUAL Negative Normal NEGATIVE The [facility] Comment on above: Performed By: #### C BC #### [facility] [address] [place] [address] Dr. Katrin Ceja PROF 14(COMP METB)on 022 Albumin [Mass/Vol] 3.2 g/dL Critically low 3.5-5.0 Th [facility] Comment on above: Performed By: #### P REG #### [facility] [address] [address] [address] Katrin Ceja Albumin/Globulin [Mass ratio] 0.8 {ratio} Normal [facility] Comment on above: Performed By: #### P REG #### [facility] [address] [address] [address] Katrin Ceja ALP [Catalytic activity/Vol] 216 U/L Critically high 38-126 [facility] Comment on above: Performed By: #### P REG #### [facility] [address] [place] [address] Dr. Katrin Ceja ALT [Catalytic activity/Vol] 109 U/L Critically high 9-52 [facility] Comment on above: Performed By: #### P REG #### [facility] [address] [place] [address] Dr. Katrin Ceja Anion gap [Moles/Vol] 10.5 mmol/L Normal [facility] Comment on above: Performed By: #### P REG #### [facility] [address] [place] [address] Dr. Katrin Ceja AST [Catalytic activity/Vol] 66 U/L Critically high 14-36 [facility] Comment on above: Performed By: #### P REG #### [facility] [address] [place] [address] Dr. Katrin Ceja Bilirubin [Mass/Vol] 0.2 mg/dL Normal 0.2-1.3 [facility] Comment on above: Performed By: #### P REG #### [facility] [address] [place] [address] Dr. Katrin Ceja Calcium [Mass/Vol] 8.3 mg/dL Critically low 8.4-10.2 [facility] Comment on above: Performed By: #### P REG #### [facility] [address] [place] [address] Dr. Katrin Ceja Chloride [Moles/Vol] 103 mmol/L Normal 98-107 [facility] Comment on above: Performed By: #### P REG #### [facility] [address] [place] [address] Dr. Katrin Ceja CO2 [Moles/Vol] 26.2 mmol/L Normal 22.0-30.0 [facility] Comment on above: Performed By: #### P REG #### [facility] [address] [place] [address] Dr. Katrin Ceja Creatinine [Mass/Vol] 0.81 mg/dL Normal 0.52-1.04 [facility] Comment on above: Performed By: #### P REG #### [facility] [address] [address] [address] Katrin Ceja EGFR-AF CHILEAN >60 Normal >=60 The [facility] Comment on above: Performed By: #### P REG #### [facility] [address] [place] [address] Dr. Katrin Ceja EGFR-NON AF CHILEAN >60 Normal >=60 [facility] Comment on above: Performed By: #### P REG #### [facility] [address] [place] [address] Dr. Katrin Ceja Globulin (S) [Mass/Vol] 4.1 g/dL Normal [facility] Comment on above: Performed By: #### P REG #### [facility] [address] [place] [address] Dr. Katrin Ceja Glucose [Mass/Vol] 90 mg/dL Normal 74-106 [facility] Comment on above: Performed By: #### P REG #### [facility] [address] [place] [address] Dr. Katrin Ceja Potassium [Moles/Vol] 3.7 mmol/L Normal 3.4-5.0 [facility] Comment on above: Performed By: #### P REG #### [facility] [address] [place] [address] Dr. Katrin Ceja Protein [Mass/Vol] 7.3 g/dL Normal 6.1-8.2 [facility] Comment on above: Performed By: #### P REG #### [facility] [address] [place] [address] Dr. Katrin Ceja Sodium [Moles/Vol] 136 mmol/L Critically low 137-[address] [facility] Comment on above: Performed By: #### P REG #### [facility] [address] [address] [address] Katrin Ceja Urea nitrogen [Mass/Vol] 5.0 mg/dL Critically low 7.0-17.0 [facility] Comment on above: Performed By: #### P REG #### [facility] [address] [place] [address] Dr. Katrin Ceja Urea nitrogen/Creatinine [Mass ratio] 6.2 mg/mg Normal The [facility] Comment on above: Performed By: #### P REG #### [facility] [address] [place] [address] Dr. Katrin Ceja URINE MICROSCOPIC ONLYon BACTERIA NONE SEEN Normal NONE SEEN [facility] Comment on above: Performed By: #### C BC #### [facility] [address] [place] [address] Dr. Katrin Ceja Bacteria identified Cx Nom (U) NOT INDICATED Normal The [facility] Comment on above: Performed By: #### C BC #### [facility] [address] [place] [address] Dr. Katrin Ceja CAST NONE SEEN Normal NONE SEEN [facility] Comment on above: Performed By: #### C BC #### [facility] [address] [place] [address] Dr. Katrin Ceja Crystals LM Nom (Urine sed) NONE SEEN Normal NONE SEEN [facility] Comment on above: Performed By: #### C BC #### [facility] [address] [place] [address] Dr. Katrin Ceja Epithelial cells LM Ql (Urine sed) FEW Abnormal NONE SEEN /RARE The [facility] Comment on above: Performed By: #### C BC #### [facility] [address] [place] [address] Dr. Katrin Ceja MUCOUS NONE SEEN Normal NONE SEEN [facility] Comment on above: Performed By: #### C BC #### [facility] [address] [place] [address] Dr. Katrin Ceja RBC NONE SEEN Abnormal 0-[address] [facility] Comment on above: Performed By: #### C BC #### [facility] [address] [place] [address] Dr. Katrin Ceja WBC NONE SEEN Normal NONE SEEN The [facility] Comment on above: Performed By: #### C BC #### [facility] [address] [place] [address] Dr. Katrin Ceja XR ABD FLAT UP_PA [...] ISAIAH FAROOQ Date: 2021-09-18 02:00 Normal [address] [facility] CBC AUTO DIFFon 07-18-2021 BASO # 0.0 103/ul Normal 0.0-0.1 [facility] Comment on above: Performed By: #### C BC #### [facility] [address] [place] [address] Dr. Katrin Ceja Basophils/100 WBC (Bld) 0.3 % Normal 0.2-2.[address] [facility] Comment on above: Performed By: #### C BC #### [facility] [address] [place] [address] Dr. Katrin Ceja EO # 0.2 103/ul Normal 0.0-0.[address] [facility] Comment on above: Performed By: #### C BC #### [facility] [address] [place] [address] Dr. Katrin Ceja Eosinophils/100 WBC (Bld) 1.7 % Normal 0.9-7.0 [facility] Comment on above: Performed By: #### C BC #### [facility] [address] [place] [address] Dr. Katrin Ceja Erythrocyte distribution width (RBC) [Ratio] 13.1 % Normal 11.0-15.0 [facility] Comment on above: Performed By: #### C BC #### [facility] [address] [place] [address] Dr. Katrin Ceja Hematocrit (Bld) [Volume fraction] 42.0 % Normal 36.0-48.0 [facility] Comment on above: Performed By: #### C BC #### [facility] [address] [place] [address] Dr. Katrin Ceja Hemoglobin (Bld) [Mass/Vol] 13.7 g/dL Normal 12.0-16.0 [facility] Comment on above: Performed By: #### C BC #### [facility] [address] [place] [address] Dr. Katrin Ceja IG # 0.07 10e3/ul Critically high 0.00-0.03 [facility] Comment on above: Performed By: #### C BC #### [facility] [address] [place] [address] Dr. Katrin Ceja IG % 0.6 % Critically high 0.0-0.5 [facility] Comment on above: Performed By: #### C BC #### [facility] [address] [place] [address] Dr. Katrin Ceja LYMPH # 2.9 103/ul Normal 1.2-3.8 [facility] Comment on above: Performed By: #### C BC #### [facility] [address] [place] [address] Dr. Katrin Ceja Lymphocytes/100 WBC (Bld) 27.1 % Normal 20.5-60.0 [facility] Comment on above: Performed By: #### C BC #### [facility] [address] [place] [address] Dr. Katrin Ceja MANUAL DIFF REQ NO Normal [facility] Comment on above: Performed By: #### C BC #### [facility] [address] [place] [address] Dr. Katrin Ceja MCH (RBC) [Entitic mass] 29.3 pg Normal 26.7-34.0 [facility] Comment on above: Performed By: #### C BC #### [facility] [address] [address] [address] Katrin Ceja MCHC (RBC) [Mass/Vol] 32.6 g/dL Normal 29.9-35.2 [facility] Comment on above: Performed By: #### C BC #### [facility] [address] [address] [address] Katrin Ceja MCV (RBC) [Entitic vol] 89.7 fL Normal 81.0-99.0 [facility] Comment on above: Performed By: #### C BC #### [facility] [address] [place] [address] Dr. Katrin Ceja MONO # 0.9 103/ul Critically high 0.3-0.[address] [facility] Comment on above: Performed By: #### C BC #### [facility] [address] [place] [address] Dr. Katrin Ceja Monocytes/100 WBC (Bld) 8.2 % Normal 1.7-12.0 [facility] Comment on above: Performed By: #### C BC #### [facility] [address] [place] [address] Dr. Katrin Ceja NEUT # 6.7 103/ul Critically high 1.4-6.[address] [facility] Comment on above: Performed By: #### C BC #### [facility] [address] [place] [address] Dr. Katrin Ceja Neutrophils/100 WBC (Bld) 62.1 % Normal 43.0-75.[address] [facility] Comment on above: Performed By: #### C BC #### [facility] [address] [place] [address] Dr. Katrin Ceja Platelet mean volume (Bld) [Entitic vol] 9.7 fL Normal 9.5-13.[address] [facility] Comment on above: Performed By: #### C BC #### [facility] [address] [place] [address] Dr. Katrin Ceja PLT 334 103/ul Normal 150-450 [facility] Comment on above: Performed By: #### C BC #### [facility] [address] [address] [address] Katrin Ceja RBC 4.68 106/ul Normal 4.20-5.40 [facility] Comment on above: Performed By: #### C BC #### [facility] [address] [address] [address] Katrin eCja WBC 10.8 103/ul Normal 4.0-11.0 [facility] Comment on above: Performed By: #### C BC #### [facility] [address] [address] [address] Katrin Ceja GLYCOHEMOGLOBIN A1Con 2021 ADA RECOMMENDATION ADA THERAPEUTIC TARG ET 6.0 - 7.0 ACTION SUGGESTED > 7.0 Normal [facility] Comment on above: Performed By: #### C BC #### [facility] [address] [place] [address] Dr. Katrin Ceja Glucose [Mass/Vol] 105 mg/dL Normal [facility] Comment on above: Performed By: #### C BC #### [facility] [address] [place] [address] Dr. Katrin Ceja HbA1c (Bld) [Mass fraction] 5.3 % Normal <=6.0 [facility] Comment on above: Performed By: #### C BC #### [facility] [address] [place] [address] Dr. Katrin Ceja LIPID PROFILEon 07-18-2021 CHOL-HDL RATIO NORM SEE BELOW Normal [facility] Comment on above: Result Comment: 3.3 - 4.4 LOW RISK 4.4 - 7.1 AVERAGE RISK 7.1 - 11.0 MODERATE RISK >11.0 HIGH RISK Performed By: #### L IPID, CMP #### [facility] [address] [place] [address] Dr. Katrin Ceja Cholesterol [Mass/Vol] 302 mg/dL Critically high <=200 [facility] Comment on above: Performed By: #### L IPID, CMP #### [facility] [address] [address] [address] Katrin Ceja Cholesterol in HDL [Mass/Vol] 39 mg/dL Normal [facility] Comment on above: Performed By: #### L IPID, CMP #### [facility] [address] [address] [address] Katrin Ceja Cholesterol in LDL [Mass/Vol] 207.0 mg/dL Normal [facility] Comment on above: Performed By: #### L IPID, CMP #### [facility] [address] [place] [address] Dr. Katrin Ceja Cholesterol.total/Chol esterol in HDL [Mass ratio] 7.7 {ratio} Normal [facility] Comment on above: Performed By: #### L IPID, CMP #### [facility] [address] [place] [address] Dr. Katrin Ceja HDL NORMAL > or = 60 mg/dl - LO W CARDIOVASCULAR RISK <40 mg/dl - HIGH CARDIOVASCULAR RISK Normal [facility] Comment on above: Performed By: #### L IPID, CMP #### [facility] [address] [place] [address] Dr. Katrin Ceja LDL CALC NORMAL SEE BELOW Normal [facility] Comment on above: Result Comment: <100 mg/dl OPTIMAL 100 - 129 mg/dl NEAR OR ABOVE OPTIMAL 130 - 159 mg/dl BORDERLINE HIGH 160 - 189 mg/dl HIGH >190 mg/dl VERY HIGH Performed By: #### L IPID, CMP #### [facility] [address] [place] [address] Dr. Katrin Ceja Triglyceride [Mass/Vol] 280 mg/dL Critically high <=[address] [facility] Comment on above: Performed By: #### L IPID, CMP #### [facility] [address] [place] [address] Dr. Katrin Ceja VLDL CALC 56.0 mg/dL Normal [facility] Comment on above: Performed By: #### L IPID, CMP #### [facility] [address] [place] [address] Dr. Katrin Ceja PROF 14(COMP METB)on 022 Albumin [Mass/Vol] 3.5 g/dL Normal 3.5-5.0 [facility] Comment on above: Performed By: #### L IPID, CMP #### [facility] [address] [address] [address] Katrin Ceja Albumin/Globulin [Mass ratio] 0.7 {ratio} Normal [facility] Comment on above: Performed By: #### L IPID, CMP #### [facility] [address] [address] [address] Katrin Ceja ALP [Catalytic activity/Vol] 291 U/L Critically high 38-126 [facility] Comment on above: Performed By: #### L IPID, CMP #### [facility] [address] [address] [address] Katrin Ceja ALT [Catalytic activity/Vol] 174 U/L Critically high 9-52 [facility] Comment on above: Performed By: #### L IPID, CMP #### [facility] [address] [address] [address] Katrin Ceja Anion gap [Moles/Vol] 15.3 mmol/L Normal [facility] Comment on above: Performed By: #### L IPID, CMP #### [facility] [address] [place] [address] Dr. Katrin Ceja AST [Catalytic activity/Vol] 97 U/L Critically high 14-36 [facility] Comment on above: Performed By: #### L IPID, CMP #### [facility] [address] [address] [address] Katrin Ceja Bilirubin [Mass/Vol] 0.4 mg/dL Normal 0.2-1.3 [facility] Comment on above: Performed By: #### L IPID, CMP #### [facility] [address] [place] [address] Dr. Katrin Ceja Calcium [Mass/Vol] 9.3 mg/dL Normal 8.4-10.2 [facility] Comment on above: Performed By: #### L IPID, CMP #### [facility] [address] [place] [address] Dr. Katrin Ceja Chloride [Moles/Vol] 99 mmol/L Normal 98-107 [facility] Comment on above: Performed By: #### L IPID, CMP #### [facility] [address] [place] [address] Dr. Katrin Ceja CO2 [Moles/Vol] 24.1 mmol/L Normal 22.0-30.0 [facility] Comment on above: Performed By: #### L IPID, CMP #### [facility] [address] [place] [address] Dr. Katrin Ceja Creatinine [Mass/Vol] 0.65 mg/dL Normal 0.52-1.04 [facility] Comment on above: Performed By: #### L IPID, CMP #### [facility] [address] [place] [address] Dr. Katrin Ceja EGFR-AF CHILEAN >60 Normal >=60 [facility] Comment on above: Performed By: #### L IPID, CMP #### [facility] [address] [place] [address] Dr. Katrin Ceja EGFR-NON AF CHILEAN >60 Normal >=60 [facility] Comment on above: Performed By: #### L IPID, CMP #### [facility] [address] [place] [address] Dr. Katrin Ceja Globulin (S) [Mass/Vol] 5.0 g/dL Normal [facility] Comment on above: Performed By: #### L IPID, CMP #### [facility] [address] [place] [address] Dr. Katrin Ceja Glucose [Mass/Vol] 86 mg/dL Normal 74-106 [facility] Comment on above: Performed By: #### L IPID, CMP #### [facility] [address] [place] [address] Dr. Katrin Ceja Potassium [Moles/Vol] 4.4 mmol/L Normal 3.4-5.0 [facility] Comment on above: Performed By: #### L IPID, CMP #### [facility] [address] [place] [address] Dr. Katrin Ceja Protein [Mass/Vol] 8.5 g/dL Critically high 6.1-8.2 [facility] Comment on above: Performed By: #### L IPID, CMP #### [facility] [address] [place] [address] Dr. Katrin Ceja Sodium [Moles/Vol] 134 mmol/L Critically low 137-145 [facility] Comment on above: Performed By: #### L IPID, CMP #### [facility] [address] [place] [address] Dr. Katrin Ceja Urea nitrogen [Mass/Vol] 8.0 mg/dL Normal 7.0-17.0 [facility] Comment on above: Performed By: #### L IPID, CMP #### [facility] [address] [place] [address] Dr. Katrin Ceja Urea nitrogen/Creatinine [Mass ratio] 12.3 mg/mg Normal [facility] Comment on above: Performed By: #### L IPID, CMP #### [facility] [address] [place] [address] Dr. Katrin Ceja AMYLASEon 05-01-2021 AMYL <30 Critically low 31-110 [facility] Comment on above: Performed By: #### P REG #### [facility] [address] [place] [address] Dr. Katrni Ceja CBC AUTO DIFFon 05-01-2021 BASO # 0.0 103/ul Normal 0.0-0.1 [facility] Comment on above: Performed By: #### L IPID, CMP #### [facility] [address] [place] [address] Dr. Katrin Ceja Basophils/100 WBC (Bld) 0.3 % Normal 0.2-2.0 [facility] Comment on above: Performed By: #### L IPID, CMP #### [facility] [address] [place] [address] Dr. Katrin Ceja EO # 0.1 103/ul Normal 0.0-0.7 [facility] Comment on above: Performed By: #### L IPID, CMP #### [facility] [address] [address] [address] Katrin Ceja Eosinophils/100 WBC (Bld) 0.4 % Critically low 0.9-7.0 [facility] Comment on above: Performed By: #### L IPID, CMP #### [facility] [address] [place] [address] Dr. Katrin Ceja Erythrocyte distribution width (RBC) [Ratio] 13.0 % Normal 11.0-15.0 [facility] Comment on above: Performed By: #### L IPID, CMP #### [facility] [address] [place] [address] Dr. Katrin Ceja Hematocrit (Bld) [Volume fraction] 37.7 % Normal 36.0-48.0 [facility] Comment on above: Performed By: #### L IPID, CMP #### [facility] [address] [place] [address] Dr. Katrin Ceja Hemoglobin (Bld) [Mass/Vol] 12.5 g/dL Normal 12.0-16.0 [facility] Comment on above: Performed By: #### L IPID, CMP #### [facility] [address] [place] [address] Dr. Katrin Ceja IG # 0.09 10e3/ul Critically high 0.00-0.03 [facility] Comment on above: Performed By: #### L IPID, CMP #### [facility] [address] [place] [address] Dr. Katrin Ceja IG % 0.6 % Critically high 0.0-0.[address] [facility] Comment on above: Performed By: #### L IPID, CMP #### [facility] [address] [place] [address] Dr. Katrin Ceja LYMPH # 1.9 103/ul Normal 1.2-3.[address] [facility] Comment on above: Performed By: #### L IPID, CMP #### [facility] [address] [place] [address] Dr. Katrin Ceja Lymphocytes/100 WBC (Bld) 12.1 % Critically low 20.5-60.0 [facility] Comment on above: Performed By: #### L IPID, CMP #### [facility] [address] [place] [address] Dr. Katrin Ceja MANUAL DIFF REQ NO Normal [facility] Comment on above: Performed By: #### L IPID, CMP #### [facility] [address] [place] [address] Dr. Katrin Ceja MCH (RBC) [Entitic mass] 28.8 pg Normal 26.7-34.0 [facility] Comment on above: Performed By: #### L IPID, CMP #### [facility] [address] [place] [address] Dr. Katrin Ceja MCHC (RBC) [Mass/Vol] 33.2 g/dL Normal 29.9-35.2 [facility] Comment on above: Performed By: #### L IPID, CMP #### [facility] [address] [place] [address] Dr. Katrin Ceja MCV (RBC) [Entitic vol] 86.9 fL Normal 81.0-99.0 [facility] Comment on above: Performed By: #### L IPID, CMP #### [facility] [address] [place] [address] Dr. Katrin Ceja MONO # 1.1 103/ul Critically high 0.3-0.8 [facility] Comment on above: Performed By: #### L IPID, CMP #### [facility] [address] [place] [address] Dr. Katrin Ceja Monocytes/100 WBC (Bld) 7.1 % Normal 1.7-12.[address] [facility] Comment on above: Performed By: #### L IPID, CMP #### [facility] [address] [place] [address] Dr. Katrin Ceja NEUT # 12.3 103/ul Critically high 1.4-6.5 [facility] Comment on above: Performed By: #### L IPID, CMP #### [facility] [address] [place] [address] Dr. Katrin Ceja Neutrophils/100 WBC (Bld) 79.5 % Critically high 43.0-75.0 [facility] Comment on above: Performed By: #### L IPID, CMP #### [facility] [address] [address] [address] Katrin Ceja Platelet mean volume (Bld) [Entitic vol] 8.7 fL Critically low 9.5-13.5 [facility] Comment on above: Performed By: #### L IPID, CMP #### [facility] [address] [address] [address] Katrin Ceja PLT 329 103/ul Normal 150-[address] [facility] Comment on above: Performed By: #### L IPID, CMP #### [facility] [address] [address] [address] Katrin Ceja RBC 4.34 106/ul Normal 4.20-5.40 [facility] Comment on above: Performed By: #### L IPID, CMP #### [facility] [address] [address] [address] Katrin Ceja WBC 15.5 103/ul Critically high 4.0-11.0 [facility] Comment on above: Performed By: #### L IPID, CMP #### [facility] [address] [place] [address] ABD/PELV W CONon [...] by: HILDA RAHMAN Date: 2021-05-01 20:30 Normal [facility] LIPASEon 05-01-2021 Lipase [Catalytic activity/Vol] 64.0 U/L Normal 23.0-300.0 [facility] Comment on above: Performed By: #### P REG #### [facility] [address] [place] [address] Dr. Katrin Ceja LIVER PROFILEon 05-01-2021 Albumin [Mass/Vol] 3.3 g/dL Critically low 3.5-5.[address] [facility] Comment on above: Performed By: #### L IPID, CMP #### [facility] [address] [place] [address] Dr. Katrin Ceja Albumin/Globulin [Mass ratio] 0.6 {ratio} Normal [facility] Comment on above: Performed By: #### L IPID, CMP #### [facility] [address] [place] [address] Dr. Katrin Ceja ALP [Catalytic activity/Vol] 412 U/L Critically high 38-126 [facility] Comment on above: Performed By: #### L IPID, CMP #### [facility] [address] [address] [address] Katrin Ceja ALT [Catalytic activity/Vol] 124 U/L Critically high 9-52 [facility] Comment on above: Performed By: #### L IPID, CMP #### [facility] [address] [address] [address] Katrin Ceja AST [Catalytic activity/Vol] 61 U/L Critically high 14-36 [facility] Comment on above: Performed By: #### L IPID, CMP #### [facility] [address] [place] [address] Dr. Katrin Ceja BILI, CONJUGATED 0.2 mg/dL Normal 0.0-0.3 [facility] Comment on above: Performed By: #### L IPID, CMP #### [facility] [address] [place] [address] Dr. Katrin Ceja Bilirubin [Mass/Vol] 0.4 mg/dL Normal 0.2-1.3 [facility] Comment on above: Performed By: #### L IPID, CMP #### [facility] [address] [place] [address] Dr. Katrin Ceja Globulin (S) [Mass/Vol] 5.1 g/dL Normal [facility] Comment on above: Performed By: #### L IPID, CMP #### [facility] [address] [place] [address] Dr. Katrin Ceja Protein [Mass/Vol] 8.4 g/dL Critically high 6.1-8.2 [facility] Comment on above: Performed By: #### L IPID, CMP #### [facility] [address] [place] [address] Dr. Katrin Ceja PREG HCG QUALon 05-01-2021 , QUAL Negative Normal NEGATIVE [facility] Comment on above: Performed By: #### P REG #### [facility] [address] [place] [address] Dr. Katrin Ceja PROF CHEM 8 (BAS METB)on Anion gap [Moles/Vol] 17.1 mmol/L Normal Th [facility] Comment on above: Performed By: #### P REG #### [facility] [address] [address] [address] Katrin Ceja Calcium [Mass/Vol] 8.9 mg/dL Normal 8.4-10.2 [facility] Comment on above: Performed By: #### P REG #### [facility] [address] [address] [address] Katrin Ceja Chloride [Moles/Vol] 100 mmol/L Normal 98-107 [facility] Comment on above: Performed By: #### P REG #### [facility] [address] [place] [address] Dr. Katrin Ceja CO2 [Moles/Vol] 21.1 mmol/L Critically low 22.0-30.0 [facility] Comment on above: Performed By: #### P REG #### [facility] [address] [place] [address] Dr. Katrin Ceja Creatinine [Mass/Vol] 0.78 mg/dL Normal 0.52-1.04 [facility] Comment on above: Performed By: #### P REG #### [facility] [address] [place] [address] Dr. Katrin Ceja EGFR-AF CHILEAN >60 Normal >=60 [facility] Comment on above: Performed By: #### P REG #### [facility] [address] [place] [address] Dr. Katrin Ceja EGFR-NON AF CHILEAN >60 Normal >=60 [facility] Comment on above: Performed By: #### P REG #### [facility] [address] [address] [address] Katrin Ceja Glucose [Mass/Vol] 97 mg/dL Normal 74-106 [facility] Comment on above: Performed By: #### P REG #### [facility] [address] [place] [address] Dr. Katrin Ceja Potassium [Moles/Vol] 4.2 mmol/L Normal 3.4-5.0 [facility] Comment on above: Performed By: #### P REG #### [facility] [address] [place] [address] Dr. Katrin Ceja Sodium [Moles/Vol] 134 mmol/L Critically low 137-145 [facility] Comment on above: Performed By: #### P REG #### [facility] [address] [place] [address] Dr. Katrni Ceja Urea nitrogen [Mass/Vol] 6.0 mg/dL Critically low 7.0-17.0 [facility] Comment on above: Performed By: #### P REG #### [facility] [address] [place] [address] Dr. Katrin Ceja Urea nitrogen/Creatinine [Mass ratio] 7.7 mg/mg Normal [facility] Comment on above: Performed By: #### P REG #### [facility] [address] [place] [address] Dr. Katrin Ceja CBC AUTO DIFFon 04-29-2021 BASO # 0.1 103/ul Normal 0.0-0.1 [facility] Comment on above: Performed By: #### L IPID, CMP #### [facility] [address] [place] [address] Dr. Katrin Ceja Basophils/100 WBC (Bld) 0.4 % Normal 0.2-2.0 [facility] Comment on above: Performed By: #### L IPID, CMP #### [facility] [address] [place] [address] Dr. Katrin Ceja EO # 0.2 103/ul Normal 0.0-0.7 [facility] Comment on above: Performed By: #### L IPID, CMP #### [facility] [address] [place] [address] Dr. Katrin Ceja Eosinophils/100 WBC (Bld) 1.7 % Normal 0.9-7.0 [facility] Comment on above: Performed By: #### L IPID, CMP #### [facility] [address] [place] [address] Dr. Katrin Ceja Erythrocyte distribution width (RBC) [Ratio] 12.9 % Normal 11.0-15.0 [facility] Comment on above: Performed By: #### L IPID, CMP #### [facility] [address] [place] [address] Dr. aKtrin Ceja Hematocrit (Bld) [Volume fraction] 39.0 % Normal 36.0-48.0 [facility] Comment on above: Performed By: #### L IPID, CMP #### [facility] [address] [place] [address] Dr. Katrin Ceja Hemoglobin (Bld) [Mass/Vol] 12.9 g/dL Normal 12.0-16.0 [facility] Comment on above: Performed By: #### L IPID, CMP #### [facility] [address] [place] [address] Dr. Katrin Ceja IG # 0.08 10e3/ul Critically high 0.00-0.03 [facility] Comment on above: Performed By: #### L IPID, CMP #### [facility] [address] [place] [address] Dr. Katrin Ceja IG % 0.6 % Critically high 0.0-0.5 [facility] Comment on above: Performed By: #### L IPID, CMP #### [facility] [address] [place] [address] Dr. Katrin Ceja LYMPH # 3.2 103/ul Normal 1.2-3.8 [facility] Comment on above: Performed By: #### L IPID, CMP #### [facility] [address] [place] [address] Dr. Katrin Ceja Lymphocytes/100 WBC (Bld) 24.4 % Normal 20.5-60.0 [facility] Comment on above: Performed By: #### L IPID, CMP #### [facility] [address] [place] [address] Dr. Katrin Ceja MANUAL DIFF REQ NO Normal [facility] Comment on above: Performed By: #### L IPID, CMP #### [facility] [address] [address] [address] Katrin Ceja MCH (RBC) [Entitic mass] 29.1 pg Normal 26.7-34.[address] [facility] Comment on above: Performed By: #### L IPID, CMP #### [facility] [address] [address] [address] Katrin Ceja MCHC (RBC) [Mass/Vol] 33.1 g/dL Normal 29.9-35.[address] [facility] Comment on above: Performed By: #### L IPID, CMP #### [facility] [address] [address] [address] Katrin Ceja MCV (RBC) [Entitic vol] 88.0 fL Normal 81.0-99.0 [facility] Comment on above: Performed By: #### L IPID, CMP #### [facility] [address] [place] [address] Dr. Katrin Ceja MONO # 1.2 103/ul Critically high 0.3-0.[address] [facility] Comment on above: Performed By: #### L IPID, CMP #### [facility] [address] [address] [address] Katrin Ceja Monocytes/100 WBC (Bld) 9.2 % Normal 1.7-12.0 [facility] Comment on above: Performed By: #### L IPID, CMP #### [facility] [address] [address] [address] Katrin Ceja NEUT # 8.3 103/ul Critically high 1.4-6.[address] [facility] Comment on above: Performed By: #### L IPID, CMP #### [facility] [address] [address] [address] Katrin Ceja Neutrophils/100 WBC (Bld) 63.7 % Normal 43.0-75.[address] [facility] Comment on above: Performed By: #### L IPID, CMP #### [facility] [address] [address] [address] Katrin Ceja Platelet mean volume (Bld) [Entitic vol] 9.2 fL Critically low 9.5-13.5 [facility] Comment on above: Performed By: #### L IPID, CMP #### [facility] [address] [address] [address] Katrin Ceja PLT 384 103/ul Normal 150-450 [facility] Comment on above: Performed By: #### L IPID, CMP #### [facility] [address] [address] [address] Katrin Ceja RBC 4.43 106/ul Normal 4.20-5.40 [facility] Comment on above: Performed By: #### L IPID, CMP #### [facility] [address] [address] [address] Katrin Ceja WBC 13.1 103/ul Critically high 4.0-11.0 [facility] Comment on above: Performed By: #### L IPID, CMP #### [facility] [address] [place] [address] ABD/PELV W CONon [...] by: Lorenzo LAN Date: 2021-04-29 02:49 Normal [facility] LACTATE/LACTIC ACIDon 2020 Lactate [Moles/Vol] 1.2 mmol/L Normal 0.7-2.0 [facility] Comment on above: Performed By: #### C BC #### [facility] [address] [place] [address] Dr. Katrin Ceja PROF 14(COMP METB)on 021 Albumin [Mass/Vol] 3.4 g/dL Critically low 3.5-5.0 [facility] Comment on above: Performed By: #### C BC #### [facility] [address] [place] [address] Dr. Katrin Ceja Albumin/Globulin [Mass ratio] 0.7 {ratio} Normal [facility] Comment on above: Performed By: #### C BC #### [facility] [address] [address] [address] Katrin Ceja ALP [Catalytic activity/Vol] 359 U/L Critically high 38-126 [facility] Comment on above: Performed By: #### C BC #### [facility] [address] [address] [address] Katrin Ceja ALT [Catalytic activity/Vol] 193 U/L Critically high 9-52 [facility] Comment on above: Performed By: #### C BC #### [facility] [address] [address] [address] Katrin Ceja Anion gap [Moles/Vol] 13.3 mmol/L Normal Th [facility] Comment on above: Performed By: #### C BC #### [facility] [address] [address] [address] Katrin Ceja AST [Catalytic activity/Vol] 115 U/L Critically high 14-36 [facility] Comment on above: Performed By: #### C BC #### [facility] [address] [address] [address] Katrin Ceja Bilirubin [Mass/Vol] 0.5 mg/dL Normal 0.2-1.3 [facility] Comment on above: Performed By: #### C BC #### [facility] [address] [address] [address] Katrin Ceja Calcium [Mass/Vol] 9.5 mg/dL Normal 8.4-10.2 [facility] Comment on above: Performed By: #### C BC #### [facility] [address] [address] [address] Katrin Ceja Chloride [Moles/Vol] 101 mmol/L Normal 98-107 [facility] Comment on above: Performed By: #### C BC #### [facility] [address] [address] [address] Katrin Ceja CO2 [Moles/Vol] 23.7 mmol/L Normal 22.0-30.0 [facility] Comment on above: Performed By: #### C BC #### [facility] [address] [address] [address] Katrin Ceja Creatinine [Mass/Vol] 0.83 mg/dL Normal 0.52-1.04 [facility] Comment on above: Performed By: #### C BC #### [facility] [address] [address] [address] Katrin Ceja EGFR-AF CHILEAN >60 Normal >=60 [facility] Comment on above: Performed By: #### C BC #### [facility] [address] [address] [address] Katrin Ceja EGFR-NON AF CHILEAN >60 Normal >=60 [facility] Comment on above: Performed By: #### C BC #### [facility] [address] [address] [address] Katrin Ceja Globulin (S) [Mass/Vol] 5.1 g/dL Normal [facility] Comment on above: Performed By: #### C BC #### [facility] [address] [address] [address] Katrin Ceja Glucose [Mass/Vol] 102 mg/dL Normal 74-106 [facility] Comment on above: Performed By: #### C BC #### [facility] [address] [address] [address] Katrin Ceja Potassium [Moles/Vol] 4.0 mmol/L Normal 3.4-5.0 [facility] Comment on above: Performed By: #### C BC #### [facility] [address] [place] [address] Dr. Katrin Ceja Protein [Mass/Vol] 8.5 g/dL Critically high 6.1-8.2 [facility] Comment on above: Performed By: #### C BC #### [facility] [address] [place] [address] Dr. Katrin Ceja Sodium [Moles/Vol] 134 mmol/L Critically low 137-145 [facility] Comment on above: Performed By: #### C BC #### [facility] [facility] [address] [place] [address] Dr. Katrin Ceja Urea nitrogen [Mass/Vol] 6.0 mg/dL Critically low 7.0-17.0 [facility] Comment on above: Performed By: #### C BC #### [facility] [address] [place] [address] Dr. Katrin Ceja Urea nitrogen/Creatinine [Mass ratio] 7.2 mg/mg Normal [facility] Comment on above: Performed By: #### C BC #### [facility] [address] [place] [address] Dr. Katrin Ceja XR CHEST 1 Von [...] by: HILDA GU Date: 2021-04-28 23:45 Normal [facility] Acetaminophen (Tylenol) Leve kit 03-22-2019 Acetaminophen [Mass/Vol] <10 Normal 10.0-30.0 [facility] Comment on above: Performed By: #### 1 4581-3, 41716-2, 65532-3, 20318-8u2, 13240-8, 66610-2 #### [facility] [address], [place] Alcohol (Ethanol) Levelon Ethanol [Mass/Vol] mg/dL Normal 0.00-0.00 [facility] Comment on above: Performed By: #### 1 4581-3, 29778-3, 81352-5, 00719-1r3, 77979-6, 17704-0 #### [facility] [address], [place] CBC with Differentialon Basophils (Bld) [#/Vol] 0.10 thou/mcL Normal 0.00-0.20 [facility] Comment on above: Performed By: #### 5 7021-8 #### [facility] [address], [place] Basophils/100 WBC (Bld) 0.7 % Normal 0.0-2.0 [facility] Comment on above: Performed By: #### 5 7021-8 #### [facility] [address], [place] Eosinophils (Bld) [#/Vol] 0.40 thou/mcL Normal 0.00-0.70 [facility] Comment on above: Performed By: #### 5 7021-8 #### [facility] [address], [place] Eosinophils/100 WBC (Bld) 3.7 % Normal 0.0-7.0 [facility] Comment on above: Performed By: #### 5 7021-8 #### [facility] [address], [place] Erythrocyte distribution width (RBC) [Entitic vol] 12.6 % Normal 11.0-14.8 [facility] Comment on above: Performed By: #### 5 7021-8 #### [facility] [address], [place] Hematocrit (Bld) [Volume fraction] 38.5 % Normal 35.0-45.0 [facility] Comment on above: Performed By: #### 5 7021-8 #### [address] Hemoglobin (Bld) [Mass/Vol] 13.3 g/dL Normal 12.0-16.0 [facility] Comment on above: Performed By: #### 5 7021-8 #### [facility] [address] [place] [address] Lymphocytes (Bld) [#/Vol] 3.10 thou/mcL Normal 1.00-4.80 [facility] Comment on above: Performed By: #### 5 7021-8 #### [facility] [address], [place] Lymphocytes/100 WBC (Bld) 30.1 % Normal 22.0-44.0 [facility] Comment on above: Performed By: #### 5 7021-8 #### [facility] [address], [place] MCH (RBC) [Entitic mass] 30.8 Picograms Normal 27.0-34.0 [facility] Comment on above: Performed By: #### 5 7021-8 #### [facility] [address], [place] MCHC (RBC) [Mass/Vol] 34.7 g/dL Normal 32.0-36.0 [facility] Comment on above: Performed By: #### 5 7021-8 #### [facility] [address], [place] MCV (RBC) [Entitic vol] 88.8 fL Normal 80.0-97.0 [facility] Comment on above: Performed By: #### 5 7021-8 #### [facility] [address], [place] Monocytes (Bld) [#/Vol] 1.10 thou/mcL High 0.00-0.90 [facility] Comment on above: Performed By: #### 7021-8 #### [place] [id number] [place], [place] Monocytes/100 WBC (Bld) 10.4 % Normal 0.0-12.0 [facility] Comment on above: Performed By: #### 7021-8 #### [address] Neutrophils (Bld) [#/Vol] 5.60 thou/mcL Normal 1.80-7.70 [facility] Comment on above: Performed By: #### 7021-8 #### [facility] Neutrophils/100 WBC (Bld) 55.1 % Normal 40.0-70.0 [facility] Comment on above: Performed By: #### 5 7021-8 #### [facility] [address] [place] [address] Platelet mean volume (Bld) [Entitic vol] 7.5 fL Normal 6.2-12.1 [facility] Comment on above: Performed By: #### 5 7021-8 #### [facility] [address], [place] Platelets (Bld) [#/Vol] 280 thou/mcL Normal 142-424 [facility] Comment on above: Performed By: #### 5 7021-8 #### [facility] [address] [place] [address] RBC (Bld) [#/Vol] 4.33 million/mcL Normal 3.80-5.10 [facility] Comment on above: Performed By: #### 5 7021-8 #### [facility] [address], [place] WBC (Bld) [#/Vol] 10.2 thou/mcL Normal 4.6-10.2 [facility] Comment on above: Performed By: #### 5 7021-8 #### [facility] [address], [place] Comprehensive Metabolic Pane kit 03-22-2019 Albumin [Mass/Vol] 4.2 g/dL Normal 3.5-4.8 [facility] Comment on above: Performed By: #### 1 4581-3, 47486-1, 61042-1, 56411-4d8, 45142-5, 66015-9 #### [facility] [address], [place] ALP [Catalytic activity/Vol] 96 Units/L High 32-91 [facility] Comment on above: Performed By: #### 1 4581-3, 95839-5, 87238-3, 36995-2c7, 01409-6, 19950-2 #### [facility] [address], [place] ALT [Catalytic activity/Vol] 25 Units/L Normal 14-63 [facility] Comment on above: Performed By: #### 1 4581-3, 88013-0, 20482-9, 72566-3d5, 23304-4, 75391-1 #### [facility] [address], [place] Anion gap [Moles/Vol] 9.0 mmol/L Normal 6.0-18.0 [facility] Comment on above: Performed By: #### 1 4581-3, 58923-4, 66520-2, 90627-4m7, 13386-6, 11799-8 #### [facility] [address], [place] AST [Catalytic activity/Vol] 24 Units/L Normal 15-41 [facility] Comment on above: Performed By: #### 1 4581-3, 34781-4, 62409-3, 05684-2l7, 24624-6, 61267-3 #### [facility] [address], [place] Bilirubin [Mass/Vol] 0.5 mg/dL Normal 0.3-1.2 [facility] Comment on above: Performed By: #### 1 4581-3, 57688-5, 66274-3, 66328-6r5, 57319-5, 50420-3 #### [facility] [address], [place] Calcium [Mass/Vol] 8.9 mg/dL Normal 8.9-10.3 [facility] Comment on above: Performed By: #### 1 4581-3, 31242-5, 56042-2, 93018-8s0, 09243-5, 74341-3 #### [facility] [address], [place] Chloride [Moles/Vol] 107 mmol/L Normal 98-107 [facility] Comment on above: Performed By: #### 1 4581-3, 22362-7, 98676-0, 61158-7v9, 53202-6, 28997-1 #### [facility] [address], [place] CO2 [Moles/Vol] 23 mmol/L Normal 22-32 [facility] Comment on above: Performed By: #### 1 4581-3, 02566-3, 09587-5, 11146-7q5, 15659-6, 50094-0 #### [facility] [address], [place] Creatinine [Mass/Vol] 0.68 mg/dL Normal 0.60-1.30 [facility] Comment on above: Performed By: #### 1 4581-3, 47225-4, 72865-7, 67504-7f6, 85644-4, 40527-1 #### [facility] [address], [place] Glucose [Mass/Vol] 90 mg/dL Normal 70-99 [facility] Comment on above: Result Comment: U pdated ADA Reference Range A normal fasting glucose concentration is less than 100 mg/dL. An impaired fasting glucose concentration is 100-125 mg/dL. A provisional diagnosis of diabetes mellitus can be made when a fasting glucose concentration is greater than 125 mg/dL. Performed By: #### 1 4581-3, 41341-9, 89150-8, 57971-4m9, 67509-1, 16106-9 #### [facility] [address], [place] Potassium [Moles/Vol] 3.4 mmol/L Low 3.6-5.1 [facility] Comment on above: Performed By: #### 1 4581-3, 94598-5, 02117-5, 67485-3g8, 97883-6, 80375-4 #### [facility] [address], [place] Protein [Mass/Vol] 7.4 g/dL Normal 6.1-7.9 [facility] Comment on above: Performed By: #### 1 4581-3, 09417-7, 11000-7, 12126-0r6, 83871-5, 24018-8 #### [facility] [address], [place] Sodium [Moles/Vol] 139 mmol/L Normal 136-145 [facility] Comment on above: Performed By: #### 1 4581-3, 74735-6, 85298-5, 68093-8t7, 86902-7, 00868-3 #### [facility] [address], [place] Urea nitrogen (BldV) [Mass/Vol] 17 mg/dL Normal 8-20 [facility] Comment on above: Performed By: #### 1 4581-3, 26416-3, 16884-7, 68714-4g8, 87368-1, 18371-8 #### [facility] [address], [place] Drug Abuse Screen 8 Urineon 03-22-2019 Barbiturates Screen Ql (U) Negative Normal [facility] Comment on above: Performed By: #### 1 2286-1 #### [facility] [address], [place] Amphetamines Ql (U) Positive Abnormal [facility] Comment on above: Result Comment: Conf irmatory testing available upon request. Performed By: #### 1 2286-1 #### [facility] [address], [place] Benzodiazepines cutoff Screen (U) [Mass/Vol] Negative Normal [facility] Comment on above: Performed By: #### 1 2286-1 #### [facility] [address], [place] Cocaine Ql (U) Positive Abnormal [facility] Comment on above: Result Comment: Conf irmatory testing available upon request. Performed By: #### 1 2286-1 #### [facility] [address] [place], [place] Interpretation and review of laboratory results Negative Normal [facility] Comment on above: Performed By: #### 1 2286-1 #### [facility] [address], [place] Methadone Screen Ql (U) Negative Normal NEGATIVE-N EGATIVE [facility] Comment on above: Performed By: #### 1 2286-1 #### [facility] [address], [place] Opiates Screen Ql (U) Negative Normal [facility] Comment on above: Result Comment: INTE [...] ONLY. Performed By: #### 1 2286-1 #### [address] Tetrahydrocannabinol Screen Ql (U) Positive Abnormal [facility] Comment on above: Result Comment: Conf irmatory testing available upon request. Performed By: #### 1 2286-1 #### [address] ED Pat Eduon 03-22-2019 ED Pat Edu [address] [address] Emergency Department Discharge Instructions JENNIFER AGUILLON , [...] [facility] Name JENNIFER AGUILLON MRN (COL)-[id number] PLEASE READ THE FOLLOWING REGARDING YOUR MEDICATIONS [...] doses are changed, or new medications (including tjon-lwj-ahbcsnt products) are added. If you have any [...] UNTIL YOU TALK TO YOUR DOCTOR None [place] [address] Emergency Department Discharge Instructions Name: JENNIFER AGUILLON Current Date: 03/22/2019 19:32:22 : 1995 Primary Physician: Physician, No PCP We would like to thank you for choosing [facility] for your emergency medical needs. We [...] health of those around you. [facility] offers many resources to help with smoking cessation. Call the [place] Tobacco Quit Line at 4-847-WANQ-NOW ( ). High blood pressure: Your screening [...] deadly infections. Discuss this with your child's web design instructor, or Public Health Department. Your family practice doctor can determine if you need pneumonia or flu vaccine. The [facility] Department can be reached at . Substance Abuse Program: Concerns with addiction to alcohol, benzodiazepines (Ativan or Xanax) and Opiates (Heroin, Percocet, OxyContin, Methadone or Fentanyl)? [facility] offers an inpatient Substance Abuse Program to help treat the symptoms associated with medical detoxification of addictive substances. The new program offers care for non- adults (18 and older) looking to break the chain to addictive chemicals. The Substance Abuse Program is a voluntary inpatient admission and it starts with a pre-screening phone call to a social media strategist. During the call, goals and objectives for recovery and how the patient will transition to outpatient care will be established. Please call [phone] to get help today. Domestic Violence: If you are a victim of domestic violence (physical, verbal, or emotional), you are not alone. Discuss this with your physician or a friend and call the [place] Domestic Violence Hotline or [place] Domestic Violence Hotline for assistance and support. [...] physician, call the Physician Referral Line at [phone]-XZAB ([phone]). Suicide Hotline: Your mental and emotional well-being is important. If you are in a mental health crisis or are having thoughts of suicide, please call the nationwide suicide hotline, anytime day or night, at 7-229-198-ZWTB (0664). Community Stem Crusher: You may be contacted by your local fire department for a follow up visit from a community construction recruiter. The community construction recruiter can help with a home safety check; follow up care, and general home care management. Pharmacy Information: Below is a list of 24 hour pharmacies that we are aware of. We suggest that you call the specific pharmacy for their hours before traveling to a location. Hours may vary on holidays. [facility] [address], [place] [phone] [place] [phone] [place] [address] [phone] [place] [address] [phone] [place], [place] [phone] [address] [place] [address] [phone] [place] [id number] [phone] Take all medications as directed. If you need prescription assistance, contact the following agencies: ?? [facility] for Prescription Assistance at or www.Omirox.org ?? [place] at or www.Soloingles.com Internacionalstrx.org ?? www.Digital Chocolate.[facility] is a site with many valuable coupons [...] Date Time Provider Signature Normal [facility] GFRaaon 03-22-2019 GFR/1.73 sq M predicted among blacks MDRD (S/P/Bld) [Vol rate/Area] mL/min/{1.73_m2} Normal [facility] Comment on above: Result Comment: The MDRD equation has not been validated for those over 70 years, women, patients with serious co-morbid conditions, or with extremes of body size, muscle mass of nutritional status. Performed By: #### 1 4581-3, 37841-2, 05660-4, 79414-1z6, 82132-5, 83904-9 #### [facility] [address], [place] GFRbbon 03-22-2019 GFR/1.73 sq M predicted among non-blacks MDRD (S/P/Bld) [Vol rate/Area] mL/min/{1.73_m2} Normal [facility] Comment on above: Performed By: #### 1 4581-3, 71793-1, 47965-8, 70774-0q3, 57483-6, 69092-8 #### [address] Test Urineon 03-22 HCG ( test) Ql (U) Negative Normal [facility] Comment on above: Performed By: #### 2 106-3 #### [facility], [address] [place] [address] Salicylate Levelon 9 Salicylates [Mass/Vol] mg/dL Normal 2.8-30.0 [facility] Comment on above: Performed By: #### 1 4581-3, 59850-2, 82102-5, 15225-4x6, 44437-8, 04056-5 #### [facility] [address] [place] [address] Medication Managementon 10-0 Medication Management [id number] F [facility] ED Clinical Summaryon 2017 ED Clinical Summary [facility] [address] [place] [address] ed Clinical SummaryPERSON INFORMATIONName: JENNIFER AGUILLON Age: 22 Years Sex: FEMALEDOB: [birth year] MRN: Acct#:Visit Reason: Dental pain; Dental pain; DENTAL PAIN Arrival: 04/11/18 20:21:00 Discharge: 04/11/18 20:55:00LOS: 000 00:34 Check In: 04/11/18 20:21:00 Checkout:04/11/18 20:55:00Address:[address] [facility] [address]RHN: SOLOMON WATTSPROVIDER INFORMATIONProvider Role Assigned UnassignedAlistair Max [...] 04/11/18 20:29:00.Dental caries, dental painHistory of Present Jhwkvjy70-lopo-mal white female presents to the emergency room [...] her poor dental state..Impression and PlanDiagnosisDental caries (VAC20-CQ K02.9, Discharge, Medical)Pain, dental (SBB39-MX K08.89, Discharge, Medical)PlanCondition: Improved, Stable.Disposition: Discharged: to home.Prescriptions: Launch prescriptionsPharmacy:tra MADol 50 mg oral tablet (Prescribe): 50 mg = 1 tab(s), PO, q4hr, PRN: as needed for pain, 12 tab(s), 0 Refill(s)amoxicillin 500 mg oral capsule (Prescribe): 1,000 mg = 2 cap(s), PO, BID, 40 cap(s), 0 Refill(s).Patient was given the following educational materials: Dental Pain, Phqm-yx-Bgsq, Dental Caries, Adult, Kadt-go-Djgi, Dental Caries, Adult, Oyqa-yl-Pexl, Dental Pain, Ecrr-gt-Teyh.Follow up with: SOLOMON WATTS Within 3 to 5 days.Counseled: Patient, Regarding diagnosis, Regarding treatment plan, Regarding prescription, Patient indicated understanding of instructions.DISCHARGE INFORMATION:Discharge Disposition: HomeDischarge Location: HomePATIENT EDUCATION INFORMATIONInstructions: Dental Caries, Adult, Drff-dp-Gdkw; Dental Pain, Qozm-uh-OfwfKgfxjs-Up:Chelsey h: Address: When:SOLOMON WATTS [address] [place] [address] [facility] (1) Within 3 to 5 daysDIAGNOSIS:Dental caries; Dental pain; Pain, dentalPatient Understands: Yes - Patient/family/caregiver verbalizes understanding of instructions givenComment: [facility] ED Note - Physicianon 2017 ED Note - Physician Patient: DOMINIC AGUILLON : 22 years Sex: FEMALE : [birth year]Associated Diagnoses: Dental caries; Pain, dentalAuthor: Alistair Maxsikeyla InformationTime seen: Date & time 04/11/18 20:29:00.Dental caries, dental painHistory of Present Nzajcft47-oqwh-ynv white female presents to the emergency room [...] her poor dental state..Impression and PlanDiagnosisDental caries (DBA46-CA K02.9, Discharge, Medical)Pain, dental (CLR65-BK K08.89, Discharge, Medical)PlanCondition: Improved, Stable.Disposition: Discharged: to home.Prescriptions: Launch prescriptionsPharmacy:tra MADol 50 mg oral tablet (Prescribe): 50 mg = 1 tab(s), PO, q4hr, PRN: as needed for pain, 12 tab(s), 0 Refill(s)amoxicillin 500 mg oral capsule (Prescribe): 1,000 mg = 2 cap(s), PO, BID, 40 cap(s), 0 Refill(s).Patient was given the following educational materials: Dental Pain, Qhby-ql-Ewll, Dental Caries, Adult, Pbtf-fr-Zcjv, Dental Caries, Adult, Eqvl-ll-Xxca, Dental Pain, Zplv-mh-Kpoe.Follow up with: SOLOMON WATTS Within 3 to 5 days.Counseled: Patient, Regarding diagnosis, Regarding treatment plan, Regarding prescription, Patient indicated understanding of instructions.[Matt ortiz Signed on: 04/11/2018 20:42 EDT] Alistair Salomon MD[Verified on: 04/11/2018 20:42 EDT] Alistair Salomon MD [facility] ED Patient Education Noteon 04-11-2018 ED [...] mouth and teeth. This keeps them healthy.? [place] your teeth 2 times a day. Use toothpaste with fluoride in it.? Floss your teeth once a day.? If your dentist prescribed an antibiotic medicine to treat an infection, take it as told. Do not stop taking the antibiotic even if your condition gets better.? Keep all follow-up visits as told by your dentist. This is important. This includes all cleanings.Preventing dental caries? [place] your teeth every morning and night. Use [...] Reviewed: 03/17/2017[employer] Patient Education ? 2017 [employer].Dental PainDental pain may be caused by many [...] Reviewed: 06/27/2015[employer] Patient Education ? 2018 [employer]. Normal [facility] ED Patient Summaryon 018 ED Patient Summary [facility] Emergency [address] [place] [address] pATIENT DISCHARGE INSTRUCTIONSPatient InformationName: JENNIFER AGUILLON Age: 22 YearsDate of : [birth year]MRN: For Visit: Dental pain; Dental pain; DENTAL PAINArrival Time: 04/11/18 20:21:00Phone: Primary Care Physician: Maryam WATTS Physician: Alistair Max MDComment:Visit Diagnosis:Diagnoses This Visit Dental caries (K02.9) Dental pain (K08.8) Dental pain ([id number]) Dental pain ([id number]) Pain, dental (K08.89)If you received any narcotics, [...] sign any legal documentsWith: Address: When:SOLOMON WATTS [address] [place], [place] [address], [place] [id number] Business (1) Within 3 to 5 daysMedication Information:The exam and treatment you received today in the [facility] Emergency Department were for an urgent problem and are not intended as complete care. It is important for you to follow up with a doctor, nurse practitioner, or physician?s assistant general manager for ongoing care. If your symptoms [...] number so we can reach you if necessary.[facility] Department has provided you with a complete list of medications post discharge. Please inform your applied researcher/provider of your visit and for further instruction [...] mouth and teeth. This keeps them healthy.? [place] your teeth 2 times a day. Use toothpaste with fluoride in it.? Floss your teeth once a day.? If your dentist prescribed an antibiotic medicine to treat an infection, take it as told. Do not stop taking the antibiotic even if your condition gets better.? Keep all follow-up visits as told by your dentist. This is important. This includes all cleanings.Preventing dental caries? [place] your teeth every morning and night. Use [...] Reviewed: 03/17/2017[employer] Patient Education ? 2017 [employer].Dental PainDental pain may be caused by [...] Reviewed: 06/27/2015[employer] Interactive Patient Education ? 2018 [employer]. Viruses or BacteriaWhat?s got you sick?Antibiotics only [...] Antibiotics Jazmin.[place]. Department of Health and Human ServicesFayette County Memorial Hospitalers for Disease Control and Prevention March 2014 [facility] Vital Signs Date Time Vital Sign Value Performing Clinician Facility 05-28-2024 14:27-0500 Body height 167.6 cm Radha Santoyo DO Work Phone: [facility] 05-28-2024 14:27-0500 Body mass index (BMI) [Ratio] 34.49 kg/m2 Radha Santoyo DO Work Phone: [facility] 05-28-2024 14:27-0500 Body weight 96.93 kg Radha Santoyo DO Work Phone: [facility] 05-28-2024 14:27-0500 Diastolic blood pressure 83 mm[Hg] Radha Santoyo DO Work Phone: [facility] 05-28-2024 14:27-0500 Heart rate 96 /min Radha Santoyo DO Work Phone: [facility] 05-28-2024 14:27-0500 SaO2% (BldA) [Mass fraction] 96 % Radha Santoyo DO Work Phone: [facility] 05-28-2024 14:27-0500 Systolic blood pressure 136 mm[Hg] Radha Santoyo DO Work Phone: [facility] 05-19-2024 09:42-0500 Body mass index (BMI) [Ratio] 35.02 kg/m2 Kenia Menaoll PATIENT PORTAL REPRESENTATIVE Work Phone: [facility] 05-19-2024 09:42-0500 Body weight 98.43 kg Kenia Menaoll PATIENT PORTAL REPRESENTATIVE Work Phone: [facility] 05-19-2024 09:42-0500 Diastolic blood pressure 74 mm[Hg] Kenia Felix PATIENT PORTAL REPRESENTATIVE Work Phone: [facility] 05-19-2024 09:42-0500 Systolic blood pressure 128 mm[Hg] Kenia Felix PATIENT PORTAL REPRESENTATIVE Work Phone: [facility] 03-19-2024 00:22-0400 Diastolic blood pressure 81 mm[Hg] [facility] 03-19-2024 00:22-0400 Heart rate 97 /min [facility] 03-19-2024 00:22-0400 Respiratory rate 18 /min [facility] 03-19-2024 00:22-0400 SaO2% (BldA) [Mass fraction] 98 % [facility] 03-19-2024 00:22-0400 Systolic blood pressure 113 mm[Hg] [facility] 03-18-2024 21:56-0400 Body temperature 98.2 [degF] [facility] 03-18-2024 21:54-0400 Body height 167.64 cm [facility] 03-18-2024 21:54-0400 Body weight 97.52 kg [facility] 03-05-2024 12:39-0400 Body height 167.64 cm [facility] 03-05-2024 12:39-0400 Body mass index (BMI) [Ratio] 37.1 kg/m2 [facility] 03-05-2024 12:39-0400 Body temperature 97.6 [degF] [facility] 03-05-2024 12:39-0400 Body weight 104.32 kg [facility] 03-05-2024 12:39-0400 Diastolic blood pressure 84 mm[Hg] [facility] 03-05-2024 12:39-0400 Heart rate 90 /min [facility] 03-05-2024 12:39-0400 Respiratory rate 18 /min [facility] 03-05-2024 12:39-0400 SaO2% (BldA) [Mass fraction] 99 % [facility] 03-05-2024 12:39-0400 Systolic blood pressure 118 mm[Hg] [facility] 05-07-2023 13:15-0400 Body height 167.64 cm Key Patel Other [facility] 05-07-2023 13:15-0400 Body mass index (BMI) [Ratio] 37.54 kg/m2 Key Ladd [facility] Other 05-07-2023 13:15-0400 Body temperature 97.8 [degF] Key Patel Other [facility] Other 05-07-2023 13:15-0400 Body weight 105.51 kg Key Patel Other [facility] Other 05-07-2023 13:15-0400 Respiratory rate 18 /min Key Patel Other [facility] Other 05-07-2023 13:15-0400 SaO2% (BldA) [Mass fraction] 98 % Key Patel Other [facility] Other 11-08-2022 13:50-0400 Body height 167.64 cm Chase Saldana Other [facility] Other 11-08-2022 13:50-0400 Body mass index (BMI) [Ratio] 35.51 kg/m2 Chase Saldana Other [facility] Other 11-08-2022 13:50-0400 Body weight 99.79 kg Chase Saldana Other [facility] Other 04-26-2022 11:55-0400 Body height 167.64 cm Autumn Marley Other [facility] Other 04-26-2022 11:55-0400 Body mass index (BMI) [Ratio] 35.02 kg/m2 Autumn Marley Other [facility] Other 04-26-2022 11:55-0400 Body temperature 97.7 [degF] Autumn Marley Other [facility] Other 04-26-2022 11:55-0400 Body weight 98.43 kg Autumn Marley Other [facility] Other 04-26-2022 11:55-0400 Diastolic blood pressure 82 mm[Hg] Autumn Marley Other [facility] Other 04-26-2022 11:55-0400 Respiratory rate 18 /min Autumn Marley Other [facility] Other 04-26-2022 11:55-0400 SaO2% (BldA) [Mass fraction] 98 % Autumn Marley Other [facility] Other 04-26-2022 11:55-0400 Systolic blood pressure 122 mm[Hg] Autumn Marley Other [facility] Other 04-23-2022 10:50-0400 Body height 167.64 cm Autumn Marley Other [facility] Other 04-23-2022 10:50-0400 Body mass index (BMI) [Ratio] 33.89 kg/m2 Autumn Marley Other [facility] Other 04-23-2022 10:50-0400 Body temperature 97.8 [degF] Autumn Marley Other [facility] Other 04-23-2022 10:50-0400 Body weight 95.26 kg Autumn Marley Other [facility] Other 04-23-2022 10:50-0400 Respiratory rate 18 /min Autumn Marley Other [facility] Other 04-23-2022 10:50-0400 SaO2% (BldA) [Mass fraction] 98 % Autumn Marley Other [facility] 03-27-2022 10:15-0400 Body height 167.64 cm Deb Simon Other [facility] Other 03-27-2022 10:15-0400 Body mass index (BMI) [Ratio] 34.38 kg/m2 Deb Simon Other [facility] 03-27-2022 10:15-0400 Body temperature 97.4 [degF] Deb Simon Other [facility] 03-27-2022 10:15-0400 Body weight 96.62 kg Deb Simon Other [facility] Other 03-27-2022 10:15-0400 Respiratory rate 18 /min Deb Simon Other [facility] Other 03-27-2022 10:15-0400 SaO2% (BldA) [Mass fraction] 96 % Deb Simon Other [facility] Other 04-05-2021 16:10-0400 Body height 167.64 cm Lucinda Salgado Other [facility] Other 04-05-2021 16:10-0400 Body mass index (BMI) [Ratio] 33.25 kg/m2 Lucinda Salgado Other [facility] Other 04-05-2021 16:10-0400 Body temperature 97.3 [degF] Lucinda Salgado Other [facility] Other 04-05-2021 16:10-0400 Body weight 93.44 kg Lucinda Salgado Other [facility] Other 04-05-2021 16:10-0400 Diastolic blood pressure 74 mm[Hg] Lucinda Salgado Other [facility] Other 04-05-2021 16:10-0400 Respiratory rate 18 /min Lucinda Salgado Other [facility] Other 04-05-2021 16:10-0400 SaO2% (BldA) [Mass fraction] 99 % Lucinda Salgado Other [facility] Other 04-05-2021 16:10-0400 Systolic blood pressure 111 mm[Hg] Lucinda Salgado Other [facility] Other Encounters Encounter Date Encounter Type Care Provider Facility Start: 05-28-2024 End: 05-28-2024 ambulatory [facility] Start: 05-28-2024 End: 05-28-2024 Office outpatient new 45 minutes Radha M Yarelis DO Work Phone: [facility] Comment on above: Chronic cough (Prima ry Dx); Mild intermittent asthma in adult without complication Start: 05-28-2024 End: 05-28-2024 ambulatory [facility] Start: 05-22-2024 ambulatory NON STAFF Facility:[facility] Start: 05-19-2024 End: 05-19-2024 Bamboo flowsheet Kenia Washington PATIENT PORTAL REPRESENTATIVE Work Phone: [facility] [place] [facility] Start: 05-19-2024 End: 05-19-2024 Bamboo flowsheet Kenia Washington PATIENT PORTAL REPRESENTATIVE Work Phone: [facility] Start: 05-19-2024 End: 05-19-2024 Office outpatient visit 25 minutes Kenia Washington PATIENT PORTAL REPRESENTATIVE [facility] Comment on above: Seizures (CMS/HCC) ( Primary Dx); Mood disorder (CMS/HCC); Chronic migraine without aura without status migrainosus, not intractable (CMS/HCC); Chronic bilateral low back pain, unspecified whether sciatica present; Paresthesia of both lower extremities; Fatty infiltration of bone marrow Start: 05-19-2024 End: 05-19-2024 ambulatory KENIA WASHINGTON Not Available Start: 05-13-2024 End: 05-13-2024 Emergency department patient visit [facility] Start: 05-11-2024 End: 05-11-2024 Patient encounter procedure [facility] [place] Work Phone: Start: 05-11-2024 End: 05-11-2024 ambulatory NON STAFF [facility] Work Phone: Start: 2024 End: 2024 ambulatory RADHA Rodgers [facility] Start: 04-30-2024 End: 04-30-2024 Emergency department patient visit [facility] Start: 04-28-2024 Registered [facility] Start: 04-28-2024 End: 04-28-2024 ambulatory [facility] Start: 04-14-2024 ambulatory KENIAGUSTAVO WASHINGTON [facility] Start: 04-01-2024 End: 04-01-2024 ambulatory KENIA WASHINGTON Not Available Start: 03-18-2024 End: 03-19-2024 Emergency department patient visit [facility] Work Phone: Start: 03-18-2024 End: 03-18-2024 ambulatory NON STAFF [facility] Work Phone: Start: 03-18-2024 End: 03-18-2024 Patient encounter procedure [facility] [place] Work Phone: Start: 03-10-2024 ambulatory KENIA WASHINGTON [facility] Start: 03-06-2024 Registered [facility] Start: 03-05-2024 End: 03-05-2024 ambulatory NON STAFF [facility] Work Phone: Start: 03-05-2024 End: 03-05-2024 Patient encounter procedure [facility] Work Phone: Start: 03-05-2024 End: 03-05-2024 ambulatory KAMLA DAVID Not Available Start: 02-27-2024 End: 02-27-2024 ambulatory KENIA WASHINGTON Not Available Start: 02-13-2024 End: 02-14-2024 Emergency department patient visit [facility] Start: 02-12-2024 End: 02-12-2024 ambulatory COLÓN FADOCD Not Available Start: 02-07-2024 Registered [facility] Start: 02-03-2024 End: 02-03-2024 ambulatory COLÓN FAWWAD Not Available Start: 01-30-2024 End: 01-30-2024 ambulatory KENIA WASHINGTON Not Available Start: 01-09-2024 End: 01-09-2024 ambulatory KENIA WASHINGTON Not Available Start: 01-02-2024 End: 01-02-2024 ambulatory MARY Asia WIGGINS Not Available Start: 12-28-2023 End: 12-29-2023 Emergency department patient visit [facility] Start: 12-16-2023 End: 12-16-2023 ambulatory SHAIKH SHAREED Not Available Start: 12-11-2023 End: 12-11-2023 Emergency department patient visit [facility] Start: 12-10-2023 End: 12-10-2023 ambulatory KAMLA DAVID Not Available Start: 12-05-2023 End: 12-05-2023 ambulatory KAMLA DAVID Not Available Start: 12-05-2023 End: 12-05-2023 ambulatory MARY Betancourt WIGGINS Not Available Start: 12-02-2023 End: 12-02-2023 ambulatory PALMA GUY Not Available Start: 11-26-2023 End: 11-26-2023 ambulatory SHAIKH KORIN Not Available Start: 11-25-2023 End: 11-26-2023 Emergency department patient visit [facility] Start: 11-25-2023 End: 11-27-2023 Emergency department patient visit [facility] Start: 11-21-2023 End: 11-21-2023 ambulatory MARY Betancourt WIGGINS Not Available Start: 11-16-2023 End: 11-16-2023 Emergency department patient visit [facility] Start: 10-30-2023 End: 10-30-2023 ambulatory JOHN HADDAD Not Available Start: 10-15-2023 End: 10-15-2023 ambulatory SHAIKH KORIN Not Available Start: 10-09-2023 End: 10-09-2023 Emergency department patient visit [facility] Start: 09-21-2023 End: 09-22-2023 Emergency department patient visit [facility] Start: 09-21-2023 End: 09-22-2023 Emergency department patient visit [facility] Start: 08-27-2023 End: 08-27-2023 Emergency department patient visit [facility] Start: 07-09-2023 End: 07-09-2023 Emergency department patient visit [facility] Start: 05-07-2023 End: 05-07-2023 ambulatory Key Patel Other [facility] Other Start: 05-07-2023 Office outpatient vi sit 15 minutes Key Patel [facility] Start: 02-19-2023 ambulatory COLÓN FAAsiaWAD Facility: [place] Start: 11-08-2022 Office outpatient vi sit 15 minutes Chase Saldana [facility] Start: 11-08-2022 End: 11-08-2022 ambulatory Chase Saldana Other [facility] Other Start: 11-08-2022 End: 11-08-2022 Departed Referred PA-C Chase Saldana Work Phone: [facility] [place] Work Phone: Start: 04-26-2022 End: 04-26-2022 ambulatory Autumn Donell Other [facility] Other Start: 04-26-2022 Office outpatient vi sit 15 minutes Autumn Donell [facility] Start: 04-23-2022 End: 04-23-2022 ambulatory Autumn Donell Other [facility] Other Start: 04-23-2022 Office outpatient vi sit 15 minutes Autumn Donell [facility] Start: 04-03-2022 End: 04-03-2022 ambulatory COLÓN H FAWWAD Facility: Start: 03-27-2022 End: 03-27-2022 ambulatory Deb Simon Other [facility] Other Start: 03-27-2022 Office outpatient vi sit 25 minutes Deb Simon [facility] Start: 03-22-2022 End: 03-22-2022 ambulatory COLÓN H FAWWAD Facility:[facility] Start: 03-09-2022 End: 03-09-2022 ambulatory COLÓN H FAWWAD Facility: Start: 02-08-2022 End: 02-08-2022 ambulatory KARAN PALACIOS [...] Start: 07-18-2021 End: 07-19-2021 ambulatory SHAIKH Rosales TOLLIVERD Facility:[facility] Start: 05-28-2021 ambulatory SHAIKH Rosales [place]ANG[place] Facilit y:[facility] Start: 05-01-2021 End: 05-01-2021 ambulatory SHAIKH Rosales [place]ANG[place] Facility:[facility] Start: 04-28-2021 End: 04-29-2021 ambulatory SHAIKH Rosales TOLLIVERD Facility:[facility] Start: 04-05-2021 Office outpatient vi sit 15 minutes Lucinda Salgado [facility] Start: 04-12-2018 End: 04-12-2018 Patient encounter [facility] Facility:[facility] Start: 04-11-2018 End: 04-12-2018 Emergency department patient visit [facility] Facility:[facility] Procedures Date Procedure Procedure Detail Performing Clinician Start: 05-11-2024 MR lumbar spine wo con Start: 05-11-2024 MRI of head Plan of Treatment Date Care Activity Detail Author Start: 05-28-2025 Adult BMI Screening Adult BMI Screen ing [facility] Start: 05-28-2025 Tobacco Screening Tobacco Screening [facility] Start: 12-09-2024 End: 12-09-2024 Patient encounter procedure 12/09/2024 2:00 PM EDT Office Visit [facility] [address] [place] [address] Palma Guy PA [address] [place] [address] [facility] Start: 07-21-2024 End: 07-21-2024 Patient encounter procedure 07/21/2024 11:00 AM EST Office Visit [facility] [address] [place] [phone] Kenia Washington NP [address] [place] [address] [facility] [facility] [address] Start: 05-19-2024 End: 05-19-2024 Patient encounter procedure 05/19/2024 9:40 AM EST [facility] [address] [place] [id number] Kenia Washington NP [address] [place] [address] Seizures (CMS/HCC) (Primary Dx); Mood disorder (CMS/HCC); Episodic migraine (CMS/HCC); Chronic bilateral low back pain, unspecified whether sciatica present; Paresthesia of both lower extremities; Fatty infiltration of bone marrow [facility] [place] [address] Comment on above: Seizures (CMS/HCC) ( Primary Dx); Mood disorder (CMS/HCC); Episodic migraine (CMS/HCC); Chronic bilateral low back pain, unspecified whether sciatica present; Paresthesia of both lower extremities; Fatty infiltration of bone marrow Start: 03-15-2024 COVID-19 Vaccine ( season) COVID-19 Vaccine ( season) [facility] Start: 03-15-2024 Influenza vaccination N [facility] Start: 2023 Screening for malign ant neoplasm of cervix [facility] Start: 11-08-2022 Bacteria identified in Urine by Culture Urine Culture [facility] Start: 2014 Screening for malign ant neoplasm of cervix Pap Smear [facility] Start: 2012 DTaP,Tdap and Td Vaccines (1 - Tdap) DTaP,Tdap and Td Vaccines (1 - Tdap) [facility] Start: 2011 Adult BMI Follow Up Plan Adult BMI Follow Up Plan [facility] Start: 2005 Depression Screening Depression Scre [facility] Patient Education Panic Attack ED [facility] Work Phone: Patient referral [facility] Work Phone: Immunizations Immunization Date Immunization Notes Care Provider Tank dacosta 10-25-2023 influenza, injectabl e, quadrivalent, preservative free Kenia Washington PATIENT PORTAL REPRESENTATIVE Work Phone: [facility] 10-25-2023 influenza virus vaccine, unspecified formulation Kenia Washington PATIENT PORTAL REPRESENTATIVE Work Phone: [facility] 04-23-2021 influenza, seasonal, injectable Kenia Washington PATIENT PORTAL REPRESENTATIVE Work Phone: [facility] 03-28-2021 Moderna SARS-CoV-2 Vaccination Kenia Washington PATIENT PORTAL REPRESENTATIVE Work Phone: [facility] 01-26-2020 Toradol per 15 mg Lucinda Dym ond Other [facility] Other 09-08-2019 Rocephin 500 mg Lucinda Dymon d Other [facility] Other 06-10-2018 Influenza, injectabl e, Madin Camila Canine Kidney, preservative free, quadrivalent Kenia Washington PATIENT PORTAL REPRESENTATIVE Work Phone: [facility] 12-11-2011 human papilloma viru s vaccine, quadrivalent Kenia Washington PATIENT PORTAL REPRESENTATIVE Work Phone: [facility] 11-09-2011 human papilloma viru s vaccine, quadrivalent Kenia Washington PATIENT PORTAL REPRESENTATIVE Work Phone: [facility] Payers Date Payer Category Payer Medicaid [id number] 2022 Medicaid [id number] 2. [id number] 2018 Unknown 1993 Unknown [id number] 2.16.84 0.1.089866.3.579.2.593 1993 Unknown [id number] 2.16.84 0.1.443272.3.579.2.593 1993 Unknown [id number] 2.16.84 0.1.475989.3.579.2.593 1993 Unknown [id number] 2.16.84 0.1.632143.3.579.2.593 1993 Unknown [id number] 2.16.84 0.1.096776.3.579.2.593 1993 Unknown [id number] 2.16.84 0.1.450656.3.579.2.593 1993 Unknown [id number] 2.16.84 0.1.966916.3.579.2.593 1993 Unknown [id number] 2.16.84 0.1.815942.3.579.2.593 1993 Unknown [id number] 2.16.84 0.1.642145.3.579.2.593 1993 Unknown [id number] 2.16.84 0.1.294158.3.579.2.593 1993 Unknown [id number] 2.16.84 0.1.025489.3.579.2.593 1993 Unknown [id number] 2.16.84 0.1.320232.3.579.2.593 1993 Unknown [id number] 2.16.84 0.1.838246.3.579.2.593 1993 Unknown [id number] 2.16.84 0.1.096624.3.579.2.593 1993 Unknown [id number] 2.16.84 0.1.203492.3.579.2.1259 1993 Unknown [id number] 2.16.84 0.1.792004.3.579.2.1259 1993 Unknown [id number] 2.16.84 0.1.362871.3.579.2.1259 1993 Unknown [id number] 2.16.84 0.1.132060.3.579.2.1259 1993 Unknown [id number] 2.16.84 0.1.800781.3.579.2.1259 1993 Unknown [id number] 2.16.84 0.1.789802.3.579.2.1259 1993 Unknown [id number] 2.16.84 0.1.049150.3.579.2.1259 1993 Unknown [id number] 2.16.84 0.1.732271.3.579.2.1259 1993 Unknown [id number] 2.16.84 0.1.088783.3.579.2.1259 1993 Unknown [id number] 2.16.84 0.1.596197.3.579.2.9 1993 Unknown [id number] 2.16.84 0.1.337514.3.579.2.1259 1993 Unknown [id number] 2.16.84 0.1.630499.3.579.2.9 1993 Unknown [id number] 2.16.84 0.1.229387.3.579.2.1259 1993 Unknown [id number] 2.16.84 0.1.266201.3.579.2.1259 1993 Unknown [id number] 2.16.84 0.1.346053.3.579.2.1259 1993 Unknown [id number] 2.16.84 0.1.671689.3.579.2.1259 1993 Unknown [id number] 2.16.84 0.1.507969.3.579.2.1259 1993 Unknown [id number] 2.16.84 0.1.595549.3.579.2.1259 1993 Unknown [id number] 2.16.8 40.1.319718.3.579.2.1286 1993 Unknown [id number] 2.16.8 40.1.683346.3.579.2.1286 1993 Unknown [id number] 2.16.8 40.1.488149.3.579.2.1286 1993 Unknown [id number] 2.16.8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
--- NOTE | 2024-06-08 13:52 | P.CN_ITS ---
Consult Note: HPI Data of Consult Patient: new to practice Consult date: 06/08/24 Requesting Physician: Bob Garcia MD Primary Care Provider: [facility] Consult Narrative Reason for consult: low back, bilateral lower extremity pain Narrative: 29yof who presents for evaluation. several years of worsening low back pain with radiation into bilateral feet. imaging reviewed, significant for disc herniation with resultant stenosis at l5-s1. has engaged in >6 weeks of provider directed h ome exercise program, as well as pt. uses flexeril, though makes her tired. denies adverse med side effects. cc:: CC: Bob Garcia MD Review of Systems ROS Status of ROS 10 or more systems reviewed and unremark able except as noted in history and below PFSH PFSH Social History Smoking status: Former smoker Little interest or pleasure in doing things: not at all Feeling down, depressed, or hopeless: not at all Meds Home Medications and Allergies Home Medications ?Medication ?Instructions ?Recorded ?Confirmed ?Type oxcarbazepine 300 mg tablet 300 mg PO BID 11/26/23 06/03/24 History rqbbzqvtno-wkceucsswdegn-thfgwssy 1 cap PO Q6H PRN pain 04/24/24 06/03/24 History 50 mg-300 mg-40 mg capsule cholecalciferol (vitamin D3) 10 10 mcg PO DAILY 04/24/24 06/03/24 History mcg (400 unit) capsule (Vitamin D3) cyclobenzaprine 5 mg tablet 5 mg PO DAILY 04/24/24 06/03/24 History rizatriptan 5 mg tablet 5 mg PO Q2H PRN migraine headache 04/24/24 06/03/24 History epinephrine 0.15 mg/0.3 mL 0.3 ml IM PRN 05/20/24 06/03/24 History injection,auto-injector hydroxyzine HCl 25 mg tablet 25 mg PO DAILY PRN itching 05/20/24 06/03/24 History lorazepam 0.5 mg tablet mg 05/20/24 History lumateperone 10.5 mg capsule 10.5 mg PO 05/20/24 History (Caplyta) lorazepam 1 mg tablet (Ativan) 1 mg PO Q6H PRN Twitching 3 days 06/03/24 Rx #10 tabs Allergies Allergy/AdvReac Type Severity Reaction Status Date / Time latex Allergy Unknown Rash Verified 06/03/24 22:59 adhesive Allergy Rash Verified 06/03/24 22:59 Sulfa (Sulfonamide AdvReac Mild Hives Verified 06/03/24 22:59 Antibiotics) Exam Narrative Exam Narrative: Psych-alert and oriented x 3. Attentive and appropriate, constitutionally normal, displays normal mood and affect per situation. There are no obvious deficits in memory, reasoning, or intellect.? Skin-no obvious rashes, bruising, erythema noted to the patient's area of pain.? Extremities- extremities are warm with minimal edema and palpable pulses. Lumbar-tenderness to palpation noted in the lumbar spine and paraspinal musculature. Pain is elicited with flexion, extension, and lateral rotation of the lumbar spine. Range of motion is diminished with these motions. Facet loading maneuvers are positive.? Strength-noted to be unremarkable with the exception of decreased strength rated at 4 out of 5 in bilateral quadriceps femoris, anterior tibialis. Sensory-no notable sensory deficits in the bilateral lower extremities to touch or pinprick in all dermatomal distributions with the exception to decreased sensation to the bilateral L5, S1 dermatomal distribution Coordination remains intact.? Gait remains non-antalgic. Assessment and Plan Assessment and Plan (1) Lumbar stenosis with neurogenic claudication: (2) Lumbar disc displacement without myelopathy: (3) Lumbar spondylosis: Plan 29yof who presents for assessment. failed conservative measures, as noted. imaging reviewed, as noted. given symptoms and imaging, prudent to attempt bilateral l5-s1 tfesi under fluoroscopic guidance. she is in agreement. meds reviewed. will discontinue flexeril and trial robaxin 750mg tid prn. follow up after procedure.
== END 2024-06-08 12:42 | disposition home or self-care (01) ==
LOC: PM 12:42
PROVIDERS: Visit Provider Anesthesiology
DX: M48.062 Spinal stenosis, lumbar region with neurogenic claudication (principal); M51.26 Other intervertebral disc displacement, lumbar region; M47.816 Spondylosis without myelopathy or radiculopathy, lumbar region
CPT/HCPCS: G0463

== ENCOUNTER 2024-06-12 12:46 | Emergency (ER) | payer MEDICAID, SELFPAY ==
--- OUTSIDE RECORDS SUMMARY | 2024-06-12 12:53 | XMS_ITS | CCD ---
Author Organization [facility] Care Team Providers Care Dental Equipment Technician Name Role Phone Alistair Max Unavailable Unavailable [...] PALACIOS Attending Unavailable TIO PALACIOSYL Admitting Unavailable SUAZNNE, KARAN Consulting Unavailable FAWWAD, COLÓN H Primary [...] FAWWAD, COLÓN H Primary Care Unavailable FAWWAD, CLOÓN H Consulting Unavailable FAWWAD, COLÓN H Primary [...] UnavailMD Gerald Del Castillo Attending Provider [phone] NON STAFF Primary Care Provider UnavailMD Gerald Del Castillo Attending Provider WILDA Washington-PHARMACY COORDINATOR-C Kenia Benjamin Attending Provider MD Estefani Alexander Jr Emergency Provider NON STAFF Primary Care Provider UnavailMD Gerald Del Castillo Attending Provider [phone] WILDA Washington-PHARMACY COORDINATOR-C Kenia Benjamin Attending Provider WILDA Wolff [place] Primary Care Provider Korin VÁZQUEZ [facility] Primary Care Provider [phone] Frankie DO, Christbenedictoer Unavailable Felix BUG TRIMMER, Kenia Unavailable SHAIKH LANGLEY Attending Unavailable JOHN [...] Primary Care Unavailable Kenia Washington [facility] Kenia Washington Admitting Unavailable NON STAFF Primary Care Unavailable Gerald Wagner Admitting Unavailab Gerald Lazo Attending Unavailab RADHA Ramirez Attending Unavailable [facility] Referring Unavailable [facility] Primary Care Unavailable FAWCOD, [facility] Primary Care Unavailable FAWWAD, [facility] Primary Care Unavailable MARTELL OTERO Attending Unavailable MARTELL OTERO Referring Unavailable FAWWAD, COLÓN Primary Care Unavailable MARTELL OTERO Attending Unavailable SHANNA MARTELL W Referring Unavailable FAWWAD, COLÓN Primary Care Unavailable MARTELL OTERO Attending Unavailable MARTELL OTERO Referring Unavailable FAWWAD, COLÓN Primary Care Unavailable FAWCOD, [facility] Primary Care Unavailable CHETAN HEBERT Attending Unavailable FAWWAD, COLÓN Primary Care Unavailable ALICE SHANE Attending Unavailable FAWWAD, COLÓN Primary Care Unavailable SCOTT, AHMAD Attending Unavailable SCOTT, AHMAD Attending Unavailable SCOTT, AHMAD Referring Unavailable FAWWAD, COLÓN Primary Care Unavailable FAWWAD, COLÓN Primary Care Unavailable ALICE SHANE Attending Unavailable FAWWAD, COLÓN Primary Care Unavailable YNAIQUE GONZALES Attending Unavailable FAWWAD, COLÓN Primary Care Unavailable SCOTT, AHMAD Attending Unavailable SCOTT, AHMAD Attending Unavailable SCOTT, AHMAD Referring Unavailable FAWWAD, COLÓN Primary Care Unavailable FAWWAD, COLÓN Primary Care Unavailable WASHINGTON, KENIA Referring Unavailable FAWWAD, COLÓN Primary Care Unavailable WASHINGTON, KENIA Referring Unavailable FAWWAD, COLÓN Primary Care Unavailable SYED, BERNICE Referring Unavailable SYED, [place] Primary Care Unavailable SYED, [place] Primary Care Unavailable STAN CARTER Attending Unavailable RADHA SANTOYO Attending Unavailable RADHA SANTOYO Referring Unavailable SYED, BERNICE Primary Care Unavailable SYED, BERNICE Primary Care Unavailable SANDY ROMERO Attending Unavailable YARELIS, RADHA Ana Maria Referring Unavailable SYED, [place] Primary Care Unavailable Syed ROCK CRUSHING MACHINE OPERATOR-PHARMACY COORDINATOR, [place] Primary Care Provider Allergies Allergy Classification Reported Allergen(s) Allergy Type Date of Onset Reaction(s) Facility (14 sources) ibuprofen; Translations: [ibuprofen] Drug Allergy 11-25-19 17 Nausea Only, Nausea [facility] Repository (1 source) Latex; Translations: [Latex Allergy] Propensity to adverse reactions to drug (disorder) [facility]ository (1 source) Sulfonamides (Antibiotic); Translations: [sulfa drugs] Propensity to adverse reactions to drug (disorder) [facility]ository (10 sources) Lactase Drug Allergy 03-05-20 24 vomiting [facility] (14 sources) Latex; Translations: [LATEX] Drug allergy 08-24-19 19 anaphylaxis [facility] (10 sources) Sulfacetamide Drug Allergy 03-05-20 24 hives [facility] (2 sources) Lactose Drug Allergy [facility] Repository (2 sources) Latex Drug allergy (disorder) 12-30-19 13 [facility] Repository (2 sources) Penicillin Drug Allergy [facility] Repository (1 source) Propylthiouracil Drug Allergy [facility] Repository (2 sources) Sulfonamides (Antibiotic) Drug allergy (disorder) 12-30-19 13 [facility] Repository (9 sources) Sulfonamides (Antibiotic); Translations: [Sulfa (Sulfonamide Antibiotics)] Allergy to substance 11-25-19 Itching [facility] (6 sources) Clindamycin; Translations: [CLINDAMYCIN] Drug Allergy 06-07-20 Hives [facility] (4 sources) Desvenlafaxine Drug Allergy 11-29-19 [facility] (3 sources) Escitalopram Drug Allergy 09-21-19 Hives [facility] (3 sources) gabapentin Drug Allergy 04-01-20 [facility] Work Phone: (5 sources) Lamotrigine; Translations: [LAMOTRIGINE] Propensity to adverse reactions 01-13-20 Swelling, Hives [facility] (4 sources) Latex Allergy to substance 08-24-19 19 Unknown, Anaphylaxis [facility] (4 sources) Penicillins; Translations: [PENICILLINS] Drug Intolerance 12-05-19 Rash [facility] (3 sources) Sulfonamides (Antibiotic) Drug Allergy 11-25-19 17 Unknown, Hives, Itching [facility] (3 sources) Verapamil Drug Allergy 04-01-20 [facility] (3 sources) Wound Dressing Adhesive Drug Intolerance 01-09-20 [facility] (1 source) Lactase Drug Allergy 03-18-20 [facility] (1 source) Latex Drug allergy (disorder) 03-18-20 [facility] (1 source) Sulfacetamide Drug Allergy 03-18-20 [facility] (3 sources) Adhesive agent; Translations: [...] (1 source) lamoTRIgine Drug Allergy 01-13-20 18 [facility] Medications Current Medications Medication Drug Class(es) [...] capsule Take 1 capsule by mouth Active [id number] 200 actuat albuterol 0.09 mg/actuat metered dose [...] Active Start: 03-13-2024 take 1 capsule by [facility] once daily cholecalciferol (Vitamin D-3) 10 [...] 1.5 mg/ml oral solution (2 sources) Uncompetitive S-pkqglv-F-asparta te Receptor Antagonist, Sigma-1 Agonist [place] DM 7.5-7.5 MG/5ML 10 ml Orally every 6-8 hours as needed for 8 days Active [id number] 0.3 ml EPINEPHrine 0.5 mg/ml auto-injector (1 [...] Mar, Not-Taking take 1 capsule by mo [facility] every twelve hours Clindamycin HCl 300 MG [...] 03-18-2024 Episodic Other aftercare (1 source) Other half-way (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 therapy; Translations: [OTH MANAGER CONFIGURATION CURRENT DRUG THERAPY] Onset: 03-23-2022 Episodic Other [...] Qn (S) kU/L NINF - 0.10 kU/L [facility] Comment on above: Class 0: Normal A. fumigatus IgE Qn (S) kU/L NINF - 0.10 kU/L [facility] Comment on above: Class 0: Normal Turkmen house dust mite IgE Qn (S) kU/L NINF - 0.10 kU/L [facility] Comment on above: Class 0: Normal B[place] grass IgE Qn (S) kU/L NINF - 0.10 kU/L [facility] Comment on above: Class 0: Normal Boxelder IgE Qn (S) kU/L NINF - 0.10 kU/L [facility] Comment on above: Class 0: Normal C. herbarum IgE Qn (S) kU/L NINF - 0.10 kU/L [facility] Comment on above: Class 0: Normal [place] Pollen IgE Qn (S) kU/L NINF - 0.10 kU/L [facility] Comment on above: Class 0: Normal Cat dander IgE Qn (S) kU/L NINF - 0.10 kU/L [facility] Comment on above: Class 0: Normal Cocklebur IgE Qn (S) kU/L NINF - 0.10 kU/L [facility] Comment on above: Class 0: Normal Cockroach IgE Qn (S) kU/L NINF - 0.10 kU/L [facility] Comment on above: Class 0: Normal Common Pigweed IgE Qn (S) kU/L NINF - 0.10 kU/L [facility] Comment on above: Class 0: Normal Common Ragweed IgE Qn (S) kU/L NINF - 0.10 kU/L [facility] Comment on above: Class 0: Normal Mohave IgE Qn (S) kU/L NINF - 0.10 kU/L [facility] Comment on above: Class 0: Normal Dog dander IgE Qn (S) kU/L NINF - 0.10 kU/L [facility] Comment on above: Class 0: Normal house dust mite IgE Qn (S) kU/L NINF - 0.10 kU/L [facility] Comment on above: Class 0: Normal Goosefoot IgE Qn (S) kU/L NINF - 0.10 kU/L [facility] Comment on above: Class 0: Normal IgE Qn 13 [IU]/L [facility] Heather grass IgE Qn (S) kU/L NINF - 0.10 kU/L [facility] Comment on above: Class 0: Normal [place] blue grass IgE Qn (S) kU/L NINF - 0.10 kU/L [facility] Comment on above: Class 0: Normal Enamorado Plane IgE Qn (S) kU/L NINF - 0.10 kU/L [facility] Comment on above: Class 0: Normal Birch Elder IgE Qn (S) kU/L NINF - 0.10 kU/L [facility] Comment on above: Class 0: Normal Mountain Juniper IgE Qn (S) kU/L NINF - 0.10 kU/L [facility] Comment on above: Class 0: Normal Mouse urine proteins IgE Qn (S) kU/L NINF - 0.10 kU/L [facility] Comment on above: Class 0: Normal Mugwort IgE Qn (S) kU/L NINF - 0.10 kU/L [facility] Comment on above: Class 0: Normal Nettle IgE Qn (S) kU/L NINF - 0.10 kU/L [facility] Comment on above: Class 0: Normal P. notatum IgE Qn (S) kU/L NINF - 0.10 kU/L [facility] Comment on above: Class 0: Normal Pecan or [place] Tree IgE Qn (S) kU/L NINF - 0.10 kU/L [facility] Comment on above: Class 0: Normal Saltwort IgE Qn (S) kU/L NINF - 0.10 kU/L [facility] Comment on above: Class 0: Normal Sheep Green Sea IgE Qn (S) kU/L NINF - 0.10 kU/L [facility] Comment on above: Class 0: Normal Silver Birch IgE Qn (S) kU/L NINF - 0.10 kU/L [facility] Comment on above: Class 0: Normal Guero IgE Qn (S) kU/L NINF - 0.10 kU/L [facility] Comment on above: Class 0: Normal White Jos IgE Qn (S) kU/L NINF - 0.10 kU/L [facility] Comment on above: Class 0: Normal White Elm IgE Qn (S) kU/L NINF - 0.10 kU/L [facility] Comment on above: Class 0: Normal White mulberry IgE Qn (S) kU/L NINF - 0.10 kU/L [facility] Comment on above: Class 0: Normal Yuma IgE Qn (S) kU/L NINF - 0.10 kU/L [facility] Comment on above: Class 0: Normal [facility] RESPIRATORY PANELon 05-28-20 24 ALTERNARIA ALTERNATA <0.10 Normal <0.10 [facility] Comment on above: Result Comment: Clas s 0: Normal Performed By: #### R AP ####[facility] ([id number])[address] [facility], [address] [place] [address] ASPERGILLUS FUMIGATUS <0.10 Normal <0.10 [facility] Comment on above: Result Comment: Clas s 0: Normal Performed By: #### R AP ####[facility] ([id number])[address] [facility], [address], [place] [address] BERMUDA GRASS <0.10 Normal <0.10 [facility] Comment on above: Result Comment: Clas s 0: Normal Performed By: #### R AP ####[facility] ([id number])[address], [address], [place] [address] BOX ELDER <0.10 Normal <0.10 [facility] Comment on above: Result Comment: Clas s 0: Normal Performed By: #### R AP ####[facility] ([id number])[address], [address], [place] [address] CAT DANDER <0.10 Normal <0.10 [facility] Comment on above: Result Comment: Clas s 0: Normal Performed By: #### R AP ####[facility] ([id number])[address], [place] [address] CLADOSPORIUM HERB <0.10 Normal <0.10 [facility] Comment on above: Result Comment: Clas s 0: Normal Performed By: #### R AP ####[facility] ([id number])[address], [address], [place] [address] COCKLEBUR <0.10 Normal <0.10 [facility] Comment on above: Result Comment: Clas s 0: Normal Performed By: #### R AP ####[facility] ([id number])[address], [address], [place] [address] COCKROACH <0.10 Normal <0.10 [facility] Comment on above: Result Comment: Clas s 0: Normal Performed By: #### R AP ####[facility] ([id number])[address], [address], [place] [address] COMMON PIGWEED <0.10 Normal <0.10 [facility] Comment on above: Result Comment: Clas s 0: Normal Performed By: #### R AP ####[facility] ([id number])[address], [address], [place] [address] COMMON RAGWEED <0.10 Normal <0.10 [facility] Comment on above: Result Comment: Clas s 0: Normal Performed By: #### R AP ####[facility] ([id number])[address], [address], [place] [address] COMMON SILVER BIRCH <0.10 Normal <0.10 [facility] Comment on above: Result Comment: Clas s 0: Normal Performed By: #### R AP ####[facility] ([id number])[address], [address], [place] [address] COTTONWO[place] <0.10 Normal <0.10 [facility] Comment on above: Result Comment: Clas s 0: Normal Performed By: #### R AP ####[facility] ([id number])[address], [address] [place] [address] DERMATOPH FARINAE <0.10 Normal <0.10 [facility] Comment on above: Result Comment: Clas s 0: Normal Performed By: #### R AP ####[facility] ([id number])[address], [address] [place] [address] DERMATOPH PTERONYSS <0.10 Normal <0.10 [facility] Comment on above: Result Comment: Clas s 0: Normal Performed By: #### R AP ####[facility] ([id number])[address], [address] [place] [address] DOG DANDER <0.10 Normal <0.10 [facility] Comment on above: Result Comment: Clas s 0: Normal Performed By: #### R AP ####[facility] ([id number])[address], [address] [place] [address] ELM <0.10 Normal <0.10 [facility] Comment on above: Result Comment: Clas s 0: Normal Performed By: #### R AP ####[facility] ([id number])[address], [address] [place] [address] GOOSEFOOT HEWITT QTR <0.10 Normal <0.10 [facility] Comment on above: Result Comment: Clas s 0: Normal Performed By: #### R AP ####[facility] ([id number])[address], [address], [place] [address] IGE 13 IU/mL Normal 0-165 [facility] Comment on above: Performed By: #### R AP ####[facility] ([id number])[address], [address], [place] [address] HEATHER GRASS <0.10 Normal <0.10 [facility] Comment on above: Result Comment: Clas s 0: Normal Performed By: #### R AP ####[facility] ([id number])[address], [address] [address] MAPLE LEAF SYCAMORE <0.10 Normal <0.10 [facility] Comment on above: Result Comment: Clas s 0: Normal Performed By: #### R AP ####[facility] ([id number])[address], [address], [place] [address] MEADOW GRASS [place] TERRA <0.10 Normal <0.10 [facility] Comment on above: Result Comment: Clas s 0: Normal Performed By: #### R AP ####[facility] ([id number])[address], [address], [place] [address] MOUNTAIN JUNIPER <0.10 Normal <0.10 [facility] Comment on above: Result Comment: Clas s 0: Normal Performed By: #### R AP ####[facility] ([id number])[address], [address], [place] [address] MOUSE URINE PROTEINS <0.10 Normal <0.10 [facility] Comment on above: Result Comment: Clas s 0: Normal Performed By: #### R AP ####[facility] ([id number])[address], [address] [place] [address] MUGWORT <0.10 Normal <0.10 [facility] Comment on above: Result Comment: Clas s 0: Normal Performed By: #### R AP ####[facility] ([id number])[address], [address] [place] [address] MULBERRY TREE <0.10 Normal <0.10 [facility] Comment on above: Result Comment: Clas s 0: Normal Performed By: #### R AP ####[facility] ([id number])[address], [address], [place] [address] NETTLE <0.10 Normal <0.10 [facility] Comment on above: Result Comment: Clas s 0: Normal Performed By: #### R AP ####[facility] ([id number])[address], [address], [place] [address] OAK <0.10 Normal <0.10 [facility] Comment on above: Result Comment: Clas s 0: Normal Performed By: #### R AP ####[facility] ([id number])[address], [address] [place] [address] PECAN HICKORY TREE <0.10 Normal <0.10 [facility] Comment on above: Result Comment: Clas s 0: Normal Performed By: #### R AP ####[facility] ([id number])[address], [address], [place] [address] PENICILLIUM CHRYSOGENUM <0.10 Normal <0.10 [facility] Comment on above: Result Comment: Clas s 0: Normal Performed By: #### R AP ####[facility] ([id number])[address], [address] [place] [address] ROUGH MARSHELDER <0.10 Normal <0.10 [facility] Comment on above: Result Comment: Clas s 0: Normal Performed By: #### R AP ####[facility] ([id number])[address], [address], [place] [address] SALTWORT KEVAN THISTLE <0.10 Normal <0.10 [facility] Comment on above: Result Comment: Clas s 0: Normal Performed By: #### R AP ####[facility] ([id number])[address], [address] [place] [address] SHEEP SORREL <0.10 Normal <0.10 [facility] Comment on above: Result Comment: Clas s 0: Normal Performed By: #### R AP ####[facility] ([id number])[address], [address] [place] [address] GUERO <0.10 Normal <0.10 [facility] Comment on above: Result Comment: Clas s 0: Normal Performed By: #### R AP ####[facility] ([id number])[address] [address] [place] [address] WALNUT TREE POLLEN <0.10 Normal <0.10 [facility] Comment on above: Result Comment: Clas s 0: Normal Performed By: #### R AP ####[facility] ([id number])[address], [address] [place] [address] WHITE JOS <0.10 Normal <0.10 [facility] Comment on above: Result Comment: Clas s 0: Normal Performed By: #### R AP ####[facility] ([id number])[address], [address] [place] [address] MR head/brain wo/w conon MR head/brain wo/w con [facility] Main [address] [address] MRI Report Signed Patient: Jennifer Aguillon MR#: [id number] 8 : 1995 Acct:[id number] Age/Sex: 29 / F ADM Date: 05/11/24 Loc: MR Room: Type: [facility] Attending Dr: Kenia Washington APRN-PHARMACY COORDINATOR-C Copies to: DELIA Mtz Ordering Provider: [...] Luis Baldwin M.D.05/11/2024 11:05 PM Dictation Location: [place] [address] Transcribed By: [facility] 05/11/242304 Dictated By: Juan Luis Baldwin DO 05/11/242301 Signed By: 05/11/242304 Normal The Pending [facility] To [facility] MR lumbar spine wo [facility] MR lumbar spine wo con [facility] [place] [address] MRI Report Signed Patient: Jennifer Aguillon MR#: [id number] 8 : 1995 Acct:[id number] Age/Sex: 29 / F ADM Date: 05/11/24 Loc: MR Room: Type: [facility] Attending Dr: Kenia LIN Copies to: DELIA [...] Luis Baldwin M.D.05/11/2024 11:02 PM Dictation Location: [place] [address] Transcribed By: [facility] 05/11/242301 Dictated By: Juan Luis Baldwin DO 05/11/242256 Signed By: 05/11/242301 Normal [facility]ending [facility] XR CHEST 2 VWSon 04-28-2024 [...] Vincent MD on 04/28/2024 2:10 PM Normal [facility] ECG 12 lead ECGon 03-18-2024 ECG 12 lead ECG [facility] Main [place] [address] [place] [address] Electrocardiograph Report Signed Patient: Jennifer Aguillon MR#: [id number] 8 : 1995 Acct:[id number] Age/Sex: 28 / F ADM Date: 03/18/24 Loc: ER Room: Type: [facility] ER Attending Dr: Ordering Provider: Estefani [...] ECGs available Confirmed by ESTEFANI ALEXANDER MD ([id number]) on 03/20/2024 5:58:53 AM Referred By: Electronically Signed By: ESTEFANI ALEXANDER MD Transcribed By: MUS Signed By Estefani Alexander Jr, [place] 0558 Normal The Pending [facility] Influenza virus B Ag [Presen ce] in Upper respiratory specimen by Rapid immunoassayon 03-05-2024 FLUBV Ag IA.rapid Ql (Nph) Negative [facility] No Panel Informationon 03-05 Influenza Type A (Rapid) Negative [facility] POC SARS CoV-2 Antigen Negative [facility] Troponin I.cardiac High sens itivity method [Mass/Vol]on 02-14-2024 1 HOUR TROP I, HIGH SENSITIVITY 3 ng/L Normal <16 [facility] Comment on above: Performed By: #### 8 9579-7 ####[facility] ([id number])[address] [place] [address] CBC AND AUTO DIFFon 02-13-20 24 ABSOLUTE BASOPHIL 0.0 X10E9/L Normal 0.0-0.2 [facility] Comment on above: Performed By: #### 2 106-3 #### [facility] ([id number]) [address] [place] [address] ABSOLUTE NEUTROPHIL 7.5 X10E9/L High 1.5-6.6 [facility] Comment on above: Performed By: #### 2 106-3 #### [facility] ([id number]) [address] [place] [address] Basophils/100 WBC (Bld) 0.3 % Normal [facility] Comment on above: Performed By: #### 2 106-3 #### [facility] ([id number]) [address] [place] [address] Eosinophils (Bld) [#/Vol] 0.1 10*3/uL Normal 0.0-0.4 [facility] Comment on above: Performed By: #### 2 106-3 #### [facility] ([id number]) [address] [place] [address] Eosinophils/100 WBC (Bld) 0.8 % Normal [facility] Comment on above: Performed By: #### 2 106-3 #### [facility] ([id number]) [address] [place] [address] Erythrocyte distribution width (RBC) [Ratio] 13.7 % Normal 11.5-15.0 [facility] Comment on above: Performed By: #### 2 106-3 #### [facility] ([id number]) [address] [place] [address] Hematocrit (Bld) [Volume fraction] 35.8 % Normal 35-47 [facility] Comment on above: Performed By: #### 2 106-3 #### [facility] ([id number]) [address] [place] [address] 75284 Hemoglobin (Bld) [Mass/Vol] 12.5 g/dL Normal 11.7-15.5 [facility] Comment on above: Performed By: #### 2 106-3 #### [facility] ([id number]) [address] [place] [address] 82553 Lymphocytes (Bld) [#/Vol] 3.4 10*3/uL Normal 1.0-3.5 [facility] Comment on above: Performed By: #### 2 106-3 #### [facility] ([id number]) [address] [place] [address] 55134 Lymphocytes/100 WBC (Bld) 29.4 % Normal [facility] Comment on above: Performed By: #### 2 106-3 #### [facility] ([id number]) [address] [place] [address] 88702 MCH (RBC) [Entitic mass] 29.8 pg Normal 27-34 [facility] Comment on above: Performed By: #### 2 106-3 #### [facility] ([id number]) [address] [place] [address] 16019 MCHC (RBC) [Mass/Vol] 35.0 g/dL Normal 32-36 [facility] Comment on above: Performed By: #### 2 106-3 #### [facility] ([id number]) [address] [place] [address] 82450 MCV (RBC) [Entitic vol] 85 fL Normal 80-100 [facility] Comment on above: Performed By: #### 2 106-3 #### [facility] ([id number]) [address] [place] [address] 78071 Monocytes (Bld) [#/Vol] 0.6 10*3/uL Normal 0-0.9 [facility] Comment on above: Performed By: #### 2 106-3 #### [facility] ([id number]) [address] [place] [address] 19013 Monocytes/100 WBC (Bld) 4.8 % Normal [facility] Comment on above: Performed By: #### 2 106-3 #### [facility] ([id number]) [address] [place] [address] 31800 Neutrophils/100 WBC (Bld) 64.7 % Normal [facility] Comment on above: Performed By: #### 2 106-3 #### [facility] ([id number]) [address] [place] [address] 82934 Platelet mean volume (Bld) [Entitic vol] 6.6 fL Low 7-12 [facility] Comment on above: Performed By: #### 2 106-3 #### [facility] ([id number]) [address] [place] [address] 41624 Platelets (Bld) [#/Vol] 377 10*3/uL Normal 150-450 [facility] Comment on above: Performed By: #### 2 106-3 #### [facility] ([id number]) [address] [place] [address] 79860 RBC COUNT 4.21 X10E12/L Normal 3.80-5.20 [facility] Comment on above: Performed By: #### 2 106-3 #### [facility] ([id number]) [address] [place] [address] 04500 WBC (Bld) [#/Vol] 11.6 10*3/uL High 4.0-11.0 [facility] Comment on above: Performed By: #### 2 106-3 #### [facility] ([id number]) [address] [place] [address] 66957 COMPREHENSIVE METABOLIC PANE Kit 02-13-2024 Albumin [Mass/Vol] 4.1 g/dL Normal 3.2-5.3 [facility] Comment on above: Performed By: #### 2 106-3 #### [facility] ([id number]) [address] [place] [address] 95431 ALP [Catalytic activity/Vol] 158 U/L High 39-130 [facility] Comment on above: Performed By: #### 2 106-3 #### [facility] ([id number]) [address] [place] [address] 62674 ALT [Catalytic activity/Vol] 46 U/L High 0-31 [facility] Comment on above: Performed By: #### 2 106-3 #### [facility] ([id number]) [address] [place] [address] 43968 Anion gap [Moles/Vol] 7 mmol/L Normal 5-15 [facility] Comment on above: Performed By: #### 2 106-3 #### [facility] ([id number]) [address] [place] [address] 47951 AST [Catalytic activity/Vol] 28 U/L Normal 0-41 [facility] Comment on above: Performed By: #### 2 106-3 #### [facility] ([id number]) [address] [place] [address] 21996 Bilirubin [Mass/Vol] 0.5 mg/dL Normal 0.3-1.2 [facility] Comment on above: Performed By: #### 2 106-3 #### [facility] ([id number]) [address] [place] [address] 94731 Calcium [Mass/Vol] 9.0 mg/dL Normal 8.5-10.5 [facility] Comment on above: Performed By: #### 2 106-3 #### [facility] ([id number]) [address] [place] [address] 74678 Chloride [Moles/Vol] 106 mmol/L Normal 98-109 [facility] Comment on above: Performed By: #### 2 106-3 #### [facility] ([id number]) [address] [place] [address] 21003 CO2 [Moles/Vol] 24 mmol/L Normal 22-32 [facility] Comment on above: Performed By: #### 2 106-3 #### [facility] ([id number]) [address] [place] [address] 77043 Creatinine [Mass/Vol] 0.63 mg/dL Normal 0.40-1.00 [facility] Comment on above: Result Comment: METH OD TRACEABLE TO IDMS STANDARD Performed By: #### 2 106-3 #### [facility] ([id number]) [address] [place] [address] 53766 eGFR (CKD-EPI) NON-RACE DEPENDENT >90 Normal >59 [facility] Comment on above: Result Comment: Reported eGFR is based on the CKD-EPI 2020 equation that does not use a race coefficient. Performed By: #### 2 106-3 #### [facility] ([id number]) [address] [place] [address] 92060 Glucose [Mass/Vol] 98 mg/dL Normal 65-99 [facility] Comment on above: Performed By: #### 2 106-3 #### [facility] ([id number]) [address] [place] [address] 29897 Potassium [Moles/Vol] 3.1 mmol/L Low 3.5-5.0 [facility] Comment on above: Performed By: #### 2 106-3 #### [facility] ([id number]) [address] [place] [address] 54251 Protein [Mass/Vol] 8.0 g/dL Normal 6.0-8.0 [facility] Comment on above: Performed By: #### 2 106-3 #### [facility] ([id number]) [address] [place] [address] 79264 Sodium [Moles/Vol] 137 mmol/L Normal 134-146 [facility] Comment on above: Performed By: #### 2 106-3 #### [facility] ([id number]) [address] [place] [address] 61713 Urea nitrogen [Mass/Vol] 7 mg/dL Normal 5-23 [facility] Comment on above: Performed By: #### 2 106-3 #### [facility] ([id number]) [address] [place] [address] 06964 HCG ( test) Ql (U)o n 02-13-2024 Beta HCG ( test) Ql (U) Negative Normal NEG [facility] Comment on above: Performed By: #### 2 106-3 #### [facility] ([id number]) [address] [place] [address] 43501 MAGNESIUMon 02-13-2024 Magnesium [Mass/Vol] 1.9 mg/dL Normal 1.8-2.6 [facility] Comment on above: Performed By: #### 2 106-3 #### [facility] ([id number]) [address] [place] [address] 18213 Troponin I.cardiac High sens itivity method [Mass/Vol]on 02-13-2024 TROPONIN I, HIGH SENSITIVITY 3 ng/L Normal <16 [facility] Comment on above: Performed By: #### 2 106-3 #### [facility] ([id number]) [address] [place] [address] 96939 URN MACROSCOPIC NURon 2023 BILIRUBIN BETHANY Negative Normal NEG [facility] Comment on above: Performed By: #### 2 106-3 #### [facility] ([id number]) [address] [place] [address] 48162 BLOOD/HGB BETHANY Negative Normal NEG [facility] Comment on above: Performed By: #### 2 106-3 #### [facility] ([id number]) [address] [place] [address] 99671 GLUCOSE BETH[place] Negative Normal NEG [facility] Comment on above: Performed By: #### 2 106-3 #### [facility] ([id number]) [address] [place] [address] 41275 KETONES BETHANY Negative Normal NEG [facility] Comment on above: Performed By: #### 2 106-3 #### [facility] ([id number]) [address] [place] [address] 70698 LEUKOCYTE ESTERASE BETHANY Negative Normal NEG Pr [facility] Comment on above: Performed By: #### 2 106-3 #### [facility] ([id number]) [address] [place] [address] 65256 NITRITE BETH[place] Negative Normal NEG [facility] Comment on above: Performed By: #### 2 106-3 #### [facility] ([id number]) [address] [place] [address] 86226 PH BETHANY 6.5 Normal 5.0-8.5 [facility] Comment on above: Performed By: #### 2 106-3 #### [facility] ([id number]) [address] [place] [address] 78907 PROTEIN BETH[place] Negative Normal NEG [facility] Comment on above: Performed By: #### 2 106-3 #### [facility] ([id number]) [address] [place] [address] 63195 SPECIFIC GRAVITY BETHANY 1.015 Normal 1.003-[address] [place] [address] Comment on above: Performed By: #### 2 106-3 #### [facility] ([id number]) [address] [place] [address] 08032 UROBILINOGEN BETHANY 0.2 eu/dL Normal <1.1 [facility] Comment on above: Performed By: #### 2 106-3 #### [facility] ([id number]) [address] [place] [address] 41725 XR CHEST 2 VWSon 02-13-2024 XR CHEST 2 VWS XR CHEST 2 VWS Chest 2 views History: Difficulty breathing SOB Comparison: 11/25/2023 Findings: Chest 2 views. Stable cardiomediastinal silhouette. No focal opacity, effusion or pneumothorax. Impression: No evident acute cardiopulmonary process. Finalized by Jennifer Howe MD on 02/13/2024 11:22 PM Normal [facility] BASIC METABOLIC PANLon 12-28 Anion gap [Moles/Vol] 4 mmol/L Low 5-15 [facility] Comment on above: Performed By: #### 2 106-3 #### [facility] ([id number]) [address] [place] [address] 33706 Calcium [Mass/Vol] 8.4 mg/dL Low 8.5-10.5 [facility] Comment on above: Performed By: #### 2 106-3 #### [facility] ([id number]) [address] [place] [address] 31885 Chloride [Moles/Vol] 106 mmol/L Normal 98-109 [facility] Comment on above: Performed By: #### 2 106-3 #### [facility] ([id number]) [address] [place] [address] 10258 CO2 [Moles/Vol] 24 mmol/L Normal 22-32 [facility] Comment on above: Performed By: #### 2 106-3 #### [facility] ([id number]) [address] [place] [address] 57545 Creatinine [Mass/Vol] 0.65 mg/dL Normal 0.40-1.00 [facility] Comment on above: Result Comment: METH OD TRACEABLE TO IDMS STANDARD Performed By: #### 2 106-3 #### [facility] ([id number]) [address] [place] [address] 58870 eGFR (CKD-EPI) NON-RACE DEPENDENT >90 Normal >59 [facility] Comment on above: Result Comment: Reported eGFR is based on the CKD-EPI 2020 equation that does not use a race coefficient. Performed By: #### 2 106-3 #### [facility] ([id number]) [address] [place] [address] 45959 Glucose [Mass/Vol] 101 mg/dL High 65-99 [facility] Comment on above: Performed By: #### 2 106-3 #### [facility] ([id number]) [address] [place] [address] 58168 Potassium [Moles/Vol] 3.8 mmol/L Normal 3.5-5.0 [facility] Comment on above: Performed By: #### 2 106-3 #### [facility] ([id number]) [address] [place] [address] 52203 Sodium [Moles/Vol] 134 mmol/L Normal 134-146 [facility] Comment on above: Performed By: #### 2 106-3 #### [facility] ([id number]) [address] [place] [address] 42617 Urea nitrogen [Mass/Vol] 12 mg/dL Normal 5-23 [facility] Comment on above: Performed By: #### 2 106-3 #### [facility] ([id number]) [address] [place] [address] 78668 CBC AND AUTO DIFFon 12-29-19 24 ABSOLUTE BASOPHIL 0.1 X10E9/L Normal 0.0-0.2 [facility] Comment on above: Performed By: #### 2 106-3 #### [facility] ([id number]) [address] [place] [address] 24328 ABSOLUTE NEUTROPHIL 6.1 X10E9/L Normal 1.5-6.6 [facility] Comment on above: Performed By: #### 2 106-3 #### [facility] ([id number]) [address] [place] [address] 81758 Basophils/100 WBC (Bld) 0.7 % Normal [facility] Comment on above: Performed By: #### 2 106-3 #### [facility] ([id number]) [address] [place] [address] 27157 Eosinophils (Bld) [#/Vol] 0.2 10*3/uL Normal 0.0-0.4 [facility] Comment on above: Performed By: #### 2 106-3 #### [facility] ([id number]) [address] [place] [address] 27038 Eosinophils/100 WBC (Bld) 1.9 % Normal [facility] Comment on above: Performed By: #### 2 106-3 #### [facility] ([id number]) [address] [place] [address] 84349 Erythrocyte distribution width (RBC) [Ratio] 13.6 % Normal 11.5-15.0 [facility] Comment on above: Performed By: #### 2 106-3 #### [facility] ([id number]) [address] [place] [address] 47120 Hematocrit (Bld) [Volume fraction] 33.7 % Low 35-47 [facility] Comment on above: Performed By: #### 2 106-3 #### [facility] ([id number]) [address] [place] [address] 02175 Hemoglobin (Bld) [Mass/Vol] 11.7 g/dL Normal 11.7-15.5 [facility] Comment on above: Performed By: #### 2 106-3 #### [facility] ([id number]) [address] [place] [address] 86773 Lymphocytes (Bld) [#/Vol] 3.0 10*3/uL Normal 1.0-3.5 [facility] Comment on above: Performed By: #### 2 106-3 #### [facility] ([id number]) [address] [place] [address] 04528 Lymphocytes/100 WBC (Bld) 29.8 % Normal [facility] Comment on above: Performed By: #### 2 106-3 #### [facility] ([id number]) [address] [place] [address] 55144 MCH (RBC) [Entitic mass] 29.2 pg Normal 27-34 [facility] Comment on above: Performed By: #### 2 106-3 #### [facility] ([id number]) [address] [place] [address] 55512 MCHC (RBC) [Mass/Vol] 34.6 g/dL Normal 32-36 [facility] Comment on above: Performed By: #### 2 106-3 #### [facility] ([id number]) [address] [place] [address] 64027 MCV (RBC) [Entitic vol] 84 fL Normal 80-100 [facility] Comment on above: Performed By: #### 2 106-3 #### [facility] ([id number]) [address] [place] [address] 18383 Monocytes (Bld) [#/Vol] 0.6 10*3/uL Normal 0-0.9 [facility] Comment on above: Performed By: #### 2 106-3 #### [facility] ([id number]) [address] [place] [address] 93943 Monocytes/100 WBC (Bld) 6.5 % Normal [facility] Comment on above: Performed By: #### 2 106-3 #### [facility] ([id number]) [address] [place] [address] 23012 Neutrophils/100 WBC (Bld) 61.1 % Normal [facility] Comment on above: Performed By: #### 2 106-3 #### [facility] ([id number]) [address] [place] [address] 94373 Platelet mean volume (Bld) [Entitic vol] 6.8 fL Low 7-12 [facility] Comment on above: Performed By: #### 2 106-3 #### [facility] ([id number]) [address] [place] [address] 99517 Platelets (Bld) [#/Vol] 307 10*3/uL Normal 150-450 [facility] Comment on above: Performed By: #### 2 106-3 #### [facility] ([id number]) [address] [place] [address] 07163 RBC COUNT 4.00 X10E12/L Normal 3.80-5.20 [facility] Comment on above: Performed By: #### 2 106-3 #### [facility] ([id number]) [address] [place] [address] 07675 WBC (Bld) [#/Vol] 10.0 10*3/uL Normal 4.0-11.0 [facility] Comment on above: Performed By: #### 2 106-3 #### [facility] ([id number]) [address] [place] [address] 15289 MAGNESIUMon 12-29-2023 Magnesium [Mass/Vol] 2.0 mg/dL Normal 1.8-2.6 [facility] Comment on above: Performed By: #### 2 106-3 #### [facility] ([id number]) [address] [place] [address] 92088 HCG ( test) Ql (U)o n 12-11-2023 Beta HCG ( test) Ql (U) Negative Normal NEG [facility] Comment on above: Performed By: #### 2 106-3 #### [facility] ([id number]) [address] [place] [address] [place] [address] URN MACROSCOPIC NURon 2023 BILIRUBIN BETHANY Negative Normal NEG [facility] Comment on above: Performed By: #### N UM #### [facility] ([id number]) [address] [place] [address] [place] [address] BLOOD/HGB BETHANY Negative Normal NEG [facility] Comment on above: Performed By: #### N UM #### [facility] ([id number]) [address] [place] [address] [place] [address] GLUCOSE [place] Negative Normal NEG [facility] Comment on above: Performed By: #### N UM #### [facility] ([id number]) [address] [place] [address] [place] [address] KETONES [place] Negative Normal NEG [facility] Comment on above: Performed By: #### N UM #### [facility] ([id number]) [address] [place] [address] [place] [address] LEUKOCYTE ESTERASE BETH[place] Negative Normal NEG Pr [facility] Comment on above: Performed By: #### N UM #### [facility] ([id number]) [address] [place] [address] [place] [address] NITRITE [place] Negative Normal NEG [facility] Comment on above: Performed By: #### N UM #### [facility] ([id number]) [address] [place] [address] [place] [address] PH BETHANY 6.0 Normal 5.0-8.5 [facility] Comment on above: Performed By: #### N UM #### [facility] ([id number]) [address] [place] [address] [place] [address] PROTEIN B[place] Negative Normal NEG [facility] Comment on above: Performed By: #### N UM #### [facility] ([id number]) [address] [place] [address] 79644 SPECIFIC GRAVITY BETHANY 1.015 Normal 1.003-1 .03 5 [facility] Comment on above: Performed By: #### N UM #### [facility] ([id number]) [address] [place] [address] 39412 UROBILINOGEN BETHANY 0.2 eu/dL Normal <1.1 [facility] Comment on above: Performed By: #### N UM #### [facility] ([id number]) [address] [place] [address] 21744 BASIC METABOLIC PANLon 11-24 Anion gap [Moles/Vol] 13 mmol/L Normal 5-15 [facility] Comment on above: Performed By: #### B MP #### [facility] ([id number]) [address] [place] [address] 57012 Calcium [Mass/Vol] 9.0 mg/dL Normal 8.5-10.5 [facility] Comment on above: Performed By: #### B MP #### [facility] ([id number]) [address] [place] [address] 86133 Chloride [Moles/Vol] 103 mmol/L Normal 98-109 [facility] Comment on above: Performed By: #### B MP #### [facility] ([id number]) [address] [place] [address] 71468 CO2 [Moles/Vol] 20 mmol/L Low 22-32 [facility] Comment on above: Performed By: #### B MP #### [facility] ([id number]) [address] [place] [address] 92250 Creatinine [Mass/Vol] 0.69 mg/dL Normal 0.40-1.00 [facility] Comment on above: Result Comment: METH OD TRACEABLE TO IDMS STANDARD Performed By: #### B MP #### [facility] ([id number]) [address] [place] [address] [place] [address] eGFR (CKD-EPI) NON-RACE DEPENDENT >90 Normal >59 [facility] Comment on above: Result Comment: Reported eGFR is based on the CKD-EPI 2020 equation that does not use a race coefficient. Performed By: #### B MP #### [facility] ([id number]) [address] [place] [address] 31209 Glucose [Mass/Vol] 95 mg/dL Normal 65-99 [facility] Comment on above: Performed By: #### B MP #### [facility] ([id number]) [address] [place] [address] 84046 Potassium [Moles/Vol] 2.9 mmol/L Low 3.5-5.0 [facility] Comment on above: Performed By: #### B MP #### [facility] ([id number]) [address] [place] [address] 70992 Sodium [Moles/Vol] 136 mmol/L Normal 134-146 [facility] Comment on above: Performed By: #### B MP #### [facility] ([id number]) [address] [place] [address] 62927 Urea nitrogen [Mass/Vol] 7 mg/dL Normal 5-23 [facility] Comment on above: Performed By: #### B MP #### [facility] ([id number]) [address] [place] [address] [place] [address] SARS/FLU A+B/RSV by NAAT/Mol replaced by [facility] ansonon 11-25-2023 SARS/FLU A+B/RSV by NAAT/Molecular FLU A [...] operators who are performing tests using either [employer] or [employer] systems and is limited to laboratories that [...] repeat. Fact Sheet for Healthcare Providers: https://www.fda.gov/media /412093/download Fact Sheet for Patients: https://www.fda.gov/media /669081/download Normal [facility] Comment on above: Performed By: #### C OVFLR #### [facility] ([id number]) [address] [place] [address], [place] [address] XR FOOT LT MIN 3 VWSon 09-21 [...] Loya MD on 09/22/2023 12:07 AM Normal [facility] XR SPINE LUMBAR 2 OR 3 [...] of the lumbar spine. Finalized by Ghada Loay MD on 09/22/2023 12:10 AM Normal [facility] XR TIBIA FIBULA LT MIN 2 [...] Loya MD on 09/22/2023 12:09 AM Normal [facility] HCG ( test) Ql (U)o n 09-21-2023 Beta HCG ( test) Ql (U) Negative Normal NEG [facility] Comment on above: Performed By: #### 2 106-3 #### [facility] ([id number]) [address] [place] [address], [place] [address] SARS/FLU A+B/RSV by NAAT/Mol ecularon 07-09-2023 SARS/FLU [...] operators who are performing tests using either [employer] or [employer] systems and is limited to laboratories that [...] repeat. Fact Sheet for Healthcare Providers: https://www.fda.gov/media /058316/download Fact Sheet for Patients: https://www.fda.gov/media /666918/download Normal [facility] Comment on above: Performed By: #### C OVFLR #### [facility] ([id number]) [address] [facility] [place] [place] [address] Provider Letteron 02-25-2023 Provider Letter (Inserted Image. Swapna ble to display) February 25, 2023 [place] [address] : 1995 Dear Jennifer , We have been trying to reach you with no success. It is important that you return our call regarding your referral to our office by Jennifer upon receiving this letter. Also, at the time of your call, please provide us with your current information. Thank you for your prompt attention to this matter. Sincerely, [facility] [phone] Normal [facility] Physician Referralon 023 Physician Referral [phone] [id number] Normal [facility] Urinalysis - AUTOMATEDon Appearance (U) cloudy [employer] Other Bilirubin Ql (U) Negative [email or web address] Other Color (U) yellow [employer] Other Glucose Ql (U) Negative [employer] Other Hemoglobin Ql (U) Trace-intact [employer] Other Ketones Ql (U) Negative [employer] Other Leukocyte esterase Test strip Ql (U) Trace [employer] Other Nitrite Ql (U) Negative [employer] Other pH (U) 6.0 [pH] [employer] Other Protein Ql (U) Negative [employer] Other Specific gravity (U) [Rel density] <=1.005 [employer] Other Urobilinogen (U) [Mass/Vol] 0.2 mg/dL [employer] Other Urinalysis - AUTOMATED [facility] [employer] Other Quick Strepon 04-26-2022 S. pyogenes Org specific cx Ql (Throat) Negative [facility] [employer] Other Quick Strep [facility] [employer] Other SARS-CoV-2 (COVID-19) RNA NA A+probe Ql (Resp)on 04-23-2022 SARS-CoV-2 (COVID-19) RNA EMMANUELLE+probe Ql (Unsp spec) Negative [facility] [employer] Other Covid-19 PCR (CVDTBH)on 03-16 SARS-CoV-2 (COVID-19) RNA EMMANUELLE+probe Ql (Unsp spec) Not detected Normal NOT DETECTED [facility] Comment on above: Result Comment: This test is not yet approved or cleared by the [place] FDA. When there are no FDA-approved or cleared tests available, and other criteria are met, FDA can make tests available under an emergency access mechanism called an Emergency Use Authorization (EUA). The EUA for this test is supported by the [place] of Health and Human Service's (HHS's) declaration [...] SARS-CoV-2. Performed By: #### C BC #### [facility] [address] [place] [address] Dr. Katrin Ceja SARS-CoV-2 (COVID-19) RNA NA A+probe Ql (Resp)on 03-27-2022 SARS-CoV-2 (COVID-19) RNA EMMANUELLE+probe Ql (Unsp spec) Negative [employer] Other CBC AUTO DIFFon 03-22-2022 BASO # 0.0 103/ul Normal 0.0-0.1 [facility] Comment on above: Performed By: #### L IPID, CMP #### [facility] [address] [place] [address] Dr. Katrin Ceja Basophils/100 WBC (Bld) 0.3 % Normal 0.2-2.0 [facility] Comment on above: Performed By: #### L IPID, CMP #### [facility] [address] [place] [address] Dr. Katrin Ceja EO # 0.2 103/ul Normal 0.0-0.7 [facility] Comment on above: Performed By: #### L IPID, CMP #### [facility] [address] [place] [address] Dr. Katrin Ceja Eosinophils/100 WBC (Bld) 2.2 % Normal 0.9-7.0 [facility] Comment on above: Performed By: #### L IPID, CMP #### [facility] [address] [place] [address] Dr. Katrin Ceja Erythrocyte distribution width (RBC) [Ratio] 11.9 % Normal 11.0-15.0 [facility] Comment on above: Performed By: #### L IPID, CMP #### [facility] [address] [place] [address] Dr. Katrin Ceja Hematocrit (Bld) [Volume fraction] 36.4 % Normal 36.0-48.0 [facility] Comment on above: Performed By: #### L IPID, CMP #### [facility] [address] [place] [address] Dr. Katrin Ceja Hemoglobin (Bld) [Mass/Vol] 12.6 g/dL Normal 12.0-16.0 [facility] Comment on above: Performed By: #### L IPID, CMP #### [facility] [address] [place] [address] Dr. Katrin Ceja IG # 0.03 10e3/ul Normal 0.00-0.03 [facility] Comment on above: Performed By: #### L IPID, CMP #### [facility] [address] [address] [address] Katrin Ceja IG % 0.3 % Normal 0.0-0.5 [facility] Comment on above: Performed By: #### L IPID, CMP #### [facility] [address] [address] [address] Katrin Ceja LYMPH # 3.5 103/ul Normal 1.2-3.8 [facility] Comment on above: Performed By: #### L IPID, CMP #### [facility] [address] [address] [address] Katrin Ceja Lymphocytes/100 WBC (Bld) 33.1 % Normal 20.5-60.0 [facility] Comment on above: Performed By: #### L IPID, CMP #### [facility] [address] [address] [address] Katrin Ceja MANUAL DIFF REQ NO Normal [facility] Comment on above: Performed By: #### L IPID, CMP #### [facility] [address] [address] [address] Katrin Ceja MCH (RBC) [Entitic mass] 29.9 pg Normal 26.7-34.0 [facility] Comment on above: Performed By: #### L IPID, CMP #### [facility] [address] [address] [address] Katrin Ceja MCHC (RBC) [Mass/Vol] 34.6 g/dL Normal 29.9-35.2 [facility] Comment on above: Performed By: #### L IPID, CMP #### [facility] [address] [address] [address] Katrin Ceja MCV (RBC) [Entitic vol] 86.5 fL Normal 81.0-99.0 [facility] Comment on above: Performed By: #### L IPID, CMP #### [facility] [address] [address] [address] Katrin Ceja MONO # 0.7 103/ul Normal 0.3-0.8 [facility] Comment on above: Performed By: #### L IPID, CMP #### [facility] [address] [place] [address] Dr. Katrin Ceja Monocytes/100 WBC (Bld) 6.5 % Normal 1.7-12.0 [facility] Comment on above: Performed By: #### L IPID, CMP #### [facility] [address] [place] [address] Dr. Katrin Ceja NEUT # 6.0 103/ul Normal 1.4-6.5 [facility] Comment on above: Performed By: #### L IPID, CMP #### [facility] [address] [place] [address] Dr. Katrin Ceja Neutrophils/100 WBC (Bld) 57.6 % Normal 43.0-75.0 [facility] Comment on above: Performed By: #### L IPID, CMP #### [facility] [address] [place] [address] Dr. Katrin Ceja Platelet mean volume (Bld) [Entitic vol] 8.7 fL Critically low 9.5-13.5 [facility] Comment on above: Performed By: #### L IPID, CMP #### [facility] [address] [place] [address] Dr. Katrin Ceja PLT 282 103/ul Normal 150-450 [facility] Comment on above: Performed By: #### L IPID, CMP #### [facility] [address] [place] [address] Dr. Katrin Ceja RBC 4.21 106/ul Normal 4.20-5.40 [facility] Comment on above: Performed By: #### L IPID, CMP #### [facility] [address] [place] [address] Dr. Katrin Ceja WBC 10.5 103/ul Normal 4.0-11.0 [facility] Comment on above: Performed By: #### L IPID, CMP #### [facility] [address] [place] [address] Dr. Katrin Ceja ER URINE PROFILEon 2 Bilirubin Ql (U) Negative Normal NEGATIVE [facility] Comment on above: Performed By: #### L IPID, CMP #### [facility] [address] [place] [address] Dr. Katrin Ceja Clarity (U) CLEAR Normal CLEAR [facility] Comment on above: Performed By: #### L IPID, CMP #### [facility] [address] [address] [address] Katrin Ceja Color (U) LT. YELLOW Normal YELLOW [facility] Comment on above: Performed By: #### L IPID, CMP #### [facility] [address] [place] [address] Dr. Katrin Ceja ERUAHD A micrscopic examina tion will be performed if indicated. Normal [facility] Comment on above: Performed By: #### L IPID, CMP #### [facility] [address] [place] [address] Dr. Katrin Ceja Glucose Ql (U) Negative Normal NEGATIVE [facility] Comment on above: Performed By: #### L IPID, CMP #### [facility] [address] [place] [address] Dr. Katrin Ceja Hemoglobin Ql (U) Negative Normal NEGATIVE [facility] Comment on above: Performed By: #### L IPID, CMP #### [facility] [address] [place] [address] Dr. Katrin Ceja Ketones Ql (U) Negative Normal NEGATIVE [facility] Comment on above: Performed By: #### L IPID, CMP #### [facility] [address] [place] [address] Dr. Katrin Ceja LEUKOCYTES Negative Normal NEGATIVE [facility] Comment on above: Performed By: #### L IPID, CMP #### [facility] [address] [place] [address] Dr. Katrin Ceja Nitrite Ql (U) Negative Normal NEGATIVE [facility] Comment on above: Performed By: #### L IPID, CMP #### [facility] [address] [place] [address] Dr. Katrin Ceja pH (U) 6.0 [pH] Normal 5-9 [facility] Comment on above: Performed By: #### L IPID, CMP #### [facility] [address] [place] [address] Dr. Katrin Ceja SPEC GRAVITY 1.015 Normal 1.005-<=1. 025 [facility] Comment on above: Performed By: #### L IPID, CMP #### [facility] [address] [place] [address] Dr. Katrin Ceja UA PROTEIN Negative Normal NEGATIVE/ TRACE [facility] Comment on above: Performed By: #### L IPID, CMP #### [facility] [address] [place] [address] Dr. Katrin Ceja UR MICRO IND NOT INDICATED Normal [facility] Comment on above: Performed By: #### L IPID, CMP #### [facility] [address] [place] [address] Dr. Katrin Ceja Urobilinogen Qn (U) 0.2 {Jeannie'U}/dL Normal 0.2 - 1. 0 [facility] Comment on above: Performed By: #### L IPID, CMP #### [facility] [address] [place] [address] Dr. Katrin Ceja LIPASEon 03-22-2022 Lipase [Catalytic activity/Vol] 84.0 U/L Normal 73.0-393.0 [facility] Comment on above: Performed By: #### H STROPN, CMP, LIPA #### [facility] [address] [place] [address] Dr. Katrin Ceja URon 03-22-2022 , QUAL Negative Normal NEGATIVE [facility] Comment on above: Performed By: #### L IPID, CMP #### [facility] [address] [place] [address] Dr. Katrin Ceja PROF 14(COMP METB)on 022 Albumin [Mass/Vol] 3.2 g/dL Critically low 3.4-5.0 [facility] Comment on above: Performed By: #### H STROPN, CMP, LIPA #### [facility] [address] [address] [address] Katrin Ceja Albumin/Globulin [Mass ratio] 0.8 {ratio} Normal [facility] Comment on above: Performed By: #### H STROPN, CMP, LIPA #### [facility] [address] [address] [address] Katrin Ceja ALP [Catalytic activity/Vol] 189 U/L Critically high 46-116 [facility] Comment on above: Performed By: #### H STROPN, CMP, LIPA #### [facility] [address] [address] [address] Katrin Ceja ALT [Catalytic activity/Vol] 31 U/L Normal 14-59 [facility] Comment on above: Performed By: #### H STROPN, CMP, LIPA #### [facility] [address] [address] [address] Katrin Ceja Anion gap [Moles/Vol] 9.9 mmol/L Normal [facility] Comment on above: Performed By: #### H STROPN, CMP, LIPA #### [facility] [address] [address] [address] Katrin Ceja AST [Catalytic activity/Vol] 17 U/L Normal 15-37 [facility] Comment on above: Performed By: #### H STROPN, CMP, LIPA #### [facility] [address] [address] [address] Katrin Ceja Bilirubin [Mass/Vol] 0.2 mg/dL Normal 0.2-1.0 [facility] Comment on above: Performed By: #### H STROPN, CMP, LIPA #### [facility] [address] [address] [address] Katrin Ceja Calcium [Mass/Vol] 8.7 mg/dL Normal 8.5-10.1 [facility] Comment on above: Performed By: #### H STROPN, CMP, LIPA #### [facility] [address] [address] [address] Katrin Ceja Chloride [Moles/Vol] 103 mmol/L Normal 98-107 [facility] Comment on above: Performed By: #### H STROPN, CMP, LIPA #### [facility] [address] [address] [address] Katrin Ceja CO2 [Moles/Vol] 25.4 mmol/L Normal 21.0-32.0 [facility] Comment on above: Performed By: #### H STROPN, CMP, LIPA #### [facility] [address] [address] [address] Katrin Ceja Creatinine [Mass/Vol] 0.71 mg/dL Normal 0.55-1.02 [facility] Comment on above: Performed By: #### H STROPN, CMP, LIPA #### [facility] [address] [address] [address] Katrin Ceja EGFR-AF NORWEGIAN >60 Normal >=60 [facility] Comment on above: Performed By: #### H STROPN, CMP, LIPA #### [facility] [address] [address] [address] Katrin Ceja EGFR-NON AF NORWEGIAN >60 Normal >=60 [facility] Comment on above: Performed By: #### H STROPN, CMP, LIPA #### [facility] [address] [place] [address] Dr. Katrin Ceja Globulin (S) [Mass/Vol] 4.0 g/dL Normal [facility] Comment on above: Performed By: #### H STROPN, CMP, LIPA #### [facility] [address] [address] [address] Katrin Ceja Glucose [Mass/Vol] 106 mg/dL Normal 74-106 [facility] Comment on above: Performed By: #### H STROPN, CMP, LIPA #### [facility] [address] [address] [address] Katrin Ceja Potassium [Moles/Vol] 3.3 mmol/L Critically low 3.5-5.1 [facility] Comment on above: Performed By: #### H STROPN, CMP, LIPA #### [facility] [address] [address] [address] Katrin Ceja Protein [Mass/Vol] 7.2 g/dL Normal 6.4-8.2 [facility] Comment on above: Performed By: #### H STROPN, CMP, LIPA #### [facility] [address] [address] [address] Katrin Ceja Sodium [Moles/Vol] 135 mmol/L Critically low 136-145 [facility] Comment on above: Performed By: #### H STROPN, CMP, LIPA #### [facility] [address] [address] [address] Katrin Ceja Urea nitrogen [Mass/Vol] 5.0 mg/dL Critically low 7.0-18.0 [facility] Comment on above: Performed By: #### H STROPN, CMP, LIPA #### [facility] [address] [address] [address] Katrin Ceja Urea nitrogen/Creatinine [Mass ratio] 7.0 mg/mg Normal [facility] Comment on above: Performed By: #### H STROPN, CMP, LIPA #### [facility] [address] [address] [address] Katrin Ceja TROPONIN, HIGH SENSITIVITYon 03-22-2022 HSTROP <4.0 Normal 4.0-51.3 [facility] Comment on above: Result Comment: CUT- OFF POINTS HAVE BEEN ESTABLISHED BASED ON THE FOURTH UNIVERSAL DEFINITIONS OF MYOCARDIAL INFARCTION. THE UPPER REFERENCE LIMIT (URL) OF TROPONIN, DEFINED THE 99TH PERCENTILE OF cTnI DISTRIBUTION IN A REFERENCE POPULATION, HAS BEEN CONFIRMED THE DECISION THRESHOLD FOR GA DIAGNOSIS. Performed By: #### H STROPN, CMP, LIPA #### [facility] [address] [place] [address] Dr. Katrin Ceja XR ABD FLAT UP_PA [...] GERI LASSITER Date: 2022-03-22 01:53 Normal [facility] XR ANKLE LT MIN 3 Von 2021 XR ANKLE LT MIN 3 V EXAM: XR ANKLE LT GA N 3 V HISTORY: Ankle pain COMPARISON: None. TECHNIQUE: 3 views FINDINGS: No osseous lesion, fracture, dislocation or subluxation. Joint spaces are normal. Old posttraumatic ossifications adjacent to the tip of the lateral malleolus. No visualized effusion. No visualized soft tissue edema. IMPRESSION: Normal x-rays Electronically authenticated by: DANNI QUINONES Date: 2022-03-09 19:32 Normal [facility] CBC AUTO DIFFon 02-08-2022 BASO # 0.0 103/ul Normal 0.0-0.1 [facility] Comment on above: Performed By: #### C BC #### [facility] [address] [place] [address] Dr. Katrin Ceja Basophils/100 WBC (Bld) 0.3 % Normal 0.2-2.0 [facility] Comment on above: Performed By: #### C BC #### [facility] [address] [place] [address] Dr. Katrin Ceja EO # 0.3 103/ul Normal 0.0-0.7 [facility] Comment on above: Performed By: #### C BC #### [facility] [address] [address] [address] Katrin Ceja Eosinophils/100 WBC (Bld) 3.0 % Normal 0.9-7.0 [facility] Comment on above: Performed By: #### C BC #### [facility] [address] [place] [address] Dr. Katrin Ceja Erythrocyte distribution width (RBC) [Ratio] 12.2 % Normal 11.0-15.0 [facility] Comment on above: Performed By: #### C BC #### [facility] [address] [place] [address] Dr. Katrin Ceja Hematocrit (Bld) [Volume fraction] 33.8 % Critically low 36.0-48.0 [facility] Comment on above: Performed By: #### C BC #### [facility] [address] [place] [address] Dr. Katrin Ceja Hemoglobin (Bld) [Mass/Vol] 11.9 g/dL Critically low 12.0-16.0 [facility] Comment on above: Performed By: #### C BC #### [facility] [address] [place] [address] Dr. Katrin Ceja IG # 0.04 10e3/ul Critically high 0.00-0.03 [facility] Comment on above: Performed By: #### C BC #### [facility] [address] [place] [address] Dr. Katrin Ceja IG % 0.4 % Normal 0.0-0.5 [facility] Comment on above: Performed By: #### C BC #### [facility] [address] [place] [address] Dr. Katrin Ceja LYMPH # 3.0 103/ul Normal 1.2-3.8 [facility] Comment on above: Performed By: #### C BC #### [facility] [address] [place] [address] Dr. Katrin Ceja Lymphocytes/100 WBC (Bld) 28.4 % Normal 20.5-60.0 [facility] Comment on above: Performed By: #### C BC #### [facility] [address] [place] [address] Dr. Katrin Ceja MANUAL DIFF REQ NO Normal [facility] Comment on above: Performed By: #### C BC #### [facility] [address] [place] [address] Dr. Katrin Ceja MCH (RBC) [Entitic mass] 29.8 pg Normal 26.7-34.0 [facility] Comment on above: Performed By: #### C BC #### [facility] [address] [address] [address] Katrin Ceja MCHC (RBC) [Mass/Vol] 35.2 g/dL Normal 29.9-35.2 [facility] Comment on above: Performed By: #### C BC #### [facility] [address] [address] [address] Katrin Ceja MCV (RBC) [Entitic vol] 84.7 fL Normal 81.0-99.0 [facility] Comment on above: Performed By: #### C BC #### [facility] [address] [address] [address] Katrin Ceja MONO # 0.7 103/ul Normal 0.3-0.8 [facility] Comment on above: Performed By: #### C BC #### [facility] [address] [address] [address] Katrin Ceja Monocytes/100 WBC (Bld) 6.6 % Normal 1.7-12.0 [facility] Comment on above: Performed By: #### C BC #### [facility] [address] [address] [address] Katrin Ceja NEUT # 6.4 103/ul Normal 1.4-6.5 [facility] Comment on above: Performed By: #### C BC #### [facility] [address] [address] [address] Katrin Ceja Neutrophils/100 WBC (Bld) 61.3 % Normal 43.0-75.0 [facility] Comment on above: Performed By: #### C BC #### [facility] [address] [address] [address] Katrin Ceja Platelet mean volume (Bld) [Entitic vol] 8.9 fL Critically low 9.5-13.5 [facility] Comment on above: Performed By: #### C BC #### [facility] [address] [address] [address] Katrin Ceja PLT 299 103/ul Normal 150-450 [facility] Comment on above: Performed By: #### C BC #### [facility] [address] [address] [address] Katrin Ceja RBC 3.99 106/ul Critically low 4.20-5.40 [facility] Comment on above: Performed By: #### C BC #### [facility] [address] [place] [address] Dr. Katrin Ceja WBC 10.4 103/ul Normal 4.0-11.0 [facility] Comment on above: Performed By: #### C BC #### [facility] [address] [place] [address] Dr. Katrin Ceja D-DIMERon 02-08-2022 D-DIMER 0.59 mg/L FEU Normal <=0.59 [facility] Comment on above: Performed By: #### L IPID, CMP #### [facility] [address] [place] [address] Dr. Katrin Ceja D-DIMER COMMENTS SEE BELOW Normal [facility] Comment on above: Result Comment: Incr [...] Performed By: #### L IPID, CMP #### [facility] [address] [place] [address] Dr. Katrin Ceja PROF CHEM 8 (BAS METB)on Anion gap [Moles/Vol] 12.8 mmol/L Normal [facility] Comment on above: Performed By: #### C BC #### [facility] [address] [place] [address] Dr. Katrin Ceja Calcium [Mass/Vol] 8.7 mg/dL Normal 8.5-10.1 [facility] Comment on above: Performed By: #### C BC #### [facility] [address] [address] [address] Katrin Ceja Chloride [Moles/Vol] 102 mmol/L Normal 98-107 [facility] Comment on above: Performed By: #### C BC #### [facility] [address] [address] [address] Katrin Ceja CO2 [Moles/Vol] 25.9 mmol/L Normal 21.0-32.0 [facility] Comment on above: Performed By: #### C BC #### [facility] [address] [address] [address] Katrin Ceja Creatinine [Mass/Vol] 0.70 mg/dL Normal 0.55-1.02 [facility] Comment on above: Performed By: #### C BC #### [facility] [address] [address] [address] Katrin Ceja EGFR-AF NORWEGIAN >60 Normal >=60 [facility] Comment on above: Performed By: #### C BC #### [facility] [address] [address] [address] Katrin Ceja EGFR-NON AF NORWEGIAN >60 Normal >=60 [facility] Comment on above: Performed By: #### C BC #### [facility] [address] [address] [address] Katrin Ceja Glucose [Mass/Vol] 95 mg/dL Normal 74-106 [facility] Comment on above: Performed By: #### C BC #### [facility] [address] [address] [address] Katrin Ceja Potassium [Moles/Vol] 2.7 mmol/L Critically low 3.5-5.1 [facility] Comment on above: Result Comment: Test Repeated. Critical Value Verified Performed By: #### C BC #### [facility] [address] [place] [address] Dr. Katrin Ceja Sodium [Moles/Vol] 136 mmol/L Normal 136-145 [facility] Comment on above: Performed By: #### C BC #### [facility] [address] [place] [address] Dr. Katrin Ceja Urea nitrogen [Mass/Vol] 3.0 mg/dL Critically low 7.0-18.0 [facility] Comment on above: Performed By: #### C BC #### [facility] [address] [address] [address] Katrin Ceja Urea nitrogen/Creatinine [Mass ratio] 4.3 mg/mg Normal [facility] Comment on above: Performed By: #### C BC #### [facility] [address] [address] [address] Katrin Ceja XR CHEST 2 Von [...] by: RIVER SAID Date: 2022-02-08 04:19 Normal [facility] LIPID PROFILEon 12-18-2021 CHOL-HDL RATIO NORM SEE BELOW Normal [facility] Comment on above: Result Comment: 3.3 - 4.4 LOW RISK 4.4 - 7.1 AVERAGE RISK 7.1 - 11.0 MODERATE RISK >11.0 HIGH RISK Performed By: #### L IPID, LIVER #### [facility] [address] [place] [address] Dr. Katrin Ceja Cholesterol [Mass/Vol] 126 mg/dL Normal <=200 [facility] Comment on above: Performed By: #### L IPID, LIVER #### [facility] [address] [place] [address] Dr. Katrin Ceja Cholesterol in HDL [Mass/Vol] 31 mg/dL Critically low 40-60 [facility] Comment on above: Performed By: #### L IPID, LIVER #### [facility] [address] [place] [address] Dr. Katrin Ceja Cholesterol in LDL [Mass/Vol] 59.2 mg/dL Normal [facility] Comment on above: Performed By: #### L IPID, LIVER #### [facility] [address] [place] [address] Dr. Katrin Ceja Cholesterol.total/Chol esterol in HDL [Mass ratio] 4.1 {ratio} Normal [facility] Comment on above: Performed By: #### L IPID, LIVER #### [facility] [address] [address] [address] Katrin Ceja HDL NORMAL > or = 60 mg/dl - LO W CARDIOVASCULAR RISK <40 mg/dl - HIGH CARDIOVASCULAR RISK Normal [facility] Comment on above: Performed By: #### L IPID, LIVER #### [facility] [address] [place] [address] Dr. Katrin Ceja LDL CALC NORMAL SEE BELOW Normal [facility] Comment on above: Result Comment: <100 mg/dl OPTIMAL 100 - 129 mg/dl NEAR OR ABOVE OPTIMAL 130 - 159 mg/dl BORDERLINE HIGH 160 - 189 mg/dl HIGH >190 mg/dl VERY HIGH Performed By: #### L IPID, LIVER #### [facility] [address] [place] [address] Dr. Katrin Ceja Triglyceride [Mass/Vol] 179 mg/dL Critically high <=150 [facility] Comment on above: Performed By: #### L IPID, LIVER #### [facility] [address] [place] [address] Dr. Katrin Ceja VLDL CALC 35.8 mg/dL Normal [facility] Comment on above: Performed By: #### L IPID, LIVER #### [facility] [address] [place] [address] Dr. Katrin Ceja LIVER PROFILEon 12-18-2021 Albumin [Mass/Vol] 3.6 g/dL Normal 3.4-5.0 [facility] Comment on above: Performed By: #### L IPID, LIVER #### [facility] [address] [place] [address] Dr. Katrin Ceja Albumin/Globulin [Mass ratio] 0.8 {ratio} Normal [facility] Comment on above: Performed By: #### L IPID, LIVER #### [facility] [address] [address] [address] Katrin Ceja ALP [Catalytic activity/Vol] 196 U/L Critically high 46-116 [facility] Comment on above: Performed By: #### L IPID, LIVER #### [facility] [address] [address] [address] Katrin Ceja ALT [Catalytic activity/Vol] 51 U/L Normal 14-59 [facility] Comment on above: Performed By: #### L IPID, LIVER #### [facility] [address] [address] [address] Katrin Ceja AST [Catalytic activity/Vol] 22 U/L Normal 15-37 [facility] Comment on above: Performed By: #### L IPID, LIVER #### [facility] [address] [address] [address] Katrin Ceja BILI, CONJUGATED 0.1 mg/dL Normal 0.0-0.2 [facility] Comment on above: Performed By: #### L IPID, LIVER #### [facility] [address] [address] [address] Katrin Ceja Bilirubin [Mass/Vol] 0.4 mg/dL Normal 0.2-1.0 [facility] Comment on above: Performed By: #### L IPID, LIVER #### [facility] [address] [address] [address] Katrin Ceja Globulin (S) [Mass/Vol] 4.4 g/dL Normal [facility] Comment on above: Performed By: #### L IPID, LIVER #### [facility] [address] [address] [address] Katrin Ceja Protein [Mass/Vol] 8.0 g/dL Normal 6.4-8.2 [facility] Comment on above: Performed By: #### L IPID, LIVER #### [facility] [address] [address] [address] Katrin Ceja XR FOOT RT MIN [...] RIVER SAID Date: 2021-12-07 00:19 Normal [facility] PROF 14(COMP METB)on 022 Albumin [Mass/Vol] 3.6 g/dL Normal 3.4-5.0 [facility] Comment on above: Performed By: #### L IPID, CMP #### [facility] [address] [place] [address] Dr. Katrin Ceja Albumin/Globulin [Mass ratio] 0.8 {ratio} Normal [facility] Comment on above: Performed By: #### L IPID, CMP #### [facility] [address] [place] [address] Dr. Katrin Ceja ALP [Catalytic activity/Vol] 209 U/L Critically high 46-116 [facility] Comment on above: Performed By: #### L IPID, CMP #### [facility] [address] [place] [address] Dr. Katrin Ceja ALT [Catalytic activity/Vol] 65 U/L Critically high 14-59 [facility] Comment on above: Performed By: #### L IPID, CMP #### [facility] [address] [address] [address] Katrin Ceja Anion gap [Moles/Vol] 15.7 mmol/L Normal [facility] Comment on above: Performed By: #### L IPID, CMP #### [facility] [address] [place] [address] Dr. Katrin Ceja AST [Catalytic activity/Vol] 31 U/L Normal 15-37 [facility] Comment on above: Performed By: #### L IPID, CMP #### [facility] [address] [address] [address] Katrin Ceja Bilirubin [Mass/Vol] 0.2 mg/dL Normal 0.2-1.3 [facility] Comment on above: Performed By: #### L IPID, CMP #### [facility] [address] [place] [address] Dr. Katrin Ceja Calcium [Mass/Vol] 8.8 mg/dL Normal 8.5-10.1 [facility] Comment on above: Performed By: #### L IPID, CMP #### [facility] [address] [place] [address] Dr. Katrin Ceja Chloride [Moles/Vol] 105 mmol/L Normal 98-107 [facility] Comment on above: Performed By: #### L IPID, CMP #### [facility] [address] [place] [address] Dr. Katrin Ceja CO2 [Moles/Vol] 21.3 mmol/L Critically low 22.0-30.0 [facility] Comment on above: Performed By: #### L IPID, CMP #### [facility] [address] [place] [address] Dr. Katrin Ceja Creatinine [Mass/Vol] 0.72 mg/dL Normal 0.52-1.04 [facility] Comment on above: Performed By: #### L IPID, CMP #### [facility] [address] [place] [address] Dr. Katrin Ceja EGFR-AF NORWEGIAN >60 Normal >=60 [facility] Comment on above: Performed By: #### L IPID, CMP #### [facility] [address] [place] [address] Dr. Katrin Ceja EGFR-NON AF NORWEGIAN >60 Normal >=60 [facility] Comment on above: Performed By: #### L IPID, CMP #### [facility] [address] [place] [address] Dr. Katrin Ceja Globulin (S) [Mass/Vol] 4.3 g/dL Normal [facility] Comment on above: Performed By: #### L IPID, CMP #### [facility] [address] [address] [address] Katrin Ceja Glucose [Mass/Vol] 99 mg/dL Normal 74-106 [facility] Comment on above: Performed By: #### L IPID, CMP #### [facility] [address] [place] [address] Dr. Katrin Ceja Potassium [Moles/Vol] 4.0 mmol/L Normal 3.4-5.0 [facility] Comment on above: Performed By: #### L IPID, CMP #### [facility] [address] [place] [address] Dr. Katrin Ceja Protein [Mass/Vol] 7.9 g/dL Normal 6.1-8.2 [facility] Comment on above: Performed By: #### L IPID, CMP #### [facility] [address] [place] [address] Dr. Katrin Ceja Sodium [Moles/Vol] 138 mmol/L Normal 137-145 [facility] Comment on above: Performed By: #### L IPID, CMP #### [facility] [address] [place] [address] Dr. Katrin Ceja Urea nitrogen [Mass/Vol] 13.0 mg/dL Normal 7.0-18.0 [facility] Comment on above: Performed By: #### L IPID, CMP #### [facility] [address] [place] [address] Dr. Katrin Ceja Urea nitrogen/Creatinine [Mass ratio] 18.1 mg/mg Normal [facility] Comment on above: Performed By: #### L IPID, CMP #### [facility] [address] [place] [address] Dr. Katrin Ceja XR HUMERUS RT MIN [...] MODESTA NAVA Date: 2021-10-17 01:46 Normal [facility] XR SHOULDER RT 2V or >on [...] MODESTA NAVA Date: 2021-10-17 01:45 Normal [facility] XR WRIST RT MIN 3 Von 2021 XR WRIST RT MIN 3 V EXAM: XR WRIST RT GA N 3 V HISTORY: Pain acute right arm pain following fall. COMPARISON: None. TECHNIQUE: AP, oblique and lateral views of the right wrist. FINDINGS: No acute or intrinsic osseous, articular or soft tissue abnormality is seen. IMPRESSION: No acute right wrist findings. Electronically authenticated by: MODESTA NAVA Date: 2021-10-17 01:44 Normal [facility] AMYLASEon 09-18-2021 Amylase [Catalytic activity/Vol] 34 U/L Normal 31-110 [facility] Comment on above: Performed By: #### P REG #### [facility] [address] [place] [address] Dr. Katrin Ceja CBC AUTO DIFFon 09-18-2021 BASO # 0.0 103/ul Normal 0.0-0.1 [facility] Comment on above: Performed By: #### C BC #### [facility] [address] [place] [address] Dr. Katrin Ceja Basophils/100 WBC (Bld) 0.3 % Normal 0.2-2.0 [facility] Comment on above: Performed By: #### C BC #### [facility] [address] [place] [address] Dr. Katrin Ceja EO # 0.2 103/ul Normal 0.0-0.7 [facility] Comment on above: Performed By: #### C BC #### [facility] [address] [place] [address] Dr. Katrin Ceja Eosinophils/100 WBC (Bld) 2.4 % Normal 0.9-7.0 [facility] Comment on above: Performed By: #### C BC #### [facility] [address] [place] [address] Dr. Katrin Ceja Erythrocyte distribution width (RBC) [Ratio] 12.5 % Normal 11.0-15.0 [facility] Comment on above: Performed By: #### C BC #### [facility] [address] [place] [address] Dr. Katrin Ceja Hematocrit (Bld) [Volume fraction] 37.4 % Normal 36.0-48.0 [facility] Comment on above: Performed By: #### C BC #### [facility] [address] [place] [address] Dr. Katrin Ceja Hemoglobin (Bld) [Mass/Vol] 12.3 g/dL Normal 12.0-16.0 [facility] Comment on above: Performed By: #### C BC #### [facility] [address] [place] [address] Dr. Katrin Ceja IG # 0.05 10e3/ul Critically high 0.00-0.03 [facility] Comment on above: Performed By: #### C BC #### [facility] [address] [place] [address] Dr. Katrin Ceja IG % 0.5 % Normal 0.0-0.5 [facility] Comment on above: Performed By: #### C BC #### [facility] [address] [place] [address] Dr. Katrin Ceja LYMPH # 3.1 103/ul Normal 1.2-3.8 [facility] Comment on above: Performed By: #### C BC #### [facility] [address] [place] [address] Dr. Katrin Ceja Lymphocytes/100 WBC (Bld) 31.7 % Normal 20.5-60.0 [facility] Comment on above: Performed By: #### C BC #### [facility] [address] [place] [address] Dr. Katrin Ceja MANUAL DIFF REQ NO Normal [facility] Comment on above: Performed By: #### C BC #### [facility] [address] [place] [address] Dr. Katrin Ceja MCH (RBC) [Entitic mass] 28.9 pg Normal 26.7-34.0 [facility] Comment on above: Performed By: #### C BC #### [facility] [address] [place] [address] Dr. Katrin Ceja MCHC (RBC) [Mass/Vol] 32.9 g/dL Normal 29.9-35.2 [facility] Comment on above: Performed By: #### C BC #### [facility] [address] [place] [address] Dr. Katrin Ceja MCV (RBC) [Entitic vol] 88.0 fL Normal 81.0-99.0 [facility] Comment on above: Performed By: #### C BC #### [facility] [address] [place] [address] Dr. Katrin Ceja MONO # 0.7 103/ul Normal 0.3-0.8 [facility] Comment on above: Performed By: #### C BC #### [facility] [address] [place] [address] Dr. Katrin Ceja Monocytes/100 WBC (Bld) 6.7 % Normal 1.7-12.0 [facility] Comment on above: Performed By: #### C BC #### [facility] [address] [place] [address] Dr. Katrin Ceja NEUT # 5.7 103/ul Normal 1.4-6.5 [facility] Comment on above: Performed By: #### C BC #### [facility] [address] [place] [address] Dr. Katrin Ceja Neutrophils/100 WBC (Bld) 58.4 % Normal 43.0-75.0 [facility] Comment on above: Performed By: #### C BC #### [facility] [address] [place] [address] Dr. Katrin Ceja Platelet mean volume (Bld) [Entitic vol] 8.8 fL Critically low 9.5-13.5 [facility] Comment on above: Performed By: #### C BC #### [facility] [address] [place], [place] [address] Dr. Katrin Ceja PLT 265 103/ul Normal 150-450 [facility] Comment on above: Performed By: #### C BC #### [facility] [address] [id number] [address] Katrin Ceja RBC 4.25 106/ul Normal 4.20-5.40 [facility] Comment on above: Performed By: #### C BC #### [facility] [address] [place], [place] [address] Dr. Katrin Ceja WBC 9.7 103/ul Normal 4.0-11.0 [facility] Comment on above: Performed By: #### C BC #### [facility] [id number] Katrin Ceja CT ABD/PELV W CONon [...] ISAIAH FAROOQ Date: 2021-09-18 03:51 Normal [facility] ER URINE PROFILEon 2 Bilirubin Ql (U) Negative Normal NEGATIVE [facility] Comment on above: Performed By: #### C BC #### [facility] [address] [place] [address] Dr. Katrin Ceja Clarity (U) CLEAR Normal CLEAR [facility] Comment on above: Performed By: #### C BC #### [facility] [address] [place] [address] Dr. Katrin Ceja Color (U) LT. YELLOW Normal YELLOW [facility] Comment on above: Performed By: #### C BC #### [facility] [address] [place] [address] Dr. Katrin Ceja ERUAHD A micrscopic examina tion will be performed if indicated. Normal [facility] Comment on above: Performed By: #### C BC #### [facility] [address] [place] [address] Dr. Katrin Ceja Glucose Ql (U) Negative Normal NEGATIVE [facility] Comment on above: Performed By: #### C BC #### [facility] [address] [place] [address] Dr. Katrin Ceja Hemoglobin Ql (U) SMALL Abnormal NEGATIVE [facility] Comment on above: Performed By: #### C BC #### [facility] [address] [place] [address] Dr. Katrin Ceja Ketones Ql (U) Negative Normal NEGATIVE [facility] Comment on above: Performed By: #### C BC #### [facility] [address] [place] [address] Dr. Katrin Ceja LEUKOCYTES Negative Normal NEGATIVE [facility] Comment on above: Performed By: #### C BC #### [facility] [address] [place] [address] Dr. Katrin Ceja Nitrite Ql (U) Negative Normal NEGATIVE [facility] Comment on above: Performed By: #### C BC #### [facility] [address] [place] [address] Dr. Katrin Ceja pH (U) 7.5 [pH] Normal 5-9 [facility] Comment on above: Performed By: #### C BC #### [facility] [address] [place] [address] Dr. Katrin Ceja SPEC GRAVITY 1.010 Normal 1.005-<=1. 025 [facility] Comment on above: Performed By: #### C BC #### [facility] [address] [place] [address] Dr. Katrin Ceja UA PROTEIN Negative Normal NEGATIVE/ TRACE [facility] Comment on above: Performed By: #### C BC #### [facility] [address] [place] [address] Dr. Katrin Ceja UR MICRO IND INDICATED Normal [facility] Comment on above: Performed By: #### C BC #### [facility] [address] [place] [address] Dr. Katrin Ceja Urobilinogen Qn (U) 0.2 {Jeannie'U}/dL Normal 0.2 - 1. 0 [facility] Comment on above: Performed By: #### C BC #### [facility] [address] [place] [address] Dr. Katrin Ceja LIPASEon 09-18-2021 Lipase [Catalytic activity/Vol] 81.0 U/L Normal 23.0-300.0 [facility] Comment on above: Performed By: #### P REG #### [facility] [address] [place] [address] Dr. Katrin Ceja URon 09-18-2021 , QUAL Negative Normal NEGATIVE [facility] Comment on above: Performed By: #### C BC #### [facility] [address] [place] [address] Dr. Katrin Ceja PROF 14(COMP METB)on 022 Albumin [Mass/Vol] 3.2 g/dL Critically low 3.5-5.0 [facility] Comment on above: Performed By: #### P REG #### [facility] [address] [address] [address] Katrin Ceja Albumin/Globulin [Mass ratio] 0.8 {ratio} Normal [facility] Comment on above: Performed By: #### P REG #### [facility] [address] [address] [address] Katrin Ceja ALP [Catalytic activity/Vol] 216 U/L Critically high 38-126 [facility] Comment on above: Performed By: #### P REG #### [facility] [address] [place] [address] Dr. Katrin Ceja ALT [Catalytic activity/Vol] 109 U/L Critically high 9-52 [facility] Comment on above: Performed By: #### P REG #### [facility] [address] [place] [address] Dr. Katrin Ceja Anion gap [Moles/Vol] 10.5 mmol/L Normal [facility] Comment on above: Performed By: #### P REG #### [facility] [address] [place] [address] Dr. Katrin Ceja AST [Catalytic activity/Vol] 66 U/L Critically high 14-36 [facility] Comment on above: Performed By: #### P REG #### [facility] [address] [place] [address] Dr. Katrin Ceja Bilirubin [Mass/Vol] 0.2 mg/dL Normal 0.2-1.3 [facility] Comment on above: Performed By: #### P REG #### [facility] [address] [place] [address] Dr. Katrin Ceja Calcium [Mass/Vol] 8.3 mg/dL Critically low 8.4-10.2 [facility] Comment on above: Performed By: #### P REG #### [facility] [address] [place] [address] Dr. Katrin Ceja Chloride [Moles/Vol] 103 mmol/L Normal 98-107 [facility] Comment on above: Performed By: #### P REG #### [facility] [address] [place] [address] Dr. Katrin Ceja CO2 [Moles/Vol] 26.2 mmol/L Normal 22.0-30.0 [facility] Comment on above: Performed By: #### P REG #### [facility] [address] [place] [address] Dr. Katrin Ceja Creatinine [Mass/Vol] 0.81 mg/dL Normal 0.52-1.04 [facility] Comment on above: Performed By: #### P REG #### [facility] [address] [address] [address] Katrin Ceja EGFR-AF NORWEGIAN >60 Normal >=60 [facility] Comment on above: Performed By: #### P REG #### [facility] [address] [place] [address] Dr. Katrin eCja EGFR-NON AF NORWEGIAN >60 Normal >=60 [facility] Comment on above: Performed By: #### P REG #### [facility] [address] [place] [address] Dr. Katrin Ceja Globulin (S) [Mass/Vol] 4.1 g/dL Normal [facility] Comment on above: Performed By: #### P REG #### [facility] [address] [place] [address] Dr. Katrin Ceja Glucose [Mass/Vol] 90 mg/dL Normal 74-106 [facility] Comment on above: Performed By: #### P REG #### [facility] [address] [place] [address] Dr. Katrin Ceja Potassium [Moles/Vol] 3.7 mmol/L Normal 3.4-5.0 [facility] Comment on above: Performed By: #### P REG #### [facility] [address] [place] [address] Dr. Katrin Ceja Protein [Mass/Vol] 7.3 g/dL Normal 6.1-8.2 [facility] Comment on above: Performed By: #### P REG #### [facility] [address] [place] [address] Dr. Katrin Ceja Sodium [Moles/Vol] 136 mmol/L Critically low 137-145 Th e [facility] Comment on above: Performed By: #### P REG #### [facility] [address] [address] [address] Katrin Ceja Urea nitrogen [Mass/Vol] 5.0 mg/dL Critically low 7.0-17.0 [facility] Comment on above: Performed By: #### P REG #### [facility] [address] [place] [address] Dr. Katrin Ceja Urea nitrogen/Creatinine [Mass ratio] 6.2 mg/mg Normal [facility] Comment on above: Performed By: #### P REG #### [facility] [address] [place] [address] Dr. Katrin Ceja URINE MICROSCOPIC ONLYon BACTERIA NONE SEEN Normal NONE SEEN [facility] Comment on above: Performed By: #### C BC #### [facility] [address] [place] [address] Dr. Katrin Ceja Bacteria identified Cx Nom (U) NOT INDICATED Normal [facility] Comment on above: Performed By: #### C BC #### [facility] [address] [place] [address] Dr. Katrin Ceja CAST NONE SEEN Normal NONE SEEN [facility] Comment on above: Performed By: #### C BC #### [facility] [address] [place] [address] Dr. Katrin Ceja Crystals LM Nom (Urine sed) NONE SEEN Normal NONE SEEN [facility] Comment on above: Performed By: #### C BC #### [facility] [address] [place] [address] Dr. Katrin Ceja Epithelial cells LM Ql (Urine sed) FEW Abnormal NONE SEEN /RARE [facility] Comment on above: Performed By: #### C BC #### [facility] [address] [place] [address] Dr. Katrin Ceja MUCOUS NONE SEEN Normal NONE SEEN [facility] Comment on above: Performed By: #### C BC #### [facility] [address] [place] [address] Dr. Katrin Ceja RBC NONE SEEN Abnormal 0-2 [facility] Comment on above: Performed By: #### C BC #### [facility] [address] [place] [address] Dr. Katrin Ceja WBC NONE SEEN Normal NONE SEEN [facility] Comment on above: Performed By: #### C BC #### [facility] [facility] [address] [place] [address] Dr. Katrin Ceja XR ABD FLAT UP_PA [...] ISAIAH FAROOQ Date: 2021-09-18 02:00 Normal [facility] CBC AUTO DIFFon 07-18-2021 BASO # 0.0 103/ul Normal 0.0-0.1 [facility] Comment on above: Performed By: #### C BC #### [facility] [address] [place] [address] Dr. Katrin Ceja Basophils/100 WBC (Bld) 0.3 % Normal 0.2-2.0 [facility] Comment on above: Performed By: #### C BC #### [facility] [address] [place] [address] Dr. Katrin Ceja EO # 0.2 103/ul Normal 0.0-0.7 [facility] Comment on above: Performed By: #### C BC #### [facility] [address] [place] [address] Dr. Katrin Ceja Eosinophils/100 WBC (Bld) 1.7 % Normal 0.9-7.0 [facility] Comment on above: Performed By: #### C BC #### [facility] [address] [place] [address] Dr. Katrin Ceja Erythrocyte distribution width (RBC) [Ratio] 13.1 % Normal 11.0-15.0 [facility] Comment on above: Performed By: #### C BC #### [facility] [address] [place] [address] Dr. Katrin Ceja Hematocrit (Bld) [Volume fraction] 42.0 % Normal 36.0-48.0 [facility] Comment on above: Performed By: #### C BC #### [facility] [address] [place] [address] Dr. Katrin Ceja Hemoglobin (Bld) [Mass/Vol] 13.7 g/dL Normal 12.0-16.0 [facility] Comment on above: Performed By: #### C BC #### [facility] [address] [place] [address] Dr. Katrin Ceja IG # 0.07 10e3/ul Critically high 0.00-0.03 [facility] Comment on above: Performed By: #### C BC #### [facility] [address] [place] [address] Dr. Katrin Ceja IG % 0.6 % Critically high 0.0-0.5 [facility] Comment on above: Performed By: #### C BC #### [facility] [address] [place] [address] Dr. Katrin Ceja LYMPH # 2.9 103/ul Normal 1.2-3.8 [facility] Comment on above: Performed By: #### C BC #### [facility] [address] [place] [address] Dr. Katrin Ceja Lymphocytes/100 WBC (Bld) 27.1 % Normal 20.5-60.0 [facility] Comment on above: Performed By: #### C BC #### [facility] [address] [place] [address] Dr. Katrin Ceja MANUAL DIFF REQ NO Normal [facility] Comment on above: Performed By: #### C BC #### [facility] [address] [place] [address] Dr. Katrin Ceja MCH (RBC) [Entitic mass] 29.3 pg Normal 26.7-34.0 [facility] Comment on above: Performed By: #### C BC #### [facility] [address] [address] [address] Katrin Ceja MCHC (RBC) [Mass/Vol] 32.6 g/dL Normal 29.9-35.2 [facility] Comment on above: Performed By: #### C BC #### [facility] [address] [address] [address] Katrin Ceja MCV (RBC) [Entitic vol] 89.7 fL Normal 81.0-99.0 [facility] Comment on above: Performed By: #### C BC #### [facility] [address] [place] [address] Dr. Katrin Ceja MONO # 0.9 103/ul Critically high 0.3-0.8 [facility] Comment on above: Performed By: #### C BC #### [facility] [address] [place] [address] Dr. Katrin Ceja Monocytes/100 WBC (Bld) 8.2 % Normal 1.7-12.0 [facility] Comment on above: Performed By: #### C BC #### [facility] [address] [place] [address] Dr. Katrin Ceja NEUT # 6.7 103/ul Critically high 1.4-6.5 [facility] Comment on above: Performed By: #### C BC #### [facility] [address] [place] [address] Dr. Katrin Ceja Neutrophils/100 WBC (Bld) 62.1 % Normal 43.0-75.0 [facility] Comment on above: Performed By: #### C BC #### [facility] [address] [place] [address] Dr. Katrin Ceja Platelet mean volume (Bld) [Entitic vol] 9.7 fL Normal 9.5-13.5 [facility] Comment on above: Performed By: #### C BC #### [facility] [address] [place] [address] Dr. Katrin Ceja PLT 334 103/ul Normal 150-450 [facility] Comment on above: Performed By: #### C BC #### [facility] [address] [address] [address] Katrin Ceja RBC 4.68 106/ul Normal 4.20-5.40 [facility] Comment on above: Performed By: #### C BC #### [facility] [address] [address] [address] Katrin Ceja WBC 10.8 103/ul Normal 4.0-11.0 [facility] Comment on above: Performed By: #### C BC #### [facility] [address] [address] [address] Katrin Ceja GLYCOHEMOGLOBIN A1Con 2021 ADA RECOMMENDATION ADA THERAPEUTIC TARG ET 6.0 - 7.0 ACTION SUGGESTED > 7.0 Normal [facility] Comment on above: Performed By: #### C BC #### [facility] [address] [place] [address] Dr. Katrin Ceja Glucose [Mass/Vol] 105 mg/dL Normal [facility] Comment on above: Performed By: #### C BC #### [facility] [address] [place] [address] Dr. Katrin Ceja HbA1c (Bld) [Mass fraction] 5.3 % Normal <=6.0 [facility] Comment on above: Performed By: #### C BC #### [facility] [address] [place] [address] Dr. Katrin Ceja LIPID PROFILEon 07-18-2021 CHOL-HDL RATIO NORM SEE BELOW Normal [facility] Comment on above: Result Comment: 3.3 - 4.4 LOW RISK 4.4 - 7.1 AVERAGE RISK 7.1 - 11.0 MODERATE RISK >11.0 HIGH RISK Performed By: #### L IPID, CMP #### [facility] [address] [place] [address] Dr. Katrin Ceja Cholesterol [Mass/Vol] 302 mg/dL Critically high <=200 [facility] Comment on above: Performed By: #### L IPID, CMP #### [facility] [address] [address] [address] Katrin Ceja Cholesterol in HDL [Mass/Vol] 39 mg/dL Normal [facility] Comment on above: Performed By: #### L IPID, CMP #### [facility] [address] [address] [address] Katrin Ceja Cholesterol in LDL [Mass/Vol] 207.0 mg/dL Normal [facility] Comment on above: Performed By: #### L IPID, CMP #### [facility] [address] [place] [address] Dr. Katrin Ceja Cholesterol.total/Chol esterol in HDL [Mass ratio] 7.7 {ratio} Normal [facility] Comment on above: Performed By: #### L IPID, CMP #### [facility] [address] [place] [address] Dr. Katrin Ceja HDL NORMAL > or = 60 mg/dl - LO W CARDIOVASCULAR RISK <40 mg/dl - HIGH CARDIOVASCULAR RISK Normal [facility] Comment on above: Performed By: #### L IPID, CMP #### [facility] [address] [place] [address] Dr. Katrin Ceja LDL CALC NORMAL SEE BELOW Normal [facility] Comment on above: Result Comment: <100 mg/dl OPTIMAL 100 - 129 mg/dl NEAR OR ABOVE OPTIMAL 130 - 159 mg/dl BORDERLINE HIGH 160 - 189 mg/dl HIGH >190 mg/dl VERY HIGH Performed By: #### L IPID, CMP #### [facility] [address] [place] [address] Dr. Katrin Ceja Triglyceride [Mass/Vol] 280 mg/dL Critically high <=150 [facility] Comment on above: Performed By: #### L IPID, CMP #### [facility] [address] [place] [address] Dr. Katrin Ceja VLDL CALC 56.0 mg/dL Normal [facility] Comment on above: Performed By: #### L IPID, CMP #### [facility] [address] [place] [address] Dr. Katrin Ceja PROF 14(COMP METB)on 022 Albumin [Mass/Vol] 3.5 g/dL Normal 3.5-5.0 [facility] Comment on above: Performed By: #### L IPID, CMP #### [facility] [address] [address] [address] Katrin Ceja Albumin/Globulin [Mass ratio] 0.7 {ratio} Normal [facility] Comment on above: Performed By: #### L IPID, CMP #### [facility] [address] [address] [address] Katrin Ceja ALP [Catalytic activity/Vol] 291 U/L Critically high 38-126 [facility] Comment on above: Performed By: #### L IPID, CMP #### [facility] [address] [address] [address] Katrin Ceja ALT [Catalytic activity/Vol] 174 U/L Critically high 9-52 [facility] Comment on above: Performed By: #### L IPID, CMP #### [facility] [address] [address] [address] Katrin Ceja Anion gap [Moles/Vol] 15.3 mmol/L Normal [facility] Comment on above: Performed By: #### L IPID, CMP #### [facility] [address] [place] [address] Dr. Katrin Ceja AST [Catalytic activity/Vol] 97 U/L Critically high 14-36 [facility] Comment on above: Performed By: #### L IPID, CMP #### [facility] [address] [address] [address] Katrin Ceja Bilirubin [Mass/Vol] 0.4 mg/dL Normal 0.2-1.3 [facility] Comment on above: Performed By: #### L IPID, CMP #### [facility] [address] [place] [address] Dr. Katrin Ceja Calcium [Mass/Vol] 9.3 mg/dL Normal 8.4-10.2 [facility] Comment on above: Performed By: #### L IPID, CMP #### [facility] [address] [place] [address] Dr. Katrin Ceja Chloride [Moles/Vol] 99 mmol/L Normal 98-107 [facility] Comment on above: Performed By: #### L IPID, CMP #### [facility] [address] [place] [address] Dr. Katrin Ceja CO2 [Moles/Vol] 24.1 mmol/L Normal 22.0-30.0 [facility] Comment on above: Performed By: #### L IPID, CMP #### [facility] [address] [place] [address] Dr. Katrin Ceja Creatinine [Mass/Vol] 0.65 mg/dL Normal 0.52-1.04 [facility] Comment on above: Performed By: #### L IPID, CMP #### [facility] [address] [place] [address] Dr. Katrin Ceja EGFR-AF NORWEGIAN >60 Normal >=60 [facility] Comment on above: Performed By: #### L IPID, CMP #### [facility] [address] [place] [address] Dr. Katrin Ceja EGFR-NON AF NORWEGIAN >60 Normal >=60 [facility] Comment on above: Performed By: #### L IPID, CMP #### [facility] [address] [place] [address] Dr. Katrin Ceja Globulin (S) [Mass/Vol] 5.0 g/dL Normal [facility] Comment on above: Performed By: #### L IPID, CMP #### [facility] [address] [place] [address] Dr. Katrin Ceja Glucose [Mass/Vol] 86 mg/dL Normal 74-106 [facility] Comment on above: Performed By: #### L IPID, CMP #### [facility] [address] [place] [address] Dr. Katrin Ceja Potassium [Moles/Vol] 4.4 mmol/L Normal 3.4-5.0 [facility] Comment on above: Performed By: #### L IPID, CMP #### [facility] [address] [place] [address] Dr. Katrin Ceja Protein [Mass/Vol] 8.5 g/dL Critically high 6.1-8.2 [facility] Comment on above: Performed By: #### L IPID, CMP #### [facility] [address] [place] [address] Dr. Katrin Ceja Sodium [Moles/Vol] 134 mmol/L Critically low 137-145 [facility] Comment on above: Performed By: #### L IPID, CMP #### [facility] [address] [place] [address] Dr. Katrin Ceja Urea nitrogen [Mass/Vol] 8.0 mg/dL Normal 7.0-17.0 [facility] Comment on above: Performed By: #### L IPID, CMP #### [facility] [address] [place] [address] Dr. Katrin Ceja Urea nitrogen/Creatinine [Mass ratio] 12.3 mg/mg Normal [facility] Comment on above: Performed By: #### L IPID, CMP #### [facility] [address] [place] [address] Dr. Katrin Ceja AMYLASEon 05-01-2021 AMYL <30 Critically low 31-110 [facility] Comment on above: Performed By: #### P REG #### [facility] [address] [place] [address] Dr. Katrin Ceja CBC AUTO DIFFon 05-01-2021 BASO # 0.0 103/ul Normal 0.0-0.1 [facility] Comment on above: Performed By: #### L IPID, CMP #### [facility] [address] [place] [address] Dr. Katrin Ceja Basophils/100 WBC (Bld) 0.3 % Normal 0.2-2.0 [facility] Comment on above: Performed By: #### L IPID, CMP #### [facility] [address] [place] [address] Dr. Katrin Ceja EO # 0.1 103/ul Normal 0.0-0.7 [facility] Comment on above: Performed By: #### L IPID, CMP #### [facility] [address] [address] [address] Katrin Ceja Eosinophils/100 WBC (Bld) 0.4 % Critically low 0.9-7.0 [facility] Comment on above: Performed By: #### L IPID, CMP #### [facility] [address] [place] [address] Dr. Katrin Ceja Erythrocyte distribution width (RBC) [Ratio] 13.0 % Normal 11.0-15.0 [facility] Comment on above: Performed By: #### L IPID, CMP #### [facility] [address] [place] [address] Dr. Katrin Ceja Hematocrit (Bld) [Volume fraction] 37.7 % Normal 36.0-48.0 [facility] Comment on above: Performed By: #### L IPID, CMP #### [facility] [address] [place] [address] Dr. Katrin Ceja Hemoglobin (Bld) [Mass/Vol] 12.5 g/dL Normal 12.0-16.0 [facility] Comment on above: Performed By: #### L IPID, CMP #### [facility] [address] [place] [address] Dr. Katrin Ceja IG # 0.09 10e3/ul Critically high 0.00-0.03 [facility] Comment on above: Performed By: #### L IPID, CMP #### [facility] [address] [place] [address] Dr. Katrin Ceja IG % 0.6 % Critically high 0.0-0.5 [facility] Comment on above: Performed By: #### L IPID, CMP #### [facility] [address] [place] [address] Dr. Katrin Ceja LYMPH # 1.9 103/ul Normal 1.2-3.8 [facility] Comment on above: Performed By: #### L IPID, CMP #### [facility] [address] [place] [address] Dr. Katrni Ceja Lymphocytes/100 WBC (Bld) 12.1 % Critically low 20.5-60.0 [facility] Comment on above: Performed By: #### L IPID, CMP #### [facility] [address] [place] [address] Dr. Katrin Ceja MANUAL DIFF REQ NO Normal [facility] Comment on above: Performed By: #### L IPID, CMP #### [facility] [address] [place] [address] Dr. Katrin Ceja MCH (RBC) [Entitic mass] 28.8 pg Normal 26.7-34.0 [facility] Comment on above: Performed By: #### L IPID, CMP #### [facility] [address] [place] [address] Dr. Katrin Ceja MCHC (RBC) [Mass/Vol] 33.2 g/dL Normal 29.9-35.2 [facility] Comment on above: Performed By: #### L IPID, CMP #### [facility] [address] [place] [address] Dr. Katrin Ceja MCV (RBC) [Entitic vol] 86.9 fL Normal 81.0-99.0 [facility] Comment on above: Performed By: #### L IPID, CMP #### [facility] [address] [place] [address] Dr. Katrin Ceja MONO # 1.1 103/ul Critically high 0.3-0.8 [facility] Comment on above: Performed By: #### L IPID, CMP #### [facility] [address] [place] [address] Dr. Katrin Ceja Monocytes/100 WBC (Bld) 7.1 % Normal 1.7-12.0 [facility] Comment on above: Performed By: #### L IPID, CMP #### [facility] [address] [place] [address] Dr. Katrin Ceja NEUT # 12.3 103/ul Critically high 1.4-6.5 [facility] Comment on above: Performed By: #### L IPID, CMP #### [facility] [address] [place] [address] Dr. Katrin eCja Neutrophils/100 WBC (Bld) 79.5 % Critically high 43.0-75.0 [facility] Comment on above: Performed By: #### L IPID, CMP #### [facility] [address] [address] [address] Katrin Ceja Platelet mean volume (Bld) [Entitic vol] 8.7 fL Critically low 9.5-13.5 [facility] Comment on above: Performed By: #### L IPID, CMP #### [facility] [address] [address] [address] Katrin Ceja PLT 329 103/ul Normal 150-450 [facility] Comment on above: Performed By: #### L IPID, CMP #### [facility] [address] [address] [address] Katrin Ceja RBC 4.34 106/ul Normal 4.20-5.40 [facility] Comment on above: Performed By: #### L IPID, CMP #### [facility] [address] [address] [address] Katrin Ceja WBC 15.5 103/ul Critically high 4.0-11.0 [facility] Comment on above: Performed By: #### L IPID, CMP #### [facility] [address] [place] [address] ABD/PELV W CONon [...] by: HILDA RAHMAN Date: 2021-05-01 20:30 Normal [facility] LIPASEon 05-01-2021 Lipase [Catalytic activity/Vol] 64.0 U/L Normal 23.0-300.0 [facility] Comment on above: Performed By: #### P REG #### [facility] [address] [place] [address] Dr. Katrin Ceja LIVER PROFILEon 05-01-2021 Albumin [Mass/Vol] 3.3 g/dL Critically low 3.5-5.0 Th e [facility] Comment on above: Performed By: #### L IPID, CMP #### [facility] [address] [place] [address] Dr. Katrin Ceja Albumin/Globulin [Mass ratio] 0.6 {ratio} Normal [facility] Comment on above: Performed By: #### L IPID, CMP #### [facility] [address] [place] [address] Dr. Katrin Ceja ALP [Catalytic activity/Vol] 412 U/L Critically high 38-126 [facility] Comment on above: Performed By: #### L IPID, CMP #### [facility] [address] [address] [address] Katrin Ceja ALT [Catalytic activity/Vol] 124 U/L Critically high 9-52 [facility] Comment on above: Performed By: #### L IPID, CMP #### [facility] [address] [address] [address] Katrin Ceja AST [Catalytic activity/Vol] 61 U/L Critically high 14-36 [facility] Comment on above: Performed By: #### L IPID, CMP #### [facility] [address] [place] [address] Dr. Katrin Ceja BILI, CONJUGATED 0.2 mg/dL Normal 0.0-0.3 [facility] Comment on above: Performed By: #### L IPID, CMP #### [facility] [address] [place] [address] Dr. Katrin Ceja Bilirubin [Mass/Vol] 0.4 mg/dL Normal 0.2-1.3 [facility] Comment on above: Performed By: #### L IPID, CMP #### [facility] [address] [place] [address] Dr. Katrin Ceja Globulin (S) [Mass/Vol] 5.1 g/dL Normal [facility] Comment on above: Performed By: #### L IPID, CMP #### [facility] [address] [place] [address] Dr. Katrin Ceja Protein [Mass/Vol] 8.4 g/dL Critically high 6.1-8.2 [facility] Comment on above: Performed By: #### L IPID, CMP #### [facility] [address] [place] [address] Dr. Katrin Ceja PREG HCG QUALon 05-01-2021 , QUAL Negative Normal NEGATIVE [facility] Comment on above: Performed By: #### P REG #### [facility] [address] [place] [address] Dr. Katrin Ceja PROF CHEM 8 (BAS METB)on Anion gap [Moles/Vol] 17.1 mmol/L Normal [facility] Comment on above: Performed By: #### P REG #### [facility] [address] [address] [address] Katrin Ceja Calcium [Mass/Vol] 8.9 mg/dL Normal 8.4-10.2 [facility] Comment on above: Performed By: #### P REG #### [facility] [address] [address] [address] Katrin Ceja Chloride [Moles/Vol] 100 mmol/L Normal 98-107 [facility] Comment on above: Performed By: #### P REG #### [facility] [address] [place] [address] Dr. Katrin Ceja CO2 [Moles/Vol] 21.1 mmol/L Critically low 22.0-30.0 [facility] Comment on above: Performed By: #### P REG #### [facility] [address] [place] [address] Dr. Katrin Ceja Creatinine [Mass/Vol] 0.78 mg/dL Normal 0.52-1.04 [facility] Comment on above: Performed By: #### P REG #### [facility] [address] [place] [address] Dr. Katrin Ceja EGFR-AF NORWEGIAN >60 Normal >=60 [facility] Comment on above: Performed By: #### P REG #### [facility] [address] [place] [address] Dr. Katrin Ceja EGFR-NON AF NORWEGIAN >60 Normal >=60 [facility] Comment on above: Performed By: #### P REG #### [facility] [address] [address] [address] Katrin Ceja Glucose [Mass/Vol] 97 mg/dL Normal 74-106 [facility] Comment on above: Performed By: #### P REG #### [facility] [address] [place] [address] Dr. Katrin Ceja Potassium [Moles/Vol] 4.2 mmol/L Normal 3.4-5.0 [facility] Comment on above: Performed By: #### P REG #### [facility] [address] [place] [address] Dr. Katrin Ceja Sodium [Moles/Vol] 134 mmol/L Critically low 137-145 [facility] Comment on above: Performed By: #### P REG #### [facility] [address] [place] [address] Dr. Katrin Ceja Urea nitrogen [Mass/Vol] 6.0 mg/dL Critically low 7.0-17.0 [facility] Comment on above: Performed By: #### P REG #### [facility] [address] [place] [address] Dr. Katrin Ceja Urea nitrogen/Creatinine [Mass ratio] 7.7 mg/mg Normal [facility] Comment on above: Performed By: #### P REG #### [facility] [facility] [address] [place] [address] Dr. Katrin Ceja CBC AUTO DIFFon 04-29-2021 BASO # 0.1 103/ul Normal 0.0-0.1 [facility] Comment on above: Performed By: #### L IPID, CMP #### [facility] [address] [place] [address] Dr. Katrin Ceja Basophils/100 WBC (Bld) 0.4 % Normal 0.2-2.0 [facility] Comment on above: Performed By: #### L IPID, CMP #### [facility] [address] [place] [address] Dr. Katrin Ceja EO # 0.2 103/ul Normal 0.0-0.7 [facility] Comment on above: Performed By: #### L IPID, CMP #### [facility] [address] [place] [address] Dr. Katrin Ceja Eosinophils/100 WBC (Bld) 1.7 % Normal 0.9-7.0 [facility] Comment on above: Performed By: #### L IPID, CMP #### [facility] [address] [place] [address] Dr. Katrin Ceja Erythrocyte distribution width (RBC) [Ratio] 12.9 % Normal 11.0-15.0 [facility] Comment on above: Performed By: #### L IPID, CMP #### [facility] [address] [place] [address] Dr. Katrin Ceja Hematocrit (Bld) [Volume fraction] 39.0 % Normal 36.0-48.0 [facility] Comment on above: Performed By: #### L IPID, CMP #### [facility] [address] [place] [address] Dr. Katrin Ceja Hemoglobin (Bld) [Mass/Vol] 12.9 g/dL Normal 12.0-16.0 [facility] Comment on above: Performed By: #### L IPID, CMP #### [facility] [address] [place] [address] Dr. Katrin Ceja IG # 0.08 10e3/ul Critically high 0.00-0.03 [facility] Comment on above: Performed By: #### L IPID, CMP #### [facility] [address] [place] [address] Dr. Katrin Ceja IG % 0.6 % Critically high 0.0-0.5 [facility] Comment on above: Performed By: #### L IPID, CMP #### [facility] [address] [place] [address] Dr. Katrin Ceja LYMPH # 3.2 103/ul Normal 1.2-3.8 [facility] Comment on above: Performed By: #### L IPID, CMP #### [facility] [address] [place] [address] Dr. Katrin Ceja Lymphocytes/100 WBC (Bld) 24.4 % Normal 20.5-60.0 [facility] Comment on above: Performed By: #### L IPID, CMP #### [facility] [address] [place] [address] Dr. Katrin Ceja MANUAL DIFF REQ NO Normal [facility] Comment on above: Performed By: #### L IPID, CMP #### [facility] [address] [address] [address] Katrin Ceja MCH (RBC) [Entitic mass] 29.1 pg Normal 26.7-34.0 [facility] Comment on above: Performed By: #### L IPID, CMP #### [facility] [address] [address] [address] Katrin Ceja MCHC (RBC) [Mass/Vol] 33.1 g/dL Normal 29.9-35.2 [facility] Comment on above: Performed By: #### L IPID, CMP #### [facility] [address] [address] [address] Katrin Ceja MCV (RBC) [Entitic vol] 88.0 fL Normal 81.0-99.0 [facility] Comment on above: Performed By: #### L IPID, CMP #### [facility] [address] [place] [address] Dr. Katrin Ceja MONO # 1.2 103/ul Critically high 0.3-0.8 [facility] Comment on above: Performed By: #### L IPID, CMP #### [facility] [address] [address] [address] Katrin Ceja Monocytes/100 WBC (Bld) 9.2 % Normal 1.7-12.0 [facility] Comment on above: Performed By: #### L IPID, CMP #### [facility] [address] [address] [address] Katrin Ceja NEUT # 8.3 103/ul Critically high 1.4-6.5 [facility] Comment on above: Performed By: #### L IPID, CMP #### [facility] [address] [address] [address] Katrin Ceja Neutrophils/100 WBC (Bld) 63.7 % Normal 43.0-75.0 [facility] Comment on above: Performed By: #### L IPID, CMP #### [facility] [address] [address] [address] Katrin Ceja Platelet mean volume (Bld) [Entitic vol] 9.2 fL Critically low 9.5-13.5 [facility] Comment on above: Performed By: #### L IPID, CMP #### [facility] [address] [address] [address] Katrin Ceja PLT 384 103/ul Normal 150-450 [facility] Comment on above: Performed By: #### L IPID, CMP #### [facility] [address] [address] [address] Katrin Ceja RBC 4.43 106/ul Normal 4.20-5.40 [facility] Comment on above: Performed By: #### L IPID, CMP #### [facility] [address] [address] [address] Katrin Ceja WBC 13.1 103/ul Critically high 4.0-11.0 [facility] Comment on above: Performed By: #### L IPID, CMP #### [facility] [address] [place] [address] ABD/PELV W CONon [...] by: Lorenzo LAN Date: 2021-04-29 02:49 Normal [facility] LACTATE/LACTIC ACIDon 2020 Lactate [Moles/Vol] 1.2 mmol/L Normal 0.7-2.0 [facility] Comment on above: Performed By: #### C BC #### [facility] [address] [place] [address] Dr. Katrin Ceja PROF 14(COMP METB)on 021 Albumin [Mass/Vol] 3.4 g/dL Critically low 3.5-5.0 [facility] Comment on above: Performed By: #### C BC #### [facility] [address] [place] [address] Dr. Katrin Ceja Albumin/Globulin [Mass ratio] 0.7 {ratio} Normal [facility] Comment on above: Performed By: #### C BC #### [facility] [address] [address] [address] Katrin Ceja ALP [Catalytic activity/Vol] 359 U/L Critically high 38-126 [facility] Comment on above: Performed By: #### C BC #### [facility] [address] [address] [address] Katrin Ceja ALT [Catalytic activity/Vol] 193 U/L Critically high 9-52 [facility] Comment on above: Performed By: #### C BC #### [facility] [address] [address] [address] Katrin Ceja Anion gap [Moles/Vol] 13.3 mmol/L Normal [facility] Comment on above: Performed By: #### C BC #### [facility] [address] [address] [address] Katrin Ceja AST [Catalytic activity/Vol] 115 U/L Critically high 14-36 [facility] Comment on above: Performed By: #### C BC #### [facility] [address] [address] [address] Katrin Ceja Bilirubin [Mass/Vol] 0.5 mg/dL Normal 0.2-1.3 [facility] Comment on above: Performed By: #### C BC #### [facility] [address] [address] [address] Katrin Ceja Calcium [Mass/Vol] 9.5 mg/dL Normal 8.4-10.2 [facility] Comment on above: Performed By: #### C BC #### [facility] [address] [address] [address] Katrin Ceja Chloride [Moles/Vol] 101 mmol/L Normal 98-107 [facility] Comment on above: Performed By: #### C BC #### [facility] [address] [address] [address] Katrin Ceja CO2 [Moles/Vol] 23.7 mmol/L Normal 22.0-30.0 [facility] Comment on above: Performed By: #### C BC #### [facility] [address] [address] [address] Katrin Ceja Creatinine [Mass/Vol] 0.83 mg/dL Normal 0.52-1.04 [facility] Comment on above: Performed By: #### C BC #### [facility] [address] [address] [address] Katrin Ceja EGFR-AF NORWEGIAN >60 Normal >=60 [facility] Comment on above: Performed By: #### C BC #### [facility] [address] [address] [address] Katrin Ceja EGFR-NON AF NORWEGIAN >60 Normal >=60 [facility] Comment on above: Performed By: #### C BC #### [facility] [address] [address] [address] Katrin Ceja Globulin (S) [Mass/Vol] 5.1 g/dL Normal [facility] Comment on above: Performed By: #### C BC #### [facility] [address] [address] [address] Katrin Ceja Glucose [Mass/Vol] 102 mg/dL Normal 74-106 [facility] Comment on above: Performed By: #### C BC #### [facility] [address] [address] [address] Katrin Ceja Potassium [Moles/Vol] 4.0 mmol/L Normal 3.4-5.0 [facility] Comment on above: Performed By: #### C BC #### [facility] [address] [place] [address] Dr. Katrin Ceja Protein [Mass/Vol] 8.5 g/dL Critically high 6.1-8.2 [facility] Comment on above: Performed By: #### C BC #### [facility] [address] [place] [address] Dr. Katrin Ceja Sodium [Moles/Vol] 134 mmol/L Critically low 137-145 [facility] Comment on above: Performed By: #### C BC #### [facility] [address] [place] [address] Dr. Katrin Ceja Urea nitrogen [Mass/Vol] 6.0 mg/dL Critically low 7.0-17.0 [facility] Comment on above: Performed By: #### C BC #### [facility] [address] [place] [address] Dr. Katrin Ceja Urea nitrogen/Creatinine [Mass ratio] 7.2 mg/mg Normal [facility] Comment on above: Performed By: #### C BC #### [facility] [address] [place] [address] Dr. Katrin Ceja XR CHEST 1 Von [...] by: HILDA GU Date: 2021-04-28 23:45 Normal [facility] Acetaminophen (Tylenol) Leve kit 03-22-2019 Acetaminophen [Mass/Vol] <10 Normal 10.0-30.0 [facility] Comment on above: Performed By: #### 1 4581-3, 95856-4, 63689-8, 18140-6z3, 13505-1, 65548-9 #### [facility] [address], [place] Alcohol (Ethanol) Levelon Ethanol [Mass/Vol] mg/dL Normal 0.00-0.00 [facility] Comment on above: Performed By: #### 1 4581-3, 18797-0, 40750-9, 88358-1l7, 37512-8, 26662-3 #### [facility] [address], [place] CBC with Differentialon Basophils (Bld) [#/Vol] 0.10 thou/mcL Normal 0.00-0.20 [facility] Comment on above: Performed By: #### 5 7021-8 #### [facility] [address], [place] Basophils/100 WBC (Bld) 0.7 % Normal 0.0-2.0 [facility] Comment on above: Performed By: #### 5 7021-8 #### [facility] [address], [place] Eosinophils (Bld) [#/Vol] 0.40 thou/mcL Normal 0.00-0.70 [facility] Comment on above: Performed By: #### 5 7021-8 #### [facility] [address] [place], [place] Eosinophils/100 WBC (Bld) 3.7 % Normal 0.0-7.0 [facility] Comment on above: Performed By: #### 5 7021-8 #### [facility] [address] [place], [place] Erythrocyte distribution width (RBC) [Entitic vol] 12.6 % Normal 11.0-14.8 [facility] Comment on above: Performed By: #### 5 7021-8 #### [facility] [address] [place], [place] Hematocrit (Bld) [Volume fraction] 38.5 % Normal 35.0-45.0 [facility] Comment on above: Performed By: #### 5 7021-8 #### [address] Hemoglobin (Bld) [Mass/Vol] 13.3 g/dL Normal 12.0-16.0 [facility] Comment on above: Performed By: #### 5 7021-8 #### [facility] [address] [place] [address] Lymphocytes (Bld) [#/Vol] 3.10 thou/mcL Normal 1.00-4.80 [facility] Comment on above: Performed By: #### 5 7021-8 #### [facility] [address], [place] Lymphocytes/100 WBC (Bld) 30.1 % Normal 22.0-44.0 [facility] Comment on above: Performed By: #### 5 7021-8 #### [facility] [address] [place], [place] MCH (RBC) [Entitic mass] 30.8 Picograms Normal 27.0-34.0 [facility] Comment on above: Performed By: #### 5 7021-8 #### [facility] [address] [place], [place] MCHC (RBC) [Mass/Vol] 34.7 g/dL Normal 32.0-36.0 [facility] Comment on above: Performed By: #### 5 7021-8 #### [facility] [address], [place] MCV (RBC) [Entitic vol] 88.8 fL Normal 80.0-97.0 [facility] Comment on above: Performed By: #### 5 7021-8 #### [facility] [address], [place] Monocytes (Bld) [#/Vol] 1.10 thou/mcL High 0.00-0.90 [facility] Comment on above: Performed By: #### 7021-8 #### [address] [place], [place] Monocytes/100 WBC (Bld) 10.4 % Normal 0.0-12.0 [facility] Comment on above: Performed By: #### 7021-8 #### [address] Neutrophils (Bld) [#/Vol] 5.60 thou/mcL Normal 1.80-7.70 [facility] Comment on above: Performed By: #### 7021-8 #### [facility] Neutrophils/100 WBC (Bld) 55.1 % Normal 40.0-70.0 [facility] Comment on above: Performed By: #### 5 7021-8 #### [facility] [address] [place] [address] Platelet mean volume (Bld) [Entitic vol] 7.5 fL Normal 6.2-12.1 [facility] Comment on above: Performed By: #### 5 7021-8 #### [facility] [address] [place], [place] Platelets (Bld) [#/Vol] 280 thou/mcL Normal 142-424 [facility] Comment on above: Performed By: #### 5 7021-8 #### [facility] [address] [place] [address] RBC (Bld) [#/Vol] 4.33 million/mcL Normal 3.80-5.[address] [facility] Comment on above: Performed By: #### 5 7021-8 #### [facility] [address], [place] WBC (Bld) [#/Vol] 10.2 thou/mcL Normal 4.6-10.2 [facility] Comment on above: Performed By: #### 5 7021-8 #### [facility] [address] [place], [place] Comprehensive Metabolic Pane kit 03-22-2019 Albumin [Mass/Vol] 4.2 g/dL Normal 3.5-4.8 [facility] Comment on above: Performed By: #### 1 4581-3, 65942-3, 65476-6, 65208-6r5, 38396-2, 58426-4 #### [facility] [address] [place], [place] ALP [Catalytic activity/Vol] 96 Units/L High 32-91 [facility] Comment on above: Performed By: #### 1 4581-3, 01376-2, 54635-7, 02393-9a5, 50214-5, 41701-3 #### [facility] [address], [place] ALT [Catalytic activity/Vol] 25 Units/L Normal 14-63 [facility] Comment on above: Performed By: #### 1 4581-3, 77788-6, 71064-5, 52377-2d7, 26079-4, 02987-3 #### [facility] [address] [place], [place] Anion gap [Moles/Vol] 9.0 mmol/L Normal 6.0-18.0 [facility] Comment on above: Performed By: #### 1 4581-3, 75127-0, 78862-6, 78918-9c3, 64199-4, 95168-9 #### [facility] [address] [place], [place] AST [Catalytic activity/Vol] 24 Units/L Normal 15-41 [facility] Comment on above: Performed By: #### 1 4581-3, 79325-2, 56747-7, 38040-8a7, 44328-0, 53005-7 #### [facility] [address] [place], [place] Bilirubin [Mass/Vol] 0.5 mg/dL Normal 0.3-1.2 [facility] Comment on above: Performed By: #### 1 4581-3, 30852-4, 35268-5, 47958-2g2, 13528-9, 93175-0 #### [facility] [address] [place], [place] Calcium [Mass/Vol] 8.9 mg/dL Normal 8.9-10.3 [facility] Comment on above: Performed By: #### 1 4581-3, 65220-7, 86319-9, 90501-8u7, 46739-0, 47767-0 #### [facility] [address] [place], [place] Chloride [Moles/Vol] 107 mmol/L Normal 98-107 [facility] Comment on above: Performed By: #### 1 4581-3, 08501-6, 97331-0, 82955-0e3, 39221-5, 46099-9 #### [facility] [address] [place], [place] CO2 [Moles/Vol] 23 mmol/L Normal 22-32 [facility] Comment on above: Performed By: #### 1 4581-3, 86460-4, 21101-2, 32935-6i7, 17448-5, 67776-0 #### [facility] [address] [place], [place] Creatinine [Mass/Vol] 0.68 mg/dL Normal 0.60-1.30 [facility] Comment on above: Performed By: #### 1 4581-3, 09692-2, 42816-9, 51848-9c8, 16624-8, 10315-8 #### [facility] [address] [place], [place] Glucose [Mass/Vol] 90 mg/dL Normal 70-99 [facility] Comment on above: Result Comment: U pdated ADA Reference Range A normal fasting glucose concentration is less than 100 mg/dL. An impaired fasting glucose concentration is 100-125 mg/dL. A provisional diagnosis of diabetes mellitus can be made when a fasting glucose concentration is greater than 125 mg/dL. Performed By: #### 1 4581-3, 64702-3, 77226-7, 75068-8d5, 88331-4, 05753-6 #### [facility] [address] [place], [place] Potassium [Moles/Vol] 3.4 mmol/L Low 3.6-5.1 [facility] Comment on above: Performed By: #### 1 4581-3, 49726-3, 76646-6, 09508-9b1, 14646-6, 70778-5 #### [facility] [address] [place], [place] Protein [Mass/Vol] 7.4 g/dL Normal 6.1-7.9 [facility] Comment on above: Performed By: #### 1 4581-3, 29270-9, 21428-6, 71505-9y3, 30624-2, 56320-1 #### [facility] [address] [place], [place] Sodium [Moles/Vol] 139 mmol/L Normal 136-145 [facility] Comment on above: Performed By: #### 1 4581-3, 29135-9, 98453-8, 06789-6i7, 17233-0, 66625-6 #### [facility] [address] [place], [place] Urea nitrogen (BldV) [Mass/Vol] 17 mg/dL Normal 8-20 [facility] Comment on above: Performed By: #### 1 4581-3, 38956-6, 19522-1, 91796-2c8, 16979-3, 22397-7 #### [facility] [address] [place], [place] Drug Abuse Screen 8 Urineon 03-22-2019 Barbiturates Screen Ql (U) Negative Normal [facility] Comment on above: Performed By: #### 1 2286-1 #### [facility] [address] [place], [place] Amphetamines Ql (U) Positive Abnormal [facility] Comment on above: Result Comment: Conf irmatory testing available upon request. Performed By: #### 1 2286-1 #### [facility] [address] [place], [place] Benzodiazepines cutoff Screen (U) [Mass/Vol] Negative [facility] Comment on above: Performed By: #### 1 2286-1 #### [facility] [address] [place], [place] Cocaine Ql (U) Positive Abnormal [facility] Comment on above: Result Comment: Conf irmatory testing available upon request. Performed By: #### 1 2286-1 #### [facility] [address] [place], [place] Interpretation and review of laboratory results Negative Normal [facility] Comment on above: Performed By: #### 1 2286-1 #### [facility] [address] [place], [place] Methadone Screen Ql (U) Negative Normal NEGATIVE-N EGATIVE [facility] Comment on above: Performed By: #### 1 2286-1 #### [facility] [address] [place], [place] Opiates Screen Ql (U) Negative Normal [facility] Comment on above: Result Comment: INTE [...] Performed By: #### 1 2286-1 #### [address] Tetrahydrocannabinol Screen Ql (U) Positive Abnormal [facility] Comment on above: Result Comment: Conf irmatory testing available upon request. Performed By: #### 1 2286-1 #### [address] ED Pat Eduon 03-22-2019 ED Pat Edu [address] [address] Emergency Department Discharge Instructions JENNIFER AGUILLON , [...] [facility] Name JENNIFER AGUILLON MRN (COL)-[id number] PLEASE READ THE FOLLOWING REGARDING YOUR MEDICATIONS [...] doses are changed, or new medications (including sxyb-boo-axpefqr products) are added. If you have any [...] UNTIL YOU TALK TO YOUR DOCTOR None [place] [address] Emergency Department Discharge Instructions Name: JENNIFER AGUILLON Current Date: 03/22/2019 19:32:22 : 1995 Primary Physician: Physician, No PCP We would like to thank you for choosing [facility] for your emergency medical needs. We [...] and the health of those around you. [facility] offers many resources to help with smoking cessation. Call the [place] Tobacco Quit Line at 5-267-MGSD-NOW ( ). High blood pressure: Your screening [...] deadly infections. Discuss this with your child's operator control room, or Public Health Department. Your family practice doctor can determine if you need pneumonia or flu vaccine. The [facility] Department can be reached at . Substance Abuse Program: Concerns with addiction to alcohol, benzodiazepines (Ativan or Xanax) and Opiates (Heroin, Percocet, OxyContin, Methadone or Fentanyl)? [facility] [place] offers an inpatient Substance Abuse Program to help treat the symptoms associated with medical detoxification of addictive substances. The new program offers care for non- adults (18 and older) looking to break the chain to addictive chemicals. The Substance Abuse Program is a voluntary inpatient admission and it starts with a pre-screening phone call to a executive secretary social welfare. During the call, goals and objectives for recovery and how the patient will transition to outpatient care will be established. Please call [phone] to get help today. Domestic Violence: If you are a victim of domestic violence (physical, verbal, or emotional), you are not alone. Discuss this with your physician or a friend and call the [place] Domestic Violence Hotline or [place] Domestic Violence Hotline for assistance and support. [...] physician, call the Physician Referral Line at [phone] 187-PMQB (6286). Suicide Hotline: Your mental and emotional well-being is important. If you are in a mental health crisis or are having thoughts of suicide, please call the nationwide suicide hotline, anytime day or night, at 3-844-590-QLLU (0268). Community Occupational Therapy Instructor: You may be contacted by your local fire department for a follow up visit from a community supervisor aluminum fabrication. The community supervisor aluminum fabrication can help with a home safety check; follow up care, and general home care management. Pharmacy Information: Below is a list of 24 hour pharmacies that we are aware of. We suggest that you call the specific pharmacy for their hours before traveling to a location. Hours may vary on holidays. [facility] [address], [place] [phone] [place] [phone] [place] [address] [phone] [address] [phone], [place] [phone] [address] [address] [phone] [address] [phone] Take all medications as directed. If you need prescription assistance, contact the following agencies: ?? [facility] for Prescription Assistance at or www.[email or web address] ?? [place] Rx at or [email or web address] ?? [email or web address] is a site with many valuable coupons [...] Patient Signature Date Time Provider Signature Normal [facility] GFRaaon 03-22-2019 GFR/1.73 sq M predicted among blacks MDRD (S/P/Bld) [Vol rate/Area] mL/min/{1.73_m2} Normal [facility] Comment on above: Result Comment: The MDRD equation has not been validated for those over 70 years, women, patients with serious co-morbid conditions, or with extremes of body size, muscle mass of nutritional status. Performed By: #### 1 4581-3, 19049-5, 53437-5, 72266-1u2, 88519-2, 07351-4 #### [facility] [address], [place] GFRbbon 03-22-2019 GFR/1.73 sq M predicted among non-blacks MDRD (S/P/Bld) [Vol rate/Area] mL/min/{1.73_m2} Normal [facility] Comment on above: Performed By: #### 1 4581-3, 74805-1, 86174-1, 26649-5u8, 24620-6, 74313-9 #### [address] Test Urineon 03-22 HCG ( test) Ql (U) Negative Normal [facility] Comment on above: Performed By: #### 2 106-3 #### [facility], [address] [place] [address] Salicylate Levelon 9 Salicylates [Mass/Vol] mg/dL Normal 2.8-30.0 Mo [facility] Comment on above: Performed By: #### 1 4581-3, 57686-0, 66039-9, 92513-2w5, 15029-7, 80246-3 #### [facility] [address] [place] [address] Medication Managementon 10-0 Medication Management [id number] F [facility] ED Clinical Summaryon 2017 ED Clinical Summary [facility] - Emergency [address] [place] [address] ed Clinical SummaryPERSON INFORMATIONName: JENNIFER AGUILLON Age: 22 Years Sex: FEMALEDOB: [birth year] MRN: Acct#:Visit Reason: Dental pain; Dental pain; DENTAL PAIN Arrival: 04/11/18 20:21:00 Discharge: 04/11/18 20:55:00LOS: 000 00:34 Check In: 04/11/18 20:21:00 Checkout:04/11/18 20:55:00Address:[address] [facility] [address]EMV: SOLOMON WATTSPROVIDER INFORMATIONProvider Role Assigned UnassignedAlistair Max [...] 04/11/18 20:29:00.Dental caries, dental painHistory of Present Ymgistq68-zhcc-onq white female presents to the emergency room [...] her poor dental state..Impression and PlanDiagnosisDental caries (TFY99-FD K02.9, Discharge, Medical)Pain, dental (VOR07-YQ K08.89, Discharge, Medical)PlanCondition: Improved, Stable.Disposition: Discharged: to home.Prescriptions: Launch prescriptionsPharmacy:tra MADol 50 mg oral tablet (Prescribe): 50 mg = 1 tab(s), PO, q4hr, PRN: as needed for pain, 12 tab(s), 0 Refill(s)amoxicillin 500 mg oral capsule (Prescribe): 1,000 mg = 2 cap(s), PO, BID, 40 cap(s), 0 Refill(s).Patient was given the following educational materials: Dental Pain, Hbwc-zy-Jysj, Dental Caries, Adult, Ohnv-hc-Jtrc, Dental Caries, Adult, Wiaa-xx-Jhsx, Dental Pain, Wioy-kw-Lgso.Follow up with: SOLOMON WATTS Within 3 to 5 days.Counseled: Patient, Regarding diagnosis, Regarding treatment plan, Regarding prescription, Patient indicated understanding of instructions.DISCHARGE INFORMATION:Discharge Disposition: HomeDischarge Location: HomePATIENT EDUCATION INFORMATIONInstructions: Dental Caries, Adult, Nxun-ss-Fbcz; Dental Pain, Yvok-wu-ZnojYvnhrm-Up:Chelsey h: Address: When:SOLOMON WATTS [address] [place] [address] [facility] (1) Within 3 to 5 daysDIAGNOSIS:Dental caries; Dental pain; Pain, dentalPatient Understands: Yes - Patient/family/caregiver verbalizes understanding of instructions givenComment: [facility] ED Note - Physicianon 2017 ED Note - Physician Patient: DOMINIC AGUILLON : 22 years Sex: FEMALE : [birth year]Associated Diagnoses: Dental caries; Pain, dentalAuthor: Alistair Maxsikeyla InformationTime seen: Date & time 04/11/18 20:29:00.Dental caries, dental painHistory of Present Jaurree31-vhtw-xce white female presents to the emergency room [...] her poor dental state..Impression and PlanDiagnosisDental caries (VWD21-PJ K02.9, Discharge, Medical)Pain, dental (LFP33-KF K08.89, Discharge, Medical)PlanCondition: Improved, Stable.Disposition: Discharged: to home.Prescriptions: Launch prescriptionsPharmacy:tra MADol 50 mg oral tablet (Prescribe): 50 mg = 1 tab(s), PO, q4hr, PRN: as needed for pain, 12 tab(s), 0 Refill(s)amoxicillin 500 mg oral capsule (Prescribe): 1,000 mg = 2 cap(s), PO, BID, 40 cap(s), 0 Refill(s).Patient was given the following educational materials: Dental Pain, Emcl-ys-Xfdw, Dental Caries, Adult, Fedq-hg-Yhtg, Dental Caries, Adult, Ojpd-lj-Vhws, Dental Pain, Zofk-gm-Wnsp.Follow up with: SOLOMON WATTS Within 3 to 5 days.Counseled: Patient, Regarding diagnosis, Regarding treatment plan, Regarding prescription, Patient indicated understanding of instructions.[Matt ortiz Signed on: 04/11/2018 20:42 EDT] Alistair Salomon MD[Verified on: 04/11/2018 20:42 EDT] Alistair Salomon MD [facility] ED Patient Education Noteon 04-11-2018 ED [...] mouth and teeth. This keeps them healthy.? [place] your teeth 2 times a day. Use toothpaste with fluoride in it.? Floss your teeth once a day.? If your dentist prescribed an antibiotic medicine to treat an infection, take it as told. Do not stop taking the antibiotic even if your condition gets better.? Keep all follow-up visits as told by your dentist. This is important. This includes all cleanings.Preventing dental caries? [place] your teeth every morning and night. Use [...] Reviewed: 03/17/2017[employer] Patient Education ? 2017 [employer].Dental PainDental pain may be caused by many [...] Reviewed: 06/27/2015[employer] Patient Education ? 2018 [employer]. Normal [facility] ED Patient Summaryon 018 ED Patient Summary [facility] [address] [place] [address] pATIENT DISCHARGE INSTRUCTIONSPatient InformationName: JENNIFER AGUILLON Age: 22 YearsDate of : [birth year]MRN: For Visit: Dental pain; Dental pain; DENTAL PAINArrival Time: 04/11/18 20:21:00Phone: Primary Care Physician: Maryam WATTS Physician: Alistair Max MDComment:Visit Diagnosis:Diagnoses This Visit Dental caries (K02.9) Dental pain (K08.8) Dental pain ([id number]) Dental pain ([id number]) Pain, dental (K08.89)If you received any narcotics, [...] sign any legal documentsWith: Address: When:SOLOMON WATTS [address] [place], [place] [address]k[place], [place] [address] Business (1) Within 3 to 5 daysMedication Information:The exam and treatment you received today in the [facility] Emergency Department were for an urgent problem and are not intended as complete care. It is important for you to follow up with a doctor, nurse practitioner, or physician?s welder assistant for ongoing care. If your symptoms [...] number so we can reach you if necessary.[facility] has provided you with a complete list of medications post discharge. Please inform your primary clinician/provider of your visit and for further instruction [...] mouth and teeth. This keeps them healthy.? [place] your teeth 2 times a day. Use toothpaste with fluoride in it.? Floss your teeth once a day.? If your dentist prescribed an antibiotic medicine to treat an infection, take it as told. Do not stop taking the antibiotic even if your condition gets better.? Keep all follow-up visits as told by your dentist. This is important. This includes all cleanings.Preventing dental caries? [place] your teeth every morning and night. Use [...] Reviewed: 03/17/2017[employer] Patient Education ? 2017 [employer]Dental PainDental pain may be caused by [...] Reviewed: 06/27/2015[employer] Patient Education ? 2018 [employer]. Viruses or BacteriaWhat?s got you sick?Antibiotics only [...] Antibiotics [place]. Department of Health and Human ServicesSt[facility] Hospitalers for Disease Control and Prevention March 2014 [facility] Vital Signs Date Time Vital Sign Value Performing Clinician Facility 05-28-2024 14:27-0500 Body height 167.6 cm Radha Santoyo DO Work Phone: [facility] 05-28-2024 14:27-0500 Body mass index (BMI) [Ratio] 34.49 kg/m2 Radha Santoyo DO Work Phone: [facility] 05-28-2024 14:27-0500 Body weight 96.93 kg Radha Santoyo DO Work Phone: [facility] 05-28-2024 14:27-0500 Diastolic blood pressure 83 mm[Hg] Radha Santoyo DO Work Phone: [facility] 05-28-2024 14:27-0500 Heart rate 96 /min Radha Santoyo DO Work Phone: [facility] 05-28-2024 14:27-0500 SaO2% (BldA) [Mass fraction] 96 % Radha Santoyo DO Work Phone: [facility] 05-28-2024 14:27-0500 Systolic blood pressure 136 mm[Hg] Radha Santoyo DO Work Phone: [facility] 05-19-2024 09:42-0500 Body mass index (BMI) [Ratio] 35.02 kg/m2 Kenia Menaoll BUG TRIMMER Work Phone: [facility] 05-19-2024 09:42-0500 Body weight 98.43 kg Kenia Menaoll BUG TRIMMER Work Phone: [facility] 05-19-2024 09:42-0500 Diastolic blood pressure 74 mm[Hg] Kenia Felix BUG TRIMMER Work Phone: [facility] 05-19-2024 09:42-0500 Systolic blood pressure 128 mm[Hg] Kenia Felix BUG TRIMMER Work Phone: [facility] 03-19-2024 00:22-0400 Diastolic blood pressure 81 mm[Hg] [facility] 03-19-2024 00:22-0400 Heart rate 97 /min [facility] 03-19-2024 00:22-0400 Respiratory rate 18 /min [facility] 03-19-2024 00:22-0400 SaO2% (BldA) [Mass fraction] 98 % [facility] 03-19-2024 00:22-0400 Systolic blood pressure 113 mm[Hg] [facility] 03-18-2024 21:56-0400 Body temperature 98.2 [degF] [facility] 03-18-2024 21:54-0400 Body height 167.64 cm [facility] 03-18-2024 21:54-0400 Body weight 97.52 kg [facility] 03-05-2024 12:39-0400 Body height 167.64 cm [facility] 03-05-2024 12:39-0400 Body mass index (BMI) [Ratio] 37.1 kg/m2 [facility] 03-05-2024 12:39-0400 Body temperature 97.6 [degF] [facility] 03-05-2024 12:39-0400 Body weight 104.32 kg [facility] 03-05-2024 12:39-0400 Diastolic blood pressure 84 mm[Hg] [facility] 03-05-2024 12:39-0400 Heart rate 90 /min [facility] 03-05-2024 12:39-0400 Respiratory rate 18 /min [facility] 03-05-2024 12:39-0400 SaO2% (BldA) [Mass fraction] 99 % [facility] 03-05-2024 12:39-0400 Systolic blood pressure 118 mm[Hg] [facility] 05-07-2023 13:15-0400 Body height 167.64 cm Key Patel Other [facility] 05-07-2023 13:15-0400 Body mass index (BMI) [Ratio] 37.54 kg/m2 Key Ladd [facility] Other 05-07-2023 13:15-0400 Body temperature 97.8 [degF] Key Patel Other [facility] Other 05-07-2023 13:15-0400 Body weight 105.51 kg Key Patel Other [facility] Other 05-07-2023 13:15-0400 Respiratory rate 18 /min Key Patel Other [facility] Other 05-07-2023 13:15-0400 SaO2% (BldA) [Mass fraction] 98 % Key Patel Other [facility] Other 11-08-2022 13:50-0400 Body height 167.64 cm Chase Saldana Other [facility] Other 11-08-2022 13:50-0400 Body mass index (BMI) [Ratio] 35.51 kg/m2 Chase Saldana Other [facility] Other 11-08-2022 13:50-0400 Body weight 99.79 kg Chase Saldana Other [facility] Other 04-26-2022 11:55-0400 Body height 167.64 cm Autumn Marley Other [facility] Other 04-26-2022 11:55-0400 Body mass index (BMI) [Ratio] 35.02 kg/m2 Autumn Marley Other [facility] Other 04-26-2022 11:55-0400 Body temperature 97.7 [degF] Autumn Marley Other [facility] Other 04-26-2022 11:55-0400 Body weight 98.43 kg Autumn Marley Other [facility] Other 04-26-2022 11:55-0400 Diastolic blood pressure 82 mm[Hg] Autumn Marley Other [facility] Other 04-26-2022 11:55-0400 Respiratory rate 18 /min Autumn Marley Other [facility] Other 04-26-2022 11:55-0400 SaO2% (BldA) [Mass fraction] 98 % Autumn Marley Other [facility] Other 04-26-2022 11:55-0400 Systolic blood pressure 122 mm[Hg] Autumn Marley Other [facility] Other 04-23-2022 10:50-0400 Body height 167.64 cm Autumn Marley Other [facility] Other 04-23-2022 10:50-0400 Body mass index (BMI) [Ratio] 33.89 kg/m2 Autumn Marley Other [facility] Other 04-23-2022 10:50-0400 Body temperature 97.8 [degF] Autumn Marley Other [facility] Other 04-23-2022 10:50-0400 Body weight 95.26 kg Autumn Marley Other [facility] Other 04-23-2022 10:50-0400 Respiratory rate 18 /min Autumn Marley Other [facility] Other 04-23-2022 10:50-0400 SaO2% (BldA) [Mass fraction] 98 % Autumn Marley Other [facility] Other 03-27-2022 10:15-0400 Body height 167.64 cm Deb Simon Other [facility] Other 03-27-2022 10:15-0400 Body mass index (BMI) [Ratio] 34.38 kg/m2 Deb Simon Other [facility] Other 03-27-2022 10:15-0400 Body temperature 97.4 [degF] Deb Simon Other [facility] Other 03-27-2022 10:15-0400 Body weight 96.62 kg Deb Simon Other [facility] Other 03-27-2022 10:15-0400 Respiratory rate 18 /min Deb Simon Other [facility] Other 03-27-2022 10:15-0400 SaO2% (BldA) [Mass fraction] 96 % Deb Simon Other [facility] Other 04-05-2021 16:10-0400 Body height 167.64 cm Lucinda Salgado Other [facility] Other 04-05-2021 16:10-0400 Body mass index (BMI) [Ratio] 33.25 kg/m2 Lucinda Salgado Other [facility] Other 04-05-2021 16:10-0400 Body temperature 97.3 [degF] Lucinda Salgado Other [facility] Other 04-05-2021 16:10-0400 Body weight 93.44 kg Lucinda Salgado Other [facility] Other 04-05-2021 16:10-0400 Diastolic blood pressure 74 mm[Hg] Lucinda Salgado Other [facility] Other 04-05-2021 16:10-0400 Respiratory rate 18 /min Lucinda Salgado Other [facility] Other 04-05-2021 16:10-0400 SaO2% (BldA) [Mass fraction] 99 % Lucinda Salgado Other [facility] Other 04-05-2021 16:10-0400 Systolic blood pressure 111 mm[Hg] Lucinda Salgado Other [facility] Other Encounters Encounter Date Encounter Type Care Provider Facility Start: 05-28-2024 End: 05-28-2024 ambulatory [facility] Start: 05-28-2024 End: 05-28-2024 Office outpatient new 45 minutes Radha M Yarelis DO Work Phone: [facility] Comment on above: Chronic cough (Prima ry Dx); Mild intermittent asthma in adult without complication Start: 05-28-2024 End: 05-28-2024 ambulatory [facility] Start: 05-22-2024 ambulatory NON STAFF Facility:[facility] Start: 05-19-2024 End: 05-19-2024 Bamboo flowsheet Kenia Washington BUG TRIMMER Work Phone: [facility] Start: 05-19-2024 End: 05-19-2024 Bamboo flowsheet Kenia Washington BUG TRIMMER Work Phone: [facility] [place] [facility] Start: 05-19-2024 End: 05-19-2024 Office outpatient visit 25 minutes Kenia Washington BUG TRIMMER [facility] Comment on above: Seizures (CMS/HCC) ( Primary Dx); Mood disorder (CMS/HCC); Chronic migraine without aura without status migrainosus, not intractable (CMS/HCC); Chronic bilateral low back pain, unspecified whether sciatica present; Paresthesia of both lower extremities; Fatty infiltration of bone marrow Start: 05-19-2024 End: 05-19-2024 ambulatory KENIA WASHINGTON Not Available Start: 05-13-2024 End: 05-13-2024 Emergency department patient visit [facility] Start: 05-11-2024 End: 05-11-2024 Patient encounter procedure [facility] Work Phone: Start: 05-11-2024 End: 05-11-2024 ambulatory NON STAFF [facility] Work Phone: Start: 2024 End: 2024 ambulatory RADHA Rodgers [facility] Start: 04-30-2024 End: 04-30-2024 Emergency department patient visit [facility] Start: 04-28-2024 Registered [facility] Start: 04-28-2024 End: 04-28-2024 ambulatory [facility] Start: 04-14-2024 ambulatory KENIAGUSTAVO WASHINGTON [facility] Start: 04-01-2024 End: 04-01-2024 ambulatory KENIA WASHINGTON Not Available Start: 03-18-2024 End: 03-19-2024 Emergency department patient visit [facility] Work Phone: Start: 03-18-2024 End: 03-18-2024 ambulatory NON STAFF [facility] Work Phone: Start: 03-18-2024 End: 03-18-2024 Patient encounter procedure [facility] Work Phone: Start: 03-10-2024 ambulatory KENIA WASHINGTON [facility] Start: 03-06-2024 Registered Rec[facility]ring [facility] Start: 03-05-2024 End: 03-05-2024 ambulatory NON STAFF [facility] Work Phone: Start: 03-05-2024 End: 03-05-2024 Patient encounter procedure Pending [facility] Work Phone: Start: 03-05-2024 End: 03-05-2024 ambulatory KAMLA DAVID Not Available Start: 02-27-2024 End: 02-27-2024 ambulatory KENIA WASHINGTON Not Available Start: 02-13-2024 End: 02-14-2024 Emergency department patient visit [facility] Start: 02-12-2024 End: 02-12-2024 ambulatory COLÓN FADOCD Not Available Start: 02-07-2024 Registered [facility] Start: 02-03-2024 End: 02-03-2024 ambulatory COLÓN FAWWAD Not Available Start: 01-30-2024 End: 01-30-2024 ambulatory KENIA WASHINGTON Not Available Start: 01-09-2024 End: 01-09-2024 ambulatory KENIA WASHINGTON Not Available Start: 01-02-2024 End: 01-02-2024 ambulatory MARY Asia WIGGINS Not Available Start: 12-28-2023 End: 12-29-2023 Emergency department patient visit [facility] Start: 12-16-2023 End: 12-16-2023 ambulatory SHAIKH SHAREED Not Available Start: 12-11-2023 End: 12-11-2023 Emergency department patient visit [facility] Start: 12-10-2023 End: 12-10-2023 ambulatory KAMLA DAVID Not Available Start: 12-05-2023 End: 12-05-2023 ambulatory KAMLA DAVID Not Available Start: 12-05-2023 End: 12-05-2023 ambulatory MARY Betancourt WIGGINS Not Available Start: 12-02-2023 End: 12-02-2023 ambulatory PALMA GUY Not Available Start: 11-26-2023 End: 11-26-2023 ambulatory SHAIKH KORIN Not Available Start: 11-25-2023 End: 11-26-2023 Emergency department patient visit [facility] Start: 11-25-2023 End: 11-27-2023 Emergency department patient visit [facility] Start: 11-21-2023 End: 11-21-2023 ambulatory MARY Betancourt WIGGINS Not Available Start: 11-16-2023 End: 11-16-2023 Emergency department patient visit [facility] Start: 10-30-2023 End: 10-30-2023 ambulatory JOHN HADDAD Not Available Start: 10-15-2023 End: 10-15-2023 ambulatory SHAIKH KORIN Not Available Start: 10-09-2023 End: 10-09-2023 Emergency department patient visit [facility] Start: 09-21-2023 End: 09-22-2023 Emergency department patient visit [facility] Start: 09-21-2023 End: 09-22-2023 Emergency department patient visit [facility] Start: 08-27-2023 End: 08-27-2023 Emergency department patient visit [facility] Start: 07-09-2023 End: 07-09-2023 Emergency department patient visit [facility] Start: 05-07-2023 End: 05-07-2023 ambulatory Key Patel Other [facility] Other Start: 05-07-2023 Office outpatient vi sit 15 minutes Key Patel [facility] Start: 02-19-2023 ambulatory COLÓN FAAsiaWAD Facility: [place] Start: 11-08-2022 Office outpatient vi sit 15 minutes Chase Saldana [facility] Start: 11-08-2022 End: 11-08-2022 ambulatory Chase Saldana Other [facility] Other Start: 11-08-2022 End: 11-08-2022 Departed Referred PA-C Chase Saldana Work Phone: [facility] Work Phone: Start: 04-26-2022 End: 04-26-2022 ambulatory Autumn Donell Other [facility] Other Start: 04-26-2022 Office outpatient vi sit 15 minutes Autumn Donell [facility] Start: 04-23-2022 End: 04-23-2022 ambulatory Autumn Donell Other [facility] Other Start: 04-23-2022 Office outpatient vi sit 15 minutes Autumn Donell [facility] Start: 04-03-2022 End: 04-03-2022 ambulatory COLÓN H FAWWAD Facility: Start: 03-27-2022 End: 03-27-2022 ambulatory Deb Simon Other [facility] Other Start: 03-27-2022 Office outpatient vi sit [...] outpatient vi sit 15 minutes Lucinda Salgado [facility] Start: 04-12-2018 End: 04-12-2018 Patient encounter [facility] Facility:[facility] Start: 04-11-2018 End: 04-12-2018 Emergency department patient visit [facility] Facility:[facility] Procedures Date Procedure Procedure Detail Performing Clinician Start: 05-11-2024 MR lumbar spine wo con Start: 05-11-2024 MRI of head Plan of Treatment Date Care Activity Detail Author Start: 05-28-2025 Adult BMI Screening Adult BMI Screen ing [facility] Start: 05-28-2025 Tobacco Screening Tobacco Screening [facility] Start: 12-09-2024 End: 12-09-2024 Patient encounter procedure 12/09/2024 2:00 PM EDT Office Visit [facility] [address] [place] [address] Palma Guy PA [address] [place] [address] [facility] Start: 07-21-2024 End: 07-21-2024 Patient encounter procedure 07/21/2024 11:00 AM EST Office Visit [facility] [address] [place] [id number] Kenia Washington NP [address] [place] [address] [facility] [address] Start: 05-19-2024 End: 05-19-2024 Patient encounter procedure 05/19/2024 9:40 AM EST [facility] [address] [place] [id number] Kenia Washington NP [address] [place] [address] Seizures (CMS/HCC) (Primary Dx); Mood disorder (CMS/HCC); Episodic migraine (CMS/HCC); Chronic bilateral low back pain, unspecified whether sciatica present; Paresthesia of both lower extremities; Fatty infiltration of bone marrow [facility] [address] Comment on above: Seizures (CMS/HCC) ( Primary Dx); Mood disorder (CMS/HCC); Episodic migraine (CMS/HCC); Chronic bilateral low back pain, unspecified whether sciatica present; Paresthesia of both lower extremities; Fatty infiltration of bone marrow Start: 03-15-2024 COVID-19 Vaccine ( season) COVID-19 Vaccine ( season) [facility] Start: 03-15-2024 Influenza vaccination [facility] Start: 2023 Screening for malign ant neoplasm of cervix [facility] Start: 11-08-2022 Bacteria identified in Urine by Culture Urine Culture [facility] Start: 2014 Screening for malign ant neoplasm of cervix Pap Smear [facility] Start: 2012 DTaP,Tdap and Td Vaccines (1 - Tdap) DTaP,Tdap and Td Vaccines (1 - Tdap) [facility] Start: 2011 Adult BMI Follow Up Plan Adult BMI Follow Up Plan [facility] Start: 2005 Depression Screening Depression Scre [facility] Patient Education Panic Attack ED [facility] Work Phone: Patient referral [facility] Work Phone: Immunizations Immunization Date Immunization Notes Care Provider Tank dacosta 10-25-2023 influenza, injectabl e, quadrivalent, preservative free Kenia Washington BUG TRIMMER Work Phone: [facility] 10-25-2023 influenza virus vaccine, unspecified formulation Kenia Washington BUG TRIMMER Work Phone: [facility] 04-23-2021 influenza, seasonal, injectable Kenia Washington BUG TRIMMER Work Phone: [facility] 03-28-2021 Moderna SARS-CoV-2 Vaccination Kenia Washington BUG TRIMMER Work Phone: [facility] 01-26-2020 Toradol per 15 mg Lucinda Dym ond Other [facility] Other 09-08-2019 Rocephin 500 mg Lucinda Dymon d Other [facility] Other 06-10-2018 Influenza, injectabl e, Madin Camila Canine Kidney, preservative free, quadrivalent Kenia Washington BUG TRIMMER Work Phone: [facility] 12-11-2011 human papilloma viru s vaccine, quadrivalent Kenia Washington BUG TRIMMER Work Phone: [facility] 11-09-2011 human papilloma viru s vaccine, quadrivalent Kenia Washington BUG TRIMMER Work Phone: [facility] Payers Date Payer Category Payer Medicaid [id number] 2022 Medicaid [id number] 2. 16.840.1.438164.19 2018 Unknown 1993 Unknown [id number] 2.16.84 0.1.705885.3.579.2.593 1993 Unknown [id number] 2.16.84 0.1.388069.3.579.2.593 1993 Unknown [id number] 2.16.84 0.1.578782.3.579.2.593 1993 Unknown [id number] 2.16.84 0.1.869490.3.579.2.593 1993 Unknown [id number] 2.16.84 0.1.716378.3.579.2.593 1993 Unknown [id number] 2.16.84 0.1.133073.3.579.2.593 1993 Unknown [id number] 2.16.84 0.1.576830.3.579.2.593 1993 Unknown [id number] 2.16.84 0.1.211056.3.579.2.593 1993 Unknown [id number] 2.16.84 0.1.718299.3.579.2.593 1993 Unknown [id number] 2.16.84 0.1.745141.3.579.2.593 1993 Unknown [id number] 2.16.84 0.1.396112.3.579.2.593 1993 Unknown [id number] 2.16.84 0.1.917996.3.579.2.593 1993 Unknown [id number] 2.16.84 0.1.205958.3.579.2.593 1993 Unknown [id number] 2.16.84 0.1.398801.3.579.2.593 1993 Unknown [id number] 2.16.84 0.1.741916.3.579.2.1259 1993 Unknown [id number] 2.16.84 0.1.561479.3.579.2.1259 1993 Unknown [id number] 2.16.84 0.1.097499.3.579.2.1259 1993 Unknown [id number] 2.16.84 0.1.801060.3.579.2.1259 1993 Unknown [id number] 2.16.84 0.1.745452.3.579.2.1259 1993 Unknown [id number] 2.16.84 0.1.943694.3.579.2.1259 1993 Unknown [id number] 2.16.84 0.1.510449.3.579.2.1259 1993 Unknown [id number] 2.16.84 0.1.190386.3.579.2.1259 1993 Unknown [id number] 2.16.84 0.1.485436.3.579.2.1259 1993 Unknown [id number] 2.16.84 0.1.276043.3.579.2.9 1993 Unknown [id number] 2.16.84 0.1.364584.3.579.2.1259 1993 Unknown [id number] 2.16.84 0.1.511109.3.579.2.9 1993 Unknown [id number] 2.16.84 0.1.051903.3.579.2.1259 1993 Unknown [id number] 2.16.84 0.1.510237.3.579.2.1259 1993 Unknown [id number] 2.16.84 0.1.113157.3.579.2.1259 1993 Unknown [id number] 2.16.84 0.1.883244.3.579.2.1259 1993 Unknown [id number] 2.16.84 0.1.795667.3.579.2.1259 1993 Unknown [id number] 2.16.84 0.1.725121.3.579.2.1259 1993 Unknown [id number] 2.16.8 40.1.197979.3.579.2.1286 1993 Unknown [id number] 2.16.8 40.1.930741.3.579.2.1286 1993 Unknown [id number] 2.16.8 40.1.100343.3.579.2.1286 1993 Unknown [id number] 2.16.8 40.1.605157.3.579.2.1286 1993 Unknown [id number] 2.16.8 40.1.949017.3.579.2.1286 1993 Unknown [id number] 2.16.8 40.1.609052.3.579.2.1286 1993 Unknown [id number] 2.16.8 40.1.966357.3.579.2.1286 1993 Unknown [id number] 2.16.8 40.1.070325.3.579.2.1286 1993 Unknown [id number] 2.16.8 40.1.364526.3.579.2.1286 1993 Unknown [id number] 2.16.8 40.1.374082.3.579.2.1286 1993 Unknown [id number] 2.16.8 40.1.037354.3.579.2.1286 1993 Unknown [id number] 2.16.8 40.1.113587.3.579.2.1286 1993 Unknown [id number] 2.16.8 40.1.954432.3.579.2.1286 1993 Unknown [id number] 2.16.8 40.1.641670.3.579.2.1286 1993 Unknown [id number] 2.16.8 40.1.424280.3.579.2.1286 1993 Unknown [id number] 2.16.8 40.1.634362.3.579.2.1286 1993 Unknown [id number] 2.16.8 40.1.847611.3.579.2.1286 1993 Unknown [id number] 2.16.8 40.1.468632.3.579.2.1286 1993 Unknown [id number] 2.16.8 40.1.259755.3.579.2.1286 1993 Unknown [id number] 2.16.8 40.1.585429.3.579.2.1286 1993 Unknown [id number] 2.16.8 40.1.915452.3.579.2.1286 1993 Unknown [id number] 2.16.8 40.1.268824.3.579.2.1286 1993 Unknown [id number] 2.16.84 0.1.570705.3.579.2.1286 1959 Self-pay 1959 Unknown [id number] 2.1 6.840.1.866666.19 1959 Unknown [id number] Unknown [facility] [id number] Unknown [id number] 2.16.8 40.1.816770.3.579.2.531 Unknown [id number] 2.16.8 40.1.364461.3.579.2.531 Unknown [id number] 2.16.8 40.1.026562.3.579.2.531 Social History Date Type Detail Facility Unknown if ever smoked [facility] Start: 08-16-2020 End: 04-01-2024 Sex Assigned At [facility] Start: 07-15-2007 End: 07-15-2021 Tobacco smoking status NEIS Smoker (finding) [facility] Start: 1995 Sex Assigned At Female [facility] Start: 03-05-2024 End: 05-28-2024 Tobacco smoking status NHIS Ex-smoker (finding) [facility] Start: 07-15-2007 End: 07-15-2021 History of [...] 05-28-2024 Alcoholic beverage intake Lifetime [facility]-drinker [facility] Frequency of Alcohol Consumption Never [facility] Start: 01-08-2022 Alcohol Comment OCCASSIONALLY [facility] Start: 02-17-2015 Sex Female (finding) [facility] NEGATED: Highlighted row [facility] Goals Date Patient Goal Desired Activity [...] also hospitalized. She was admitted here at [facility] and did not require transfer out but [...] Diagnosis Date ADHD Anxiety Asthma Bipolar disorder ([facility]) Bronchitis, chronic ([facility]) Bulging lumbar disc Depression Obesity Opiate abuse, episodic ([facility]) Panic disorder Psychogenic nonepileptic seizure 04/2024 PTSD (post-traumatic stress disorder) Past Surgical History: Procedure Laterality Date DILATION AND CURETTAGE, DIAGNOSTIC / THERAPEUTIC LAPAROSCOPIC CHOLECYSTECTOMY N/A 04/24/2021 Performed by Tripp Ferris MD at [facility] TONSILLECT[facility] Latex; Latex, natural rubber; Lamotrigine; Lexapro [escitalopram oxalate]; Adhesive; Clindamycin; Ibuprofen; Pristiq [desvenlafaxine succinate]; and Sulfa (sulfonamide antibiotics) Prior to Admission medications Medication Sig Start Date End Date Taking? Authorizing Provider [id number] (FIORICET, ESGIC) 50-300-40 mg per capsule Take [...] not taking: Reported on 05/28/2024 01/17/22 Eddie Moya MD acetaminophen (TYLENOL EXTRA STRENGTH) 500 mg [...] significant interval change. Dr. Radha Santoyo DO. [facility] Office: [phone] documented in this encounter [facility] 05-19-2024 History of Present illness Narrative Images [...] depression Past Medical History: Diagnosis Date Asthma ([facility]) Cholecystitis Depression ([facility]) PTSD (post-traumatic stress disorder) ([facility]) Past Surgical History: Procedure Laterality Date [...] wrist extensors , wrist flexor , and ultrasound tester strength 5/5. LUE strength deltoid , biceps , triceps , wrist extensors , wrist flexor , and ultrasound tester strength 5/5. RLE strength iliopsoas, quadriceps, tibialis [...] reflex 1+. LLE Knee reflex 1+. Coordination: Bpfvki-wh-rlyg testing normal. Rapid alternating movements are normal. Gait: Normal. Review and summary of old records: MRI of the lumbar spine w/o contrast [place] [facility] [place]: Fatty marrow replacement changes. May [...] conditions including anxiety (she is seen at [facility] I will defer current treatment of these to psychiatry - The patient may also benefit from cognitive behavioral therapy at [facility] for suspected PNES Chronic migraine without aura without status migrainous, not intractable ([facility]) It is my impression that the [...] new or worsening symptoms. Kenia Washington NP [facility] Advanced Neurology documented in this encounter [facility] 05-19-2024 Instructions Kenia Washington NP - 05/19/2024 9:40 AM EST - Referral to pain management - Referral to hematology/oncology - Stop rizatriptan - Start Nurtec 75 mg ODT as needed for migraine documented in this encounter [facility] 11-25-2023 Note XR CHEST 2 VWS Procedure: Chest x-ray performed Number of views:1 History:Shortness of breath Comparison:05/27/2023 Findings: The heart and lungs show no acute findings, and the mediastinum and santhosh are grossly negative . Impression: 1. No acute change. Finalized by Sridhar Cook MD on 11/25/2023 10:14 PM [facility] 05-07-2023 Evaluation note Encounter Date Diagnosis Assessment Notes Apr, Ingrown nail of great toe of left foot (ICD-10 - L60.0) Patient is currently on clindamycin for dental infection. Instructed to continue taking that as instructed. Instructed mother and patient to soak left foot in Epsom salt or antibacterial soapy water. Patient should seek care manager corporate strategy for excision of left great toe ingrown toenail. May use Tylenol and/or Motrin as needed per label instructions for pain. All questions and addressed. [facility] 04-27-2023 Evaluation note* Encounter Date Diagnosis Assessment Notes Treatment Notes Treatment Clinical Notes Oct, Dysuria (ICD-10 - R30.0) Oct, Acute cystitis with hematuria (ICD-10 - N30.01) [facility] 10-13-2022 Evaluation note* Encounter Date Diagnosis Assessment Notes Treatment Notes Treatment Clinical Notes Apr, Sore throat (ICD-10 - J02.9) Strep test is negative in office today. Apr, Bronchitis (ICD-10 - J40) Continue current treatment plan. Recommend follow up with primary care provider if symptoms are not improved and decrease smoking as smoking worsens coughing [facility] 10-10-2022 Evaluation note* Encounter Date Diagnosis [...] it will take longer to get better [facility] 09-13-2022 Evaluation note* Encounter Date Diagnosis [...] treatment plan. Patient left in stable condition [facility] 04-05-2022 NotePROCEDURE: XR ELBOW RT MIN 3 VIEWS HISTORY: Pain after falling COMPARISON: None. FINDINGS: BONES:No fracture, acute abnormality, or significant arthropathy. SOFT TISSUES:No visible soft tissue swelling. EFFUSION:None visible. OTHER: Negative. IMPRESSION: 1. No acute bone abnormality. Electronically authenticated by: NICOL RAMACHANDRAN Date: 2021-10-17 06:46[facility]09-22-2021 Evaluation note* Encounter Date Diagnosis Assessment Notes Treatment Notes Treatment Clinical Notes Mar, Conjunctivitis of left eye, unspecified conjunctivitis type (ICD-10 - H10.9) Conjunctivitis material was printed. Use the eyedrops as prescribed. Good handwashing. Off school today and tomorrow. Follow-up with your family physician if no improvement in 2 to 3 days [facility] Chivj complaint+Reason for visit Narrative* Chief Complaint BH left ear pain Reason for Visit Contact with and (grossman spected) exposure to covid-19 [facility] Work Phone: Evaluation noteNo assessment information available [facility] Work Phone: Evaluation note* Diagnosis Onset Date Resolution Status Contact with and (suspected) exposure to covid-19 noneactive [facility] Work Phone: Evaluation note* Diagnosis Onset Date Resolution Status Contact with and (suspected) exposure to covid-19 noneactive Viral URI noneactive [facility] Work Phone: Evaluation note* Diagnosis Chronic migraine with aura without status migrainosus, not intractable ([facility] Primary Screening for hyperlipidemia Screening for lipoid disorders Screening for diabetes mellitus Morbid obesity ([facility]) Morbid obesity JANE (generalized anxiety disorder) ([facility]) Generalized anxiety disorder Severe recurrent major depression without psychotic features ([facility]) ([facility]) Major depressive disorder, recurrent episode, severe, without mention of psychotic behavior Non-seasonal allergic rhinitis, unspecified trigger JANE (generalized anxiety disorder) ([facility])- Primary Generalized anxiety disorder Chronic migraine with aura without status migrainosus, not intractable ([facility]) Acute cough Hypokalemia- Primary Hypopotassemia JANE (generalized anxiety disorder) ([facility]) Generalized anxiety disorder Chronic migraine with aura without status migrainosus, not intractable ([facility]) Seizure disorder ([facility]) Unspecified epilepsy without mention of intractable epilepsy Mild intermittent asthma without complication ([facility] Primary 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 Seizures ([facility])- Primary Other convulsions Mood disorder ([facility]) Unspecified episodic mood disorder Chronic migraine without aura without status migrainosus, not intractable ([facility]) Chronic bilateral low back pain, unspecified whether sciatica present Paresthesia of both lower extremities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
[2024-06-12 13:02] VITALS: BP 180/99; PULSE 102; TEMP 36.6; O2SAT 98; BMI 34.4
[2024-06-12] MEDS: BENZOCAINE 30 ML, lidocaine HCL 15 ML MM (13:54)
--- NOTE | 2024-06-12 14:18 | ED.DENTAL1 ---
HPI - Dental/Oral General Chief complaint: Dental/Oral Stated complaint: DENTAL PAIN Time Seen by Provider: 06/12/24 13:23 Source: patient Limitations: no limitations History of Present Illness HPI Narrative: Patient is a 29-year-old female who presents to the emergency department for a dying tooth in the right mandible associated with swelling for the last several days. She states she saw her regular dentist at the beginning of this month and was told that she will need oral surgery but she does not have $12,000 for the procedure so she is awaiting a referral to a tertiary care clinic. She has multiple dental caries and has been seen in this emergency department multiple times in the past for similar. She reports pain and swelling at tooth #28 and tooth #29. No fevers or drainage. No concern for . Related Data Home Medications ?Medication ?Instructions ?Recorded ?Confirmed oxcarbazepine 300 mg tablet 300 mg PO BID 11/26/23 06/12/24 cholecalciferol (vitamin D3) 10 10 mcg PO DAILY 04/24/24 06/12/24 mcg (400 unit) capsule (Vitamin D3) cyclobenzaprine 5 mg tablet 5 mg PO DAILY 04/24/24 06/12/24 rizatriptan 5 mg tablet 5 mg PO Q2H PRN migraine headache 04/24/24 06/12/24 epinephrine 0.15 mg/0.3 mL 0.3 ml IM PRN 05/20/24 06/12/24 injection,auto-injector alprazolam 0.5 mg tablet (Xanax) 0.5 mg PO DAILY 06/08/24 06/12/24 methocarbamol 750 mg tablet 750 mg PO TID 06/08/24 06/12/24 Previous Rx's ?Medication ?Instructions ?Recorded clindamycin HCl 150 mg capsule 300 mg (2 x 150 mg) PO Q6H 10 days 06/12/24 #80 caps hydrocodone 5 mg-acetaminophen 325 1 tab PO Q6H PRN pain 2 days #8 06/12/24 mg tablet tabs ibuprofen 600 mg tablet 600 mg PO QID PRN pain #20 tabs 06/12/24 Allergies Allergy/AdvReac Type Severity Reaction Status Date / Time latex Allergy Unknown Rash Verified 06/12/24 13:02 adhesive Allergy Rash Verified 06/12/24 13:02 Sulfa (Sulfonamide AdvReac Mild Hives Verified 06/12/24 13:02 Antibiotics) Review of Systems ROS Constitutional Denies: fever or chills Ears, nose, mouth, and throat Reports: mouth pain; Denies: throat pain or nasal congestion Cardiovascular Denies: chest pain Respiratory Denies: shortness of breath or cough Gastrointestinal Denies: nausea or vomiting Integumentary/Breast Denies: rash Neurological Denies: numbness in extremities or weakness in extremities Hematologic/Lymphatic Denies: easy bruising or easy bleeding [facility] Medical History (Updated 06/12/24 @ 14:14 by SONJA Downey) Seizures ?R56.9 - Unspecified convulsions (ICD-10) Chipped tooth ?S02.5XXA - Fracture of tooth (traumatic), initial encounter for closed fracture (ICD-10) Former smoker, stopped smoking in distant past ?Z87.891 - Personal history of nicotine dependence (ICD-10) Asthma ?J45.909 - Unspecified asthma, uncomplicated (ICD-10) High blood cholesterol level ?E78.00 - Pure hypercholesterolemia, unspecified (ICD-10) Surgical History (Updated 06/08/24 @ 14:13 by Andreia Waller) H/O dilation and curettage ?Z98.890 - Other specified postprocedural states (ICD-10) History of laparoscopic cholecystectomy ?Z90.49 - Acquired absence of other specified parts of digestive tract (ICD-10) History of tonsillectomy and adenoidectomy ?Z90.89 - Acquired absence of other organs (ICD-10) Social History Smoking status: Former smoker Little interest or pleasure in doing things: not at all Feeling down, depressed, or hopeless: not at all Exam Narrative Exam Narrative: Gen.: Awake, alert, in no distress Head: Normocephalic, atraumatic ENT: Moist mucous membranes, mild swelling noted to the right mandible with no redness or swelling under the tongue. No trismus or drooling. Clear speech. Multiple dental caries noted of tooth #28 and tooth #29, no dental abscess noted. Teeth are eroded to the gumline in this area. Airway widely open and patent with clear speech Respiratory: No respiratory distress Extremities: Moves extremities equally Psych: Normal mood and affect Neuro: No focal neuro deficit Skin: Warm, dry, intact Constitutional Vital Signs, click to edit/add: Last Vital Signs Temp 97.8 F 06/12/24 13:02 Pulse 102 H 06/12/24 13:02 Resp 16 06/12/24 13:02 BP 180/99 H 06/12/24 13:02 Pulse Ox 98 06/12/24 13:02 O2 Del Method Room Air 06/12/24 13:02 Course Vital Signs Vital signs: Vital Signs Temperature 97.8 F 06/12/24 13:02 Pulse Rate 102 H 06/12/24 13:02 Respiratory Rate 16 06/12/24 13:02 Blood Pressure 180/99 H 06/12/24 13:02 Pulse Oximetry 98 06/12/24 13:02 Oxygen Delivery Method Room Air 06/12/24 13:02 Temperature 97.8 F 06/12/24 13:02 Pulse Rate 102 H 06/12/24 13:02 Respiratory Rate 16 06/12/24 13:02 Blood Pressure 180/99 H 06/12/24 13:02 Pulse Oximetry 98 06/12/24 13:02 Oxygen Delivery Method Room Air 06/12/24 13:02 MDM - Dental/Oral MDM Narrative Medical decision making narrative: Patient given tertiary care dental referrals to [facility] and [facility]. Clindamycin and a short course of analgesics and NSAIDs given for home with topical analgesia. Return to the ER if symptoms change or worsen SUPERVISED APC VISIT, PHYSICIAN ATTESTATION: Based on the medical record the care appears appropriate. ? Medical Records Attestation: I reviewed the patient's medical records. Discharge Plan Discharge Chief Complaint: Dental/Oral Clinical Impression: Dental caries, Dental abscess Patient Disposition: Home, Self-Care Time of Disposition Decision: 14:13 Condition: Good Prescriptions / Home Meds: New hydrocodone-acetaminophen 5-325 mg tablet 1 tab PO Q6H PRN (Reason: pain) 2 Days Qty: 8 0RF Rx Instructions: DX: K08.89 clindamycin HCl 150 mg capsule 300 mg PO Q6H 10 Days Qty: 80 0RF ibuprofen 600 mg tablet 600 mg PO QID PRN (Reason: pain) Qty: 20 0RF No Action oxcarbazepine 300 mg tablet 300 mg PO BID epinephrine 0.15 mg/0.3 mL auto-injector 0.3 ml IM PRN alprazolam [Xanax] 0.5 mg tablet 0.5 mg PO DAILY methocarbamol 750 mg tablet 750 mg PO TID rizatriptan 5 mg tablet 5 mg PO Q2H PRN (Reason: migraine headache) cholecalciferol (vitamin D3) [Vitamin D3] 10 mcg (400 unit) capsule 10 mcg PO DAILY cyclobenzaprine 5 mg tablet 5 mg PO DAILY Print Language: Yemeni Instructions: Dental Abscess (ED) Additional Instructions: [facility] [phone] [facility] [phone] Referrals: [facility] [Primary Care Provider] - 1 week
[2024-06-12] MEDS: HYDROCODONE/ACET 5-325 MG TABLET 1 TAB PO (14:43)
== END 2024-06-12 14:45 | disposition home or self-care (01) ==
PROVIDERS: Emergency Provider Emergency Medicine
DX: K04.7 Periapical abscess without sinus (principal); K02.9 Dental caries, unspecified; Z90.49 Acquired absence of other specified parts of digestive tract; Z87.891 Personal history of nicotine dependence
CPT/HCPCS: 99283

== ENCOUNTER 2024-07-02 19:08 | Emergency (ER) | payer MEDICAID, SELFPAY ==
[2024-07-02 19:10] VITALS: BP 144/97; PULSE 114; TEMP 36.6; O2SAT 99; BMI 34.4
--- OUTSIDE RECORDS SUMMARY | 2024-07-02 19:13 | XMS_ITS | CCD ---
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 ####[facility] ([id number])[address] [place] [address] 77444 Fibrin D-dimer DDU (PPP) [Ma ss/Vol]on 06-13-2024 D DIMER 197 ng/mL DDU Normal <255 [facility] Comment on above: Result Comment: Results <255 ng/mL DDU: The presence of a VTE can safely be excluded with a negative D-Dimer result and Wells score. A negative result doesn't exclude the possibility of DIC. The test be repeated along with other diagnostic tests if the patient's symptoms persist or worsen. [email or web address] Performed By: #### C BCA, 03708-9, PINR, 61423-2, BMP, 49199-3, 76505-5, THYR ####[facility] ([id number])[address] [place] [address] 13836 HCG ( test) Ql (U)o n 06-13-2024 Beta HCG ( test) Ql (U) Negative Normal NEG [facility] Comment on above: Performed By: #### 2 106-3 ####[facility] ([id number])[address] [place] [address] 48991 MAGNESIUMon 06-13-2024 Magnesium [Mass/Vol] 2.1 mg/dL Normal 1.8-2.6 [facility] Comment on above: Performed By: #### C BCA, 21412-2, PINR, 64655-3, BMP, 08703-5, 50255-1, THYR ####[facility] ([id number])[address] [place] [address] 00191 PROTIME AND INRon 06-13-2024 INR Coag (PPP) [Relative time] 1.1 {INR} Normal 0.8-1.1 [facility] Comment on above: Performed By: #### C BCA, 04890-3, PINR, 83576-5, BMP, 62555-7, 53456-0, THYR ####[facility] ([id number])[address] [place] [address] 95492 PT Coag (PPP) [Time] 12.4 s Normal 9.8-13.2 [facility] Comment on above: Result Comment: NEW REFERENCE RANGE Performed By: #### C BCA, 61028-8, PINR, 17332-2, BMP, 62807-2, 17240-1, THYR ####[facility] ([id number])[address] [place] [address] 04879 THYROID PROFILEon 06-13-2024 Free T4 [Mass/Vol] 1.01 ng/dL Normal 0.61-1.60 [facility] Comment on above: Performed By: #### C BCA, 98728-1, PINR, 45824-7, BMP, 73878-2, 62540-6, THYR ####[facility] ([id number])[address] [place] [address] 17503 TSH 2.16 uIU/mL Normal 0.49-4.67 [facility] Comment on above: Performed By: #### C BCA, 04683-1, PINR, 48372-7, BMP, 23385-6, 58827-5, THYR ####[facility] ([id number])[address] [place] [address] 54266 Troponin I.cardiac High sens itivity method [Mass/Vol]on 06-13-2024 1 HOUR TROP I, HIGH SENSITIVITY <2 Normal <16 [facility] Comment on above: Performed By: #### 8 9579-7 ####[facility] ([id number])[address] [place] [address] 91977 TROPONIN I, HIGH SENSITIVITY <2 Normal <16 [facility] Comment on above: Performed By: #### C BCA, 73983-1, PINR, 09297-2, BMP, 94963-5, 91157-6, THYR ####[facility] ([id number])[address] [place] [address] 31488 URN MACROSCOPIC NURon 2023 BILIRUBIN BETHANY Negative Normal NEG [facility] Comment on above: Performed By: #### N UM ####[facility] ([id number])[address] [place] [address] [place] [address] BLOOD/HGB BETHANY Small Abnormal NEG [facility] Comment on above: Performed By: #### N UM ####[facility] ([id number])[address] [place] [address], [place] [address] GLUCOSE BETHANY Negative Normal NEG [facility] Comment on above: Performed By: #### N UM ####[facility] ([id number])[address] [place] [address], [place] [address] KETONES BETHANY Negative Normal NEG [facility] Comment on above: Performed By: #### N UM ####[facility] ([id number])[address] [place] [address], [place] [address] LEUKOCYTE ESTERASE BETHANY Negative Normal NEG [facility] Comment on above: Performed By: #### N UM ####[facility] ([id number])[address] [place] [address], [place] [address] NITRITE BETHANY Negative Normal NEG [facility] Comment on above: Performed By: #### N UM ####[facility] ([id number])[address] [place] [address] [place] [address] PH BETHANY 5.5 Normal 5.0-8.5 [facility] Comment on above: Performed By: #### N UM ####[facility] ([id number])[address] [place] [address] [place] [address] PROTEIN BETHANY Negative Normal NEG [facility] Comment on above: Performed By: #### N UM ####[facility] ([id number])[address] [place] [address], [place] [address] SPECIFIC GRAVITY BETHANY 1.015 Normal 1.003-[address] [place] [address] Comment on above: Performed By: #### N UM ####[facility] ([id number])[address] [place] [address], [place] [address] UROBILINOGEN BETHANY 0.2 eu/dL Normal <1.1 [facility] Comment on above: Performed By: #### N UM ####[facility] ([id number])[address] [place] [address] 51040 XR CHEST 2 VWSon 06-13-2024 XR CHEST 2 VWS XR CHEST 2 VWS History: Heart palpitations. Exam/Technique: PA and lateral views of the Chest Comparison: 04/28/2024 Findings: The heart and mediastinal contours are within normal limits. No organized airspace disease, sizable effusion or evidence of acute pulmonary pathology. The visualized bony structures are age compatible . IMPRESSION: * No acute findings. Finalized by Burak Sutherland DO on 06/13/2024 5:14 PM Normal [facility] aPTT Coag (PPP) [Time]on aPTT Coag (Bld) [Time] 33 s Normal 26-37 [facility] Comment on above: Result Comment: NEW REFERENCE RANGE Performed By: #### C BCA, 64171-6, PINR, 62516-9, BMP, 37505-9, 64701-6, THYR ####[facility] ([id number])[address] [place] [address] 26009 Respiratory allergy panelon 05-29-2024 A. alternata IgE Qn (S) kU/L NINF - 0.10 kU/L [facility] Comment on above: Class 0: Normal A. fumigatus IgE Qn (S) kU/L NINF - 0.10 kU/L [facility] Comment on above: Class 0: Normal Martiniquais house dust mite IgE Qn (S) kU/L NINF - 0.10 kU/L [facility] Comment on above: Class 0: Normal Bermuda grass IgE Qn (S) kU/L NINF - 0.10 kU/L [facility] Comment on above: Class 0: Normal Boxelder IgE Qn (S) kU/L NINF - 0.10 kU/L [facility] Comment on above: Class 0: Normal C. herbarum IgE Qn (S) kU/L NINF - 0.10 kU/L [facility] Comment on above: Class 0: Normal [place] Agency Pollen IgE Qn (S) kU/L NINF - 0.10 kU/L [facility] Comment on above: Class 0: Normal Cat dander IgE Qn (S) kU/L NINF - 0.10 kU/L [facility] Comment on above: Class 0: Normal Cocklebur IgE Qn (S) kU/L NINF - 0.10 kU/L [facility] Comment on above: Class 0: Normal Cockroach IgE Qn (S) kU/L NINF - 0.10 kU/L [facility] Comment on above: Class 0: Normal Common Pigweed IgE Qn (S) kU/L NINF - 0.10 kU/L [facility] Comment on above: Class 0: Normal Common Ragweed IgE Qn (S) kU/L NINF - 0.10 kU/L [facility] Comment on above: Class 0: Normal Silverton IgE Qn (S) kU/L NINF - 0.10 kU/L [facility] Comment on above: Class 0: Normal Dog dander IgE Qn (S) kU/L NINF - 0.10 kU/L [facility] Comment on above: Class 0: Normal house dust mite IgE Qn (S) kU/L NINF - 0.10 kU/L [facility] Comment on above: Class 0: Normal Goosefoot IgE Qn (S) kU/L NINF - 0.10 kU/L [facility] Comment on above: Class 0: Normal IgE Qn 13 [IU]/L [facility] Heather grass IgE Qn (S) kU/L NINF - 0.10 kU/L [facility] Comment on above: Class 0: Normal [place] blue grass IgE Qn (S) kU/L NINF - 0.10 kU/L [facility] Comment on above: Class 0: Normal Enamorado Plane IgE Qn (S) kU/L NINF - 0.10 kU/L [facility] Comment on above: Class 0: Normal Birch Elder IgE Qn (S) kU/L NINF - 0.10 kU/L [facility] Comment on above: Class 0: Normal Mountain Juniper IgE Qn (S) kU/L NINF - 0.10 kU/L [facility] Comment on above: Class 0: Normal Mouse urine proteins IgE Qn (S) kU/L NINF - 0.10 kU/L [facility] Comment on above: Class 0: Normal Mugwort IgE Qn (S) kU/L NINF - 0.10 kU/L [facility] Comment on above: Class 0: Normal Nettle IgE Qn (S) kU/L NINF - 0.10 kU/L [facility] Comment on above: Class 0: Normal P. notatum IgE Qn (S) kU/L NINF - 0.10 kU/L [facility] Comment on above: Class 0: Normal Pecan or Dade Tree IgE Qn (S) kU/L NINF - 0.10 kU/L [facility] Comment on above: Class 0: Normal Saltwort IgE Qn (S) kU/L NINF - 0.10 kU/L [facility] Comment on above: Class 0: Normal Sheep Gough IgE Qn (S) kU/L NINF - 0.10 kU/L [facility] Comment on above: Class 0: Normal Silver Birch IgE Qn (S) kU/L NINF - 0.10 kU/L [facility] Comment on above: Class 0: Normal Guero IgE Qn (S) kU/L NINF - 0.10 kU/L [facility] Comment on above: Class 0: Normal White Jos IgE Qn (S) kU/L NINF - 0.10 kU/L [facility] Comment on above: Class 0: Normal White Elm IgE Qn (S) kU/L NINF - 0.10 kU/L [facility] Comment on above: Class 0: Normal White mulberry IgE Qn (S) kU/L NINF - 0.10 kU/L [facility] Comment on above: Class 0: Normal Woodbine IgE Qn (S) kU/L NINF - 0.10 kU/L [facility] Comment on above: Class 0: Normal [facility] RESPIRATORY PANELon 05-28-20 24 ALTERNARIA ALTERNATA <0.10 Normal <0.10 [facility] Comment on above: Result Comment: Clas s 0: Normal Performed By: #### R AP ####[facility] ([id number])[address], [place] [address] ASPERGILLUS FUMIGATUS <0.10 Normal <0.10 [facility] Comment on above: Result Comment: Clas s 0: Normal Performed By: #### R AP ####[facility] ([id number])[address], [place] [address] BERMUDA GRASS <0.10 Normal <0.10 [facility] Comment on above: Result Comment: Clas s 0: Normal Performed By: #### R AP ####[facility] ([id number])[address], [place] [address] BOX ELDER <0.10 Normal <0.10 [facility] Comment on above: Result Comment: Clas s 0: Normal Performed By: #### R AP ####[facility] ([id number])[address], [place] [address] CAT DANDER <0.10 Normal <0.10 [facility] Comment on above: Result Comment: Clas s 0: Normal Performed By: #### R AP ####[facility] ([id number])[address], [place] [address] CLADOSPORIUM HERB <0.10 Normal <0.10 [facility] Comment on above: Result Comment: Clas s 0: Normal Performed By: #### R AP ####[facility] ([id number])[address], [place] [address] COCKLEBUR <0.10 Normal <0.10 [facility] Comment on above: Result Comment: Clas s 0: Normal Performed By: #### R AP ####[facility] ([id number])[address], [place] [address] COCKROACH <0.10 Normal <0.10 [facility] Comment on above: Result Comment: Clas s 0: Normal Performed By: #### R AP ####[facility] ([id number])[address], [place] [address] COMMON PIGWEED <0.10 Normal <0.10 [facility] Comment on above: Result Comment: Clas s 0: Normal Performed By: #### R AP ####[facility] ([id number])[address], [place] [address] COMMON RAGWEED <0.10 Normal <0.10 [facility] Comment on above: Result Comment: Clas s 0: Normal Performed By: #### R AP ####[facility] ([id number])[address] [address] COMMON SILVER BIRCH <0.10 Normal <0.10 [facility] Comment on above: Result Comment: Clas s 0: Normal Performed By: #### R AP ####[facility] ([id number])[address] [place] [address] COTTONWOOD <0.10 Normal <0.10 [facility] Comment on above: Result Comment: Clas s 0: Normal Performed By: #### R AP ####[facility] ([id number])[address] [address] DERMATOPH FARINAE <0.10 Normal <0.10 [facility] Comment on above: Result Comment: Clas s 0: Normal Performed By: #### R AP ####[facility] ([id number])[address] [address] DERMATOPH PTERONYSS <0.10 Normal <0.10 [facility] Comment on above: Result Comment: Clas s 0: Normal Performed By: #### R AP ####[facility] ([id number])[address], [place] [address] DOG DANDER <0.10 Normal <0.10 [facility] Comment on above: Result Comment: Clas s 0: Normal Performed By: #### R AP ####[facility] ([id number])[address], [place] [address] ELM <0.10 Normal <0.10 [facility] Comment on above: Result Comment: Clas s 0: Normal Performed By: #### R AP ####[facility] ([id number])[address], [place] [address] GOOSEFOOT HEWITT QTR <0.10 Normal <0.10 [facility] Comment on above: Result Comment: Clas s 0: Normal Performed By: #### R AP ####[facility] ([id number])[address], [place] [address] IGE 13 IU/mL Normal 0-165 [facility] Comment on above: Performed By: #### R AP ####[facility] ([id number])[address], [place] [address] HEATHER GRASS <0.10 Normal <0.10 [facility] Comment on above: Result Comment: Clas s 0: Normal Performed By: #### R AP ####[facility] ([id number])[address], [place] [address] MAPLE LEAF SYCAMORE <0.10 Normal <0.10 [facility] Comment on above: Result Comment: Clas s 0: Normal Performed By: #### R AP ####[facility] ([id number])[address], [place] [address] MEADOW GRASS KY TERRA <0.10 Normal <0.10 [facility] Comment on above: Result Comment: Clas s 0: Normal Performed By: #### R AP ####[facility] ([id number])[address] [place] [address] MOUNTAIN JUNIPER <0.10 Normal <0.10 [facility] Comment on above: Result Comment: Clas s 0: Normal Performed By: #### R AP ####[facility] ([id number])[address] [address] MOUSE URINE PROTEINS <0.10 Normal <0.10 [facility] Comment on above: Result Comment: Clas s 0: Normal Performed By: #### R AP ####[facility] ([id number])[address] [address] MUGWORT <0.10 Normal <0.10 [facility] Comment on above: Result Comment: Clas s 0: Normal Performed By: #### R AP ####[facility] ([id number])[address] [address] MULBERRY TREE <0.10 Normal <0.10 [facility] Comment on above: Result Comment: Clas s 0: Normal Performed By: #### R AP ####[facility] ([id number])[address] [address] NETTLE <0.10 Normal <0.10 [facility] Comment on above: Result Comment: Clas s 0: Normal Performed By: #### R AP ####[facility] ([id number])[address] [address] OAK <0.10 Normal <0.10 [facility] Comment on above: Result Comment: Clas s 0: Normal Performed By: #### R AP ####[facility] ([id number])[address], [place] [address] PECAN HICKORY TREE <0.10 Normal <0.10 [facility] Comment on above: Result Comment: Clas s 0: Normal Performed By: #### R AP ####[facility] ([id number])[address] [address] PENICILLIUM CHRYSOGENUM <0.10 Normal <0.10 [facility] Comment on above: Result Comment: Clas s 0: Normal Performed By: #### R AP ####[facility] ([id number])[address] [address] ROUGH MARSHELDER <0.10 Normal <0.10 [facility] Comment on above: Result Comment: Clas s 0: Normal Performed By: #### R AP ####[facility] ([id number])[address], [place] [address] SALTWORT KEVAN THISTLE <0.10 Normal <0.10 [facility] Comment on above: Result Comment: Clas s 0: Normal Performed By: #### R AP ####[facility] ([id number])[address], [place] [address] SHEEP SORREL <0.10 Normal <0.10 [facility] Comment on above: Result Comment: Clas s 0: Normal Performed By: #### R AP ####[facility] ([id number])[address] [address] GUERO <0.10 Normal <0.10 [facility] Comment on above: Result Comment: Clas s 0: Normal Performed By: #### R AP ####[facility] ([id number])[address] [address] WALNUT TREE POLLEN <0.10 Normal <0.10 [facility] Comment on above: Result Comment: Clas s 0: Normal Performed By: #### R AP ####[facility] ([id number])[address], [place] [address] WHITE JOS <0.10 Normal <0.10 [facility] Comment on above: Result Comment: Clas s 0: Normal Performed By: #### R AP ####[facility] ([id number])[address], [place] [address] MR head/brain wo/w conon MR head/brain wo/w con [facility] Main [address] [address] MRI Report Signed Patient: Jennifer Aguillon MR#: [id number] 8 : 1995 Acct:[id number] Age/Sex: 29 / F ADM Date: 05/11/24 Loc: MR Room: Type: [facility] Attending Dr: Kenia LIN Copies to: DELIA [...] Luis Baldwin M.D.05/11/2024 11:05 PM Dictation Location: [place] [address] Transcribed By: [facility] 05/11/24 7077 Dictated By: Juan Luis Baldwin DO 05/11/242301 Signed By: 05/11/242304 Normal [facility] MR lumbar spine wo conon MR lumbar spine wo con [facility] Main [place] [id number] MRI Report Signed Patient: Jennifer Aguillon MR#: [id number] 8 : 1995 Acct:[id number] Age/Sex: 29 / F ADM Date: 05/11/24 Loc: MR Room: Type: [facility] Attending Dr: Kenia LIN Copies to: DELIA [...] Luis Baldwin M.D.05/11/2024 11:02 PM Dictation Location: [place] [address] Transcribed By: [facility] 05/11/242301 Dictated By: Juan Luis Baldwin DO 05/11/247 Signed By: 05/11/242301 Normal [facility] XR CHEST 2 VWSon [...] Vincent MD on 04/28/2024 2:10 PM Normal [facility] ECG 12 lead ECGon 03-18-2024 ECG 12 lead ECG [facility] [place] [address] Electrocardiograph Report Signed Patient: Jennifer Aguillon MR#: [id number] 8 : 1995 Acct:[id number] Age/Sex: 28 / F ADM Date: 03/18/24 Loc: ER Room: Type: [facility] ER Attending Dr: Ordering Provider: Estefani Alexander [...] ECGs available Confirmed by ESTEFANI ALEXANDER MD ([id number]) on 03/20/2024 5:58:53 AM Referred By: Electronically Signed By: ESTEFANI ALEXANDER MD Transcribed By: MUS Signed By Estefani Alexander Jr, MD 0558 Normal [facility] Influenza virus B Ag [Presen ce] in Upper respiratory specimen by Rapid immunoassayon 03-05-2024 FLUBV Ag IA.rapid Ql (Nph) Negative [facility] No Panel Informationon 03-05 Influenza Type A (Rapid) Negative [facility] POC SARS CoV-2 Antigen Negative [facility] Troponin I.cardiac High sens itivity method [Mass/Vol]on 02-14-2024 1 HOUR TROP I, HIGH SENSITIVITY 3 ng/L Normal <16 [facility] Comment on above: Performed By: #### 8 9579-7 ####[facility] ([id number])[address] [place] [address] 72223 CBC AND AUTO DIFFon 02-13-20 24 ABSOLUTE BASOPHIL 0.0 X10E9/L Normal 0.0-0.2 [facility] Comment on above: Performed By: #### 2 106-3 #### [facility] ([id number]) [address] [place] [address] 18789 ABSOLUTE NEUTROPHIL 7.5 X10E9/L High 1.5-6.6 [facility] Comment on above: Performed By: #### 2 106-3 #### [facility] ([id number]) [address] [place] [address] 02808 Basophils/100 WBC (Bld) 0.3 % Normal [facility] Comment on above: Performed By: #### 2 106-3 #### [facility] ([id number]) [address] [place] [address] 44255 Eosinophils (Bld) [#/Vol] 0.1 10*3/uL Normal 0.0-0.4 [facility] Comment on above: Performed By: #### 2 106-3 #### [facility] ([id number]) [address] [place] [address] 60168 Eosinophils/100 WBC (Bld) 0.8 % Normal [facility] Comment on above: Performed By: #### 2 106-3 #### [facility] ([id number]) [address] [place] [address] Erythrocyte distribution width (RBC) [Ratio] 13.7 % Normal 11.5-15.0 [facility] Comment on above: Performed By: #### 2 106-3 #### [facility] ([id number]) [address] [place] [address] 24148 Hematocrit (Bld) [Volume fraction] 35.8 % Normal 35-47 [facility] Comment on above: Performed By: #### 2 106-3 #### [facility] ([id number]) [address] [place] [address] 86527 Hemoglobin (Bld) [Mass/Vol] 12.5 g/dL Normal 11.7-15.5 [facility] Comment on above: Performed By: #### 2 106-3 #### [facility] ([id number]) [address] [place] [address] 17566 Lymphocytes (Bld) [#/Vol] 3.4 10*3/uL Normal 1.0-3.5 [facility] Comment on above: Performed By: #### 2 106-3 #### [facility] ([id number]) [address] [place] [address] 42733 Lymphocytes/100 WBC (Bld) 29.4 % Normal [facility] Comment on above: Performed By: #### 2 106-3 #### [facility] ([id number]) [address] [place] [address] 48906 MCH (RBC) [Entitic mass] 29.8 pg Normal 27-34 [facility] Comment on above: Performed By: #### 2 106-3 #### [facility] ([id number]) [address] [place] [address] 43767 MCHC (RBC) [Mass/Vol] 35.0 g/dL Normal 32-36 [facility] Comment on above: Performed By: #### 2 106-3 #### [facility] ([id number]) [address] [place] [address] 99660 MCV (RBC) [Entitic vol] 85 fL Normal 80-100 [facility] Comment on above: Performed By: #### 2 106-3 #### [facility] ([id number]) [address] [place] [address] 57120 Monocytes (Bld) [#/Vol] 0.6 10*3/uL Normal 0-0.9 [facility] Comment on above: Performed By: #### 2 106-3 #### [facility] ([id number]) [address] [place] [address] 15390 Monocytes/100 WBC (Bld) 4.8 % Normal [facility] Comment on above: Performed By: #### 2 106-3 #### [facility] ([id number]) [address] [place] [address] 82381 Neutrophils/100 WBC (Bld) 64.7 % Normal [facility] Comment on above: Performed By: #### 2 106-3 #### [facility] ([id number]) [address] [place] [address] 44588 Platelet mean volume (Bld) [Entitic vol] 6.6 fL Low 7-12 [facility] Comment on above: Performed By: #### 2 106-3 #### [facility] ([id number]) [address] [place] [address] 38033 Platelets (Bld) [#/Vol] 377 10*3/uL Normal 150-450 [facility] Comment on above: Performed By: #### 2 106-3 #### [facility] ([id number]) [address] [place] [address] 95769 RBC COUNT 4.21 X10E12/L Normal 3.80-5.20 [facility] Comment on above: Performed By: #### 2 106-3 #### [facility] ([id number]) [address] [place] [address] 11866 WBC (Bld) [#/Vol] 11.6 10*3/uL High 4.0-11.0 [facility] Comment on above: Performed By: #### 2 106-3 #### [facility] ([id number]) [address] [place] [address] [place] [address] COMPREHENSIVE METABOLIC PANE Kit 02-13-2024 Albumin [Mass/Vol] 4.1 g/dL Normal 3.2-5.3 [facility] Comment on above: Performed By: #### 2 106-3 #### [facility] ([id number]) [address] [place] [address] 39246 ALP [Catalytic activity/Vol] 158 U/L High 39-130 [facility] Comment on above: Performed By: #### 2 106-3 #### [facility] ([id number]) [address] [place] [address] 89460 ALT [Catalytic activity/Vol] 46 U/L High 0-31 [facility] Comment on above: Performed By: #### 2 106-3 #### [facility] ([id number]) [address] [place] [address] 19241 Anion gap [Moles/Vol] 7 mmol/L Normal 5-15 [facility] Comment on above: Performed By: #### 2 106-3 #### [facility] ([id number]) [address] [place] [address] 67992 AST [Catalytic activity/Vol] 28 U/L Normal 0-41 [facility] Comment on above: Performed By: #### 2 106-3 #### [facility] ([id number]) [address] [place] [address] 94332 Bilirubin [Mass/Vol] 0.5 mg/dL Normal 0.3-1.2 [facility] Comment on above: Performed By: #### 2 106-3 #### [facility] ([id number]) [address] [place] [address] 88029 Calcium [Mass/Vol] 9.0 mg/dL Normal 8.5-10.5 [facility] Comment on above: Performed By: #### 2 106-3 #### [facility] ([id number]) [address] [place] [address] 68325 Chloride [Moles/Vol] 106 mmol/L Normal 98-109 [facility] Comment on above: Performed By: #### 2 106-3 #### [facility] ([id number]) [address] [place] [address] 50579 CO2 [Moles/Vol] 24 mmol/L Normal 22-32 [facility] Comment on above: Performed By: #### 2 106-3 #### [facility] ([id number]) [address] [place] [address] 78202 Creatinine [Mass/Vol] 0.63 mg/dL Normal 0.40-1.00 [facility] Comment on above: Result Comment: METH OD TRACEABLE TO IDMS STANDARD Performed By: #### 2 106-3 #### [facility] ([id number]) [address] [place] [address] 14181 eGFR (CKD-EPI) NON-RACE DEPENDENT >90 Normal >59 [facility] Comment on above: Result Comment: Reported eGFR is based on the CKD-EPI 2020 equation that does not use a race coefficient. Performed By: #### 2 106-3 #### [facility] ([id number]) [address] [place] [address] 91062 Glucose [Mass/Vol] 98 mg/dL Normal 65-99 [facility] Comment on above: Performed By: #### 2 106-3 #### [facility] ([id number]) [address] [place] [address] 56328 Potassium [Moles/Vol] 3.1 mmol/L Low 3.5-5.0 [facility] Comment on above: Performed By: #### 2 106-3 #### [facility] ([id number]) [address] [place] [address] 69821 Protein [Mass/Vol] 8.0 g/dL Normal 6.0-8.0 [facility] Comment on above: Performed By: #### 2 106-3 #### [facility] ([id number]) [address] [place] [address] 00454 Sodium [Moles/Vol] 137 mmol/L Normal 134-146 [facility] Comment on above: Performed By: #### 2 106-3 #### [facility] ([id number]) [address] [place] [address] 35127 Urea nitrogen [Mass/Vol] 7 mg/dL Normal 5-23 [facility] Comment on above: Performed By: #### 2 106-3 #### [facility] ([id number]) [address] [place] [address] 92566 HCG ( test) Ql (U)o n 02-13-2024 Beta HCG ( test) Ql (U) Negative Normal NEG [facility] Comment on above: Performed By: #### 2 106-3 #### [facility] ([id number]) [address] [place] [address] 16398 MAGNESIUMon 02-13-2024 Magnesium [Mass/Vol] 1.9 mg/dL Normal 1.8-2.6 [facility] Comment on above: Performed By: #### 2 106-3 #### [facility] ([id number]) [address] [place] [address] 83375 Troponin I.cardiac High sens itivity method [Mass/Vol]on 02-13-2024 TROPONIN I, HIGH SENSITIVITY 3 ng/L Normal <16 [facility] Comment on above: Performed By: #### 2 106-3 #### [facility] ([id number]) [address] [place] [address] 17597 URN MACROSCOPIC NURon 2023 BILIRUBIN BETHANY Negative Normal NEG [facility] Comment on above: Performed By: #### 2 106-3 #### [facility] ([id number]) [address] [place] [address] [place] [address] BLOOD/HGB BETHANY Negative Normal NEG [facility] Comment on above: Performed By: #### 2 106-3 #### [facility] ([id number]) [address] [place] [address] [place] [address] GLUCOSE BETAHNY Negative Normal NEG [facility] Comment on above: Performed By: #### 2 106-3 #### [facility] ([id number]) [address] [place] [address] [place] [address] KETONES BETHANY Negative Normal NEG [facility] Comment on above: Performed By: #### 2 106-3 #### [facility] ([id number]) [address] [place] [address] [place] [address] LEUKOCYTE ESTERASE BETHANY Negative Normal NEG [facility] Comment on above: Performed By: #### 2 106-3 #### [facility] ([id number]) [address] [place] [address] [place] [address] NITRITE BETHANY Negative Normal NEG [facility] Comment on above: Performed By: #### 2 106-3 #### [facility] ([id number]) [address] [place] [address] 78219 PH BETHANY 6.5 Normal 5.0-8.5 [facility] Comment on above: Performed By: #### 2 106-3 #### [facility] ([id number]) [address] [place] [address] 65627 PROTEIN BETHANY Negative Normal NEG [facility] Comment on above: Performed By: #### 2 106-3 #### [facility] ([id number]) [address] [place] [address] 25596 SPECIFIC GRAVITY BETHANY 1.015 Normal 1.003-1 .03 5 [facility] Comment on above: Performed By: #### 2 106-3 #### [facility] ([id number]) [address] [place] [address] 04770 UROBILINOGEN BETHANY 0.2 eu/dL Normal <1.1 [facility] Comment on above: Performed By: #### 2 106-3 #### [facility] ([id number]) [address] [place] [address] 77331 XR CHEST 2 VWSon 02-13-2024 XR CHEST 2 VWS XR CHEST 2 VWS Chest 2 views History: Difficulty breathing SOB Comparison: 11/25/2023 Findings: Chest 2 views. Stable cardiomediastinal silhouette. No focal opacity, effusion or pneumothorax. Impression: No evident acute cardiopulmonary process. Finalized by Jennifer Howe MD on 02/13/2024 11:22 PM Normal [facility] BASIC METABOLIC PANLon 12-28 Anion gap [Moles/Vol] 4 mmol/L Low 5-15 [facility] Comment on above: Performed By: #### 2 106-3 #### [facility] ([id number]) [address] [place] [address] 37427 Calcium [Mass/Vol] 8.4 mg/dL Low 8.5-10.5 [facility] Comment on above: Performed By: #### 2 106-3 #### [facility] ([id number]) [address] [place] [address] 58403 Chloride [Moles/Vol] 106 mmol/L Normal 98-109 [facility] Comment on above: Performed By: #### 2 106-3 #### [facility] ([id number]) [address] [place] [address] 97242 CO2 [Moles/Vol] 24 mmol/L Normal 22-32 [facility] Comment on above: Performed By: #### 2 106-3 #### [facility] ([id number]) [address] [place] [address] 79439 Creatinine [Mass/Vol] 0.65 mg/dL Normal 0.40-1.00 [facility] Comment on above: Result Comment: METH OD TRACEABLE TO IDMS STANDARD Performed By: #### 2 106-3 #### [facility] ([id number]) [address] [place] [address] 66594 eGFR (CKD-EPI) NON-RACE DEPENDENT >90 Normal >59 [facility] Comment on above: Result Comment: Reported eGFR is based on the CKD-EPI 2021 equation that does not use a race coefficient. Performed By: #### 2 106-3 #### [facility] ([id number]) [address] [place] [address] 32778 Glucose [Mass/Vol] 101 mg/dL High 65-99 [facility] Comment on above: Performed By: #### 2 106-3 #### [facility] ([id number]) [address] [place] [address] 42215 Potassium [Moles/Vol] 3.8 mmol/L Normal 3.5-5.0 [facility] Comment on above: Performed By: #### 2 106-3 #### [facility] ([id number]) [address] [place] [address] 97614 Sodium [Moles/Vol] 134 mmol/L Normal 134-146 [facility] Comment on above: Performed By: #### 2 106-3 #### [facility] ([id number]) [address] [place] [address] 90927 Urea nitrogen [Mass/Vol] 12 mg/dL Normal 5-23 [facility] Comment on above: Performed By: #### 2 106-3 #### [facility] ([id number]) [address] [place] [address] 78619 CBC AND AUTO DIFFon 12-29-19 24 ABSOLUTE BASOPHIL 0.1 X10E9/L Normal 0.0-0.2 [facility] Comment on above: Performed By: #### 2 106-3 #### [facility] ([id number]) [address] [place] [address] 89949 ABSOLUTE NEUTROPHIL 6.1 X10E9/L Normal 1.5-6.6 [facility] Comment on above: Performed By: #### 2 106-3 #### [facility] ([id number]) [address] [place] [address] 16481 Basophils/100 WBC (Bld) 0.7 % Normal [facility] Comment on above: Performed By: #### 2 106-3 #### [facility] ([id number]) [address] [place] [address] 13594 Eosinophils (Bld) [#/Vol] 0.2 10*3/uL Normal 0.0-0.4 [facility] Comment on above: Performed By: #### 2 106-3 #### [facility] ([id number]) [address] [place] [address] 16478 Eosinophils/100 WBC (Bld) 1.9 % Normal [facility] Comment on above: Performed By: #### 2 106-3 #### [facility] ([id number]) [address] [place] [address] [place] [address] Erythrocyte distribution width (RBC) [Ratio] 13.6 % Normal 11.5-15.0 [facility] Comment on above: Performed By: #### 2 106-3 #### [facility] ([id number]) [address] [place] [address] 20800 Hematocrit (Bld) [Volume fraction] 33.7 % Low 35-47 [facility] Comment on above: Performed By: #### 2 106-3 #### [facility] ([id number]) [address] [place] [address] 83639 Hemoglobin (Bld) [Mass/Vol] 11.7 g/dL Normal 11.7-15.5 [facility] Comment on above: Performed By: #### 2 106-3 #### [facility] ([id number]) [address] [place] [address] 53891 Lymphocytes (Bld) [#/Vol] 3.0 10*3/uL Normal 1.0-3.5 [facility] Comment on above: Performed By: #### 2 106-3 #### [facility] ([id number]) [address] [place] [address] 53882 Lymphocytes/100 WBC (Bld) 29.8 % Normal [facility] Comment on above: Performed By: #### 2 106-3 #### [facility] ([id number]) [address] [place] [address] 47476 MCH (RBC) [Entitic mass] 29.2 pg Normal 27-34 [facility] Comment on above: Performed By: #### 2 106-3 #### [facility] ([id number]) [address] [place] [address] 53988 MCHC (RBC) [Mass/Vol] 34.6 g/dL Normal 32-36 [facility] Comment on above: Performed By: #### 2 106-3 #### [facility] ([id number]) [address] [place] [address] 07125 MCV (RBC) [Entitic vol] 84 fL Normal 80-100 [facility] Comment on above: Performed By: #### 2 106-3 #### [facility] ([id number]) [address] [place] [address] 01104 Monocytes (Bld) [#/Vol] 0.6 10*3/uL Normal 0-0.9 [facility] Comment on above: Performed By: #### 2 106-3 #### [facility] ([id number]) [address] [place] [address] 59157 Monocytes/100 WBC (Bld) 6.5 % Normal [facility] Comment on above: Performed By: #### 2 106-3 #### [facility] ([id number]) [address] [place] [address] 51140 Neutrophils/100 WBC (Bld) 61.1 % Normal [facility] Comment on above: Performed By: #### 2 106-3 #### [facility] ([id number]) [address] [place] [address] 39216 Platelet mean volume (Bld) [Entitic vol] 6.8 fL Low 7-12 [facility] Comment on above: Performed By: #### 2 106-3 #### [facility] ([id number]) [address] [place] [address] 53538 Platelets (Bld) [#/Vol] 307 10*3/uL Normal 150-450 [facility] Comment on above: Performed By: #### 2 106-3 #### [facility] ([id number]) [address] [place] [address] 75883 RBC COUNT 4.00 X10E12/L Normal 3.80-5.20 [facility] Comment on above: Performed By: #### 2 106-3 #### [facility] ([id number]) [address] [place] [address] 55571 WBC (Bld) [#/Vol] 10.0 10*3/uL Normal 4.0-11.0 [facility] Comment on above: Performed By: #### 2 106-3 #### [facility] ([id number]) [address] [place] [address] 28443 MAGNESIUMon 12-29-2023 Magnesium [Mass/Vol] 2.0 mg/dL Normal 1.8-2.6 [facility] Comment on above: Performed By: #### 2 106-3 #### [facility] ([id number]) [address] [place] [address] 77213 HCG ( test) Ql (U)o n 12-11-2023 Beta HCG ( test) Ql (U) Negative Normal NEG [facility] Comment on above: Performed By: #### 2 106-3 #### [facility] ([id number]) [address] [place] [address] 80684 URN MACROSCOPIC NURon 2023 BILIRUBIN BETHANY Negative Normal NEG [facility] Comment on above: Performed By: #### N UM #### [facility] ([id number]) [address] [place] [address] 57853 BLOOD/HGB BETHANY Negative Normal NEG [facility] Comment on above: Performed By: #### N UM #### [facility] ([id number]) [address] [place] [address] [place] [address] GLUCOSE BETHANY Negative Normal NEG [facility] Comment on above: Performed By: #### N UM #### [facility] ([id number]) [address] [place] [address] 93702 KETONES BETHANY Negative Normal NEG [facility] Comment on above: Performed By: #### N UM #### [facility] ([id number]) [address] [place] [address] 14806 LEUKOCYTE ESTERASE BETHANY Negative Normal NEG [facility] Comment on above: Performed By: #### N UM #### [facility] ([id number]) [address] [place] [address] 78454 NITRITE BETHANY Negative Normal NEG [facility] Comment on above: Performed By: #### N UM #### [facility] ([id number]) [address] [place] [address] 71961 PH BETHANY 6.0 Normal 5.0-8.5 [facility] Comment on above: Performed By: #### N UM #### [facility] ([id number]) [address] [place] [address] 40502 PROTEIN BETHANY Negative Normal NEG [facility] Comment on above: Performed By: #### N UM #### [facility] ([id number]) [address] [place] [address] 20931 SPECIFIC GRAVITY BETHANY 1.015 Normal 1.003-[address] [place] [address] Comment on above: Performed By: #### N UM #### [facility] ([id number]) [address] [place] [address] 01301 UROBILINOGEN BETHANY 0.2 eu/dL Normal <1.1 [facility] Comment on above: Performed By: #### N UM #### [facility] ([id number]) [address] [place] [address] 53840 BASIC METABOLIC PANLon 11-24 Anion gap [Moles/Vol] 13 mmol/L Normal 5-15 [facility] Comment on above: Performed By: #### B MP #### [facility] ([id number]) [address] [place] [address] 02502 Calcium [Mass/Vol] 9.0 mg/dL Normal 8.5-10.5 [facility] Comment on above: Performed By: #### B MP #### [facility] ([id number]) [address] [place] [address] 28030 Chloride [Moles/Vol] 103 mmol/L Normal 98-109 [facility] Comment on above: Performed By: #### B MP #### [facility] ([id number]) [address] [place] [address] 35202 CO2 [Moles/Vol] 20 mmol/L Low 22-32 [facility] Comment on above: Performed By: #### B MP #### [facility] ([id number]) [address] [place] [address] 31373 Creatinine [Mass/Vol] 0.69 mg/dL Normal 0.40-1.00 [facility] Comment on above: Result Comment: METH OD TRACEABLE TO IDMS STANDARD Performed By: #### B MP #### [facility] ([id number]) [address] [place] [address] [place] [address] eGFR (CKD-EPI) NON-RACE DEPENDENT >90 Normal >59 [facility] Comment on above: Result Comment: Reported eGFR is based on the CKD-EPI 2020 equation that does not use a race coefficient. Performed By: #### B MP #### [facility] ([id number]) [address] [place] [address] 88576 Glucose [Mass/Vol] 95 mg/dL Normal 65-99 [facility] Comment on above: Performed By: #### B MP #### [facility] ([id number]) [address] [place] [address] [id number] Potassium [Moles/Vol] 2.9 mmol/L Low 3.5-5.0 [facility] Comment on above: Performed By: #### B MP #### [facility] ([id number]) [address] [place] [address] [id number] Sodium [Moles/Vol] 136 mmol/L Normal 134-146 [facility] Comment on above: Performed By: #### B MP #### [facility] ([id number]) [address] [facility], [place] [address] Urea nitrogen [Mass/Vol] 7 mg/dL Normal 5-23 [facility] Comment on above: Performed By: #### B MP #### [facility] ([id number]) [address] [facility], [place] [address] SARS/FLU A+B/RSV by NAAT/Mol ecularon 11-25-2023 SARS/FLU [...] operators who are performing tests using either [employer] or [employer] systems and is limited to laboratories that [...] repeat. Fact Sheet for Healthcare Providers: https://www.fda.gov/media /615327/download Fact Sheet for Patients: https://www.fda.gov/media /676271/download Normal [facility] Comment on above: Performed By: #### C OVFLR #### [facility] ([id number]) [address] [facility], [place] [address] XR FOOT LT MIN 3 VWSon 09-21 [...] Loya MD on 09/22/2023 12:07 AM Normal [facility] XR SPINE LUMBAR 2 OR 3 VWSon [...] Loya MD on 09/22/2023 12:10 AM Normal [facility] XR TIBIA FIBULA LT MIN 2 VWS [...] Loya MD on 09/22/2023 12:09 AM Normal [facility] HCG ( test) Ql (U)o n 09-21-2023 Beta HCG ( test) Ql (U) Negative Normal NEG [facility] Comment on above: Performed By: #### 2 [id number] #### [facility] ([id number]) [address] [place] [address], [place] [address] SARS/FLU A+B/RSV by NAAT/Mol ecularon 07-09-2023 SARS/FLU [...] operators who are performing tests using either [employer] or [employer] systems and is limited to laboratories that [...] repeat. Fact Sheet for Healthcare Providers: https://www.fda.gov/media /136870/download Fact Sheet for Patients: https://www.fda.gov/media /995703/download Normal [facility] Comment on above: Performed By: #### C OVFLR #### [facility] ([id number]) [address] [place] [address] Provider Letteron 02-25-2023 Provider Letter (Inserted Image. Swapna ble to display) February 25, 2023 JENNIFER CARMEN [address] [place] [id number] : 1995 Dear Jennifer , We have been trying to reach you with no success. It is important that you return our call regarding your referral to our office by Jennifer upon receiving this letter. Also, at the time of your call, please provide us with your current information. Thank you for your prompt attention to this matter. Sincerely, [facility] [phone] Normal [facility] Physician Referralon 023 Physician Referral [id number] Normal [facility] Urinalysis - AUTOMATEDon Appearance (U) cloudy [employer] Other Bilirubin Ql (U) Negative [employer] Other Color (U) yellow [employer] Other Glucose Ql (U) Negative [employer] Other Hemoglobin Ql (U) Trace-intact [employer] Other Ketones Ql (U) Negative [employer] Other Leukocyte esterase Test strip Ql (U) Trace [employer] Other Nitrite Ql (U) Negative [employer] Other pH (U) 6.0 [pH] [employer] Other Protein Ql (U) Negative [employer] Other Specific gravity (U) [Rel density] <=1.005 [employer] Other Urobilinogen (U) [Mass/Vol] 0.2 mg/dL [employer] Other Urinalysis - AUTOMATED No rt [employer] Other Quick Strepon 04-26-2022 S. pyogenes Org specific cx Ql (Throat) Negative [employer] Other Quick Strep [employer] Other SARS-CoV-2 (COVID-19) RNA NA A+probe Ql (Resp)on 04-23-2022 SARS-CoV-2 (COVID-19) RNA EMMANUELLE+probe Ql (Unsp spec) Negative [employer] Other Covid-19 PCR (CVDTBH)on 03-16 SARS-CoV-2 (COVID-19) RNA EMMANUELLE+probe Ql (Unsp spec) Not detected Normal NOT DETECTED [facility] Comment on above: Result Comment: This test is not yet approved or cleared by the [place] FDA. When there are no FDA-approved or cleared tests available, and other criteria are met, FDA can make tests available under an emergency access mechanism called an Emergency Use Authorization (EUA). The EUA for this test is supported by the [place] of Health and Human Service's (HHS's) declaration [...] SARS-CoV-2. Performed By: #### C BC #### [facility] [address] [place] [address] Dr. Katrin Ceja SARS-CoV-2 (COVID-19) RNA NA A+probe Ql (Resp)on 03-27-2022 SARS-CoV-2 (COVID-19) RNA EMMANUELLE+probe Ql (Unsp spec) Negative [employer] Other CBC AUTO DIFFon 03-22-2022 BASO # 0.0 103/ul Normal 0.0-0.1 [facility] Comment on above: Performed By: #### L IPID, CMP #### [facility] [address] [place] [address] Dr. Katrin Ceja Basophils/100 WBC (Bld) 0.3 % Normal 0.2-2.0 [facility] Comment on above: Performed By: #### L IPID, CMP #### [facility] [address] [place] [address] Dr. Katrin Ceja EO # 0.2 103/ul Normal 0.0-0.7 [facility] Comment on above: Performed By: #### L IPID, CMP #### [facility] [address] [place] [address] Dr. Katrin Ceja Eosinophils/100 WBC (Bld) 2.2 % Normal 0.9-7.0 [facility] Comment on above: Performed By: #### L IPID, CMP #### [facility] [address] [place] [address] Dr. Katrin Ceja Erythrocyte distribution width (RBC) [Ratio] 11.9 % Normal 11.0-15.0 [facility] Comment on above: Performed By: #### L IPID, CMP #### [facility] [address] [place] [address] Dr. Katrin Ceja Hematocrit (Bld) [Volume fraction] 36.4 % Normal 36.0-48.0 [facility] Comment on above: Performed By: #### L IPID, CMP #### [facility] [address] [place] [address] Dr. Katrin Ceja Hemoglobin (Bld) [Mass/Vol] 12.6 g/dL Normal 12.0-16.0 [facility] Comment on above: Performed By: #### L IPID, CMP #### [facility] [address] [place] [address] Dr. Katrin Ceja IG # 0.03 10e3/ul Normal 0.00-0.03 [facility] Comment on above: Performed By: #### L IPID, CMP #### [facility] [address] [place] [address] Dr. Katrin Ceja IG % 0.3 % Normal 0.0-0.5 [facility] Comment on above: Performed By: #### L IPID, CMP #### [facility] [address] [place] [address] Dr. Katrin Ceja LYMPH # 3.5 103/ul Normal 1.2-3.8 [facility] Comment on above: Performed By: #### L IPID, CMP #### [facility] [address] [place] [address] Dr. Katrin Ceja Lymphocytes/100 WBC (Bld) 33.1 % Normal 20.5-60.0 [facility] Comment on above: Performed By: #### L IPID, CMP #### [facility] [address] [place] [address] Dr. Katrin Ceja MANUAL DIFF REQ NO Normal [facility] Comment on above: Performed By: #### L IPID, CMP #### [facility] [address] [place] [address] Dr. Katrin Ceja MCH (RBC) [Entitic mass] 29.9 pg Normal 26.7-34.0 [facility] Comment on above: Performed By: #### L IPID, CMP #### [facility] [address] [place] [address] Dr. Katrin Ceja MCHC (RBC) [Mass/Vol] 34.6 g/dL Normal 29.9-35.2 [facility] Comment on above: Performed By: #### L IPID, CMP #### [facility] [address] [place] [address] Dr. Katrin Ceja MCV (RBC) [Entitic vol] 86.5 fL Normal 81.0-99.0 [facility] Comment on above: Performed By: #### L IPID, CMP #### [facility] [address] [place] [address] Dr. Katrin Ceja MONO # 0.7 103/ul Normal 0.3-0.8 [facility] Comment on above: Performed By: #### L IPID, CMP #### [facility] [address] [place] [address] Dr. Katrin Ceja Monocytes/100 WBC (Bld) 6.5 % Normal 1.7-12.0 [facility] Comment on above: Performed By: #### L IPID, CMP #### [facility] [address] [place] [address] Dr. Katrin Ceja NEUT # 6.0 103/ul Normal 1.4-6.5 [facility] Comment on above: Performed By: #### L IPID, CMP #### [facility] [address] [place] [address] Dr. Katrin Ceja Neutrophils/100 WBC (Bld) 57.6 % Normal 43.0-75.0 [facility] Comment on above: Performed By: #### L IPID, CMP #### [facility] [address] [place] [address] Dr. Katrin Ceja Platelet mean volume (Bld) [Entitic vol] 8.7 fL Critically low 9.5-13.5 [facility] Comment on above: Performed By: #### L IPID, CMP #### [facility] [address] [place] [address] Dr. Katrin Ceja PLT 282 103/ul Normal 150-450 [facility] Comment on above: Performed By: #### L IPID, CMP #### [facility] [address] [place] [address] Dr. Katrin Ceja RBC 4.21 106/ul Normal 4.20-5.40 [facility] Comment on above: Performed By: #### L IPID, CMP #### [facility] [address] [place] [address] Dr. Katrin Ceja WBC 10.5 103/ul Normal 4.0-11.0 [facility] Comment on above: Performed By: #### L IPID, CMP #### [facility] [address] [place] [address] Dr. Katrin Ceja ER URINE PROFILEon 2 Bilirubin Ql (U) Negative Normal NEGATIVE [facility] Comment on above: Performed By: #### L IPID, CMP #### [facility] [address] [place] [address] Dr. Katrin Ceja Clarity (U) CLEAR Normal CLEAR [facility] Comment on above: Performed By: #### L IPID, CMP #### [facility] [address] [place] [address] Dr. Katrin Ceja Color (U) LT. YELLOW Normal YELLOW [facility] Comment on above: Performed By: #### L IPID, CMP #### [facility] [address] [place] [address] Dr. Katrin Ceja ERUJEFFRYD A micrscopic examina tion will be performed if indicated. Normal [facility] Comment on above: Performed By: #### L IPID, CMP #### [facility] [address] [place] [address] Dr. Katrin Ceja Glucose Ql (U) Negative Normal NEGATIVE [facility] Comment on above: Performed By: #### L IPID, CMP #### [facility] [address] [place] [address] Dr. Katrin Ceja Hemoglobin Ql (U) Negative Normal NEGATIVE [facility] Comment on above: Performed By: #### L IPID, CMP #### [facility] [address] [place] [address] Dr. Katrin Ceja Ketones Ql (U) Negative Normal NEGATIVE [facility] Comment on above: Performed By: #### L IPID, CMP #### [facility] [address] [place] [address] Dr. Katrin Ceja LEUKOCYTES Negative Normal NEGATIVE [facility] Comment on above: Performed By: #### L IPID, CMP #### [facility] [address] [place] [address] Dr. Katrin Ceja Nitrite Ql (U) Negative Normal NEGATIVE [facility] Comment on above: Performed By: #### L IPID, CMP #### [facility] [address] [place] [address] Dr. Katrin Ceja pH (U) 6.0 [pH] Normal 5-9 [facility] Comment on above: Performed By: #### L IPID, CMP #### [facility] [address] [place] [address] Dr. Katrin Ceja SPEC GRAVITY 1.015 Normal 1.005-<=1. 025 [facility] Comment on above: Performed By: #### L IPID, CMP #### [facility] [address] [place] [address] Dr. Katrin Ceja UA PROTEIN Negative Normal NEGATIVE/ TRACE [facility] Comment on above: Performed By: #### L IPID, CMP #### [facility] [address] [place] [address] Dr. Katrin Ceja UR MICRO IND NOT INDICATED Normal [facility] Comment on above: Performed By: #### L IPID, CMP #### [facility] [address] [place] [address] Dr. Katrin Ceja Urobilinogen Qn (U) 0.2 {Jeannie'U}/dL Normal 0.2 - 1. 0 [facility] Comment on above: Performed By: #### L IPID, CMP #### [facility] [address] [place] [address] Dr. Katrin Ceja LIPASEon 03-22-2022 Lipase [Catalytic activity/Vol] 84.0 U/L Normal 73.0-393.0 [facility] Comment on above: Performed By: #### H STROPN, CMP, LIPA #### [facility] [address] [address] [address] Katrin Ceja URon 03-22-2022 , QUAL Negative Normal NEGATIVE [facility] Comment on above: Performed By: #### L IPID, CMP #### [facility] [address] [address] [address] Katrin Ceja PROF 14(COMP METB)on 022 Albumin [Mass/Vol] 3.2 g/dL Critically low 3.4-5.0 [facility] Comment on above: Performed By: #### H STROPN, CMP, LIPA #### [facility] [address] [place] [address] Dr. Katrin Ceja Albumin/Globulin [Mass ratio] 0.8 {ratio} Normal [facility] Comment on above: Performed By: #### H STROPN, CMP, LIPA #### [facility] [address] [place] [address] Dr. Katrin Ceja ALP [Catalytic activity/Vol] 189 U/L Critically high 46-116 [facility] Comment on above: Performed By: #### H STROPN, CMP, LIPA #### [facility] [address] [place] [address] Dr. Katrin Ceja ALT [Catalytic activity/Vol] 31 U/L Normal 14-59 [facility] Comment on above: Performed By: #### H STROPN, CMP, LIPA #### [facility] [address] [place] [address] Dr. Katrin Ceja Anion gap [Moles/Vol] 9.9 mmol/L Normal [facility] Comment on above: Performed By: #### H STROPN, CMP, LIPA #### [facility] [address] [place] [address] Dr. Katrin Ceja AST [Catalytic activity/Vol] 17 U/L Normal 15-37 [facility] Comment on above: Performed By: #### H STROPN, CMP, LIPA #### [facility] [address] [address] [address] Katrin Ceja Bilirubin [Mass/Vol] 0.2 mg/dL Normal 0.2-1.0 [facility] Comment on above: Performed By: #### H STROPN, CMP, LIPA #### [facility] [address] [address] [address] Katrin Ceja Calcium [Mass/Vol] 8.7 mg/dL Normal 8.5-10.1 [facility] Comment on above: Performed By: #### H STROPN, CMP, LIPA #### [facility] [address] [place] [address] Dr. Katrin Ceja Chloride [Moles/Vol] 103 mmol/L Normal 98-107 [facility] Comment on above: Performed By: #### H STROPN, CMP, LIPA #### [facility] [address] [address] [address] Katrin Ceja CO2 [Moles/Vol] 25.4 mmol/L Normal 21.0-32.0 [facility] Comment on above: Performed By: #### H STROPN, CMP, LIPA #### [facility] [address] [place] [address] Dr. Katrin Ceja Creatinine [Mass/Vol] 0.71 mg/dL Normal 0.55-1.02 [facility] Comment on above: Performed By: #### H STROPN, CMP, LIPA #### [facility] [address] [address] [address] Katrin Ceja EGFR-AF MACEDONIAN >60 Normal >=60 [facility] Comment on above: Performed By: #### H STROPN, CMP, LIPA #### [facility] [address] [address] [address] Katrin Ceja EGFR-NON AF MACEDONIAN >60 Normal >=60 [facility] Comment on above: Performed By: #### H STROPN, CMP, LIPA #### [facility] [address] [address] [address] Katrin Ceja Globulin (S) [Mass/Vol] 4.0 g/dL Normal [facility] Comment on above: Performed By: #### H STROPN, CMP, LIPA #### [facility] [address] [address] [address] Katrin Ceja Glucose [Mass/Vol] 106 mg/dL Normal 74-106 [facility] Comment on above: Performed By: #### H STROPN, CMP, LIPA #### [facility] [address] [address] [address] Katrin Ceja Potassium [Moles/Vol] 3.3 mmol/L Critically low 3.5-5.1 [facility] Comment on above: Performed By: #### H STROPN, CMP, LIPA #### [facility] [address] [address] [address] Katrin Ceja Protein [Mass/Vol] 7.2 g/dL Normal 6.4-8.2 [facility] Comment on above: Performed By: #### H STROPN, CMP, LIPA #### [facility] [address] [address] [address] Katrin Ceja Sodium [Moles/Vol] 135 mmol/L Critically low 136-145 [facility] Comment on above: Performed By: #### H STROPN, CMP, LIPA #### [facility] [address] [address] [address] Katrin Ceja Urea nitrogen [Mass/Vol] 5.0 mg/dL Critically low 7.0-18.0 [facility] Comment on above: Performed By: #### H STROPN, CMP, LIPA #### [facility] [address] [address] [address] Katrin Ceja Urea nitrogen/Creatinine [Mass ratio] 7.0 mg/mg Normal [facility] Comment on above: Performed By: #### H STROPN, CMP, LIPA #### [facility] [address] [address] [address] Katrin Ceja TROPONIN, HIGH SENSITIVITYon 03-22-2022 HSTROP <4.0 Normal 4.0-51.3 [facility] Comment on above: Result Comment: CUT- OFF POINTS HAVE BEEN ESTABLISHED BASED ON THE FOURTH UNIVERSAL DEFINITIONS OF MYOCARDIAL INFARCTION. THE UPPER REFERENCE LIMIT (URL) OF TROPONIN, DEFINED THE 99TH PERCENTILE OF cTnI DISTRIBUTION IN A REFERENCE POPULATION, HAS BEEN CONFIRMED THE DECISION THRESHOLD FOR MO DIAGNOSIS. Performed By: #### H STROPN, CMP, LIPA #### [facility] [address] [address] [address] Katrin Ceja XR ABD FLAT UP_PA [...] GERI LASSITER Date: 2022-03-22 01:53 Normal [facility] XR ANKLE LT MIN 3 Von 2021 XR ANKLE LT MIN 3 V EXAM: XR ANKLE LT MO N 3 V HISTORY: Ankle pain COMPARISON: None. TECHNIQUE: 3 views FINDINGS: No osseous lesion, fracture, dislocation or subluxation. Joint spaces are normal. Old posttraumatic ossifications adjacent to the tip of the lateral malleolus. No visualized effusion. No visualized soft tissue edema. IMPRESSION: Normal x-rays Electronically authenticated by: DANNI QUINONES Date: 2022-03-09 19:32 Normal [facility] CBC AUTO DIFFon 02-08-2022 BASO # 0.0 103/ul Normal 0.0-0.1 [facility] Comment on above: Performed By: #### C BC #### [facility] [address] [address] [address] Katrin Ceja Basophils/100 WBC (Bld) 0.3 % Normal 0.2-2.0 [facility] Comment on above: Performed By: #### C BC #### [facility] [address] [address] [address] Katrin Ceja EO # 0.3 103/ul Normal 0.0-0.7 [facility] Comment on above: Performed By: #### C BC #### [facility] [address] [address] [address] Katrin Ceja Eosinophils/100 WBC (Bld) 3.0 % Normal 0.9-7.0 [facility] Comment on above: Performed By: #### C BC #### [facility] [address] [place] [address] Dr. Katrin Ceja Erythrocyte distribution width (RBC) [Ratio] 12.2 % Normal 11.0-15.0 [facility] Comment on above: Performed By: #### C BC #### [facility] [address] [place] [address] Dr. Katrin Ceja Hematocrit (Bld) [Volume fraction] 33.8 % Critically low 36.0-48.0 [facility] Comment on above: Performed By: #### C BC #### [facility] [address] [place] [address] Dr. Katrin Ceja Hemoglobin (Bld) [Mass/Vol] 11.9 g/dL Critically low 12.0-16.0 [facility] Comment on above: Performed By: #### C BC #### [facility] [address] [place] [address] Dr. Katrin Ceja IG # 0.04 10e3/ul Critically high 0.00-0.03 [facility] Comment on above: Performed By: #### C BC #### [facility] [address] [address] [address] Katrin Ceja IG % 0.4 % Normal 0.0-0.5 [facility] Comment on above: Performed By: #### C BC #### [facility] [address] [address] [address] Katrin Ceja LYMPH # 3.0 103/ul Normal 1.2-3.8 [facility] Comment on above: Performed By: #### C BC #### [facility] [address] [place] [address] Dr. Katrin Ceja Lymphocytes/100 WBC (Bld) 28.4 % Normal 20.5-60.0 [facility] Comment on above: Performed By: #### C BC #### [facility] [address] [place] [address] Dr. Katrin Ceja MANUAL DIFF REQ NO Normal [facility] Comment on above: Performed By: #### C BC #### [facility] [address] [place] [address] Dr. Katrin Ceja MCH (RBC) [Entitic mass] 29.8 pg Normal 26.7-34.0 [facility] Comment on above: Performed By: #### C BC #### [facility] [address] [place] [address] Dr. Katrin Ceja MCHC (RBC) [Mass/Vol] 35.2 g/dL Normal 29.9-35.2 [facility] Comment on above: Performed By: #### C BC #### [facility] [address] [place] [address] Dr. Katrin Ceja MCV (RBC) [Entitic vol] 84.7 fL Normal 81.0-99.0 [facility] Comment on above: Performed By: #### C BC #### [facility] [address] [place] [address] Dr. Katrin Ceja MONO # 0.7 103/ul Normal 0.3-0.8 [facility] Comment on above: Performed By: #### C BC #### [facility] [address] [place] [address] Dr. Katrin Ceja Monocytes/100 WBC (Bld) 6.6 % Normal 1.7-12.0 [facility] Comment on above: Performed By: #### C BC #### [facility] [address] [place], [place] [id number] Dr. Katrin Ceja NEUT # 6.4 103/ul Normal 1.4-6.5 [facility] Comment on above: Performed By: #### C BC #### [facility] [address] [place] [address] Dr. Katrin Ceja Neutrophils/100 WBC (Bld) 61.3 % Normal 43.0-75.0 [facility] Comment on above: Performed By: #### C BC #### [facility] [address] [place] [address] Dr. Katrin Ceja Platelet mean volume (Bld) [Entitic vol] 8.9 fL Critically low 9.5-13.5 [facility] Comment on above: Performed By: #### C BC #### [facility] [address] [place] [address] Dr. Katrin eCja PLT 299 103/ul Normal 150-450 [facility] Comment on above: Performed By: #### C BC #### [facility] [address] [place] [address] Dr. Katrin Ceja RBC 3.99 106/ul Critically low 4.20-5.40 [facility] Comment on above: Performed By: #### C BC #### [facility] [address] [place] [address] Dr. Katrin Ceja WBC 10.4 103/ul Normal 4.0-11.0 [facility] Comment on above: Performed By: #### C BC #### [facility] [address] [place] [address] Dr. Katrin Ceja D-DIMERon 02-08-2022 D-DIMER 0.59 mg/L FEU Normal <=0.59 [facility] Comment on above: Performed By: #### L IPID, CMP #### [facility] [address] [place] [address] Dr. Katrin Ceja D-DIMER COMMENTS SEE BELOW Normal [facility] Comment on above: Result Comment: Incr [...] Performed By: #### L IPID, CMP #### [facility] [address] [place] [address] Dr. Katrin Ceja PROF CHEM 8 (BAS METB)on Anion gap [Moles/Vol] 12.8 mmol/L Normal [facility] Comment on above: Performed By: #### C BC #### [facility] [address] [place] [address] Dr. Katrin Ceja Calcium [Mass/Vol] 8.7 mg/dL Normal 8.5-10.1 [facility] Comment on above: Performed By: #### C BC #### [facility] [address] [place] [address] Dr. Katrin Ceja Chloride [Moles/Vol] 102 mmol/L Normal 98-107 [facility] Comment on above: Performed By: #### C BC #### [facility] [address] [place] [address] Dr. Katrin Ceja CO2 [Moles/Vol] 25.9 mmol/L Normal 21.0-32.0 [facility] Comment on above: Performed By: #### C BC #### [facility] [address] [place] [address] Dr. Katrin Ceja Creatinine [Mass/Vol] 0.70 mg/dL Normal 0.55-1.02 [facility] Comment on above: Performed By: #### C BC #### [facility] [address] [place] [address] Dr. Katrin Ceja EGFR-AF MACEDONIAN >60 Normal >=60 [facility] Comment on above: Performed By: #### C BC #### [facility] [address] [place] [address] Dr. Katrin Ceja EGFR-NON AF MACEDONIAN >60 Normal >=60 [facility] Comment on above: Performed By: #### C BC #### [facility] [address] [address] [address] Katrin Ceja Glucose [Mass/Vol] 95 mg/dL Normal 74-[address] [facility] Comment on above: Performed By: #### C BC #### [facility] [address] [address] [address] Katrin Ceja Potassium [Moles/Vol] 2.7 mmol/L Critically low 3.5-5.1 [facility] Comment on above: Result Comment: Test Repeated. Critical Value Verified Performed By: #### C BC #### [facility] [address] [address] [address] Katrin Ceja Sodium [Moles/Vol] 136 mmol/L Normal 136-[address] [facility] Comment on above: Performed By: #### C BC #### [facility] [address] [address] [address] Katrin Ceja Urea nitrogen [Mass/Vol] 3.0 mg/dL Critically low 7.0-18.0 [facility] Comment on above: Performed By: #### C BC #### [facility] [address] [address] [address] Katrin Ceja Urea nitrogen/Creatinine [Mass ratio] 4.3 mg/mg Normal [facility] Comment on above: Performed By: #### C BC #### [facility] [address] [address] [address] Katrin Ceja XR CHEST 2 Von [...] RODGERS Date: 2022-02-08 04:19 Normal [facility] LIPID PROFILEon 06-06-2022 CHOL-HDL RATIO NORM SEE BELOW Normal [facility] Comment on above: Result Comment: 3.3 - 4.4 LOW RISK 4.4 - 7.1 AVERAGE RISK 7.1 - 11.0 MODERATE RISK >11.0 HIGH RISK Performed By: #### L IPID, LIVER #### [facility] [address] [address] [address] Katrin Ceja Cholesterol [Mass/Vol] 126 mg/dL Normal <=200 [facility] Comment on above: Performed By: #### L IPID, LIVER #### [facility] [address] [address] [address] Katrin Ceja Cholesterol in HDL [Mass/Vol] 31 mg/dL Critically low 40-60 [facility] Comment on above: Performed By: #### L IPID, LIVER #### [facility] [address] [address] [address] Katrin Ceja Cholesterol in LDL [Mass/Vol] 59.2 mg/dL Normal [facility] Comment on above: Performed By: #### L IPID, LIVER #### [facility] [address] [address] [address] Katrin Ceja Cholesterol.total/Chol esterol in HDL [Mass ratio] 4.1 {ratio} Normal [facility] Comment on above: Performed By: #### L IPID, LIVER #### [facility] [address] [address] [address] Katrin Ceja HDL NORMAL > or = 60 mg/dl - LO W CARDIOVASCULAR RISK <40 mg/dl - HIGH CARDIOVASCULAR RISK Normal [facility] Comment on above: Performed By: #### L IPID, LIVER #### [facility] [address] [address] [address] Katrin Ceja LDL CALC NORMAL SEE BELOW Normal [facility] Comment on above: Result Comment: <100 mg/dl OPTIMAL 100 - 129 mg/dl NEAR OR ABOVE OPTIMAL 130 - 159 mg/dl BORDERLINE HIGH 160 - 189 mg/dl HIGH >190 mg/dl VERY HIGH Performed By: #### L IPID, LIVER #### [facility] [address] [address] [address] Katrin Ceja Triglyceride [Mass/Vol] 179 mg/dL Critically high <=150 [facility] Comment on above: Performed By: #### L IPID, LIVER #### [facility] [address] [place] [address] Dr. Katrin Ceja VLDL CALC 35.8 mg/dL Normal [facility] Comment on above: Performed By: #### L IPID, LIVER #### [facility] [address] [place] [address] Dr. Katrin Ceja LIVER PROFILEon 12-18-2021 Albumin [Mass/Vol] 3.6 g/dL Normal 3.4-5.0 [facility] Comment on above: Performed By: #### L IPID, LIVER #### [facility] [address] [place] [address] Dr. Katrin Ceja Albumin/Globulin [Mass ratio] 0.8 {ratio} Normal [facility] Comment on above: Performed By: #### L IPID, LIVER #### [facility] [address] [place] [address] Dr. Katrin Ceja ALP [Catalytic activity/Vol] 196 U/L Critically high 46-116 [facility] Comment on above: Performed By: #### L IPID, LIVER #### [facility] [address] [place] [address] Dr. Katrin Ceja ALT [Catalytic activity/Vol] 51 U/L Normal 14-59 [facility] Comment on above: Performed By: #### L IPID, LIVER #### [facility] [address] [place] [address] Dr. Katrin Ceja AST [Catalytic activity/Vol] 22 U/L Normal 15-37 [facility] Comment on above: Performed By: #### L IPID, LIVER #### [facility] [address] [place] [address] Dr. Katrin Ceja BILI, CONJUGATED 0.1 mg/dL Normal 0.0-0.2 [facility] Comment on above: Performed By: #### L IPID, LIVER #### [facility] [address] [place] [address] Dr. Katrin Ceja Bilirubin [Mass/Vol] 0.4 mg/dL Normal 0.2-1.0 [facility] Comment on above: Performed By: #### L IPID, LIVER #### [facility] [address] [address] [address] Katrin Ceja Globulin (S) [Mass/Vol] 4.4 g/dL Normal [facility] Comment on above: Performed By: #### L IPID, LIVER #### [facility] [address] [place] [address] Dr. Katrin Ceja Protein [Mass/Vol] 8.0 g/dL Normal 6.4-8.2 [facility] Comment on above: Performed By: #### L IPID, LIVER #### [facility] [address] [place] [address] Dr. Katrin Ceja XR FOOT RT MIN [...] RIVER SAID Date: 2021-12-07 00:19 Normal [facility] PROF 14(COMP METB)on 022 Albumin [Mass/Vol] 3.6 g/dL Normal 3.4-5.0 [facility] Comment on above: Performed By: #### L IPID, CMP #### [facility] [address] [place] [address] Dr. Katrin Ceja Albumin/Globulin [Mass ratio] 0.8 {ratio} Normal [facility] Comment on above: Performed By: #### L IPID, CMP #### [facility] [address] [place] [address] Dr. Katrin Ceja ALP [Catalytic activity/Vol] 209 U/L Critically high 46-116 [facility] Comment on above: Performed By: #### L IPID, CMP #### [facility] [address] [address] [address] Katrin Ceja ALT [Catalytic activity/Vol] 65 U/L Critically high 14-59 [facility] Comment on above: Performed By: #### L IPID, CMP #### [facility] [address] [place] [address] Dr. Katrin Ceja Anion gap [Moles/Vol] 15.7 mmol/L Normal [facility] Comment on above: Performed By: #### L IPID, CMP #### [facility] [address] [place] [address] Dr. Katrin Ceja AST [Catalytic activity/Vol] 31 U/L Normal 15-37 [facility] Comment on above: Performed By: #### L IPID, CMP #### [facility] [address] [place] [address] Dr. Katrin Ceja Bilirubin [Mass/Vol] 0.2 mg/dL Normal 0.2-1.3 [facility] Comment on above: Performed By: #### L IPID, CMP #### [facility] [address] [place] [address] Dr. Katrin Ceja Calcium [Mass/Vol] 8.8 mg/dL Normal 8.5-10.1 [facility] Comment on above: Performed By: #### L IPID, CMP #### [facility] [address] [place] [address] Dr. Katrin Ceja Chloride [Moles/Vol] 105 mmol/L Normal 98-107 [facility] Comment on above: Performed By: #### L IPID, CMP #### [facility] [address] [place] [address] Dr. Katrin Ceja CO2 [Moles/Vol] 21.3 mmol/L Critically low 22.0-30.0 [facility] Comment on above: Performed By: #### L IPID, CMP #### [facility] [address] [address] [address] Katrin Ceja Creatinine [Mass/Vol] 0.72 mg/dL Normal 0.52-1.04 [facility] Comment on above: Performed By: #### L IPID, CMP #### [facility] [address] [address] [address] Katrin Ceja EGFR-AF MACEDONIAN >60 Normal >=60 [facility] Comment on above: Performed By: #### L IPID, CMP #### [facility] [address] [address] [address] Katrin Ceja EGFR-NON AF MACEDONIAN >60 Normal >=60 [facility] Comment on above: Performed By: #### L IPID, CMP #### [facility] [address] [address] [address] Katrin Ceja Globulin (S) [Mass/Vol] 4.3 g/dL Normal [facility] Comment on above: Performed By: #### L IPID, CMP #### [facility] [address] [place] [address] Dr. Katrin Ceja Glucose [Mass/Vol] 99 mg/dL Normal 74-[address] [facility] Comment on above: Performed By: #### L IPID, CMP #### [facility] [address] [address] [address] Katrin Ceja Potassium [Moles/Vol] 4.0 mmol/L Normal 3.4-5.0 [facility] Comment on above: Performed By: #### L IPID, CMP #### [facility] [address] [place] [address] Dr. Katrin Ceja Protein [Mass/Vol] 7.9 g/dL Normal 6.1-8.[address] [facility] Comment on above: Performed By: #### L IPID, CMP #### [facility] [address] [address] [address] Katrin Ceja Sodium [Moles/Vol] 138 mmol/L Normal 137-[address] [facility] Comment on above: Performed By: #### L IPID, CMP #### [facility] [address] [address] [address] Katrin Ceja Urea nitrogen [Mass/Vol] 13.0 mg/dL Normal 7.0-18.0 [facility] Comment on above: Performed By: #### L IPID, CMP #### [facility] [address] [address] [address] Katrin Ceja Urea nitrogen/Creatinine [Mass ratio] 18.1 mg/mg Normal [facility] Comment on above: Performed By: #### L IPID, CMP #### [facility] [address] [address] [address] Katrin Ceja XR HUMERUS RT MIN [...] by: MODESTA NAVA Date: 2021-10-17 01:46 Normal [facility] XR SHOULDER RT 2V or >on XR SHOULDER RT 2V or > EXAM: XR SHOULDER RT 2V or > HISTORY: Pain right arm pain following fall. COMPARISON: None. TECHNIQUE: Standard 3 views of the right shoulder. FINDINGS: No acute or intrinsic osseous, articular or soft tissue abnormality is seen. IMPRESSION: No acute findings. Electronically authenticated by: MODESTA NAVA Date: 2021-10-17 01:45 Normal [facility] XR WRIST RT MIN 3 Von 2021 XR WRIST RT MIN 3 V EXAM: XR WRIST RT MO N 3 V HISTORY: Pain acute right arm pain following fall. COMPARISON: None. TECHNIQUE: AP, oblique and lateral views of the right wrist. FINDINGS: No acute or intrinsic osseous, articular or soft tissue abnormality is seen. IMPRESSION: No acute right wrist findings. Electronically authenticated by: MODESTA NAVA Date: 2021-10-17 01:44 Normal [facility] AMYLASEon 09-18-2021 Amylase [Catalytic activity/Vol] 34 U/L Normal 31-110 [facility] Comment on above: Performed By: #### P REG #### [facility] [address] [address] [address] Katrin Ceja CBC AUTO DIFFon 09-18-2021 BASO # 0.0 103/ul Normal 0.0-0.1 [facility] Comment on above: Performed By: #### C BC #### [facility] [address] [place] [address] Dr. Katrin Ceja Basophils/100 WBC (Bld) 0.3 % Normal 0.2-2.0 [facility] Comment on above: Performed By: #### C BC #### [facility] [address] [place] [address] Dr. Katrin Ceja EO # 0.2 103/ul Normal 0.0-0.7 [facility] Comment on above: Performed By: #### C BC #### [facility] [address] [place] [address] Dr. Katrin Ceja Eosinophils/100 WBC (Bld) 2.4 % Normal 0.9-7.0 [facility] Comment on above: Performed By: #### C BC #### [facility] [address] [place] [address] Dr. Katrin Ceja Erythrocyte distribution width (RBC) [Ratio] 12.5 % Normal 11.0-15.0 [facility] Comment on above: Performed By: #### C BC #### [facility] [address] [place] [address] Dr. Katrin Ceja Hematocrit (Bld) [Volume fraction] 37.4 % Normal 36.0-48.0 [facility] Comment on above: Performed By: #### C BC #### [facility] [address] [place] [address] Dr. Katrin Ceja Hemoglobin (Bld) [Mass/Vol] 12.3 g/dL Normal 12.0-16.0 [facility] Comment on above: Performed By: #### C BC #### [facility] [address] [place] [address] Dr. Katrin Ceja IG # 0.05 10e3/ul Critically high 0.00-0.03 [facility] Comment on above: Performed By: #### C BC #### [facility] [address] [place] [address] Dr. Katrin Ceja IG % 0.5 % Normal 0.0-0.5 [facility] Comment on above: Performed By: #### C BC #### [facility] [address] [place] [address] Dr. Katrin Ceja LYMPH # 3.1 103/ul Normal 1.2-3.8 [facility] Comment on above: Performed By: #### C BC #### [facility] [address] [place] [address] Dr. Katrin Ceja Lymphocytes/100 WBC (Bld) 31.7 % Normal 20.5-60.0 [facility] Comment on above: Performed By: #### C BC #### [facility] [address] [place] [address] Dr. Katrin Ceja MANUAL DIFF REQ NO Normal [facility] Comment on above: Performed By: #### C BC #### [facility] [address] [place] [address] Dr. Katrin Ceja MCH (RBC) [Entitic mass] 28.9 pg Normal 26.7-34.0 [facility] Comment on above: Performed By: #### C BC #### [facility] [address] [place] [address] Dr. Katrin Ceja MCHC (RBC) [Mass/Vol] 32.9 g/dL Normal 29.9-35.2 [facility] Comment on above: Performed By: #### C BC #### [facility] [address] [place] [address] Dr. Katrin Ceja MCV (RBC) [Entitic vol] 88.0 fL Normal 81.0-99.0 [facility] Comment on above: Performed By: #### C BC #### [facility] [address] [place] [address] Dr. Katrin Ceja MONO # 0.7 103/ul Normal 0.3-0.8 [facility] Comment on above: Performed By: #### C BC #### [facility] [address] [place] [address] Dr. Katrin Ceja Monocytes/100 WBC (Bld) 6.7 % Normal 1.7-12.0 [facility] Comment on above: Performed By: #### C BC #### [facility] [address] [place] [address] Dr. Katrin Ceja NEUT # 5.7 103/ul Normal 1.4-6.5 [facility] Comment on above: Performed By: #### C BC #### [facility] [address] [place] [address] Dr. Katrin Ceja Neutrophils/100 WBC (Bld) 58.4 % Normal 43.0-75.0 [facility] Comment on above: Performed By: #### C BC #### [facility] [address] [place] [address] Dr. Katrin Ceja Platelet mean volume (Bld) [Entitic vol] 8.8 fL Critically low 9.5-13.5 [facility] Comment on above: Performed By: #### C BC #### [facility] [address] [place] [address] Dr. Katrin Ceja PLT 265 103/ul Normal 150-450 [facility] Comment on above: Performed By: #### C BC #### [facility] [address] [place] [address] Dr. Katrin Ceja RBC 4.25 106/ul Normal 4.20-5.40 [facility] Comment on above: Performed By: #### C BC #### [facility] [address] [place] [address] Dr. Katrin Ceja WBC 9.7 103/ul Normal 4.0-11.0 [facility] Comment on above: Performed By: #### C BC #### [facility] [address] [place], [place] [id number] Dr. Katrin Ceja CT ABD/PELV W CONon [...] ISAIAH FAROOQ Date: 2021-09-18 03:51 Normal [facility] ER URINE PROFILEon 2 Bilirubin Ql (U) Negative Normal NEGATIVE [facility] Comment on above: Performed By: #### C BC #### [facility] [address] [place] [address] Dr. Katrin Ceja Clarity (U) CLEAR Normal CLEAR [facility] Comment on above: Performed By: #### C BC #### [facility] [address] [place] [address] Dr. Katrin Ceja Color (U) LT. YELLOW Normal YELLOW [facility] Comment on above: Performed By: #### C BC #### [facility] [address] [place] [address] Dr. Katrin Ceja ERUNIRAV A micrscopic examina tion will be performed if indicated. Normal [facility] Comment on above: Performed By: #### C BC #### [facility] [address] [place] [address] Dr. Katrin Ceja Glucose Ql (U) Negative Normal NEGATIVE [facility] Comment on above: Performed By: #### C BC #### [facility] [address] [place] [address] Dr. Katrin Ceja Hemoglobin Ql (U) SMALL Abnormal NEGATIVE [facility] Comment on above: Performed By: #### C BC #### [facility] [address] [place] [address] Dr. Katrin Ceja Ketones Ql (U) Negative Normal NEGATIVE [facility] Comment on above: Performed By: #### C BC #### [facility] [address] [place] [address] Dr. Katrin Ceja LEUKOCYTES Negative Normal NEGATIVE [facility] Comment on above: Performed By: #### C BC #### [facility] [address] [place] [address] Dr. Katrin Ceja Nitrite Ql (U) Negative Normal NEGATIVE [facility] Comment on above: Performed By: #### C BC #### [facility] [address] [place] [address] Dr. Katrin Ceja pH (U) 7.5 [pH] Normal 5-9 [facility] Comment on above: Performed By: #### C BC #### [facility] [address] [place] [address] Dr. Katrin Ceja SPEC GRAVITY 1.010 Normal 1.005-<=1. 025 [facility] Comment on above: Performed By: #### C BC #### [facility] [address] [place] [address] Dr. Katrin Ceja UA PROTEIN Negative Normal NEGATIVE/ TRACE [facility] Comment on above: Performed By: #### C BC #### [facility] [address] [place] [address] Dr. Katrin Ceja UR MICRO IND INDICATED Normal [facility] Comment on above: Performed By: #### C BC #### [facility] [address] [place] [address] Dr. Katrin Ceja Urobilinogen Qn (U) 0.2 {Jeannie'U}/dL Normal 0.2 - 1. 0 [facility] Comment on above: Performed By: #### C BC #### [facility] [address] [address] [address] Katrin Ceja LIPASEon 09-18-2021 Lipase [Catalytic activity/Vol] 81.0 U/L Normal 23.0-300.0 [facility] Comment on above: Performed By: #### P REG #### [facility] [address] [place] [address] Dr. Katrin Ceja URon 09-18-2021 , QUAL Negative Normal NEGATIVE [facility] Comment on above: Performed By: #### C BC #### [facility] [address] [address] [address] Katrin Ceja PROF 14(COMP METB)on 022 Albumin [Mass/Vol] 3.2 g/dL Critically low 3.5-5.0 [facility] Comment on above: Performed By: #### P REG #### [facility] [address] [place] [address] Dr. Katrin Ceja Albumin/Globulin [Mass ratio] 0.8 {ratio} Normal [facility] Comment on above: Performed By: #### P REG #### [facility] [address] [place] [address] Dr. Katrin Ceja ALP [Catalytic activity/Vol] 216 U/L Critically high 38-126 [facility] Comment on above: Performed By: #### P REG #### [facility] [address] [place] [address] Dr. Katrin Ceja ALT [Catalytic activity/Vol] 109 U/L Critically high 9-52 [facility] Comment on above: Performed By: #### P REG #### [facility] [address] [address] [address] Katrin Ceja Anion gap [Moles/Vol] 10.5 mmol/L Normal [facility] Comment on above: Performed By: #### P REG #### [facility] [address] [place] [address] Dr. Katrin Ceja AST [Catalytic activity/Vol] 66 U/L Critically high 14-36 [facility] Comment on above: Performed By: #### P REG #### [facility] [address] [address] [address] Katrin Ceja Bilirubin [Mass/Vol] 0.2 mg/dL Normal 0.2-1.3 [facility] Comment on above: Performed By: #### P REG #### [facility] [address] [address] [address] Katrin Ceja Calcium [Mass/Vol] 8.3 mg/dL Critically low 8.4-10.2 [facility] Comment on above: Performed By: #### P REG #### [facility] [address] [address] [address] Katrin Ceja Chloride [Moles/Vol] 103 mmol/L Normal 98-107 [facility] Comment on above: Performed By: #### P REG #### [facility] [address] [address] [address] Katrin Ceja CO2 [Moles/Vol] 26.2 mmol/L Normal 22.0-30.0 [facility] Comment on above: Performed By: #### P REG #### [facility] [address] [address] [address] Katrin Ceja Creatinine [Mass/Vol] 0.81 mg/dL Normal 0.52-1.04 [facility] Comment on above: Performed By: #### P REG #### [facility] [address] [address] [address] Katrin Ceja EGFR-AF MACEDONIAN >60 Normal >=60 [facility] Comment on above: Performed By: #### P REG #### [facility] [address] [address] [address] Katrin Ceja EGFR-NON AF MACEDONIAN >60 Normal >=60 [facility] Comment on above: Performed By: #### P REG #### [facility] [address] [address] [address] Katrin Ceja Globulin (S) [Mass/Vol] 4.1 g/dL Normal [facility] Comment on above: Performed By: #### P REG #### [facility] Laboratory [address] [address] [address] Katrin Ceja Glucose [Mass/Vol] 90 mg/dL Normal 74-[address] [facility] Comment on above: Performed By: #### P REG #### [facility] [address] [place] [address] Dr. Katrin Ceja Potassium [Moles/Vol] 3.7 mmol/L Normal 3.4-5.0 [facility] Comment on above: Performed By: #### P REG #### [facility] [address] [place] [address] Dr. Katrin Ceja Protein [Mass/Vol] 7.3 g/dL Normal 6.1-8.2 [facility] Comment on above: Performed By: #### P REG #### [facility] [address] [place] [address] Dr. Katrin Ceja Sodium [Moles/Vol] 136 mmol/L Critically low 137-145 [facility] Comment on above: Performed By: #### P REG #### [facility] [address] [place] [address] Dr. Katrin Ceja Urea nitrogen [Mass/Vol] 5.0 mg/dL Critically low 7.0-17.0 [facility] Comment on above: Performed By: #### P REG #### [facility] [address] [place] [address] Dr. Katrin Ceja Urea nitrogen/Creatinine [Mass ratio] 6.2 mg/mg Normal [facility] Comment on above: Performed By: #### P REG #### [facility] [address] [place] [address] Dr. Katrin Ceja URINE MICROSCOPIC ONLYon BACTERIA NONE SEEN Normal NONE SEEN [facility] Comment on above: Performed By: #### C BC #### [facility] [address] [place] [address] Dr. Katrin Ceja Bacteria identified Cx Nom (U) NOT INDICATED Normal [facility] Comment on above: Performed By: #### C BC #### [facility] [address] [place] [address] Dr. Katrin Ceja CAST NONE SEEN Normal NONE SEEN [facility] Comment on above: Performed By: #### C BC #### [facility] [address] [place] [address] Dr. Katrin Ceja Crystals LM Nom (Urine sed) NONE SEEN Normal NONE SEEN [facility] Comment on above: Performed By: #### C BC #### [facility] [address] [place] [address] Dr. Katrin Ceja Epithelial cells LM Ql (Urine sed) FEW Abnormal NONE SEEN /RARE [facility] Comment on above: Performed By: #### C BC #### [facility] [address] [place] [address] Dr. Katrin Ceaj MUCOUS NONE SEEN Normal NONE SEEN [facility] Comment on above: Performed By: #### C BC #### [facility] [address] [place] [address] Dr. Katrni Ceja RBC NONE SEEN Abnormal 0-2 [facility] Comment on above: Performed By: #### C BC #### [facility] [address] [place] [address] Dr. Katrin Ceja WBC NONE SEEN Normal NONE SEEN [facility] Comment on above: Performed By: #### C BC #### [facility] [address] [place] [address] Dr. Katrin Ceja XR ABD FLAT UP_PA [...] ISAIAH FAROOQ Date: 2021-09-18 02:00 Normal [facility] CBC AUTO DIFFon 07-18-2021 BASO # 0.0 103/ul Normal 0.0-0.1 [facility] Comment on above: Performed By: #### C BC #### [facility] [address] [address] [address] Katrin Ceja Basophils/100 WBC (Bld) 0.3 % Normal 0.2-2.0 [facility] Comment on above: Performed By: #### C BC #### [facility] [address] [address] [address] Katrin Ceja EO # 0.2 103/ul Normal 0.0-0.7 [facility] Comment on above: Performed By: #### C BC #### [facility] [address] [address] [address] Katrin Ceja Eosinophils/100 WBC (Bld) 1.7 % Normal 0.9-7.0 [facility] Comment on above: Performed By: #### C BC #### [facility] [address] [place] [address] Dr. Katrin Ceja Erythrocyte distribution width (RBC) [Ratio] 13.1 % Normal 11.0-15.0 [facility] Comment on above: Performed By: #### C BC #### [facility] [address] [place] [address] Dr. Katrin Ceja Hematocrit (Bld) [Volume fraction] 42.0 % Normal 36.0-48.0 [facility] Comment on above: Performed By: #### C BC #### [facility] [address] [place] [address] Dr. Katrin Ceja Hemoglobin (Bld) [Mass/Vol] 13.7 g/dL Normal 12.0-16.0 [facility] Comment on above: Performed By: #### C BC #### [facility] [address] [place] [address] Dr. Katrin Ceja IG # 0.07 10e3/ul Critically high 0.00-0.03 [facility] Comment on above: Performed By: #### C BC #### [facility] [address] [place] [address] Dr. Katrin Ceja IG % 0.6 % Critically high 0.0-0.5 [facility] Comment on above: Performed By: #### C BC #### [facility] [address] [address] [address] Katrin Ceja LYMPH # 2.9 103/ul Normal 1.2-3.8 [facility] Comment on above: Performed By: #### C BC #### [facility] [address] [address] [address] Katrin Ceja Lymphocytes/100 WBC (Bld) 27.1 % Normal 20.5-60.0 [facility] Comment on above: Performed By: #### C BC #### [facility] [address] [place] [address] Dr. Katrin Ceja MANUAL DIFF REQ NO Normal [facility] Comment on above: Performed By: #### C BC #### [facility] [address] [place] [address] Dr. Katrin Ceja MCH (RBC) [Entitic mass] 29.3 pg Normal 26.7-34.0 [facility] Comment on above: Performed By: #### C BC #### [facility] [address] [place] [address] Dr. Katrin Ceja MCHC (RBC) [Mass/Vol] 32.6 g/dL Normal 29.9-35.2 [facility] Comment on above: Performed By: #### C BC #### [facility] [address] [place] [address] Dr. Katrin Ceja MCV (RBC) [Entitic vol] 89.7 fL Normal 81.0-99.0 [facility] Comment on above: Performed By: #### C BC #### [facility] [address] [place] [address] Dr. Katrin Ceja MONO # 0.9 103/ul Critically high 0.3-0.8 [facility] Comment on above: Performed By: #### C BC #### [facility] [address] [place] [address] Dr. Katrin Ceja Monocytes/100 WBC (Bld) 8.2 % Normal 1.7-12.0 [facility] Comment on above: Performed By: #### C BC #### [facility] [address] [id number] Katrin Ceja NEUT # 6.7 103/ul Critically high 1.4-6.5 [facility] Comment on above: Performed By: #### C BC #### [facility] [address] [id number] Katrin Ceja Neutrophils/100 WBC (Bld) 62.1 % Normal 43.0-75.0 [facility] Comment on above: Performed By: #### C BC #### [facility] [address] [address] [address] Katrin Ceja Platelet mean volume (Bld) [Entitic vol] 9.7 fL Normal 9.5-13.5 [facility] Comment on above: Performed By: #### C BC #### [facility] [address] [address] [address] Katrin Ceja PLT 334 103/ul Normal 150-450 [facility] Comment on above: Performed By: #### C BC #### [facility] [address] [address] [address] Katrin Ceja RBC 4.68 106/ul Normal 4.20-5.40 [facility] Comment on above: Performed By: #### C BC #### [facility] [address] [place] [address] Dr. Katrin Ceja WBC 10.8 103/ul Normal 4.0-11.0 [facility] Comment on above: Performed By: #### C BC #### [facility] [address] [address] [address] Katrin Ceja GLYCOHEMOGLOBIN A1Con 2021 ADA RECOMMENDATION ADA THERAPEUTIC TARG ET 6.0 - 7.0 ACTION SUGGESTED > 7.0 Normal [facility] Comment on above: Performed By: #### C BC #### [facility] [address] [place] [address] Dr. Katrin Ceja Glucose [Mass/Vol] 105 mg/dL Normal [facility] Comment on above: Performed By: #### C BC #### [facility] [address] [place] [address] Dr. Katrin Ceja HbA1c (Bld) [Mass fraction] 5.3 % Normal <=6.0 [facility] Comment on above: Performed By: #### C BC #### [facility] [address] [address] [address] Katrin Ceja LIPID PROFILEon 07-18-2021 CHOL-HDL RATIO NORM SEE BELOW Normal [facility] Comment on above: Result Comment: 3.3 - 4.4 LOW RISK 4.4 - 7.1 AVERAGE RISK 7.1 - 11.0 MODERATE RISK >11.0 HIGH RISK Performed By: #### L IPID, CMP #### [facility] [address] [address] [address] Katrin Ceja Cholesterol [Mass/Vol] 302 mg/dL Critically high <=200 [facility] Comment on above: Performed By: #### L IPID, CMP #### [facility] [address] [address] [address] Katrin Ceja Cholesterol in HDL [Mass/Vol] 39 mg/dL Normal [facility] Comment on above: Performed By: #### L IPID, CMP #### [facility] [address] [address] [address] Katrin Ceja Cholesterol in LDL [Mass/Vol] 207.0 mg/dL Normal [facility] Comment on above: Performed By: #### L IPID, CMP #### [facility] [address] [address] [address] Katrin Ceja Cholesterol.total/Chol esterol in HDL [Mass ratio] 7.7 {ratio} Normal [facility] Comment on above: Performed By: #### L IPID, CMP #### [facility] [address] [address] [address] Katrin Ceja HDL NORMAL > or = 60 mg/dl - LO W CARDIOVASCULAR RISK <40 mg/dl - HIGH CARDIOVASCULAR RISK Normal [facility] Comment on above: Performed By: #### L IPID, CMP #### [facility] [address] [address] [address] Katrin Ceja LDL CALC NORMAL SEE BELOW Normal [facility] Comment on above: Result Comment: <100 mg/dl OPTIMAL 100 - 129 mg/dl NEAR OR ABOVE OPTIMAL 130 - 159 mg/dl BORDERLINE HIGH 160 - 189 mg/dl HIGH >190 mg/dl VERY HIGH Performed By: #### L IPID, CMP #### [facility] [address] [address] [address] Katrin Ceja Triglyceride [Mass/Vol] 280 mg/dL Critically high <=150 [facility] Comment on above: Performed By: #### L IPID, CMP #### [facility] [address] [address] [address] Katrin Ceja VLDL CALC 56.0 mg/dL Normal [facility] Comment on above: Performed By: #### L IPID, CMP #### [facility] [address] [place] [address] Dr. Katrin Ceja PROF 14(COMP METB)on 022 Albumin [Mass/Vol] 3.5 g/dL Normal 3.5-5.0 [facility] Comment on above: Performed By: #### L IPID, CMP #### [facility] [address] [place] [address] Dr. Katrin Ceja Albumin/Globulin [Mass ratio] 0.7 {ratio} Normal [facility] Comment on above: Performed By: #### L IPID, CMP #### [facility] [address] [place] [address] Dr. Katrin Ceja ALP [Catalytic activity/Vol] 291 U/L Critically high 38-126 [facility] Comment on above: Performed By: #### L IPID, CMP #### [facility] [address] [address] [address] Katrin Ceja ALT [Catalytic activity/Vol] 174 U/L Critically high 9-52 [facility] Comment on above: Performed By: #### L IPID, CMP #### [facility] [address] [place] [address] Dr. Katrin Ceja Anion gap [Moles/Vol] 15.3 mmol/L Normal [facility] Comment on above: Performed By: #### L IPID, CMP #### [facility] [address] [address] [address] Katrin Ceja AST [Catalytic activity/Vol] 97 U/L Critically high 14-36 [facility] Comment on above: Performed By: #### L IPID, CMP #### [facility] [address] [address] [address] Katrin Ceja Bilirubin [Mass/Vol] 0.4 mg/dL Normal 0.2-1.3 [facility] Comment on above: Performed By: #### L IPID, CMP #### [facility] [address] [address] [address] Katrin Ceja Calcium [Mass/Vol] 9.3 mg/dL Normal 8.4-10.2 [facility] Comment on above: Performed By: #### L IPID, CMP #### [facility] [address] [place] [address] Dr. Katrin Ceja Chloride [Moles/Vol] 99 mmol/L Normal 98-107 [facility] Comment on above: Performed By: #### L IPID, CMP #### [facility] [address] [address] [address] Katrin Ceja CO2 [Moles/Vol] 24.1 mmol/L Normal 22.0-30.0 [facility] Comment on above: Performed By: #### L IPID, CMP #### [facility] [address] [address] [address] Katrin Ceja Creatinine [Mass/Vol] 0.65 mg/dL Normal 0.52-1.04 [facility] Comment on above: Performed By: #### L IPID, CMP #### [facility] [address] [address] [address] Katrin Ceja EGFR-AF MACEDONIAN >60 Normal >=60 [facility] Comment on above: Performed By: #### L IPID, CMP #### [facility] [address] [address] [address] Katrin Ceja EGFR-NON AF MACEDONIAN >60 Normal >=60 [facility] Comment on above: Performed By: #### L IPID, CMP #### [facility] [address] [address] [address] Katrin Ceja Globulin (S) [Mass/Vol] 5.0 g/dL Normal [facility] Comment on above: Performed By: #### L IPID, CMP #### [facility] [address] [address] [address] Katrin Ceja Glucose [Mass/Vol] 86 mg/dL Normal 74-106 [facility] Comment on above: Performed By: #### L IPID, CMP #### [facility] [address] [address] [address] Katrin Ceja Potassium [Moles/Vol] 4.4 mmol/L Normal 3.4-5.0 [facility] Comment on above: Performed By: #### L IPID, CMP #### [facility] [address] [place] [address] Dr. Katrin Ceja Protein [Mass/Vol] 8.5 g/dL Critically high 6.1-8.2 [facility] Comment on above: Performed By: #### L IPID, CMP #### [facility] [address] [address] [address] Katrin Ceja Sodium [Moles/Vol] 134 mmol/L Critically low 137-145 [facility] Comment on above: Performed By: #### L IPID, CMP #### [facility] [address] [address] [address] Katrin Ceja Urea nitrogen [Mass/Vol] 8.0 mg/dL Normal 7.0-17.0 [facility] Comment on above: Performed By: #### L IPID, CMP #### [facility] [address] [address] [address] Katrin Ceja Urea nitrogen/Creatinine [Mass ratio] 12.3 mg/mg Normal [facility] Comment on above: Performed By: #### L IPID, CMP #### [facility] [address] [address] [address] Katrin Ceja AMYLASEon 05-01-2021 AMYL <30 Critically low 31-110 [facility] Comment on above: Performed By: #### P REG #### [facility] [address] [place] [address] Dr. Katrni Ceja CBC AUTO DIFFon 05-01-2021 BASO # 0.0 103/ul Normal 0.0-0.1 [facility] Comment on above: Performed By: #### L IPID, CMP #### [facility] [address] [place] [address] Dr. Katrin Ceja Basophils/100 WBC (Bld) 0.3 % Normal 0.2-2.0 [facility] Comment on above: Performed By: #### L IPID, CMP #### [facility] [address] [place] [address] Dr. Katrin Ceja EO # 0.1 103/ul Normal 0.0-0.7 [facility] Comment on above: Performed By: #### L IPID, CMP #### [facility] [address] [place] [address] Dr. Katrin Ceja Eosinophils/100 WBC (Bld) 0.4 % Critically low 0.9-7.0 [facility] Comment on above: Performed By: #### L IPID, CMP #### [facility] [address] [place] [address] Dr. Katrin Ceja Erythrocyte distribution width (RBC) [Ratio] 13.0 % Normal 11.0-15.0 [facility] Comment on above: Performed By: #### L IPID, CMP #### [facility] [address] [place] [address] Dr. Katrin Ceja Hematocrit (Bld) [Volume fraction] 37.7 % Normal 36.0-48.0 [facility] Comment on above: Performed By: #### L IPID, CMP #### [facility] [address] [place] [address] Dr. Katrin Ceja Hemoglobin (Bld) [Mass/Vol] 12.5 g/dL Normal 12.0-16.0 [facility] Comment on above: Performed By: #### L IPID, CMP #### [facility] [address] [place] [address] Dr. Katrin Ceja IG # 0.09 10e3/ul Critically high 0.00-0.03 [facility] Comment on above: Performed By: #### L IPID, CMP #### [facility] [address] [address] [address] Katrin Ceja IG % 0.6 % Critically high 0.0-0.5 [facility] Comment on above: Performed By: #### L IPID, CMP #### [facility] [address] [address] [address] Katrin Ceja LYMPH # 1.9 103/ul Normal 1.2-3.8 [facility] Comment on above: Performed By: #### L IPID, CMP #### [facility] [address] [address] [address] Katrin eCja Lymphocytes/100 WBC (Bld) 12.1 % Critically low 20.5-60.0 [facility] Comment on above: Performed By: #### L IPID, CMP #### [facility] [address] [place] [address] Dr. Katrin Ceja MANUAL DIFF REQ NO Normal [facility] Comment on above: Performed By: #### L IPID, CMP #### [facility] [address] [address] [address] Katrin Ceja MCH (RBC) [Entitic mass] 28.8 pg Normal 26.7-34.0 [facility] Comment on above: Performed By: #### L IPID, CMP #### [facility] [address] [address] [address] Katrin Ceja MCHC (RBC) [Mass/Vol] 33.2 g/dL Normal 29.9-35.2 [facility] Comment on above: Performed By: #### L IPID, CMP #### [facility] [address] [address] [address] Katrin Ceja MCV (RBC) [Entitic vol] 86.9 fL Normal 81.0-99.0 [facility] Comment on above: Performed By: #### L IPID, CMP #### [facility] [address] [address] [address] Katrin Ceja MONO # 1.1 103/ul Critically high 0.3-0.8 [facility] Comment on above: Performed By: #### L IPID, CMP #### [facility] [address] [address] [address] Katrin Ceaj Monocytes/100 WBC (Bld) 7.1 % Normal 1.7-12.0 [facility] Comment on above: Performed By: #### L IPID, CMP #### [facility] [address] [address] [address] Katrin Ceja NEUT # 12.3 103/ul Critically high 1.4-6.5 [facility] Comment on above: Performed By: #### L IPID, CMP #### [facility] [address] [place] [address] Dr. Katrin Ceja Neutrophils/100 WBC (Bld) 79.5 % Critically high 43.0-75.0 [facility] Comment on above: Performed By: #### L IPID, CMP #### [facility] [address] [place] [address] Dr. Katrin Ceja Platelet mean volume (Bld) [Entitic vol] 8.7 fL Critically low 9.5-13.5 [facility] Comment on above: Performed By: #### L IPID, CMP #### [facility] [address] [place] [address] Dr. Katrin Ceja PLT 329 103/ul Normal 150-450 [facility] Comment on above: Performed By: #### L IPID, CMP #### [facility] [address] [place] [address] Dr. Katrin Ceja RBC 4.34 106/ul Normal 4.20-5.40 [facility] Comment on above: Performed By: #### L IPID, CMP #### [facility] [address] [address] [address] Katrin Ceja WBC 15.5 103/ul Critically high 4.0-11.0 [facility] Comment on above: Performed By: #### L IPID, CMP #### [facility] [address] ABD/PELV W CONon [...] RAHMAN Date: 2021-05-01 20:30 Normal [facility] LIPASEon 05-01-2021 Lipase [Catalytic activity/Vol] 64.0 U/L Normal 23.0-300.0 [facility] Comment on above: Performed By: #### P REG #### [facility] [address] [address] [address] Katrin Ceja LIVER PROFILEon 05-01-2021 Albumin [Mass/Vol] 3.3 g/dL Critically low 3.5-5.0 [facility] Comment on above: Performed By: #### L IPID, CMP #### [facility] [address] [address] [address] Katrin Ceja Albumin/Globulin [Mass ratio] 0.6 {ratio} Normal [facility] Comment on above: Performed By: #### L IPID, CMP #### [facility] [address] [place] [address] Dr. Katrin Ceja ALP [Catalytic activity/Vol] 412 U/L Critically high 38-126 [facility] Comment on above: Performed By: #### L IPID, CMP #### [facility] [address] [address] [address] Katrin Ceja ALT [Catalytic activity/Vol] 124 U/L Critically high 9-52 [facility] Comment on above: Performed By: #### L IPID, CMP #### [facility] [address] [address] [address] Katrin Ceja AST [Catalytic activity/Vol] 61 U/L Critically high 14-36 [facility] Comment on above: Performed By: #### L IPID, CMP #### [facility] [address] [address] [address] Katrin Ceja BILI, CONJUGATED 0.2 mg/dL Normal 0.0-0.3 [facility] Comment on above: Performed By: #### L IPID, CMP #### [facility] [address] [place] [address] Dr. Katrin Ceja Bilirubin [Mass/Vol] 0.4 mg/dL Normal 0.2-1.3 [facility] Comment on above: Performed By: #### L IPID, CMP #### [facility] [address] [address] [address] Katrin Ceja Globulin (S) [Mass/Vol] 5.1 g/dL Normal [facility] Comment on above: Performed By: #### L IPID, CMP #### [facility] [address] [address] [address] Katrin Ceja Protein [Mass/Vol] 8.4 g/dL Critically high 6.1-8.2 [facility] Comment on above: Performed By: #### L IPID, CMP #### [facility] [address] [address] [address] Katrin Ceja PREG HCG QUALon 05-01-2021 , QUAL Negative Normal NEGATIVE [facility] Comment on above: Performed By: #### P REG #### [facility] [address] [place] [address] Dr. Katrin Ceja PROF CHEM 8 (BAS METB)on Anion gap [Moles/Vol] 17.1 mmol/L Normal [facility] Comment on above: Performed By: #### P REG #### [facility] [address] [address] [address] Katrin Ceja Calcium [Mass/Vol] 8.9 mg/dL Normal 8.4-10.2 [facility] Comment on above: Performed By: #### P REG #### [facility] [address] [address] [address] Katrin Ceja Chloride [Moles/Vol] 100 mmol/L Normal 98-107 [facility] Comment on above: Performed By: #### P REG #### [facility] [address] [address] [address] Katrin Ceja CO2 [Moles/Vol] 21.1 mmol/L Critically low 22.0-30.0 [facility] Comment on above: Performed By: #### P REG #### [facility] [address] [address] [address] Katrin Ceja Creatinine [Mass/Vol] 0.78 mg/dL Normal 0.52-1.04 [facility] Comment on above: Performed By: #### P REG #### [facility] [address] [address] Dr. Katrin Ceja EGFR-AF MACEDONIAN >60 Normal >=60 [facility] Comment on above: Performed By: #### P REG #### [facility] [address] [address] [address] Katrin Ceja EGFR-NON AF MACEDONIAN >60 Normal >=60 [facility] Comment on above: Performed By: #### P REG #### [facility] [address] [address] [address] Katrin Ceja Glucose [Mass/Vol] 97 mg/dL Normal 74-106 [facility] Comment on above: Performed By: #### P REG #### [facility] [address] [place] [address] Dr. Katrin Ceja Potassium [Moles/Vol] 4.2 mmol/L Normal 3.4-5.0 [facility] Comment on above: Performed By: #### P REG #### [facility] [address] [place] [address] Dr. Katrin Ceja Sodium [Moles/Vol] 134 mmol/L Critically low 137-145 [facility] Comment on above: Performed By: #### P REG #### [facility] [address] [place] [address] Dr. Katrin Ceja Urea nitrogen [Mass/Vol] 6.0 mg/dL Critically low 7.0-17.0 [facility] Comment on above: Performed By: #### P REG #### [facility] [address] [place] [address] Dr. Katrin Ceja Urea nitrogen/Creatinine [Mass ratio] 7.7 mg/mg Normal [facility] Comment on above: Performed By: #### P REG #### [facility] [address] [place] [address] Dr. Katrin Ceja CBC AUTO DIFFon 04-29-2021 BASO # 0.1 103/ul Normal 0.0-0.1 [facility] Comment on above: Performed By: #### L IPID, CMP #### [facility] [address] [place] [address] Dr. Katrin Ceja Basophils/100 WBC (Bld) 0.4 % Normal 0.2-2.0 [facility] Comment on above: Performed By: #### L IPID, CMP #### [facility] [address] [place] [address] Dr. Katrin Ceja EO # 0.2 103/ul Normal 0.0-0.7 [facility] Comment on above: Performed By: #### L IPID, CMP #### [facility] [address] [place] [address] Dr. Katrin Ceja Eosinophils/100 WBC (Bld) 1.7 % Normal 0.9-7.0 [facility] Comment on above: Performed By: #### L IPID, CMP #### [facility] [address] [place] [address] Dr. Katrin Ceja Erythrocyte distribution width (RBC) [Ratio] 12.9 % Normal 11.0-15.0 [facility] Comment on above: Performed By: #### L IPID, CMP #### [facility] [address] [place] [address] Dr. Katrin Ceja Hematocrit (Bld) [Volume fraction] 39.0 % Normal 36.0-48.0 [facility] Comment on above: Performed By: #### L IPID, CMP #### [facility] [address] [place] [address] Dr. Katrin Ceja Hemoglobin (Bld) [Mass/Vol] 12.9 g/dL Normal 12.0-16.0 [facility] Comment on above: Performed By: #### L IPID, CMP #### [facility] [address] [place] [address] Dr. Katrin Ceja IG # 0.08 10e3/ul Critically high 0.00-0.03 [facility] Comment on above: Performed By: #### L IPID, CMP #### [facility] [address] [place] [address] Dr. Katrin Ceja IG % 0.6 % Critically high 0.0-0.5 [facility] Comment on above: Performed By: #### L IPID, CMP #### [facility] [address] [place] [address] Dr. Katrin Ceja LYMPH # 3.2 103/ul Normal 1.2-3.8 [facility] Comment on above: Performed By: #### L IPID, CMP #### [facility] [address] [place] [address] Dr. Katrin Ceja Lymphocytes/100 WBC (Bld) 24.4 % Normal 20.5-60.0 [facility] Comment on above: Performed By: #### L IPID, CMP #### [facility] [address] [place] [address] Dr. Katrin Ceja MANUAL DIFF REQ NO Normal [facility] Comment on above: Performed By: #### L IPID, CMP #### [facility] [address] [place] [address] Dr. Katrin Ceja MCH (RBC) [Entitic mass] 29.1 pg Normal 26.7-34.0 [facility] Comment on above: Performed By: #### L IPID, CMP #### [facility] [address] [place] [address] Dr. Katrin Ceja MCHC (RBC) [Mass/Vol] 33.1 g/dL Normal 29.9-35.2 [facility] Comment on above: Performed By: #### L IPID, CMP #### [facility] [address] [place] [address] Dr. Katrin Ceja MCV (RBC) [Entitic vol] 88.0 fL Normal 81.0-99.0 [facility] Comment on above: Performed By: #### L IPID, CMP #### [facility] [address] [place] [address] Dr. Katrin Ceja MONO # 1.2 103/ul Critically high 0.3-0.8 [facility] Comment on above: Performed By: #### L IPID, CMP #### [facility] [address] [place] [address] Dr. Katrin Ceja Monocytes/100 WBC (Bld) 9.2 % Normal 1.7-12.0 [facility] Comment on above: Performed By: #### L IPID, CMP #### [facility] [address] [place] [address] Dr. Katrin Ceja NEUT # 8.3 103/ul Critically high 1.4-6.5 [facility] Comment on above: Performed By: #### L IPID, CMP #### [facility] [address] [place] [address] Dr. Katrin Ceja Neutrophils/100 WBC (Bld) 63.7 % Normal 43.0-75.0 [facility] Comment on above: Performed By: #### L IPID, CMP #### [facility] [address] [place] [address] Dr. Katrin Ceja Platelet mean volume (Bld) [Entitic vol] 9.2 fL Critically low 9.5-13.5 [facility] Comment on above: Performed By: #### L IPID, CMP #### [facility] [address] [place] [address] Dr. Katrin Ceja PLT 384 103/ul Normal 150-450 [facility] Comment on above: Performed By: #### L IPID, CMP #### [facility] [address] [place] [address] Dr. Katrin Ceja RBC 4.43 106/ul Normal 4.20-5.40 [facility] Comment on above: Performed By: #### L IPID, CMP #### [facility] [address] [place] [address] Dr. Katrin Ceja WBC 13.1 103/ul Critically high 4.0-11.0 [facility] Comment on above: Performed By: #### L IPID, CMP #### [facility] [address] [place] [address] ABD/PELV W CONon [...] Lorenzo LAN Date: 2021-04-29 02:49 Normal [facility] LACTATE/LACTIC ACIDon 2020 Lactate [Moles/Vol] 1.2 mmol/L Normal 0.7-2.0 [facility] Comment on above: Performed By: #### C BC #### [facility] [address] [place] [address] Dr. Katrin Ceja PROF 14(COMP METB)on 021 Albumin [Mass/Vol] 3.4 g/dL Critically low 3.5-5.0 [facility] Comment on above: Performed By: #### C BC #### [facility] [address] [place] [address] Dr. Katrin Ceja Albumin/Globulin [Mass ratio] 0.7 {ratio} Normal [facility] Comment on above: Performed By: #### C BC #### [facility] [address] [address] [address] Katrin Ceja ALP [Catalytic activity/Vol] 359 U/L Critically high 38-126 [facility] Comment on above: Performed By: #### C BC #### [facility] [address] [place] [address] Dr. Katrin Ceja ALT [Catalytic activity/Vol] 193 U/L Critically high 9-52 [facility] Comment on above: Performed By: #### C BC #### [facility] [address] [place] [address] Dr. Katrin Ceja Anion gap [Moles/Vol] 13.3 mmol/L Normal [facility] Comment on above: Performed By: #### C BC #### [facility] [address] [place] [address] Dr. Katrin Ceja AST [Catalytic activity/Vol] 115 U/L Critically high 14-36 [facility] Comment on above: Performed By: #### C BC #### [facility] [address] [place] [address] Dr. Katrin Ceja Bilirubin [Mass/Vol] 0.5 mg/dL Normal 0.2-1.3 [facility] Comment on above: Performed By: #### C BC #### [facility] [address] [place] [address] Dr. Katrin Ceja Calcium [Mass/Vol] 9.5 mg/dL Normal 8.4-10.2 [facility] Comment on above: Performed By: #### C BC #### [facility] [address] [place] [address] Dr. Katrin Ceja Chloride [Moles/Vol] 101 mmol/L Normal 98-107 [facility] Comment on above: Performed By: #### C BC #### [facility] [address] [place] [address] Dr. Katrin Ceja CO2 [Moles/Vol] 23.7 mmol/L Normal 22.0-30.0 [facility] Comment on above: Performed By: #### C BC #### [facility] [address] [address] [address] Katrin Ceja Creatinine [Mass/Vol] 0.83 mg/dL Normal 0.52-1.04 [facility] Comment on above: Performed By: #### C BC #### [facility] [address] [place] [address] Dr. Katrin Ceja EGFR-AF MACEDONIAN >60 Normal >=60 [facility] Comment on above: Performed By: #### C BC #### [facility] [address] [place] [address] Dr. Katrin Ceja EGFR-NON AF MACEDONIAN >60 Normal >=60 [facility] Comment on above: Performed By: #### C BC #### [facility] [address] [address] [address] Katrin Ceja Globulin (S) [Mass/Vol] 5.1 g/dL Normal [facility] Comment on above: Performed By: #### C BC #### [facility] [address] [place] [address] Dr. Katrin Ceja Glucose [Mass/Vol] 102 mg/dL Normal 74-106 [facility] Comment on above: Performed By: #### C BC #### [facility] [address] [place] [address] Dr. Katrin Ceja Potassium [Moles/Vol] 4.0 mmol/L Normal 3.4-5.0 [facility] Comment on above: Performed By: #### C BC #### [facility] [address] [place] [address] Dr. Katrin Ceja Protein [Mass/Vol] 8.5 g/dL Critically high 6.1-8.2 [facility] Comment on above: Performed By: #### C BC #### [facility] [address], [place] [address] Dr. Katrin Ceja Sodium [Moles/Vol] 134 mmol/L Critically low 137-145 [facility] Comment on above: Performed By: #### C BC #### [facility] [address], [place] [address] Dr. Katrin Ceja Urea nitrogen [Mass/Vol] 6.0 mg/dL Critically low 7.0-17.0 [facility] Comment on above: Performed By: #### C BC #### [facility] [address], [place] [address] Dr. Katrin Ceja Urea nitrogen/Creatinine [Mass ratio] 7.2 mg/mg Normal [facility] Comment on above: Performed By: #### C BC #### [facility] [address], [place] [address] Dr. Katrin Ceja XR CHEST 1 Von [...] by: HILDA GU Date: 2021-04-28 23:45 Normal [facility] Acetaminophen (Tylenol) Leve kit 03-22-2019 Acetaminophen [Mass/Vol] <10 Normal 10.0-30.0 [facility] Comment on above: Performed By: #### 1 4581-3, 15396-9, 74689-6, 56754-7j8, 53428-8, 63757-5 #### [facility] [address], [place] Alcohol (Ethanol) Levelon Ethanol [Mass/Vol] mg/dL Normal 0.00-0.00 [facility] Comment on above: Performed By: #### 1 4581-3, 16345-0, 65077-9, 71131-1j0, 79340-5, 59878-6 #### [facility] [address], [place] CBC with Differentialon 09-0 Basophils (Bld) [#/Vol] 0.10 thou/mcL Normal 0.00-0.20 [facility] Comment on above: Performed By: #### 5 7021-8 #### [facility] [address] [place] [address] Basophils/100 WBC (Bld) 0.7 % Normal 0.0-2.0 [facility] Comment on above: Performed By: #### 5 7021-8 #### [address] Eosinophils (Bld) [#/Vol] 0.40 thou/mcL Normal 0.00-0.70 [facility] Comment on above: Performed By: #### 7021-8 #### [address] Eosinophils/100 WBC (Bld) 3.7 % Normal 0.0-7.0 [facility] Comment on above: Performed By: #### 5 7021-8 #### [address] Erythrocyte distribution width (RBC) [Entitic vol] 12.6 % Normal 11.0-14.8 [facility] Comment on above: Performed By: #### 5 7021-8 #### [address] Hematocrit (Bld) [Volume fraction] 38.5 % Normal 35.0-45.0 [facility] Comment on above: Performed By: #### 7021-8 #### [facility] [address] [place] [address] Hemoglobin (Bld) [Mass/Vol] 13.3 g/dL Normal 12.0-16.0 [facility] Comment on above: Performed By: #### 5 7021-8 #### [address] Lymphocytes (Bld) [#/Vol] 3.10 thou/mcL Normal 1.00-4.80 [facility] Comment on above: Performed By: #### 5 7021-8 #### [address] Lymphocytes/100 WBC (Bld) 30.1 % Normal 22.0-44.0 [facility] Comment on above: Performed By: #### 5 7021-8 #### [address] MCH (RBC) [Entitic mass] 30.8 Picograms Normal 27.0-34.0 [facility] Comment on above: Performed By: #### 5 7021-8 #### [address] MCHC (RBC) [Mass/Vol] 34.7 g/dL Normal 32.0-36.0 [facility] Comment on above: Performed By: #### 5 7021-8 #### [address] MCV (RBC) [Entitic vol] 88.8 fL Normal 80.0-97.0 [facility] Comment on above: Performed By: #### 5 7021-8 #### [address] Monocytes (Bld) [#/Vol] 1.10 thou/mcL High 0.00-0.90 [facility] Comment on above: Performed By: #### 5 7021-8 #### [address] Monocytes/100 WBC (Bld) 10.4 % Normal 0.0-12.0 [facility] Comment on above: Performed By: #### 5 7021-8 #### [address] Neutrophils (Bld) [#/Vol] 5.60 thou/mcL Normal 1.80-7.70 [facility] Comment on above: Performed By: #### 5 7021-8 #### [facility] [address], [place] Neutrophils/100 WBC (Bld) 55.1 % Normal 40.0-70.0 [facility] Comment on above: Performed By: #### 5 7021-8 #### [facility] [address], [place] Platelet mean volume (Bld) [Entitic vol] 7.5 fL Normal 6.2-12.1 [facility] Comment on above: Performed By: #### 5 7021-8 #### [facility] [address], [place] Platelets (Bld) [#/Vol] 280 thou/mcL Normal 142-424 [facility] Comment on above: Performed By: #### 5 7021-8 #### [facility] [address], [place] RBC (Bld) [#/Vol] 4.33 million/mcL Normal 3.80-5.10 [facility] Comment on above: Performed By: #### 5 7021-8 #### [facility] [address], [place] WBC (Bld) [#/Vol] 10.2 thou/mcL Normal 4.6-10.2 [facility] Comment on above: Performed By: #### 5 7021-8 #### [facility] [address], [place] Comprehensive Metabolic Pane kit 03-22-2019 Albumin [Mass/Vol] 4.2 g/dL Normal 3.5-4.8 [facility] Comment on above: Performed By: #### 1 4581-3, 21411-9, 30125-9, 69070-5f7, 45302-8, 42110-0 #### [facility] [address], [place] ALP [Catalytic activity/Vol] 96 Units/L High 32-91 [facility] Comment on above: Performed By: #### 1 4581-3, 01143-4, 51588-8, 77847-1w0, 24014-1, 67810-9 #### [facility] [address], [place] ALT [Catalytic activity/Vol] 25 Units/L Normal 14-63 [facility] Comment on above: Performed By: #### 1 4581-3, 36784-2, 03026-0, 44296-7g5, 22568-1, 72424-3 #### [facility] [address], [place] Anion gap [Moles/Vol] 9.0 mmol/L Normal 6.0-18.0 [facility] Comment on above: Performed By: #### 1 4581-3, 43442-0, 29034-7, 54013-9i2, 89616-7, 91498-9 #### [facility] [address], [place] AST [Catalytic activity/Vol] 24 Units/L Normal 15-41 [facility] Comment on above: Performed By: #### 1 4581-3, 80275-9, 01886-6, 96675-1o9, 62894-8, 30902-3 #### [facility] [address], [place] Bilirubin [Mass/Vol] 0.5 mg/dL Normal 0.3-1.2 [facility] Comment on above: Performed By: #### 1 4581-3, 93805-7, 73672-9, 14599-2c3, 49278-7, 41925-0 #### [facility] [address], [place] Calcium [Mass/Vol] 8.9 mg/dL Normal 8.9-10.3 [facility] Comment on above: Performed By: #### 1 4581-3, 41444-9, 82282-3, 73973-4e5, 58742-5, 33315-1 #### [facility] [address], [place] Chloride [Moles/Vol] 107 mmol/L Normal 98-107 [facility] Comment on above: Performed By: #### 1 4581-3, 93785-9, 65125-2, 86246-0g0, 30579-6, 16760-7 #### [facility] [address], [place] CO2 [Moles/Vol] 23 mmol/L Normal 22-32 [facility] Comment on above: Performed By: #### 1 4581-3, 43659-1, 13751-3, 26063-5g2, 76632-7, 75660-8 #### [facility] [address], [place] Creatinine [Mass/Vol] 0.68 mg/dL Normal 0.60-1.30 [facility] Comment on above: Performed By: #### 1 4581-3, 75046-5, 52061-9, 94827-5b4, 30716-8, 23133-9 #### [facility] [address], [place] Glucose [Mass/Vol] 90 mg/dL Normal 70-99 [facility] Comment on above: Result Comment: U pdated ADA Reference Range A normal fasting glucose concentration is less than 100 mg/dL. An impaired fasting glucose concentration is 100-125 mg/dL. A provisional diagnosis of diabetes mellitus can be made when a fasting glucose concentration is greater than 125 mg/dL. Performed By: #### 1 4581-3, 20437-5, 59887-9, 31219-5m0, 84941-9, 47771-2 #### [facility] [address], [place] Potassium [Moles/Vol] 3.4 mmol/L Low 3.6-5.1 [facility] Comment on above: Performed By: #### 1 4581-3, 98164-3, 83241-4, 33246-0y0, 22077-6, 88959-9 #### [facility] [address], [place] Protein [Mass/Vol] 7.4 g/dL Normal 6.1-7.9 [facility] Comment on above: Performed By: #### 1 4581-3, 54269-4, 56444-9, 85841-4x4, 17080-0, 71336-4 #### [facility] [address], [place] Sodium [Moles/Vol] 139 mmol/L Normal 136-145 [facility] Comment on above: Performed By: #### 1 4581-3, 69277-3, 91557-0, 21554-9p3, 42274-6, 68078-6 #### [facility] [address], [place] Urea nitrogen (BldV) [Mass/Vol] 17 mg/dL Normal 8-20 [facility] Comment on above: Performed By: #### 1 4581-3, 06791-1, 16166-4, 31601-1u8, 76757-5, 46447-3 #### [facility] [address], [place] Drug Abuse Screen 8 Urineon 03-22-2019 Barbiturates Screen Ql (U) Negative Normal [facility] Comment on above: Performed By: #### 1 228-1 #### [facility] [address], [place] Amphetamines Ql (U) Positive Abnormal [facility] Comment on above: Result Comment: Conf irmatory testing available upon request. Performed By: #### 1 228-1 #### [facility] [address], [place] Benzodiazepines cutoff Screen (U) [Mass/Vol] Negative Normal [facility] Comment on above: Performed By: #### 1 2286-1 #### [facility] [address], [place] Cocaine Ql (U) Positive Abnormal [facility] Comment on above: Result Comment: Conf irmatory testing available upon request. Performed By: #### 1 228-1 #### [facility] [address], [place] Interpretation and review of laboratory results Negative Normal [facility] Comment on above: Performed By: #### 1 2286-1 #### [id number] Methadone Screen Ql (U) Negative Normal NEGATIVE-N EGATIVE [facility] Comment on above: Performed By: #### 1 2286-1 #### [address] Opiates Screen Ql (U) Negative Normal [facility] Comment on above: Result Comment: INTE RPRETATION [...] ONLY. Performed By: #### 1 2286-1 #### [address] Tetrahydrocannabinol Screen Ql (U) Positive Abnormal [facility] Comment on above: Result Comment: Conf irmatory testing available upon request. Performed By: #### 1 2286-1 #### [address] ED Pat [facility] 03-22-2019 ED Pat [address] [address] Emergency Department Discharge Instructions JENNIFER AGUILLON , [...] [facility] JENNIFER Naranjo -[id number] [facility]# [phone] PLEASE READ THE FOLLOWING REGARDING YOUR MEDICATIONS [...] doses are changed, or new medications (including ciqs-ukf-hsmncas products) are added. If you have any [...] UNTIL YOU TALK TO YOUR DOCTOR None [address] [address] Emergency Department Discharge Instructions Name: JENNIFER AGUILLON Current Date: 03/22/2019 19:32:22 : 1995 Primary Physician: Physician, No PCP We would like to thank you for choosing [facility] for your emergency medical needs. [...] health of those around you. [facility] offers many resources to help with smoking cessation. Call the [place] Tobacco Quit Line at 6-402-RTAK-NOW ( ). High blood pressure: Your screening [...] deadly infections. Discuss this with your child's plug wirer, or Public Health Department. Your family practice doctor can determine if you need pneumonia or flu vaccine. The [facility] Department can be reached at . Substance Abuse Program: Concerns with addiction to alcohol, benzodiazepines (Ativan or Xanax) and Opiates (Heroin, Percocet, OxyContin, Methadone or Fentanyl)? [facility] offers an inpatient Substance Abuse Program [...] outpatient care will be established. Please call [phone] to get help today. Domestic Violence: If you are a victim of domestic violence (physical, verbal, or emotional), you are not alone. Discuss this with your physician or a friend and call the [place] Domestic Violence Hotline or [place] Domestic Violence Hotline for assistance and support. [...] physician, call the Physician Referral Line at (837) 848-HXCS (8310). Suicide Hotline: Your mental and emotional well-being is important. If you are in a mental health crisis or are having thoughts of suicide, please call the nationwide suicide hotline, anytime day or night, at 9-058-920-ZUBA (4889). Community Grounds Restoration Specialist: You may be contacted by your local fire department for a follow up visit from a community manipulator operator. The community manipulator operator can help with a home safety check; follow up care, and general home care management. Pharmacy Information: Below is a list of 24 hour pharmacies that we are aware of. We suggest that you call the specific pharmacy for their hours before traveling to a location. Hours may vary on holidays. [facility] [place] [address], [place] [phone] [place], [place] [address] [phone] [place], [place] [address] [phone] [address], [place] [phone] [address], [place] [phone] [address] [place], [place] [phone] [place] [address] [phone] Take all medications as directed. If you need prescription assistance, contact the following agencies: ?? [employer]cription Assistance at or www.pparx.org ?? [place] at or www.[employer] Technologiesbestrx.org ?? www.[employer] SiciliaRx.com is a site with many valuable coupons Patient Education Materials JENNIFER AGUILLON has been given the following patient education materials: <><><><><><><><><><><><>< ><><><><><><><><><><><><> <> Patient Visit Summary Signature JENNIFER AGUILLON has been given the following list of patient education materials, prescriptions and follow-up instructions: I, JENNIFER AGUILLON, have received the above patient education materials/instructions and have verbalized understanding: Date Time Patient Signature Date Time Provider Signature Normal [facility] GFRaaon 03-22-2019 GFR/1.73 sq M predicted among blacks MDRD (S/P/Bld) [Vol rate/Area] mL/min/{1.73_m2} Normal [facility] Comment on above: Result Comment: The MDRD equation has not been validated for those over 70 years, women, patients with serious co-morbid conditions, or with extremes of body size, muscle mass of nutritional status. Performed By: #### 1 4581-3, 68586-9, 00223-5, 96432-8x6, 68891-9, 59810-3 #### [address] GFRbbon 03-22-2019 GFR/1.73 sq M predicted among non-blacks MDRD (S/P/Bld) [Vol rate/Area] mL/min/{1.73_m2} Normal [facility] Comment on above: Performed By: #### 1 4581-3, 43067-9, 19255-5, 79116-5k0, 82154-5, 21152-0 #### [place] [address] [place], [place] Test Urineon 03-22 HCG ( test) Ql (U) Negative Normal [facility] Comment on above: Performed By: #### 2 106-3 #### [facility] [address] [place], [place] Salicylate Levelon 9 Salicylates [Mass/Vol] mg/dL Normal 2.8-30.0 [facility] Comment on above: Performed By: #### 1 4581-3, 82957-3, 35760-5, 19784-1f4, 26474-3, 32073-1 #### [facility] [address] [place] [address] Medication Managementon 10-0 Medication Management [id number]#1.00OTGTIF F Normal [facility] ED Clinical Summaryon 2017 ED Clinical Summary [facility] - Emergency [address] [place] [address] ed Clinical SummaryPERSON INFORMATIONName: JENNIFER AGUILLON Age: 22 Years Sex: FEMALEDOB: [birth year] MRN: Acct#:Visit Reason: Dental pain; Dental pain; DENTAL PAIN Arrival: 04/11/18 20:21:00 Discharge: 04/11/18 20:55:00LOS: 000 00:34 Check In: 04/11/18 20:21:00 Checkout:04/11/18 20:55:00Address:[address] [facility] [address]IMI: TAI WATTS INFORMATIONProvider Role Assigned UnassAlistair Henderson [...] 04/11/18 20:29:00.Dental caries, dental painHistory of Present Qnwnfxx88-kfub-oan white female presents to the emergency room [...] her poor dental state..Impression and PlanDiagnosisDental caries (SJQ36-FG K02.9, Discharge, Medical)Pain, dental (VEJ62-DX K08.89, Discharge, Medical)PlanCondition: Improved, Stable.Disposition: Discharged: to home.Prescriptions: Launch prescriptionsPharmacy:tra MADol 50 mg oral tablet (Prescribe): 50 mg = 1 tab(s), PO, q4hr, PRN: as needed for pain, 12 tab(s), 0 Refill(s)amoxicillin 500 mg oral capsule (Prescribe): 1,000 mg = 2 cap(s), PO, BID, 40 cap(s), 0 Refill(s).Patient was given the following educational materials: Dental Pain, Edjs-uo-Uekv, Dental Caries, Adult, Gkok-cg-Ibfp, Dental Caries, Adult, Moko-sw-Cqjp, Dental Pain, Rbup-sh-Wmmn.Follow up with: SOLOMON WATTS Within 3 to 5 days.Counseled: Patient, Regarding diagnosis, Regarding treatment plan, Regarding prescription, Patient indicated understanding of instructions.DISCHARGE INFORMATION:Discharge Disposition: HomeDischarge Location: HomePATIENT EDUCATION INFORMATIONInstructions: Dental Caries, Adult, Jtmy-jy-Tnva; Dental Pain, Nhwy-qo-OcfvZqdpav-Up:[facility] h: Address: When:SOLOMON WATTS [facility] [place] [address] [facility] () Within 3 to 5 daysDIAGNOSIS:Dental caries; Dental pain; Pain, dentalPatient Understands: Yes - Patient/family/caregiver verbalizes understanding of instructions givenComment: [facility] ED Note - Physicianon 2017 ED Note - Physician Patient: DOMINIC AGUILLON : 22 years Sex: FEMALE : [birth year]Associated Diagnoses: Dental caries; Pain, dentalAuthor: Alistair Maxsipramod InformationTime seen: Date & time 04/11/18 20:29:00.Dental caries, dental painHistory of Present Ygenxjm76-kedj-set white female presents to the emergency room [...] her poor dental state..Impression and PlanDiagnosisDental caries (MBI61-KM K02.9, Discharge, Medical)Pain, dental (URO72-VI K08.89, Discharge, Medical)PlanCondition: Improved, Stable.Disposition: Discharged: to home.Prescriptions: Launch prescriptionsPharmacy:tra MADol 50 mg oral tablet (Prescribe): 50 mg = 1 tab(s), PO, q4hr, PRN: as needed for pain, 12 tab(s), 0 Refill(s)amoxicillin 500 mg oral capsule (Prescribe): 1,000 mg = 2 cap(s), PO, BID, 40 cap(s), 0 Refill(s).Patient was given the following educational materials: Dental Pain, Ljgy-ze-Sklw, Dental Caries, Adult, Kbur-ot-Qney, Dental Caries, Adult, Fexs-pe-Zfhp, Dental Pain, Alnd-rr-Zfsh.Follow up with: SOLOMON WATTS Within 3 to 5 days.Counseled: Patient, Regarding diagnosis, Regarding treatment plan, Regarding prescription, Patient indicated understanding of instructions.[Electronica lly Signed on: 04/11/2018 20:42 EDT] Alistair Salomon MD[Verified on: 04/11/2018 20:42 EDT] Alistair Salomon MD [facility] ED Patient Education Noteon 04-11-2018 ED Patient [...] mouth and teeth. This keeps them healthy.? Rock View your teeth 2 times a day. Use toothpaste with fluoride in it.? Floss your teeth once a day.? If your dentist prescribed an antibiotic medicine to treat an infection, take it as told. Do not stop taking the antibiotic even if your condition gets better.? Keep all follow-up visits as told by your dentist. This is important. This includes all cleanings.Preventing dental caries? Rock View your teeth every morning and night. Use [...] Reviewed: 03/17/2017Kenny Interactive Patient Education ? 2017 Xplenty.Dental PainDental pain may be caused by many [...] Released: 12/17/2008 Document Revised: 12/06/2016 Document Reviewed: 06/27/2015Elsevier Interactive Patient Education ? 2018 Xplenty. Normal [facility] ED Patient Summaryon 018 ED Patient Summary [facility] - Emergency [address] [place] [address] pATIENT DISCHARGE INSTRUCTIONSPatient InformationName: JENNIFER AGUILLON Age: 22 YearsDate of : [birth year]MRN: [id number] Visit: Dental pain; Dental pain; DENTAL PAINArrival Time: 04/11/18 20:21:00Phone: Primary Care Physician: SOLOMON WATTSAttdevon Physician: Alistair Max MDComment:Visit Diagnosis:Diagnoses This Visit Dental caries (K02.9) Dental pain (K08.8) Dental pain ([id number]) Dental pain ([id number]) Pain, dental (K08.89)If you received any narcotics, [...] or sign any legal documentsWith: Address: When:[address] [place] [address] Business (1) Within 3 to 5 daysMedication Information:The exam and treatment you received today in the [facility] Emergency Department were for an urgent problem and are not intended as complete care. It is important for you to follow up with a doctor, nurse practitioner, or physician?s speech assistant for ongoing care. If your symptoms [...] of medications post discharge. Please inform your healthcare administration intern/provider of your visit and for further instruction [...] mouth and teeth. This keeps them healthy.? Rock View your teeth 2 times a day. Use toothpaste with fluoride in it.? Floss your teeth once a day.? If your dentist prescribed an antibiotic medicine to treat an infection, take it as told. Do not stop taking the antibiotic even if your condition gets better.? Keep all follow-up visits as told by your dentist. This is important. This includes all cleanings.Preventing dental caries? Rock View your teeth every morning and night. Use [...] Reviewed: 03/17/2017Kenny Interactive Patient Education ? 2017 Xplenty.Dental PainDental pain may be caused by many [...] Reviewed: 06/27/2015Kenny Interactive Patient Education ? 2018 Xplenty. Viruses or BacteriaWhat?s got you sick?Antibiotics only [...] for Disease Control and Prevention March 2014 [facility] Vital Signs Date Time Vital Sign Value Performing Clinician Facility 05-28-2024 14:27-0500 Body height 167.6 cm Radha Santoyo DO Work Phone: [facility] [employer] [facility] 05-28-2024 14:27-0500 Body mass index (BMI) [Ratio] 34.49 kg/m2 Radha Santoyo DO Work Phone: [facility] [employer] [facility] 05-28-2024 14:27-0500 Body weight 96.93 kg Radha Santoyo DO Work Phone: [facility] 05-28-2024 14:27-0500 Diastolic blood pressure 83 mm[Hg] Radha Santoyo DO Work Phone: [facility] [employer] [facility] 05-28-2024 14:27-0500 Heart rate 96 /min Radha Santoyo DO Work Phone: [facility] 05-28-2024 14:27-0500 SaO2% (BldA) [Mass fraction] 96 % Radha Santoyo DO Work Phone: [facility] 05-28-2024 14:27-0500 Systolic blood pressure 136 mm[Hg] Radha Santoyo DO Work Phone: [facility] 05-19-2024 09:42-0500 Body mass index (BMI) [Ratio] 35.02 kg/m2 Kenia Washington PROCESSING ASSOCIATE Work Phone: [facility] 05-19-2024 09:42-0500 Body weight 98.43 kg Kenia Washington PROCESSING ASSOCIATE Work Phone: [facility] 05-19-2024 09:42-0500 Diastolic blood pressure 74 mm[Hg] Kenia Washington PROCESSING ASSOCIATE Work Phone: [facility] 05-19-2024 09:42-0500 Systolic blood pressure 128 mm[Hg] Kenia Washington PROCESSING ASSOCIATE Work Phone: [facility] 04-01-2024 11:12-0400 Body height 167.6 cm Kenia Washington PROCESSING ASSOCIATE Work Phone: [facility] 04-01-2024 11:12-0400 Body mass index (BMI) [Ratio] 34.02 kg/m2 Kenia Washington PROCESSING ASSOCIATE Work Phone: [facility] 04-01-2024 11:12-0400 Body weight 95.62 kg Kenia Washington PROCESSING ASSOCIATE Work Phone: [facility] 04-01-2024 11:12-0400 Diastolic blood pressure 82 mm[Hg] Kenia Washington PROCESSING ASSOCIATE Work Phone: [facility] 04-01-2024 11:12-0400 Heart rate 95 /min Kenia Washington PROCESSING ASSOCIATE Work Phone: [facility] 04-01-2024 11:12-0400 SaO2% (BldA) [Mass fraction] 98 % Kenia Washington PROCESSING ASSOCIATE Work Phone: [facility] 04-01-2024 11:12-0400 Systolic blood pressure 138 mm[Hg] Kenia Washington PROCESSING ASSOCIATE Work Phone: [facility] 03-19-2024 00:22-0400 Diastolic blood pressure 81 mm[Hg] [facility] 03-19-2024 00:22-0400 Heart rate 97 /min [facility] 03-19-2024 00:22-0400 Respiratory rate 18 /min [facility] 03-19-2024 00:22-0400 SaO2% (BldA) [Mass fraction] 98 % [facility] 03-19-2024 00:22-0400 Systolic blood pressure 113 mm[Hg] [facility] 03-18-2024 21:56-0400 Body temperature 98.2 [degF] [facility] 03-18-2024 21:54-0400 Body height 167.64 cm [facility] 03-18-2024 21:54-0400 Body weight 97.52 kg [facility] 03-05-2024 12:39-0400 Body height 167.64 cm [facility] 03-05-2024 12:39-0400 Body mass index (BMI) [Ratio] 37.1 kg/m2 [facility] 03-05-2024 12:39-0400 Body temperature 97.6 [degF] [facility] 03-05-2024 12:39-0400 Body weight 104.32 kg [facility] 03-05-2024 12:39-0400 Diastolic blood pressure 84 mm[Hg] [facility] 03-05-2024 12:39-0400 Heart rate 90 /min [facility] 03-05-2024 12:39-0400 Respiratory rate 18 /min [facility] 03-05-2024 12:39-0400 SaO2% (BldA) [Mass fraction] 99 % [facility] 03-05-2024 12:39-0400 Systolic blood pressure 118 mm[Hg] [facility] 05-07-2023 13:15-0400 Body height 167.64 cm Key Patel Other [facility] Other 05-07-2023 13:15-0400 Body mass index (BMI) [Ratio] 37.54 kg/m2 Key Patel Other [facility] Other 05-07-2023 13:15-0400 Body temperature 97.8 [degF] Key Patel Other [facility] Other 05-07-2023 13:15-0400 Body weight 105.51 kg Key Patel Other [facility] Other 05-07-2023 13:15-0400 Respiratory rate 18 /min Key Patel Other [facility] Other 05-07-2023 13:15-0400 SaO2% (BldA) [Mass fraction] 98 % Key Patel Other [facility] Other 11-08-2022 13:50-0400 Body height 167.64 cm Chase Saldana Other [facility] Other 11-08-2022 13:50-0400 Body mass index (BMI) [Ratio] 35.51 kg/m2 Chase Saldana Other [facility] Other 11-08-2022 13:50-0400 Body weight 99.79 kg Chase Saldana Other [facility] Other 04-26-2022 11:55-0400 Body height 167.64 cm Autumn Marley Other [facility] Other 04-26-2022 11:55-0400 Body mass index (BMI) [Ratio] 35.02 kg/m2 Autumn Marley Other [facility] Other 04-26-2022 11:55-0400 Body temperature 97.7 [degF] Autumn Marley Other [facility] Other 04-26-2022 11:55-0400 Body weight 98.43 kg Autumn Marlye Other [facility] Other 04-26-2022 11:55-0400 Diastolic blood pressure 82 mm[Hg] Autumn Marley Other [facility] Other 04-26-2022 11:55-0400 Respiratory rate 18 /min Autumn Marley Other [facility] Other 04-26-2022 11:55-0400 SaO2% (BldA) [Mass fraction] 98 % Autumn Marley Other [facility] Other 04-26-2022 11:55-0400 Systolic blood pressure 122 mm[Hg] Autumn Marley Other [facility] Other 04-23-2022 10:50-0400 Body height 167.64 cm Autumn Marley Other [facility] Other 04-23-2022 10:50-0400 Body mass index (BMI) [Ratio] 33.89 kg/m2 Autumn Marley Other [facility] Other 04-23-2022 10:50-0400 Body temperature 97.8 [degF] Autumn Marley Other [facility] Other 04-23-2022 10:50-0400 Body weight 95.26 kg Autumn Marley Other [facility] Other 04-23-2022 10:50-0400 Respiratory rate 18 /min Autumn Marley Other [facility] Other 04-23-2022 10:50-0400 SaO2% (BldA) [Mass fraction] 98 % Autumn Marley Other [facility] Other 03-27-2022 10:15-0400 Body height 167.64 cm Deb Simon Other [facility] Other 03-27-2022 10:15-0400 Body mass index (BMI) [Ratio] 34.38 kg/m2 Deb Simon Other [facility] Other 03-27-2022 10:15-0400 Body temperature 97.4 [degF] Deb Simon Other [facility] Other 03-27-2022 10:15-0400 Body weight 96.62 kg Deb Simon Other [facility] Other 03-27-2022 10:15-0400 Respiratory rate 18 /min Deb Simon Other [facility] Other 03-27-2022 10:15-0400 SaO2% (BldA) [Mass fraction] 96 % Deb Simon Other [facility] Other 04-05-2021 16:10-0400 Body height 167.64 cm Lucinda Salgado Other [facility] Other 04-05-2021 16:10-0400 Body mass index (BMI) [Ratio] 33.25 kg/m2 Lucinda Salgado Other [facility] Other 04-05-2021 16:10-0400 Body temperature 97.3 [degF] Lucinda Salgado Other [facility] Other 04-05-2021 16:10-0400 Body weight 93.44 kg Luicnda Salgado Other [facility] Other 04-05-2021 16:10-0400 Diastolic blood pressure 74 mm[Hg] Lucinda Salgado Other [facility] Other 04-05-2021 16:10-0400 Respiratory rate 18 /min Lucinda Salgado Other [facility] Other 04-05-2021 16:10-0400 SaO2% (BldA) [Mass fraction] 99 % Lucinda Salgado Other [facility] Other 04-05-2021 16:10-0400 Systolic blood pressure 111 mm[Hg] Lucinda Salgado Other [facility] Other Encounters Encounter Date Encounter Type Care Provider Facility Start: 06-19-2024 ambulatory Gerald Howard acility:[facility] Start: 06-13-2024 End: 06-13-2024 Emergency department patient visit [facility] Start: 06-08-2024 End: 06-08-2024 ambulatory Bob Garcia MD Facility: [facility] Start: 05-28-2024 End: 05-28-2024 ambulatory RADHA SANTOYO [facility] Start: 05-28-2024 End: 05-28-2024 Office outpatient new 45 minutes Radha Santoyo DO [facility] Comment on above: Chronic cough (Prima ry Dx); Mild intermittent asthma in adult without complication Start: 05-28-2024 End: 05-28-2024 ambulatory [facility] Start: 05-19-2024 End: 05-19-2024 Bamboo flowsheet Kenia Washington PROCESSING ASSOCIATE Work Phone: [address] Start: 05-19-2024 End: 05-19-2024 Bamboo flowsheet Kenia Washington PROCESSING ASSOCIATE Work Phone: [address] Start: 05-19-2024 End: 05-19-2024 Office outpatient visit 25 minutes Kenia Washington PROCESSING ASSOCIATE Work Phone: [address] Comment on above: Seizures (CMS/HCC) ( Primary Dx); Mood disorder (CMS/HCC); Chronic migraine without aura without status migrainosus, not intractable (CMS/HCC); Chronic bilateral low back pain, unspecified whether sciatica present; Paresthesia of both lower extremities; Fatty infiltration of bone marrow Start: 05-19-2024 End: 05-19-2024 ambulatory KENIA WASHINGTON Not Available Start: 05-13-2024 End: 05-13-2024 Emergency department patient visit [facility] Start: 05-11-2024 End: 05-11-2024 Patient encounter procedure [facility] Work Phone: Start: 05-11-2024 End: 05-11-2024 ambulatory NON STAFF [facility] Work Phone: Start: 2024 End: 2024 ambulatory RADHA [facility] Start: 04-30-2024 End: 04-30-2024 Emergency department patient visit [facility] Start: 04-28-2024 Registered [facility] Start: 04-28-2024 End: 04-28-2024 ambulatory [facility] Start: 04-14-2024 ambulatory KENIA WASHINGTON [facility] Start: 04-01-2024 End: 04-01-2024 Bamboo flowsheet Kenia Washington PROCESSING ASSOCIATE Work Phone: [facility] [address] Start: 04-01-2024 End: 04-01-2024 Bamboo flowsheet Kenia Washington PROCESSING ASSOCIATE Work Phone: [facility] [address] Start: 04-01-2024 End: 04-01-2024 Office outpatient visit 25 minutes Kenia Washington PROCESSING ASSOCIATE Work Phone: [facility] Comment on above: Seizures (CMS/HCC) ( Primary Dx); Mood disorder (CMS/HCC); Episodic migraine (CMS/HCC); Chronic bilateral low back pain, unspecified whether sciatica present; Paresthesia of both lower extremities; Anxiety Start: 04-01-2024 End: 04-01-2024 ambulatory KENIA WASHINGTON Not Available Start: 03-18-2024 End: 03-19-2024 Emergency department patient visit [facility] Work Phone: Start: 03-18-2024 End: 03-18-2024 ambulatory NON STAFF [facility] Work Phone: Start: 03-18-2024 End: 03-18-2024 Patient encounter procedure [facility] Work Phone: Start: 03-10-2024 ambulatory KENIA WASHINGTON [facility] Start: 03-06-2024 Registered [facility] Start: 03-05-2024 End: 03-05-2024 ambulatory NON STAFF [facility] Work Phone: Start: 03-05-2024 End: 03-05-2024 Patient encounter procedure [facility] Work Phone: Start: 03-05-2024 End: 03-05-2024 ambulatory KAMLA DAVID Not Available Start: 02-27-2024 End: 02-27-2024 ambulatory KENIA WASHINGTON Not Available Start: 02-13-2024 End: 02-14-2024 Emergency department patient visit [facility] Start: 02-12-2024 End: 02-12-2024 ambulatory SHAIKH KORIN Not Available Start: 02-07-2024 Registered [facility] Start: 02-03-2024 End: 02-03-2024 ambulatory SHAIKH KORIN Not Available Start: 01-30-2024 End: 01-30-2024 ambulatory KENIA WASHINGTON Not Available Start: 01-09-2024 End: 01-09-2024 ambulatory KENIA WASHINGTON Not Available Start: 01-02-2024 End: 01-02-2024 ambulatory MARY W WIGGINS Not Available Start: 12-28-2023 End: 12-29-2023 Emergency department patient visit [facility] Start: 12-16-2023 End: 12-16-2023 ambulatory SHAIKH KORIN Not Available Start: 12-11-2023 End: 12-11-2023 Emergency department patient visit [facility] Start: 12-10-2023 End: 12-10-2023 ambulatory CHRISTOPHER ROYA Not Available Start: 12-05-2023 End: 12-05-2023 ambulatory CHRISTOPHER ROYA Not Available Start: 12-05-2023 End: 12-05-2023 ambulatory MARY W WIGGINS Not Available Start: 12-02-2023 End: 12-02-2023 ambulatory PALMA ALEXA Not Available Start: 11-26-2023 End: 11-26-2023 ambulatory SHAIKH KORIN Not Available Start: 11-25-2023 End: 11-26-2023 Emergency department patient visit [facility] Start: 11-25-2023 End: 11-27-2023 Emergency department patient visit [facility] Start: 11-21-2023 End: 11-21-2023 ambulatory MARY W WIGGINS Not Available Start: 11-16-2023 End: 11-16-2023 Emergency department patient visit [facility] Start: 10-30-2023 End: 10-30-2023 ambulatory JOHN HADDAD Not Available Start: 10-15-2023 End: 10-15-2023 ambulatory SHAIKH KORIN Not Available Start: 10-09-2023 End: 10-09-2023 Emergency department patient visit SHAIKH KORIN [facility] Start: 09-21-2023 End: 09-22-2023 Emergency department patient visit [facility] Start: 09-21-2023 End: 09-22-2023 Emergency department patient visit [facility] Start: 08-27-2023 End: 08-27-2023 [facility] Start: 07-09-2023 End: 07-09-2023 Emergency department patient visit SHAIKH KORIN [facility] Start: 05-07-2023 End: 05-07-2023 ambulatory Key Patel Other [facility] Other Start: 05-07-2023 Office outpatient vi sit 15 minutes Key Patel [facility] Start: 02-19-2023 ambulatory SHAIKH KORIN Facility: [facility] Start: 11-08-2022 Office outpatient vi sit 15 minutes Chase Saldana [facility] Start: 11-08-2022 End: 11-08-2022 ambulatory Chase Saldana Other [facility] Other Start: 11-08-2022 End: 11-08-2022 Departed Referred PA-C Chase Saldana Work Phone: [facility] Work Phone: Start: 04-26-2022 End: 04-26-2022 ambulatory Autumn Marley Other [facility] Other Start: 04-26-2022 Office outpatient vi sit 15 minutes Autumn Donell [facility] Start: 04-23-2022 End: 04-23-2022 ambulatory Autumn Donell Other [facility] Other Start: 04-23-2022 Office outpatient vi sit 15 minutes Autumn Donell [facility] Start: 04-03-2022 End: 04-03-2022 ambulatory COLÓN H FAWWAD Facility:[facility] Start: 03-27-2022 End: 03-27-2022 ambulatory Deb Simon Other [facility] Other Start: 03-27-2022 Office outpatient vi sit 25 minutes Deb Simon [facility] Start: 03-22-2022 End: 03-22-2022 ambulatory COLÓN H FAWWAD Facility:[facility] Start: 03-09-2022 End: 03-09-2022 ambulatory COLÓN H GARRICKWISIDROD Facility:[facility] Start: 02-08-2022 End: 02-08-2022 ambulatory KARAN PALACIOS Facility:[facility] Start: 12-18-2021 End: 12-19-2021 ambulatory COLÓN H FAWWAD Facility:[facility] Start: 12-07-2021 End: 12-07-2021 ambulatory KARAN PALACIOS Facility:[facility] Start: 10-24-2021 End: 10-25-2021 ambulatory COLÓN H TOVAWAD Facility:[facility] Start: 10-17-2021 End: 10-17-[address] PATRICK BAHENA Facility:[facility] Start: 09-26-2021 End: 09-26-[address] PATRICK BAHENA Facility:[facility] Start: 09-18-2021 End: 09-18-[address] PATRICK BAHENA Facility:[facility] Start: 07-18-2021 End: 07-19-2021 ambulatory H KORIN Facility:[facility] Start: 05-28-2021 ambulatory COLÓN H GARRICKWWAD Facilit y:[facility] Start: 05-01-2021 End: 05-01-2021 ambulatory COLÓN H SHAREED Facility:[facility] Start: 04-28-2021 End: 04-29-2021 ambulatory SHAIKH Rosales LANGLEY Facility:[facility] Start: 04-05-2021 Office outpatient vi sit 15 minutes Lucinda [facility]EN[facility] Start: 04-12-2018 End: 04-12-2018 Patient encounter [facility] Facility:[facility] Start: 04-11-2018 End: 04-12-2018 Emergency department patient visit [facility] Facility:[facility] Procedures Date Procedure Procedure Detail Performing Clinician Start: 05-11-2024 MR lumbar spine wo con Start: 05-11-2024 MRI of head Plan of Treatment Date Care Activity Detail Author Start: 05-28-2025 Adult BMI Screening Adult BMI Screen ing [facility] Start: 05-28-2025 Tobacco Screening Tobacco Screening [facility] Start: 12-09-2024 End: 12-09-2024 Patient encounter procedure 12/09/2024 2:00 PM EDT Office Visit [facility] [address] [place] [id number] Palma Guy PA [address] [place] [address] [facility] Start: 07-21-2024 End: 07-21-2024 Patient encounter procedure 07/21/2024 11:00 AM EST Office Visit [facility] [address] [place] [id number] Kenia Washington, ELIZABETH [address] [place] [address] [facility] [address] Start: 05-19-2024 End: 05-19-2024 Patient encounter procedure [facility] [address] Comment on above: Seizures (CMS/HCC) ( Primary Dx); Mood disorder (CMS/HCC); Episodic migraine (CMS/HCC); Chronic bilateral low back pain, unspecified whether sciatica present; Paresthesia of both lower extremities; Fatty infiltration of bone marrow Start: 04-01-2024 End: 04-01-2025 MR Brain WO and W contrast IV MR brain w and wo contrast routine Imaging Routine Seizures (CMS/HCC) Episodic migraine (CMS/HCC) Expected: 04/01/2024 (Approximate), Expires: 04/01/2025 [facility] Work Phone: Comment on above: Expected: 04/01/2024 (Approximate), Expires: 04/01/2025 Start: 04-01-2024 End: 04-01-2025 MR Lumbar spine WO contrast MR lumbar spine wo contrast Imaging Routine Chronic bilateral low back pain, unspecified whether sciatica present Paresthesia of both lower extremities Expected: 04/01/2024 (Approximate), Expires: 04/01/2025 [facility] Comment on above: Expected: 04/01/2024 (Approximate), Expires: 04/01/2025 Start: 04-01-2024 End: 04-01-2024 Patient encounter procedure 04/01/2024 11:20 AM EDT Office [address] [facility] [address] [place] [address] Kenia Washington NP [address] [place] [id number] Seizures (CMS/HCC) (Primary Dx); Mood disorder (CMS/HCC); Episodic migraine (CMS/HCC); Chronic bilateral low back pain, unspecified whether sciatica present; Paresthesia of both lower extremities [facility] [address] Comment on above: Seizures (CMS/HCC) ( Primary Dx); Mood disorder (CMS/HCC); Episodic migraine (CMS/HCC); Chronic bilateral low back pain, unspecified whether sciatica present; Paresthesia of both lower extremities Start: 03-15-2024 COVID-19 Vaccine ( season) COVID-19 Vaccine ( season) [facility] Start: 03-15-2024 Influenza vaccination [facility] Start: 2023 Screening for malign ant neoplasm of cervix [facility] Start: 11-08-2022 Bacteria identified in Urine by Culture Urine Culture [facility] Start: 2014 Screening for malign ant neoplasm of cervix Pap Smear [facility] Start: 2012 DTaP,Tdap and Td Vaccines (1 - Tdap) DTaP,Tdap and Td Vaccines (1 - Tdap) [facility] Start: 2011 Adult BMI Follow Up Plan Adult BMI Follow Up Plan [facility] Start: 2005 Depression Screening Depression Scre grace [facility] Patient Education Panic Attack ED [facility] Work Phone: Patient referral [facility] Work Phone: Immunizations Immunization Date Immunization Notes Care Provider Garrick dacosta 10-25-2023 influenza, injectabl e, quadrivalent, preservative free Kenia Washington PROCESSING ASSOCIATE Work Phone: [facility] 10-25-2023 influenza virus vaccine, unspecified formulation Kenia Washington PROCESSING ASSOCIATE Work Phone: [facility] 04-23-2021 influenza, seasonal, injectable Kenia Washington PROCESSING ASSOCIATE Work Phone: [facility] 03-28-2021 Moderna SARS-CoV-2 Vaccination Keniajeffry Washington PROCESSING ASSOCIATE Work Phone: [facility] 01-26-2020 Toradol per 15 mg Lucinda Dym ond Other [facility] Other 09-08-2019 Rocephin 500 mg Lucinda Dymon d Other [facility] Other 06-10-2018 Influenza, injectabl e, Madin Boncarbo Canine Kidney, preservative free, quadrivalent Kenia Washington PROCESSING ASSOCIATE Work Phone: [facility] 12-11-2011 human papilloma viru s vaccine, quadrivalent Kenia Washington PROCESSING ASSOCIATE Work Phone: [facility] 11-09-2011 human papilloma viru s vaccine, quadrivalent Kenia Washington PROCESSING ASSOCIATE Work Phone: [facility] Payers Date Payer Category Payer Medicaid [id number] 2022 Medicaid [id number] 2. [id number] 2018 Unknown 1993 Unknown [id number] 2.16.84 0.1.760832.3.579.2.593 1993 Unknown [id number] 2.16.84 0.1.735850.3.579.2.593 1993 Unknown [id number] 2.16.84 0.1.643043.3.579.2.593 1993 Unknown [id number] 2.16.84 0.1.279398.3.579.2.593 1993 Unknown [id number] 2.16.84 0.1.788953.3.579.2.593 1993 Unknown [id number] 2.16.84 0.1.715203.3.579.2.593 1993 Unknown [id number] 2.16.84 0.1.501896.3.579.2.593 1993 Unknown [id number] 2.16.84 0.1.360977.3.579.2.593 1993 Unknown [id number] 2.16.84 0.1.764435.3.579.2.593 1993 Unknown [id number] 2.16.84 0.1.983502.3.579.2.593 1993 Unknown [id number] 2.16.84 0.1.459391.3.579.2.593 1993 Unknown [id number] 2.16.84 0.1.149486.3.579.2.593 1993 Unknown [id number] 2.16.84 0.1.838628.3.579.2.593 1993 Unknown [id number] 2.16.84 0.1.413631.3.579.2.593 1993 Unknown [id number] 2.16.84 0.1.622864.3.579.2.1259 1993 Unknown [id number] 2.16.84 0.1.078671.3.579.2.1259 1993 Unknown [id number] 2.16.84 0.1.015857.3.579.2.9 1993 Unknown [id number] 2.16.84 0.1.900592.3.579.2.1259 1993 Unknown [id number] 2.16.84 0.1.698270.3.579.2.9 1993 Unknown [id number] 2.16.84 0.1.834245.3.579.2.1259 1993 Unknown [id number] 2.16.84 0.1.543974.3.579.2.9 1993 Unknown [id number] 2.16.84 0.1.234739.3.579.2.9 1993 Unknown [id number] 2.16.84 0.1.348090.3.579.2.9 1993 Unknown [id number] 2.16.84 0.1.757732.3.579.2.9 1993 Unknown [id number] 2.16.84 0.1.131670.3.579.2.9 1993 Unknown [id number] 2.16.84 0.1.824482.3.579.2.9 1993 Unknown [id number] 2.16.84 0.1.506874.3.579.2.9 1993 Unknown [id number] 2.16.84 0.1.994945.3.579.2.1259 1993 Unknown [id number] 2.16.84 0.1.417853.3.579.2.9 1993 Unknown [id number] 2.16.84 0.1.274018.3.579.2.9 1993 Unknown [id number] 2.16.84 0.1.389218.3.579.2.9 1993 Unknown [id number] 2.16.84 0.1.566088.3.579.2.1259 1993 Unknown [id number] 2.16.8 40.1.880714.3.579.2.1286 1993 Unknown [id number] 2.16. 840.1.784031.3.579.2.196 1993 Unknown [id number] 2.16.8 40.1.412926.3.579.2.1286 1993 Unknown [id number] 2.16.8 40.1.564883.3.579.2.1286 1993 Unknown [id number] 2.16.8 40.1.690423.3.579.2.1286 1993 Unknown [id number] 2.16.8 40.1.795598.3.579.2.1286 1993 Unknown [id number] 2.16.8 40.1.108545.3.579.2.1286 1993 Unknown [id number] 2.16.8 40.1.864933.3.579.2.1286 1993 Unknown [id number] 2.16.8 40.1.454826.3.579.2.1286 1993 Unknown [id number] 2.16.8 40.1.125303.3.579.2.1286 1993 Unknown [id number] 2.16.8 40.1.529554.3.579.2.1286 1993 Unknown [id number] 2.16.8 40.1.316376.3.579.2.1286 1993 Unknown [id number] 2.16.8 40.1.878914.3.579.2.1286 1993 Unknown [id number] 2.16.8 40.1.608539.3.579.2.1286 1993 Unknown [id number] 2.16.8 40.1.432953.3.579.2.1286 1993 Unknown [id number] 2.16.8 40.1.571394.3.579.2.1286 1993 Unknown [id number] 2.16.8 40.1.729761.3.579.2.1286 1993 Unknown [id number] 2.16.8 40.1.508688.3.579.2.1286 1993 Unknown [id number] 2.16.8 40.1.954005.3.579.2.1286 1993 Unknown [id number] 2.16.8 40.1.081396.3.579.2.1286 1993 Unknown [id number] 2.16.8 40.1.096902.3.579.2.1286 1993 Unknown [id number] 2.16.8 40.1.050689.3.579.2.1286 1993 Unknown [id number] 2.16.8 40.1.491691.3.579.2.1286 1993 Unknown [id number] 2.16.8 40.1.193142.3.579.2.1286 1993 Unknown [id number] 2.16.84 0.1.167467.3.579.2.1286 1959 Self-pay 1959 Unknown [id number] 2.1 6.840.1.410325.19 1959 Unknown [id number] Unknown [id number] Unknown [id number] 2.16.8 40.1.366414.3.579.2.531 Unknown [id number] 2.16.8 40.1.174223.3.579.2.531 Unknown [id number] 2.16.8 40.1.077544.3.579.2.531 Social History Date Type Detail Facility Unknown if ever smoked [facility] Other Start: 02-12-2024 End: 04-01-2024 Sex Assigned At [facility] Other Start: 07-15-2007 End: 07-15-2021 Tobacco smoking status NHIS Smoker (finding) [facility] Start: 1995 [facility]igned At [facility] Start: 10-15-2023 End: 03-05-2024 Tobacco smoking status NHIS Ex-smoker (finding) [facility] Start: 07-15-2007 End: 07-15-2021 History of tobacco use [facility]igarette Smoker [facility] History of tobacco use Passive smoker [facility] Start: 10-15-2023 End: 05-28-2024 Tobacco use and exposure Smokeless tobacco non-user [facility] Start: 02-12-2024 End: 04-01-2024 Alcoholic beverage intake Ex-drinker (finding) [facility] Start: 02-12-2024 End: 04-01-2024 History of Social function [facility] Start: 1995 Sex assigned at Not on file [facility] Start: 05-28-2024 Alcoholic beverage intake Lifetime non-drinker (finding) [facility] Frequency of Alcohol Consumption Never [facility] Start: 01-08-2022 Alcohol Comment OCCASSIONALLY [facility] Start: 02-17-2015 Sex Female (finding) [facility] NEGATED: Highlighted row [facility] Goals Date Patient Goal Desired Activity /State Personal health goal Comment on above: Formatting of this n ote might be different from the original. Evaluation of progress towards goal: To be discharged home Clinical Notes 04-05-2021 to 05-28-2024 Radha Santoyo, - 05/28/2024 2:00 PM Live Washington NP - 05/19/2024 9:40 AM ESTPatient InstructionsKenia Washington NP - 04/01/2024 11:20 AM EDTPatient Instructions Note Date & Type Note Facility [...] was told that since she was an infant she would always have chronic bronchitis. She was hospitalized for 2 weeks with bronchitis as an infant. She did not require any venting. Her mother was also hospitalized. She was admitted here at [facility] and did not require transfer [...] Diagnosis Date ADHD Anxiety Asthma Bipolar disorder ([facility]) Bronchitis, chronic ([facility]) Bulging lumbar disc Depression Obesity Opiate abuse, episodic ([facility]) Panic disorder Psychogenic nonepileptic seizure 04/2024 PTSD (post-traumatic stress disorder) Past Surgical History: Procedure Laterality Date DILATION AND CURETTAGE, DIAGNOSTIC / THERAPEUTIC LAPAROSCOPIC CHOLECYSTECTOMY N/A 04/24/2021 Performed by Tripp Ferris MD at [facility] TONSILLECTOMY Latex; Latex, natural rubber; Lamotrigine; Lexapro [escitalopram oxalate]; Adhesive; Clindamycin; Ibuprofen; Pristiq [desvenlafaxine succinate]; and Sulfa (sulfonamide antibiotics) Prior to Admission medications Medication Sig Start Date End Date Taking? Authorizing Provider fdorhtncrn-[id number] (FIORICET, ESGIC) 50-300-40 mg per capsule Take [...] Patient not taking: Reported on 05/28/2024 01/17/22 Clarence Moya MD acetaminophen (TYLENOL EXTRA STRENGTH) 500 [...] Patient not taking: Reported on 05/28/2024 11/15/21 Clarence Moya MD ondansetron ODT (ZOFRAN ODT) 4 mg disintegrating tablet Dissolve 1 tablet (4 mg total) on tongue every 8 (eight) hours as needed for nausea for up to 10 doses. Patient not taking: Reported on 05/28/2024 04/30/24 Stan Johnson DO rizatriptan (MAXALT) 5 mg tablet Take 1 [...] significant interval change. Dr. Radha Santoyo DO. [facility] Office: [phone] documented in this encounter [facility] 05-19-2024 History of Present illness Narrative Images [...] depression Past Medical History: Diagnosis Date Asthma ([facility]) Cholecystitis Depression ([facility]) PTSD (post-traumatic stress disorder) ([facility]) Past Surgical History: Procedure Laterality [...] wrist extensors , wrist flexor , and manager research development strength 5/5. LUE strength deltoid , biceps , triceps , wrist extensors , wrist flexor , and manager research development strength 5/5. RLE strength iliopsoas, quadriceps, tibialis [...] reflex 1+. LLE Knee reflex 1+. Coordination: Dpjdhg-[id number] testing normal. Rapid alternating movements are normal. Gait: Normal. Review and summary of old records: MRI of the lumbar spine w/o contrast at [facility] on 05/11/24: Fatty marrow replacement changes. May [...] conditions including anxiety (she is seen at [facility]). I will defer current treatment of these to psychiatry - The patient may also benefit from cognitive behavioral therapy at [facility] for suspected PNES Chronic migraine without aura [...] if needed for new or worsening symptoms. Kneia Washington NP [facility] documented in this encounter [facility] 05-19-2024 Instructions Kenia Washington NP - 05/19/2024 9:40 AM EST - Referral to pain management - Referral to hematology/oncology - Stop rizatriptan - Start Nurtec 75 mg ODT as needed for migraine documented in this encounter [facility] 04-01-2024 History of Present illness Narrative Images from the original note were not included. Kenia Washington NP Chief Complaint Patient presents with Headache Back Pain Subjective Jennifer Aguillon is a 28 y.o. female. HPI The patient presents today for follow up. She was unable to have the MRI of the brain completed due to having a severe panic attack while in the MRI machine. The patient was transported from the MRI to the emergency department for evaluation. She states her anxiety and panic attack resolved after being given an IV benzodiazepine. At the prior appointment, verapamil was prescribed. The patient took verapamil ER 120 mg by mouth once a day but stopped it due to side effects of chest pain and, black spots, in her vision. She states both of these symptoms resolved when the medication was stopped. The patient denies any seizure-like activity or loss of consciousness since the prior neurology appointment. She denies unexplained injuries and denies arousal from sleep with confusion. She states her seed sorter prescribed Xanax, and she feels as if she is finally on an adequate dose to prevent her seizure-like episodes. Her psychiatrist believes she has PNES (psychogenic nonepileptic seizures). The patient has had approximately 2 to 3 migraines per month recently. These are unchanged in characteristic. They last one to two days. They are associated with nausea and increased sensitivity to light and sound. She has tried Tylenol and ibuprofen with no relief. She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
--- NOTE | 2024-07-02 19:17 | CT_ITS ---
The [address] [address] Patient Name: VERNELL ENGLE MRN: [id number] date: 1995 Sex: F Assigned Patient Location: ER Current Patient Location: ER Accession/Order Number: [id number] Exam Date: 07/02/2024 19:20 Report Date: 07/02/2024 20:22 At the request of: VÍCTOR HENDERSON Procedure: CT soft tissue neck wo con EXAM: CT soft tissue neck wo con HISTORY: left jaw pain into neck COMPARISON: None. TECHNIQUE: Axial CT scans of the neck were obtained without contrast. MPR images were obtained. Dose reduction techniques were achieved by using: automated exposure control and/or adjustment of mA and /or kV according to patient size and/or use of iterative reconstruction technique. FINDINGS: The visualized intracranial contents appear normal. The visualized transportation analyst spaces, parotid glands and parapharyngeal spaces appear normal. The nasopharynx, oropharynx and hypopharynx show no mucosal edema or abnormal mass. The oral tongue, the floor the mouth and the submandibular glands appear normal. The thyroid gland and the larynx show no abnormal mass. The prevertebral space shows no edema. No abnormal fluid collection. No adenopathy. The visualized paranasal sinuses show no air-fluid levels. The visualized middle ear cavities and visualized mastoids are clear. Severe dental disease is demonstrated throughout. The visualized upper lungs are clear. Cervical spine and upper thoracic spine appear normal. CT/CT soft tissue neck wo con IMPRESSION: Severe dental disease throughout. No evidence of an abscess in the soft tissue of the neck. Cervical spine and upper thoracic spine appear normal. Electronically authenticated by: AL GAUTAM Date: 07/02/2024 20:22
--- NOTE | 2024-07-02 19:18 | ED_ITS ---
HPI - Dental/Oral General Chief complaint: Dental/Oral Stated complaint: TOOTH PAIN Time Seen by Provider: 07/02/24 19:09 Source: patient Mode of arrival: walk-in Limitations: no limitations History of Present Illness HPI Narrative: Patient is a 29-year-old female well-known to this emergency department who presents to the ER for pain in the left side of the jaw radiating into the left side of the neck. She was seen in this emergency department 3 weeks ago for pain in the right side of mouth. She denies fevers, chills, vomiting, drainage from the teeth. She has not had any swelling of the mouth, face or neck. No difficulty swallowing. No concern for . She has been seen in this emergency department multiple times for dental caries in the past. She states that she is going to call her dentist office tomorrow so she can get her records sent to a new dentist so all of her teeth can be pulled. Related Data Home Medications ?Medication ?Instructions ?Recorded ?Confirmed oxcarbazepine 300 mg tablet 300 mg PO BID 11/26/23 06/12/24 cholecalciferol (vitamin D3) 10 10 mcg PO DAILY 04/24/24 06/12/24 mcg (400 unit) capsule (Vitamin D3) cyclobenzaprine 5 mg tablet 5 mg PO DAILY 04/24/24 06/12/24 rizatriptan 5 mg tablet 5 mg PO Q2H PRN migraine headache 04/24/24 06/12/24 epinephrine 0.15 mg/0.3 mL 0.3 ml IM PRN 05/20/24 06/12/24 injection,auto-injector alprazolam 0.5 mg tablet (Xanax) 0.5 mg PO DAILY 06/08/24 06/12/24 methocarbamol 750 mg tablet 750 mg PO TID 06/08/24 06/12/24 Previous Rx's ?Medication ?Instructions ?Recorded clindamycin HCl 150 mg capsule 300 mg (2 x 150 mg) PO Q6H 10 days 06/12/24 #80 caps hydrocodone 5 mg-acetaminophen 325 1 tab PO Q6H PRN pain 2 days #8 06/12/24 mg tablet tabs ibuprofen 600 mg tablet 600 mg PO QID PRN pain #20 tabs 06/12/24 amoxicillin 500 mg capsule 500 mg PO TID 7 days #21 caps 07/02/24 ketorolac 10 mg tablet 10 mg PO TID PRN pain #10 tabs 07/02/24 Allergies Allergy/AdvReac Type Severity Reaction Status Date / Time latex Allergy Unknown Rash Verified 07/02/24 19:14 adhesive Allergy Rash Verified 07/02/24 19:14 Sulfa (Sulfonamide AdvReac Mild Hives Verified 07/02/24 19:14 Antibiotics) Review of Systems ROS Constitutional Denies: fever or chills Ears, nose, mouth, and throat Reports: mouth pain; Denies: throat pain or difficulty swallowing Cardiovascular Denies: chest pain Respiratory Denies: shortness of breath or cough Gastrointestinal Denies: nausea or vomiting Musculoskeletal Reports: neck pain; Denies: back pain Integumentary/Breast Denies: rash Neurological Denies: numbness in extremities or weakness in extremities Hematologic/Lymphatic Denies: easy bruising or easy bleeding PFSH PFS Medical History (Updated 07/02/24 @ 20:26 by SONJA Downey) Seizures ?R56.9 - Unspecified convulsions (ICD-10) Chipped tooth ?S02.5XXA - Fracture of tooth (traumatic), initial encounter for closed fracture (ICD-10) Former smoker, stopped smoking in distant past ?Z87.891 - Personal history of nicotine dependence (ICD-10) Asthma ?J45.909 - Unspecified asthma, uncomplicated (ICD-10) High blood cholesterol level ?E78.00 - Pure hypercholesterolemia, unspecified (ICD-10) Surgical History (Updated 06/08/24 @ 14:13 by Andreia Waller) H/O dilation and curettage ?Z98.890 - Other specified postprocedural states (ICD-10) History of laparoscopic cholecystectomy ?Z90.49 - Acquired absence of other specified parts of digestive tract (ICD- 10) History of tonsillectomy and adenoidectomy ?Z90.89 - Acquired absence of other organs (ICD-10) Social History Smoking status: Former smoker Little interest or pleasure in doing things: not at all Feeling down, depressed, or hopeless: not at all Exam Narrative Exam Narrative: Gen.: Awake, alert, in no distress Head: Normocephalic, atraumatic ENT: Moist mucous membranes, no mandibular or maxillary swelling noted. Multiple dental caries with very poor dentition. No redness or swelling under the tongue. Respiratory: No respiratory distress Extremities: Moves extremities equally Psych: Normal mood and affect Neuro: No focal neuro deficit Skin: Warm, dry, intact Constitutional Vital Signs, click to edit/add: Last Vital Signs Temp 97.8 F 07/02/24 19:10 Pulse 114 H 07/02/24 19:10 Resp 18 07/02/24 19:10 BP 144/97 H 07/02/24 19:10 Pulse Ox 99 07/02/24 19:10 O2 Del Method Room Air 07/02/24 19:10 Course Vital Signs Vital signs: Vital Signs Temperature 97.8 F 07/02/24 19:10 Pulse Rate 114 H 07/02/24 19:10 Respiratory Rate 18 07/02/24 19:10 Blood Pressure 144/97 H 07/02/24 19:10 Pulse Oximetry 99 07/02/24 19:10 Oxygen Delivery Method Room Air 07/02/24 19:10 Temperature 97.8 F 07/02/24 19:10 Pulse Rate 114 H 07/02/24 19:10 Respiratory Rate 18 07/02/24 19:10 Blood Pressure 144/97 H 07/02/24 19:10 Pulse Oximetry 99 07/02/24 19:10 Oxygen Delivery Method Room Air 07/02/24 19:10 MDM - Dental/Oral MDM Narrative Medical decision making narrative: CT of the soft tissue of the neck is unremarkable, patient has significant dental disease but no abscess noted. She was treated with topical analgesia and [place] in the ER, discharged home on amoxicillin and Toradol. She was strongly encouraged to follow-up with a dentist and she was made aware of the limitations of the emergency department to manage her chronic dental pain and dental caries. Return to the ER if symptoms change or worsen SUPERVISED APC VISIT, PHYSICIAN ATTESTATION: Based on the medical record the care appears appropriate. ? Medical Records Attestation: I reviewed the patient's medical records. Imaging Data CT neck: Attestation: I have reviewed the pertinent imaging results. Radiologist's impression: ITS Impressions Soft Tissue Neck CT 07/02/24 19:17 IMPRESSION: Severe dental disease throughout. No evidence of an abscess in the soft tissue of the neck. Cervical spine and upper thoracic spine appear normal. Electronically authenticated by: AL GAUTAM Date: 07/02/2024 20:22 Discharge Plan Discharge Chief Complaint: Dental/Oral Clinical Impression: Dental caries, Pain, dental Patient Disposition: Home, Self-Care Time of Disposition Decision: 20:26 Condition: Good Prescriptions / Home Meds: New amoxicillin 500 mg capsule 500 mg PO TID 7 Days Qty: 21 0RF ketorolac 10 mg tablet 10 mg PO TID PRN (Reason: pain) Qty: 10 0RF No Action oxcarbazepine 300 mg tablet 300 mg PO BID epinephrine 0.15 mg/0.3 mL auto-injector 0.3 ml IM PRN alprazolam [Xanax] 0.5 mg tablet 0.5 mg PO DAILY methocarbamol 750 mg tablet 750 mg PO TID rizatriptan 5 mg tablet 5 mg PO Q2H PRN (Reason: migraine headache) cholecalciferol (vitamin D3) [Vitamin D3] 10 mcg (400 unit) capsule 10 mcg PO DAILY cyclobenzaprine 5 mg tablet 5 mg PO DAILY hydrocodone-acetaminophen 5-325 mg tablet 1 tab PO Q6H PRN (Reason: pain) 2 Days Qty: 8 0RF Rx Instructions: DX: K08.89 clindamycin HCl 150 mg capsule 300 mg PO Q6H 10 Days Qty: 80 0RF ibuprofen 600 mg tablet 600 mg PO QID PRN (Reason: pain) Qty: 20 0RF Print Language: Albanian Instructions: Toothache (ED) Additional Instructions: Please follow up with a dentist Referrals: [facility] [Primary Care Provider] - 1 week
[2024-07-02] MEDS: BENZOCAINE 30 ML, lidocaine HCL 15 ML MM (19:27)
[2024-07-02] MEDS: HYDROCODONE/ACET 5-325 MG TABLET 1 TAB PO (19:31)
[2024-07-02 20:33] VITALS: BP 140/96; PULSE 92; O2SAT 96
== END 2024-07-02 20:33 | disposition home or self-care (01) ==
PROVIDERS: Emergency Provider Emergency Medicine
DX: K02.9 Dental caries, unspecified (principal); K08.89 Other specified disorders of teeth and supporting structures; Z90.49 Acquired absence of other specified parts of digestive tract; Z87.891 Personal history of nicotine dependence
CPT/HCPCS: 70490; 99284

== ENCOUNTER 2024-07-27 07:11 | Day surgery (SDC) | payer MEDICAID, SELFPAY ==
--- OUTSIDE RECORDS SUMMARY | 2024-07-27 07:15 | XMS_ITS | CCD ---
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 above: Performed By: #### N UM ####[facility] ([id number])[address] [place] [address] 784[address] UROBILINOGEN BETHANY 0.2 eu/dL Normal <1.1 [facility] Comment on above: Performed By: #### N UM ####[facility] ([id number])[address] [place] [address] 88752 XR CHEST 2 VWSon 06-13-2024 XR CHEST [...] Sutherland DO on 06/13/2024 5:14 PM Normal [facility] aPTT Coag (PPP) [Time]on aPTT Coag (Bld) [Time] 33 s Normal 26-37 [facility] Comment on above: Result Comment: NEW REFERENCE RANGE Performed By: #### C BCA, 04343-8, PINR, 37817-7, BMP, 62684-8, 06657-1, THYR ####[facility] ([id number])[address] [place] [address] 99887 Respiratory allergy panelon 05-29-2024 A. alternata IgE Qn (S) kU/L NINF - 0.10 kU/L [facility] Comment on above: Class 0: Normal A. fumigatus IgE Qn (S) kU/L NINF - 0.10 kU/L [facility] Comment on above: Class 0: Normal Luxembourger house dust mite IgE Qn (S) kU/L NINF - 0.10 kU/L [facility] Comment on above: Class 0: Normal Bermuda grass IgE Qn (S) kU/L NINF - 0.10 kU/L [facility] Comment on above: Class 0: Normal Boxelder IgE Qn (S) kU/L NINF - 0.10 kU/L [facility] Comment on above: Class 0: Normal C. herbarum IgE Qn (S) kU/L NINF - 0.10 kU/L [facility] Comment on above: Class 0: Normal [place] Pollen IgE Qn (S) kU/L NINF - 0.10 kU/L [facility] Comment on above: Class 0: Normal Cat dander IgE Qn (S) kU/L NINF - 0.10 kU/L [facility] Comment on above: Class 0: Normal Cocklebur IgE Qn (S) kU/L NINF - 0.10 kU/L [facility] Comment on above: Class 0: Normal Cockroach IgE Qn (S) kU/L NINF - 0.10 kU/L [facility] Comment on above: Class 0: Normal Common Pigweed IgE Qn (S) kU/L NINF - 0.10 kU/L [facility] Comment on above: Class 0: Normal Common Ragweed IgE Qn (S) kU/L NINF - 0.10 kU/L [facility] Comment on above: Class 0: Normal Unicoi IgE Qn (S) kU/L NINF - 0.10 kU/L [facility] Comment on above: Class 0: Normal Dog dander IgE Qn (S) kU/L NINF - 0.10 kU/L [facility] Comment on above: Class 0: Normal house dust mite IgE Qn (S) kU/L NINF - 0.10 kU/L [facility] Comment on above: Class 0: Normal Goosefoot IgE Qn (S) kU/L NINF - 0.10 kU/L [facility] Comment on above: Class 0: Normal IgE Qn 13 [IU]/L [facility] Heather grass IgE Qn (S) kU/L NINF - 0.10 kU/L [facility] Comment on above: Class 0: Normal [place] blue grass IgE Qn (S) kU/L NINF - 0.10 kU/L [facility] Comment on above: Class 0: [...] on above: Class 0: Normal Pecan or Jerome Tree IgE Qn (S) kU/L NINF - 0.10 kU/L [facility] Comment on above: Class 0: Normal Saltwort IgE Qn (S) kU/L NINF - 0.10 kU/L [facility] Comment on above: Class 0: Normal Sheep Hatboro IgE Qn (S) kU/L NINF - 0.10 [...] System Comment on above: Class 0: Normal Chickasaw IgE Qn (S) kU/L NINF - 0.10 kU/L [facility] Comment on above: Class 0: Normal [facility] RESPIRATORY PANELon 05-28-20 24 ALTERNARIA ALTERNATA <0.10 Normal <0.10 [facility] Comment on above: Result Comment: Clas s 0: Normal Performed By: #### R AP ####[facility] ([id number])[address] [place] [address] ASPERGILLUS FUMIGATUS <0.10 Normal <0.10 [facility] Comment on above: Result Comment: Clas s 0: Normal Performed By: #### R AP ####[facility] ([id number])[address], [address], [place] [address] BERMUDA GRASS <0.10 Normal <0.10 [facility] Comment on above: Result Comment: Clas s 0: Normal Performed By: #### R AP ####[facility] ([id number])[address], [address], [place] [address] BOX ELDER <0.10 Normal <0.10 [facility] Comment on above: Result Comment: Clas s 0: Normal Performed By: #### R AP ####[facility] ([id number])[address], [place] [address] CAT DANDER <0.10 Normal <0.10 [facility] Comment on above: Result Comment: Clas s 0: Normal Performed By: #### R AP ####[facility] ([id number])[address], [place] [address] CLADOSPORIUM HERB <0.10 Normal <0.10 [facility] Comment on above: Result Comment: Clas s 0: Normal Performed By: #### R AP ####[facility] ([id number])[address] [place] [address] COCKLEBUR <0.10 Normal <0.10 [facility] Comment on above: Result Comment: Clas s 0: Normal Performed By: #### R AP ####[facility] ([id number])[address] [address] COCKROACH <0.10 Normal <0.10 [facility] Comment on above: Result Comment: Clas s 0: Normal Performed By: #### R AP ####[facility] ([id number])[address], [place] [address] COMMON PIGWEED <0.10 Normal <0.10 [facility] Comment on above: Result Comment: Clas s 0: Normal Performed By: #### R AP ####[facility] ([id number])[address], [place] [address] COMMON RAGWEED <0.10 Normal <0.10 [facility] Comment on above: Result Comment: Clas s 0: Normal Performed By: #### R AP ####[facility] ([id number])[address] [address] COMMON SILVER BIRCH <0.10 Normal <0.10 [facility] Comment on above: Result Comment: Clas s 0: Normal Performed By: #### R AP ####[facility] ([id number])[address] [address] COTTONWOOD <0.10 Normal <0.10 [facility] Comment on above: Result Comment: Clas s 0: Normal Performed By: #### R AP ####[facility] ([id number])[address] [address] DERMATOPH FARINAE <0.10 Normal <0.10 [facility] Comment on above: Result Comment: Clas s 0: Normal Performed By: #### R AP ####[facility] ([id number])[address] [facility] [place] [address] DERMATOPH PTERONYSS <0.10 Normal <0.10 [facility] Comment on above: Result Comment: Clas s 0: Normal Performed By: #### R AP ####[facility] ([id number])[address] [address] DOG DANDER <0.10 Normal <0.10 [facility] Comment on above: Result Comment: Clas s 0: Normal Performed By: #### R AP ####[facility] ([id number])[address] [address] ELM <0.10 Normal <0.10 [facility] Comment on above: Result Comment: Clas s 0: Normal Performed By: #### R AP ####[facility] ([id number])[address] [address] GOOSEFOOT [place]ITT QTR <0.10 Normal <0.10 [facility] Comment on above: Result Comment: Clas s 0: Normal Performed By: #### R AP ####[facility] ([id number])[address], [place] [address] IGE 13 IU/mL Normal 0-165 [facility] Comment on above: Performed By: #### R AP ####[facility] ([id number])[address] [facility] [place] [address] HEATHER GRASS <0.10 Normal <0.10 [facility] Comment on above: Result Comment: Clas s 0: Normal Performed By: #### R AP ####[facility] ([id number])[address], [place] [address] MAPLE LEAF SYCAMORE <0.10 Normal <0.10 [facility] Comment on above: Result Comment: Clas s 0: Normal Performed By: #### R AP ####[facility] ([id number])[address] [facility] [place] [address] MEADOW GRASS [place] TERRA <0.10 Normal <0.10 [facility] Comment on above: Result Comment: Clas s 0: Normal Performed By: #### R AP ####[facility] ([id number])[address] [facility] [place] [address] MOUNTAIN JUNIPER <0.10 Normal <0.10 [facility] Comment on above: Result Comment: Clas s 0: Normal Performed By: #### R AP ####[facility] ([id number])[address] [address] MOUSE URINE PROTEINS <0.10 Normal <0.10 [facility] Comment on above: Result Comment: Clas s 0: Normal Performed By: #### R AP ####[facility] ([id number])[address] [address] MUGWORT <0.10 Normal <0.10 [facility] Comment on above: Result Comment: Clas s 0: Normal Performed By: #### R AP ####[facility] ([id number])[address] [address] MULBERRY TREE <0.10 Normal <0.10 [facility] Comment on above: Result Comment: Clas s 0: Normal Performed By: #### R AP ####[facility] ([id number])[address] [place] [address] NETTLE <0.10 Normal <0.10 [facility] Comment on above: Result Comment: Clas s 0: Normal Performed By: #### R AP ####[facility] ([id number])[address] [facility] [place] [address] OAK <0.10 Normal <0.10 [facility] Comment on above: Result Comment: Clas s 0: Normal Performed By: #### R AP ####[facility] ([id number])[address], [place] [address] PECAN HICKORY TREE <0.10 Normal <0.10 [facility] Comment on above: Result Comment: Clas s 0: Normal Performed By: #### R AP ####[facility] ([id number])[address], [address] [place] [address] PENICILLIUM CHRYSOGENUM <0.10 Normal <0.10 [facility] Comment on above: Result Comment: Clas s 0: Normal Performed By: #### R AP ####[facility] ([id number])[address], [address] [place] [address], [place] [address] ROUGH MARSHELDER <0.10 Normal <0.10 [facility] Comment on above: Result Comment: Clas s 0: Normal Performed By: #### R AP ####[facility] ([id number])[address], [place] [address] SALTWORT KEVAN THISTLE <0.10 Normal <0.10 [facility] Comment on above: Result Comment: Clas s 0: Normal Performed By: #### R AP ####[facility] ([id number])[address], [place] [address] SHEEP SORREL <0.10 Normal <0.10 [facility] Comment on above: Result Comment: Clas s 0: Normal Performed By: #### R AP ####[facility] ([id number])[address], [place] [address] GUERO <0.10 Normal <0.10 [facility] Comment on above: Result Comment: Clas s 0: Normal Performed By: #### R AP ####[facility] ([id number])[address], [place] [address] WALNUT TREE POLLEN <0.10 Normal <0.10 [facility] Comment on above: Result Comment: Clas s 0: Normal Performed By: #### R AP ####[facility] ([id number])[address], [place] [address] WHITE JOS <0.10 Normal <0.10 [facility] Comment on above: Result Comment: Clas s 0: Normal Performed By: #### R AP ####[facility] ([id number])[address] [place] [address] MR head/brain wo/w conon MR head/brain wo/w con [facility] [address] [place] [address] MRI Report Signed Patient: Jennifer Aguillon MR#: [id number] 8 : 1995 Acct:[id number] Age/Sex: 29 / F ADM Date: 05/11/24 Loc: Room: Type: [facility] Attending Dr: Kenia LIN Copies to: DELIA [...] Luis Baldwin M.D.05/11/2024 11:05 PM Dictation Location: [place] [address] Transcribed By: [facility] 05/11/242304 Dictated By: Juan Luis Baldwin DO 05/11/242301 Signed By: 05/11/242304 Normal [facility] MR lumbar spine wo conon MR lumbar spine wo con [facility] [address] [place] [address] MRI Report Signed Patient: Jennifer Aguillon MR#: [id number] 8 : 1995 Acct:[id number] Age/Sex: 29 / F ADM Date: 05/11/24 Loc: Room: Type: [facility] Attending Dr: Kenia LIN Copies to: DELIA [...] Luis Baldwin M.D.05/11/2024 11:02 PM Dictation Location: [place] [address] Transcribed By: [facility] 05/11/242301 Dictated By: Juan Luis Baldwin DO 05/11/242256 Signed By: 05/11/242301 Normal [facility] XR CHEST 2 VWSon [...] Vincent MD on 04/28/2024 2:10 PM Normal [facility] ECG 12 lead ECGon 03-18-2024 ECG 12 lead ECG [facility] [address] [place] [address] Electrocardiograph Report Signed Patient: Jennifer Aguillon MR#: [id number] 8 : 1995 Acct:[id number] Age/Sex: 28 / F ADM Date: 03/18/24 Loc: ER Room: Type: [facility] ER Attending Dr: Ordering Provider: [...] ECGs available Confirmed by ESTEFANI ALEXANDER MD ([id number]) on 03/20/2024 5:58:53 AM Referred By: Electronically Signed By: ESTEFANI ALEXANDER MD Transcribed By: MUS Signed By Estefani Alexander Jr, [place] 0[address] Normal [facility] EMG 2 Extremitieson 03-05-20 Normal [facility] Influenza virus B Ag [Presen ce] in Upper respiratory specimen by Rapid immunoassayon 03-05-2024 FLUBV Ag IA.rapid Ql (Nph) Negative [facility] NVC 9-10 Nerveson 03-05-2024 Normal [facility] No Panel Informationon 03-05 Influenza Type A (Rapid) Negative [facility] POC SARS CoV-2 Antigen Negative [facility] Troponin I.cardiac High sens itivity method [Mass/Vol]on 02-14-2024 1 HOUR TROP I, HIGH SENSITIVITY 3 ng/L Normal <16 [facility] Comment on above: Performed By: #### 8 9579-7 ####[facility] ([id number])[address] [place] [address] CBC AND AUTO DIFFon 02-13-20 ABSOLUTE BASOPHIL 0.0 X10E9/L Normal 0.0-0.2 [facility] Comment on above: Performed By: #### 2 106-3 #### [facility] ([id number]) [address] [place] [address] ABSOLUTE NEUTROPHIL 7.5 X10E9/L High 1.5-6.6 [facility] Comment on above: Performed By: #### 2 106-3 #### [facility] ([id number]) [address] [place] [address] Basophils/100 WBC (Bld) 0.3 % Normal [facility] Comment on above: Performed By: #### 2 106-3 #### [facility] ([id number]) [address] [place] [address]12[address] Eosinophils (Bld) [#/Vol] 0.1 10*3/uL Normal 0.0-0.4 [facility] Comment on above: Performed By: #### 2 106-3 #### [facility] ([id number]) [address] [place] [address] Eosinophils/100 WBC (Bld) 0.8 % Normal [facility] Comment on above: Performed By: #### 2 106-3 #### [facility] ([id number]) [address] [place] [address] Erythrocyte distribution width (RBC) [Ratio] 13.7 % Normal 11.5-15.0 [facility] Comment on above: Performed By: #### 2 106-3 #### [facility] ([id number]) [address] [place] [address] Hematocrit (Bld) [Volume fraction] 35.8 % Normal 35-47 [facility] Comment on above: Performed By: #### 2 106-3 #### [facility] ([id number]) [address] [place] [address] 947[address] Hemoglobin (Bld) [Mass/Vol] 12.5 g/dL Normal 11.7-15.5 [facility] Comment on above: Performed By: #### 2 106-3 #### [facility] ([id number]) [address] [place] [address] Lymphocytes (Bld) [#/Vol] 3.4 10*3/uL Normal 1.0-3.5 [facility] Comment on above: Performed By: #### 2 106-3 #### [facility] ([id number]) [address] [place] [address] 696[address] Lymphocytes/100 WBC (Bld) 29.4 % Normal [facility] Comment on above: Performed By: #### 2 106-3 #### [facility] ([id number]) [address] [place] [address] 11335 MCH (RBC) [Entitic mass] 29.8 pg Normal 27-34 [facility] Comment on above: Performed By: #### 2 106-3 #### [facility] ([id number]) [address] [place] [address] 40877 MCHC (RBC) [Mass/Vol] 35.0 g/dL Normal 32-36 [facility] Comment on above: Performed By: #### 2 106-3 #### [facility] ([id number]) [address] [place] [address]236 MCV (RBC) [Entitic vol] 85 fL Normal 80-100 [facility] Comment on above: Performed By: #### 2 106-3 #### [facility] ([id number]) [address] [place] [address] 14289 Monocytes (Bld) [#/Vol] 0.6 10*3/uL Normal 0-0.9 [facility] Comment on above: Performed By: #### 2 106-3 #### [facility] ([id number]) [address] [place] [address] 75546 Monocytes/100 WBC (Bld) 4.8 % Normal [facility] Comment on above: Performed By: #### 2 106-3 #### [facility] ([id number]) [address] [place] [address] 447[address] Neutrophils/100 WBC (Bld) 64.7 % Normal [facility] Comment on above: Performed By: #### 2 106-3 #### [facility] ([id number]) [address] [place] [address] 709[address] Platelet mean volume (Bld) [Entitic vol] 6.6 fL Low 7-12 [facility] Comment on above: Performed By: #### 2 106-3 #### [facility] ([id number]) [address] [place] [address] Platelets (Bld) [#/Vol] 377 10*3/uL Normal 150-450 [facility] Comment on above: Performed By: #### 2 106-3 #### [facility] ([id number]) [address] [place] [address] [phone] RBC COUNT 4.21 X10E12/L Normal 3.80-5.20 [facility] Comment on above: Performed By: #### 2 106-3 #### [facility] ([id number]) [address] [place] [address] [phone] WBC (Bld) [#/Vol] 11.6 10*3/uL High 4.0-11.0 [facility] Comment on above: Performed By: #### 2 106-3 #### [facility] ([id number]) [address] [place] [phone] COMPREHENSIVE METABOLIC PANE Kit 02-13-2024 Albumin [Mass/Vol] 4.1 g/dL Normal 3.2-5.3 [facility] Comment on above: Performed By: #### 2 106-3 #### [facility] ([id number]) [address] [place] [address] [id number] ALP [Catalytic activity/Vol] 158 U/L High 39-130 [facility] Comment on above: Performed By: #### 2 106-3 #### [facility] ([id number]) [address] [place] [address] 78692 ALT [Catalytic activity/Vol] 46 U/L High 0-31 [facility] Comment on above: Performed By: #### 2 106-3 #### [facility] ([id number]) [address] [place] [address] 82171 Anion gap [Moles/Vol] 7 mmol/L Normal 5-15 [facility] Comment on above: Performed By: #### 2 106-3 #### [facility] ([id number]) [address] [place] [address] 95762 AST [Catalytic activity/Vol] 28 U/L Normal 0-41 [facility] Comment on above: Performed By: #### 2 106-3 #### [facility] ([id number]) [address] [place] [address] 30396 Bilirubin [Mass/Vol] 0.5 mg/dL Normal 0.3-1.2 [facility] Comment on above: Performed By: #### 2 106-3 #### [facility] ([id number]) [address] [place] [address] 39335 Calcium [Mass/Vol] 9.0 mg/dL Normal 8.5-10.5 [facility] Comment on above: Performed By: #### 2 106-3 #### [facility] ([id number]) [address] [place] [address] 32508 Chloride [Moles/Vol] 106 mmol/L Normal 98-109 [facility] Comment on above: Performed By: #### 2 106-3 #### [facility] ([id number]) [address] [place] [address] 52897 CO2 [Moles/Vol] 24 mmol/L Normal 22-32 [facility] Comment on above: Performed By: #### 2 106-3 #### [facility] ([id number]) [address] [place] [address] 42767 Creatinine [Mass/Vol] 0.63 mg/dL Normal 0.40-1.00 [facility] Comment on above: Result Comment: METH OD TRACEABLE TO IDMS STANDARD Performed By: #### 2 106-3 #### [facility] ([id number]) [address] [place] [address] 76179 eGFR (CKD-EPI) NON-RACE DEPENDENT >90 Normal >59 [facility] Comment on above: Result Comment: Reported eGFR is based on the CKD-EPI 2020 equation that does not use a race coefficient. Performed By: #### 2 106-3 #### [facility] ([id number]) [address] [place] [address] 31031 Glucose [Mass/Vol] 98 mg/dL Normal 65-99 [facility] Comment on above: Performed By: #### 2 106-3 #### [facility] ([id number]) [address] [place] [address] 69462 Potassium [Moles/Vol] 3.1 mmol/L Low 3.5-5.0 [facility] Comment on above: Performed By: #### 2 106-3 #### [facility] ([id number]) [address] [place] [address] 75164 Protein [Mass/Vol] 8.0 g/dL Normal 6.0-8.0 [facility] Comment on above: Performed By: #### 2 106-3 #### [facility] ([id number]) [address] [place] [address] 28605 Sodium [Moles/Vol] 137 mmol/L Normal 134-146 [facility] Comment on above: Performed By: #### 2 106-3 #### [facility] ([id number]) [address] [place] [address] 79921 Urea nitrogen [Mass/Vol] 7 mg/dL Normal 5-23 [facility] Comment on above: Performed By: #### 2 106-3 #### [facility] ([id number]) [address] [place] [address] 17875 HCG ( test) Ql (U)o n 02-13-2024 Beta HCG ( test) Ql (U) Negative Normal NEG [facility] Comment on above: Performed By: #### 2 106-3 #### [facility] ([id number]) [address] [place] [address] 47135 MAGNESIUMon 02-13-2024 Magnesium [Mass/Vol] 1.9 mg/dL Normal 1.8-2.6 [facility] Comment on above: Performed By: #### 2 106-3 #### [facility] ([id number]) [address] [place] [address] 40665 Troponin I.cardiac High sens itivity method [Mass/Vol]on 02-13-2024 TROPONIN I, HIGH SENSITIVITY 3 ng/L Normal <16 [facility] Comment on above: Performed By: #### 2 106-3 #### [facility] ([id number]) [address] [place] [address] 67019 URN MACROSCOPIC NURon 2023 BILIRUBIN BETHANY Negative Normal NEG [facility] Comment on above: Performed By: #### 2 106-3 #### [facility] ([id number]) [address] [place] [address] 74699 BLOOD/HGB BETHANY Negative Normal NEG [facility] Comment on above: Performed By: #### 2 106-3 #### [facility] ([id number]) [address] [place] [address] [place] [address] GLUCOSE BETHANY Negative Normal NEG [facility] Comment on above: Performed By: #### 2 106-3 #### [facility] ([id number]) [address] [place] [address] [place] [address] KETONES BETHANY Negative Normal NEG [facility] Comment on above: Performed By: #### 2 106-3 #### [facility] ([id number]) [address] [place] [address] [place] [address] LEUKOCYTE ESTERASE BETHANY Negative Normal NEG [facility] Comment on above: Performed By: #### 2 106-3 #### [facility] ([id number]) [address] [place] [address] 27131 NITRITE BETHANY Negative Normal NEG [facility] Comment on above: Performed By: #### 2 106-3 #### [facility] ([id number]) [address] [place] [address] 94413 PH BETHANY 6.5 Normal 5.0-8.5 [facility] Comment on above: Performed By: #### 2 106-3 #### [facility] ([id number]) [address] [place] [address] 90143 PROTEIN BETHANY Negative Normal NEG [facility] Comment on above: Performed By: #### 2 106-3 #### [facility] ([id number]) [address] [place] [address] 15642 SPECIFIC GRAVITY BETHANY 1.015 Normal 1.003-[address] [place] [address] Comment on above: Performed By: #### 2 106-3 #### [facility] ([id number]) [address] [place] [address] 37681 UROBILINOGEN BETHANY 0.2 eu/dL Normal <1.1 [facility] Comment on above: Performed By: #### 2 106-3 #### [facility] ([id number]) [address] [place] [address] 78481 XR CHEST 2 VWSon 02-13-2024 XR CHEST 2 VWS XR CHEST 2 VWS Chest 2 views History: Difficulty breathing SOB Comparison: 11/25/2023 Findings: Chest 2 views. Stable cardiomediastinal silhouette. No focal opacity, effusion or pneumothorax. Impression: No evident acute cardiopulmonary process. Finalized by Jennifer Howe MD on 02/13/2024 11:22 PM Normal [facility] BASIC METABOLIC PANLon 12-28 Anion gap [Moles/Vol] 4 mmol/L Low 5-15 [facility] Comment on above: Performed By: #### 2 106-3 #### [facility] ([id number]) [address] [place] [address] 95353 Calcium [Mass/Vol] 8.4 mg/dL Low 8.5-10.5 [facility] Comment on above: Performed By: #### 2 106-3 #### [facility] ([id number]) [address] [place] [address] 81307 Chloride [Moles/Vol] 106 mmol/L Normal 98-109 [facility] Comment on above: Performed By: #### 2 106-3 #### [facility] ([id number]) [address] [place] [address] 10964 CO2 [Moles/Vol] 24 mmol/L Normal 22-32 [facility] Comment on above: Performed By: #### 2 106-3 #### [facility] ([id number]) [address] [place] [address] 32734 Creatinine [Mass/Vol] 0.65 mg/dL Normal 0.40-1.00 [facility] Comment on above: Result Comment: METH OD TRACEABLE TO IDMS STANDARD Performed By: #### 2 106-3 #### [facility] ([id number]) [address] [place] [address] 48004 eGFR (CKD-EPI) NON-RACE DEPENDENT >90 Normal >59 [facility] Comment on above: Result Comment: Reported eGFR is based on the CKD-EPI 2021 equation that does not use a race coefficient. Performed By: #### 2 106-3 #### [facility] ([id number]) [address] [place] [address] 57830 Glucose [Mass/Vol] 101 mg/dL High 65-99 [facility] Comment on above: Performed By: #### 2 106-3 #### [facility] ([id number]) [address] [place] [address] 41781 Potassium [Moles/Vol] 3.8 mmol/L Normal 3.5-5.0 [facility] Comment on above: Performed By: #### 2 106-3 #### [facility] ([id number]) [address] [place] [address] 05494 Sodium [Moles/Vol] 134 mmol/L Normal 134-146 [facility] Comment on above: Performed By: #### 2 106-3 #### [facility] ([id number]) [address] [place] [address] 70166 Urea nitrogen [Mass/Vol] 12 mg/dL Normal 5-23 [facility] Comment on above: Performed By: #### 2 106-3 #### [facility] ([id number]) [address] [place] [address] 71711 CBC AND AUTO DIFFon 12-29-19 24 ABSOLUTE BASOPHIL 0.1 X10E9/L Normal 0.0-0.2 [facility] Comment on above: Performed By: #### 2 106-3 #### [facility] ([id number]) [address] [place] [address] 55077 ABSOLUTE NEUTROPHIL 6.1 X10E9/L Normal 1.5-6.6 [facility] Comment on above: Performed By: #### 2 106-3 #### [facility] ([id number]) [address] [place] [address] 12777 Basophils/100 WBC (Bld) 0.7 % Normal [facility] Comment on above: Performed By: #### 2 106-3 #### [facility] ([id number]) [address] [place] [address] 65816 Eosinophils (Bld) [#/Vol] 0.2 10*3/uL Normal 0.0-0.4 [facility] Comment on above: Performed By: #### 2 106-3 #### [facility] ([id number]) [address] [place] [address] 64844 Eosinophils/100 WBC (Bld) 1.9 % Normal [facility] Comment on above: Performed By: #### 2 106-3 #### [facility] ([id number]) [address] [place] [address] 46161 Erythrocyte distribution width (RBC) [Ratio] 13.6 % Normal 11.5-15.0 [facility] Comment on above: Performed By: #### 2 106-3 #### [facility] ([id number]) [address] [place] [address] 85283 Hematocrit (Bld) [Volume fraction] 33.7 % Low 35-47 [facility] Comment on above: Performed By: #### 2 106-3 #### [facility] ([id number]) [address] [place] [address] 69776 Hemoglobin (Bld) [Mass/Vol] 11.7 g/dL Normal 11.7-15.5 [facility] Comment on above: Performed By: #### 2 106-3 #### [facility] ([id number]) [address] [place] [address] 12837 Lymphocytes (Bld) [#/Vol] 3.0 10*3/uL Normal 1.0-3.5 [facility] Comment on above: Performed By: #### 2 106-3 #### [facility] ([id number]) [address] [place] [address] 66207 Lymphocytes/100 WBC (Bld) 29.8 % Normal [facility] Comment on above: Performed By: #### 2 106-3 #### [facility] ([id number]) [address] [place] [address] 60536 MCH (RBC) [Entitic mass] 29.2 pg Normal 27-34 [facility] Comment on above: Performed By: #### 2 106-3 #### [facility] ([id number]) [address] [place] [address] [place] [address] MCHC (RBC) [Mass/Vol] 34.6 g/dL Normal 32-36 [facility] Comment on above: Performed By: #### 2 106-3 #### [facility] ([id number]) [address] [place] [address] 89070 MCV (RBC) [Entitic vol] 84 fL Normal 80-100 [facility] Comment on above: Performed By: #### 2 106-3 #### [facility] ([id number]) [address] [place] [address] 76627 Monocytes (Bld) [#/Vol] 0.6 10*3/uL Normal 0-0.9 [facility] Comment on above: Performed By: #### 2 106-3 #### [facility] ([id number]) [address] [place] [address] 66562 Monocytes/100 WBC (Bld) 6.5 % Normal [facility] Comment on above: Performed By: #### 2 106-3 #### [facility] ([id number]) [address] [place] [address] 76582 Neutrophils/100 WBC (Bld) 61.1 % Normal [facility] Comment on above: Performed By: #### 2 106-3 #### [facility] ([id number]) [address] [place] [address] [place] [address] Platelet mean volume (Bld) [Entitic vol] 6.8 fL Low 7-12 [facility] Comment on above: Performed By: #### 2 106-3 #### [facility] ([id number]) [address] [place] [address] 99198 Platelets (Bld) [#/Vol] 307 10*3/uL Normal 150-450 [facility] Comment on above: Performed By: #### 2 106-3 #### [facility] ([id number]) [address] [place] [address] 42280 RBC COUNT 4.00 X10E12/L Normal 3.80-5.20 [facility] Comment on above: Performed By: #### 2 106-3 #### [facility] ([id number]) [address] [place] [address] 81312 WBC (Bld) [#/Vol] 10.0 10*3/uL Normal 4.0-11.0 [facility] Comment on above: Performed By: #### 2 106-3 #### [facility] ([id number]) [address] [place] [address] 12631 MAGNESIUMon 12-29-2023 Magnesium [Mass/Vol] 2.0 mg/dL Normal 1.8-2.6 [facility] Comment on above: Performed By: #### 2 106-3 #### [facility] ([id number]) [address] [place] [address] 10303 HCG ( test) Ql (U)o n 12-11-2023 Beta HCG ( test) Ql (U) Negative Normal NEG [facility] Comment on above: Performed By: #### 2 106-3 #### [facility] ([id number]) [address] [place] [address] 48723 URN MACROSCOPIC NURon 2023 BILIRUBIN BETHANY Negative Normal NEG [facility] Comment on above: Performed By: #### N UM #### [facility] ([id number]) [address] [place] [address] 94516 BLOOD/HGB BETHANY Negative Normal NEG [facility] Comment on above: Performed By: #### N UM #### [facility] ([id number]) [address] [place] [address] 43100 GLUCOSE BETHANY Negative Normal NEG [facility] Comment on above: Performed By: #### N UM #### [facility] ([id number]) [address] [place] [address] [place] [address] KETONES BETHANY Negative Normal NEG [facility] Comment on above: Performed By: #### N UM #### [facility] ([id number]) [address] [place] [address] [place] [address] LEUKOCYTE ESTERASE BETHANY Negative Normal NEG [facility] Comment on above: Performed By: #### N UM #### [facility] ([id number]) [address] [place] [address] 44827 NITRITE BETHANY Negative Normal NEG [facility] Comment on above: Performed By: #### N UM #### [facility] ([id number]) [address] [place] [address] 93352 PH BETHANY 6.0 Normal 5.0-8.5 [facility] Comment on above: Performed By: #### N UM #### [facility] ([id number]) [address] [place] [address] 92400 PROTEIN BETHANY Negative Normal NEG [facility] Comment on above: Performed By: #### N UM #### [facility] ([id number]) [address] [place] [address] [place] [address] SPECIFIC GRAVITY BETHANY 1.015 Normal 1.003-[address] [place] [address] Comment on above: Performed By: #### N UM #### [facility] ([id number]) [address] [place] [address] 24411 UROBILINOGEN BETHANY 0.2 eu/dL Normal <1.1 [facility] Comment on above: Performed By: #### N UM #### [facility] ([id number]) [address] [place] [address] 12989 BASIC METABOLIC PANLon 11-24 Anion gap [Moles/Vol] 13 mmol/L Normal 5-15 [facility] Comment on above: Performed By: #### B MP #### [facility] ([id number]) [address] [place] [address] 60374 Calcium [Mass/Vol] 9.0 mg/dL Normal 8.5-10.5 [facility] Comment on above: Performed By: #### B MP #### [facility] ([id number]) [address] [place] [address] 99775 Chloride [Moles/Vol] 103 mmol/L Normal 98-109 [facility] Comment on above: Performed By: #### B MP #### [facility] ([id number]) [address] [place] [address] 60815 CO2 [Moles/Vol] 20 mmol/L Low 22-32 [facility] Comment on above: Performed By: #### B MP #### [facility] ([id number]) [address] [place] [address] 28315 Creatinine [Mass/Vol] 0.69 mg/dL Normal 0.40-1.00 [facility] Comment on above: Result Comment: METH OD TRACEABLE TO IDMS STANDARD Performed By: #### B MP #### [facility] ([id number]) [address] [place] [address] [place] [address] eGFR (CKD-EPI) NON-RACE DEPENDENT >90 Normal >59 [facility] Comment on above: Result Comment: Reported eGFR is based on the CKD-EPI 2020 equation that does not use a race coefficient. Performed By: #### B MP #### [facility] ([id number]) [address] [place] [address] 73613 Glucose [Mass/Vol] 95 mg/dL Normal 65-99 [facility] Comment on above: Performed By: #### B MP #### [facility] ([id number]) [address] [place] [address] Potassium [Moles/Vol] 2.9 mmol/L Low 3.5-5.0 [facility] Comment on above: Performed By: #### B MP #### [facility] ([id number]) [address] [place] [address] 57525 Sodium [Moles/Vol] 136 mmol/L Normal 134-146 [facility] Comment on above: Performed By: #### B MP #### [facility] ([id number]) [address] [place] [address] 90653 Urea nitrogen [Mass/Vol] 7 mg/dL Normal 5-23 [facility] Comment on above: Performed By: #### B MP #### [facility] ([id number]) [address] [place] [address] 54237 SARS/FLU A+B/RSV by NAAT/Mol ecularon 11-25-2023 SARS/FLU [...] operators who are performing tests using either Spot formerly PlacePop DX or CrossCore systems and is limited to laboratories that [...] repeat. Fact Sheet for Healthcare Providers: https://www.fda.gov/media /432599/download Fact Sheet for Patients: https://www.fda.gov/media /918534/download Normal [facility] Comment on above: Performed By: #### C OVFLR #### [facility] ([id number]) [address] [place] [address], [place] [address] XR FOOT LT MIN 3 VWSon 09-21 [...] Loya MD on 09/22/2023 12:07 AM Normal [facility] XR SPINE LUMBAR 2 OR 3 Son 09-22-2023 XR SPINE LUMBAR 2 OR 3 [...] Loya MD on 09/22/2023 12:10 AM Normal [facility] XR TIBIA FIBULA LT MIN 2 [...] Loya MD on 09/22/2023 12:09 AM Normal [facility] HCG ( test) Ql (U)o n 09-21-2023 Beta HCG ( test) Ql (U) Negative Normal NEG [facility] Comment on above: Performed By: #### 2 106-3 #### [facility] ([id number]) [address] [place] [address], [place] [address] SARS/FLU A+B/RSV by NAAT/Mol [facility] 07-09-2023 SARS/FLU A+B/RSV by NAAT/Molecular FLU A [...] operators who are performing tests using either GeneXpert DX or GeneXpert Perpetuall systems and is limited to laboratories that [...] repeat. Fact Sheet for Healthcare Providers: https://www.fda.gov/media /944549/download Fact Sheet for Patients: https://www.fda.gov/media /464848/download Normal [facility] Comment on above: Performed By: #### C OVFLR #### [facility] ([id number]) [address] [place] [address] Provider Letteron 02-25-2023 Provider Letter (Inserted Image. Swapna ble to display) February 25, [address] CARMEN [address] [place] [id number] : 1995 Dear Jennifer , We have been trying to reach you with no success. It is important that you return our call regarding your referral to our office by Jennifer upon receiving this letter. Also, at the time of your call, please provide us with your current information. Thank you for your prompt attention to this matter. Sincerely, [facility] [phone] Normal [facility] Physician Referralon 023 Physician Referral [id number] Normal [facility] Urinalysis - AUTOMATEDon Appearance (U) cloudy [employer] Other Bilirubin Ql (U) Negative goviral Other Color (U) yellow [employer] Other Glucose Ql (U) Negative [employer] Other Hemoglobin Ql (U) Trace-intact [employer] Other Ketones Ql (U) Negative [employer] Other Leukocyte esterase Test strip Ql (U) Trace [employer] Other Nitrite Ql (U) Negative [employer] Other pH (U) 6.0 [pH] [employer] Other Protein Ql (U) Negative [employer] Other Specific gravity (U) [Rel density] <=1.005 [employer] Other Urobilinogen (U) [Mass/Vol] 0.2 mg/dL [employer] Other Urinalysis - AUTOMATED No rt [employer] Other Quick Strepon 04-26-2022 S. pyogenes Org specific cx Ql (Throat) Negative Stream[employer] Other Quick Strep Stream[employer] Other SARS-CoV-2 (COVID-19) RNA NA A+probe Ql (Resp)on 04-23-2022 SARS-CoV-2 (COVID-19) RNA EMMANUELLE+probe Ql (Unsp spec) Negative Stream[employer] Other Covid-19 PCR (CVDTB)on 03-16 SARS-CoV-2 (COVID-19) RNA EMMANUELLE+probe Ql (Unsp spec) Not detected Normal NOT DETECTED [facility] Comment on above: Result Comment: This test is not yet approved or cleared by the [place] FDA. When there are no FDA-approved or cleared tests available, and other criteria are met, FDA can make tests available under an emergency access mechanism called an Emergency Use Authorization (EUA). The EUA for this test is supported by the [place] of Health and Human Service's (HHS's) declaration [...] SARS-CoV-2. Performed By: #### C BC #### [facility] [address] [place] [address] Dr. Katrin Ceja SARS-CoV-2 (COVID-19) RNA NA A+probe Ql (Resp)on 03-27-2022 SARS-CoV-2 (COVID-19) RNA EMMANUELLE+probe Ql (Unsp spec) Negative Stream5 Other CBC AUTO DIFFon 03-22-2022 BASO # 0.0 103/ul Normal 0.0-0.1 [facility] Comment on above: Performed By: #### L IPID, CMP #### [facility] [address] [place] [id number] Katrin Ceja Basophils/100 WBC (Bld) 0.3 % Normal 0.2-2.0 [facility] Comment on above: Performed By: #### L IPID, CMP #### [facility] [address] [place] [id number] Katrin Ceja EO # 0.2 103/ul Normal 0.0-0.7 [facility] Comment on above: Performed By: #### L IPID, CMP #### [facility] [address] [place] [address] Dr. Katrin Ceja Eosinophils/100 WBC (Bld) 2.2 % Normal 0.9-7.0 [facility] Comment on above: Performed By: #### L IPID, CMP #### [facility] [address] [place] [address] Dr. Katrin Ceja Erythrocyte distribution width (RBC) [Ratio] 11.9 % Normal 11.0-15.0 [facility] Comment on above: Performed By: #### L IPID, CMP #### [facility] [address] [place] [address] Dr. Katrin Ceja Hematocrit (Bld) [Volume fraction] 36.4 % Normal 36.0-48.0 [facility] Comment on above: Performed By: #### L IPID, CMP #### [facility] [address] [place] [address] Dr. Katrin Ceja Hemoglobin (Bld) [Mass/Vol] 12.6 g/dL Normal 12.0-16.0 [facility] Comment on above: Performed By: #### L IPID, CMP #### [facility] [address] [place] [address] Dr. Katrin Ceja IG # 0.03 10e3/ul Normal 0.00-0.03 [facility] Comment on above: Performed By: #### L IPID, CMP #### [facility] [address] [place] [address] Dr. Katrin Ceja IG % 0.3 % Normal 0.0-0.5 [facility] Comment on above: Performed By: #### L IPID, CMP #### [facility] [address] [place] [address] Dr. Katrin Ceja LYMPH # 3.5 103/ul Normal 1.2-3.8 [facility] Comment on above: Performed By: #### L IPID, CMP #### [facility] [address] [place] [address] Dr. Katrin Ceja Lymphocytes/100 WBC (Bld) 33.1 % Normal 20.5-60.0 [facility] Comment on above: Performed By: #### L IPID, CMP #### [facility] [address] [place] [address] Dr. Katrin Ceja MANUAL DIFF REQ NO Normal [facility] Comment on above: Performed By: #### L IPID, CMP #### [facility] [address] [place] [address] Dr. Katrin Ceja MCH (RBC) [Entitic mass] 29.9 pg Normal 26.7-34.0 [facility] Comment on above: Performed By: #### L IPID, CMP #### [facility] [address] [place] [address] Dr. Katrin Ceja MCHC (RBC) [Mass/Vol] 34.6 g/dL Normal 29.9-35.2 [facility] Comment on above: Performed By: #### L IPID, CMP #### [facility] [address] [place] [address] Dr. Katrin Ceja MCV (RBC) [Entitic vol] 86.5 fL Normal 81.0-99.0 [facility] Comment on above: Performed By: #### L IPID, CMP #### [facility] [address] [place] [address] Dr. Katrin Ceja MONO # 0.7 103/ul Normal 0.3-0.8 [facility] Comment on above: Performed By: #### L IPID, CMP #### [facility] [address] [place] [address] Dr. Katrin Ceja Monocytes/100 WBC (Bld) 6.5 % Normal 1.7-12.0 [facility] Comment on above: Performed By: #### L IPID, CMP #### [facility] [address] [place] [address] Dr. Katrin Ceja NEUT # 6.0 103/ul Normal 1.4-6.5 [facility] Comment on above: Performed By: #### L IPID, CMP #### [facility] [address] [place] [address] Dr. Katrin Ceja Neutrophils/100 WBC (Bld) 57.6 % Normal 43.0-75.0 [facility] Comment on above: Performed By: #### L IPID, CMP #### [facility] [address] [place] [address] Dr. Katrin Ceja Platelet mean volume (Bld) [Entitic vol] 8.7 fL Critically low 9.5-13.5 [facility] Comment on above: Performed By: #### L IPID, CMP #### [facility] [address] [place] [address] Dr. Katrin Ceja PLT 282 103/ul Normal 150-450 [facility] Comment on above: Performed By: #### L IPID, CMP #### [facility] [address] [place] [address] Dr. Katrin Ceja RBC 4.21 106/ul Normal 4.20-5.40 [facility] Comment on above: Performed By: #### L IPID, CMP #### [facility] [address] [place] [address] Dr. Katrin Ceja WBC 10.5 103/ul Normal 4.0-11.0 [facility] Comment on above: Performed By: #### L IPID, CMP #### [facility] [address] [place] [address] Dr. Katrin Ceja ER URINE PROFILEon 2 Bilirubin Ql (U) Negative Normal NEGATIVE [facility] Comment on above: Performed By: #### L IPID, CMP #### [facility] [address] [place] [address] Dr. Katrin Ceja Clarity (U) CLEAR Normal CLEAR [facility] Comment on above: Performed By: #### L IPID, CMP #### [facility] [address] [place] [address] Dr. Katrin Ceja Color (U) LT. YELLOW Normal YELLOW [facility] Comment on above: Performed By: #### L IPID, CMP #### [facility] [address] [place] [address] Dr. Katrin ANN A micrscopic examina tion will be performed if indicated. Normal [facility] Comment on above: Performed By: #### L IPID, CMP #### [facility] [address] [place] [address] Dr. Katrin Ceja Glucose Ql (U) Negative Normal NEGATIVE [facility] Comment on above: Performed By: #### L IPID, CMP #### [facility] [address] [place] [address] Dr. Katrin Ceja Hemoglobin Ql (U) Negative Normal NEGATIVE [facility] Comment on above: Performed By: #### L IPID, CMP #### [facility] [address] [place] [address] Dr. Katrin Ceja Ketones Ql (U) Negative Normal NEGATIVE [facility] Comment on above: Performed By: #### L IPID, CMP #### [facility] [address] [place] [address] Dr. Katrin Ceja LEUKOCYTES Negative Normal NEGATIVE [facility] Comment on above: Performed By: #### L IPID, CMP #### [facility] [address] [place] [address] Dr. Katrin Ceja Nitrite Ql (U) Negative Normal NEGATIVE [facility] Comment on above: Performed By: #### L IPID, CMP #### [facility] [address] [place] [address] Dr. Katrin Ceja pH (U) 6.0 [pH] Normal 5-9 [facility] Comment on above: Performed By: #### L IPID, CMP #### [facility] [address] [place] [address] Dr. Katrin Ceja SPEC GRAVITY 1.015 Normal 1.005-<=1. 025 [facility] Comment on above: Performed By: #### L IPID, CMP #### [facility] [address] [place] [address] Dr. Katrin Ceja UA PROTEIN Negative Normal NEGATIVE/ TRACE [facility] Comment on above: Performed By: #### L IPID, CMP #### [facility] [address] [place] [address] Dr. Katrin Ceja UR MICRO IND NOT INDICATED Normal [facility] Comment on above: Performed By: #### L IPID, CMP #### [facility] [address] [place] [address] Dr. Katrin Ceja Urobilinogen Qn (U) 0.2 {Jeannie'U}/dL Normal 0.2 - 1. 0 [facility] Comment on above: Performed By: #### L IPID, CMP #### [facility] [address] [place] [address] Dr. Katrin Ceja LIPASEon 03-22-2022 Lipase [Catalytic activity/Vol] 84.0 U/L Normal 73.0-393.0 [facility] Comment on above: Performed By: #### H STROPN, CMP, LIPA #### [facility] [address] [place] [address] Dr. Katrin Ceja URon 03-22-2022 , QUAL Negative Normal NEGATIVE [facility] Comment on above: Performed By: #### L IPID, CMP #### [facility] [address] [place] [address] Dr. Katrin Ceja PROF 14(COMP METB)on 022 Albumin [Mass/Vol] 3.2 g/dL Critically low 3.4-5.0 [facility] Comment on above: Performed By: #### H STROPN, CMP, LIPA #### [facility] [address] [place] [address] Dr. Katrin Ceja Albumin/Globulin [Mass ratio] 0.8 {ratio} Normal [facility] Comment on above: Performed By: #### H STROPN, CMP, LIPA #### [facility] [address] [place] [address] Dr. Katrin Ceja ALP [Catalytic activity/Vol] 189 U/L Critically high 46-116 [facility] Comment on above: Performed By: #### H STROPN, CMP, LIPA #### [facility] [address] [place] [address] Dr. Katrin Ceja ALT [Catalytic activity/Vol] 31 U/L Normal 14-59 [facility] Comment on above: Performed By: #### H STROPN, CMP, LIPA #### [facility] [address] [address] [address] Katrin Ceja Anion gap [Moles/Vol] 9.9 mmol/L Normal [facility] Comment on above: Performed By: #### H STROPN, CMP, LIPA #### [facility] [address] [address] [address] Katrin Ceja AST [Catalytic activity/Vol] 17 U/L Normal 15-37 [facility] Comment on above: Performed By: #### H STROPN, CMP, LIPA #### [facility] [address] [address] [address] Katrin Ceja Bilirubin [Mass/Vol] 0.2 mg/dL Normal 0.2-1.0 [facility] Comment on above: Performed By: #### H STROPN, CMP, LIPA #### [facility] [address] [address] [address] Katrin Ceja Calcium [Mass/Vol] 8.7 mg/dL Normal 8.5-10.1 [facility] Comment on above: Performed By: #### H STROPN, CMP, LIPA #### [facility] [address] [address] [address] Katrin Ceja Chloride [Moles/Vol] 103 mmol/L Normal 98-107 [facility] Comment on above: Performed By: #### H STROPN, CMP, LIPA #### [facility] [address] [address] [address] Katrin Ceja CO2 [Moles/Vol] 25.4 mmol/L Normal 21.0-32.0 [facility] Comment on above: Performed By: #### H STROPN, CMP, LIPA #### [facility] [address] [address] [address] Katrin Ceja Creatinine [Mass/Vol] 0.71 mg/dL Normal 0.55-1.02 [facility] Comment on above: Performed By: #### H STROPN, CMP, LIPA #### [facility] [address] [address] [address] Katrin Ceja EGFR-AF SOU[place]ORE[place] >60 Normal >=60 [facility] Comment on above: Performed By: #### H STROPN, CMP, LIPA #### [facility] [address] [address] [address] Katrni Ceja EGFR-NON AF [place] >60 Normal >=60 [facility] Comment on above: Performed By: #### H STROPN, CMP, LIPA #### [facility] [address] [address] [address] Katrin Ceja Globulin (S) [Mass/Vol] 4.0 g/dL Normal [facility] Comment on above: Performed By: #### H STROPN, CMP, LIPA #### [facility] [address] [place] [address] Dr. Katrin Ceja Glucose [Mass/Vol] 106 mg/dL Normal 74-106 [facility] Comment on above: Performed By: #### H STROPN, CMP, LIPA #### [facility] [address] [address] [address] Katrin Ceja Potassium [Moles/Vol] 3.3 mmol/L Critically low 3.5-5.1 [facility] Comment on above: Performed By: #### H STROPN, CMP, LIPA #### [facility] [address] [address] [address] Katrin Ceja Protein [Mass/Vol] 7.2 g/dL Normal 6.4-8.2 [facility] Comment on above: Performed By: #### H STROPN, CMP, LIPA #### [facility] [address] [address] [address] Katrin Ceja Sodium [Moles/Vol] 135 mmol/L Critically low 136-145 [facility] Comment on above: Performed By: #### H STROPN, CMP, LIPA #### [facility] [address] [address] [address] Katrin Ceja Urea nitrogen [Mass/Vol] 5.0 mg/dL Critically low 7.0-18.0 [facility] Comment on above: Performed By: #### H STROPN, CMP, LIPA #### [facility] [address] [address] [address] Katrin Ceja Urea nitrogen/Creatinine [Mass ratio] 7.0 mg/mg Normal [facility] Comment on above: Performed By: #### H STROPN, CMP, LIPA #### [facility] [address] [address] [address] Katrin Ceja TROPONIN, HIGH SENSITIVITYon 03-22-2022 HSTROP <4.0 Normal 4.0-51.3 [facility] Comment on above: Result Comment: CUT- OFF POINTS HAVE BEEN ESTABLISHED BASED ON THE FOURTH UNIVERSAL DEFINITIONS OF MYOCARDIAL INFARCTION. THE UPPER REFERENCE LIMIT (URL) OF TROPONIN, DEFINED THE 99TH PERCENTILE OF cTnI DISTRIBUTION IN A REFERENCE POPULATION, HAS BEEN CONFIRMED THE DECISION THRESHOLD FOR UT DIAGNOSIS. Performed By: #### H STROSARAHI CMP, LIPA #### [facility] [address] [address] [address] Katrin Ceja XR ABD FLAT UP_PA [...] GERI LASSITER Date: 2022-03-22 01:53 Normal [facility] XR ANKLE LT MIN 3 Von 2021 XR ANKLE LT MIN 3 V EXAM: XR ANKLE LT UT N 3 V HISTORY: Ankle pain COMPARISON: None. TECHNIQUE: 3 views FINDINGS: No osseous lesion, fracture, dislocation or subluxation. Joint spaces are normal. Old posttraumatic ossifications adjacent to the tip of the lateral malleolus. No visualized effusion. No visualized soft tissue edema. IMPRESSION: Normal x-rays Electronically authenticated by: DANNI QUINONES Date: 2022-03-09 19:32 Normal [facility] CBC AUTO DIFFon 02-08-2022 BASO # 0.0 103/ul Normal 0.0-0.1 [facility] Comment on above: Performed By: #### C BC #### [facility] [address] [address] [address] Katrin Ceja Basophils/100 WBC (Bld) 0.3 % Normal 0.2-2.0 [facility] Comment on above: Performed By: #### C BC #### [facility] [address] [place] [address] Dr. Katrin Ceja EO # 0.3 103/ul Normal 0.0-0.7 [facility] Comment on above: Performed By: #### C BC #### [facility] [address] [address] [address] Katrin Ceja Eosinophils/100 WBC (Bld) 3.0 % Normal 0.9-7.0 [facility] Comment on above: Performed By: #### C BC #### [facility] [address] [address] [address] Katrin Ceja Erythrocyte distribution width (RBC) [Ratio] 12.2 % Normal 11.0-15.0 [facility] Comment on above: Performed By: #### C BC #### [facility] [address] [place] [address] Dr. Katrin Ceja Hematocrit (Bld) [Volume fraction] 33.8 % Critically low 36.0-48.0 [facility] Comment on above: Performed By: #### C BC #### [facility] [address] [place] [address] Dr. Katrin Ceja Hemoglobin (Bld) [Mass/Vol] 11.9 g/dL Critically low 12.0-16.0 [facility] Comment on above: Performed By: #### C BC #### [facility] [address] [place] [address] Dr. Katrin Ceja IG # 0.04 10e3/ul Critically high 0.00-0.03 [facility] Comment on above: Performed By: #### C BC #### [facility] [address] [place] [address] Dr. Katrin Ceja IG % 0.4 % Normal 0.0-0.5 [facility] Comment on above: Performed By: #### C BC #### [facility] [address] [place] [address] Dr. Katrin Ceja LYMPH # 3.0 103/ul Normal 1.2-3.8 [facility] Comment on above: Performed By: #### C BC #### [facility] [address] [place] [address] Dr. Katrin Ceja Lymphocytes/100 WBC (Bld) 28.4 % Normal 20.5-60.0 [facility] Comment on above: Performed By: #### C BC #### [facility] [address] [place] [address] Dr. Katrin Ceja MANUAL DIFF REQ NO Normal [facility] Comment on above: Performed By: #### C BC #### [facility] [address] [place] [address] Dr. Katrin Ceja MCH (RBC) [Entitic mass] 29.8 pg Normal 26.7-34.0 [facility] Comment on above: Performed By: #### C BC #### [facility] [address] [place] [address] Dr. Katrin Ceja MCHC (RBC) [Mass/Vol] 35.2 g/dL Normal 29.9-35.2 [facility] Comment on above: Performed By: #### C BC #### [facility] [address] [place] [address] Dr. Katrin Ceja MCV (RBC) [Entitic vol] 84.7 fL Normal 81.0-99.0 [facility] Comment on above: Performed By: #### C BC #### [facility] [address] [place] [address] Dr. Katrin Ceja MONO # 0.7 103/ul Normal 0.3-0.8 [facility] Comment on above: Performed By: #### C BC #### [facility] [address] [place] [address] Dr. Katrin Ceja Monocytes/100 WBC (Bld) 6.6 % Normal 1.7-12.0 [facility] Comment on above: Performed By: #### C BC #### [facility] [address] [place] [address] Dr. Katrin Ceja NEUT # 6.4 103/ul Normal 1.4-6.5 [facility] Comment on above: Performed By: #### C BC #### [facility] [address] [place] [address] Dr. Katrin Ceja Neutrophils/100 WBC (Bld) 61.3 % Normal 43.0-75.0 [facility] Comment on above: Performed By: #### C BC #### [facility] [address] [place] [address] Dr. Katrin Ceja Platelet mean volume (Bld) [Entitic vol] 8.9 fL Critically low 9.5-13.5 [facility] Comment on above: Performed By: #### C BC #### [facility] [address] [place] [address] Dr. Katrin Ceja PLT 299 103/ul Normal 150-450 [facility] Comment on above: Performed By: #### C BC #### [facility] [address] [place] [address] Dr. Katrin Ceja RBC 3.99 106/ul Critically low 4.20-5.40 [facility] Comment on above: Performed By: #### C BC #### [facility] [address] [place] [address] Dr. Katrin Ceja WBC 10.4 103/ul Normal 4.0-11.0 [facility] Comment on above: Performed By: #### C BC #### [facility] [address] [place] [address] Dr. Katrin Munoz-Barak 02-08-2022 D-DIMER 0.59 mg/L FEU Normal <=0.59 [facility] Comment on above: Performed By: #### L IPID, CMP #### [facility] [address] [place] [address] Dr. Katrin Ceja D-DIMER COMMENTS SEE BELOW Normal [facility] Comment on above: Result Comment: Incr [...] and generalized hospitalization. Performed By: #### L GARRETT, CMP #### [facility] [address] [place] [address] Dr. Katrin Ceja PROF CHEM 8 (BAS METB)on Anion gap [Moles/Vol] 12.8 mmol/L Normal [facility] Comment on above: Performed By: #### C BC #### [facility] [address] [place] [address] Dr. Katrin Ceja Calcium [Mass/Vol] 8.7 mg/dL Normal 8.5-10.1 [facility] Comment on above: Performed By: #### C BC #### [facility] [address] [place] [address] Dr. Katrin Ceja Chloride [Moles/Vol] 102 mmol/L Normal 98-107 [facility] Comment on above: Performed By: #### C BC #### [facility] [address] [place] [address] Dr. Katrin Ceja CO2 [Moles/Vol] 25.9 mmol/L Normal 21.0-32.0 [facility] Comment on above: Performed By: #### C BC #### [facility] [address] [place] [address] Dr. Katrin Ceja Creatinine [Mass/Vol] 0.70 mg/dL Normal 0.55-1.02 [facility] Comment on above: Performed By: #### C BC #### [facility] [address] [address] [address] Katrin Ceja EGFR-AF [place] >60 Normal >=60 [facility] Comment on above: Performed By: #### C BC #### [facility] [address] [address] [address] Katrin Ceja EGFR-NON AF [place] >60 Normal >=60 [facility] Comment on above: Performed By: #### C BC #### [facility] [address] [address] [address] Katrin Ceja Glucose [Mass/Vol] 95 mg/dL Normal 74-106 [facility] Comment on above: Performed By: #### C BC #### [facility] [address] [place] [address] Dr. Katrin Ceja Potassium [Moles/Vol] 2.7 mmol/L Critically low 3.5-5.1 [facility] Comment on above: Result Comment: Test Repeated. Critical Value Verified Performed By: #### C BC #### [facility] [address] [place] [address] Dr. Katrin Ceja Sodium [Moles/Vol] 136 mmol/L Normal 136-145 [facility] Comment on above: Performed By: #### C BC #### [facility] [address] [address] [address] Katrin Ceja Urea nitrogen [Mass/Vol] 3.0 mg/dL Critically low 7.0-18.0 [facility] Comment on above: Performed By: #### C BC #### [facility] [address] [address] [address] Katrin Ceja Urea nitrogen/Creatinine [Mass ratio] 4.3 mg/mg Normal [facility] Comment on above: Performed By: #### C BC #### [facility] [address] [place] [address] Dr. Katrin Ceja XR CHEST 2 Von [...] by: RIVER RODGERS Date: 2022-02-08 04:19 Normal [facility] LIPID PROFILEon 12-18-2021 CHOL-HDL RATIO NORM SEE BELOW Normal [facility] Comment on above: Result Comment: 3.3 - 4.4 LOW RISK 4.4 - 7.1 AVERAGE RISK 7.1 - 11.0 MODERATE RISK >11.0 HIGH RISK Performed By: #### L IPID, LIVER #### [facility] [address] [address] [address] Katrin Ceja Cholesterol [Mass/Vol] 126 mg/dL Normal <=200 [facility] Comment on above: Performed By: #### L IPID, LIVER #### [facility] [address] [address] [address] Katrin Ceja Cholesterol in HDL [Mass/Vol] 31 mg/dL Critically low 40-60 [facility] Comment on above: Performed By: #### L IPID, LIVER #### [facility] [address] [address] [address] Katrin Ceja Cholesterol in LDL [Mass/Vol] 59.2 mg/dL Normal [facility] Comment on above: Performed By: #### L IPID, LIVER #### [facility] [address] [address] [address] Katrin Ceja Cholesterol.total/Chol esterol in HDL [Mass ratio] 4.1 {ratio} Normal [facility] Comment on above: Performed By: #### L IPID, LIVER #### [facility] [address] [address] [address] Katrin Ceja HDL NORMAL > or = 60 mg/dl - LO W CARDIOVASCULAR RISK <40 mg/dl - HIGH CARDIOVASCULAR RISK Normal [facility] Comment on above: Performed By: #### L IPID, LIVER #### [facility] [address] [address] [address] Katrin Ceja LDL CALC NORMAL SEE BELOW Normal [facility] [facility] Comment on above: Result Comment: <100 mg/dl OPTIMAL 100 - 129 mg/dl NEAR OR ABOVE OPTIMAL 130 - 159 mg/dl BORDERLINE HIGH 160 - 189 mg/dl HIGH >190 mg/dl VERY HIGH Performed By: #### L IPID, LIVER #### [facility] [address] [address] [address] Katrin Ceja Triglyceride [Mass/Vol] 179 mg/dL Critically high <=150 [facility] Comment on above: Performed By: #### L IPID, LIVER #### [facility] [address] [place] [address] Dr. Katrin Ceja VLDL CALC 35.8 mg/dL Normal [facility] Comment on above: Performed By: #### L IPID, LIVER #### [facility] [address] [address] [address] Katrin Ceja LIVER PROFILEon 12-18-2021 Albumin [Mass/Vol] 3.6 g/dL Normal 3.4-5.0 [facility] Comment on above: Performed By: #### L IPID, LIVER #### [facility] [address] [place] [address] Dr. Katrin Ceja Albumin/Globulin [Mass ratio] 0.8 {ratio} Normal [facility] Comment on above: Performed By: #### L IPID, LIVER #### [facility] [address] [place] [address] Dr. Katrin Ceja ALP [Catalytic activity/Vol] 196 U/L Critically high 46-116 [facility] Comment on above: Performed By: #### L IPID, LIVER #### [facility] [address] [place] [address] Dr. Katrin Ceja ALT [Catalytic activity/Vol] 51 U/L Normal 14-59 [facility] Comment on above: Performed By: #### L IPID, LIVER #### [facility] [address] [place] [address] Dr. Katrin Ceja AST [Catalytic activity/Vol] 22 U/L Normal 15-37 [facility] Comment on above: Performed By: #### L IPID, LIVER #### [facility] [address] [place] [address] Dr. Katrin Ceja BILI, CONJUGATED 0.1 mg/dL Normal 0.0-0.2 [facility] Comment on above: Performed By: #### L IPID, LIVER #### [facility] [address] [place] [address] Dr. Katrin Ceja Bilirubin [Mass/Vol] 0.4 mg/dL Normal 0.2-1.0 [facility] Comment on above: Performed By: #### L IPID, LIVER #### [facility] [address] [place] [address] Dr. Katrin Ceja Globulin (S) [Mass/Vol] 4.4 g/dL Normal [facility] Comment on above: Performed By: #### L IPID, LIVER #### [facility] [address] [place] [address] Dr. Katrin Ceja Protein [Mass/Vol] 8.0 g/dL Normal 6.4-8.2 [facility] Comment on above: Performed By: #### L IPID, LIVER #### [facility] [address] [place] [address] Dr. Katrin Ceja XR FOOT RT MIN [...] RIVER RODGERS Date: 2021-12-07 00:19 Normal [facility] PROF 14(COMP METB)on 022 Albumin [Mass/Vol] 3.6 g/dL Normal 3.4-5.0 [facility] Comment on above: Performed By: #### L IPID, CMP #### [facility] [address] [address] [address] Katrin Ceja Albumin/Globulin [Mass ratio] 0.8 {ratio} Normal [facility] Comment on above: Performed By: #### L IPID, CMP #### [facility] [address] [address] [address] Katrin Ceja ALP [Catalytic activity/Vol] 209 U/L Critically high 46-116 [facility] Comment on above: Performed By: #### L IPID, CMP #### [facility] [address] [address] [address] Katrin Ceja ALT [Catalytic activity/Vol] 65 U/L Critically high 14-59 [facility] Comment on above: Performed By: #### L IPID, CMP #### [facility] [address] [address] [address] Katrin Ceja Anion gap [Moles/Vol] 15.7 mmol/L Normal [facility] Comment on above: Performed By: #### L IPID, CMP #### [facility] [address] [address] [address] Katrin Ceja AST [Catalytic activity/Vol] 31 U/L Normal 15-37 [facility] Comment on above: Performed By: #### L IPID, CMP #### [facility] [address] [address] [address] Katrin Ceja Bilirubin [Mass/Vol] 0.2 mg/dL Normal 0.2-1.3 [facility] Comment on above: Performed By: #### L IPID, CMP #### [facility] [address] [address] [address] Katrin Ceja Calcium [Mass/Vol] 8.8 mg/dL Normal 8.5-10.1 [facility] Comment on above: Performed By: #### L IPID, CMP #### [facility] [address] [address] [address] Katrin Ceja Chloride [Moles/Vol] 105 mmol/L Normal 98-107 [facility] Comment on above: Performed By: #### L IPID, CMP #### [facility] [address] [address] [address] Katrin Ceja CO2 [Moles/Vol] 21.3 mmol/L Critically low 22.0-30.0 [facility] Comment on above: Performed By: #### L IPID, CMP #### [facility] [address] [address] [address] Katrin Ceja Creatinine [Mass/Vol] 0.72 mg/dL Normal 0.52-1.04 [facility] Comment on above: Performed By: #### L IPID, CMP #### [facility] [address] [place] [address] Dr. Katrin Ceja EGFR-AF [place]ORE[place] >60 Normal >=60 [facility] Comment on above: Performed By: #### L IPID, CMP #### [facility] [address] [address] [address] Katrin Ceja EGFR-NON AF [place] >60 Normal >=60 [facility] Comment on above: Performed By: #### L IPID, CMP #### [facility] [address] [address] [address] Katrin Ceja Globulin (S) [Mass/Vol] 4.3 g/dL Normal [facility] Comment on above: Performed By: #### L IPID, CMP #### [facility] [address] [address] [address] Katrin Ceja Glucose [Mass/Vol] 99 mg/dL Normal 74-106 [facility] Comment on above: Performed By: #### L IPID, CMP #### [facility] [address] [address] [address] Katrin Ceja Potassium [Moles/Vol] 4.0 mmol/L Normal 3.4-5.0 [facility] Comment on above: Performed By: #### L IPID, CMP #### [facility] [address] [address] [address] Katrin Ceja Protein [Mass/Vol] 7.9 g/dL Normal 6.1-8.2 [facility] Comment on above: Performed By: #### L IPID, CMP #### [facility] [address] [address] [address] Katrin Ceja Sodium [Moles/Vol] 138 mmol/L Normal 137-145 [facility] Comment on above: Performed By: #### L IPID, CMP #### [facility] [address] [address] [address] Katrin Ceja Urea nitrogen [Mass/Vol] 13.0 mg/dL Normal 7.0-18.0 [facility] Comment on above: Performed By: #### L IPID, CMP #### [facility] [address] [address] [address] Katrin Ceja Urea nitrogen/Creatinine [Mass ratio] 18.1 mg/mg Normal [facility] Comment on above: Performed By: #### L IPID, CMP #### [facility] [address] [address] [address] Katrin Ceja XR HUMERUS RT MIN [...] MODESTA NAVA Date: 2021-10-17 01:46 Normal [facility] XR SHOULDER RT 2V or >on XR SHOULDER RT 2V or > EXAM: XR SHOULDER RT 2V or > HISTORY: Pain right arm pain following fall. COMPARISON: None. TECHNIQUE: Standard 3 views of the right shoulder. FINDINGS: No acute or intrinsic osseous, articular or soft tissue abnormality is seen. IMPRESSION: No acute findings. Electronically authenticated by: MODESTA NAVA Date: 2021-10-17 01:45 Normal [facility] XR WRIST RT MIN 3 Von 2021 XR WRIST RT MIN 3 V EXAM: XR WRIST RT UT N 3 V HISTORY: Pain acute right arm pain following fall. COMPARISON: None. TECHNIQUE: AP, oblique and lateral views of the right wrist. FINDINGS: No acute or intrinsic osseous, articular or soft tissue abnormality is seen. IMPRESSION: No acute right wrist findings. Electronically authenticated by: MODESTA NAVA Date: 2021-10-17 01:44 Normal [facility] AMYLASEon 09-18-2021 Amylase [Catalytic activity/Vol] 34 U/L Normal 31-110 [facility] Comment on above: Performed By: #### P REG #### [facility] [address] [place] [address] Dr. Katrin Ceja CBC AUTO DIFFon 09-18-2021 BASO # 0.0 103/ul Normal 0.0-0.1 [facility] Comment on above: Performed By: #### C BC #### [facility] [address] [place] [address] Dr. Katrin Ceja Basophils/100 WBC (Bld) 0.3 % Normal 0.2-2.0 [facility] Comment on above: Performed By: #### C BC #### [facility] [address] [place] [address] Dr. Katrin Ceja EO # 0.2 103/ul Normal 0.0-0.7 [facility] Comment on above: Performed By: #### C BC #### [facility] [address] [place] [address] Dr. Katrin Ceja Eosinophils/100 WBC (Bld) 2.4 % Normal 0.9-7.0 [facility] Comment on above: Performed By: #### C BC #### [facility] [address] [place] [address] Dr. Katrin Ceja Erythrocyte distribution width (RBC) [Ratio] 12.5 % Normal 11.0-15.0 [facility] Comment on above: Performed By: #### C BC #### [facility] [address] [place] [address] Dr. Katrin Ceja Hematocrit (Bld) [Volume fraction] 37.4 % Normal 36.0-48.0 [facility] Comment on above: Performed By: #### C BC #### [facility] [address] [address] [address] Katrin Ceja Hemoglobin (Bld) [Mass/Vol] 12.3 g/dL Normal 12.0-16.0 [facility] Comment on above: Performed By: #### C BC #### [facility] [address] [address] [address] Katrin Ceja IG # 0.05 10e3/ul Critically high 0.00-0.03 [facility] Comment on above: Performed By: #### C BC #### [facility] [address] [address] [address] Katrin Ceja IG % 0.5 % Normal 0.0-0.5 [facility] Comment on above: Performed By: #### C BC #### [facility] [address] [place] [address] Dr. Katrin Ceja LYMPH # 3.1 103/ul Normal 1.2-3.8 [facility] Comment on above: Performed By: #### C BC #### [facility] [address] [place] [address] Dr. Katrin Ceja Lymphocytes/100 WBC (Bld) 31.7 % Normal 20.5-60.0 [facility] Comment on above: Performed By: #### C BC #### [facility] [address] [place] [address] Dr. Katrin Ceja MANUAL DIFF REQ NO Normal [facility] Comment on above: Performed By: #### C BC #### [facility] [address] [place] [address] Dr. Katrin Ceja MCH (RBC) [Entitic mass] 28.9 pg Normal 26.7-34.0 [facility] Comment on above: Performed By: #### C BC #### [facility] [address] [place] [address] Dr. Katrin Ceja MCHC (RBC) [Mass/Vol] 32.9 g/dL Normal 29.9-35.2 [facility] Comment on above: Performed By: #### C BC #### [facility] [address] [address] [address] Katrin Ceja MCV (RBC) [Entitic vol] 88.0 fL Normal 81.0-99.0 [facility] Comment on above: Performed By: #### C BC #### [facility] [address] [address] [address] Katrin Ceja MONO # 0.7 103/ul Normal 0.3-0.8 [facility] Comment on above: Performed By: #### C BC #### [facility] [address] [place] [address] Dr. Katrin Ceja Monocytes/100 WBC (Bld) 6.7 % Normal 1.7-12.0 [facility] Comment on above: Performed By: #### C BC #### [facility] [address] [place] [address] Dr. Katrin Ceja NEUT # 5.7 103/ul Normal 1.4-6.5 [facility] Comment on above: Performed By: #### C BC #### [facility] [address] [place] [address] Dr. Katrin Ceja Neutrophils/100 WBC (Bld) 58.4 % Normal 43.0-75.0 [facility] Comment on above: Performed By: #### C BC #### [facility] [address] [place] [address] Dr. Katrin Ceja Platelet mean volume (Bld) [Entitic vol] 8.8 fL Critically low 9.5-13.5 [facility] Comment on above: Performed By: #### C BC #### [facility] [address] [place] [address] Dr. Katrin Ceja PLT 265 103/ul Normal 150-450 [facility] Comment on above: Performed By: #### C BC #### [facility] [address] [place] [address] Dr. Katrin Ceja RBC 4.25 106/ul Normal 4.20-5.40 [facility] Comment on above: Performed By: #### C BC #### [facility] [address] [address] [address] Katrin Ceja WBC 9.7 103/ul Normal 4.0-11.0 [facility] Comment on above: Performed By: #### C BC #### [facility] [address] [address] [address] ABD/PELV W CONon [...] ISAIAH FAROOQ Date: 2021-09-18 03:51 Normal [facility] URINE PROFILEon 2 Bilirubin Ql (U) Negative Normal NEGATIVE [facility] Comment on above: Performed By: #### C BC #### [facility] [address] [id number] Katrin Ceja Clarity (U) CLEAR Normal CLEAR [facility] Comment on above: Performed By: #### C BC #### [facility] [address] [place] [address] Dr. Katrin Ceja Color (U) LT. YELLOW Normal YELLOW [facility] Comment on above: Performed By: #### C BC #### [facility] [address] [place] [address] Dr. Katrin ANN A micrscopic examina tion will be performed if indicated. Normal [facility] Comment on above: Performed By: #### C BC #### [facility] [address] [place] [address] Dr. Katrin Ceja Glucose Ql (U) Negative Normal NEGATIVE [facility] Comment on above: Performed By: #### C BC #### [facility] [address] [place] [address] Dr. Katrin Ceja Hemoglobin Ql (U) SMALL Abnormal NEGATIVE [facility] Comment on above: Performed By: #### C BC #### [facility] [address] [place] [address] Dr. Katrin Ceja Ketones Ql (U) Negative Normal NEGATIVE [facility] Comment on above: Performed By: #### C BC #### [facility] [address] [place] [address] Dr. Katrin Ceja LEUKOCYTES Negative Normal NEGATIVE [facility] Comment on above: Performed By: #### C BC #### [facility] [address] [place] [address] Dr. Katrin Ceja Nitrite Ql (U) Negative Normal NEGATIVE [facility] Comment on above: Performed By: #### C BC #### [facility] [address] [place] [address] Dr. Katrin Ceja pH (U) 7.5 [pH] Normal 5-9 [facility] Comment on above: Performed By: #### C BC #### [facility] [address] [place] [address] Dr. Katrin Ceja SPEC GRAVITY 1.010 Normal 1.005-<=1. 025 [facility] Comment on above: Performed By: #### C BC #### [facility] [address] [place] [address] Dr. Katrin Ceja UA PROTEIN Negative Normal NEGATIVE/ TRACE [facility] Comment on above: Performed By: #### C BC #### [facility] [address] [place] [address] Dr. Katrin Ceja UR MICRO IND INDICATED Normal [facility] Comment on above: Performed By: #### C BC #### [facility] [address] [place] [address] Dr. Katrin Ceja Urobilinogen Qn (U) 0.2 {Jeannie'U}/dL Normal 0.2 - 1. 0 [facility] Comment on above: Performed By: #### C BC #### [facility] [address] [place] [address] Dr. Katrin Ceja LIPASEon 09-18-2021 Lipase [Catalytic activity/Vol] 81.0 U/L Normal 23.0-300.0 [facility] Comment on above: Performed By: #### P REG #### [facility] [address] [place] [address] Dr. Katrin Ceja URon 09-18-2021 , QUAL Negative Normal NEGATIVE [facility] Comment on above: Performed By: #### C BC #### [facility] [address] [place] [address] Dr. Katrin Ceja PROF 14(COMP METB)on 022 Albumin [Mass/Vol] 3.2 g/dL Critically low 3.5-5.0 [facility] Comment on above: Performed By: #### P REG #### [facility] [address] [place] [address] Dr. Katrin Ceja Albumin/Globulin [Mass ratio] 0.8 {ratio} Normal [facility] Comment on above: Performed By: #### P REG #### [facility] [address] [place] [address] Dr. Katrin Ceja ALP [Catalytic activity/Vol] 216 U/L Critically high 38-126 [facility] Comment on above: Performed By: #### P REG #### [facility] [address] [place] [address] Dr. Katrin Ceja ALT [Catalytic activity/Vol] 109 U/L Critically high 9-52 [facility] Comment on above: Performed By: #### P REG #### [facility] [address] [address] [address] Katrin Ceja Anion gap [Moles/Vol] 10.5 mmol/L Normal [facility] Comment on above: Performed By: #### P REG #### [facility] [address] [address] [address] Katrin Ceja AST [Catalytic activity/Vol] 66 U/L Critically high 14-36 [facility] Comment on above: Performed By: #### P REG #### [facility] [address] [address] [address] Katrin Ceja Bilirubin [Mass/Vol] 0.2 mg/dL Normal 0.2-1.3 [facility] Comment on above: Performed By: #### P REG #### [facility] [address] [address] [address] Katrin Ceja Calcium [Mass/Vol] 8.3 mg/dL Critically low 8.4-10.2 [facility] Comment on above: Performed By: #### P REG #### [facility] [address] [address] [address] Katrin Ceja Chloride [Moles/Vol] 103 mmol/L Normal 98-107 [facility] Comment on above: Performed By: #### P REG #### [facility] [address] [address] [address] Katrin Ceja CO2 [Moles/Vol] 26.2 mmol/L Normal 22.0-30.0 [facility] Comment on above: Performed By: #### P REG #### [facility] [address] [address] [address] Katrin Ceja Creatinine [Mass/Vol] 0.81 mg/dL Normal 0.52-1.04 [facility] Comment on above: Performed By: #### P REG #### [facility] [address] [address] [address] Katrin Ceja EGFR-AF [place] >60 Normal >=60 [facility] Comment on above: Performed By: #### P REG #### [facility] [address] [address] [address] Katrin Ceja EGFR-NON AF [place] >60 Normal >=60 [facility] Comment on above: Performed By: #### P REG #### [facility] [address] [address] [address] Katrin Ceja Globulin (S) [Mass/Vol] 4.1 g/dL Normal [facility] Comment on above: Performed By: #### P REG #### [facility] [address] [address] [address] Katrin Ceja Glucose [Mass/Vol] 90 mg/dL Normal 74-106 [facility] Comment on above: Performed By: #### P REG #### [facility] [address] [address] [address] Katrin Ceja Potassium [Moles/Vol] 3.7 mmol/L Normal 3.4-5.0 [facility] Comment on above: Performed By: #### P REG #### [facility] [address] [address] [address] Katrin Ceja Protein [Mass/Vol] 7.3 g/dL Normal 6.1-8.2 [facility] Comment on above: Performed By: #### P REG #### [facility] [address] [place] [address] Dr. Katrin Ceja Sodium [Moles/Vol] 136 mmol/L Critically low 137-145 [facility] Comment on above: Performed By: #### P REG #### [facility] [address] [address] [address] Katrin Ceja Urea nitrogen [Mass/Vol] 5.0 mg/dL Critically low 7.0-17.0 [facility] Comment on above: Performed By: #### P REG #### [facility] [address] [place] [address] Dr. Katrin Ceja Urea nitrogen/Creatinine [Mass ratio] 6.2 mg/mg Normal [facility] Comment on above: Performed By: #### P REG #### [facility] [address] [place] [address] Dr. Katrin Ceja URINE MICROSCOPIC ONLYon BACTERIA NONE SEEN Normal NONE SEEN [facility] Comment on above: Performed By: #### C BC #### [facility] [address] [place] [address] Dr. Katrin Ceja Bacteria identified Cx Nom (U) NOT INDICATED Normal [facility] Comment on above: Performed By: #### C BC #### [facility] [address] [place] [address] Dr. Katrin Ceja CAST NONE SEEN Normal NONE SEEN [facility] Comment on above: Performed By: #### C BC #### [facility] [address] [place] [address] Dr. Katrin Ceja Crystals LM Nom (Urine sed) NONE SEEN Normal NONE SEEN [facility] Comment on above: Performed By: #### C BC #### [facility] [address] [place] [address] Dr. Katrin Ceja Epithelial cells LM Ql (Urine sed) FEW Abnormal NONE SEEN /RARE [facility] Comment on above: Performed By: #### C BC #### [facility] [address] [place] [address] Dr. Katrin Ceja MUCOUS NONE SEEN Normal NONE SEEN [facility] Comment on above: Performed By: #### C BC #### [facility] [address] [place] [address] Dr. Katrin Ceja RBC NONE SEEN Abnormal 0-2 [facility] Comment on above: Performed By: #### C BC #### [facility] [address] [place] [address] Dr. Katrin Ceja WBC NONE SEEN Normal NONE SEEN [facility] Comment on above: Performed By: #### C BC #### [facility] [address] [place] [address] Dr. Katrin Ceja XR ABD FLAT UP_PA [...] ISAIAH FAROOQ Date: 2021-09-18 02:00 Normal [facility] CBC AUTO DIFFon 07-18-2021 BASO # 0.0 103/ul Normal 0.0-0.1 [facility] Comment on above: Performed By: #### C BC #### [facility] [address] [address] [address] Katrin Ceja Basophils/100 WBC (Bld) 0.3 % Normal 0.2-2.0 [facility] Comment on above: Performed By: #### C BC #### [facility] [address] [place] [address] Dr. Katrin Ceja EO # 0.2 103/ul Normal 0.0-0.7 [facility] Comment on above: Performed By: #### C BC #### [facility] [address] [address] [address] Katrin Ceja Eosinophils/100 WBC (Bld) 1.7 % Normal 0.9-7.0 [facility] Comment on above: Performed By: #### C BC #### [facility] [address] [place] [address] Dr. Katrin Ceja Erythrocyte distribution width (RBC) [Ratio] 13.1 % Normal 11.0-15.0 [facility] Comment on above: Performed By: #### C BC #### [facility] [address] [place] [address] Dr. Katrin Ceja Hematocrit (Bld) [Volume fraction] 42.0 % Normal 36.0-48.0 [facility] Comment on above: Performed By: #### C BC #### [facility] [address] [place] [address] Dr. Katrin Ceja Hemoglobin (Bld) [Mass/Vol] 13.7 g/dL Normal 12.0-16.0 [facility] Comment on above: Performed By: #### C BC #### [facility] [address] [place] [address] Dr. Katrin Ceja IG # 0.07 10e3/ul Critically high 0.00-0.03 [facility] Comment on above: Performed By: #### C BC #### [facility] [address] [place] [address] Dr. Katrin Ceja IG % 0.6 % Critically high 0.0-0.5 [facility] Comment on above: Performed By: #### C BC #### [facility] [address] [place] [address] Dr. Katrin Ceja LYMPH # 2.9 103/ul Normal 1.2-3.8 [facility] Comment on above: Performed By: #### C BC #### [facility] [address] [place] [address] Dr. Katrin Ceja Lymphocytes/100 WBC (Bld) 27.1 % Normal 20.5-60.0 [facility] Comment on above: Performed By: #### C BC #### [facility] [address] [place] [address] Dr. Katrin Ceja MANUAL DIFF REQ NO Normal [facility] Comment on above: Performed By: #### C BC #### [facility] [address] [place] [address] Dr. Katrin Ceja MCH (RBC) [Entitic mass] 29.3 pg Normal 26.7-34.0 [facility] Comment on above: Performed By: #### C BC #### [facility] [address] [place] [address] Dr. Katrin Ceja MCHC (RBC) [Mass/Vol] 32.6 g/dL Normal 29.9-35.2 [facility] Comment on above: Performed By: #### C BC #### [facility] [address] [place] [address] Dr. Katrin Ceja MCV (RBC) [Entitic vol] 89.7 fL Normal 81.0-99.0 [facility] Comment on above: Performed By: #### C BC #### [facility] [address] [place] [address] Dr. Katrin Ceja MONO # 0.9 103/ul Critically high 0.3-0.8 [facility] Comment on above: Performed By: #### C BC #### [facility] [address] [address] [address] Katrin Ceja Monocytes/100 WBC (Bld) 8.2 % Normal 1.7-12.0 [facility] Comment on above: Performed By: #### C BC #### [facility] [address] [place] [address] Dr. Katrin Ceja NEUT # 6.7 103/ul Critically high 1.4-6.5 [facility] Comment on above: Performed By: #### C BC #### [facility] [address] [place] [address] Dr. Katrin Ceja Neutrophils/100 WBC (Bld) 62.1 % Normal 43.0-75.0 [facility] Comment on above: Performed By: #### C BC #### [facility] [address] [place] [address] Dr. Katrin Ceja Platelet mean volume (Bld) [Entitic vol] 9.7 fL Normal 9.5-13.5 [facility] Comment on above: Performed By: #### C BC #### [facility] [address] [place] [address] Dr. Katrin Ceja PLT 334 103/ul Normal 150-450 [facility] Comment on above: Performed By: #### C BC #### [facility] [address] [place] [address] Dr. Katrin Ceja RBC 4.68 106/ul Normal 4.20-5.40 [facility] Comment on above: Performed By: #### C BC #### [facility] [address] [place] [address] Dr. Katrin Ceja WBC 10.8 103/ul Normal 4.0-11.0 [facility] Comment on above: Performed By: #### C BC #### [facility] [address] [place] [address] Dr. Katrin Ceja GLYCOHEMOGLOBIN A1Con 2021 ADA RECOMMENDATION ADA THERAPEUTIC TARG ET 6.0 - 7.0 ACTION SUGGESTED > 7.0 Normal [facility] Comment on above: Performed By: #### C BC #### [facility] [address] [address] [address] Katrin Ceja Glucose [Mass/Vol] 105 mg/dL Normal [facility] Comment on above: Performed By: #### C BC #### [facility] [address] [place] [address] Dr. Katrin Ceja HbA1c (Bld) [Mass fraction] 5.3 % Normal <=6.0 [facility] Comment on above: Performed By: #### C BC #### [facility] [address] [place] [address] Dr. Katrin Ceja LIPID PROFILEon 07-18-2021 CHOL-HDL RATIO NORM SEE BELOW Normal [facility] Comment on above: Result Comment: 3.3 - 4.4 LOW RISK 4.4 - 7.1 AVERAGE RISK 7.1 - 11.0 MODERATE RISK >11.0 HIGH RISK Performed By: #### L IPID, CMP #### [facility] [address] [place] [address] Dr. Katrin Ceja Cholesterol [Mass/Vol] 302 mg/dL Critically high <=200 [facility] Comment on above: Performed By: #### L IPID, CMP #### [facility] [address] [place] [address] Dr. Katrin Ceja Cholesterol in HDL [Mass/Vol] 39 mg/dL Normal [facility] Comment on above: Performed By: #### L IPID, CMP #### [facility] [address] [address] [address] Katrin Ceja Cholesterol in LDL [Mass/Vol] 207.0 mg/dL Normal [facility] Comment on above: Performed By: #### L IPID, CMP #### [facility] [address] [place] [address] Dr. Katrin Ceja Cholesterol.total/Chol esterol in HDL [Mass ratio] 7.7 {ratio} Normal [facility] Comment on above: Performed By: #### L IPID, CMP #### [facility] [address] [address] [address] Katrin Ceja HDL NORMAL > or = 60 mg/dl - LO W CARDIOVASCULAR RISK <40 mg/dl - HIGH CARDIOVASCULAR RISK Normal [facility] Comment on above: Performed By: #### L IPID, CMP #### [facility] [address] [address] [address] Katrin Ceja LDL CALC NORMAL SEE BELOW Normal [facility] Comment on above: Result Comment: <100 mg/dl OPTIMAL 100 - 129 mg/dl NEAR OR ABOVE OPTIMAL 130 - 159 mg/dl BORDERLINE HIGH 160 - 189 mg/dl HIGH >190 mg/dl VERY HIGH Performed By: #### L IPID, CMP #### [facility] [address] [place] [address] Dr. Katrin Ceja Triglyceride [Mass/Vol] 280 mg/dL Critically high <=150 [facility] Comment on above: Performed By: #### L IPID, CMP #### [facility] [address] [place] [address] Dr. Katrin Ceja VLDL CALC 56.0 mg/dL Normal [facility] Comment on above: Performed By: #### L IPID, CMP #### [facility] [address] [place] [address] Dr. Katrin Ceja PROF 14(COMP METB)on 022 Albumin [Mass/Vol] 3.5 g/dL Normal 3.5-5.0 [facility] Comment on above: Performed By: #### L IPID, CMP #### [facility] [address] [place] [address] Dr. Katrin Ceja Albumin/Globulin [Mass ratio] 0.7 {ratio} Normal [facility] Comment on above: Performed By: #### L IPID, CMP #### [facility] [address] [place] [address] Dr. Katrin Ceja ALP [Catalytic activity/Vol] 291 U/L Critically high 38-126 [facility] Comment on above: Performed By: #### L IPID, CMP #### [facility] [address] [address] [address] Katrin Ceja ALT [Catalytic activity/Vol] 174 U/L Critically high 9-52 [facility] Comment on above: Performed By: #### L IPID, CMP #### [facility] [address] [address] [address] Katrin Ceja Anion gap [Moles/Vol] 15.3 mmol/L Normal [facility] Comment on above: Performed By: #### L IPID, CMP #### [facility] [address] [address] [address] Katrin Ceja AST [Catalytic activity/Vol] 97 U/L Critically high 14-36 [facility] Comment on above: Performed By: #### L IPID, CMP #### [facility] [address] [place] [address] Dr. Katrin Ceja Bilirubin [Mass/Vol] 0.4 mg/dL Normal 0.2-1.3 [facility] Comment on above: Performed By: #### L IPID, CMP #### [facility] [address] [address] [address] Katrin Ceja Calcium [Mass/Vol] 9.3 mg/dL Normal 8.4-10.2 [facility] Comment on above: Performed By: #### L IPID, CMP #### [facility] [address] [address] [address] Katrin Ceja Chloride [Moles/Vol] 99 mmol/L Normal 98-107 [facility] Comment on above: Performed By: #### L IPID, CMP #### [facility] [address] [address] [address] Katrin Ceja CO2 [Moles/Vol] 24.1 mmol/L Normal 22.0-30.0 [facility] Comment on above: Performed By: #### L IPID, CMP #### [facility] [address] [address] [address] Katrin Ceja Creatinine [Mass/Vol] 0.65 mg/dL Normal 0.52-1.04 [facility] Comment on above: Performed By: #### L IPID, CMP #### [facility] [address] [address] [address] Katrin Ceja EGFR-AF [place] >60 Normal >=60 [facility] Comment on above: Performed By: #### L IPID, CMP #### [facility] [address] [address] [address] Katrin Ceja EGFR-NON AF [place] >60 Normal >=60 [facility] Comment on above: Performed By: #### L IPID, CMP #### [facility] [address] [address] [address] Katrin Ceja Globulin (S) [Mass/Vol] 5.0 g/dL Normal [facility] Comment on above: Performed By: #### L IPID, CMP #### [facility] [address] [address] [address] Katrin Ceja Glucose [Mass/Vol] 86 mg/dL Normal 74-106 [facility] Comment on above: Performed By: #### L IPID, CMP #### [facility] [address] [address] [address] Katrin Ceja Potassium [Moles/Vol] 4.4 mmol/L Normal 3.4-5.0 [facility] Comment on above: Performed By: #### L IPID, CMP #### [facility] [address] [address] [address] Katrin Ceja Protein [Mass/Vol] 8.5 g/dL Critically high 6.1-8.2 [facility] Comment on above: Performed By: #### L IPID, CMP #### [facility] [address] [address] [address] Katrin Ceja Sodium [Moles/Vol] 134 mmol/L Critically low 137-145 [facility] Comment on above: Performed By: #### L IPID, CMP #### [facility] [address] [address] [address] Katrin Ceja Urea nitrogen [Mass/Vol] 8.0 mg/dL Normal 7.0-17.0 [facility] Comment on above: Performed By: #### L IPID, CMP #### [facility] [address] [place] [address] Dr. Katrin Ceja Urea nitrogen/Creatinine [Mass ratio] 12.3 mg/mg Normal [facility] Comment on above: Performed By: #### L IPID, CMP #### [facility] [address] [place] [address] Dr. Katrin Ceja AMYLASEon 05-01-2021 AMYL <30 Critically low 31-110 [facility] Comment on above: Performed By: #### P REG #### [facility] [address] [place] [address] Dr. Katrin Ceja CBC AUTO DIFFon 05-01-2021 BASO # 0.0 103/ul Normal 0.0-0.1 [facility] Comment on above: Performed By: #### L IPID, CMP #### [facility] [address] [place] [address] Dr. Katrin Ceja Basophils/100 WBC (Bld) 0.3 % Normal 0.2-2.0 [facility] Comment on above: Performed By: #### L IPID, CMP #### [facility] [address] [place] [address] Dr. Katrin Ceja EO # 0.1 103/ul Normal 0.0-0.7 [facility] Comment on above: Performed By: #### L IPID, CMP #### [facility] [address] [place] [address] Dr. Katrin Ceja Eosinophils/100 WBC (Bld) 0.4 % Critically low 0.9-7.0 [facility] Comment on above: Performed By: #### L IPID, CMP #### [facility] [address] [place] [address] Dr. Katrin Ceja Erythrocyte distribution width (RBC) [Ratio] 13.0 % Normal 11.0-15.0 [facility] Comment on above: Performed By: #### L IPID, CMP #### [facility] [address] [place] [address] Dr. Katrin Ceja Hematocrit (Bld) [Volume fraction] 37.7 % Normal 36.0-48.0 [facility] Comment on above: Performed By: #### L IPID, CMP #### [facility] [address] [place] [address] Dr. Katrin Ceja Hemoglobin (Bld) [Mass/Vol] 12.5 g/dL Normal 12.0-16.0 [facility] Comment on above: Performed By: #### L IPID, CMP #### [facility] [address] [place] [address] Dr. Katrin Ceja IG # 0.09 10e3/ul Critically high 0.00-0.03 [facility] Comment on above: Performed By: #### L IPID, CMP #### [facility] [address] [place] [address] Dr. Katrin Ceja IG % 0.6 % Critically high 0.0-0.5 [facility] Comment on above: Performed By: #### L IPID, CMP #### [facility] [address] [place] [address] Dr. Katrin Ceja LYMPH # 1.9 103/ul Normal 1.2-3.8 [facility] Comment on above: Performed By: #### L IPID, CMP #### [facility] [address] [place] [address] Dr. Katrin Ceja Lymphocytes/100 WBC (Bld) 12.1 % Critically low 20.5-60.0 [facility] Comment on above: Performed By: #### L IPID, CMP #### [facility] [address] [place] [address] Dr. Katrin Ceja MANUAL DIFF REQ NO Normal [facility] Comment on above: Performed By: #### L IPID, CMP #### [facility] [address] [place] [address] Dr. Katrin Ceja MCH (RBC) [Entitic mass] 28.8 pg Normal 26.7-34.0 [facility] Comment on above: Performed By: #### L IPID, CMP #### [facility] [address] [address] [address] Katrin Ceja MCHC (RBC) [Mass/Vol] 33.2 g/dL Normal 29.9-35.2 [facility] Comment on above: Performed By: #### L IPID, CMP #### [facility] [address] [place] [address] Dr. Katrin Ceja MCV (RBC) [Entitic vol] 86.9 fL Normal 81.0-99.0 [facility] Comment on above: Performed By: #### L IPID, CMP #### [facility] [address] [place] [address] Dr. Katrin Ceja MONO # 1.1 103/ul Critically high 0.3-0.8 [facility] Comment on above: Performed By: #### L IPID, CMP #### [facility] [address] [place] [address] Dr. Katrin Ceja Monocytes/100 WBC (Bld) 7.1 % Normal 1.7-12.0 [facility] Comment on above: Performed By: #### L IPID, CMP #### [facility] [address] [place] [address] Dr. Katrin Ceja NEUT # 12.3 103/ul Critically high 1.4-6.5 [facility] Comment on above: Performed By: #### L IPID, CMP #### [facility] [address] [place] [address] Dr. Katrin Ceja Neutrophils/100 WBC (Bld) 79.5 % Critically high 43.0-75.0 [facility] Comment on above: Performed By: #### L IPID, CMP #### [facility] [address] [place] [address] Dr. Katrin Ceja Platelet mean volume (Bld) [Entitic vol] 8.7 fL Critically low 9.5-13.5 [facility] Comment on above: Performed By: #### L IPID, CMP #### [facility] [address] [place] [address] Dr. Katrin Ceja PLT 329 103/ul Normal 150-450 [facility] Comment on above: Performed By: #### L IPID, CMP #### [facility] [address] [place], [place] [address] Dr. Katrin Ceja RBC 4.34 106/ul Normal 4.20-5.40 [facility] Comment on above: Performed By: #### L IPID, CMP #### [facility] [address] [place], [place] [address] Dr. Katrin Ceja WBC 15.5 103/ul Critically high 4.0-11.0 [facility] Comment on above: Performed By: #### L IPID, CMP #### [facility] [address] [place], [place] [address] ABD/PELV W CONon [...] by: HILDA RAHMAN Date: 2021-05-01 20:30 Normal [facility] LIPASEon 05-01-2021 Lipase [Catalytic activity/Vol] 64.0 U/L Normal 23.0-300.0 [facility] Comment on above: Performed By: #### P REG #### [facility] [address] [place] [address] Dr. Katrin Ceja LIVER PROFILEon 05-01-2021 Albumin [Mass/Vol] 3.3 g/dL Critically low 3.5-5.0 [facility] Comment on above: Performed By: #### L IPID, CMP #### [facility] [address] [place] [address] Dr. Katrin Ceja Albumin/Globulin [Mass ratio] 0.6 {ratio} Normal [facility] Comment on above: Performed By: #### L IPID, CMP #### [facility] [address] [place] [address] Dr. Katrin Ceja ALP [Catalytic activity/Vol] 412 U/L Critically high 38-126 [facility] Comment on above: Performed By: #### L IPID, CMP #### [facility] [address] [place] [address] Dr. Katrin Ceja ALT [Catalytic activity/Vol] 124 U/L Critically high 9-52 [facility] Comment on above: Performed By: #### L IPID, CMP #### [facility] [address] [place] [address] Dr. Katrin Ceja AST [Catalytic activity/Vol] 61 U/L Critically high 14-36 [facility] Comment on above: Performed By: #### L IPID, CMP #### [facility] [address] [address] [address] Katrin Ceja BILI, CONJUGATED 0.2 mg/dL Normal 0.0-0.3 [facility] Comment on above: Performed By: #### L IPID, CMP #### [facility] [address] [place] [address] Dr. Katrin Ceja Bilirubin [Mass/Vol] 0.4 mg/dL Normal 0.2-1.3 [facility] Comment on above: Performed By: #### L IPID, CMP #### [facility] [address] [place] [address] Dr. Katrin Ceja Globulin (S) [Mass/Vol] 5.1 g/dL Normal [facility] Comment on above: Performed By: #### L IPID, CMP #### [facility] [address] [place] [address] Dr. Katrin Ceja Protein [Mass/Vol] 8.4 g/dL Critically high 6.1-8.2 [facility] Comment on above: Performed By: #### L IPID, CMP #### [facility] [address] [place] [address] Dr. Katrin Ceja PREG HCG QUALon 05-01-2021 , QUAL Negative Normal NEGATIVE [facility] Comment on above: Performed By: #### P REG #### [facility] [address] [place] [address] Dr. Katrin Ceja PROF CHEM 8 (BAS METB)on Anion gap [Moles/Vol] 17.1 mmol/L Normal [facility] Comment on above: Performed By: #### P REG #### [facility] [address] [place] [address] Dr. Katrin Ceja Calcium [Mass/Vol] 8.9 mg/dL Normal 8.4-10.2 [facility] Comment on above: Performed By: #### P REG #### [facility] [address] [place] [address] Dr. Katrin Ceja Chloride [Moles/Vol] 100 mmol/L Normal 98-107 [facility] Comment on above: Performed By: #### P REG #### [facility] [address] [address] [address] Katrin Ceja CO2 [Moles/Vol] 21.1 mmol/L Critically low 22.0-30.0 [facility] Comment on above: Performed By: #### P REG #### [facility] [address] [place] [address] Dr. Katrin Ceja Creatinine [Mass/Vol] 0.78 mg/dL Normal 0.52-1.04 [facility] Comment on above: Performed By: #### P REG #### [facility] [address] [place] [address] Dr. Katrin Ceja EGFR-AF [place] >60 Normal >=60 [facility] Comment on above: Performed By: #### P REG #### [facility] [address] [place] [address] Dr. Katrin Ceja EGFR-NON AF [place] >60 Normal >=60 [facility] Comment on above: Performed By: #### P REG #### [facility] [address] [address] [address] Katrin Ceja Glucose [Mass/Vol] 97 mg/dL Normal 74-106 [facility] Comment on above: Performed By: #### P REG #### [facility] [address] [place] [address] Dr. Katrin Ceja Potassium [Moles/Vol] 4.2 mmol/L Normal 3.4-5.0 [facility] Comment on above: Performed By: #### P REG #### [facility] [address] [place] [address] Dr. Katrin Ceja Sodium [Moles/Vol] 134 mmol/L Critically low 137-145 [facility] Comment on above: Performed By: #### P REG #### [facility] [address] [place] [address] Dr. Katrin Ceja Urea nitrogen [Mass/Vol] 6.0 mg/dL Critically low 7.0-17.0 [facility] Comment on above: Performed By: #### P REG #### [facility] [address] [place] [address] Dr. Katrin Ceja Urea nitrogen/Creatinine [Mass ratio] 7.7 mg/mg Normal [facility] Comment on above: Performed By: #### P REG #### [facility] [address] [place] [address] Dr. Katrin Ceja CBC AUTO DIFFon 04-29-2021 BASO # 0.1 103/ul Normal 0.0-0.1 [facility] Comment on above: Performed By: #### L IPID, CMP #### [facility] [address] [place] [address] Dr. Katrin Ceja Basophils/100 WBC (Bld) 0.4 % Normal 0.2-2.0 [facility] Comment on above: Performed By: #### L IPID, CMP #### [facility] [address] [place] [address] Dr. Katrin Ceja EO # 0.2 103/ul Normal 0.0-0.7 [facility] Comment on above: Performed By: #### L IPID, CMP #### [facility] [address] [place] [address] Dr. Katrin Ceja Eosinophils/100 WBC (Bld) 1.7 % Normal 0.9-7.0 [facility] Comment on above: Performed By: #### L IPID, CMP #### [facility] [address] [place] [address] Dr. Katrin Ceja Erythrocyte distribution width (RBC) [Ratio] 12.9 % Normal 11.0-15.0 [facility] Comment on above: Performed By: #### L IPID, CMP #### [facility] [address] [place] [address] Dr. Katrin Ceja Hematocrit (Bld) [Volume fraction] 39.0 % Normal 36.0-48.0 [facility] Comment on above: Performed By: #### L IPID, CMP #### [facility] [address] [place] [address] Dr. Katrin Ceja Hemoglobin (Bld) [Mass/Vol] 12.9 g/dL Normal 12.0-16.0 [facility] Comment on above: Performed By: #### L IPID, CMP #### [facility] [address] [address] [address] Katrin Ceja IG # 0.08 10e3/ul Critically high 0.00-0.03 [facility] Comment on above: Performed By: #### L IPID, CMP #### [facility] [address] [address] [address] Katrin Ceja IG % 0.6 % Critically high 0.0-0.5 [facility] Comment on above: Performed By: #### L IPID, CMP #### [facility] [address] [place] [address] Dr. Katrin Ceja LYMPH # 3.2 103/ul Normal 1.2-3.8 [facility] Comment on above: Performed By: #### L IPID, CMP #### [facility] [address] [place] [address] Dr. Katrin Ceja Lymphocytes/100 WBC (Bld) 24.4 % Normal 20.5-60.0 [facility] Comment on above: Performed By: #### L IPID, CMP #### [facility] [address] [place] [address] Dr. Katrin Ceja MANUAL DIFF REQ NO Normal [facility] Comment on above: Performed By: #### L IPID, CMP #### [facility] [address] [address] [address] Katrin Ceja MCH (RBC) [Entitic mass] 29.1 pg Normal 26.7-34.0 [facility] Comment on above: Performed By: #### L IPID, CMP #### [facility] [address] [place] [address] Dr. Katrin Ceja MCHC (RBC) [Mass/Vol] 33.1 g/dL Normal 29.9-35.2 [facility] Comment on above: Performed By: #### L IPID, CMP #### [facility] [address] [place] [address] Dr. Katrin Ceja MCV (RBC) [Entitic vol] 88.0 fL Normal 81.0-99.0 [facility] Comment on above: Performed By: #### L IPID, CMP #### [facility] [address] [place] [address] Dr. Katrin Ceja MONO # 1.2 103/ul Critically high 0.3-0.8 [facility] Comment on above: Performed By: #### L IPID, CMP #### [facility] [address] [place] [address] Dr. Katrin Ceja Monocytes/100 WBC (Bld) 9.2 % Normal 1.7-12.0 [facility] Comment on above: Performed By: #### L IPID, CMP #### [facility] [address] [place] [address] Dr. Katrin Ceja NEUT # 8.3 103/ul Critically high 1.4-6.5 [facility] Comment on above: Performed By: #### L IPID, CMP #### [facility] [address] [place] [address] Dr. Katrin Ceja Neutrophils/100 WBC (Bld) 63.7 % Normal 43.0-75.0 [facility] Comment on above: Performed By: #### L IPID, CMP #### [facility] [address] [place] [address] Dr. Katrin Ceja Platelet mean volume (Bld) [Entitic vol] 9.2 fL Critically low 9.5-13.5 [facility] Comment on above: Performed By: #### L IPID, CMP #### [facility] [address] [place] [address] Dr. Katrin Ceja PLT 384 103/ul Normal 150-450 [facility] Comment on above: Performed By: #### L IPID, CMP #### [facility] [address] [place] [address] Dr. Katrin Ceja RBC 4.43 106/ul Normal 4.20-5.40 [facility] Comment on above: Performed By: #### L IPID, CMP #### [facility] [address] [place], [place] [address] Dr. Katrin Ceja WBC 13.1 103/ul Critically high 4.0-11.0 [facility] Comment on above: Performed By: #### L IPID, CMP #### [facility] [address] [place], [place] [address] ABD/PELV W CONon [...] by: Lorenzo LAN Date: 2021-04-29 02:49 Normal [facility] LACTATE/LACTIC ACIDon 2020 Lactate [Moles/Vol] 1.2 mmol/L Normal 0.7-2.0 [facility] Comment on above: Performed By: #### C BC #### [facility] [address] [place] [address] Dr. Katrin Ceja PROF 14(COMP METB)on 021 Albumin [Mass/Vol] 3.4 g/dL Critically low 3.5-5.0 [facility] Comment on above: Performed By: #### C BC #### [facility] [address] [place] [address] Dr. Katrin Ceja Albumin/Globulin [Mass ratio] 0.7 {ratio} Normal [facility] Comment on above: Performed By: #### C BC #### [facility] [address] [place] [address] Dr. Katrin Ceja ALP [Catalytic activity/Vol] 359 U/L Critically high 38-126 [facility] Comment on above: Performed By: #### C BC #### [facility] [address] [place] [address] Dr. Katrin Ceja ALT [Catalytic activity/Vol] 193 U/L Critically high 9-52 [facility] Comment on above: Performed By: #### C BC #### [facility] [address] [place] [address] Dr. Katrin Ceja Anion gap [Moles/Vol] 13.3 mmol/L Normal [facility] Comment on above: Performed By: #### C BC #### [facility] [address] [place], [place] [address] Dr. Katrin Ceja AST [Catalytic activity/Vol] 115 U/L Critically high 14-36 [facility] Comment on above: Performed By: #### C BC #### [facility] [address] [place] [address] Dr. Katrin Ceja Bilirubin [Mass/Vol] 0.5 mg/dL Normal 0.2-1.3 [facility] Comment on above: Performed By: #### C BC #### [facility] [address] [place] [address] Dr. Katrin Ceja Calcium [Mass/Vol] 9.5 mg/dL Normal 8.4-10.2 [facility] Comment on above: Performed By: #### C BC #### [facility] [address] [address] [address] Katrin Ceja Chloride [Moles/Vol] 101 mmol/L Normal 98-107 [facility] Comment on above: Performed By: #### C BC #### [facility] [address] [place] [address] Dr. Katrin Ceja CO2 [Moles/Vol] 23.7 mmol/L Normal 22.0-30.0 [facility] Comment on above: Performed By: #### C BC #### [facility] [address] [place] [address] Dr. Katrin Ceja Creatinine [Mass/Vol] 0.83 mg/dL Normal 0.52-1.04 [facility] Comment on above: Performed By: #### C BC #### [facility] [address] [place] [address] Dr. Katrin Ceja EGFR-AF SOUTH KOREAN >60 Normal >=60 [facility] Comment on above: Performed By: #### C BC #### [facility] [address] [place] [address] Dr. Katrin Ceja EGFR-NON AF [place]OU[place]OREAN >60 Normal >=60 [facility] Comment on above: Performed By: #### C BC #### [facility] [address] [place] [address] Dr. Katrin Ceja Globulin (S) [Mass/Vol] 5.1 g/dL Normal [facility] Comment on above: Performed By: #### C BC #### [facility] [address] [place] [address] Dr. Katrin Ceja Glucose [Mass/Vol] 102 mg/dL Normal 74-106 [facility] Comment on above: Performed By: #### C BC #### [facility] [address] [place], [place] [address] Dr. Katrin Ceja Potassium [Moles/Vol] 4.0 mmol/L Normal 3.4-5.0 [facility] Comment on above: Performed By: #### C BC #### [facility] [address] [place], [place] [address] Dr. Katrin Ceja Protein [Mass/Vol] 8.5 g/dL Critically high 6.1-8.2 [facility] Comment on above: Performed By: #### C BC #### [facility] [address] [address] Katrin Ceja Sodium [Moles/Vol] 134 mmol/L Critically low 137-145 [facility] Comment on above: Performed By: #### C BC #### [facility] [address] [address] [address] Katrin Ceja Urea nitrogen [Mass/Vol] 6.0 mg/dL Critically low 7.0-17.0 [facility] Comment on above: Performed By: #### C BC #### [facility] [id number] Katrin Ceja Urea nitrogen/Creatinine [Mass ratio] 7.2 mg/mg Normal [facility] Comment on above: Performed By: #### C BC #### [facility] [address] [place], [place] [address] Dr. Katrin Ceja XR CHEST 1 Von [...] by: HILDA GU Date: 2021-04-28 23:45 Normal [facility] Acetaminophen (Tylenol) Leve kit 03-22-2019 Acetaminophen [Mass/Vol] <10 Normal 10.0-30.0 [facility] Comment on above: Performed By: #### 1 4581-3, 92054-0, 75847-9, 90705-8m8, 32298-3, 64110-5 #### [address] [place], [place] Alcohol (Ethanol) Levelon Ethanol [Mass/Vol] mg/dL Normal 0.00-0.00 [facility] Comment on above: Performed By: #### 1 4581-3, 03964-3, 23883-6, 91762-1p7, 29534-1, 30314-3 #### [address] CBC with Differentialon Basophils (Bld) [#/Vol] 0.10 thou/mcL Normal 0.00-0.20 [facility] Comment on above: Performed By: #### 5 7021-8 #### [address] Basophils/100 WBC (Bld) 0.7 % Normal 0.0-2.0 [facility] Comment on above: Performed By: #### 5 7021-8 #### [address] Eosinophils (Bld) [#/Vol] 0.40 thou/mcL Normal 0.00-0.70 [facility] Comment on above: Performed By: #### 5 7021-8 #### [address] Eosinophils/100 WBC (Bld) 3.7 % Normal 0.0-7.0 [facility] Comment on above: Performed By: #### 5 7021-8 #### [address] Erythrocyte distribution width (RBC) [Entitic vol] 12.6 % Normal 11.0-14.8 [facility] Comment on above: Performed By: #### 5 7021-8 #### [address] Hematocrit (Bld) [Volume fraction] 38.5 % Normal 35.0-45.0 [facility] Comment on above: Performed By: #### 5 7021-8 #### [address] Hemoglobin (Bld) [Mass/Vol] 13.3 g/dL Normal 12.0-16.0 [facility] Comment on above: Performed By: #### 7021-8 #### [address] Lymphocytes (Bld) [#/Vol] 3.10 thou/mcL Normal 1.00-4.80 [facility] Comment on above: Performed By: #### 70-8 #### [address] Lymphocytes/100 WBC (Bld) 30.1 % Normal 22.0-44.0 [facility] Comment on above: Performed By: #### 7021-8 #### [address] MCH (RBC) [Entitic mass] 30.8 Picograms Normal 27.0-34.0 [facility] Comment on above: Performed By: #### 7021-8 #### [address] MCHC (RBC) [Mass/Vol] 34.7 g/dL Normal 32.0-36.0 [facility] Comment on above: Performed By: #### 7021-8 #### [address] MCV (RBC) [Entitic vol] 88.8 fL Normal 80.0-97.0 [facility] Comment on above: Performed By: #### 7021-8 #### [address] Monocytes (Bld) [#/Vol] 1.10 thou/mcL High 0.00-0.90 [facility] Comment on above: Performed By: #### 5 7021-8 #### [facility] [address] [place], [place] Monocytes/100 WBC (Bld) 10.4 % Normal 0.0-12.0 [facility] Comment on above: Performed By: #### 5 7021-8 #### [facility] [address] [place], [place] Neutrophils (Bld) [#/Vol] 5.60 thou/mcL Normal 1.80-7.70 [facility] Comment on above: Performed By: #### 5 7021-8 #### [facility] [address] [place], [place] Neutrophils/100 WBC (Bld) 55.1 % Normal 40.0-70.0 [facility] Comment on above: Performed By: #### 5 7021-8 #### [facility] [address] [place], [place] Platelet mean volume (Bld) [Entitic vol] 7.5 fL Normal 6.2-12.1 [facility] Comment on above: Performed By: #### 5 7021-8 #### [facility] [address] [place], [place] Platelets (Bld) [#/Vol] 280 thou/mcL Normal 142-424 [facility] Comment on above: Performed By: #### 5 7021-8 #### [facility] [address] [place], [place] RBC (Bld) [#/Vol] 4.33 million/mcL Normal 3.80-5.10 [facility] Comment on above: Performed By: #### 5 7021-8 #### [facility] [address] [place], [place] WBC (Bld) [#/Vol] 10.2 thou/mcL Normal 4.6-10.2 [facility] Comment on above: Performed By: #### 5 7021-8 #### [facility] [address] [place], [place] Comprehensive Metabolic Pane kit 03-22-2019 Albumin [Mass/Vol] 4.2 g/dL Normal 3.5-4.8 [facility] Comment on above: Performed By: #### 1 4581-3, 87884-1, 66442-0, 04270-8q1, 40942-6, 49294-3 #### [facility] [address] [place], [place] ALP [Catalytic activity/Vol] 96 Units/L High 32-91 [facility] Comment on above: Performed By: #### 1 4581-3, 51195-0, 62860-0, 80210-2u9, 20152-9, 82075-7 #### [facility] [address] [place], [place] ALT [Catalytic activity/Vol] 25 Units/L Normal 14-63 [facility] Comment on above: Performed By: #### 1 4581-3, 89321-4, 81147-0, 55373-5g1, 61016-7, 30371-1 #### [facility] [address] [place], [place] Anion gap [Moles/Vol] 9.0 mmol/L Normal 6.0-18.0 [facility] Comment on above: Performed By: #### 1 4581-3, 46524-7, 01639-6, 50986-7c8, 49950-7, 18060-7 #### [facility] [address] [place], [place] AST [Catalytic activity/Vol] 24 Units/L Normal 15-41 [facility] Comment on above: Performed By: #### 1 4581-3, 84243-8, 07166-9, 93201-3j2, 28305-7, 82584-5 #### [facility] [address] [place], [place] Bilirubin [Mass/Vol] 0.5 mg/dL Normal 0.3-1.2 [facility] Comment on above: Performed By: #### 1 4581-3, 40880-2, 24643-2, 10862-8n2, 97478-3, 75670-5 #### [facility] [address] [place], [place] Calcium [Mass/Vol] 8.9 mg/dL Normal 8.9-10.3 [facility] Comment on above: Performed By: #### 1 4581-3, 80977-4, 25546-4, 20817-7r8, 67103-1, 19414-9 #### [facility] [address] [place], [place] Chloride [Moles/Vol] 107 mmol/L Normal 98-107 [facility] Comment on above: Performed By: #### 1 4581-3, 28197-4, 97530-2, 84892-6s9, 60902-6, 70038-8 #### [facility] [address] [place], [place] CO2 [Moles/Vol] 23 mmol/L Normal 22-32 [facility] Comment on above: Performed By: #### 1 4581-3, 59264-3, 95687-2, 88701-4x6, 63010-1, 96561-1 #### [facility] [address] [place], [place] Creatinine [Mass/Vol] 0.68 mg/dL Normal 0.60-1.30 [facility] Comment on above: Performed By: #### 1 4581-3, 26527-2, 24269-0, 33286-6p3, 56367-6, 78275-6 #### [facility] [address] [place], [place] Glucose [Mass/Vol] 90 mg/dL Normal 70-99 [facility] Comment on above: Result Comment: U pdated ADA Reference Range A normal fasting glucose concentration is less than 100 mg/dL. An impaired fasting glucose concentration is 100-125 mg/dL. A provisional diagnosis of diabetes mellitus can be made when a fasting glucose concentration is greater than 125 mg/dL. Performed By: #### 1 4581-3, 47920-8, 14876-5, 38421-7n9, 05209-6, 11387-2 #### [facility] [address] [place], [place] Potassium [Moles/Vol] 3.4 mmol/L Low 3.6-5.1 [facility] Comment on above: Performed By: #### 1 4581-3, 85986-3, 91572-4, 53693-2x3, 39074-1, 24826-8 #### [facility] [address] [place], [place] Protein [Mass/Vol] 7.4 g/dL Normal 6.1-7.9 [facility] Comment on above: Performed By: #### 1 4581-3, 80938-9, 99574-1, 83010-4f6, 81309-8, 32796-1 #### [facility] [address] [place], [place] Sodium [Moles/Vol] 139 mmol/L Normal 136-145 [facility] Comment on above: Performed By: #### 1 4581-3, 73318-4, 59975-4, 21760-2g0, 28021-4, 61243-8 #### [facility] [address] [place], [place] Urea nitrogen (BldV) [Mass/Vol] 17 mg/dL Normal 8-20 [facility] Comment on above: Performed By: #### 1 4581-3, 71578-2, 70727-4, 07378-9m7, 28897-4, 95155-0 #### [facility] [address] [place], [place] Drug Abuse Screen 8 Urineon 03-22-2019 Barbiturates Screen Ql (U) Negative Normal [facility] Comment on above: Performed By: #### 1 2286-1 #### [facility] [address] [place], [place] Amphetamines Ql (U) Positive Abnormal [facility] Comment on above: Result Comment: Conf irmatory testing available upon request. Performed By: #### 1 2286-1 #### [facility] [address] [place], [place] Benzodiazepines cutoff Screen (U) [Mass/Vol] Negative Normal [facility] Comment on above: Performed By: #### 1 2286-1 #### [facility] [address] [place], [place] Cocaine Ql (U) Positive Abnormal [facility] Comment on above: Result Comment: Conf irmatory testing available upon request. Performed By: #### 1 2286-1 #### [facility] [address] [place], [place] Interpretation and review of laboratory results Negative Normal [facility] Comment on above: Performed By: #### 1 2286-1 #### [facility] [address] [place], [place] Methadone Screen Ql (U) Negative Normal NEGATIVE-N EGATIVE [facility] Comment on above: Performed By: #### 1 2286-1 #### [facility] [address] [place], [place] Opiates Screen Ql (U) Negative Normal [facility] Comment on above: Result Comment: INTE RPRETATION [...] ONLY. Performed By: #### 1 2286-1 #### [facility] [address] [place], [place] Tetrahydrocannabinol Screen Ql (U) Positive Abnormal [facility] Comment on above: Result Comment: Conf irmatory testing available upon request. Performed By: #### 1 2286-1 #### [facility] [address] [place], [place] ED Pat Eduon 03-22-2019 ED Pat Edu [facility] [address] [place], [place] [address] Emergency Department Discharge Instructions JENNIFER AGUILLON , Please provide this information to your Primary Care/Specialist Name : JENNIFER AGUILLON Current Date : 03/22/2019 19:32:22 : 1995 Primary Care Physician : Physician, Radha PCP Diagnosis: Follow-Up Instructions: JENNIFER AGUILLON has [...] Servicios de Emergencia Name JENNIFER AGUILLON MRN ([facility])-[id number] PLEASE READ THE FOLLOWING REGARDING YOUR MEDICATIONS [...] doses are changed, or new medications (including vnez-tjr-xcwwoqt products) are added. If you have any [...] UNTIL YOU TALK TO YOUR DOCTOR None [facility] [address] [place], [place] [address] Emergency Department Discharge Instructions Name: JENNIFER AGUILLON Current Date: 03/22/2019 19:32:22 : 1995 Primary Physician: Physician, No PCP We would like to thank you for choosing [facility] for your emergency medical needs. We [...] health of those around you. [facility] offers many resources to help with smoking cessation. Call the [place] Tobacco Quit Line at 0-667-FCWONOW ( ). High blood pressure: Your screening [...] deadly infections. Discuss this with your child's chainstitch tunnel elastic operator, or Public Health Department. Your family practice doctor can determine if you need pneumonia or flu vaccine. The [facility] Department can be reached at . Substance Abuse Program: Concerns with addiction to alcohol, benzodiazepines (Ativan or Xanax) and Opiates (Heroin, Percocet, OxyContin, Methadone or Fentanyl)? [facility] offers an inpatient Substance Abuse Program to help treat the symptoms associated with medical detoxification of addictive substances. The new program offers care for non- adults (18 and older) looking to break the chain to addictive chemicals. The Substance Abuse Program is a voluntary inpatient admission and it starts with a pre-screening phone call to a social welfare clerk. During the call, goals and objectives for recovery and how the patient will transition to outpatient care will be established. Please call [phone] to get help today. Domestic Violence: If you are a victim of domestic violence (physical, verbal, or emotional), you are not alone. Discuss this with your physician or a friend and call the [place] Domestic Violence Hotline or [place] Domestic Violence Hotline for assistance and support. [...] physician, call the Physician Referral Line at [phone] 281-UWGS (8179). Suicide Hotline: Your mental and emotional well-being is important. If you are in a mental health crisis or are having thoughts of suicide, please call the [facility] suicide hotline, anytime day or night, at 3-435-957-QVTE (6187). Community Furnace Stock Inspector: You may be contacted by your local fire department for a follow up visit from a community siebel administrator. The community siebel administrator can help with a home safety check; follow up care, and general home care management. Pharmacy Information: Below is a list of 24 hour pharmacies that we are aware of. We suggest that you call the specific pharmacy for their hours before traveling to a location. Hours may vary on holidays. [facility] [address] [place], [place] [phone] [address] [place], [place] [address] [phone] [address] [place], [place] [address] [phone] [address], [place] [phone] [address] [place], [place] [phone] [address], [place] [phone] [place] [phone] Take all medications as directed. If you need prescription assistance, contact the following agencies: ?? Partnership for Prescription Assistance at or www.pparx.org ?? [place] at or www.[place]estrx.org ?? www.GoodRx.com is a site with many valuable coupons Patient Education Materials JENNIFER AGUILLON has been given the following patient education materials: <><><><><><><><><><><><>< ><><><><><><><><><><><><> <> Patient Visit Summary Signature JENNIFER AGUILLON has been given the following list of patient education materials, prescriptions and follow-up instructions: I PAL JENNIFER Benjamin, have received the above patient education materials/instructions and have verbalized understanding: Date Time Patient Signature Date Time Provider Signature Normal [facility] GFRaaon 03-22-2019 GFR/1.73 sq M predicted among blacks MDRD (S/P/Bld) [Vol rate/Area] mL/min/{1.73_m2} Normal [facility] Comment on above: Result Comment: The MDRD equation has not been validated for those over 70 years, women, patients with serious co-morbid conditions, or with extremes of body size, muscle mass of nutritional status. Performed By: #### 1 4581-3, 72921-6, 18680-4, 40481-9w6, 06215-1, [address]23[address]-7 #### [address] GFRbbon 03-22-2019 GFR/1.73 sq M predicted among non-blacks MDRD (S/P/Bld) [Vol rate/Area] mL/min/{1.73_m2} Normal [facility] Comment on above: Performed By: #### 1 4581-3, 87667-5, 32926-8, 28919-5z1, 64814-8, 38169-2 #### [facility] [address], [place] Test Urineon 03-22 HCG ( test) Ql (U) Negative Normal [facility] Comment on above: Performed By: #### 2 106-3 #### [facility], [address], [place] Salicylate Levelon 9 Salicylates [Mass/Vol] mg/dL Normal 2.8-30.0 [place] Comment on above: Performed By: #### 1 4581-3, 51713-9, 33076-4, 91037-0i3, 93619-5, 82475-3 #### [facility] [address], [place] Medication Managementon 10-0 Medication Management [id number]#[id number] F Normal [facility] ED Clinical Summaryon 2017 ED Clinical Summary [facility] - Emergency [address] [place] [address] ed Clinical SummaryPERSON INFORMATIONName: JENNIFER AGUILLON Age: 22 Years Sex: FEMALEDOB: [birth year] MRN: Acct#:Visit Reason: Dental pain; Dental pain; DENTAL PAIN Arrival: 04/11/18 20:21:00 Discharge: 04/11/18 20:55:00LOS: 000 00:34 Check In: 04/11/18 20:21:00 Checkout:04/11/18 20:55:00Address:[address] [facility] [address]NBK: TAI WATTS INFORMATIONProvider Role Assigned UnassAlistair Henderson [...] 04/11/18 20:29:00.Dental caries, dental painHistory of Present Evnphkg90-gkmv-kmc white female presents to the emergency room [...] her poor dental state..Impression and PlanDiagnosisDental caries (JTL48-FZ K02.9, Discharge, Medical)Pain, dental (YPF65-MT K08.89, Discharge, Medical)PlanCondition: Improved, Stable.Disposition: Discharged: to home.Prescriptions: Launch prescriptionsPharmacy:tra MADol 50 mg oral tablet (Prescribe): 50 mg = 1 tab(s), PO, q4hr, PRN: as needed for pain, 12 tab(s), 0 Refill(s)amoxicillin 500 mg oral capsule (Prescribe): 1,000 mg = 2 cap(s), PO, BID, 40 cap(s), 0 Refill(s).Patient was given the following educational materials: Dental Pain, Eutl-lc-Sokm, Dental Caries, Adult, Ajyx-fk-Syfs, Dental Caries, Adult, Xchz-ys-Vsow, Dental Pain, Ppza-al-Yttr.Follow up with: SOLOMON WATTS Within 3 to 5 days.Counseled: Patient, Regarding diagnosis, Regarding treatment plan, Regarding prescription, Patient indicated understanding of instructions.DISCHARGE INFORMATION:Discharge Disposition: HomeDischarge Location: HomePATIENT EDUCATION INFORMATIONInstructions: Dental Caries, Adult, Xewp-qi-Jijs; Dental Pain, Vaux-gw-GancJhhaas-Up:Wit h: Address: When:SOLOMON WATTS [facility] [place] [address] Business (1) Within 3 to 5 daysDIAGNOSIS:Dental caries; Dental pain; Pain, dentalPatient Understands: Yes - Patient/family/caregiver verbalizes understanding of instructions givenComment: Normal [facility] ED Note - Physicianon 2017 ED Note - Physician Patient: DOMINIC AGUILLON : 22 years Sex: FEMALE : [birth year]Associated Diagnoses: Dental caries; Pain, dentalAuthor: Alistair Max MDBasikeyla InformationTime seen: Date & time 04/11/18 20:29:00.Dental caries, dental painHistory of Present Neiorka99-bvgc-ndw white female presents to the emergency room [...] her poor dental state..Impression and PlanDiagnosisDental caries (DOT80-AC K02.9, Discharge, Medical)Pain, dental (MHB40-NO K08.89, Discharge, Medical)PlanCondition: Improved, Stable.Disposition: Discharged: to home.Prescriptions: Launch prescriptionsPharmacy:tra MADol 50 mg oral tablet (Prescribe): 50 mg = 1 tab(s), PO, q4hr, PRN: as needed for pain, 12 tab(s), 0 Refill(s)amoxicillin 500 mg oral capsule (Prescribe): 1,000 mg = 2 cap(s), PO, BID, 40 cap(s), 0 Refill(s).Patient was given the following educational materials: Dental Pain, Fwgd-sn-Sbpw, Dental Caries, Adult, Ilsb-np-Rcpz, Dental Caries, Adult, Ptyk-fd-Fqot, Dental Pain, Geia-mg-Zltz.Follow up with: SOLOMON WATTS Within 3 to 5 days.Counseled: Patient, Regarding diagnosis, Regarding treatment plan, Regarding prescription, Patient indicated understanding of instructions.[Electronica lly Signed on: 04/11/2018 20:42 EDT] Alistair Salomon MD[Verified on: 04/11/2018 20:42 EDT] Alistiar Salomon MD [facility] ED Patient Education Noteon 04-11-2018 ED [...] mouth and teeth. This keeps them healthy.? [place] your teeth 2 times a day. Use toothpaste with fluoride in it.? Floss your teeth once a day.? If your dentist prescribed an antibiotic medicine to treat an infection, take it as told. Do not stop taking the antibiotic even if your condition gets better.? Keep all follow-up visits as told by your dentist. This is important. This includes all cleanings.Preventing dental caries? [place] your teeth every morning and night. Use [...] Reviewed: 03/17/2017[employer] Patient Education ? 2017 [employer]Dental PainDental pain may be caused by [...] Reviewed: 06/27/2015[employer] Patient Education ? 2018 [employer] Normal [facility] ED Patient Summaryon 018 ED Patient Summary [facility] - Emergency [address] [place] [address] pATIENT DISCHARGE INSTRUCTIONSPatient InformationName: JENNIFER AGUILLON Age: 22 YearsDate of : [birth year]MRN: [id number] Visit: Dental pain; Dental pain; DENTAL PAINArrival Time: 04/11/18 20:21:00[facility]: [facility] Maryam WATTS Physician: Alistair Max MDComment:Visit Diagnosis:Diagnoses This Visit Dental caries (K02.9) Dental pain (K08.8) Dental pain ([id number]) Dental pain ([id number]) Pain, dental (K08.89)If you received any narcotics, [...] sign any legal documentsWith: Address: When:SOLOMON WATTS [address] [place] [address] Business (1) Within 3 to 5 daysMedication Information:The exam and treatment you received today in the [facility] Emergency Department were for an urgent problem and are not intended as complete care. It is important for you to follow up with a doctor, nurse practitioner, or physician?s first assistant manager for ongoing care. If your [...] of medications post discharge. Please inform your velvet weaver/provider of your visit and for further instruction [...] mouth and teeth. This keeps them healthy.? [place] your teeth 2 times a day. Use toothpaste with fluoride in it.? Floss your teeth once a day.? If your dentist prescribed an antibiotic medicine to treat an infection, take it as told. Do not stop taking the antibiotic even if your condition gets better.? Keep all follow-up visits as told by your dentist. This is important. This includes all cleanings.Preventing dental caries? [place] your teeth every morning and night. Use [...] Reviewed: 03/17/2017[employer] Patient Education ? 2017 [employer].Dental PainDental pain may be caused by many [...] Reviewed: 06/27/2015[employer] Patient Education ? 2018 [employer]. Viruses or BacteriaWhat?s got you sick?Antibiotics only [...] Disease Control and Prevention March 2014 Normal [facility] Vital Signs Date Time Vital Sign Value Performing Clinician Facility 05-28-2024 14:27-0500 Body height 167.6 cm Radha Wilcoxton DO Work Phone: [facility] 05-28-2024 14:27-0500 Body mass index (BMI) [Ratio] 34.49 kg/m2 Radha Wilcoxton DO Work Phone: [facility] 05-28-2024 14:27-0500 Body weight 96.93 kg Radha Wilcoxton DO Work Phone: [facility] 05-28-2024 14:27-0500 Diastolic blood pressure 83 mm[Hg] Radha Santoyo DO Work Phone: [facility] 05-28-2024 14:27-0500 Heart rate 96 /min Radha Santoyo DO Work Phone: [facility] 05-28-2024 14:27-0500 SaO2% (BldA) [Mass fraction] 96 % Radha Santoyo DO Work Phone: [facility] 05-28-2024 14:27-0500 Systolic blood pressure 136 mm[Hg] Radha Santoyo DO Work Phone: [facility] 05-19-2024 09:42-0500 Body mass index (BMI) [Ratio] 35.02 kg/m2 Kenia Washington DATA COMMUNICATIONS TECHNICIAN Work Phone: [facility] 05-19-2024 09:42-0500 Body weight 98.43 kg Kenia Washington DATA COMMUNICATIONS TECHNICIAN Work Phone: [facility] 05-19-2024 09:42-0500 Diastolic blood pressure 74 mm[Hg] Kenia Washington DATA COMMUNICATIONS TECHNICIAN Work Phone: [facility] 05-19-2024 09:42-0500 Systolic blood pressure 128 mm[Hg] Kenia Washington DATA COMMUNICATIONS TECHNICIAN Work Phone: [facility] 04-01-2024 11:12-0400 Body height 167.6 cm Kenia Washington DATA COMMUNICATIONS TECHNICIAN Work Phone: [facility] 04-01-2024 11:12-0400 Body mass index (BMI) [Ratio] 34.02 kg/m2 Kenia Washington DATA COMMUNICATIONS TECHNICIAN Work Phone: [facility] 04-01-2024 11:12-0400 Body weight 95.62 kg Kenia Washington DATA COMMUNICATIONS TECHNICIAN Work Phone: [facility] 04-01-2024 11:12-0400 Diastolic blood pressure 82 mm[Hg] Kenia Washington DATA COMMUNICATIONS TECHNICIAN Work Phone: [facility] 04-01-2024 11:12-0400 Heart rate 95 /min Kneia Washington DATA COMMUNICATIONS TECHNICIAN Work Phone: [facility] 04-01-2024 11:12-0400 SaO2% (BldA) [Mass fraction] 98 % Kenia Washington DATA COMMUNICATIONS TECHNICIAN Work Phone: [facility] 04-01-2024 11:12-0400 Systolic blood pressure 138 mm[Hg] Kenia Washington DATA COMMUNICATIONS TECHNICIAN Work Phone: [facility] 03-19-2024 00:22-0400 Diastolic blood pressure 81 mm[Hg] [facility] 03-19-2024 00:22-0400 Heart rate 97 /min [facility] 03-19-2024 00:22-0400 Respiratory rate 18 /min [facility] 03-19-2024 00:22-0400 SaO2% (BldA) [Mass fraction] 98 % [facility] 03-19-2024 00:22-0400 Systolic blood pressure 113 mm[Hg] [facility] 03-18-2024 21:56-0400 Body temperature 98.2 [degF] [facility] 03-18-2024 21:54-0400 Body height 167.64 cm [facility] 03-18-2024 21:54-0400 Body weight 97.52 kg [facility] 03-05-2024 12:39-0400 Body height 167.64 cm [facility] 03-05-2024 12:39-0400 Body mass index (BMI) [Ratio] 37.1 kg/m2 [facility] 03-05-2024 12:39-0400 Body temperature 97.6 [degF] [facility] 03-05-2024 12:39-0400 Body weight 104.32 kg [facility] 03-05-2024 12:39-0400 Diastolic blood pressure 84 mm[Hg] [facility] 03-05-2024 12:39-0400 Heart rate 90 /min [facility] 03-05-2024 12:39-0400 Respiratory rate 18 /min [facility] 03-05-2024 12:39-0400 SaO2% (BldA) [Mass fraction] 99 % [facility] 03-05-2024 12:39-0400 Systolic blood pressure 118 mm[Hg] [facility] 02-27-2024 13:41-0400 Body mass index (BMI) [Ratio] 34.86 kg/m2 Kenia Washington DATA COMMUNICATIONS TECHNICIAN Work Phone: [facility] 02-27-2024 13:41-0400 Body weight 97.98 kg Kenia Washington DATA COMMUNICATIONS TECHNICIAN Work Phone: [facility] 02-27-2024 13:41-0400 Diastolic blood pressure 83 mm[Hg] Kenia Washington DATA COMMUNICATIONS TECHNICIAN Work Phone: [facility] 02-27-2024 13:41-0400 Heart rate 90 /min Kenia Washington DATA COMMUNICATIONS TECHNICIAN Work Phone: [facility] 02-27-2024 13:41-0400 SaO2% (BldA) [Mass fraction] 99 % Kenia Washington DATA COMMUNICATIONS TECHNICIAN Work Phone: [facility] 02-27-2024 13:41-0400 Systolic blood pressure 128 mm[Hg] Kenia Washington DATA COMMUNICATIONS TECHNICIAN Work Phone: [facility] [employer] 05-07-2023 13:15-0400 Body height 167.64 cm Key Patel Other [employer] Other 05-07-2023 13:15-0400 Body mass index (BMI) [Ratio] 37.54 kg/m2 Key Patel Other [employer] Other 05-07-2023 13:15-0400 Body temperature 97.8 [degF] Key Patel Other [employer] Other 05-07-2023 13:15-0400 Body weight 105.51 kg Key Patel Other [facility] Other 05-07-2023 13:15-0400 Respiratory rate 18 /min Key Patel Other [facility] Other 05-07-2023 13:15-0400 SaO2% (BldA) [Mass fraction] 98 % Key Patel Other [employer] Other 11-08-2022 13:50-0400 Body height 167.64 cm Chase Saldana Other [employer] Other 11-08-2022 13:50-0400 Body mass index (BMI) [Ratio] 35.51 kg/m2 Chase Saldana Other [facility] Other 11-08-2022 13:50-0400 Body weight 99.79 kg Chase Saldana Other [facility] Other 04-26-2022 11:55-0400 Body height 167.64 cm Autumn Marley Other [facility] Other 04-26-2022 11:55-0400 Body mass index (BMI) [Ratio] 35.02 kg/m2 Autumn Marley Other [facility] Other 04-26-2022 11:55-0400 Body temperature 97.7 [degF] Autumn Marley Other [facility] Other 04-26-2022 11:55-0400 Body weight 98.43 kg Autumn Marley Other [facility] Other 04-26-2022 11:55-0400 Diastolic blood pressure 82 mm[Hg] Autumn Marley Other [facility] Other 04-26-2022 11:55-0400 Respiratory rate 18 /min Autumn Marley Other [facility] Other 04-26-2022 11:55-0400 SaO2% (BldA) [Mass fraction] 98 % Autumn Marley Other [facility] Other 04-26-2022 11:55-0400 Systolic blood pressure 122 mm[Hg] Autumn Marley Other [employer] Other 04-23-2022 10:50-0400 Body height 167.64 cm Autumn Restrepoault Other [facility] Other 04-23-2022 10:50-0400 Body mass index (BMI) [Ratio] 33.89 kg/m2 Autumn Marley Other [facility] Other 04-23-2022 10:50-0400 Body temperature 97.8 [degF] Autumn Marley Other [employer] Other 04-23-2022 10:50-0400 Body weight 95.26 kg Autumn Marley Other [facility] Other 04-23-2022 10:50-0400 Respiratory rate 18 /min Autumn Marley Other [facility] Other 04-23-2022 10:50-0400 SaO2% (BldA) [Mass fraction] 98 % Autumn Marley Other [employer] Other 03-27-2022 10:15-0400 Body height 167.64 cm Deb Simon Other [facility] Other 03-27-2022 10:15-0400 Body mass index (BMI) [Ratio] 34.38 kg/m2 Deb Simon Other [facility] Other 03-27-2022 10:15-0400 Body temperature 97.4 [degF] Deb Simon Other [facility] Other 03-27-2022 10:15-0400 Body weight 96.62 kg Deb Simon Other [facility] Other 03-27-2022 10:15-0400 Respiratory rate 18 /min Deb Simon Other [facility] Other 03-27-2022 10:15-0400 SaO2% (BldA) [Mass fraction] 96 % Deb Simon Other [facility] Other 04-05-2021 16:10-0400 Body height 167.64 cm Lucinda Hectormond Other [facility] Other 04-05-2021 16:10-0400 Body mass index (BMI) [Ratio] 33.25 kg/m2 Lucinda Naomi Other [facility] Other 04-05-2021 16:10-0400 Body temperature 97.3 [degF] Lucinda Naomi Other [facility] Other 04-05-2021 16:10-0400 Body weight 93.44 kg Lucinda Naomi Other [facility] Other 04-05-2021 16:10-0400 Diastolic blood pressure 74 mm[Hg] Lucinda Salgado Other [facility] Other 04-05-2021 16:10-0400 Respiratory rate 18 /min Lucinda Salgado Other [facility] Other 04-05-2021 16:10-0400 SaO2% (BldA) [Mass fraction] 99 % Lucinda Salgado Other [facility] Other 04-05-2021 16:10-0400 Systolic blood pressure 111 mm[Hg] Lucinda Salgado Other [facility] Other Encounters Encounter Date Encounter Type Care Provider Facility Start: 07-03-2024 ambulatory NON STAFF Facility:[facility] Start: 06-13-2024 End: 06-13-2024 Emergency department patient visit [facility] Start: 06-08-2024 End: 06-08-2024 ambulatory Bob Garcia MD Facility:[facility] Start: 05-28-2024 End: 05-28-2024 ambulatory [facility] Start: 05-28-2024 End: 05-28-2024 Office outpatient new 45 minutes [facility] DO Work Phone: [facility] Comment on above: Chronic cough (Prima ry Dx); Mild intermittent asthma in adult without complication Start: 05-28-2024 End: 05-28-2024 ambulatory [facility] Start: 05-19-2024 End: 05-19-2024 Bamboo flowsheet Kenia Washington DATA COMMUNICATIONS TECHNICIAN Work Phone: [facility] Start: 05-19-2024 End: 05-19-2024 Bamboo flowsheet Kenia Washington DATA COMMUNICATIONS TECHNICIAN Work Phone: [facility] Start: 05-19-2024 End: 05-19-2024 Office outpatient visit 25 minutes Kenia Washington DATA COMMUNICATIONS TECHNICIAN Work Phone: [facility] Comment on above: Seizures (CMS/HCC) ( Primary Dx); Mood disorder (CMS/HCC); Chronic migraine without aura without status migrainosus, not intractable (CMS/HCC); Chronic bilateral low back pain, unspecified whether sciatica present; Paresthesia of both lower extremities; Fatty infiltration of bone marrow Start: 05-19-2024 End: 05-19-2024 ambulatory KENIA WASHINGTON Not Available Start: 05-13-2024 End: 05-13-2024 Emergency department patient visit [facility] Start: 05-11-2024 End: 05-11-2024 Patient encounter procedure [facility] [place] Work Phone: Start: 05-11-2024 End: 05-11-2024 ambulatory NON STAFF [facility] Work Phone: Start: 2024 End: 2024 ambulatory RADHA [facility] Start: 04-30-2024 End: 04-30-2024 Emergency department patient visit [facility] Start: 04-28-2024 Registered [facility] Start: 04-28-2024 End: 04-28-2024 ambulatory [facility] Start: 04-14-2024 ambulatory KENIA [facility] Start: 04-01-2024 End: 04-01-2024 Bamboo flowsheet Kenia Washington DATA COMMUNICATIONS TECHNICIAN Work Phone: [facility] Start: 04-01-2024 End: 04-01-2024 Bamboo flowsheet Kenia Washington DATA COMMUNICATIONS TECHNICIAN Work Phone: [facility] Start: 04-01-2024 End: 04-01-2024 Office outpatient visit 25 minutes Kenia Menaoll DATA COMMUNICATIONS TECHNICIAN Work Phone: [facility] Comment on above: Seizures (CMS/HCC) ( Primary Dx); Mood disorder (CMS/HCC); Episodic migraine (CMS/HCC); Chronic bilateral low back pain, unspecified whether sciatica present; Paresthesia of both lower extremities; Anxiety Start: 04-01-2024 End: 04-01-2024 ambulatory KENIA WASHINGTON Not Available Start: 03-18-2024 End: 03-19-2024 Emergency department patient visit [place] Work Phone: Start: 03-18-2024 End: 03-18-2024 ambulatory NON STAFF [place] Work Phone: Start: 03-18-2024 End: 03-18-2024 Patient encounter procedure [place] [place] Work Phone: Start: 03-10-2024 ambulatory KENIA WASHINGTON [facility] Start: 03-06-2024 Registered [facility] Start: 03-05-2024 End: 03-05-2024 Bamboo flowsheet Kamla David DO Work Phone: [facility] Start: 03-05-2024 End: 03-05-2024 Bamboo flowsheet Kamla David DO Work Phone: [facility] Start: 03-05-2024 End: 03-05-2024 ambulatory NON STAFF [facility] Work Phone: Start: 03-05-2024 End: 03-05-2024 Patient encounter procedure Kamla David DO Work Phone: [facility] [place] Work Phone: Comment on above: Paresthesias (Primar y Dx) Start: 03-05-2024 End: 03-05-2024 ambulatory KAMLA DAVID Not Available Start: 02-27-2024 End: 02-27-2024 Office outpatient visit 25 minutes Kenia Washington DATA COMMUNICATIONS TECHNICIAN Work Phone: [facility] [address] Comment on above: Seizures (CMS/HCC) ( Primary Dx); Mood disorder (CMS/HCC); Episodic migraine (CMS/HCC); Chronic bilateral low back pain, unspecified whether sciatica present; Paresthesia of both lower extremities Start: 02-27-2024 End: 02-27-2024 ambulatory KENIA WASHINGTON Not Available Start: 02-13-2024 End: 02-14-2024 Emergency department patient visit HALEIGH CHAVEZ [facility] Start: 02-12-2024 End: 02-12-2024 ambulatory SHAIKH KORIN Not Available Start: 02-07-2024 Registered [facility] Start: 02-03-2024 End: 02-03-2024 ambulatory SHAIKH KORIN Not Available Start: 01-30-2024 End: 01-30-2024 ambulatory KENIA WASHINGTON Not Available Start: 01-09-2024 End: 01-09-2024 ambulatory KENIA MENAOLL Not Available Start: 01-02-2024 End: 01-02-2024 ambulatory MARY WIGGINS Not Available Start: 12-28-2023 End: 12-29-2023 Emergency department patient visit [facility] Start: 12-16-2023 End: 12-16-2023 ambulatory SHAIKH KORIN Not Available Start: 12-11-2023 End: 12-11-2023 Emergency department patient visit [facility] Start: 12-10-2023 End: 12-10-2023 ambulatory KAMLA DAVID [...] 11-27-2023 Emergency department patient visit HALEIGH CHAVEZ [facility] Start: 11-21-2023 End: 11-21-2023 ambulatory MARY WIGGINS Not Available Start: 11-16-2023 End: 11-16-2023 Emergency department patient visit [facility] Start: 10-30-2023 End: 10-30-2023 ambulatory JOHN HADDAD Not Available Start: 10-15-2023 End: 10-15-2023 ambulatory [facility] Not Available Start: 10-09-2023 End: 10-09-2023 Emergency department patient visit [facility] Start: 09-21-2023 End: 09-22-2023 Emergency department patient visit [facility] Start: 09-21-2023 End: 09-22-2023 Emergency department patient visit [facility] Start: 08-27-2023 End: 08-27-2023 Emergency department patient visit [facility] Start: 07-09-2023 End: 07-09-2023 Emergency department patient visit [facility] Start: 05-07-2023 End: 05-07-2023 ambulatory Key Patel Other [facility] Other Start: 05-07-2023 Office outpatient vi sit 15 minutes Key Patel [facility] Start: 02-19-2023 ambulatory [facility] Facility: [facility] Start: 11-08-2022 Office outpatient vi sit 15 minutes Chase Saldana [facility] Start: 11-08-2022 End: 11-08-2022 ambulatory Chase Saldana Other [facility] Other Start: 11-08-2022 End: 11-08-2022 Departed Referred PA-C Chase Saldana Work Phone: [facility] [place] Work Phone: Start: 04-26-2022 End: 04-26-2022 ambulatory Autumn Donell Other [facility] Other Start: 04-26-2022 Office outpatient vi sit 15 minutes Autumn Donell [facility] Start: 04-23-2022 End: 04-23-2022 ambulatory Autumn Donell Other [facility] Other Start: 04-23-2022 Office outpatient vi sit 15 minutes Autumn Donell [facility] Start: 04-03-2022 End: 04-03-2022 ambulatory COLÓN H FAWWAD Facility:[facility] Start: 03-27-2022 End: 03-27-2022 ambulatory Deb Simon Other [facility] Other Start: 03-27-2022 Office outpatient vi sit [...] Start: 07-18-2021 End: 07-19-2021 ambulatory SHAIKH Rosales LANGLEY Facility:[facility] Start: 05-28-2021 ambulatory SHAIKH Rosales LANGLEY Facilit y:[facility] Start: 05-01-2021 End: 05-01-2021 ambulatory SHAIKH Rosales LANGLEY Facility:[facility] Start: 04-28-2021 End: 04-29-2021 ambulatory SHAIKH Rosales LANGLEY Facility:[facility] Start: 04-05-2021 Office outpatient vi sit 15 minutes Lucinda Salgado [facility] [place] Start: 04-12-2018 End: 04-12-2018 Patient encounter [facility] Facility:[facility] Start: 04-11-2018 End: 04-12-2018 Emergency department patient visit [facility] Facility:[facility] Procedures Date Procedure Procedure Detail Performing Clinician Start: 05-11-2024 MR lumbar spine wo con Start: 05-11-2024 MRI of head Start: 03-05-2024 End: 03-05-2024 Needle emg ea extremty w/paraspinl area complete Kamla David DO Work Phone: Plan of Treatment Date Care Activity Detail Author Start: 05-28-2025 Adult BMI Screening Adult BMI Screen ing [facility] Start: 05-28-2025 Tobacco Screening Tobacco Screening [facility] Start: 12-09-2024 End: 12-09-2024 Patient encounter procedure 12/09/2024 2:00 PM EDT Office Visit [facility] [address] [place] [id number] Palma Guy PA [address] [place] [address] [facility] Start: 07-21-2024 End: 07-21-2024 Patient encounter procedure 07/21/2024 11:00 AM EST Office Visit [facility] [address] [place] [address] Kenia Washington NP [address] [place] [id number] [facility] Start: 05-19-2024 End: 05-19-2024 Patient encounter procedure [facility] [facility] Comment on above: Seizures (CMS/HCC) ( Primary Dx); Mood disorder (CMS/HCC); Episodic migraine (CMS/HCC); Chronic bilateral low back pain, unspecified whether sciatica present; Paresthesia of both lower extremities; Fatty infiltration of bone marrow Start: 04-01-2024 End: 04-01-2025 MR Brain WO and W contrast IV MR brain w and wo contrast routine Imaging Routine Seizures (CMS/HCC) Episodic migraine (CMS/HCC) Expected: 04/01/2024 (Approximate), Expires: 04/01/2025 [facility] Work Phone: Comment on above: Expected: 04/01/2024 (Approximate), Expires: 04/01/2025 Start: 04-01-2024 End: 04-01-2025 MR Lumbar spine WO contrast MR lumbar spine wo contrast Imaging Routine Chronic bilateral low back pain, unspecified whether sciatica present Paresthesia of both lower extremities Expected: 04/01/2024 (Approximate), Expires: 04/01/2025 [facility] [employer] Comment on above: Expected: 04/01/2024 (Approximate), Expires: 04/01/2025 Start: 04-01-2024 End: 04-01-2024 Patient encounter procedure [facility] [employer] Comment on above: Seizures (CMS/HCC) ( Primary Dx); Mood disorder (CMS/HCC); Episodic migraine (CMS/HCC); Chronic bilateral low back pain, unspecified whether sciatica present; Paresthesia of both lower extremities Start: 03-15-2024 COVID-19 Vaccine ( season) COVID-19 Vaccine ( season) [facility] Start: 03-15-2024 Influenza vaccination [facility] Start: 03-05-2024 End: 03-05-2024 Patient encounter procedure 03/05/2024 11:00 AM EDT Procedure Visit [facility] [address] [place] [address] Kamla David DO [address] [place] [address] [address] [facility] Comment on above: Arrived Start: 2023 Screening for malign ant neoplasm of cervix [facility] Start: 11-08-2022 Bacteria identified in Urine by Culture Urine Culture [facility] Start: 2014 Screening for malign ant neoplasm of cervix Pap Smear [facility] Start: 2012 DTaP,Tdap and Td Vaccines (1 - Tdap) DTaP,Tdap and Td Vaccines (1 - Tdap) [facility] Start: 2011 Adult BMI Follow Up Plan Adult BMI Follow Up Plan [facility] Start: 2005 [facility] 2 Extremit ies Neurology Routine Paresthesia of both lower extremities Ordered: 03/05/2024 [facility] Work Phone: Comment on above: Ordered: 03/05/2024 Patient Education Panic Attack ED [facility] Work Phone: Patient referral [facility] Work Phone: Immunizations Immunization Date Immunization Notes Care Provider [facility] 10-25-2023 influenza, injectable, quadrivalent, preservative free Kamla David DO Work Phone: [facility] 10-25-2023 influenza virus vaccine, unspecified formulation Kamla David DO Work Phone: [facility] 04-23-2021 influenza, seasonal, injectable Christgrover David DO Work Phone: [facility] 03-28-2021 Moderna SARS-CoV-2 [facility]ination [facility] Work Phone: [facility] 01-26-2020 Toradol per 15 mg Lucinda Dym ond Other [employer] Other 09-08-2019 Rocephin 500 mg Lucinda Dymon d Other [employer] Other 06-10-2018 Influenza, injectable, Madin Camila Canine Kidney, preservative free, quadrivalent Christopher Frankie DO Work Phone: [facility] 12-11-2011 human papilloma viru s vaccine, quadrivalent Christopher Frankie DO Work Phone: [facility] 11-09-2011 human papilloma viru s vaccine, quadrivalent Christopher Frankie DO Work Phone: [facility] Healthcare Payers Date Payer Category Payer Medicaid [id number] 2022 Medicaid [id number] . [id number] 2018 Unknown 1993 Unknown [id number] 2.16.84 0.1.622379.3.579.2.593 1993 Unknown [id number] 2.16.84 0.1.463175.3.579.2.593 1993 Unknown [id number] 2.16.84 0.1.614401.3.579.2.593 1993 Unknown [id number] 2.16.84 0.1.832125.3.579.2.593 1993 Unknown [id number] 2.16.84 0.1.908009.3.579.2.593 1993 Unknown [id number] 2.16.84 0.1.419584.3.579.2.593 1993 Unknown [id number] 2.16.84 0.1.143504.3.579.2.593 1993 Unknown [id number] 2.16.84 0.1.670264.3.579.2.593 1993 Unknown [id number] 2.16.84 0.1.634127.3.579.2.593 1993 Unknown [id number] 2.16.84 0.1.909031.3.579.2.593 1993 Unknown [id number] 2.16.84 0.1.062551.3.579.2.593 1993 Unknown [id number] 2.16.84 0.1.092203.3.579.2.593 1993 Unknown [id number] 2.16.84 0.1.589837.3.579.2.593 1993 Unknown [id number] 2.16.84 0.1.922130.3.579.2.593 1993 Unknown [id number] 2.16.84 0.1.210061.3.579.2.1259 1993 Unknown [id number] 2.16.84 0.1.553494.3.579.2.1259 1993 Unknown [id number] 2.16.84 0.1.798943.3.579.2.1259 1993 Unknown [id number] 2.16.84 0.1.900640.3.579.2.1259 1993 Unknown [id number] 2.16.84 0.1.936640.3.579.2.1259 1993 Unknown [id number] 2.16.84 0.1.495061.3.579.2.1259 1993 Unknown [id number] 2.16.84 0.1.800954.3.579.2.1259 1993 Unknown [id number] 2.16.84 0.1.421858.3.579.2.1259 1993 Unknown [id number] 2.16.84 0.1.403858.3.579.2.1259 1993 Unknown [id number] 2.16.84 0.1.711118.3.579.2.1259 1993 Unknown [id number] 2.16.84 0.1.587906.3.579.2.1259 1993 Unknown [id number] 2.16.84 0.1.316078.3.579.2.1259 1993 Unknown [id number] 2.16.84 0.1.357642.3.579.2.1259 1993 Unknown [id number] 2.16.84 0.1.243796.3.579.2.1259 1993 Unknown [id number] 2.16.84 0.1.288169.3.579.2.1259 1993 Unknown [id number] 2.16.84 0.1.074378.3.579.2.1259 1993 Unknown [id number] 2.16.84 0.1.222409.3.579.2.1259 1993 Unknown [id number] 2.16.84 0.1.881148.3.579.2.1259 1993 Unknown [id number] 2.16.8 40.1.414182.3.579.2.1286 1993 Unknown [id number] 2.16. 840.1.521423.3.579.2.196 1993 Unknown [id number] 2.16.8 40.1.132089.3.579.2.1286 1993 Unknown [id number] 2.16.8 40.1.702649.3.579.2.1286 1993 Unknown [id number] 2.16.8 40.1.405329.3.579.2.1286 1993 Unknown [id number] 2.16.8 40.1.793047.3.579.2.1286 1993 Unknown [id number] 2.16.8 40.1.487207.3.579.2.1286 1993 Unknown [id number] 2.16.8 40.1.169076.3.579.2.1286 1993 Unknown [id number] 2.16.8 40.1.334924.3.579.2.1286 1993 Unknown [id number] 2.16.8 40.1.752300.3.579.2.1286 1993 Unknown [id number] 2.16.8 40.1.061407.3.579.2.1286 1993 Unknown [id number] 2.16.8 40.1.709880.3.579.2.1286 1993 Unknown [id number] 2.16.8 40.1.465645.3.579.2.1286 1993 Unknown [id number] 2.16.8 40.1.471464.3.579.2.1286 1993 Unknown [id number] 2.16.8 40.1.334807.3.579.2.1286 1993 Unknown [id number] 2.16.8 40.1.811274.3.579.2.1286 1993 Unknown [id number] 2.16.8 40.1.243155.3.579.2.1286 1993 Unknown [id number] 2.16.8 40.1.945715.3.579.2.1286 1993 Unknown [id number] 2.16.8 40.1.399055.3.579.2.1286 1993 Unknown [id number] 2.16.8 40.1.669797.3.579.2.1286 1993 Unknown [id number] 2.16.8 40.1.077817.3.579.2.1286 1993 Unknown [id number] 2.16.8 40.1.240508.3.579.2.1286 1993 Unknown [id number] 2.16.8 40.1.525031.3.579.2.1286 1993 Unknown [id number] 2.16.8 40.1.508057.3.579.2.1286 1993 Unknown [id number] 2.16.84 0.1.094974.3.579.2.1286 1959 Self-pay 1959 Unknown [id number] 2.1 6.840.1.643534.19 1959 Unknown [id number] Unknown [facility] [id number] Unknown [id number] 2.16.8 40.1.706152.3.579.2.531 Unknown [id number] 2.16.8 40.1.785884.3.579.2.531 Unknown [id number] 2.16.8 40.1.475381.3.579.2.531 Social History Date Type Detail Facility Unknown if ever smoked [facility] Other Start: 02-12-2024 End: 04-01-2024 Sex Assigned At [employer] [facility] [employer] Other Start: 07-15-2007 End: 07-15-2021 Tobacco smoking status [facility] Smoker (finding) [facility] Start: 1995 Sex Assigned At Female F [facility] Start: 10-15-2023 End: 03-05-2024 Tobacco smoking status [facility] Ex-smoker (finding) [facility] Start: 07-15-2007 End: 07-15-2021 History of tobacco use Cigarette Smoker [facility] History of tobacco use Passive smoker [facility] Start: 10-15-2023 End: 05-28-2024 Tobacco use and exposure Smokeless tobacco non-user [facility] Start: 02-12-2024 End: 04-01-2024 Alcoholic beverage intake Ex-drinker (finding) [facility] Start: 02-12-2024 End: 04-01-2024 History of Social function [facility] Start: 1995 Sex assigned at Not on file [facility] Start: 05-28-2024 Alcoholic beverage intake Lifetime non-drinker (finding) [facility] Frequency of Alcohol Consumption Never [facility] Start: 01-08-2022 Alcohol Comment OCCASSIONALLY [facility] Start: 02-17-2015 Sex Female (finding) [facility] NEGATED: Highlighted row [facility] Goals Date Patient Goal Desired Activity /State Personal health goal Comment on above: Formatting of this n ote might be different from the original. Evaluation of progress towards goal: To be discharged home Clinical Notes 04-05-2021 to 05-28-2024 Radha Ana Maria Santoyo, DO - 05/28/2024 2:00 PM Live Washington NP - 05/19/2024 9:40 AM ESTPatient InstructionsKenia Washington NP - 04/01/2024 11:20 AM EDTPatient InstructionsPatient Instructions Note Date & Type Note Facility 05-28-2024 History of Present illness Narrative [facility] Patient - Jennifer Aguillon Age - 29 [facility] 1995 [id number] Referring physician: Bernice Wolff CNP Reason for [...] also hospitalized. She was admitted here at [facility] and did not require transfer out but [...] Diagnosis Date ADHD Anxiety Asthma Bipolar disorder ([facility]) Bronchitis, chronic ([facility]) Bulging lumbar disc Depression Obesity Opiate abuse, episodic ([facility]) Panic disorder Psychogenic nonepileptic seizure 04/2024 PTSD (post-traumatic stress disorder) Past Surgical History: Procedure Laterality Date DILATION AND CURETTAGE, DIAGNOSTIC / THERAPEUTIC LAPAROSCOPIC CHOLECYSTECTOMY N/A 04/24/2021 Performed by Tripp Ferris MD at [facility] TONSILLECTOMY Latex; Latex, natural rubber; Lamotrigine; Lexapro [escitalopram oxalate]; Adhesive; Clindamycin; Ibuprofen; Pristiq [desvenlafaxine succinate]; and Sulfa (sulfonamide antibiotics) Prior to Admission medications Medication Sig Start Date End Date Taking? Authorizing Provider dbnilmibea-uhbgfazmrxxdt-renk (FIORICET, ESGIC) 50-300-40 mg per capsule Take [...] not taking: Reported on 05/28/2024 03/16/22 Murray Phillips, ibuprofen (ADVIL,MOTRIN) 800 mg tablet Take 1 [...] not taking: Reported on 05/28/2024 04/30/24 Stan Johnson, DO rizatriptan (MAXALT) 5 mg tablet Take [...] significant interval change. Dr. Radha Santoyo DO. [facility] Office: [phone] documented in this encounter [facility] 05-19-2024 History of Present illness Narrative Images [...] depression Past Medical History: Diagnosis Date Asthma ([facility]) Cholecystitis Depression ([facility]) PTSD (post-traumatic stress disorder) ([facility]) Past Surgical History: Procedure Laterality Date CHOLECYSTECTOMY [...] wrist extensors , wrist flexor , and clinical quality assurance specialist strength 5/5. LUE strength deltoid , biceps , triceps , wrist extensors , wrist flexor , and clinical quality assurance specialist strength 5/5. RLE strength iliopsoas, quadriceps, tibialis [...] reflex 1+. LLE Knee reflex 1+. Coordination: Hrfbnf-tk-xmqs testing normal. Rapid alternating movements are normal. Gait: Normal. Review and summary of old records: MRI of the lumbar spine w/o contrast [place] [facility] [place]: Fatty marrow replacement changes. May [...] conditions including anxiety (she is seen at [facility]). I will defer current treatment of these to psychiatry - The patient may also benefit from cognitive behavioral therapy at [facility] for suspected PNES Chronic migraine without aura without status migrainous, not intractable ([facility]) It is my impression that the patient [...] new or worsening symptoms. Kenia Washington NP [facility] Advanced Neurology documented in this encounter [facility] 05-19-2024 Instructions Kenia Washington NP - 05/19/2024 9:40 AM EST - Referral to pain management - Referral to hematology/oncology - Stop rizatriptan - Start Nurtec 75 mg ODT as needed for migraine documented in this encounter [facility] 04-01-2024 History of Present illness Narrative Images [...] from sleep with confusion. She states her collections assistant prescribed Xanax, and she feels as if [...] depression Past Medical History: Diagnosis Date Asthma (CMS/HCC) Cholecystitis Depression (CMS/HCC) PTSD (post-traumatic stress disorder) ([facility]) Past Surgical History: Procedure Laterality Date CHOLECYSTECTOMY [...] wrist extensors , wrist flexor , and clinical quality assurance specialist strength 5/5. LUE strength deltoid , biceps , triceps , wrist extensors , wrist flexor , and clinical quality assurance specialist strength 5/5. RLE strength iliopsoas, quadriceps, tibialis [...] reflex 1+. LLE Knee reflex 1+. Coordination: Yzdcsa-oe-nfxt testing normal. Rapid alternating movements are normal. [...] alone. The patient verbalizes understanding Mood disorder ([facility]) The patient has a substantial mood disorder. She has a history of frequent panic attacks and anxiety. She reports significant improvement on Xanax. PLAN: - I advised the patient to follow up closely with psychiatry for aggressive treatment her psychiatric conditions (she is seen at [facility]). I will defer current treatment of these to psychiatry - The patient may also benefit from cognitive behavioral therapy at [facility] for possible PNES Episodic migraine The patient has tried hcsx-ado-axkrhag medications such as Tylenol and ibuprofen for [...] new or worsening symptoms. Kenia Washington NP [facility] Advanced Neurology documented in this encounter [facility] 04-01-2024 Instructions Kenia Washington NP - 04/01/2024 11:20 AM EDT - MRI of the brain and lumbar spine - Stop verapamil - Start rizatriptan as directed documented in this encounter [facility] 03-05-2024 History of Present illness Narrative Images from the original note were not included. Reason for Appointment: EMG Patient: Jennifer Aguillon : 1995 EMG Computer: [employer] Referring Physician: Kenia Washington CNP EMG: DEBBI transportation operations manager: Juan Del Cid RT(R) Office Location: [place] Reason for EMG: c/o numbness/tingling in bilateral legs/feet, cramping in low back & bilateral hips, low back pain that radiates down bilateral legs. No hx of DM. Not on blood thinners. Comments: Procedure was explained to the patient & male director of cardiac rehabilitation who expressed understanding. Patient appeared to have tolerated the test well despite some discomfort due to the nature of the test. documented in this encounter [facility] 02-27-2024 History of Present illness Narrative Images from the original note were not included. Kenia Washington NP Chief Complaint Patient presents with Seizure-like activity Headache Back Pain Subjective Jennifer Aguillon is a 28 y.o. female. HPI The patient presents today for follow up. She is accompanied by her boyfriend. She had a routine EEG completed for review. She has an MRI of the brain scheduled for 03/11/2024. She was unable to have this completed yesterday due to not having transportation. The patient has not lost consciousness since the prior neurology appointment. She has had intermittent staring episodes during which she does not respond. She states all of her seizure-like episodes are preceded by significant anxiety or panic attacks. If she takes her Xanax at the onset of anxiety, she mentions it can prevent seizure-like activity. The patient also reports waking up confused around 1:00 am the other day. She was unsure what day it was upon waking and was unsure what she was doing prior to falling asleep. She did not bite her tongue or have bowel/bladder incontinence. The patient has had daily headaches recently. She has approximately 2 to 3 migraines per week. These are located behind either eye. She describes them as sharp, stabbing and sometimes dull. They last all day. Her migraines are associated with nausea, vomiting, and increased sensitivity and sound. They are not associated with weakness, numbness, paresthesias, or increased sensitivity to sound. They are aggravated by physical activity. They have improved since finding her glasses. She has tried Tylenol and ibuprofen with no relief. The patient is having a new issue of pain all over her lower extremities. Onset was last year. She states she also experienced this in high school and was told her symptoms were related to richard splints. She ran cross country in high school but states she has not been physically active recently for richard splints to be the cause. The patient has bilateral low back pain. This is chronic and constant. It is tolerable most days. It can radiate to the bilateral buttocks, hips, thighs, and shins intermittently. Her entire lower extremities hurt, and symptoms are not located to a specific dermatomal distribution. She states, it feels like growing pains in your legs but worse. She has tingling in the toes and numbness in the plantar aspect of the bilateral feet. She denies bowel/bladder dysfunction, saddle anesthesia, buckling of the knees, or frequent falls. Gabapentin was helpful for symptoms in the past. She states she took gabapentin in highschool but, talked backwards, when taking the medication or would do weird things such as stop at green lights while driving. She denies any further concerns. There is [...] HPI) and headaches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
[2024-07-27 07:26] VITALS: BP 123/90; PULSE 91; TEMP 36.7; O2SAT 98
[2024-07-27 07:44] LABS: HCG Qualitative NEGATIVE (NEGATIVE); Internal Control Within Normal Limits
[2024-07-27 07:55] VITALS: BP 131/58; PULSE 92; O2SAT 98
[2024-07-27] MEDS: BUPIVACAINE HCL 0.25% PF 25 MG/10 ML VIAL INJ (07:56)
[2024-07-27] MEDS: IOHEXOL 240 MG/ML - 10 ML VIAL 24 MG INJ (07:56)
[2024-07-27] MEDS: 0.9 % SODIUM CHLORIDE 10 ML SYRINGE - SALINE FLUSH INJ (07:56)
[2024-07-27 07:57] VITALS: BP 129/74; PULSE 96; O2SAT 98
[2024-07-27] MEDS: METHYLPREDNISOLONE ACETATE 80 MG/ML VIAL INJ (07:57)
[2024-07-27] MEDS: LIDOCAINE HCL 2% 400 MG/20 ML MDV 3 ML INJ (07:57)
--- NOTE | 2024-07-27 08:10 | W.PM.PROCNOT ---
Date of procedure: 07/27/24 Pre-op diagnosis: Pain due to lumbar stenosis with neurogenic claudication Post-op diagnosis: same as pre-op Procedure: Procedure: Bilateral L5-S1 transforaminal epidural steroid injection Medications: Bupivacaine 0.25% 2cc, lidocaine 2% 1cc, depomedrol 80mg The patient was seen and examined in the preoperative holding area.? Informed consent was obtained and placed on the chart.? Patient was brought to the medical procedure unit and placed in the prone position where a timeout was completed verifying the correct patient, procedure site, position, and planned special equipment using sterile aseptic technique.? Under direct fluoroscopic visualization a 25-gauge Quincke tipped spinal needle was advanced at level left L5-S1 to the designated neural foramen where contrast dye was injected to show adequate spread.? There was no evidence of vascular or adverse uptake.? Epidural spread was appreciated.? The above-mentioned injectate was then placed in a 1.5 mL aliquot preceded by negative aspiration.? The needle was removed. The same procedure, at the same level, was completed on the opposite side. ? Patient was taken to the postprocedural recovery area and monitored for an appropriate length of time before found suitable for discharge in the accompaniment of a responsible adult. Anesthesia: Local Surgeon: Bob Garcia Pathology: none sent Condition: stable Disposition: no change
== END 2024-07-27 08:06 | disposition home or self-care (01) ==
PROVIDERS: Visit Provider Anesthesiology
DX: M48.062 Spinal stenosis, lumbar region with neurogenic claudication (principal)
CPT/HCPCS: 36415; 64483; 84703; J0665; J1010; Q9966

== ENCOUNTER 2024-08-06 14:23 | Outpatient (OUT) | payer MEDICAID, SELFPAY ==
--- NOTE | 2024-08-06 15:21 | P.CN_ITS ---
Consult Note: HPI Data of Consult Patient: known to practice within the last 3 years Requesting Physician: Samira Martinez NP Primary Care Provider: [facility] Consult Narrative Reason for consult: low back, bilateral lower extremity pain Narrative: 29yof who presents for evaluation. several years of worsening low back pain. 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 has engaged in >6 weeks of provider directed home exercise program, as well as pt. failed flexeril and methocarbamol, currently on tizanidine with mild relief, denies adverse med side effects. recently underwent bilateral L5-S1 TFESI providing 0% improvement per pt. pain 5-6/10 increasing to 10/10 with standing, walking, pushing, pulling, twisting, ADLS, and activity. cc:: CC: Samira Martinez NP Review of Systems ROS Status of ROS 10 or more systems reviewed and unremark able except as noted in history and below Musculoskeletal Reports: back pain PFSH PFS Medical History (Updated 07/02/24 @ 20:26 by SONJA Downey) Seizures ?R56.9 - Unspecified convulsions (ICD-10) Chipped tooth ?S02.5XXA - Fracture of tooth (traumatic), initial encounter for closed fracture (ICD-10) Former smoker, stopped smoking in distant past ?Z87.891 - Personal history of nicotine dependence (ICD-10) Asthma ?J45.909 - Unspecified asthma, uncomplicated (ICD-10) High blood cholesterol level ?E78.00 - Pure hypercholesterolemia, unspecified (ICD-10) Surgical History H/O dilation and curettage ?Z98.890 - Other specified postprocedural states (ICD-10) History of laparoscopic cholecystectomy ?Z90.49 - Acquired absence of other specified parts of digestive tract (ICD- 10) History of tonsillectomy and adenoidectomy ?Z90.89 - Acquired absence of other organs (ICD-10) Social History Smoking status: Former smoker Little interest or pleasure in doing things: not at all Feeling down, depressed, or hopeless: not at all Meds Home Medications and Allergies Home Medications ?Medication ?Instructions ?Recorded ?Confirmed ?Type oxcarbazepine 300 mg tablet 300 mg PO BID 11/26/23 07/27/24 History cholecalciferol (vitamin D3) 10 10 mcg PO DAILY 04/24/24 07/27/24 History mcg (400 unit) capsule (Vitamin D3) rizatriptan 5 mg tablet 5 mg PO Q2H PRN migraine headache 04/24/24 07/27/24 History epinephrine 0.15 mg/0.3 mL 0.3 ml IM PRN 05/20/24 07/27/24 History injection,auto-injector alprazolam 0.5 mg tablet (Xanax) 0.5 mg PO DAILY 06/08/24 07/27/24 History clindamycin HCl 150 mg capsule 300 mg (2 x 150 mg) PO Q6H 10 days 06/12/24 07/27/24 Rx #80 caps ibuprofen 600 mg tablet 600 mg PO QID PRN pain #20 tabs 06/12/24 07/27/24 Rx amoxicillin 500 mg capsule 500 mg PO TID 7 days #21 caps 07/02/24 07/27/24 Rx ketorolac 10 mg tablet 10 mg PO TID PRN pain #10 tabs 07/02/24 07/27/24 Rx tizanidine 4 mg tablet 4 mg PO Q12H PRN muscle spasticity 07/27/24 07/27/24 History Allergies Allergy/AdvReac Type Severity Reaction Status Date / Time latex Allergy Unknown Rash Verified 07/27/24 07:34 adhesive Allergy Rash Verified 07/27/24 07:34 Sulfa (Sulfonamide AdvReac Mild Hives Verified 07/27/24 07:34 Antibiotics) Exam Constitutional Documenting provider has reviewed patient's vital signs: yes Common normals: no apparent distress, oriented x3, healthy appearing, alert and well nourished General appearance: cooperative [facility] Common normals: normocephalic, hearing grossly normal bilaterally and moist oral mucous membranes Head and scalp: normocephalic Eye Common normals: PERRL Pupil: PERRL Neck & C-Spine Common normals: full ROM General: normal visual inspection Chest Common normals: inspection of chest normal Respiratory Common normals: normal respiratory effort, no retractions and no use of accessory muscles Back & Pelvis Lumbar spine/lower back: ROM limited and pain with ROM Sacroiliac joints: SI joints normal Other: positive facet loading strength 5/5 in BLE Neuro Common normals: oriented x3, CN's II-XII intact bilaterally, moves all extremities, no focal motor deficits, no sensory deficits noted and deep tendon reflexes 2+ bilaterally Sensorium/orientation: alert Motor exam: strength 5/5 throughout and no movement abnormalities noted Psych Common normals: mental status grossly normal, thought process normal, cooperative, affect normal, speech normal and activity/motor behavior normal Speech: normal speech Thought process: normal thought process Results Additional Findings Additional findings: If on a controlled substance or opioids, I have checked an [place] report on this patient and there are no aberrancies noted in the prescribing history.??If on a controlled substance or opioid a drug screen was completed and reviewed within the last year, and if there has not been a drug screen completed we ordered one today to monitor higher risk, state monitored pain medication use. As part of providing excellent, safe, comprehensive care, the following was completed at our patient's visit: 1. A medication reconciliation and review to ensure accurate knowledge of current/active medications, including asking our patients to inform us about any [id number] medications or herbal remedies/nutritional s upplements/alternative remedies. 2. A review to specifically ensure our patients have had annual screening for screening for depression, screening for tobacco use, and screening for unhealthy alcohol use. For concerning screenings had a discussion with the patient, provided patient education, and recommended follow-up with primary care provider when appropriate. If patient noted with a risk of falling, they received education on strength, gait, and balance training to prevent future risk of falling. Portions of this note may have been carried over from the previous visit and upd ated as appropriate. Please note this office utilizes paper charting in addition to the electronic medical record. A list of current medications, vitals, and PMH is available there as the clinical staff outside of myself do not have access to [employer] charting during the clinic day operations. As part of providing quality comprehensive care the current medications, vitals, and PMH were reviewed in the paper chart. Assessment and Plan Assessment and Plan (1) Lumbar stenosis with neurogenic claudication: (2) Lumbar spondylosis: Assessment and Plan: The patient has had over 3 months of moderate to severe back pain with functional impairment and inadequate response to conservative care including NSAIDS (unless there are contraindication such as concurrent blood thinners), multiple oral or topical pain medications, and home exercise program/physical therapy.? The Oswestry Disability Index was completed, and the patient scored a 47%.? The patient noted the following:?? moderate to severe pain impacting sitting, standing, sleep, driving, and social life We discussed the risks and benefits of the procedure with the patient, and we are NOT planning on using sedation as outlined in the guidelines from Medicare unless there is a documented reason that sedation would be strongly recommended.??The procedure will be completed with fluoroscopic guidance.? Plan bilateral L5-s1 mbb x2 working towards RFA for lumbar spondylosis and axial low back pain continue HEP as tolerated continue current medications f/u after each injection
== END 2024-08-06 14:24 | disposition home or self-care (01) ==
LOC: PM 14:24
PROVIDERS: Visit Provider Nurse Practitioner
DX: M48.062 Spinal stenosis, lumbar region with neurogenic claudication (principal); M47.816 Spondylosis without myelopathy or radiculopathy, lumbar region
CPT/HCPCS: G0463

== ENCOUNTER 2024-09-14 08:39 | Day surgery (SDC) | payer MEDICAID, SELFPAY ==
[2024-09-14 08:59] VITALS: BP 140/93; PULSE 94; TEMP 36.5; O2SAT 97
[2024-09-14 09:12] LABS: HCG Qualitative NEGATIVE (NEGATIVE); Internal Control Within Normal Limits
[2024-09-14 09:30] VITALS: BP 123/75; PULSE 91; O2SAT 97
[2024-09-14 09:35] VITALS: PULSE 92; O2SAT 98
[2024-09-14 09:37] VITALS: BP 127/66
[2024-09-14] MEDS: BUPIVACAINE HCL 0.25% PF 25 MG/10 ML VIAL 8 ML INJ (09:37)
[2024-09-14] MEDS: LIDOCAINE HCL 2% 400 MG/20 ML MDV 3 ML INJ (09:37)
--- NOTE | 2024-09-14 09:37 | W.PM.PROCNOT ---
Date of procedure: 09/14/24 Pre-op diagnosis: Pain due to lumbar spondylosis without myelopathy Post-op diagnosis: same as pre-op Procedure: Procedure: Bilateral L5-S1 medial branch block Medications: Bupivacaine 0.25% 6cc The patient was seen and examined in the preoperative holding area.? An informed consent was obtained and placed on the chart.? The patient was brought to the medical procedure unit and placed in the prone position.? A timeout was completed verifying correct patient, procedure site, positioning, plan, and special equipment.? Using aseptic technique, the needle was placed at left L5. Under direct fluoroscopic visualization a Quincke-tipped spinal needle was advanced to the junction of the superior articulating process with the transverse process at the designated medial branch segment.? Preceded by negative aspiration, the above-mentioned injectate was placed in 1 mL aliquots.? The procedure was repeated at left S1.? The needle was removed and insertion site was covered. The same procedure, at the same levels, was completed on the right side. The patient was taken to the postprocedural recovery area and monitored for an appropriate length of time before found suitable for discharge in the company of a responsible adult.? Anesthesia: Local Surgeon: Bob Garcia Pathology: none sent Condition: stable Disposition: no change
== END 2024-09-14 09:42 | disposition home or self-care (01) ==
LOC: SURGOUT 08:40
PROVIDERS: Visit Provider Anesthesiology
DX: M47.816 Spondylosis without myelopathy or radiculopathy, lumbar region (principal)
CPT/HCPCS: 36415; 64493; 84703; J0665

== ENCOUNTER 2024-10-10 13:31 | Emergency (ER) | payer MEDICAID, SELFPAY ==
[2024-10-10 13:36] VITALS: BP 135/102; PULSE 90; TEMP 36.6; O2SAT 98; BMI 38.7
--- OUTSIDE RECORDS SUMMARY | 2024-10-10 13:41 | XMS_ITS | CCD ---
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 Comment on above: Result Comment: RESU LTS ENTERED ON WRONG PATIENT Corrected on 07/27 AT 1342: Previously reported as 30 Performed By: #### N UM #### [facility] ([id number]) [address] [place] [address] 18841 SPECIFIC GRAVITY BETHANY 1.025 Normal 1.003-[address] [place] [address] Comment on above: Performed By: #### N UM #### [facility] ([id number]) [address] [place] [address] 82006 SPECIFIC GRAVITY BETHANY DISREGARD RESULTS, TESTS ORDERED ON WRONG PATIENT. Normal 1.003-1.[address] [place] [address] Comment on above: Result Comment: RESU LTS ENTERED ON WRONG PATIENT Corrected on 07/27 AT 1342: Previously reported as 1.025 Performed By: #### N UM #### [facility] ([id number]) [address] [place] [address] 94939 UROBILINOGEN BETHANY 0.2 eu/dL Normal <1.1 [facility] Comment on above: Performed By: #### N UM #### [facility] ([id number]) [address] [place] [address] 81646 UROBILINOGEN BETHANY DISREGARD RESULTS, T ESTS ORDERED ON WRONG PATIENT. Normal <1.1 [facility] Comment on above: Result Comment: RESU LTS ENTERED ON WRONG PATIENT Corrected on 07/27 AT 1342: Previously reported as 0.2 Performed By: #### N UM #### [facility] ([id number]) [address] [place] [address] 68946 BASIC METABOLIC PANLon 06-13 Anion gap [Moles/Vol] 8 mmol/L Normal 5-15 [facility] Comment on above: Performed By: #### B MP #### [facility] ([id number]) [address] [place] [address] 17574 Calcium [Mass/Vol] 8.9 mg/dL Normal 8.5-10.[address] [facility] Comment on above: Performed By: #### B MP #### [facility] ([id number]) [address] [place] [address] 33713 Chloride [Moles/Vol] 105 mmol/L Normal 98-109 [facility] Comment on above: Performed By: #### B MP #### [facility] ([id number]) [address] [place] [address] 13699 CO2 [Moles/Vol] 24 mmol/L Normal 22-32 [facility] Comment on above: Performed By: #### B MP #### [facility] ([id number]) [address] [place] [address] 36909 Creatinine [Mass/Vol] 0.72 mg/dL Normal 0.40-1.00 [facility] Comment on above: Result Comment: METH OD TRACEABLE TO IDMS STANDARD Performed By: #### B MP #### [facility] ([id number]) [address] [place] [address] 02382 eGFR (CKD-EPI) NON-RACE DEPENDENT >90 Normal >59 [facility] Comment on above: Result Comment: Reported eGFR is based on the CKD-EPI 2020 equation that does not use a race coefficient. Performed By: #### B MP #### [facility] ([id number]) [address] [place] [address] 07152 Glucose [Mass/Vol] 106 mg/dL High 65-[address] [facility] Comment on above: Performed By: #### B MP #### [facility] ([id number]) [address] [place] [address] 14266 Potassium [Moles/Vol] 3.7 mmol/L Normal 3.5-5.0 [facility] Comment on above: Performed By: #### B MP #### [facility] ([id number]) [address] [place] [address] 88048 Sodium [Moles/Vol] 137 mmol/L Normal 134-[address] [facility] Comment on above: Performed By: #### B MP #### [facility] ([id number]) [address] [place] [address] 48014 Urea nitrogen [Mass/Vol] 7 mg/dL Normal 5-23 [facility] Comment on above: Performed By: #### B MP #### [facility] ([id number]) [address] [place] [address] 41482 CBC AND AUTO DIFFon 06-13-20 24 ABSOLUTE BASOPHIL 0.1 X10E9/L Normal 0.0-0.[address] [facility] Comment on above: Performed By: #### C OVFLR #### [facility] ([id number]) [address] [place] [address] 97080 ABSOLUTE NEUTROPHIL 6.0 X10E9/L Normal 1.5-6.6 [facility] Comment on above: Performed By: #### C OVFLR #### [facility] ([id number]) [address] [place] [address] 83703 Basophils/100 WBC (Bld) 0.6 % Normal [facility] Comment on above: Performed By: #### C OVFLR #### [facility] ([id number]) [address] [place] [address] 45121 Eosinophils (Bld) [#/Vol] 0.1 10*3/uL Normal 0.0-0.4 [facility] Comment on above: Performed By: #### C OVFLR #### [facility] ([id number]) [address] [place] [address] 09693 Eosinophils/100 WBC (Bld) 1.2 % Normal [facility] Comment on above: Performed By: #### C OVFLR #### [facility] ([id number]) [address] [place] [address] 03931 Erythrocyte distribution width (RBC) [Ratio] 13.3 % Normal 11.5-15.0 [facility] Comment on above: Performed By: #### C OVFLR #### [facility] ([id number]) [address] [place] [address] 86330 Hematocrit (Bld) [Volume fraction] 36.0 % Normal 35-47 [facility] Comment on above: Performed By: #### C OVFLR #### [facility] ([id number]) [address] [place] [address] 13969 Hemoglobin (Bld) [Mass/Vol] 12.5 g/dL Normal 11.7-15.5 [facility] Comment on above: Performed By: #### C OVFLR #### [facility] ([id number]) [address] [place] [address] 85196 Lymphocytes (Bld) [#/Vol] 2.6 10*3/uL Normal 1.0-3.5 [facility] Comment on above: Performed By: #### C OVFLR #### [facility] ([id number]) [address] [place] [address] 35390 Lymphocytes/100 WBC (Bld) 28.1 % Normal [facility] Comment on above: Performed By: #### C OVFLR #### [facility] ([id number]) [address] [place] [address] 11330 MCH (RBC) [Entitic mass] 29.3 pg Normal 27-34 [facility] Comment on above: Performed By: #### C OVFLR #### [facility] ([id number]) [address] [place] [address] 00197 MCHC (RBC) [Mass/Vol] 34.6 g/dL Normal 32-36 [facility] Comment on above: Performed By: #### C OVFLR #### [facility] ([id number]) [address] [place] [address] 75162 MCV (RBC) [Entitic vol] 85 fL Normal 80-100 [facility] Comment on above: Performed By: #### C OVFLR #### [facility] ([id number]) [address] [place] [address] 76539 Monocytes (Bld) [#/Vol] 0.6 10*3/uL Normal 0-0.9 [facility] Comment on above: Performed By: #### C OVFLR #### [facility] ([id number]) [address] [place] [address] 00795 Monocytes/100 WBC (Bld) 5.9 % Normal [facility] Comment on above: Performed By: #### C OVFLR #### [facility] ([id number]) [address] [place] [address] 47815 Neutrophils/100 WBC (Bld) 64.2 % Normal [facility] Comment on above: Performed By: #### C OVFLR #### [facility] ([id number]) [address] [place] [address] 71905 Platelet mean volume (Bld) [Entitic vol] 6.8 fL Low 7-12 [facility] Comment on above: Performed By: #### C OVFLR #### [facility] ([id number]) [address] [place] [address] 12265 Platelets (Bld) [#/Vol] 402 10*3/uL Normal 150-450 [facility] Comment on above: Performed By: #### C OVFLR #### [facility] ([id number]) [address] [place] [address] 52982 RBC COUNT 4.26 X10E12/L Normal 3.80-5.20 [facility] Comment on above: Performed By: #### C OVFLR #### [facility] ([id number]) [address] [place] [address] 46230 WBC (Bld) [#/Vol] 9.3 10*3/uL Normal 4.0-11.[address] [facility] Comment on above: Performed By: #### C OVFLR #### [facility] ([id number]) [address] [place] [address] 52519 Fibrin D-dimer DDU (PPP) [Ma ss/Vol]on 06-13-2024 D DIMER 197 ng/mL DDU Normal <255 [facility] Comment on above: Result Comment: Results <255 ng/mL DDU: The presence of a VTE can safely be excluded with a negative D-Dimer result and Wells score. A negative result doesn't exclude the possibility of DIC. The test be repeated along with other diagnostic tests if the patient's symptoms persist or worsen. [email or web address] Performed By: #### C OVFLR #### [facility] ([id number]) [address] [place] [address] 98624 HCG ( test) Ql (U)o n 06-13-2024 Beta HCG ( test) Ql (U) Negative Normal NEG [facility] Comment on above: Performed By: #### B MP #### [facility] ([id number]) [address] [place] [address] 58701 MAGNESIUMon 06-13-2024 Magnesium [Mass/Vol] 2.1 mg/dL Normal 1.8-2.6 [facility] Comment on above: Performed By: #### B MP #### [facility] ([id number]) [address] [place] [address] 03280 PROTIME AND INRon 06-13-2024 INR Coag (PPP) [Relative time] 1.1 {INR} Normal 0.8-1.1 [facility] Comment on above: Performed By: #### B MP #### [facility] ([id number]) [address] [place] [address] 69005 PT Coag (PPP) [Time] 12.4 s Normal 9.8-13.2 [facility] Comment on above: Result Comment: NEW REFERENCE RANGE Performed By: #### B MP #### [facility] ([id number]) [address] [place] [address] 24469 THYROID PROFILEon 06-13-2024 Free T4 [Mass/Vol] 1.01 ng/dL Normal 0.61-1.[address] [facility] Comment on above: Performed By: #### B MP #### [facility] ([id number]) [address] [place] [address] 62805 TSH 2.16 uIU/mL Normal 0.49-4.67 [facility] Comment on above: Performed By: #### B MP #### [facility] ([id number]) [address] [place] [address] 79689 Troponin I.cardiac High sens itivity method [Mass/Vol]on 06-13-2024 1 HOUR TROP I, HIGH SENSITIVITY <2 Normal <16 [facility] Comment on above: Performed By: #### B MP #### [facility] ([id number]) [address] [place] [address] 60977 TROPONIN I, HIGH SENSITIVITY <2 Normal <16 [facility] Comment on above: Performed By: #### B MP #### [facility] ([id number]) [address] [place] [address] [place] [address] URN MACROSCOPIC NURon 2023 BILIRUBIN BETHANY Negative Normal NEG [facility] Comment on above: Performed By: #### B MP #### [facility] ([id number]) [address] [place] [address] [place] [address] BLOOD/HGB BETHANY Small Abnormal NEG [facility] Comment on above: Performed By: #### B MP #### [facility] ([id number]) [address] [place] [address] [place] [address] GLUCOSE BETHANY Negative Normal NEG [facility] Comment on above: Performed By: #### B MP #### [facility] ([id number]) [address] [place] [address] [place] [address] KETONES BETHANY Negative Normal NEG [facility] Comment on above: Performed By: #### B MP #### [facility] ([id number]) [address] [place] [address] [place] [address] LEUKOCYTE ESTERASE BETHANY Negative Normal NEG [facility] Comment on above: Performed By: #### B MP #### [facility] ([id number]) [address] [place] [address] [place] [address] NITRITE BETHANY Negative Normal NEG [facility] Comment on above: Performed By: #### B MP #### [facility] ([id number]) [address] [place] [address] [place] [address] PH BETHANY 5.5 Normal 5.0-8.5 [facility] Comment on above: Performed By: #### B MP #### [facility] ([id number]) [address] [place] [address] [place] [address] PROTEIN BETHANY Negative Normal NEG [facility] Comment on above: Performed By: #### B MP #### [facility] ([id number]) [address] [place] [address] SPECIFIC GRAVITY BETHANY 1.015 Normal 1.003-1 .03 5 [facility] Comment on above: Performed By: #### B MP #### [facility] ([id number]) [address] [place] [address] 16697 UROBILINOGEN BETHANY 0.2 eu/dL Normal <1.1 [facility] Comment on above: Performed By: #### B MP #### [facility] ([id number]) [address] [place] [address] 24066 XR CHEST 2 VWSon 06-13-2024 XR CHEST [...] Sutherland DO on 06/13/2024 5:14 PM Normal [facility] aPTT Coag (PPP) [Time]on aPTT Coag (Bld) [Time] 33 s Normal 26-37 [facility] Comment on above: Result Comment: NEW REFERENCE RANGE Performed By: #### B MP #### [facility] ([id number]) [address] [place] [address] 90448 Respiratory allergy panelon 05-29-2024 A. alternata IgE Qn (S) kU/L NINF - 0.10 kU/L [facility] Comment on above: Class 0: Normal A. fumigatus IgE Qn (S) kU/L NINF - 0.10 kU/L [facility] Comment on above: Class 0: Normal Nauruan house dust mite IgE Qn (S) kU/L NINF - 0.10 kU/L [facility] Comment on above: Class 0: Normal [...] Comment on above: Class 0: Normal [place] Pollen IgE Qn (S) kU/L NINF - 0.10 kU/L [facility] Comment on above: Class 0: Normal Cat dander IgE Qn (S) kU/L NINF - 0.10 kU/L [facility] Comment on above: Class 0: Normal Cocklebur IgE Qn (S) kU/L NINF - 0.10 kU/L [facility] Comment on above: Class 0: Normal Cockroach IgE Qn (S) kU/L NINF - 0.10 kU/L [facility] Comment on above: Class 0: Normal Common Pigweed IgE Qn (S) kU/L NINF - 0.10 kU/L [facility] Comment on above: Class 0: Normal Common Ragweed IgE Qn (S) kU/L NINF - 0.10 kU/L [facility] Comment on above: Class 0: Normal Potter IgE Qn (S) kU/L NINF - 0.10 kU/L [facility] Comment on above: Class 0: Normal Dog dander IgE Qn (S) kU/L NINF - 0.10 kU/L [facility] Comment on above: Class 0: Normal house dust mite IgE Qn (S) kU/L NINF - 0.10 kU/L [facility] Comment on above: Class 0: Normal Goosefoot IgE Qn (S) kU/L NINF - 0.10 kU/L [facility] Comment on above: Class 0: Normal IgE Qn 13 [IU]/L [facility] Heather grass IgE Qn (S) kU/L NINF - 0.10 kU/L [facility] Comment on above: Class [...] on above: Class 0: Normal Pecan or Edgar Tree IgE Qn (S) kU/L NINF - 0.10 kU/L [facility] Comment on above: Class 0: Normal Saltwort IgE Qn (S) kU/L NINF - 0.10 kU/L [facility] Comment on above: Class 0: Normal Sheep [place] IgE Qn (S) kU/L NINF - 0.10 [...] Qn (S) kU/L NINF - 0.10 kU/L [facility] Comment on above: Class 0: Normal [place] IgE Qn (S) kU/L NINF - 0.10 kU/L [facility] Comment on above: Class 0: Normal [facility] RESPIRATORY PANELon 05-28-20 24 ALTERNARIA ALTERNATA <0.10 Normal <0.10 [facility] Comment on above: Result Comment: Clas s 0: Normal Performed By: #### C OVFLR #### [facility] ([id number]) [address] [place] [address] [place] [address] ASPERGILLUS FUMIGATUS <0.10 Normal <0.10 [facility] Comment on above: Result Comment: Clas s 0: Normal Performed By: #### C OVFLR #### [facility] ([id number]) [address] [place] [address] [place] [address] BERMUDA GRASS <0.10 Normal <0.10 [facility] Comment on above: Result Comment: Clas s 0: Normal Performed By: #### C OVFLR #### [facility] ([id number]) [address] [place] [address], [place] [address] BOX ELDER <0.10 Normal <0.10 [facility] Comment on above: Result Comment: Clas s 0: Normal Performed By: #### C OVFLR #### [facility] ([id number]) [address] [place] [address] [place] [address] CAT DANDER <0.10 Normal <0.10 [facility] Comment on above: Result Comment: Clas s 0: Normal Performed By: #### C OVFLR #### [facility] ([id number]) [address] [place] [address] [place] [address] CLADOSPORIUM HERB <0.10 Normal <0.10 [facility] Comment on above: Result Comment: Clas s 0: Normal Performed By: #### C OVFLR #### [facility] ([id number]) [address] [place] [address], [place] [address] COCKLEBUR <0.10 Normal <0.10 [facility] Comment on above: Result Comment: Clas s 0: Normal Performed By: #### C OVFLR #### [facility] ([id number]) [address] [place] [address], [place] [address] COCKROACH <0.10 Normal <0.10 [facility] Comment on above: Result Comment: Clas s 0: Normal Performed By: #### C OVFLR #### [facility] ([id number]) [address] [place] [address], [place] [address] COMMON PIGWEED <0.10 Normal <0.10 [facility] Comment on above: Result Comment: Clas s 0: Normal Performed By: #### C OVFLR #### [facility] ([id number]) [address] [place] [address], [place] [address] COMMON RAGWEED <0.10 Normal <0.10 [facility] Comment on above: Result Comment: Clas s 0: Normal Performed By: #### C OVFLR #### [facility] ([id number]) [address] [place] [address], [place] [address] COMMON SILVER BIRCH <0.10 Normal <0.10 [facility] Comment on above: Result Comment: Clas s 0: Normal Performed By: #### C OVFLR #### [facility] ([id number]) [address] [place] [address], [place] [address] [place]OTTONWOOD <0.10 Normal <0.10 [facility] Comment on above: Result Comment: Clas s 0: Normal Performed By: #### C OVFLR #### [facility] ([id number]) [address] [place] [address], [place] [address] DERMATOPH FARINAE <0.10 Normal <0.10 [facility] Comment on above: Result Comment: Clas s 0: Normal Performed By: #### C OVFLR #### [facility] ([id number]) [address] [place] [address] [place] [address] DERMATOPH PTERONYSS <0.10 Normal <0.10 [facility] Comment on above: Result Comment: Clas s 0: Normal Performed By: #### C OVFLR #### [facility] ([id number]) [address] [place] [address] [place] [address] DOG DANDER <0.10 Normal <0.10 [facility] Comment on above: Result Comment: Clas s 0: Normal Performed By: #### C OVFLR #### [facility] ([id number]) [address] [place] [address] [place] [address] ELM <0.10 Normal <0.10 [facility] Comment on above: Result Comment: Clas s 0: Normal Performed By: #### C OVFLR #### [facility] ([id number]) [address] [place] [address] [place] [address] G[place]SE[place]OT [place] QTR <0.10 Normal <0.[address] [facility] Comment on above: Result Comment: Clas s 0: Normal Performed By: #### C OVFLR #### [facility] ([id number]) [address] [place] [address] [place] [address] IGE 13 IU/mL Normal 0-165 [facility] Comment on above: Performed By: #### C OVFLR #### [facility] ([id number]) [address] [place] [address] [place] [address] HEATHER GRASS <0.10 Normal <0.10 [facility] Comment on above: Result Comment: Clas s 0: Normal Performed By: #### C OVFLR #### [facility] ([id number]) [address] [place] [address] [place] [address] MAPLE LEAF [place] <0.10 Normal <0.10 [facility] Comment on above: Result Comment: Clas s 0: Normal Performed By: #### C OVFLR #### [facility] ([id number]) [address] [place] [address] [place] [address] MEADOW GRASS [place] TERRA <0.10 Normal <0.10 [facility] Comment on above: Result Comment: Clas s 0: Normal Performed By: #### C OVFLR #### [facility] ([id number]) [address] [place] [address], [place] [address] M[place]AIN JUNIPER <0.10 Normal <0.10 [facility] Comment on above: Result Comment: Clas s 0: Normal Performed By: #### C OVFLR #### [facility] ([id number]) [address] [place] [address] [place] [address] MOUSE URINE PROTEINS <0.10 Normal <0.10 [facility] Comment on above: Result Comment: Clas s 0: Normal Performed By: #### C OVFLR #### [facility] ([id number]) [address] [place] [address] [place] [address] MUGWORT <0.10 Normal <0.10 [facility] Comment on above: Result Comment: Clas s 0: Normal Performed By: #### C OVFLR #### [facility] ([id number]) [address] [place] [address] [place] [address] MULBERRY TREE <0.10 Normal <0.10 [facility] Comment on above: Result Comment: Clas s 0: Normal Performed By: #### C OVFLR #### [facility] ([id number]) [address] [place] [address] [place] [address] NETTLE <0.10 Normal <0.10 [facility] Comment on above: Result Comment: Clas s 0: Normal Performed By: #### C OVFLR #### [facility] ([id number]) [address] [place] [address] [place] [address] OAK <0.10 Normal <0.10 [facility] Comment on above: Result Comment: Clas s 0: Normal Performed By: #### C OVFLR #### [facility] ([id number]) [address] [place] [address] [place] [address] PECAN HICKORY TREE <0.10 Normal <0.[address] [facility] Comment on above: Result Comment: Clas s 0: Normal Performed By: #### C OVFLR #### [facility] ([id number]) [address] [place] [address] [place] [address] PENICILLIUM CHRYSOGENUM <0.10 Normal <0.10 [facility] Comment on above: Result Comment: Clas s 0: Normal Performed By: #### C OVFLR #### [facility] ([id number]) [address] [place] [address] [place] [address] ROUGH MARSHELDER <0.10 Normal <0.10 [facility] Comment on above: Result Comment: Clas s 0: Normal Performed By: #### C OVFLR #### [facility] ([id number]) [address] [place] [address] [place] [address] [place] KEVAN THISTLE <0.10 Normal <0.10 [facility] Comment on above: Result Comment: Clas s 0: Normal Performed By: #### C OVFLR #### [facility] ([id number]) [address] [place] [address] [place] [address] SHEEP SORREL <0.10 Normal <0.10 [facility] Comment on above: Result Comment: Clas s 0: Normal Performed By: #### C OVFLR #### [facility] ([id number]) [address] [place] [id number] GUERO <0.10 Normal <0.10 [facility] Comment on above: Result Comment: Clas s 0: Normal Performed By: #### C OVFLR #### [facility] ([id number]) [address] [place] [id number] W[place] TREE POLLEN <0.10 Normal <0.[address] [facility] Comment on above: Result Comment: Clas s 0: Normal Performed By: #### C OVFLR #### [facility] ([id number]) [address] [place] [address] 84358 WHITE JOS <0.10 Normal <0.10 [facility] Comment on above: Result Comment: Clas s 0: Normal Performed By: #### C OVFLR #### [facility] ([id number]) [address] [place] [address] 40435 MR head/brain wo/w conon MR head/brain wo/w con [facility] [place] [address] MRI Report Signed Patient: Jennifer Aguillon MR#: [id number] 8 : 1995 Acct:[id number] Age/Sex: 29 / F ADM Date: 05/11/24 Loc: Room: Type: [facility] Attending Dr: Kenia LIN Copies to: [...] Luis Baldwin M.D.05/11/2024 11:05 PM Dictation Location: [place] [address] Transcribed By: [facility] 05/11/242304 Dictated By: Juan Luis Baldwin DO 05/11/242301 Signed By: 05/11/242304 Normal [facility] MR lumbar spine wo conon MR lumbar spine wo con [facility] [place] [address] MRI Report Signed Patient: Jennifer Aguillon MR#: [id number] 8 : 1995 Acct:[id number] Age/Sex: 29 / F ADM Date: 05/11/24 Loc: MR Room: Type: [facility] Attending Dr: Kenia LIN Copies to: [...] Luis Baldwin M.D.05/11/2024 11:02 PM Dictation Location: [place] [address] Transcribed By: [facility] 05/11/242301 Dictated By: Juan Luis Baldwin DO 05/11/242256 Signed By: 05/11/242301 Normal [facility] XR CHEST 2 VWSon [...] Vincent MD on 04/28/2024 2:10 PM Normal [facility] ECG 12 lead ECGon 03-18-2024 ECG 12 lead ECG [facility] [place] [address] [place] [address] Electrocardiograph Report Signed Patient: Jennifer Aguillon MR#: [id number] 8 : 1995 Acct:[id number] Age/Sex: 28 / F ADM Date: 03/18/24 Loc: ER Room: Type: [facility] ER Attending Dr: Ordering Provider: Estefani [...] ECGs available Confirmed by ESTEFANI ALEXANDER MD ([id number]) on 03/20/2024 5:58:53 AM Referred By: Electronically Signed By: ESTEFANI ALEXANDER MD Transcribed By: MUS Signed By Estefani Alexander Jr, MD 0558 Normal [facility] EMG 2 Extremitieson 03-05-20 Normal [facility] Influenza virus B Ag [Presen ce] in Upper respiratory specimen by Rapid immunoassayon 03-05-2024 FLUBV Ag IA.rapid Ql (Nph) Negative [facility] NVC 9-10 Nerveson 03-05-2024 Normal [facility] No Panel Informationon 03-05 Influenza Type A (Rapid) Negative [facility] POC SARS CoV-2 Antigen Negative [facility] Troponin I.cardiac High sens itivity method [Mass/Vol]on 02-14-2024 1 HOUR TROP I, HIGH SENSITIVITY 3 ng/L Normal <16 [facility] Comment on above: Performed By: #### C OVFLR #### [facility] ([id number]) [address] [place] [address] 70880 CBC AND AUTO DIFFon 02-13-20 ABSOLUTE BASOPHIL 0.0 X10E9/L Normal 0.0-0.[address] [facility] Comment on above: Performed By: #### C BCA CMP, 86475-0, 26320-6 #### [facility] ([id number]) [address] [place] [address] 94349 ABSOLUTE NEUTROPHIL 7.5 X10E9/L High 1.5-6.6 [facility] Comment on above: Performed By: #### C BCA, CMP, 55943-1, 88261-6 #### [facility] ([id number]) [address] [place] [address] Basophils/100 WBC (Bld) 0.3 % Normal [facility] Comment on above: Performed By: #### Keyla REDMAN, CMP, , 29738-1 #### [facility] ([id number]) [address] [place] [address] 69154 Eosinophils (Bld) [#/Vol] 0.1 10*3/uL Normal 0.0-0.4 [facility] Comment on above: Performed By: #### Keyla REDMAN, CMP, , 04130-3 #### [facility] ([id number]) [address] [place] [address] 28092 Eosinophils/100 WBC (Bld) 0.8 % Normal [facility] Comment on above: Performed By: #### Keyla REDMAN, CMP, , 13254-9 #### [facility] ([id number]) [address] [place] [address] 63357 Erythrocyte distribution width (RBC) [Ratio] 13.7 % Normal 11.5-15.0 [facility] Comment on above: Performed By: #### Keyla REDMAN, CMP, , 74738-1 #### [facility] ([id number]) [address] [place] [address] 98521 Hematocrit (Bld) [Volume fraction] 35.8 % Normal 35-47 [facility] Comment on above: Performed By: #### Keyla REDMAN, CMP, , 19144-6 #### [facility] ([id number]) [address] [place] [address] 20327 Hemoglobin (Bld) [Mass/Vol] 12.5 g/dL Normal 11.7-15.5 [facility] Comment on above: Performed By: #### Keyla REDMAN, CMP, , 37760-3 #### [facility] ([id number]) [address] [place] [address] 58979 Lymphocytes (Bld) [#/Vol] 3.4 10*3/uL Normal 1.0-3.5 [facility] Comment on above: Performed By: #### C FEROZ, CMP, , 02903-8 #### [facility] ([id number]) [address] [place] [address] 90980 Lymphocytes/100 WBC (Bld) 29.4 % Normal [facility] Comment on above: Performed By: #### C FEROZ, CMP, , 16076-2 #### [facility] ([id number]) [address] [place] [address] 66363 MCH (RBC) [Entitic mass] 29.8 pg Normal 27-34 [facility] Comment on above: Performed By: #### Keyla REDMAN, CMP, , 30269-8 #### [facility] ([id number]) [address] [place] [address] 62186 MCHC (RBC) [Mass/Vol] 35.0 g/dL Normal 32-36 [facility] Comment on above: Performed By: #### C FEROZ, CMP, , 54839-3 #### [facility] ([id number]) [address] [place] [address] 00237 MCV (RBC) [Entitic vol] 85 fL Normal 80-100 [facility] Comment on above: Performed By: #### Keyla BCA, CMP, , 15575-8 #### [facility] ([id number]) [address] [place] [address] 08645 Monocytes (Bld) [#/Vol] 0.6 10*3/uL Normal 0-0.9 [facility] Comment on above: Performed By: #### Keyla REDMAN, CMP, , 96872-0 #### [facility] ([id number]) [address] [place] [address] 97191 Monocytes/100 WBC (Bld) 4.8 % Normal [facility] Comment on above: Performed By: #### C BCA, CMP, , 91510-8 #### [facility] ([id number]) [address] [place] [address] 85433 Neutrophils/100 WBC (Bld) 64.7 % Normal [facility] Comment on above: Performed By: #### C FEROZ, CMP, , 89672-4 #### [facility] ([id number]) [address] [place] [address] 28682 Platelet mean volume (Bld) [Entitic vol] 6.6 fL Low 7-12 [facility] Comment on above: Performed By: #### Keyla BCA, CMP, , 82495-3 #### [facility] ([id number]) [address] [place] [address] 38939 Platelets (Bld) [#/Vol] 377 10*3/uL Normal 150-450 [facility] Comment on above: Performed By: #### C BCA, CMP, , 64192-0 #### [facility] ([id number]) [address] [place] [address] 51527 RBC COUNT 4.21 X10E12/L Normal 3.80-5.20 [facility] Comment on above: Performed By: #### C BCA, CMP, , 22119-4 #### [facility] ([id number]) [address] [place] [address] 68412 WBC (Bld) [#/Vol] 11.6 10*3/uL High 4.0-11.0 [facility] Comment on above: Performed By: #### C BCA, CMP, , 61475-5 #### [facility] ([id number]) [address] [place] [address] 31365 COMPREHENSIVE METABOLIC PANE Kit 02-13-2024 Albumin [Mass/Vol] 4.1 g/dL Normal 3.2-5.[address] [facility] Comment on above: Performed By: #### C BCA, CMP, , 32373-9 #### [facility] ([id number]) [address] [place] [address] 92537 ALP [Catalytic activity/Vol] 158 U/L High 39-130 [facility] Comment on above: Performed By: #### C BCA, CMP, , 32958-4 #### [facility] ([id number]) [address] [place] [address] 29409 ALT [Catalytic activity/Vol] 46 U/L High 0-31 [facility] Comment on above: Performed By: #### C BCA, CMP, , 37729-1 #### [facility] ([id number]) [address] [place] [address] 71043 Anion gap [Moles/Vol] 7 mmol/L Normal 5-15 [facility] Comment on above: Performed By: #### C BCA, CMP, , 98084-4 #### [facility] ([id number]) [address] [place] [address] 15159 AST [Catalytic activity/Vol] 28 U/L Normal 0-41 [facility] Comment on above: Performed By: #### C BCA, CMP, , 90330-9 #### [facility] ([id number]) [address] [place] [address] 62054 Bilirubin [Mass/Vol] 0.5 mg/dL Normal 0.3-1.2 [facility] Comment on above: Performed By: #### C BCA, CMP, , 22753-9 #### [facility] ([id number]) [address] [place] [address] 96086 Calcium [Mass/Vol] 9.0 mg/dL Normal 8.5-10.[address] [facility] Comment on above: Performed By: #### C BCA, CMP, , 45590-7 #### [facility] ([id number]) [address] [place] [address] 27306 Chloride [Moles/Vol] 106 mmol/L Normal 98-109 [facility] Comment on above: Performed By: #### C BCA, CMP, , 06541-7 #### [facility] ([id number]) [address] [place] [address] 36237 CO2 [Moles/Vol] 24 mmol/L Normal 22-32 [facility] Comment on above: Performed By: #### C BCA, CMP, , 62985-1 #### [facility] ([id number]) [address] [place] [address] 57540 Creatinine [Mass/Vol] 0.63 mg/dL Normal 0.40-1.00 [facility] Comment on above: Result Comment: METH OD TRACEABLE TO IDMS STANDARD Performed By: #### C BCA, CMP, , 85097-1 #### [facility] ([id number]) [address] [place] [address] 78648 eGFR (CKD-EPI) NON-RACE DEPENDENT >90 Normal >59 [facility] Comment on above: Result Comment: Reported eGFR is based on the CKD-EPI 2021 equation that does not use a race coefficient. Performed By: #### C BCA, CMP, , 61234-8 #### [facility] ([id number]) [address] [place] [address] 54643 Glucose [Mass/Vol] 98 mg/dL Normal 65-[address] [facility] Comment on above: Performed By: #### C FEROZ [facility], , 37617-4 #### [facility] ([id number]) [address] [place] [address] 33541 Potassium [Moles/Vol] 3.1 mmol/L Low 3.5-5.0 [facility] Comment on above: Performed By: #### C FEROZ [facility], , 73332-4 #### [facility] ([id number]) [address] [place] [address] 10135 Protein [Mass/Vol] 8.0 g/dL Normal 6.0-8.[address] [facility] Comment on above: Performed By: #### C FEROZ [facility], , 64661-8 #### [facility] ([id number]) [address] [place] [address] 03495 Sodium [Moles/Vol] 137 mmol/L Normal 134-[address] [facility] Comment on above: Performed By: #### C FEROZ [facility], , 89758-5 #### [facility] ([id number]) [address] [place] [address] 45047 Urea nitrogen [Mass/Vol] 7 mg/dL Normal 5-23 [facility] Comment on above: Performed By: #### C FEROZ [facility], , 44752-6 #### [facility] ([id number]) [address] [place] [address] 71042 HCG ( test) Ql (U)o n 02-13-2024 Beta HCG ( test) Ql (U) Negative Normal NEG [facility] Comment on above: Performed By: #### C OVFLR #### [facility] ([id number]) [address] [place] [address] 28793 MAGNESIUMon 02-13-2024 Magnesium [Mass/Vol] 1.9 mg/dL Normal 1.8-2.6 [facility] Comment on above: Performed By: #### C OVFLR #### [facility] ([id number]) [address] [place] [address] 94096 Troponin I.cardiac High sens itivity method [Mass/Vol]on 02-13-2024 TROPONIN I, HIGH SENSITIVITY 3 ng/L Normal <16 [facility] Comment on above: Performed By: #### C OVFLR #### [facility] ([id number]) [address] [place] [address] 25399 URN MACROSCOPIC NURon 2023 BILIRUBIN BETHANY Negative Normal NEG [facility] Comment on above: Performed By: #### C OVFLR #### [facility] ([id number]) [address] [place] [address] 78967 BLOOD/HGB BETHANY Negative Normal NEG [facility] Comment on above: Performed By: #### C OVFLR #### [facility] ([id number]) [address] [place] [address] 77909 GLUCOSE BETHANY Negative Normal NEG [facility] Comment on above: Performed By: #### C OVFLR #### [facility] ([id number]) [address] [place] [address] 42954 KETONES BETHANY Negative Normal NEG [facility] Comment on above: Performed By: #### C OVFLR #### [facility] ([id number]) [address] [place] [address] 24335 LEUKOCYTE ESTERASE BETHANY Negative Normal NEG [facility] Comment on above: Performed By: #### C OVFLR #### [facility] ([id number]) [address] [place] [address] 76364 NITRITE BETHANY Negative Normal NEG [facility] Comment on above: Performed By: #### C OVFLR #### [facility] ([id number]) [address] [place] [address] 31275 PH BETHANY 6.5 Normal 5.0-8.5 [facility] Comment on above: Performed By: #### C OVFLR #### [facility] ([id number]) [address] [place] [address] 95201 PROTEIN BETHANY Negative Normal NEG [facility] Comment on above: Performed By: #### C OVFLR #### [facility] ([id number]) [address] [place] [address] 70987 SPECIFIC GRAVITY BETHANY 1.015 Normal 1.003-[address] [place] [address] Comment on above: Performed By: #### C OVFLR #### [facility] ([id number]) [address] [place] [address] 72254 UROBILINOGEN BETHANY 0.2 eu/dL Normal <1.1 [facility] Comment on above: Performed By: #### C OVFLR #### [facility] ([id number]) [address] [place] [address] 46536 XR CHEST 2 VWSon 02-13-2024 XR CHEST 2 VWS XR CHEST 2 VWS Chest 2 views History: Difficulty breathing SOB Comparison: 11/25/2023 Findings: Chest 2 views. Stable cardiomediastinal silhouette. No focal opacity, effusion or pneumothorax. Impression: No evident acute cardiopulmonary process. Finalized by Jennifer Howe MD on 02/13/2024 11:22 PM Normal [facility] BASIC METABOLIC PANLon 12-28 Anion gap [Moles/Vol] 4 mmol/L Low 5-15 [facility] Comment on above: Performed By: #### C BCA, BMP, 12506-1 #### [facility] ([id number]) [address] [place] [address] 09054 Calcium [Mass/Vol] 8.4 mg/dL Low 8.5-10.[address] [facility] Comment on above: Performed By: #### C FEROZ [facility], #### [facility] ([id number]) [address] [place] [address] 60084 Chloride [Moles/Vol] 106 mmol/L Normal 98-109 [facility] Comment on above: Performed By: #### C FEROZ [facility], #### [facility] ([id number]) [address] [place] [address] 78301 CO2 [Moles/Vol] 24 mmol/L Normal 22-32 [facility] Comment on above: Performed By: #### C YOLANDA REDMAN, #### [facility] ([id number]) [address] [place] [address] 35058 Creatinine [Mass/Vol] 0.65 mg/dL Normal 0.40-1.00 [facility] Comment on above: Result Comment: METH OD TRACEABLE TO IDMS STANDARD Performed By: #### C FEROZ [facility], 25112-1 #### [facility] ([id number]) [address] [place] [address] 92170 eGFR (CKD-EPI) NON-RACE DEPENDENT >90 Normal >59 [facility] Comment on above: Result Comment: Reported eGFR is based on the CKD-EPI 1 equation that does not use a race coefficient. Performed By: #### C YOLANDA REDMAN, #### [facility] ([id number]) [address] [place] [address] 96128 Glucose [Mass/Vol] 101 mg/dL High 65-[address] [facility] Comment on above: Performed By: #### C YOLANDA REDMAN, #### [facility] ([id number]) [address] [place] [address] 03965 Potassium [Moles/Vol] 3.8 mmol/L Normal 3.5-5.0 [facility] Comment on above: Performed By: #### C FEROZ [facility], #### [facility] ([id number]) [address] [place] [address] 13864 Sodium [Moles/Vol] 134 mmol/L Normal 134-[address] [facility] Comment on above: Performed By: #### Keyla REDMAN [facility], #### [facility] ([id number]) [address] [place] [address] 81862 Urea nitrogen [Mass/Vol] 12 mg/dL Normal 5-23 [facility] Comment on above: Performed By: #### Keyla REDMAN [facility], #### [facility] ([id number]) [address] [place] [address] 88378 CBC AND AUTO DIFFon 12-29-19 24 ABSOLUTE BASOPHIL 0.1 X10E9/L Normal 0.0-0.[address] [facility] Comment on above: Performed By: #### Keyla REDMAN [facility], #### [facility] ([id number]) [address] [place] [address] 26073 ABSOLUTE NEUTROPHIL 6.1 X10E9/L Normal 1.5-6.6 [facility] Comment on above: Performed By: #### Keyal REDMAN [facility], #### [facility] ([id number]) [address] [place] [address] 09863 Basophils/100 WBC (Bld) 0.7 % Normal [facility] Comment on above: Performed By: #### Keyla REDMAN [facility], #### [facility] ([id number]) [address] [place] [address] 58764 Eosinophils (Bld) [#/Vol] 0.2 10*3/uL Normal 0.0-0.4 [facility] Comment on above: Performed By: #### C FEROZ [facility], #### [facility] ([id number]) [address] [place] [address] 42277 Eosinophils/100 WBC (Bld) 1.9 % Normal [facility] Comment on above: Performed By: #### Keyla REDMAN [facility], #### [facility] ([id number]) [address] [place] [address] 64885 Erythrocyte distribution width (RBC) [Ratio] 13.6 % Normal 11.5-15.0 [facility] Comment on above: Performed By: #### Keyla REDMAN [facility], #### [facility] ([id number]) [address] [place] [address] 79037 Hematocrit (Bld) [Volume fraction] 33.7 % Low 35-47 [facility] Comment on above: Performed By: #### Keyla REDMAN [facility], #### [facility] ([id number]) [address] [place] [address] 79304 Hemoglobin (Bld) [Mass/Vol] 11.7 g/dL Normal 11.7-15.5 [facility] Comment on above: Performed By: #### YOLANDA Ramires BCA, #### [facility] ([id number]) [address] [place] [address] 23783 Lymphocytes (Bld) [#/Vol] 3.0 10*3/uL Normal 1.0-3.5 [facility] Comment on above: Performed By: #### C YOLANDA REDMAN, #### [facility] ([id number]) [address] [place] [address] 17543 Lymphocytes/100 WBC (Bld) 29.8 % Normal [facility] Comment on above: Performed By: #### YOLANDA Ramires BCA, #### [facility] ([id number]) [address] [place] [address] 88049 MCH (RBC) [Entitic mass] 29.2 pg Normal 27-34 [facility] Comment on above: Performed By: #### YOLANDA Ramires BCA, #### [facility] ([id number]) [address] [place] [address] 68025 MCHC (RBC) [Mass/Vol] 34.6 g/dL Normal 32-36 [facility] Comment on above: Performed By: #### YOLANDA Ramires BCA, #### [facility] ([id number]) [address] [place] [address] 84850 MCV (RBC) [Entitic vol] 84 fL Normal 80-100 [facility] Comment on above: Performed By: #### YOLANDA Ramires BCA, #### [facility] ([id number]) [address] [place] [address] 85238 Monocytes (Bld) [#/Vol] 0.6 10*3/uL Normal 0-0.9 [facility] Comment on above: Performed By: #### Keyla REDMAN [facility], #### [facility] ([id number]) [address] [place] [address] 37930 Monocytes/100 WBC (Bld) 6.5 % Normal [facility] Comment on above: Performed By: #### YOLANDA Ramires BCA, #### [facility] ([id number]) [address] [place] [address] 43675 Neutrophils/100 WBC (Bld) 61.1 % Normal [facility] Comment on above: Performed By: #### YOLANDA Ramires BCA, #### [facility] ([id number]) [address] [place] [address] 70563 Platelet mean volume (Bld) [Entitic vol] 6.8 fL Low 7-12 [facility] Comment on above: Performed By: #### C YOLANDA REDMAN, 01891-8 #### [facility] ([id number]) [address] [place] [address] 95693 Platelets (Bld) [#/Vol] 307 10*3/uL Normal 150-450 [facility] Comment on above: Performed By: #### YOLANDA Ramires BCA, #### [facility] ([id number]) [address] [place] [address] 41914 RBC COUNT 4.00 X10E12/L Normal 3.80-5.20 [facility] Comment on above: Performed By: #### YOLANDA Ramires BCA, 80512-8 #### [facility] ([id number]) [address] [place] [address] 00661 WBC (Bld) [#/Vol] 10.0 10*3/uL Normal 4.0-11.0 [facility] Comment on above: Performed By: #### Keyla REDMAN [facility], 76318-3 #### [facility] ([id number]) [address] [place] [address] 28641 MAGNESIUMon 12-29-2023 Magnesium [Mass/Vol] 2.0 mg/dL Normal 1.8-2.6 [facility] Comment on above: Performed By: #### Keyla REDMAN [facility], 80367-4 #### [facility] ([id number]) [address] [place] [address] 18464 HCG ( test) Ql (U)o n 12-11-2023 Beta HCG ( test) Ql (U) Negative Normal NEG [facility] Comment on above: Performed By: #### 2 106-3 #### [facility] ([id number]) [address] [place] [address] 83922 URN MACROSCOPIC NURon 2023 BILIRUBIN BETHANY Negative Normal NEG [facility] Comment on above: Performed By: #### N UM #### [facility] ([id number]) [address] [place] [address] 48040 BLOOD/HGB BETHANY Negative Normal NEG [facility] Comment on above: Performed By: #### N UM #### [facility] ([id number]) [address] [place] [address] [place] [address] GLUCOSE BETH[place] Negative Normal NEG [facility] Comment on above: Performed By: #### N UM #### [facility] ([id number]) [address] [place] [address] 34749 KETONES BETHANY Negative Normal NEG [facility] Comment on above: Performed By: #### N UM #### [facility] ([id number]) [address] [place] [address] [place] [address] LEUKOCYTE ESTERASE BETHANY Negative Normal NEG [facility] Comment on above: Performed By: #### N UM #### [facility] ([id number]) [address] [place] [address] [place] [address] NITRITE BETHANY Negative Normal NEG [facility] Comment on above: Performed By: #### N UM #### [facility] ([id number]) [address] [place] [address] [place] [address] PH BETHANY 6.0 Normal 5.0-8.5 [facility] Comment on above: Performed By: #### N UM #### [facility] ([id number]) [address] [place] [address] PROTEIN BETHANY Negative Normal NEG [facility] Comment on above: Performed By: #### N UM #### [facility] ([id number]) [address] [place] [address] [place] [address] SPECIFIC GRAVITY BETHANY 1.015 Normal 1.003-[address] [place] [address] Comment on above: Performed By: #### N UM #### [facility] ([id number]) [address] [place] [address] UROBILINOGEN BETHANY 0.2 eu/dL Normal <1.1 [facility] Comment on above: Performed By: #### N UM #### [facility] ([id number]) [address] [place] [address] BASIC METABOLIC PANLon 11-24 Anion gap [Moles/Vol] 13 mmol/L Normal 5-15 [facility] Comment on above: Performed By: #### B MP #### [facility] ([id number]) [address] [place] [address] 647[address] Calcium [Mass/Vol] 9.0 mg/dL Normal 8.5-10.[address] [facility] Comment on above: Performed By: #### B MP #### [facility] ([id number]) [address] [place] [address] Chloride [Moles/Vol] 103 mmol/L Normal 98-109 [facility] Comment on above: Performed By: #### B MP #### [facility] ([id number]) [address] [place] [address]72 CO2 [Moles/Vol] 20 mmol/L Low 22-32 [facility] Comment on above: Performed By: #### B MP #### [facility] ([id number]) [address] [place] [address] 14261 Creatinine [Mass/Vol] 0.69 mg/dL Normal 0.40-1.00 [facility] Comment on above: Result Comment: METH OD TRACEABLE TO IDMS STANDARD Performed By: #### B MP #### [facility] ([id number]) [address] [place] [address] 27627 eGFR (CKD-EPI) NON-RACE DEPENDENT >90 Normal >59 [facility] Comment on above: Result Comment: Reported eGFR is based on the CKD-EPI 2020 equation that does not use a race coefficient. Performed By: #### B MP #### [facility] ([id number]) [address] [place] [address] 52542 Glucose [Mass/Vol] 95 mg/dL Normal 65-[address] [facility] Comment on above: Performed By: #### B MP #### [facility] ([id number]) [address] [place] [address] 58856 Potassium [Moles/Vol] 2.9 mmol/L Low 3.5-5.0 [facility] Comment on above: Performed By: #### B MP #### [facility] ([id number]) [address] [place] [address] 69038 Sodium [Moles/Vol] 136 mmol/L Normal 134-[address] [facility] Comment on above: Performed By: #### B MP #### [facility] ([id number]) [address] [place] [address] 27124 Urea nitrogen [Mass/Vol] 7 mg/dL Normal 5-23 [facility] Comment on above: Performed By: #### B MP #### [facility] ([id number]) [address] [place] [address] 28083 SARS/FLU A+B/RSV by NAAT/Mol ularon 11-25-2023 SARS/FLU A+B/RSV by NAAT/Molecular FLU A [...] operators who are performing tests using either [employer] or [employer] systems and is limited to laboratories that [...] repeat. Fact Sheet for Healthcare Providers: https://www.fda.gov/media /268642/download Fact Sheet for Patients: https://www.fda.gov/media /601822/download Normal [facility] Comment on above: Performed By: #### C OVFLR #### [facility] ([id number]) [address] [place] [address] 57979 Provider Letteron 02-25-2023 Provider Letter (Inserted Image. Swapna ble to display) February 25, 2023 JENNIFER CARMEN [address] [place] [id number] : 1995 Dear Jennifer , We have been trying to reach you with no success. It is important that you return our call regarding your referral to our office by Jennifer upon receiving this letter. Also, at the time of your call, please provide us with your current information. Thank you for your prompt attention to this matter. Sincerely, [facility] [phone] Normal [facility] Physician Referralon 023 Physician Referral [phone] [id number] Normal [facility] Urinalysis - AUTOMATEDon Appearance (U) cloudy [employer] Other Bilirubin Ql (U) Negative [employer] Other Color (U) yellow [employer] Other Glucose Ql (U) Negative [employer] Other Hemoglobin Ql (U) Trace-intact [employer] Other Ketones Ql (U) Negative [employer] Other Leukocyte esterase Test strip Ql (U) Trace [employer] Other Nitrite Ql (U) Negative [employer] Other pH (U) 6.0 [pH] [employer] Other Protein Ql (U) Negative [employer] Other Specific gravity (U) [Rel density] <=1.005 [employer] Other Urobilinogen (U) [Mass/Vol] 0.2 mg/dL [employer] Other Urinalysis - AUTOMATED No rt [employer] Other Quick Strepon 04-26-2022 S. pyogenes Org specific cx Ql (Throat) Negative [employer] Other Quick Strep [employer] Other SARS-CoV-2 (COVID-19) RNA NA A+probe Ql (Resp)on 04-23-2022 SARS-CoV-2 (COVID-19) RNA EMMANUELLE+probe Ql (Unsp spec) Negative [employer] Other [facility]on 03-16 SARS-CoV-2 (COVID-19) RNA EMMANUELLE+probe Ql (Unsp [...] for this test is supported by the [place] of Health and Human Service's (HHS's) declaration [...] BC #### [facility] [address] [place] [address] Dr. Katrin Ceja SARS-CoV-2 (COVID-19) RNA NA A+probe Ql (Resp)on 03-27-2022 SARS-CoV-2 (COVID-19) RNA EMMANUELLE+probe Ql (Unsp spec) Negative [employer] Other CBC AUTO DIFFon 03-22-2022 BASO # 0.0 103/ul Normal 0.0-0.1 [facility] Comment on above: Performed By: #### L IPID, CMP #### [facility] [address] [place] [address] Dr. Katrin Ceja Basophils/100 WBC (Bld) 0.3 % Normal 0.2-2.[address] [facility] Comment on above: Performed By: #### L IPID, CMP #### [facility] [address] [place] [address] Dr. Katrin Ceja EO # 0.2 103/ul Normal 0.0-0.7 [facility] Comment on above: Performed By: #### L IPID, CMP #### [facility] [address] [place] [address] Dr. Katrin Ceja Eosinophils/100 WBC (Bld) 2.2 % Normal 0.9-7.0 [facility] Comment on above: Performed By: #### L IPID, CMP #### [facility] [address] [place] [address] Dr. Katrin Ceja Erythrocyte distribution width (RBC) [Ratio] 11.9 % Normal 11.0-15.0 [facility] Comment on above: Performed By: #### L IPID, CMP #### [facility] [address] [place] [address] Dr. Katrin Ceja Hematocrit (Bld) [Volume fraction] 36.4 % Normal 36.0-48.[address] [facility] Comment on above: Performed By: #### L IPID, CMP #### [facility] [address] [place] [address] Dr. Katrin Ceja Hemoglobin (Bld) [Mass/Vol] 12.6 g/dL Normal 12.0-16.[address] [facility] Comment on above: Performed By: #### L IPID, CMP #### [facility] [address] [place] [address] Dr. Katrin Ceja IG # 0.03 10e3/ul Normal 0.00-0.03 [facility] Comment on above: Performed By: #### L IPID, CMP #### [facility] [address] [place] [address] Dr. Katrin Ceja IG % 0.3 % Normal 0.0-0.5 [facility] Comment on above: Performed By: #### L IPID, CMP #### [facility] [address] [place] [address] Dr. Katrin Ceja LYMPH # 3.5 103/ul Normal 1.2-3.8 [facility] Comment on above: Performed By: #### L IPID, CMP #### [facility] [address] [place] [address] Dr. Katrin Ceja Lymphocytes/100 WBC (Bld) 33.1 % Normal 20.5-60.[address] [facility] Comment on above: Performed By: #### L IPID, CMP #### [facility] [address] [place] [address] Dr. Katrin Ceja MANUAL DIFF REQ NO Normal [facility] Comment on above: Performed By: #### L IPID, CMP #### [facility] [address] [place] [address] Dr. Katrin Ceja MCH (RBC) [Entitic mass] 29.9 pg Normal 26.7-34.[address] [facility] Comment on above: Performed By: #### L IPID, CMP #### [facility] [address] [place] [address] Dr. Katrin Ceja MCHC (RBC) [Mass/Vol] 34.6 g/dL Normal 29.9-35.[address] [facility] Comment on above: Performed By: #### L IPID, CMP #### [facility] [address] [place] [address] Dr. Katrin Ceja MCV (RBC) [Entitic vol] 86.5 fL Normal 81.0-99.[address] [facility] Comment on above: Performed By: #### L IPID, CMP #### [facility] [address] [place] [address] Dr. Katrin Ceja MONO # 0.7 103/ul Normal 0.3-0.[address] [facility] Comment on above: Performed By: #### L IPID, CMP #### [facility] [address] [place] [address] Dr. Katrin Ceja Monocytes/100 WBC (Bld) 6.5 % Normal 1.7-12.[address] [facility] Comment on above: Performed By: #### L IPID, CMP #### [facility] [address] [place] [address] Dr. Katrin Ceja NEUT # 6.0 103/ul Normal 1.4-6.[address] [facility] Comment on above: Performed By: #### L IPID, CMP #### [facility] [address] [place] [address] Dr. Katrin Ceja Neutrophils/100 WBC (Bld) 57.6 % Normal 43.0-75.[address] [facility] Comment on above: Performed By: #### L IPID, CMP #### [facility] [address] [place] [address] Dr. Katrin Ceja Platelet mean volume (Bld) [Entitic vol] 8.7 fL Critically low 9.5-13.[address] [facility] Comment on above: Performed By: #### L IPID, CMP #### [facility] [address] [place] [address] Dr. Katrin Ceja PLT 282 103/ul Normal 150-[address] [facility] Comment on above: Performed By: #### L IPID, CMP #### [facility] [address] [place] [address] Dr. Katrin Ceja RBC 4.21 106/ul Normal 4.20-5.[address] [facility] Comment on above: Performed By: #### L IPID, CMP #### [facility] [address] [place] [address] Dr. Katrin Ceja WBC 10.5 103/ul Normal 4.0-11.[address] [facility] Comment on above: Performed By: #### L IPID, CMP #### [facility] [address] [place] [address] Dr. Katrin Ceja ER URINE PROFILEon 2 Bilirubin Ql (U) Negative Normal NEGATIVE [facility] Comment on above: Performed By: #### L IPID, CMP #### [facility] [address] [place] [address] Dr. Katrin Ceja Clarity (U) CLEAR Normal CLEAR [facility] Comment on above: Performed By: #### L IPID, CMP #### [facility] [address] [place] [address] Dr. Katrin Ceja Color (U) LT. YELLOW Normal YELLOW [facility] Comment on above: Performed By: #### L IPID, CMP #### [facility] [address] [address] [address] Katrin ANN A micrscopic examina tion will be performed if indicated. Normal [facility] Comment on above: Performed By: #### L IPID, CMP #### [facility] [address] [address] [address] Katrin Ceja Glucose Ql (U) Negative Normal NEGATIVE [facility] Comment on above: Performed By: #### L IPID, CMP #### [facility] [address] [address] [address] Katrin Ceja Hemoglobin Ql (U) Negative Normal NEGATIVE [facility] Comment on above: Performed By: #### L IPID, CMP #### [facility] [address] [place] [address] Dr. Katrin Ceja Ketones Ql (U) Negative Normal NEGATIVE [facility] Comment on above: Performed By: #### L IPID, CMP #### [facility] [address] [place] [address] Dr. Katrin Ceja LEUKOCYTES Negative Normal NEGATIVE [facility] Comment on above: Performed By: #### L IPID, CMP #### [facility] [address] [address] [address] Katrin Ceja Nitrite Ql (U) Negative Normal NEGATIVE [facility] Comment on above: Performed By: #### L IPID, CMP #### [facility] [address] [place] [address] Dr. Katrin Ceja pH (U) 6.0 [pH] Normal 5-[address] [facility] Comment on above: Performed By: #### L IPID, CMP #### [facility] [address] [place] [address] Dr. Katrin Ceja SPEC GRAVITY 1.015 Normal 1.005-<=1. [address] [facility] Comment on above: Performed By: #### L IPID, CMP #### [facility] [address] [place] [address] Dr. Katrin Ceja UA PROTEIN Negative Normal NEGATIVE/ TRACE [facility] Comment on above: Performed By: #### L IPID, CMP #### [facility] [address] [address] [address] Katrin Ceja UR MICRO IND NOT INDICATED Normal [facility] Comment on above: Performed By: #### L IPID, CMP #### [facility] [address] [address] [address] Katrin Ceja Urobilinogen Qn (U) 0.2 {Jeannie'U}/dL Normal 0.2 - 1. [address] [facility] Comment on above: Performed By: #### L IPID, CMP #### [facility] [address] [address] [address] Katrin Ceja LIPASEon 03-22-2022 Lipase [Catalytic activity/Vol] 84.0 U/L Normal 73.0-393.[address] [facility] Comment on above: Performed By: #### H STROPN, CMP, LIPA #### [facility] [address] [address] [address] Katrin Ceja URon 03-22-2022 , QUAL Negative Normal NEGATIVE [facility] Comment on above: Performed By: #### L IPID, CMP #### [facility] [address] [place] [address] Dr. Katrin Ceja PROF 14(COMP METB)on 022 Albumin [Mass/Vol] 3.2 g/dL Critically low 3.4-5.0 [facility] Comment on above: Performed By: #### H STROPN, CMP, LIPA #### [facility] [address] [place] [address] Dr. Katrin Ceja Albumin/Globulin [Mass ratio] 0.8 {ratio} Normal [facility] Comment on above: Performed By: #### H STROPN, CMP, LIPA #### [facility] [address] [place] [address] Dr. Katrin Ceja ALP [Catalytic activity/Vol] 189 U/L Critically high 46-[address] [facility] Comment on above: Performed By: #### H STROPN, CMP, LIPA #### [facility] [address] [address] [address] Katrin Ceja ALT [Catalytic activity/Vol] 31 U/L Normal 14-[address] [facility] Comment on above: Performed By: #### H STROPN, CMP, LIPA #### [facility] [address] [address] [address] Katrin Ceja Anion gap [Moles/Vol] 9.9 mmol/L Normal [facility] Comment on above: Performed By: #### H STROPN, CMP, LIPA #### [facility] [address] [address] [address] Katrin Ceja AST [Catalytic activity/Vol] 17 U/L Normal 15-[address] [facility] Comment on above: Performed By: #### H STROPN, CMP, LIPA #### [facility] [address] [address] [address] Katrin Ceja Bilirubin [Mass/Vol] 0.2 mg/dL Normal 0.2-1.[address] [facility] Comment on above: Performed By: #### H STROPN, CMP, LIPA #### [facility] [address] [address] [address] Katrin Ceja Calcium [Mass/Vol] 8.7 mg/dL Normal 8.5-10.1 [facility] Comment on above: Performed By: #### H STROPN, CMP, LIPA #### [facility] [address] [address] [address] Katrin Ceja Chloride [Moles/Vol] 103 mmol/L Normal 98-[address] [facility] Comment on above: Performed By: #### H STROPN, CMP, LIPA #### [facility] [address] [address] [address] Katrin Ceja CO2 [Moles/Vol] 25.4 mmol/L Normal 21.0-32.0 [facility] Comment on above: Performed By: #### H STROPN, CMP, LIPA #### [facility] [address] [address] [address] Katrin Ceja Creatinine [Mass/Vol] 0.71 mg/dL Normal 0.55-1.[address] [facility] Comment on above: Performed By: #### H STROPN, CMP, LIPA #### [facility] [address] [place] [address] Dr. Katrin Ceja EGFR-AF INDIAN >60 Normal >=60 [facility] Comment on above: Performed By: #### H STROPN, CMP, LIPA #### [facility] [address] [address] [address] Katrin Ceja EGFR-NON AF INDIAN >60 Normal >=[address] [facility] Comment on above: Performed By: #### H STROPN, CMP, LIPA #### [facility] [address] [address] [address] Katrin Ceja Globulin (S) [Mass/Vol] 4.0 g/dL Normal [facility] Comment on above: Performed By: #### H STROPN, CMP, LIPA #### [facility] [address] [place] [address] Dr. Katrin Ceja Glucose [Mass/Vol] 106 mg/dL Normal 74-106 [facility] Comment on above: Performed By: #### H STROPN, CMP, LIPA #### [facility] [address] [place] [address] Dr. Katrin Ceja Potassium [Moles/Vol] 3.3 mmol/L Critically low 3.5-5.[address] [facility] Comment on above: Performed By: #### H STROPN, CMP, LIPA #### [facility] [address] [address] [address] Katrin Ceja Protein [Mass/Vol] 7.2 g/dL Normal 6.4-8.2 [facility] Comment on above: Performed By: #### H STROPN, CMP, LIPA #### [facility] [address] [place] [address] Dr. Katrin Ceja Sodium [Moles/Vol] 135 mmol/L Critically low 136-145 [facility] Comment on above: Performed By: #### H STROPN, CMP, LIPA #### [facility] [address] [place], [place] [id number] Dr. Katrin Ceja Urea nitrogen [Mass/Vol] 5.0 mg/dL Critically low 7.0-18.0 [facility] Comment on above: Performed By: #### H STROPN, CMP, LIPA #### [facility] [address] [address] [address] Katrin Ceja Urea nitrogen/Creatinine [Mass ratio] 7.0 mg/mg Normal [facility] Comment on above: Performed By: #### H STROPN, CMP, LIPA #### [facility] [address] [address] [address] Katirn Ceja TROPONIN, HIGH SENSITIVITYon 03-22-2022 HSTROP <4.0 Normal 4.0-51.3 [facility] Comment on above: Result Comment: CUT- OFF POINTS HAVE BEEN ESTABLISHED BASED ON THE FOURTH UNIVERSAL DEFINITIONS OF MYOCARDIAL INFARCTION. THE UPPER REFERENCE LIMIT (URL) OF TROPONIN, DEFINED THE 99TH PERCENTILE OF cTnI DISTRIBUTION IN A REFERENCE POPULATION, HAS BEEN CONFIRMED THE DECISION THRESHOLD FOR [place] DIAGNOSIS. Performed By: #### H STROSARAHI, CMP, LIPA #### [facility] [address] [place] [address] Dr. Katrin Ceja XR ABD FLAT UP_PA [...] DANNI QUINONES Date: 2022-03-09 19:32 Normal [facility] CBC AUTO DIFFon 02-08-2022 BASO # 0.0 103/ul Normal 0.0-0.[address] [facility] Comment on above: Performed By: #### C BC #### [facility] [address] [address] [address] Katrin Cjea Basophils/100 WBC (Bld) 0.3 % Normal 0.2-2.[address] [facility] Comment on above: Performed By: #### C BC #### [facility] [address] [address] [address] Katrin Ceja EO # 0.3 103/ul Normal 0.0-0.[address] [facility] Comment on above: Performed By: #### C BC #### [facility] [address] [address] [address] Katrin Ceja Eosinophils/100 WBC (Bld) 3.0 % Normal 0.9-7.[address] [facility] Comment on above: Performed By: #### C BC #### [facility] [address] [address] [address] Katrin Ceja Erythrocyte distribution width (RBC) [Ratio] 12.2 % Normal 11.0-15.[address] [facility] Comment on above: Performed By: #### C BC #### [facility] [address] [place] [address] Dr. Katrin Ceja Hematocrit (Bld) [Volume fraction] 33.8 % Critically low 36.0-48.[address] [facility] Comment on above: Performed By: #### C BC #### [facility] [address] [address] [address] Katrin Ceja Hemoglobin (Bld) [Mass/Vol] 11.9 g/dL Critically low 12.0-16.[address] [facility] Comment on above: Performed By: #### C BC #### [facility] [address] [place] [address] Dr. Katrin Ceja IG # 0.04 10e3/ul Critically high 0.00-0.03 [facility] Comment on above: Performed By: #### C BC #### [facility] [address] [place] [address] Dr. Katrin Ceja IG % 0.4 % Normal 0.0-0.[address] [facility] Comment on above: Performed By: #### C BC #### [facility] [address] [place] [address] Dr. Katrin Ceja LYMPH # 3.0 103/ul Normal 1.2-3.[address] [facility] Comment on above: Performed By: #### C BC #### [facility] [address] [place] [address] Dr. Katrin Ceja Lymphocytes/100 WBC (Bld) 28.4 % Normal 20.5-60.[address] [facility] Comment on above: Performed By: #### C BC #### [facility] [address] [place] [address] Dr. Katrin Ceja MANUAL DIFF REQ NO Normal [facility] Comment on above: Performed By: #### C BC #### [facility] [address] [place] [address] Dr. Katrin Ceja MCH (RBC) [Entitic mass] 29.8 pg Normal 26.7-34.[address] [facility] Comment on above: Performed By: #### C BC #### [facility] [address] [place] [address] Dr. Katrin Ceja MCHC (RBC) [Mass/Vol] 35.2 g/dL Normal 29.9-35.[address] [facility] Comment on above: Performed By: #### C BC #### [facility] [address] [place] [address] Dr. Katrin Ceja MCV (RBC) [Entitic vol] 84.7 fL Normal 81.0-99.[address] [facility] Comment on above: Performed By: #### C BC #### [facility] [address] [address] [address] Katrin Ceja MONO # 0.7 103/ul Normal 0.3-0.8 [facility] Comment on above: Performed By: #### C BC #### [facility] [address] [address] [address] Katrin Ceja Monocytes/100 WBC (Bld) 6.6 % Normal 1.7-12.[address] [facility] Comment on above: Performed By: #### C BC #### [facility] [address] [address] [address] Katrin Ceja NEUT # 6.4 103/ul Normal 1.4-6.[address] [facility] Comment on above: Performed By: #### C BC #### [facility] [address] [address] [address] Katrin Ceja Neutrophils/100 WBC (Bld) 61.3 % Normal 43.0-75.[address] [facility] Comment on above: Performed By: #### C BC #### [facility] [address] [address] [address] Katrin Ceja Platelet mean volume (Bld) [Entitic vol] 8.9 fL Critically low 9.5-13.[address] [facility] Comment on above: Performed By: #### C BC #### [facility] [address] [address] [address] Katrin Ceja PLT 299 103/ul Normal 150-450 [facility] Comment on above: Performed By: #### C BC #### [facility] [address] [address] [address] Katrin Ceja RBC 3.99 106/ul Critically low 4.20-5.40 [facility] Comment on above: Performed By: #### C BC #### [facility] [address] [address] [address] Katrin Ceja WBC 10.4 103/ul Normal 4.0-11.0 [facility] [facility] Comment on above: Performed By: #### C BC #### [facility] [address] [place] [address] Dr. Katrin Ceja D-DIMERon 02-08-2022 D-DIMER 0.59 mg/L FEU Normal <=0.59 [facility] Comment on above: Performed By: #### L IPID, CMP #### [facility] [address] [place] [address] Dr. Katrin Ceja D-DIMER COMMENTS SEE BELOW Normal [facility] Comment on above: Result Comment: [...] CMP #### [facility] [address] [place] [address] Dr. Katrin Ceja PROF CHEM 8 (BAS METB)on Anion gap [Moles/Vol] 12.8 mmol/L Normal [facility] Comment on above: Performed By: #### C BC #### [facility] [address] [place] [address] Dr. Katrin Ceja Calcium [Mass/Vol] 8.7 mg/dL Normal 8.5-10.1 [facility] Comment on above: Performed By: #### C BC #### [facility] [address] [place] [address] Dr. Katrin Ceja Chloride [Moles/Vol] 102 mmol/L Normal 98-[address] [facility] Comment on above: Performed By: #### C BC #### [facility] [address] [place] [address] Dr. Katrin Ceja CO2 [Moles/Vol] 25.9 mmol/L Normal 21.0-32.0 [facility] Comment on above: Performed By: #### C BC #### [facility] [address] [place] [address] Dr. Katrin Ceja Creatinine [Mass/Vol] 0.70 mg/dL Normal 0.55-1.[address] [facility] Comment on above: Performed By: #### C BC #### [facility] [address] [place] [address] Dr. Katrin Ceja EGFR-AF INDIAN >60 Normal >=60 [facility] Comment on above: Performed By: #### C BC #### [facility] [address] [place] [address] Dr. Katrin Ceja EGFR-NON AF INDIAN >60 Normal >=[address] [facility] Comment on above: Performed By: #### C BC #### [facility] [address] [place] [address] Dr. Katrin Ceja Glucose [Mass/Vol] 95 mg/dL Normal 74-[address] [facility] Comment on above: Performed By: #### C BC #### [facility] [address] [place] [address] Dr. Katrin Ceja Potassium [Moles/Vol] 2.7 mmol/L Critically low 3.5-5.[address] [facility] Comment on above: Result Comment: Test Repeated. Critical Value Verified Performed By: #### C BC #### [facility] [address] [place] [address] Dr. Katrin Ceja Sodium [Moles/Vol] 136 mmol/L Normal 136-[address] [facility] Comment on above: Performed By: #### C BC #### [facility] [address] [place] [address] Dr. Katrin Ceja Urea nitrogen [Mass/Vol] 3.0 mg/dL Critically low 7.0-18.0 [facility] Comment on above: Performed By: #### C BC #### [facility] [address] [place] [address] Dr. Katrin Ceja Urea nitrogen/Creatinine [Mass ratio] 4.3 mg/mg Normal [facility] Comment on above: Performed By: #### C BC #### [facility] [address] [place] [address] Dr. Katrin Ceja XR CHEST 2 Von [...] by: RIVER RODGERS Date: 2022-02-08 04:[address] [facility] LIPID PROFILEon 12-18-2021 CHOL-HDL RATIO NORM SEE BELOW Normal [facility] Comment on above: Result Comment: 3.3 - 4.4 LOW RISK 4.4 - 7.1 AVERAGE RISK 7.1 - 11.0 MODERATE RISK >11.0 HIGH RISK Performed By: #### L IPID, LIVER #### [facility] [address] [address] [address] Katrin Ceja Cholesterol [Mass/Vol] 126 mg/dL Normal <=200 [facility] Comment on above: Performed By: #### L IPID, LIVER #### [facility] [address] [address] [address] Katrin Ceja Cholesterol in HDL [Mass/Vol] 31 mg/dL Critically low 40-[address] [facility] Comment on above: Performed By: #### L IPID, LIVER #### [facility] [address] [address] [address] Katrin Ceja Cholesterol in LDL [Mass/Vol] 59.2 mg/dL Normal [facility] Comment on above: Performed By: #### L IPID, LIVER #### [facility] [address] [address] [address] Katrin Ceja Cholesterol.total/Chol esterol in HDL [Mass ratio] 4.1 {ratio} Normal [facility] Comment on above: Performed By: #### L IPID, LIVER #### [facility] [address] [address] [address] Katrin Ceja HDL NORMAL > or = 60 mg/dl - LO W CARDIOVASCULAR RISK <40 mg/dl - HIGH CARDIOVASCULAR RISK Normal [facility] Comment on above: Performed By: #### L IPID, LIVER #### [facility] [address] [address] [address] Katrin Ceja LDL CALC NORMAL SEE BELOW Normal [facility] Comment on above: Result Comment: <100 mg/dl OPTIMAL 100 - 129 mg/dl NEAR OR ABOVE OPTIMAL 130 - 159 mg/dl BORDERLINE HIGH 160 - 189 mg/dl HIGH >190 mg/dl VERY HIGH Performed By: #### L IPID, LIVER #### [facility] [address] [address] [address] Katrin Ceja Triglyceride [Mass/Vol] 179 mg/dL Critically high <=[address] [facility] Comment on above: Performed By: #### L IPID, LIVER #### [facility] [address] [address] [address] Katrin Ceja VLDL CALC 35.8 mg/dL Normal [facility] Comment on above: Performed By: #### L IPID, LIVER #### [facility] [address] [address] [address] Katrin Ceja LIVER PROFILEon 12-18-2021 Albumin [Mass/Vol] 3.6 g/dL Normal 3.4-5.0 [facility] Comment on above: Performed By: #### L IPID, LIVER #### [facility] [address] [address] [address] Katrin Ceja Albumin/Globulin [Mass ratio] 0.8 {ratio} Normal [facility] Comment on above: Performed By: #### L IPID, LIVER #### [facility] [address] [address] [address] Katrin Ceja ALP [Catalytic activity/Vol] 196 U/L Critically high 46-[address] [facility] Comment on above: Performed By: #### L IPID, LIVER #### [facility] [address] [address] [address] Katrin Ceja ALT [Catalytic activity/Vol] 51 U/L Normal 14-[address] [facility] Comment on above: Performed By: #### L IPID, LIVER #### [facility] [address] [place] [address] Dr. Katrin Ceja AST [Catalytic activity/Vol] 22 U/L Normal 15-[address] [facility] Comment on above: Performed By: #### L IPID, LIVER #### [facility] [address] [address] [address] Katrin Ceja BILI, CONJUGATED 0.1 mg/dL Normal 0.0-0.2 [facility] Comment on above: Performed By: #### L IPID, LIVER #### [facility] [address] [place] [address] Dr. Katrin Ceja Bilirubin [Mass/Vol] 0.4 mg/dL Normal 0.2-1.[address] [facility] Comment on above: Performed By: #### L IPID, LIVER #### [facility] [address] [place] [address] Dr. Katrin Ceja Globulin (S) [Mass/Vol] 4.4 g/dL Normal [facility] Comment on above: Performed By: #### L IPID, LIVER #### [facility] [address] [place] [address] Dr. Katrin Ceja Protein [Mass/Vol] 8.0 g/dL Normal 6.4-8.2 [facility] Comment on above: Performed By: #### L IPID, LIVER #### [facility] [address] [place] [address] Dr. Katrin Ceja XR FOOT RT MIN [...] by: RIVER RODGERS Date: 2021-12-07 00:[address] [facility] PROF 14(COMP METB)on 022 Albumin [Mass/Vol] 3.6 g/dL Normal 3.4-5.0 [facility] Comment on above: Performed By: #### L IPID, CMP #### [facility] [address] [address] [address] Katrin Ceja Albumin/Globulin [Mass ratio] 0.8 {ratio} Normal [facility] Comment on above: Performed By: #### L IPID, CMP #### [facility] [address] [address] [address] Katrin Ceja ALP [Catalytic activity/Vol] 209 U/L Critically high 46-[address] [facility] Comment on above: Performed By: #### L IPID, CMP #### [facility] [address] [address] [address] Katrin Ceja ALT [Catalytic activity/Vol] 65 U/L Critically high 14-[address] [facility] Comment on above: Performed By: #### L IPID, CMP #### [facility] [address] [address] [address] Katrin Ceja Anion gap [Moles/Vol] 15.7 mmol/L Normal [facility] Comment on above: Performed By: #### L IPID, CMP #### [facility] [address] [address] [address] Katrin Ceja AST [Catalytic activity/Vol] 31 U/L Normal 15-[address] [facility] Comment on above: Performed By: #### L IPID, CMP #### [facility] [address] [address] [address] Katrin Ceja Bilirubin [Mass/Vol] 0.2 mg/dL Normal 0.2-1.[address] [facility] Comment on above: Performed By: #### L IPID, CMP #### [facility] [address] [address] [address] Katrin Ceja Calcium [Mass/Vol] 8.8 mg/dL Normal 8.5-10.1 [facility] Comment on above: Performed By: #### L IPID, CMP #### [facility] [address] [address] [address] Katrin Ceja Chloride [Moles/Vol] 105 mmol/L Normal 98-[address] [facility] Comment on above: Performed By: #### L IPID, CMP #### [facility] [address] [address] [address] Katrin Ceja CO2 [Moles/Vol] 21.3 mmol/L Critically low 22.0-30.[address] [facility] Comment on above: Performed By: #### L IPID, CMP #### [facility] [address] [address] [address] Katrin Ceja Creatinine [Mass/Vol] 0.72 mg/dL Normal 0.52-1.[address] [facility] Comment on above: Performed By: #### L IPID, CMP #### [facility] [address] [address] [address] Katrin Ceja EGFR-AF INDIAN >60 Normal >=60 [facility] Comment on above: Performed By: #### L IPID, CMP #### [facility] [address] [address] [address] Katrin Ceja EGFR-NON AF INDIAN >60 Normal >=[address] [facility] Comment on above: Performed By: #### L IPID, CMP #### [facility] [address] [address] [address] Katrin Ceja Globulin (S) [Mass/Vol] 4.3 g/dL Normal [facility] Comment on above: Performed By: #### L IPID, CMP #### [facility] [address] [address] [address] Katrin Ceja Glucose [Mass/Vol] 99 mg/dL Normal 74-106 [facility] Comment on above: Performed By: #### L IPID, CMP #### [facility] [address] [address] [address] Katrin Ceja Potassium [Moles/Vol] 4.0 mmol/L Normal 3.4-5.[address] [facility] Comment on above: Performed By: #### L IPID, CMP #### [facility] [address] [address] [address] Katrin Ceja Protein [Mass/Vol] 7.9 g/dL Normal 6.1-8.2 [facility] Comment on above: Performed By: #### L IPID, CMP #### [facility] [address] [address] [address] Katrin Ceja Sodium [Moles/Vol] 138 mmol/L Normal 137-145 [facility] Comment on above: Performed By: #### L IPID, CMP #### [facility] [address] [address] [address] Katrin Ceja Urea nitrogen [Mass/Vol] 13.0 mg/dL Normal 7.0-18.[address] [facility] Comment on above: Performed By: #### L IPID, CMP #### [facility] [address] [address] [address] Katrin Ceja Urea nitrogen/Creatinine [Mass ratio] 18.1 mg/mg Normal [facility] Comment on above: Performed By: #### L IPID, CMP #### [facility] [address] [address] [address] Katrin Ceja XR HUMERUS RT MIN [...] IMPRESSION: Unremarkable right humerus. Electronically authenticated by: TRAY NAVA Date: 2021-10-17 01:[address] [facility] XR SHOULDER RT 2V or >on XR SHOULDER RT 2V or > EXAM: XR SHOULDER RT 2V or > HISTORY: Pain right arm pain following fall. COMPARISON: None. TECHNIQUE: Standard 3 views of the right shoulder. FINDINGS: No acute or intrinsic osseous, articular or soft tissue abnormality is seen. IMPRESSION: No acute findings. Electronically authenticated by: TRAY NAVA Date: 2021-10-17 01:45 Normal [facility] acute right wrist findings. Electronically authenticated by: TRAY NAVA Date: 2021-10-17 01:44 Normal [facility] AMYLASEon 09-18-2021 Amylase [Catalytic activity/Vol] 34 U/L Normal 31-110 [facility] Comment on above: Performed By: #### P REG #### [facility] [address] [place] [address] Dr. Katrin Ceja CBC AUTO DIFFon 09-18-2021 BASO # 0.0 103/ul Normal 0.0-0.[address] [facility] Comment on above: Performed By: #### C BC #### [facility] [address] [place] [address] Dr. Katrin Ceja Basophils/100 WBC (Bld) 0.3 % Normal 0.2-2.[address] [facility] Comment on above: Performed By: #### C BC #### [facility] [address] [place] [address] Dr. Katrin Ceja EO # 0.2 103/ul Normal 0.0-0.[address] [facility] Comment on above: Performed By: #### C BC #### [facility] [address] [place] [address] Dr. Katrin Ceja Eosinophils/100 WBC (Bld) 2.4 % Normal 0.9-7.[address] [facility] Comment on above: Performed By: #### C BC #### [facility] [address] [place] [address] Dr. Katrin Ceja Erythrocyte distribution width (RBC) [Ratio] 12.5 % Normal 11.0-15.[address] [facility] Comment on above: Performed By: #### C BC #### [facility] [address] [place] [address] Dr. Katrin Ceja Hematocrit (Bld) [Volume fraction] 37.4 % Normal 36.0-48.[address] [facility] Comment on above: Performed By: #### C BC #### [facility] [address] [place] [address] Dr. Katrin Ceja Hemoglobin (Bld) [Mass/Vol] 12.3 g/dL Normal 12.0-16.[address] [facility] Comment on above: Performed By: #### C BC #### [facility] [address] [place] [address] Dr. Katrin Ceja IG # 0.05 10e3/ul Critically high 0.00-0.03 [facility] Comment on above: Performed By: #### C BC #### [facility] [address] [place] [address] Dr. Katrin Ceja IG % 0.5 % Normal 0.0-0.[address] [facility] Comment on above: Performed By: #### C BC #### [facility] [address] [place] [address] Dr. Katrin Ceja LYMPH # 3.1 103/ul Normal 1.2-3.[address] [facility] Comment on above: Performed By: #### C BC #### [facility] [address] [place] [address] Dr. Katrin Ceja Lymphocytes/100 WBC (Bld) 31.7 % Normal 20.5-60.[address] [facility] Comment on above: Performed By: #### C BC #### [facility] [address] [place] [address] Dr. Katrin Ceja MANUAL DIFF REQ NO Normal [facility] Comment on above: Performed By: #### C BC #### [facility] [address] [place] [address] Dr. Katrin Ceja MCH (RBC) [Entitic mass] 28.9 pg Normal 26.7-34.[address] [facility] Comment on above: Performed By: #### C BC #### [facility] [address] [place] [address] Dr. Katrin Ceja MCHC (RBC) [Mass/Vol] 32.9 g/dL Normal 29.9-35.[address] [facility] Comment on above: Performed By: #### C BC #### [facility] [address] [address] [address] Katrin Ceja MCV (RBC) [Entitic vol] 88.0 fL Normal 81.0-99.[address] [facility] Comment on above: Performed By: #### C BC #### [facility] [address] [address] [address] Katrin Ceja MONO # 0.7 103/ul Normal 0.3-0.[address] [facility] Comment on above: Performed By: #### C BC #### [facility] [address] [place] [address] Dr. Katrin Ceja Monocytes/100 WBC (Bld) 6.7 % Normal 1.7-12.[address] [facility] Comment on above: Performed By: #### C BC #### [facility] [address] [place] [address] Dr. Katrin Ceaj NEUT # 5.7 103/ul Normal 1.4-6.[address] [facility] Comment on above: Performed By: #### C BC #### [facility] [address] [place] [address] Dr. Katrin Ceja Neutrophils/100 WBC (Bld) 58.4 % Normal 43.0-75.[address] [facility] Comment on above: Performed By: #### C BC #### [facility] [address] [place] [address] Dr. Katrin Ceja Platelet mean volume (Bld) [Entitic vol] 8.8 fL Critically low 9.5-13.[address] [facility] Comment on above: Performed By: #### C BC #### [facility] [address] [place] [address] Dr. Katrin Ceja PLT 265 103/ul Normal 150-450 [facility] Comment on above: Performed By: #### C BC #### [facility] [address] [place] [address] Dr. Katrin Ceja RBC 4.25 106/ul Normal 4.20-5.[address] [facility] Comment on above: Performed By: #### C BC #### [facility] [address] [address] [address] Katrin Ceja WBC 9.7 103/ul Normal 4.0-11.[address] [facility] Comment on above: Performed By: #### C BC #### [facility] [address] [place], [place] [address] ABD/PELV W CONon [...] Bilirubin Ql (U) Negative Normal NEGATIVE [facility] Comment on above: Performed By: #### C BC #### [facility] [address] [address] [address] Katrin Ceja Clarity (U) CLEAR Normal CLEAR [facility] Comment on above: Performed By: #### C BC #### [facility] [address] [address] [address] Katrin Ceja Color (U) LT. YELLOW Normal YELLOW [facility] Comment on above: Performed By: #### C BC #### [facility] [address] [address] [address] Katrin Ceja ERUAHD A micrscopic examina tion will be performed if indicated. Normal [facility] Comment on above: Performed By: #### C BC #### [facility] [address] [address] [address] Katrin Ceja Glucose Ql (U) Negative Normal NEGATIVE [facility] Comment on above: Performed By: #### C BC #### [facility] [address] [place] [address] Dr. Katrin Ceja Hemoglobin Ql (U) SMALL Abnormal NEGATIVE [facility] Comment on above: Performed By: #### C BC #### [facility] [address] [place] [address] Dr. Katrin Ceja Ketones Ql (U) Negative Normal NEGATIVE [facility] Comment on above: Performed By: #### C BC #### [facility] [address] [place] [address] Dr. Katrin Ceja LEUKOCYTES Negative Normal NEGATIVE [facility] Comment on above: Performed By: #### C BC #### [facility] [address] [place] [address] Dr. Katrin Ceja Nitrite Ql (U) Negative Normal NEGATIVE [facility] Comment on above: Performed By: #### C BC #### [facility] [address] [place] [address] Dr. Katrin Ceja pH (U) 7.5 [pH] Normal 5-9 [facility] Comment on above: Performed By: #### C BC #### [facility] [address] [place] [address] Dr. Katrin Ceja SPEC GRAVITY 1.010 Normal 1.005-<=1. [address] [facility] Comment on above: Performed By: #### C BC #### [facility] [address] [place] [address] Dr. Katrin Ceja UA PROTEIN Negative Normal NEGATIVE/ TRACE [facility] Comment on above: Performed By: #### C BC #### [facility] [address] [place] [address] Dr. Katrin Ceja UR MICRO IND INDICATED Normal [facility] Comment on above: Performed By: #### C BC #### [facility] [address] [place] [address] Dr. Katrin Ceja Urobilinogen Qn (U) 0.2 {Jeannie'U}/dL Normal 0.2 - 1. [address] [facility] Comment on above: Performed By: #### C BC #### [facility] [address] [place] [address] Dr. Katrin Ceja LIPASEon 09-18-2021 Lipase [Catalytic activity/Vol] 81.0 U/L Normal 23.0-300.[address] [facility] Comment on above: Performed By: #### P REG #### [facility] [address] [place] [address] Dr. Katrin Ceja URon 09-18-2021 , QUAL Negative Normal NEGATIVE [facility] Comment on above: Performed By: #### C BC #### [facility] [address] [place] [address] Dr. Katrin Ceja PROF 14(COMP METB)on 022 Albumin [Mass/Vol] 3.2 g/dL Critically low 3.5-5.0 [facility] Comment on above: Performed By: #### P REG #### [facility] [address] [place] [address] Dr. Katrin Ceja Albumin/Globulin [Mass ratio] 0.8 {ratio} Normal [facility] Comment on above: Performed By: #### P REG #### [facility] [address] [place] [address] Dr. Katrin Ceja ALP [Catalytic activity/Vol] 216 U/L Critically high 38-[address] [facility] Comment on above: Performed By: #### P REG #### [facility] [address] [address] [address] Katrin Ceja ALT [Catalytic activity/Vol] 109 U/L Critically high 9-[address] [facility] Comment on above: Performed By: #### P REG #### [facility] [address] [address] [address] Katrin Ceja Anion gap [Moles/Vol] 10.5 mmol/L Normal [facility] Comment on above: Performed By: #### P REG #### [facility] [address] [address] [address] Katrin Ceja AST [Catalytic activity/Vol] 66 U/L Critically high 14-[address] [facility] Comment on above: Performed By: #### P REG #### [facility] [address] [place] [address] Dr. Katrin Ceja Bilirubin [Mass/Vol] 0.2 mg/dL Normal 0.2-1.[address] [facility] Comment on above: Performed By: #### P REG #### [facility] [address] [place] [address] Dr. Katrin Ceja Calcium [Mass/Vol] 8.3 mg/dL Critically low 8.4-10.2 [facility] Comment on above: Performed By: #### P REG #### [facility] [address] [place] [address] Dr. Katrin Ceja Chloride [Moles/Vol] 103 mmol/L Normal 98-[address] [facility] Comment on above: Performed By: #### P REG #### [facility] [address] [place] [address] Dr. Katrin Ceja CO2 [Moles/Vol] 26.2 mmol/L Normal 22.0-30.0 [facility] Comment on above: Performed By: #### P REG #### [facility] [address] [place] [address] Dr. Katrin Ceja Creatinine [Mass/Vol] 0.81 mg/dL Normal 0.52-1.[address] [facility] Comment on above: Performed By: #### P REG #### [facility] [address] [place] [address] Dr. Katrin Ceja EGFR-AF INDIAN >60 Normal >=60 [facility] Comment on above: Performed By: #### P REG #### [facility] [address] [address] [address] Katrin Ceja EGFR-NON AF INDIAN >60 Normal >=[address] [facility] Comment on above: Performed By: #### P REG #### [facility] [address] [address] [address] Katrin Ceja Globulin (S) [Mass/Vol] 4.1 g/dL Normal [facility] Comment on above: Performed By: #### P REG #### [facility] [address] [address] [address] Katrin Ceja Glucose [Mass/Vol] 90 mg/dL Normal 74-106 [facility] Comment on above: Performed By: #### P REG #### [facility] [address] [address] [address] Katrin Ceja Potassium [Moles/Vol] 3.7 mmol/L Normal 3.4-5.[address] [facility] Comment on above: Performed By: #### P REG #### [facility] [address] [address] [address] Kartin Ceja Protein [Mass/Vol] 7.3 g/dL Normal 6.1-8.2 [facility] Comment on above: Performed By: #### P REG #### [facility] [address] [address] [address] Katrin Ceja Sodium [Moles/Vol] 136 mmol/L Critically low 137-145 [facility] Comment on above: Performed By: #### P REG #### [facility] [address] [address] [address] Katrin Ceja Urea nitrogen [Mass/Vol] 5.0 mg/dL Critically low 7.0-17.[address] [facility] Comment on above: Performed By: #### P REG #### [facility] [address] [address] [address] Katrin Ceja Urea nitrogen/Creatinine [Mass ratio] 6.2 mg/mg Normal [facility] Comment on above: Performed By: #### P REG #### [facility] [address] [place] [address] Dr. Katrin Ceja URINE MICROSCOPIC ONLYon BACTERIA NONE SEEN Normal NONE SEEN [facility] Comment on above: Performed By: #### C BC #### [facility] [address] [place] [address] Dr. Katrin Ceja Bacteria identified Cx Nom (U) NOT INDICATED Normal [facility] Comment on above: Performed By: #### C BC #### [facility] [address] [place] [address] Dr. Katrin Ceja CAST NONE SEEN Normal NONE SEEN [facility] Comment on above: Performed By: #### C BC #### [facility] [address] [place] [address] Dr. Katrin Ceja Crystals LM Nom (Urine sed) NONE SEEN Normal NONE SEEN [facility] Comment on above: Performed By: #### C BC #### [facility] [address] [place] [address] Dr. Katrin Ceja Epithelial cells LM Ql (Urine sed) FEW Abnormal NONE SEEN /RARE [facility] Comment on above: Performed By: #### C BC #### [facility] [address] [place] [address] Dr. Katrin Ceja MUCOUS NONE SEEN Normal NONE SEEN [facility] Comment on above: Performed By: #### C BC #### [facility] [address] [place] [address] Dr. Katrin Ceja RBC NONE SEEN Abnormal 0-2 [facility] Comment on above: Performed By: #### C BC #### [facility] [address] [place] [address] Dr. Katrin Ceja WBC NONE SEEN Normal NONE SEEN [facility] Comment on above: Performed By: #### C BC #### [facility] [address] [place] [address] Dr. Katrin Ceja XR ABD FLAT UP_PA [...] 07-18-2021 BASO # 0.0 103/ul Normal 0.0-0.[address] [facility] Comment on above: Performed By: #### C BC #### [facility] [address] [place] [address] Dr. Katrin Ceja Basophils/100 WBC (Bld) 0.3 % Normal 0.2-2.[address] [facility] Comment on above: Performed By: #### C BC #### [facility] [address] [place] [address] Dr. Katrin Ceja EO # 0.2 103/ul Normal 0.0-0.[address] [facility] Comment on above: Performed By: #### C BC #### [facility] [address] [place] [address] Dr. Katrin Ceja Eosinophils/100 WBC (Bld) 1.7 % Normal 0.9-7.[address] [facility] Comment on above: Performed By: #### C BC #### [facility] [address] [place] [address] Dr. Katrin Ceja Erythrocyte distribution width (RBC) [Ratio] 13.1 % Normal 11.0-15.[address] [facility] Comment on above: Performed By: #### C BC #### [facility] [address] [place] [address] Dr. Katrin Ceja Hematocrit (Bld) [Volume fraction] 42.0 % Normal 36.0-48.[address] [facility] Comment on above: Performed By: #### C BC #### [facility] [address] [place] [address] Dr. Katrin Ceja Hemoglobin (Bld) [Mass/Vol] 13.7 g/dL Normal 12.0-16.[address] [facility] Comment on above: Performed By: #### C BC #### [facility] [address] [place] [address] Dr. Katrin Ceja IG # 0.07 10e3/ul Critically high 0.00-0.03 [facility] Comment on above: Performed By: #### C BC #### [facility] [address] [place] [address] Dr. Katrin Ceja IG % 0.6 % Critically high 0.0-0.5 [facility] Comment on above: Performed By: #### C BC #### [facility] [address] [place] [address] Dr. Katrin Ceja LYMPH # 2.9 103/ul Normal 1.2-3.[address] [facility] Comment on above: Performed By: #### C BC #### [facility] [address] [place] [address] Dr. Katrin Ceja Lymphocytes/100 WBC (Bld) 27.1 % Normal 20.5-60.[address] [facility] Comment on above: Performed By: #### C BC #### [facility] [address] [place] [address] Dr. Katrin Ceja MANUAL DIFF REQ NO Normal [facility] Comment on above: Performed By: #### C BC #### [facility] [address] [place] [address] Dr. Katrin Ceja MCH (RBC) [Entitic mass] 29.3 pg Normal 26.7-34.[address] [facility] Comment on above: Performed By: #### C BC #### [facility] [address] [place] [address] Dr. Katrin Ceja MCHC (RBC) [Mass/Vol] 32.6 g/dL Normal 29.9-35.[address] [facility] Comment on above: Performed By: #### C BC #### [facility] [address] [place] [address] Dr. Katrin Ceja MCV (RBC) [Entitic vol] 89.7 fL Normal 81.0-99.[address] [facility] Comment on above: Performed By: #### C BC #### [facility] [address] [address] [address] Katrin Ceja MONO # 0.9 103/ul Critically high 0.3-0.8 [facility] Comment on above: Performed By: #### C BC #### [facility] [address] [address] [address] Katrin Ceja Monocytes/100 WBC (Bld) 8.2 % Normal 1.7-12.[address] [facility] Comment on above: Performed By: #### C BC #### [facility] [address] [place] [address] Dr. Katrin Ceja NEUT # 6.7 103/ul Critically high 1.4-6.5 [facility] Comment on above: Performed By: #### C BC #### [facility] [address] [place] [address] Dr. Katrin Ceja Neutrophils/100 WBC (Bld) 62.1 % Normal 43.0-75.[address] [facility] Comment on above: Performed By: #### C BC #### [facility] [address] [place] [address] Dr. Katrin Ceja Platelet mean volume (Bld) [Entitic vol] 9.7 fL Normal 9.5-13.[address] [facility] Comment on above: Performed By: #### C BC #### [facility] [address] [place] [address] Dr. Katrin Ceja PLT 334 103/ul Normal 150-450 [facility] Comment on above: Performed By: #### C BC #### [facility] [address] [place] [address] Dr. Katrin Ceja RBC 4.68 106/ul Normal 4.20-5.40 [facility] Comment on above: Performed By: #### C BC #### [facility] [address] [place] [address] Dr. Katrin Ceja WBC 10.8 103/ul Normal 4.0-11.0 [facility] Comment on above: Performed By: #### C BC #### [facility] [address] [place] [address] Dr. Katrin Ceja GLYCOHEMOGLOBIN A1Con 2021 ADA RECOMMENDATION ADA THERAPEUTIC TARG ET 6.0 - 7.0 ACTION SUGGESTED > 7.[address] [facility] Comment on above: Performed By: #### C BC #### [facility] [address] [address] [address] Katrin Ceja Glucose [Mass/Vol] 105 mg/dL Normal [facility] Comment on above: Performed By: #### C BC #### [facility] [address] [place] [address] Dr. Katrin Ceja HbA1c (Bld) [Mass fraction] 5.3 % Normal <=6.[address] [facility] Comment on above: Performed By: #### C BC #### [facility] [address] [place] [address] Dr. Katrin Ceja LIPID PROFILEon 07-18-2021 CHOL-HDL RATIO NORM SEE BELOW Normal [facility] Comment on above: Result Comment: 3.3 - 4.4 LOW RISK 4.4 - 7.1 AVERAGE RISK 7.1 - 11.0 MODERATE RISK >11.0 HIGH RISK Performed By: #### L IPID, CMP #### [facility] [address] [place] [address] Dr. Katrin Ceja Cholesterol [Mass/Vol] 302 mg/dL Critically high <=[address] [facility] Comment on above: Performed By: #### L IPID, CMP #### [facility] [address] [place] [address] Dr. Katrin Ceja Cholesterol in HDL [Mass/Vol] 39 mg/dL Normal [facility] Comment on above: Performed By: #### L IPID, CMP #### [facility] [address] [place] [address] Dr. Katrin Ceja Cholesterol in LDL [Mass/Vol] 207.0 mg/dL Normal [facility] Comment on above: Performed By: #### L IPID, CMP #### [facility] [address] [place] [address] Dr. Katrin Ceja Cholesterol.total/Chol esterol in HDL [Mass ratio] 7.7 {ratio} Normal [facility] Comment on above: Performed By: #### L IPID, CMP #### [facility] [address] [address] [address] Katrin Ceja HDL NORMAL > or = 60 mg/dl - LO W CARDIOVASCULAR RISK <40 mg/dl - HIGH CARDIOVASCULAR RISK Normal [facility] Comment on above: Performed By: #### L IPID, CMP #### [facility] [address] [place] [address] Dr. Katrin Ceja LDL CALC NORMAL SEE BELOW Normal [facility] Comment on above: Result Comment: <100 mg/dl OPTIMAL 100 - 129 mg/dl NEAR OR ABOVE OPTIMAL 130 - 159 mg/dl BORDERLINE HIGH 160 - 189 mg/dl HIGH >190 mg/dl VERY HIGH Performed By: #### L IPID, CMP #### [facility] [address] [place] [address] Dr. Katrin Ceja Triglyceride [Mass/Vol] 280 mg/dL Critically high <=[address] [facility] Comment on above: Performed By: #### L IPID, CMP #### [facility] [address] [place] [address] Dr. Katrin Ceja VLDL CALC 56.0 mg/dL Normal [facility] Comment on above: Performed By: #### L IPID, CMP #### [facility] [address] [place] [address] Dr. Katrin Ceja PROF 14(COMP METB)on 022 Albumin [Mass/Vol] 3.5 g/dL Normal 3.5-5.0 [facility] Comment on above: Performed By: #### L IPID, CMP #### [facility] [address] [place] [address] Dr. Katrin Ceja Albumin/Globulin [Mass ratio] 0.7 {ratio} Normal [facility] Comment on above: Performed By: #### L IPID, CMP #### [facility] [address] [place] [address] Dr. Katrin Ceja ALP [Catalytic activity/Vol] 291 U/L Critically high 38-[address] [facility] Comment on above: Performed By: #### L IPID, CMP #### [facility] [address] [address] [address] Katrin Ceja ALT [Catalytic activity/Vol] 174 U/L Critically high 9-[address] [facility] Comment on above: Performed By: #### L IPID, CMP #### [facility] [address] [place] [address] Dr. Katrin Ceja Anion gap [Moles/Vol] 15.3 mmol/L Normal [facility] Comment on above: Performed By: #### L IPID, CMP #### [facility] [address] [place] [address] Dr. Katrin Ceja AST [Catalytic activity/Vol] 97 U/L Critically high 14-[address] [facility] Comment on above: Performed By: #### L IPID, CMP #### [facility] [address] [place] [address] Dr. Katrin Ceja Bilirubin [Mass/Vol] 0.4 mg/dL Normal 0.2-1.[address] [facility] Comment on above: Performed By: #### L IPID, CMP #### [facility] [address] [place] [address] Dr. Katrin Ceja Calcium [Mass/Vol] 9.3 mg/dL Normal 8.4-10.2 [facility] Comment on above: Performed By: #### L IPID, CMP #### [facility] [address] [place] [address] Dr. Katrin Ceja Chloride [Moles/Vol] 99 mmol/L Normal 98-[address] [facility] Comment on above: Performed By: #### L IPID, CMP #### [facility] [address] [place] [address] Dr. Katrin Ceja CO2 [Moles/Vol] 24.1 mmol/L Normal 22.0-30.0 [facility] Comment on above: Performed By: #### L IPID, CMP #### [facility] [address] [place] [address] Dr. Katrin Ceja Creatinine [Mass/Vol] 0.65 mg/dL Normal 0.52-1.[address] [facility] Comment on above: Performed By: #### L IPID, CMP #### [facility] [address] [place] [address] Dr. Katrin Ceja EGFR-AF INDIAN >60 Normal >=60 [facility] Comment on above: Performed By: #### L IPID, CMP #### [facility] [address] [address] [address] Katrin Ceja EGFR-NON AF INDIAN >60 Normal >=[address] [facility] Comment on above: Performed By: #### L IPID, CMP #### [facility] [address] [place] [address] Dr. Katrin Ceja Globulin (S) [Mass/Vol] 5.0 g/dL Normal [facility] Comment on above: Performed By: #### L IPID, CMP #### [facility] [address] [place] [address] Dr. Katrin Ceja Glucose [Mass/Vol] 86 mg/dL Normal 74-106 [facility] Comment on above: Performed By: #### L IPID, CMP #### [facility] [address] [place] [address] Dr. Katrin Ceja Potassium [Moles/Vol] 4.4 mmol/L Normal 3.4-5.[address] [facility] Comment on above: Performed By: #### L IPID, CMP #### [facility] [address] [place] [address] Dr. Katrin Ceja Protein [Mass/Vol] 8.5 g/dL Critically high 6.1-8.[address] [facility] Comment on above: Performed By: #### L IPID, CMP #### [facility] [address] [place] [address] Dr. Katrin Ceja Sodium [Moles/Vol] 134 mmol/L Critically low 137-145 [facility] Comment on above: Performed By: #### L IPID, CMP #### [facility] [address] [place] [address] Dr. Katrin Ceja Urea nitrogen [Mass/Vol] 8.0 mg/dL Normal 7.0-17.0 [facility] Comment on above: Performed By: #### L IPID, CMP #### [facility] [address] [place] [address] Dr. Katrin Ceja Urea nitrogen/Creatinine [Mass ratio] 12.3 mg/mg Normal [facility] Comment on above: Performed By: #### L IPID, CMP #### [facility] [address] [place] [address] Dr. Katrin Ceja AMYLASEon 05-01-2021 AMYL <30 Critically low 31-110 [facility] Comment on above: Performed By: #### P REG #### [facility] [address] [place] [address] Dr. Katrin Ceja CBC AUTO DIFFon 05-01-2021 BASO # 0.0 103/ul Normal 0.0-0.[address] [facility] Comment on above: Performed By: #### L IPID, CMP #### [facility] [address] [place] [address] Dr. Katrin Ceja Basophils/100 WBC (Bld) 0.3 % Normal 0.2-2.0 [facility] Comment on above: Performed By: #### L IPID, CMP #### [facility] [address] [place] [address] Dr. Katrin Ceja EO # 0.1 103/ul Normal 0.0-0.[address] [facility] Comment on above: Performed By: #### L IPID, CMP #### [facility] [address] [place] [address] Dr. Katrin Ceja Eosinophils/100 WBC (Bld) 0.4 % Critically low 0.9-7.0 [facility] Comment on above: Performed By: #### L IPID, CMP #### [facility] [address] [place] [address] Dr. Katrin Ceja Erythrocyte distribution width (RBC) [Ratio] 13.0 % Normal 11.0-15.0 [facility] Comment on above: Performed By: #### L IPID, CMP #### [facility] [address] [place] [address] Dr. Katrin Ceja Hematocrit (Bld) [Volume fraction] 37.7 % Normal 36.0-48.[address] [facility] Comment on above: Performed By: #### L IPID, CMP #### [facility] [address] [place] [address] Dr. Katrin Ceja Hemoglobin (Bld) [Mass/Vol] 12.5 g/dL Normal 12.0-16.[address] [facility] Comment on above: Performed By: #### L IPID, CMP #### [facility] [address] [place] [address] Dr. Katrin Ceja IG # 0.09 10e3/ul Critically high 0.00-0.03 [facility] Comment on above: Performed By: #### L IPID, CMP #### [facility] [address] [place] [address] Dr. Katrin Ceja IG % 0.6 % Critically high 0.0-0.5 [facility] Comment on above: Performed By: #### L IPID, CMP #### [facility] [address] [place] [address] Dr. Katrin Ceja LYMPH # 1.9 103/ul Normal 1.2-3.[address] [facility] Comment on above: Performed By: #### L IPID, CMP #### [facility] [address] [place] [address] Dr. Katrin Ceja Lymphocytes/100 WBC (Bld) 12.1 % Critically low 20.5-60.[address] [facility] Comment on above: Performed By: #### L IPID, CMP #### [facility] [address] [place] [address] Dr. Katrin Ceja MANUAL DIFF REQ NO Normal [facility] Comment on above: Performed By: #### L IPID, CMP #### [facility] [address] [place] [address] Dr. Katrin Ceja MCH (RBC) [Entitic mass] 28.8 pg Normal 26.7-34.[address] [facility] Comment on above: Performed By: #### L IPID, CMP #### [facility] [address] [place] [address] Dr. Katrin Ceja MCHC (RBC) [Mass/Vol] 33.2 g/dL Normal 29.9-35.[address] [facility] Comment on above: Performed By: #### L IPID, CMP #### [facility] [address] [place] [address] Dr. Katrin Ceja MCV (RBC) [Entitic vol] 86.9 fL Normal 81.0-99.[address] [facility] Comment on above: Performed By: #### L IPID, CMP #### [facility] [address] [place] [address] Dr. Katrin Ceja MONO # 1.1 103/ul Critically high 0.3-0.8 [facility] Comment on above: Performed By: #### L IPID, CMP #### [facility] [address] [place] [address] Dr. Katrin Ceja Monocytes/100 WBC (Bld) 7.1 % Normal 1.7-12.[address] [facility] Comment on above: Performed By: #### L IPID, CMP #### [facility] [address] [place] [address] Dr. Katrin Ceja NEUT # 12.3 103/ul Critically high 1.4-6.5 [facility] Comment on above: Performed By: #### L IPID, CMP #### [facility] [address] [place] [address] Dr. Katrin Ceja Neutrophils/100 WBC (Bld) 79.5 % Critically high 43.0-75.[address] [facility] Comment on above: Performed By: #### L IPID, CMP #### [facility] [address] [place] [address] Dr. Katrin Ceja Platelet mean volume (Bld) [Entitic vol] 8.7 fL Critically low 9.5-13.[address] [facility] Comment on above: Performed By: #### L IPID, CMP #### [facility] [address] [place] [address] Dr. Katrin Ceja PLT 329 103/ul Normal 150-450 [facility] Comment on above: Performed By: #### L IPID, CMP #### [facility] [address] [place], [place] [address] Dr. Katrin Ceja RBC 4.34 106/ul Normal 4.20-5.40 [facility] [facility] Comment on above: Performed By: #### L IPID, CMP #### [facility] [address] [place], [place] [address] Dr. Katrin Ceja WBC 15.5 103/ul Critically high 4.0-11.0 [facility] Comment on above: Performed By: #### L IPID, CMP #### [facility] [address] [place], [place] [address] ABD/PELV W CONon [...] by: HILDA RAHMAN Date: 2021-05-01 20:[address] [facility] LIPASEon 05-01-2021 Lipase [Catalytic activity/Vol] 64.0 U/L Normal 23.0-300.[address] [facility] Comment on above: Performed By: #### P REG #### [facility] [address] [place] [address] Dr. Katrin Ceja LIVER PROFILEon 05-01-2021 Albumin [Mass/Vol] 3.3 g/dL Critically low 3.5-5.0 [facility] Comment on above: Performed By: #### L IPID, CMP #### [facility] [address] [place] [address] Dr. Katrin Ceja Albumin/Globulin [Mass ratio] 0.6 {ratio} Normal [facility] Comment on above: Performed By: #### L IPID, CMP #### [facility] [address] [place] [address] Dr. Katrin Ceja ALP [Catalytic activity/Vol] 412 U/L Critically high 38-[address] [facility] Comment on above: Performed By: #### L IPID, CMP #### [facility] [address] [place] [address] Dr. Katrin Ceja ALT [Catalytic activity/Vol] 124 U/L Critically high 9-[address] [facility] Comment on above: Performed By: #### L IPID, CMP #### [facility] [address] [place] [address] Dr. Katrin Ceja AST [Catalytic activity/Vol] 61 U/L Critically high 14-[address] [facility] Comment on above: Performed By: #### L IPID, CMP #### [facility] [address] [place] [address] [address] Katrin Ceja BILI, CONJUGATED 0.2 mg/dL Normal 0.0-0.3 [facility] Comment on above: Performed By: #### L IPID, CMP #### [facility] [address] [place] [address] Dr. Katrin Ceja Bilirubin [Mass/Vol] 0.4 mg/dL Normal 0.2-1.[address] [facility] Comment on above: Performed By: #### L IPID, CMP #### [facility] [address] [place] [address] Dr. Katrin Ceja Globulin (S) [Mass/Vol] 5.1 g/dL Normal [facility] Comment on above: Performed By: #### L IPID, CMP #### [facility] [address] [place] [address] Dr. Katrin Ceja Protein [Mass/Vol] 8.4 g/dL Critically high 6.1-8.[address] [facility] Comment on above: Performed By: #### L IPID, CMP #### [facility] [address] [place] [address] Dr. Katrin Ceja PREG HCG QUALon 05-01-2021 , QUAL Negative Normal NEGATIVE [facility] Comment on above: Performed By: #### P REG #### [facility] [address] [place] [address] Dr. Katrin Ceja PROF CHEM 8 (BAS METB)on Anion gap [Moles/Vol] 17.1 mmol/L Normal [facility] Comment on above: Performed By: #### P REG #### [facility] [address] [place] [address] Dr. Katrin Ceja Calcium [Mass/Vol] 8.9 mg/dL Normal 8.4-10.2 [facility] Comment on above: Performed By: #### P REG #### [facility] [address] [place] [address] [address] Katrin Ceja Chloride [Moles/Vol] 100 mmol/L Normal 98-[address] [facility] Comment on above: Performed By: #### P REG #### [facility] [address] [place] [address] [address] Katrin Ceja CO2 [Moles/Vol] 21.1 mmol/L Critically low 22.0-30.[address] [facility] Comment on above: Performed By: #### P REG #### [facility] [address] [place] [address] Dr. Katrin Ceja Creatinine [Mass/Vol] 0.78 mg/dL Normal 0.52-1.[address] [facility] Comment on above: Performed By: #### P REG #### [facility] [address] [place] [address] Dr. Katrin Ceja EGFR-AF INDIAN >60 Normal >=60 [facility] Comment on above: Performed By: #### P REG #### [facility] [address] [place] [address] Dr. Katrin Ceja EGFR-NON AF INDIAN >60 Normal >=[address] [facility] Comment on above: Performed By: #### P REG #### [facility] [address] [place] [address] Dr. Katrin Ceja Glucose [Mass/Vol] 97 mg/dL Normal 74-106 [facility] Comment on above: Performed By: #### P REG #### [facility] [address] [place] [address] Dr. Katrin Ceja Potassium [Moles/Vol] 4.2 mmol/L Normal 3.4-5.[address] [facility] Comment on above: Performed By: #### P REG #### [facility] [address] [place] [address] Dr. Katrin Ceja Sodium [Moles/Vol] 134 mmol/L Critically low 137-145 [facility] Comment on above: Performed By: #### P REG #### [facility] [address] [place] [address] Dr. Katrin Ceja Urea nitrogen [Mass/Vol] 6.0 mg/dL Critically low 7.0-17.[address] [facility] Comment on above: Performed By: #### P REG #### [facility] [address] [place] [address] Dr. Katrin Ceja Urea nitrogen/Creatinine [Mass ratio] 7.7 mg/mg Normal [facility] Comment on above: Performed By: #### P REG #### [facility] [address] [place] [address] Dr. Katrin Ceja CBC AUTO DIFFon 04-29-2021 BASO # 0.1 103/ul Normal 0.0-0.[address] [facility] Comment on above: Performed By: #### L IPID, CMP #### [facility] [address] [place] [address] Dr. Katrin Ceja Basophils/100 WBC (Bld) 0.4 % Normal 0.2-2.[address] [facility] Comment on above: Performed By: #### L IPID, CMP #### [facility] [address] [place] [address] Dr. Katrin Ceja EO # 0.2 103/ul Normal 0.0-0.[address] [facility] Comment on above: Performed By: #### L IPID, CMP #### [facility] [address] [place] [address] Dr. Katrin Ceja Eosinophils/100 WBC (Bld) 1.7 % Normal 0.9-7.[address] [facility] Comment on above: Performed By: #### L IPID, CMP #### [facility] [address] [place] [address] Dr. Katrin Ceja Erythrocyte distribution width (RBC) [Ratio] 12.9 % Normal 11.0-15.[address] [facility] Comment on above: Performed By: #### L IPID, CMP #### [facility] [address] [place] [address] Dr. Katrin Ceja Hematocrit (Bld) [Volume fraction] 39.0 % Normal 36.0-48.[address] [facility] Comment on above: Performed By: #### L IPID, CMP #### [facility] [address] [place] [address] [address] Katrin Ceja Hemoglobin (Bld) [Mass/Vol] 12.9 g/dL Normal 12.0-16.[address] [facility] Comment on above: Performed By: #### L IPID, CMP #### [facility] [address] [place] [address] Dr. Katrin Ceja IG # 0.08 10e3/ul Critically high 0.00-0.03 [facility] Comment on above: Performed By: #### L IPID, CMP #### [facility] [address] [place] [address] Dr. Katrin Ceja IG % 0.6 % Critically high 0.0-0.5 [facility] Comment on above: Performed By: #### L IPID, CMP #### [facility] [address] [place] [address] Dr. Katrin Ceja LYMPH # 3.2 103/ul Normal 1.2-3.8 [facility] Comment on above: Performed By: #### L IPID, CMP #### [facility] [address] [place] [address] Dr. Katrin Ceja Lymphocytes/100 WBC (Bld) 24.4 % Normal 20.5-60.[address] [facility] Comment on above: Performed By: #### L IPID, CMP #### [facility] [address] [place] [address] Dr. Katrin Ceja MANUAL DIFF REQ NO Normal [facility] Comment on above: Performed By: #### L IPID, CMP #### [facility] [address] [place] [address] Dr. Katrin Ceja MCH (RBC) [Entitic mass] 29.1 pg Normal 26.7-34.0 [facility] Comment on above: Performed By: #### L IPID, CMP #### [facility] [address] [place] [address] Dr. Katrin Ceja MCHC (RBC) [Mass/Vol] 33.1 g/dL Normal 29.9-35.2 [facility] Comment on above: Performed By: #### L IPID, CMP #### [facility] [address] [place] [address] Dr. Katrin Ceja MCV (RBC) [Entitic vol] 88.0 fL Normal 81.0-99.[address] [facility] Comment on above: Performed By: #### L IPID, CMP #### [facility] [address] [place] [address] Dr. Katrin Ceja MONO # 1.2 103/ul Critically high 0.3-0.8 [facility] Comment on above: Performed By: #### L IPID, CMP #### [facility] [address] [place] [address] Dr. Katrin Ceja Monocytes/100 WBC (Bld) 9.2 % Normal 1.7-12.[address] [facility] Comment on above: Performed By: #### L IPID, CMP #### [facility] [address] [place] [address] Dr. Katrin Ceja NEUT # 8.3 103/ul Critically high 1.4-6.5 [facility] Comment on above: Performed By: #### L IPID, CMP #### [facility] [address] [place] [address] Dr. Katrin Ceja Neutrophils/100 WBC (Bld) 63.7 % Normal 43.0-75.0 [facility] Comment on above: Performed By: #### L IPID, CMP #### [facility] [address] [place] [address] Dr. Katrin Ceja Platelet mean volume (Bld) [Entitic vol] 9.2 fL Critically low 9.5-13.5 [facility] Comment on above: Performed By: #### L IPID, CMP #### [facility] [address] [place] [address] Dr. Katrin Ceja PLT 384 103/ul Normal 150-450 [facility] Comment on above: Performed By: #### L IPID, CMP #### [facility] [address] [place] [address] Dr. Katrin Ceja RBC 4.43 106/ul Normal 4.20-5.40 [facility] Comment on above: Performed By: #### L IPID, CMP #### [facility] [address] [place], [place] [address] Dr. Katrin Ceja WBC 13.1 103/ul Critically high 4.0-11.0 [facility] Comment on above: Performed By: #### L IPID, CMP #### [facility] [address] [place], [place] [address] ABD/PELV W CONon [...] by: Lorenzo LAN Date: 2021-04-29 02:[address] [facility] LACTATE/LACTIC ACIDon 2020 Lactate [Moles/Vol] 1.2 mmol/L Normal 0.7-2.0 [facility] Comment on above: Performed By: #### C BC #### [facility] [address] [place] [address] Dr. Katrin Ceja PROF 14(COMP METB)on 021 Albumin [Mass/Vol] 3.4 g/dL Critically low 3.5-5.0 [facility] Comment on above: Performed By: #### C BC #### [facility] [address] [place] [address] Dr. Katrin Ceja Albumin/Globulin [Mass ratio] 0.7 {ratio} Normal [facility] Comment on above: Performed By: #### C BC #### [facility] [address] [place] [address] Dr. Katirn Ceja ALP [Catalytic activity/Vol] 359 U/L Critically high 38-[address] [facility] Comment on above: Performed By: #### C BC #### [facility] [address] [place] [address] Dr. Katrin Cjea ALT [Catalytic activity/Vol] 193 U/L Critically high 9-[address] [facility] Comment on above: Performed By: #### C BC #### [facility] [address] [place] [address] Dr. Katrin Ceja Anion gap [Moles/Vol] 13.3 mmol/L Normal [facility] Comment on above: Performed By: #### C BC #### [facility] [address] [place] [address] Dr. Katrin Ceja AST [Catalytic activity/Vol] 115 U/L Critically high 14-[address] [facility] Comment on above: Performed By: #### C BC #### [facility] [address] [place] [address] [address] Katrin Ceja Bilirubin [Mass/Vol] 0.5 mg/dL Normal 0.2-1.3 [facility] Comment on above: Performed By: #### C BC #### [facility] [address] [address] [address] Katrin Ceja Calcium [Mass/Vol] 9.5 mg/dL Normal 8.4-10.[address] [facility] Comment on above: Performed By: #### C BC #### [facility] [address] [place] [address] Dr. Katrin Ceja Chloride [Moles/Vol] 101 mmol/L Normal 98-[address] [facility] Comment on above: Performed By: #### C BC #### [facility] [address] [place] [address] Dr. Katrin Ceja CO2 [Moles/Vol] 23.7 mmol/L Normal 22.0-30.0 [facility] Comment on above: Performed By: #### C BC #### [facility] [address] [place] [address] Dr. Katrin Ceja Creatinine [Mass/Vol] 0.83 mg/dL Normal 0.52-1.[address] [facility] Comment on above: Performed By: #### C BC #### [facility] [address] [place] [address] Dr. Katrin Ceja EGFR-AF INDIAN >60 Normal >=60 [facility] Comment on above: Performed By: #### C BC #### [facility] [address] [place] [address] Dr. Katrin Ceja EGFR-NON AF INDIAN >60 Normal >=[address] [facility] Comment on above: Performed By: #### C BC #### [facility] [address] [place] [address] Dr. Katrin Ceja Globulin (S) [Mass/Vol] 5.1 g/dL Normal [facility] Comment on above: Performed By: #### C BC #### [facility] [address] [place] [address] Dr. Katrin Ceja Glucose [Mass/Vol] 102 mg/dL Normal 74-106 [facility] Comment on above: Performed By: #### C BC #### [facility] [address] [place] [address] [address] Katrin Ceja Potassium [Moles/Vol] 4.0 mmol/L Normal 3.4-5.[address] [facility] Comment on above: Performed By: #### C BC #### [facility] [address] [place] [id number] Katrin Ceja Protein [Mass/Vol] 8.5 g/dL Critically high 6.1-8.[address] [facility] Comment on above: Performed By: #### C BC #### [facility] [address] [place] [address] [address] Katrin Ceja Sodium [Moles/Vol] 134 mmol/L Critically low 137-145 [facility] Comment on above: Performed By: #### C BC #### [facility] [address] [place] [address] [address] Katrin Ceja Urea nitrogen [Mass/Vol] 6.0 mg/dL Critically low 7.0-17.[address] [facility] Comment on above: Performed By: #### C BC #### [facility] [address] [place] [address] [address] Katrin Ceja Urea nitrogen/Creatinine [Mass ratio] 7.2 mg/mg Normal [facility] Comment on above: Performed By: #### C BC #### [facility] [id number] Katrin Ceja XR CHEST 1 Von [...] by: HILDA GU Date: 2021-04-28 23:[address] [facility] Acetaminophen (Tylenol) Leve kit 03-22-2019 Acetaminophen [Mass/Vol] <10 Normal 10.0-30.0 [facility] Comment on above: Performed By: #### 1 4581-3, 46283-5, 72494-7, 43136-4t0, 18569-0, 09253-6 #### [address] [place], [place] Alcohol (Ethanol) Levelon Ethanol [Mass/Vol] mg/dL Normal 0.00-0.00 [facility] Comment on above: Performed By: #### 1 4581-3, 34830-0, 54550-0, 68012-9w8, 27386-3, 58423-8 #### [address] CBC with Differentialon Basophils (Bld) [#/Vol] 0.10 thou/mcL Normal 0.00-0.20 [facility] Comment on above: Performed By: #### 5 7021-8 #### [address] Basophils/100 WBC (Bld) 0.7 % Normal 0.0-2.0 [facility] Comment on above: Performed By: #### 5 7021-8 #### [address] Eosinophils (Bld) [#/Vol] 0.40 thou/mcL Normal 0.00-0.70 [facility] Comment on above: Performed By: #### 5 7021-8 #### [address] Eosinophils/100 WBC (Bld) 3.7 % Normal 0.0-7.0 [facility] Comment on above: Performed By: #### 5 7021-8 #### [facility] [address] [place] [address] Erythrocyte distribution width (RBC) [Entitic vol] 12.6 % Normal 11.0-14.8 [facility] Comment on above: Performed By: #### 5 7021-8 #### [facility] [address] [place], [place] Hematocrit (Bld) [Volume fraction] 38.5 % Normal 35.0-45.0 [facility] Comment on above: Performed By: #### 5 7021-8 #### [facility] [address] [place], [place] Hemoglobin (Bld) [Mass/Vol] 13.3 g/dL Normal 12.0-16.0 [facility] Comment on above: Performed By: #### 5 7021-8 #### [facility] [address] [place], [place] Lymphocytes (Bld) [#/Vol] 3.10 thou/mcL Normal 1.00-4.80 [facility] Comment on above: Performed By: #### 5 7021-8 #### [address] [place], [place] Lymphocytes/100 WBC (Bld) 30.1 % Normal 22.0-44.0 [facility] Comment on above: Performed By: #### 5 7021-8 #### [facility] [address] [place], [place] MCH (RBC) [Entitic mass] 30.8 Picograms Normal 27.0-34.0 [facility] Comment on above: Performed By: #### 5 7021-8 #### [facility] [address] [place], [place] MCHC (RBC) [Mass/Vol] 34.7 g/dL Normal 32.0-36.0 [facility] Comment on above: Performed By: #### 5 7021-8 #### [facility] [address] [place], [place] MCV (RBC) [Entitic vol] 88.8 fL Normal 80.0-97.0 [facility] Comment on above: Performed By: #### 5 7021-8 #### [facility] [address] [place], [place] Monocytes (Bld) [#/Vol] 1.10 thou/mcL High 0.00-0.90 [facility] Comment on above: Performed By: #### 5 7021-8 #### [facility] [address] [place], [place] Monocytes/100 WBC (Bld) 10.4 % Normal 0.0-12.0 [facility] Comment on above: Performed By: #### 5 7021-8 #### [facility] [address] [place], [place] Neutrophils (Bld) [#/Vol] 5.60 thou/mcL Normal 1.80-7.70 [facility] Comment on above: Performed By: #### 5 7021-8 #### [facility] [address] [place], [place] Neutrophils/100 WBC (Bld) 55.1 % Normal 40.0-70.0 [facility] Comment on above: Performed By: #### 5 7021-8 #### [facility] [address] [place], [place] Platelet mean volume (Bld) [Entitic vol] 7.5 fL Normal 6.2-12.1 [facility] Comment on above: Performed By: #### 5 7021-8 #### [facility] [address] [place], [place] Platelets (Bld) [#/Vol] 280 thou/mcL Normal 142-424 [facility] Comment on above: Performed By: #### 5 7021-8 #### [facility] [address] [place], [place] RBC (Bld) [#/Vol] 4.33 million/mcL Normal 3.80-5.10 [facility] Comment on above: Performed By: #### 5 7021-8 #### [facility] [address] [place], [place] WBC (Bld) [#/Vol] 10.2 thou/mcL Normal 4.6-10.2 [facility] Comment on above: Performed By: #### 5 7021-8 #### [facility] [address] [place], [place] Comprehensive Metabolic Pane kit 03-22-2019 Albumin [Mass/Vol] 4.2 g/dL Normal 3.5-4.8 [facility] Comment on above: Performed By: #### 1 4581-3, 93176-7, 49653-2, 69356-9q0, 88847-3, 87199-0 #### [facility] [address] [place], [place] ALP [Catalytic activity/Vol] 96 Units/L High 32-91 [facility] Comment on above: Performed By: #### 1 4581-3, 08914-3, 02384-9, 53343-7u0, 63864-0, 48381-8 #### [facility] [address] [place], [place] ALT [Catalytic activity/Vol] 25 Units/L Normal 14-63 [facility] Comment on above: Performed By: #### 1 4581-3, 33380-1, 92264-7, 05955-7c2, 83723-7, 01791-9 #### [address] [place], [place] Anion gap [Moles/Vol] 9.0 mmol/L Normal 6.0-18.0 [facility] Comment on above: Performed By: #### 1 4581-3, 13976-3, 68246-2, 17057-1a3, 22406-4, 04948-6 #### [address] [address] [place], [place] AST [Catalytic activity/Vol] 24 Units/L Normal 15-41 [facility] Comment on above: Performed By: #### 1 4581-3, 06669-0, 15508-7, 82179-8l6, 54769-4, 82682-9 #### [facility] [address] [place], [place] Bilirubin [Mass/Vol] 0.5 mg/dL Normal 0.3-1.2 [facility] Comment on above: Performed By: #### 1 4581-3, 78936-7, 57506-9, 61185-7c0, 47982-9, 65768-0 #### [facility] [address] [place], [place] Calcium [Mass/Vol] 8.9 mg/dL Normal 8.9-10.3 [facility] Comment on above: Performed By: #### 1 4581-3, 13749-2, 41326-2, 64113-0s0, 19420-4, 00937-1 #### [facility] [address] [place], [place] Chloride [Moles/Vol] 107 mmol/L Normal 98-107 [facility] Comment on above: Performed By: #### 1 4581-3, 89282-8, 78375-5, 33817-1v4, 93759-3, 83101-7 #### [facility] [address] [place], [place] CO2 [Moles/Vol] 23 mmol/L Normal 22-32 [facility] Comment on above: Performed By: #### 1 4581-3, 46782-6, 21982-1, 03449-6w3, 96737-5, 88426-9 #### [facility] [address] [place], [place] Creatinine [Mass/Vol] 0.68 mg/dL Normal 0.60-1.30 [facility] Comment on above: Performed By: #### 1 4581-3, 72174-5, 27860-7, 94290-0n6, 74627-9, 78117-9 #### [facility] [address] [place], [place] Glucose [Mass/Vol] 90 mg/dL Normal 70-99 [facility] Comment on above: Result Comment: U pdated ADA Reference Range A normal fasting glucose concentration is less than 100 mg/dL. An impaired fasting glucose concentration is 100-125 mg/dL. A provisional diagnosis of diabetes mellitus can be made when a fasting glucose concentration is greater than 125 mg/dL. Performed By: #### 1 4581-3, 33713-0, 17374-3, 46388-9n4, 77287-9, 97110-7 #### [facility] [address] [place], [place] Potassium [Moles/Vol] 3.4 mmol/L Low 3.6-5.1 [facility] Comment on above: Performed By: #### 1 4581-3, 04350-6, 10637-0, 66620-5h5, 54240-9, 09526-9 #### [facility] [address] [place], [place] Protein [Mass/Vol] 7.4 g/dL Normal 6.1-7.9 [facility] Comment on above: Performed By: #### 1 4581-3, 18017-7, 73283-9, 30720-2p0, 00164-1, 72135-0 #### [facility] [address] [place], [place] Sodium [Moles/Vol] 139 mmol/L Normal 136-145 [facility] Comment on above: Performed By: #### 1 4581-3, 71556-7, 08475-7, 72156-2e6, 10024-8, 85112-3 #### [facility] [address] [place], [place] Urea nitrogen (BldV) [Mass/Vol] 17 mg/dL Normal 8-20 [facility] Comment on above: Performed By: #### 1 4581-3, 98947-3, 46988-4, 70176-5d6, 11612-7, 38014-1 #### [facility] [address], [place] Drug Abuse Screen 8 Urineon 03-22-2019 Barbiturates Screen Ql (U) Negative Normal [facility] Comment on above: Performed By: #### 1 2286-1 #### [facility] [address], [place] Amphetamines Ql (U) Positive Abnormal [facility] Comment on above: Result Comment: Conf irmatory testing available upon request. Performed By: #### 1 2286-1 #### [facility] [address], [place] Benzodiazepines cutoff Screen (U) [Mass/Vol] Negative Normal [facility] Comment on above: Performed By: #### 1 2286-1 #### [facility] [address], [place] Cocaine Ql (U) Positive Abnormal [facility] Comment on above: Result Comment: Conf irmatory testing available upon request. Performed By: #### 1 2286-1 #### [facility] [address], [place] Interpretation and review of laboratory results Negative Normal [facility] Comment on above: Performed By: #### 1 2286-1 #### [facility] [address], [place] Methadone Screen Ql (U) Negative Normal NEGATIVE-N EGATIVE [facility] Comment on above: Performed By: #### 1 2286-1 #### [facility] [address] [place] [address] Opiates Screen Ql (U) Negative Normal [facility] Comment on above: Result Comment: INTE RPRETATION [...] ONLY. Performed By: #### 1 2286-1 #### [facility] [address], [place] Tetrahydrocannabinol Screen Ql (U) Positive Abnormal [facility] Comment on above: Result Comment: Conf irmatory testing available upon request. Performed By: #### 1 2286-1 #### [facility] [address], [place] ED Pat Zainon 03-22-2019 ED [address] [place] [id number] [place], [place] [address] Emergency Department Discharge Instructions JENNIFER AGUILLON , [...] los [facility] Name JENNIFER AGUILLON PLEASE READ THE FOLLOWING REGARDING YOUR MEDICATIONS [...] doses are changed, or new medications (including shln-tal-fufmbgw products) are added. If you have any [...] UNTIL YOU TALK TO YOUR DOCTOR None [facility] [address] [place], [place] [address] Emergency Department Discharge Instructions Name: JENNIFER AGUILLON Current Date: 03/22/2019 19:32:22 : 1995 Primary Physician: Physician, No PCP We would like to thank you for choosing [facility] for your emergency medical needs. We [...] and the health of those around you. [facility] offers many resources to help with smoking cessation. Call the [employer] Tobacco Quit Line at 0-975-ZDHQNOW ( ). High blood pressure: Your screening [...] deadly infections. Discuss this with your child's c engineer, or Public Health Department. Your family practice doctor can determine if you need pneumonia or flu vaccine. The [facility] Department can be reached at . Substance Abuse Program: Concerns with addiction to alcohol, benzodiazepines (Ativan or Xanax) and Opiates (Heroin, Percocet, OxyContin, Methadone or Fentanyl)? [facility] offers an inpatient Substance Abuse Program to help treat the symptoms associated with medical detoxification of addictive substances. The new program offers care for non- adults (18 and older) looking to break the chain to addictive chemicals. The Substance Abuse Program is a voluntary inpatient admission and it starts with a pre-screening phone call to a social services coordinator. During the call, goals and objectives for recovery and how the patient will transition to outpatient care will be established. Please call [phone] to get help today. Domestic Violence: If you are a victim of domestic violence (physical, verbal, or emotional), you are not alone. Discuss this with your physician or a friend and call the [place] Domestic Violence Hotline or [place] Domestic Violence Hotline for assistance and support. [...] physician, call the Physician Referral Line at (627) 109-ZARP (8894). Suicide Hotline: Your mental and emotional well-being is important. If you are in a mental health crisis or are having thoughts of suicide, please call the [facility] suicide hotline, anytime day or night, at 2-900-602-UGAB (9530). Community Glassware Defect Repairer: You may be contacted by your local fire department for a follow up visit from a community transportation services representative. The community transportation services representative can help with a home safety check; follow up care, and general home care management. Pharmacy Information: Below is a list of 24 hour pharmacies that we are aware of. We suggest that you call the specific pharmacy for their hours before traveling to a location. Hours may vary on holidays. [facility] [place] [id number] [place], [place] [phone] [address] [place], [place] [address] [phone] [address] [place], [place] [address] [phone] [address] [place], [place] [phone] [address] [place], [place] [phone] [address] [place], [place] [phone] [place] [address] [phone] Take all medications as directed. If you need prescription assistance, contact the following agencies: ?? Partnership for Prescription Assistance at or www.pparx.org ?? [facility] at or www.[employer]rx.org ?? www.[employer] is a site with many valuable coupons [...] Patient Signature Date Time Provider Signature Normal [facility] GFRaaon 03-22-2019 GFR/1.73 sq M predicted among blacks MDRD (S/P/Bld) [Vol rate/Area] mL/min/{1.73_m2} Normal [facility] Comment on above: Result Comment: The MDRD equation has not been validated for those over 70 years, women, patients with serious co-morbid conditions, or with extremes of body size, muscle mass of nutritional status. Performed By: #### 1 4581-3, 55057-9, 16423-8, 24007-2a6, 06984-5, 28534-4 #### [facility] [address], [place] GFRbbon 03-22-2019 GFR/1.73 sq M predicted among non-blacks MDRD (S/P/Bld) [Vol rate/Area] mL/min/{1.73_m2} Normal [facility] Comment on above: Performed By: #### 1 4581-3, 76710-4, 11294-6, 59648-3w2, 66789-1, 13622-4 #### [facility] [address], [place] Test Urineon 03-22 HCG ( test) Ql (U) Negative Normal [facility] Comment on above: Performed By: #### 2 106-3 #### [facility], [facility] [place], [place] Salicylate Levelon 9 Salicylates [Mass/Vol] mg/dL Normal 2.8-30.0 [facility] Comment on above: Performed By: #### 1 4581-3, 72224-4, 73188-7, 60916-0k0, 59186-4, 97008-4 #### [place] [address], [place] Medication Managementon 10-0 Medication Management [id number]#[id number] F Normal [facility] ED Clinical Summaryon 2017 ED Clinical Summary [facility] [address] [place] [address] ed Clinical SummaryPERSON INFORMATIONName: JENNIFER AGUILLON Age: 22 Years Sex: FEMALEDOB: [birth year] MRN: Acct#:Visit Reason: Dental pain; Dental pain; DENTAL PAIN Arrival: 04/11/18 20:21:00 Discharge: 04/11/18 20:55:00LOS: 000 00:34 Check In: 04/11/18 20:21:00 Checkout:04/11/18 20:55:00Address:[address] [facility] [address]FAI: TAI WATTS INFORMATIONProvider Role Assigned UnassignedAlistair Max [...] 04/11/18 20:29:00.Dental caries, dental painHistory of Present Ywnsjei20-jccf-wwt white female presents to the emergency room [...] her poor dental state..Impression and PlanDiagnosisDental caries (ZZF08-LV K02.9, Discharge, Medical)Pain, dental (TVL02-YW K08.89, Discharge, Medical)PlanCondition: Improved, Stable.Disposition: Discharged: to home.Prescriptions: Launch prescriptionsPharmacy:tra MADol 50 mg oral tablet (Prescribe): 50 mg = 1 tab(s), PO, q4hr, PRN: as needed for pain, 12 tab(s), 0 Refill(s)amoxicillin 500 mg oral capsule (Prescribe): 1,000 mg = 2 cap(s), PO, BID, 40 cap(s), 0 Refill(s).Patient was given the following educational materials: Dental Pain, Ixnu-jm-Lqfe, Dental Caries, Adult, Gozd-nj-Izwb, Dental Caries, Adult, Fnps-pi-Fsgv, Dental Pain, Iqaw-xs-Mcrr.Follow up with: SOLOMON WATTS Within 3 to 5 days.Counseled: Patient, Regarding diagnosis, Regarding treatment plan, Regarding prescription, Patient indicated understanding of instructions.DISCHARGE INFORMATION:Discharge Disposition: HomeDischarge Location: HomePATIENT EDUCATION INFORMATIONInstructions: Dental Caries, Adult, Jozf-he-Ayeg; Dental Pain, Zabt-ld-FkegXigznt-Up:Wit h: Address: When:SOLOMON WATTS [address] [place], [place] [id number] Business (1) Within 3 to 5 daysDIAGNOSIS:Dental caries; Dental pain; Pain, dentalPatient Understands: Yes - Patient/family/caregiver verbalizes understanding of instructions givenComment: Normal [facility] ED Note - Physicianon 2017 ED Note - Physician Patient: BEL AGUILLON : 22 years Sex: FEMALE : [birth year]Associated Diagnoses: Dental caries; Pain, dentalAuthor: Alistair Maxsikeyla InformationTime seen: Date & time 04/11/18 20:29:00.Dental caries, dental painHistory of Present Xjfeaqd86-jilq-pxr white female presents to the emergency room [...] her poor dental state..Impression and PlanDiagnosisDental caries (PJV20-JU K02.9, Discharge, Medical)Pain, dental (GFD08-AR K08.89, Discharge, Medical)PlanCondition: Improved, Stable.Disposition: Discharged: to home.Prescriptions: Launch prescriptionsPharmacy:tra MADol 50 mg oral tablet (Prescribe): 50 mg = 1 tab(s), PO, q4hr, PRN: as needed for pain, 12 tab(s), 0 Refill(s)amoxicillin 500 mg oral capsule (Prescribe): 1,000 mg = 2 cap(s), PO, BID, 40 cap(s), 0 Refill(s).Patient was given the following educational materials: Dental Pain, Gvpv-cs-Qmpl, Dental Caries, Adult, Cskw-or-Pcmj, Dental Caries, Adult, Bjcw-pw-Mvvp, Dental Pain, Fqvq-do-Ltvs.Follow up with: SOLOMON WATTS Within 3 to 5 days.Counseled: Patient, Regarding diagnosis, Regarding treatment plan, Regarding prescription, Patient indicated understanding of instructions.[Electronica lly Signed on: 04/11/2018 20:42 EDT] Alistair Salomon MD[Verified on: 04/11/2018 20:42 EDT] Alistair Salomon MD [facility] ED Patient Education Noteon 04-11-2018 [...] mouth and teeth. This keeps them healthy.? Boxford your teeth 2 times a day. Use toothpaste with fluoride in it.? Floss your teeth once a day.? If your dentist prescribed an antibiotic medicine to treat an infection, take it as told. Do not stop taking the antibiotic even if your condition gets better.? Keep all follow-up visits as told by your dentist. This is important. This includes all cleanings.Preventing dental caries? Boxford your teeth every morning and night. Use [...] Reviewed: 03/17/2017[employer] Patient Education ? 2017 [employer]Dental PainDental pain may be caused by [...] Reviewed: 06/27/2015[employer] Patient Education ? 2018 [employer]. Normal [facility] ED Patient Summaryon 04-11-2 018 ED Patient Summary [facility] [address] [place] [id number] pATIENT DISCHARGE INSTRUCTIONSPatient InformationName: JENNIFER AGUILLON Age: 22 YearsDate of : [birth year]MRN: [id number] For Visit: Dental pain; Dental pain; DENTAL PAINArrival Time: 04/11/18 20:21:00Phone: Primary Care Physician: SOLOMON WATTSAttending Physician: Alistair Max MDComment:Visit Diagnosis:Diagnoses This Visit Dental caries (K02.9) Dental pain (K08.8) Dental pain ([id number]) Dental pain ([id number]) Pain, dental (K08.89)If you received any narcotics, [...] sign any legal documentsWith: Address: When:SOLOMON WATTS [address] [place] [address] Business (1) Within 3 to 5 daysMedication Information:The exam and treatment you received today in the [facility] Emergency Department were for an urgent problem and are not intended as complete care. It is important for you to follow up with a doctor, nurse practitioner, or physician?s store assistant for ongoing care. If your symptoms [...] number so we can reach you if necessary.[facility] has provided you with a complete list of medications post discharge. Please inform your oil well services supervisor/provider of your visit and for further instruction [...] mouth and teeth. This keeps them healthy.? Boxford your teeth 2 times a day. Use toothpaste with fluoride in it.? Floss your teeth once a day.? If your dentist prescribed an antibiotic medicine to treat an infection, take it as told. Do not stop taking the antibiotic even if your condition gets better.? Keep all follow-up visits as told by your dentist. This is important. This includes all cleanings.Preventing dental caries? Boxford your teeth every morning and night. Use [...] Reviewed: 03/17/2017[employer] Patient Education ? 2017 [employer].Dental PainDental pain may be caused by many [...] Reviewed: 06/27/2015[employer] Patient Education ? 2018 [employer]. Viruses or BacteriaWhat?s got you sick?Antibiotics only [...] Disease Control and Prevention March 2014 Normal [facility] Vital Signs Date Time Vital Sign Value Performing Clinician Facility 10-07-2024 12:18-0400 Body height 167.6 cm [facility] Comment on above: stated 10-07-2024 12:18-0400 Body mass index (BMI) [Ratio] 34.38 kg/m2 Jerry [facility]-C [facility] 10-07-2024 12:18-0400 Body weight 96.62 kg Jerry Verhoff PA-C Work Phone: [facility] [employer] [facility] 10-07-2024 12:18-0400 Diastolic blood pressure 84 mm[Hg] Jerry Verhoff PA-C Work Phone: [facility] [employer] [facility] 10-07-2024 12:18-0400 Heart rate 99 /min Jerry Verhoff PA-C Work Phone: [facility] 10-07-2024 12:18-0400 Respiratory rate 16 /min Jerry Verhoff PA-C Work Phone: [facility] 10-07-2024 12:18-0400 SaO2% (BldA) [Mass fraction] 99 % Jerry Verhoff PA-C Work Phone: [facility] 10-07-2024 12:18-0400 Systolic blood pressure 134 mm[Hg] Jerry Verhoff PA-C Work Phone: [facility] 09-24-2024 08:56-0400 Body height 167.6 cm Mandie Minesh DPM Work Phone: [facility] 09-24-2024 08:56-0400 Body mass index (BMI) [Ratio] 33.73 kg/m2 Mandie Wiggins DPM Work Phone: [facility] 09-24-2024 08:56-0400 Body weight 94.8 kg Mandie Minesh DPM Work Phone: [facility] 05-28-2024 14:27-0500 Body height 167.6 cm Radha Santoyo DO Work Phone: [facility] 05-28-2024 14:27-0500 Body mass index (BMI) [Ratio] 34.49 kg/m2 Rdaha Yarelis DO Work Phone: [facility] 05-28-2024 14:27-0500 Body weight 96.93 kg Radha Wilcoxton DO Work Phone: [facility] 05-28-2024 14:27-0500 Diastolic blood pressure 83 mm[Hg] Radha Santoyo DO Work Phone: [facility] 05-28-2024 14:27-0500 Heart rate 96 /min Radha Santoyo DO Work Phone: [facility] 05-28-2024 14:27-0500 SaO2% (BldA) [Mass fraction] 96 % Radha Santoyo DO Work Phone: [facility] 05-28-2024 14:27-0500 Systolic blood pressure 136 mm[Hg] Radha Santoyo DO Work Phone: [facility] 05-19-2024 09:42-0500 Body mass index (BMI) [Ratio] 35.02 kg/m2 [place] [employer]LL[employer]NER Work Phone: [facility] 05-19-2024 09:42-0500 Body weight 98.43 kg Kenia Washington [employer]NER Work Phone: [facility] 05-19-2024 09:42-0500 Diastolic blood pressure 74 mm[Hg] Kenia Washington COLLAR [employer]NER Work Phone: [facility] 05-19-2024 09:42-0500 Systolic blood pressure 128 mm[Hg] Kenia Washington COLL[employer]NER Work Phone: [facility] 04-01-2024 11:12-0400 Body height 167.6 cm Kenia Washington [employer]LL[employer]NER Work Phone: [facility] 04-01-2024 11:12-0400 Body mass index (BMI) [Ratio] 34.02 kg/m2 Kenia Washington [employer]NER Work Phone: [facility] 04-01-2024 11:12-0400 Body weight 95.62 kg Kenia Menaoll [employer]NER Work Phone: [facility] 04-01-2024 11:12-0400 Diastolic blood pressure 82 mm[Hg] Kenia [place] COLL[employer]NER Work Phone: [facility] 04-01-2024 11:12-0400 Heart rate 95 /min Kenia Washington [employer]NER Work Phone: [facility] 04-01-2024 11:12-0400 SaO2% (BldA) [Mass fraction] 98 % Kenia Washington CO[employer]NER Work Phone: [facility] 04-01-2024 11:12-0400 Systolic blood pressure 138 mm[Hg] Kenia [place] COLLAR [employer]URNER Work Phone: [facility] 03-19-2024 00:22-0400 Diastolic blood pressure 81 mm[Hg] [facility] 03-19-2024 00:22-0400 Heart rate 97 /min [facility] 03-19-2024 00:22-0400 Respiratory rate 18 /min [facility] 03-19-2024 00:22-0400 SaO2% (BldA) [Mass fraction] 98 % [facility] 03-19-2024 00:22-0400 Systolic blood pressure 113 mm[Hg] [facility] 03-18-2024 21:56-0400 Body temperature 98.2 [degF] [facility] 03-18-2024 21:54-0400 Body height 167.64 cm [facility] 03-18-2024 21:54-0400 Body weight 97.52 kg [facility] 03-05-2024 12:39-0400 Body height 167.64 cm [facility] 03-05-2024 12:39-0400 Body mass index (BMI) [Ratio] 37.1 kg/m2 [facility] 03-05-2024 12:39-0400 Body temperature 97.6 [degF] [facility] 03-05-2024 12:39-0400 Body weight 104.32 kg [facility] 03-05-2024 12:39-0400 Diastolic blood pressure 84 mm[Hg] [facility] 03-05-2024 12:39-0400 Heart rate 90 /min [facility] 03-05-2024 12:39-0400 Respiratory rate 18 /min [facility] 03-05-2024 12:39-0400 SaO2% (BldA) [Mass fraction] 99 % [facility] 03-05-2024 12:39-0400 Systolic blood pressure 118 mm[Hg] [facility] 02-27-2024 13:41-0400 Body mass index (BMI) [Ratio] 34.86 kg/m2 Kenia [place] COLLAR TURNER Work Phone: [facility] 02-27-2024 13:41-0400 Body weight 97.98 kg Kenia [place] COLLAR [employer]NER Work Phone: [facility] 02-27-2024 13:41-0400 Diastolic blood pressure 83 mm[Hg] Kenia Washington COLL[employer]NER Work Phone: [facility] 02-27-2024 13:41-0400 Heart rate 90 /min Kenia Washington COLL[employer]URNER Work Phone: [facility] 02-27-2024 13:41-0400 SaO2% (BldA) [Mass fraction] 99 % Kenia Washington COLLAR [employer]URNER Work Phone: [facility] 02-27-2024 13:41-0400 Systolic blood pressure 128 mm[Hg] Kenia Washington COLLAR TURNER Work Phone: [facility] 05-07-2023 13:15-0400 Body height 167.64 cm Key Patel Other [employer] Other 05-07-2023 13:15-0400 Body mass index (BMI) [Ratio] 37.54 kg/m2 Key Patel Other [employer] Other 05-07-2023 13:15-0400 Body temperature 97.8 [degF] Key Patel Other [employer] Other 05-07-2023 13:15-0400 Body weight 105.51 kg Key Patel Other [employer] Other 05-07-2023 13:15-0400 Respiratory rate 18 /min Key Mccallumney Other [employer] Other 05-07-2023 13:15-0400 SaO2% (BldA) [Mass fraction] 98 % Key Ptael Other [employer] Other 11-08-2022 13:50-0400 Body height 167.64 cm Chase Saldana Other [employer] Other 11-08-2022 13:50-0400 Body mass index (BMI) [Ratio] 35.51 kg/m2 Chase Saldana Other [employer] Other 11-08-2022 13:50-0400 Body weight 99.79 kg Chase Saldana Other [employer] Other 04-26-2022 11:55-0400 Body height 167.64 cm Autumn Donell Other [employer] Other 04-26-2022 11:55-0400 Body mass index (BMI) [Ratio] 35.02 kg/m2 Autumn Marley Other [employer] Other 04-26-2022 11:55-0400 Body temperature 97.7 [degF] Autumn Marlye Other [employer] Other 04-26-2022 11:55-0400 Body weight 98.43 kg Autumn Marley Other [employer] Other 04-26-2022 11:55-0400 Diastolic blood pressure 82 mm[Hg] Autumn Marley Other [employer] Other 04-26-2022 11:55-0400 Respiratory rate 18 /min Autumn Marley Other [employer] Other 04-26-2022 11:55-0400 SaO2% (BldA) [Mass fraction] 98 % Autumn Marley Other [employer] Other 04-26-2022 11:55-0400 Systolic blood pressure 122 mm[Hg] Autumn Marley Other [employer] Other 04-23-2022 10:50-0400 Body height 167.64 cm Autumn Marley Other [employer] Other 04-23-2022 10:50-0400 Body mass index (BMI) [Ratio] 33.89 kg/m2 Autumn Marley Other [employer] Other 04-23-2022 10:50-0400 Body temperature 97.8 [degF] Autumn Marley Other [employer] Other 04-23-2022 10:50-0400 Body weight 95.26 kg Autumn Marley Other [employer] Other 04-23-2022 10:50-0400 Respiratory rate 18 /min Autumn Marley Other [employer] Other 04-23-2022 10:50-0400 SaO2% (BldA) [Mass fraction] 98 % Autumn Marley Other [employer] Other 03-27-2022 10:15-0400 Body height 167.64 cm Deb Alfred Other [employer] Other 03-27-2022 10:15-0400 Body mass index (BMI) [Ratio] 34.38 kg/m2 Deb Simon Other [employer] Other 03-27-2022 10:15-0400 Body temperature 97.4 [degF] Deb Simon Other [employer] Other 03-27-2022 10:15-0400 Body weight 96.62 kg Deb Simon Other [employer] Other 03-27-2022 10:15-0400 Respiratory rate 18 /min Deb Simon Other [employer] Other 03-27-2022 10:15-0400 SaO2% (BldA) [Mass fraction] 96 % Deb Simon Other [employer] Other 04-05-2021 16:10-0400 Body height 167.64 cm Lucinda Salgado Other [employer] Other 04-05-2021 16:10-0400 Body mass index (BMI) [Ratio] 33.25 kg/m2 Lucinda Salgado Other [employer] Other 04-05-2021 16:10-0400 Body temperature 97.3 [degF] Lucinda Salgado Other [employer] Other 04-05-2021 16:10-0400 Body weight 93.44 kg Lucinda Salgado Other [employer] Other 04-05-2021 16:10-0400 Diastolic blood pressure 74 mm[Hg] Lucinda Salgado Other [employer] Other 04-05-2021 16:10-0400 Respiratory rate 18 /min Lucinda Salgado Other [employer] Other 04-05-2021 16:10-0400 SaO2% (BldA) [Mass fraction] 99 % Lucinda Salgado Other [employer] Other 04-05-2021 16:10-0400 Systolic blood pressure 111 mm[Hg] Lucinda Salgado Other [employer] Other Encounters Encounter Date Encounter Type Care Provider Facility Start: 10-07-2024 End: 10-07-2024 Office outpatient new 45 minutes Jerry Carrera PA-C Work Phone: [facility] Comment on above: Disorder of sacrum ( Primary Dx); Lumbar spondylosis; Spinal stenosis of lumbar region with neurogenic claudication Start: 10-07-2024 End: 10-07-2024 [facility] Start: 10-06-2024 End: 10-06-2024 ambulatory KENIA WASHINGTON Not Available Start: 09-24-2024 End: 09-24-2024 Bamboo flowsheet Mandie Wiggins DPM Work Phone: [facility] Start: 09-24-2024 End: 09-24-2024 Bamboo flowsheet Mandie Wiggins DPM Work Phone: [facility] Start: 09-24-2024 End: 09-24-2024 ambulatory Gerald Wagner Facility:[facility] Start: 09-24-2024 End: 09-24-2024 Office outpatient visit 15 minutes Mandie Wiggins DPM Work Phone: [facility] Comment on above: Nail dystrophy (Prim ronal Dx); Ingrown nail; Pain of toe of left foot Start: 09-08-2024 End: 09-08-2024 Emergency department patient visit [facility] Start: 08-13-2024 End: 08-13-2024 Telephone encounter Kenia Washington COLLAR TURNER Work Phone: [facility] Start: 08-12-2024 End: 08-12-2024 Emergency department patient visit [facility] Start: 07-27-2024 End: 07-27-2024 ambulatory [facility] Start: 07-24-2024 End: 07-24-2024 Emergency department patient visit [facility] Start: 06-13-2024 End: 06-13-2024 Emergency department patient visit [facility] Start: 06-08-2024 End: 06-08-2024 ambulatory Bob Garcia MD Facility: [place] Start: 05-28-2024 End: 05-28-2024 ambulatory [facility] Start: 05-28-2024 End: 05-28-2024 Office outpatient new 45 minutes [facility] DO Work Phone: [facility] Pulmonary/Sleep Medicine Comment on above: Chronic cough (Prima ry Dx); Mild intermittent asthma in adult without complication Start: 05-28-2024 End: 05-28-2024 ambulatory [facility] Start: 05-19-2024 End: 05-19-2024 Bamboo flowsheet Kenia Washington [employer] Work Phone: [facility] [address] Start: 05-19-2024 End: 05-19-2024 Bamboo flowsheet Kenia Washington [employer] Work Phone: [facility] [place] [address] Start: 05-19-2024 End: 05-19-2024 Office outpatient visit 25 minutes Kenia Washington [employer]URNER Work Phone: [employer] [facility] Comment on above: Seizures (CMS/HCC) ( Primary Dx); Mood disorder (CMS/HCC); Chronic migraine without aura without status migrainosus, not intractable (CMS/HCC); Chronic bilateral low back pain, unspecified whether sciatica present; Paresthesia of both lower extremities; Fatty infiltration of bone marrow Start: 05-19-2024 End: 05-19-2024 ambulatory KENIA WASHINGTON Not Available Start: 05-13-2024 End: 05-13-2024 Emergency department patient visit [facility] Start: 05-11-2024 End: 05-11-2024 Patient encounter procedure [facility] [place] Work Phone: Start: 05-11-2024 End: 05-11-2024 ambulatory NON STAFF [facility] Work Phone: Start: 2024 End: 2024 ambulatory RADHA Ana Maria [facility] Start: 04-30-2024 End: 04-30-2024 Emergency department patient visit [facility] Start: 04-28-2024 Registered [facility] Start: 04-28-2024 End: 04-28-2024 ambulatory [facility] Start: 04-14-2024 ambulatory KENIA [facility] Start: 04-01-2024 End: 04-01-2024 Bamboo flowsheet Kenia Washington [employer] Work Phone: [employer] [address] Start: 04-01-2024 End: 04-01-2024 Bamboo flowsheet Kenia Washington [employer] Work Phone: [employer] [facility] Start: 04-01-2024 End: 04-01-2024 Office outpatient visit 25 minutes Kenia Washington [employer] Work Phone: [employer] [facility] Comment on above: Seizures (CMS/HCC) ( Primary Dx); Mood disorder (CMS/HCC); Episodic migraine (CMS/HCC); Chronic bilateral low back pain, unspecified whether sciatica present; Paresthesia of both lower extremities; Anxiety Start: 04-01-2024 End: 04-01-2024 ambulatory KENIA WASHINGTON Not Available Start: 03-18-2024 End: 03-19-2024 Emergency department patient visit [facility] Work Phone: Start: 03-18-2024 End: 03-18-2024 ambulatory NON STAFF [facility] Work Phone: Start: 03-18-2024 End: 03-18-2024 Patient encounter procedure [facility] [place] Work Phone: Start: 03-10-2024 ambulatory KENIA WASHINGTON [facility] Start: 03-06-2024 Registered [facility] Start: 03-05-2024 End: 03-05-2024 Bamboo flowsheet Kamla David DO Work Phone: [employer] [address] Start: 03-05-2024 End: 03-05-2024 Bamboo flowsheet Kamla David DO Work Phone: [facility] [place] [address] Start: 03-05-2024 End: 03-05-2024 ambulatory NON STAFF [facility] Work Phone: Start: 03-05-2024 End: 03-05-2024 Patient encounter procedure Kamla David DO Work Phone: [facility] [place] Work Phone: Comment on above: Paresthesias (Primar y Dx) Start: 03-05-2024 End: 03-05-2024 ambulatory KAMLA DAVID Not Available Start: 02-27-2024 End: 02-27-2024 Office outpatient visit 25 minutes Kenia Menaoll [employer]NER Work Phone: [employer] [address] Comment on above: Seizures (CMS/HCC) ( Primary Dx); Mood disorder (CMS/HCC); Episodic migraine (CMS/HCC); Chronic bilateral low back pain, unspecified whether sciatica present; Paresthesia of both lower extremities Start: 02-27-2024 End: 02-27-2024 ambulatory KENIA WASHINGTON Not Available Start: 02-13-2024 End: 02-14-2024 Emergency department patient visit [facility] Start: 02-12-2024 End: 02-12-2024 ambulatory SHAIKH KORIN Not Available Start: 02-07-2024 Registered Rec[facility]ring [facility] Start: 02-03-2024 End: 02-03-2024 ambulatory MANDIE WIGGINS Not Available Start: 01-30-2024 End: 01-30-2024 ambulatory KENIA WASHINGTON Not Available Start: 01-09-2024 End: 01-09-2024 ambulatory KENIA MENAOLL Not Available Start: 01-02-2024 End: 01-02-2024 ambulatory MANDIE W WIGGINS Not Available Start: 12-28-2023 End: 12-29-2023 Emergency department patient visit [facility] Start: 12-16-2023 End: 12-16-2023 ambulatory SHAIKH KORIN Not Available Start: 12-11-2023 End: 12-11-2023 Emergency department patient visit [facility] Start: 12-10-2023 End: 12-10-2023 ambulatory CHRISTOPHER FRANKIE Not Available Start: 12-05-2023 End: 12-05-2023 ambulatory CHRISTOPHER FRANKIE Not Available Start: 12-05-2023 End: 12-05-2023 ambulatory MANDIE W WIGGINS Not Available Start: 12-02-2023 End: 12-02-2023 ambulatory PALMA ALEXA Not Available Start: 11-26-2023 End: 11-26-2023 ambulatory SHAIKH TOVAMITammy Not Available Start: 11-25-2023 End: 11-26-2023 Emergency department patient visit [facility] Start: 11-25-2023 End: 11-27-2023 Emergency department patient visit [facility] Start: 11-21-2023 End: 11-21-2023 ambulatory MANDIE WIGGINS Not Available Start: 11-16-2023 End: 11-16-2023 Emergency department patient visit [facility] Start: 10-30-2023 End: 10-30-2023 ambulatory JOHN HADDAD Not Available Start: 10-15-2023 End: 10-15-2023 ambulatory SHAIKH TOVAMITammy Not Available Start: 10-09-2023 End: 10-09-2023 Emergency department patient visit [facility] Start: 05-07-2023 End: 05-07-2023 ambulatory Key Patel Other [employer] Other Start: 05-07-2023 Office outpatient vi sit 15 minutes Key Patel [facility] Start: 02-19-2023 ambulatory [facility] Facility: [facility] Start: 11-08-2022 Office outpatient vi sit 15 minutes Chase Saldana [facility] Start: 11-08-2022 End: 11-08-2022 ambulatory Chase Saldana Other [employer] Other Start: 11-08-2022 End: 11-08-2022 Departed Referred PA-C Chase Saldana Work Phone: [facility] [place] Work Phone: Start: 04-26-2022 End: 04-26-2022 ambulatory Autumn Donell Other [employer] Other Start: 04-26-2022 Office outpatient vi sit 15 minutes Autumn Donell [facility] Start: 04-23-2022 End: 04-23-2022 ambulatory Autumn Donell Other [employer] Other Start: 04-23-2022 Office outpatient vi sit 15 minutes Autumn Donell [facility] Start: 04-03-2022 End: 04-03-2022 ambulatory COLÓN H FAWWAD Facility:[facility] Start: 03-27-2022 End: 03-27-2022 ambulatory Deb Simon Other [facility] [employer] Other Start: 03-27-2022 Office outpatient vi sit [...] [place] Start: 04-12-2018 End: 04-12-2018 [facility] Start: 04-11-2018 End: 04-12-2018 Emergency department patient visit Alistair Max Facility:[facility] Procedures Date Procedure Procedure Detail Performing Clinician Start: 05-11-2024 MR lumbar spine wo con Start: 05-11-2024 MRI of head Start: 03-05-2024 End: 03-05-2024 Needle emg ea extremty w/paraspinl area complete Kamla David DO Work Phone: Plan of Treatment Date Care Activity Detail Author Start: 10-07-2025 Adult BMI Screening Adult BMI Screen ing [facility] Start: 10-07-2025 Tobacco Screening Tobacco Screening [facility] Start: 05-28-2025 Adult BMI Screening Adult BMI Screen ing [facility] Start: 05-28-2025 Tobacco Screening Tobacco Screening [facility] Start: 12-09-2024 End: 12-09-2024 Patient encounter procedure 12/09/2024 2:00 PM EDT Office Visit [facility] [address] [place] [id number] Palma Guy PA [address] [place] [address] [facility] Start: 11-18-2024 End: 11-18-2024 Patient encounter procedure 11/18/2024 2:00 PM EDT Office Visit [facility] [address] [place] [phone] Jerry Carrera, PA-C [address] [place] [address] [facility] Start: 10-23-2024 End: 10-23-2024 Admission to same day surgery center 10/23/2024 9:43 AM EDT - 10/23/2024 9:50 AM EDT Surgery [facility] - Pain Procedures [address] [place] [phone] Tray Vaca MD [address] [place], [place] [id number] INJECTION BLOCK SACROILIAC JOINT [58310 (CPT )] [facility] - Pain Procedures Comment on above: INJECTION BLOCK SACR OILIAC JOINT [44462 (CPT )] Start: 10-23-2024 End: 10-23-2024 Inject si joint arthrgrphy&/anes/steroid w/estevan INJECTION BLOCK SACROILIAC JOINT Disorder of sacrum 10/23/2024 9:43 AM EDT [facility] Start: 10-23-2024 Subsequent hospital visit by physician 10/23/2024 9:43 AM EDT Hospital Encounter [facility] - Pain Procedures [address] [place] [phone] Tray Vaca MD [address] [facility] [facility] [place] [phone] [facility] - Pain Procedures Start: 10-06-2024 End: 10-06-2024 Patient encounter procedure 10/06/2024 9:00 AM EDT Office Visit [facility] [address] [facility] [place] [phone] Kenia Washington NP [address] [place] [phone] [facility] Start: 08-24-2024 End: 08-24-2024 Patient encounter procedure 08/24/2024 2:20 PM EST Office Visit [facility] M[facility] [address] [place] [address] Kenia Washington [employer] [address] [place] [address] [facility] Start: 07-21-2024 End: 07-21-2024 Patient encounter procedure 07/21/2024 11:00 AM EST Office Visit [facility] [place] [address] [place] [phone] Kenia Washington, [employer]NER [address] [place] [address] [facility] Start: 05-19-2024 End: 05-19-2024 [facility] Comment on above: Seizures (CMS/HCC) ( Primary Dx); Mood disorder (CMS/HCC); Episodic migraine (CMS/HCC); Chronic bilateral low back pain, unspecified whether sciatica present; Paresthesia of both lower extremities; Fatty infiltration of bone marrow Start: 04-01-2024 End: 04-01-2025 MR Brain WO and W contrast IV MR brain w and wo contrast routine Imaging Routine Seizures (CMS/HCC) Episodic migraine (CMS/HCC) Expected: 04/01/2024 (Approximate), Expires: 04/01/[address] [facility] Work Phone: Comment on above: Expected: 04/01/2024 (Approximate), Expires: 04/01/2025 Start: 04-01-2024 End: 04-01-2025 MR Lumbar spine WO contrast MR lumbar spine wo contrast Imaging Routine Chronic bilateral low back pain, unspecified whether sciatica present Paresthesia of both lower extremities Expected: 04/01/2024 (Approximate), Expires: 04/01/[address] [facility] Comment on above: Expected: 04/01/2024 (Approximate), Expires: 04/01/2025 Start: 04-01-2024 End: 04-01-2024 Patient encounter procedure [facility] Comment on above: Seizures (CMS/HCC) ( Primary Dx); Mood disorder (CMS/HCC); Episodic migraine (CMS/HCC); Chronic bilateral low back pain, unspecified whether sciatica present; Paresthesia of both lower extremities Start: 03-15-2024 COVID-19 Vaccine ( season) COVID-19 Vaccine ( season) [facility] Start: 03-15-2024 Influenza vaccination [facility] Start: 03-05-2024 End: 03-05-2024 Patient encounter procedure 03/05/2024 11:00 AM EDT Procedure Visit [facility] [place] [facility] [address] [place] [address] [address] Kamla David DO [address] [place] [address] Arrived [facility] [place] [address] Comment on above: Arrived Start: 2023 Screening for malign ant neoplasm of cervix [facility] Start: 11-08-2022 Bacteria identified in Urine by Culture Urine Culture [facility] Start: 2014 Screening for malign ant neoplasm of cervix Pap Smear [facility] Start: 2012 DTaP,Tdap and Td Vaccines (1 - Tdap) DTaP,Tdap and Td Vaccines (1 - Tdap) [facility] [employer] [facility] Start: 2011 Adult BMI Follow Up Plan Adult BMI Follow Up Plan [facility] [employer] [facility] Start: 2005 Depression Screening Depression Scre ening [facility] EMG 2 Extremities EMG 2 Extremit ies Neurology Routine Paresthesia of both lower extremities Ordered: 03/05/[address] [facility] Work Phone: Comment on above: Ordered: 03/05/2024 Patient Education Panic Attack ED [facility] Work Phone: Patient referral [facility] Work Phone: Immunizations Immunization Date Immunization Notes Care Provider Fa [facility] 10-25-2023 influenza, injectable, quadrivalent, preservative free Kamla David DO Work Phone: [facility] 10-25-2023 influenza virus vaccine, unspecified formulation Kamla David DO Work Phone: [facility] 04-23-2021 influenza, seasonal, injectable Kamla David DO Work Phone: [facility] 03-28-2021 Moderna SARS-CoV-2 Vaccination Kamla David DO Work Phone: [facility] 01-26-2020 Toradol per 15 mg Lucinda Dym ond Other [employer] Other 09-08-2019 Rocephin 500 mg Lucinda Dymon d Other [employer] Other 06-10-2018 Influenza, injectable, Madin Clarence Canine Kidney, preservative free, quadrivalent Christopher Frankie DO Work Phone: [facility] 12-11-2011 human papilloma viru s vaccine, quadrivalent Christopher Frankie DO Work Phone: [facility] 11-09-2011 human papilloma viru s vaccine, quadrivalent Christopher Frankie DO Work Phone: [facility] Payers Date Payer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 Start Date End Date Shaikh Langley MD [address] [place] [phone] PCP - General Internal Medicine 04/01/24 Tire Finisher Relationship Specialty Start Date End Date Arvin Hardy MD [address] [place] [phone] PCP - General Family Medicine 02/12/24 Mary Jane Davila NP [address] [place] [phone] Nurse Practitioner Family Medicine 02/12/24 Tire Finisher Relationship Specialty Start Date End Date Arvin Hardy MD [address] [place] [phone] PCP - General Family Medicine 02/12/24 Mary Jane Davila NP [address] [place] [phone] Nurse Practitioner Family Medicine 02/12/24 Tire Finisher Relationship Specialty Start Date End Date Arvin Hardy MD [address] [place] [phone] PCP - General Family Medicine 02/12/24 Mary Jane Davila NP [address] [place] [phone] Nurse Practitioner Family Medicine 02/12/24 Tire Finisher Relationship Specialty Start Date End Date Shaikh Langley MD [address] [place] [phone] PCP - General Internal Medicine 04/01/24 Kamla David DO [address] [phone] Referring Physician Neurology 05/18/24 Kenia Washington NP [address] [phone] Nurse Practitioner Neurology 05/18/24 Tire Finisher Relationship Specialty Start Date End Date Bernice Wolff, [employer]ING [employer] 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 [address] [place], [place] [phone] PCP - General Family Medicine 04/28/24 Tire Finisher Relationship Specialty Start Date End Date Shaikh Langley MD [address] [place] [phone] PCP - General Internal Medicine 04/01/24 Kamla David DO [address] [phone] Referring Physician Neurology 05/18/24 Kenia Washington NP [address] [phone] Nurse Practitioner Neurology 05/18/24 Tire Finisher Relationship Specialty Start Date End Date Shaikh Langley MD [address] [place] [phone] PCP - General Internal Medicine 04/01/24 Kamla David DO [address] [place] [phone] Referring Physician Neurology 05/18/24 Kenia Washington NP [address] [place] [phone] Nurse Practitioner Neurology 05/18/24 Tire Finisher Relationship Specialty Start Date End Date [facility] [address] [place], [place] [address], [place] PCP - General Family Medicine 08/12/24 Goals (unrecognized section and content) Goals may [...] BE BASED ON THE PRIMARY CLINICAL RECORDS. [employer] provides no warranty or guarantee of the accuracy or completeness of information in this document.
--- NOTE | 2024-10-10 14:13 | ED_ITS ---
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 She has chronic back pain. No relief with ibuprofen and tizanidine. No bowel or bladder complaints/symptoms. No feveer. Did not fall to the floor/ground. Related Data Home Medications ?Medication ?Instructions ?Recorded ?Confirmed oxcarbazepine 300 mg tablet 300 mg PO BID 11/26/23 09/14/24 cholecalciferol (vitamin D3) 10 10 mcg PO DAILY 04/24/24 09/14/24 mcg (400 unit) capsule (Vitamin D3) rizatriptan 5 mg tablet 5 mg PO Q2H PRN migraine headache 04/24/24 09/14/24 epinephrine 0.15 mg/0.3 mL 0.3 ml IM PRN 05/20/24 09/14/24 injection,auto-injector tizanidine 4 mg tablet 4 mg PO Q12H PRN muscle spasticity 07/27/24 09/14/24 Previous Rx's ?Medication ?Instructions ?Recorded ibuprofen 600 mg tablet 600 mg PO QID PRN pain #20 tabs 06/12/24 ketorolac 10 mg tablet 10 mg PO TID PRN pain #10 tabs 07/02/24 methocarbamol 750 mg tablet 750 mg PO Q6H PRN pain #30 tabs 10/10/24 nabumetone 750 mg tablet 750 mg PO BID PRN pain #14 tabs 10/10/24 Allergies Allergy/AdvReac Type Severity Reaction Status Date / Time latex Allergy Unknown Rash Verified 09/14/24 09:05 adhesive Allergy Rash Verified 09/14/24 09:05 Sulfa (Sulfonamide AdvReac Mild Hives Verified 09/14/24 09:05 Antibiotics) Opioid HPI Opioid Management Most Recent Opioid Data: Last Pain Scale 6 09/14/24 08:59 09/14/24 [facility] PFS Medical History (Updated 10/10/24 @ 14:17 by Beto Romero) Seizures ?R56.9 - Unspecified convulsions (ICD-10) Chipped tooth ?S02.5XXA - Fracture of tooth (traumatic), initial encounter for closed fracture (ICD-10) Former smoker, stopped smoking in distant past ?Z87.891 - Personal history of nicotine dependence (ICD-10) Asthma ?J45.909 - Unspecified asthma, uncomplicated (ICD-10) High blood cholesterol level ?E78.00 - Pure hypercholesterolemia, unspecified (ICD-10) Surgical History H/O dilation and curettage ?Z98.890 - Other specified postprocedural states (ICD-10) History of laparoscopic cholecystectomy ?Z90.49 - Acquired absence of other specified parts of digestive tract (ICD- 10) History of tonsillectomy and adenoidectomy ?Z90.89 - Acquired absence of other organs (ICD-10) Social History Smoking status: Former smoker Little interest or pleasure in doing things: not at all Feeling down, depressed, or hopeless: not at all Exam Narrative Exam Narrative: General: Alert, no acute distress, patient resting comfortably Skin: warm, intact, no pallor noted Head: Normocephalic, atraumatic Eye: Normal conjunctiva Respiratory: No acute distress Back: inspection of the back shows no obvious deformity, no swelling, no ecchymosis, contusion, abrasion, swelling, erythema, fluctuance or induration. Tenderness noted to mid to lower thoracic paraspinal soft tissue. She is able to stand and walk normally, able to twist and bend the torso. No CVA tenderness noted bilaterally. Musculoskeletal: Normal 5/5 strength at ankles with dorsiflexion and plantar flexion. Patient is able to ambulate. Normal sensation noted to both lower extremities. Neurological: AAOx4, normal sensory and motor observed. L5-S1 reflexes intact symmetrically. DTR 2+ at patellar bilaterally. Psychiatric: Cooperative and interactive. Constitutional Vital Signs, click to edit/add: Last Vital Signs Temp 98 F 10/10/24 13:36 Pulse 90 10/10/24 13:36 Resp 18 10/10/24 13:36 BP 135/102 H 10/10/24 13:36 Pulse Ox 98 10/10/24 13:36 O2 Del Method Room Air 10/10/24 13:36 Course Vital Signs Vital signs: Vital Signs Temperature 98 F 10/10/24 13:36 Pulse Rate 90 10/10/24 13:36 Respiratory Rate 18 10/10/24 13:36 Blood Pressure 135/102 H 10/10/24 13:36 Pulse Oximetry 98 10/10/24 13:36 Oxygen Delivery Method Room Air 10/10/24 13:36 Temperature 98 F 10/10/24 13:36 Pulse Rate 90 10/10/24 13:36 Respiratory Rate 18 10/10/24 13:36 Blood Pressure 135/102 H 10/10/24 13:36 Pulse Oximetry 98 10/10/24 13:36 Oxygen Delivery Method Room Air 10/10/24 13:36 MDM - Back Pain/Injury MDM Narrative Medical decision making narrative: No symptoms or findings on examination to suggest acute neurosurgical emergency. The patient received an IM dose of Toradol and was discharged home with prescriptions for Relafen and Robaxin. She can see her PCP for follow-up Discharge Plan Discharge Chief Complaint: Back Pain/Injury Clinical Impression: Strain of muscle and tendon of back wall of thorax, initial encounter Patient Disposition: Home, Self-Care Time of Disposition Decision: 14:17 Prescriptions / Home Meds: New nabumetone 750 mg tablet 750 mg PO BID PRN (Reason: pain) Qty: 14 0RF methocarbamol 750 mg tablet 750 mg PO Q6H PRN (Reason: pain) Qty: 30 0RF No Action oxcarbazepine 300 mg tablet 300 mg PO BID epinephrine 0.15 mg/0.3 mL auto-injector 0.3 ml IM PRN tizanidine 4 mg tablet 4 mg PO Q12H PRN (Reason: muscle spasticity) rizatriptan 5 mg tablet 5 mg PO Q2H PRN (Reason: migraine headache) cholecalciferol (vitamin D3) [Vitamin D3] 10 mcg (400 unit) capsule 10 mcg PO DAILY ibuprofen 600 mg tablet 600 mg PO QID PRN (Reason: pain) Qty: 20 0RF ketorolac 10 mg tablet 10 mg PO TID PRN (Reason: pain) Qty: 10 0RF Print Language: Italian Instructions: Thoracic Back Strain (ED) Referrals: [facility] [Primary Care Provider] - 1 week
[2024-10-10] MEDS: KETOROLAC TROMETHAMINE 60 MG/2 ML VIAL IM (14:26)
== END 2024-10-10 14:33 | disposition home or self-care (01) ==
PROVIDERS: Emergency Provider Emergency Medicine
DX: S29.012A Strain of muscle and tendon of back wall of thorax, initial encounter (principal); X58.XXXA Exposure to other specified factors, initial encounter; Z90.49 Acquired absence of other specified parts of digestive tract; Z87.891 Personal history of nicotine dependence
CPT/HCPCS: 96372; 99284; J1885

== ENCOUNTER 2024-10-29 22:42 | Emergency (ER) | payer MEDICAID, SELFPAY ==
--- OUTSIDE RECORDS SUMMARY | 2024-10-29 22:49 | XMS_ITS | CCD ---
Author Organization [facility] CliniSynd Care Team Providers Care Inventory Representative Name Role Phone Alistair Max Unavailable Unavailable Stalter Alistair Unavailable Unavailable SOLOMON WATTS Unavailable Unavailable Stalter, Alistair Unavailable Unavailable Stalter, [...] PALACIOS Attending Unavailable SUZANNE, KARAN Admitting Unavailable KARAN PALACIOS Consulting Unavailable FAWWAD, [...] Care Unavailable CAPRI, GIN Consulting Unavailable FAWWAD, COLNÓ H Primary Care Unavailable MARIA ISABEL BANKS [...] UnavailMD Gerald Del Castillo Attending Provider WILDA [place]-MANUFACTURING BAKER-C Kenia Benjamin Attending Provider MD Estefani Alexander Jr Emergency Provider NON STAFF Primary Care Provider UnavailMD Gerald Del Castillo Attending Provider Felix REGIONAL EDUCATION COORDINATOR-MANUFACTURING BAKER-C Kenia Benjamin Attending Provider WILDA Wolff [place] Primary Care Provider Korin VÁZQUEZ, Primary Care Provider Frankie DO, Christopher Unavailable Felix E COMMERCE DEVELOPER, Kenia Unavailable RADHA SANTOYO Attending Unavailable [facility] Referring Unavailable [facility] Care Unavailable Antony VÁZQUEZ, Arvin Primary Care Provider [phone] Giovanni E COMMERCE DEVELOPER, Mary Jane Unavailable Radha VÁZQUEZ, Bob Frank Attending Unavailable Radha VÁZQUEZ, Bob Frank Attending Unavailable Syed REGIONAL EDUCATION COORDINATOR-[facility] Care Provider MANDIE WIGGINS Attending Unavailable KENIA WASHINGTON Attending Unavailable KORIN, COLÓN Attending Unavailable JOHN HADDAD Attending Unavailable MANDIE WIGGINS Attending Unavailable FAHU, COLÓN Attending Unavailable PALMA GUY Attending Unavailable MANDIE WIGGINS Attending Unavailable KAMLA DAVID Attending Unavailable MICHAEL DAVIDER Referring Unavailable KORIN, Attending Unavailable MANDIE WIGGINS Attending Unavailable WASHINGTON, KENIA Attending Unavailable WASHINGTON, KENIA Referring Unavailable KORIN, COLÓN Attending Unavailable WASHINGTON, KENIA Attending Unavailable FRANKIE CHRISTELIZABET Attending Unavailable WASHINGTON, KENIA Attending Unavailable WASHINGTON, KENIA Attending Unavailable [facility] Primary Care Provider SHAIK LANGLEYH Primary Care Unavailable CHETAN HEBERT Attending Unavailable SHAIKH LANGLEY Primary Care Unavailable ALICE SHANE Attending Unavailable SHAIKH LANGLEY Primary Care Unavailable HALEIGH CHAVEZ Attending Unavailable HALEIGH CHAVEZ Attending Unavailable SCOTT, AHMAD Referring Unavailable FAWWAD, [...] Care Unavailable SYED, BERNICE Referring Unavailable SYED, BRANDON Primary Care Unavailable SYED, BRANDON Primary Care Unavailable STAN JOHNSON Attending Unavailable RADHA SANTOYO Attending Unavailable SHAWANDARADHA Referring Unavailable SYED, BRANDON Primary Care Unavailable SYED, BRANDON Primary Care Unavailable SANDY ROMERO Attending Unavailable SHAWANDAKARNA M Referring Unavailable SYED, BRANDON Primary Care Unavailable SYED, BRANDON Primary Care Unavailable CLARENCE MOYA Attending Unavailable SYED, BRANDON Primary Care Unavailable STAN JOHNSON Attending Unavailable SERVICES, Primary Care Unava ilable SERVICES, Primary Care Unava ilable MURRAY PHILLIPS Attending Unavailable JERRY CARRERA Attending Unavailable WASHINGTON, KENIA Referring Unavailable SERVICES, Primary Care Unava ilable NON STAFF Primary Care Unavailable Estefani Alexander Jr Admitting Unavailable Estefani Alexander Jr Attending Unavailable Washington, Kenia E Admitting Unavailable Washington, Kenia E Attending Unavailable Syed, [place] Primary Care Unavailable Gerald Wagner Admitting Unavailab le Gerald Wagner Attending Unavailab le NON STAFF Primary Care Unavailable Allergies Allergy Classification Reported Allergen(s) Allergy Type Date of Onset Reaction(s) Facility (20 sources) ibuprofen; Translations: [ibuprofen] Drug Allergy 11-25-19 Nausea Only, Nausea [facility] Repository (1 source) Latex; Translations: [Latex Allergy] Propensity to adverse reactions to drug (disorder) [facility] (1 source) Sulfonamides (Antibiotic); Translations: [sulfa drugs] Propensity to adverse reactions to drug (disorder) [facility] (10 sources) Lactase Drug Allergy 03-05-20 24 vomiting [facility] (15 sources) Latex; Translations: [LATEX] Drug allergy 08-24-19 19 anaphylaxis [facility] (10 sources) [facility]amide [facility]-05-[facility] Lactose Drug Allergy [facility] (2 sources) Latex Drug allergy (disorder) 12-30-19 13 [facility] (2 sources) Penicillin Drug Allergy [facility] (1 source) Propylthiouracil Drug Allergy [facility] Repository (2 sources) Sulfonamides (Antibiotic) Drug allergy (disorder) 12-30-19 13 [facility] Rep[facility] (10 sources) Sulfonamides (Antibiotic); Translations: [SULFA (SULFONAMIDE ANTIBIOTICS)] Allergy to substance 11-25-19 Itching [facility] (18 sources) Clindamycin; Translations: [CLINDAMYCIN] Drug Allergy 06-07-20 [facility] (16 sources) Desvenlafaxine Drug Allergy 11-29-19 [facility] (14 sources) Escitalopram Drug Allergy 09-21-[address] [facility] (9 sources) gabapentin Drug Allergy 04-01-20 [facility] Work Phone: (16 sources) Lamotrigine; Translations: [LAMOTRIGINE] Propensity to adverse reactions 01-13-20 18 Swelling, Hives [facility] (16 sources) Latex Allergy to substance 08-24-19 19 Unknown, Anaphylaxis [facility] (15 sources) Penicillins; Translations: [PENICILLINS] Drug Intolerance 12-05-19 19 Rash [facility] (14 sources) Sulfonamides (Antibiotic) Drug Allergy 11-25-19 17 Unknown, Hives, Itching [facility] (9 sources) Verapamil Drug Allergy 04-01-20 24 [facility] (14 sources) Wound Dressing Adhesive Drug Intolerance 01-09-20 [facility] (4 sources) Adhesive agent; Translations: [ADHESIVE] Propensity to adverse reactions to drug (disorder) 01-09-20 [facility] (2 sources) Desvenlafaxine; Translations: [DESVENLAFAXINE SUCCINATE] Drug Allergy 11-29-19 23 [facility] (4 sources) Escitalopram; Translations: [ESCITALOPRAM OXALATE] Drug All[facility] 09-[facility]-19 [facility] ([facility]) natural latex rubber; Translations: [LATEX, NATURAL RUBBER] Propensity to adverse reactions to drug (disorder) 04-24-20 [facility] (4 sources) Rimegepant Sulfate Propensity to adverse reactions 08-13-19 25 Palpitations [facility] (2 sources) lamoTRIgine Drug Allergy 01-13-20 18 [facility] (1 source) Lactase Drug Allergy 03-18-20 [facility] (1 source) Latex Drug allergy (disorder) 03-18-20 [facility] (1 source) Sulfacetamide Drug Allergy 03-18-20 [facility] Repository Medications Current Medications Medication Drug Class(es) [...] capsule Take 1 capsule by mouth Active [id number] actuat albuterol 0.09 mg/actuat metered dose [...] Active Start: 03-13-2024 take 1 capsule by [facility] once daily cholecalciferol (Vitamin [...] 1.5 mg/ml oral solution (2 sources) Uncompetitive L-dukjka-Q-aspartat e Receptor Antagonist, Sigma-1 Agonist [place]ola DM 7.5-7.5 MG/5ML 10 ml Orally every 6-8 hours as needed for 8 days Active [id number] 0.3 ml EPINEPHrine 0.5 mg/ml auto-injector (2 [...] 03-05-2024 Chronic Other aftercare (1 source) 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 Abnormal NEG [facility] Comment on above: Result Comment: RESU LTS ENTERED ON WRONG PATIENT Corrected on 07/27 AT 1343: Previously reported as Negative Performed By: #### N UM #### [facility] ([id number]) [address] [place] [address] 81689 URN MACROSCOPIC NURon 2024 BILIRUBIN BETHANY Small Abnormal NEG [facility] Comment on above: Performed By: #### N UM #### [facility] ([id number]) [address] [place] [address] [place] [address] BILIRUBIN BETHANY DISREGARD RESULTS, T ESTS ORDERED ON WRONG PATIENT. Abnormal NEG [facility] Comment on above: Result Comment: RESU LTS ENTERED ON WRONG PATIENT Corrected on 07/27 AT 1342: Previously reported as Small Performed By: #### N UM #### [facility] ([id number]) [address] [place] [address], [place] [address] BLOOD/HGB BETHANY Large Abnormal [facility] Comment on above: Performed By: #### N UM #### [facility] ([id number]) [address] [place] [address], [place] [address] BLOOD/HGB BETHANY DISREGARD RESULTS, T ESTS ORDERED ON WRONG PATIENT. Abnormal [facility] Comment on above: Result Comment: RESU LTS ENTERED ON WRONG PATIENT Corrected on 07/27 AT 1342: Previously reported as Large Performed By: #### N UM #### [facility] ([id number]) [address] [place] [address], [place] [address] GLUCOSE BETHANY Negative Normal [facility] Comment on above: Performed By: #### N UM #### [facility] ([id number]) [address] [place] [address], [place] [address] GLUCOSE BETHANY DISREGARD RESULTS, T ESTS ORDERED ON WRONG PATIENT. Abnormal [facility] Comment on above: Result Comment: RESU LTS ENTERED ON WRONG PATIENT Corrected on 07/27 AT 1342: Previously reported as Negative Performed By: #### N UM #### [facility] ([id number]) [address] [place] [address], [place] [address] KETONES BETHANY Trace Abnormal NEG [facility] Comment on above: Performed By: #### N UM #### [facility] ([id number]) [address] [place] [address] [place] [address] KETONES BETHANY DISREGARD RESULTS, T ESTS ORDERED ON WRONG PATIENT. Abnormal NEG [facility] Comment on above: Result Comment: RESU LTS ENTERED ON WRONG PATIENT Corrected on 07/27 AT 1342: Previously reported as Trace Performed By: #### N UM #### [facility] ([id number]) [address] [place] [address] 62850 LEUKOCYTE ESTERASE BETHANY Small Abnormal NEG [facility] Comment on above: Performed By: #### N UM #### [facility] ([id number]) [address] [place] [address]40 LEUKOCYTE ESTERASE BETHANY DISREGARD RESULTS , TESTS ORDERED ON WRONG PATIENT. Abnormal NEG [facility] Comment on above: Result Comment: RESU LTS ENTERED ON WRONG PATIENT Corrected on 07/27 AT 1342: Previously reported as Small Performed By: #### N UM #### [facility] ([id number]) [address] [place] [address] 109[address] NITRITE BETHANY Positive Abnormal NEG [facility] Comment on above: Performed By: #### N UM #### [facility] ([id number]) [address] [place] [address] 04658 NITRITE BETHANY DISREGARD RESULTS, T ESTS ORDERED ON WRONG PATIENT. Abnormal NEG [facility] Comment on above: Result Comment: RESU LTS ENTERED ON WRONG PATIENT Corrected on 07/27 AT 1342: Previously reported as Positive Performed By: #### N UM #### [facility] ([id number]) [address] [place] [address] 65118 PH BETHANY 6.0 Normal 5.0-8.5 [facility] Comment on above: Performed By: #### N UM #### [facility] ([id number]) [address] [place] [address] 81430 PH BETHANY DISREGARD RESULTS, T ESTS ORDERED ON WRONG PATIENT. Normal 5.0-8.5 [facility] Comment on above: Result Comment: RESU LTS ENTERED ON WRONG PATIENT Corrected on 07/27 AT 1342: Previously reported as 6.0 Performed By: #### N UM #### [facility] ([id number]) [address] [place] [address] 57555 PROTEIN BETHANY 30 mg/dL Abnormal NEG [facility] Comment on above: Performed By: #### N UM #### [facility] ([id number]) [address] [place] [address] 46331 PROTEIN BETHANY DISREGARD RESULTS, T ESTS ORDERED ON WRONG PATIENT. Abnormal NEG [facility] Comment on above: Result Comment: RESU LTS ENTERED ON WRONG PATIENT Corrected on 07/27 AT 1342: Previously reported as 30 Performed By: #### N UM #### [facility] ([id number]) [address] [place] [address] 33695 SPECIFIC GRAVITY BETHANY 1.025 Normal 1.003-[address] [place] [address] Comment on above: Performed By: #### N UM #### [facility] ([id number]) [address] [place] [address] 70005 SPECIFIC GRAVITY BETHANY DISREGARD RESULTS, TESTS ORDERED ON WRONG PATIENT. Normal 1.003-1.[address] [place] [address] Comment on above: Result Comment: RESU LTS ENTERED ON WRONG PATIENT Corrected on 07/27 AT 1342: Previously reported as 1.025 Performed By: #### N UM #### [facility] ([id number]) [address] [place] [address] [place] [address] UROBILINOGEN BETHANY 0.2 eu/dL Normal <1.1 [facility] Comment on above: Performed By: #### N UM #### [facility] ([id number]) [address] [place] [address] [place] [address] UROBILINOGEN BETHANY DISREGARD RESULTS, T ESTS ORDERED ON WRONG PATIENT. Normal <1.1 [facility] Comment on above: Result Comment: RESU LTS ENTERED ON WRONG PATIENT Corrected on 01/13 AT 1342: Previously reported as 0.2 Performed By: #### N UM #### [facility] ([id number]) [address] [place] [address] 37707 BASIC METABOLIC PANLon 06-13 Anion gap [Moles/Vol] 8 mmol/L Normal 5-15 [facility] Comment on above: Performed By: #### B MP #### [facility] ([id number]) [address] [place] [address] 72869 Calcium [Mass/Vol] 8.9 mg/dL Normal 8.5-10.5 [facility] Comment on above: Performed By: #### B MP #### [facility] ([id number]) [address] [place] [address] 28405 Chloride [Moles/Vol] 105 mmol/L Normal 98-109 [facility] Comment on above: Performed By: #### B MP #### [facility] ([id number]) [address] [place] [address] 63283 CO2 [Moles/Vol] 24 mmol/L Normal 22-32 [facility] Comment on above: Performed By: #### B MP #### [facility] ([id number]) [address] [place] [address] 57794 Creatinine [Mass/Vol] 0.72 mg/dL Normal 0.40-1.00 [facility] Comment on above: Result Comment: METH OD TRACEABLE TO IDMS STANDARD Performed By: #### B MP #### [facility] ([id number]) [address] [place] [address] 33066 eGFR (CKD-EPI) NON-RACE DEPENDENT >90 Normal >59 [facility] Comment on above: Result Comment: Reported eGFR is based on the CKD-EPI 2020 equation that does not use a race coefficient. Performed By: #### B MP #### [facility] ([id number]) [address] [place] [address] 77607 Glucose [Mass/Vol] 106 mg/dL High 65-99 [facility] Comment on above: Performed By: #### B MP #### [facility] ([id number]) [address] [place] [address] 31984 Potassium [Moles/Vol] 3.7 mmol/L Normal 3.5-5.0 [facility] Comment on above: Performed By: #### B MP #### [facility] ([id number]) [address] [place] [address] 90781 Sodium [Moles/Vol] 137 mmol/L Normal 134-146 [facility] Comment on above: Performed By: #### B MP #### [facility] ([id number]) [address] [place] [address] 37712 Urea nitrogen [Mass/Vol] 7 mg/dL Normal 5-23 [facility] Comment on above: Performed By: #### B MP #### [facility] ([id number]) [address] [place] [address] 25717 CBC AND AUTO DIFFon 1130-20 24 ABSOLUTE BASOPHIL 0.1 X10E9/L Normal 0.0-0.2 [facility] Comment on above: Performed By: #### C OVFLR #### [facility] ([id number]) [address] [place] [address] 13647 ABSOLUTE NEUTROPHIL 6.0 X10E9/L Normal 1.5-6.6 [facility] Comment on above: Performed By: #### C OVFLR #### [facility] ([id number]) [address] [place] [address] 76590 Basophils/100 WBC (Bld) 0.6 % Normal [facility] Comment on above: Performed By: #### C OVFLR #### [facility] ([id number]) [address] [place] [address] 79521 Eosinophils (Bld) [#/Vol] 0.1 10*3/uL Normal 0.0-0.4 [facility] Comment on above: Performed By: #### C OVFLR #### [facility] ([id number]) [address] [place] [address] 33936 Eosinophils/100 WBC (Bld) 1.2 % Normal [facility] Comment on above: Performed By: #### C OVFLR #### [facility] ([id number]) [address] [place] [address] 75585 Erythrocyte distribution width (RBC) [Ratio] 13.3 % Normal 11.5-15.0 [facility] Comment on above: Performed By: #### C OVFLR #### [facility] ([id number]) [address] [place] [address] 61552 Hematocrit (Bld) [Volume fraction] 36.0 % Normal 35-47 [facility] Comment on above: Performed By: #### C OVFLR #### [facility] ([id number]) [address] [place] [address] 68224 Hemoglobin (Bld) [Mass/Vol] 12.5 g/dL Normal 11.7-15.5 [facility] Comment on above: Performed By: #### C OVFLR #### [facility] ([id number]) [address] [place] [address] 59197 Lymphocytes (Bld) [#/Vol] 2.6 10*3/uL Normal 1.0-3.5 [facility] Comment on above: Performed By: #### C OVFLR #### [facility] ([id number]) [address] [place] [address] 80696 Lymphocytes/100 WBC (Bld) 28.1 % Normal [facility] Comment on above: Performed By: #### C OVFLR #### [facility] ([id number]) [address] [place] [address] 92075 MCH (RBC) [Entitic mass] 29.3 pg Normal 27-34 [facility] Comment on above: Performed By: #### C OVFLR #### [facility] ([id number]) [address] [place] [address] 22739 MCHC (RBC) [Mass/Vol] 34.6 g/dL Normal 32-36 [facility] Comment on above: Performed By: #### C OVFLR #### [facility] ([id number]) [address] [place] [address] 56417 MCV (RBC) [Entitic vol] 85 fL Normal 80-100 [facility] Comment on above: Performed By: #### C OVFLR #### [facility] ([id number]) [address] [place] [address] 37708 Monocytes (Bld) [#/Vol] 0.6 10*3/uL Normal 0-0.9 [facility] Comment on above: Performed By: #### C OVFLR #### [facility] ([id number]) [address] [place] [address] 32375 Monocytes/100 WBC (Bld) 5.9 % Normal [facility] Comment on above: Performed By: #### C OVFLR #### [facility] ([id number]) [address] [place] [address] 71834 Neutrophils/100 WBC (Bld) 64.2 % Normal [facility] Comment on above: Performed By: #### C OVFLR #### [facility] ([id number]) [address] [place] [address] 04678 Platelet mean volume (Bld) [Entitic vol] 6.8 fL Low 7-12 [facility] Comment on above: Performed By: #### C OVFLR #### [facility] ([id number]) [address] [place] [address] 93773 Platelets (Bld) [#/Vol] 402 10*3/uL Normal 150-450 [facility] Comment on above: Performed By: #### C OVFLR #### [facility] ([id number]) [address] [place] [address] 32690 RBC COUNT 4.26 X10E12/L Normal 3.80-5.20 [facility] Comment on above: Performed By: #### C OVFLR #### [facility] ([id number]) [address] [place] [address] 05878 WBC (Bld) [#/Vol] 9.3 10*3/uL Normal 4.0-11.0 [facility] Comment on above: Performed By: #### C OVFLR #### [facility] ([id number]) [address] [place] [address] 16370 Fibrin D-dimer DDU (PPP) [Ma ss/Vol]on 06-13-2024 D DIMER 197 ng/mL DDU Normal <255 [facility] Comment on above: Result Comment: Results <255 ng/mL DDU: The presence of a VTE can safely be excluded with a negative D-Dimer result and Wells score. A negative result doesn't exclude the possibility of DIC. The test be repeated along with other diagnostic tests if the patient's symptoms persist or worsen. [email or web address] Performed By: #### C OVFLR #### [facility] ([id number]) [address] [place] [address] 48933 HCG ( test) Ql (U)o n 06-13-2024 Beta HCG ( test) Ql (U) Negative Normal NEG [facility] Comment on above: Performed By: #### B MP #### [facility] ([id number]) [address] [place] [address] 24419 MAGNESIUMon 06-13-2024 Magnesium [Mass/Vol] 2.1 mg/dL Normal 1.8-2.6 [facility] Comment on above: Performed By: #### B MP #### [facility] ([id number]) [address] [place] [address] 45718 PROTIME AND INRon 06-13-2024 INR Coag (PPP) [Relative time] 1.1 {INR} Normal 0.8-1.1 [facility] Comment on above: Performed By: #### B MP #### [facility] ([id number]) [address] [place] [address] 32887 PT Coag (PPP) [Time] 12.4 s Normal 9.8-13.2 [facility] Comment on above: Result Comment: NEW REFERENCE RANGE Performed By: #### B MP #### [facility] ([id number]) [address] [place] [address] 32692 THYROID PROFILEon 06-13-2024 Free T4 [Mass/Vol] 1.01 ng/dL Normal 0.61-1.60 [facility] Comment on above: Performed By: #### B MP #### [facility] ([id number]) [address] [place] [address] 32338 TSH 2.16 uIU/mL Normal 0.49-4.67 [facility] Comment on above: Performed By: #### B MP #### [facility] ([id number]) [address] [place] [address] 10972 Troponin I.cardiac High sens itivity method [Mass/Vol]on 06-13-2024 1 HOUR TROP I, HIGH SENSITIVITY <2 Normal <16 [facility] Comment on above: Performed By: #### B MP #### [facility] ([id number]) [address] [place] [address] 63896 TROPONIN I, HIGH SENSITIVITY <2 Normal <16 [facility] Comment on above: Performed By: #### B MP #### [facility] ([id number]) [address] [place] [address] 28843 URN MACROSCOPIC NURon 2023 BILIRUBIN BETHANY Negative Normal NEG [facility] Comment on above: Performed By: #### B MP #### [facility] ([id number]) [address] [place] [address] 98150 BLOOD/HGB BETHAYN Small Abnormal NEG [facility] Comment on above: Performed By: #### B MP #### [facility] ([id number]) [address] [place] [address] [place] [address] GLUCOSE BETHANY Negative Normal NEG [facility] Comment on above: Performed By: #### B MP #### [facility] ([id number]) [address] [place] [address] [place] [address] KETONES BETHANY Negative Normal NEG [facility] Comment on above: Performed By: #### B MP #### [facility] ([id number]) [address] [place] [address] [place] [address] LEUKOCYTE ESTERASE BETHANY Negative Normal NEG Pr [facility] Comment on above: Performed By: #### B MP #### [facility] ([id number]) [address] [place] [address] [place] [address] NITRITE BETHANY Negative Normal NEG [facility] Comment on above: Performed By: #### B MP #### [facility] ([id number]) [address] [place] [address] 93678 PH BETHANY 5.5 Normal 5.0-8.5 [facility] Comment on above: Performed By: #### B MP #### [facility] ([id number]) [address] [place] [address] PROTEIN BETHANY Negative Normal NEG [facility] Comment on above: Performed By: #### B MP #### [facility] ([id number]) [address] [place] [address] 01223 SPECIFIC GRAVITY BETHANY 1.015 Normal 1.003-1 .03 5 [facility] Comment on above: Performed By: #### B MP #### [facility] ([id number]) [address] [place] [address] 27100 UROBILINOGEN BETHANY 0.2 eu/dL Normal <1.1 [facility] Comment on above: Performed By: #### B MP #### [facility] ([id number]) [address] [place], [place] [address] 11766 XR CHEST 2 VWSon 06-13-2024 XR CHEST [...] Sutherland DO on 06/13/2024 5:14 PM Normal [facility] aPTT Coag (PPP) [Time]on aPTT Coag (Bld) [Time] 33 s Normal 26-37 Pr [facility] Comment on above: Result Comment: NEW REFERENCE RANGE Performed By: #### B MP #### [facility] ([id number]) [address] [place] [address] 75198 Respiratory allergy panelon 05-29-2024 A. alternata IgE Qn (S) kU/L NINF - 0.10 kU/L [facility] Comment on above: Class 0: Normal A. fumigatus IgE Qn (S) kU/L NINF - 0.10 kU/L [facility] Comment on above: Class 0: Normal Singaporean house dust mite IgE Qn (S) kU/L NINF - 0.10 kU/L [facility] Comment on above: Class 0: Normal Bermuda grass IgE Qn (S) kU/L NINF - 0.10 kU/L [facility] Comment on above: Class 0: Normal Boxelder IgE Qn (S) kU/L NINF - 0.10 kU/L [facility] Comment on above: Class 0: Normal C. herbarum IgE Qn (S) kU/L NINF - 0.10 kU/L [facility] Comment on above: Class 0: Normal [place] Pollen IgE Qn (S) kU/L NINF - 0.10 kU/L [facility] Comment on above: Class 0: Normal Cat dander IgE Qn (S) kU/L NINF - 0.10 kU/L [facility] Comment on above: Class 0: Normal Cocklebur IgE Qn (S) kU/L NINF - 0.10 kU/L [facility] Comment on above: Class 0: Normal Cockroach IgE Qn (S) kU/L NINF - 0.10 kU/L [facility] Comment on above: Class 0: Normal Common Pigweed IgE Qn (S) kU/L NINF - 0.10 kU/L [facility] Comment on above: Class 0: Normal Common Ragweed IgE Qn (S) kU/L NINF - 0.10 kU/L [facility] Comment on above: Class 0: Normal Panola IgE Qn (S) kU/L NINF - 0.10 kU/L [facility] Comment on above: Class 0: Normal Dog dander IgE Qn (S) kU/L NINF - 0.10 kU/L [facility] Comment on above: Class 0: Normal house dust mite IgE Qn (S) kU/L NINF - 0.10 kU/L [facility] Comment on above: Class 0: Normal Goosefoot IgE Qn (S) kU/L NINF - 0.10 kU/L [facility] Comment on above: Class 0: Normal IgE Qn 13 [IU]/L [facility] Heather grass IgE Qn (S) kU/L NINF - 0.10 kU/L [facility] Comment on above: Class 0: Normal [place] blue grass IgE Qn (S) kU/L NINF - 0.10 kU/L [facility] Comment on above: Class 0: Normal Enamorado Plane IgE Qn (S) kU/L NINF - 0.10 kU/L [facility] Comment on above: Class 0: Normal Birch Elder IgE Qn (S) kU/L NINF - 0.10 kU/L [facility] Comment on above: Class 0: Normal Mountain Juniper IgE Qn (S) kU/L NINF - 0.10 kU/L [facility] Comment on above: Class 0: Normal Mouse urine proteins IgE Qn (S) kU/L NINF - 0.10 kU/L [facility] Comment on above: Class 0: Normal Mugwort IgE Qn (S) kU/L NINF - 0.10 kU/L [facility] Comment on above: Class 0: Normal Nettle IgE Qn (S) kU/L NINF - 0.10 kU/L [facility] Comment on above: Class 0: Normal P. notatum IgE Qn (S) kU/L NINF - 0.10 kU/L [facility] Comment on above: Class 0: Normal Pecan or Watkins Tree IgE Qn (S) kU/L NINF - 0.10 kU/L [facility] Comment on above: Class 0: Normal Saltwort IgE Qn (S) kU/L NINF - 0.10 kU/L [facility] Comment on above: Class 0: Normal Sheep Crows Nest IgE Qn (S) kU/L NINF - 0.10 [...] Qn (S) kU/L NINF - 0.10 kU/L [facility] Comment on above: Class 0: Normal White Elm IgE Qn (S) kU/L NINF - 0.10 kU/L [facility] Comment on above: Class 0: Normal White mulberry IgE Qn (S) kU/L NINF - 0.10 kU/L [facility] Comment on above: Class 0: Normal Valmeyer IgE Qn (S) kU/L NINF - 0.10 kU/L [facility] Comment on above: Class 0: Normal [facility] RESPIRATORY PANELon 05-28-20 24 ALTERNARIA ALTERNATA <0.10 Normal <0.10 [facility] Comment on above: Result Comment: Clas s 0: Normal Performed By: #### C OVFLR #### [facility] ([id number]) [address] [place] [address] 06620 ASPERGILLUS FUMIGATUS <0.10 Normal <0.10 [facility] Comment on above: Result Comment: Clas s 0: Normal Performed By: #### C OVFLR #### [facility] ([id number]) [address] [place] [address] 78092 BERMUDA GRASS <0.10 Normal <0.10 [facility] Comment on above: Result Comment: Clas s 0: Normal Performed By: #### C OVFLR #### [facility] ([id number]) [address] [place] [address] [place] [address] BOX ELDER <0.10 Normal <0.10 [facility] Comment on above: Result Comment: Clas s 0: Normal Performed By: #### C OVFLR #### [facility] ([id number]) [address] [place] [address] 22430 CAT DANDER <0.10 Normal <0.10 [facility] Comment on above: Result Comment: Clas s 0: Normal Performed By: #### C OVFLR #### [facility] ([id number]) [address] [place] [address], [place] [address] CLADOSPORIUM HERB <0.10 Normal <0.10 [facility] Comment on above: Result Comment: Clas s 0: Normal Performed By: #### C OVFLR #### [facility] ([id number]) [address] [place] [address], [place] [address] COCKLEBUR <0.10 Normal <0.10 [facility] Comment on above: Result Comment: Clas s 0: Normal Performed By: #### C OVFLR #### [facility] ([id number]) [address] [place] [address], [place] [address] COCKROACH <0.10 Normal <0.10 [facility] Comment on above: Result Comment: Clas s 0: Normal Performed By: #### C OVFLR #### [facility] ([id number]) [address] [place] [address], [place] [address] COMMON PIGWEED <0.10 Normal <0.10 [facility] Comment on above: Result Comment: Clas s 0: Normal Performed By: #### C OVFLR #### [facility] ([id number]) [address] [place] [address], [place] [address] COMMON RAGWEED <0.10 Normal <0.10 [facility] Comment on above: Result Comment: Clas s 0: Normal Performed By: #### C OVFLR #### [facility] ([id number]) [address] [place] [address], [place] [address] COMMON SILVER BIRCH <0.10 Normal <0.10 [facility] Comment on above: Result Comment: Clas s 0: Normal Performed By: #### C OVFLR #### [facility] ([id number]) [address] [place] [address], [place] [address] COTTONWOOD <0.10 Normal <0.10 [facility] Comment on above: Result Comment: Clas s 0: Normal Performed By: #### C OVFLR #### [facility] ([id number]) [address] [place] [address] [place] [address] DERMATOPH FARINAE <0.10 Normal <0.10 [facility] Comment on above: Result Comment: Clas s 0: Normal Performed By: #### C OVFLR #### [facility] ([id number]) [address] [place] [address] [place] [address] DERMATOPH PTERONYSS <0.10 Normal <0.10 [facility] Comment on above: Result Comment: Clas s 0: Normal Performed By: #### C OVFLR #### [facility] ([id number]) [address] [place] [address] [place] [address] DOG DANDER <0.10 Normal <0.10 [facility] Comment on above: Result Comment: Clas s 0: Normal Performed By: #### C OVFLR #### [facility] ([id number]) [address] [place] [address] [place] [address] ELM <0.10 Normal <0.10 [facility] Comment on above: Result Comment: Clas s 0: Normal Performed By: #### C OVFLR #### [facility] ([id number]) [address] [place] [address] [place] [address] GOOSEFOOT HE[place]ITT QTR <0.10 Normal <0.10 [facility] Comment on above: Result Comment: Clas s 0: Normal Performed By: #### C OVFLR #### [facility] ([id number]) [address] [place] [address] [place] [address] IGE 13 IU/mL Normal 0-165 [facility] Comment on above: Performed By: #### C OVFLR #### [facility] ([id number]) [address] [place], [place] [address], [place] [address] HEATHER GRASS <0.10 Normal <0.10 [facility] Comment on above: Result Comment: Clas s 0: Normal Performed By: #### C OVFLR #### [facility] ([id number]) [address] [place] [address], [place] [address] MAPLE LEAF SYCAMORE <0.10 Normal <0.10 [facility] Comment on above: Result Comment: Clas s 0: Normal Performed By: #### C OVFLR #### [facility] ([id number]) [address] [place] [address], [place] [address] MEADOW GRASS [place] TERRA <0.10 Normal <0.10 [facility] Comment on above: Result Comment: Clas s 0: Normal Performed By: #### C OVFLR #### [facility] ([id number]) [address] [place] [address], [place] [address] MOUNTAIN JUNIPER <0.10 Normal <0.10 [facility] Comment on above: Result Comment: Clas s 0: Normal Performed By: #### C OVFLR #### [facility] ([id number]) [address] [place] [address], [place] [address] MOUSE URINE PROTEINS <0.10 Normal <0.10 [facility] Comment on above: Result Comment: Clas s 0: Normal Performed By: #### C OVFLR #### [facility] ([id number]) [address] [place] [address], [place] [address] MUGWORT <0.10 Normal <0.10 [facility] Comment on above: Result Comment: Clas s 0: Normal Performed By: #### C OVFLR #### [facility] ([id number]) [address] [place] [address], [place] [address] MULBERRY TREE <0.10 Normal <0.10 [facility] Comment on above: Result Comment: Clas s 0: Normal Performed By: #### C OVFLR #### [facility] ([id number]) [address] [place] [address] [place] [address] NETTLE <0.10 Normal <0.10 [facility] Comment on above: Result Comment: Clas s 0: Normal Performed By: #### C OVFLR #### [facility] ([id number]) [address] [place] [address] [place] [address] OAK <0.10 Normal <0.10 [facility] Comment on above: Result Comment: Clas s 0: Normal Performed By: #### C OVFLR #### [facility] ([id number]) [address] [place] [address] [place] [address] PECAN HICKORY TREE <0.10 Normal <0.10 [facility] Comment on above: Result Comment: Clas s 0: Normal Performed By: #### C OVFLR #### [facility] ([id number]) [address] [place] [address] [place] [address] PENICILLIUM CHRYSOGENUM <0.10 Normal <0.10 [facility] Comment on above: Result Comment: Clas s 0: Normal Performed By: #### C OVFLR #### [facility] ([id number]) [address] [place] [address] [place] [address] ROUGH MARSHELDER <0.10 Normal <0.10 [facility] Comment on above: Result Comment: Clas s 0: Normal Performed By: #### C OVFLR #### [facility] ([id number]) [address] [place] [address] [place] [address] SALTWORT KEVAN THISTLE <0.10 Normal <0.10 [facility] Comment on above: Result Comment: Clas s 0: Normal Performed By: #### C OVFLR #### [facility] ([id number]) [address] [place] [address]95[address] SHEEP SORREL <0.10 Normal <0.10 [facility] Comment on above: Result Comment: Clas s 0: Normal Performed By: #### C OVFLR #### [facility] ([id number]) [address] [place] [address]14[address] GUERO <0.10 Normal <0.10 [facility] Comment on above: Result Comment: Clas s 0: Normal Performed By: #### C OVFLR #### [facility] ([id number]) [address] [place] [address] 10[address] WALNUT TREE POLLEN <0.10 Normal <0.10 [facility] Comment on above: Result Comment: Clas s 0: Normal Performed By: #### C OVFLR #### [facility] ([id number]) [address] [place] [address] WHITE JOS <0.10 Normal <0.10 [facility] Comment on above: Result Comment: Clas s 0: Normal Performed By: #### C OVFLR #### [facility] ([id number]) [address] [place] [address] 04547 MR head/brain wo/w conon MR head/brain wo/w con [facility] [address] MRI Report Signed Patient: Jennifer Aguillon MR#: [id number] 8 : 1995 Acct:[id number] Age/Sex: 29 / F ADM Date: 05/11/24 Loc: Room: Type: [facility] Attending Dr: Kenia LIN Copies to: DELIA [...] Luis Baldwin M.D.05/11/2024 11:05 PM Dictation Location: [place] [address] Transcribed By: [facility] 05/11/242304 Dictated By: Juan Luis Baldwin DO 05/11/242301 Signed By: 05/11/242304 Normal [facility] MR lumbar spine wo conon MR lumbar spine wo con [facility] [address] MRI Report Signed Patient: Jennifer Aguillon MR#: [id number] 8 : 1995 Acct:[id number] Age/Sex: 29 / F ADM Date: 05/11/24 Loc: Room: Type: [facility] Attending Dr: Kenia LIN Copies to: DELIA [...] Luis Baldwin M.D.05/11/2024 11:02 PM Dictation Location: [place] [address] Transcribed By: [facility] 05/11/242301 Dictated By: Juan Luis Baldwin DO 05/11/242256 Signed By: 05/11/242301 Normal [facility] XR CHEST 2 VWSon 04-28-2024 [...] Vincent MD on 04/28/2024 2:10 PM Normal [facility] ECG 12 lead ECGon 03-18-2024 ECG 12 lead ECG [facility] [place] [address] [place], [place] [id number] Electrocardiograph Report Signed Patient: Jennifer Aguillon MR#: [id number] 8 : 1995 Acct:[id number] Age/Sex: 28 / F ADM Date: 03/18/24 Loc: ER Room: Type: [facility] ER Attending Dr: Ordering Provider: Estefani [...] ECGs available Confirmed by ESTEFANI ALEXANDER MD ([id number]) on 03/20/2024 5:58:53 AM Referred By: Electronically Signed By: ESTEFANI ALEXANDER MD Transcribed By: MUS Signed By Estefani Alexander Jr, MD 0558 Normal [facility] EMG 2 Extremitieson 03-05-20 Normal [facility] Influenza virus B Ag [Presen ce] in Upper respiratory specimen by Rapid immunoassayon 03-05-2024 FLUBV Ag IA.rapid Ql (Nph) Negative [facility] NVC 9-10 Nerveson 03-05-2024 Normal [facility] No Panel Informationon 03-05 Influenza Type A (Rapid) Negative [facility] POC SARS CoV-2 Antigen Negative [facility] Troponin I.cardiac High sens itivity method [Mass/Vol]on 02-14-2024 1 HOUR TROP I, HIGH SENSITIVITY 3 ng/L Normal <16 [facility] Comment on above: Performed By: #### C OVFLR #### [facility] ([id number]) [address] [place] [address] 07255 CBC AND AUTO DIFFon 02-13-20 ABSOLUTE BASOPHIL 0.0 X10E9/L Normal 0.0-0.2 [facility] Comment on above: Performed By: #### C BCA, CMP, 93625-3, 68926-6 #### [facility] ([id number]) [address] [place] [address] 26312 ABSOLUTE NEUTROPHIL 7.5 X10E9/L High 1.5-6.6 [facility] Comment on above: Performed By: #### C TORITO REDMAN, , 23668-1 #### [facility] ([id number]) [address] [place] [address] 40869 Basophils/100 WBC (Bld) 0.3 % Normal [facility] Comment on above: Performed By: #### Keyla REDMAN, CMP, , 12934-6 #### [facility] ([id number]) [address] [place] [address] 20934 Eosinophils (Bld) [#/Vol] 0.1 10*3/uL Normal 0.0-0.4 [facility] Comment on above: Performed By: #### Keyla REDMAN CMP, , 06227-1 #### [facility] ([id number]) [address] [place] [address] 47419 Eosinophils/100 WBC (Bld) 0.8 % Normal [facility] Comment on above: Performed By: #### Keyla REDMAN CMP, , 72426-3 #### [facility] ([id number]) [address] [place] [address] 04868 Erythrocyte distribution width (RBC) [Ratio] 13.7 % Normal 11.5-15.0 [facility] Comment on above: Performed By: #### C FEROZ CMP, , 96703-1 #### [facility] ([id number]) [address] [place] [address] 72225 Hematocrit (Bld) [Volume fraction] 35.8 % Normal 35-47 [facility] Comment on above: Performed By: #### Keyla REDMAN, CMP, , 62930-3 #### [facility] ([id number]) [address] [place] [address] 61479 Hemoglobin (Bld) [Mass/Vol] 12.5 g/dL Normal 11.7-15.5 [facility] Comment on above: Performed By: #### C FEROZ, CMP, , 24641-5 #### [facility] ([id number]) [address] [place] [address] 74654 Lymphocytes (Bld) [#/Vol] 3.4 10*3/uL Normal 1.0-3.5 [facility] Comment on above: Performed By: #### C BCA, CMP, , 19053-1 #### [facility] ([id number]) [address] [place] [address] 54394 Lymphocytes/100 WBC (Bld) 29.4 % Normal [facility] Comment on above: Performed By: #### C BCA, CMP, , 94440-3 #### [facility] ([id number]) [address] [place] [address] 54867 MCH (RBC) [Entitic mass] 29.8 pg Normal 27-34 [facility] Comment on above: Performed By: #### C BCA, CMP, , 94400-1 #### [facility] ([id number]) [address] [place] [address] 14904 MCHC (RBC) [Mass/Vol] 35.0 g/dL Normal 32-36 [facility] Comment on above: Performed By: #### C BCA, CMP, , 07489-9 #### [facility] ([id number]) [address] [place] [address] 67728 MCV (RBC) [Entitic vol] 85 fL Normal 80-100 [facility] Comment on above: Performed By: #### C BCA, CMP, , 14379-0 #### [facility] ([id number]) [address] [place] [address] 14974 Monocytes (Bld) [#/Vol] 0.6 10*3/uL Normal 0-0.9 [facility] Comment on above: Performed By: #### C FEROZ, CMP, , 07210-5 #### [facility] ([id number]) [address] [place] [address] 58969 Monocytes/100 WBC (Bld) 4.8 % Normal [facility] Comment on above: Performed By: #### C FEROZ, CMP, , 84405-0 #### [facility] ([id number]) [address] [place] [address] 82234 Neutrophils/100 WBC (Bld) 64.7 % Normal [facility] Comment on above: Performed By: #### Keyla REDMAN, CMP, , 08816-1 #### [facility] ([id number]) [address] [place] [address] 79892 Platelet mean volume (Bld) [Entitic vol] 6.6 fL Low 7-12 [facility] Comment on above: Performed By: #### Keyla REDMAN, CMP, , 87814-4 #### [facility] ([id number]) [address] [place] [address] 59568 Platelets (Bld) [#/Vol] 377 10*3/uL Normal 150-450 [facility] Comment on above: Performed By: #### C BCA, CMP, , 28788-7 #### [facility] ([id number]) [address] [place] [address] 86557 RBC COUNT 4.21 X10E12/L Normal 3.80-5.20 [facility] Comment on above: Performed By: #### Keyla REDMAN, CMP, , 97154-7 #### [facility] ([id number]) [address] [place] [address] [place] [address] WBC (Bld) [#/Vol] 11.6 10*3/uL High 4.0-11.0 [facility] Comment on above: Performed By: #### C BCA, CMP, , 58340-7 #### [facility] ([id number]) [address] [place] [address] 74186 COMPREHENSIVE METABOLIC PANE Kit 02-13-2024 Albumin [Mass/Vol] 4.1 g/dL Normal 3.2-5.3 [facility] Comment on above: Performed By: #### C BCA, CMP, , 66670-6 #### [facility] ([id number]) [address] [place] [address] 47706 ALP [Catalytic activity/Vol] 158 U/L High 39-130 [facility] Comment on above: Performed By: #### C BCA, CMP, , 69013-2 #### [facility] ([id number]) [address] [place] [address] 95139 ALT [Catalytic activity/Vol] 46 U/L High 0-31 [facility] Comment on above: Performed By: #### C BCA, CMP, , 95132-0 #### [facility] ([id number]) [address] [place] [address] 47909 Anion gap [Moles/Vol] 7 mmol/L Normal 5-15 [facility] Comment on above: Performed By: #### C BCA, CMP, , 92202-5 #### [facility] ([id number]) [address] [place] [address] 31083 AST [Catalytic activity/Vol] 28 U/L Normal 0-41 [facility] Comment on above: Performed By: #### C BCA, CMP, , 13791-4 #### [facility] ([id number]) [address] [place] [address] 30095 Bilirubin [Mass/Vol] 0.5 mg/dL Normal 0.3-1.2 [facility] Comment on above: Performed By: #### C FEROZ CMP, , 82638-6 #### [facility] ([id number]) [address] [place] [address] 02045 Calcium [Mass/Vol] 9.0 mg/dL Normal 8.5-10.5 [facility] Comment on above: Performed By: #### C FEROZ, CMP, , 74668-6 #### [facility] ([id number]) [address] [place] [address] 07159 Chloride [Moles/Vol] 106 mmol/L Normal 98-109 [facility] Comment on above: Performed By: #### C FEROZ, CMP, , 58763-8 #### [facility] ([id number]) [address] [place] [address] 24992 CO2 [Moles/Vol] 24 mmol/L Normal 22-32 [facility] Comment on above: Performed By: #### C FEROZ, CMP, , 63487-8 #### [facility] ([id number]) [address] [place] [address] 61645 Creatinine [Mass/Vol] 0.63 mg/dL Normal 0.40-1.00 [facility] Comment on above: Result Comment: METH OD TRACEABLE TO IDMS STANDARD Performed By: #### C FEROZ CMP, 93193-5, 92632-8 #### [facility] ([id number]) [address] [place] [address] 29155 eGFR (CKD-EPI) NON-RACE DEPENDENT >90 Normal >59 [facility] Comment on above: Result Comment: Reported eGFR is based on the CKD-EPI 2020 equation that does not use a race coefficient. Performed By: #### C FEROZ, CMP, , 96766-0 #### [facility] ([id number]) [address] [place] [address] 41517 Glucose [Mass/Vol] 98 mg/dL Normal 65-99 [facility] Comment on above: Performed By: #### C FEROZ, CMP, , 24169-1 #### [facility] ([id number]) [address] [place] [address] 45932 Potassium [Moles/Vol] 3.1 mmol/L Low 3.5-5.0 [facility] Comment on above: Performed By: #### C FEROZ, CMP, , 42094-7 #### [facility] ([id number]) [address] [place] [address] 93003 Protein [Mass/Vol] 8.0 g/dL Normal 6.0-8.0 [facility] Comment on above: Performed By: #### C FEROZ, [facility], , 95092-0 #### [facility] ([id number]) [address] [place] [address] 91380 Sodium [Moles/Vol] 137 mmol/L Normal 134-146 [facility] Comment on above: Performed By: #### C FEROZ, CMP, , 25208-2 #### [facility] ([id number]) [address] [place] [address] 43379 Urea nitrogen [Mass/Vol] 7 mg/dL Normal 5-23 [facility] Comment on above: Performed By: #### C BCA, CMP, , 29018-3 #### [facility] ([id number]) [address] [place] [address] 87848 HCG ( test) Ql (U)o n 02-13-2024 Beta HCG ( test) Ql (U) Negative Normal NEG [facility] Comment on above: Performed By: #### C OVFLR #### [facility] ([id number]) [address] [place] [address]57 MAGNESIUMon 02-13-2024 Magnesium [Mass/Vol] 1.9 mg/dL Normal 1.8-2.6 [facility] Comment on above: Performed By: #### C OVFLR #### [facility] ([id number]) [address] [place] [address] Troponin I.cardiac High sens itivity method [Mass/Vol]on 02-13-2024 TROPONIN I, HIGH SENSITIVITY 3 ng/L Normal <16 [facility] Comment on above: Performed By: #### C OVFLR #### [facility] ([id number]) [address] [place] [phone] URN MACROSCOPIC NURon 2023 BILIRUBIN BETHANY Negative Normal NEG [facility] Comment on above: Performed By: #### C OVFLR #### [facility] ([id number]) [address] [place] [address] BLOOD/HGB BETHANY Negative Normal NEG [facility] Comment on above: Performed By: #### C OVFLR #### [facility] ([id number]) [address] [place] [address] [place] [address] GLUCOSE BETHANY Negative Normal NEG [facility] Comment on above: Performed By: #### C OVFLR #### [facility] ([id number]) [address] [place] [address] KETONES BETHANY Negative Normal NEG [facility] Comment on above: Performed By: #### C OVFLR #### [facility] ([id number]) [address] [place] [address] [place] [address] LEUKOCYTE ESTERASE BETHANY Negative Normal NEG [facility] Comment on above: Performed By: #### C OVFLR #### [facility] ([id number]) [address] [place] [address] 90804 NITRITE BETHANY Negative Normal NEG [facility] Comment on above: Performed By: #### C OVFLR #### [facility] ([id number]) [address] [place] [address] 34198 PH BETHANY 6.5 Normal 5.0-8.5 [facility] Comment on above: Performed By: #### C OVFLR #### [facility] ([id number]) [address] [place] [address] 82399 PROTEIN BETHANY Negative Normal NEG [facility] Comment on above: Performed By: #### C OVFLR #### [facility] ([id number]) [address] [place] [address] 05407 SPECIFIC GRAVITY BETHANY 1.015 Normal 1.003-[address] [place] [address] Comment on above: Performed By: #### C OVFLR #### [facility] ([id number]) [address] [place] [address] 31245 UROBILINOGEN BETHANY 0.2 eu/dL Normal <1.1 [facility] Comment on above: Performed By: #### C OVFLR #### [facility] ([id number]) [address] [place] [address] 57937 XR CHEST 2 VWSon 02-13-2024 XR CHEST 2 VWS XR CHEST 2 VWS Chest 2 views History: Difficulty breathing SOB Comparison: 11/25/2023 Findings: Chest 2 views. Stable cardiomediastinal silhouette. No focal opacity, effusion or pneumothorax. Impression: No evident acute cardiopulmonary process. Finalized by Jennifer Howe MD on 02/13/2024 11:22 PM Normal [facility] BASIC METABOLIC PANLon 12-28 Anion gap [Moles/Vol] 4 mmol/L Low 5-15 [facility] Comment on above: Performed By: #### C YOLANDA REDMAN, [id number] #### [facility] ([id number]) [address] [place] [address] 01376 Calcium [Mass/Vol] 8.4 mg/dL Low 8.5-10.5 [facility] Comment on above: Performed By: #### C FEROZ [facility], #### [facility] ([id number]) [address] [place] [address] 81844 Chloride [Moles/Vol] 106 mmol/L Normal 98-109 [facility] Comment on above: Performed By: #### C YOLANDA REDMAN, #### [facility] ([id number]) [address] [place] [address] 77246 CO2 [Moles/Vol] 24 mmol/L Normal 22-32 [facility] Comment on above: Performed By: #### C FEROZ [facility], 99870-8 #### [facility] ([id number]) [address] [place] [address] 28313 Creatinine [Mass/Vol] 0.65 mg/dL Normal 0.40-1.00 [facility] Comment on above: Result Comment: METH OD TRACEABLE TO IDMS STANDARD Performed By: #### C YOLANDA REDMAN, #### [facility] ([id number]) [address] [place] [address] 43793 eGFR (CKD-EPI) NON-RACE DEPENDENT >90 Normal >59 [facility] Comment on above: Result Comment: Reported eGFR is based on the CKD-EPI 2020 equation that does not use a race coefficient. Performed By: #### C YOLANDA REDMAN, #### [facility] ([id number]) [address] [place] [address] 92869 Glucose [Mass/Vol] 101 mg/dL High 65-99 [facility] Comment on above: Performed By: #### C YOLANDA REDMAN, #### [facility] ([id number]) [address] [place] [address] 93923 Potassium [Moles/Vol] 3.8 mmol/L Normal 3.5-5.0 [facility] Comment on above: Performed By: #### C FEROZ [facility], #### [facility] ([id number]) [address] [place] [address] 58572 Sodium [Moles/Vol] 134 mmol/L Normal 134-146 [facility] Comment on above: Performed By: #### YOLANDA Ramires BCA, #### [facility] ([id number]) [address] [place] [address] 18697 Urea nitrogen [Mass/Vol] 12 mg/dL Normal 5-23 [facility] Comment on above: Performed By: #### Keyla REDMAN [facility], #### [facility] ([id number]) [address] [place] [address] 85927 CBC AND AUTO DIFFon 12-28- 24 ABSOLUTE BASOPHIL 0.1 X10E9/L Normal 0.0-0.2 [facility] Comment on above: Performed By: #### YOLANDA Ramires BCA, #### [facility] ([id number]) [address] [place] [address] 56226 ABSOLUTE NEUTROPHIL 6.1 X10E9/L Normal 1.5-6.6 [facility] Comment on above: Performed By: #### C YOLANDA REDMAN, #### [facility] ([id number]) [address] [place] [address] 25220 Basophils/100 WBC (Bld) 0.7 % Normal [facility] Comment on above: Performed By: #### YOLANDA Ramires BCA, #### [facility] ([id number]) [address] [place] [address] 25309 Eosinophils (Bld) [#/Vol] 0.2 10*3/uL Normal 0.0-0.4 [facility] Comment on above: Performed By: #### C FEROZ [facility], #### [facility] ([id number]) [address] [place] [address] 13182 Eosinophils/100 WBC (Bld) 1.9 % Normal [facility] Comment on above: Performed By: #### Keyla REDMAN [facility], #### [facility] ([id number]) [address] [place] [address] 01450 Erythrocyte distribution width (RBC) [Ratio] 13.6 % Normal 11.5-15.0 [facility] Comment on above: Performed By: #### Keyla REDMAN [facility], #### [facility] ([id number]) [address] [place] [address] 99709 Hematocrit (Bld) [Volume fraction] 33.7 % Low 35-47 [facility] Comment on above: Performed By: #### Keyla REDMAN [facility], #### [facility] ([id number]) [address] [place] [address] 87563 Hemoglobin (Bld) [Mass/Vol] 11.7 g/dL Normal 11.7-15.5 [facility] Comment on above: Performed By: #### Keyla REDMAN [facility], #### [facility] ([id number]) [address] [place] [address] 85129 Lymphocytes (Bld) [#/Vol] 3.0 10*3/uL Normal 1.0-3.5 [facility] Comment on above: Performed By: #### Keyla REDMAN [facility], #### [facility] ([id number]) [address] [place] [address] 54091 Lymphocytes/100 WBC (Bld) 29.8 % Normal [facility] Comment on above: Performed By: #### YOLANDA Ramires BCA, #### [facility] ([id number]) [address] [place] [address] 20430 MCH (RBC) [Entitic mass] 29.2 pg Normal 27-34 [facility] Comment on above: Performed By: #### YOLANDA Ramires BCA, #### [facility] ([id number]) [address] [place] [address] 05501 MCHC (RBC) [Mass/Vol] 34.6 g/dL Normal 32-36 [facility] Comment on above: Performed By: #### YOLANDA Ramires BCA, #### [facility] ([id number]) [address] [place] [address] 09402 MCV (RBC) [Entitic vol] 84 fL Normal 80-100 [facility] Comment on above: Performed By: #### YOLANDA Ramires BCA, #### [facility] ([id number]) [address] [place] [address] 01738 Monocytes (Bld) [#/Vol] 0.6 10*3/uL Normal 0-0.9 [facility] Comment on above: Performed By: #### YOLANDA Ramires BCA, #### [facility] ([id number]) [address] [place] [address] 60487 Monocytes/100 WBC (Bld) 6.5 % Normal [facility] Comment on above: Performed By: #### YOLANDA Ramires BCA, #### [facility] ([id number]) [address] [place] [address] 38670 Neutrophils/100 WBC (Bld) 61.1 % Normal [facility] Comment on above: Performed By: #### Keyla REDMAN [facility], #### [facility] ([id number]) [address] [place] [address] 11867 Platelet mean volume (Bld) [Entitic vol] 6.8 fL Low 7-12 [facility] Comment on above: Performed By: #### Keyla REDMAN [facility], #### [facility] ([id number]) [address] [place] [address] 99167 Platelets (Bld) [#/Vol] 307 10*3/uL Normal 150-450 [facility] Comment on above: Performed By: #### Keyla REDMAN [facility], #### [facility] ([id number]) [address] [place] [address] 17081 RBC COUNT 4.00 X10E12/L Normal 3.80-5.20 [facility] Comment on above: Performed By: #### Keyla REDMAN [facility], #### [facility] ([id number]) [address] [place] [address] 74185 WBC (Bld) [#/Vol] 10.0 10*3/uL Normal 4.0-11.0 [facility] Comment on above: Performed By: #### Keyla REDMAN [facility], #### [facility] ([id number]) [address] [place] [address] 35684 MAGNESIUMon 12-29-2023 Magnesium [Mass/Vol] 2.0 mg/dL Normal 1.8-2.6 [facility] Comment on above: Performed By: #### Keyla REDMAN [facility], #### [facility] ([id number]) [address] [place] [address] 98600 HCG ( test) Ql (U)o n 12-11-2023 Beta HCG ( test) Ql (U) Negative Normal NEG [facility] Comment on above: Performed By: #### 2 106-3 #### [facility] ([id number]) [address] [place] [address] [place] [address] URN MACROSCOPIC NURon 2023 BILIRUBIN BETHANY Negative Normal NEG [facility] Comment on above: Performed By: #### N UM #### [facility] ([id number]) [address] [place] [address] [place] [address] BLOOD/HGB BETHANY Negative Normal NEG [facility] Comment on above: Performed By: #### N UM #### [facility] ([id number]) [address] [place] [address] [place] [address] GLUCOSE BETHANY Negative Normal NEG [facility] Comment on above: Performed By: #### N UM #### [facility] ([id number]) [address] [place] [address] [place] [address] KETONES BETHANY Negative Normal NEG [facility] Comment on above: Performed By: #### N UM #### [facility] ([id number]) [address] [place] [address] [place] [address] LEUKOCYTE ESTERASE BETHANY Negative Normal NEG [facility] Comment on above: Performed By: #### N UM #### [facility] ([id number]) [address] [place] [address] [place] [address] NITRITE BETHANY Negative Normal NEG [facility] Comment on above: Performed By: #### N UM #### [facility] ([id number]) [address] [place] [address] [place] [address] PH BETHANY 6.0 Normal 5.0-8.5 [facility] Comment on above: Performed By: #### N UM #### [facility] ([id number]) [address] [place] [address] [place] [address] PROTEIN BETHANY Negative Normal NEG [facility] Comment on above: Performed By: #### N UM #### [facility] ([id number]) [address] [place] [address] 90156 SPECIFIC GRAVITY BETHANY 1.015 Normal 1.003-1 .03 5 [facility] Comment on above: Performed By: #### N UM #### [facility] ([id number]) [address] [place] [address] 33073 UROBILINOGEN BETHANY 0.2 eu/dL Normal <1.1 [facility] Comment on above: Performed By: #### N UM #### [facility] ([id number]) [address] [place] [address] 02298 BASIC METABOLIC PANLon 11-24 Anion gap [Moles/Vol] 13 mmol/L Normal 5-15 [facility] Comment on above: Performed By: #### B MP #### [facility] ([id number]) [address] [place] [address] 16755 Calcium [Mass/Vol] 9.0 mg/dL Normal 8.5-10.5 [facility] Comment on above: Performed By: #### B MP #### [facility] ([id number]) [address] [place] [address] 60679 Chloride [Moles/Vol] 103 mmol/L Normal 98-109 [facility] Comment on above: Performed By: #### B MP #### [facility] ([id number]) [address] [place] [address] 70856 CO2 [Moles/Vol] 20 mmol/L Low 22-32 [facility] Comment on above: Performed By: #### B MP #### [facility] ([id number]) [address] [place] [address] 35098 Creatinine [Mass/Vol] 0.69 mg/dL Normal 0.40-1.00 [facility] Comment on above: Result Comment: METH OD TRACEABLE TO IDMS STANDARD Performed By: #### B MP #### [facility] ([id number]) [address] [place] [address] 93488 eGFR (CKD-EPI) NON-RACE DEPENDENT >90 Normal >59 [facility] Comment on above: Result Comment: Reported eGFR is based on the CKD-EPI 2020 equation that does not use a race coefficient. Performed By: #### B MP #### [facility] ([id number]) [address] [place] [address] 10111 Glucose [Mass/Vol] 95 mg/dL Normal 65-99 [facility] Comment on above: Performed By: #### B MP #### [facility] ([id number]) [address] [place] [address] 00755 Potassium [Moles/Vol] 2.9 mmol/L Low 3.5-5.0 [facility] Comment on above: Performed By: #### B MP #### [facility] ([id number]) [address] [place] [address] 12033 Sodium [Moles/Vol] 136 mmol/L Normal 134-146 [facility] Comment on above: Performed By: #### B MP #### [facility] ([id number]) [address] [place] [address] 27257 Urea nitrogen [Mass/Vol] 7 mg/dL Normal 5-23 [facility] Comment on above: Performed By: #### B MP #### [facility] ([id number]) [address] [place] [address] 33697 SARS/FLU A+B/RSV by NAAT/Mol ecularon 11-25-2023 SARS/FLU [...] operators who are performing tests using either [employer] or [employer] systems and is limited to laboratories that [...] repeat. Fact Sheet for Healthcare Providers: https://www.fda.gov/media /810509/download Fact Sheet for Patients: https://www.fda.gov/media /393873/download Normal [facility] Comment on above: Performed By: #### C OVFLR #### [facility] ([id number]) [address] [place] [address] 74386 Provider Letteron 02-25-2023 Provider Letter (Inserted Image. Swapna ble to display) February 25, 2023 JENNIFER CARMEN [address] [place] [id number] : 1995 Dear Jennifer , We have been trying to reach you with no success. It is important that you return our call regarding your referral to our office by Jennifer upon receiving this letter. Also, at the time of your call, please provide us with your current information. Thank you for your prompt attention to this matter. Sincerely, [facility] [phone] Normal [facility] Physician Referralon 023 Physician Referral [phone] [id number] Normal [facility] Urinalysis - AUTOMATEDon Appearance (U) cloudy [employer] Other Bilirubin Ql (U) Negative Chat& (ChatAnd) Other Color (U) yellow [employer] Other Glucose Ql (U) Negative [employer] Other Hemoglobin Ql (U) Trace-intact [employer] Other Ketones Ql (U) Negative [employer] Other Leukocyte esterase Test strip Ql (U) Trace [employer] Other Nitrite Ql (U) Negative [employer] Other pH (U) 6.0 [pH] [employer] Other Protein Ql (U) Negative [employer] Other Specific gravity (U) [Rel density] <=1.005 [employer] Other Urobilinogen (U) [Mass/Vol] 0.2 mg/dL [employer] Other Urinalysis - AUTOMATED No rt Promodity Other Quick Strepon 04-26-2022 S. pyogenes Org specific cx Ql (Throat) Negative [employer] Other Quick Strep [employer] Other SARS-CoV-2 (COVID-19) RNA NA A+probe Ql (Resp)on 04-23-2022 SARS-CoV-2 (COVID-19) RNA EMMANUELLE+probe Ql (Unsp spec) Negative [employer] Other Covid-19 PCR (CVDTB)on 03-16 SARS-CoV-2 (COVID-19) RNA EMMANUELLE+probe Ql (Unsp spec) Not detected Normal NOT DETECTED [facility] Comment on above: Result Comment: This test is not yet approved or cleared by the [place] FDA. When there are no FDA-approved or cleared tests available, and other criteria are met, FDA can make tests available under an emergency access mechanism called an Emergency Use Authorization (EUA). The EUA for this test is supported by the Detail Assembler of Health and Human Service's (HHS's) declaration [...] SARS-CoV-2. Performed By: #### C BC #### [facility] [address] [place] [address] Dr. Katrin Ceja SARS-CoV-2 (COVID-19) RNA NA A+probe Ql (Resp)on 03-27-2022 SARS-CoV-2 (COVID-19) RNA EMMANUELLE+probe Ql (Unsp spec) Negative [employer] Other CBC AUTO DIFFon 03-22-2022 BASO # 0.0 103/ul Normal 0.0-0.1 [facility] Comment on above: Performed By: #### L IPID, CMP #### [facility] [address] [place] [address] Dr. Katrin Ceja Basophils/100 WBC (Bld) 0.3 % Normal 0.2-2.0 [facility] Comment on above: Performed By: #### L IPID, CMP #### [facility] [address] [place] [address] Dr. Katrin Ceja EO # 0.2 103/ul Normal 0.0-0.7 [facility] Comment on above: Performed By: #### L IPID, CMP #### [facility] [address] [place] [address] Dr. Katrin Ceja Eosinophils/100 WBC (Bld) 2.2 % Normal 0.9-7.0 [facility] Comment on above: Performed By: #### L IPID, CMP #### [facility] [address] [place] [address] Dr. Katrin Ceja Erythrocyte distribution width (RBC) [Ratio] 11.9 % Normal 11.0-15.0 [facility] Comment on above: Performed By: #### L IPID, CMP #### [facility] [address] [place] [address] Dr. Katrin Ceja Hematocrit (Bld) [Volume fraction] 36.4 % Normal 36.0-48.0 [facility] Comment on above: Performed By: #### L IPID, CMP #### [facility] [address] [place] [address] Dr. Katrin Ceja Hemoglobin (Bld) [Mass/Vol] 12.6 g/dL Normal 12.0-16.0 [facility] Comment on above: Performed By: #### L IPID, CMP #### [facility] [address] [place] [address] Dr. Katrin Ceja IG # 0.03 10e3/ul Normal 0.00-0.03 [facility] Comment on above: Performed By: #### L IPID, CMP #### [facility] [address] [place] [address] Dr. Katrin Ceja IG % 0.3 % Normal 0.0-0.5 [facility] Comment on above: Performed By: #### L IPID, CMP #### [facility] [address] [address] [address] Katrin Ceja LYMPH # 3.5 103/ul Normal 1.2-3.8 [facility] Comment on above: Performed By: #### L IPID, CMP #### [facility] [address] [place] [address] Dr. Katrin Ceja Lymphocytes/100 WBC (Bld) 33.1 % Normal 20.5-60.0 [facility] Comment on above: Performed By: #### L IPID, CMP #### [facility] [address] [place] [address] Dr. Katrin Ceja MANUAL DIFF REQ NO Normal [facility] Comment on above: Performed By: #### L IPID, CMP #### [facility] [address] [place] [address] Dr. Katrin Ceja MCH (RBC) [Entitic mass] 29.9 pg Normal 26.7-34.0 [facility] Comment on above: Performed By: #### L IPID, CMP #### [facility] [address] [place] [address] Dr. Katrin Ceja MCHC (RBC) [Mass/Vol] 34.6 g/dL Normal 29.9-35.2 [facility] Comment on above: Performed By: #### L IPID, CMP #### [facility] [address] [place] [address] Dr. Katrin Ceja MCV (RBC) [Entitic vol] 86.5 fL Normal 81.0-99.0 [facility] Comment on above: Performed By: #### L IPID, CMP #### [facility] [address] [place] [address] Dr. Katrin Ceja MONO # 0.7 103/ul Normal 0.3-0.8 [facility] Comment on above: Performed By: #### L IPID, CMP #### [facility] [address] [place] [address] Dr. Katrin Ceja Monocytes/100 WBC (Bld) 6.5 % Normal 1.7-12.0 [facility] Comment on above: Performed By: #### L IPID, CMP #### [facility] [address] [place] [address] Dr. Katrin Ceja NEUT # 6.0 103/ul Normal 1.4-6.5 [facility] Comment on above: Performed By: #### L IPID, CMP #### [facility] [address] [place] [address] Dr. Katrin Ceja Neutrophils/100 WBC (Bld) 57.6 % Normal 43.0-75.0 [facility] Comment on above: Performed By: #### L IPID, CMP #### [facility] [address] [place] [address] Dr. Katrin Ceja Platelet mean volume (Bld) [Entitic vol] 8.7 fL Critically low 9.5-13.5 [facility] Comment on above: Performed By: #### L IPID, CMP #### [facility] [address] [place] [address] Dr. Katrin Ceja PLT 282 103/ul Normal 150-450 [facility] Comment on above: Performed By: #### L IPID, CMP #### [facility] [address] [place] [address] Dr. Katrin Ceja RBC 4.21 106/ul Normal 4.20-5.40 [facility] Comment on above: Performed By: #### L IPID, CMP #### [facility] [address] [place] [address] Dr. Katrin Ceja WBC 10.5 103/ul Normal 4.0-11.0 [facility] Comment on above: Performed By: #### L IPID, CMP #### [facility] [address] [place] [address] Dr. Katrin Ceja ER URINE PROFILEon 2 Bilirubin Ql (U) Negative Normal NEGATIVE [facility] Comment on above: Performed By: #### L IPID, CMP #### [facility] [address] [place] [address] Dr. Katrin Ceja Clarity (U) CLEAR Normal CLEAR [facility] Comment on above: Performed By: #### L IPID, CMP #### [facility] [address] [address] [address] Katrin Ceja Color (U) LT. YELLOW Normal YELLOW [facility] Comment on above: Performed By: #### L IPID, CMP #### [facility] [address] [address] [address] Katrin Ceja ERUAHD A micrscopic examina tion will be performed if indicated. Normal [facility] Comment on above: Performed By: #### L IPID, CMP #### [facility] [address] [place] [address] Dr. Katrin Ceja Glucose Ql (U) Negative Normal NEGATIVE [facility] Comment on above: Performed By: #### L IPID, CMP #### [facility] [address] [place] [address] Dr. Katrin Ceja Hemoglobin Ql (U) Negative Normal NEGATIVE [facility] Comment on above: Performed By: #### L IPID, CMP #### [facility] [address] [place] [address] Dr. Katrin Ceja Ketones Ql (U) Negative Normal NEGATIVE [facility] Comment on above: Performed By: #### L IPID, CMP #### [facility] [address] [place] [address] Dr. Katrin Ceja LEUKOCYTES Negative Normal NEGATIVE [facility] Comment on above: Performed By: #### L IPID, CMP #### [facility] [address] [address] [address] Katrin Ceja Nitrite Ql (U) Negative Normal NEGATIVE [facility] Comment on above: Performed By: #### L IPID, CMP #### [facility] [address] [place] [address] Dr. Katrin Ceja pH (U) 6.0 [pH] Normal 5-9 [facility] Comment on above: Performed By: #### L IPID, CMP #### [facility] [address] [place] [address] Dr. Katrin Ceja SPEC GRAVITY 1.015 Normal 1.005-<=1. 025 [facility] Comment on above: Performed By: #### L IPID, CMP #### [facility] [address] [place] [address] Dr. Katrin Ceja UA PROTEIN Negative Normal NEGATIVE/ TRACE [facility] Comment on above: Performed By: #### L IPID, CMP #### [facility] [address] [place] [address] Dr. Katrin Ceja UR MICRO IND NOT INDICATED Normal [facility] Comment on above: Performed By: #### L IPID, CMP #### [facility] [address] [place] [address] Dr. Katrin Ceja Urobilinogen Qn (U) 0.2 {Jeannie'U}/dL Normal 0.2 - 1. 0 [facility] Comment on above: Performed By: #### L IPID, CMP #### [facility] [address] [place] [address] Dr. Katrin Ceja LIPASEon 03-22-2022 Lipase [Catalytic activity/Vol] 84.0 U/L Normal 73.0-393.0 [facility] Comment on above: Performed By: #### H STROPN, CMP, LIPA #### [facility] [address] [place] [address] Dr. Katrin Ceja URon 03-22-2022 , QUAL Negative Normal NEGATIVE [facility] Comment on above: Performed By: #### L IPID, CMP #### [facility] [address] [place] [address] Dr. Katrin Ceja PROF 14(COMP METB)on 022 Albumin [Mass/Vol] 3.2 g/dL Critically low 3.4-5.0 Th e [facility] Comment on above: Performed By: #### H STROPN, CMP, LIPA #### [facility] [address] [place] [address] Dr. Katrin Ceja Albumin/Globulin [Mass ratio] 0.8 {ratio} Normal [facility] Comment on above: Performed By: #### H STROPN, CMP, LIPA #### [facility] [address] [address] [address] Katrin Ceja ALP [Catalytic activity/Vol] 189 U/L Critically high 46-116 [facility] Comment on above: Performed By: #### H STROPN, CMP, LIPA #### [facility] [address] [address] [address] Katrin Ceja ALT [Catalytic activity/Vol] 31 U/L Normal 14-59 [facility] Comment on above: Performed By: #### H STROPN, CMP, LIPA #### [facility] [address] [address] [address] Katrin Ceja Anion gap [Moles/Vol] 9.9 mmol/L Normal [facility] Comment on above: Performed By: #### H STROPN, CMP, LIPA #### [facility] [address] [address] [address] Katrin Ceja AST [Catalytic activity/Vol] 17 U/L Normal 15-37 [facility] Comment on above: Performed By: #### H STROPN, CMP, LIPA #### [facility] [address] [address] [address] Katrin Ceja Bilirubin [Mass/Vol] 0.2 mg/dL Normal 0.2-1.0 [facility] Comment on above: Performed By: #### H STROPN, CMP, LIPA #### [facility] [address] [address] [address] Katrin Ceja Calcium [Mass/Vol] 8.7 mg/dL Normal 8.5-10.1 [facility] Comment on above: Performed By: #### H STROPN, CMP, LIPA #### [facility] [address] [address] [address] Katrin Ceja Chloride [Moles/Vol] 103 mmol/L Normal 98-107 [facility] Comment on above: Performed By: #### H STROPN, CMP, LIPA #### [facility] [address] [address] [address] Katrin Ceja CO2 [Moles/Vol] 25.4 mmol/L Normal 21.0-32.[address] [facility] Comment on above: Performed By: #### H STROPN, CMP, LIPA #### [facility] [address] [address] [address] Katrin Ceja Creatinine [Mass/Vol] 0.71 mg/dL Normal 0.55-1.02 [facility] Comment on above: Performed By: #### H STROPN, CMP, LIPA #### [facility] [address] [address] [address] Katrin Ceja EGFR-AF GUYANESE >60 Normal >=[address] [facility] Comment on above: Performed By: #### H STROPN, CMP, LIPA #### [facility] [address] [address] [address] Katrin Ceja EGFR-NON AF GUYANESE >60 Normal >=60 [facility] Comment on above: Performed By: #### H STROPN, CMP, LIPA #### [facility] [address] [address] [address] Katrin Ceja Globulin (S) [Mass/Vol] 4.0 g/dL Normal [facility] Comment on above: Performed By: #### H STROPN, CMP, LIPA #### [facility] [address] [place] [address] Dr. Katrin Ceja Glucose [Mass/Vol] 106 mg/dL Normal 74-106 [facility] Comment on above: Performed By: #### H STROPN, CMP, LIPA #### [facility] [address] [address] [address] Katrin Ceja Potassium [Moles/Vol] 3.3 mmol/L Critically low 3.5-5.1 [facility] Comment on above: Performed By: #### H STROPN, CMP, LIPA #### [facility] [address] [place] [address] Dr. Katrin Ceja Protein [Mass/Vol] 7.2 g/dL Normal 6.4-8.2 [facility] Comment on above: Performed By: #### H STROPN, CMP, LIPA #### [facility] [address] [place] [address] Dr. Katrin Ceja Sodium [Moles/Vol] 135 mmol/L Critically low 136-145 Th e [facility] Comment on above: Performed By: #### H STROPN, CMP, LIPA #### [facility] [address] [address] [address] Katrin Ceja Urea nitrogen [Mass/Vol] 5.0 mg/dL Critically low 7.0-18.0 [facility] Comment on above: Performed By: #### H STROPN, CMP, LIPA #### [facility] [address] [address] [address] Katrin Ceja Urea nitrogen/Creatinine [Mass ratio] 7.0 mg/mg Normal [facility] Comment on above: Performed By: #### H STROPN, CMP, LIPA #### [facility] [address] [address] [address] Katrin Ceja TROPONIN, HIGH SENSITIVITYon 03-22-2022 HSTROP <4.0 Normal 4.0-51.3 [facility] Comment on above: Result Comment: CUT- OFF POINTS HAVE BEEN ESTABLISHED BASED ON THE FOURTH UNIVERSAL DEFINITIONS OF MYOCARDIAL INFARCTION. THE UPPER REFERENCE LIMIT (URL) OF TROPONIN, DEFINED THE 99TH PERCENTILE OF cTnI DISTRIBUTION IN A REFERENCE POPULATION, HAS BEEN CONFIRMED THE DECISION THRESHOLD FOR SC DIAGNOSIS. Performed By: #### H STROPN, CMP, LIPA #### [facility] [address] [place] [address] Dr. Katrin Ceja XR ABD FLAT UP_PA [...] GERI LASSITER Date: 2022-03-22 01:53 Normal [facility] XR ANKLE LT MIN 3 Von 2021 XR ANKLE LT MIN 3 V EXAM: XR ANKLE LT SC N 3 V HISTORY: Ankle pain COMPARISON: None. TECHNIQUE: 3 views FINDINGS: No osseous lesion, fracture, dislocation or subluxation. Joint spaces are normal. Old posttraumatic ossifications adjacent to the tip of the lateral malleolus. No visualized effusion. No visualized soft tissue edema. IMPRESSION: Normal x-rays Electronically authenticated by: DANNI QUINONES Date: 2022-03-09 19:32 Normal [facility] CBC AUTO DIFFon 02-08-2022 BASO # 0.0 103/ul Normal 0.0-0.1 [facility] Comment on above: Performed By: #### C BC #### [facility] [address] [place] [address] Dr. Katrin Ceja Basophils/100 WBC (Bld) 0.3 % Normal 0.2-2.0 [facility] Comment on above: Performed By: #### C BC #### [facility] [address] [place] [address] Dr. Katrin Ceja EO # 0.3 103/ul Normal 0.0-0.7 [facility] Comment on above: Performed By: #### C BC #### [facility] [address] [place] [address] Dr. Katrin Ceja Eosinophils/100 WBC (Bld) 3.0 % Normal 0.9-7.0 [facility] Comment on above: Performed By: #### C BC #### [facility] [address] [place] [address] Dr. Katrin Ceja Erythrocyte distribution width (RBC) [Ratio] 12.2 % Normal 11.0-15.0 [facility] Comment on above: Performed By: #### C BC #### [facility] [address] [place] [address] Dr. Katrin Ceja Hematocrit (Bld) [Volume fraction] 33.8 % Critically low 36.0-48.0 [facility] Comment on above: Performed By: #### C BC #### [facility] [address] [place] [address] Dr. Katrin Ceja Hemoglobin (Bld) [Mass/Vol] 11.9 g/dL Critically low 12.0-16.0 [facility] Comment on above: Performed By: #### C BC #### [facility] [address] [place] [address] Dr. Katrin Ceja IG # 0.04 10e3/ul Critically high 0.00-0.03 [facility] Comment on above: Performed By: #### C BC #### [facility] [address] [place] [address] Dr. Katrin Ceja IG % 0.4 % Normal 0.0-0.5 [facility] Comment on above: Performed By: #### C BC #### [facility] [address] [place] [address] Dr. Katrin Ceja LYMPH # 3.0 103/ul Normal 1.2-3.8 [facility] Comment on above: Performed By: #### C BC #### [facility] [address] [place] [address] Dr. Katrin Ceja Lymphocytes/100 WBC (Bld) 28.4 % Normal 20.5-60.0 [facility] Comment on above: Performed By: #### C BC #### [facility] [address] [place] [address] Dr. Katrin Ceja MANUAL DIFF REQ NO Normal [facility] Comment on above: Performed By: #### C BC #### [facility] [address] [place] [address] Dr. Katrin Ceja MCH (RBC) [Entitic mass] 29.8 pg Normal 26.7-34.0 [facility] Comment on above: Performed By: #### C BC #### [facility] [address] [place] [address] Dr. Katrin Ceja MCHC (RBC) [Mass/Vol] 35.2 g/dL Normal 29.9-35.2 [facility] Comment on above: Performed By: #### C BC #### [facility] [address] [address] [address] Katrin Ceja MCV (RBC) [Entitic vol] 84.7 fL Normal 81.0-99.0 [facility] Comment on above: Performed By: #### C BC #### [facility] [address] [address] [address] Katrin Ceja MONO # 0.7 103/ul Normal 0.3-0.8 [facility] Comment on above: Performed By: #### C BC #### [facility] [address] [address] [address] Katrin Ceja Monocytes/100 WBC (Bld) 6.6 % Normal 1.7-12.0 [facility] Comment on above: Performed By: #### C BC #### [facility] [address] [address] [address] Katrin Ceja NEUT # 6.4 103/ul Normal 1.4-6.5 [facility] Comment on above: Performed By: #### C BC #### [facility] [address] [address] [address] Katrin Ceja Neutrophils/100 WBC (Bld) 61.3 % Normal 43.0-75.0 [facility] Comment on above: Performed By: #### C BC #### [facility] [address] [address] [address] Katrin Ceja Platelet mean volume (Bld) [Entitic vol] 8.9 fL Critically low 9.5-13.5 [facility] Comment on above: Performed By: #### C BC #### [facility] [address] [address] [address] Katrin Ceja PLT 299 103/ul Normal 150-450 [facility] Comment on above: Performed By: #### C BC #### [facility] [address] [address] [address] Katrin Ceja RBC 3.99 106/ul Critically low 4.20-5.40 [facility] Comment on above: Performed By: #### C BC #### [facility] [address] [place] [address] Dr. Katrin Ceja WBC 10.4 103/ul Normal 4.0-11.0 [facility] Comment on above: Performed By: #### C BC #### [facility] [address] [place] [address] Dr. Katrin Ceja D-DIMERon 02-08-2022 D-DIMER 0.59 mg/L FEU Normal <=0.59 [facility] Comment on above: Performed By: #### L IPID, CMP #### [facility] [address] [place] [address] Dr. Katrin Ceja D-DIMER COMMENTS SEE BELOW Normal [facility] Comment on above: Result Comment: Incr [...] Performed By: #### L IPID, CMP #### [facility] [address] [place] [address] Dr. Katrin Ceja PROF CHEM 8 (BAS METB)on Anion gap [Moles/Vol] 12.8 mmol/L Normal [facility] Comment on above: Performed By: #### C BC #### [facility] [address] [place] [address] Dr. Katrin Ceja Calcium [Mass/Vol] 8.7 mg/dL Normal 8.5-10.1 [facility] Comment on above: Performed By: #### C BC #### [facility] [address] [place] [address] Dr. Katrin Ceja Chloride [Moles/Vol] 102 mmol/L Normal 98-107 [facility] Comment on above: Performed By: #### C BC #### [facility] [address] [address] [address] Katrin Ceja CO2 [Moles/Vol] 25.9 mmol/L Normal 21.0-32.[address] [facility] Comment on above: Performed By: #### C BC #### [facility] [address] [place] [address] Dr. Katrin Ceja Creatinine [Mass/Vol] 0.70 mg/dL Normal 0.55-1.02 [facility] Comment on above: Performed By: #### C BC #### [facility] [address] [place] [address] Dr. Katrin Ceja EGFR-AF GUYANESE >60 Normal >=[address] [facility] Comment on above: Performed By: #### C BC #### [facility] [address] [place] [address] Dr. Katrin Ceja EGFR-NON AF GUYANESE >60 Normal >=60 [facility] Comment on above: Performed By: #### C BC #### [facility] [address] [place] [address] Dr. Katrin Ceja Glucose [Mass/Vol] 95 mg/dL Normal 74-106 [facility] Comment on above: Performed By: #### C BC #### [facility] [address] [place] [address] Dr. Katrin Ceja Potassium [Moles/Vol] 2.7 mmol/L Critically low 3.5-5.1 [facility] Comment on above: Result Comment: Test Repeated. Critical Value Verified Performed By: #### C BC #### [facility] [address] [place] [address] Dr. Katrin Ceja Sodium [Moles/Vol] 136 mmol/L Normal 136-145 [facility] Comment on above: Performed By: #### C BC #### [facility] [address] [place] [address] Dr. Katrin Ceja Urea nitrogen [Mass/Vol] 3.0 mg/dL Critically low 7.0-18.0 [facility] Comment on above: Performed By: #### C BC #### [facility] [address] [place] [address] Dr. Katrin Ceja Urea nitrogen/Creatinine [Mass ratio] 4.3 mg/mg Normal [facility] Comment on above: Performed By: #### C BC #### [facility] [id number] Katrin Ceja XR CHEST 2 Von [...] by: RIVER RODGERS Date: 2022-02-08 04:19 Normal [facility] LIPID PROFILEon 12-18-2021 CHOL-HDL RATIO NORM SEE BELOW Normal [facility] Comment on above: Result Comment: 3.3 - 4.4 LOW RISK 4.4 - 7.1 AVERAGE RISK 7.1 - 11.0 MODERATE RISK >11.0 HIGH RISK Performed By: #### L IPID, LIVER #### [facility] [address] [place], [place] [id number] Dr. Katrin Ceja Cholesterol [Mass/Vol] 126 mg/dL Normal <=200 [facility] Comment on above: Performed By: #### L IPID, LIVER #### [facility] [address] [place], [place] [address] Dr. Katrin Ceja Cholesterol in HDL [Mass/Vol] 31 mg/dL Critically low 40-60 [facility] Comment on above: Performed By: #### L IPID, LIVER #### [facility] [address] [place], [place] [address] Dr. Katrin Ceja Cholesterol in LDL [Mass/Vol] 59.2 mg/dL Normal [facility] Comment on above: Performed By: #### L IPID, LIVER #### [facility] [address] [place], [place] [address] Dr. Katrin Ceja Cholesterol.total/Chol esterol in HDL [Mass ratio] 4.1 {ratio} Normal [facility] Comment on above: Performed By: #### L IPID, LIVER #### [facility] [address] [address] [address] Katrin Ceja HDL NORMAL > or = 60 mg/dl - LO W CARDIOVASCULAR RISK <40 mg/dl - HIGH CARDIOVASCULAR RISK Normal [facility] Comment on above: Performed By: #### L IPID, LIVER #### [facility] [address] [address] [address] Katrin Ceja LDL CALC NORMAL SEE BELOW Normal [facility] Comment on above: Result Comment: <100 mg/dl OPTIMAL 100 - 129 mg/dl NEAR OR ABOVE OPTIMAL 130 - 159 mg/dl BORDERLINE HIGH 160 - 189 mg/dl HIGH >190 mg/dl VERY HIGH Performed By: #### L IPID, LIVER #### [facility] [address] [place] [address] Dr. Katrin Ceja Triglyceride [Mass/Vol] 179 mg/dL Critically high <=150 [facility] Comment on above: Performed By: #### L IPID, LIVER #### [facility] [address] [place] [address] Dr. Katrin Ceja VLDL CALC 35.8 mg/dL Normal [facility] Comment on above: Performed By: #### L IPID, LIVER #### [facility] [address] [place] [address] Dr. Katrin Ceja LIVER PROFILEon 12-18-2021 Albumin [Mass/Vol] 3.6 g/dL Normal 3.4-5.0 [facility] Comment on above: Performed By: #### L IPID, LIVER #### [facility] [address] [place] [address] Dr. Katrin Ceja Albumin/Globulin [Mass ratio] 0.8 {ratio} Normal [facility] Comment on above: Performed By: #### L IPID, LIVER #### [facility] [address] [address] [address] Katrin Ceja ALP [Catalytic activity/Vol] 196 U/L Critically high 46-116 [facility] Comment on above: Performed By: #### L IPID, LIVER #### [facility] [address] [address] [address] Katrin Ceja ALT [Catalytic activity/Vol] 51 U/L Normal 14-59 [facility] Comment on above: Performed By: #### L IPID, LIVER #### [facility] [address] [address] [address] Katrin Ceja AST [Catalytic activity/Vol] 22 U/L Normal 15-37 [facility] Comment on above: Performed By: #### L IPID, LIVER #### [facility] [address] [address] [address] Katrin Ceja BILI, CONJUGATED 0.1 mg/dL Normal 0.0-0.2 [facility] Comment on above: Performed By: #### L IPID, LIVER #### [facility] [address] [place] [address] Dr. Katrin Ceja Bilirubin [Mass/Vol] 0.4 mg/dL Normal 0.2-1.0 [facility] Comment on above: Performed By: #### L IPID, LIVER #### [facility] [address] [place] [address] Dr. Katrin Ceja Globulin (S) [Mass/Vol] 4.4 g/dL Normal [facility] Comment on above: Performed By: #### L IPID, LIVER #### [facility] [address] [place] [address] Dr. Katrin Ceja Protein [Mass/Vol] 8.0 g/dL Normal 6.4-8.2 [facility] Comment on above: Performed By: #### L IPID, LIVER #### [facility] [address] [place] [address] Dr. Katrin Ceja XR FOOT RT MIN [...] by: RIVER RODGERS Date: 2021-12-07 00:19 Normal [facility] PROF 14(COMP METB)on 022 Albumin [Mass/Vol] 3.6 g/dL Normal 3.4-5.0 [facility] Comment on above: Performed By: #### L IPID, CMP #### [facility] [address] [address] [address] Katrin Ceja Albumin/Globulin [Mass ratio] 0.8 {ratio} Normal [facility] Comment on above: Performed By: #### L IPID, CMP #### [facility] [address] [place] [address] Dr. Katrin Ceja ALP [Catalytic activity/Vol] 209 U/L Critically high 46-116 [facility] Comment on above: Performed By: #### L IPID, CMP #### [facility] [address] [address] [address] Katrin Ceja ALT [Catalytic activity/Vol] 65 U/L Critically high 14-59 [facility] Comment on above: Performed By: #### L IPID, CMP #### [facility] [address] [address] [address] Katrin Ceja Anion gap [Moles/Vol] 15.7 mmol/L Normal [facility] Comment on above: Performed By: #### L IPID, CMP #### [facility] [address] [address] [address] Katrin Ceja AST [Catalytic activity/Vol] 31 U/L Normal 15-37 [facility] Comment on above: Performed By: #### L IPID, CMP #### [facility] [address] [address] [address] Katrin Ceja Bilirubin [Mass/Vol] 0.2 mg/dL Normal 0.2-1.3 [facility] Comment on above: Performed By: #### L IPID, CMP #### [facility] [address] [address] [address] Katrin Ceja Calcium [Mass/Vol] 8.8 mg/dL Normal 8.5-10.1 [facility] Comment on above: Performed By: #### L IPID, CMP #### [facility] [address] [place] [address] Dr. Katrin Ceja Chloride [Moles/Vol] 105 mmol/L Normal 98-107 [facility] Comment on above: Performed By: #### L IPID, CMP #### [facility] [address] [place] [address] Dr. Katrin Ceja CO2 [Moles/Vol] 21.3 mmol/L Critically low 22.0-30.0 [facility] Comment on above: Performed By: #### L IPID, CMP #### [facility] [address] [place] [address] Dr. Katrin Ceja Creatinine [Mass/Vol] 0.72 mg/dL Normal 0.52-1.04 [facility] Comment on above: Performed By: #### L IPID, CMP #### [facility] [address] [place] [address] Dr. Katrin Ceja EGFR-AF GUYANESE >60 Normal >=60 [facility] Comment on above: Performed By: #### L IPID, CMP #### [facility] [address] [place] [address] Dr. Katrin Ceja EGFR-NON AF GUYANESE >60 Normal >=60 [facility] Comment on above: Performed By: #### L IPID, CMP #### [facility] [address] [place] [address] Dr. Katrin Ceja Globulin (S) [Mass/Vol] 4.3 g/dL Normal [facility] Comment on above: Performed By: #### L IPID, CMP #### [facility] [address] [address] [address] Katrin Ceja Glucose [Mass/Vol] 99 mg/dL Normal 74-106 [facility] Comment on above: Performed By: #### L IPID, CMP #### [facility] [address] [address] [address] Katrin Ceja Potassium [Moles/Vol] 4.0 mmol/L Normal 3.4-5.0 [facility] Comment on above: Performed By: #### L IPID, CMP #### [facility] [address] [address] [address] Katrin Ceja Protein [Mass/Vol] 7.9 g/dL Normal 6.1-8.2 [facility] Comment on above: Performed By: #### L IPID, CMP #### [facility] [address] [address] [address] Katrin Ceja Sodium [Moles/Vol] 138 mmol/L Normal 137-145 [facility] Comment on above: Performed By: #### L IPID, CMP #### [facility] [address] [place] [address] Dr. Katrin Ceja Urea nitrogen [Mass/Vol] 13.0 mg/dL Normal 7.0-18.0 [facility] Comment on above: Performed By: #### L IPID, CMP #### [facility] [address] [place] [address] Dr. Katrin Ceja Urea nitrogen/Creatinine [Mass ratio] 18.1 mg/mg Normal [facility] Comment on above: Performed By: #### L IPID, CMP #### [facility] [address] [place] [address] Dr. Katrin Ceja XR HUMERUS RT MIN [...] by: TRAY NAVA Date: 2021-10-17 01:46 Normal [facility] XR SHOULDER RT 2V or >on [...] TRAY NAVA Date: 2021-10-17 01:45 Normal [facility] XR WRIST RT MIN 3 Von 2021 XR WRIST RT MIN 3 V EXAM: XR WRIST RT SC N 3 V HISTORY: Pain acute right arm pain following fall. COMPARISON: None. TECHNIQUE: AP, oblique and lateral views of the right wrist. FINDINGS: No acute or intrinsic osseous, articular or soft tissue abnormality is seen. IMPRESSION: No acute right wrist findings. Electronically authenticated by: TRAY NAVA Date: 2021-10-17 01:44 Normal [facility] AMYLASEon 09-18-2021 Amylase [Catalytic activity/Vol] 34 U/L Normal 31-110 [facility] Comment on above: Performed By: #### P REG #### [facility] [address] [place] [address] Dr. Katrin Ceja CBC AUTO DIFFon 09-18-2021 BASO # 0.0 103/ul Normal 0.0-0.1 [facility] Comment on above: Performed By: #### C BC #### [facility] [address] [place] [address] Dr. Katrin Ceja Basophils/100 WBC (Bld) 0.3 % Normal 0.2-2.0 [facility] Comment on above: Performed By: #### C BC #### [facility] [address] [place] [address] Dr. Katrin Ceja EO # 0.2 103/ul Normal 0.0-0.7 [facility] Comment on above: Performed By: #### C BC #### [facility] [address] [place] [address] Dr. Katrin Ceja Eosinophils/100 WBC (Bld) 2.4 % Normal 0.9-7.0 [facility] Comment on above: Performed By: #### C BC #### [facility] [address] [place] [address] Dr. Katrin Ceja Erythrocyte distribution width (RBC) [Ratio] 12.5 % Normal 11.0-15.0 [facility] Comment on above: Performed By: #### C BC #### [facility] [address] [place] [address] Dr. Katrin Ceja Hematocrit (Bld) [Volume fraction] 37.4 % Normal 36.0-48.0 [facility] Comment on above: Performed By: #### C BC #### [facility] [address] [place] [address] Dr. Katrin Ceja Hemoglobin (Bld) [Mass/Vol] 12.3 g/dL Normal 12.0-16.0 [facility] Comment on above: Performed By: #### C BC #### [facility] [address] [place] [address] Dr. Katrin Ceja IG # 0.05 10e3/ul Critically high 0.00-0.03 [facility] Comment on above: Performed By: #### C BC #### [facility] [address] [place] [address] Dr. Katrin Ceja IG % 0.5 % Normal 0.0-0.5 [facility] Comment on above: Performed By: #### C BC #### [facility] [address] [place] [address] Dr. Katrin Ceja LYMPH # 3.1 103/ul Normal 1.2-3.8 [facility] Comment on above: Performed By: #### C BC #### [facility] [address] [place] [address] Dr. Katrin Ceja Lymphocytes/100 WBC (Bld) 31.7 % Normal 20.5-60.0 [facility] Comment on above: Performed By: #### C BC #### [facility] [address] [place] [address] Dr. Katrin Ceja MANUAL DIFF REQ NO Normal [facility] Comment on above: Performed By: #### C BC #### [facility] [address] [place] [address] Dr. Katrin Ceja MCH (RBC) [Entitic mass] 28.9 pg Normal 26.7-34.0 [facility] Comment on above: Performed By: #### C BC #### [facility] [address] [address] [address] Katrin Ceja MCHC (RBC) [Mass/Vol] 32.9 g/dL Normal 29.9-35.2 [facility] Comment on above: Performed By: #### C BC #### [facility] [address] [address] [address] Katrin Ceja MCV (RBC) [Entitic vol] 88.0 fL Normal 81.0-99.0 [facility] Comment on above: Performed By: #### C BC #### [facility] [address] [place] [address] Dr. Katrin Ceja MONO # 0.7 103/ul Normal 0.3-0.8 [facility] Comment on above: Performed By: #### C BC #### [facility] [address] [place] [address] Dr. Katrin Ceja Monocytes/100 WBC (Bld) 6.7 % Normal 1.7-12.0 [facility] Comment on above: Performed By: #### C BC #### [facility] [address] [place] [address] Dr. Katrin Ceja NEUT # 5.7 103/ul Normal 1.4-6.5 [facility] Comment on above: Performed By: #### C BC #### [facility] [address] [place] [address] Dr. Katrin Ceja Neutrophils/100 WBC (Bld) 58.4 % Normal 43.0-75.0 [facility] Comment on above: Performed By: #### C BC #### [facility] [address] [place] [address] Dr. Katrin Ceja Platelet mean volume (Bld) [Entitic vol] 8.8 fL Critically low 9.5-13.5 [facility] Comment on above: Performed By: #### C BC #### [facility] [address] [place] [address] Dr. Katrin Ceja PLT 265 103/ul Normal 150-450 [facility] Comment on above: Performed By: #### C BC #### [facility] [address] [place], [place] [address] Dr. Katrin Ceja RBC 4.25 106/ul Normal 4.20-5.40 [facility] Comment on above: Performed By: #### C BC #### [facility] [address] [place], [place] [address] Dr. Katrin Ceja WBC 9.7 103/ul Normal 4.0-11.0 [facility] Comment on above: Performed By: #### C BC #### [facility] [address] [place], [place] [address] ABD/PELV W CONon [...] ISAIAH FAROOQ Date: 2021-09-18 03:51 Normal [facility] ER URINE PROFILEon 2 Bilirubin Ql (U) Negative Normal NEGATIVE [facility] Comment on above: Performed By: #### C BC #### [facility] [address] [address] [address] Katrin Ceja Clarity (U) CLEAR Normal CLEAR [facility] Comment on above: Performed By: #### C BC #### [facility] [address] [place] [address] Dr. Katrin Ceja Color (U) LT. YELLOW Normal YELLOW [facility] Comment on above: Performed By: #### C BC #### [facility] [address] [place] [address] Dr. Katrin Ceja ERUAHD A micrscopic examina tion will be performed if indicated. Normal [facility] Comment on above: Performed By: #### C BC #### [facility] [address] [place] [address] Dr. Katrin Ceja Glucose Ql (U) Negative Normal NEGATIVE [facility] Comment on above: Performed By: #### C BC #### [facility] [address] [place] [address] Dr. Katrin Ceja Hemoglobin Ql (U) SMALL Abnormal NEGATIVE [facility] Comment on above: Performed By: #### C BC #### [facility] [address] [place] [address] Dr. Katrin Ceja Ketones Ql (U) Negative Normal NEGATIVE [facility] Comment on above: Performed By: #### C BC #### [facility] [address] [place] [address] Dr. Katrin Ceja LEUKOCYTES Negative Normal NEGATIVE [facility] Comment on above: Performed By: #### C BC #### [facility] [address] [place] [address] Dr. Katrin Ceja Nitrite Ql (U) Negative Normal NEGATIVE [facility] Comment on above: Performed By: #### C BC #### [facility] [address] [place] [address] Dr. Katrin Ceja pH (U) 7.5 [pH] Normal 5-9 [facility] Comment on above: Performed By: #### C BC #### [facility] [address] [place] [address] Dr. Katrin Ceja SPEC GRAVITY 1.010 Normal 1.005-<=1. 025 [facility] Comment on above: Performed By: #### C BC #### [facility] [address] [place] [address] Dr. Katrin Ceja UA PROTEIN Negative Normal NEGATIVE/ TRACE [facility] Comment on above: Performed By: #### C BC #### [facility] [address] [place] [address] Dr. Katrin Ceja UR MICRO IND INDICATED Normal [facility] Comment on above: Performed By: #### C BC #### [facility] [address] [place] [address] Dr. Katrin Ceja Urobilinogen Qn (U) 0.2 {Jeannie'U}/dL Normal 0.2 - 1. 0 [facility] Comment on above: Performed By: #### C BC #### [facility] [address] [place] [address] Dr. Katrin Ceja LIPASEon 09-18-2021 Lipase [Catalytic activity/Vol] 81.0 U/L Normal 23.0-300.0 [facility] Comment on above: Performed By: #### P REG #### [facility] [address] [place] [address] Dr. Katrin Ceja URon 09-18-2021 , QUAL Negative Normal NEGATIVE [facility] Comment on above: Performed By: #### C BC #### [facility] [address] [place] [address] Dr. Katrin Ceja PROF 14(COMP METB)on 022 Albumin [Mass/Vol] 3.2 g/dL Critically low 3.5-5.0 [facility] Comment on above: Performed By: #### P REG #### [facility] [address] [place] [address] Dr. Katrin Ceja Albumin/Globulin [Mass ratio] 0.8 {ratio} Normal [facility] Comment on above: Performed By: #### P REG #### [facility] [address] [address] [address] Katrin Ceja ALP [Catalytic activity/Vol] 216 U/L Critically high 38-126 [facility] Comment on above: Performed By: #### P REG #### [facility] [address] [place] [address] Dr. Katrin Ceja ALT [Catalytic activity/Vol] 109 U/L Critically high 9-52 [facility] Comment on above: Performed By: #### P REG #### [facility] [address] [place] [address] Dr. Katrin Ceja Anion gap [Moles/Vol] 10.5 mmol/L Normal [facility] Comment on above: Performed By: #### P REG #### [facility] [address] [place] [address] Dr. Katrin Ceja AST [Catalytic activity/Vol] 66 U/L Critically high 14-36 [facility] Comment on above: Performed By: #### P REG #### [facility] [address] [place] [address] Dr. Katrin Ceja Bilirubin [Mass/Vol] 0.2 mg/dL Normal 0.2-1.3 [facility] Comment on above: Performed By: #### P REG #### [facility] [address] [place] [address] Dr. Katrin Ceja Calcium [Mass/Vol] 8.3 mg/dL Critically low 8.4-10.2 [facility] Comment on above: Performed By: #### P REG #### [facility] [address] [place] [address] Dr. Katrin Ceja Chloride [Moles/Vol] 103 mmol/L Normal 98-107 [facility] Comment on above: Performed By: #### P REG #### [facility] [address] [place] [address] Dr. Katrin Ceja CO2 [Moles/Vol] 26.2 mmol/L Normal 22.0-30.0 [facility] Comment on above: Performed By: #### P REG #### [facility] [address] [place] [address] Dr. Katrin Ceja Creatinine [Mass/Vol] 0.81 mg/dL Normal 0.52-1.04 [facility] Comment on above: Performed By: #### P REG #### [facility] [address] [address] [address] Katrin Ceja EGFR-AF GUYANESE >60 Normal >=60 [facility] Comment on above: Performed By: #### P REG #### [facility] [address] [address] [address] Katrin Ceja EGFR-NON AF GUYANESE >60 Normal >=60 [facility] Comment on above: Performed By: #### P REG #### [facility] [address] [address] [address] Katrin Ceja Globulin (S) [Mass/Vol] 4.1 g/dL Normal [facility] Comment on above: Performed By: #### P REG #### [facility] [address] [address] [address] Katrin Ceja Glucose [Mass/Vol] 90 mg/dL Normal 74-106 [facility] Comment on above: Performed By: #### P REG #### [facility] [address] [address] [address] Katrin Ceja Potassium [Moles/Vol] 3.7 mmol/L Normal 3.4-5.0 [facility] Comment on above: Performed By: #### P REG #### [facility] [address] [address] [address] Katrin Ceja Protein [Mass/Vol] 7.3 g/dL Normal 6.1-8.2 [facility] Comment on above: Performed By: #### P REG #### [facility] [address] [address] [address] Katrin Ceja Sodium [Moles/Vol] 136 mmol/L Critically low 137-145 [facility] Comment on above: Performed By: #### P REG #### [facility] [address] [address] [address] Katrin Ceja Urea nitrogen [Mass/Vol] 5.0 mg/dL Critically low 7.0-17.0 [facility] Comment on above: Performed By: #### P REG #### [facility] [address] [place] [address] Dr. Katrin Ceja Urea nitrogen/Creatinine [Mass ratio] 6.2 mg/mg Normal [facility] Comment on above: Performed By: #### P REG #### [facility] [address] [place] [address] Dr. Katrin Ceja URINE MICROSCOPIC ONLYon BACTERIA NONE SEEN Normal NONE SEEN [facility] Comment on above: Performed By: #### C BC #### [facility] [address] [place] [address] Dr. Katrin Ceja Bacteria identified Cx Nom (U) NOT INDICATED Normal [facility] Comment on above: Performed By: #### C BC #### [facility] [address] [place] [address] Dr. Katrin Ceja CAST NONE SEEN Normal NONE SEEN [facility] Comment on above: Performed By: #### C BC #### [facility] [address] [place] [address] Dr. Katrin Ceja Crystals LM Nom (Urine sed) NONE SEEN Normal NONE SEEN [facility] Comment on above: Performed By: #### C BC #### [facility] [address] [place] [address] Dr. Katrin Ceja Epithelial cells LM Ql (Urine sed) FEW Abnormal NONE SEEN /RARE [facility] Comment on above: Performed By: #### C BC #### [facility] [address] [place] [address] Dr. Katrin Ceja MUCOUS NONE SEEN Normal NONE SEEN [facility] Comment on above: Performed By: #### C BC #### [facility] [address] [place] [address] Dr. Katrin Ceja RBC NONE SEEN Abnormal 0-2 [facility] Comment on above: Performed By: #### C BC #### [facility] [address] [place] [address] Dr. Katrin Ceja WBC NONE SEEN Normal NONE SEEN [facility] Comment on above: Performed By: #### C BC #### [facility] [address] [place] [address] Dr. Katrin Ceja XR ABD FLAT UP_PA [...] ISAIAH FAROOQ Date: 2021-09-18 02:00 Normal [facility] CBC AUTO DIFFon 07-18-2021 BASO # 0.0 103/ul Normal 0.0-0.1 [facility] Comment on above: Performed By: #### C BC #### [facility] [address] [place] [address] Dr. Katrin Ceja Basophils/100 WBC (Bld) 0.3 % Normal 0.2-2.0 [facility] Comment on above: Performed By: #### C BC #### [facility] [address] [place] [address] Dr. Katrin Ceja EO # 0.2 103/ul Normal 0.0-0.7 [facility] Comment on above: Performed By: #### C BC #### [facility] [address] [place] [address] Dr. Katrin Ceja Eosinophils/100 WBC (Bld) 1.7 % Normal 0.9-7.0 [facility] Comment on above: Performed By: #### C BC #### [facility] [address] [place] [address] Dr. Katrin Ceja Erythrocyte distribution width (RBC) [Ratio] 13.1 % Normal 11.0-15.0 [facility] Comment on above: Performed By: #### C BC #### [facility] [address] [place] [address] Dr. Katrin Ceja Hematocrit (Bld) [Volume fraction] 42.0 % Normal 36.0-48.0 [facility] Comment on above: Performed By: #### C BC #### [facility] [address] [place] [address] Dr. Katrin Ceja Hemoglobin (Bld) [Mass/Vol] 13.7 g/dL Normal 12.0-16.0 [facility] Comment on above: Performed By: #### C BC #### [facility] [address] [place] [address] Dr. Katrin Ceja IG # 0.07 10e3/ul Critically high 0.00-0.03 [facility] Comment on above: Performed By: #### C BC #### [facility] [address] [place] [address] Dr. Katrin Ceja IG % 0.6 % Critically high 0.0-0.5 [facility] Comment on above: Performed By: #### C BC #### [facility] [address] [place] [address] Dr. Katrin Ceja LYMPH # 2.9 103/ul Normal 1.2-3.8 [facility] Comment on above: Performed By: #### C BC #### [facility] [address] [place] [address] Dr. Katrin Ceja Lymphocytes/100 WBC (Bld) 27.1 % Normal 20.5-60.0 [facility] Comment on above: Performed By: #### C BC #### [facility] [address] [place] [address] Dr. Katirn Ceja MANUAL DIFF REQ NO Normal [facility] Comment on above: Performed By: #### C BC #### [facility] [address] [place] [address] Dr. Katrin Ceja MCH (RBC) [Entitic mass] 29.3 pg Normal 26.7-34.0 [facility] Comment on above: Performed By: #### C BC #### [facility] [address] [place] [address] Dr. Katrin Ceja MCHC (RBC) [Mass/Vol] 32.6 g/dL Normal 29.9-35.2 [facility] Comment on above: Performed By: #### C BC #### [facility] [address] [address] [address] Katrin Ceja MCV (RBC) [Entitic vol] 89.7 fL Normal 81.0-99.0 [facility] Comment on above: Performed By: #### C BC #### [facility] [address] [address] [address] Katrin Ceja MONO # 0.9 103/ul Critically high 0.3-0.8 [facility] Comment on above: Performed By: #### C BC #### [facility] [address] [address] [address] Katrin Ceja Monocytes/100 WBC (Bld) 8.2 % Normal 1.7-12.0 [facility] Comment on above: Performed By: #### C BC #### [facility] [address] [place] [address] Dr. Katrin Ceja NEUT # 6.7 103/ul Critically high 1.4-6.5 [facility] Comment on above: Performed By: #### C BC #### [facility] [address] [place] [address] Dr. Katrin Ceja Neutrophils/100 WBC (Bld) 62.1 % Normal 43.0-75.0 [facility] Comment on above: Performed By: #### C BC #### [facility] [address] [address] [address] Katrin Ceja Platelet mean volume (Bld) [Entitic vol] 9.7 fL Normal 9.5-13.5 [facility] Comment on above: Performed By: #### C BC #### [facility] [address] [address] [address] Katrin Ceja PLT 334 103/ul Normal 150-450 [facility] Comment on above: Performed By: #### C BC #### [facility] [address] [address] [address] Katrin Ceja RBC 4.68 106/ul Normal 4.20-5.40 [facility] Comment on above: Performed By: #### C BC #### [facility] [address] [address] [address] Katrin Ceja WBC 10.8 103/ul Normal 4.0-11.0 [facility] Comment on above: Performed By: #### C BC #### [facility] [address] [address] [address] Katrin Ceja GLYCOHEMOGLOBIN A1Con 2021 ADA RECOMMENDATION ADA THERAPEUTIC TARG ET 6.0 - 7.0 ACTION SUGGESTED > 7.0 Normal [facility] Comment on above: Performed By: #### C BC #### [facility] [address] [address] [address] Katrin Ceja Glucose [Mass/Vol] 105 mg/dL Normal [facility] Comment on above: Performed By: #### C BC #### [facility] [address] [place] [address] Dr. Katrin Ceja HbA1c (Bld) [Mass fraction] 5.3 % Normal <=6.0 [facility] Comment on above: Performed By: #### C BC #### [facility] [address] [place] [address] Dr. Katrin Ceja LIPID PROFILEon 07-18-2021 CHOL-HDL RATIO NORM SEE BELOW Normal [facility] Comment on above: Result Comment: 3.3 - 4.4 LOW RISK 4.4 - 7.1 AVERAGE RISK 7.1 - 11.0 MODERATE RISK >11.0 HIGH RISK Performed By: #### L IPID, CMP #### [facility] [address] [place] [address] Dr. Katrin Ceja Cholesterol [Mass/Vol] 302 mg/dL Critically high <=200 [facility] Comment on above: Performed By: #### L IPID, CMP #### [facility] [address] [place] [address] Dr. Katrin Ceja Cholesterol in HDL [Mass/Vol] 39 mg/dL Normal [facility] Comment on above: Performed By: #### L IPID, CMP #### [facility] [address] [place] [address] Dr. Katrin Ceja Cholesterol in LDL [Mass/Vol] 207.0 mg/dL Normal [facility] Comment on above: Performed By: #### L IPID, CMP #### [facility] [address] [address] [address] Katrin Ceja Cholesterol.total/Chol esterol in HDL [Mass ratio] 7.7 {ratio} Normal [facility] Comment on above: Performed By: #### L IPID, CMP #### [facility] [address] [address] [address] Katrin Ceja HDL NORMAL > or = 60 mg/dl - LO W CARDIOVASCULAR RISK <40 mg/dl - HIGH CARDIOVASCULAR RISK Normal [facility] Comment on above: Performed By: #### L IPID, CMP #### [facility] [address] [place] [address] Dr. Katrin Ceja LDL CALC NORMAL SEE BELOW Normal [facility] [place] [facility] Comment on above: Result Comment: <100 mg/dl OPTIMAL 100 - 129 mg/dl NEAR OR ABOVE OPTIMAL 130 - 159 mg/dl BORDERLINE HIGH 160 - 189 mg/dl HIGH >190 mg/dl VERY HIGH Performed By: #### L IPID, CMP #### [facility] [address] [place] [address] Dr. Katrin Ceja Triglyceride [Mass/Vol] 280 mg/dL Critically high <=150 [facility] Comment on above: Performed By: #### L IPID, CMP #### [facility] [address] [place] [address] Dr. Katrin Ceja VLDL CALC 56.0 mg/dL Normal [facility] Comment on above: Performed By: #### L IPID, CMP #### [facility] [address] [place] [address] Dr. Katrin Ceja PROF 14(COMP METB)on 022 Albumin [Mass/Vol] 3.5 g/dL Normal 3.5-5.0 [facility] Comment on above: Performed By: #### L IPID, CMP #### [facility] [address] [place] [address] Dr. Katrin Ceja Albumin/Globulin [Mass ratio] 0.7 {ratio} Normal [facility] Comment on above: Performed By: #### L IPID, CMP #### [facility] [address] [place] [address] Dr. Katrin Ceja ALP [Catalytic activity/Vol] 291 U/L Critically high 38-126 [facility] Comment on above: Performed By: #### L IPID, CMP #### [facility] [address] [place] [address] Dr. Katrin Ceja ALT [Catalytic activity/Vol] 174 U/L Critically high 9-52 [facility] Comment on above: Performed By: #### L IPID, CMP #### [facility] Laboratory [address] [place] [address] Dr. Katrin Ceja Anion gap [Moles/Vol] 15.3 mmol/L Normal [facility] Comment on above: Performed By: #### L IPID, CMP #### [facility] [address] [place] [address] Dr. Katrin Ceja AST [Catalytic activity/Vol] 97 U/L Critically high 14-36 [facility] Comment on above: Performed By: #### L IPID, CMP #### [facility] [address] [place] [address] Dr. Katrin Ceja Bilirubin [Mass/Vol] 0.4 mg/dL Normal 0.2-1.3 [facility] Comment on above: Performed By: #### L IPID, CMP #### [facility] [address] [place] [address] Dr. Katrin Ceja Calcium [Mass/Vol] 9.3 mg/dL Normal 8.4-10.2 [facility] Comment on above: Performed By: #### L IPID, CMP #### [facility] [address] [place] [address] Dr. Katrin Ceja Chloride [Moles/Vol] 99 mmol/L Normal 98-107 [facility] Comment on above: Performed By: #### L IPID, CMP #### [facility] [address] [place] [address] Dr. Katrin Ceja CO2 [Moles/Vol] 24.1 mmol/L Normal 22.0-30.0 [facility] Comment on above: Performed By: #### L IPID, CMP #### [facility] [address] [place] [address] Dr. Katrin Ceja Creatinine [Mass/Vol] 0.65 mg/dL Normal 0.52-1.04 [facility] Comment on above: Performed By: #### L IPID, CMP #### [facility] [address] [address] [address] Katrin Ceja EGFR-AF GUYANESE >60 Normal >=60 [facility] Comment on above: Performed By: #### L IPID, CMP #### [facility] [address] [place] [address] Dr. Katrin Ceja EGFR-NON AF GUYANESE >60 Normal >=60 [facility] Comment on above: Performed By: #### L IPID, CMP #### [facility] [address] [place] [address] Dr. Katrin Ceja Globulin (S) [Mass/Vol] 5.0 g/dL Normal [facility] Comment on above: Performed By: #### L IPID, CMP #### [facility] [address] [place] [address] Dr. Katrin Ceja Glucose [Mass/Vol] 86 mg/dL Normal 74-106 [facility] Comment on above: Performed By: #### L IPID, CMP #### [facility] [address] [place] [address] Dr. Katrin Ceja Potassium [Moles/Vol] 4.4 mmol/L Normal 3.4-5.0 [facility] Comment on above: Performed By: #### L IPID, CMP #### [facility] [address] [place] [address] Dr. Katrin Ceja Protein [Mass/Vol] 8.5 g/dL Critically high 6.1-8.2 [facility] Comment on above: Performed By: #### L IPID, CMP #### [facility] [address] [place] [address] Dr. Katrin Ceja Sodium [Moles/Vol] 134 mmol/L Critically low 137-145 [facility] Comment on above: Performed By: #### L IPID, CMP #### [facility] [address] [place] [address] Dr. Katrin Ceja Urea nitrogen [Mass/Vol] 8.0 mg/dL Normal 7.0-17.0 [facility] Comment on above: Performed By: #### L IPID, CMP #### [facility] [address] [place] [address] Dr. Katrin Ceja Urea nitrogen/Creatinine [Mass ratio] 12.3 mg/mg Normal [facility] Comment on above: Performed By: #### L IPID, CMP #### [facility] [address] [place] [address] Dr. Katrin Ceja AMYLASEon 05-01-2021 AMYL <30 Critically low 31-110 [facility] Comment on above: Performed By: #### P REG #### [facility] [address] [place] [address] Dr. Katrin Ceja CBC AUTO DIFFon 05-01-2021 BASO # 0.0 103/ul Normal 0.0-0.1 [facility] Comment on above: Performed By: #### L IPID, CMP #### [facility] [address] [place] [address] Dr. Katrin Ceja Basophils/100 WBC (Bld) 0.3 % Normal 0.2-2.0 [facility] Comment on above: Performed By: #### L IPID, CMP #### [facility] [address] [place] [address] Dr. Katrin Ceja EO # 0.1 103/ul Normal 0.0-0.7 [facility] Comment on above: Performed By: #### L IPID, CMP #### [facility] [address] [place] [address] Dr. Katrin Ceja Eosinophils/100 WBC (Bld) 0.4 % Critically low 0.9-7.0 [facility] Comment on above: Performed By: #### L IPID, CMP #### [facility] [address] [address] [address] Katrin Ceja Erythrocyte distribution width (RBC) [Ratio] 13.0 % Normal 11.0-15.0 [facility] Comment on above: Performed By: #### L IPID, CMP #### [facility] [address] [place] [address] Dr. Katrin Ceja Hematocrit (Bld) [Volume fraction] 37.7 % Normal 36.0-48.0 [facility] Comment on above: Performed By: #### L IPID, CMP #### [facility] [address] [place] [address] Dr. Katrin Ceja Hemoglobin (Bld) [Mass/Vol] 12.5 g/dL Normal 12.0-16.0 [facility] Comment on above: Performed By: #### L IPID, CMP #### [facility] [address] [place] [address] Dr. Katrin Ceja IG # 0.09 10e3/ul Critically high 0.00-0.03 [facility] Comment on above: Performed By: #### L IPID, CMP #### [facility] [address] [place] [address] Dr. Katrin Ceja IG % 0.6 % Critically high 0.0-0.5 [facility] Comment on above: Performed By: #### L IPID, CMP #### [facility] [address] [place] [address] Dr. Katrin Ceja LYMPH # 1.9 103/ul Normal 1.2-3.8 [facility] Comment on above: Performed By: #### L IPID, CMP #### [facility] [address] [place] [address] Dr. Katrin Ceja Lymphocytes/100 WBC (Bld) 12.1 % Critically low 20.5-60.0 [facility] Comment on above: Performed By: #### L IPID, CMP #### [facility] [address] [place] [address] Dr. Katrin Ceja MANUAL DIFF REQ NO Normal [facility] [place] [facility] Comment on above: Performed By: #### L IPID, CMP #### [facility] [address] [place] [address] Dr. Katrin Ceja MCH (RBC) [Entitic mass] 28.8 pg Normal 26.7-34.0 [facility] Comment on above: Performed By: #### L IPID, CMP #### [facility] [address] [place] [address] Dr. Katrin Ceja MCHC (RBC) [Mass/Vol] 33.2 g/dL Normal 29.9-35.2 [facility] Comment on above: Performed By: #### L IPID, CMP #### [facility] [address] [place] [address] Dr. Katrin Ceja MCV (RBC) [Entitic vol] 86.9 fL Normal 81.0-99.0 [facility] Comment on above: Performed By: #### L IPID, CMP #### [facility] [address] [place] [address] Dr. Katrin Ceja MONO # 1.1 103/ul Critically high 0.3-0.8 [facility] Comment on above: Performed By: #### L IPID, CMP #### [facility] [address] [place] [address] Dr. Katrin Ceja Monocytes/100 WBC (Bld) 7.1 % Normal 1.7-12.0 [facility] Comment on above: Performed By: #### L IPID, CMP #### [facility] [address] [place] [address] Dr. Katrin Ceja NEUT # 12.3 103/ul Critically high 1.4-6.5 [facility] Comment on above: Performed By: #### L IPID, CMP #### [facility] [address] [place] [address] Dr. Katrin Ceja Neutrophils/100 WBC (Bld) 79.5 % Critically high 43.0-75.0 [facility] Comment on above: Performed By: #### L IPID, CMP #### [facility] [address] [place] [address] Dr. Katrin Ceja Platelet mean volume (Bld) [Entitic vol] 8.7 fL Critically low 9.5-13.5 [facility] Comment on above: Performed By: #### L IPID, CMP #### [facility] [address] [address] [address] Katrin Ceja PLT 329 103/ul Normal 150-450 [facility] Comment on above: Performed By: #### L IPID, CMP #### [facility] [address] [address] [address] Katrin Ceja RBC 4.34 106/ul Normal 4.20-5.40 [facility] Comment on above: Performed By: #### L IPID, CMP #### [facility] [address] [address] [address] Katrin Ceja WBC 15.5 103/ul Critically high 4.0-11.0 [facility] Comment on above: Performed By: #### L IPID, CMP #### [facility] [address] [place] [address] ABD/PELV W CONon [...] by: HILDA RAHMAN Date: 2021-05-01 20:30 Normal [facility] LIPASEon 05-01-2021 Lipase [Catalytic activity/Vol] 64.0 U/L Normal 23.0-300.0 [facility] Comment on above: Performed By: #### P REG #### [facility] [address] [place] [address] Dr. Katrin Ceja LIVER PROFILEon 05-01-2021 Albumin [Mass/Vol] 3.3 g/dL Critically low 3.5-5.0 [facility] Comment on above: Performed By: #### L IPID, CMP #### [facility] [address] [place] [address] Dr. Katrin Ceja Albumin/Globulin [Mass ratio] 0.6 {ratio} Normal [facility] Comment on above: Performed By: #### L IPID, CMP #### [facility] [address] [place] [address] Dr. Katrin Ceja ALP [Catalytic activity/Vol] 412 U/L Critically high 38-126 [facility] Comment on above: Performed By: #### L IPID, CMP #### [facility] [address] [place] [address] Dr. Katrin Ceja ALT [Catalytic activity/Vol] 124 U/L Critically high 9-52 [facility] Comment on above: Performed By: #### L IPID, CMP #### [facility] [address] [place] [address] Dr. Katrin Ceja AST [Catalytic activity/Vol] 61 U/L Critically high 14-36 [facility] Comment on above: Performed By: #### L IPID, CMP #### [facility] [address] [place] [address] Dr. Katrin Ceja BILI, CONJUGATED 0.2 mg/dL Normal 0.0-0.3 [facility] Comment on above: Performed By: #### L IPID, CMP #### [facility] [address] [place] [address] Dr. Katrin Ceja Bilirubin [Mass/Vol] 0.4 mg/dL Normal 0.2-1.3 [facility] Comment on above: Performed By: #### L IPID, CMP #### [facility] [address] [place] [address] Dr. Katrin Ceja Globulin (S) [Mass/Vol] 5.1 g/dL Normal [facility] Comment on above: Performed By: #### L IPID, CMP #### [facility] [address] [place] [address] Dr. Katrin Ceja Protein [Mass/Vol] 8.4 g/dL Critically high 6.1-8.2 [facility] Comment on above: Performed By: #### L IPID, CMP #### [facility] [address] [place] [address] Dr. Katrin Ceja PREG HCG QUALon 05-01-2021 , QUAL Negative Normal NEGATIVE [facility] [place] [facility] Comment on above: Performed By: #### P REG #### [facility] [address] [place] [address] Dr. Katrin Ceja PROF CHEM 8 (BAS METB)on Anion gap [Moles/Vol] 17.1 mmol/L Normal [facility] Comment on above: Performed By: #### P REG #### [facility] [address] [address] [address] Katrin Ceja Calcium [Mass/Vol] 8.9 mg/dL Normal 8.4-10.2 [facility] Comment on above: Performed By: #### P REG #### [facility] [address] [place] [address] Dr. Katrin Ceja Chloride [Moles/Vol] 100 mmol/L Normal 98-107 [facility] Comment on above: Performed By: #### P REG #### [facility] [address] [address] [address] Katrin Ceja CO2 [Moles/Vol] 21.1 mmol/L Critically low 22.0-30.0 [facility] Comment on above: Performed By: #### P REG #### [facility] [address] [place] [address] Dr. Katrin Ceja Creatinine [Mass/Vol] 0.78 mg/dL Normal 0.52-1.04 [facility] Comment on above: Performed By: #### P REG #### [facility] [address] [place] [address] Dr. Katrin Ceja EGFR-AF GUYANESE >60 Normal >=[address] [facility] Comment on above: Performed By: #### P REG #### [facility] [address] [place] [address] Dr. Katrin Ceja EGFR-NON AF GUYANESE >60 Normal >=60 [facility] Comment on above: Performed By: #### P REG #### [facility] [address] [address] [address] Katrin Ceja Glucose [Mass/Vol] 97 mg/dL Normal 74-106 [facility] Comment on above: Performed By: #### P REG #### [facility] [address] [place] [address] Dr. Katrin Ceja Potassium [Moles/Vol] 4.2 mmol/L Normal 3.4-5.0 [facility] Comment on above: Performed By: #### P REG #### [facility] [address] [place] [address] Dr. Katrin Ceja Sodium [Moles/Vol] 134 mmol/L Critically low 137-145 [facility] Comment on above: Performed By: #### P REG #### [facility] [address] [place] [address] Dr. Katrin Ceja Urea nitrogen [Mass/Vol] 6.0 mg/dL Critically low 7.0-17.0 [facility] Comment on above: Performed By: #### P REG #### [facility] [address] [place] [address] Dr. Katrin Ceja Urea nitrogen/Creatinine [Mass ratio] 7.7 mg/mg Normal [facility] Comment on above: Performed By: #### P REG #### [facility] [address] [place] [address] Dr. Katrin Ceja CBC AUTO DIFFon 04-29-2021 BASO # 0.1 103/ul Normal 0.0-0.1 [facility] Comment on above: Performed By: #### L IPID, CMP #### [facility] [address] [place] [address] Dr. Katrin Ceja Basophils/100 WBC (Bld) 0.4 % Normal 0.2-2.0 [facility] Comment on above: Performed By: #### L IPID, CMP #### [facility] [address] [place] [address] Dr. Katrin Ceja EO # 0.2 103/ul Normal 0.0-0.7 [facility] Comment on above: Performed By: #### L IPID, CMP #### [facility] [address] [place] [address] Dr. Katrin Ceja Eosinophils/100 WBC (Bld) 1.7 % Normal 0.9-7.0 [facility] Comment on above: Performed By: #### L IPID, CMP #### [facility] [address] [place] [address] Dr. Katrin Ceja Erythrocyte distribution width (RBC) [Ratio] 12.9 % Normal 11.0-15.0 [facility] Comment on above: Performed By: #### L IPID, CMP #### [facility] [address] [place] [address] Dr. Katrin Ceja Hematocrit (Bld) [Volume fraction] 39.0 % Normal 36.0-48.0 [facility] Comment on above: Performed By: #### L IPID, CMP #### [facility] [address] [place] [address] Dr. Katrin Ceja Hemoglobin (Bld) [Mass/Vol] 12.9 g/dL Normal 12.0-16.0 [facility] Comment on above: Performed By: #### L IPID, CMP #### [facility] [address] [place] [address] Dr. Katrin Ceja IG # 0.08 10e3/ul Critically high 0.00-0.03 [facility] Comment on above: Performed By: #### L IPID, CMP #### [facility] [address] [place] [address] Dr. Katrin Ceja IG % 0.6 % Critically high 0.0-0.5 [facility] Comment on above: Performed By: #### L IPID, CMP #### [facility] [address] [place] [address] Dr. Katrin Ceja LYMPH # 3.2 103/ul Normal 1.2-3.8 [facility] Comment on above: Performed By: #### L IPID, CMP #### [facility] [address] [place] [address] Dr. Katrin Ceja Lymphocytes/100 WBC (Bld) 24.4 % Normal 20.5-60.0 [facility] Comment on above: Performed By: #### L IPID, CMP #### [facility] [address] [place] [address] Dr. Katrin Ceja MANUAL DIFF REQ NO Normal [facility] Comment on above: Performed By: #### L IPID, CMP #### [facility] [address] [place] [address] Dr. Katrin Ceja MCH (RBC) [Entitic mass] 29.1 pg Normal 26.7-34.0 [facility] Comment on above: Performed By: #### L IPID, CMP #### [facility] [address] [address] [address] Katrin Ceja MCHC (RBC) [Mass/Vol] 33.1 g/dL Normal 29.9-35.2 [facility] Comment on above: Performed By: #### L IPID, CMP #### [facility] [address] [address] [address] Katrin Ceja MCV (RBC) [Entitic vol] 88.0 fL Normal 81.0-99.0 [facility] Comment on above: Performed By: #### L IPID, CMP #### [facility] [address] [address] [address] Katrin Ceja MONO # 1.2 103/ul Critically high 0.3-0.8 [facility] Comment on above: Performed By: #### L IPID, CMP #### [facility] [address] [place] [address] Dr. Katrin Ceja Monocytes/100 WBC (Bld) 9.2 % Normal 1.7-12.0 [facility] Comment on above: Performed By: #### L IPID, CMP #### [facility] [address] [address] [address] Katrin Ceja NEUT # 8.3 103/ul Critically high 1.4-6.5 [facility] Comment on above: Performed By: #### L IPID, CMP #### [facility] [address] [address] [address] Katrin Ceja Neutrophils/100 WBC (Bld) 63.7 % Normal 43.0-75.0 [facility] Comment on above: Performed By: #### L IPID, CMP #### [facility] [address] [address] [address] Katrin Ceja Platelet mean volume (Bld) [Entitic vol] 9.2 fL Critically low 9.5-13.5 [facility] Comment on above: Performed By: #### L IPID, CMP #### [facility] [address] [address] [address] Katrin Ceja PLT 384 103/ul Normal 150-450 [facility] Comment on above: Performed By: #### L IPID, CMP #### [facility] [address] [place], [place] [address] Dr. Katrin Ceja RBC 4.43 106/ul Normal 4.20-5.40 [facility] Comment on above: Performed By: #### L IPID, CMP #### [facility] [address] [place], [place] [address] Dr. Katrin Ceja WBC 13.1 103/ul Critically high 4.0-11.0 [facility] Comment on above: Performed By: #### L IPID, CMP #### [facility] [address] [place], [place] [address] ABD/PELV W CONon [...] by: Lorenzo LAN Date: 2021-04-29 02:49 Normal [facility] LACTATE/LACTIC ACIDon 2020 Lactate [Moles/Vol] 1.2 mmol/L Normal 0.7-2.0 [facility] Comment on above: Performed By: #### C BC #### [facility] [address] [place] [address] Dr. Katrin Ceja PROF 14(COMP METB)on 021 Albumin [Mass/Vol] 3.4 g/dL Critically low 3.5-5.0 [facility] Comment on above: Performed By: #### C BC #### [facility] [address] [place] [address] Dr. Katrin Ceja Albumin/Globulin [Mass ratio] 0.7 {ratio} Normal [facility] Comment on above: Performed By: #### C BC #### [facility] [address] [place] [address] Dr. Katrin Ceja ALP [Catalytic activity/Vol] 359 U/L Critically high 38-126 [facility] Comment on above: Performed By: #### C BC #### [facility] [address] [place] [address] Dr. Katrin Ceja ALT [Catalytic activity/Vol] 193 U/L Critically high 9-52 [facility] Comment on above: Performed By: #### C BC #### [facility] [address] [place] [address] Dr. Katrin Ceja Anion gap [Moles/Vol] 13.3 mmol/L Normal [facility] Comment on above: Performed By: #### C BC #### [facility] [address] [address] [address] Katrin Ceja AST [Catalytic activity/Vol] 115 U/L Critically high 14-36 [facility] Comment on above: Performed By: #### C BC #### [facility] [address] [address] [address] Katrin Ceja Bilirubin [Mass/Vol] 0.5 mg/dL Normal 0.2-1.3 [facility] Comment on above: Performed By: #### C BC #### [facility] [address] [address] [address] Katrin Ceja Calcium [Mass/Vol] 9.5 mg/dL Normal 8.4-10.2 [facility] Comment on above: Performed By: #### C BC #### [facility] [address] [place] [address] Dr. Katrin Ceja Chloride [Moles/Vol] 101 mmol/L Normal 98-107 [facility] Comment on above: Performed By: #### C BC #### [facility] [address] [address] [address] Katrin Ceja CO2 [Moles/Vol] 23.7 mmol/L Normal 22.0-30.[address] [facility] Comment on above: Performed By: #### C BC #### [facility] [address] [place] [address] Dr. Katrin Ceja Creatinine [Mass/Vol] 0.83 mg/dL Normal 0.52-1.04 [facility] Comment on above: Performed By: #### C BC #### [facility] [address] [place] [address] Dr. Katrin Ceja EGFR-AF GUYANESE >60 Normal >=[address] [facility] Comment on above: Performed By: #### C BC #### [facility] [address] [place] [address] Dr. Katrin Ceja EGFR-NON AF GUYANESE >60 Normal >=60 [facility] Comment on above: Performed By: #### C BC #### [facility] [address] [place] [address] Dr. Katrin Ceja Globulin (S) [Mass/Vol] 5.1 g/dL Normal [facility] Comment on above: Performed By: #### C BC #### [facility] [address] [place] [address] Dr. Katrin Ceja Glucose [Mass/Vol] 102 mg/dL Normal 74-106 [facility] Comment on above: Performed By: #### C BC #### [facility] [id number] Katrin Ceja Potassium [Moles/Vol] 4.0 mmol/L Normal 3.4-5.0 [facility] Comment on above: Performed By: #### C BC #### [facility] [address] [place] [address] Dr. Katrin Ceja Protein [Mass/Vol] 8.5 g/dL Critically high 6.1-8.2 [facility] Comment on above: Performed By: #### C BC #### [facility] [address] [place] [address] Dr. Katrin Ceja Sodium [Moles/Vol] 134 mmol/L Critically low 137-145 [facility] Comment on above: Performed By: #### C BC #### [facility] [address] [place] [address] Dr. Katrin Ceja Urea nitrogen [Mass/Vol] 6.0 mg/dL Critically low 7.0-17.0 [facility] [facility] Comment on above: Performed By: #### C BC #### [facility] [address] [place], [place] [address] Dr. Katrin Ceja Urea nitrogen/Creatinine [Mass ratio] 7.2 mg/mg Normal [facility] Comment on above: Performed By: #### C BC #### [facility] [address] [place], [place] [address] Dr. Katrin Ceja XR CHEST 1 Von [...] HILDA GU Date: 2021-04-28 23:45 Normal [facility] Acetaminophen (Tylenol) Leve kit 03-22-2019 Acetaminophen [Mass/Vol] <10 Normal 10.0-30.0 [facility] Comment on above: Performed By: #### 1 4581-3, 65779-8, 74332-0, 72678-8g8, 63291-2, 66435-0 #### [facility] [address] [place], [place] Alcohol (Ethanol) Levelon Ethanol [Mass/Vol] mg/dL Normal 0.00-0.00 [facility] Comment on above: Performed By: #### 1 4581-3, 46102-2, 51364-1, 50667-2r6, 49766-1, 00124-1 #### [address] CBC with Differentialon Basophils (Bld) [#/Vol] 0.10 thou/mcL Normal 0.00-0.20 [facility] Comment on above: Performed By: #### 5 7021-8 #### [address] Basophils/100 WBC (Bld) 0.7 % Normal 0.0-2.0 [facility] Comment on above: Performed By: #### 5 7021-8 #### [facility] [address] [place], [place] Eosinophils (Bld) [#/Vol] 0.40 thou/mcL Normal 0.00-0.70 [facility] Comment on above: Performed By: #### 5 7021-8 #### [facility] [address] [place] [address] Eosinophils/100 WBC (Bld) 3.7 % Normal 0.0-7.0 [facility] Comment on above: Performed By: #### 5 7021-8 #### [facility] [address] [place], [place] Erythrocyte distribution width (RBC) [Entitic vol] 12.6 % Normal 11.0-14.8 [facility] Comment on above: Performed By: #### 5 7021-8 #### [facility] [address] [place] Hematocrit (Bld) [Volume fraction] 38.5 % Normal 35.0-45.0 [facility] Comment on above: Performed By: #### 5 7021-8 #### [facility] [address], [place] Hemoglobin (Bld) [Mass/Vol] 13.3 g/dL Normal 12.0-16.0 [facility] Comment on above: Performed By: #### 5 7021-8 #### [address] Lymphocytes (Bld) [#/Vol] 3.10 thou/mcL Normal 1.00-4.80 [facility] Comment on above: Performed By: #### 5 7021-8 #### [facility] [address] Lymphocytes/100 WBC (Bld) 30.1 % Normal 22.0-44.0 [facility] Comment on above: Performed By: #### 5 7021-8 #### [facility] [address] [place] MCH (RBC) [Entitic mass] 30.8 Picograms Normal 27.0-34.0 [facility] Comment on above: Performed By: #### 5 7021-8 #### [facility] [address] [place] MCHC (RBC) [Mass/Vol] 34.7 g/dL Normal 32.0-36.0 [facility] Comment on above: Performed By: #### 5 7021-8 #### [facility] [address], [place] MCV (RBC) [Entitic vol] 88.8 fL Normal 80.0-97.0 [facility] Comment on above: Performed By: #### 5 7021-8 #### [facility] [address], [place] Monocytes (Bld) [#/Vol] 1.10 thou/mcL High 0.00-0.90 [facility] Comment on above: Performed By: #### 5 7021-8 #### [facility] [address] [place], [place] Monocytes/100 WBC (Bld) 10.4 % Normal 0.0-12.0 [facility] Comment on above: Performed By: #### 5 7021-8 #### [facility] [address] Neutrophils (Bld) [#/Vol] 5.60 thou/mcL Normal 1.80-7.70 [facility] Comment on above: Performed By: #### 7021-8 #### [facility] [address] [place], [place] Neutrophils/100 WBC (Bld) 55.1 % Normal 40.0-70.0 [facility] Comment on above: Performed By: #### 5 7021-8 #### [facility] [address] [place] Platelet mean volume (Bld) [Entitic vol] 7.5 fL Normal 6.2-12.1 [facility] Comment on above: Performed By: #### 5 7021-8 #### [facility] [address] Platelets (Bld) [#/Vol] 280 thou/mcL Normal 142-424 [facility] Comment on above: Performed By: #### 5 7021-8 #### [facility] [address] RBC (Bld) [#/Vol] 4.33 million/mcL Normal 3.80-5.10 [facility] Comment on above: Performed By: #### 5 7021-8 #### [facility] [address] WBC (Bld) [#/Vol] 10.2 thou/mcL Normal 4.6-10.2 [facility] Comment on above: Performed By: #### 5 7021-8 #### [facility] [address] Comprehensive Metabolic Pane kit 03-22-2019 Albumin [Mass/Vol] 4.2 g/dL Normal 3.5-4.8 [facility] Comment on above: Performed By: #### 1 4581-3, 65676-4, 78168-4, 51457-9y0, 24737-9, 12943-2 #### [facility] [address] [place], [place] ALP [Catalytic activity/Vol] 96 Units/L High 32-91 [facility] Comment on above: Performed By: #### 1 4581-3, 77662-2, 63868-1, 70641-6v2, 08575-9, 36596-6 #### [place] [address] [place], [place] ALT [Catalytic activity/Vol] 25 Units/L Normal 14-63 [facility] Comment on above: Performed By: #### 1 4581-3, 31771-3, 55702-1, 87315-3h7, 87227-7, 21224-1 #### [facility] [address] Anion gap [Moles/Vol] 9.0 mmol/L Normal 6.0-18.0 [facility] Comment on above: Performed By: #### 1 4581-3, 38112-3, 68742-5, 19682-2p0, 28753-2, 23628-1 #### [facility] [address] [place] AST [Catalytic activity/Vol] 24 Units/L Normal 15-41 [facility] Comment on above: Performed By: #### 1 4581-3, 56045-9, 17059-7, 42178-5k9, 29106-4, 72934-9 #### [facility] [address] Bilirubin [Mass/Vol] 0.5 mg/dL Normal 0.3-1.2 [facility] Comment on above: Performed By: #### 1 4581-3, 57495-5, 89125-1, 41538-3t4, 01993-5, 56744-3 #### [facility] [address] Calcium [Mass/Vol] 8.9 mg/dL Normal 8.9-10.3 [facility] Comment on above: Performed By: #### 1 4581-3, 25046-8, 38740-0, 48119-0g9, 48689-6, 58388-0 #### [facility] [address] Chloride [Moles/Vol] 107 mmol/L Normal 98-107 [facility] Comment on above: Performed By: #### 1 4581-3, 58771-5, 99477-1, 63154-9l8, 94036-6, 11586-1 #### [facility] [address] CO2 [Moles/Vol] 23 mmol/L Normal 22-32 [facility] Comment on above: Performed By: #### 1 4581-3, 22187-6, 21645-1, 50761-9f4, 20603-6, 36958-4 #### [facility] [address] Creatinine [Mass/Vol] 0.68 mg/dL Normal 0.60-1.30 [facility] Comment on above: Performed By: #### 1 4581-3, 44203-3, 34841-2, 33264-1b4, 98009-9, 24281-2 #### [facility] [address] Glucose [Mass/Vol] 90 mg/dL Normal 70-99 [facility] Comment on above: Result Comment: U pdated ADA Reference Range A normal fasting glucose concentration is less than 100 mg/dL. An impaired fasting glucose concentration is 100-125 mg/dL. A provisional diagnosis of diabetes mellitus can be made when a fasting glucose concentration is greater than 125 mg/dL. Performed By: #### 1 4581-3, 46339-8, 81421-4, 99388-9z4, 76868-1, 91539-4 #### [facility] [address], [place] Potassium [Moles/Vol] 3.4 mmol/L Low 3.6-5.1 [facility] Comment on above: Performed By: #### 1 4581-3, 99348-5, 08961-4, 53306-1i0, 57375-4, 73157-2 #### [facility] [address] Protein [Mass/Vol] 7.4 g/dL Normal 6.1-7.9 [facility] Comment on above: Performed By: #### 1 4581-3, 30924-2, 43492-7, 37029-9c8, 41974-2, 45665-8 #### [facility] [address] Sodium [Moles/Vol] 139 mmol/L Normal 136-145 [facility] Comment on above: Performed By: #### 1 4581-3, 86448-2, 35737-8, 06195-5l2, 03245-5, 53174-0 #### [facility] [address] Urea nitrogen (BldV) [Mass/Vol] 17 mg/dL Normal 8-20 [facility] Comment on above: Performed By: #### 1 4581-3, 25250-7, 93523-9, 93596-3r0, 53500-7, 48704-3 #### [facility] [address] Drug Abuse Screen 8 Urineon 03-22-2019 Barbiturates Screen Ql (U) Negative Normal [facility] Comment on above: Performed By: #### 1 2286-1 #### [facility] [address] Amphetamines Ql (U) Positive Abnormal [facility] Comment on above: Result Comment: Conf irmatory testing available upon request. Performed By: #### 1 2286-1 #### [facility] [address] [place], [place] Benzodiazepines cutoff Screen (U) [Mass/Vol] Negative Normal [facility] Comment on above: Performed By: #### 1 2286-1 #### [facility] [address] [place] Cocaine Ql (U) Positive Abnormal [facility] Comment on above: Result Comment: Conf irmatory testing available upon request. Performed By: #### 1 2286-1 #### [address] Interpretation and review of laboratory results Negative Normal [facility] Comment on above: Performed By: #### 1 2286-1 #### [facility] [address] [place] [address] Methadone Screen Ql (U) Negative Normal NEGATIVE-N EGATIVE [facility] Comment on above: Performed By: #### 1 2286-1 #### [facility] [address] Opiates Screen Ql (U) Negative Normal [facility] Comment on above: Result Comment: [...] ONLY. Performed By: #### 1 2286-1 #### [facility] [address] Tetrahydrocannabinol Screen Ql (U) Positive Abnormal [facility] Comment on above: Result Comment: Conf irmatory testing available upon request. Performed By: #### 1 2286-1 #### [address] ED Pat Zain 03-22-2019 ED [facility] [address] [place] [address] Emergency Department Discharge Instructions JENNIFER AGUILLON , [...] [facility] Name JENNIFER AGUILLON MRN (COL)-[id number] PLEASE READ THE FOLLOWING REGARDING YOUR MEDICATIONS [...] doses are changed, or new medications (including ojgx-bdo-zycequl products) are added. If you have any [...] UNTIL YOU TALK TO YOUR DOCTOR None [address] [address] Emergency Department Discharge Instructions Name: JENNIFER AGUILLON Current Date: 03/22/2019 19:32:22 : 1995 Primary Physician: Physician, No PCP We would like to thank you for choosing [facility] for your emergency medical needs. [...] and the health of those around you. [facility] offers many resources to help with smoking cessation. Call the [place] Tobacco Quit Line at 1-946-HZWBNOW ( ). High blood pressure: Your screening [...] deadly infections. Discuss this with your child's insurance claims analyst, or Public Health Department. Your family practice doctor can determine if you need pneumonia or flu vaccine. [facility] can be reached at . Substance Abuse Program: Concerns with addiction to alcohol, benzodiazepines (Ativan or Xanax) and Opiates (Heroin, Percocet, OxyContin, Methadone or Fentanyl)? [facility] offers an inpatient Substance Abuse Program to help treat the symptoms associated with medical detoxification of addictive substances. The new program offers care for non- adults (18 and older) looking to break the chain to addictive chemicals. The Substance Abuse Program is a voluntary inpatient admission and it starts with a pre-screening phone call to a adoption social worker. During the call, goals and objectives for recovery and how the patient will transition to outpatient care will be established. Please call [phone] to get help today. Domestic Violence: If you are a victim of domestic violence (physical, verbal, or emotional), you are not alone. Discuss this with your physician or a friend and call the [place] Domestic Violence Hotline or [place] Domestic Violence Hotline for assistance and support. [...] call the Physician Referral Line at (719) 637-VSRU (0950). Suicide Hotline: Your mental and emotional well-being is important. If you are in a mental health crisis or are having thoughts of suicide, please call the nationwide suicide hotline, anytime day or night, at 8-753-750-XXET (8368). Community Airplane First Officer: You may be contacted by your local fire department for a follow up visit from a community carpenter form. The community carpenter form can help with a home safety check; follow up care, and general home care management. Pharmacy Information: Below is a list of 24 hour pharmacies that we are aware of. We suggest that you call the specific pharmacy for their hours before traveling to a location. Hours may vary on holidays. [facility] [address], [place] [phone] [address] [place], [place] [address] [phone] [address] [place], [place] [address] [phone] [address] [place], [place] [phone] [address] [place], [place] [phone] [address] [facility] [place], [place] [phone] [address] [place], [place] [phone] Take all medications as directed. If you need prescription assistance, contact the following agencies: ?? [facility] for Prescription Assistance at or www.pparx.org ?? [facility] Rx at or www.Exari Systemsstrx.org ?? www.Baike.comRx.Gigaclear is a site with many valuable coupons [...] Patient Signature Date Time Provider Signature Normal [facility] GFRaaon 03-22-2019 GFR/1.73 sq M predicted among blacks MDRD (S/P/Bld) [Vol rate/Area] mL/min/{1.73_m2} Normal [facility] Comment on above: Result Comment: The MDRD equation has not been validated for those over 70 years, women, patients with serious co-morbid conditions, or with extremes of body size, muscle mass of nutritional status. Performed By: #### 1 4581-3, 62649-3, 52316-2, 90431-3o1, 84352-5, 63379-4 #### [facility] [address] [place], [place] GFRbbon 03-22-2019 GFR/1.73 sq M predicted among non-blacks MDRD (S/P/Bld) [Vol rate/Area] mL/min/{1.73_m2} Normal [facility] Comment on above: Performed By: #### 1 4581-3, 17033-1, 24347-0, 89509-1n0, 56692-3, 25808-9 #### [facility] [address] [place] Test Urineon 03-22 HCG ( test) Ql (U) Negative Normal [facility] Comment on above: Performed By: #### 2 106-3 #### [facility], [address] [place] [address] Salicylate Levelon 9 Salicylates [Mass/Vol] mg/dL Normal 2.8-30.0 Mo [facility] Comment on above: Performed By: #### 1 4581-3, 96533-5, 28906-1, 08999-8k1, 52990-5, 66186-3 #### [address] Medication Managementon 10-0 Medication Management [id number]#1.00OTGTIF F Normal [facility] ED Clinical Summaryon 2017 ED Clinical Summary [facility] [address] [place], [place] [id number] ed Clinical SummaryPERSON INFORMATIONName: JENNIFER AGUILLON Age: 22 Years Sex: FEMALEDOB: [birth year] MRN: Acct#:Visit Reason: Dental pain; Dental pain; DENTAL PAIN Arrival: 04/11/18 20:21:00 Discharge: 04/11/18 20:55:00LOS: 000 00:34 Check In: 04/11/18 20:21:00 Checkout:04/11/18 20:55:00[address] [facility] [address]OLD: SOLOMON WATTSPROVIRANDEE INFORMATIONProvider Role Assigned UnassignedAlistair Max MD ED [...] 04/11/18 20:29:00.Dental caries, dental painHistory of Present Kbytezj89-dghg-rbj white female presents to the emergency room [...] her poor dental state..Impression and PlanDiagnosisDental caries (DPO82-UQ K02.9, Discharge, Medical)Pain, dental (XNX00-ZG K08.89, Discharge, Medical)PlanCondition: Improved, Stable.Disposition: Discharged: to home.Prescriptions: Launch prescriptionsPharmacy:tra MADol 50 mg oral tablet (Prescribe): 50 mg = 1 tab(s), PO, q4hr, PRN: as needed for pain, 12 tab(s), 0 Refill(s)amoxicillin 500 mg oral capsule (Prescribe): 1,000 mg = 2 cap(s), PO, BID, 40 cap(s), 0 Refill(s).Patient was given the following educational materials: Dental Pain, Gxah-yj-Lgxt, Dental Caries, Adult, Xiaj-qe-Dhrv, Dental Caries, Adult, Vpje-ju-Sxne, Dental Pain, Cbwj-ei-Ebzo.Follow up with: SOLOMON WATTS Within 3 to 5 days.Counseled: Patient, Regarding diagnosis, Regarding treatment plan, Regarding prescription, Patient indicated understanding of instructions.DISCHARGE INFORMATION:Discharge Disposition: HomeDischarge Location: HomePATIENT EDUCATION INFORMATIONInstructions: Dental Caries, Adult, Cxvi-ey-Herm; Dental Pain, Xddb-jd-SdveBugewc-Up:Chelsey h: Address: When:[address] [address] Business (1) Within 3 to 5 daysDIAGNOSIS:Dental caries; Dental pain; Pain, dentalPatient Understands: Yes - Patient/family/caregiver verbalizes understanding of instructions givenComment: [facility] ED Note - Physicianon 2017 ED Note - Physician Patient: DOMINIC AGUILLON : 22 years Sex: FEMALE : [birth year]Associated Diagnoses: Dental caries; Pain, dentalAuthor: Alistair Max MDBasikeyla InformationTime seen: Date & time 04/11/18 20:29:00.Dental caries, dental painHistory of Present Knewwxc67-xpyj-zvb white female presents to the emergency room [...] her poor dental state..Impression and PlanDiagnosisDental caries (HKZ58-MY K02.9, Discharge, Medical)Pain, dental (KSC09-WJ K08.89, Discharge, Medical)PlanCondition: Improved, Stable.Disposition: Discharged: to home.Prescriptions: Launch prescriptionsPharmacy:tra MADol 50 mg oral tablet (Prescribe): 50 mg = 1 tab(s), PO, q4hr, PRN: as needed for pain, 12 tab(s), 0 Refill(s)amoxicillin 500 mg oral capsule (Prescribe): 1,000 mg = 2 cap(s), PO, BID, 40 cap(s), 0 Refill(s).Patient was given the following educational materials: Dental Pain, Ywnn-wv-Zkiz, Dental Caries, Adult, Tzfn-my-Agme, Dental Caries, Adult, Qhze-cx-Ifii, Dental Pain, Uubu-yh-Ydxc.Follow up with: SOLOMON WATTS Within 3 to 5 days.Counseled: Patient, Regarding diagnosis, Regarding treatment plan, Regarding prescription, Patient indicated understanding of instructions.[Cristianoa diana Signed on: 04/11/2018 20:42 EDT] Alistair Salomon MD[Verified on: 04/11/2018 20:42 EDT] Alistair Salomon MD [facility] ED Patient Education Noteon 04-11-2018 ED [...] mouth and teeth. This keeps them healthy.? [place] your teeth 2 times a day. Use toothpaste with fluoride in it.? Floss your teeth once a day.? If your dentist prescribed an antibiotic medicine to treat an infection, take it as told. Do not stop taking the antibiotic even if your condition gets better.? Keep all follow-up visits as told by your dentist. This is important. This includes all cleanings.Preventing dental caries? [place] your teeth every morning and night. Use [...] Reviewed: 03/17/2017Kenny Interactive Patient Education ? 2017 [employer].Dental PainDental pain may be caused by [...] Reviewed: 06/27/2015K[employer] Interactive Patient Education ? 2018 [employer]. [facility] ED Patient Summaryon 018 ED Patient Summary [facility] [address] [place] [address] pATIENT DISCHARGE INSTRUCTIONSPatient InformationName: JENNIFER AGUILLON Age: 22 YearsDate of : [birth year]MRN: [id number] For Visit: Dental pain; Dental pain; DENTAL PAINArrival Time: 04/11/18 20:21:00Phone: Primary Care Physician: SOLOMON WATTSAttending Physician: Alistair Max MDComment:Visit Diagnosis:Diagnoses This Visit Dental caries (K02.9) Dental pain (K08.8) Dental pain ([id number]) Dental pain ([id number]) Pain, dental (K08.89)If you received any narcotics, [...] sign any legal documentsWith: Address: When:SOLOMON WATTS [address] [place] [address] Business (1) Within 3 to 5 daysMedication Information:The exam and treatment you received today in the [facility] Emergency Department were for an urgent problem and are not intended as complete care. It is important for you to follow up with a doctor, nurse practitioner, or physician?s golf player assistant for ongoing care. If your symptoms [...] number so we can reach you if necessary.[facility] has provided you with a complete list of medications post discharge. Please inform your cancer registrar/provider of your visit and for further instruction [...] mouth and teeth. This keeps them healthy.? [place] your teeth 2 times a day. Use toothpaste with fluoride in it.? Floss your teeth once a day.? If your dentist prescribed an antibiotic medicine to treat an infection, take it as told. Do not stop taking the antibiotic even if your condition gets better.? Keep all follow-up visits as told by your dentist. This is important. This includes all cleanings.Preventing dental caries? [place] your teeth every morning and night. Use [...] Reviewed: 03/17/2017Kenny Interactive Patient Education ? 2017 [employer].Dental PainDental pain may be caused by many [...] Released: 12/17/2008 Document Revised: 12/06/2016 Document Reviewed: 06/27/2015ElsevStylenda Interactive Patient Education ? 2018 [employer]. Viruses or BacteriaWhat?s got you sick?Antibiotics only [...] Disease Control and Prevention March 2014 Normal [facility] Vital Signs Date Time Vital Sign Value Performing Clinician Facility 10-07-2024 12:18-0400 Body height 167.6 cm Jerry Carrera PA-C Work Phone: [facility] Comment on above: stated 10-07-2024 12:18-0400 Body mass index (BMI) [Ratio] 34.38 kg/m2 Jerry Verhoff PA-C Work Phone: [facility] 10-07-2024 12:18-0400 Body weight 96.62 kg Jerry Verhoff PA-C Work Phone: [facility] 10-07-2024 12:18-0400 Diastolic blood pressure 84 mm[Hg] Jerry Verhoff PA-C Work Phone: [facility] 10-07-2024 12:18-0400 Heart rate 99 /min Jerry Verhoff PA-C Work Phone: [facility] 10-07-2024 12:18-0400 Respiratory rate 16 /min Jerry Verhoff PA-C Work Phone: [facility] 10-07-2024 12:18-0400 SaO2% (BldA) [Mass fraction] 99 % Jerry Verhoff PA-C Work Phone: [facility] 10-07-2024 12:18-0400 Systolic blood pressure 134 mm[Hg] Jerry Verhoff PA-C Work Phone: [facility] 09-24-2024 08:56-0400 Body height 167.6 cm Mandie Wiggins DPM Work Phone: [facility] 09-24-2024 08:56-0400 Body mass index (BMI) [Ratio] 33.73 kg/m2 Mandie Minesh DPM Work Phone: [facility] 09-24-2024 08:56-0400 Body weight 94.8 kg Mandie Wiggins DPM Work Phone: [facility] 05-28-2024 14:27-0500 Body height 167.6 cm Radha Santoyo DO Work Phone: [facility] 05-28-2024 14:27-0500 Body mass index (BMI) [Ratio] 34.49 kg/m2 Radha Santoyo DO Work Phone: [facility] 05-28-2024 14:27-0500 Body weight 96.93 kg Radha Santoyo DO Work Phone: [facility] 05-28-2024 14:27-0500 Diastolic blood pressure 83 mm[Hg] Radha Santoyo DO Work Phone: [facility] 05-28-2024 14:27-0500 Heart rate 96 /min Radha Santoyo DO Work Phone: [facility] 05-28-2024 14:27-0500 SaO2% (BldA) [Mass fraction] 96 % Radha Santoyo DO Work Phone: [facility] 05-28-2024 14:27-0500 Systolic blood pressure 136 mm[Hg] Radha Santoyo DO Work Phone: [facility] 05-19-2024 09:42-0500 Body mass index (BMI) [Ratio] 35.02 kg/m2 Kenia Washington E [employer] Work Phone: [facility] 05-19-2024 09:42-0500 Body weight 98.43 kg Kenia Washington E [employer] Work Phone: [facility] 05-19-2024 09:42-0500 Diastolic blood pressure 74 mm[Hg] Kenia Washington E [employer] Work Phone: [facility] 05-19-2024 09:42-0500 Systolic blood pressure 128 mm[Hg] Kenia Washington E [employer] Work Phone: [facility] 04-01-2024 11:12-0400 Body height 167.6 cm Kenia Washington E [employer] Work Phone: [facility] 04-01-2024 11:12-0400 Body mass index (BMI) [Ratio] 34.02 kg/m2 Kenia Washington E [employer] Work Phone: [facility] 04-01-2024 11:12-0400 Body weight 95.62 kg Kenia Washington E [employer]EL[employer] Work Phone: [facility] 04-01-2024 11:12-0400 Diastolic blood pressure 82 mm[Hg] Kenia Washington E [employer]EL[employer] Work Phone: [facility] 04-01-2024 11:12-0400 Heart rate 95 /min Kenia Washington E [employer] Work Phone: [facility] 04-01-2024 11:12-0400 SaO2% (BldA) [Mass fraction] 98 % Kenia Washington E [employer] Work Phone: [facility] 04-01-2024 11:12-0400 Systolic blood pressure 138 mm[Hg] Kenia Washington E [employer] Work Phone: [facility] 03-19-2024 00:22-0400 Diastolic blood pressure 81 mm[Hg] [facility] 03-19-2024 00:22-0400 Heart rate 97 /min [facility] 03-19-2024 00:22-0400 Respiratory rate 18 /min [facility] 03-19-2024 00:22-0400 SaO2% (BldA) [Mass fraction] 98 % [facility] 03-19-2024 00:22-0400 Systolic blood pressure 113 mm[Hg] [facility] 03-18-2024 21:56-0400 Body temperature 98.2 [degF] [facility] 03-18-2024 21:54-0400 Body height 167.64 cm [facility] 03-18-2024 21:54-0400 Body weight 97.52 kg [facility] 03-05-2024 12:39-0400 Body height 167.64 cm [facility] 03-05-2024 12:39-0400 Body mass index (BMI) [Ratio] 37.1 kg/m2 [facility] 03-05-2024 12:39-0400 Body temperature 97.6 [degF] [facility] 03-05-2024 12:39-0400 Body weight 104.32 kg [facility] 03-05-2024 12:39-0400 Diastolic blood pressure 84 mm[Hg] [facility] 03-05-2024 12:39-0400 Heart rate 90 /min [facility] 03-05-2024 12:39-0400 Respiratory rate 18 /min [facility] 03-05-2024 12:39-0400 SaO2% (BldA) [Mass fraction] 99 % [facility] 03-05-2024 12:39-0400 Systolic blood pressure 118 mm[Hg] [facility] 02-27-2024 13:41-0400 Body mass index (BMI) [Ratio] 34.86 kg/m2 Kenia Washington E [employer]ELOPER Work Phone: [facility] 02-27-2024 13:41-0400 Body weight 97.98 kg Kenia Washington E [employer]ER[employer] DEVELOPER Work Phone: [facility] 02-27-2024 13:41-0400 Diastolic blood pressure 83 mm[Hg] Kenia Washington E [employer]ER[employer] DEVELOPER Work Phone: [facility] 02-27-2024 13:41-0400 Heart rate 90 /min Kenia Washington E [employer]ER[employer] DEVELOPER Work Phone: [facility] 02-27-2024 13:41-0400 SaO2% (BldA) [Mass fraction] 99 % Kenia Washington E [employer]ER[employer] DEVELOPER Work Phone: [facility] 02-27-2024 13:41-0400 Systolic blood pressure 128 mm[Hg] Kenia Washington E [employer]ER[employer]ELOPER Work Phone: [facility] 05-07-2023 13:15-0400 Body height 167.64 cm Key Patel Other [employer] Other 05-07-2023 13:15-0400 Body mass index (BMI) [Ratio] 37.54 kg/m2 Key Patel Other [employer] Other 05-07-2023 13:15-0400 Body temperature 97.8 [degF] Key Patel Other [employer] Other 05-07-2023 13:15-0400 Body weight 105.51 kg Key Mccallumney Other [employer] Other 05-07-2023 13:15-0400 Respiratory rate 18 /min Key Mccallumney Other [employer] Other 05-07-2023 13:15-0400 SaO2% (BldA) [Mass fraction] 98 % Key Arnettarney Other [employer] Other 11-08-2022 13:50-0400 Body height 167.64 cm Chase Saldana Other [employer] Other 11-08-2022 13:50-0400 Body mass index (BMI) [Ratio] 35.51 kg/m2 Chase Saldana Other [employer] Other 11-08-2022 13:50-0400 Body weight 99.79 kg Chase Saldana Other [employer] Other 04-26-2022 11:55-0400 Body height 167.64 cm Autumn Marley Other [employer] Other 04-26-2022 11:55-0400 Body mass index (BMI) [Ratio] 35.02 kg/m2 Autumn Marley Other [employer] Other 04-26-2022 11:55-0400 Body temperature 97.7 [degF] Autumn Marley Other [employer] Other 04-26-2022 11:55-0400 Body weight 98.43 kg Autumn Marley Other [employer] Other 04-26-2022 11:55-0400 Diastolic blood pressure 82 mm[Hg] Autumn Marley Other [employer] Other 04-26-2022 11:55-0400 Respiratory rate 18 /min Autumn Marley Other [employer] Other 04-26-2022 11:55-0400 SaO2% (BldA) [Mass fraction] 98 % Autumn Marley Other [employer] Other 04-26-2022 11:55-0400 Systolic blood pressure 122 mm[Hg] Autumn Marley Other [employer] Other 04-23-2022 10:50-0400 Body height 167.64 cm Autumn Marley Other [employer] Other 04-23-2022 10:50-0400 Body mass index (BMI) [Ratio] 33.89 kg/m2 Autumn Marley Other [employer] Other 04-23-2022 10:50-0400 Body temperature 97.8 [degF] Autumn Marley Other [employer] Other 04-23-2022 10:50-0400 Body weight 95.26 kg Auutmn Marley Other [employer] Other 04-23-2022 10:50-0400 Respiratory rate 18 /min Autumn Marley Other [employer] Other 04-23-2022 10:50-0400 SaO2% (BldA) [Mass fraction] 98 % Autumn Marley Other [employer] Other 03-27-2022 10:15-0400 Body height 167.64 cm Deb Simon Other [employer] Other 03-27-2022 10:15-0400 Body mass index (BMI) [Ratio] 34.38 kg/m2 Deb Simon Other [employer] Other 03-27-2022 10:15-0400 Body temperature 97.4 [degF] Deb Simon Other [employer] Other 03-27-2022 10:15-0400 Body weight 96.62 kg Deb Simon Other [employer] Other 03-27-2022 10:15-0400 Respiratory rate 18 /min Deb Simon Other [employer] Other 03-27-2022 10:15-0400 SaO2% (BldA) [Mass fraction] 96 % Deb Simon Other [employer] Other 04-05-2021 16:10-0400 Body height 167.64 cm Lucinda Salgado Other [employer] Other 04-05-2021 16:10-0400 Body mass index (BMI) [Ratio] 33.25 kg/m2 Lucinda Salgado Other [employer] Other 04-05-2021 16:10-0400 Body temperature 97.3 [degF] Lucinda Salgado Other [employer] Other 04-05-2021 16:10-0400 Body weight 93.44 kg Lucinda Salgado Other [employer] Other 04-05-2021 16:10-0400 Diastolic blood pressure 74 mm[Hg] Lucinda Salgado Other [employer] Other 04-05-2021 16:10-0400 Respiratory rate 18 /min Lucinda Salgado Other [employer] Other 04-05-2021 16:10-0400 SaO2% (BldA) [Mass fraction] 99 % Lucinda Salgado Other [employer] Other 04-05-2021 16:10-0400 Systolic blood pressure 111 mm[Hg] Lucinda Salgado Other [employer] Other Encounters Encounter Date Encounter Type Care Provider Facility Start: 10-23-2024 ambulatory Gearld Howard acility:[facility] Start: 10-07-2024 End: 10-07-2024 Office outpatient new 45 minutes Jerry Carrera PA-C Work Phone: [facility] Comment on above: Disorder of sacrum ( Primary Dx); Lumbar spondylosis; Spinal stenosis of lumbar region with neurogenic claudication Start: 10-07-2024 End: 10-07-2024 ambulatory JERRY CARRERA [facility] Start: 10-06-2024 End: 10-06-2024 ambulatory KENIA FELIX Not Available Start: 09-24-2024 End: 09-24-2024 Bamboo flowsheet Mandie Wiggins DPM Work Phone: [facility] Start: 09-24-2024 End: 09-24-2024 Bamboo flowsheet Mandie Wiggins DPM Work Phone: [facility] Start: 09-24-2024 End: 09-24-2024 ambulatory MANDIE WIGGINS Not Available Start: 09-24-2024 End: 09-24-2024 Office outpatient visit 15 minutes Mandie Wiggins DPM Work Phone: [facility] Comment on above: Nail dystrophy (Prim ronal Dx); Ingrown nail; Pain of toe of left foot Start: 09-08-2024 End: 09-08-2024 Emergency department patient visit [facility] Start: 08-13-2024 End: 08-13-2024 Telephone encounter Kenia Washington NP Work Phone: [facility] Start: 08-12-2024 End: 08-12-2024 Emergency department patient visit [facility] Start: 07-27-2024 End: 07-27-2024 ambulatory [facility] Start: 07-24-2024 End: 07-24-2024 Emergency department patient visit [facility] Start: 06-13-2024 End: 06-13-2024 Emergency department patient visit [facility] Start: 06-08-2024 End: 06-08-2024 ambulatory [facility] Start: 05-28-2024 End: 05-28-2024 ambulatory [facility] Start: 05-28-2024 End: 05-28-2024 Office outpatient new [address] [facility] DO Work Phone: [facility] Comment on above: Chronic cough (Prima ry Dx); Mild intermittent asthma in adult without complication Start: 05-28-2024 End: 05-28-2024 ambulatory [facility] Start: 05-19-2024 End: 05-19-2024 Bamboo flowsheet Kenia Washington NP Work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
[2024-10-29 23:14] VITALS: BP 135/86; PULSE 117; TEMP 36.7; O2SAT 97; BMI 36.6
--- NOTE | 2024-10-29 23:20 | ECG_ITS ---
[facility] Test Date: 2024-10-29 Pat Name: VERNELL ENGLE Department: Room: - Gender: Female Molder Bench: : 1995 Requested By: [id number] Order Number: [id number] Reading MD: STEPHEN MCCRAY M.D. Measurements Intervals [place] Rate: 111 P: 43 [place]: 174 QRS: 88 QRSD: 82 T: 26 QT: 318 QTc: 383 Interpretive Statements 1120 Sinus tachycardia 9140 abnormal rhythm ECG Compared to ECG 11/26/2023 21:09:58 Heart rate has increased Electronically Signed On 10-30-2024 11:54:09 EDT by STEPHEN MCCRAY M.D.
--- NOTE | 2024-10-30 00:13 | ED_ITS ---
HPI HPI - General Adult General Chief complaint: Chest Pain Stated complaint: Abdominal Pain Chest Pain Time Seen by Provider: 10/29/24 23:25 Source: patient Mode of arrival: walk-in Limitations: no limitations History of Present Illness HPI narrative: This 29-year-old female presents for evaluation of 3 days of upper abdominal pain. She states the pain started in the left upper quadrant and epigastrium and is now in the right upper quadrant. It is sharp and stabbing in nature and moves around in her stomach. Is associated with nausea. She has not vomited but has had multiple episodes of diarrhea including diarrhea that she was unable to control. She denies any fever. She denies any urinary symptoms. She doubts the possibility of but is not certain. She states the pain radiates into her chest and associated with shortness of breath. She has not had a cough. She denies tobacco use but vapes. She is not having any flank pain or urinary symptoms. Related Data Home Medications ?Medication ?Instructions ?Recorded ?Confirmed oxcarbazepine 300 mg tablet 300 mg PO BID 11/26/23 09/14/24 cholecalciferol (vitamin D3) 10 10 mcg PO DAILY 04/24/24 09/14/24 mcg (400 unit) capsule (Vitamin D3) rizatriptan 5 mg tablet 5 mg PO Q2H PRN migraine headache 04/24/24 09/14/24 epinephrine 0.15 mg/0.3 mL 0.3 ml IM PRN 05/20/24 09/14/24 injection,auto-injector tizanidine 4 mg tablet 4 mg PO Q12H PRN muscle spasticity 07/27/24 09/14/24 Previous Rx's ?Medication ?Instructions ?Recorded ibuprofen 600 mg tablet 600 mg PO QID PRN pain #20 tabs 06/12/24 ketorolac 10 mg tablet 10 mg PO TID PRN pain #10 tabs 07/02/24 methocarbamol 750 mg tablet 750 mg PO Q6H PRN pain #30 tabs 10/10/24 nabumetone 750 mg tablet 750 mg PO BID PRN pain #14 tabs 10/10/24 Allergies Allergy/AdvReac Type Severity Reaction Status Date / Time latex Allergy Unknown Rash Verified 10/29/24 23:20 adhesive Allergy Rash Verified 10/29/24 23:20 Sulfa (Sulfonamide AdvReac Mild Hives Verified 10/29/24 23:20 Antibiotics) Opioid HPI Opioid Management Most Recent Opioid Data: Last Pain Scale 9 10/30/24 00:34 10/30/24 Last ED Pain Assessment 10/30/24 00:34 Last MAR Pain Assessment 10/30/24 00:26 Review of Systems ROS Status of ROS 10 or more systems reviewed and unremark able except as noted in history and below [facility] Medical History (Updated 10/30/24 @ 01:50 by Andreia Alfaro MD) Seizures ?R56.9 - Unspecified convulsions (ICD-10) Chipped tooth ?S02.5XXA - Fracture of tooth (traumatic), initial encounter for closed fracture (ICD-10) Former smoker, stopped smoking in distant past ?Z87.891 - Personal history of nicotine dependence (ICD-10) Asthma ?J45.909 - Unspecified asthma, uncomplicated (ICD-10) High blood cholesterol level ?E78.00 - Pure hypercholesterolemia, unspecified (ICD-10) Surgical History H/O dilation and curettage ?Z98.890 - Other specified postprocedural states (ICD-10) History of laparoscopic cholecystectomy ?Z90.49 - Acquired absence of other specified parts of digestive tract (ICD- 10) History of tonsillectomy and adenoidectomy ?Z90.89 - Acquired absence of other organs (ICD-10) Social History Smoking status: Former smoker Little interest or pleasure in doing things: not at all Feeling down, depressed, or hopeless: not at all Exam Narrative Exam Narrative: Vital signs and Nursing Notes reviewed: Patient is afebrile, she is tachycardic with a pulse of 117, blood pressure is mildly elevated at 135/86, she is not hypoxic with pulse ox of 97% on room air General: Awake, alert, oriented, overweight female, she is clutching a pillow due to upper abdominal pain, no acute distress, lying comfortably on the stretcher HEENT: Normocephalic atraumatic, mucous membranes are moist and pink, eyes are clear, normal conjunctiva, vision is grossly intact, posterior pharynx is normal in appearance. Tympanic membranes are normal bilaterally Neck: Supple, no meningeal signs, no anterior or posterior cervical lymphadenopathy Chest: Lungs are clear to auscultation with good air entry, there is no wheezing rhonchi or rales appreciated no accessory muscle use, patient is speaking in complete sentences-no chest wall tenderness to palpation CVS: Regular rate and rhythm S1-S2, no murmurs rubs or gallops, pulses are brisk and equal bilaterally ABD: Obese, soft soft, nondistended, epigastric tenderness, there is no right upper quadrant or left upper quadrant tenderness to deep palpation, no tenderness in the lower quadrants, bowel sounds are hyperactive, no rebound guarding or rigidity Extremities: Moving all extremities, no lower extremity tenderness or swelling noted, negative Homans' sign, pulses are brisk and equal bilaterally Skin: Normal in appearance without rash,pallor, petechiae or purpura Neuro: No focal deficits Constitutional Vital Signs, click to edit/add: Last Vital Signs Temp 98.1 F 10/29/24 23:14 Pulse 86 10/30/24 00:55 Resp 18 10/30/24 00:55 BP 135/86 10/29/24 23:14 Pulse Ox 97 10/30/24 00:55 O2 Del Method Room Air 10/30/24 00:32 Course Vital Signs Vital signs: Vital Signs Temperature 98.1 F 10/29/24 23:14 Pulse Rate 117 H 10/29/24 23:14 Respiratory Rate 18 10/29/24 23:14 Blood Pressure 135/86 10/29/24 23:14 Pulse Oximetry 97 10/29/24 23:14 Oxygen Delivery Method Room Air 10/29/24 23:14 Temperature 98.1 F 10/29/24 23:14 Pulse Rate 86 10/30/24 00:55 Respiratory Rate 18 10/30/24 00:55 Blood Pressure 135/86 10/29/24 23:14 Pulse Oximetry 97 10/30/24 00:55 Oxygen Delivery Method Room Air 10/30/24 00:32 Medical Decision Making MDM Narrative Medical decision making narrative: This 29-year-old female presents for evaluation of nausea with diarrhea and abdominal cramping that radiates into her chest starting several days ago. She had several episodes of diarrhea earlier in the day. She has been nauseated but has not vomited. She has no shortness of breath. She is not on control. She doubts the possibility of . She is not having any flank pain or lower abdominal pain. She has not had a fever. An EKG done upon arrival is a sinus rhythm with no acute findings. An IV was placed and she was medicated with IV fluids, Toradol, Zofran and Bentyl. She has not had any additional episodes of diarrhea or vomiting while in the emergency department. She has a normal white count hemoglobin. Electrolytes are normal with a mildly low potassium at 3.3 which she states is good for her. Liver functions are mildly elevated as they have been in the past and she has a normal lipase. She has a normal troponin. Normal D-dimer. X-ray of the chest and abdomen was reviewed by myself and does not show any acute findings in the chest with a nonspecific bowel gas pattern of the abdomen. On reevaluation she is feeling better and will be discharged home with a prescription for Zofran and Bentyl. Lab Data Labs: Lab Results 10/29/24 10/30/24 Range/Units 23:24 00:13 WBC 11.9 H (4.0-11.0) 10^3/uL RBC 4.37 (4.20-5.40) 10^6/uL Hgb 12.9 (12.0-16.0) g/dL Hct 37.4 (36.0-48.0) % MCV 85.6 (81.0-99.0) fL MCH 29.5 (26.7-34.0) pg MCHC 34.5 (29.9-35.2) g/dL RDW 11.9 (11.0-15.0) % Plt Count 344 (150-450) 10^3/uL MPV 9.1 L (9.5-13.5) fL Neut % (Auto) 64.2 (43.0-75.0) % Lymph % (Auto) 28.2 (20.5-60.0) % Tucker % (Auto) 5.9 (1.7-12.0) % Eos % (Auto) 1.1 (0.9-7.0) % Baso % (Auto) 0.3 (0.2-2.0) % Neut # (Auto) 7.6 H (1.4-6.5) 10^3/uL Lymph # (Auto) 3.4 (1.2-3.8) 10^3/uL Tucker # (Auto) 0.7 (0.3-0.8) 10^3/uL Eos # (Auto) 0.1 (0.0-0.7) 10^3/uL Baso # (Auto) 0.0 (0.0-0.1) 10^3/uL Abs Immat Gran (auto) 0.03 (0.00-0.03) 10^3/uL Imm/Tot Granulo (auto) 0.3 (0.0-0.5) % D-Dimer 0.30 (<=0.59) mg/L FEU Sodium 138 (136-145) mmol/L Potassium 3.3 L (3.5-5.1) mmol/L Chloride 103 (98-107) mmol/L Carbon Dioxide 23.9 (21.0-32.0) mmol/L Anion Gap 14.4 BUN 9.0 (7.0-18.0) mg/dL Creatinine 0.86 (0.55-1.02) mg/dL Est GFR ( Amer) >60 (>=60 mL/min/1.73m^2) Est GFR (Non-Af Amer) >60 (>=60 mL/min/1.73m^2) BUN/Creatinine Ratio 10.5 Glucose 99 (74-106) mg/dL Calcium 8.8 (8.5-10.1) mg/dL Total Bilirubin 0.3 (0.2-1.0) mg/dL AST 31 (15-37) U/L ALT 65 H (14-59) U/L Alkaline Phosphatase 156 H (46-116) U/L Troponin I High Sens <4.0 L (4.0-51.3) pg/mL Total Protein 7.7 (6.4-8.2) g/dL Albumin 3.5 (3.4-5.0) g/dL Globulin 4.2 g/dL Albumin/Globulin Ratio 0.8 Lipase 31.0 (16.0-77.0) U/L Urine Color Yellow (YELLOW) Urine Clarity Clear (CLEAR) Urine pH 6.0 (5.0-9.0) Ur Specific [place] 1.025 (1.005-1.025) Urine Protein Negative (NEG/TRACE) mg/dL Urine Glucose (UA) Negative (NEGATIVE) mg/dL Urine Ketones Negative (NEGATIVE) mg/dL Urine Occult Blood Trace-i (NEGATIVE) Urine Nitrite Negative (NEGATIVE) Urine Bilirubin Negative (NEGATIVE) Urine Urobilinogen 0.2 (0.2-1.0) EU/dL Ur Leukocyte Esterase Negative (NEGATIVE) Urine RBC None seen (0-2) #/HPF Urine WBC 0-2 A (NONE SEEN) #/HPF Ur Squamous Epith Cells Few A (NONE/RARE) #/LPF Urine Crystals None seen (None Seen) #/HPF Urine Bacteria Trace A (NONE SEEN) #/HPF Urine Casts None seen (NONE SEEN) #/LPF Urine Mucus Small A (NONE SEEN) Ur Culture Indicated? No Urine HCG, Qual Negative (NEGATIVE) Discharge Plan Discharge Chief Complaint: Chest Pain Clinical Impression: Gastroenteritis, Non-cardiac chest pain, Hypokalemia Patient Disposition: Home, Self-Care Time of Disposition Decision: 01:50 Condition: Good Prescriptions / Home Meds: No Action oxcarbazepine 300 mg tablet 300 mg PO BID epinephrine 0.15 mg/0.3 mL auto-injector 0.3 ml IM PRN tizanidine 4 mg tablet 4 mg PO Q12H PRN (Reason: muscle spasticity) nabumetone 750 mg tablet 750 mg PO BID PRN (Reason: pain) Qty: 14 0RF methocarbamol 750 mg tablet 750 mg PO Q6H PRN (Reason: pain) Qty: 30 0RF rizatriptan 5 mg tablet 5 mg PO Q2H PRN (Reason: migraine headache) cholecalciferol (vitamin D3) [Vitamin D3] 10 mcg (400 unit) capsule 10 mcg PO DAILY ibuprofen 600 mg tablet 600 mg PO QID PRN (Reason: pain) Qty: 20 0RF ketorolac 10 mg tablet 10 mg PO TID PRN (Reason: pain) Qty: 10 0RF Print Language: Lithuanian Instructions: Gastroenteritis (ED), Noncardiac Chest Pain (ED) Referrals: [facility] [Primary Care Provider] - 1 week
[2024-10-30] MEDS: 0.9 % SODIUM CHLORIDE 1,000 ML 1000 ML IV (00:22)
[2024-10-30] MEDS: DICYCLOMINE HCL 10 MG CAPSULE 20 MG PO (00:23)
[2024-10-30] MEDS: ONDANSETRON PF 4 MG/2 ML VIAL IV (00:24)
[2024-10-30] MEDS: KETOROLAC TROMETHAMINE 30 MG/ML VIAL IVP (00:26)
[2024-10-30 00:32] VITALS: O2SAT 97
[2024-10-30 00:40] LABS: Basophils Percent Auto 0.3 % (0.2-2.0); Eosinophils Absolute Auto 0.1 10^3/uL (0.0-0.7); Eosinophils Percent Auto 1.1 % (0.9-7.0); Hematocrit 37.4 % (36.0-48.0); Hemoglobin 12.9 g/dL (12.0-16.0); Immature Granulocytes Abs Auto 0.03 10^3/uL (0.00-0.03); Immature Granulocytes Pct Auto 0.3 % (0.0-0.5); Lymphocytes Absolute Auto 3.4 10^3/uL (1.2-3.8); Lymphocytes Percent Auto 28.2 % (20.5-60.0); Mean Corpuscular HGB Conc 34.5 g/dL (29.9-35.2); Mean Corpuscular Hemoglobin 29.5 pg (26.7-34.0); Mean Corpuscular Volume 85.6 fL (81.0-99.0); Mean Platelet Volume 9.1 fL (9.5-13.5); Monocytes Absolute Auto 0.7 10^3/uL (0.3-0.8); Monocytes Percent Auto 5.9 % (1.7-12.0); Neutrophils Absolute Auto 7.6 10^3/uL (1.4-6.5); Neutrophils Percent Auto 64.2 % (43.0-75.0); Platelet Count 344 10^3/uL (150-450); Red Blood Count 4.37 10^6/uL (4.20-5.40); Red Cell Distribution Width 11.9 % (11.0-15.0); White Blood Count 11.9 10^3/uL (4.0-11.0)
[2024-10-30 00:42] LABS: Bilirubin Urine NEGATIVE (NEGATIVE); Blood Urine TRACE-I (NEGATIVE); Clarity Urine CLEAR (CLEAR); Color Urine YELLOW (YELLOW); Glucose Urine UA NEGATIVE (NEGATIVE); Ketones Urine NEGATIVE (NEGATIVE); Leukocyte Esterase Urine NEGATIVE (NEGATIVE); Nitrite Urine NEGATIVE (NEGATIVE); Protein Urine NEGATIVE (NEG/TRACE); Specific Gravity Urine 1.025 (1.005-1.025); Urobilinogen Urine 0.2 EU/dL (0.2-1.0)
[2024-10-30 00:44] LABS: HCG Qualitative Urine* NEGATIVE (NEGATIVE); Internal Control Within Normal Limits
[2024-10-30 00:48] LABS: RBC Urine NONE SEEN #/HPF (0-2); WBC Urine 0-2 #/HPF (NONE SEEN)
[2024-10-30 00:49] LABS: Bacteria Urine TRACE #/HPF (NONE SEEN); Cast Seen? NONE SEEN #/LPF (NONE SEEN); Crystals Seen? None Seen #/HPF (None Seen); Mucus Urine SMALL (NONE SEEN); Squamous Epithelial Cell Urine FEW #/LPF (NONE/RARE); Urine Culture Indicated NO
[2024-10-30 00:55] VITALS: PULSE 86; O2SAT 97
[2024-10-30 00:58] LABS: Alanine Aminotransferase 65 U/L (14-59); Albumin Globulin Ratio 0.8; Albumin Level 3.5 g/dL (3.4-5.0); Alkaline Phosphatase 156 U/L (46-116); Anion Gap 14.4; Aspartate Amino Transferase 31 U/L (15-37); BUN Creatinine Ratio 10.5; Bilirubin Total 0.3 mg/dL (0.2-1.0); Calcium 8.8 mg/dL (8.5-10.1); Carbon Dioxide 23.9 mmol/L (21.0-32.0); Chloride 103 mmol/L (98-107); Estimated GFR (African America >60 (>=60 mL/min/1.73m^2); Estimated GFR (Non-African Ame >60 (>=60 mL/min/1.73m^2); Globulin 4.2 g/dL; Glucose 99 mg/dL (74-106); Potassium 3.3 mmol/L (3.5-5.1); Sodium 138 mmol/L (136-145); Total Protein 7.7 g/dL (6.4-8.2); Troponin I High Sensitivity <4.0 pg/mL (4.0-51.3)
== END 2024-10-30 02:03 | disposition home or self-care (01) ==
PROVIDERS: Emergency Provider Emergency Medicine
DX: K52.9 Noninfective gastroenteritis and colitis, unspecified (principal); R07.89 Other chest pain; E87.6 Hypokalemia; Z90.49 Acquired absence of other specified parts of digestive tract; F17.290 Nicotine dependence, other tobacco product, uncomplicated
CPT/HCPCS: 36415; 74022; 80053; 81001; 83690; 84484; 84703; 85025; 85378; 93005; 96361; 96374; 96375; 99285; J1885; J2405

== ENCOUNTER 2025-01-25 00:15 | Emergency (ER) | payer MEDICAID, SELFPAY ==
--- OUTSIDE RECORDS SUMMARY | 2025-01-21 23:59 | XMS_ITS | Encounter Summary ---
Author Organization [facility] tem Address [id number] [address] [place] [address] Care Team Providers Care Ambulance Assistant Name Role Phone Services, [facility] Primary Care Provider Reason for Visit * Reason Comments Chest Pain Encounter Details Date Type Department Care Team (Late st Contact Info) Description 01/21/2025 11:59 PM EDT - 01/22/2025 1:42 AM EDT Emergency [facility] - Emergency [address] [place] [address] Eddie Malhotra MD [address] [place] [address] Anxiety (Primary Dx) Discharge Disposition: Home Social History Tobacco Use Types Packs/Day Years Used Date Smoking Tobacco: Former Cigarettes 0.5 14 2 008 - 2021 Smokeless Tobacco: Never Alcohol Use Standard Drinks/Week Comments Yes 0 (1 standard drink = 0.6 oz pur e alcohol) OCCASSIONALLY AUDIT-C Answer Date Recorded Frequency of Alcohol Consumption Never 09/20/2018 Average Number of Drinks Not on file 019 Frequency of Binge Drinking Not on file 03/2019 Childcare Answer Date Recorded Childcare Unknown 12/24/2018 Employment Answer Date Recorded Employment Unknown 12/24/2018 Hunger Screening Answer Date Recorded Within the past 12 months we worried whether our food would run out before we got money to buy more. Never True 01/22/2025 Within the past 12 months th e food we bought just didn't last and we didn't have money to get more. Never True 01/22/2025 Purpose - Life Answer Date Recorded Purpose and direction in life Unknown Comments Unknown Sex and Gender Information Value Date Recorded Sex Assigned at Not on file Legal Sex Female 11:48 AM EDT Gender Identity Not on file Sexual Orientation Not on file documented as of this encounter Last Filed Vital Signs Vital Sign Reading Time Taken Comments Blood Pressure 122/76 01/22/2025 1:30 AM EDT Pulse 98 01/22/2025 1:30 AM EDT Temperature 36.7 C (98.1 F) 01/22/2025 12:03 AM EDT Respiratory Rate 15 01/22/2025 1:22 AM EDT Oxygen Saturation 93% 01/22/2025 1:30 AM EDT Inhaled Oxygen Concentration - - Weight - - Height - - Body Mass Index - - documented in this encounter Discharge Instructions * Attachments The following attachments cannot be sent through Care Everywhere. * Anxiety in adults ??? ED discharge instructions (Armenian) documented in this encounter Medications at Time of Discharge albuterol (PROVENTIL HFA;VENTOLIN HFA) 90 mcg/actuation inhaler Inhale 2 puffs every 4 (four) hours as needed for shortness of breath or wheezing. ALPRAZolam (XANAX) 0.5 mg tablet Take 1 tablet (0.5 mg total) by mouth daily as needed for anxiety. 01/07/2024 butalbital-acetamino phen-caff (FIORICET, ESGIC) 50-300-40 mg per capsule Take 2 capsules by mouth every 6 (six) hours as needed for headaches. 04/18/2024 CAPLYTA 10.5 mg capsule Take 1 capsule (10.5 mg total) by mouth in the morning. 01/30/2024 cetirizine (ZyrTEC) 10 mg tabletIndications:Mi ld intermittent asthma in adult without complication,Chronic cough Take 1 tablet (10 mg total) by mouth in the morning. 30 tablet 11 05/28/2024 cholecalciferol, vitamin D3, 10 mcg (400 unit) capsule Take 400 Units by mouth in the morning. 03/13/2024 clonazePAM (KlonoPIN) 0.5 mg tablet Take 1 tablet (0.5 mg total) by mouth in the morning and at bedtime. cyclobenzaprine (FLEXERIL) 5 mg tablet Take 1 tablet (5 mg total) by mouth nightly as needed for muscle spasms. 03/11/2024 EPINEPHrine (EPIPEN JR) 0.15 mg/0.3 mL auto-injector as directed Injection as needed for 10 days 05/18/2024 meloxicam (MOBIC) 7.5 mg tablet Take 1 tablet (7.5 mg total) by mouth in the morning. 30 tablet 1 10/07/2024 ondansetron ODT (ZOFRAN ODT) 4 mg disintegrating tablet Dissolve 1 tablet (4 mg total) on tongue 3 (three) times a day as needed for nausea for up to 3 doses. 3 tablet 12/30/2024 OXcarbazepine (TRILEPTAL) 300 mg tablet Take 1 tablet (300 mg total) by mouth in the morning and 1 tablet (300 mg total) before bedtime. 11/22/2023 paliperidone (INVEGA) 1.5 mg 24 hr tablet Take 2 tablets (3 mg total) by mouth in the morning. traZODone (DESYREL) 50 mg tablet Take 1 tablet (50 mg total) by mouth nightly as needed. ubrogepant (UBRELVY) 50 mg tablet Take 50 mg by mouth See Admin Instructions. Take 1 tablet at onset of migraine. May repeat in 2 hours if needed viloxazine (QELBREE) 200 mg capsule,extended release 24hr Take 200 mg by mouth in the morning. documented as of this encounter ED Notes * Eddie Malhotra MD - 01/22/2025 1:33 AM EDT Images from the original note were not included. [facility] - EMERGENCY Pt Name: Jennifer Aguiloln Birthdate: 1995 Chief Complaint: Chief Complaint Patient presents with Chest Pain History of Present Illness: HPI 29-year-old female presents emergency department with chest pain. Patient reports that pain startedearlier while at rest. Has a history of anxiety and states she feels like she is having a very severe panic attack. He describes the pain as heaviness in her chest. Sensitive doom. No shortness of breath. No nausea or vomiting. No diaphoresis. No fevers chills or cough Past Medical History: Past Medical History: Diagnosis Date ADHD Anxiety Asthma Bipolar disorder ([facility]) Bronchitis, chronic ([facility]) Bulging lumbar disc Depression Obesity Opiate abuse, episodic ([facility]) Panic disorder Psychogenic nonepileptic seizure 04/2024 PTSD (post-traumatic stress disorder) Schizoaffective disorder ([facility]) Past Surgical History: Past Surgical History: Procedure Laterality Date DILATION AND CURETTAGE, DIAGNOSTIC / THERAPEUTIC LAPAROSCOPIC CHOLECYSTECTOMY N/A 04/24/2021 Performed by Tripp Ferris MD at [facility] TONSILLECTOMY Family History: Family History Problem Relation Age of Onset Hyperlipidemia Mother Hypertension Mother Diabetes Mother Cancer Father Hypertension Father Diabetes Father Leukemia Father Diabetes Maternal Grandmother Heart disease Maternal Grandmother Diabetes Maternal Grandfather Kidney disease Paternal Grandmother Diabetes Paternal Grandmother Social History: Social History Socioeconomic History Marital status: Significant Other Tobacco Use Smoking status: Former Current packs/day: 0.00 Average packs/day: 0.5 packs/day for 14.0 years (7.0 ttl pk-yrs) Types: Cigarettes Start date: 2007 Quit date: 2021 Years since quittin.5 Smokeless tobacco: Never Vaping Use Vaping status: Every Day Start date: 10/13/2022 Substances: Nicotine, Flavoring Devices: Disposable Substance and Sexual Activity Alcohol use: Yes Comment: OCCASSIONALLY Drug use: Not Currently Types: Benzodiazepines, Marijuana Sexual activity: Yes Social Drivers of Health Food Insecurity: No Food Insecurity (01/22/2025) Hunger Screening Food Insecurity - Worry: Never True Food Insecurity - Inability: Never True Review of Systems: Review of Systems Physical Exam: ED Triage Vitals Temp Heart Rate Resp BP SpO2 01/22/25 0003 01/22/25 0001 01/22/25 0001 01/22/25 0000 01/22/25 0000 36.7 ??C (98.1 ??F) (!) 132 22 (!) 142/104 99 % Temp Source Heart Rate Source Patient Position BP Location FiO2 (%) 01/22/25 0003 01/22/25 0001 -- 01/22/25 0001 -- Oral Monitor Left arm Vitals: 01/22/25 0100 01/22/25 0115 07/1112101/22/25129 BP: 113/63 122/83 122/76 Temp: TempSrc: Pulse: 104 100 98 Resp: (!) 34 15 SpO2: 97% 93% 93% MAP (mmHg): 75 94 90 Physical Exam Constitutional: Well-developed, appears stated age, appears anxious and tearful HENT: Head normocephalic and atraumatic, no facial asymmetry Neck: No tracheal deviation Eyes: Sclerae white w/o jaundice Cardiovascular: Heart rate tachycardic regular Pulmonary: Effort Normal, no respiratory distress, lungs clear to auscultation bilaterally Abdominal: non-distended, no visible mass Skin: no exposed rash Musculoskeletal: Moving all extremities spontaneously, no deformity Neurological: Awake, A&Ox3 Psychiatric: Normal behavior Procedure: Procedures Re-evaluation: Re-Evaluation On re-evaluation the patient was now resting comfortably would like to go home and sleep Medical Decision Making Amount and/or Complexity of Data Reviewed Labs: ordered. Decision-making details documented in ED Course. Radiology: ordered. ECG/medicine tests: ordered. Risk Prescription drug management. HEART Score History: Slightly suspicious ECG: Normal Age: <45 Risk Factors: No known risk factors Troponin: Less than or equal to normal limit HEART Score: 0 ED Course: ED Course as of 01/22/25132Jan 22, 2025 0049 D-dimer: <150 Negative dimer [RG] 0049 I personally viewed the patient's chest x-ray and see no focal infiltrate or pneumothorax, pending official Radiology read [RG] 0049 I reviewed the patient's EKGs in shows sinus tachycardia without ischemic changes [RG] ED Course User Index [RG] Eddie Malhotra MD Clinical Impressions as of 01/22/25132 Anxiety . ED Disposition ED Disposition Discharge Date/Time SatJan 22, 2025 1:32 AM Comment At the time of discharge, the plan has been discussed with the patient regarding the diagnosis and prognosis. All questions have been answered. Verbal discharge instructions were discussed with the patient. The patient has been advised to follow up w ith their Primary Care Provider within 1 week. The patient was also instructed to return to the ED if their symptoms change, worsen, new symptoms arise or if they have any additional concerns. . Please note that portions of this note were completed with a voice recognition program. Efforts were made to edit the dictations but occasionally words are mis-transcribed. Eddie Malhotra MD 01/22/25 0136 * Juliet Snow RN - 01/22/2025 12:02 AM EDT Reports chest pain starting approx 30 mins ago while playing a game on her phone, left sided stabbing pain, has hx of panic attacks, unsure if this is what could be happening or not. documented in this encounter Plan of Treatment Not on file documented as of this encounter Goals Goal Patient Goal Type Associated Problems Recent Progress Patient-Stated? Author <enter goal here> General Yes Andreia Blanco RN Note: Evaluation of progress towards goal: To be discharged home documented as of this encounter Procedures Procedure Name Priority Date/Time Associated Diagnosis Comments XR CHEST 1 VW STAT 01/22/2025 12:42 AM EDT TROPONIN I, HIGH SENSITIVITY 0 HOUR STAT 01/22/2025 12:18 AM EDT TROPONIN I, HIGH SENSITIVITY 0 HOUR STAT 01/22/2025 12:18 AM EDT CBC WITH AUTO DIFFERENTIAL STAT 01/22/2025 12:18 AM EDT D-DIMER STAT 01/22/2025 12:18 AM EDT MAGNESIUM STAT 01/22/2025 12:18 AM EDT BASIC METABOLIC PANEL STAT 01/22/2025 12:18 AM EDT ECG 12-LEAD STAT 01/22/2025 12:02 AM EDT documented in this encounter Results * X-ray chest 1 view (01/22/2025 12:42 AM EDT) Anatomical Region Laterality Modality Body, Chest N/A Computed Radiogr aphy 01/22/2025 1:22 AM EDT Narrative 01/22/2025 1:22 AM EDT Single view chest History: Chest pain Comparison: X-ray 06/13/2024 Findings: Single portable view of the chest. Cardiomediastinal silhouette and pulmonary vasculature are within normal limits. Lungs and pleural space are clear. There is no pleural effusion or pneumothorax. Impression: No acute cardiopulmonary process. Finalized by Saúl Weldon on 01/22/2025 1:22 AM Procedure Note Saúl Weldon MD - 01/22/2025 Single view chest History: Chest pain Comparison: X-ray 06/13/2024 Findings: Single portable view of the chest. Cardiomediastinal silhouette and pulmonary vasculature are within normallimits. Lungs and pleural space are clear. There is no pleural effusionor pneumothorax. Impression: No acute cardiopulmonary process. Finalized by Saúl Weldon on 01/22/2025 1:22 AM us Eddie Malhotra MD IMG DIAGNOSTIC IMAGING ORDERAB LES Final Result * Troponin I, High Sensitivity 0 Hour (01/22/2025 12:18 AM EDT) Pathologist [facility] TROPONIN I, HIGH SENSITIVITY 2 <16 ng/L 01/22/2025 1:16 AM EDT [facility] Blood Venous blood / Unknown Venipuncture / Unknown 01/22/2025 12:18 AM EDT 01/22/2025 12:20 AM EDT us Eddie Malhotra MD LAB BLOOD ORDERABLES Final Res ult [facility] [address] [place] [address], * D-Dimer (01/22/2025 12:18 AM EDT) D DIMER <150 1 - 255 ug/mL 01/22/2025 12:41 AM EDT [facility] Comment:Results <255 ng/mL D DU: The presensence of a VTE can safely be excluded with a negative D-Dimer result and Wells score. A negative result doesn't exclude the possibility of DIC. The test should be repeated along with other diagnostic tests if the patient's symptoms persist or worsen. Blood Venous blood / Unknown Venipuncture / Unknown 01/22/2025 12:18 AM EDT 01/22/2025 12:20 AM EDT us Eddie Malhotra MD LAB BLOOD ORDERABLES Final Res ult Performing Organization Address [facility]/ZIP Co de Phone Number [address] [place] [address], [place] * Magnesium (01/22/2025 12:18 AM EDT) MAGNESIUM 2.0 1.8 - 2.6 mg/dL 01/22/2025 12:45 AM EDT [facility] Blood Venous blood / Unknown Venipuncture / Unknown 01/22/2025 12:18 AM EDT 01/22/2025 12:20 AM EDT us Eddie Malhotra MD LAB BLOOD ORDERABLES Final Res ult Performing Organization Address [facility] Co de Phone Number [address] [place] [address], [place] * (ABNORMAL) Basic Metabolic Panel (01/22/2025 12:18 AM EDT) SODIUM 136 134 - 146 mmol/L 01/22/2025 12:45 AM EDT [facility] POTASSIUM 3.2(L) 3.5 - 5.0 mmol/L 01/22/2025 12:45 AM EDT [facility] CHLORIDE 106 98 - 109 mmol/L 01/22/2025 12:45 AM EDT [facility] CARBON DIOXIDE 23 22 - 32 mmol/L 01/22/2025 12:45 AM EDT [facility] ANION GAP 7 5 - 15 mmol/L 01/22/2025 12:45 AM EDT [facility] BLOOD UREA NITROGEN 7 5 - 23 mg/dL 01/22/2025 12:45 AM EDT [facility] CREATININE 0.67 0.40 - 1.00 mg/dL 01/22/2025 12:45 AM EDT [facility] Comment:METHOD TRACEABLE TO [facility] STANDARD GLUCOSE 116(H) 65 - 99 mg/dL 01/22/2025 12:45 AM EDT [facility] CALCIUM 9.3 8.5 - 10.5 mg/dL 01/22/2025 12:45 AM EDT [facility] EGFR Non-Race Dependent >90 >=60 ml/min/1.7 3sq.m 01/22/2025 12:45 AM EDT [facility] Comment: eGFR not reported due to non-numeric value for Creatinine. Reported eGFR is based on the CKD-EPI 2020 equation that does not use a race coefficient. Blood Venous blood / Unknown Venipuncture / Unknown 01/22/2025 12:18 AM EDT 01/22/2025 12:20 AM EDT us Eddie Malhotra MD LAB BLOOD ORDERABLES Final Res ult [facility] [address] [place] [address], * (ABNORMAL) CBC auto differential (01/22/2025 12:18 AM EDT) WBC 10.7 4 - 11 x10E9/L 01/22/2025 12:33 AM EDT [facility] RBC Count 4.71 3.8 - 5.2 X10E12/L 01/22/2025 12:33 AM EDT [facility] Hemoglobin 13.3 11.7 - 15.5 g/dL 01/22/2025 12:33 AM EDT [facility] Hematocrit 38.2 35 - 47 % 01/22/2025 12:33 AM EDT [facility] MCV 81 80 - 100 fL 01/22/2025 12:33 AM EDT [facility] MCH 28.3 27 - 34 pg 01/22/2025 12:33 AM EDT [facility] MCHC 34.9 32 - 36 g/dL 01/22/2025 12:33 AM EDT [facility] RDW 13.6 11.5 - 15 % 01/22/2025 12:33 AM EDT [facility] Platelet Count 384 150 - 450 X10E9/L 01/22/2025 12:33 AM EDT [facility] MPV 7.0 7 - 12 fL 01/22/2025 12:33 AM EDT [facility] Neutrophils % 50.9 % 01/22/2025 12:33 AM EDT [facility] Lymphocytes % 40.5 % 01/22/2025 12:33 AM EDT [facility] Monocytes % 6.7 % 01/22/2025 12:33 AM EDT [facility] Eosinophils % 1.4 % 01/22/2025 12:33 AM EDT [facility] Basophils % 0.5 % 01/22/2025 12:33 AM EDT [facility] Neutrophils Absolute (A) 5.5 1.5 - 6.6 10*3/uL 01/22/2025 12:33 AM EDT [facility] Lymphocytes Absolute 4.3(H) 1.0 - 3.5 10*3/uL 01/22/2025 12:33 AM EDT [facility] Monocytes Absolute 0.7 0.0 - 0.9 10*3/uL 01/22/2025 12:33 AM EDT [facility] Eosinophils Absolute 0.2 0.0 - 0.4 10*3/uL 01/22/2025 12:33 AM EDT [facility] Basophils Absolute 0.1 0.0 - 0.2 10*3/uL 01/22/2025 12:33 AM EDT [facility] Differential Type AUTOMATED DIFFERENTIAL 01/22/2025 12:33 AM EDT [facility] Blood Venous blood / Unknown Venipuncture / Unknown 01/22/2025 12:18 AM EDT 01/22/2025 12:20 AM EDT Eddie Malhotra MD LAB BLOOD ORDERABLES Final Res ult [facility] [address] [facility] [place] [address], [place] * ECG 12 lead (01/22/2025 12:02 AM EDT) 01/22/2025 12:0 2 AM EDT Narrative [facility] - 01/22/2025 12:50 AM EDT Eddie Malhotra MD ECG ORDERABLES Final Result Performing Organization Address City/[facility]/ZIP Co de Phone Number [facility] documented in this encounter Visit Diagnoses Diagnosis Anxiety- Primary Anxiety state, unspecified documented in this encounter Administered Medications Inactive Administered Medications - up to 3 most recent administrations Medication Order MAR Action Action Date Dose Rate Site LORazepam (ATIVAN) injection 1 mg 1 mg, intravenous, Once, On Sat01/22/25 at 0015, For 1 dose, Look-alike/sound-alike medication - verify indication for use;IV use requires increased monitoring of HR,BP,Respirations and Pulse Oximetry;For IV-dilute with equal volume PF sod chloride Given 01/22/2025 12:22 AM EDT 1 mg sodium chloride 0.9 % bolus 1,000 mL, intravenous, at 984 mL/hr, Administer over 61 Minutes, Once, On Sat01/22/25 at 0015, For 1 dose New Bag 01/22/2025 12:22 AM EDT 1,000 mL 984 mL/hr sodium chloride 0.9 % flush 3 mL 3 mL, intravenous, As needed, line care, before and after each intermittent use, Starting on Sat01/22/25 at 0014 documented in this encounter Active and Recently Administered Medications Times are shown in EDT. Scheduled Medication Order 01/20/2025 01/21/2025 01/22/2025 LORazepam (ATIVAN) injection 1 mg (COMPLETED) 1 mg, intravenous, Once, On Sat01/22/25 at 0015, For 1 dose, Look-alike/sound-alike medication - verify indication for use;IV use requires increased monitoring of HR,BP,Respirations and Pulse Oximetry;For IV-dilute with equal volume PF sod chloride 0022 (Given - Provid er: Juliet Snow, RN) sodium chloride 0.9 % bolus (COMPLETED) 1,000 mL, intravenous, at 984 mL/hr, Administer over 61 Minutes, Once, On Sat01/22/25 at 0015, For 1 dose 0022 (New Bag - Prov ider: Juliet Snow, NELSON)0123 (Stop Bag - Provider: Juliet Snow, RN) PRN Medication Order 01/20/2025 01/21/2025 01/22/2025 sodium chloride 0.9 % flush 3 mL 3 mL, intravenous, As needed, line care, before and after each intermittent use, Starting on Sat01/22/25 at 0014 documented in this encounter Care Teams Ambulance Assistant Relationship Specialty Start Date End Date [facility], [facility] [address] [place], [place] PCP - General Family Medicine 08/12/24 documented as of this encounter
--- OUTSIDE RECORDS SUMMARY | 2025-01-25 00:20 | XMS_ITS | Encounter Summary ---
Author Organization [id number] [address] [place] [address] Care Team Providers Care Direct Marketing Manager Name Role Phone Services, [facility] Primary Care Provider Encounter Details Date Type Department Care Team (Late st Contact Info) Description 01/11/2021 Telephone [facility] [address] [place] [id number] Paulina Winslow RMA Social History Tobacco Use Types Packs/Day Years Used Date Smoking Tobacco: Every Day Cigarettes Smokeless Tobacco: Never Alcohol Use Standard Drinks/Week Comments Not Currently 0 (1 standard drink = 0.6 oz pur e alcohol) AUDIT-C Answer Date Recorded Frequency of Alcohol Consumption Never 09/20/2018 Average Number of Drinks Not on file 019 Frequency of Binge Drinking Not on file 03/2019 Childcare Answer Date Recorded Childcare Unknown 12/24/2018 Employment Answer Date Recorded Employment Unknown 12/24/2018 Purpose - Life Answer Date Recorded Purpose and direction in life Unknown Comments No Sex and Gender Information Value Date Recorded Sex Assigned at Not on file Legal Sex Female 11:48 AM EDT Gender Identity Not on file Sexual Orientation Not on file COVID-19 Exposure Response Date Recorded In the last month, have you been in contact with someone who was confirmed or suspected to have Coronavirus / COVID-19? No / Unsure 01/06/2021 12:08 AM EDT documented as of this encounter Miscellaneous Notes * Telephone Encounter - TANK Patel - 01/11/2021 9:28 AM EDT Mili from [facility] surgery called to say that Jennifer was a no show for her COVID testing. Jennifer's surgery was cancelled due to that fact. I called Jennifer to inform her however her phone is not a working phone number. I called her emergency contact, her mother but her phone number is not working as well. A couple weeks ago, we had been trying to contact them & were unable to reach the m. When they both came into the office for the office visit, we verified all phone numbers were working numbers. Now, their numbers are not working again. We will try to continue to reach them about the cancellation of Jennifer's surgery. documented in this encounter Plan of Treatment Not on file documented as of this encounter Goals Goal Patient Goal Type Associated Problems Recent Progress Patient-Stated? Author <enter goal here> General Yes Andreia Blanco, RN Note: Evaluation of progress towards goal: To be discharged home documented as of this encounter Visit Diagnoses Not on filedocumented in this encounter Additional Health Concerns Infection Onset Date Last Indicated Resolved Time COVID-19 Rule-Out 01/12/2022 01/12/2022 01/12/2022 6:11 PM EDT COVID-19 Positive 01/12/2022 01/12/2022 02/02/2022 11:12 PM EDT COVID-19 Rule-Out 05/25/2023 05/25/2023 05/25/2023 1:32 PM EST COVID-19 Positive 07/09/2023 07/09/2023 07/30/2023 11:12 PM EST COVID-19 Rule-Out 11/25/2023 11/25/2023 11/26/2023 12:07 AM EDT documented as of this encounter Care Teams Direct Marketing Manager Relationship Specialty Start Date End Date Services, [facility] [address] [place] PCP - General Family Medicine 08/12/24 documented as of this encounter
--- OUTSIDE RECORDS SUMMARY | 2025-01-25 00:20 | XMS_ITS | Encounter Summary ---
Author Organization [facility] Address [facility] [place]-[id number] [address] [place] [address] Care Team Providers Care Bakery Demonstrator Name Role Phone Services, [facility] Primary Care Provider Encounter Details Date Type Department Care Team (Late st Contact Info) Description 04/13/2024 Orders Only [facility] Medicine [address] [address] Anjelica Sun RN Persistent asthma without complication, unspecified asthma severity (Primary Dx) Social History Tobacco Use Types Packs/Day Years Used Date Smoking Tobacco: Former Cigarettes Smokeless Tobacco: Never Alcohol Use Standard Drinks/Week Comments Never 0 (1 standard drink = 0.6 oz [...] got money to buy more. Never True 12/28/2023 Within the past 12 months th e food we bought just didn't last and we didn't have money to get more. Never True 12/28/2023 Purpose - Life Answer Date Recorded Purpose and direction in life Unknown Comments Unknown Sex and Gender Information Value Date Recorded Sex Assigned at Not on file Legal Sex Female 11:48 AM EDT Gender Identity Not on file Sexual Orientation Not on file documented as of this encounter Plan of Treatment Not on file documented as of this encounter Goals Goal Patient Goal Type Associated Problems Recent Progress Patient-Stated? Author <enter goal here> General Yes Andreia Blanco, NELSON Note: Evaluation of progress towards goal: To be discharged home documented as of this encounter Results * SPIROMETRY PRE/POST BRONCHODILATOR AND DLCO AND PLETHYSMOGRAPHY (2024 10:15 AM EDT) Narrative MANUALLY TRANSCRIBED RESULTS - 05/26/2024 12:31 PM EST Patient gave good effort and data is reproducible FEV1/FVC is 86 with FEV1 105% predicted or 3.33 L in forced vital capacity 96% predicted or 3.85 L. Lung volumes are normal Diffusion capacity is mildly reduced Impression: Normal spirometry without any significant obstructive or restrictive physiology. Lung volumes are normal. Isolated mild reduction in gas transfer. This can be seen in recent smoking prior to testing, underlying anemia, early emphysema, interstitial lung disease. Please correlate with clinical and radiographic data us Radha Santoyo DO PFT ORDERABLES Final Result MANUALLY TRANSCRIBED RESULTS documented in this encounter Visit Diagnoses Diagnosis Persistent asthma without complication, unspecified asthma severity- Primary Persistent asthma without complication, unspecified asthma severity documented in this encounter Care Teams Bakery Demonstrator Relationship Specialty Start Date End Date Services, [facility] [address] [place], [place] PCP - General Family Medicine 08/12/24 documented as of this encounter
--- OUTSIDE RECORDS SUMMARY | 2025-01-25 00:20 | XMS_ITS | Encounter Summary ---
Author Organization [facility] Address [id number] [address] [place] [address] Care Team Providers Care Mine Shifter Name Role Phone Services, [facility] Primary Care Provider Encounter Details Date Type Department Care Team ([facility] st Contact Info) Description 04/13/2024 Telephone [facility] Pul[facility]/Sleep Medicine [address] [address] Radha Santoyo DO [address] [address] Social History Tobacco Use Types Packs/Day Years [...] on file documented as of this encounter Miscellaneous Notes * Telephone Encounter - Bev Christian - 04/13/2024 2:23 PM EDT New patient scheduled 05/28 with [facility] for asthma. Will need PFT order. Thanks * Telephone Encounter - Anjelica Sun RN - 04/13/2024 2:23 PM EDT Order placed. Thanks documented in this encounter Plan of Treatment Not on file documented as of this encounter Goals Goal Patient Goal Type Associated Problems Recent Progress Patient-Stated? Author <enter goal here> General Yes Andreia Blanco RN Note: Evaluation of progress towards goal: To be discharged home documented as of this encounter Visit Diagnoses Not on filedocumented in this encounter Care Teams Mine Shifter Relationship Specialty Start Date End Date Services, [facility] [address] [place], [place] PCP - General Family Medicine 08/12/24 documented as of this encounter
--- OUTSIDE RECORDS SUMMARY | 2025-01-25 00:20 | XMS_ITS | Encounter Summary ---
Author Organization [facility] Address [address] [place] [address] Care Team Providers Care Console Assembler Name Role Phone Shaikh KATHIE Langley Primary Care Provider [phone] Arvin Hardy MD Primary Care Provider [phone] Mary Jane Davila CARPET CUTTER Unavailable [phone] Unallocated, [facility] Provider Primary Care Provi stacy Shaikh KATHIE Langley Primary Care Provider [phone] Renny David DO Unavailable [phone] Kenia Washington CARPET CUTTER Unavailable Unavailable Unallocated, [facility] Provider Primary Care Provi stacy Shaikh KATHIE Langley Unavailable [phone] Encounter Details Date Type Department Care Team (Late st Contact Info) Description 11/05/2023 Orders Only [facility] [address] [place] [address] Shaikh Langley MD [address] [place] [address] Chronic migraine with aura without status migrainosus, not intractable (Primary Dx) Social History Tobacco Use Types Packs/Day Years Used Date Smoking Tobacco: Former Cigarettes Passive Smoke Exposure: Past Smokeless Tobacco: Never Alcohol Use Standard Drinks/Week Comments Not Currently 0 (1 standard drink = 0.6 oz pur e alcohol) PHQ-2 Answer Date Recorded Patient Health Questionnaire-2 Score 0 10/15/2023 Comments Unknown Sex and Gender Information Value Date Recorded Sex Assigned at Not on file Legal Sex Female 6:36 PM EDT Gender Identity Not on file Sexual Orientation Not on file documented as of this encounter Plan of Treatment Not on file documented as of this encounter Visit Diagnoses Diagnosis Chronic migraine with aura without status migrainosus, not intractable- Primary documented in this encounter Care Teams Console Assembler Relationship Specialty Start Date End Date Shaikh Langley MD [address] [place] [address] PCP - General Internal Medicine 10/15/23 02/11/24 Arvin Hardy MD [address] [place] [address] PCP - General Family Medicine 02/12/24 03/18/24 UnalloMargi garcia MD [address] [place] [address] PCP - General Family Medicine 03/19/24 03/31/24 Shaikh Langley MD [address] [place] [address] PCP - General Internal Medicine 04/01/24 12/21/24 UnallocatMargi cordova MD [address] [place] [address] PCP - General Family Medicine 12/22/24 Shaikh Langley MD [address] [place] [address] PCP - [employer] 12/13/24 Mary Jane Davila NP [address] [place] [address] Nurse Practitioner Family Medicine 02/12/24 03/31/24 Renny David DO [address] [place] [address] Referring Physician Neurology 05/18/24 Kenia Washington NP [address] [place] [address] Nurse Practitioner Neurology 05/18/24 documented as of this encounter
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
--- OUTSIDE RECORDS SUMMARY | 2025-01-25 00:21 | XMS_ITS | Encounter Summary ---
Author Organization [facility] [employer] [facility] tem Address [facility] [place]-[id number] [address] [place] [address] Care Team Providers Care Vendor Analyst Name Role Phone Services, [facility] Primary Care Provider Encounter Details Date Type Department Care Team (Late st Contact Info) Description 04/13/2024 Telephone [facility] [address] [address] Anjelica Sun, RN Social History Tobacco Use Types Packs/Day Years [...] encounter Miscellaneous Notes * Telephone Encounter - Anjelica Sidel, RN - 04/13/2024 3:24 PM EDT PLACED PFT ORDER IN OUTGOING MAIL TO PATIENT TO COMPLETE PRIOR TO APPT documented in this encounter Plan of Treatment Not on file documented as of this encounter Goals Goal Patient Goal Type Associated Problems Recent Progress Patient-Stated? Author <enter goal here> General Yes Andreia Blanco RN Note: Evaluation of progress towards goal: To be discharged home documented as of this encounter Visit Diagnoses Not on filedocumented in this encounter Care Teams Vendor Analyst Relationship Specialty Start Date End Date [facility], [facility] [address] [facility] [address] [place] PCP - General Family Medicine 08/12/24 documented as of this encounter
--- OUTSIDE RECORDS SUMMARY | 2025-01-25 00:21 | XMS_ITS | Encounter Summary ---
Author Organization [facility] Address [facility] [id number] [address] [place] [address] Care Team Providers Care Chef Teacher Name Role Phone Services, [facility] Primary Care Provider Encounter Details Date Type Department Care Team (Late st Contact Info) Description 11/04/2024 Telephone [facility] [address] [place] [address] Kasie Limon CNA Social History Tobacco Use Types Packs/Day Years [...] got money to buy more. Never True 10/07/2024 Within the past 12 months th e food we bought just didn't last and we didn't have money to get more. Never True 10/07/2024 Purpose - Life Answer Date Recorded Purpose and direction in life Unknown Comments Unknown Sex and Gender Information Value Date Recorded Sex Assigned at Not on file Legal Sex Female 11:48 AM EDT Gender Identity Not on file Sexual Orientation Not on file documented as of this encounter Miscellaneous Notes * Telephone Encounter - Arpita Aranda RN - 11/04/2024 1:21 PM EDT 1426 Spoke with patient today due to being unhappy with her office visit on 10/07/2024 due to interruptions during her visit with the provider. She does not want additional injections in her spine, as she has had three at the [facility] and only received relief with one. She did recently have an EMG done at the [facility] with positive findings, and has been seeing a chiropractor. For now, she is going to continue her treatment at the [facility]. Advised patient that if she would like to come back to pain management, she can. We have additional providers that shecan see. PVU. documented in this encounter Plan of Treatment Not on file documented as of this encounter Goals Goal Patient Goal Type Associated Problems Recent Progress Patient-Stated? Author <enter goal here> General Yes Andreia Blanco RN Note: Evaluation of progress towards goal: To be discharged home documented as of this encounter Visit Diagnoses Not on filedocumented in this encounter Care Teams Chef Teacher Relationship Specialty Start Date End Date Services, [facility] [address] [place] PCP - General Family Medicine 08/12/24 documented as of this encounter
--- OUTSIDE RECORDS SUMMARY | 2025-01-25 00:21 | XMS_ITS | CCD ---
Author Organization [facility] Care Team Providers Care Rail Specialist Name Role Phone StaBianca thurstonvin Unavailable Unavailable Stalter, Alistair Unavailable Unavailable FURLOSTUART [...] [employer]son Consulting Unavailable TRAY NAVA Consulting Unavailable TIO PALACIOSYL Attending Unavailable [...] MARKER, DR MEDRANO Admitting Unavailable MARKER, DR MERDANO Consulting Unavailable STRAWSER, GERI Consulting Unavailable Autumn Marley Unavailable Chase Saldana Unavailable MIREILLE Saldana Attending Provider [phone] FAWWAD, COLÓN Primary Care Unavailable Key Patel Unavailable NON STAFF Primary Care Provider UnavailMD Gerald Del Castillo Attending Provider [phone] NON STAFF Primary Care Provider UnavailMD Gerald Del Castillo Attending Provider WILDA Washington-DIRECTOR OF OCCUPATIONAL HEALTH-[facility] Kenia Benjamin Attending Provider MD Estefani Alexander Jr Emergency Provider NON STAFF Primary Care Provider UnavailMD Gerald Del Castillo Attending Provider WILDA [place]-DIRECTOR OF OCCUPATIONAL HEALTH-[facility] Kenia Benjamin Attending Provider Syed, INTELLECTUAL PROPERTY COUNSEL [place] Primary Care Provider Korin VÁZQUEZ, Primary Care Provider Frankie DO, Christopher Unavailable [place] GI ASST, Kenia Unavailable RADHA SANTOYO Attending Unavailable [facility] Referring Unavailable [facility] Primary Care Unavailable Antony VÁZQUEZ, Arvin Primary Care Provider Giovanni GI ASST, Mary Jane Unavailable Radha VÁZQUEZ, Bob Frank Attending Unavailable Radha VÁZQUEZ, Bob Frank Attending Unavailable Syed INTELLECTUAL PROPERTY COUNSEL-[facility], [place] Primary Care Provider MANDIE WIGGINS Attending Unavailable WASHINGTON, KENIA Attending Unavailable KORIN, COLÓN Attending Unavailable JOHN HADDAD Attending Unavailable MANDIE WIGGINS Attending Unavailable FAWWATammy, COLÓN Attending Unavailable PALMA GUY Attending Unavailable MANDIE WIGGINS W Attending Unavailable FRANKIE, CHRISTMARGARETER Attending Unavailable FRANKIE, CHRISTOPHER Referring Unavailable KORIN, Attending Unavailable MANDIE WIGGINS W Attending Unavailable WASHINGTON, KENIA Attending Unavailable WASHINGTON, KENIA Referring Unavailable KORIN, Attending Unavailable WASHINGTON, KENIA Attending Unavailable FRANKIE, CHRISTOPHER Attending Unavailable WASHINGTON, KENIA Attending Unavailable WASHINGTON, KENIA Attending Unavailable [facility] Primary Care Provider NON STAFF Primary Care Provider UnavailGerald Del Castillo MD Attending Provider [phone] Estefani Alexander Jr Attending Unavailable Estefani Alexander Jr Admitting Unavailable NON STAFF Primary Care Unavailable Kenia Washington Attending Unavailable Kenia Washington E Admitting Unavailable [facility] Primary Care Unavailable Gerald Wagner Attending Unavailab Gerald Lazo Admitting Unavailab le NON STAFF Primary Care Unavailable FAWWAD, COLÓN Primary Care Unavailable GUSTAVO CHAVEZMAD Attending Unavailable HALEIGH CHAVEZ Attending Unavailable SCOTT, AHMAD Referring Unavailable FAWWAD, COLÓN Primary Care Unavailable WASHINGTON, KENIA Referring Unavailable FAWWAD, COLÓN Primary Care Unavailable WASHINGTON, KENIA Referring Unavailable FAWWAD, COLÓN Primary Care Unavailable SYED, BERNICE Referring Unavailable SYED, BERNICE Primary Care Unavailable SYED, CAIRO Primary Care Unavailable STAN JOHNSON Attending Unavailable SHAWANDARADHA Attending Unavailable SHAWANDA, RADHA M Referring Unavailable SYED, CAIRO Primary Care Unavailable SYED, CAIRO Primary Care Unavailable SANDY ROMERO Attending Unavailable SHAWANDA, RADHA M Referring Unavailable SYED, CAIRO Primary Care Unavailable SYED, CAIRO Primary Care Unavailable CLARENCE MOYA Attending Unavailable SYED, CAIRO Primary Care Unavailable STAN JOHNSON Attending Unavailable SERVICES, [facility] Primary Care Unava ilable SERVICES, [facility] Primary Care Unava ilable MURRAY PHILLIPS Attending Unavailable JERRY CARRERA Attending Unavailable WASHINGTON, KENIA Referring Unavailable SERVICES, [facility] Primary Care Unava ilable SERVICES, [facility] Primary Care Unava ilable KEY GONZALEZ Attending Unavaila ble SERVICES, [facility] Unava ilable ALICE SHANE Attending Unavailable Allergies Allergy Classification Reported Allergen(s) Allergy Type Date of Onset Reaction(s) Facility (20 sources) ibuprofen; Translations: [ibuprofen] Drug Allergy 11-25-19 17 Nausea Only, Nausea [facility] Repository (1 source) Latex; Translations: [Latex Allergy] Propensity to adverse reactions to drug (disorder) [facility] Repository (1 source) Sulfonamides (Antibiotic); Translations: [sulfa drugs] Propensity to adverse reactions to drug (disorder) [facility] Repository (11 sources) Lactase Drug Allergy 03-05-20 vomiting [facility] (16 sources) Latex; Translations: [LATEX] Drug allergy 08-24-19 19 anaphylaxis [facility] (11 sources) Sulfacetamide Drug Allergy 03-05-20 hives [facility] (2 sources) Lactose Drug Allergy [facility] Repository (2 sources) Latex Drug allergy (disorder) 12-30-19 13 [facility] Repository (2 sources) Penicillin Drug Allergy [facility] Repository (1 source) Propylthiouracil Drug Allergy [facility] Repository (2 sources) Sulfonamides (Antibiotic) Drug allergy (disorder) 12-30-19 13 [facility] Repository (11 sources) Sulfonamides (Antibiotic); Translations: [SULFA (SULFONAMIDE ANTIBIOTICS)] Allergy to substance 11-25-19 17 Itching [facility] (18 sources) Clindamycin; Translations: [CLINDAMYCIN] Drug Allergy 06-07-20 20 [facility] (16 sources) Desvenlafaxine Drug Allergy 11-29-19 23 [facility] (14 sources) Escitalopram Drug Allergy 09-21-19 19 [facility] (9 sources) gabapentin Drug Allergy 04-01-20 [facility] Work Phone: (16 sources) Lamotrigine; Translations: [LAMOTRIGINE] Propensity to adverse reactions 01-13-20 18 Swelling, Hives [facility] (16 sources) Latex Allergy to substance 08-24-19 19 Unknown, Anaphylaxis [facility] (15 sources) Penicillins; Translations: [PENICILLINS] Drug Intolerance 12-05-19 19 Rash [facility] (14 sources) Sulfonamides (Antibiotic) Drug Allergy 11-25-19 17 Unknown, Hives, Itching [facility] (9 sources) Verapamil Drug Allergy 04-01-20 24 [facility] (14 sources) Wound Dressing Adhesive Drug Intolerance 01-09-20 [facility] (4 sources) Adhesive agent; [...] Propensity to adverse reactions 08-13-19 25 Palpitations [facility] (2 sources) lamoTRIgine Drug Allergy 01-13-20 18 [facility] (1 source) Lactase Drug Allergy 11-10-19 [facility] Repository (1 source) Latex Drug allergy (disorder) 11-10-19 [facility] Repository (1 source) Sulfacetamide Drug Allergy 11-10-19 [facility] Repository Medications Current Medications Medication Drug Class(es) [...] capsule Take 1 capsule by mouth Active [id number] 200 actuat albuterol 0.09 mg/actuat metered dose inhaler (20 sources) beta2-Adrenergic Agonist Start: 08-24-2018 End: 03-13-2024 Albuterol Sulfate (Proair Hfa) 90 mcg/actuation HFA [...] as needed Inhalation every 4 hrs Active amoxicillin 875 mg / clavulanate 125 [...] tablet 11 05/28/2024 Active Cetirizine / Pseudoephedrine (5 sources) alpha-Adrenergic Agonist, Histamine-1 Receptor Antagonist Start: 03-05-2024 take 1 tablet by mouth every twelve hours, then take 1 tablet by mouth every twelve hours Cetirizine-Pseudoephedrin e (Zyrtec-D) 5-120 mg tablet extended release 12 hr Active 1 TAB PO Every 12 hours 14 7 March 05, 2024 12:00am cholecalciferol 0.01 mg oral capsule (12 sources) Vitamin D Start: 11-09-2024 Cholecalciferol (Vitamin D3) (Vitamin D3) 10 mcg (400 unit) capsule Active PO November 09, 2024 12:00am Start: 03-13-2024 take 1 capsule by mo uth in the morning cholecalciferol, vitamin D3, 10 mcg (400 unit) capsule Take 400 Units by mouth in the morning. 03/13/2024 Active Start: 03-13-2024 take 1 capsule by mo uth once daily cholecalciferol (Vitamin D-3) 10 MCG (400 UNIT) capsule Take 400 Units by mouth Daily 03/13/2024 Active clonazePAM 0.5 mg oral tablet (4 sources) Benzodiazepine Start: 11-09-2024 Clonazepam 0.5 mg tablet Active MG PO November 09, 2024 12:00am take 1 tablet by joy th twice daily as needed clonazePAM (KlonoPIN) 0.5 [...] 1.5 mg/ml oral solution (2 sources) Uncompetitive W-uufxkt-L-aspartat e Receptor Antagonist, Sigma-1 Agonist Vale DM 7.5-7.5 MG/5ML 10 ml Orally every 6-8 hours as needed for 8 days Active [id number] 0.3 ml EPINEPHrine 0.5 mg/ml auto-injector (2 [...] 10/07/2024 Active methylPREDNISolone 4 mg oral tablet (8 sources) Corticosteroid Start: 03-05-2024 take 1 tablet [...] Start: 11-22-19 take 1 tablet by mouth once daily Oxcarbazepine 300 mg tablet Active 300 MG PO Daily March 05, 2024 12:00am End: 09-24-2024 OXcarbazepine (Trileptal) 15 0 MG [...] 1 tablet Orally Once a day Active predniSONE 20 mg oral tablet (1 source) Start: 11-10-19 take 2 tablets by mouth once daily Prednisone 20 mg tablet Active 20 MG PO .COMPLEX November 09, 2024 12:00am Take 2 tabs po daily x 5 days rimegepant 75 mg disintegrating oral tablet (10 [...] hydrochloride 120 mg extended release oral tablet (12 sources) Calcium Channel Lillian Start: 03-03-2024 End: 06-01-2024 take 1 tablet by mouth once daily Verapamil 120 mg tablet extended release Active 120 MG PO Daily March 05, 2024 12:00am Viloxazine (3 sources) Start: 11-09-2024 take 1 mg by mouth every twenty-four hours Viloxazine (Qelbree) 200 mg capsule,extended release 24hr Active MG PO November 09, 2024 12:00am take 1 capsule by [facility] every twenty-four hours in the morning viloxazine (QELBREE) 200 mg capsule,exte nded release 24hr Take 200 mg by mouth [...] tablet Oral for 5 Days 05/28/2024 Discontinued ALPRAZolam 0.5 mg oral tablet (20 sources) Benzodiazepine Start: 01-07-2024 End: 11-09-2024 take 1 tablet by mouth once daily Alprazolam 0.5 mg tablet Discontinued 0.5 MG PO Daily March 05, 2024 12:00am November 09, 2024 11:51am Start: 01-07-2024 End: 09-24-2024 take 1 tablet by mouth twice daily as needed for anxiety ALPRAZolam (Xanax) 0.5 MG tablet Take 0.5 mg by mouth 2 (two) times a day as needed for anxiety 01/07/2024 09/24/2024 Discontinued (Discontinued by another clinician) Xanax Active busPIRone (6 sources) busPIRone HCl No t-Taking busPIRone HCl Ac tive cefTRIAXone (5 sources) Cephalosporin Antibacterial Start: 09-08-2019 Rocephin 500 mg Aug, 500 mg cephalexin 500 mg oral capsule (7 sources) Cephalosporin Antibacterial Start: 02-06-2021 take 1 capsule by mouth every eight hours Cephalexin 500 MG 1 capsule Orally three times a day for 10 day(s) Jan, Not-Taking Start: 08-24-2018 End: 09-03-2018 take 1 capsule by mouth four times daily Cephalexin (Keflex) 500 mg capsule Discontinued 500 MG PO Four times daily 40 10 August 24, 2018 1:00am September 02, 2018 1:00am September 03, 2018 1:01am clindamycin 300 mg oral capsule (2 sources) Lincosamide Antibacterial Start: 03-18-2021 take 1 capsule by mouth every eight hours Clindamycin HCl 300 MG 1 cap(s) Orally tid for 10 day(s) Mar, Not-Taking take 1 capsule by mo [facility] every twelve hours Clindamycin HCl [...] propionate 0.05 mg/actuat metered dose nasal spray (7 sources) Corticosteroid Start: 03-15-2023 take 2 spray(s) nasal route once daily Fluticasone Propionate 50 MCG/ACT 2 sprays Nasally Once a day for 14 day(s) Mar, Not-Taking Start: 08-24-2018 End: 03-05-2024 Fluticasone Propionate 50 mc g/actuation spray,suspension Discontinued August 24, 2018 1:00am March 05, 2024 [...] completed) phenazopyridine hydrochloride 200 mg oral tablet (8 sources) Start: 11-08-2022 take 1 tablet by mouth every eight hours Pyridium 200 MG 1 tablet after meals Orally Three times a day for 2 day(s) Oct, Not-Taking Start: 08-24-2018 End: 08-25-2018 take 1 tablet by mouth every eight hours as needed for pain Phenazopyridine (Pyridium) 200 mg tablet Discontinued 200 MG PO Q8H as needed for pain 6 3 August 24, 2018 1:00am August 24, 2018 1:00am August 25, 2018 1:02am Prazosin (6 sources) alpha-Adrenergic Lillian Prazosi n HCl Not-Taking Prazosin HCl Act karen rizatriptan 5 mg oral tablet (6 sources) [...] [Mild intermittent asthma] Onset: 10-18-2021 02-12-2024 Chronic Asthma (1 source) Asthma Onset: 02-13-2024 Chronic obstructive pulmonary disease and bronchiectasis (2 [...] Headache; including migraine; Translations: [Headache, unspecified] Onset: 12-21-2024 Immunizations and screening for infectious disease (4 sources) Contact with or exposure to other viral diseases; Translations: [Exposure to 2019 novel coronavirus] 03-05-2024 Episodic Intestinal infection (1 source) Viral intestinal infection, unspecified; Translations: [Viral intestinal infection, unspecified] Onset: 12-30-2024 Episodic Menstrual disorders (14 sources) Irregular periods; Translations: [Irregular menstruation, unspecified] Onset: 09-11-2011 06-11-2023 Chronic Mood disorders (20 sources) Bipolar disorder, unspecified; Translations: [Major depressive disorder] Onset: 09-20-2018 03-05-2024 Chronic Nausea and vomiting (2 sources) Vomiting, unspecified; Translations: [Vomiting] Onset: 09-19-2021 Episodic Other aftercare (1 source) Other superintendent container terminal (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 therapy; Translations: [OTH LENS 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 MACHINE TENDER 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] Unclassified (1 source) Heart Palpitations Onset: 06-13-2024 Urinary tract infections (1 source) Acute cystitis [...] Headache; including migraine (1 source) Headache Onset: 04-30-2024 Episodic Inflammation; infection of eye (except that caused by tuberculosis or sexually transmitteddisease) (1 source) Unspecified conjunctivitis; Translations: [Conjunctivitis of left eye, unspecified conjunctivitis type H10.9] Onset: 04-05-2021 Resolved: 04-05-2021 Episodic Mood disorders (14 sources) Mood disorder due to a general medical condition; 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, unspecified] Onset: 09-11-2011 06-11-2023 Episodic Nonspecific chest pain (1 source) Chest pain, unspecified; Translations: [Chest pain, unspecified] Onset: 03-18-2024 Episodic Other circulatory disease (14 sources) Prehypertension; Translations: [Elevated blood-pressure reading, without diagnosis of hypertension] Onset: 12-16-2023 12-16-2023 Episodic Other connective tissue disease (1 source) Pain in left foot; Translations: [Pain in left foot] Onset: 08-12-2024 Episodic Other injuries and conditions due to [...] 05-28-2024 05-28-2024 Episodic Other lower respiratory disease (4 sources) Cough; Translations: [Acute cough] Onset: 11-26-2023 [...] Test Name Value Interpretation Reference Range Facility CBC WITH AUTO DIFFERENTIALon 12-30-2024 BASOPHILS ABSOLUTE COUNT (10*3/UL) BY AUTOMATED COUNT 0.0 10*3/uL Normal 0.0-0.2 [facility] Comment on above: Performed By: #### 8 9579-7, CMP, CBCA, 80089-2 #### [facility] ([id number]) [address] [place] [address] 29675 BASOPHILS RELATIVE PERCENT BY AUTOMATED COUNT 0.3 % Normal [facility] Comment on above: Performed By: #### 8 9579-7, CMP, CBCA, 18907-2 #### [facility] ([id number]) [address] [place] [address] 09277 CELLAVISION DIFFERENTIAL TYPE AUTOMATED DIFFERENTIAL Normal [facility] Comment on above: Performed By: #### 8 9579-7, CMP, CBCA, #### [facility] ([id number]) [address] [place] [address] 91022 Eosinophils (Bld) [#/Vol] 0.2 10*3/uL Normal 0.0-0.4 [facility] Comment on above: Performed By: #### 8 9579-7, CMP, CBCA, #### [facility] ([id number]) [address] [place] [address] 58946 EOSINOPHILS RELATIVE PERCENT BY AUTOMATED COUNT 1.8 % Normal [facility] Comment on above: Performed By: #### 8 9579-7, CMP, CBCA, #### [facility] ([id number]) [address] [place] [address] 26546 Erythrocyte distribution width (RBC) [Ratio] 13.2 % Normal 11.5-15 [facility] Comment on above: Performed By: #### 8 9579-7, CMP, CBCA, #### [facility] ([id number]) [address] [place] [address] 81171 Hematocrit (Bld) [Volume fraction] 37.1 % Normal 35-47 [facility] Comment on above: Performed By: #### 8 9579-7, CMP, CBCA, #### [facility] ([id number]) [address] [place] [address] 94788 Hemoglobin (Bld) [Mass/Vol] 12.6 g/dL Normal 11.7-15.5 [facility] Comment on above: Performed By: #### 8 9579-7, CMP, CBCA, #### [facility] ([id number]) [address] [place] [address] 25219 LYMPHOCYTES ABSOLUTE COUNT (10*3/UL) BY AUTOMATED COUNT 3.3 10*3/uL Normal 1.0-3.5 [facility] Comment on above: Performed By: #### 8 9579-7, CMP, CBCA, 37714-7 #### [facility] ([id number]) [address] [place] [address] 18851 LYMPHOCYTES RELATIVE PERCENT BY AUTOMATED COUNT 24.8 % Normal [facility] Comment on above: Performed By: #### 8 9579-7, CMP, CBCA, #### [facility] ([id number]) [address] [place] [address] 69453 MCH (RBC) [Entitic mass] 28.6 pg Normal 27-34 [facility] Comment on above: Performed By: #### 8 9579-7, CMP, CBCA, #### [facility] ([id number]) [address] [place] [address] 07479 MCHC (RBC) [Mass/Vol] 34.0 g/dL Normal 32-36 [facility] Comment on above: Performed By: #### 8 9579-7, CMP, CBCA, #### [facility] ([id number]) [address] [place] [address] 71998 MCV (RBC) [Entitic vol] 84 fL Normal 80-100 [facility] Comment on above: Performed By: #### 8 9579-7, CMP, CBCA, #### [facility] ([id number]) [address] [place] [address] 71970 MONOCYTES ABSOLUTE COUNT (10*3/UL) BY AUTOMATED COUNT 0.8 10*3/uL Normal 0.0-0.9 [facility] Comment on above: Performed By: #### 8 9579-7, CMP, CBCA, #### [facility] ([id number]) [address] [place] [address] 77045 MONOCYTES RELATIVE PERCENT BY AUTOMATED COUNT 5.7 % Normal [facility] Comment on above: Performed By: #### 8 9579-7, CMP, CBCA, #### [facility] ([id number]) [address] [place] [address] 05916 NEUTROPHILS ABSOLUTE COUNT BY AUTOMATED COUNT 8.9 10*3/uL High 1.5-6.6 [facility] Comment on above: Performed By: #### 8 9579-7, CMP, CBCA, #### [facility] ([id number]) [address] [place] [address] 68909 NEUTROPHILS RELATIVE PERCENT BY AUTOMATED COUNT 67.4 % Normal [facility] Comment on above: Performed By: #### 8 9579-7, CMP, CBCA, 52920-0 #### [facility] ([id number]) [address] [place] [address] 32771 Platelet mean volume (Bld) [Entitic vol] 7.0 fL Normal 7-12 [facility] Comment on above: Performed By: #### 8 9579-7, CMP, CBCA, 78036-8 #### [facility] ([id number]) [address] [place] [address] 29973 Platelets (Bld) [#/Vol] 378 10*3/uL Normal 150-450 [facility] Comment on above: Performed By: #### 8 9579-7, CMP, CBCA, 84068-7 #### [facility] ([id number]) [address] [place] [address] 52883 RBC COUNT 4.42 X10E12/L Normal 3.8-5.2 [facility] Comment on above: Performed By: #### 8 9579-7, CMP, CBCA, 21927-4 #### [facility] ([id number]) [address] [place] [address] 49464 WBC (Bld) [#/Vol] 13.2 10*3/uL High 4-11 [facility] Comment on above: Performed By: #### 8 9579-7, CMP, CBCA, 37238-7 #### [facility] ([id number]) [address] [place] [address] 53162 COMPREHENSIVE METABOLIC PANE Kit 12-30-2024 Albumin [Mass/Vol] 3.9 g/dL Normal 3.2-5.3 [facility] Comment on above: Performed By: #### 8 9579-7, CMP, CBCA, #### [facility] ([id number]) [address] [place] [address] 87078 ALP [Catalytic activity/Vol] 134 U/L High 39-130 [facility] Comment on above: Performed By: #### 8 9579-7, CMP, CBCA, #### [facility] ([id number]) [address] [place] [address] 19603 ALT [Catalytic activity/Vol] 50 U/L High <=31 [facility] Comment on above: Performed By: #### 8 9579-7, CMP, CBCA, #### [facility] ([id number]) [address] [place] [address] 50422 Anion gap [Moles/Vol] 11 mmol/L Normal 5-15 [facility] Comment on above: Performed By: #### 8 9579-7, CMP, CBCA, #### [facility] ([id number]) [address] [place] [address] 15490 AST [Catalytic activity/Vol] 31 U/L Normal <=41 [facility] Comment on above: Performed By: #### 8 9579-7, CMP, CBCA, #### [facility] ([id number]) [address] [place] [address] 38646 Bilirubin [Mass/Vol] 0.5 mg/dL Normal 0.3-1.2 [facility] Comment on above: Performed By: #### 8 9579-7, CMP, CBCA, #### [facility] ([id number]) [address] [place] [address] 39774 Calcium [Mass/Vol] 9.0 mg/dL Normal 8.5-10.5 [facility] Comment on above: Performed By: #### 8 9579-7, CMP, CBCA, #### [facility] ([id number]) [address] [place] [address] 88006 Chloride [Moles/Vol] 102 mmol/L Normal 98-109 [facility] Comment on above: Performed By: #### 8 9579-7, CMP, CBCA, 65720-2 #### [facility] ([id number]) [address] [place] [address] 41073 CO2 [Moles/Vol] 20 mmol/L Low 22-32 [facility] Comment on above: Performed By: #### 8 9579-7, CMP, CBCA, #### [facility] ([id number]) [address] [place] [address] 50351 Creatinine [Mass/Vol] 0.74 mg/dL Normal 0.40-1.00 [facility] Comment on above: Result Comment: METH OD TRACEABLE TO IDMS STANDARD Performed By: #### 8 9579-7, CMP, CBCA, 35124-8 #### [facility] ([id number]) [address] [place] [address] 01838 EGFR (CKD-EPI) NON-RACE DEPENDENT >^90 Normal >=60 [facility] Comment on above: Result Comment: eGFR not reported due to non-numeric value for Creatinine. Reported eGFR is based on the CKD-EPI 2021 equation that does not use a race coefficient. Performed By: #### 8 9579-7, CMP, CBCA, 89130-0 #### [facility] ([id number]) [address] [place] [address] 40617 Glucose [Mass/Vol] 112 mg/dL High 65-99 [facility] Comment on above: Performed By: #### 8 9579-7, CMP, CBCA, 11622-1 #### [facility] ([id number]) [address] [place] [address] 56571 Potassium [Moles/Vol] 3.0 mmol/L Low 3.5-5.0 [facility] Comment on above: Performed By: #### 8 9579-7, CMP, CBCA, #### [facility] ([id number]) [address] [place] [address] 56464 Protein [Mass/Vol] 7.7 g/dL Normal 6.0-8.0 [facility] [facility] Comment on above: Performed By: #### 8 9579-7, CMP, CBCA, #### [facility] ([id number]) [address] [place] [address] 75801 Sodium [Moles/Vol] 133 mmol/L Low 134-146 [facility] Comment on above: Performed By: #### 8 9579-7, CMP, CBCA, #### [facility] ([id number]) [address] [place] [address] 56626 Urea nitrogen [Mass/Vol] 6 mg/dL Normal 5-23 [facility] Comment on above: Performed By: #### 8 9579-7, CMP, CBCA, #### [facility] ([id number]) [address] [place] [address] [place] [address] POCT NURSING URINE MACROSCOP IC UAon 12-30-2024 BILIRUBIN BETHANY Negative Normal Negative [facility] Comment on above: Performed By: #### 8 9579-7, CMP, CBCA, #### [facility] ([id number]) [address] [place] [address] 64782 BLOOD/HGB BETHANY Trace Abnormal Negative [facility] Comment on above: Performed By: #### 8 9579-7, CMP, CBCA, #### [facility] ([id number]) [address] [place] [address] 60863 GLUCOSE BETHANY Negative Normal Negative [facility] Comment on above: Performed By: #### 8 9579-7, CMP, CBCA, #### [facility] ([id number]) [address] [place] [address] 95188 KETONES BETHANY Negative Normal Negative [facility] Comment on above: Performed By: #### 8 9579-7, CMP, CBCA, #### [facility] ([id number]) [address] [place] [address] [place] [address] LEUKOCYTE ESTERASE BETHANY Negative Normal Negative [facility] Comment on above: Performed By: #### 8 9579-7, CMP, CBCA, #### [facility] ([id number]) [address] [place] [address] 01027 NITRITE BETHANY Negative Normal Negative [facility] Comment on above: Performed By: #### 8 9579-7, CMP, CBCA, #### [facility] ([id number]) [address] [place] [address] 64562 PH BETHANY 6.0 Normal 5.0, 6.0, 6.5, 7.0, 7.5, 8.0, 8.5, 5.5 [facility] Comment on above: Performed By: #### 8 9579-7, CMP, CBCA, #### [facility] ([id number]) [address] [place] [address] 47240 PROTEIN BETHANY Negative Normal Negative [facility] Comment on above: Performed By: #### 8 9579-7, CMP, CBCA, 40909-5 #### [facility] ([id number]) [address] [place] [address] 68023 SPECIFIC GRAVITY BETHANY 1.010 Normal 1.010, 1.015, 1.020, 1.025 [facility] Comment on above: Performed By: #### 8 9579-7, CMP, CBCA, #### [facility] ([id number]) [address] [place] [address] 81308 UROBILINOGEN BETHANY 0.2 E.U./dL Normal [facility] Comment on above: Performed By: #### 8 9579-7, CMP, CBCA, 43061-7 #### [facility] ([id number]) [address] [place] [address] 64139 POCT , URINE (NUCG) on 12-30-2024 Beta HCG ( test) Ql (U) Negative Normal Negative, Indeterminate [facility] Comment on above: Performed By: #### 8 9579-7, CMP, CBCA, 29247-1 #### [facility] ([id number]) [address] [place] [address] 37632 XR FOOT LT MIN 3 VWSon 08-12 [...] Sutherland DO on 08/12/2024 4:[address] [facility] HCG ( test) Ql (U)o n 07-24-2024 Beta HCG ( test) Ql (U) Negative Normal NEG [facility] Comment on above: Performed By: #### 8 9579-7, CMP, CBCA, 76199-4 #### [facility] ([id number]) [address] [place] [address] 41770 Beta HCG ( test) Ql (U) DISREGARD RESULTS, TESTS ORDERED ON WRONG PATIENT. Abnormal NEG [facility] Comment on above: Result Comment: RESU LTS ENTERED ON WRONG PATIENT Corrected on 07/27 AT 1343: Previously reported as Negative Performed By: #### 8 9579-7, CMP, CBCA, #### [facility] ([id number]) [address] [place] [address], [place] [address] URN MACROSCOPIC NURon 2024 BILIRUBIN BETHANY Small Abnormal NEG [facility] Comment on above: Performed By: #### 8 9579-7, CMP, CBCA, #### [facility] ([id number]) [address] [place] [address], [place] [address] BILIRUBIN BETHANY DISREGARD RESULTS, TESTS ORDERED ON WRONG PATIENT. Abnormal NEG [facility] Comment on above: Result Comment: RESU LTS ENTERED ON WRONG PATIENT Corrected on 07/27 AT 1342: Previously reported as Small Performed By: #### 8 9579-7, CMP, CBCA, #### [facility] ([id number]) [address] [place] [address], [place] [address] BLOOD/HGB BETHANY Large Abnormal NEG [facility] Comment on above: Performed By: #### 8 9579-7, CMP, CBCA, #### [facility] ([id number]) [address] [place] [address], [place] [address] BLOOD/HGB BETHANY DISREGARD RESULTS, TESTS ORDERED ON WRONG PATIENT. Abnormal [facility] Comment on above: Result Comment: RESU LTS ENTERED ON WRONG PATIENT Corrected on 07/27 AT 1342: Previously reported as Large Performed By: #### 8 9579-7, CMP, CBCA, #### [facility] ([id number]) [address] [place] [address], [place] [address] GLUCOSE BETHANY Negative Normal [facility] Comment on above: Performed By: #### 8 9579-7, CMP, CBCA, #### [facility] ([id number]) [address] [place] [address], [place] [address] GLUCOSE BETHANY DISREGARD RESULTS, TESTS ORDERED ON WRONG PATIENT. Abnormal NEG [facility] Comment on above: Result Comment: RESU LTS ENTERED ON WRONG PATIENT Corrected on 07/27 AT 1342: Previously reported as Negative Performed By: #### 8 9579-7, CMP, CBCA, 07935-9 #### [facility] ([id number]) [address] [place] [address] 89045 KETONES BETHANY Trace Abnormal NEG [facility] Comment on above: Performed By: #### 8 9579-7, CMP, CBCA, 97813-7 #### [facility] ([id number]) [address] [place] [address] 68823 KETONES BETHANY DISREGARD RESULTS, TESTS ORDERED ON WRONG PATIENT. Abnormal NEG [facility] Comment on above: Result Comment: RESU LTS ENTERED ON WRONG PATIENT Corrected on 07/27 AT 1342: Previously reported as Trace Performed By: #### 8 9579-7, CMP, CBCA, 27909-6 #### [facility] ([id number]) [address] [place] [address] [place] [address] LEUKOCYTE ESTERASE BETHANY Small Abnormal NEG [facility] Comment on above: Performed By: #### 8 9579-7, CMP, CBCA, 94258-0 #### [facility] ([id number]) [address] [place] [address] 31240 LEUKOCYTE ESTERASE BETHANY DISREGARD RESULTS, TESTS ORDERED ON WRONG PATIENT. Abnormal NEG [facility] Comment on above: Result Comment: RESU LTS ENTERED ON WRONG PATIENT Corrected on 07/27 AT 1342: Previously reported as Small Performed By: #### 8 9579-7, CMP, CBCA, 75228-9 #### [facility] ([id number]) [address] [place] [address] 45332 NITRITE BETHANY Positive Abnormal NEG [facility] Comment on above: Performed By: #### 8 9579-7, CMP, CBCA, 39403-4 #### [facility] ([id number]) [address] [place] [address] 98590 NITRITE BETHANY DISREGARD RESULTS, TESTS ORDERED ON WRONG PATIENT. Abnormal NEG [facility] Comment on above: Result Comment: RESU LTS ENTERED ON WRONG PATIENT Corrected on 07/27 AT 1342: Previously reported as Positive Performed By: #### 8 9579-7, CMP, CBCA, 10697-8 #### [facility] ([id number]) [address] [place] [address] 28003 PH BETHANY 6.0 Normal 5.0-8.5 [facility] Comment on above: Performed By: #### 8 9579-7, CMP, CBCA, 45544-8 #### [facility] ([id number]) [address] [place] [address] 38814 PH BETHANY DISREGARD RESULTS, TESTS ORDERED ON WRONG PATIENT. Normal 5.0-8.5 [facility] Comment on above: Result Comment: RESU LTS ENTERED ON WRONG PATIENT Corrected on 07/27 AT 1342: Previously reported as 6.0 Performed By: #### 8 9579-7, CMP, CBCA, 69541-8 #### [facility] ([id number]) [address] [place] [address] 82687 PROTEIN BETHANY 30 mg/dL Abnormal NEG [facility] Comment on above: Performed By: #### 8 9579-7, CMP, CBCA, 57876-2 #### [facility] ([id number]) [address] [place] [address] 22527 PROTEIN BETHANY DISREGARD RESULTS, TESTS ORDERED ON WRONG PATIENT. Abnormal NEG [facility] Comment on above: Result Comment: RESU LTS ENTERED ON WRONG PATIENT Corrected on 07/27 AT 1342: Previously reported as 30 Performed By: #### 8 9579-7, CMP, CBCA, 42908-2 #### [facility] ([id number]) [address] [place] [address] 57812 SPECIFIC GRAVITY BETHANY 1.025 Normal 1.003-1.035 [facility] Comment on above: Performed By: #### 8 9579-7, CMP, CBCA, 59799-5 #### [facility] ([id number]) [address] [place] [address] 89651 SPECIFIC GRAVITY BETHANY DISREGARD RESULTS, TESTS ORDERED ON WRONG PATIENT. Normal 1.003-1.035 [facility] Comment on above: Result Comment: RESU LTS ENTERED ON WRONG PATIENT Corrected on 07/27 AT 1342: Previously reported as 1.025 Performed By: #### 8 9579-7, CMP, CBCA, 82842-1 #### [facility] ([id number]) [address] [place] [address] 70186 UROBILINOGEN BETHANY 0.2 eu/dL Normal <1.1 [facility] Comment on above: Performed By: #### 8 9579-7, CMP, CBCA, 25628-2 #### [facility] ([id number]) [address] [place] [address] 00406 UROBILINOGEN BETHANY DISREGARD RESULTS, TESTS ORDERED ON WRONG PATIENT. Normal <1.1 [facility] Comment on above: Result Comment: RESU LTS ENTERED ON WRONG PATIENT Corrected on 07/27 AT 1342: Previously reported as 0.2 Performed By: #### 8 9579-7, CMP, CBCA, 43946-3 #### [facility] ([id number]) [address] [place] [address] 23273 BASIC METABOLIC PANLon 06-13 Anion gap [Moles/Vol] 8 mmol/L Normal 5-15 [facility] Comment on above: Performed By: #### 8 9579-7, CMP, CBCA, 97234-2 #### [facility] ([id number]) [address] [place] [address] 94879 Calcium [Mass/Vol] 8.9 mg/dL Normal 8.5-10.5 [facility] Comment on above: Performed By: #### 8 9579-7, CMP, CBCA, 60786-2 #### [facility] ([id number]) [address] [place] [address] 50879 Chloride [Moles/Vol] 105 mmol/L Normal 98-109 [facility] Comment on above: Performed By: #### 8 9579-7, CMP, CBCA, 31630-9 #### [facility] ([id number]) [address] [place] [address] 13265 CO2 [Moles/Vol] 24 mmol/L Normal 22-32 [facility] Comment on above: Performed By: #### 8 9579-7, CMP, CBCA, 50698-3 #### [facility] ([id number]) [address] [place] [address] 18900 Creatinine [Mass/Vol] 0.72 mg/dL Normal 0.40-1.00 [facility] Comment on above: Result Comment: METH OD TRACEABLE TO IDMS STANDARD Performed By: #### 8 9579-7, CMP, CBCA, 53763-6 #### [facility] ([id number]) [address] [place] [address] 45632 eGFR (CKD-EPI) NON-RACE DEPENDENT >90 Normal >59 [facility] Comment on above: Result Comment: Reported eGFR is based on the CKD-EPI 2020 equation that does not use a race coefficient. Performed By: #### 8 9579-7, CMP, CBCA, 98112-7 #### [facility] ([id number]) [address] [place] [address] 40164 Glucose [Mass/Vol] 106 mg/dL High 65-99 [facility] Comment on above: Performed By: #### 8 9579-7, CMP, CBCA, 47098-1 #### [facility] ([id number]) [address] [place] [address] 32693 Potassium [Moles/Vol] 3.7 mmol/L Normal 3.5-5.0 [facility] Comment on above: Performed By: #### 8 9579-7, CMP, CBCA, 34901-0 #### [facility] ([id number]) [address] [place] [address] 67377 Sodium [Moles/Vol] 137 mmol/L Normal 134-146 [facility] Comment on above: Performed By: #### 8 9579-7, CMP, CBCA, #### [facility] ([id number]) [address] [place] [address] 55968 Urea nitrogen [Mass/Vol] 7 mg/dL Normal 5-23 [facility] Comment on above: Performed By: #### 8 9579-7, CMP, CBCA, #### [facility] ([id number]) [address] [place] [address] 00691 CBC AND AUTO DIFFon 06-13-20 24 ABSOLUTE BASOPHIL 0.1 X10E9/L Normal 0.0-0.2 [facility] Comment on above: Performed By: #### 8 9579-7, CMP, CBCA, #### [facility] ([id number]) [address] [place] [address] 31487 ABSOLUTE NEUTROPHIL 6.0 X10E9/L Normal 1.5-6.6 [facility] Comment on above: Performed By: #### 8 9579-7, CMP, CBCA, #### [facility] ([id number]) [address] [place] [address] 23882 Basophils/100 WBC (Bld) 0.6 % Normal [facility] Comment on above: Performed By: #### 8 9579-7, CMP, CBCA, 14173-7 #### [facility] ([id number]) [address] [place] [address] 40031 Eosinophils (Bld) [#/Vol] 0.1 10*3/uL Normal 0.0-0.4 [facility] Comment on above: Performed By: #### 8 9579-7, CMP, CBCA, #### [facility] ([id number]) [address] [place] [address] 86960 Eosinophils/100 WBC (Bld) 1.2 % Normal [facility] Comment on above: Performed By: #### 8 9579-7, CMP, CBCA, #### [facility] ([id number]) [address] [place] [address] 56961 Erythrocyte distribution width (RBC) [Ratio] 13.3 % Normal 11.5-15.0 [facility] Comment on above: Performed By: #### 8 9579-7, CMP, CBCA, #### [facility] ([id number]) [address] [place] [address] 34258 Hematocrit (Bld) [Volume fraction] 36.0 % Normal 35-47 [facility] Comment on above: Performed By: #### 8 9579-7, CMP, CBCA, #### [facility] ([id number]) [address] [place] [address] 20383 Hemoglobin (Bld) [Mass/Vol] 12.5 g/dL Normal 11.7-15.5 [facility] Comment on above: Performed By: #### 8 9579-7, CMP, CBCA, 90961-5 #### [facility] ([id number]) [address] [place] [address] 61366 Lymphocytes (Bld) [#/Vol] 2.6 10*3/uL Normal 1.0-3.5 [facility] Comment on above: Performed By: #### 8 9579-7, CMP, CBCA, #### [facility] ([id number]) [address] [place] [address] 52904 Lymphocytes/100 WBC (Bld) 28.1 % Normal [facility] Comment on above: Performed By: #### 8 9579-7, CMP, CBCA, #### [facility] ([id number]) [address] [place] [address] 76138 MCH (RBC) [Entitic mass] 29.3 pg Normal 27-34 [facility] Comment on above: Performed By: #### 8 9579-7, CMP, CBCA, 48964-8 #### [facility] ([id number]) [address] [place] [address] 10851 MCHC (RBC) [Mass/Vol] 34.6 g/dL Normal 32-36 [facility] Comment on above: Performed By: #### 8 9579-7, CMP, CBCA, 57476-5 #### [facility] ([id number]) [address] [place] [address] 14864 MCV (RBC) [Entitic vol] 85 fL Normal 80-100 [facility] Comment on above: Performed By: #### 8 9579-7, CMP, CBCA, #### [facility] ([id number]) [address] [place] [address] 33168 Monocytes (Bld) [#/Vol] 0.6 10*3/uL Normal 0-0.9 [facility] Comment on above: Performed By: #### 8 9579-7, CMP, CBCA, 17353-7 #### [facility] ([id number]) [address] [place] [address] 29521 Monocytes/100 WBC (Bld) 5.9 % Normal [facility] Comment on above: Performed By: #### 8 9579-7, CMP, CBCA, 93416-5 #### [facility] ([id number]) [address] [place] [address] 87103 Neutrophils/100 WBC (Bld) 64.2 % Normal [facility] Comment on above: Performed By: #### 8 9579-7, CMP, CBCA, 92815-5 #### [facility] ([id number]) [address] [place] [address] 07513 Platelet mean volume (Bld) [Entitic vol] 6.8 fL Low 7-12 [facility] Comment on above: Performed By: #### 8 9579-7, CMP, CBCA, 47696-2 #### [facility] ([id number]) [address] [place] [address] 43623 Platelets (Bld) [#/Vol] 402 10*3/uL Normal 150-450 [facility] Comment on above: Performed By: #### 8 9579-7, CMP, CBCA, 94756-0 #### [facility] ([id number]) [address] [place] [address] 54914 RBC COUNT 4.26 X10E12/L Normal 3.80-5.20 [facility] Comment on above: Performed By: #### 8 9579-7, CMP, CBCA, 78149-7 #### [facility] ([id number]) [address] [place] [address] 04619 WBC (Bld) [#/Vol] 9.3 10*3/uL Normal 4.0-11.0 [facility] Comment on above: Performed By: #### 8 9579-7, CMP, CBCA, 18211-6 #### [facility] ([id number]) [address] [place] [address] 94580 Fibrin D-dimer DDU (PPP) [Ma ss/Vol]on 06-13-2024 D DIMER 197 ng/mL DDU Normal <255 [facility] Comment on above: Result Comment: Results <255 ng/mL DDU: The presence of a VTE can safely be excluded with a negative D-Dimer result and Wells score. A negative result doesn't exclude the possibility of DIC. The test be repeated along with other diagnostic tests if the patient's symptoms persist or worsen. [email or web address] Performed By: #### 8 9579-7, CMP, CBCA, 61934-5 #### [facility] ([id number]) [address] [place] [address] 69198 HCG ( test) Ql (U)o n 06-13-2024 Beta HCG ( test) Ql (U) Negative Normal NEG [facility] Comment on above: Performed By: #### 8 9579-7, CMP, CBCA, 63148-8 #### [facility] ([id number]) [address] [place] [address] 70256 MAGNESIUMon 06-13-2024 Magnesium [Mass/Vol] 2.1 mg/dL Normal 1.8-2.6 [facility] Comment on above: Performed By: #### 8 9579-7, CMP, CBCA, 99743-1 #### [facility] ([id number]) [address] [place] [address] 20452 PROTIME AND INRon 06-13-2024 INR Coag (PPP) [Relative time] 1.1 {INR} Normal 0.8-1.1 [facility] Comment on above: Performed By: #### 8 9579-7, CMP, CBCA, 89613-2 #### [facility] ([id number]) [address] [place] [address] 73543 PT Coag (PPP) [Time] 12.4 s Normal 9.8-13.2 [facility] Comment on above: Result Comment: NEW REFERENCE RANGE Performed By: #### 8 9579-7, CMP, CBCA, #### [facility] ([id number]) [address] [place] [address] 38692 THYROID PROFILEon 06-13-2024 Free T4 [Mass/Vol] 1.01 ng/dL Normal 0.61-1.60 [facility] Comment on above: Performed By: #### 8 9579-7, CMP, CBCA, #### [facility] ([id number]) [address] [place] [address] 44494 TSH 2.16 uIU/mL Normal 0.49-4.67 [facility] Comment on above: Performed By: #### 8 9579-7, CMP, CBCA, #### [facility] ([id number]) [address] [place] [address] 40272 Troponin I.cardiac High sens itivity method [Mass/Vol]on 06-13-2024 1 HOUR TROP I, HIGH SENSITIVITY <2 Normal <16 [facility] Comment on above: Performed By: #### 8 9579-7, CMP, CBCA, #### [facility] ([id number]) [address] [place] [address] [place] [address] TROPONIN I, HIGH SENSITIVITY <2 Normal <16 [facility] Comment on above: Performed By: #### 8 9579-7, CMP, CBCA, #### [facility] ([id number]) [address] [place] [address] [place] [address] URN MACROSCOPIC NURon 2023 BILIRUBIN BETHANY Negative Normal NEG [facility] Comment on above: Performed By: #### 8 9579-7, CMP, CBCA, #### [facility] ([id number]) [address] [place] [address] [place] [address] BLOOD/HGB BETHANY Small Abnormal NEG [facility] Comment on above: Performed By: #### 8 9579-7, CMP, CBCA, #### [facility] ([id number]) [address] [place] [address] [place] [address] GLUCOSE BETHANY Negative Normal NEG [facility] Comment on above: Performed By: #### 8 9579-7, CMP, CBCA, 08537-9 #### [facility] ([id number]) [address] [place] [address] [place] [address] KETONES BETHANY Negative Normal NEG [facility] Comment on above: Performed By: #### 8 9579-7, CMP, CBCA, 41264-3 #### [facility] ([id number]) [address] [place] [address] [place] [address] LEUKOCYTE ESTERASE BETHANY Negative Normal NEG [facility] Comment on above: Performed By: #### 8 9579-7, CMP, CBCA, #### [facility] ([id number]) [address] [place] [address] [place] [address] NITRITE BETHANY Negative Normal NEG [facility] Comment on above: Performed By: #### 8 9579-7, CMP, CBCA, #### [facility] ([id number]) [address] [place] [address] [place] [address] PH BETHANY 5.5 Normal 5.0-8.5 [facility] Comment on above: Performed By: #### 8 9579-7, CMP, CBCA, #### [facility] ([id number]) [address] [place] [address] 13772 PROTEIN BETHANY Negative Normal NEG [facility] Comment on above: Performed By: #### 8 9579-7, CMP, CBCA, #### [facility] ([id number]) [address] [place] [address] [place] [address] SPECIFIC GRAVITY BETHANY 1.015 Normal 1.003-1.035 [facility] Comment on above: Performed By: #### 8 9579-7, CMP, CBCA, 79008-6 #### [facility] ([id number]) [address] [place] [address] 58987 UROBILINOGEN BETHANY 0.2 eu/dL Normal <1.1 [facility] Comment on above: Performed By: #### 8 9579-7, CMP, CBCA, 13494-6 #### [facility] ([id number]) [address] [place] [id number] XR CHEST 2 VWSon 06-13-2024 XR CHEST [...] Sutherland DO on 06/13/2024 5:[address] [facility] aPTT Coag (PPP) [Time]on aPTT Coag (Bld) [Time] 33 s Normal 26-37 [facility] Comment on above: Result Comment: NEW REFERENCE RANGE Performed By: #### 8 9579-7, CMP, CBCA, 11650-1 #### [facility] ([id number]) [address] [place] [id number] Respiratory allergy panelon 05-29-2024 A. alternata IgE Qn (S) kU/L NINF - 0.10 kU/L [facility] Comment on above: Class 0: Normal A. fumigatus IgE Qn (S) kU/L NINF - 0.10 kU/L [facility] Comment on above: Class 0: Normal [place] house dust mite IgE Qn (S) kU/L NINF - 0.10 kU/L [facility] Comment on above: Class 0: Normal [place] grass IgE Qn (S) kU/L NINF - 0.10 kU/L [facility] Comment on above: Class 0: Normal [place] IgE Qn (S) kU/L NINF - 0 .10 kU/L [facility] Comment on above: Class 0: Normal C. herbarum IgE Qn (S) kU/L NINF - 0.10 kU/L [facility] Comment on above: Class 0: Normal [place] Pollen IgE Qn (S) kU/L NINF - 0.10 kU/L [facility] Comment on above: Class 0: Normal Cat dander IgE Qn (S) kU/L NINF - 0.10 kU/L [facility] Comment on above: Class 0: Normal Cocklebur IgE Qn (S) kU/L NINF - 0.10 kU/L [facility] Comment on above: Class 0: Normal Cockroach IgE Qn (S) kU/L NINF - 0.10 kU/L [facility] Comment on above: Class 0: Normal Common Pigweed IgE Qn (S) kU/L NINF - 0.10 kU/L [facility] Comment on above: Class 0: Normal Common Ragweed IgE Qn (S) kU/L NINF - 0.10 kU/L [facility] Comment on above: Class 0: Normal [place] IgE Qn (S) kU/L NINF - 0.10 kU/L [facility] Comment on above: Class 0: Normal Dog dander IgE Qn (S) kU/L NINF - 0.10 kU/L [facility] Comment on above: Class 0: Normal house dust mite IgE Qn (S) kU/L NINF - 0.10 kU/L [facility] Comment on above: Class 0: Normal [place] IgE Qn (S) kU/L NINF - 0.10 kU/L [facility] Comment on above: Class [...] System Comment on above: Class 0: Normal Bicrh Elder IgE Qn (S) kU/L NINF - [...] Mugwort IgE Qn (S) kU/L NINF - 0. 10 kU/L [facility] Comment on above: Class 0: Normal Nettle IgE Qn (S) kU/L NINF - 0.1 0 kU/L [facility] Comment on above: Class 0: Normal P. notatum IgE Qn (S) kU/L NINF - 0.10 kU/L [facility] Comment on above: Class 0: Normal Pecan or [place] IgE Qn (S) kU/L NINF - 0.10 kU/L [facility] Comment on above: Class 0: Normal Saltwort IgE Qn (S) kU/L NINF - 0 .10 kU/L [facility] Comment on above: Class 0: Normal Sheep [place] IgE Qn (S) kU/L NINF - 0.10 kU/L [facility] Comment on above: Class 0: Normal Silver Birch IgE Qn (S) kU/L NINF - 0.10 kU/L [facility] Comment on above: Class 0: Normal Guero IgE Qn (S) kU/L NINF - 0. 10 kU/L [facility] Comment on above: Class 0: Normal White Jos IgE Qn (S) kU/L NINF - 0.10 kU/L [facility] Comment on above: Class 0: Normal White Elm IgE Qn (S) kU/L NINF - 0.10 kU/L [facility] Comment on above: Class 0: Normal White mulberry IgE Qn (S) kU/L NINF - 0.10 kU/L [facility] Comment on above: Class 0: Normal [place] IgE Qn (S) kU/L NINF - 0.10 kU/L [facility] Comment on above: Class 0: Normal [facility] RESPIRATORY PANELon 05-28-20 24 ALTERNARIA ALTERNATA <0.10 Normal <0.10 [facility] Comment on above: Result Comment: Clas s 0: Normal Performed By: #### R AP #### [facility] ([id number]) [address], [address] [place] [address] ASPERGILLUS FUMIGATUS <0.10 Normal <0.10 [facility] Comment on above: Result Comment: Clas s 0: Normal Performed By: #### R AP #### [facility] ([id number]) [address], [address] [place] [address] BERMUDA GRASS <0.10 Normal <0.10 [facility] Comment on above: Result Comment: Clas s 0: Normal Performed By: #### R AP #### [facility] ([id number]) [address], [address] [place] [address] BOX ELDER <0.10 Normal <0.10 [facility] Comment on above: Result Comment: Clas s 0: Normal Performed By: #### R AP #### [facility] ([id number]) [address], [address] [place] [address] CAT DANDER <0.10 Normal <0.10 [facility] Comment on above: Result Comment: Clas s 0: Normal Performed By: #### R AP #### [facility] ([id number]) [address], [address] [place] [address] CLADOSPORIUM HERB <0.10 Normal <0.10 [facility] Comment on above: Result Comment: Clas s 0: Normal Performed By: #### R AP #### [facility] ([id number]) [address], [address] [place] [address] COCKLEBUR <0.10 Normal <0.10 [facility] Comment on above: Result Comment: Clas s 0: Normal Performed By: #### R AP #### [facility] ([id number]) [address], [address] [place] [address] COCKROACH <0.10 Normal <0.10 [facility] Comment on above: Result Comment: Clas s 0: Normal Performed By: #### R AP #### [facility] ([id number]) [address], [address] [place] [address] COMMON PIGWEED <0.10 Normal <0.10 [facility] Comment on above: Result Comment: Clas s 0: Normal Performed By: #### R AP #### [facility] ([id number]) [address] [place] [address] COMMON RAGWEED <0.10 Normal <0.10 [facility] Comment on above: Result Comment: Clas s 0: Normal Performed By: #### R AP #### [facility] ([id number]) [address] [place] [address] COMMON SILVER BIRCH <0.10 Normal <0.10 [facility] Comment on above: Result Comment: Clas s 0: Normal Performed By: #### R AP #### [facility] ([id number]) [address], [address] [place] [address] COTTONWOOD <0.10 Normal <0.10 [facility] Comment on above: Result Comment: Clas s 0: Normal Performed By: #### R AP #### [facility] ([id number]) [address], [address] [place] [address] DERMATOPH FARINAE <0.10 Normal <0.10 [facility] Comment on above: Result Comment: Clas s 0: Normal Performed By: #### R AP #### [facility] ([id number]) [address], [address] [place] [address] DERMATOPH PTERONYSS <0.10 Normal <0.10 [facility] Comment on above: Result Comment: Clas s 0: Normal Performed By: #### R AP #### [facility] ([id number]) [address], [address] [place] [address] DOG DANDER <0.10 Normal <0.10 [facility] Comment on above: Result Comment: Clas s 0: Normal Performed By: #### R AP #### [facility] ([id number]) [address] [place] [address] ELM <0.10 Normal <0.10 [facility] Comment on above: Result Comment: Clas s 0: Normal Performed By: #### R AP #### [facility] ([id number]) [address], [address] [place] [address] [place] QTR <0.10 Normal <0.10 [facility] Comment on above: Result Comment: Clas s 0: Normal Performed By: #### R AP #### [facility] ([id number]) [address], [address] [place] [address] IGE 13 IU/mL Normal 0-165 [facility] Comment on above: Performed By: #### R AP #### [facility] ([id number]) [address], [address] [place] [address] HEATHER GRASS <0.10 Normal <0.10 [facility] Comment on above: Result Comment: Clas s 0: Normal Performed By: #### R AP #### [facility] ([id number]) [address], [address] [place] [address] MAPLE LEAF SYCAMORE <0.10 Normal <0.10 [facility] Comment on above: Result Comment: Clas s 0: Normal Performed By: #### R AP #### [facility] ([id number]) [address], [address] [place] [address] ME[place]OW [place]ASS [place] TERRA <0.10 Normal <0.10 [facility] Comment on above: Result Comment: Clas s 0: Normal Performed By: #### R AP #### [facility] ([id number]) [address], [address] [place] [address] MOUNTAIN JUNIPER <0.10 Normal <0.10 [facility] Comment on above: Result Comment: Clas s 0: Normal Performed By: #### R AP #### [facility] ([id number]) [address], [address] [place] [address] MOUSE URINE PROTEINS <0.10 Normal <0.10 [facility] Comment on above: Result Comment: Clas s 0: Normal Performed By: #### R AP #### [facility] ([id number]) [address], [address] [place] [address] MUGWORT <0.10 Normal <0.10 [facility] Comment on above: Result Comment: Clas s 0: Normal Performed By: #### R AP #### [facility] ([id number]) [address], [address] [place] [address] MULBERRY TREE <0.10 Normal <0.10 [facility] Comment on above: Result Comment: Clas s 0: Normal Performed By: #### R AP #### [facility] ([id number]) [address], [address] [place] [address] NETTLE <0.10 Normal <0.10 [facility] Comment on above: Result Comment: Clas s 0: Normal Performed By: #### R AP #### [facility] ([id number]) [address] [place] [address] O[place] <0.10 Normal <0.10 [facility] Comment on above: Result Comment: Clas s 0: Normal Performed By: #### R AP #### [facility] ([id number]) [address], [address] [place] [address] PECAN HICKORY TREE <0.10 Normal <0.10 [facility] Comment on above: Result Comment: Clas s 0: Normal Performed By: #### R AP #### [facility] ([id number]) [address], [address] [place] [address] PENICILLIUM CHRYSOGENUM <0.10 Normal <0.10 [facility] Comment on above: Result Comment: Clas s 0: Normal Performed By: #### R AP #### [facility] ([id number]) [address], [address] [place] [address] ROUGH MARSHELDER <0.10 Normal <0.10 [facility] Comment on above: Result Comment: Clas s 0: Normal Performed By: #### R AP #### [facility] ([id number]) [address], [address] [place] [address] SALTW[place] KEVAN THISTLE <0.10 Normal <0.10 [facility] Comment on above: Result Comment: Clas s 0: Normal Performed By: #### R AP #### [facility] ([id number]) [address], [address] [place] [address] SHEEP SORREL <0.10 Normal <0.10 [facility] Comment on above: Result Comment: Clas s 0: Normal Performed By: #### R AP #### [facility] ([id number]) [address], [address] [place] [address] GUERO <0.10 Normal <0.10 [facility] Comment on above: Result Comment: Clas s 0: Normal Performed By: #### R AP #### [facility] ([id number]) [address], [address] [place] [address] WALNUT TREE POLLEN <0.10 Normal <0.10 [facility] Comment on above: Result Comment: Clas s 0: Normal Performed By: #### R AP #### [facility] ([id number]) [address], [address] [place] [address] WHITE JOS <0.10 Normal <0.10 [facility] Comment on above: Result Comment: Clas s 0: Normal Performed By: #### R AP #### [facility] ([id number]) [address], [address] [place] [address] [facility] [place] [address] MRI Report Signed Patient: Jennifer Aguillon MR#: [id number] 8 : 1995 Acct:[id number] Age/Sex: 29 / F ADM Date: 05/11/24 Loc: MR Room: Type: [facility] Attending Dr: Kenia LIN Copies to: DELIA [...] Luis Baldwin M.D.05/11/2024 11:05 PM Dictation Location: [place] [address] Transcribed By: [facility] 05/11/242304 Dictated By: Juan Luis Baldwin DO 05/11/242301 Signed By: 05/11/242304 Normal [facility] MR lumbar spine wo conon MR lumbar spine wo con [facility] [place] [address] [place] [address] MRI Report Signed Patient: Jennifer Aguillon MR#: [id number] 8 : 1995 Acct:[id number] Age/Sex: 29 / F ADM Date: 05/11/24 Loc: Room: Type: [facility] Attending Dr: Kenia LIN Copies to: DELIA [...] Luis Baldwin M.D.05/11/2024 11:02 PM Dictation Location: [place] [address] Transcribed By: [facility] 05/11/242301 Dictated By: Juan Luis Baldwin DO 05/11/242256 Signed By: 05/11/242301 Normal [facility] XR CHEST 2 [...] Vincent MD on 04/28/2024 2:[address] [facility] ECG 12 lead ECGon 03-18-2024 ECG 12 lead ECG [facility] [place] [address] [place] [address] Electrocardiograph Report Signed Patient: Jennifer Aguillon MR#: [id number] 8 : 1995 Acct:[id number] Age/Sex: 28 / F ADM Date: 03/18/24 Loc: ER Room: Type: [facility] ER Attending Dr: Ordering Provider: Estefani [...] ECGs available Confirmed by ESTEFANI ALEXANDER MD ([id number]) on 03/20/2024 5:58:53 AM Referred By: Electronically Signed By: ESTEFANI ALEXANDER MD Transcribed By: MUS Signed By Estefani Alexander Jr, [place] 0[address] Normal [facility] EMG 2 Extremitieson 03-05-20 Normal [facility] Influenza virus B Ag [Presen ce] in Upper respiratory specimen by Rapid immunoassayon 03-05-2024 FLUBV Ag IA.rapid Ql (Nph) Negative [facility] NVC 9-10 Nerveson 03-05-2024 Normal [facility] No Panel Informationon 03-05 Influenza Type A (Rapid) Negative [facility] POC SARS CoV-2 Antigen Negative [facility] Troponin I.cardiac High sens itivity method [Mass/Vol]on 02-14-2024 1 HOUR TROP I, HIGH SENSITIVITY 3 ng/L Normal <16 [facility] Comment on above: Performed By: #### 8 9579-7 #### [facility] ([id number]) [address] [place] [address] CBC AND AUTO DIFFon 02-13-20 ABSOLUTE BASOPHIL 0.0 X10E9/L Normal 0.0-0.2 [facility] Comment on above: Performed By: #### 8 9579-7, CMP, CBCA, #### [facility] ([id number]) [address] [place] [address] ABSOLUTE NEUTROPHIL 7.5 X10E9/L High 1.5-6.6 [facility] Comment on above: Performed By: #### 8 9579-7, CMP, CBCA, 30254-6 #### [facility] ([id number]) [address] [place] [address] Basophils/100 WBC (Bld) 0.3 % Normal [facility] Comment on above: Performed By: #### 8 9579-7, CMP, CBCA, 14728-0 #### [facility] ([id number]) [address] [place] [address] Eosinophils (Bld) [#/Vol] 0.1 10*3/uL Normal 0.0-0.4 [facility] Comment on above: Performed By: #### 8 9579-7, CMP, CBCA, #### [facility] ([id number]) [address] [place] [address] Eosinophils/100 WBC (Bld) 0.8 % Normal [facility] Comment on above: Performed By: #### 8 9579-7, CMP, CBCA, #### [facility] ([id number]) [address] [place] [address] Erythrocyte distribution width (RBC) [Ratio] 13.7 % Normal 11.5-15.0 [facility] Comment on above: Performed By: #### 8 9579-7, CMP, CBCA, #### [facility] ([id number]) [address] [place] [address] Hematocrit (Bld) [Volume fraction] 35.8 % Normal 35-47 [facility] Comment on above: Performed By: #### 8 9579-7, CMP, CBCA, #### [facility] ([id number]) [address] [place] [address]607 Hemoglobin (Bld) [Mass/Vol] 12.5 g/dL Normal 11.7-15.5 [facility] Comment on above: Performed By: #### 8 9579-7, CMP, CBCA, #### [facility] ([id number]) [address] [place] [address] Lymphocytes (Bld) [#/Vol] 3.4 10*3/uL Normal 1.0-3.5 [facility] Comment on above: Performed By: #### 8 9579-7, CMP, CBCA, #### [facility] ([id number]) [address] [place] [address] Lymphocytes/100 WBC (Bld) 29.4 % Normal [facility] Comment on above: Performed By: #### 8 9579-7, CMP, CBCA, #### [facility] ([id number]) [address] [place] [address] 78794 MCH (RBC) [Entitic mass] 29.8 pg Normal 27-34 [facility] Comment on above: Performed By: #### 8 9579-7, CMP, CBCA, #### [facility] ([id number]) [address] [place] [address] 41823 MCHC (RBC) [Mass/Vol] 35.0 g/dL Normal 32-36 [facility] Comment on above: Performed By: #### 8 9579-7, CMP, CBCA, #### [facility] ([id number]) [address] [place] [address] 77913 MCV (RBC) [Entitic vol] 85 fL Normal 80-100 [facility] Comment on above: Performed By: #### 8 9579-7, CMP, CBCA, #### [facility] ([id number]) [address] [place] [address] 75427 Monocytes (Bld) [#/Vol] 0.6 10*3/uL Normal 0-0.9 [facility] Comment on above: Performed By: #### 8 9579-7, CMP, CBCA, #### [facility] ([id number]) [address] [place] [address] 13951 Monocytes/100 WBC (Bld) 4.8 % Normal [facility] Comment on above: Performed By: #### 8 9579-7, CMP, CBCA, 52571-3 #### [facility] ([id number]) [address] [place] [address] 83980 Neutrophils/100 WBC (Bld) 64.7 % Normal [facility] Comment on above: Performed By: #### 8 9579-7, CMP, CBCA, 56537-5 #### [facility] ([id number]) [address] [place] [address] 30695 Platelet mean volume (Bld) [Entitic vol] 6.6 fL Low 7-12 [facility] Comment on above: Performed By: #### 8 9579-7, CMP, CBCA, 40716-8 #### [facility] ([id number]) [address] [place] [address] 00441 Platelets (Bld) [#/Vol] 377 10*3/uL Normal 150-450 [facility] Comment on above: Performed By: #### 8 9579-7, CMP, CBCA, 86872-9 #### [facility] ([id number]) [address] [place] [address] 62776 RBC COUNT 4.21 X10E12/L Normal 3.80-5.20 [facility] Comment on above: Performed By: #### 8 9579-7, CMP, CBCA, 69126-6 #### [facility] ([id number]) [address] [place] [address] 51129 WBC (Bld) [#/Vol] 11.6 10*3/uL High 4.0-11.0 [facility] Comment on above: Performed By: #### 8 9579-7, CMP, CBCA, 61948-3 #### [facility] ([id number]) [address] [place] [address] 80575 COMPREHENSIVE METABOLIC PANE Kit 02-13-2024 Albumin [Mass/Vol] 4.1 g/dL Normal 3.2-5.3 [facility] Comment on above: Performed By: #### 8 9579-7, CMP, CBCA, 62601-8 #### [facility] ([id number]) [address] [place] [address] 11241 ALP [Catalytic activity/Vol] 158 U/L High 39-130 [facility] Comment on above: Performed By: #### 8 9579-7, CMP, CBCA, 47797-0 #### [facility] ([id number]) [address] [place] [address] 71624 ALT [Catalytic activity/Vol] 46 U/L High 0-31 [facility] Comment on above: Performed By: #### 8 9579-7, CMP, CBCA, 72617-8 #### [facility] ([id number]) [address] [place] [address] 05534 Anion gap [Moles/Vol] 7 mmol/L Normal 5-15 [facility] Comment on above: Performed By: #### 8 9579-7, CMP, CBCA, 13492-9 #### [facility] ([id number]) [address] [place] [address] 71468 AST [Catalytic activity/Vol] 28 U/L Normal 0-41 [facility] Comment on above: Performed By: #### 8 9579-7, CMP, CBCA, 43504-7 #### [facility] ([id number]) [address] [place] [address] 19955 Bilirubin [Mass/Vol] 0.5 mg/dL Normal 0.3-1.2 [facility] Comment on above: Performed By: #### 8 9579-7, CMP, CBCA, 29574-6 #### [facility] ([id number]) [address] [place] [address] 13990 Calcium [Mass/Vol] 9.0 mg/dL Normal 8.5-10.5 [facility] Comment on above: Performed By: #### 8 9579-7, CMP, CBCA, 41629-7 #### [facility] ([id number]) [address] [place] [address] 71925 Chloride [Moles/Vol] 106 mmol/L Normal 98-109 [facility] Comment on above: Performed By: #### 8 9579-7, CMP, CBCA, 43480-7 #### [facility] ([id number]) [address] [place] [address] 77349 CO2 [Moles/Vol] 24 mmol/L Normal 22-32 [facility] Comment on above: Performed By: #### 8 9579-7, CMP, CBCA, 54812-7 #### [facility] ([id number]) [address] [place] [address] 11612 Creatinine [Mass/Vol] 0.63 mg/dL Normal 0.40-1.00 [facility] Comment on above: Result Comment: METH OD TRACEABLE TO IDMS STANDARD Performed By: #### 8 9579-7, CMP, CBCA, 88750-8 #### [facility] ([id number]) [address] [place] [address] 87120 eGFR (CKD-EPI) NON-RACE DEPENDENT >90 Normal >59 [facility] Comment on above: Result Comment: Reported eGFR is based on the CKD-EPI 2021 equation that does not use a race coefficient. Performed By: #### 8 9579-7, CMP, CBCA, 79379-7 #### [facility] ([id number]) [address] [place] [address] 81106 Glucose [Mass/Vol] 98 mg/dL Normal 65-99 [facility] Comment on above: Performed By: #### 8 9579-7, CMP, CBCA, 80277-9 #### [facility] ([id number]) [address] [place] [address] 14488 Potassium [Moles/Vol] 3.1 mmol/L Low 3.5-5.0 [facility] Comment on above: Performed By: #### 8 9579-7, CMP, CBCA, 13118-0 #### [facility] ([id number]) [address] [place] [address] 70301 Protein [Mass/Vol] 8.0 g/dL Normal 6.0-8.0 [facility] Comment on above: Performed By: #### 8 9579-7, CMP, CBCA, 14560-9 #### [facility] ([id number]) [address] [place] [address] 32572 Sodium [Moles/Vol] 137 mmol/L Normal 134-146 [facility] Comment on above: Performed By: #### 8 9579-7, CMP, CBCA, 00314-0 #### [facility] ([id number]) [address] [place] [address] 06250 Urea nitrogen [Mass/Vol] 7 mg/dL Normal 5-23 [facility] Comment on above: Performed By: #### 8 9579-7, CMP, CBCA, 09417-9 #### [facility] ([id number]) [address] [place] [address] 59773 HCG ( test) Ql (U)o n 02-13-2024 Beta HCG ( test) Ql (U) Negative Normal NEG [facility] Comment on above: Performed By: #### 2 106-3 #### [facility] ([id number]) [address] [place] [address] 76530 MAGNESIUMon 02-13-2024 Magnesium [Mass/Vol] 1.9 mg/dL Normal 1.8-2.6 [facility] Comment on above: Performed By: #### 8 9579-7, CMP, CBCA, #### [facility] ([id number]) [address] [place] [address] [place] [address] Troponin I.cardiac High sens itivity method [Mass/Vol]on 02-13-2024 TROPONIN I, HIGH SENSITIVITY 3 ng/L Normal <16 [facility] Comment on above: Performed By: #### 8 9579-7, CMP, CBCA, #### [facility] ([id number]) [address] [place] [address] [place] [address] URN MACROSCOPIC NURon 2023 BILIRUBIN BETHANY Negative Normal NEG [facility] Comment on above: Performed By: #### N UM #### [facility] ([id number]) [address] [place] [address] [place] [address] BLOOD/HGB BETHANY Negative Normal NEG [facility] Comment on above: Performed By: #### N UM #### [facility] ([id number]) [address] [place] [address] [place] [address] GLUCOSE BETHANY Negative Normal NEG [facility] Comment on above: Performed By: #### N UM #### [facility] ([id number]) [address] [place] [address] [place] [address] KETONES BETHANY Negative Normal NEG [facility] Comment on above: Performed By: #### N UM #### [facility] ([id number]) [address] [place] [address] [place] [address] LEUKOCYTE ESTERASE BETHANY Negative Normal NEG [facility] Comment on above: Performed By: #### N UM #### [facility] ([id number]) [address] [place] [address] [place] [address] NITRITE BETHANY Negative Normal NEG [facility] Comment on above: Performed By: #### N UM #### [facility] ([id number]) [address] [place] [address] [place] [address] PH BETHANY 6.5 Normal 5.0-8.5 [facility] Comment on above: Performed By: #### N UM #### [facility] ([id number]) [address] [place] [address] PROTEIN BETHANY Negative Normal NEG [facility] Comment on above: Performed By: #### N UM #### [facility] ([id number]) [address] [place] [address] SPECIFIC GRAVITY BETHANY 1.015 Normal 1.003-1.035 Pro [facility] Comment on above: Performed By: #### N UM #### [facility] ([id number]) [address] [place] [address] UROBILINOGEN BETHANY 0.2 eu/dL Normal <1.1 [facility] Comment on above: Performed By: #### N UM #### [facility] ([id number]) [address] [place] [address] XR CHEST 2 VWSon 02-13-2024 XR CHEST 2 VWS XR CHEST 2 VWS Chest 2 views History: Difficulty breathing SOB Comparison: 11/25/2023 Findings: Chest 2 views. Stable cardiomediastinal silhouette. No focal opacity, effusion or pneumothorax. Impression: No evident acute cardiopulmonary process. Finalized by Jennifer Howe MD on 02/13/2024 11:[address] [facility] Provider Letteron 02-25-2023 Provider Letter February 25, 20[address] [place] [id number] : 1995 Dear Jennifer , We have been trying to reach you with no success. It is important that you return our call regarding your referral to our office by Jennifer upon receiving this letter. Also, at the time of your call, please provide us with your current information. Thank you for your prompt attention to this matter. Sincerely, [facility] [phone] Normal [facility] Physician Referralon 023 Physician Referral [phone] [id number] Normal [facility] Urinalysis - AUTOMATEDon Appearance (U) cloudy [employer] Other Bilirubin Ql (U) Negative [employer] Other Color (U) yellow [facility] Other Glucose Ql (U) Negative [employer] Other Hemoglobin Ql (U) Trace-intact [facility] Other Ketones Ql (U) Negative [employer] Other Leukocyte esterase Test strip Ql (U) Trace [facility] Other Nitrite Ql (U) Negative [employer] Other pH (U) 6.0 [pH] [facility] Other Protein Ql (U) Negative [employer] Other Specific gravity (U) [Rel density] <=1.005 [facility] Other Urobilinogen (U) [Mass/Vol] 0.2 mg/dL [facility] Other Urinalysis - AUTOMATED [facility] Other Quick Strepon 04-26-2022 S. pyogenes Org specific cx Ql (Throat) Negative [facility] Other Quick Strep [facility] Other SARS-CoV-2 (COVID-19) RNA NA A+probe Ql (Resp)on 04-23-2022 SARS-CoV-2 (COVID-19) RNA EMMANUELLE+probe Ql (Unsp spec) Negative [facility] Other Covid-19 PCR (CVDTB)on 03-16 SARS-CoV-2 (COVID-19) RNA EMMANUELLE+probe Ql (Unsp spec) Not detected Normal NOT DETECTED [facility] Comment on above: Result Comment: This test is not yet approved or cleared by the [place] FDA. When there are no FDA-approved or cleared tests available, and other criteria are met, FDA can make tests available under an emergency access mechanism called an Emergency Use Authorization (EUA). The EUA for this test is supported by the [place] of Health and Human Service's (HHS's) declaration [...] C BC #### [facility] [address] [place] [address] Dr. Katrin Ceja SARS-CoV-2 (COVID-19) RNA NA A+probe Ql (Resp)on 03-27-2022 SARS-CoV-2 (COVID-19) RNA EMMANUELLE+probe Ql (Unsp spec) Negative [facility] Other CBC AUTO DIFFon 03-22-2022 BASO # 0.0 103/ul Normal 0.0-0.1 [facility] Comment on above: Performed By: #### L IPID, CMP #### [facility] [address], [place] [address] Dr. Katrin Ceja Basophils/100 WBC (Bld) 0.3 % Normal 0.2-2.0 [facility] Comment on above: Performed By: #### L IPID, CMP #### [facility] [address], [place] [address] Dr. Katrin Ceja EO # 0.2 103/ul Normal 0.0-0.7 [facility] Comment on above: Performed By: #### L IPID, CMP #### [facility] [address] [place] [address] Dr. Katrin Ceja Eosinophils/100 WBC (Bld) 2.2 % Normal 0.9-7.0 [facility] Comment on above: Performed By: #### L IPID, CMP #### [facility] [address] [place] [address] Dr. Katrin Ceja Erythrocyte distribution width (RBC) [Ratio] 11.9 % Normal 11.0-15.0 [facility] Comment on above: Performed By: #### L IPID, CMP #### [facility] [address] [place] [address] Dr. Katrin Ceja Hematocrit (Bld) [Volume fraction] 36.4 % Normal 36.0-48.0 [facility] Comment on above: Performed By: #### L IPID, CMP #### [facility] [address] [place] [address] Dr. Katrin Ceja Hemoglobin (Bld) [Mass/Vol] 12.6 g/dL Normal 12.0-16.0 [facility] Comment on above: Performed By: #### L IPID, CMP #### [facility] [address] [place] [address] Dr. Katrin Ceja IG # 0.03 10e3/ul Normal 0.00-0.03 [facility] Comment on above: Performed By: #### L IPID, CMP #### [facility] [address] [place] [address] Dr. Katrin Ceja IG % 0.3 % Normal 0.0-0.5 [facility] Comment on above: Performed By: #### L IPID, CMP #### [facility] [address] [place] [address] Dr. Katrin Ceja LYMPH # 3.5 103/ul Normal 1.2-3.8 [facility] Comment on above: Performed By: #### L IPID, CMP #### [facility] [address] [place] [address] Dr. Katrin Ceja Lymphocytes/100 WBC (Bld) 33.1 % Normal 20.5-60.0 [facility] Comment on above: Performed By: #### L IPID, CMP #### [facility] [address] [place] [address] Dr. Katrin Ceja MANUAL DIFF REQ NO Normal [facility] Comment on above: Performed By: #### L IPID, CMP #### [facility] [address] [place] [address] Dr. Katrin Ceja MCH (RBC) [Entitic mass] 29.9 pg Normal 26.7-34.0 [facility] Comment on above: Performed By: #### L IPID, CMP #### [facility] [address] [place] [address] Dr. Katrin Ceja MCHC (RBC) [Mass/Vol] 34.6 g/dL Normal 29.9-35.2 [facility] Comment on above: Performed By: #### L IPID, CMP #### [facility] [address] [place] [address] Dr. Katrin Ceja MCV (RBC) [Entitic vol] 86.5 fL Normal 81.0-99.0 [facility] Comment on above: Performed By: #### L IPID, CMP #### [facility] [address] [place] [address] Dr. Katrin Ceja MONO # 0.7 103/ul Normal 0.3-0.8 [facility] Comment on above: Performed By: #### L IPID, CMP #### [facility] [address] [place] [address] Dr. Katrin Ceja Monocytes/100 WBC (Bld) 6.5 % Normal 1.7-12.0 [facility] Comment on above: Performed By: #### L IPID, CMP #### [facility] [address] [place] [address] Dr. Katrin Ceja NEUT # 6.0 103/ul Normal 1.4-6.5 [facility] Comment on above: Performed By: #### L IPID, CMP #### [facility] [address] [place] [address] Dr. Katrin Ceja Neutrophils/100 WBC (Bld) 57.6 % Normal 43.0-75.0 [facility] Comment on above: Performed By: #### L IPID, CMP #### [facility] [address] [place] [address] Dr. Katrin Ceja Platelet mean volume (Bld) [Entitic vol] 8.7 fL Critically low 9.5-13.5 [facility] Comment on above: Performed By: #### L IPID, CMP #### [facility] [address] [place] [address] Dr. Katrin Ceja PLT 282 103/ul Normal 150-450 [facility] Comment on above: Performed By: #### L IPID, CMP #### [facility] [address] [place] [address] Dr. Katrin Ceja RBC 4.21 106/ul Normal 4.20-5.40 [facility] Comment on above: Performed By: #### L IPID, CMP #### [facility] [address] [place] [address] Dr. Katrin Ceja WBC 10.5 103/ul Normal 4.0-11.0 [facility] Comment on above: Performed By: #### L IPID, CMP #### [facility] [address] [place] [address] Dr. Katrin Ceja ER URINE PROFILEon 2 Bilirubin Ql (U) Negative Normal NEGATIVE [facility] Comment on above: Performed By: #### L IPID, CMP #### [facility] [address] [place] [address] Dr. Katrin Ceja Clarity (U) CLEAR Normal CLEAR [facility] Comment on above: Performed By: #### L IPID, CMP #### [facility] [address] [place] [address] Dr. Katrin Ceja Color (U) LT. YELLOW Normal YELLOW [facility] Comment on above: Performed By: #### L IPID, CMP #### [facility] [address] [place] [address] Dr. Katrin ANN A micrscopic examination will be performed if indicated. Normal [facility] Comment on above: Performed By: #### L IPID, CMP #### [facility] [address] [place] [address] [address] Katrin Ceja Glucose Ql (U) Negative Normal NEGATIVE [facility] Comment on above: Performed By: #### L IPID, CMP #### [facility] [address] [place] [address] [address] Katrin Ceja Hemoglobin Ql (U) Negative Normal NEGATIVE [facility] Comment on above: Performed By: #### L IPID, CMP #### [facility] [address] [place] [address] Dr. Katrin Ceja Ketones Ql (U) Negative Normal NEGATIVE [facility] Comment on above: Performed By: #### L IPID, CMP #### [facility] [address] [place] [address] Dr. Katrin Ceja LEUKOCYTES Negative Normal NEGATIVE [facility] Comment on above: Performed By: #### L IPID, CMP #### [facility] [address] [place] [address] Dr. Katrin Ceja Nitrite Ql (U) Negative Normal NEGATIVE [facility] Comment on above: Performed By: #### L IPID, CMP #### [facility] [address] [place] [address] Dr. Katrin Ceja pH (U) 6.0 [pH] Normal 5-9 [facility] Comment on above: Performed By: #### L IPID, CMP #### [facility] [address] [place] [address] [address] Katrin Ceja SPEC GRAVITY 1.015 Normal 1.005-<=1.025 [facility] Comment on above: Performed By: #### L IPID, CMP #### [facility] [address] [place] [address] Dr. Katrin Ceja UA PROTEIN Negative Normal NEGATIVE/ TRACE [facility] Comment on above: Performed By: #### L IPID, CMP #### [facility] [address] [place] [address] Dr. Katrin Ceja UR MICRO IND NOT INDICATED Normal [facility] Comment on above: Performed By: #### L IPID, CMP #### [facility] [address] [place] [address] Dr. Katrin Ceja Urobilinogen Qn (U) 0.2 {Jeannie'U}/dL Normal 0.2 - 1. 0 [facility] Comment on above: Performed By: #### L IPID, CMP #### [facility] [address] [place] [address] Dr. Katrin Ceja LIPASEon 03-22-2022 Lipase [Catalytic activity/Vol] 84.0 U/L Normal 73.0-393.0 [facility] Comment on above: Performed By: #### H STROPN, CMP, LIPA #### [facility] [address] [place] [address] Dr. Katrin Ceja URon 03-22-2022 , QUAL Negative Normal NEGATIVE [facility] Comment on above: Performed By: #### L IPID, CMP #### [facility] [address] [place] [address] Dr. Katrin Ceja PROF 14(COMP METB)on 022 Albumin [Mass/Vol] 3.2 g/dL Critically low 3.4-5.0 [facility] Comment on above: Performed By: #### H STROPN, CMP, LIPA #### [facility] [address] [place] [address] Dr. Katrin Ceja Albumin/Globulin [Mass ratio] 0.8 {ratio} Normal [facility] Comment on above: Performed By: #### H STROPN, CMP, LIPA #### [facility] [address] [place] [address] Dr. Katrin Ceja ALP [Catalytic activity/Vol] 189 U/L Critically high 46-116 [facility] Comment on above: Performed By: #### H STROPN, CMP, LIPA #### [facility] [address] [place] [address] Dr. Katrin Ceja ALT [Catalytic activity/Vol] 31 U/L Normal 14-59 [facility] Comment on above: Performed By: #### H STROPN, CMP, LIPA #### [facility] [address] [place] [address] [address] Katrin Ceja Anion gap [Moles/Vol] 9.9 mmol/L Normal [facility] Comment on above: Performed By: #### H STROPN, CMP, LIPA #### [facility] [address] [place] [address] [address] Katrin Ceja AST [Catalytic activity/Vol] 17 U/L Normal 15-37 [facility] Comment on above: Performed By: #### H STROPN, CMP, LIPA #### [facility] [address] [place] [address] Dr. Katrin Ceja Bilirubin [Mass/Vol] 0.2 mg/dL Normal 0.2-1.0 [facility] Comment on above: Performed By: #### H STROPN, CMP, LIPA #### [facility] [address] [place] [address] Dr. Katrin Ceja Calcium [Mass/Vol] 8.7 mg/dL Normal 8.5-10.1 [facility] Comment on above: Performed By: #### H STROPN, CMP, LIPA #### [facility] [address] [place] [address] Dr. Katrin Ceja Chloride [Moles/Vol] 103 mmol/L Normal 98-107 [facility] Comment on above: Performed By: #### H STROPN, CMP, LIPA #### [facility] [address] [place] [address] Dr. Katrin Ceja CO2 [Moles/Vol] 25.4 mmol/L Normal 21.0-32.0 [facility] Comment on above: Performed By: #### H STROPN, CMP, LIPA #### [facility] [address] [place] [address] Dr. Katrin Ceja Creatinine [Mass/Vol] 0.71 mg/dL Normal 0.55-1.02 [facility] Comment on above: Performed By: #### H STROPN, CMP, LIPA #### [facility] [address] [place] [address] [address] Katrin Ceja EGFR-AF CZECH >60 Normal >=60 [facility] Comment on above: Performed By: #### H STROPN, CMP, LIPA #### [facility] [address] [place] [address] [address] Katrin Ceja EGFR-NON AF CZECH >60 Normal >=60 [facility] Comment on above: Performed By: #### H STROPN, CMP, LIPA #### [facility] [address] [place] [address] [address] Katrin Ceja Globulin (S) [Mass/Vol] 4.0 g/dL Normal [facility] Comment on above: Performed By: #### H STROPN, CMP, LIPA #### [facility] [address] [place] [address] [address] Katrin Ceja Glucose [Mass/Vol] 106 mg/dL Normal 74-106 [facility] Comment on above: Performed By: #### H STROPN, CMP, LIPA #### [facility] [address] [place] [address] [address] Katrin Ceja Potassium [Moles/Vol] 3.3 mmol/L Critically low 3.5-5.1 [facility] Comment on above: Performed By: #### H STROPN, CMP, LIPA #### [facility] [address] [place] [address] [address] Katrin Ceja Protein [Mass/Vol] 7.2 g/dL Normal 6.4-8.2 [facility] Comment on above: Performed By: #### H STROPN, CMP, LIPA #### [facility] [address] [place] [address] [address] Katrin Ceja Sodium [Moles/Vol] 135 mmol/L Critically low 136-145 [facility] Comment on above: Performed By: #### H STROPN, CMP, LIPA #### [facility] [address] [place] [address] [address] Katrin Ceja Urea nitrogen [Mass/Vol] 5.0 mg/dL Critically low 7.0-18.0 [facility] Comment on above: Performed By: #### H STROPN, CMP, LIPA #### [facility] [address] [place] [address] [address] Katrin Ceja Urea nitrogen/Creatinine [Mass ratio] 7.0 mg/mg Normal [facility] Comment on above: Performed By: #### H STROPN, CMP, LIPA #### [facility] [address] [place] [address] [address] Katrin Ceja TROPONIN, HIGH SENSITIVITYon 03-22-2022 HSTROP <4.0 Normal 4.0-51.3 [facility] Comment on above: Result Comment: CUT- OFF POINTS HAVE BEEN ESTABLISHED BASED ON THE FOURTH UNIVERSAL DEFINITIONS OF MYOCARDIAL INFARCTION. THE UPPER REFERENCE LIMIT (URL) OF TROPONIN, DEFINED THE 99TH PERCENTILE OF cTnI DISTRIBUTION IN A REFERENCE POPULATION, HAS BEEN CONFIRMED THE DECISION THRESHOLD FOR SC DIAGNOSIS. Performed By: #### H STROPN, CMP, LIPA #### [facility] [address] [place] [address] [address] Katrin Ceja XR ABD FLAT UP_PA [...] 01:53 Normal [facility] XR ANKLE LT MIN 3 Von 2021 [...] 19:32 Normal [facility] CBC AUTO DIFFon 02-08-2022 BASO # 0.0 103/ul Normal 0.0-0.1 [facility] Comment on above: Performed By: #### C BC #### [facility] [address] [place] [address] [address] Katrin Ceja Basophils/100 WBC (Bld) 0.3 % Normal 0.2-2.0 [facility] Comment on above: Performed By: #### C BC #### [facility] [address] [place] [address] [address] Katrin Ceja EO # 0.3 103/ul Normal 0.0-0.7 [facility] Comment on above: Performed By: #### C BC #### [facility] [address] [place] [address] [address] Katrin Ceja Eosinophils/100 WBC (Bld) 3.0 % Normal 0.9-7.0 [facility] Comment on above: Performed By: #### C BC #### [facility] [address] [place] [address] [address] Katrin Ceja Erythrocyte distribution width (RBC) [Ratio] 12.2 % Normal 11.0-15.0 [facility] Comment on above: Performed By: #### C BC #### [facility] [address] [place] [address] [address] Katrin Ceja Hematocrit (Bld) [Volume fraction] 33.8 % Critically low 36.0-48.0 [facility] Comment on above: Performed By: #### C BC #### [facility] [address] [place] [address] [address] Katrin Ceja Hemoglobin (Bld) [Mass/Vol] 11.9 g/dL Critically low 12.0-16.0 [facility] Comment on above: Performed By: #### C BC #### [facility] [address] [place] [address] [address] Katrin Ceja IG # 0.04 10e3/ul Critically high 0.00-0.03 [facility] Comment on above: Performed By: #### C BC #### [facility] [address] [place] [address] [address] Katrin Ceja IG % 0.4 % Normal 0.0-0.5 [facility] Comment on above: Performed By: #### C BC #### [facility] [address] [place] [address] Dr. Katrin Ceja LYMPH # 3.0 103/ul Normal 1.2-3.8 [facility] Comment on above: Performed By: #### C BC #### [facility] [address] [place] [address] Dr. Katrin Ceja Lymphocytes/100 WBC (Bld) 28.4 % Normal 20.5-60.0 [facility] Comment on above: Performed By: #### C BC #### [facility] [address] [place] [address] Dr. Katrin Ceja MANUAL DIFF REQ NO Normal [facility] Comment on above: Performed By: #### C BC #### [facility] [address] [place] [address] Dr. Katrin Ceja MCH (RBC) [Entitic mass] 29.8 pg Normal 26.7-34.0 [facility] Comment on above: Performed By: #### C BC #### [facility] [address] [place] [address] Dr. Katrin Ceja MCHC (RBC) [Mass/Vol] 35.2 g/dL Normal 29.9-35.2 [facility] Comment on above: Performed By: #### C BC #### [facility] [address] [place] [address] Dr. Katrin Ceja MCV (RBC) [Entitic vol] 84.7 fL Normal 81.0-99.0 [facility] Comment on above: Performed By: #### C BC #### [facility] [address] [address] [address] Katrin Ceja MONO # 0.7 103/ul Normal 0.3-0.8 [facility] Comment on above: Performed By: #### C BC #### [facility] [address] [place] [address] Dr. Katrin Ceja Monocytes/100 WBC (Bld) 6.6 % Normal 1.7-12.0 [facility] Comment on above: Performed By: #### C BC #### [facility] [address] [place] [address] Dr. Katrin Ceja NEUT # 6.4 103/ul Normal 1.4-6.5 [facility] Comment on above: Performed By: #### C BC #### [facility] [address] [place] [address] Dr. Katrin Ceja Neutrophils/100 WBC (Bld) 61.3 % Normal 43.0-75.0 [facility] Comment on above: Performed By: #### C BC #### [facility] [address] [place] [address] Dr. Katrin Ceja Platelet mean volume (Bld) [Entitic vol] 8.9 fL Critically low 9.5-13.5 [facility] Comment on above: Performed By: #### C BC #### [facility] [address] [place] [address] Dr. Katrin Ceja PLT 299 103/ul Normal 150-450 [facility] Comment on above: Performed By: #### C BC #### [facility] [address] [place] [address] Dr. Katrin Ceja RBC 3.99 106/ul Critically low 4.20-5.40 [facility] Comment on above: Performed By: #### C BC #### [facility] [address] [place] [address] Dr. Katrin Ceja WBC 10.4 103/ul Normal 4.0-11.0 [facility] Comment on above: Performed By: #### C BC #### [facility] [address] [place] [address] Dr. Katrin Ceja D-DIMERon 02-08-2022 D-DIMER 0.59 mg/L FEU Normal <=0.59 [facility] Comment on above: Performed By: #### L GARRETT, CMP #### [facility] [address] [place] [address] Dr. Katrin Ceja D-DIMER COMMENTS SEE BELOW Normal [facility] Comment on above: Result Comment: Incr eases [...] Performed By: #### L GARRETT, CMP #### [facility] [address] [place] [address] Dr. Katrin Ceja PROF CHEM 8 (BAS METB)on Anion gap [Moles/Vol] 12.8 mmol/L Normal [facility] Comment on above: Performed By: #### C BC #### [facility] [address] [place] [address] Dr. Katrin Ceja Calcium [Mass/Vol] 8.7 mg/dL Normal 8.5-10.1 [facility] Comment on above: Performed By: #### C BC #### [facility] [address] [place] [address] Dr. Katrin Ceja Chloride [Moles/Vol] 102 mmol/L Normal 98-107 [facility] Comment on above: Performed By: #### C BC #### [facility] [address] [place] [address] Dr. Katrin Ceja CO2 [Moles/Vol] 25.9 mmol/L Normal 21.0-32.0 [facility] Comment on above: Performed By: #### C BC #### [facility] [address] [place] [address] Dr. Katrin Ceja Creatinine [Mass/Vol] 0.70 mg/dL Normal 0.55-1.02 [facility] Comment on above: Performed By: #### C BC #### [facility] [address] [address] [address] Katrin Ceja EGFR-AF CZECH >60 Normal >=60 [facility] Comment on above: Performed By: #### C BC #### [facility] [address] [address] [address] Katrin Ceja EGFR-NON AF CZECH >60 Normal >=60 [facility] Comment on above: Performed By: #### C BC #### [facility] [address] [address] [address] Katrin Ceja Glucose [Mass/Vol] 95 mg/dL Normal 74-106 [facility] Comment on above: Performed By: #### C BC #### [facility] [address] [address] [address] Katrin Ceja Potassium [Moles/Vol] 2.7 mmol/L Critically low 3.5-5.1 [facility] Comment on above: Result Comment: Test Repeated. Critical Value Verified Performed By: #### C BC #### [facility] [address] [address] [address] Katrin Ceja Sodium [Moles/Vol] 136 mmol/L Normal 136-145 [facility] Comment on above: Performed By: #### C BC #### [facility] [address] [address] [address] Katrin Ceja Urea nitrogen [Mass/Vol] 3.0 mg/dL Critically low 7.0-18.0 [facility] Comment on above: Performed By: #### C BC #### [facility] [address] [address] [address] Katrin Ceja Urea nitrogen/Creatinine [Mass ratio] 4.3 mg/mg Normal [facility] Comment on above: Performed By: #### C BC #### [facility] [address] [address] [address] Katrin Ceja XR CHEST 2 Von [...] by: RIVER SAID Date: 2022-02-08 04:19 Normal [facility] LIPID PROFILEon 12-18-2021 CHOL-HDL RATIO NORM SEE BELOW Normal [facility] Comment on above: Result Comment: 3.3 - 4.4 LOW RISK 4.4 - 7.1 AVERAGE RISK 7.1 - 11.0 MODERATE RISK >11.0 HIGH RISK Performed By: #### L IPID, LIVER #### [facility] [address] [address] [address] Katrin Ceja Cholesterol [Mass/Vol] 126 mg/dL Normal <=200 [facility] Comment on above: Performed By: #### L IPID, LIVER #### [facility] [address] [address] [address] Katrin Ceja Cholesterol in HDL [Mass/Vol] 31 mg/dL Critically low 40-60 [facility] Comment on above: Performed By: #### L IPID, LIVER #### [facility] [address] [address] [address] Katrin Ceja Cholesterol in LDL [Mass/Vol] 59.2 mg/dL Normal [facility] Comment on above: Performed By: #### L IPID, LIVER #### [facility] [address] [address] [address] Katrin Ceja Cholesterol.total/Cho lesterol in HDL [Mass ratio] 4.1 {ratio} Normal [facility] Comment on above: Performed By: #### L IPID, LIVER #### [facility] [address] [address] [address] Katrin Ceja HDL NORMAL > or = 60 mg/dl - LO W CARDIOVASCULAR RISK <40 mg/dl - HIGH CARDIOVASCULAR RISK Normal [facility] Comment on above: Performed By: #### L IPID, LIVER #### [facility] [address] [place] [address] Dr. Katrin Ceja LDL CALC NORMAL SEE BELOW Normal [facility] Comment on above: Result Comment: <100 mg/dl OPTIMAL 100 - 129 mg/dl NEAR OR ABOVE OPTIMAL 130 - 159 mg/dl BORDERLINE HIGH 160 - 189 mg/dl HIGH >190 mg/dl VERY HIGH Performed By: #### L IPID, LIVER #### [facility] [address] [place] [address] Dr. Katrin Ceja Triglyceride [Mass/Vol] 179 mg/dL Critically high <=150 [facility] Comment on above: Performed By: #### L IPID, LIVER #### [facility] [address] [place] [address] Dr. Katrin Ceja VLDL CALC 35.8 mg/dL Normal [facility] Comment on above: Performed By: #### L IPID, LIVER #### [facility] [address] [place] [address] Dr. Katrin Ceja LIVER PROFILEon 12-18-2021 Albumin [Mass/Vol] 3.6 g/dL Normal 3.4-5.0 [facility] Comment on above: Performed By: #### L IPID, LIVER #### [facility] [address] [place] [address] Dr. Katrin Ceja Albumin/Globulin [Mass ratio] 0.8 {ratio} Normal [facility] Comment on above: Performed By: #### L IPID, LIVER #### [facility] [address] [place] [address] Dr. Katrin Ceja ALP [Catalytic activity/Vol] 196 U/L Critically high 46-116 [facility] Comment on above: Performed By: #### L IPID, LIVER #### [facility] [address] [place] [address] Dr. Katrin Ceja ALT [Catalytic activity/Vol] 51 U/L Normal 14-59 [facility] Comment on above: Performed By: #### L IPID, LIVER #### [facility] [address] [place] [address] Dr. Katrin Ceja AST [Catalytic activity/Vol] 22 U/L Normal 15-37 [facility] Comment on above: Performed By: #### L IPID, LIVER #### [facility] [address] [place] [address] Dr. Katrin Ceja BILI, CONJUGATED 0.1 mg/dL Normal 0.0-0.2 [facility] Comment on above: Performed By: #### L IPID, LIVER #### [facility] [address] [place] [address] Dr. Katrin Ceja Bilirubin [Mass/Vol] 0.4 mg/dL Normal 0.2-1.0 [facility] Comment on above: Performed By: #### L IPID, LIVER #### [facility] [address] [place] [address] Dr. Katrin Ceja Globulin (S) [Mass/Vol] 4.4 g/dL Normal [facility] Comment on above: Performed By: #### L IPID, LIVER #### [facility] [address] [place] [address] Dr. Katrin Ceja Protein [Mass/Vol] 8.0 g/dL Normal 6.4-8.2 [facility] Comment on above: Performed By: #### L IPID, LIVER #### [facility] [address] [place] [address] Dr. Katrin Ceja XR FOOT RT MIN [...] 00:19 Normal [facility] PROF 14(COMP METB)on 022 Albumin [Mass/Vol] 3.6 g/dL Normal 3.4-5.0 [facility] Comment on above: Performed By: #### L IPID, CMP #### [facility] [address] [address] [address] Katrin Ceja Albumin/Globulin [Mass ratio] 0.8 {ratio} Normal [facility] Comment on above: Performed By: #### L IPID, CMP #### [facility] [address] [address] [address] Katrin Ceja ALP [Catalytic activity/Vol] 209 U/L Critically high 46-116 [facility] Comment on above: Performed By: #### L IPID, CMP #### [facility] [address] [address] [address] Katrin Ceja ALT [Catalytic activity/Vol] 65 U/L Critically high 14-59 [facility] Comment on above: Performed By: #### L IPID, CMP #### [facility] [address] [address] [address] Katrin Ceja Anion gap [Moles/Vol] 15.7 mmol/L Normal [facility] Comment on above: Performed By: #### L IPID, CMP #### [facility] [address] [address] [address] Katrin Ceja AST [Catalytic activity/Vol] 31 U/L Normal 15-37 [facility] Comment on above: Performed By: #### L IPID, CMP #### [facility] [address] [address] [address] Katrin Ceja Bilirubin [Mass/Vol] 0.2 mg/dL Normal 0.2-1.3 [facility] Comment on above: Performed By: #### L IPID, CMP #### [facility] [address] [address] [address] Katrin Ceja Calcium [Mass/Vol] 8.8 mg/dL Normal 8.5-10.1 [facility] Comment on above: Performed By: #### L IPID, CMP #### [facility] [address] [address] [address] Katrin Ceja Chloride [Moles/Vol] 105 mmol/L Normal 98-107 [facility] Comment on above: Performed By: #### L IPID, CMP #### [facility] [address] [place] [address] Dr. Katrin Ceja CO2 [Moles/Vol] 21.3 mmol/L Critically low 22.0-30.0 [facility] Comment on above: Performed By: #### L IPID, CMP #### [facility] [address] [place] [address] Dr. Katrin Ceja Creatinine [Mass/Vol] 0.72 mg/dL Normal 0.52-1.04 [facility] Comment on above: Performed By: #### L IPID, CMP #### [facility] [address] [place] [address] Dr. Katrin Ceja EGFR-AF CZECH >60 Normal >=60 [facility] Comment on above: Performed By: #### L IPID, CMP #### [facility] [address] [place] [address] Dr. Katrin Ceja EGFR-NON AF CZECH >60 Normal >=60 [facility] Comment on above: Performed By: #### L IPID, CMP #### [facility] [address] [place] [address] Dr. Katrin Ceja Globulin (S) [Mass/Vol] 4.3 g/dL Normal [facility] Comment on above: Performed By: #### L IPID, CMP #### [facility] [address] [place] [address] Dr. Katrin Ceja Glucose [Mass/Vol] 99 mg/dL Normal 74-106 [facility] Comment on above: Performed By: #### L IPID, CMP #### [facility] [address] [place] [address] Dr. Katrin Ceja Potassium [Moles/Vol] 4.0 mmol/L Normal 3.4-5.0 [facility] Comment on above: Performed By: #### L IPID, CMP #### [facility] [address] [place] [address] Dr. Katrin Ceja Protein [Mass/Vol] 7.9 g/dL Normal 6.1-8.2 [facility] Comment on above: Performed By: #### L IPID, CMP #### [facility] [address] [address] [address] Katrin Ceja Sodium [Moles/Vol] 138 mmol/L Normal 137-145 [facility] Comment on above: Performed By: #### L IPID, CMP #### [facility] [address] [address] [address] Katrin Ceja Urea nitrogen [Mass/Vol] 13.0 mg/dL Normal 7.0-18.0 [facility] Comment on above: Performed By: #### L IPID, CMP #### [facility] [address] [place] [address] Dr. Katrin Ceja Urea nitrogen/Creatinine [Mass ratio] 18.1 mg/mg Normal [facility] Comment on above: Performed By: #### L IPID, CMP #### [facility] [address] [place] [address] Dr. Katrin Ceja XR HUMERUS RT MIN [...] by: TRAY NAVA Date: 2021-10-17 01:46 Normal [facility] XR SHOULDER RT 2V or >on XR SHOULDER RT 2V or > EXAM: XR SHOULDER RT 2V or > HISTORY: Pain right arm pain following fall. COMPARISON: None. TECHNIQUE: Standard 3 views of the right shoulder. FINDINGS: No acute or intrinsic osseous, articular or soft tissue abnormality is seen. IMPRESSION: No acute findings. Electronically authenticated by: TRAY NAVA Date: 2021-10-17 01:45 Normal [facility] XR WRIST RT MIN 3 Von [...] TRAY NAVA Date: 2021-10-17 01:44 Normal [facility] AMYLASEon 09-18-2021 Amylase [Catalytic activity/Vol] 34 U/L Normal 31-110 [facility] Comment on above: Performed By: #### P REG #### [facility] [address] [place] [address] Dr. Katrin Ceja CBC AUTO DIFFon 09-18-2021 BASO # 0.0 103/ul Normal 0.0-0.1 [facility] Comment on above: Performed By: #### C BC #### [facility] [address] [place] [address] Dr. Katrin Ceja Basophils/100 WBC (Bld) 0.3 % Normal 0.2-2.0 [facility] Comment on above: Performed By: #### C BC #### [facility] [address] [place] [address] Dr. Katrin Ceja EO # 0.2 103/ul Normal 0.0-0.7 [facility] Comment on above: Performed By: #### C BC #### [facility] [address] [place] [address] Dr. Katrin Ceja Eosinophils/100 WBC (Bld) 2.4 % Normal 0.9-7.0 [facility] Comment on above: Performed By: #### C BC #### [facility] [address] [place] [address] Dr. Katrin Ceja Erythrocyte distribution width (RBC) [Ratio] 12.5 % Normal 11.0-15.0 [facility] Comment on above: Performed By: #### C BC #### [facility] [address] [place] [address] Dr. Katrin Ceja Hematocrit (Bld) [Volume fraction] 37.4 % Normal 36.0-48.0 [facility] Comment on above: Performed By: #### C BC #### [facility] [address] [address] [address] Katrin Ceja Hemoglobin (Bld) [Mass/Vol] 12.3 g/dL Normal 12.0-16.0 [facility] Comment on above: Performed By: #### C BC #### [facility] [address] [place] [address] Dr. Katrin Ceja IG # 0.05 10e3/ul Critically high 0.00-0.03 [facility] Comment on above: Performed By: #### C BC #### [facility] [address] [place] [address] Dr. Katrin Ceja IG % 0.5 % Normal 0.0-0.5 [facility] Comment on above: Performed By: #### C BC #### [facility] [address] [place] [address] Dr. Katrin Ceja LYMPH # 3.1 103/ul Normal 1.2-3.8 [facility] Comment on above: Performed By: #### C BC #### [facility] [address] [place] [address] Dr. Katrin Ceja Lymphocytes/100 WBC (Bld) 31.7 % Normal 20.5-60.0 [facility] Comment on above: Performed By: #### C BC #### [facility] [address] [place] [address] Dr. Katrin Ceja MANUAL DIFF REQ NO Normal [facility] Comment on above: Performed By: #### C BC #### [facility] [address] [place] [address] Dr. Katrin Ceja MCH (RBC) [Entitic mass] 28.9 pg Normal 26.7-34.0 [facility] Comment on above: Performed By: #### C BC #### [facility] [address] [place] [address] Dr. Katrin Ceja MCHC (RBC) [Mass/Vol] 32.9 g/dL Normal 29.9-35.2 [facility] Comment on above: Performed By: #### C BC #### [facility] [address] [id number] Katrin Ceja MCV (RBC) [Entitic vol] 88.0 fL Normal 81.0-99.0 [facility] Comment on above: Performed By: #### C BC #### [facility] [address] [place] [address] Dr. Katrin Ceja MONO # 0.7 103/ul Normal 0.3-0.8 [facility] Comment on above: Performed By: #### C BC #### [facility] [address] [place] [address] Dr. Katrin Ceja Monocytes/100 WBC (Bld) 6.7 % Normal 1.7-12.0 [facility] Comment on above: Performed By: #### C BC #### [facility] [address] [place] [address] Dr. Katrin Ceja NEUT # 5.7 103/ul Normal 1.4-6.5 [facility] Comment on above: Performed By: #### C BC #### [facility] [address] [place] [address] Dr. Katrin Ceja Neutrophils/100 WBC (Bld) 58.4 % Normal 43.0-75.0 [facility] Comment on above: Performed By: #### C BC #### [facility] [address] [place] [address] Dr. Katrin Ceja Platelet mean volume (Bld) [Entitic vol] 8.8 fL Critically low 9.5-13.5 [facility] Comment on above: Performed By: #### C BC #### [facility] [address] [place] [address] Dr. Katrin Ceja PLT 265 103/ul Normal 150-450 [facility] Comment on above: Performed By: #### C BC #### [facility] [address] [place] [address] Dr. Katrin Ceja RBC 4.25 106/ul Normal 4.20-5.40 [facility] Comment on above: Performed By: #### C BC #### [facility] [address] [place] [address] Dr. Katrin Ceja WBC 9.7 103/ul Normal 4.0-11.0 [facility] Comment on above: Performed By: #### C BC #### [facility] [address] [place] [address] ABD/PELV W CONon 09-19-[address] ABD/PELV W CON EXAMINATION: CT ABD/PELV W CON HISTORY: ABDOMINAL DISTENSION (GASEOUS) COMPARISON: [...] 03:51 Normal [facility] ER URINE PROFILEon 2 Bilirubin Ql (U) Negative Normal NEGATIVE [facility] Comment on above: Performed By: #### C BC #### [facility] [address] [place] [address] Dr. Katrin Ceja Clarity (U) CLEAR Normal CLEAR [facility] Comment on above: Performed By: #### C BC #### [facility] [address] [place] [address] Dr. Katrin Ceja Color (U) LT. YELLOW Normal YELLOW [facility] Comment on above: Performed By: #### C BC #### [facility] [address] [place] [address] Dr. Katrin ANN A micrscopic examination will be performed if indicated. Normal [facility] Comment on above: Performed By: #### C BC #### [facility] [address] [place] [address] Dr. Katrin Ceja Glucose Ql (U) Negative Normal NEGATIVE [facility] Comment on above: Performed By: #### C BC #### [facility] [address] [place] [address] Dr. Katrin Ceja Hemoglobin Ql (U) SMALL Abnormal NEGATIVE [facility] Comment on above: Performed By: #### C BC #### [facility] [address] [place] [address] Dr. Katrin Ceja Ketones Ql (U) Negative Normal NEGATIVE [facility] Comment on above: Performed By: #### C BC #### [facility] [address] [place] [address] Dr. Katrin Ceja LEUKOCYTES Negative Normal NEGATIVE [facility] Comment on above: Performed By: #### C BC #### [facility] [address] [place] [address] Dr. Katrin Ceja Nitrite Ql (U) Negative Normal NEGATIVE [facility] Comment on above: Performed By: #### C BC #### [facility] [address] [place] [address] Dr. Katrin Ceja pH (U) 7.5 [pH] Normal 5-9 [facility] Comment on above: Performed By: #### C BC #### [facility] [address] [place] [address] Dr. Katrin Ceja SPEC GRAVITY 1.010 Normal 1.005-<=1.025 [facility] Comment on above: Performed By: #### C BC #### [facility] [address] [place] [address] Dr. Katrin Ceja UA PROTEIN Negative Normal NEGATIVE/ TRACE [facility] Comment on above: Performed By: #### C BC #### [facility] [address] [address] [address] Katrin Ceja UR MICRO IND INDICATED Normal [facility] Comment on above: Performed By: #### C BC #### [facility] [address] [place] [address] Dr. Katrin Ceja Urobilinogen Qn (U) 0.2 {Jeannie'U}/dL Normal 0.2 - 1. 0 [facility] Comment on above: Performed By: #### C BC #### [facility] [address] [place] [address] Dr. Katrin Ceja LIPASEon 09-18-2021 Lipase [Catalytic activity/Vol] 81.0 U/L Normal 23.0-300.0 [facility] Comment on above: Performed By: #### P REG #### [facility] [address] [place] [address] Dr. Katrin Ceja URon 09-18-2021 , QUAL Negative Normal NEGATIVE [facility] Comment on above: Performed By: #### C BC #### [facility] [address] [place] [address] Dr. Katrin Ceja PROF 14(COMP METB)on 022 Albumin [Mass/Vol] 3.2 g/dL Critically low 3.5-5.0 [facility] Comment on above: Performed By: #### P REG #### [facility] [address] [place] [address] Dr. Katrin Ceja Albumin/Globulin [Mass ratio] 0.8 {ratio} Normal [facility] Comment on above: Performed By: #### P REG #### [facility] [address] [place] [address] Dr. Katrin Ceja ALP [Catalytic activity/Vol] 216 U/L Critically high 38-126 [facility] Comment on above: Performed By: #### P REG #### [facility] [address] [place] [address] Dr. Katrin Ceja ALT [Catalytic activity/Vol] 109 U/L Critically high 9-52 [facility] Comment on above: Performed By: #### P REG #### [facility] [address] [address] [address] Katrin Ceja Anion gap [Moles/Vol] 10.5 mmol/L Normal [facility] Comment on above: Performed By: #### P REG #### [facility] [address] [address] [address] Katrin Ceja AST [Catalytic activity/Vol] 66 U/L Critically high 14-36 [facility] Comment on above: Performed By: #### P REG #### [facility] [address] [address] [address] Katrin Ceja Bilirubin [Mass/Vol] 0.2 mg/dL Normal 0.2-1.3 [facility] Comment on above: Performed By: #### P REG #### [facility] [address] [address] [address] Katrin Ceja Calcium [Mass/Vol] 8.3 mg/dL Critically low 8.4-10.2 [facility] Comment on above: Performed By: #### P REG #### [facility] [address] [address] [address] Katrin Ceja Chloride [Moles/Vol] 103 mmol/L Normal 98-107 [facility] Comment on above: Performed By: #### P REG #### [facility] [address] [address] [address] Katrin Ceja CO2 [Moles/Vol] 26.2 mmol/L Normal 22.0-30.0 [facility] Comment on above: Performed By: #### P REG #### [facility] [address] [address] [address] Katrin Ceja Creatinine [Mass/Vol] 0.81 mg/dL Normal 0.52-1.04 [facility] Comment on above: Performed By: #### P REG #### [facility] [address] [address] [address] Katrin Ceja EGFR-AF CZECH >60 Normal >=60 [facility] Comment on above: Performed By: #### P REG #### [facility] [address] [address] [address] Katrin Ceja EGFR-NON AF CZECH >60 Normal >=60 [facility] Comment on above: Performed By: #### P REG #### [facility] [address] [address] [address] Katrin Ceja Globulin (S) [Mass/Vol] 4.1 g/dL Normal [facility] Comment on above: Performed By: #### P REG #### [facility] [address] [address] [address] Katrin Ceja Glucose [Mass/Vol] 90 mg/dL Normal 74-106 [facility] Comment on above: Performed By: #### P REG #### [facility] [address] [place] [address] Dr. Katrin Ceja Potassium [Moles/Vol] 3.7 mmol/L Normal 3.4-5.0 [facility] Comment on above: Performed By: #### P REG #### [facility] [address] [place] [address] Dr. Katrin Ceja Protein [Mass/Vol] 7.3 g/dL Normal 6.1-8.2 [facility] Comment on above: Performed By: #### P REG #### [facility] [address] [place] [address] Dr. Katrin Ceja Sodium [Moles/Vol] 136 mmol/L Critically low 137-145 [facility] Comment on above: Performed By: #### P REG #### [facility] [address] [place] [address] Dr. Katrin Ceja Urea nitrogen [Mass/Vol] 5.0 mg/dL Critically low 7.0-17.0 [facility] Comment on above: Performed By: #### P REG #### [facility] [address] [place] [address] Dr. Katrin Ceja Urea nitrogen/Creatinine [Mass ratio] 6.2 mg/mg Normal [facility] Comment on above: Performed By: #### P REG #### [facility] [address] [place] [address] Dr. Katrin Ceja URINE MICROSCOPIC ONLYon BACTERIA NONE SEEN Normal NONE SEEN [facility] Comment on above: Performed By: #### C BC #### [facility] [address] [place] [address] Dr. Katrin Ceja Bacteria identified Cx Nom (U) NOT INDICATED Normal [facility] Comment on above: Performed By: #### C BC #### [facility] [address] [place] [address] Dr. Katrin Ceja CAST NONE SEEN Normal NONE SEEN [facility] Comment on above: Performed By: #### C BC #### [facility] [address] [place] [address] Dr. Katrin Ceja Crystals LM Nom (Urine sed) NONE SEEN Normal NONE SEEN [facility] Comment on above: Performed By: #### C BC #### [facility] [address] [place] [address] Dr. Katrin Ceja Epithelial cells LM Ql (Urine sed) FEW Abnormal NONE SEEN /RARE [facility] Comment on above: Performed By: #### C BC #### [facility] [address] [place] [address] Dr. Katrin Ceja MUCOUS NONE SEEN Normal NONE SEEN [facility] Comment on above: Performed By: #### C BC #### [facility] [address] [place] [address] Dr. Katrin Ceja RBC NONE SEEN Abnormal 0-2 [facility] Comment on above: Performed By: #### C BC #### [facility] [address] [place] [address] Dr. Katrin Ceja WBC NONE SEEN Normal NONE SEEN [facility] General Comment on above: Performed By: #### C BC #### [facility] [address] [place] [address] Dr. Katrin Ceja XR ABD FLAT UP_PA [...] 02:00 Normal [facility] CBC AUTO DIFFon 07-18-2021 BASO # 0.0 103/ul Normal 0.0-0.1 [facility] Comment on above: Performed By: #### C BC #### [facility] [address] [address] [address] Katrin Ceja Basophils/100 WBC (Bld) 0.3 % Normal 0.2-2.0 [facility] Comment on above: Performed By: #### C BC #### [facility] [address] [address] [address] Katrin Ceja EO # 0.2 103/ul Normal 0.0-0.7 [facility] Comment on above: Performed By: #### C BC #### [facility] [address] [address] [address] Katrin Ceja Eosinophils/100 WBC (Bld) 1.7 % Normal 0.9-7.0 [facility] Comment on above: Performed By: #### C BC #### [facility] [address] [place] [address] Dr. Katrin Ceja Erythrocyte distribution width (RBC) [Ratio] 13.1 % Normal 11.0-15.0 [facility] Comment on above: Performed By: #### C BC #### [facility] [address] [place] [address] Dr. Katrin Ceja Hematocrit (Bld) [Volume fraction] 42.0 % Normal 36.0-48.0 [facility] Comment on above: Performed By: #### C BC #### [facility] [address] [place] [address] Dr. Katrin Ceja Hemoglobin (Bld) [Mass/Vol] 13.7 g/dL Normal 12.0-16.0 [facility] Comment on above: Performed By: #### C BC #### [facility] [address] [address] [address] Katrin Ceja IG # 0.07 10e3/ul Critically high 0.00-0.03 [facility] Comment on above: Performed By: #### C BC #### [facility] [address] [address] [address] Katrin Ceja IG % 0.6 % Critically high 0.0-0.5 [facility] Comment on above: Performed By: #### C BC #### [facility] [address] [place] [address] Dr. Katrin Ceja LYMPH # 2.9 103/ul Normal 1.2-3.8 [facility] Comment on above: Performed By: #### C BC #### [facility] [address] [place] [address] Dr. Katrin Ceja Lymphocytes/100 WBC (Bld) 27.1 % Normal 20.5-60.0 [facility] Comment on above: Performed By: #### C BC #### [facility] [address] [place] [address] Dr. Katrin Ceja MANUAL DIFF REQ NO Normal [facility] Comment on above: Performed By: #### C BC #### [facility] [address] [place] [address] Dr. Katrin Ceja MCH (RBC) [Entitic mass] 29.3 pg Normal 26.7-34.0 [facility] Comment on above: Performed By: #### C BC #### [facility] [address] [place] [address] Dr. Katrin Ceja MCHC (RBC) [Mass/Vol] 32.6 g/dL Normal 29.9-35.2 [facility] Comment on above: Performed By: #### C BC #### [facility] [address] [place] [address] Dr. Katrin Ceja MCV (RBC) [Entitic vol] 89.7 fL Normal 81.0-99.0 [facility] Comment on above: Performed By: #### C BC #### [facility] [address] [place] [address] Dr. Katrin Ceja MONO # 0.9 103/ul Critically high 0.3-0.8 [facility] Comment on above: Performed By: #### C BC #### [facility] [address] [place] [address] Dr. Katrin Ceja Monocytes/100 WBC (Bld) 8.2 % Normal 1.7-12.0 [facility] Comment on above: Performed By: #### C BC #### [facility] [address] [place] [address] Dr. Katrin Ceja NEUT # 6.7 103/ul Critically high 1.4-6.5 [facility] Comment on above: Performed By: #### C BC #### [facility] [address] [place] [address] Dr. Katrin Ceja Neutrophils/100 WBC (Bld) 62.1 % Normal 43.0-75.0 [facility] Comment on above: Performed By: #### C BC #### [facility] [address] [place] [address] Dr. Katrin Ceja Platelet mean volume (Bld) [Entitic vol] 9.7 fL Normal 9.5-13.5 [facility] Comment on above: Performed By: #### C BC #### [facility] [address] [place] [address] Dr. Katrin Ceja PLT 334 103/ul Normal 150-450 [facility] Comment on above: Performed By: #### C BC #### [facility] [address] [place] [address] Dr. Katrin Ceja RBC 4.68 106/ul Normal 4.20-5.40 [facility] Comment on above: Performed By: #### C BC #### [facility] [address] [place] [address] Dr. Katrin Ceja WBC 10.8 103/ul Normal 4.0-11.0 [facility] Comment on above: Performed By: #### C BC #### [facility] [address] [place] [address] Dr. Katrin Ceja GLYCOHEMOGLOBIN A1Con 01-04- 2022 ADA RECOMMENDATION ADA THERAPEUTIC TARG ET 6.0 - 7.0 ACTION SUGGESTED > 7.0 Normal [facility] Comment on above: Performed By: #### C BC #### [facility] [address] [address] [address] Katrin Ceja Glucose [Mass/Vol] 105 mg/dL Normal [facility] Comment on above: Performed By: #### C BC #### [facility] [address] [address] [address] Katrin Ceja HbA1c (Bld) [Mass fraction] 5.3 % Normal <=6.0 [facility] Comment on above: Performed By: #### C BC #### [facility] [address] [address] [address] Katrin Ceja LIPID PROFILEon 07-18-2021 CHOL-HDL RATIO NORM SEE BELOW Normal [facility] Comment on above: Result Comment: 3.3 - 4.4 LOW RISK 4.4 - 7.1 AVERAGE RISK 7.1 - 11.0 MODERATE RISK >11.0 HIGH RISK Performed By: #### L IPID, CMP #### [facility] [address] [address] [address] Katrin Ceja Cholesterol [Mass/Vol] 302 mg/dL Critically high <=200 [facility] Comment on above: Performed By: #### L IPID, CMP #### [facility] [address] [address] [address] Katrin Ceja Cholesterol in HDL [Mass/Vol] 39 mg/dL Normal [facility] Comment on above: Performed By: #### L IPID, CMP #### [facility] [address] [address] [address] Katrin Ceja Cholesterol in LDL [Mass/Vol] 207.0 mg/dL Normal [facility] Comment on above: Performed By: #### L IPID, CMP #### [facility] [address] [address] [address] Katrin Ceja Cholesterol.total/Cho lesterol in HDL [Mass ratio] 7.7 {ratio} Normal [facility] Comment on above: Performed By: #### L IPID, CMP #### [facility] [address] [address] [address] Katrin Ceja HDL NORMAL > or = 60 mg/dl - LO W CARDIOVASCULAR RISK <40 mg/dl - HIGH CARDIOVASCULAR RISK Normal [facility] Comment on above: Performed By: #### L IPID, CMP #### [facility] [address] [address] [address] Katrin Ceja LDL CALC NORMAL SEE BELOW Normal [facility] Comment on above: Result Comment: <100 mg/dl OPTIMAL 100 - 129 mg/dl NEAR OR ABOVE OPTIMAL 130 - 159 mg/dl BORDERLINE HIGH 160 - 189 mg/dl HIGH >190 mg/dl VERY HIGH Performed By: #### L IPID, CMP #### [facility] [address] [address] [address] Katrin Ceja Triglyceride [Mass/Vol] 280 mg/dL Critically high <=150 [facility] Comment on above: Performed By: #### L IPID, CMP #### [facility] [address] [address] [address] Katrin Ceja VLDL CALC 56.0 mg/dL Normal [facility] Comment on above: Performed By: #### L IPID, CMP #### [facility] [address] [address] [address] Katrin Ceja PROF 14(COMP METB)on 022 Albumin [Mass/Vol] 3.5 g/dL Normal 3.5-5.0 [facility] Comment on above: Performed By: #### L IPID, CMP #### [facility] [address] [address] [address] Katrin Ceja Albumin/Globulin [Mass ratio] 0.7 {ratio} Normal [facility] Comment on above: Performed By: #### L IPID, CMP #### [facility] [address] [address] [address] Katrin Ceja ALP [Catalytic activity/Vol] 291 U/L Critically high 38-126 [facility] Comment on above: Performed By: #### L IPID, CMP #### [facility] [address] [address] [address] Katrin Ceja ALT [Catalytic activity/Vol] 174 U/L Critically high 9-52 [facility] Comment on above: Performed By: #### L IPID, CMP #### [facility] [address] [address] [address] Katrin Ceja Anion gap [Moles/Vol] 15.3 mmol/L Normal [facility] Comment on above: Performed By: #### L IPID, CMP #### [facility] [address] [address] [address] Katrin Ceja AST [Catalytic activity/Vol] 97 U/L Critically high 14-36 [facility] Comment on above: Performed By: #### L IPID, CMP #### [facility] [address] [place] [address] Dr. Katrin Ceja Bilirubin [Mass/Vol] 0.4 mg/dL Normal 0.2-1.3 [facility] Comment on above: Performed By: #### L IPID, CMP #### [facility] [address] [address] [address] Katrin Ceja Calcium [Mass/Vol] 9.3 mg/dL Normal 8.4-10.2 [facility] Comment on above: Performed By: #### L IPID, CMP #### [facility] [address] [place] [address] Dr. Katrin Ceja Chloride [Moles/Vol] 99 mmol/L Normal 98-107 [facility] Comment on above: Performed By: #### L IPID, CMP #### [facility] [address] [address] [address] Katrin Ceja CO2 [Moles/Vol] 24.1 mmol/L Normal 22.0-30.0 [facility] Comment on above: Performed By: #### L IPID, CMP #### [facility] [address] [place] [address] Dr. Katrin Ceja Creatinine [Mass/Vol] 0.65 mg/dL Normal 0.52-1.04 [facility] Comment on above: Performed By: #### L IPID, CMP #### [facility] [address] [address] [address] Katrin Ceja EGFR-AF CZECH >60 Normal >=60 [facility] Comment on above: Performed By: #### L IPID, CMP #### [facility] [address] [address] [address] Katrin Ceja EGFR-NON AF CZECH >60 Normal >=60 [facility] Comment on above: Performed By: #### L IPID, CMP #### [facility] [address] [address] [address] Katrin Ceja Globulin (S) [Mass/Vol] 5.0 g/dL Normal [facility] Comment on above: Performed By: #### L IPID, CMP #### [facility] [address] [address] [address] Katrin Ceja Glucose [Mass/Vol] 86 mg/dL Normal 74-106 [facility] Comment on above: Performed By: #### L IPID, CMP #### [facility] [address] [address] [address] Katrin Ceja Potassium [Moles/Vol] 4.4 mmol/L Normal 3.4-5.0 [facility] Comment on above: Performed By: #### L IPID, CMP #### [facility] [address] [address] [address] Katrin Ceja Protein [Mass/Vol] 8.5 g/dL Critically high 6.1-8.2 [facility] Comment on above: Performed By: #### L IPID, CMP #### [facility] [address] [address] [address] Katrin Ceja Sodium [Moles/Vol] 134 mmol/L Critically low 137-145 [facility] Comment on above: Performed By: #### L IPID, CMP #### [facility] [address] [address] [address] Katrin Ceja Urea nitrogen [Mass/Vol] 8.0 mg/dL Normal 7.0-17.0 [facility] Comment on above: Performed By: #### L IPID, CMP #### [facility] [address] [place] [address] Dr. Katrin Ceja Urea nitrogen/Creatinine [Mass ratio] 12.3 mg/mg Normal [facility] Comment on above: Performed By: #### L IPID, CMP #### [facility] [address] [place] [address] Dr. Ktarin Ceja AMYLASEon 05-01-2021 AMYL <30 Critically low 31-110 [facility] Comment on above: Performed By: #### P REG #### [facility] [address] [place] [address] Dr. Katrin Ceja CBC AUTO DIFFon 05-01-2021 BASO # 0.0 103/ul Normal 0.0-0.1 [facility] Comment on above: Performed By: #### L IPID, CMP #### [facility] [address] [place] [address] Dr. Katrin Ceja Basophils/100 WBC (Bld) 0.3 % Normal 0.2-2.0 [facility] Comment on above: Performed By: #### L IPID, CMP #### [facility] [address] [place] [address] Dr. Katrin Ceja EO # 0.1 103/ul Normal 0.0-0.7 [facility] Comment on above: Performed By: #### L IPID, CMP #### [facility] [address] [place] [address] Dr. Katrin Ceja Eosinophils/100 WBC (Bld) 0.4 % Critically low 0.9-7.0 [facility] Comment on above: Performed By: #### L IPID, CMP #### [facility] [address] [place] [address] Dr. Katrin Ceja Erythrocyte distribution width (RBC) [Ratio] 13.0 % Normal 11.0-15.0 [facility] Comment on above: Performed By: #### L IPID, CMP #### [facility] [address] [place] [address] Dr. Katrin Ceja Hematocrit (Bld) [Volume fraction] 37.7 % Normal 36.0-48.0 [facility] Comment on above: Performed By: #### L IPID, CMP #### [facility] [address] [place] [address] Dr. Katrin Ceja Hemoglobin (Bld) [Mass/Vol] 12.5 g/dL Normal 12.0-16.0 [facility] Comment on above: Performed By: #### L IPID, CMP #### [facility] [address] [place] [address] Dr. Katrin Ceja IG # 0.09 10e3/ul Critically high 0.00-0.03 [facility] Comment on above: Performed By: #### L IPID, CMP #### [facility] [address] [place] [address] Dr. Katrin Ceja IG % 0.6 % Critically high 0.0-0.5 [facility] Comment on above: Performed By: #### L IPID, CMP #### [facility] [address] [place] [address] Dr. Katrin Ceja LYMPH # 1.9 103/ul Normal 1.2-3.8 [facility] Comment on above: Performed By: #### L IPID, CMP #### [facility] [address] [place] [address] Dr. Katrin Ceja Lymphocytes/100 WBC (Bld) 12.1 % Critically low 20.5-60.0 [facility] Comment on above: Performed By: #### L IPID, CMP #### [facility] [address] [place] [address] Dr. Katrin Ceja MANUAL DIFF REQ NO Normal [facility] Comment on above: Performed By: #### L IPID, CMP #### [facility] [address] [place] [address] Dr. Katrin Ceja MCH (RBC) [Entitic mass] 28.8 pg Normal 26.7-34.0 [facility] Comment on above: Performed By: #### L IPID, CMP #### [facility] [address] [place] [address] Dr. Katrin Ceja MCHC (RBC) [Mass/Vol] 33.2 g/dL Normal 29.9-35.2 [facility] Comment on above: Performed By: #### L IPID, CMP #### [facility] [address] [place] [address] Dr. Katrin Ceja MCV (RBC) [Entitic vol] 86.9 fL Normal 81.0-99.0 [facility] Comment on above: Performed By: #### L IPID, CMP #### [facility] [address] [place] [address] Dr. Katrin Ceja MONO # 1.1 103/ul Critically high 0.3-0.8 [facility] Comment on above: Performed By: #### L IPID, CMP #### [facility] [address] [place] [address] Dr. Katrin Ceja Monocytes/100 WBC (Bld) 7.1 % Normal 1.7-12.0 [facility] Comment on above: Performed By: #### L IPID, CMP #### [facility] [address] [place] [address] Dr. Katrin Ceja NEUT # 12.3 103/ul Critically high 1.4-6.5 [facility] Comment on above: Performed By: #### L IPID, CMP #### [facility] [address] [place] [address] Dr. Katrin Ceja Neutrophils/100 WBC (Bld) 79.5 % Critically high 43.0-75.0 [facility] Comment on above: Performed By: #### L IPID, CMP #### [facility] [address] [place] [address] Dr. Katrin Ceja Platelet mean volume (Bld) [Entitic vol] 8.7 fL Critically low 9.5-13.5 [facility] Comment on above: Performed By: #### L IPID, CMP #### [facility] [address] [place] [address] Dr. Katrin Ceja PLT 329 103/ul Normal 150-450 [facility] Comment on above: Performed By: #### L IPID, CMP #### [facility] [address] [place], [place] [address] Dr. Katrin Ceja RBC 4.34 106/ul Normal 4.20-5.40 [facility] Comment on above: Performed By: #### L IPID, CMP #### [facility] [address] [place], [place] [address] Dr. Katrin Ceja WBC 15.5 103/ul Critically high 4.0-11.0 [facility] Comment on above: Performed By: #### L IPID, CMP #### [facility] [address] [place], [place] [address] ABD/PELV W CONon [...] by: HILDA RAHMAN Date: 2021-05-01 20:30 Normal [facility] LIPASEon 05-01-2021 Lipase [Catalytic activity/Vol] 64.0 U/L Normal 23.0-300.0 [facility] Comment on above: Performed By: #### P REG #### [facility] [address] [place] [address] Dr. Katrin Ceja LIVER PROFILEon 05-01-2021 Albumin [Mass/Vol] 3.3 g/dL Critically low 3.5-5.0 [facility] Comment on above: Performed By: #### L IPID, CMP #### [facility] [address] [place] [address] Dr. Katrin Ceja Albumin/Globulin [Mass ratio] 0.6 {ratio} Normal [facility] Comment on above: Performed By: #### L IPID, CMP #### [facility] [address] [place] [address] Dr. Katrin Ceja ALP [Catalytic activity/Vol] 412 U/L Critically high 38-126 [facility] Comment on above: Performed By: #### L IPID, CMP #### [facility] [address] [place] [address] Dr. Katrin Ceja ALT [Catalytic activity/Vol] 124 U/L Critically high 9-52 [facility] Comment on above: Performed By: #### L IPID, CMP #### [facility] [address] [place] [address] Dr. Katrin Ceja AST [Catalytic activity/Vol] 61 U/L Critically high 14-36 [facility] Comment on above: Performed By: #### L IPID, CMP #### [facility] [address] [address] [address] Katrin Ceja BILI, CONJUGATED 0.2 mg/dL Normal 0.0-0.3 [facility] Comment on above: Performed By: #### L IPID, CMP #### [facility] [address] [address] [address] Katrin Ceja Bilirubin [Mass/Vol] 0.4 mg/dL Normal 0.2-1.3 [facility] Comment on above: Performed By: #### L IPID, CMP #### [facility] [address] [address] [address] Katrin Ceja Globulin (S) [Mass/Vol] 5.1 g/dL Normal [facility] Comment on above: Performed By: #### L IPID, CMP #### [facility] [address] [place] [address] Dr. Katrin Ceja Protein [Mass/Vol] 8.4 g/dL Critically high 6.1-8.2 [facility] Comment on above: Performed By: #### L IPID, CMP #### [facility] [address] [address] [address] Katrin Ceja PREG HCG QUALon 05-01-2021 , QUAL Negative Normal NEGATIVE [facility] Comment on above: Performed By: #### P REG #### [facility] [address] [address] [address] Katrin Ceja PROF CHEM 8 (BAS METB)on Anion gap [Moles/Vol] 17.1 mmol/L Normal [facility] Comment on above: Performed By: #### P REG #### [facility] [address] [address] [address] Katrin Ceja Calcium [Mass/Vol] 8.9 mg/dL Normal 8.4-10.2 [facility] Comment on above: Performed By: #### P REG #### [facility] [address] [address] [address] Katrin Ceja Chloride [Moles/Vol] 100 mmol/L Normal 98-107 [facility] Comment on above: Performed By: #### P REG #### [facility] [address] [address] [address] Katrin Ceja CO2 [Moles/Vol] 21.1 mmol/L Critically low 22.0-30.0 [facility] Comment on above: Performed By: #### P REG #### [facility] [address] [address] [address] Katrin Ceja Creatinine [Mass/Vol] 0.78 mg/dL Normal 0.52-1.04 [facility] Comment on above: Performed By: #### P REG #### [facility] [address] [address] [address] Katrin Ceja EGFR-AF CZECH >60 Normal >=60 [facility] Comment on above: Performed By: #### P REG #### [facility] [address] [address] [address] Katrin Ceja EGFR-NON AF CZECH >60 Normal >=60 [facility] Comment on above: Performed By: #### P REG #### [facility] [address] [address] [address] Katrin Ceja Glucose [Mass/Vol] 97 mg/dL Normal 74-106 [facility] Comment on above: Performed By: #### P REG #### [facility] [address] [address] [address] Katrin Ceja Potassium [Moles/Vol] 4.2 mmol/L Normal 3.4-5.0 [facility] Comment on above: Performed By: #### P REG #### [facility] [address] [address] [address] Katrin Ceja Sodium [Moles/Vol] 134 mmol/L Critically low 137-145 [facility] Comment on above: Performed By: #### P REG #### [facility] [address] [address] [address] Katrin Ceja Urea nitrogen [Mass/Vol] 6.0 mg/dL Critically low 7.0-17.0 [facility] Comment on above: Performed By: #### P REG #### [facility] [address] [place] [address] Dr. Katrin Ceja Urea nitrogen/Creatinine [Mass ratio] 7.7 mg/mg Normal [facility] Comment on above: Performed By: #### P REG #### [facility] [address] [place] [address] Dr. Katrin Ceja CBC AUTO DIFFon 04-29-2021 BASO # 0.1 103/ul Normal 0.0-0.1 [facility] Comment on above: Performed By: #### L IPID, CMP #### [facility] [address] [place] [address] Dr. Katrin Ceja Basophils/100 WBC (Bld) 0.4 % Normal 0.2-2.0 [facility] Comment on above: Performed By: #### L IPID, CMP #### [facility] [address] [place] [address] Dr. Katrin Ceja EO # 0.2 103/ul Normal 0.0-0.7 [facility] Comment on above: Performed By: #### L IPID, CMP #### [facility] [address] [place] [address] Dr. Katrin Ceja Eosinophils/100 WBC (Bld) 1.7 % Normal 0.9-7.0 [facility] Comment on above: Performed By: #### L IPID, CMP #### [facility] [address] [place] [address] Dr. Katrin Ceja Erythrocyte distribution width (RBC) [Ratio] 12.9 % Normal 11.0-15.0 [facility] Comment on above: Performed By: #### L IPID, CMP #### [facility] [address] [place] [address] Dr. Katrin Ceja Hematocrit (Bld) [Volume fraction] 39.0 % Normal 36.0-48.0 [facility] Comment on above: Performed By: #### L IPID, CMP #### [facility] [address] [place] [address] Dr. Katrin Ceja Hemoglobin (Bld) [Mass/Vol] 12.9 g/dL Normal 12.0-16.0 [facility] Comment on above: Performed By: #### L IPID, CMP #### [facility] [address] [place] [address] Dr. Katrin Ceja IG # 0.08 10e3/ul Critically high 0.00-0.03 [facility] Comment on above: Performed By: #### L IPID, CMP #### [facility] [address] [place] [address] Dr. Katrin Ceja IG % 0.6 % Critically high 0.0-0.5 [facility] Comment on above: Performed By: #### L IPID, CMP #### [facility] [address] [place] [address] Dr. Katrin Ceja LYMPH # 3.2 103/ul Normal 1.2-3.8 [facility] Comment on above: Performed By: #### L IPID, CMP #### [facility] [address] [place] [address] Dr. Katrin Ceja Lymphocytes/100 WBC (Bld) 24.4 % Normal 20.5-60.0 [facility] Comment on above: Performed By: #### L IPID, CMP #### [facility] [address] [place] [address] Dr. Katrin Ceja MANUAL DIFF REQ NO Normal [facility] Comment on above: Performed By: #### L IPID, CMP #### [facility] [address] [place] [address] Dr. Katrin Ceja MCH (RBC) [Entitic mass] 29.1 pg Normal 26.7-34.0 [facility] Comment on above: Performed By: #### L IPID, CMP #### [facility] [address] [place] [address] Dr. Katrin Ceja MCHC (RBC) [Mass/Vol] 33.1 g/dL Normal 29.9-35.2 [facility] Comment on above: Performed By: #### L IPID, CMP #### [facility] [address] [place] [address] Dr. Katrin Ceja MCV (RBC) [Entitic vol] 88.0 fL Normal 81.0-99.0 [facility] Comment on above: Performed By: #### L IPID, CMP #### [facility] [address] [place] [address] Dr. Katrin Ceja MONO # 1.2 103/ul Critically high 0.3-0.8 [facility] Comment on above: Performed By: #### L IPID, CMP #### [facility] [address] [place] [address] Dr. Katrin Ceja Monocytes/100 WBC (Bld) 9.2 % Normal 1.7-12.0 [facility] Comment on above: Performed By: #### L IPID, CMP #### [facility] [address] [place] [address] Dr. Katrin Ceja NEUT # 8.3 103/ul Critically high 1.4-6.5 [facility] Comment on above: Performed By: #### L IPID, CMP #### [facility] [address] [place] [address] Dr. Katrin Ceja Neutrophils/100 WBC (Bld) 63.7 % Normal 43.0-75.0 [facility] Comment on above: Performed By: #### L IPID, CMP #### [facility] [address] [place] [address] Dr. Katrin Ceja Platelet mean volume (Bld) [Entitic vol] 9.2 fL Critically low 9.5-13.5 [facility] Comment on above: Performed By: #### L IPID, CMP #### [facility] [address] [place] [address] Dr. Katrin Ceja PLT 384 103/ul Normal 150-450 [facility] Comment on above: Performed By: #### L IPID, CMP #### [facility] [address] [place] [address] Dr. Katrin Ceja RBC 4.43 106/ul Normal 4.20-5.40 [facility] Comment on above: Performed By: #### L IPID, CMP #### [facility] [address] [address] [address] Katrin Ceja WBC 13.1 103/ul Critically high 4.0-11.0 [facility] Comment on above: Performed By: #### L IPID, [facility] #### [facility] [address] [address] ABD/PELV W CONon 04-29-20 CT ABD/PELV W CON EXAMINATION: CT ABD/PELV W CON HISTORY: ABDOMINAL DISTENSION (GASEOUS) COMPARISON: [...] by: Lorenzo LAN Date: 2021-04-29 02:49 Normal [facility] LACTATE/LACTIC ACIDon 2020 Lactate [Moles/Vol] 1.2 mmol/L Normal 0.7-2.0 [facility] Comment on above: Performed By: #### C BC #### [facility] [address] [place] [address] Dr. Katrin Ceja PROF 14(COMP METB)on 021 Albumin [Mass/Vol] 3.4 g/dL Critically low 3.5-5.0 [facility] Comment on above: Performed By: #### C BC #### [facility] [address] [place] [address] Dr. Katrin Ceja Albumin/Globulin [Mass ratio] 0.7 {ratio} Normal [facility] Comment on above: Performed By: #### C BC #### [facility] [address] [place] [address] Dr. Katrin Ceja ALP [Catalytic activity/Vol] 359 U/L Critically high 38-126 [facility] Comment on above: Performed By: #### C BC #### [facility] [address] [place] [address] Dr. Katrin Ceja ALT [Catalytic activity/Vol] 193 U/L Critically high 9-52 [facility] Comment on above: Performed By: #### C BC #### [facility] [address] [place] [address] Dr. Katrin Ceja Anion gap [Moles/Vol] 13.3 mmol/L Normal [facility] Comment on above: Performed By: #### C BC #### [facility] [address] [place], [place] [address] Dr. Katrin Ceja AST [Catalytic activity/Vol] 115 U/L Critically high 14-36 [facility] Comment on above: Performed By: #### C BC #### [facility] [address] [place] [address] Dr. Katrin Ceja Bilirubin [Mass/Vol] 0.5 mg/dL Normal 0.2-1.3 [facility] Comment on above: Performed By: #### C BC #### [facility] [address] [place] [address] Dr. Katrin Ceja Calcium [Mass/Vol] 9.5 mg/dL Normal 8.4-10.2 [facility] Comment on above: Performed By: #### C BC #### [facility] [address] [place] [address] Dr. Katrin Ceja Chloride [Moles/Vol] 101 mmol/L Normal 98-107 [facility] Comment on above: Performed By: #### C BC #### [facility] [address] [place] [address] Dr. Katrin Ceja CO2 [Moles/Vol] 23.7 mmol/L Normal 22.0-30.0 [facility] Comment on above: Performed By: #### C BC #### [facility] [address] [place] [address] Dr. Katrin Ceja Creatinine [Mass/Vol] 0.83 mg/dL Normal 0.52-1.04 [facility] Comment on above: Performed By: #### C BC #### [facility] [address] [place] [address] Dr. Katrin Ceja EGFR-AF CZECH >60 Normal >=60 [facility] Comment on above: Performed By: #### C BC #### [facility] [address] [place] [address] Dr. Katrin Ceja EGFR-NON AF CZECH >60 Normal >=60 [facility] Comment on above: Performed By: #### C BC #### [facility] [address] [place] [address] Dr. Katrin Ceja Globulin (S) [Mass/Vol] 5.1 g/dL Normal [facility] Comment on above: Performed By: #### C BC #### [facility] [address] [place] [address] Dr. Katrin Ceja Glucose [Mass/Vol] 102 mg/dL Normal 74-106 [facility] Comment on above: Performed By: #### C BC #### [facility] [address] [address] [address] Katrin Ceja Potassium [Moles/Vol] 4.0 mmol/L Normal 3.4-5.0 [facility] Comment on above: Performed By: #### C BC #### [facility] [address] [address] [address] Katrin Ceja Protein [Mass/Vol] 8.5 g/dL Critically high 6.1-8.2 [facility] Comment on above: Performed By: #### C BC #### [facility] [address] [address] [address] Katrin Ceja Sodium [Moles/Vol] 134 mmol/L Critically low 137-145 [facility] Comment on above: Performed By: #### C BC #### [facility] [address] [address] [address] Katrin Ceja Urea nitrogen [Mass/Vol] 6.0 mg/dL Critically low 7.0-17.0 [facility] Comment on above: Performed By: #### C BC #### [facility] [address] [address] [address] Katrin Ceja Urea nitrogen/Creatinine [Mass ratio] 7.2 mg/mg Normal [facility] Comment on above: Performed By: #### C BC #### [facility] [address] [address] [address] Katrin Ceja XR CHEST 1 Von [...] by: HILDA GU Date: 2021-04-28 23:45 Normal [facility] Acetaminophen (Tylenol) Leve kit 03-22-2019 Acetaminophen [Mass/Vol] <10 Normal 10.0-30.[address] [facility] Comment on above: Performed By: #### 1 4581-3, 29064-8, 29758-1, 61743-0v0, 60792-6, 29729-2 #### [facility] [address] [place], [place] Alcohol (Ethanol) Levelon Ethanol [Mass/Vol] mg/dL Normal 0.00-0.[address] [facility] Comment on above: Performed By: #### 1 4581-3, 94634-8, 23977-1, 57222-5n5, 36691-7, 01221-9 #### [address] CBC with Differentialon Basophils (Bld) [#/Vol] 0.10 thou/mcL Normal 0.00-0.[address] [facility] Comment on above: Performed By: #### 5 7021-8 #### [address] Basophils/100 WBC (Bld) 0.7 % Normal 0.0-2.[address] [facility] Comment on above: Performed By: #### 5 7021-8 #### [address] Eosinophils (Bld) [#/Vol] 0.40 thou/mcL Normal 0.00-0.[address] [facility] Comment on above: Performed By: #### 5 7021-8 #### [address] Eosinophils/100 WBC (Bld) 3.7 % Normal 0.0-7.[address] [facility] Comment on above: Performed By: #### 5 7021-8 #### [address] Erythrocyte distribution width (RBC) [Entitic vol] 12.6 % Normal 11.0-14.[address] [facility] Comment on above: Performed By: #### 5 7021-8 #### [address] Hematocrit (Bld) [Volume fraction] 38.5 % Normal 35.0-45.[address] [facility] Comment on above: Performed By: #### 5 7021-8 #### [address] Hemoglobin (Bld) [Mass/Vol] 13.3 g/dL Normal 12.0-16.[address] [facility] Comment on above: Performed By: #### 7021-8 #### [address] Lymphocytes (Bld) [#/Vol] 3.10 thou/mcL Normal 1.00-4.[address] [facility] Comment on above: Performed By: #### 70-8 #### [address] Lymphocytes/100 WBC (Bld) 30.1 % Normal 22.0-44.[address] [facility] Comment on above: Performed By: #### 70-8 #### [address] MCH (RBC) [Entitic mass] 30.8 Picograms Normal 27.0-34.[address] [facility] Comment on above: Performed By: #### 7021-8 #### [address] MCHC (RBC) [Mass/Vol] 34.7 g/dL Normal 32.0-36.0 [facility] Comment on above: Performed By: #### 7021-8 #### [address] MCV (RBC) [Entitic vol] 88.8 fL Normal 80.0-97.[address] [facility] Comment on above: Performed By: #### 7021-8 #### [address] Monocytes (Bld) [#/Vol] 1.10 thou/mcL High 0.00-0.[address] [facility] Comment on above: Performed By: #### 7021-8 #### [address] Monocytes/100 WBC (Bld) 10.4 % Normal 0.0-12.[address] [facility] Comment on above: Performed By: #### 5 7021-8 #### [facility] [address] [place], [place] Neutrophils (Bld) [#/Vol] 5.60 thou/mcL Normal 1.80-7.[address] [facility] Comment on above: Performed By: #### 5 7021-8 #### [facility] [address] [place], [place] Neutrophils/100 WBC (Bld) 55.1 % Normal 40.0-70.[address] [facility] Comment on above: Performed By: #### 5 7021-8 #### [facility] [address] [place], [place] Platelet mean volume (Bld) [Entitic vol] 7.5 fL Normal 6.2-12.[address] [facility] Comment on above: Performed By: #### 5 7021-8 #### [facility] [address] [place], [place] Platelets (Bld) [#/Vol] 280 thou/mcL Normal 142-[address] [facility] Comment on above: Performed By: #### 5 7021-8 #### [facility] [address] [place], [place] RBC (Bld) [#/Vol] 4.33 million/mcL Normal 3.80-5.10 [facility] Comment on above: Performed By: #### 5 7021-8 #### [facility] [address], [place] WBC (Bld) [#/Vol] 10.2 thou/mcL Normal 4.6-10.2 [facility] Comment on above: Performed By: #### 5 7021-8 #### [facility] [address] [place], [place] Comprehensive Metabolic Pane kit 03-22-2019 Albumin [Mass/Vol] 4.2 g/dL Normal 3.5-4.[address] [facility] Comment on above: Performed By: #### 1 4581-3, 48174-7, 81794-5, 53108-8a9, 67320-2, 05693-8 #### [facility] [address] [place], [place] ALP [Catalytic activity/Vol] 96 Units/L High 32-[address] [facility] Comment on above: Performed By: #### 1 4581-3, 04487-2, 91449-2, 24354-6k2, 20333-4, 76206-7 #### [facility] [address] [place], [place] ALT [Catalytic activity/Vol] 25 Units/L Normal 14-[address] [facility] Comment on above: Performed By: #### 1 4581-3, 32836-0, 23811-2, 65815-9t4, 17628-7, 76736-6 #### [id number] [place], [place] Anion gap [Moles/Vol] 9.0 mmol/L Normal 6.0-18.0 [facility] Comment on above: Performed By: #### 1 4581-3, 29261-4, 73242-5, 73819-9y7, 23605-4, 47304-6 #### [facility] [address] [place], [place] AST [Catalytic activity/Vol] 24 Units/L Normal 15-[address] [facility] Comment on above: Performed By: #### 1 4581-3, 05122-2, 42271-9, 88619-3k9, 53686-0, 91142-7 #### [facility] [address] [place], [place] Bilirubin [Mass/Vol] 0.5 mg/dL Normal 0.3-1.2 [facility] Comment on above: Performed By: #### 1 4581-3, 97028-1, 13344-4, 90103-4g0, 45509-5, 90926-3 #### [facility] [address] [place], [place] Calcium [Mass/Vol] 8.9 mg/dL Normal 8.9-10.[address] [facility] Comment on above: Performed By: #### 1 4581-3, 92035-1, 20833-6, 44523-3x6, 45982-2, 32906-3 #### [facility] [address] [place], [place] Chloride [Moles/Vol] 107 mmol/L Normal 98-107 [facility] Comment on above: Performed By: #### 1 4581-3, 58657-0, 34329-9, 58788-0s8, 75732-3, 36609-9 #### [facility] [address] [place], [place] CO2 [Moles/Vol] 23 mmol/L Normal 22-32 [facility] Comment on above: Performed By: #### 1 4581-3, 60649-7, 62266-9, 76046-3q8, 72762-6, 84148-8 #### [facility] [address] [place], [place] Creatinine [Mass/Vol] 0.68 mg/dL Normal 0.60-1.[address] [facility] Comment on above: Performed By: #### 1 4581-3, 12487-4, 66159-4, 79984-0m9, 43697-2, 37703-2 #### [facility] [address] [place], [place] Glucose [Mass/Vol] 90 mg/dL Normal 70-[address] [facility] Comment on above: Result Comment: U pdated ADA Reference Range A normal fasting glucose concentration is less than 100 mg/dL. An impaired fasting glucose concentration is 100-125 mg/dL. A provisional diagnosis of diabetes mellitus can be made when a fasting glucose concentration is greater than 125 mg/dL. Performed By: #### 1 4581-3, 35847-6, 57120-6, 52083-4g5, 01208-9, 26024-1 #### [facility] [address] [place], [place] Potassium [Moles/Vol] 3.4 mmol/L Low 3.6-5.1 [facility] Comment on above: Performed By: #### 1 4581-3, 60816-7, 05908-0, 07015-2u9, 53839-7, 44815-7 #### [facility] [address] [place], [place] Protein [Mass/Vol] 7.4 g/dL Normal 6.1-7.[address] [facility] Comment on above: Performed By: #### 1 4581-3, 54330-7, 73723-1, 96180-5d0, 17562-0, 06320-0 #### [facility] [address] [place], [place] Sodium [Moles/Vol] 139 mmol/L Normal 136-[address] [facility] Comment on above: Performed By: #### 1 4581-3, 19518-6, 01966-1, 19700-7r6, 25652-8, 09452-5 #### [facility] [address] [place], [place] Urea nitrogen (BldV) [Mass/Vol] 17 mg/dL Normal 8-[address] [facility] Comment on above: Performed By: #### 1 4581-3, 30465-2, 20516-0, 31949-5b6, 96628-1, 20453-4 #### [facility] [address] [place], [place] Drug Abuse Screen 8 Urineon 03-22-2019 Barbiturates Screen Ql (U) Negative Normal [facility] Comment on above: Performed By: #### 1 2286-1 #### [facility] [address] [place], [place] Amphetamines Ql (U) Positive Abnormal [facility] Comment on above: Result Comment: Conf irmatory testing available upon request. Performed By: #### 1 2286-1 #### [facility] [address] [place], [place] Benzodiazepines cutoff Screen (U) [Mass/Vol] Negative Normal [facility] Comment on above: Performed By: #### 1 2286-1 #### [facility] [address] [place], [place] Cocaine Ql (U) Positive Abnormal [facility] Comment on above: Result Comment: Conf irmatory testing available upon request. Performed By: #### 1 2286-1 #### [facility] [address] [place], [place] Interpretation and review of laboratory results Negative Normal [facility] Comment on above: Performed By: #### 1 2286-1 #### [facility] [address] [place], [place] Methadone Screen Ql (U) Negative Normal NEGATIVE-NEGAT KAREN [facility] Comment on above: Performed By: #### 1 2286-1 #### [facility] [address] [place], [place] Opiates Screen Ql (U) Negative Normal [facility] Comment on above: Result Comment: INTE [...] 2286-1 #### [facility] [address] [place], [place] Tetrahydrocannabinol Screen Ql (U) Positive Abnormal [facility] Comment on above: Result Comment: Conf irmatory testing available upon request. Performed By: #### 1 2286-1 #### [facility] [address] [place], [place] ED Pat Jess 03-22-2019 ED Pat [facility] [address] [place] [address] [id number] Emergency Department Discharge Instructions JENNIFER AGUILLON , [...] [facility] Name JENNIFER AGUILLON MRN ([facility])-[id number] PLEASE READ THE FOLLOWING REGARDING YOUR MEDICATIONS [...] doses are changed, or new medications (including tint-vlv-zlzhzhd products) are added. If you have any [...] UNTIL YOU TALK TO YOUR DOCTOR None [facility] [address] [place], [place] [address] Emergency Department Discharge Instructions Name: JENNIFER AGUILLON [...] of those around you. [facility] offers many resources to help with smoking cessation. Call the [place] Tobacco Quit Line at 4-759-WZPVNOW ( ). High blood pressure: Your screening [...] deadly infections. Discuss this with your child's residential sales manager, or Public Health Department. Your family practice doctor can determine if you need pneumonia or flu vaccine. The [facility] Department can be reached at . Substance Abuse Program: Concerns with addiction to alcohol, benzodiazepines (Ativan or Xanax) and Opiates (Heroin, Percocet, OxyContin, Methadone or Fentanyl)? [facility] offers an inpatient Substance Abuse Program to help treat the symptoms associated with medical detoxification of addictive substances. The new program offers care for non- adults (18 and older) looking to break the chain to addictive chemicals. The Substance Abuse Program is a voluntary inpatient admission and it starts with a pre-screening phone call to a social economist. During the call, goals and objectives for recovery and how the patient will transition to outpatient care will be established. Please call [phone] to get help today. Domestic Violence: If you are a victim of domestic violence (physical, verbal, or emotional), you are not alone. Discuss this with your physician or a friend and call the [place] Domestic Violence Hotline or [place] Domestic Violence Hotline for assistance and support. [...] physician, call the Physician Referral Line at (793) 620-NCOD (4063). Suicide Hotline: Your mental and emotional well-being is important. If you are in a mental health crisis or are having thoughts of suicide, please call the [facility] suicide hotline, anytime day or night, at 5-146-545-IBAN (5134). Community Air Tucker: You may be contacted by your local fire department for a follow up visit from a community boiler tester. The community boiler tester can help with a home safety check; follow up care, and general home care management. Pharmacy Information: Below is a list of 24 hour pharmacies that we are aware of. We suggest that you call the specific pharmacy for their hours before traveling to a location. Hours may vary on holidays. [facility] [address] [address] [address], [place] [phone] [place], [place] [address] [phone] [address] [place], [place] [address] [phone] [address] [place], [place] [phone] [address] [place], [place] [phone] [address] [place], [place] [phone] [place] [address] [phone] Take all medications as directed. If you need prescription assistance, contact the following agencies: ?? Partnership for Prescription Assistance at or www.pparx.org ?? [place] at or www.ClearMomentumbestrx.org ?? www.GoodRx.com is a site with many valuable coupons Patient Education Materials JENNIFER AGUILLON has been given the following patient education materials: <><><><><><><><><><><> <><><><><><><><><><><> <><><><> Patient Visit Summary Signature JENNIFER AGUILLON has been given the following list of patient education materials, prescriptions and follow-up instructions: I ONIEL JENNIFER Benjamin, have received the above patient education materials/instructions and have verbalized understanding: Date Time Patient Signature Date Time Provider Signature Normal [facility] GFRaaon 03-22-2019 GFR/1.73 sq M predicted among blacks MDRD (S/P/Bld) [Vol rate/Area] mL/min/{1.73_m2} Normal [facility] Comment on above: Result Comment: The MDRD equation has not been validated for those over 70 years, women, patients with serious co-morbid conditions, or with extremes of body size, muscle mass of nutritional status. Performed By: #### 1 4581-3, 65160-0, 54311-5, 58231-6m1, 80537-7, 97522-2 #### [address] GFRbbon 03-22-2019 GFR/1.73 sq M predicted among non-blacks MDRD (S/P/Bld) [Vol rate/Area] mL/min/{1.73_m2} Normal [facility] Comment on above: Performed By: #### 1 4581-3, 09614-4, 71363-3, 11066-4n0, 27355-1, 77860-0 #### [facility] [address] [place], [place] Test Urineon 03-22 HCG ( test) Ql (U) Negative Normal [facility] Comment on above: Performed By: #### 2 106-3 #### [facility], [address] [place], [place] Salicylate Levelon 9 Salicylates [Mass/Vol] mg/dL Normal 2.8-30.[address] [facility] Comment on above: Performed By: #### 1 4581-3, 43123-7, 26007-2, 45787-6a5, 28500-2, 76776-3 #### [facility] [address] [place], [place] Medication Managementon 10-0 Medication Management [phone] [facility] [id number]#1.00 OTGTIFF Normal [facility] ED Clinical Summaryon 2017 ED Clinical Summary [facility] - Emergency [address] [place] [address] [id number] ed Clinical SummaryPERSON INFORMATIONName: JENNIFER AGUILLON Age: 22 Years Sex: FEMALEDOB: [birth year] MRN: Acct#:Visit Reason: Dental pain; Dental pain; DENTAL PAIN Arrival: 04/11/18 20:21:00 Discharge: 04/11/18 20:55:00LOS: 000 00:34 Check In: 04/11/18 20:21:00 Checkout:04/11/18 20:55:00Address:[address] [facility] [address]GJT: TAI WATTS INFORMATIONProvider Role Assigned UnassAlistair Henderson [...] 04/11/18 20:29:00.Dental caries, dental painHistory of Present [id number] white female presents to the emergency room [...] pain left lower jaw.Gastrointestinal symptoms: Nausea, vomiting.Health StatusAllergies:Allerg ic Reactions (Selected)Severity Not DocumentedIbuprofen- No reactions were [...] amount of caries and is tender to palpation..Cardiovascu lar: Regular rate and rhythm.Respiratory: Respirations are non-labored.Back: Normal range of motion.Musculoskeletal : Normal ROM, normal strength.Neurological: Alert and oriented [...] her poor dental state..Impression and PlanDiagnosisDental caries (WLJ26-CX K02.9, Discharge, Medical)Pain, dental (KJY07-HV K08.89, Discharge, Medical)PlanCondition: Improved, Stable.Disposition: Discharged: to home.Prescriptions: Launch prescriptionsPharmacy: traMADol 50 mg oral tablet (Prescribe): 50 mg = 1 tab(s), PO, q4hr, PRN: as needed for pain, 12 tab(s), 0 Refill(s)amoxicillin 500 mg oral capsule (Prescribe): 1,000 mg = 2 cap(s), PO, BID, 40 cap(s), 0 Refill(s).Patient was given the following educational materials: Dental Pain, Fayc-nr-Tgmk, Dental Caries, Adult, Xzzi-kn-Sztc, Dental Caries, Adult, Rkep-oz-Azhq, Dental Pain, Ejgp-fg-Zjfm.Follow up with: SOLOMON WATTS Within 3 to 5 days.Counseled: Patient, Regarding diagnosis, Regarding treatment plan, Regarding prescription, Patient indicated understanding of instructions.DISCHARGE INFORMATION:Discharge Disposition: HomeDischarge Location: HomePATIENT EDUCATION INFORMATIONInstruction s: Dental Caries, Adult, Neno-ci-Eyof; Dental Pain, Lkdp-kp-AbloMqhdzs-Up: With: Address: When:SOLOMON WATTS [facility] [place] [address] Business (1) Within 3 to 5 daysDIAGNOSIS:Dental caries; Dental pain; Pain, dentalPatient Understands: Yes - Patient/family/caregiv er verbalizes understanding of instructions givenComment: Normal [facility] ED Note - Physicianon 2017 ED Note - Physician Patient: DOMINIC AGUILLON : 22 years Sex: FEMALE : [birth year]Associated Diagnoses: Dental caries; Pain, dentalAuthor: Alistair Max InformationTime seen: Date & time 04/11/18 20:29:00.Dental caries, dental painHistory of Present Oqiwxtu31-dlva-buz white female presents to the emergency room [...] pain left lower jaw.Gastrointestinal symptoms: Nausea, vomiting.Health StatusAllergies:Allerg ic Reactions (Selected)Severity Not DocumentedIbuprofen- No reactions were [...] amount of caries and is tender to palpation..Cardiovascu lar: Regular rate and rhythm.Respiratory: Respirations are non-labored.Back: Normal range of motion.Musculoskeletal : Normal ROM, normal strength.Neurological: Alert and oriented [...] her poor dental state..Impression and PlanDiagnosisDental caries (OUJ29-EM K02.9, Discharge, Medical)Pain, dental (BGB05-UG K08.89, Discharge, Medical)PlanCondition: Improved, Stable.Disposition: Discharged: to home.Prescriptions: Launch prescriptionsPharmacy: traMADol 50 mg oral tablet (Prescribe): 50 mg = 1 tab(s), PO, q4hr, PRN: as needed for pain, 12 tab(s), 0 Refill(s)amoxicillin 500 mg oral capsule (Prescribe): 1,000 mg = 2 cap(s), PO, BID, 40 cap(s), 0 Refill(s).Patient was given the following educational materials: Dental Pain, Wgqi-jk-Mqjo, Dental Caries, Adult, Yogx-ag-Fmxq, Dental Caries, Adult, Tuxo-nf-Datv, Dental Pain, Pznv-gv-Yxpo.Follow up with: SOLOMON WATTS Within 3 to 5 days.Counseled: Patient, Regarding diagnosis, Regarding treatment plan, Regarding prescription, Patient indicated understanding of instructions.[Electron ically Signed on: 04/11/2018 20:42 EDT] Alistair Max MD[Verified on: 04/11/2018 20:42 EDT] Alistair Max MD [facility] ED Patient Education Noteon 04-11-2018 ED Patient Education Note Education MaterialsDentistryDent al CariesDental caries are spots of decay (cavities) in teeth. They are in the outer layer of your tooth (enamel). Treat them as soon as you can. If they are not treated, they can spread decay and lead to painful infection. Follow these instructions at home:General instructions? Take good care of your mouth and teeth. This keeps them healthy.? [place] your teeth 2 times a day. Use toothpaste with fluoride in it.? Floss your teeth once a day.? If your dentist prescribed an antibiotic medicine to treat an infection, take it as told. Do not stop taking the antibiotic even if your condition gets better.? Keep all follow-up visits as told by your dentist. This is important. This includes all cleanings.Preventing dental caries? [place] your teeth every morning and night. Use [...] Reviewed: 03/17/2017[employer] Patient Education ? 2017 [employer]Dental PainDental pain may be caused by [...] Reviewed: 06/27/2015[employer] Patient Education ? 2018 [employer] Normal [facility] ED Patient Summaryon 018 ED Patient Summary [facility] - Emergency [address] [place] [id number] pATIENT DISCHARGE INSTRUCTIONSPatient InformationName: JENNIFER AGUILLON Age: 22 YearsDate of : [birth year]MRN: [id number] For Visit: Dental pain; Dental pain; DENTAL PAINArrival Time: 04/11/18 20:21:00[facility]: [facility] Maryam WATTS Physician: Alistair Max MDComment:Visit Diagnosis:Diagnoses This Visit Dental caries (K02.9) Dental pain (K08.8) Dental pain ([id number]) Dental pain ([id number]) Pain, dental (K08.89)If you received any narcotics, [...] sign any legal documentsWith: Address: When:SOLOMON WATTS [address] [place], [place] [id number] Business (1) Within 3 to 5 daysMedication Information:The exam and treatment you received today in the [facility] were for an urgent problem and are not intended as complete care. It is important for you to follow up with a doctor, nurse practitioner, or physician?s painter assistant for ongoing care. If your symptoms [...] number so we can reach you if necessary.[facility] Emergency Department has provided you with a complete list of medications post discharge. Please inform your sifter and miller/provider of your visit and for further instruction on these medications. Any specific questions regarding your chronic medications and dosages should be discussed with your primary care physician(s) and/or pharmacist. New MedicationsPrinted Prescriptionsamoxicill in (amoxicillin 500 mg oral capsule) 2 cap Oral 2 times a day. Refills: 0.traMADol (traMADol 50 mg oral tablet) 1 tab(s) Oral Every 4 hours as needed as needed for pain. Refills: 0.Visit InformationAllergies:S ubstance Reaction Symptoms Type Commentsibuprofen DrugLatex Allergy Drugsulfa [...] mouth and teeth. This keeps them healthy.? [place] your teeth 2 times a day. Use toothpaste with fluoride in it.? Floss your teeth once a day.? If your dentist prescribed an antibiotic medicine to treat an infection, take it as told. Do not stop taking the antibiotic even if your condition gets better.? Keep all follow-up visits as told by your dentist. This is important. This includes all cleanings.Preventing dental caries? [place] your teeth every morning and night. Use [...] Reviewed: 03/17/2017[employer] Patient Education ? 2017 [employer].Dental PainDental pain may be caused by many [...] Reviewed: 06/27/2015[employer] Patient Education ? 2018 [employer]. Viruses or BacteriaWhat?s got you sick?Antibiotics only treat bacterial infections. Viral illnesses cannot be treated with antibiotics. When an antibiotic is not prescribed, ask your healthcare professional for tips on how to relieve symptoms and feel better. Usual CauseIllnessVirusesBac teria Antibiotic NeededCold/Runny Nose NOBronchitis/Chest Cold (in otherwise healthy children and adults) NOWhooping Cough YesFlu NOStrep Throat YesSore Throat (except strep) NOFluid in the middle ear (otitis media with effusion) NOUrinary Tract Infection YesAntibiotics Aren?t Always the Answerwww.cdc.gov/gets mart GET SMART Know When Antibiotics [place] Department of Health and Human ServicesCenters for Disease Control and Prevention March 2014 Normal [facility] Vital Signs Date Time Vital Sign Value Performing Clinician Facility 11-09-2024 12:040 Body height 167.64 cm [facility] 11-09-2024 12:05-0400 Body mass index (BMI) [Ratio] 35 kg/m2 [facility] 11-09-2024 12:05-040 Body temperature 97.4 [degF] [facility] 11-09-2024 12:050400 Body weight 98.42 kg [facility] 11-09-2024 12:05-0400 Diastolic blood pressure 93 mm[Hg] [facility] 11-09-2024 12:05-0400 Heart rate 76 /min [facility] 11-09-2024 12:05-0400 Respiratory rate 18 /min [facility] 11-09-2024 12:05-0400 SaO2% (BldA) [Mass fraction] 97 % [facility] 11-09-2024 12:05-0400 Systolic blood pressure 129 mm[Hg] [facility] 10-07-2024 12:18-0400 Body height 167.6 cm Jerry Verhoff PA-C Work Phone: [facility] Comment on above: stated 10-07-2024 12:18-0400 Body mass index (BMI) [Ratio] 34.38 kg/m2 Jerry Verhoff PA-C Work Phone: [facility] 10-07-2024 12:18-0400 Body weight 96.62 kg Jerry Verhoff PA-C Work Phone: [facility] 10-07-2024 12:18-0400 Diastolic blood pressure 84 mm[Hg] Jerry Verhoff PA-C Work Phone: [facility] 10-07-2024 12:18-0400 Heart rate 99 /min Jerry Verhoff PA-C Work Phone: [facility] 10-07-2024 12:18-0400 Respiratory rate 16 /min Jerry Verhoff PA-C Work Phone: [facility] 10-07-2024 12:18-0400 SaO2% (BldA) [Mass fraction] 99 % Jerry Verhoff PA-C Work Phone: [facility] 10-07-2024 12:18-0400 Systolic blood pressure 134 mm[Hg] Jerry Verhoff PA-C Work Phone: [facility] 09-24-2024 08:56-0400 Body height 167.6 cm Mandie Wiggins DPM Work Phone: [facility] 09-24-2024 08:56-0400 Body mass index (BMI) [Ratio] 33.73 kg/m2 Mandie Wiggins DPM Work Phone: [facility] 09-24-2024 08:56-0400 Body weight 94.8 kg Mandie Wiggins DPM Work Phone: [facility] 05-28-2024 14:27-0500 Body height 167.6 cm Radha Santoyo DO Work Phone: [facility] 05-28-2024 14:27-0500 Body mass index (BMI) [Ratio] 34.49 kg/m2 Radha Santoyo DO Work Phone: [facility] 05-28-2024 14:27-0500 Body weight 96.93 kg Radha Santoyo DO Work Phone: [facility] 05-28-2024 14:27-0500 Diastolic blood pressure 83 mm[Hg] Radha Santoyo DO Work Phone: [facility] 05-28-2024 14:27-0500 Heart rate 96 /min Radha Santoyo DO Work Phone: [facility] 05-28-2024 14:27-0500 SaO2% (BldA) [Mass fraction] 96 % Radha Santoyo DO Work Phone: [facility] 05-28-2024 14:27-0500 Systolic blood pressure 136 mm[Hg] Radha Santoyo DO Work Phone: [facility] 05-19-2024 09:42-0500 Body mass index (BMI) [Ratio] 35.02 kg/m2 Kenia Felix GI ASST Work Phone: [facility] 05-19-2024 09:42-0500 Body weight 98.43 kg Kenia Felix GI ASST Work Phone: [facility] 05-19-2024 09:42-0500 Diastolic blood pressure 74 mm[Hg] Kenia Washington GI ASST Work Phone: [facility] 05-19-2024 09:42-0500 Systolic blood pressure 128 mm[Hg] Kenia Washington GI ASST Work Phone: [facility] 04-01-2024 11:12-0400 Body height 167.6 cm Kenia Washington GI ASST Work Phone: [facility] 04-01-2024 11:12-0400 Body mass index (BMI) [Ratio] 34.02 kg/m2 Kenia Washington GI ASST Work Phone: [facility] 04-01-2024 11:12-0400 Body weight 95.62 kg Kenia Washington GI ASST Work Phone: [facility] 04-01-2024 11:12-0400 Diastolic blood pressure 82 mm[Hg] Kenia Washington GI ASST Work Phone: [facility] 04-01-2024 11:12-0400 Heart rate 95 /min Kenia Washington GI ASST Work Phone: [facility] 04-01-2024 11:12-0400 SaO2% (BldA) [Mass fraction] 98 % Kenia Washington GI ASST Work Phone: [facility] 04-01-2024 11:12-0400 Systolic blood pressure 138 mm[Hg] Kenia Washington GI ASST Work Phone: [facility] 03-19-2024 00:22-0400 Diastolic blood pressure 81 mm[Hg] [facility] 03-19-2024 00:22-0400 Heart rate 97 /min [facility] 03-19-2024 00:22-0400 Respiratory rate 18 /min [facility] 03-19-2024 00:22-0400 SaO2% (BldA) [Mass fraction] 98 % [facility] 03-19-2024 00:22-0400 Systolic blood pressure 113 mm[Hg] [facility] 03-18-2024 21:56-0400 Body temperature 98.2 [degF] [facility] 03-18-2024 21:54-0400 Body height 167.64 cm [facility] 03-18-2024 21:54-0400 Body weight 97.52 kg [facility] 03-05-2024 12:39-0400 Body height 167.64 cm [facility] 03-05-2024 12:39-0400 Body mass index (BMI) [Ratio] 37.1 kg/m2 [facility] 03-05-2024 12:39-0400 Body temperature 97.6 [degF] [facility] 03-05-2024 12:39-0400 Body weight 104.32 kg [facility] 03-05-2024 12:39-0400 Diastolic blood pressure 84 mm[Hg] [facility] 03-05-2024 12:39-0400 Heart rate 90 /min [facility] 03-05-2024 12:39-0400 Respiratory rate 18 /min [facility] 03-05-2024 12:39-0400 SaO2% (BldA) [Mass fraction] 99 % [facility] 03-05-2024 12:39-0400 Systolic blood pressure 118 mm[Hg] [facility] 02-27-2024 13:41-0400 Body mass index (BMI) [Ratio] 34.86 kg/m2 Kenia Washington GI ASST Work Phone: [facility] 02-27-2024 13:41-0400 Body weight 97.98 kg Kenia Washington GI ASST Work Phone: [facility] 02-27-2024 13:41-0400 Diastolic blood pressure 83 mm[Hg] Kenia Washington GI ASST Work Phone: [facility] 02-27-2024 13:41-0400 Heart rate 90 /min Kenia Washington GI ASST Work Phone: [facility] 02-27-2024 13:41-0400 SaO2% (BldA) [Mass fraction] 99 % Kenia Washington GI ASST Work Phone: [facility] 02-27-2024 13:41-0400 Systolic blood pressure 128 mm[Hg] Kenia Washington GI ASST Work Phone: [facility] 05-07-2023 13:15-0400 Body height 167.64 cm Key Patel Other [facility] Other 05-07-2023 13:15-0400 Body mass index (BMI) [Ratio] 37.54 kg/m2 Key Patel Other [facility] Other 05-07-2023 13:15-0400 Body temperature 97.8 [degF] Key Patel Other [facility] Other 05-07-2023 13:15-0400 Body weight 105.51 kg Key Patel Other [facility] Other 05-07-2023 13:15-0400 Respiratory rate 18 /min Key Mccallumney Other [facility] Other 05-07-2023 13:15-0400 SaO2% (BldA) [Mass fraction] 98 % Key Patel Other [facility] Other 11-08-2022 13:50-0400 Body height 167.64 cm Chase Saldana Other [facility] Other 11-08-2022 13:50-0400 Body mass index (BMI) [Ratio] 35.51 kg/m2 Chase Saldana Other [facility] Other 11-08-2022 13:50-0400 Body weight 99.79 kg Chase Saldana Other [facility] Other 04-26-2022 11:55-0400 Body height 167.64 cm Autumn Marley Other [facility] Other 04-26-2022 11:55-0400 Body mass index (BMI) [Ratio] 35.02 kg/m2 Autumn Marley Other [facility] Other 04-26-2022 11:55-0400 Body temperature 97.7 [degF] Autumn Marley Other [facility] Other 04-26-2022 11:55-0400 Body weight 98.43 kg Autumn Marley Other [facility] Other 04-26-2022 11:55-0400 Diastolic blood pressure 82 mm[Hg] Autumn Marley Other [facility] Other 04-26-2022 11:55-0400 Respiratory rate 18 /min Autumn Marley Other [facility] Other 04-26-2022 11:55-0400 SaO2% (BldA) [Mass fraction] 98 % Autumn Marley Other [facility] Other 04-26-2022 11:55-0400 Systolic blood pressure 122 mm[Hg] Autumn Marley Other [facility] Other 04-23-2022 10:50-0400 Body height 167.64 cm Autumn Marley Other [facility] Other 04-23-2022 10:50-0400 Body mass index (BMI) [Ratio] 33.89 kg/m2 Autumn Marley Other [facility] Other 10-10-2022 10:50-0400 Body temperature 97.8 [degF] Autumn Marley Other [facility] Other 04-23-2022 10:50-0400 Body weight 95.26 kg Autumn Marley Other [facility] Other 04-23-2022 10:50-0400 Respiratory rate 18 /min uAtumn Marley Other [facility] Other 04-23-2022 10:50-0400 SaO2% (BldA) [Mass fraction] 98 % Autumn Marley Other [facility] Other 03-27-2022 10:15-0400 Body height 167.64 cm Deb Simon Other [facility] Other 03-27-2022 10:15-0400 Body mass index (BMI) [Ratio] 34.38 kg/m2 Deb Simon Other [facility] Other 03-27-2022 10:15-0400 Body temperature 97.4 [degF] Deb Simon Other [facility] Other 03-27-2022 10:15-0400 Body weight 96.62 kg Deb Simon Other [facility] Other 03-27-2022 10:15-0400 Respiratory rate 18 /min Deb Simon Other [facility] Other 03-27-2022 10:15-0400 SaO2% (BldA) [Mass fraction] 96 % Deb Simon Other [facility] Other 04-05-2021 16:10-0400 Body height 167.64 cm Lucinda Salgado Other [facility] Other 04-05-2021 16:10-0400 Body mass index (BMI) [Ratio] 33.25 kg/m2 Lucinda Salgado Other [facility] Other 04-05-2021 16:10-0400 Body temperature 97.3 [degF] Lucinda Salgado Other [facility] Other 04-05-2021 16:10-0400 Body weight 93.44 kg Lucinda Salgado Other [facility] Other 04-05-2021 16:10-0400 Diastolic blood pressure 74 mm[Hg] Lucinda Salgado Other [facility] Other 04-05-2021 16:10-0400 Respiratory rate 18 /min Lucinda Salgado Other [facility] Other 04-05-2021 16:10-0400 SaO2% (BldA) [Mass fraction] 99 % Lucinda Salgado Other [facility] Other 04-05-2021 16:10-0400 Systolic blood pressure 111 mm[Hg] Lucinda Salgado Other [facility] Other Encounters Encounter Date Encounter Type Care Provider Facility Start: 12-30-2024 End: 12-31-2024 Emergency department patient visit [facility] Start: 12-21-2024 End: 12-21-2024 Emergency department patient visit [facility] Start: 11-23-2024 ambulatory Gerald Howard acility:[facility] Start: 11-09-2024 End: 11-09-2024 ambulatory NON STAFF [facility] Work Phone: Start: 11-09-2024 End: 11-09-2024 Patient encounter procedure [facility] Work Phone: Start: 10-23-2024 Registered Recurring [facility] Start: 10-07-2024 End: 10-07-2024 Office outpatient new 45 minutes Jerry Carrera PA-C Work Phone: [facility] Comment on above: Disorder of sacrum ( Primary Dx); Lumbar spondylosis; Spinal stenosis of lumbar region with neurogenic claudication Start: 10-07-2024 End: 10-07-2024 [facility] Start: 10-06-2024 End: 10-06-2024 ambulatory KENIA WASHINGTON Not Available Start: 09-24-2024 End: 09-24-2024 Bamboo flowsheet Mandie Wiggins DPM Work Phone: [facility] Start: 09-24-2024 End: 09-24-2024 Bamboo flowsheet Mandie Wiggins DPM Work Phone: [facility] Start: 09-24-2024 End: 09-24-2024 ambulatory MANDIE WIGGINS Not Available Start: 09-24-2024 End: 09-24-2024 Office outpatient visit 15 minutes Mandie Wiggins DPM Work Phone: [facility] Comment on above: Nail dystrophy (Prim ronal Dx); Ingrown nail; Pain of toe of left foot Start: 09-08-2024 End: 09-08-2024 Emergency department patient visit [facility] Start: 08-13-2024 End: 08-13-2024 Telephone encounter Kenia Washington NP Work Phone: [facility] Start: 08-12-2024 End: 08-12-2024 Emergency department patient visit [facility] Start: 07-27-2024 End: 07-27-2024 ambulatory Bob Garcia MD Facility:[facility] Start: 07-24-2024 End: 07-24-2024 Emergency department patient visit [facility] Start: 06-13-2024 End: 06-13-2024 Emergency department patient visit [facility] Start: 06-08-2024 End: 06-08-2024 ambulatory Bob Garcia MD Facility:[facility] Start: 05-28-2024 End: 05-28-2024 ambulatory [facility] Start: 05-28-2024 End: 05-28-2024 Office outpatient new [address] [facility] DO Work Phone: [facility] Comment on above: Chronic cough (Prima ry Dx); Mild intermittent asthma in adult without complication Start: 05-28-2024 End: 05-28-2024 ambulatory [facility] Start: 05-19-2024 End: 05-19-2024 Bamboo flowsheet Kenia Washington GI ASST Work Phone: [facility] Start: 05-19-2024 End: 05-19-2024 Bamboo flowsheet [facility] Washington [facility] Start: 05-19-2024 End: 05-19-2024 Office outpatient visit 25 minutes Kenia Washington GI ASST Work Phone: [facility] Comment on above: Seizures (CMS/HCC) ( Primary Dx); Mood disorder (CMS/HCC); Chronic migraine without aura without status migrainosus, not intractable (CMS/HCC); Chronic bilateral low back pain, unspecified whether sciatica present; Paresthesia of both lower extremities; Fatty infiltration of bone marrow Start: 05-19-2024 End: 05-19-2024 ambulatory KENIA WASHINGTON Not Available Start: 05-13-2024 End: 05-13-2024 Emergency department patient visit [facility] Start: 05-11-2024 End: 05-11-2024 Patient encounter procedure [facility] [place] Work Phone: Start: 05-11-2024 End: 05-11-2024 ambulatory NON STAFF [facility] Work Phone: Start: 2024 End: [address] [facility] Start: 04-30-2024 End: 04-30-2024 Emergency department patient visit [facility] Start: 04-28-2024 [facility]istered [facility] Start: 04-28-2024 End: 04-28-2024 ambulatory [facility] Start: 04-14-[address] [facility] Start: 04-01-2024 End: 04-01-2024 Bamboo flowsheet Kenia Felix GI ASST [facility] Start: 04-01-2024 End: 04-01-2024 Bamboo flowsheet Kenia Washington GI ASST Work Phone: [facility] Start: 04-01-2024 End: 04-01-2024 Office outpatient visit 25 minutes Kenia Felix GI ASST Work Phone: [facility] Comment on above: Seizures (CMS/HCC) ( Primary Dx); Mood disorder (CMS/HCC); Episodic migraine (CMS/HCC); Chronic bilateral low back pain, unspecified whether sciatica present; Paresthesia of both lower extremities; Anxiety Start: 04-01-2024 End: 04-01-2024 ambulatory KENIA WASHINGTON Not Available Start: 03-18-2024 End: 03-19-2024 Emergency department patient visit [facility] Work Phone: Start: 03-18-2024 End: 03-18-2024 ambulatory NON STAFF [facility] Work Phone: Start: 03-18-2024 End: 03-18-[address] [facility] [place] Work Phone: Start: 03-10-[address] [facility] Start: 03-06-2024 Registered Recurring [facility] Start: 03-05-2024 End: 03-05-2024 Bamboo flowsheet Kamla David DO Work Phone: [facility] Start: 03-05-2024 End: 03-05-2024 Bamboo flowsheet Kamla David DO Work Phone: [facility] [address] Start: 03-05-2024 End: 03-05-2024 ambulatory NON STAFF [facility] Work Phone: Start: 03-05-2024 End: 03-05-2024 Patient encounter procedure Kamla David DO Work Phone: [facility] Work Phone: Comment on above: Paresthesias (Primar y Dx) Start: 03-05-2024 End: 03-05-2024 ambulatory KAMLA DAVID Not Available Start: 02-27-2024 End: 02-27-2024 Office outpatient visit 25 minutes Kenia Washington GI ASST Work Phone: [facility] Comment on above: Seizures (CMS/HCC) ( Primary Dx); Mood disorder (CMS/HCC); Episodic migraine (CMS/HCC); Chronic bilateral low back pain, unspecified whether sciatica present; Paresthesia of both lower extremities Start: 02-27-2024 End: 02-27-2024 ambulatory KENIA WASHINGTON Not Available Start: 02-13-2024 End: 02-14-2024 Emergency department patient visit HALEIGH CHAVE[facility] Start: 02-12-2024 End: 02-12-2024 ambulatory SHAIKH KORIN Not Available Start: 02-07-2024 Registered Recurring Fi [facility] Start: 02-03-2024 End: 02-03-2024 ambulatory MANDIE WIGGINS Not Available Start: 01-30-2024 End: 01-30-2024 ambulatory KENIA WASHINGTON Not Available Start: 01-09-2024 End: 01-09-2024 ambulatory KENIA WASHINGTON Not Available Start: 01-02-2024 End: 01-02-2024 ambulatory MANDIE W WIGGINS Not Available Start: 12-16-2023 End: 12-16-2023 ambulatory COLÓN FAWWAD Not Available Start: 12-10-2023 End: 12-10-2023 ambulatory CHRISTOPHER FRANKIE Not Available Start: 12-05-2023 End: 12-05-2023 ambulatory CHRISTOPHER FRANKIE Not Available Start: 12-05-2023 End: 12-05-2023 ambulatory MANDIE W WIGGINS Not Available Start: 12-02-2023 End: 12-02-2023 ambulatory PALMA GUY Not Available Start: 11-26-2023 End: 11-26-2023 ambulatory COLÓN FAWWAD Not Available Start: 11-21-2023 End: 11-21-2023 ambulatory MANDIE W WIGGINS Not Available Start: 10-30-2023 End: 10-30-2023 ambulatory JOHN HADDAD Not Available Start: 10-15-2023 End: 10-15-2023 ambulatory COLÓN FAWWAD Not Available Start: 05-07-2023 End: 05-07-2023 ambulatory Key Patel Other [facility] Other Start: 05-07-2023 Office outpatient vi sit 15 minutes Key Patel [facility] Start: 02-19-2023 ambulatory [facility] Start: 11-08-2022 Office outpatient vi sit 15 minutes Chase Saldana [facility] Start: 11-08-2022 End: 11-08-2022 ambulatory Chase Saldana Other [facility] Other Start: 11-08-2022 End: 11-08-2022 Departed Referred PA-C Calley Les Work Phone: [facility] [place] Work Phone: Start: 04-26-2022 End: 04-26-2022 ambulatory Autumn Donell Other [facility] Other Start: 04-26-2022 Office outpatient vi sit 15 minutes Autumn Donell [facility] Start: 04-23-2022 End: 04-23-2022 ambulatory Autumn Donell Other [facility] Other Start: 04-23-2022 Office outpatient vi sit 15 minutes Autumn Donell [facility] Start: 04-03-2022 End: 04-03-2022 ambulatory COLÓN H FAWWAD Facility:[facility] Start: 03-27-2022 End: 03-27-2022 ambulatory Deb Simon Other [facility] Other Start: 03-27-2022 Office outpatient vi sit [...] vi sit 15 minutes Lucinda Salgado [facility] Start: 04-12-2018 End: 04-12-2018 Patient encounter [facility] Facility:[facility] Start: 04-11-2018 End: 04-12-2018 Emergency department patient visit [facility] Facility:[facility] Procedures Date Procedure Procedure Detail Performing Clinician Start: 05-11-2024 MR lumbar spine wo con Start: 05-11-2024 MRI of head Start: 03-05-2024 End: 03-05-2024 Needle emg ea extremty w/paraspinl area complete Kamla David DO Work Phone: Plan of Treatment Date Care Activity Detail Author Start: 10-07-2025 Adult BMI Screening Adult BMI Screen ing [facility] Start: 10-07-2025 Tobacco Screening Tobacco Screening [facility] Start: 05-28-2025 Adult BMI Screening Adult BMI Screen ing [facility] Start: 05-28-2025 Tobacco Screening Tobacco Screening [facility] Start: 12-09-2024 End: 12-09-2024 Patient encounter procedure 12/09/2024 2:00 PM EDT Office Visit [facility] [address] [place] [address] Palma Guy PA [address] [place] [address] [facility] Start: 11-18-2024 End: 11-18-2024 Patient encounter procedure 11/18/2024 2:00 PM EDT Office Visit [facility] [address] [place] [address] Jerry Carrera, MIREILLE [address], [address] [place] [address] [facility] Start: 10-23-2024 End: 10-23-2024 Admission to same day surgery center 10/23/2024 9:43 AM EDT - 10/23/2024 9:50 AM EDT Surgery [facility] [address] [place] [phone] Tray Vaca MD [address], [place] [id number] INJECTION BLOCK SACROILIAC JOINT [13021 (CPT )] [facility] Comment on above: INJECTION BLOCK SACR OILIAC JOINT [14912 (CPT )] Start: 10-23-2024 End: 10-23-2024 Inject si joint arthrgrphy&/anes/steroid w/estevan INJECTION BLOCK SACROILIAC JOINT Disorder of sacrum 10/23/2024 9:43 AM EDT [facility] Start: 10-23-2024 Subsequent hospital visit by physician 10/23/2024 9:43 AM EDT Hospital Encounter [facility] [address] [place] [phone] Tray Vaca MD [address] [facility], [place] [phone] [facility] Start: 10-06-2024 End: 10-06-2024 Patient encounter procedure 10/06/2024 9:00 AM EDT Office Visit [facility] [address] [place] [phone] Kenia Washington NP [address] [place] [phone] [facility] Start: 08-24-2024 End: 08-24-2024 Patient encounter procedure 08/24/2024 2:20 PM EST Office Visit [facility] [address] [place] [address] Kenia Washington, GI ASST [address] [place] [phone] [facility]GENI[facility] Start: 07-21-2024 End: 07-21-2024 Patient encounter procedure 07/21/2024 11:00 AM EST Office Visit [facility] [address] [place] [phone] Kenia Washington, GI ASST [address] [place] [address] [facility] [address] Start: 05-19-2024 End: 05-19-2024 Patient encounter procedure [facility] [address] Comment on above: Seizures (CMS/HCC) [...] migraine (CMS/HCC) Expected: 04/01/2024 (Approximate), Expires: 04/01/2025 [facility] [employer] Work Phone: Comment on above: Expected: 04/01/2024 (Approximate), Expires: 04/01/2025 Start: 04-01-2024 End: 04-01-2025 MR Lumbar spine WO contrast MR lumbar spine wo contrast Imaging Routine Chronic bilateral low back pain, unspecified whether sciatica present Paresthesia of both lower extremities Expected: 04/01/2024 (Approximate), Expires: 04/01/2025 [facility] [employer] Comment on above: Expected: 04/01/2024 (Approximate), Expires: 04/01/2025 Start: 04-01-2024 End: 04-01-2024 Patient encounter procedure [facility] Comment on above: Seizures (CMS/HCC) ( Primary Dx); Mood disorder (CMS/HCC); Episodic migraine (CMS/HCC); Chronic bilateral low back pain, unspecified whether sciatica present; Paresthesia of both lower extremities Start: 03-15-2024 COVID-19 Vaccine ( season) COVID-19 Vaccine () [facility] Start: 03-15-2024 Influenza [facility] Start: 03-05-2024 End: 03-05-2024 Patient encounter procedure 03/05/2024 11:00 AM EDT Procedure Visit [facility] [address] [place] [address] Kamla David DO [address] [place] [address] Arrived [facility] Comment on above: Arrived Start: 2023 Screening for malign ant neoplasm of cervix [facility] Start: 11-08-2022 Bacteria identified in Urine by Culture Urine Culture [facility] Start: 2014 Screening for malign ant neoplasm of cervix Pap Smear [facility] Start: 2012 DTaP,Tdap and Td Vaccines (1 - Tdap) DTaP,Tdap and Td Vaccines (1 - Tdap) [facility] Start: 2011 Adult BMI Follow Up Plan Adult BMI Follow Up Plan [facility] Start: 2005 [facility] 2 Extremit ies Neurology Routine Paresthesia of both lower extremities Ordered: 03/05/2024 [facility] Healthcare Work Phone: Comment on above: Ordered: 03/05/2024 Patient Education Panic Attack ED [facility] Work Phone: Patient referral [facility] Work Phone: Immunizations Immunization Date Immunization Notes Care Provider Fa cility 10-25-2023 influenza, injectable, quadrivalent, preservative free Kamla David DO Work Phone: [facility] 10-25-2023 influenza virus vaccine, unspecified formulation Christopher Frankie DO Work Phone: [facility] 04-23-2021 influenza, seasonal, injectable Christopher Frankie DO Work Phone: [facility] 03-28-2021 Moderna SARS-CoV-2 Vaccination Christopher Frankie DO Work Phone: [facility] 01-26-2020 Toradol per 15 mg Lucinda Dym ond Other [facility] [employer] Other 09-08-2019 Rocephin 500 mg Lucinda Dymon d Other [facility] [employer] Other 06-10-2018 Influenza, injectable, [facility] [place] Canine Kidney, preservative free, quadrivalent Christopher Frankie DO Work Phone: [facility] 12-11-2011 human papilloma viru s vaccine, quadrivalent Christopher Frankie DO Work Phone: [facility] 11-09-2011 human papilloma viru s vaccine, quadrivalent Christopher Frankie DO Work Phone: [facility] Payers Date Payer Category Payer Medicaid [id number] 2022 Medicaid [id number] 2. [id number] 2018 Unknown 1993 Unknown [id number] 2.16.84 0.1.806661.3.579.2.593 1993 Unknown [id number] 2.16.84 0.1.672319.3.579.2.593 1993 Unknown [id number] 2.16.84 0.1.998639.3.579.2.593 1993 Unknown [id number] 2.16.84 0.1.238033.3.579.2.593 1993 Unknown [id number] 2.16.84 0.1.057965.3.579.2.593 1993 Unknown [id number] 2.16.84 0.1.219774.3.579.2.593 1993 Unknown [id number] 2.16.84 0.1.942709.3.579.2.593 1993 Unknown [id number] 2.16.84 0.1.975693.3.579.2.593 1993 Unknown [id number] 2.16.84 0.1.888675.3.579.2.593 1993 Unknown [id number] 2.16.84 0.1.388479.3.579.2.593 1993 Unknown [id number] 2.16.84 0.1.980483.3.579.2.593 1993 Unknown [id number] 2.16.84 0.1.110772.3.579.2.593 1993 Unknown [id number] 2.16.84 0.1.286816.3.579.2.593 1993 Unknown [id number] 2.16.84 0.1.529337.3.579.2.593 1993 Unknown [id number] 2.16.8 40.1.736463.3.579.2.1286 1993 Unknown [id number] 2.16. 840.1.996204.3.579.2.196 1993 Unknown [id number] 2.16. 840.1.028907.3.579.2.196 1993 Unknown [id number] 2.16.84 0.1.288792.3.579.2.1259 1993 Unknown [id number] 2.16.84 0.1.464383.3.579.2.1259 1993 Unknown [id number] 2.16.84 0.1.838266.3.579.2.1259 1993 Unknown [id number] 2.16.84 0.1.042735.3.579.2.1259 1993 Unknown [id number] 2.16.84 0.1.640627.3.579.2.1259 1993 Unknown [id number] 2.16.84 0.1.506246.3.579.2.1259 1993 Unknown [id number] 2.16.84 0.1.320932.3.579.2.1259 1993 Unknown [id number] 2.16.84 0.1.043794.3.579.2.9 1993 Unknown [id number] 2.16.84 0.1.934284.3.579.2.1259 1993 Unknown [id number] 2.16.84 0.1.965313.3.579.2.1259 1993 Unknown [id number] 2.16.84 0.1.537388.3.579.2.1259 1993 Unknown [id number] 2.16.84 0.1.734133.3.579.2.9 1993 Unknown [id number] 2.16.84 0.1.368847.3.579.2.1259 1993 Unknown [id number] 2.16.84 0.1.090453.3.579.2.1259 1993 Unknown [id number] 2.16.84 0.1.594407.3.579.2.1259 1993 Unknown [id number] 2.16.84 0.1.590112.3.579.2.9 1993 Unknown [id number] 2.16.84 0.1.781658.3.579.2.1259 1993 Unknown [id number] 2.16.84 0.1.001327.3.579.2.1259 1993 Unknown [id number] 2.16.84 0.1.982882.3.579.2.1259 1993 Unknown [id number] 2.16.84 0.1.135515.3.579.2.1259 1993 Unknown [id number] 2.16. 840.1.847374.3.579.2.1286 1993 Unknown [id number] 2.16. 840.1.522587.3.579.2.1286 1993 Unknown [id number] 2.16. 840.1.674806.3.579.2.1286 1993 Unknown [id number] 2.16. 840.1.661456.3.579.2.1286 1993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 OF OCCUPATIONAL HEALTH-C Attending Provider Active Start: March 18, 2024 End: March 18, 2024 Team Status: Inactive Member Role Status Dates Chase Saldana PA-C Attending Provider Active Team Status: Active Member Role Status Dates NON STAFF Primary Care Provider Active Start: February 07, 2024 Gerald Wagner MD Attending Provider Active Start: February 07, 2024 Rail Specialist Relationship Specialty Start Date End Date Shaikh Langley MD [address] [place] [phone] PCP - General Internal Medicine 04/01/24 Kamla David DO [address] [place] [phone] Referring Physician Neurology 05/18/24 Kenia Washington NP [address] [place] [phone] Nurse Practitioner Neurology 05/18/24 Rail Specialist Relationship Specialty Start Date End Date Shaikh Langley MD [address] [place] [phone] PCP - General Internal Medicine 04/01/24 Kamla David DO [address] [place] [phone] Referring Physician Neurology 05/18/24 Kenia Washington NP [address] [place] [phone] Nurse Practitioner Neurology 05/18/24 Rail Specialist Relationship Specialty Start Date End Date Shaikh Langley MD [address] [place] [phone] PCP - General Internal Medicine 04/01/24 Rail Specialist Relationship Specialty Start Date End Date Shaikh Langley MD [address] [place] [phone] PCP - General Internal Medicine 04/01/24 Rail Specialist Relationship Specialty Start Date End Date Arvin Hardy MD [address] [place] [phone] PCP - General Family Medicine 02/12/24 Mary Jane Davila NP [address] [place] [address] Nurse Practitioner Family Medicine 02/12/24 Rail Specialist Relationship Specialty Start Date End Date Arvin Hardy MD [address] [place] [phone] PCP - General Family Medicine 02/12/24 Mary Jane Davila NP [address] [place] [address] Nurse Practitioner Family Medicine 02/12/24 Rail Specialist Relationship Specialty Start Date End Date Arvin Hardy MD [address] [place] [phone] PCP - General Family Medicine 02/12/24 Mary Jane Davila NP [address] [place] [phone] Nurse Practitioner Family Medicine 02/12/24 Rail Specialist Relationship Specialty Start Date End Date Shaikh Langley MD [address] [place] [phone] PCP - General Internal Medicine 04/01/24 Kamla David DO [address] [phone] Referring Physician Neurology 05/18/24 Kenia Washington NP [address] [phone] Nurse Practitioner Neurology 05/18/24 Rail Specialist Relationship Specialty Start Date End Date Bernice Wolff, INTELLECTUAL PROPERTY COUNSEL-DIRECTOR OF OCCUPATIONAL HEALTH [facility] [place] [address] PCP - General Family Medicine 04/28/24 Rail Specialist Relationship Specialty Start Date End Date Shaikh Langley MD [address] [place] [phone] PCP - General Internal Medicine 04/01/24 Kamla David DO [address] [address] Referring Physician Neurology 05/18/24 Kenia Washington NP [address] [phone] Nurse Practitioner Neurology 05/18/24 Rail Specialist Relationship Specialty Start Date End Date Shaikh Langley MD [address] [place] [address] PCP - General Internal Medicine 04/01/24 Kamla David DO [address] [phone] Referring Physician Neurology 05/18/24 Kenia Washington NP [address] [phone] Nurse Practitioner Neurology 05/18/24 Rail Specialist Relationship Specialty Start Date End Date [facility], [address] [place], [place] PCP - General Family Medicine 08/12/24 [...] BE BASED ON THE PRIMARY CLINICAL RECORDS. [facility] [employer] [facility]. provides no warranty or guarantee of the accuracy or completeness of information in this document.
--- OUTSIDE RECORDS SUMMARY | 2025-01-25 00:21 | XMS_ITS | Encounter Summary ---
Author Organization [employer] [facility] tem Address [id number] [address] [place] [address] Care Team Providers Care Sandwich Machine Operator Name Role Phone Services, [facility] Primary Care Provider Encounter Details Date Type Department Care Team (Latest Contact Info) Description 01/22/2025 Travel Social History Tobacco Use Types Packs/Day Years [...] on filedocumented in this encounter Care Teams Sandwich Machine Operator Relationship Specialty Start Date End Date [facility], [facility] [address] [place], [place] PCP - General Family Medicine 08/12/24 documented as of this encounter
[2025-01-25 00:38] VITALS: BP 115/90; PULSE 108; TEMP 36.4; O2SAT 97; BMI 35.5
--- NOTE | 2025-01-25 01:42 | ED.SKABFB1 ---
HPI - Skin/Abscess/Foreign Bdy General Chief complaint: Skin/Abscess/Foreign Body Stated complaint: BURNING ON PRIVATE AREA Time Seen by Provider: 01/25/25 01:15 Source: patient Mode of arrival: walk-in Limitations: no limitations History of Present Illness HPI narrative: This 29-year-old female presents for evaluation of irritation to her vaginal area. The patient states she was using Campbell on her legs and was wiping the near off with a washcloth when she wiped her vaginal area with the same washcloth that the nare had been on. Since then she has had pain and burning in the vaginal area. She states it hurts where the baby comes out she denies the possibility of . She has no abdominal pain or back pain. Related Data Home Medications ?Medication ?Instructions ?Recorded ?Confirmed oxcarbazepine 300 mg tablet 300 mg PO BID 11/26/23 09/14/24 cholecalciferol (vitamin D3) 10 10 mcg PO DAILY 04/24/24 09/14/24 mcg (400 unit) capsule (Vitamin D3) rizatriptan 5 mg tablet 5 mg PO Q2H PRN migraine headache 04/24/24 09/14/24 epinephrine 0.15 mg/0.3 mL 0.3 ml IM PRN 05/20/24 09/14/24 injection,auto-injector tizanidine 4 mg tablet 4 mg PO Q12H PRN muscle spasticity 07/27/24 09/14/24 Previous Rx's ?Medication ?Instructions ?Recorded ibuprofen 600 mg tablet 600 mg PO QID PRN pain #20 tabs 06/12/24 ketorolac 10 mg tablet 10 mg PO TID PRN pain #10 tabs 07/02/24 methocarbamol 750 mg tablet 750 mg PO Q6H PRN pain #30 tabs 10/10/24 nabumetone 750 mg tablet 750 mg PO BID PRN pain #14 tabs 10/10/24 Allergies Allergy/AdvReac Type Severity Reaction Status Date / Time coconut oil Allergy Severe Rash Verified 01/25/25 01:16 latex Allergy Severe Anaphylaxis Verified 01/25/25 01:16 adhesive Allergy Rash Verified 10/29/24 23:20 Sulfa (Sulfonamide AdvReac Mild Hives Verified 10/29/24 23:20 Antibiotics) Review of Systems ROS Status of ROS 10 or more systems reviewed and unremarkable except as noted in history and below [facility] Medical History (Updated 01/25/25 @ 01:42 by Anrdeia Alfaro MD) Seizures ?R56.9 - Unspecified convulsions (ICD-10) Chipped tooth ?S02.5XXA - Fracture of tooth (traumatic), initial encounter for closed fracture (ICD-10) Former smoker, stopped smoking in distant past ?Z87.891 - Personal history of nicotine dependence (ICD-10) Asthma ?J45.909 - Unspecified asthma, uncomplicated (ICD-10) High blood cholesterol level ?E78.00 - Pure hypercholesterolemia, unspecified (ICD-10) Surgical History H/O dilation and curettage ?Z98.890 - Other specified postprocedural states (ICD-10) History of laparoscopic cholecystectomy ?Z90.49 - Acquired absence of other specified parts of digestive tract (ICD-10) History of tonsillectomy and adenoidectomy ?Z90.89 - Acquired absence of other organs (ICD-10) Social History Smoking status: Former smoker Little interest or pleasure in doing things: not at all Feeling down, depressed, or hopeless: not at all Exam Narrative Exam Narrative: Vital signs and Nursing Notes reviewed: Patient is afebrile, she is mildly tachycardic with a pulse of 108, she has normal blood pressure, she is not hypoxic with pulse ox of 97% on room air General: Awake, alert, oriented, obese female, no acute distress, lying comfortably on the stretcher HEENT: Normocephalic atraumatic, mucous membranes are moist and pink, eyes are clear Chest: Lungs are clear to auscultation with good air entry, there is no wheezing rhonchi or rales appreciated no accessory muscle use, patient is speaking in complete sentences-no chest wall tenderness to palpation CVS: Regular rate and rhythm S1-S2, no murmurs rubs or gallops, pulses are brisk and equal bilaterally ABD: Soft, nondistended, nontender, no rebound guarding or rigidity, bowel sounds are normal, no pulsatile masses appreciated : There is no redness, swelling or notable irritation or inflammation to the labia majora or minora or to the vaginal introitus, there is a small amount of clear discharge coming from the introitus. Extremities: Moving all extremities, no lower extremity tenderness or swelling noted, negative Homans' sign, pulses are brisk and equal bilaterally Skin: Normal in appearance without rash,pallor, petechiae or purpura Neuro: No focal deficits Constitutional Vital Signs, click to edit/add: Last Vital Signs Temp 97.6 F 01/25/25 00:38 Pulse 108 H 01/25/25 00:38 Resp 16 01/25/25 00:38 BP 115/90 01/25/25 00:38 Pulse Ox 97 01/25/25 00:38 O2 Del Method Room Air 01/25/25 00:38 Course Vital Signs Vital signs: Vital Signs Temperature 97.6 F 01/25/25 00:38 Pulse Rate 108 H 01/25/25 00:38 Respiratory Rate 16 01/25/25 00:38 Blood Pressure 115/90 01/25/25 00:38 Pulse Oximetry 97 01/25/25 00:38 Oxygen Delivery Method Room Air 01/25/25 00:38 Temperature 97.6 F 01/25/25 00:38 Pulse Rate 108 H 01/25/25 00:38 Respiratory Rate 16 01/25/25 00:38 Blood Pressure 115/90 01/25/25 00:38 Pulse Oximetry 97 01/25/25 00:38 Oxygen Delivery Method Room Air 01/25/25 00:38 MDM - Skin/Abscess/Foreign Bdy MDM Narrative Medical decision making narrative: This 29-year-old female presents for evaluation of pain in her vaginal area after accidentally wiping it with a washcloth that she had used to wipe Campbell off of her legs. She states she is allergic to 2 of the components of the hair loss cream. She does not have any redness swelling or other notable abnormality of her vaginal area. Both labia are shaved completely. There is a small shave burn on the right labia majora. There is no redness, swelling or other notable abnormality to the vaginal introitus. There was a small amount of clear discharge. She was medicated with a dose of ibuprofen and topical mucosal lidocaine was used to help ease the pain in her vaginal area. Urinalysis was ordered and is negative for infection. She will be discharged home with recommendation for sitz bath's and topical analgesics such as Pinxav or Vagisil as needed. Lab Data Labs: Lab Results 01/25/25 Range/Units 01:45 Urine Color Yellow (YELLOW) Urine Clarity Clear (CLEAR) Urine pH 5.5 (5.0-9.0) Ur Specific [place] >=1.030 A (1.005-1.025) Urine Protein Negative (NEG/TRACE) mg/dL Urine Glucose (UA) Negative (NEGATIVE) mg/dL Urine Ketones Trace A (NEGATIVE) mg/dL Urine Occult Blood Negative (NEGATIVE) Urine Nitrite Negative (NEGATIVE) Urine Bilirubin Negative (NEGATIVE) Urine Urobilinogen 0.2 (0.2-1.0) EU/dL Ur Leukocyte Esterase Negative (NEGATIVE) Discharge Plan Discharge Chief Complaint: Skin/Abscess/Foreign Body Clinical Impression: Vaginal irritation Patient Disposition: Home, Self-Care Prescriptions / Home Meds: No Action oxcarbazepine 300 mg tablet 300 mg PO BID epinephrine 0.15 mg/0.3 mL auto-injector 0.3 ml IM PRN tizanidine 4 mg tablet 4 mg PO Q12H PRN (Reason: muscle spasticity) nabumetone 750 mg tablet 750 mg PO BID PRN (Reason: pain) Qty: 14 0RF methocarbamol 750 mg tablet 750 mg PO Q6H PRN (Reason: pain) Qty: 30 0RF rizatriptan 5 mg tablet 5 mg PO Q2H PRN (Reason: migraine headache) cholecalciferol (vitamin D3) [Vitamin D3] 10 mcg (400 unit) capsule 10 mcg PO DAILY ibuprofen 600 mg tablet 600 mg PO QID PRN (Reason: pain) Qty: 20 0RF ketorolac 10 mg tablet 10 mg PO TID PRN (Reason: pain) Qty: 10 0RF Print Language: French Referrals: [facility] [Primary Care Provider, Unknown] - 1 week
[2025-01-25 02:08] LABS: Glucose Urine UA NEGATIVE (NEGATIVE)
[2025-01-25] MEDS: ONDANSETRON 4 MG RAPDIS TABLET SL (02:20)
[2025-01-25] MEDS: IBUPROFEN 600 MG TABLET PO (02:20)
[2025-01-25] MEDS: LIDOCAINE VISCOUS 2% 15 ML SOLUTION TOPICAL (02:20)
[2025-01-25 02:24] LABS: Cast Seen? SEEN #/LPF (NONE SEEN); Crystals Seen? None Seen #/HPF (None Seen); Urine Culture Indicated NO
== END 2025-01-25 02:30 | disposition home or self-care (01) ==
PROVIDERS: Emergency Provider Emergency Medicine
DX: N89.8 Other specified noninflammatory disorders of vagina (principal); Z90.49 Acquired absence of other specified parts of digestive tract; Z87.891 Personal history of nicotine dependence
CPT/HCPCS: 81001; 99283; Q0162